=== PATIENT | female | born 1940 | race Caucasian/White ===

== ENCOUNTER 2016-10-19 11:03 | Emergency (ER) | payer OTHER, MEDICARE ==
[~2016-10-19] VITALS: Ht 162.6 cm; Wt 87.5 kg
[~2016-10-19 11:03] MED LIST: ASPI-391 PO; ATV/1 PO; CHOL100010 PO; COEN1CAP17 PO; CRG25 PO; DIPH1TAB87 PO; GABA800T PO; LPT40 PO; LSN40 PO; MAGN1CAP2 PO; METF-384 PO; METF1000 PO; NAPR1TAB9 PO; OMEGCAP2 PO; OMEP20TA14 PO; SALONPAS TOP; VALE250C2 PO
[2016-10-19 11:13] VITALS: TEMP 36.9; Ht 162.6 cm; Wt 87.5 kg
--- NOTE | 2016-10-19 12:04 | DIAGNOSTIC IMAGING REPORT ---
LEFT HAND 3 VIEWS HISTORY: Left hand pain. COMPARISON: None. FINDINGS: There is no fracture or dislocation. Mild soft tissue swelling at the fifth digit. 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 No radiopaque foreign bodies. IMPRESSION: No fractures. Electronically signed by: Ori Adhikari M.D. 10/19/2016 12:01 PM Dictated Date/Time: 10/19/2016 12:00 PM
--- NOTE | 2016-10-19 12:13 | EMERGENCY ROOM VISIT NOTE ---
ED Visit Note First contact with patient: 11:27 Fifth finger pain was fully evaluated by Dominic Mireles PA-C. Please see his note. I also independently evaluated the patient. X-rays reveal no fracture.
[2016-10-19 12:21] VITALS: BP 149/93; PULSE 81; O2SAT 95
--- NOTE | 2016-10-20 06:56 | EMERGENCY ROOM VISIT NOTE ---
ED Visit Note First contact with patient: 11:27 Chief Complaint: Left little finger pain. History of Present Illness: Ms. Vargas is a 75-year-old white female who ambulates into the ED accompanied by her complaining of left little finger pain at the DIP joint and distal phalanx. Patient reports yesterday she accidentally caught her finger in a door frame while closing a door. Since that time she reports she's been having a throbbing discomfort from the DIP joint extending distally through the distal phalanx of the left little finger. She also reports that she has noted that the finger has been turning black and blue. She rates her throbbing discomfort 2/10. The pain is nonradiating. The pain worsens with palpation in all movements of the DIP joint. She has not identified any alleviating factors related to the pain. She reports she has not taken any medications for pain prior to arrival at the hospital. Associated with her pain she reports there is a mild tingling sensation in the distal phalanxes. She denies any associated symptoms including other finger pain, previous significant injuries or surgeries. Review of Systems: As noted above in history of present illness. Past Medical History: Diabetes, hypertension, gastric reflux, status post hysterectomy and unspecified back surgery. Current Medications: Medications Dose Route/Sig Max Daily Dose Days Date Category Benadryl Allergy (Diphenhydramine Hcl) 25 Mg Tab 1 Tab PO QAM PRN 02/21/16 Reported Valerian (Valerian (Valeriana Officinali) 250 Mg Cap 2 Cap PO QAM 02/21/16 Reported Aleve (Naproxen) 220 Mg Tab 2 Tabs PO BID 02/21/16 Reported Ativan (Lorazepam) 1 Mg Tab 2 Tab PO QAM PRN 02/21/16 Reported Excedrin Extra Strength (Obglyiz-Xomlsktjsyvvh-Wjeeajmb) 1 Tab Tab 2 Tab PO BID PRN 02/21/16 Reported Vitamin D (Cholecalciferol) 1,000 Inter.unit Tab 1,000 Inter.unit PO QAM 02/21/16 Reported Neurontin (Gabapentin) 800 Mg Tab 800 Mg PO BID 02/21/16 Reported Lisinopril 40 Mg Tab 1 Tab PO QAM 02/21/16 Reported Co Q 10 (Coenzyme Q10 (Ubidecarenone)) 100 Mg Cap 1 Cap PO QAM 01/04/16 Reported Fish Oil ([place]-3 Fatty Acids) 1 Cap Cap 2,400 Mg PO QAM 10/15/13 Reported Glucophage (Metformin Hcl) 1,000 Mg Tab 500 Mg PO W/LUNCH 10/15/13 Reported Prilosec Otc (Omeprazole Magnesium) 20 Mg Tab 20 Mg PO QAM 10/15/13 Reported Carvedilol 25 Mg Tab 25 Mg PO BID 10/15/13 Reported Glucophage (Metformin Hcl) 1,000 Mg Tab 1,000 Mg PO BIDM 10/15/13 Reported Atorvastatin Calcium (Atorvastatin) 40 Mg Tab 1 Tab PO QAM 10/15/13 Reported Allergies to Medications: Oxycodone. Social History: Patient is currently retired; she lives with her and feels safe in her home environment; she denies tobacco and alcohol use. Physical Examination: Vital Signs: Date Time Temp Pulse Resp B/P Pulse Ox O2 Delivery O2 Flow Rate FiO2 10/19/16 12:21 81 149/93 95 10/19/16 11:13 36.9 56 20 126/64 96 Room Air GENERAL: 75-year-old female in mild distress due to pain, nontoxic-appearing, afebrile and hemodynamically stable. NEUROLOGICAL: Awake, alert and oriented to person, place and time. Answering questions appropriately and following commands. Good hand eye coordination. SKIN: Warm, dry and pink. Left Little Finger: Over the posterior aspect of the DIP joint of the finger there is a small superficial laceration measuring less than 1 cm. Throughout the distal phalanx there is a contusion on both the anterior and posterior aspect. LEFT HAND: No gross bony deformity. Soft tissue injuries as noted above under SKIN. Mild tenderness over the DIP joint and the distal phalanx without palpable bony deformity or crepitus. She had difficulty flexing and extending the DIP joint because of pain. Capillary refill was brisk. There is no subungual hematoma. She was able to distinguish light sensations throughout the distal phalanx. The rest of the finger was normal with no pain in the MCP or PIP joint. No other palpable tenderness throughout the hand. The rest of the hand was warm and pink and capillary refill is brisk. ED Course: Patient is assessed as noted above. Patient was offered pain medication and refused. Left hand x-rays: Were read by myself and the radiologist showing no acute fractures. Patient superficial laceration was cleansed with antibacterial soap and water and a bacitracin dressing was applied. Then the entire finger was placed in a metal splint. Patient's case was reviewed with Dr. Clay; he independently assessed the patient we agreed on diagnostic approach, treatment, disposition and plan. Patient were educated about tonight's findings and instructed on her treatment plan; they verbalizes understanding and agreement with the plan. Clinical Impression: Left Little finger contusion and superficial laceration. Disposition: Patient discharged home in stable condition accompanied by her ; prior to departure she was reassessed and subjectively reported that she was feeling worse and rated her discomfort 5/10. Plan: Wound care, signs of infection and comfort measures were discussed with the patient and her . Patient was encouraged to follow-up with her family physician for recheck in 4- 5 days. Patient was encouraged return the ED for any signs of infection, uncontrolled pain, finger numbness/weakness or any new/concerning symptoms.
[2017-04-15] MEDS ORDERED: [UNRECOGNIZED DRUG - CODE] PO (13:30)
== END 2016-10-19 12:22 | disposition home or self-care (01) ==
LOC: C.EDB 11:04 → C.EDD 12:22
DX: S60.00XA Contusion of unspecified finger without damage to nail, initial encounter (principal); S60.417A Abrasion of left little finger, initial encounter; W23.0XXA Caught, crushed, jammed, or pinched between moving objects, initial encounter; E11.9 Type 2 diabetes mellitus without complications; I10 Essential (primary) hypertension; K21.9 Gastro-esophageal reflux disease without esophagitis; Z79.899 Other long term (current) drug therapy

== ENCOUNTER 2017-04-09 17:44 | Emergency (ER) | payer OTHER, MEDICARE ==
[~2017-04-09 17:44] MED LIST changes: +DIPH1TAB PO; -DIPH1TAB87 PO; -MAGN1CAP2 PO; -SALONPAS TOP
[2017-04-09 17:50] VITALS: Ht 160 cm
--- NOTE | 2017-04-09 18:44 | EMERGENCY ROOM VISIT NOTE ---
History First contact with patient: 18:43 Chief Complaint: ABNORMAL LABS Stated Complaint: HIGH POTASSIUM- REFERRED History of Present Illness The patient is a 76 year old female with a history of HTN and DMI who presents to the Emergency Room after referral from from PCP for a potassium of 6.5. The patient states that she denies any chest pain, SOB, fever, abdominal pain. She has never had an elevated potassium in the past and has no history of any CKD. 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 She notes her sugar has been running in the mid 200s recently. Review of Systems A 10 point review of systems was completed and negative aside from above Past Medical/Surgical History Medical Problems: (1) Diabetes (2) GERD (gastroesophageal reflux disease) (3) Hypertension (4) Kidney stones Surgical Problems: (1) History of back surgery (2) Hx of colonoscopy with polypectomy Family History FHx: diabetes FHx: heart disease FHx: hypertension Social History Smoking Status: Never Smoker Alcohol Use: none Drug Use: none Marital Status: Housing Status: lives with family Occupation Status: retired Current/Historical Medications Scheduled Atorvastatin (Lipitor), 40 MG PO DAILY Carvedilol (Carvedilol), 25 MG PO BID Cholecalciferol (Vitamin D3), 1 TAB PO DAILY Coenzyme Q10 (Ubidecarenone) (Co Q 10), 1 CAP PO QAM Dicyclomine Hcl (Bentyl), 10 MG PO QID Gabapentin (Neurontin), 800 MG PO TID Lisinopril (Lisinopril), 1 TAB PO QAM Lorazepam (Ativan), 1 TAB PO TID Metformin Hcl (Glucophage), 1,000 MG PO BIDM Metformin Hcl (Glucophage), 500 MG PO W/LUNCH Naproxen (Aleve), 2 TABS PO BID [place]-3 Fatty Acids (Fish Oil), 2 CAP PO QAM Omeprazole Magnesium (Prilosec Otc), 20 MG PO QAM Valerian (Valeriana Officinali (Valerian), 2 CAP PO QAM Scheduled PRN Zeluncc-Atvlrithyaeqc-Cfoffify (Excedrin Extra Strength), 2 TAB PO BID PRN for Pain Diphenhydramine Hcl (Benadryl Allergy), 1 TAB PO QAM PRN for ALLERGIES Allergies oxycodone Physical Exam Vital Signs Date Time Temp Pulse Resp B/P (MAP) Pulse Ox O2 Delivery O2 Flow Rate FiO2 04/09/17 21:42 162/75 04/09/17 21:36 132/82 04/09/17 21:35 96 18 148/78 97 04/09/17 21:12 82 20 189/80 97 Room Air 04/09/17 17:50 36.9 82 20 158/80 94 Room Air Physical Exam General: ambulatory however requires assistance, not in acute distress Skin: no rashes noted, no suspicious lesions, no areas of inflammations/ lacerations/ erythema noted CVS: S1/ S2 noted, RRR, no rubs/ murmurs noted, no cyanosis RVS: Clear throughout bilaterally, not in acute respiratory distress, no wheezing/ rales/ crackles noted ENT: no erythema/ injection/ ulcerations noted in the pharynx, no lymphadenopathy, dentures noted Neck: e, inspection WNL, full ROM of neck ABD: BSx4, no pain/ tenderness on palpation, no organomegaly MSK: inspection of all limbs WNL, motor intact in all limbs, no swelling/ pain on palpation of joints NVS: PERRL, EOMI Lymph: No lymphadenopathy palpable Medical Decision & Procedures Laboratory Results 04/09/17 19:05 Red Blood Count 4.41, Mean Corpuscular Volume 86.6, Mean Corpuscular Hemoglobin 27.7, Mean Corpuscular Hemoglobin Concent 31.9, Mean Platelet Volume 10.2, Neutrophils (%) (Auto) 47.1, Lymphocytes (%) (Auto) 33.8, Monocytes (%) (Auto) 8.8, Eosinophils (%) (Auto) 9.5, Basophils (%) (Auto) 0.4, Neutrophils # (Auto) 3.58, Lymphocytes # (Auto) 2.57, Monocytes # (Auto) 0.67, Eosinophils # (Auto) 0.72, Basophils # (Auto) 0.03 04/09/17 19:05 Test 04/09/17 19:05 White Blood Count 7.60 K/uL (4.8-10.8) Red Blood Count 4.41 M/uL (4.2-5.4) Hemoglobin 12.2 g/dL (12.0-16.0) Hematocrit 38.2 % (37-47) Mean Corpuscular Volume 86.6 fL (80-100) Mean Corpuscular Hemoglobin 27.7 pg (25-34) Mean Corpuscular Hemoglobin Concent 31.9 g/dl (32-36) Platelet Count 224 K/uL (130-400) Mean Platelet Volume 10.2 fL (7.4-10.4) Neutrophils (%) (Auto) 47.1 % Lymphocytes (%) (Auto) 33.8 % Monocytes (%) (Auto) 8.8 % Eosinophils (%) (Auto) 9.5 % Basophils (%) (Auto) 0.4 % Neutrophils # (Auto) 3.58 K/uL (1.4-6.5) Lymphocytes # (Auto) 2.57 K/uL (1.2-3.4) Monocytes # (Auto) 0.67 K/uL (0.11-0.59) Eosinophils # (Auto) 0.72 K/uL (0-0.5) Basophils # (Auto) 0.03 K/uL (0-0.2) RDW Standard Deviation 48.0 fL (36.4-46.3) RDW Coefficient of Variation 15.2 % (11.5-14.5) Immature Granulocyte % (Auto) 0.4 % Immature Granulocyte # (Auto) 0.03 K/uL (0.00-0.02) Anion Gap 8.0 mmol/L (3-11) Estimated GFR () 81.1 Estimated GFR (Non- 70.0 BUN/Creatinine Ratio 24.7 (10-20) Calcium Level 9.4 mg/dl (8.5-10.1) Magnesium Level 1.6 mg/dl (1.8-2.4) Medications Administered Medications (Trade) Dose Ordered Sig/Jose Route Start Time Stop Time Status Last Admin Dose Admin Hydralazine HCl (HydrALAZINE INJ) 10 mg NOW ONCE IV. 04/09/17 21:15 04/09/17 21:16 DC 04/09/17 21:00 10 MG Hydralazine HCl (HydrALAZINE INJ) 10 mg NOW STAT IV. 04/09/17 21:19 04/09/17 21:20 DC 04/09/17 21:18 10 MG ECG Indication: other Rate (beats per minute): 77 Rhythm: normal sinus Findings: no acute ischemic change, no ectopy Change: apr 2016- compared to previous no PVC noted ED Course 1844: Patient assessed and evaluated by resident 1999: Discussed results with patient and agreeable to d/c 2029: Contacted by RN that systolic bp is > 200 prior to discharge; Hydralazine 10 mg IV ordered 2114: Improvement of systolic to 189, repeat hydralazine 10 mg IV x 1 2144: Reassessment of systolic bp is 162, discharged home as discussed previously with emphasis on bp check Medical Decision Differential diagnosis includes but is not limited to Hyperkalemia secondary to DKA, VALERIY, hemolysis of blood specimen. This is a 76 yo f that is here for evaluation for Hyperkalemia. The patient's blood was redrawn as results could have been hemolyze. It was reassuring as the EKG did not reveal any peaked T waves. The CBC did not reveal any anemia or leukocytosis. The BMP was also reassuring as there was no VALERIY noted and the patient's K was actually 4.9. No intervention needed at this time. We discussed discharge and patient was agreeable. She will be following up with PCP this week. Blood Pressure Screening Patient's blood pressure: Elevated blood pressure Blood pressure disposition: Referred to PCP Impression Primary Impression: Hyperkalemia Additional Impression: HTN (hypertension) Departure Information Referrals Omar Hoff M.D. (MEDICAL) (PCP) Patient Instructions [facility] Problem Qualifiers
--- NOTE | 2017-04-09 19:24 | EMERGENCY ROOM VISIT NOTE ---
ED Visit Note First contact with patient: 18:43 Resident Physician Supervision Note: I interviewed and examined the patient. Discussed with Dr. Weathers and agree with findings and plan as documented in the note. Documented By: Onesimo Chavez Problem List Medical Problems: (1) Diabetes Status: Chronic (2) GERD (gastroesophageal reflux disease) Status: Chronic (3) Hypertension Status: Chronic (4) Kidney stones Status: Chronic Surgical Problems: (1) History of back surgery Status: Resolved (2) Hx of colonoscopy with polypectomy Status: Resolved Current/Historical Medications Scheduled Atorvastatin (Atorvastatin Calcium), 1 TAB PO QAM Carvedilol (Carvedilol), 25 MG PO BID Cholecalciferol (Vitamin D), 1,000 INTER.UNIT PO QAM Coenzyme Q10 (Ubidecarenone) (Co Q 10), 1 CAP PO QAM Gabapentin (Neurontin), 800 MG PO BID Lisinopril (Lisinopril), 1 TAB PO QAM Metformin Hcl (Glucophage), 1,000 MG PO BIDM Metformin Hcl (Glucophage), 500 MG PO W/LUNCH Naproxen (Aleve), 2 TABS PO BID [place]-3 Fatty Acids (Fish Oil), 2,400 MG PO QAM Omeprazole Magnesium (Prilosec Otc), 20 MG PO QAM Valerian (Valeriana Officinali (Valerian), 2 CAP PO QAM Scheduled PRN Sfpkikh-Lxdxpqmamotdw-Yewbojyp (Excedrin Extra Strength), 2 TAB PO BID PRN for Pain Diphenhydramine Hcl (Benadryl Allergy), 1 TAB PO QAM PRN for ALLERGIES Lorazepam (Ativan), 2 TAB PO QAM PRN for NERVE PAIN Allergies Coded Allergies: Oxycodone (Unverified Allergy, Unknown, SEDATION, 10/19/16) Vital Signs Date Time Temp Pulse Resp B/P (MAP) Pulse Ox O2 Delivery O2 Flow Rate FiO2 04/09/17 17:50 36.9 82 20 158/80 94 Room Air Laboratory Results Test 04/09/17 19:05 Departure Information Referrals Omar Hoff M.D. (MEDICAL) (PCP) Patient Instructions [facility]
[2017-04-09] MEDS ORDERED: DICY10CA55 PO (19:47)
[2017-04-09] MEDS ORDERED: CHOL1000 PO (19:47)
[2017-04-09] MEDS ORDERED: ATOR-24 PO (19:47)
[2017-04-09 19:48] LABS: POTASSIUM 4.9 mmol/L (3.5-5.1); SODIUM 141 mmol/L (136-145)
[2017-04-09 19:50] LABS: MAGNESIUM 1.6 mg/dl (1.8-2.4)
[2017-04-09 19:51] LABS: BASO % 0.4 %; BASO ABS # 0.03 K/uL (0-0.2); BLOOD UREA NITROGEN 20 mg/dl (7-18); BUN/CREATININE RATIO 24.7 (10-20); CALCIUM 9.4 mg/dl (8.5-10.1); CARBON DIOXIDE 26 mmol/L (21-32); CHLORIDE 107 mmol/L (98-107); COMPLETE YES; CREATININE 0.82 mg/dl (0.60-1.20); EOS % 9.5 %; GLUCOSE 108 mg/dl (70-99); HEMATOCRIT 38.2 % (37-47); IG% 0.4 %; LYMPH % 33.8 %; LYMPH ABS # 2.57 K/uL (1.2-3.4); MEAN CELL VOLUME 86.6 fL (80-100); MEAN CORPUSCULAR HEMOGLOBIN 27.7 pg (25-34); MEAN CORPUSCULAR HGB CONC 31.9 g/dl (32-36); MEAN PLATELET VOLUME 10.2 fL (7.4-10.4); MONO % 8.8 %; NEUT % 47.1 %; PLATELET COUNT 224 K/uL (130-400); RED BLOOD COUNT 4.41 M/uL (4.2-5.4)
[2017-04-09] MEDS ORDERED: HydrALAZINE HCL 20 MG/ML VIAL IV. STA ×2 (20:31→21:19)
[2017-04-09] MEDS ORDERED: HydrALAZINE HCL 20 MG/ML VIAL IV. ONE (21:15)
[2017-04-09] MEDS ORDERED: ADVIN10/60 INH (22:00)
[2017-04-09 22:03] VITALS: BP 162/75; PULSE 96; TEMP 36.9; O2SAT 97
[2017-04-15] MEDS ORDERED: [UNRECOGNIZED DRUG - CODE] PO (13:30)
== END 2017-04-09 22:04 | disposition home or self-care (01) ==
LOC: C.EDB 17:46 → C.EDA 22:04
DX: E87.5 Hyperkalemia (principal); I10 Essential (primary) hypertension; E11.43 Type 2 diabetes mellitus with diabetic autonomic (poly)neuropathy; Z87.442 Personal history of urinary calculi; Z83.3 Family history of diabetes mellitus; Z82.49 Family history of ischemic heart disease and other diseases of the circulatory system; Z79.899 Other long term (current) drug therapy

== ENCOUNTER → 2017-05-21 | Day surgery (SDC) | payer OTHER, MEDICARE ==
[2017-04-15 13:26] VITALS: Ht 160 cm; Wt 90.0 kg
[~2017-05-21] VITALS: Ht 160 cm; Wt 90.0 kg
[~2017-05-21] MED LIST changes: +500ML BSS 0.3ML EPI 1:1000PF IRRIG ONE; +ACETAMINOPHEN 325 MG TAB PO PRN; +AMVISC PLUS 0.8ML SYRINGE INT OCU ONE; +ATOR-24 PO; +ATROPINE SULFATE 0.1 MG/ML 5ML SYR IV PRN; +BSS FLUSH ONE; +CHOL1000 PO; -CHOL100010 PO; +DICY10CA55 PO; -DIPH1TAB PO; +DIPH1TAB87 PO; +ENDOCOAT 0.85ML SYRINGE INT OCU ONE; +EpHEDrine SULFATE INJ 50 MG/ML AMP IV PRN; +EpINEphrine INJ 1MG/ML AMP 1 MG/ML AMP ONE; +LACTATED RINGER'S 1000ML 500 ML IV SCH; +LIDOCAINE 4% OP SOLN DROP CHARGE ONE; +LIDOCAINE 4% OP SOLN DROP CHARGE OPR SCH; +LIDOCAINE HCL 1% MPF 2 ML VIAL ONE; -LPT40 PO; +MIDAZOLAM HCL 1 MG/ML 2ML VIAL ONE; +MIX: 4ML BSS 1ML EPI 1:1000 PF TOP ONE; +MOXIFLOXACIN OPH SOLN PER DROP CHARGE ONE; +ONDANSETRON INJ 2 MG/ML 2 ML VIAL IV PRN; +POVIDONE-IODINE OP SOLN 30 ML BTL ONE; +PROPARACAINE 0.5% OP SOLN PER DROP CHARGE OPR SCH; +TOBRAMYCIN/DEXAMETHASONE OPH OINT PER APPLN CHARGE ONE; -VALE250C2 PO
--- NOTE | 2017-05-21 08:38 | History & Physical Bridge - SC ---
H&P Re-Evaluation Bridge Note: I have examined the patient, reviewed the History & Physical and in the interval since the performance of the History & Physical I have noted the following changes of clinical significance: No changes noted
[2017-05-21] MEDS: PHENYLEPHRINE HCL 2.5% OP SOLN PER DROP CHARGE OPR SCH ×3 (08:42→08:52)
[2017-05-21] MEDS: TROPICAMIDE 1% OP SOLN PER DROP CHARGE OPR SCH ×3 (08:43→08:53)
[2017-05-21] MEDS: CYCLOPENTOLATE HCL 1% OP SOLN PER DROP CHARGE OPR SCH ×3 (08:44→08:54)
[2017-05-21] MEDS: MOXIFLOXACIN OPH SOLN PER DROP CHARGE OPR SCH ×3 (08:45→08:55)
[2017-05-21 09:46] VITALS: TEMP 36.5
--- NOTE | 2017-05-21 09:48 | [facility] Post Operative Brief Note ---
Immediate Operative Summary Operative Date May 21, 2017. Pre-Operative Diagnosis Cataract Right Eye Post-Operative Diagnosis Same Procedure(s) Performed Right Cataract Phacoemulsification With Intraocular Lens Implant Surgeon Dr. Lane Manager Supply Surgeon(s) None Estimated Blood Loss 0 Findings right cataract Specimens None Complication(s) None Disposition
--- NOTE | 2017-05-21 09:49 | [facility] Operative Report ---
Operative Report Date of Service May 21, 2017. Operative Report DATE OF OPERATION: 05/21/17 PREOPERATIVE DIAGNOSIS: Senile nuclear cataract, right eye POSTOPERATIVE DIAGNOSIS: Senile nuclear cataract, right eye PROCEDURE PERFORMED: Phacoemulsification with intraocular lens implantation, right eye SURGEON: Dr. Dez Lane ANESTHESIA: Topical with 1% intracameral lidocaine and monitored anesthesia care COMPLICATIONS: None DESCRIPTION OF PROCEDURE: After positively identifying the patient both verbally and by wristband in the preoperative area, the right eye was marked as the operative eye. The patient was then brought back to the operating room by the anesthesia and nursing staff where they were given a drop of Lidocaine and betadine into the operative eye. They were then sterilely prepped and draped in the standard fashion typical for ophthalmic surgery. Steri-strips were placed along the upper eyelids to keep the lashes back, and a lid speculum was placed into the operative eye. At this point, a documented time out was performed with members of the ophthalmology, nursing, and anesthesia staffs all agreeing upon the correct patient, correct location for surgery, correct procedure, and correct type and power of intraocular lens to be implanted. The microscope was then swung into position. First, a paracentesis wound was made using a sideport blade. Then, in sequence, 1% preservative-free lidocaine followed by Endocoat viscoelastic was injected into the anterior chamber. Next , the main incision was made with a keratome blade in triplanar fashion. A sharp cystotome was introduced into the eye and used to create a tear in the anterior capsule, which was directed into a continuous curvilinear capsulorrhexis using Utrata forceps. Hydrodissection was then performed with BSS on a flat-tip cannula. Next, the phacoemulsification handpiece was introduced into the eye and used to remove the nucleus in a qzyozn-qox-lniwsmf fashion. This was done without complication and then the irrigation-aspiration handpiece was introduced into the eye and used to remove all remaining cortical and epinuclear material. Amvisc was then injected into the anterior chamber as well as into the capsular bag and using the lens injector system, an MX60 24.5 D lens, serial number [id number], and expiration date 10/2019 was injected into the capsular bag and rotated into the correct position. Next, the irrigation- aspiration handpiece was used to remove all remaining Amvisc. BSS was used to hydrate the main wound, and then BSS was injected into the paracentesis site to reach physiologic pressure and then the main wound was checked and found to be watertight. The patient was given drops of Vigamox and Tobradex ointment into the operative eye, and then the surrounding area was cleaned and dried. A clear plastic shield was placed over the eye and the patient was then sat up and taken from the operating room by the anesthesia staff having tolerated the procedure well and suffering no complications. DISPOSITION: The patient was returned to the recovery room in stable condition. I attest to the content of the Intraoperative Record and any orders documented therein. Any exceptions are noted below.
--- NOTE | 2017-05-21 09:50 | Discharge Instructions-SurgCtr ---
Discharge Instructions Date of Service May 21, 2017. Visit Reason for Visit: Cataract Right Eye Discharge Discharge Diagnosis / Problem: right cataract Discharge Goals Goal(s): Decrease discomfort, Improve function Activity Recommendations Activity Limitations: as noted below Anesthesia . Post Anesthesia Instructions: If you have had General Anesthesia or IV Sedation: * Do not drive today. * Resume driving when surgeon permits. * Do not make important decisions or sign legal documents today. * Call surgeon for: 1. Temperature elevations greater than 101 degrees F. 2. Uncontrollable pain. 3. Excessive bleeding. 4. Persistent nausea and vomiting. 5. Medication intolerance (nausea, vomiting or rash). * For nausea and vomiting use only clear liquids such as: tea, soda, bouillon until nausea subsides, then gradually increase diet as tolerated. * If you have any concerns or questions, call your surgeon's office. If physician is unavailable and it is an emergency, call 911 or go to the nearest emergency room. . Instructions / Follow-Up Instructions / Follow-Up ACTIVITY RECOMMENDATIONS: * Light activities. * You may walk outside, read, watch television. * You may notice redness on the white part of the eye and some blurry vision - this is normal. MEDICATIONS: Resume previous medications unless instructed otherwise by your surgeon. Start all eye drops at 12 pm today: * Eye drops (today): Prednisone - one drop in operative eye every 2 hours while awake Ofloxacin - one drop in operative eye every 2 hours while awake Ketorolac - one drop in operative eye 4 times daily SPECIAL CARE INSTRUCTIONS: * Tape plastic shield over eye to sleep at night. Call your doctor at with any concerns or problems. FOLLOW UP VISIT: Follow-up with Dr Lane at [facility] as scheduled. Diet Recommendations Home Diet: no limitations Procedures Procedures Performed: Right Cataract Phacoemulsification With Intraocular Lens Implant Pending Studies Studies pending at discharge: no Medical Emergencies . Who to Call and When: Medical Emergencies: If at any time you feel your situation is an emergency, please call 911 immediately. . Non-Emergent Contact Non-Emergency issues call your: Surgeon . . "Provider Documentation" section prepared by Dez Lane. .
--- NOTE | 2017-05-21 10:03 | Anesthesia Progress Nt - [facility] ---
Anesthesia Post Op Note Date & Time May 21, 2017 at 10:03 Vital Signs Pain Intensity: 0 Vital Signs Past 12 Hours Date Time Temp Pulse Resp B/P (MAP) Pulse Ox O2 Delivery O2 Flow Rate FiO2 05/21/17 09:46 36.5 73 14 130/73 (92) 99 Room Air 05/21/17 08:35 36.6 72 22 127/84 (98) 97 Room Air Notes Mental Status: alert / awake / arousable, participated in evaluation Pt Amnestic to Procedure: Yes Nausea / Vomiting: adequately controlled Pain: adequately controlled Airway Patency, RR, SpO2: stable & adequate BP & HR: stable & adequate Hydration State: stable & adequate Anesthetic Complications: no major complications apparent
[2017-05-21 10:12] VITALS: BP 147/82; PULSE 77; O2SAT 97
== END | disposition home or self-care (01) ==
LOC: X.SURG 08:16
PROVIDERS: ATTEND Ophthalmology
DX: E11.36 Type 2 diabetes mellitus with diabetic cataract (principal); H25.11 Age-related nuclear cataract, right eye; I10 Essential (primary) hypertension; F32.9 Major depressive disorder, single episode, unspecified; F41.9 Anxiety disorder, unspecified; Z88.5 Allergy status to narcotic agent; M19.90 Unspecified osteoarthritis, unspecified site; Z79.899 Other long term (current) drug therapy

== ENCOUNTER → 2017-06-04 | Day surgery (SDC) | payer OTHER, MEDICARE ==
[2017-05-27 14:08] VITALS: Ht 160 cm; Wt 90.0 kg
[~2017-06-04] VITALS: Ht 160 cm; Wt 90.0 kg
[~2017-06-04] MED LIST changes: -EpHEDrine SULFATE INJ 50 MG/ML AMP IV PRN; +LIDOCAINE 4% OP SOLN DROP CHARGE OPL SCH; -LIDOCAINE 4% OP SOLN DROP CHARGE OPR SCH; -ONDANSETRON INJ 2 MG/ML 2 ML VIAL IV PRN; +PROPARACAINE 0.5% OP SOLN PER DROP CHARGE OPL SCH; -PROPARACAINE 0.5% OP SOLN PER DROP CHARGE OPR SCH
[2017-06-04] MEDS: PHENYLEPHRINE HCL 2.5% OP SOLN PER DROP CHARGE OPL SCH ×3 (09:59→10:12)
[2017-06-04] MEDS: TROPICAMIDE 1% OP SOLN PER DROP CHARGE OPL SCH ×3 (10:00→10:14)
[2017-06-04] MEDS: CYCLOPENTOLATE HCL 1% OP SOLN PER DROP CHARGE OPL SCH ×3 (10:01→10:15)
[2017-06-04] MEDS: MOXIFLOXACIN OPH SOLN PER DROP CHARGE OPL SCH ×3 (10:03→10:16)
--- NOTE | 2017-06-04 10:57 | [facility] Post Operative Brief Note ---
Immediate Operative Summary Operative Date Jun 04, 2017. Pre-Operative Diagnosis Left eye cataract Post-Operative Diagnosis Same as preop Procedure(s) Performed Left Cataract Phacoemulsification with Intraocular Lens Implant Surgeon Dr. Lane Corporate Director Surgeon(s) None Estimated Blood Loss 0 mL Findings left cataract Specimens None Complication(s) None Disposition
--- NOTE | 2017-06-04 10:58 | [facility] Operative Report ---
Operative Report Date of Service Jun 04, 2017. Operative Report DATE OF OPERATION: 06/04/17 PREOPERATIVE DIAGNOSIS: Senile nuclear cataract, left eye POSTOPERATIVE DIAGNOSIS: Senile nuclear cataract, left eye PROCEDURE PERFORMED: Phacoemulsification with intraocular lens implantation, left eye SURGEON: Dr. Dez Lane ANESTHESIA: Topical with 1% intracameral lidocaine and monitored anesthesia care COMPLICATIONS: None DESCRIPTION OF PROCEDURE: After positively identifying the patient both verbally and by wristband in the preoperative area, the left eye was marked as the operative eye. The patient was then brought back to the operating room by the anesthesia and nursing staff where they were given a drop of Lidocaine and betadine into the operative eye. They were then sterilely prepped and draped in the standard fashion typical for ophthalmic surgery. Steri-strips were placed along the upper eyelids to keep the lashes back, and a lid speculum was placed into the operative eye. At this point, a documented time out was performed with members of the ophthalmology, nursing, and anesthesia staffs all agreeing upon the correct patient, correct location for surgery, correct procedure, and correct type and power of intraocular lens to be implanted. The microscope was then swung into position. First, a paracentesis wound was made using a sideport blade. Then, in sequence, 1% preservative-free lidocaine followed by Endocoat viscoelastic was injected into the anterior chamber. Next , the main incision was made with a keratome blade in triplanar fashion. A sharp cystotome was introduced into the eye and used to create a tear in the anterior capsule, which was directed into a continuous curvilinear capsulorrhexis using Utrata forceps. Hydrodissection was then performed with BSS on a flat-tip cannula. Next, the phacoemulsification handpiece was introduced into the eye and used to remove the nucleus in a [id number] fashion. This was done without complication and then the irrigation-aspiration handpiece was introduced into the eye and used to remove all remaining cortical and epinuclear material. Amvisc was then injected into the anterior chamber as well as into the capsular bag and using the lens injector system, an MX60 24.5 D lens, serial number [id number], and expiration date 10/2019 was injected into the capsular bag and rotated into the correct position. Next, the irrigation- aspiration handpiece was used to remove all remaining Amvisc. BSS was used to hydrate the main wound, and then BSS was injected into the paracentesis site to reach physiologic pressure and then the main wound was checked and found to be watertight. The patient was given drops of Vigamox and Tobradex ointment into the operative eye, and then the surrounding area was cleaned and dried. A clear plastic shield was placed over the eye and the patient was then sat up and taken from the operating room by the anesthesia staff having tolerated the procedure well and suffering no complications. DISPOSITION: The patient was returned to the recovery room in stable condition. I attest to the content of the Intraoperative Record and any orders documented therein. Any exceptions are noted below.
--- NOTE | 2017-06-04 10:59 | Discharge Instructions-SurgCtr ---
Discharge Instructions Date of Service Jun 04, 2017. Visit Reason for Visit: Left Cataract Discharge Discharge Diagnosis / Problem: left cataract Discharge Goals Goal(s): Decrease discomfort, Improve function Medications Stopped Medications Name(s): HELD METFORMIN FOR 48 HOURS Activity Recommendations Activity Limitations: as noted below Anesthesia . Post Anesthesia Instructions: If you have had General Anesthesia or IV Sedation: * Do not drive today. * Resume driving when surgeon permits. * Do not make important decisions or sign legal documents today. * Call surgeon for: 1. Temperature elevations greater than 101 degrees F. 2. Uncontrollable pain. 3. Excessive bleeding. 4. Persistent nausea and vomiting. 5. Medication intolerance (nausea, vomiting or rash). * For nausea and vomiting use only clear liquids such as: tea, soda, bouillon until nausea subsides, then gradually increase diet as tolerated. * If you have any concerns or questions, call your surgeon's office. If physician is unavailable and it is an emergency, call 911 or go to the nearest emergency room. . Instructions / Follow-Up Instructions / Follow-Up ACTIVITY RECOMMENDATIONS: * Light activities. * You may walk outside, read, watch television. * You may notice redness on the white part of the eye and some blurry vision - this is normal. MEDICATIONS: Resume previous medications unless instructed otherwise by your surgeon. Start all eye drops at 1 pm today: * Eye drops (today): Prednisone - one drop in operative eye every 2 hours while awake Ofloxacin - one drop in operative eye every 2 hours while awake Ketorolac - one drop in operative eye 4 times daily SPECIAL CARE INSTRUCTIONS: * Tape plastic shield over eye to sleep at night. Call your doctor at with any concerns or problems. FOLLOW UP VISIT: Follow-up with Dr Lane at [facility] as scheduled. Diet Recommendations Home Diet: no limitations Procedures Procedures Performed: Left Cataract Phacoemulsification with Intraocular Lens Implant Pending Studies Studies pending at discharge: no Medical Emergencies . Who to Call and When: Medical Emergencies: If at any time you feel your situation is an emergency, please call 911 immediately. . Non-Emergent Contact Non-Emergency issues call your: Surgeon . . "Provider Documentation" section prepared by Dez Lane. .
[2017-06-04 11:00] VITALS: TEMP 36.6
--- NOTE | 2017-06-04 11:29 | Anesthesia Progress Nt - [facility] ---
Anesthesia Post Op Note Date & Time Jun 04, 2017 at 11:29 Vital Signs Pain Intensity: 0 Vital Signs Past 12 Hours Date Time Temp Pulse Resp B/P (MAP) Pulse Ox O2 Delivery O2 Flow Rate FiO2 06/04/17 11:00 36.6 78 16 179/95 (123) 98 Room Air 06/04/17 09:28 36.8 77 18 174/94 (120) 95 Room Air Notes Mental Status: alert / awake / arousable, participated in evaluation Pt Amnestic to Procedure: Yes Nausea / Vomiting: adequately controlled Pain: adequately controlled Airway Patency, RR, SpO2: stable & adequate BP & HR: stable & adequate Hydration State: stable & adequate Anesthetic Complications: no major complications apparent
[2017-06-04 11:31] VITALS: BP 183/64; PULSE 71; O2SAT 99
== END | disposition home or self-care (01) ==
LOC: X.SURG 09:15
PROVIDERS: ATTEND Ophthalmology
DX: H25.12 Age-related nuclear cataract, left eye (principal); E11.36 Type 2 diabetes mellitus with diabetic cataract; I10 Essential (primary) hypertension; E78.00 Pure hypercholesterolemia, unspecified; E66.9 Obesity, unspecified; F41.9 Anxiety disorder, unspecified; Z88.5 Allergy status to narcotic agent; Z98.890 Other specified postprocedural states; Z98.41 Cataract extraction status, right eye

== ENCOUNTER 2019-05-12 16:51 | Inpatient (IN) ==
[2019-05-12] MEDS ORDERED: KETOROLAC TROMETHAMINE 15 MG/ML VIAL IV STA ×2 (17:09→18:48)
[2019-05-12] MEDS ORDERED: ONDANSETRON INJ 2 MG/ML 2 ML VIAL IV STA (17:09)
[2019-05-12] MEDS ORDERED: SODIUM CHLORIDE 0.9% 1000ML 1,000 ML IV ONE (17:09)
[2019-05-12 17:36] LABS: Basophils # (auto) 0.05 K/uL (0-0.2); Basophils % (auto) 0.5 %; Eosinophils # (auto) 1.05 K/uL (0-0.5); Eosinophils % (auto) 10.9 %; Hematocrit (blood only) 33.8 % (37-47); Hemoglobin 9.9 g/dL (12.0-16.0); Immature Granulocytes # (auto) 0.04 K/uL (0.00-0.02); Immature Granulocytes % (auto) 0.4 %; Lymphocytes # (auto) 2.71 K/uL (1.2-3.4); Lymphocytes % (auto) 28.1 %; Mean Corpuscular Hemoglobin 22.7 pg (25-34); Mean Corpuscular Hgb Conc 29.3 g/dL (32-36); Mean Corpuscular Volume 77.5 fL (80-100); Mean Platelet Volume 9.6 fL (7.4-10.4); Monocytes % (auto) 7.3 %; Neutrophils % (auto) 52.8 %; Platelet Count 244 K/uL (130-400); RDW Coefficient of Variation 17.4 % (11.5-14.5); RDW Standard Deviation 48.9 fL (36.4-46.3); Red Blood Count 4.36 M/uL (4.2-5.4); White Blood Count 9.65 K/uL (4.8-10.8)
[2019-05-12 17:53] LABS: Alanine Aminotransferase 26 U/L (12-78); Albumin Level 3.4 gm/dl (3.4-5.0); Aspartate Aminotransferase 24 U/L (15-37); Bilirubin Direct < 0.1 mg/dl (0-0.2); Blood Urea Nitrogen 21 mg/dl (7-18); Calcium 9.2 mg/dl (8.5-10.1); Carbon Dioxide 26 mmol/L (21-32); Chloride 111 mmol/L (98-107); Est GFR (African American) 51.5; Est GFR (Non-African American) 44.5; Glucose 131 mg/dl (70-99); Lipase 117 U/L (73-393); Sodium 141 mmol/L (136-145)
--- NOTE | 2019-05-12 17:53 | CT Scan Report ---
ABDOMEN AND PELVIS CT WITHOUT CONTRAST CT DOSE: 1476.83 mGycm HISTORY: Acute right lower quadrant and left flank pain llq l cva tenderness and rlq pain TECHNIQUE: Multiaxial CT images of the abdomen and pelvis were performed without contrast. A dose lo wering technique was utilized adhering to the principles of ALARA. COMPARISON STUDY: CT abdomen and pelvis 12/09/2018 FINDINGS: Bibasilar subpleural reticular opacities suggests fibrosis. There is a few subpleural nodular foci me asuring up to 4 mm within the left lung base which are likely benign. Subpleural cystic change with b ibasilar bronchial wall thickening. Calcified granuloma of the basal left lower lobe. There is no pne umatosis or pneumoperitoneum. Imaged inferior cardiac chambers are mildly enlarged with coronary jenifer rial calcifications. The gallbladder, unenhanced liver, spleen, and adrenal glands are unremarkable. Moderate generalized pancreatic atrophy. There are several nonobstructing bilateral renal calculi measuring up to approxim ately 4 mm. Moderate left-sided hydroureteronephrosis with perinephric and periureteral inflammatory stranding secondary to an obstructing 5 x 4 x 6 mm calculus of the distal left ureter approximately 4 cm proximal to the ureterovesicular junction. Multiple phleboliths of the pelvis. 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 Infrar enal abdominal aortic ectasia measures up to 2.9 cm. There is no adenopathy. There is no bowel obstruction or bowel wall thickening. Extensive colonic diverticulosis without acut e diverticulitis. Mild to moderate fecal retention. Appendix not visualized. Soft tissues are unremar kable. Degenerative changes of the spine, pelvis and hips. Mild stranding of the left inferior glutea l crease distribution. IMPRESSION: 1. Moderate left-sided hydroureteronephrosis secondary to an obstructing 5 x 4 x 6 mm calculus of the distal left ureter approximately 4 cm proximal to the ureterovesicular junction. 2. Nonobstructing bilateral nephrolithiasis. 3. No bowel obstruction or bowel wall thickening. 4. Colonic diverticulosis without acute diverticulitis. 5. Fibrosis of the lung bases. Electronically signed by: Juan Berg M.D. 05/12/2019 5:51 PM
[2019-05-12 17:56] LABS: Alkaline Phosphatase 75 U/L (45-117); Bilirubin,Total 0.2 mg/dl (0.2-1); Total Protein 6.9 gm/dl (6.4-8.2)
[2019-05-12] MEDS ORDERED: MoRPHine SULFATE 4 MG/ML 1 ML CARP\\VIAL IV STA (18:48)
[2019-05-12 19:02] LABS: Appearance Urine Cloudy (Clear); Bacteria Urine Automated 1+ (Negative); Bilirubin Urine Negative (Negative); Blood Urine 3+ (Negative); Color Urine Yellow; Epithelial Cell Urine Auto >30 /lpf (0-5); Glucose Urine UA Negative (Negative); Ketones Urine Trace (Negative); Leukocyte Esterase Urine Trace (Negative); Nitrite Urine Negative (Negative); Protein Urine 1+ (Negative); Specific Gravity Urine 1.033 (1.000-1.030); Urobilinogen Urine Negative (Negative)
[2019-05-12 19:22] LABS: RBC Urine Automated >30 /hpf (0-4)
--- NOTE | 2019-05-12 19:42 | History & Physical Report ---
Date of Service May 12, 2019 Assessment & Plan (1) Left ureteral calculus: (2) Hydronephrosis, left: Pt is 78 y/o F with PMH HTN, dyslipidemia, DM II, GERD, CKD III, diastolic dysfunction, LVH, h/o kidney stones presented with c/o LLQ pain today. C/O dysuria x 1 day. Denies fever/chills, N/V, hematuria In ER pt afebrile, P: 82, R: 20, BP: 198/83, 98% on RA. No leukocytosis, H/H: 9.9/33.8 (Hgb: 10 in 12/23), BUN: 21, Cr: 1.18 (baseline 0.9-1.0), GFR: 44.5. UA: possible infection CT Abd/Pelvis: Moderate left-sided hydroureteronephrosis secondary to an obstructing 5 x 4 x 6 mm calculus of the distal left ureter approximately 4 cm proximal to the ureterovesicular junction. Nonobstructing bilateral nephrolithiasis. No bowel obstruction or bowel wall thickening. Colonic diverticulosis without acute diverticulitis. Fibrosis of the lung bases. -In ER received 1L NSS bolus, Toradol total 30mg IV, Zofran, Morphine 4mg -Urine culture -Strain urine -Flomax HS -Rocephin -Morphine, hydrocodone prn pain -NPO midnight -Urology consult, Dr Bone recommends Plan on doing procedure tomorrow afternoon recommends clear fluids for breakfast tomorrow, then NPO. If pt would develop fever will need notified for urgent procedure -CBC, BMP in am (3) Hypertension: BP elevated in ER May be secondary to pain. Pt also needs PM dose BP meds -Continue carvedilol, lisinopril -Hydralazine prn SBP>160 (4) CKD (chronic kidney disease), stage III: Cr: 1.18. Baseline 0.9-1.0 -Monitor renal functions -Avoid nephrotoxic agents when possible (5) Diabetes: DM II A1c: 6.9 on 01/08/19 -Hold metformin -Novolog sliding scale per protocol (6) Dyslipidemia: -Continue statin (7) Diastolic dysfunction: 2015 echo with EF: 60%, grade 1 diastolic dysfunction, LVF -Monitor I&O's (8) GERD (gastroesophageal reflux disease): -Continue PPI DVT Prophylaxis -SCDs for now in case of procedure Full Code as per discussion with pt Follows with Dr House for routine care Pt was seen and care coordinated with Dr Kaufman. See addendum History of Present Illness Chief Complaint: LLQ abdominal pain Primary Care Provider: Case House MD Pt is 78 y/o F with PMH HTN, dyslipidemia, DM II, GERD, CKD III, diastolic dysfunction, LVH presented to ER with c/o LLQ pain today. Describes as sharp pain and rates 8/10 on pain scale. Denies nausea or vomiting. Reports dysuria x 1 day. Reports h/o kidney stones in past requiring surgical removal. Followed with Dr Bone in past. States 2 days ago had loose stools after drinking prune juice. No BM yesterday or today. Denies fever/chills, diaphoresis, hematuria, urinary frequency, urinary retention, AGUIAR, dizziness, syncope, vision changes, neck pain, CP, SOB, orthopnea, palpitations, cough, sore throat, choking, otalgia, rhinorrhea, paresthesias, weakness, extremity weakness, extremity edema, rashes. Allergies Allergy/AdvReac Type Severity Reaction Status Date / Time oxycodone Allergy Unknown SEDATION Unverified 05/12/19 18:40 Home Medications Home Medications Medication Instructions Recorded Confirmed Type carvedilol 25 mg PO BID #0 10/15/13 05/12/19 History metformin 1,000 mg PO QAM #0 10/15/13 05/12/19 History metformin 500 mg PO BID #0 10/15/13 05/12/19 History omega-3 fatty acids 2,000 mg PO DAILY #0 10/15/13 05/12/19 History omeprazole 20 mg PO BID #0 10/15/13 05/12/19 History coenzyme Q10 100 mg PO DAILY #0 01/04/16 05/12/19 History diphenhydramine HCl [Benadryl] 25 mg PO DAILY PRN #0 02/21/16 05/12/19 History gabapentin 800 mg PO TID #0 tab 02/21/16 05/12/19 History lisinopril 40 mg PO DAILY #0 02/21/16 05/12/19 History lorazepam 0.5 mg PO BID PRN #0 02/21/16 05/12/19 History atorvastatin 40 mg PO HS #0 04/09/17 05/12/19 History dicyclomine 10 mg PO QID PRN #0 04/09/17 05/12/19 History metronidazole [Metrogel] 1 applic TOPICAL BID PRN 12/09/18 05/12/19 History valerian root 100 mg PO DAILY 12/09/18 05/12/19 History cholecalciferol (vitamin D3) 50,000 unit PO MONTHLY 05/12/19 05/12/19 History magnesium chloride [Slow-Mag] 71.5 mg PO BID 05/12/19 05/12/19 History peg 400-propylene glycol [Systane 1 drp OPHTHALMIC (EYE) BID PRN 05/12/19 05/12/19 History Ultra] Past Med/Surg History Medical History Dyslipidemia (Chronic) CKD (chronic kidney disease), stage III (Chronic) Diastolic dysfunction (Chronic) Diabetes (Chronic) Hypertension (Chronic) Kidney stones (Chronic) GERD (gastroesophageal reflux disease) (Chronic) Hypomagnesemia (Chronic) Surgical History History of back surgery (Resolved) Hx of colonoscopy with polypectomy (Resolved) Family History Other Family history non-contributory Social History Preferred Language: Lithuanian marital status: Current Living Situation: Spouse current occupational status: retired Feels Safe at Home: Yes Smoking Status: Former smoker Hx Alcohol Use: No Hx Substance Use: No Review of Systems Review of Systems: All systems reviewed & are unremarkable except as noted in HPI & below Physical Exam Physical Exam: General: mild distress secondary to LLQ pain, obese Head: normocephalic, atraumatic Eyes: PERRL, EOM's intact, conjunctiva non-injected, anicteric ENT: normal inspection external ears, nose, mucous membranes moist Neck: supple, trachea midline Lungs: no respiratory distress, +rales bilateral bases CV: RRR, no murmur, no pretibial edema Abd: normal BS, soft, +tenderness to palpation LLQ, no rebound. No CVA tenderness to percussion at this time Ext: no cyanosis, no calf tenderness Neuro: A&O x 3, no focal deficits noted, normal affect Skin: warm, dry Results & Data Vital Signs (Past 12 Hours) Vital Signs Temp Pulse Pulse Resp BP BP Pulse Ox 05/12/19 19:29 85 18 195/98 H 96 05/12/19 18:50 88 24 197/126 H 95 05/12/19 16:54 36.5 C 82 20 198/83 H 98 Laboratory Results Short CBC 05/12/19 Range/Units 17:28 WBC 9.65 (4.8-10.8) K/uL Hgb 9.9 L (12.0-16.0) g/dL Hct 33.8 L (37-47) % Plt Count 244 (130-400) K/uL BMP 05/12/19 17:28 Sodium 141 Potassium 5.0 Chloride 111 H Carbon Dioxide 26 BUN 21 H Creatinine 1.18 Glucose 131 H Calcium 9.2 Liver Function 05/12/19 Range/Units 17:28 Total Bilirubin 0.2 (0.2-1) mg/dl Direct Bilirubin < 0.1 (0-0.2) mg/dl AST 24 (15-37) U/L ALT 26 (12-78) U/L Alkaline Phosphatase 75 (45-117) U/L Albumin 3.4 (3.4-5.0) gm/dl Urine 05/12/19 Range/Units 18:52 Urine Color Yellow Urine Appearance Cloudy A (Clear) Urine pH 5.0 (4.5-7.5) Ur Specific [place] 1.033 H (1.000-1.030) Urine Protein 1+ H (Negative) Urine Glucose (UA) Negative (Negative) Diagnostic Findings CT ABD/PELVIS: IMPRESSION: 1. Moderate left-sided hydroureteronephrosis secondary to an obstructing 5 x 4 x 6 mm calculus of the distal left ureter approximately 4 cm proximal to the ureterovesicular junction. 2. Nonobstructing bilateral nephrolithiasis. 3. No bowel obstruction or bowel wall thickening. 4. Colonic diverticulosis without acute diverticulitis. 5. Fibrosis of the lung bases. CXR: IMPRESSION: 1. Cardiomegaly with prominence of the pulmonary vasculature. Correlate clinically for evidence of mild congestive failure. 2. No airspace consolidation or large pleural effusion is identified. Code Status & VTE Plan VTE Prophylaxis Plan VTE Prophylaxis will be ordered: Yes Supervising Physician Co-Signing Physician Notes Attending Addendum: care coordinated with KAYLEE Owen please refer to her notes for full details, I agree with her notes patient seen and examined, records reviewed by myself as well on exam, patient seen resting in bed, just had IV morphine states pain is much better does report mild dysuria, no hematuria, no fever/chills denies chest pain, dyspnea no other symptoms VS noted and reviewed oriented x 3 , not in distress, speaks in sentences with no effort nor accessory muscle use normal rate, regular rhythm, no murmurs clear breath sounds bilaterally non distended, soft, nontender Mild CVA tenderness, left no bipedal edema, erythema, warmth no neuro deficits WBC 9.6 Hg 9[address] abdomen 1. Moderate left-sided hydroureteronephrosis secondary to an obstructing 5 x 4 x 6 mm calculus of the distal left ureter approximately 4 cm proximal to the ureterovesicular junction. 2. Nonobstructing bilateral nephrolithiasis. 3. No bowel obstruction or bowel wall thickening. 4. Colonic diverticulosis without acute diverticulitis. 5. Fibrosis of the lung bases. ASSESSMENT AND PLAN Left ureteral stone with hydroureteronephrosis PRN analgesics, gentle IV fluids in light of chronic diastolic CHF, tamsulosin Monitor renal function Discussed with Dr. Bone, recommended clear liquids for breakfast, after that n.p.o. except meds, for planned cystoscopy and stent placement around 4 PM She requests to be called if patient develops fever as patient will need to go to the OR urgently if patient is febrile Rule out UTI UA suggestive of possible UTI, patient also reports dysuria Follow-up urine cultures Cover with empiric ceftriaxone IV Hypertension Uncontrolled secondary to pain PRN hydralazine ordered Continue usual carvedilol and lisinopril other diagnoses and plan of care as per KAYLEE Owen notes Ash Kaufman MD
[2019-05-12 20:05] LABS: Partial Thromboplastin Ratio 0.8; Partial Thromboplastin Time 22.2 Seconds (21.0-31.0); Prothrombin Time 10.2 Seconds (9.0-12.0)
--- NOTE | 2019-05-12 20:16 | XRay Report ---
SINGLE VIEW CHEST CLINICAL HISTORY: Cough. Volume overload. FINDINGS: An AP, portable, upright chest radiograph is compared to study dated 04/26/2014. The examin ation is degraded by portable technique and patient rotation. The heart is enlarged noting atheroscle rotic calcification of the thoracic aorta. There is prominence of the pulmonary vasculature. Chronic interstitial changes are similar to previous. No airspace consolidation or large pleural effusion is identified. Scarring/atelectasis is noted at the lung bases. No pneumothorax is seen. The skeletal st ructures are osteopenic. The bony thorax is grossly intact. IMPRESSION: 1. Cardiomegaly with prominence of the pulmonary vasculature. Correlate clinically for evidence of mi ld congestive failure. 2. No airspace consolidation or large pleural effusion is identified. Electronically signed by: Jerry Heart M.D. 05/12/2019 8:14 PM
[2019-05-12] MEDS: CARVEDILOL 25 MG TAB PO SCH (20:48)
[2019-05-12 21:14] LABS: Appearance Urine Cloudy (Clear); Bacteria Urine Automated Negative (Negative); Bilirubin Urine Negative (Negative); Blood Urine 3+ (Negative); Color Urine Yellow; Epithelial Cell Urine Auto 0-5 /lpf (0-5); Glucose Urine UA Negative (Negative); Ketones Urine Trace (Negative); Leukocyte Esterase Urine Trace (Negative); Nitrite Urine Negative (Negative); Protein Urine 1+ (Negative); Specific Gravity Urine 1.033 (1.000-1.030); Urobilinogen Urine Negative (Negative)
[2019-05-12 21:38] LABS: RBC Urine Automated >30 /hpf (0-4)
[2019-05-12] MEDS ORDERED: ONDANSETRON INJ 2 MG/ML 2 ML VIAL IV PRN (22:05)
[2019-05-12] MEDS ORDERED: GLUCOSE 10 TABS/TUBE PO PRN (22:05)
[2019-05-12] MEDS ORDERED: GLUCAGON FOR INJ 1 MG VIAL SQ PRN (22:05)
[2019-05-12] MEDS ORDERED: MoRPHine SULFATE 2 MG/ML CARP IV PRN (22:05)
[2019-05-12] MEDS ORDERED: CARBOHYDRATES FOR HYPOGLYCEMIA PO PRN (22:05)
[2019-05-12] MEDS ORDERED: ARTIFICIAL TEARS OP PRN (22:05)
[2019-05-12] MEDS ORDERED: DEXTROSE 50% 50 ML SYRINGE IV PRN (22:05)
[2019-05-12] MEDS ORDERED: GLUCOSE 40% GEL 15 GM TUBE PO PRN (22:05)
[2019-05-12] MEDS ORDERED: POLYETHYLENE (MIRALAX) 17 GM PACK PO PRN (22:05)
[2019-05-12] MEDS ORDERED: HydrALAZINE HCL 20 MG/ML VIAL IV PRN (22:05)
[2019-05-12] MEDS: SODIUM CHLORIDE 0.9% 1000ML 1,000 ML IV SCH (22:27)
[2019-05-12] MEDS ORDERED: PATIENT'S HEIGHT AND/OR WEIGHT NEEDED SCH (22:30)
[2019-05-12] MEDS ORDERED: cefTRIAXone SODIUM 2,000 MG in DEXTROSE 5% 50 ML IV ONE (23:00)
[2019-05-12] MEDS: INSULIN ASPART 100 UNITS/ML 3 ML PEN SC SCH (23:12)
[2019-05-12] MEDS: MAGNESIUM CHLORIDE 64MG DELAYED REL TAB PO SCH (23:12)
[2019-05-12] MEDS: TAMSULOSIN HCL 0.4 MG CAP PO SCH (23:13)
[2019-05-12] MEDS: ATORVASTATIN 40 MG TAB PO SCH (23:13)
[2019-05-12] MEDS: GABAPENTIN 800 MG TAB PO SCH (23:13)
[2019-05-12] MEDS: PANTOprazole 40 MG TAB PO SCH (23:13)
--- NOTE | 2019-05-12 23:20 | Emergency Department Note ---
Entered by Lucia Magana acting as a scribe for History of Present Illness General Chief complaint: Flank Pain Stated complaint: LOWER LEFT ABD PAIN Time Seen by Provider: 05/12/19 17:00 History of Present Illness Provider complaint: left sided lower abdominal pain Onset (ago): hour(s) 1 Location: abdomen (lower) and left Radiation: non-radiation Severity: similar to prior episodes (of kidney stones and diverticulitis) Maximum Pain Intensity: 7 Associated symptoms: + denies other symptoms (dysuria) and + other (constipated); no nausea/vomiting The patient is a 78 year old female who presents to the ED with complaints of left sided lower abdominal pain that started 1 day ago. The patient states that she has had kidney stones and diverticulitis in the past and this feels similar to both. The patient describes the pain as non-radiating. The patent notes that she has been constipated. The patient denies vomiting and dysuria. Home Medications Home Medications Medication Instructions Recorded Confirmed Type carvedilol 25 mg PO BID #0 10/15/13 05/12/19 History metformin 1,000 mg PO QAM #0 10/15/13 05/12/19 History metformin 500 mg PO BID #0 10/15/13 05/12/19 History omega-3 fatty acids 2,000 mg PO DAILY #0 10/15/13 05/12/19 History omeprazole 20 mg PO BID #0 10/15/13 05/12/19 History coenzyme Q10 100 mg PO DAILY #0 01/04/16 05/12/19 History diphenhydramine HCl [Benadryl] 25 mg PO DAILY PRN #0 02/21/16 05/12/19 History gabapentin 800 mg PO TID #0 tab 02/21/16 05/12/19 History lisinopril 40 mg PO DAILY #0 02/21/16 05/12/19 History lorazepam 0.5 mg PO BID PRN #0 02/21/16 05/12/19 History atorvastatin 40 mg PO HS #0 04/09/17 05/12/19 History dicyclomine 10 mg PO QID PRN #0 04/09/17 05/12/19 History metronidazole [Metrogel] 1 applic TOPICAL BID PRN 12/09/18 05/12/19 History valerian root 100 mg PO DAILY 12/09/18 05/12/19 History cholecalciferol (vitamin D3) 50,000 unit PO MONTHLY 05/12/19 05/12/19 History magnesium chloride [Slow-Mag] 71.5 mg PO BID 05/12/19 05/12/19 History peg 400-propylene glycol [Systane 1 drp OPHTHALMIC (EYE) BID PRN 05/12/19 05/12/19 History Ultra] Allergies Allergy/AdvReac Type Severity Reaction Status Date / Time oxycodone Allergy Unknown SEDATION Unverified 05/12/19 18:40 Past Med/Surg History Medical History Dyslipidemia (Chronic) CKD (chronic kidney disease), stage III (Chronic) Diastolic dysfunction (Chronic) Diabetes (Chronic) Hypertension (Chronic) Kidney stones (Chronic) GERD (gastroesophageal reflux disease) (Chronic) Hypomagnesemia (Chronic) Diverticulitis Surgical History History of back surgery (Resolved) Hx of colonoscopy with polypectomy (Resolved) Family History Other Family history non-contributory Social History Preferred Language: French Communication Ability: Effective Screen Printing Paster Required: No Beliefs That Will Affect Care: None marital status: Current Living Situation: Spouse current occupational status: retired Other Information That Helps Us Care for You: No Feels Safe at Home: Yes Safety Concerns: Feels Safe At This Time Smoking Status: Former smoker Do You Dip or Chew Tobacco: No ; Smoking End Date: 2003 ; Hx Alcohol Use: No Hx Substance Use: No Review of Systems See HPI for pertinent positives & negatives. and A total of 10 systems reviewed and were otherwise negative Physical Exam Vital Signs Vital Signs - 24 hr 05/12/19 16:54 05/12/19 18:50 05/12/19 19:29 Temperature 36.5 C Temperature Source Oral Sepsis Recent Fever Within 48 Hours No Sepsis New/Unexplained Change in Mental Status No Sepsis Action Taken by Nursing No Action Required Pulse Rate 82 Pulse Rate [Finger] 88 85 Respiratory Rate 20 24 18 Respiratory Effort / Characteristics Non-Labored Spontaneous Respiratory Depth Normal Blood Pressure 198/83 H Blood Pressure [Right Arm] 197/126 H 195/98 H Blood Pressure Mean 121 Blood Pressure Mean [Right Arm] 149 130 Blood Pressure Position [Right Arm] Sitting Pulse Oximetry 98 95 96 Oxygen Delivery Method Room Air Room Air Room Air GENERAL: She is oriented to person, place, and time. She appears well-developed and well-nourished. She does not appear distressed. HENT: Exam performed. -Head: Normocephalic and atraumatic. -Right Ear: External ear normal. No mastoid tenderness. -Left Ear: External ear normal. No mastoid tenderness. -Mouth/Throat: The oropharynx is clear and moist. No trismus in the jaw. No dental abscesses or uvula swelling. No oropharyngeal exudate or tonsillar abscesses. EYES: Conjunctivae and EOM are normal. Pupils are equal, round, and reactive to light. Right eye exhibits no discharge. Left eye exhibits no discharge. No scleral icterus. NECK: Normal range of motion. Neck supple. No JVD present. No spinous process tenderness present. No carotid bruit present. No rigidity. No tracheal deviation and normal range of motion present. No Brudzinski's sign and no Kernig's sign noted. CV: Normal rate, regular rhythm, normal heart sounds and intact distal pulses. There is no peripheral edema. Palpable radial pulses bue. PULM/CHEST: Effort normal and breath sounds normal. No respiratory distress. No stridor. She has no wheezes. She has no rales. Chest Wall: She exhibits no tenderness. ABD: The abdomen is soft. There is pain to palpation of LLQ, RLQ and suprapubic region. Bowel sounds are normal. She has no distension. No mass is present. There is no rebound, no guarding, no Layne's sign and no tenderness at McBurney's point. Rovsig negative MUSC/SKEL: Normal range of motion. There is no peripheral edema, tenderness or deformity. LYMPH: No cervical adenopathy. NEURO: She is alert and oriented to person, place, and time. She has normal strength. No cranial nerve deficit or sensory deficit. Coordination and gait normal. GCS eye subscore is 4. GCS verbal subscore is 5. GCS motor subscore is 6 . cerbellar tests wnl. SKIN: Skin is warm and dry. She is not diaphoretic. PSYCH: She has a normal mood and affect. Her behavior is normal. Judgment and thought content normal. Course 1707: Past medical records reviewed. The patient was evaluated in room B04B. A complete history and physical exam was performed. 1847: Labs within normal limits, hemoglobin at baseline. Patient states that she is still unable to urinate. CT shows left-sided hydroureteronephrosis. 5 x 4 x 6 mm calculus at distal left ureter. Patient states that pain is not better and the pain is severe. I discussed the patient's case with Dr. Karen Yanez Hospitalist. He will evaluate the patient for further management. Consultations Consultation #1: I discussed the patient's case with Dr. Karen Aguirre. He will evaluate the patient for further management. Time: 18:48 Administered Medications Atorvastatin Calcium (Lipitor) 40 mg PO HS URI Stop: 06/11/19 22:04 Last Admin: 05/12/19 23:13 Dose: 40 mg Documented by: [id number] Carvedilol (Coreg) 25 mg PO BID URI Stop: 06/11/19 20:59 Last Admin: 05/12/19 20:48 Dose: 25 mg Documented by: [id number] Gabapentin (Neurontin) 800 mg PO TID URI Stop: 06/11/19 22:04 Last Admin: 05/12/19 23:13 Dose: 800 mg Documented by: [id number] Sodium Chloride (Nss 1000ml) 1,000 mls @ 80 mls/hr IV .[id number] URI Stop: 05/13/19 23:04 Last Admin: 05/12/19 22:27 Dose: 80 mls/hr Documented by: [id number] Ceftriaxone Sodium 2,000 mg/ (Dextrose) 70 mls @ 140 mls/hr IV 2300 ONE Stop: 05/12/19 23:29 Last Admin: 05/12/19 23:11 Dose: 140 mls/hr Documented by: [id number] Insulin Aspart (Novolog Flexpen) 0 units SC ACHS URI Stop: 06/11/19 22:29 Last Admin: 05/12/19 23:12 Dose: 1 units Documented by: [id number] Cosigned by: [id number] Magnesium Chloride (Slow-Mag) 64 mg PO BID URI Stop: 06/11/19 22:14 Last Admin: 05/12/19 23:12 Dose: 64 mg Documented by: [id number] Pantoprazole Sodium (Protonix) 40 mg PO BID URI Stop: 06/11/19 22:04 Last Admin: 05/12/19 23:13 Dose: 40 mg Documented by: [id number] Tamsulosin HCl (Flomax) 0.4 mg PO HS URI Stop: 05/16/19 21:01 Last Admin: 05/12/19 23:13 Dose: 0.4 mg Documented by: [id number] Discontinued Medications Sodium Chloride (Nss 1000ml) 1,000 mls @ 999 mls/hr IV .[id number] ONE Stop: 05/12/19 18:09 Last Infusion: 05/12/19 18:35 Dose: 0 mls/hr Documented by: [id number] Admin: 05/12/19 17:27 Dose: 999 mls/hr Documented by: [id number] Ketorolac Tromethamine (Toradol) 15 mg IV NOW STA Stop: 05/12/19 17:10 Last Admin: 05/12/19 17:27 Dose: 15 mg Documented by: [id number] Ketorolac Tromethamine (Toradol) 15 mg IV NOW STA Stop: 05/12/19 18:49 Last Admin: 05/12/19 19:00 Dose: 15 mg Documented by: [id number] Morphine Sulfate (Morphine Sulfate) 4 mg IV NOW STA Stop: 05/12/19 18:49 Last Admin: 05/12/19 19:00 Dose: 4 mg Documented by: [id number] Ondansetron HCl (Zofran) 4 mg IV NOW STA Stop: 05/12/19 17:10 Last Admin: 05/12/19 17:27 Dose: 4 mg Documented by: [id number] Medical Decision Making Medical Records Attestation: I reviewed the patient's medical records. Home Medications Current Medication List: was personally reviewed by me Laboratory Data Attestation: I reviewed the patient's lab results. Result diagrams: 05/12/19 17:28 05/12/19 17:28 Lab Results 05/12/19 05/12/19 05/12/19 Range/Units 17:28 17:28 17:28 WBC 9.65 (4.8-10.8) K/uL RBC 4.36 (4.2-5.4) M/uL Hgb 9.9 L (12.0-16.0) g/dL Hct 33.8 L (37-47) % MCV 77.5 L (80-100) fL MCH 22.7 L (25-34) pg MCHC 29.3 L (32-36) g/dL RDW Std Deviation 48.9 H (36.4-46.3) fL RDW Coeff of Pia 17.4 H (11.5-14.5) % Plt Count 244 (130-400) K/uL MPV 9.6 (7.4-10.4) fL Immature Gran % (Auto) 0.4 % Neut % (Auto) 52.8 % Lymph % (Auto) 28.1 % [place] % (Auto) 7.3 % Eos % (Auto) 10.9 % Baso % (Auto) 0.5 % Immature Gran # (Auto) 0.04 H (0.00-0.02) K/uL Neut # (Auto) 5.10 (1.4-6.5) K/uL Lymph # (Auto) 2.71 (1.2-3.4) K/uL [place] # (Auto) 0.70 H (0.11-0.59) K/uL Eos # (Auto) 1.05 H (0-0.5) K/uL Baso # (Auto) 0.05 (0-0.2) K/uL PT 10.2 (9.0-12.0) Seconds INR 1.0 (0.9-1.1) APTT 22.2 (21.0-31.0) Seconds PTT Ratio 0.8 Sodium 141 (136-145) mmol/L Potassium 5.0 (3.5-5.1) mmol/L Chloride 111 H (98-107) mmol/L Carbon Dioxide 26 (21-32) mmol/L Anion Gap 4.0 (3-11) BUN 21 H (7-18) mg/dl Creatinine 1.18 (0.6-1.2) mg/dl Est Cr Clr Drug Dosing Not Reportable Est GFR ( Amer) 51.5 Est GFR (Non-Af Amer) 44.5 BUN/Creatinine Ratio 18.0 (10-20) Glucose 131 H (70-99) mg/dl Calcium 9.2 (8.5-10.1) mg/dl Total Bilirubin 0.2 (0.2-1) mg/dl Direct Bilirubin < 0.1 (0-0.2) mg/dl AST 24 (15-37) U/L ALT 26 (12-78) U/L Alkaline Phosphatase 75 (45-117) U/L Total Protein 6.9 (6.4-8.2) gm/dl Albumin 3.4 (3.4-5.0) gm/dl Lipase 117 (73-393) U/L Urine Color Urine Appearance (Clear) Urine pH (4.5-7.5) Ur Specific [place] (1.000-1.030) Urine Protein (Negative) Urine Glucose (UA) (Negative) Urine Ketones (Negative) Urine Blood (Negative) Urine Nitrite (Negative) Urine Bilirubin (Negative) Urine Urobilinogen (Negative) Ur Leukocyte Esterase (Negative) Urine WBC (Auto) (0-5) /hpf Urine RBC (Auto) (0-4) /hpf U Hyaline Cast (Auto) (0-5) /lpf U Epithel Cells (Auto) (0-5) /lpf Urine Bacteria (Auto) (Negative) Urine Yeast 05/12/19 Range/Units 18:52 WBC (4.8-10.8) K/uL RBC (4.2-5.4) M/uL Hgb (12.0-16.0) g/dL Hct (37-47) % MCV (80-100) fL MCH (25-34) pg MCHC (32-36) g/dL RDW Std Deviation (36.4-46.3) fL RDW Coeff of Pia (11.5-14.5) % Plt Count (130-400) K/uL MPV (7.4-10.4) fL Immature Gran % (Auto) % Neut % (Auto) % Lymph % (Auto) % [place] % (Auto) % Eos % (Auto) % Baso % (Auto) % Immature Gran # (Auto) (0.00-0.02) K/uL Neut # (Auto) (1.4-6.5) K/uL Lymph # (Auto) (1.2-3.4) K/uL [place] # (Auto) (0.11-0.59) K/uL Eos # (Auto) (0-0.5) K/uL Baso # (Auto) (0-0.2) K/uL PT (9.0-12.0) Seconds INR (0.9-1.1) APTT (21.0-31.0) Seconds PTT Ratio Sodium (136-145) mmol/L Potassium (3.5-5.1) mmol/L Chloride (98-107) mmol/L Carbon Dioxide (21-32) mmol/L Anion Gap (3-11) BUN (7-18) mg/dl Creatinine (0.6-1.2) mg/dl Est Cr Clr Drug Dosing Est GFR ( Amer) Est GFR (Non-Af Amer) BUN/Creatinine Ratio (10-20) Glucose (70-99) mg/dl Calcium (8.5-10.1) mg/dl Total Bilirubin (0.2-1) mg/dl Direct Bilirubin (0-0.2) mg/dl AST (15-37) U/L ALT (12-78) U/L Alkaline Phosphatase (45-117) U/L Total Protein (6.4-8.2) gm/dl Albumin (3.4-5.0) gm/dl Lipase (73-393) U/L Urine Color Yellow Urine Appearance Cloudy A (Clear) Urine pH 5.0 (4.5-7.5) Ur Specific [place] 1.033 H (1.000-1.030) Urine Protein 1+ H (Negative) Urine Glucose (UA) Negative (Negative) Urine Ketones Trace H (Negative) Urine Blood 3+ H (Negative) Urine Nitrite Negative (Negative) Urine Bilirubin Negative (Negative) Urine Urobilinogen Negative (Negative) Ur Leukocyte Esterase Trace H (Negative) Urine WBC (Auto) 5-10 H (0-5) /hpf Urine RBC (Auto) >30 H (0-4) /hpf U Hyaline Cast (Auto) 1-5 (0-5) /lpf U Epithel Cells (Auto) >30 H (0-5) /lpf Urine Bacteria (Auto) 1+ H (Negative) Urine Yeast Not Reportable Imaging Data Radiologist's Impression: Radiology results as stated below per my review and the radiologist's interpretation: SINGLE VIEW CHEST CLINICAL HISTORY: Cough. Volume overload. FINDINGS: An AP, portable, upright chest radiograph is compared to study dated 04/26/2014. The examination is degraded by portable technique and patient rotation. The heart is enlarged noting atherosclerotic calcification of the thoracic aorta. There is prominence of the pulmonary vasculature. Chronic interstitial changes are similar to previous. No airspace consolidation or large pleural effusion is identified. Scarring/atelectasis is noted at the lung bases. No pneumothorax is seen. The skeletal structures are osteopenic. The bony thorax is grossly intact. IMPRESSION: 1. Cardiomegaly with prominence of the pulmonary vasculature. Correlate clinically for evidence of mild congestive failure. 2. No airspace consolidation or large pleural effusion is identified. Electronically signed by: Jerry Heart M.D. 05/12/2019 8:14 PM ABDOMEN AND PELVIS CT WITHOUT CONTRAST CT DOSE: 1476.83 mGycm HISTORY: Acute right lower quadrant and left flank pain llq l cva tenderness and rlq pain TECHNIQUE: Multiaxial CT images of the abdomen and pelvis were performed without contrast. A dose lowering technique was utilized adhering to the principles of ALARA. COMPARISON STUDY: CT abdomen and pelvis 12/09/2018 FINDINGS: Bibasilar subpleural reticular opacities suggests fibrosis. There is a few subpleural nodular foci measuring up to 4 mm within the left lung base which are likely benign. Subpleural cystic change with bibasilar bronchial wall thickening. Calcified granuloma of the basal left lower lobe. There is no pneumatosis or pneumoperitoneum. Imaged inferior cardiac chambers are mildly enlarged with coronary arterial calcifications. The gallbladder, unenhanced liver, spleen, and adrenal glands are unremarkable. Moderate generalized pancreatic atrophy. There are several nonobstructing bilateral renal calculi measuring up to approximately 4 mm. Moderate left-sided hydroureteronephrosis with perinephric and periureteral inflammatory stranding secondary to an obstructing 5 x 4 x 6 mm calculus of the distal left ureter approximately 4 cm proximal to the ureterovesicular junction. Multiple phleboliths of the pelvis. 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 Infrarenal abdominal aortic ectasia measures up to 2.9 cm. There is no adenopathy. There is no bowel obstruction or bowel wall thickening. Extensive colonic diverticulosis without acute diverticulitis. Mild to moderate fecal retention. Appendix not visualized. Soft tissues are unremarkable. Degenerative changes of the spine, pelvis and hips. Mild stranding of the left inferior gluteal crease distribution. IMPRESSION: 1. Moderate left-sided hydroureteronephrosis secondary to an obstructing 5 x 4 x 6 mm calculus of the distal left ureter approximately 4 cm proximal to the ureterovesicular junction. 2. Nonobstructing bilateral nephrolithiasis. 3. No bowel obstruction or bowel wall thickening. 4. Colonic diverticulosis without acute diverticulitis. 5. Fibrosis of the lung bases. Electronically signed by: Juan Berg M.D. 05/12/2019 5:51 PM Blood Pressure Blood Pressure Findings: Elevated blood pressure Blood Pressure Disposition: further management by hospitalist MDM Narrative Labs within normal limits, hemoglobin at baseline. Patient states that she is still unable to urinate. CT shows left-sided hydroureteronephrosis. 5 x 4 x 6 mm calculus at distal left ureter. Patient states that pain is not better and the pain is severe. I discussed the patient's case with Dr. Karen Yanez Hospitalist. He will evaluate the patient for further management. Impression & Plan Kidney stone, Hydroureteronephrosis Discharge Plan Visit Data *Final* Discharge Date/Time: 05/12/19 21:13 Chief Complaint: Flank Pain Stated Complaint: LOWER LEFT ABD PAIN ED Provider: Elliott Mays Discharge Problem: Kidney stone, Hydroureteronephrosis Patient Disposition: Admitted As Inpatient Discharge Instructions Interventions: ED Discharge Assessment Last Done: 05/12/19 21:13 The scribe's documentation has been prepared under my direction and personally reviewed by me in its entirety. I confirm that the note above accurately reflects all work, treatment, procedures, and medical decision making performed by me.
[2019-05-12] MEDS: ACETAMINOPHEN 325 MG TAB PO PRN (23:44)
[2019-05-13] MEDS: ACETAMINOPHEN 325 MG TAB PO PRN (06:13)
[2019-05-13 07:50] LABS: Hematocrit (blood only) 29.3 % (37-47); Hemoglobin 8.4 g/dL (12.0-16.0); Mean Corpuscular Hemoglobin 22.5 pg (25-34); Mean Corpuscular Hgb Conc 28.7 g/dL (32-36); Mean Corpuscular Volume 78.3 fL (80-100); Mean Platelet Volume 8.9 fL (7.4-10.4); Platelet Count 183 K/uL (130-400); RDW Coefficient of Variation 17.5 % (11.5-14.5); RDW Standard Deviation 50.2 fL (36.4-46.3); Red Blood Count 3.74 M/uL (4.2-5.4); White Blood Count 6.64 K/uL (4.8-10.8)
[2019-05-13 07:54] LABS: BUN Creatinine Ratio 14.1 (10-20); Calcium 8.3 mg/dl (8.5-10.1); Est GFR (African American) 39.8; Est GFR (Non-African American) 34.4; Magnesium 1.6 mg/dl (1.8-2.4); Potassium 4.8 mmol/L (3.5-5.1)
[2019-05-13] MEDS: INSULIN ASPART 100 UNITS/ML 3 ML PEN SC SCH ×4 (09:08→21:52)
[2019-05-13] MEDS: MAGNESIUM CHLORIDE 64MG DELAYED REL TAB PO SCH ×2 (09:10→20:00)
[2019-05-13] MEDS: PANTOprazole 40 MG TAB PO SCH ×2 (09:10→20:01)
[2019-05-13] MEDS: LISINOPRIL 40 MG TAB PO SCH (09:11)
[2019-05-13] MEDS: GABAPENTIN 800 MG TAB PO SCH ×3 (09:11→20:02)
[2019-05-13] MEDS: SODIUM CHLORIDE 0.9% 1000ML 1,000 ML IV SCH (09:13)
[2019-05-13] MEDS: CARVEDILOL 25 MG TAB PO SCH ×2 (09:30→20:02)
[2019-05-13] MEDS: HYDROCODONE/ACETAMOPHEN 5/325MG TAB PO PRN (09:35)
--- NOTE | 2019-05-13 13:52 | Hospitalist Progress Note ---
Date of Service May 13, 2019 Assessment & Plan (1) Left ureteral calculus: (2) Hydronephrosis, left: Pt is 78 y/o F with PMH HTN, dyslipidemia, DM II, GERD, CKD III, diastolic dysfunction, LVH, h/o kidney stones presented with c/o LLQ pain today. C/O dysuria x 1 day. Denies fever/chills, N/V, hematuria Noted to have obstructive stone in the left ureter with associated hydronephrosis on the left side In ER received 1L NSS bolus, Toradol total 30mg IV, Zofran, Morphine 4mg Has been on intravenous ceftriaxone for possible UTI Urine and blood culture have been sent Appreciate urology input and recommendation Urology consult, Dr Bone recommends Plan on doing procedure tomorrow aft christiano recommends clear fluids for breakfast tomorrow, then NPO. If pt would develop fever will need notified for urgent procedure CBC, BMP are improving (3) Hypertension: BP elevated in ER May be secondary to pain. Pt also needs PM dose BP meds -Continue carvedilol, lisinopril -Hydralazine prn SBP>160 -Blood pressure seems to be under control (4) CKD (chronic kidney disease), stage III: Cr: 1.18. Baseline 0.9-1.0 -Monitor renal functions -Avoid nephrotoxic agents when possible -Creatinine has been up at 1.46 -We will monitor PRP while in the hospital (5) Diabetes: DM II A1c: 6.9 on 01/08/19 -Hold metformin -Novolog sliding scale per protocol (6) Dyslipidemia: -Continue statin (7) Diastolic dysfunction: 2015 echo with EF: 60%, grade 1 diastolic dysfunction, LVF -Monitor I&O's (8) GERD (gastroesophageal reflux disease): -Continue PPI DVT Prophylaxis -SCDs for now in case of procedure Full Code as per discussion with pt Follows with Dr House for routine care Subjective 05/13 The patient was seen and examined in medical telemetry unit She is a 78-year-old obese female with hypertension, hyperlipidemia, diabetes type 2, CKD stage III and history of kidney stones presented with left lower quadrant pain with dysuria for 1 day She was noted to have moderate left-sided hydronephrosis secondary to obstructing 5 x 4 x 6 mm calculus at the distal left ureter approximately 4 cm proximal to the ureterovesical junction Still has some pain in the left flank and the pain goes down to the left groin Denies any fever and/or chills Review of Systems Review of Systems: All systems reviewed and are unremarkable except as noted below Constitutional: no fever and no chills Genitourinary: no dysuria and no hematuria Left flank pain that goes down to left groin Physical Exam Physical Exam: Lying in bed without any significant symptoms Constitutional: + ill appearing; no acute distress Eyes: PERRL, conjunctivae normal, anicteric sclerae ENMT: external ear and nose normal, oropharynx normal Neck: trachea midline, no thyromegaly Respiratory: normal respiratory effort, lungs clear to auscultation Cardiovascular: Rate/Rhythm: regular rate and regular rhythm Heart Sounds: no murmur Gastrointestinal (Abdomen): Inspection/Auscultation: abdomen normal to inspection and normal bowel sounds; abdomen not distended Percussion/Palpation: + abdomen tender (Left renal angle and left lower quadrant) Musculoskeletal: No acute arthritis in any joints Lymphatic: no cervical or axillary lymphadenopathy Results & Data Vital Signs (Past 12 Hours) Vital Signs Temp Pulse Pulse Resp BP Pulse Ox 05/13/19 11:32 36.8 C 76 18 113/70 95 05/13/19 10:15 66 05/13/19 07:00 36.5 C 72 18 136/68 93 05/13/19 03:45 36.4 C L 69 18 97/63 L 93 Laboratory Results Short CBC 05/12/19 05/13/19 Range/Units 17:28 06:53 WBC 9.65 6.64 (4.8-10.8) K/uL Hgb 9.9 L 8.4 L (12.0-16.0) g/dL Hct 33.8 L 29.3 L (37-47) % Plt Count 244 183 (130-400) K/uL BMP 05/12/19 05/13/19 17:28 06:53 Sodium 141 141 Potassium 5.0 4.8 Chloride 111 H 112 H Carbon Dioxide 26 26 BUN 21 H 21 H Creatinine 1.18 1.46 H Glucose 131 H 148 H Calcium 9.2 8.3 L Liver Function 05/12/19 Range/Units 17:28 Total Bilirubin 0.2 (0.2-1) mg/dl Direct Bilirubin < 0.1 (0-0.2) mg/dl AST 24 (15-37) U/L ALT 26 (12-78) U/L Alkaline Phosphatase 75 (45-117) U/L Albumin 3.4 (3.4-5.0) gm/dl Urine 05/12/19 05/12/19 Range/Units 18:52 21:03 Urine Color Yellow Yellow Urine Appearance Cloudy A Cloudy A (Clear) Urine pH 5.0 5.0 (4.5-7.5) Ur Specific [place] 1.033 H 1.033 H (1.000-1.030) Urine Protein 1+ H 1+ H (Negative) Urine Glucose (UA) Negative Negative (Negative) Diagnostic Findings CT ABD/PELVIS: IMPRESSION: 1. Moderate left-sided hydroureteronephrosis secondary to an obstructing 5 x 4 x 6 mm calculus of the distal left ureter approximately 4 cm proximal to the ureterovesicular junction. 2. Nonobstructing bilateral nephrolithiasis. 3. No bowel obstruction or bowel wall thickening. 4. Colonic diverticulosis without acute diverticulitis. 5. Fibrosis of the lung bases. Medications Administered Current Inpatient Medications Acetaminophen (Tylenol) 650 mg PO Q4H PRN PRN Reason: Pain or Fever Stop: 06/11/19 22:04 Last Admin: 05/13/19 06:13 Dose: 650 mg Documented by: Hydrocodone Bitart/Acetaminophen ([place] 5/325) 1 tab PO Q6H PRN PRN Reason: Moderate Pain Stop: 05/26/19 22:04 Last Admin: 05/13/19 09:35 Dose: 1 tab Documented by: Artificial Tears (Artificial Tears) 1 drops OP BID PRN PRN Reason: Dry Eye(S) Atorvastatin Calcium (Lipitor) 40 mg PO HS URI Stop: 06/11/19 22:04 Last Admin: 05/12/19 23:13 Dose: 40 mg Documented by: Carvedilol (Coreg) 25 mg PO BID URI Stop: 06/11/19 20:59 Last Admin: 05/13/19 09:30 Dose: 25 mg Documented by: Dextrose (Dextrose 50%) 25 - 50 ml IV UD PRN; Protocol PRN Reason: Hypoglycemia Protocol Stop: 06/11/19 22:04 Gabapentin (Neurontin) 800 mg PO TID URI Stop: 06/11/19 22:04 Last Admin: 05/13/19 13:19 Dose: 800 mg Documented by: Glucagon (Glucagen) 1 mg SQ UD PRN; Protocol PRN Reason: Hypoglycemia Protocol Stop: 06/11/19 22:04 Glucose (Dex4 Glucose) 4 - 8 tabs PO UD PRN; Protocol PRN Reason: Hypoglycemia Protocol Stop: 06/11/19 22:04 Glucose (Glucose 40%) 15 - 30 gm PO UD PRN; Protocol PRN Reason: Hypoglycemia Protocol Stop: 06/11/19 22:04 Hydralazine HCl (Hydralazine Hcl) 10 mg IV Q6H PRN PRN Reason: Hypertension Stop: 06/11/19 22:04 Ceftriaxone Sodium 2,000 mg/ (Dextrose) 70 mls @ 100 mls/hr IV Q24H URI; Protocol Stop: 05/22/19 19:59 Sodium Chloride (Nss 1000ml) 1,000 mls @ 80 mls/hr IV .[id number] [facility] Stop: 05/13/19 23:04 Last Admin: 05/13/19 09:13 Dose: 80 mls/hr Documented by: Insulin Aspart (Novolog Flexpen) 0 units SC ACHS URI Stop: 06/11/19 22:29 Last Admin: 05/13/19 12:26 Dose: 7 units Documented by: Lisinopril (Zestril) 40 mg PO DAILY [facility] Stop: 06/12/19 08:59 Last Admin: 05/13/19 09:11 Dose: 40 mg Documented by: Magnesium Chloride (Slow-Mag) 64 mg PO BID [facility] Stop: 06/11/19 22:14 Last Admin: 05/13/19 09:10 Dose: 64 mg Documented by: Miscellaneous (Carbohydrates For Hypoglycemia) 15 - 30 gm PO UD PRN PRN Reason: Hypoglycemia Protocol Stop: 06/11/19 22:04 Morphine Sulfate (Morphine Sulfate) 2 mg IV Q2H PRN PRN Reason: Severe Pain Stop: 05/26/19 22:04 Ondansetron HCl (Zofran) 4 mg IV Q6H PRN PRN Reason: Nausea Stop: 06/11/19 22:04 Pantoprazole Sodium (Protonix) 40 mg PO BID URI Stop: 06/11/19 22:04 Last Admin: 05/13/19 09:10 Dose: 40 mg Documented by: Polyethylene Glycol (Miralax Powder Packet) 17 gm PO DAILY PRN PRN Reason: Constipation Stop: 06/11/19 22:04 Tamsulosin HCl (Flomax) 0.4 mg PO HS URI Stop: 05/16/19 21:01 Last Admin: 05/12/19 23:13 Dose: 0.4 mg Documented by:
[2019-05-13] MEDS ORDERED: fentaNYL citrate 100 MCG/2 ML VIAL ONE (16:24)
[2019-05-13] MEDS ORDERED: IOTHALAMATE MEGLUMINE II 17.2% 250 ML VIAL ONE (16:26)
[2019-05-13] MEDS ORDERED: ONDANSETRON INJ 2 MG/ML 2 ML VIAL ONE (16:28)
[2019-05-13] MEDS ORDERED: LIDOCAINE HCL 2% 2 ML VIAL/AMP(20MG/ML) INFIL ONE (16:28)
[2019-05-13] MEDS ORDERED: PROPOFOL IV EMULSION 10 MG/ML 20 ML VIAL IV ONE (16:28)
--- NOTE | 2019-05-13 16:39 | Anesthesiology Consultation ---
Date of Service May 13, 2019 VALERIY HTN Obesity RA NIDDM Assessment & Plan (1) Encounter for pre-operative examination: Chart Review Chart Review: Acceptable Risk for Surgery and Patient NOT seen in Pre Admission Testing Consults Requested none ASA ASA3 Proposed Anesthesia Anesthesia Type: MAC Risk / Benefits Reviewed With: PT / POA / Parent / Guardian, Accepts Plan and Informed Consent Obtained History Surgery Operation Date: 05/13/19 11:35 Proposed Procedures p Cystoscopy Left Stent Insertion - Nery Bone MD Height/Weight Height: 5 ft 3 in Weight: 93.4 kg Allergies Allergy/AdvReac Type Severity Reaction Status Date / Time oxycodone Allergy Unknown SEDATION Unverified 05/12/19 18:40 Medications Home Medications Medication Instructions Recorded Confirmed Last Taken carvedilol 25 mg PO BID #0 10/15/13 05/12/19 05/12/19 metformin 1,000 mg PO QAM #0 10/15/13 05/12/19 05/12/19 metformin 500 mg PO BID #0 10/15/13 05/12/19 05/12/19 omega-3 fatty acids 2,000 mg PO DAILY #0 10/15/13 05/12/19 05/12/19 omeprazole 20 mg PO BID #0 10/15/13 05/12/19 05/12/19 coenzyme Q10 100 mg PO DAILY #0 01/04/16 05/12/19 05/12/19 diphenhydramine HCl [Benadryl] 25 mg PO DAILY PRN #0 02/21/16 05/12/19 05/12/19 gabapentin 800 mg PO TID #0 tab 02/21/16 05/12/19 05/12/19 lisinopril 40 mg PO DAILY #0 02/21/16 05/12/19 05/12/19 lorazepam 0.5 mg PO BID PRN #0 02/21/16 05/12/19 05/12/19 atorvastatin 40 mg PO HS #0 04/09/17 05/12/19 05/11/19 dicyclomine 10 mg PO QID PRN #0 04/09/17 05/12/19 Unknown metronidazole [Metrogel] 1 applic TOPICAL BID PRN 12/09/18 05/12/19 Unknown valerian root 100 mg PO DAILY 0605/12/19 05/12/19 cholecalciferol (vitamin D3) 50,000 unit PO MONTHLY 05/12/19 05/12/19 05/07/19 magnesium chloride [Slow-Mag] 71.5 mg PO BID 05/12/19 05/12/19 05/12/19 peg 400-propylene glycol [Systane 1 drp OPHTHALMIC (EYE) BID PRN 05/12/19 05/12/19 Unknown Ultra] Active Medications Generic Name Dose Route Start Last Admin Trade Name Freq PRN Reason Stop Dose Admin Acetaminophen 650 mg 05/12/19 22:05 05/13/19 06:13 Tylenol PO 06/11/19 22:04 650 mg Q4H PRN Administration Pain or Fever Hydrocodone Bitart/Acetaminophen 1 tab 05/12/19 22:05 05/13/19 09:35 [place] 5/325 PO 05/26/19 22:04 1 tab Q6H PRN Administration Moderate Pain Atorvastatin Calcium 40 mg 05/12/19 22:05 05/12/19 23:13 Lipitor PO 06/11/19 22:04 40 mg HS URI Administration Carvedilol 25 mg 05/12/19 21:00 05/13/19 09:30 Coreg PO 06/11/19 20:59 25 mg BID URI Administration Gabapentin 800 mg 05/12/19 22:05 05/13/19 13:19 Neurontin PO 06/11/19 22:04 800 mg TID URI Administration Sodium Chloride 1,000 mls @ 80 mls/hr 05/12/19 22:05 05/13/19 09:13 Nss 1000ml IV 05/13/19 23:04 80 mls/hr .[id number] URI Administration Insulin Aspart 0 units 05/12/19 22:30 05/13/19 12:26 Novolog Flexpen SC 06/11/19 22:29 7 units ACHS URI Administration Lisinopril 40 mg 05/13/19 09:00 05/13/19 09:11 Zestril PO 06/12/19 08:59 40 mg DAILY URI Administration Magnesium Chloride 64 mg 05/12/19 22:15 05/13/19 09:10 Slow-Mag PO 06/11/19 22:14 64 mg BID URI Administration Pantoprazole Sodium 40 mg 05/12/19 22:05 05/13/19 09:10 Protonix PO 06/11/19 22:04 40 mg BID URI Administration Tamsulosin HCl 0.4 mg 05/12/19 22:05 05/12/19 23:13 Flomax PO 05/16/19 21:01 0.4 mg HS URI Administration NPO Date Last Intake of Fluids: 05/13/19 Time Last Intake of Fluids: 11:00 Date Last Intake of Solids: 05/12/19 Time Last Intake of Solids: 12:00 Past Medical History Medical History Dyslipidemia (Chronic) CKD (chronic kidney disease), stage III (Chronic) Diastolic dysfunction (Chronic) Diabetes (Chronic) Hypertension (Chronic) Kidney stones (Chronic) GERD (gastroesophageal reflux disease) (Chronic) Hypomagnesemia (Chronic) Diverticulitis Exercise / Class Metabolic Activity III < 4 Walking/Shop/Light housework (walks with a walker) Past Family History Family History Other Family history non-contributory Past Surgical History Surgical History History of back surgery (Resolved) Hx of colonoscopy with polypectomy (Resolved) Past Anesthesia History No Hx of Anesthesia Complications and No Family Hx of Anesthesia Complications History of PONV No Hx of PONV and No Hx of Motion Sickness Social History Smoking Status: Former smoker Do You Dip or Chew Tobacco: No Smoking End Date: 2003 Hx Alcohol Use: No Hx Substance Use: No Physical Exam Vital Signs Last Vital Signs Temp 37.1 C 05/13/19 16:29 Pulse 97 H 05/13/19 16:29 Resp 20 05/13/19 16:29 BP 182/118 H 05/13/19 16:29 Pulse Ox 92 05/13/19 16:29 Constitutional + obese ENMT Mouth: + edentulous Thyromental Distance: > or= 3.5 Finger Breadths Mallampati Class: III Neck normal visual inspection Respiratory normal respiratory effort Auscultation: lungs clear to auscultation bilaterally Cardiovascular Rate/Rhythm: regular rate and regular rhythm Psychiatric Orientation: alert Testing Laboratory Results 05/13/19 06:53 05/13/19 06:53 PT 10.2 Seconds (9.0-12.0) 05/12/19 17: INR 1.0 (0.9-1.1) 05/12/19 17:28 APTT 22.2 Seconds (21.0-31.0) 05/12/19 17:28 Urine Color Yellow 05/12/19 21:03 Urine Appearance Cloudy (Clear) A 05/12/19 21:03 Urine pH 5.0 (4.5-7.5) 05/12/19 21:03 Ur Specific [place] 1.033 (1.000-1.030) H 05/12/19 21:03 Urine Protein 1+ (Negative) H 05/12/19 21:03 Urine Glucose (UA) Negative (Negative) 05/12/19 21:03 Urine Ketones Trace (Negative) H 05/12/19 21:03 Urine Nitrite Negative (Negative) 05/12/19 21:03 Ur Leukocyte Esterase Trace (Negative) H 05/12/19 21:03 Urine WBC (Auto) 1-5 /hpf (0-5) 05/12/19 21:03 Urine RBC (Auto) >30 /hpf (0-4) H 05/12/19 21:03 U Hyaline Cast (Auto) 1-5 /lpf (0-5) 05/12/19 21:03 U Epithel Cells (Auto) 0-5 /lpf (0-5) 05/12/19 21:03 Urine Bacteria (Auto) Negative (Negative) 05/12/19 21:03 05/12/19 21:03 Urine Culture - Preliminary Urine,Straight Cath No growth - Less than 1,000 colonies/mL, Final report to follow. 05/12/19 18:52 Urine Culture - Final Urine,Clean Catch More than three types of organisms present, all high counts mixed probable skin davis - No further identifications or sensitivities to follow. 05/13/19 05/13/19 11:45 07:36 POC Glucose 173 H 152 H Electrocardiogram Date: 05/12/19 Findings: + NSR @
[2019-05-13] MEDS ORDERED: fentaNYL citrate 100 MCG/2 ML VIAL IV PRN (16:43)
[2019-05-13] MEDS ORDERED: ePHEDrine sulfate 50 MG/ML AMP IV PRN (16:43)
[2019-05-13] MEDS ORDERED: ONDANSETRON INJ 2 MG/ML 2 ML VIAL IV PRN (16:43)
[2019-05-13] MEDS ORDERED: ATROPINE SULFATE 0.1 MG/ML 10ML SYR IV PRN (16:43)
--- NOTE | 2019-05-13 16:48 | Urology Consultation ---
Date of Consultation May 13, 2019 Assessment & Plan (1) Hydroureteronephrosis: left 5mm distal ureteral stone with hydro to OR for cysto left stent placement un verona iv sedation had ceftriaoxone in er last night 11pm I explained surgery and her signed consent at her request b/c she does not havee her glasses on Present on Admission?: Yes History of Present Illness Reason for Consultation: left distal ureteral stone Requesting Physician: Dr Ash Kaufman Attending Physician: Shayan Pinto MD History of Present Illness Patient presents with 5mm left distal ureteral stone. Ct martín for abd pain. Has hydro above a 5mm left distal rueteral stone. Has small and medium bilateral kidney stones. Lots of stranding suggest inflammation or infection. urine culture pending. Allergies Allergy/AdvReac Type Severity Reaction Status Date / Time oxycodone Allergy Unknown SEDATION Verified 05/13/19 16:45 Home Medications Home Medications Medication Instructions Recorded Confirmed Type carvedilol 25 mg PO BID #0 10/15/13 05/12/19 History metformin 1,000 mg PO QAM #0 10/15/13 05/12/19 History metformin 500 mg PO BID #0 10/15/13 05/12/19 History omega-3 fatty acids 2,000 mg PO DAILY #0 10/15/13 05/12/19 History omeprazole 20 mg PO BID #0 10/15/13 05/12/19 History coenzyme Q10 100 mg PO DAILY #0 01/04/16 05/12/19 History diphenhydramine HCl [Benadryl] 25 mg PO DAILY PRN #0 02/21/16 05/12/19 History gabapentin 800 mg PO TID #0 tab 02/21/16 05/12/19 History lisinopril 40 mg PO DAILY #0 02/21/16 05/12/19 History lorazepam 0.5 mg PO BID PRN #0 02/21/16 05/12/19 History atorvastatin 40 mg PO HS #0 04/09/17 05/12/19 History dicyclomine 10 mg PO QID PRN #0 04/09/17 05/12/19 History metronidazole [Metrogel] 1 applic TOPICAL BID PRN 12/09/18 05/12/19 History valerian root 100 mg PO DAILY 12/09/18 05/12/19 History cholecalciferol (vitamin D3) 50,000 unit PO MONTHLY 05/12/19 05/12/19 History magnesium chloride [Slow-Mag] 71.5 mg PO BID 05/12/19 05/12/19 History peg 400-propylene glycol [Systane 1 drp OPHTHALMIC (EYE) BID PRN 05/12/19 1112/23 History Ultra] Patient History Medical History Dyslipidemia (Chronic) CKD (chronic kidney disease), stage III (Chronic) Diastolic dysfunction (Chronic) Diabetes (Chronic) Hypertension (Chronic) Kidney stones (Chronic) GERD (gastroesophageal reflux disease) (Chronic) Hypomagnesemia (Chronic) Diverticulitis Surgical History History of back surgery (Resolved) Hx of colonoscopy with polypectomy (Resolved) Family History Other Family history non-contributory Social History Preferred Language: Nigerian Communication Ability: Effective Training Generalist Required: No Beliefs That Will Affect Care: None marital status: Current Living Situation: Spouse current occupational status: retired Other Information That Helps Us Care for You: No Feels Safe at Home: Yes Safety Concerns: Feels Safe At This Time Smoking Status: Former smoker Do You Dip or Chew Tobacco: No ; Smoking End Date: 2003 ; Hx Alcohol Use: No Hx Substance Use: No Review of Systems Review of Systems: PMH- obesity, . DM, HTN, hypothyroid, allergy - intolerance to oxycodone Soc- no tobacco, retired ROS- no chest pain + SOB with exertion. + weakness, + chills, + fatigue, no rash, no dysuria bowels are fine Physical Exam Constitutional: well developed, well nourished, + well hydrated, healthy appearing, comfortable and + overweight Respiratory: normal respiratory effort, lungs clear to auscultation Cardiovascular: RRR, no murmur, no edema Skin: no rashes, warm and dry Psychiatric: A+Ox3, euthymic affect Results & Data Vital Signs (Past 12 Hours) Vital Signs Temp Pulse Pulse Resp BP Pulse Ox 05/13/19 16:29 37.1 C 97 H 20 182/118 H 92 05/13/19 15:51 81 05/13/19 15:48 36.9 C 86 17 157/70 H 94 05/13/19 11:32 36.8 C 76 18 113/70 95 05/13/19 10:15 66 05/13/19 07:00 36.5 C 72 18 136/68 93
--- NOTE | 2019-05-13 17:17 | Operative Report ---
Post Operative Report Pre & Post Diagnosis Operation Date: 05/13/19 11:35 <No data on this case meets the specified criteria> left distal ureteral stone with hydroureteronephrosis and UTI I identified the patient and participated in the time-out.: Yes Procedure Cystoscopy left stent palcement Operation Date: 05/13/19 11:35 <No data on this case meets the specified criteria> Surgeon Nery Bone MD Lifeguard none Estimated Blood Loss 0 Findings Consistent with Post-Op Diagnosis clean bladder, moderate severe cystocele, very thick cloudy bloody urine draining once stent in Fluids 100 Specimens none Drains 6 fr 24 centimeter double J stent Anesthesia Type MAC Complications none Disposition Accompanied Patient To Recovery: Yes Disposition: Recovery Room Indications left 5mm distal ureteral stone with hydroureteronephrosis and uti Description of Procedure Patient was sedated and placed in lithotomy position. Her genitals were prepped and draped in sterile fashion. Time out held with team. I placed a 21 fr rigid cystoscope to bladder. The urethra is unremarkable. The UOs are slit shape and a bit lateral. She has a moderately severe cystocele. The bladder is clean with no inflammation. I placed a road runner wire up left ureter and placed a 24 centimeter 6 Fr double J stent easily. There is brisk cloudy bloody efflux under great pressure pouring out after stent placement. I left bladder empty and concluded case. She transferred to recovery under my escort, in stable condition. Plan: continue hospital stay to treat the UTI. plan stone removal surgery as outpatient in 1-2 weeks ASA 3 dirty case 1 seconds fluoro ceftriaxone antibiotic 11pm in Er last night I attest to the content of the Intraoperative Record and any orders documented therein. Any exceptions are noted below.
--- NOTE | 2019-05-13 17:20 | Fluoroscopy Report ---
INTRAOPERATIVE RADIOGRAPH CLINICAL HISTORY: Left ureteral stent placement. Fluoroscopy time: 1 second. FINDINGS: A single spot fluoroscopic view of the left upper quadrant is correlated with abdominal CT dated 05/12/2019. A catheter projects over the left renal pelvis. IMPRESSION: Intraoperative image from a left ureteral stent placement procedure as above. See operati ve report for detailed findings. Electronically signed by: Jerry Heart M.D. 05/13/2019 5:18 PM
--- NOTE | 2019-05-13 18:11 | Anesthesiology Progress Note ---
Date of Service May 13, 2019 Anesthesia Post Procedure Vital Signs Vital Signs: Temp Pulse Pulse Pulse Resp BP BP 05/13/19 17:35 36.9 C 92 H 18 05/13/19 17:25 91 H 18 05/13/19 17:15 36.7 C 91 H 20 05/13/19 16:29 37.1 C 97 H 20 182/118 H 05/13/19 15:51 81 05/13/19 15:48 36.9 C 86 17 157/70 H 05/13/19 11:32 36.8 C 76 18 113/70 05/13/19 10:15 66 05/13/19 07:00 36.5 C 72 18 136/68 05/13/19 03:45 36.4 C L 69 18 97/63 L 05/13/19 00:54 72 05/12/19 23:46 36.6 C 72 18 126/55 L 05/12/19 22:21 77 05/12/19 22:17 36.4 C L 80 18 163/70 H 05/12/19 21:13 81 18 162/81 H 05/12/19 20:46 81 18 05/12/19 20:15 36.5 C 85 18 05/12/19 19:29 85 18 05/12/19 18:50 88 24 BP Pulse Ox 05/13/19 17:35 125/76 98 05/13/19 17:25 151/87 H 98 05/13/19 17:15 162/70 H 99 05/13/19 16:29 92 05/13/19 15:51 05/13/19 15:48 94 05/13/19 11:32 95 05/13/19 10:15 05/13/19 07:00 93 05/13/19 03:45 93 05/13/19 00:54 05/12/19 23:46 96 05/12/19 22:21 05/12/19 22:17 94 05/12/19 21:13 96 05/12/19 20:46 202/171 H 92 05/12/19 20:15 195/98 H 96 05/12/19 19:29 195/98 H 96 05/12/19 18:50 197/126 H 95 Pain Intensity Abdomen: Pain Intensity: 4 Transfer of Care Handoff Completed per policy Notes Mental Status: alert / awake / arousable Patient Amnestic to Procedure: Yes Nausea / Vomiting: adequately controlled Pain: adequately controlled Airway Patency, RR, SpO2: stable & adequate BP & HR: stable & adequate Hydration State: stable & adequate Anesthetic Complications: no major complications apparent
[2019-05-13] MEDS: cefTRIAXone SODIUM 2,000 MG in DEXTROSE 5% 50 ML IV SCH (19:59)
[2019-05-13] MEDS: TAMSULOSIN HCL 0.4 MG CAP PO SCH (20:00)
[2019-05-13] MEDS: ATORVASTATIN 40 MG TAB PO SCH (20:01)
[2019-05-14] MEDS: ACETAMINOPHEN 325 MG TAB PO PRN ×2 (06:21→19:09)
[2019-05-14 07:08] LABS: Basophils # (auto) 0.01 K/uL (0-0.2); Basophils % (auto) 0.1 %; Eosinophils # (auto) 0.55 K/uL (0-0.5); Hematocrit (blood only) 29.9 % (37-47); Hemoglobin 8.6 g/dL (12.0-16.0); Immature Granulocytes # (auto) 0.01 K/uL (0.00-0.02); Immature Granulocytes % (auto) 0.1 %; Lymphocytes # (auto) 1.45 K/uL (1.2-3.4); Lymphocytes % (auto) 21.1 %; Mean Corpuscular Hemoglobin 22.6 pg (25-34); Mean Corpuscular Hgb Conc 28.8 g/dL (32-36); Mean Corpuscular Volume 78.7 fL (80-100); Mean Platelet Volume 9.3 fL (7.4-10.4); Monocytes # (auto) 0.72 K/uL (0.11-0.59); Monocytes % (auto) 10.5 %; Neutrophils # (auto) 4.14 K/uL (1.4-6.5); Neutrophils % (auto) 60.2 %; Platelet Count 185 K/uL (130-400); RDW Coefficient of Variation 17.7 % (11.5-14.5); RDW Standard Deviation 49.8 fL (36.4-46.3); White Blood Count 6.88 K/uL (4.8-10.8)
[2019-05-14 07:30] LABS: BUN Creatinine Ratio 11.4 (10-20); Calcium 9.1 mg/dl (8.5-10.1); Creatinine Clr Calc Pharmacy 42.3 ml/min; Est GFR (Non-African American) 43.1; Potassium 4.9 mmol/L (3.5-5.1)
[2019-05-14] MEDS: INSULIN ASPART 100 UNITS/ML 3 ML PEN SC SCH ×4 (08:32→20:43)
[2019-05-14] MEDS: LISINOPRIL 40 MG TAB PO SCH (08:33)
[2019-05-14] MEDS: PANTOprazole 40 MG TAB PO SCH ×2 (08:33→20:42)
[2019-05-14] MEDS: CARVEDILOL 25 MG TAB PO SCH ×2 (08:33→20:34)
[2019-05-14] MEDS: MAGNESIUM CHLORIDE 64MG DELAYED REL TAB PO SCH ×2 (08:33→20:52)
[2019-05-14] MEDS: GABAPENTIN 800 MG TAB PO SCH ×3 (08:33→20:35)
--- NOTE | 2019-05-14 12:20 | Hospitalist Progress Note ---
Date of Service May 14, 2019 Assessment & Plan (1) Left ureteral calculus: Status post cystoscopy with left pediatric stent placement on 05/13 Clinically much better as of today Likely discharge tomorrow (2) Hydronephrosis, left: Pt is 78 y/o F with PMH HTN, dyslipidemia, DM II, GERD, CKD III, diastolic dysfunction, LVH, h/o kidney stones presented with c/o LLQ pain today. C/O dysuria x 1 day. Denies fever/chills, N/V, hematuria Noted to have obstructive stone in the left ureter with associated hydronephrosis on the left side In ER received 1L NSS bolus, Toradol total 30mg IV, Zofran, Morphine 4mg Has been on intravenous ceftriaxone for possible UTI Urine and blood culture have been sent Appreciate urology input and recommendation Urology consult, Dr Bone recommends Plan on doing procedure tomorrow afternoon recommends clear fluids for breakfast tomorrow, then NPO. If pt would develop fever will need notified for urgent procedure CBC, BMP are improving Monitor PRP (3) Hypertension: BP elevated in ER May be secondary to pain. Pt also needs PM dose BP meds -Continue carvedilol, lisinopril -Hydralazine prn SBP>160 -Blood pressure seems to be under control (4) Acute kidney failure: Presented with left hydronephrosis with acute kidney failure Creatinine went up to 1.46 It has been improving (5) CKD (chronic kidney disease), stage III: Cr: 1.18. Baseline 0.9-1.0 -Monitor renal functions -Avoid nephrotoxic agents when possible -Creatinine has been up at 1.46 -We will monitor PRP while in the hospital (6) Diabetes: DM II A1c: 6.9 on 01/08/19 -Hold metformin -Novolog sliding scale per protocol (7) Dyslipidemia: -Continue statin (8) Diastolic dysfunction: 2016 echo with EF: 60%, grade 1 diastolic dysfunction, LVF -Monitor I&O's (9) GERD (gastroesophageal reflux disease): -Continue PPI DVT Prophylaxis -SCDs for now in case of procedure Full Code as per discussion with pt Follows with Dr House for routine care Subjective 05/13 The patient was seen and examined in medical telemetry unit She is a 78-year-old obese female with hypertension, hyperlipidemia, diabetes type 2, CKD stage III and history of kidney stones presented with left lower quadrant pain with dysuria for 1 day She was noted to have moderate left-sided hydronephrosis secondary to obstructing 5 x 4 x 6 mm calculus at the distal left ureter approximately 4 cm proximal to the ureterovesical junction Still has some pain in the left flank and the pain goes down to the left groin Denies any fever and/or chills 05/14 The patient was seen and examined in medical floor She is status post a cystoscopy with left pediatric stent placement on 05/13 Still has some abdominal discomfort Denies any other symptoms Review of Systems Review of Systems: All systems reviewed and are unremarkable except as noted below Genitourinary: Left flank pain that goes down to left groin Physical Exam Constitutional: + ill appearing; no acute distress Eyes: PERRL, conjunctivae normal, anicteric sclerae ENMT: external ear and nose normal, oropharynx normal Neck: trachea midline, no thyromegaly Respiratory: normal respiratory effort, lungs clear to auscultation Cardiovascular: Rate/Rhythm: regular rate and regular rhythm Heart Sounds: no murmur Gastrointestinal (Abdomen): Inspection/Auscultation: abdomen normal to inspection and normal bowel sounds; abdomen not distended Percussion/Palpation: + abdomen tender (Left renal angle and left lower quadrant) No renal angle tenderness Lymphatic: no cervical or axillary lymphadenopathy Results & Data Vital Signs (Past 12 Hours) Vital Signs Temp Pulse Pulse Pulse Resp BP Pulse Ox 05/14/19 11:47 36.8 C 82 20 140/65 91 05/14/19 09:00 83 05/14/19 07:15 36.8 C 76 18 143/80 H 91 05/14/19 03:07 37.0 C 89 20 151/76 H 92 Laboratory Results Short CBC 05/14/19 Range/Units 06:32 WBC 6.88 (4.8-10.8) K/uL Hgb 8.6 L (12.0-16.0) g/dL Hct 29.9 L (37-47) % Plt Count 185 (130-400) K/uL BMP 05/14/19 06:32 Sodium 140 Potassium 4.9 Chloride 111 H Carbon Dioxide 27 BUN 14 Creatinine 1.21 H Glucose 161 H Calcium 9.1 Medications Administered Current Inpatient Medications Acetaminophen (Tylenol) 650 mg PO Q4H PRN PRN Reason: Pain or Fever Stop: 06/11/19 22:04 Last Admin: 05/14/19 06:21 Dose: 650 mg Documented by: Hydrocodone Bitart/Acetaminophen ([place] 5/325) 1 tab PO Q6H PRN PRN Reason: Moderate Pain Stop: 05/26/19 22:04 Last Admin: 05/13/19 09:35 Dose: 1 tab Documented by: Artificial Tears (Artificial Tears) 1 drops OP BID PRN PRN Reason: Dry Eye(S) Atorvastatin Calcium (Lipitor) 40 mg PO HS URI Stop: 06/11/19 22:04 Last Admin: 05/13/19 20:01 Dose: 40 mg Documented by: Carvedilol (Coreg) 25 mg PO BID URI Stop: 06/11/19 20:59 Last Admin: 05/14/19 08:33 Dose: 25 mg Documented by: Dextrose (Dextrose 50%) 25 - 50 ml IV UD PRN; Protocol PRN Reason: Hypoglycemia Protocol Stop: 06/11/19 22:04 Gabapentin (Neurontin) 800 mg PO TID URI Stop: 06/11/19 22:04 Last Admin: 05/14/19 08:33 Dose: 800 mg Documented by: Glucagon (Glucagen) 1 mg SQ UD PRN; Protocol PRN Reason: Hypoglycemia Protocol Stop: 06/11/19 22:04 Glucose (Dex4 Glucose) 4 - 8 tabs PO UD PRN; Protocol PRN Reason: Hypoglycemia Protocol Stop: 06/11/19 22:04 Glucose (Glucose 40%) 15 - 30 gm PO UD PRN; Protocol PRN Reason: Hypoglycemia Protocol Stop: 06/11/19 22:04 Hydralazine HCl (Hydralazine Hcl) 10 mg IV Q6H PRN PRN Reason: Hypertension Stop: 06/11/19 22:04 Ceftriaxone Sodium 2,000 mg/ (Dextrose) 70 mls @ 100 mls/hr IV Q24H URI; Protocol Stop: 05/22/19 19:59 Last Infusion: 05/13/19 21:47 Dose: Infused Documented by: Insulin Aspart (Novolog Flexpen) 0 units SC ACHS URI Stop: 06/11/19 22:29 Last Admin: 05/14/19 08:32 Dose: 5 units Documented by: Lisinopril (Zestril) 40 mg PO DAILY URI Stop: 06/12/19 08:59 Last Admin: 05/14/19 08:33 Dose: 40 mg Documented by: Magnesium Chloride (Slow-Mag) 64 mg PO BID URI Stop: 06/11/19 22:14 Last Admin: 05/14/19 08:33 Dose: 64 mg Documented by: Miscellaneous (Carbohydrates For Hypoglycemia) 15 - 30 gm PO UD PRN PRN Reason: Hypoglycemia Protocol Stop: 06/11/19 22:04 Morphine Sulfate (Morphine Sulfate) 2 mg IV Q2H PRN PRN Reason: Severe Pain Stop: 05/26/19 22:04 Ondansetron HCl (Zofran) 4 mg IV Q6H PRN PRN Reason: Nausea Stop: 06/11/19 22:04 Pantoprazole Sodium (Protonix) 40 mg PO BID URI Stop: 06/11/19 22:04 Last Admin: 05/14/19 08:33 Dose: 40 mg Documented by: Polyethylene Glycol (Miralax Powder Packet) 17 gm PO DAILY PRN PRN Reason: Constipation Stop: 06/11/19 22:04 Tamsulosin HCl (Flomax) 0.4 mg PO HS [facility] Stop: 05/16/19 21:01 Last Admin: 05/13/19 20:00 Dose: 0.4 mg Documented by:
[2019-05-14] MEDS: cefTRIAXone SODIUM 2,000 MG in DEXTROSE 5% 50 ML IV SCH (20:28)
[2019-05-14] MEDS: ATORVASTATIN 40 MG TAB PO SCH (20:36)
[2019-05-14] MEDS: TAMSULOSIN HCL 0.4 MG CAP PO SCH (21:15)
[2019-05-14] MEDS: HYDROCODONE/ACETAMOPHEN 5/325MG TAB PO PRN (22:20)
[2019-05-15 07:18] VITALS: BP 165/83; TEMP 98.6; O2SAT 94
[2019-05-15] MEDS: CARVEDILOL 25 MG TAB PO SCH (08:21)
[2019-05-15] MEDS: LISINOPRIL 40 MG TAB PO SCH (08:21)
[2019-05-15] MEDS: GABAPENTIN 800 MG TAB PO SCH (08:21)
[2019-05-15] MEDS: PANTOprazole 40 MG TAB PO SCH (08:21)
[2019-05-15] MEDS: MAGNESIUM CHLORIDE 64MG DELAYED REL TAB PO SCH (08:22)
[2019-05-15] MEDS: INSULIN ASPART 100 UNITS/ML 3 ML PEN SC SCH (08:23)
[2019-05-15 09:03] LABS: BUN Creatinine Ratio 12.5 (10-20); Calcium 9.7 mg/dl (8.5-10.1); Creatinine Clr Calc Pharmacy 49.7 ml/min; Est GFR (African American) 60.7; Est GFR (Non-African American) 52.4; Potassium 4.7 mmol/L (3.5-5.1)
--- NOTE | 2019-05-15 10:25 | Hospitalist Progress Note ---
Date of Service May 15, 2019 Assessment & Plan (1) Left ureteral calculus: Status post cystoscopy with left Ureteric stent placement on 05/13 Clinically much better as of today Denies any symptoms whatsoever Will be discharged home this morning Will have outpatient appointment with urologist (2) Hydronephrosis, left: Pt is 78 y/o F with PMH HTN, dyslipidemia, DM II, GERD, CKD III, diastolic dysfunction, LVH, h/o kidney stones presented with c/o LLQ pain today. C/O dysuria x 1 day. Denies fever/chills, N/V, hematuria Noted to have obstructive stone in the left ureter with associated hydronephrosis on the left side In ER received 1L NSS bolus, Toradol total 30mg IV, Zofran, Morphine 4mg Has been on intravenous ceftriaxone for possible UTI Urine and blood culture have been sent Appreciate urology input and recommendation Urology consult-appreciate input and recommendation Kidney function has been normalized (3) Hypertension: BP elevated in ER May be secondary to pain. Pt also needs PM dose BP meds -Continue carvedilol, lisinopril -Hydralazine prn SBP>160 -Blood pressure seems to be under control (4) Acute kidney failure: Presented with left hydronephrosis with acute kidney failure Creatinine went up to 1.46 It has been improving-normalized (5) CKD (chronic kidney disease), stage III: Cr: 1.18. Baseline 0.9-1.0 -Monitor renal functions -Avoid nephrotoxic agents when possible -Creatinine has been up at 1.46 -We will monitor PRP while in the hospital (6) Diabetes: DM II A1c: 6.9 on 01/08/19 -Hold metformin -Novolog sliding scale per protocol (7) Dyslipidemia: -Continue statin (8) Diastolic dysfunction: 2016 echo with EF: 60%, grade 1 diastolic dysfunction, LVF -Monitor I&O's (9) GERD (gastroesophageal reflux disease): -Continue PPI DVT Prophylaxis -SCDs for now in case of procedure Full Code as per discussion with pt Follows with Dr House for routine care Subjective 05/13 The patient was seen and examined in medical telemetry unit She is a 78-year-old obese female with hypertension, hyperlipidemia, diabetes type 2, CKD stage III and history of kidney stones presented with left lower quadrant pain with dysuria for 1 day She was noted to have moderate left-sided hydronephrosis secondary to obstructing 5 x 4 x 6 mm calculus at the distal left ureter approximately 4 cm proximal to the ureterovesical junction Still has some pain in the left flank and the pain goes down to the left groin Denies any fever and/or chills 05/14 The patient was seen and examined in medical floor She is status post a cystoscopy with left pediatric stent placement on 05/13 Still has some abdominal discomfort Denies any other symptoms 05/15 The patient was seen and examined in the medical floor She has been feeling a lot better and denies any symptoms No abdominal pain and no flank pain No fever and/or chills Review of Systems Review of Systems: All systems reviewed and are unremarkable except as noted below Gastrointestinal: No more flank and/or renal angle pain or tenderness Physical Exam Constitutional: + ill appearing; no acute distress Eyes: PERRL, conjunctivae normal, anicteric sclerae ENMT: external ear and nose normal, oropharynx normal Neck: trachea midline, no thyromegaly Respiratory: normal respiratory effort, lungs clear to auscultation Cardiovascular: Rate/Rhythm: regular rate and regular rhythm Heart Sounds: no murmur Gastrointestinal (Abdomen): Inspection/Auscultation: abdomen normal to inspection and normal bowel sounds; abdomen not distended Percussion/Palpation: + abdomen tender (Left renal angle and left lower quadrant) Lymphatic: no cervical or axillary lymphadenopathy Results & Data Vital Signs (Past 12 Hours) Vital Signs Temp Pulse Pulse Resp BP BP Pulse Ox 05/15/19 09:20 81 05/15/19 07:18 37.0 C 83 20 165/83 H 94 05/15/19 05:14 124/62 05/15/19 05:01 36.8 C 92 H 20 175/70 H 92 05/14/19 23:12 166/79 H Laboratory Results BMP 05/15/19 08:19 Sodium 139 Potassium 4.7 Chloride 107 Carbon Dioxide 27 BUN 13 Creatinine 1.03 Glucose 150 H Calcium 9.7 Medications Administered Current Inpatient Medications Acetaminophen (Tylenol) 650 mg PO Q4H PRN PRN Reason: Pain or Fever Stop: 06/11/19 22:04 Last Admin: 05/14/19 19:09 Dose: 650 mg Documented by: Hydrocodone Bitart/Acetaminophen ([place] 5/325) 1 tab PO Q6H PRN PRN Reason: Moderate Pain Stop: 05/26/19 22:04 Last Admin: 05/14/19 22:20 Dose: 1 tab Documented by: Artificial Tears (Artificial Tears) 1 drops OP BID PRN PRN Reason: Dry Eye(S) Atorvastatin Calcium (Lipitor) 40 mg PO HS URI Stop: 06/11/19 22:04 Last Admin: 05/14/19 20:36 Dose: 40 mg Documented by: Carvedilol (Coreg) 25 mg PO BID URI Stop: 06/11/19 20:59 Last Admin: 05/15/19 08:21 Dose: 25 mg Documented by: Dextrose (Dextrose 50%) 25 - 50 ml IV UD PRN; Protocol PRN Reason: Hypoglycemia Protocol Stop: 06/11/19 22:04 Gabapentin (Neurontin) 800 mg PO TID URI Stop: 06/11/19 22:04 Last Admin: 05/15/19 08:21 Dose: 800 mg Documented by: Glucagon (Glucagen) 1 mg SQ UD PRN; Protocol PRN Reason: Hypoglycemia Protocol Stop: 06/11/19 22:04 Glucose (Dex4 Glucose) 4 - 8 tabs PO UD PRN; Protocol PRN Reason: Hypoglycemia Protocol Stop: 06/11/19 22:04 Glucose (Glucose 40%) 15 - 30 gm PO UD PRN; Protocol PRN Reason: Hypoglycemia Protocol Stop: 06/11/19 22:04 Hydralazine HCl (Hydralazine Hcl) 10 mg IV Q6H PRN PRN Reason: Hypertension Stop: 06/11/19 22:04 Ceftriaxone Sodium 2,000 mg/ (Dextrose) 70 mls @ 100 mls/hr IV Q24H URI; Protocol Stop: 05/22/19 19:59 Last Infusion: 05/14/19 21:59 Dose: Infused Documented by: Insulin Aspart (Novolog Flexpen) 0 units SC ACHS URI Stop: 06/11/19 22:29 Last Admin: 05/15/19 08:23 Dose: 5 units Documented by: Lisinopril (Zestril) 40 mg PO DAILY URI Stop: 06/12/19 08:59 Last Admin: 05/15/19 08:21 Dose: 40 mg Documented by: Magnesium Chloride (Slow-Mag) 64 mg PO BID URI Stop: 06/11/19 22:14 Last Admin: 05/15/19 08:22 Dose: 64 mg Documented by: Miscellaneous (Carbohydrates For Hypoglycemia) 15 - 30 gm PO UD PRN PRN Reason: Hypoglycemia Protocol Stop: 06/11/19 22:04 Morphine Sulfate (Morphine Sulfate) 2 mg IV Q2H PRN PRN Reason: Severe Pain Stop: 05/26/19 22:04 Ondansetron HCl (Zofran) 4 mg IV Q6H PRN PRN Reason: Nausea Stop: 06/11/19 22:04 Pantoprazole Sodium (Protonix) 40 mg PO BID [facility] Stop: 06/11/19 22:04 Last Admin: 05/15/19 08:21 Dose: 40 mg Documented by: Polyethylene Glycol (Miralax Powder Packet) 17 gm PO DAILY PRN PRN Reason: Constipation Stop: 06/11/19 22:04 Tamsulosin HCl (Flomax) 0.4 mg PO HS URI Stop: 05/16/19 21:01 Last Admin: 05/14/19 21:15 Dose: 0.4 mg Documented by:
[2019-05-15 10:51] VITALS: PULSE 115
--- NOTE | 2019-05-17 10:42 | Discharge Summary ---
Date of Service May 17, 2019 Admission HPI Per Admitting Provider Pt is 78 y/o F with PMH HTN, dyslipidemia, DM II, GERD, CKD III, diastolic dysfunction, LVH presented to ER with c/o LLQ pain today. Describes as sharp pain and rates 8/10 on pain scale. Denies nausea or vomiting. Reports dysuria x 1 day. Reports h/o kidney stones in past requiring surgical removal. Followed with Dr Bone in past. States 2 days ago had loose stools after drinking prune juice. No BM yesterday or today. Denies fever/chills, diaphoresis, hematuria, urinary frequency, urinary retention, AGUIAR, dizziness, syncope, vision changes, neck pain, CP, SOB, orthopnea, palpitations, cough, sore throat, choking, otalgia, rhinorrhea, paresthesias, weakness, extremity weakness, extremity edema, rashes. Admission Exam Per Admitting Provider Physical Exam: General: mild distress secondary to LLQ pain, obese Head: normocephalic, atraumatic Eyes: PERRL, EOM's intact, conjunctiva non-injected, anicteric ENT: normal inspection external ears, nose, mucous membranes moist Neck: supple, trachea midline Lungs: no respiratory distress, +rales bilateral bases CV: RRR, no murmur, no pretibial edema Abd: normal BS, soft, +tenderness to palpation LLQ, no rebound. No CVA tenderness to percussion at this time Ext: no cyanosis, no calf tenderness Neuro: A&O x 3, no focal deficits noted, normal affect Skin: warm, dry Principal Diagnosis Left ureteral stone status post cystoscopy with left ureteric stent placement, hypertension, VALERIY-resolved, type 2 diabetes Discharge Exam Constitutional + ill appearing; no acute distress Eyes PERRL, conjunctivae normal, anicteric sclerae ENMT external ear and nose normal, oropharynx normal Neck trachea midline, no thyromegaly Respiratory normal respiratory effort, lungs clear to auscultation Cardiovascular Rate/Rhythm: regular rate and regular rhythm Heart Sounds: no murmur Gastrointestinal (Abdomen) Inspection/Auscultation: abdomen normal to inspection and normal bowel sounds; abdomen not distended Percussion/Palpation: + abdomen tender (Left renal angle and left lower quadrant) Lymphatic no cervical or axillary lymphadenopathy Discharge Data Allergies Allergy/AdvReac Type Severity Reaction Status Date / Time oxycodone Allergy Unknown SEDATION Verified 05/13/19 16:45 Consultations 05/12/19 18:48 ED Decision to Admit Stat 05/12/19 22:05 Consult Case Management - Discharge Planning Routine Consult Urology Routine Procedures Performed Operation Date: 05/13/19 11:35 Actual Procedures p Cystoscopy Left UrteralStent Insertion(Left) - Nery Bone MD Ordered Studies 05/12/19 17:09 CT abd pelvis wo con Stat 05/13/19 16:00 FL retrograde includes kub Routine Hospital Course (1) Left ureteral calculus: Status post cystoscopy with left Ureteric stent placement on 05/13 Clinically much better as of today Denies any symptoms whatsoever Will be discharged home this morning Will have outpatient appointment with urologist (2) Hydronephrosis, left: Pt is 78 y/o F with PMH HTN, dyslipidemia, DM II, GERD, CKD III, diastolic dysfunction, LVH, h/o kidney stones presented with c/o LLQ pain today. C/O dysuria x 1 day. Denies fever/chills, N/V, hematuria Noted to have obstructive stone in the left ureter with associated hydronephrosis on the left side In ER received 1L NSS bolus, Toradol total 30mg IV, Zofran, Morphine 4mg Has been on intravenous ceftriaxone for possible UTI Urine and blood culture have been sent Appreciate urology input and recommendation Urology consult-appreciate input and recommendation Kidney function has been normalized (3) Hypertension: BP elevated in ER May be secondary to pain. Pt also needs PM dose BP meds -Continue carvedilol, lisinopril -Hydralazine prn SBP>160 -Blood pressure seems to be under control (4) Acute kidney failure: Presented with left hydronephrosis with acute kidney failure Creatinine went up to 1.46 It has been improving-normalized (5) CKD (chronic kidney disease), stage III: Cr: 1.18. Baseline 0.9-1.0 -Monitor renal functions -Avoid nephrotoxic agents when possible -Creatinine has been up at 1.46 -We will monitor PRP while in the hospital (6) Diabetes: DM II A1c: 6.9 on 01/08/19 -Hold metformin -Novolog sliding scale per protocol (7) Dyslipidemia: -Continue statin (8) Diastolic dysfunction: 2016 echo with EF: 60%, grade 1 diastolic dysfunction, LVF -Monitor I&O's (9) GERD (gastroesophageal reflux disease): -Continue PPI DVT Prophylaxis -SCDs for now in case of procedure Full Code as per discussion with pt Follows with Dr House for routine care Total Time Total Time Spent Total Time Spent (In Minutes): 35 minutes Total Time Includes: Examination of the Patient, Discharge Planning, Medication Reconciliation and Communication With Other Providers Discharge Plan Discharge Items Patient Disposition: Home - Self-Care Reason For Visit: L URETER CALCULUS, L HYDRONEPHROSIS Discharge Diagnosis: Left ureteral stone status post cystoscopy with left ureteric stent placement, hypertension, VALERIY-resolved, type 2 diabetes Condition on Discharge: Good Activity: Resume your previous activity Non-emergency contact: Primary Care Provider Call non-emergency contact if: you have any medication questions and your symptoms worsen Follow-up/Referrals: Case Huose MD [Primary Care Provider] - 05/19/19 1:25 pm (Dr. Bone office will call with an appointment within 7 to 10 days) Diet: Carb Consistent or DM2 Addtl Attending Provider Instructions: Take precautions to avoid fall Drink more fluid Pending Studies at Discharge: No Stand-Alone Forms: My X[employer], Smoking Cessation Medications and DC Order Prescriptions: New tamsulosin 0.4 mg Capsule 0.4 mg PO HS 30 Days Qty: 30 RF: 0 Continued carvedilol 25 mg Tablet 25 mg PO BID Qty: 0 RF: 0 metformin 1,000 mg Tablet 1,000 mg PO QAM Qty: 0 RF: 0 omega-3 fatty acids 1,000 mg Capsule 2,000 mg PO DAILY Qty: 0 RF: 0 metformin 1,000 mg Tablet 500 mg PO BID Qty: 0 RF: 0 omeprazole 20 mg Tablet,Delayed Release (Dr/Ec) 20 mg PO BID Qty: 0 RF: 0 coenzyme Q10 100 mg Capsule 100 mg PO DAILY Qty: 0 RF: 0 lorazepam 0.5 mg Tablet 0.5 mg PO BID PRN (Reason: Anxiety) Qty: 0 RF: 0 gabapentin 800 mg Tablet 800 mg PO TID Qty: 0 RF: 0 diphenhydramine HCl [Benadryl] 25 mg Capsule 25 mg PO DAILY PRN (Reason: Allergy Symptoms) Qty: 0 RF: 0 lisinopril 40 mg Tablet 40 mg PO DAILY Qty: 0 RF: 0 atorvastatin 40 mg Tablet 40 mg PO HS Qty: 0 RF: 0 dicyclomine 10 mg Capsule 10 mg PO QID PRN (Reason: Stomach Upset) Qty: 0 RF: 0 valerian root 100 mg Capsule 100 mg PO DAILY RF: 0 metronidazole [Metrogel] 1 % Gel 1 applic TOPICAL BID PRN (Reason: Rash) RF: 0 cholecalciferol (vitamin D3) 50,000 unit capsule 50,000 unit PO MONTHLY RF: 0 Systane Ultra 0.4-0.3 % Drops 1 drp OPHTHALMIC (EYE) BID PRN (Reason: Dry Eye(S)) RF: 0 Slow-Mag 71.5 mg Tablet,Delayed Release (Dr/Ec) 71.5 mg PO BID RF: 0 Discharge Orders: Discharge Order (Routine); Ordered 05/15/19 Ordered By: Shayan Gonsales/Other Patient Handouts: Hyperglycemia, Hypoglycemia, Diabetes Type 2 Coping Admission Data Admit Date/Time: 05/12/19 19:35 Attending Provider: Shayan Pinto Admit Provider: Ash Kaufman Primary Care Provider: Case House Other Providers: Ash Kaufman ; Nery Bone Other Interventions: Discharge Summary Assessment (RN) Last Done: 05/15/19 10:48 DC Date/Time DO NOT enter until pt leaves facility: 05/15/19 11:16
== END 2019-05-15 11:16 | disposition home or self-care (01) | DRG 660 ==
LOC: ED 16:51 → SUATTDRO 19:35 → 2N 19:35

== ENCOUNTER 2019-06-04 15:06 | Inpatient (IN) ==
[2019-06-04] MEDS ORDERED: SODIUM CHLORIDE 0.9% 1000ML 1,000 ML IV ONE ×2 (15:17→15:20)
--- NOTE | 2019-06-04 15:30 | XRay Report ---
SINGLE VIEW CHEST CLINICAL HISTORY: Sepsis. FINDINGS: An AP, portable, upright chest radiograph is compared to study dated 05/12/2019. The examina tion is degraded by portable technique and patient rotation. The heart is enlarged noting atheroscler otic calcification of the thoracic aorta. The pulmonary vasculature is noncongested. Atelectasis is n oted at the left lung base. No airspace consolidation or large pleural effusion is identified. No pne umothorax is seen. The skeletal structures are osteopenic. The bony thorax is grossly intact. IMPRESSION: Cardiomegaly with no acute cardiopulmonary abnormality. Electronically signed by: Jerry Heart M.D. 06/04/2019 3:29 PM
[2019-06-04 16:20] LABS: Base Excess VBG -7.3 mEq/L; pH VBG 7.33 (7.36-7.41)
[2019-06-04 16:29] LABS: Basophils # (auto) 0.01 K/uL (0-0.2); Basophils % (auto) 0.2 %; Eosinophils # (auto) 0.01 K/uL (0-0.5); Eosinophils % (auto) 0.2 %; Hematocrit (blood only) 31.2 % (37-47); Immature Granulocytes # (auto) 0.04 K/uL (0.00-0.02); Immature Granulocytes % (auto) 0.6 %; Lymphocytes # (auto) 0.82 K/uL (1.2-3.4); Lymphocytes % (auto) 13.3 %; Mean Corpuscular Hemoglobin 22.7 pg (25-34); Mean Corpuscular Hgb Conc 28.8 g/dL (32-36); Mean Corpuscular Volume 78.8 fL (80-100); Mean Platelet Volume 9.2 fL (7.4-10.4); Monocytes # (auto) 0.71 K/uL (0.11-0.59); Monocytes % (auto) 11.5 %; Neutrophils # (auto) 4.58 K/uL (1.4-6.5); Neutrophils % (auto) 74.2 %; Platelet Count 177 K/uL (130-400); RDW Coefficient of Variation 18.6 % (11.5-14.5); RDW Standard Deviation 53.5 fL (36.4-46.3); Red Blood Count 3.96 M/uL (4.2-5.4); White Blood Count 6.17 K/uL (4.8-10.8)
[2019-06-04 16:35] LABS: Appearance Urine Cloudy (Clear); Bacteria Urine Automated Negative (Negative); Bilirubin Urine Negative (Negative); Blood Urine 2+ (Negative); Color Urine Yellow; Epithelial Cell Urine Auto >30 /lpf (0-5); Glucose Urine UA Negative (Negative); Ketones Urine Trace (Negative); Leukocyte Esterase Urine 1+ (Negative); Nitrite Urine Negative (Negative); Protein Urine 3+ (Negative); RBC Urine Automated 0-4 /hpf (0-4); Specific Gravity Urine 1.016 (1.000-1.030); Urobilinogen Urine Negative (Negative); WBC Urine Automated >30 /hpf (0-5)
[2019-06-04 16:37] LABS: INR 1.1 (0.9-1.1); Partial Thromboplastin Time 25.8 Seconds (21.0-31.0); Prothrombin Time 11.2 Seconds (9.0-12.0)
[2019-06-04 16:45] LABS: Albumin Level 2.8 gm/dl (3.4-5.0); BUN Creatinine Ratio 10.2 (10-20); Calcium 8.8 mg/dl (8.5-10.1); Creatinine Clr Calc Pharmacy 29.7 ml/min; Est GFR (African American) 33.1; Est GFR (Non-African American) 28.6; Potassium 4.1 mmol/L (3.5-5.1)
[2019-06-04 16:48] LABS: Albumin Globulin Ratio 0.8 (0.9-2); Bilirubin,Total 0.5 mg/dl (0.2-1); Globulin 3.7 gm/dl (2.5-4.0); Total Protein 6.5 gm/dl (6.4-8.2)
--- NOTE | 2019-06-04 16:53 | CT Scan Report ---
CT head/brain wo con CLINICAL HISTORY: Acute change in mental status COMPARISON STUDY: May 15, 2017 TECHNIQUE: Axial CT of the brain is performed from the vertex to the skull base. IV contrast was not administered for this examination. A dose lowering technique was utilized adhering to the principles of ALARA. CT DOSE: FINDINGS: No intra or extra-axial mass lesions are visualized. There is no CT evidence of acute cortical infarc tion. There is no evidence of midline shift. There is no acute hemorrhage. No calvarial fractures ar e visualized. There are patchy white matter hypodensities likely on a small vessel basis. There is basal ganglia an d cerebellar calcification, similar to the preceding examination. There is no evidence of pathologic ventricular dilatation. There is no evidence of acute sinusitis IMPRESSION: No acute intracranial findings Electronically signed by: Babatunde Morin M.D. 06/04/2019 4:51 PM
--- NOTE | 2019-06-04 17:03 | CT Scan Report ---
CT SCAN OF THE ABDOMEN AND PELVIS WITHOUT CONTRAST CLINICAL HISTORY: Generalized abdominal pain COMPARISON STUDY: 05/12/2019 TECHNIQUE: CT scan of the abdomen and pelvis was performed from the lung bases to the proximal femurs . Images are reviewed in the axial, sagittal, and coronal planes. IV contrast was not administered fo r this examination. A dose lowering technique was utilized adhering to the principles of ALARA. CT DOSE: 2338.38 mGy.cm FINDINGS: Lower chest: There is basilar interstitial thickening and subpleural cystic change. There is a small hiatal hernia Liver: The unenhanced liver is normal in size, contour, and attenuation. There is no intrahepatic monie iary ductal dilatation. Gallbladder: Unremarkable. Spleen: Normal in size and attenuation. Pancreas: Unremarkable. Adrenal glands: Unremarkable. Kidneys: There are tiny nonobstructing right renal calculi, the largest of which measures 2.5 mm. The re are punctate left renal calculi. There is left-sided hydronephrosis and hydroureter. The previousl y identified distal left ureteral calculus is no longer visualized. There has been resolution of the previously identified left-sided perinephric stranding. Bowel: There are no transition zones to indicate bowel obstruction. There is extensive colonic divert iculosis. There are no acute peridiverticular inflammatory changes. There are no findings to indicate acute diverticulitis. Peritoneum: There is no intraperitoneal free air or abdominal ascites. Vasculature: There is mild aortic ectasia measuring up to 25 mm in diameter Adenopathy: None. Pelvic viscera: The uterus is surgically absent. There is an indwelling Hernandez catheter. Air within th e bladder is likely iatrogenic. Skeletal structures: No destructive osseous lesions are seen. IMPRESSION: 1. No evidence of bowel obstruction. No evidence of free air 2. Extensive pandiverticulosis. No evidence of acute diverticulitis 3. Bilateral nephrolithiasis 4. Mild left-sided hydronephrosis and left hydroureter with resolution of the previously identified p erinephric infiltration. The previously identified distal left ureteral calculus is no longer visuali zed. The left-sided hydronephrosis may represent a residua from prior obstruction, or could be second dean to ureteral edema status post instrumentation. Clinical follow-up will be necessary. Electronically signed by: Babatunde Morin M.D. 06/04/2019 5:01 PM
[2019-06-04] MEDS ORDERED: cefTRIAXone SODIUM 1,000 MG/50 ML BAG IV STA (17:05)
[2019-06-04] MEDS ORDERED: FLUCONAZOLE 50 MG TAB PO ONE (17:17)
--- NOTE | 2019-06-04 18:17 | Emergency Department Note ---
Entered by Denia Michaels acting as a scribe for Ajay Live DO History of Present Illness General Chief complaint: Illness Stated complaint: WEAKNESS Time Seen by Provider: 06/04/19 15:06 Source: patient, family () and EMS History of Present Illness Onset (ago): hour(s) (17) Location: head (general) Pain Consistency: + other (multiple episodes) Quality: + other (falls) Associated symptoms: + denies other symptoms (runny nose, abdominal pain, diarrhea, head injury) and + weakness; no chest pain, no cough, no nausea/vomiting and no shortness of breath The patient is a 78 year old female who presents to the Emergency Room with complaints of multiple episodes of falls with the first occurring 17 hours ago. EMS states the patient fell out of bed but did not want to come to the ER. EMS states the patient fell two times earlier today once out of a chair in the kitchen. The patient denies hitting her head. The patient reports increasing weakness over the last 3 days. She denies cough, runny nose, abdominal pain, chest pain, nausea, vomiting, diarrhea, and shortness of breath. The patient's reports the patient was admitted to the hospital 3 weeks ago for abdominal pain and kidney stones. He notes the patient's kidney stone was removed 8 days ago, and the patient has been taking antibiotics since. She reports a history of diabetes. Home Medications Home Medications Medication Instructions Recorded Confirmed Type carvedilol 25 mg PO BID #0 10/15/13 06/04/19 History metformin 1,000 mg PO BIDM #0 10/15/13 06/04/19 History metformin 500 mg PO QDL #0 10/15/13 06/04/19 History omega-3 fatty acids 2,000 mg PO DAILY #0 10/15/13 06/04/19 History omeprazole 20 mg PO QAM #0 10/15/13 06/04/19 History coenzyme Q10 100 mg PO DAILY #0 01/04/16 06/04/19 History diphenhydramine HCl [Benadryl] 25 mg PO DAILY PRN #0 02/21/16 06/04/19 History gabapentin 800 mg PO TID #0 tab 02/21/16 06/04/19 History lisinopril 40 mg PO QAM #0 02/21/16 06/04/19 History lorazepam 0.5 mg PO BID PRN #0 02/21/16 06/04/19 History atorvastatin 40 mg PO QAM #0 04/09/17 06/04/19 History dicyclomine 10 mg PO QID PRN #0 04/09/17 06/04/19 History metronidazole [Metrogel] 1 applic TOPICAL BID PRN 12/09/18 06/04/19 History valerian root 100 mg PO DAILY 12/09/18 06/04/19 History Slow-Mag 71.5 mg PO BIDM 05/12/19 06/04/19 History Systane Ultra 1 drp OPHTHALMIC (EYE) BID PRN 05/12/19 06/04/19 History cholecalciferol (vitamin D3) 50,000 unit PO MONTHLY 05/12/19 06/04/19 History tamsulosin 0.4 mg PO HS 30 Days #30 cap 05/15/19 06/04/19 Rx phenazopyridine [Pyridium] 200 mg PO Q8H PRN #9 tab 05/26/19 06/04/19 Rx Allergies Allergy/AdvReac Type Severity Reaction Status Date / Time oxycodone Allergy Intermediate SEDATED Verified 06/04/19 15:54 Past Med/Surg History Medical History Anxiety CKD (chronic kidney disease), stage III (Chronic) Diabetes mellitus, type 2 Dry eye syndrome Dyslipidemia (Chronic) GERD (gastroesophageal reflux disease) (Chronic) Hypertension (Chronic) Kidney stones (Chronic) Osteoarthritis Peripheral neuropathy Surgical History History of appendectomy History of carpal tunnel release left History of cataract surgery RT/LEFT History of discectomy LUMBAR (TOTAL 2 LUMBAR DISCECTOMY) History of hysterectomy History of tooth extraction Hx of colonoscopy with polypectomy (Resolved) Hx of eye surgery LASER PROCEDURE S/P cystoscopy with ureteral stent placement 05/13/19 MAC Family History Brother Family history of diabetes mellitus Social History Preferred Language: Slovenian Communication Ability: Effective Operations Trainer Required: No Beliefs That Will Affect Care: None marital status: Current Living Situation: Spouse current occupational status: retired Feels Safe at Home: Yes Smoking Status: Former smoker Tobacco Type: cigarettes ; Second Hand Exposure: Yes ( A CHILD) ; Hx Alcohol Use: No Hx Substance Use: No Review of Systems See HPI for pertinent positives & negatives. and A total of 10 systems reviewed and were otherwise negative Physical Exam Vital Signs Vital Signs - 24 hr 06/04/19 15:20 06/04/19 15:22 06/04/19 15:27 Temperature 36.4 C L Temperature Source Oral Pulse Rate 78 69 69 Pulse Rate [Finger] 78 Pulse Rate from SpO2 Sensor Respiratory Rate 23 17 19 Blood Pressure 86/26 L 102/31 L Blood Pressure [Right Arm] 86/26 L Blood Pressure Mean 46 57 Blood Pressure Mean [Right Arm] 46 Pulse Oximetry 98 Oxygen Delivery Method Room Air Room Air Room Air Sepsis Recent Fever Within 48 Hours No Sepsis New/Unexplained Change in Mental Status No Sepsis Action Taken by Nursing No Action Required 06/04/19 15:30 06/04/19 15:40 06/04/19 15:50 Temperature Temperature Source Pulse Rate 77 68 71 Pulse Rate [Finger] Pulse Rate from SpO2 Sensor Respiratory Rate 19 23 16 Blood Pressure Blood Pressure [Right Arm] Blood Pressure Mean Blood Pressure Mean [Right Arm] Pulse Oximetry Oxygen Delivery Method Room Air Room Air Room Air Sepsis Recent Fever Within 48 Hours Sepsis New/Unexplained Change in Mental Status Sepsis Action Taken by Nursing 06/04/19 16:00 06/04/19 16:01 06/04/19 16:10 Temperature Temperature Source Pulse Rate 64 65 70 Pulse Rate [Finger] Pulse Rate from SpO2 Sensor 71 Respiratory Rate 17 14 19 Blood Pressure 97/30 L Blood Pressure [Right Arm] Blood Pressure Mean 52 Blood Pressure Mean [Right Arm] Pulse Oximetry 96 Oxygen Delivery Method Room Air Room Air Room Air Sepsis Recent Fever Within 48 Hours Sepsis New/Unexplained Change in Mental Status Sepsis Action Taken by Nursing 06/04/19 16:15 06/04/19 16:20 06/04/19 16:30 Temperature 36.3 C L Temperature Source Rectal Pulse Rate 74 76 79 Pulse Rate [Finger] Pulse Rate from SpO2 Sensor 75 75 79 Respiratory Rate 16 17 15 Blood Pressure 101/56 L Blood Pressure [Right Arm] Blood Pressure Mean 82 Blood Pressure Mean [Right Arm] Pulse Oximetry 93 95 97 Oxygen Delivery Method Room Air Room Air Room Air Sepsis Recent Fever Within 48 Hours Sepsis New/Unexplained Change in Mental Status Sepsis Action Taken by Nursing 06/04/19 16:32 06/04/19 16:34 06/04/19 16:35 Temperature Temperature Source Pulse Rate 81 Pulse Rate [Finger] Pulse Rate from SpO2 Sensor 81 Respiratory Rate 31 H Blood Pressure 67/50 L 46/40 L 126/50 L Blood Pressure [Right Arm] Blood Pressure Mean 51 41 67 Blood Pressure Mean [Right Arm] Pulse Oximetry 97 Oxygen Delivery Method Room Air Room Air Room Air Sepsis Recent Fever Within 48 Hours Sepsis New/Unexplained Change in Mental Status Sepsis Action Taken by Nursing 06/04/19 17:45 06/04/19 17:59 Temperature Temperature Source Pulse Rate 70 Pulse Rate [Finger] 79 Pulse Rate from SpO2 Sensor 70 Respiratory Rate 16 24 Blood Pressure 130/57 L Blood Pressure [Right Arm] 130/57 L Blood Pressure Mean 81 Blood Pressure Mean [Right Arm] 81 Pulse Oximetry 92 91 Oxygen Delivery Method Room Air Room Air Sepsis Recent Fever Within 48 Hours Sepsis New/Unexplained Change in Mental Status Sepsis Action Taken by Nursing GENERAL: chronically-ill appearing, garbled speech, answers questions appropriately EYE EXAM: normal conjunctiva, PERRL and EOM's grossly intact OROPHARYNX: no exudate, no erythema, lips, buccal mucosa, and tongue normal and mucous membranes are dry NECK: supple, no nuchal rigidity, no adenopathy, non-tender LUNGS: Clear to auscultation. Normal chest wall mechanics HEART: no murmurs, S1 normal and S2 normal ABDOMEN: abdomen soft, non-tender, normo-active bowel sounds, no masses, no rebound or guarding. BACK: Back is symmetrical on inspection and there is no deformity, no midline tenderness, no CVA tenderness. SKIN: no rashes and no bruising UPPER EXTREMITIES: upper extremities are grossly normal. LOWER EXTREMITIES: No pitting edema. NEURO EXAM: Normal sensorium, cranial nerves II-XII intact, garbled speech, no weakness of arms, no weakness of legs. No drift. Finger to nose intact. Gross sensation intact. Course Course ED COURSE: Vital signs were reviewed and showed hypoxia. The patients medical record was reviewed The above diagnostic studies were performed and reviewed. ED treatments and interventions as stated above. 1507: The patient was evaluated in room B04B. A complete history and physical examination was performed. 1544: Upon reevaluation, the patient is resting.I discussed my findings with the patient and her and they understand and agree with the treatment plan. 1615: Upon reevaluation, the patient's pressure reymundo to 100. 1715: Based on the patients age, coexisting illnesses, exam and lab findings the decision to treat as an inpatient was made. I reviewed the patient's case with Daisy Ryan PA-C. Dr. Caden Yanez Hospitalist will evaluate the patient for further management. The patient remained stable while under my care. The patient will be evaluated for further management. Administered Medications Discontinued Medications Fluconazole (Diflucan) 150 mg PO NOW ONE Stop: 06/04/19 17:18 Last Admin: 06/04/19 17:57 Dose: 150 mg Documented by: [id number] Sodium Chloride (Nss 1000ml) 1,000 mls @ 999 mls/hr IV .Q1H1M ONE Stop: 06/04/19 16:17 Last Infusion: 06/04/19 16:43 Dose: 0 mls/hr Documented by: [id number] Admin: 06/04/19 15:25 Dose: 999 mls/hr Documented by: [id number] Sodium Chloride (Nss 1000ml) 1,000 mls @ 999 mls/hr IV .Q1H1M ONE Stop: 06/04/19 16:20 Last Infusion: 06/04/19 17:18 Dose: 0 mls/hr Documented by: [id number] Admin: 06/04/19 16:03 Dose: 999 mls/hr Documented by: [id number] Ceftriaxone Sodium (Rocephin) 1,000 mg in 50 mls @ 100 mls/hr IV NOW STA Stop: 06/04/19 17:34 Last Admin: 06/04/19 17:56 Dose: 100 mls/hr Documented by: [id number] Critical Care Time Critical Care Time: Yes Total Critical Care Time: 32 I have personally spent 32 minutes of critical care time in the direct management of this patient. This includes bedside care, interpretation of diagnostic studies, and testing, discussion with consultants, patient, and family members, and other required patient management activities. This 32 minutes is in excess of all separately billable procedures. Medical Decision Making Differential Diagnosis Differential diagnosis includes etiologies such as sepsis, UTI, pneumonia, meta bolic, electrolyte abnormalities, cardiac sources, intracerebral event, toxicologic, neurologic, as well as others were entertained. Medical Records Attestation: I reviewed the patient's medical records. Home Medications Current Medication List: was personally reviewed by me Laboratory Data Attestation: I reviewed the patient's lab results. Result diagrams: 06/04/19 16:08 06/04/19 16:08 Lab Results 06/04/19 06/04/19 06/04/19 Range/Units 16:08 16:08 16:08 WBC 6.17 (4.8-10.8) K/uL RBC 3.96 L (4.2-5.4) M/uL Hgb 9.0 L (12.0-16.0) g/dL Hct 31.2 L (37-47) % MCV 78.8 L (80-100) fL MCH 22.7 L (25-34) pg MCHC 28.8 L (32-36) g/dL RDW Std Deviation 53.5 H (36.4-46.3) fL RDW Coeff of Pia 18.6 H (11.5-14.5) % Plt Count 177 (130-400) K/uL MPV 9.2 (7.4-10.4) fL Immature Gran % (Auto) 0.6 % Neut % (Auto) 74.2 % Lymph % (Auto) 13.3 % [place]upe % (Auto) 11.5 % Eos % (Auto) 0.2 % Baso % (Auto) 0.2 % Immature Gran # (Auto) 0.04 H (0.00-0.02) K/uL Neut # (Auto) 4.58 (1.4-6.5) K/uL Lymph # (Auto) 0.82 L (1.2-3.4) K/uL [place] # (Auto) 0.71 H (0.11-0.59) K/uL Eos # (Auto) 0.01 (0-0.5) K/uL Baso # (Auto) 0.01 (0-0.2) K/uL PT 11.2 (9.0-12.0) Seconds INR 1.1 (0.9-1.1) APTT 25.8 (21.0-31.0) Seconds PTT Ratio 1.0 VBG pH 7.33 L (7.36-7.41) VBG pCO2 34 L (38-50) mmHg VBG pO2 79 mmHg VBG HCO3 18 mmol/L VBG O2 Saturation 94.0 % VBG Base Excess -7.3 mEq/L Barometric Pressure 736.4 mm/Hg Sodium (136-145) mmol/L Potassium (3.5-5.1) mmol/L Chloride (98-107) mmol/L Carbon Dioxide (21-32) mmol/L Anion Gap (3-11) BUN (7-18) mg/dl Creatinine (0.6-1.2) mg/dl Est Cr Clr Drug Dosing ml/min Est GFR ( Amer) Est GFR (Non-Af Amer) BUN/Creatinine Ratio (10-20) Glucose (70-99) mg/dl Lactate (0.4-2.0) mmol/L Calcium (8.5-10.1) mg/dl Total Bilirubin (0.2-1) mg/dl AST (15-37) U/L ALT (12-78) U/L Alkaline Phosphatase (45-117) U/L Total Protein (6.4-8.2) gm/dl Albumin (3.4-5.0) gm/dl Globulin (2.5-4.0) gm/dl Albumin/Globulin Ratio (0.9-2) Urine Color Urine Appearance (Clear) Urine pH (4.5-7.5) Ur Specific Bowie (1.000-1.030) Urine Protein (Negative) Urine Glucose (UA) (Negative) Urine Ketones (Negative) Urine Blood (Negative) Urine Nitrite (Negative) Urine Bilirubin (Negative) Urine Urobilinogen (Negative) Ur Leukocyte Esterase (Negative) Urine WBC (Auto) (0-5) /hpf Urine RBC (Auto) (0-4) /hpf U Hyaline Cast (Auto) (0-5) /lpf U Epithel Cells (Auto) (0-5) /lpf Urine Bacteria (Auto) (Negative) Ur Renal Epithelial Cell Granular Casts (0) /lpf Urine Yeast (None Prsent) 06/04/19 06/04/19 06/04/19 Range/Units 16:08 16:08 16:25 WBC (4.8-10.8) K/uL RBC (4.2-5.4) M/uL Hgb (12.0-16.0) g/dL Hct (37-47) % MCV (80-100) fL MCH (25-34) pg MCHC (32-36) g/dL RDW Std Deviation (36.4-46.3) fL RDW Coeff of Pia (11.5-14.5) % Plt Count (130-400) K/uL MPV (7.4-10.4) fL Immature Gran % (Auto) % Neut % (Auto) % Lymph % (Auto) % [place] % (Auto) % Eos % (Auto) % Baso % (Auto) % Immature Gran # (Auto) (0.00-0.02) K/uL Neut # (Auto) (1.4-6.5) K/uL Lymph # (Auto) (1.2-3.4) K/uL [place] # (Auto) (0.11-0.59) K/uL Eos # (Auto) (0-0.5) K/uL Baso # (Auto) (0-0.2) K/uL PT (9.0-12.0) Seconds INR (0.9-1.1) APTT (21.0-31.0) Seconds PTT Ratio VBG pH (7.36-7.41) VBG pCO2 (38-50) mmHg VBG pO2 mmHg VBG HCO3 mmol/L VBG O2 Saturation % VBG Base Excess mEq/L Barometric Pressure mm/Hg Sodium 138 (136-145) mmol/L Potassium 4.1 (3.5-5.1) mmol/L Chloride 109 H (98-107) mmol/L Carbon Dioxide 19 L (21-32) mmol/L Anion Gap 10.0 (3-11) BUN 17 (7-18) mg/dl Creatinine 1.70 H (0.6-1.2) mg/dl Est Cr Clr Drug Dosing 29.7 ml/min Est GFR ( Amer) 33.1 Est GFR (Non-Af Amer) 28.6 BUN/Creatinine Ratio 10.2 (10-20) Glucose 230 H (70-99) mg/dl Lactate 3.7 H* (0.4-2.0) mmol/L Calcium 8.8 (8.5-10.1) mg/dl Total Bilirubin 0.5 (0.2-1) mg/dl AST 33 (15-37) U/L ALT 15 (12-78) U/L Alkaline Phosphatase 56 (45-117) U/L Total Protein 6.5 (6.4-8.2) gm/dl Albumin 2.8 L (3.4-5.0) gm/dl Globulin 3.7 (2.5-4.0) gm/dl Albumin/Globulin Ratio 0.8 L (0.9-2) Urine Color Yellow Urine Appearance Cloudy A (Clear) Urine pH 5.0 (4.5-7.5) Ur Specific Bowie 1.016 (1.000-1.030) Urine Protein 3+ H (Negative) Urine Glucose (UA) Negative (Negative) Urine Ketones Trace H (Negative) Urine Blood 2+ H (Negative) Urine Nitrite Negative (Negative) Urine Bilirubin Negative (Negative) Urine Urobilinogen Negative (Negative) Ur Leukocyte Esterase 1+ H (Negative) Urine WBC (Auto) >30 H (0-5) /hpf Urine RBC (Auto) 0-4 (0-4) /hpf U Hyaline Cast (Auto) 1-5 (0-5) /lpf U Epithel Cells (Auto) >30 H (0-5) /lpf Urine Bacteria (Auto) Negative (Negative) Ur Renal Epithelial Cell Not Reportable Granular Casts 1-5 H (0) /lpf Urine Yeast Budding A (None Prsent) Imaging Data Radiologist's Impression: Radiology results as stated below per my review and the radiologist's interpretation: CT head/brain wo con CLINICAL HISTORY: Acute change in mental status COMPARISON STUDY: May 15, 2017 TECHNIQUE: Axial CT of the brain is performed from the vertex to the skull base. IV contrast was not administered for this examination. A dose lowering technique was utilized adhering to the principles of ALARA. CT DOSE: FINDINGS: No intra or extra-axial mass lesions are visualized. There is no CT evidence of acute cortical infarction. There is no evidence of midline shift. There is no acute hemorrhage. No calvarial fractures are visualized. There are patchy white matter hypodensities likely on a small vessel basis. There is basal ganglia and cerebellar calcification, similar to the preceding examination. There is no evidence of pathologic ventricular dilatation. There is no evidence of acute sinusitis IMPRESSION: No acute intracranial findings Electronically signed by: Babatunde Morin M.D. 06/04/2019 4:51 PM SINGLE VIEW CHEST CLINICAL HISTORY: Sepsis. FINDINGS: An AP, portable, upright chest radiograph is compared to study dated 05/12/2019. The examination is degraded by portable technique and patient rotation. The heart is enlarged noting atherosclerotic calcification of the thoracic aorta. The pulmonary vasculature is noncongested. Atelectasis is noted at the left lung base. No airspace consolidation or large pleural effusion is identified. No pneumothorax is seen. The skeletal structures are osteopenic. The bony thorax is grossly intact. IMPRESSION: Cardiomegaly with no acute cardiopulmonary abnormality. Electronically signed by: Jerry Heart M.D. 06/04/2019 3:[address] SCAN OF THE ABDOMEN AND PELVIS WITHOUT CONTRAST CLINICAL HISTORY: Generalized abdominal pain COMPARISON STUDY: 05/12/2019 TECHNIQUE: CT scan of the abdomen and pelvis was performed from the lung bases to the proximal femurs. Images are reviewed in the axial, sagittal, and coronal planes. IV contrast was not administered for this examination. A dose lowering technique was utilized adhering to the principles of ALARA. CT DOSE: 2338.38 mGy.cm FINDINGS: Lower chest: There is basilar interstitial thickening and subpleural cystic change. There is a small hiatal hernia Liver: The unenhanced liver is normal in size, contour, and attenuation. There is no intrahepatic biliary ductal dilatation. Gallbladder: Unremarkable. Spleen: Normal in size and attenuation. Pancreas: Unremarkable. Adrenal glands: Unremarkable. Kidneys: There are tiny nonobstructing right renal calculi, the largest of which measures 2.5 mm. There are punctate left renal calculi. There is left-sided hydronephrosis and hydroureter. The previously identified distal left ureteral calculus is no longer visualized. There has been resolution of the previously identified left-sided perinephric stranding. Bowel: There are no transition zones to indicate bowel obstruction. There is extensive colonic diverticulosis. There are no acute peridiverticular inflammatory changes. There are no findings to indicate acute diverticulitis. Peritoneum: There is no intraperitoneal free air or abdominal ascites. Vasculature: There is mild aortic ectasia measuring up to 25 mm in diameter Adenopathy: None. Pelvic viscera: The uterus is surgically absent. There is an indwelling Hernandez catheter. Air within the bladder is likely iatrogenic. Skeletal structures: No destructive osseous lesions are seen. IMPRESSION: 1. No evidence of bowel obstruction. No evidence of free air 2. Extensive pandiverticulosis. No evidence of acute diverticulitis 3. Bilateral nephrolithiasis 4. Mild left-sided hydronephrosis and left hydroureter with resolution of the previously identified perinephric infiltration. The previously identified distal left ureteral calculus is no longer visualized. The left-sided hydronephrosis may represent a residua from prior obstruction, or could be secondary to ureteral edema status post instrumentation. Clinical follow-up will be necessary. Electronically signed by: Babatunde Morin M.D. 06/04/2019 5:01 PM ECG Data Attestation: I personally reviewed and interpreted this ECG as follows: Indication: + weakness Rate (beats per minute): 73 Rhythm: + sinus rhythm ECG Rodeo: + Normal ECG ST segments: + T-wave inversions (High Lateral leads) ECG Findings: + Other (low voltage; normal QTC); no PVCs Blood Pressure Blood Pressure Findings: Low blood pressure Blood Pressure Disposition: further management by hospitalist LEXIE Aggarwal Patient is a 78-year-old female who presents the ER for recurrent falls and weakness. She is brought in by EMS. She is found to be hypotensive with systolic blood pressures in the 80s. Sepsis alert was called. IVs were established blood work was obtained. Upon review of her chart she was recently admitted and discharged within the past month and had stents placed with basket retrieval of a left ureteral stone. CBC shows no significant leukocytosis but chronic anemia 9. INR was unremarkable. VBG with a pH of 7.33 and a slightly low CO2 at 34. BMP with a slightly low CO2 at 19. Creatinine was elevated at 1.7. Lactate was elevated at 3.7. LFTs bilirubin was unremarkable. UA had epithelial cells, white cells and leukocytes. There was also yeast present. She still had some mild left-sided hydro. Patient was given IV antibiotics. Given IV fluids. Hernandez was placed. Patient was monitored closely. Updated at bedside. She was oriented to person place or time. No other complaints other than feeling very weak. Family was updated as well patient was discussed the hospitalist for admission. Impression & Plan Hypotension, Acidosis, lactic, Weakness, Hydronephrosis, Acute UTI (urinary tract infection) Discharge Plan Visit Data Chief Complaint: Illness Stated Complaint: WEAKNESS ED Provider: Ajay Live Discharge Problem: Hypotension, Acidosis, lactic, Weakness, Hydronephrosis, Acute UTI (urinary tract infection) Patient Disposition: Being Evaluated by Hospitalist Forms Stand Alone Forms: [facility] Prescriptions Prescriptions: No Action carvedilol 25 mg Tablet 25 mg PO BID Qty: 0 RF: 0 metformin 1,000 mg Tablet 1,000 mg PO BIDM Qty: 0 RF: 0 omega-3 fatty acids 1,000 mg Capsule 2,000 mg PO DAILY Qty: 0 RF: 0 metformin 1,000 mg Tablet 500 mg PO QDL Qty: 0 RF: 0 omeprazole 20 mg Tablet,Delayed Release (Dr/Ec) 20 mg PO QAM Qty: 0 RF: 0 coenzyme Q10 100 mg Capsule 100 mg PO DAILY Qty: 0 RF: 0 lorazepam 0.5 mg Tablet 0.5 mg PO BID PRN (Reason: Anxiety) Qty: 0 RF: 0 gabapentin 800 mg Tablet 800 mg PO TID Qty: 0 RF: 0 diphenhydramine HCl [Benadryl] 25 mg Capsule 25 mg PO DAILY PRN (Reason: Allergy Symptoms) Qty: 0 RF: 0 lisinopril 40 mg Tablet 40 mg PO QAM Qty: 0 RF: 0 atorvastatin 40 mg Tablet 40 mg PO QAM Qty: 0 RF: 0 dicyclomine 10 mg Capsule 10 mg PO QID PRN (Reason: Stomach Upset) Qty: 0 RF: 0 valerian root 100 mg Capsule 100 mg PO DAILY RF: 0 metronidazole [Metrogel] 1 % Gel 1 applic TOPICAL BID PRN (Reason: Rash) RF: 0 phenazopyridine [Pyridium] 200 mg tablet 200 mg PO Q8H PRN (Reason: pain) Qty: 9 RF: 0 cholecalciferol (vitamin D3) 50,000 unit capsule 50,000 unit PO MONTHLY RF: 0 Systane Ultra 0.4-0.3 % Drops 1 drp OPHTHALMIC (EYE) BID PRN (Reason: Dry Eye(S)) RF: 0 Slow-Mag 71.5 mg Tablet,Delayed Release (Dr/Ec) 71.5 mg PO BIDM RF: 0 tamsulosin 0.4 mg Capsule 0.4 mg PO HS 30 Days Qty: 30 RF: 0 Referrals Referrals: [facility] MD [Primary Care Provider] - Discharge Problem: Hypotension Qualifiers: Hypotension type: unspecified hypotension type Qualified Code(s): I95.9 - Hypotension, unspecified Hydronephrosis Qualifiers: Hydronephrosis type: unspecified Qualified Code(s): N13.30 - Unspecified hydronephrosis The scribe's documentation has been prepared under my direction and personally reviewed by me in its entirety. I confirm that the note above accurately reflects all work, treatment, procedures, and medical decision making performed by me.
--- NOTE | 2019-06-04 18:20 | History & Physical Report ---
Date of Service June 04, 2019 Assessment & Plan (1) Sepsis: Pt is 78 y/o F with PMH HTN, dyslipidemia, DM II, GERD, CKD III, diastolic dysfunction, LVH presented to ER with c/o weakness x 1 day.Recent cystoscopy and left ureteral stent 05/13/[address] Bone. On 05/26/2018 had cystoscopy, ureteroscopy, stent, basket retrieval ureteral stone. 05/26/2019 patient was given Keflex for 5-day course. Pt instructed self pull stent on 05/28/19 which reports did without difficulty In ER Rectal Temp: 36.3C, P: 78, R: 23, BP: 86/26, 98% on RA WBC: 6, H/H: 9/31, BUN: 17, Cr: 1.7, Lactate: 3.7, glucose: 230, UA:2+blood, 1+leuk esterase, >30 WBC, >30 epithelial, budding yeast. Urine in Hernandez bag cloudy CT HEAD: No acute intracranial findings CT ABD/PELVIS:1. No evidence of bowel obstruction. No evidence of free air. 2. Extensive pandiverticulosis. No evidence of acute diverticulitis. 3. Bilateral nephrolithiasis. 4. Mild left-sided hydronephrosis and left hydroureter with resolution of the previously identified perinephric infiltration. The previously identified distal left ureteral calculus is no longer visualized. The left-sided hydronephrosis may represent a residua from prior obstruction, or could be secondary to ureteral edema status post instrumentation. Clinical follow-up will be necessary. CXR: Cardiomegaly with no acute cardiopulmonary abnormality. Possible urine source -In ER pt given 2L NSS with improvement of BP to 130/57 -In ER pt given Rocephin, fluconazole -Blood cultures pending, Urine culture pending -Repeat lactate -IVF -Zosyn, Vancomycin -CBC, BMP in am -May consider urology consult -ID consult (2) Acute kidney injury superimposed on CKD: H/O CKD III. Baseline Cr ~0.9-1.0 Today BUN: 17, Cr: 1.7, GFR: 28 -IVF -Monitor renal functions -Hold lisinopril, metformin -Hold gabapentin for now, may consider resuming at renal dosing when appropriate -Avoid other nephrotoxic agents when possible -If no improvement consider nephrology consult (3) Weakness: Pt with increased weakness, lethargy over past 24 hours. Reported 3 falls over past 24 hours with no known injury Probable secondary to underlying infection -Consider PT/OT when appropriate (4) Hypertension: Presented hypotensive which responded to IVF -Hold lisinopril, carvedilol at this time (5) Diabetes mellitus, type II: A1c: 7.6 on 05/19/19 -Hold metformin -Novolog sliding scale per protocol -Monitor BSGs (6) Anemia: Chronic anemia. Baseline Hgb~ 9-10 Hgb: 9. No signs of bleeding -Monitor H&H (7) Diastolic dysfunction: 2015 echo with EF: 60%, grade 1 diastolic dysfunction, LVF At this time appears dehydrated -Monitor I&O's (8) GERD (gastroesophageal reflux disease): -Continue PPI (9) Dyslipidemia: -Hold statin for now DVT Prophylaxis -Heparin SQ Full Code as per discussion with pt's and recent discussion with pt on recent admission earlier this month Follows with Dr House for routine care Pt was seen and care coordinated with Dr Pinto. See addendum History of Present Illness Chief Complaint: Weakness Primary Care Provider: Case House MD Pt is 78 y/o F with PMH HTN, dyslipidemia, DM II, GERD, CKD III, diastolic dysfunction, LVH presented to ER with c/o weakness x 1 day. History obtained from patient's and chart review secondary to patient's lethargy and sleepiness. Patient with history cystoscopy and left ureteral stent 05/13/[address] Bone. On 05/26/2018 had cystoscopy, ureteroscopy, stent, basket retrieval ureteral stone. 05/26/2019 patient was given Keflex for 5-day course and Pyridium which patient's reports she finished. reports on 05/28/19 pt was instructed to self pull the stent and that she was able to do so without difficulty. Patient's reports that patient has had continued di scomfort to left lower quadrant however has not seemed to express that discomfort was increased. Patient's reports pt with increased weakness, lethargy and increased sleeping. Reports she had a fall in the bathroom yesterday, that he heard her fall and reports he immediately went into the bathroom and found her lying on floor and patient was awake. At that time patient denied any injury. He reports patient rolled out of bed last night and he was able to get to bedside quickly and patient had no LOC. Reports this morning patient slid out of chair and and he was able to assist her to ground. Patient normally uses walker to ambulate however has not been able to ambulate over the past day. Reports patient vomited once last night. States patient ate half honey bun this morning. Outpatient records reviewed showing on 05/31/2019 patient was given Z-Itz for sinusitis with symptoms of sinus pressure and cough. Patient's is unaware of any fevers, chills, rigors, diarrhea or hematuria or noted SOB. Allergies Allergy/AdvReac Type Severity Reaction Status Date / Time oxycodone Allergy Intermediate SEDATED Verified 06/04/19 15:54 Home Medications Home Medications Medication Instructions Recorded Confirmed Type carvedilol 25 mg PO BID #0 10/15/13 06/04/19 History metformin 1,000 mg PO BIDM #0 10/15/13 06/04/19 History metformin 500 mg PO QDL #0 10/15/13 06/04/19 History omega-3 fatty acids 2,000 mg PO DAILY #0 10/15/13 06/04/19 History omeprazole 20 mg PO QAM #0 10/15/13 06/04/19 History coenzyme Q10 100 mg PO DAILY #0 01/04/16 06/04/19 History diphenhydramine HCl [Benadryl] 25 mg PO DAILY PRN #0 02/21/16 06/04/19 History gabapentin 800 mg PO TID #0 tab 02/21/16 06/04/19 History lisinopril 40 mg PO QAM #0 02/21/16 06/04/19 History lorazepam 0.5 mg PO BID PRN #0 02/21/16 06/04/19 History atorvastatin 40 mg PO QAM #0 04/09/17 06/04/19 History dicyclomine 10 mg PO QID PRN #0 04/09/17 06/04/19 History metronidazole [Metrogel] 1 applic TOPICAL BID PRN 12/09/18 06/04/19 History valerian root 100 mg PO DAILY 12/09/18 06/04/19 History Slow-Mag 71.5 mg PO BIDM 05/12/19 06/04/19 History Systane Ultra 1 drp OPHTHALMIC (EYE) BID PRN 05/12/19 06/04/19 History cholecalciferol (vitamin D3) 50,000 unit PO MONTHLY 05/12/19 06/04/19 History tamsulosin 0.4 mg PO HS 30 Days #30 cap 05/15/19 06/04/19 Rx phenazopyridine [Pyridium] 200 mg PO Q8H PRN #9 tab 05/26/19 06/04/19 Rx Past Med/Surg History Medical History (Updated 06/04/19 @ 18:26 by Daisy Ryan PA-C) Anxiety CKD (chronic kidney disease), stage III (Chronic) Diabetes mellitus, type 2 Diabetes mellitus, type II Dry eye syndrome Dyslipidemia (Chronic) GERD (gastroesophageal reflux disease) (Chronic) Hypertension (Chronic) Kidney stones (Chronic) Osteoarthritis Peripheral neuropathy Surgical History History of appendectomy History of carpal tunnel release left History of cataract surgery RT/LEFT History of discectomy LUMBAR (TOTAL 2 LUMBAR DISCECTOMY) History of hysterectomy History of tooth extraction Hx of colonoscopy with polypectomy (Resolved) Hx of eye surgery LASER PROCEDURE S/P cystoscopy with ureteral stent placement 05/13/19 MAC Family History Brother Family history of diabetes mellitus Social History Preferred Language: Sinhala Communication Ability: Effective 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[employer] Developer Required: No Beliefs That Will Affect Care: None marital status: Current Living Situation: Spouse current occupational status: retired Feels Safe at Home: Yes Smoking Status: Former smoker Tobacco Type: cigarettes ; Second Hand Exposure: Yes ( A CHILD) ; Hx Alcohol Use: No Hx Substance Use: No Review of Systems Review of Systems: Unobtainable due to cognitive status Physical Exam Physical Exam: General: lethargic female, sleeping in no apparent distress, obese Head: normocephalic, atraumatic Eyes: PERRL, EOM's intact, conjunctiva non-injected, anicteric ENT: normal inspection external ears, nose, mucous membranes dry Neck: supple, trachea midline Lungs: no respiratory distress, lungs difficult to fully auscultate secondary to pts snoring and body habitus, however appear clear CV: RRR, no murmur, no pretibial edema Abd: normal BS, soft, +apparent tenderness to palpation LLQ, no rebound Ext: no cyanosis, no calf tenderness Neuro: Lethargic, sleeping, arouses to palpation of LLQ and reports discomfort then falls back asleep Skin: warm, dry Results & Data Vital Signs (Past 12 Hours) Vital Signs Temp Pulse Pulse Resp BP BP Pulse Ox 06/04/19 17:59 79 24 130/57 L 91 06/04/19 17:45 70 16 130/57 L 92 06/04/19 16:35 126/50 L 06/04/19 16:34 46/40 L 06/04/19 16:32 81 31 H 67/50 L 97 06/04/19 16:30 79 15 97 06/04/19 16:20 76 17 95 06/04/19 16:15 36.3 C L 74 16 101/56 L 93 06/04/19 16:10 70 19 96 06/04/19 16:01 65 14 97/30 L 06/04/19 16:00 64 17 06/04/19 15:50 71 16 06/04/19 15:40 68 23 06/04/19 15:30 77 19 06/04/19 15:27 69 19 06/04/19 15:22 69 17 102/31 L 06/04/19 15:20 36.4 C L 78 78 23 86/26 L 86/26 L 98 Laboratory Results Short CBC 06/04/19 Range/Units 16:08 WBC 6.17 (4.8-10.8) K/uL Hgb 9.0 L (12.0-16.0) g/dL Hct 31.2 L (37-47) % Plt Count 177 (130-400) K/uL BMP 06/04/19 16:08 Sodium 138 Potassium 4.1 Chloride 109 H Carbon Dioxide 19 L BUN 17 Creatinine 1.70 H Glucose 230 H Calcium 8.8 Liver Function 06/04/19 Range/Units 16:08 Total Bilirubin 0.5 (0.2-1) mg/dl AST 33 (15-37) U/L ALT 15 (12-78) U/L Alkaline Phosphatase 56 (45-117) U/L Albumin 2.8 L (3.4-5.0) gm/dl Urine 06/04/19 Range/Units 16:25 Urine Color Yellow Urine Appearance Cloudy A (Clear) Urine pH 5.0 (4.5-7.5) Ur Specific [place] 1.016 (1.000-1.030) Urine Protein 3+ H (Negative) Urine Glucose (UA) Negative (Negative) Diagnostic Findings CT HEAD: IMPRESSION: No acute intracranial findings CT ABD/PELVIS: IMPRESSION: 1. No evidence of bowel obstruction. No evidence of free air 2. Extensive pandiverticulosis. No evidence of acute diverticulitis 3. Bilateral nephrolithiasis 4. Mild left-sided hydronephrosis and left hydroureter with resolution of the previously identified perinephric infiltration. The previously identified distal left ureteral calculus is no longer visualized. The left-sided hydronephrosis may represent a residua from prior obstruction, or could be secondary to ureteral edema status post instrumentation. Clinical follow-up will be necessary. CXR: IMPRESSION: Cardiomegaly with no acute cardiopulmonary abnormality. Code Status & VTE Plan VTE Prophylaxis Plan VTE Prophylaxis will be ordered: Yes Supervising Physician Co-Signing Physician Notes Attending addendum: The patient was seen and examined in emergency room in presence of the and the daughter She is pleasantly confused and was brought in with extreme weakness and tiredness and recurrent falls Likely has complicated UTI On examination Very weak and lethargic and dry Hemodynamically stable Chest-clear to auscultate bilaterally Heart-S1-S2, regular Abdomen soft-. Minimally tender right renal angle. 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 Pleasantly confused. Very weak and lethargic Admission labs and imaging studies reviewed Likely has complicated UTI Agree with assessment and plan as outlined above by GVAIOTA Burton Dr
[2019-06-04 19:25] LABS: Influenza A virus by PCR Neg for Influ A (Neg); Influenza B virus by PCR Neg for Influ B (Neg)
[2019-06-04] MEDS ORDERED: GLUCOSE 40% GEL 15 GM TUBE PO PRN (19:38)
[2019-06-04] MEDS ORDERED: GLUCAGON FOR INJ 1 MG VIAL SQ PRN (19:38)
[2019-06-04] MEDS ORDERED: GLUCOSE 10 TABS/TUBE PO PRN (19:38)
[2019-06-04] MEDS ORDERED: CARBOHYDRATES FOR HYPOGLYCEMIA PO PRN (19:38)
[2019-06-04] MEDS ORDERED: DEXTROSE 50% 50 ML SYRINGE IV PRN (19:38)
[2019-06-04] MEDS ORDERED: DAPTOMYCIN CONSULT ACTIVE PRN (19:49)
[2019-06-04] MEDS ORDERED: PIPERACILL/TAZOBAC CONSULT ACTIVE PRN (19:49)
[2019-06-04] MEDS ORDERED: PIPERACILLIN/TAZOBACTAM 4.5 GM in DEXTROSE 5% 100 ML IV ONE (20:00)
[2019-06-04] MEDS: SODIUM CHLORIDE 0.9% 1000ML 1,000 ML IV SCH (20:04)
[2019-06-04] MEDS: DAPTOmycin 425 MG in SYRINGE 0 ML IV SCH (20:05)
[2019-06-04] MEDS: HEPARIN SOD 5,000 UNIT/0.5 ML VIAL SQ SCH (20:36)
[2019-06-04] MEDS: INSULIN ASPART 100 UNITS/ML 3 ML PEN SC SCH (20:37)
[2019-06-04] MEDS: TAMSULOSIN HCL 0.4 MG CAP PO SCH (21:17)
[2019-06-04] MEDS: guaiFENesin 600 MG TABCR PO SCH (21:32)
[2019-06-05] MEDS: PIPERACILLIN/TAZOBACTAM 4.5 GM in DEXTROSE 5% 100 ML IV SCH ×3 (01:48→18:18)
[2019-06-05] MEDS: SODIUM CHLORIDE 0.9% 1000ML 1,000 ML IV SCH ×2 (05:36→15:58)
[2019-06-05 06:54] LABS: Hematocrit (blood only) 29.3 % (37-47); Hemoglobin 8.6 g/dL (12.0-16.0); Mean Corpuscular Hemoglobin 23.1 pg (25-34); Mean Corpuscular Hgb Conc 29.4 g/dL (32-36); Mean Corpuscular Volume 78.6 fL (80-100); Mean Platelet Volume 9.1 fL (7.4-10.4); Platelet Count 169 K/uL (130-400); RDW Coefficient of Variation 18.8 % (11.5-14.5); RDW Standard Deviation 54.6 fL (36.4-46.3); Red Blood Count 3.73 M/uL (4.2-5.4); White Blood Count 6.48 K/uL (4.8-10.8)
[2019-06-05 07:29] LABS: BUN Creatinine Ratio 13.8 (10-20); Calcium 8.4 mg/dl (8.5-10.1); Creatinine Clr Calc Pharmacy 40.5 ml/min; Est GFR (African American) 48.1; Est GFR (Non-African American) 41.5; Magnesium 1.4 mg/dl (1.8-2.4); Potassium 4.1 mmol/L (3.5-5.1)
[2019-06-05] MEDS: guaiFENesin 600 MG TABCR PO SCH ×2 (08:58→20:45)
[2019-06-05] MEDS: INSULIN ASPART 100 UNITS/ML 3 ML PEN SC SCH ×4 (08:59→21:05)
[2019-06-05] MEDS: HEPARIN SOD 5,000 UNIT/0.5 ML VIAL SQ SCH ×2 (08:59→20:45)
[2019-06-05] MEDS: PANTOprazole 40 MG TAB PO SCH (08:59)
[2019-06-05] MEDS ORDERED: PHENAZOPYRIDINE HCL 200 MG TAB PO PRN (09:37)
[2019-06-05] MEDS: MAGNESIUM SULFATE / D5W 1 GM/100 ML BAG IV SCH ×2 (10:58→12:20)
[2019-06-05] MEDS: carvediloL 25 MG TAB PO SCH (12:21)
[2019-06-05] MEDS: ACETAMINOPHEN 325 MG TAB PO PRN (13:12)
--- NOTE | 2019-06-05 16:11 | Hospitalist Progress Note ---
Date of Service June 05, 2019 Assessment & Plan (1) Sepsis: Pt is 78 y/o F with PMH HTN, dyslipidemia, DM II, GERD, CKD III, diastolic dysfunction, LVH presented to ER with c/o weakness x 1 day.Recent cystoscopy and left ureteral stent 05/13/[address] Bone. On 05/26/2018 had cystoscopy, ureteroscopy, stent, basket retrieval ureteral stone. 05/26/2019 patient was given Keflex for 5-day course. Pt instructed self pull stent on 05/28/19 which reports did without difficulty CT HEAD: No acute intracranial findings CT ABD/PELVIS:1. No evidence of bowel obstruction. No evidence of free air. 2. Extensive pandiverticulosis. No evidence of acute diverticulitis. 3. Bilateral nephrolithiasis. 4. Mild left-sided hydronephrosis and left hydroureter with resolution of the previously identified perinephric infiltration. The previously identified distal left ureteral calculus is no longer visualized. The left-sided hydronephrosis may represent a residua from prior obstruction, or could be secondary to ureteral edema status post instrumentation. Clinical follow-up will be necessary. CXR: Cardiomegaly with no acute cardiopulmonary abnormality. Likely secondary to UTI Urine culture is not growing any organism likely due to receiving of antibiotic We will continue intravenous antibiotic for 3 days She is clinically a lot better and will get PT and OT evaluation (2) Acute kidney injury superimposed on CKD: H/O CKD III. Baseline Cr ~0.9-1.0 Today BUN: 17, Cr: 1.7, GFR: 28 -IVF -Monitor renal functions -Hold lisinopril, metformin -Hold gabapentin for now, may consider resuming at renal dosing when appropriate -Avoid other nephrotoxic agents when possible -If no improvement consider nephrology consult -Her creatinine is improved to 1.25 as of 06/05 (3) Weakness: Pt with increased weakness, lethargy over past 24 hours. Reported 3 falls over past 24 hours with no known injury Probable secondary to underlying infection -Consider PT/OT when appropriate (4) Hypertension: Presented hypotensive which responded to IVF -Hold lisinopril, carvedilol at this time -Carvedilol has been started and will start lisinopril from tomorrow if kidney function is much better (5) Diabetes mellitus, type II: A1c: 7.6 on 05/19/19 -Hold metformin -Novolog sliding scale per protocol -Monitor BSGs (6) Anemia: Chronic anemia. Baseline Hgb~ 9-10 Hgb: 9. No signs of bleeding -Monitor H&H (7) Diastolic dysfunction: 2016 echo with EF: 60%, grade 1 diastolic dysfunction, LVF At this time appears dehydrated -Monitor I&O's (8) GERD (gastroesophageal reflux disease): -Continue PPI (9) Dyslipidemia: -Hold statin for now DVT Prophylaxis -Heparin SQ Full Code as per discussion with pt's and recent discussion with pt on recent admission earlier this month Follows with Dr House for routine care Subjective 06/04 The patient was seen and examined in emergency room in presence of the and the daughter She is pleasantly confused and was brought in with extreme weakness and tiredness and recurrent falls Likely has complicated UTI 06/05 The patient was seen and examined in telemetry unit She is out of bed on a chair and has been feeling a lot better Her confusion is improved She denies any acute symptoms except weakness Review of Systems Review of Systems: All systems reviewed and are unremarkable except as noted below Physical Exam Physical Exam: Sitting on a chair without any distress Constitutional: well developed, well nourished, + ill appearing and + obese; no acute distress Eyes: PERRL, conjunctivae normal, anicteric sclerae ENMT: external ear and nose normal, oropharynx normal Neck: trachea midline, no thyromegaly Respiratory: normal respiratory effort; no respiratory distress Ausc ultation: lungs clear to auscultation bilaterally and + diminished lung sounds Cardiovascular: Rate/Rhythm: regular rate and regular rhythm Heart Sounds: no murmur Extremities: + edema (Trace bilaterally) Gastrointestinal (Abdomen): Inspection/Auscultation: abdomen normal to inspection and normal bowel sounds Percussion/Palpation: abdomen soft; abdomen nontender Musculoskeletal: No acute arthritis in any joints Lymphatic: no cervical or axillary lymphadenopathy Results & Data Vital Signs (Past 12 Hours) Vital Signs Temp Pulse Resp BP Pulse Ox 06/05/19 11:39 37.8 C H 89 18 142/73 H 97 06/05/19 07:19 36.8 C 89 16 139/75 94 Laboratory Results Short CBC 06/04/19 06/05/19 Range/Units 16:08 06:26 WBC 6.17 6.48 (4.8-10.8) K/uL Hgb 9.0 L 8.6 L (12.0-16.0) g/dL Hct 31.2 L 29.3 L (37-47) % Plt Count 177 169 (130-400) K/uL BMP 06/04/19 06/05/19 16:08 06:26 Sodium 138 139 Potassium 4.1 4.1 Chloride 109 H 110 H Carbon Dioxide 19 L 21 BUN 17 17 Creatinine 1.70 H 1.25 H D Glucose 230 H 125 H Calcium 8.8 8.4 L Liver Function 06/04/19 Range/Units 16:08 Total Bilirubin 0.5 (0.2-1) mg/dl AST 33 (15-37) U/L ALT 15 (12-78) U/L Alkaline Phosphatase 56 (45-117) U/L Albumin 2.8 L (3.4-5.0) gm/dl Urine 06/04/19 Range/Units 16:25 Urine Color Yellow Urine Appearance Cloudy A (Clear) Urine pH 5.0 (4.5-7.5) Ur Specific [place] 1.016 (1.000-1.030) Urine Protein 3+ H (Negative) Urine Glucose (UA) Negative (Negative) Medications Administered Current Inpatient Medications Acetaminophen (Tylenol) 650 mg PO Q4H PRN PRN Reason: Pain or Fever Stop: 07/04/19 19:37 Last Admin: 06/05/19 13:12 Dose: 650 mg Documented by: Atorvastatin Calcium (Lipitor) 40 mg PO QAM [facility] Stop: 07/06/19 08:59 Carvedilol (Coreg) 25 mg PO BID@0900,1200 [facility] Stop: 07/05/19 11:59 Last Admin: 06/05/19 12:21 Dose: 25 mg Documented by: Dextrose (Dextrose 50%) 25 - 50 ml IV UD PRN; Protocol PRN Reason: Hypoglycemia Protocol Stop: 07/04/19 19:37 Glucagon (Glucagen) 1 mg SQ UD PRN; Protocol PRN Reason: Hypoglycemia Protocol Stop: 07/04/19 19:37 Glucose (Dex4 Glucose) 4 - 8 tabs PO UD PRN; Protocol PRN Reason: Hypoglycemia Protocol Stop: 07/04/19 19:37 Glucose (Glucose 40%) 15 - 30 gm PO UD PRN; Protocol PRN Reason: Hypoglycemia Protocol Stop: 07/04/19 19:37 Guaifenesin (Mucinex) 600 mg PO Q12 [facility] Stop: 07/04/19 21:59 Last Admin: 06/05/19 08:58 Dose: 600 mg Documented by: Heparin Sodium (Porcine) (Heparin Sodium (Porcine)) 5,000 units SQ Q12 [facility] Stop: 07/04/19 20:59 Last Admin: 06/05/19 08:59 Dose: 5,000 units Documented by: Sodium Chloride (Nss 1000ml) 1,000 mls @ 50 mls/hr IV .Q20H [facility] Stop: 07/04/19 19:37 Last Admin: 06/05/19 15:58 Dose: 50 mls/hr Documented by: Daptomycin 425 mg/ Syringe 8.5 mls @ 4.25 mls/min IV Q24H [facility] Stop: 06/06/19 19:59 Last Admin: 06/04/19 20:05 Dose: 4.25 mls/min Documented by: Piperacillin Sod/Tazobactam (Sod 4.5 gm/ Dextrose) 120 mls @ 30 mls/hr IV Q8H [facility]; Protocol Stop: 06/07/19 01:59 Last Infusion: 06/05/19 13:26 Dose: Infused Documented by: Insulin Aspart (Novolog Flexpen) 0 units SC ACHS [facility] Stop: 07/04/19 20:59 Last Admin: 06/05/19 12:21 Dose: 9 units Documented by: Lisinopril (Zestril) 40 mg PO QAM [facility] Stop: 07/06/19 08:59 Miscellaneous (Order Awaiting Action) 1 ea N/A QS [facility] Stop: 07/05/19 00:00 Last Admin: 06/05/19 07:22 Dose: Not Given Documented by: Miscellaneous (Carbohydrates For Hypoglycemia) 15 - 30 gm PO UD PRN PRN Reason: Hypoglycemia Protocol Stop: 07/04/19 19:37 Miscellaneous (Order Awaiting Action) 1 ea N/A QS [facility] Stop: 07/05/19 15:59 Miscellaneous Information (Consult) 1 ea N/A UD PRN PRN Reason: Consult Stop: 07/04/19 19:48 Miscellaneous Information (Consult) 1 ea N/A UD PRN PRN Reason: Consult Stop: 07/04/19 19:48 Pantoprazole Sodium (Protonix) 40 mg PO QAM [facility] Stop: 07/05/19 08:59 Last Admin: 06/05/19 08:59 Dose: 40 mg Documented by: Phenazopyridine HCl (Pyridium) 200 mg PO Q8H PRN PRN Reason: pain Stop: 07/05/19 09:36 Tamsulosin HCl (Flomax) 0.4 mg PO HS URI Stop: 07/04/19 20:59 Last Admin: 06/04/19 21:17 Dose: Not Given Documented by:
[2019-06-05] MEDS: TAMSULOSIN HCL 0.4 MG CAP PO SCH (20:44)
[2019-06-05] MEDS: DAPTOmycin 425 MG in SYRINGE 0 ML IV SCH (20:57)
[2019-06-05] MEDS ORDERED: MoRPHine SULFATE 4 MG/ML 1 ML CARP\\VIAL IV STA (23:13)
[2019-06-05] MEDS: METOPROLOL TARTRATE 1 MG/ML VIAL IV PRN (23:26)
[2019-06-05] MEDS: GABAPENTIN 400 MG CAP PO SCH (23:37)
[2019-06-06] MEDS: Heparin IV Standard *NO* Bolus IV SCH ×2 (00:42→00:48)
[2019-06-06] MEDS: NITROGLYCERIN 2% OINTMENT 30GM TUBE EXT SCH ×5 (00:55→23:25)
[2019-06-06] MEDS: METOPROLOL TARTRATE 1 MG/ML VIAL IV PRN ×2 (00:56→23:31)
[2019-06-06] MEDS: HEPARIN SODIUM/DEXTROSE 25,000 UNITS/500 ML BAG IV SCH ×2 (01:12→20:46)
[2019-06-06 01:16] LABS: Partial Thromboplastin Ratio 1.1; Partial Thromboplastin Time 28.5 Seconds (21.0-31.0)
[2019-06-06] MEDS ORDERED: MoRPHine SULFATE 2 MG/ML CARP IV STA (01:39)
[2019-06-06] MEDS: PIPERACILLIN/TAZOBACTAM 4.5 GM in DEXTROSE 5% 100 ML IV SCH ×3 (01:50→17:28)
[2019-06-06 01:59] LABS: Basophils # (auto) 0.02 K/uL (0-0.2); Basophils % (auto) 0.4 %; Eosinophils # (auto) 0.15 K/uL (0-0.5); Eosinophils % (auto) 2.8 %; Hematocrit (blood only) 30.1 % (37-47); Immature Granulocytes # (auto) 0.02 K/uL (0.00-0.02); Immature Granulocytes % (auto) 0.4 %; Lymphocytes # (auto) 1.11 K/uL (1.2-3.4); Lymphocytes % (auto) 20.7 %; Mean Corpuscular Hemoglobin 23.2 pg (25-34); Mean Corpuscular Volume 77.6 fL (80-100); Mean Platelet Volume 9.7 fL (7.4-10.4); Monocytes # (auto) 0.78 K/uL (0.11-0.59); Monocytes % (auto) 14.6 %; Neutrophils # (auto) 3.27 K/uL (1.4-6.5); Neutrophils % (auto) 61.1 %; Platelet Count 187 K/uL (130-400); RDW Coefficient of Variation 18.7 % (11.5-14.5); RDW Standard Deviation 53.4 fL (36.4-46.3); Red Blood Count 3.88 M/uL (4.2-5.4); White Blood Count 5.35 K/uL (4.8-10.8)
[2019-06-06 02:00] LABS: Mean Corpuscular Hgb Conc 29.9 g/dL (32-36)
[2019-06-06 02:08] LABS: Albumin Level 2.7 gm/dl (3.4-5.0); BUN Creatinine Ratio 9.5 (10-20); Calcium 8.8 mg/dl (8.5-10.1); Creatinine Clr Calc Pharmacy 39.9 ml/min; Est GFR (African American) 47.1; Est GFR (Non-African American) 40.7
[2019-06-06 02:10] LABS: Albumin Globulin Ratio 0.7 (0.9-2); Bilirubin,Total 0.4 mg/dl (0.2-1); Globulin 4.1 gm/dl (2.5-4.0); Total Protein 6.8 gm/dl (6.4-8.2)
[2019-06-06 02:24] LABS: Magnesium 1.9 mg/dl (1.8-2.4)
[2019-06-06 05:34] LABS: Basophils # (auto) 0.02 K/uL (0-0.2); Basophils % (auto) 0.4 %; Eosinophils # (auto) 0.15 K/uL (0-0.5); Eosinophils % (auto) 2.9 %; Hematocrit (blood only) 27.7 % (37-47); Hemoglobin 8.3 g/dL (12.0-16.0); Immature Granulocytes # (auto) 0.01 K/uL (0.00-0.02); Immature Granulocytes % (auto) 0.2 %; Lymphocytes # (auto) 1.24 K/uL (1.2-3.4); Lymphocytes % (auto) 23.9 %; Mean Corpuscular Hemoglobin 23.1 pg (25-34); Mean Corpuscular Volume 76.9 fL (80-100); Mean Platelet Volume 9.2 fL (7.4-10.4); Monocytes % (auto) 13.5 %; Neutrophils # (auto) 3.06 K/uL (1.4-6.5); Neutrophils % (auto) 59.1 %; Platelet Count 154 K/uL (130-400); RDW Coefficient of Variation 18.5 % (11.5-14.5); RDW Standard Deviation 52.7 fL (36.4-46.3); White Blood Count 5.18 K/uL (4.8-10.8)
[2019-06-06 06:01] LABS: BUN Creatinine Ratio 10.2 (10-20); Calcium 8.4 mg/dl (8.5-10.1); Creatinine Clr Calc Pharmacy 49.2 ml/min; Est GFR (African American) 60.7; Est GFR (Non-African American) 52.4; Potassium 3.8 mmol/L (3.5-5.1)
[2019-06-06 06:12] LABS: Troponin I 0.809 ng/ml (0-0.045)
--- NOTE | 2019-06-06 06:24 | XRay Report ---
XR chest 1V portable CLINICAL HISTORY: sob COMPARISON STUDY: 06/04/2019 FINDINGS: The heart is enlarged. There is diffuse elevation of the interstitium[the findings are like ly secondary to mild pulmonary vascular congestion. There is no lobar consolidation. IMPRESSION: Cardiomegaly and radiographic evidence of mild congestive failure/fluid overload. No evid ence of lobar consolidation Electronically signed by: Babatunde Morin M.D. 06/06/2019 6:23 AM
[2019-06-06] MEDS ORDERED: FUROSEMIDE 40 MG in SYRINGE 0 ML IV ONE (08:15)
[2019-06-06 08:43] LABS: Partial Thromboplastin Ratio 2.2
[2019-06-06 08:49] LABS: Partial Thromboplastin Time 58.9 Seconds (21.0-31.0)
--- NOTE | 2019-06-06 08:53 | Hospitalist Progress Note ---
Date of Service June 05 2019 June 06, 2019 Subjective Complained of chest pain last night. Ekg no acute findings. Troponin elevated at 1. Tachycardic. Started on iv lopressor prn, nitro paste, iv heparin, repeat troponin, echo and cardio consult. Also received morphine which helped with improving the pain. Results & Data Vital Signs (Past 12 Hours) Vital Signs Temp Pulse Pulse Resp BP BP Pulse Ox 06/06/19 07:59 37.2 C 93 H 18 178/84 H 98 06/06/19 04:09 37.2 C 102 H 20 150/84 H 93 06/06/19 01:20 109 H 28 H 167/111 H 93 06/06/19 00:56 125 H 06/06/19 00:26 117 H 24 164/84 H 99 06/05/19 23:26 100 H 06/05/19 23:13 37.2 C 105 H 24 172/94 H 100
[2019-06-06] MEDS: guaiFENesin 600 MG TABCR PO SCH ×2 (08:59→20:47)
[2019-06-06] MEDS: ATORVASTATIN 40 MG TAB PO SCH (08:59)
[2019-06-06] MEDS: GABAPENTIN 400 MG CAP PO SCH ×2 (08:59→20:47)
[2019-06-06] MEDS: carvediloL 25 MG TAB PO SCH ×2 (08:59→13:40)
[2019-06-06] MEDS: lisinopriL 40 MG TAB PO SCH (08:59)
[2019-06-06] MEDS: HEPARIN SOD 5,000 UNIT/0.5 ML VIAL SQ SCH (09:00)
[2019-06-06] MEDS: INSULIN ASPART 100 UNITS/ML 3 ML PEN SC SCH ×4 (09:00→20:48)
[2019-06-06] MEDS: PANTOprazole 40 MG TAB PO SCH (09:00)
--- NOTE | 2019-06-06 10:00 | Infectious Disease Consult ---
Date of Consultation June 06, 2019 Assessment & Plan (1) Hydronephrosis: would complete course of zosyn, 3 days. dapto stopped. no evidence on new uti but with recent procedure would give short emperic course (2) Acute UTI (urinary tract infection): History of Present Illness Attending Physician: Shayan Pinto MD pt admitted with lethargy. she recently had oupt stent removal, placed on keflex x [address] on 06/04 showed hydronephrosis on left. urine and blood cultures negative, she remains on dapto and zosyn, tolerating well. wbc normal. UA negative for bacteria. Flu swab negative. on my exam she states she is feeling better. she denies f/c, no abd pain, no n/v/d. dey in place. Allergies Allergy/AdvReac Type Severity Reaction Status Date / Time oxycodone Allergy Intermediate SEDATED Verified 06/04/19 15:54 Home Medications Home Medications Medication Instructions Recorded Confirmed Type carvedilol 25 mg PO BID #0 10/15/13 06/04/19 History metformin 1,000 mg PO BIDM #0 10/15/13 06/04/19 History metformin 500 mg PO QDL #0 10/15/13 06/04/19 History omega-3 fatty acids 2,000 mg PO DAILY #0 10/15/13 06/04/19 History omeprazole 20 mg PO QAM #0 10/15/13 06/04/19 History coenzyme Q10 100 mg PO DAILY #0 01/04/16 06/04/19 History diphenhydramine HCl [Benadryl] 25 mg PO DAILY PRN #0 02/21/16 06/04/19 History gabapentin 800 mg PO TID #0 tab 02/21/16 06/04/19 History lisinopril 40 mg PO QAM #0 02/21/16 06/04/19 History lorazepam 0.5 mg PO BID PRN #0 02/21/16 06/04/19 History atorvastatin 40 mg PO QAM #0 04/09/17 06/04/19 History dicyclomine 10 mg PO QID PRN #0 04/09/17 06/04/19 History metronidazole [Metrogel] 1 applic TOPICAL BID PRN 12/09/18 06/04/19 History valerian root 100 mg PO DAILY 12/09/18 06/04/19 History Slow-Mag 71.5 mg PO BIDM 05/12/19 06/04/19 History Systane Ultra 1 drp OPHTHALMIC (EYE) BID PRN 05/12/19 06/04/19 History cholecalciferol (vitamin D3) 50,000 unit PO MONTHLY 05/12/19 06/04/19 History tamsulosin 0.4 mg PO HS 30 Days #30 cap 05/15/19 06/04/19 Rx phenazopyridine [Pyridium] 200 mg PO Q8H PRN #9 tab 05/26/19 06/04/19 Rx Patient History Medical History Anxiety CKD (chronic kidney disease), stage III (Chronic) Diabetes mellitus, type 2 Diabetes mellitus, type II Dry eye syndrome Dyslipidemia (Chronic) GERD (gastroesophageal reflux disease) (Chronic) Hypertension (Chronic) Kidney stones (Chronic) Osteoarthritis Peripheral neuropathy Surgical History History of appendectomy History of carpal tunnel release left History of cataract surgery RT/LEFT History of discectomy LUMBAR (TOTAL 2 LUMBAR DISCECTOMY) History of hysterectomy History of tooth extraction Hx of colonoscopy with polypectomy (Resolved) Hx of eye surgery LASER PROCEDURE S/P cystoscopy with ureteral stent placement 05/13/19 MAC Family History Brother Family history of diabetes mellitus Social History Preferred Language: Macedonian Communication Ability: Effective Baker Pie Required: No Beliefs That Will Affect Care: None marital status: Current Living Situation: Spouse current occupational status: retired Other Information That Helps Us Care for You: No Feels Safe at Home: Yes Safety Concerns: Feels Safe At This Time Smoking Status: Former smoker Tobacco Type: cigarettes ; Do You Dip or Chew Tobacco: No ; Second Hand Exposure: No ; Tobacco Cessation Education Requested by Patient: No Hx Alcohol Use: No Hx Substance Use: No Review of Systems Review of Systems: All systems reviewed & are unremarkable except as noted in HPI & below Physical Exam Constitutional: WD/WN, vitals as above Eyes: PERRL, conjunctivae normal, anicteric sclerae ENMT: external ear and nose normal, oropharynx normal Neck: normal visual inspection Respiratory: normal respiratory effort, lungs clear to auscultation Cardiovascular: RRR, no murmur, no edema Gastrointestinal (Abdomen): normal bowel sounds, soft, nontender, no hepatosplenomegaly Musculoskeletal: no cyanosis or clubbing, extremities motor strength 5/5 Skin: no rashes, warm and dry Psychiatric: A+Ox3, euthymic affect Results & Data Vital Signs (Past 12 Hours) Vital Signs Temp Pulse Pulse Resp BP BP Pulse Ox 06/06/19 07:59 37.2 C 93 H 18 178/84 H 98 06/06/19 04:09 37.2 C 102 H 20 150/84 H 93 06/06/19 01:20 109 H 28 H 167/111 H 93 06/06/19 00:56 125 H 06/06/19 00:26 117 H 24 164/84 H 99 06/05/19 23:26 100 H 06/05/19 23:13 37.2 C 105 H 24 172/94 H 100 Laboratory Results Microbiology 06/04/19 16:00 Blood Aerobic Blood Culture - Preliminary No growth in Aerobic bottle after 24 hours. 06/04/19 16:00 Blood Anaerobic Blood Culture - Final 06/04/19 16:08 Blood Aerobic Blood Culture - Preliminary No growth in Aerobic bottle after 24 hours. 06/04/19 16:08 Blood Anaerobic Blood Culture - Preliminary No growth in Anaerobic bottle after 24 hours. 06/04/19 16:25 Urine,Straight Cath Urine Culture - Preliminary No growth - Less than 1,000 colonies/mL, Final report to follow. PG Care Time/CCT Total # of Minutes Spent Total Time Spent with Patient: Total time spent is greater than 50% in coordination of care (as documented) at patient's floor/unit and/or counseling patient: (1) Hydronephrosis Hydronephrosis type: unspecified Qualified Code(s): N13.30 - Unspecified hydronephrosis
--- NOTE | 2019-06-06 11:03 | Cardiology Consultation ---
Date of Consultation June 06, 2019 Assessment & Plan (1) NSTEMI (non-ST elevated myocardial infarction): Patient initially presented with attention, but hypertension is now noted. As an outpatient she is on a significant medication regimen for hypertension including high-dose carvedilol 25 mg twice daily and lisinopril 40 mg daily. His medications are to be continued. Heparin infusion started last evening, but it does not appear that she received aspirin. We will start aspirin. Continue topical nitrates at present. She has had a significant amount of urine output since administration of 40 mg of IV furosemide this morning at 8: 15. Need to moderate her intake and output especially with the IV fluid to be administered with her IV Zosyn. Not certain of her primary cause of her confusion and somnolence is due to her infectious process with suspected UTI or the myocardial infarction. At present, we will continue supportive care, as there is no indication for emergent coronary angiography as there is no ST segment elevation, her blood pressure stable, and she is not having ongoing angina. It sounds as though she had angina last night at about 11 PM, but she does not recall this at present. Prior to home treatment with atorvastatin will be continued. (2) Acute UTI (urinary tract infection): Continue antibiotic therapy. Although hydronephrosis noted on CT findings, she does not appear to have any residual obstructive stone in that area. May need to have urology weigh in on the CT findings. (3) Anemia: The patient was noted to have a hemoglobin level of 11.3 on 07/28/2017 as an outpatient at the [facility] lab. Her hemoglobin was 10 on 12/09/2018 as part of her preoperative testing prior to cataract surgery. Hemoglobin of 8.4 noted earlier this month on 05/13/2019. In the patient's hemoglobin is 8.3 today, with MCV suggestive of microcytic anemia. She does have history of colonic diverticulosis, but no edward GI bleeding. We will obtain iron studies. History of Present Illness Attending Physician: Shayan Pinto MD History of Present Illness Thuy Vargas is a 78-year-old female seen in cardiology consultation per the request of Dr Segal for the evaluation of mild elevation in troponin with concern of possible non-ST segment elevation myocardial infarction. The patient's primary care provider is Dr. Case [facility] of [facility]. She does not follow with cardiology as an outpatient. Her past medical history is relevant for type 2 diabetes mellitus, hypertension, dyslipidemia, and stage III chronic kidney disease. She presented via the emergency room with complaints of generalized weakness and lethargy. She recently had a cystoscopy with left ureter stent on 05/13/2019. She also received treatment with azithromycin for a respiratory tract infection with symptoms of sinus pressure cough and congestion on 05/31/2019. Initial work-up suggested urinary tract infection with urinalysis revealing 2+ blood, WBCs. She was treated with antibiotic therapy and IV fluids. Overnight last night she came progressively uncomfortable, and as described by her nurse, she apparently described midline chest discomfort and shortness of breath. An EKG was therefore obtained revealing new mild anterolateral ST changes in the precordial leads, and a troponin was drawn at 2332 hrs. last night which was elevated at 1.08 NG per mL. Repeat troponin this morning 525 was 0.809 NG per mL. She also received treatment with metoprolol and nitroglycerin. She did receive significant IV fluids because her blood pressure had been low, and most recently, her blood pressure is increased to 178/84, and a dose of IV furosemide was just ministered per the request of the primary team suspicion of subsequent volume overload. Her most recent EKG performed at 6:54 AM revealed sinus rhythm at 98 bpm, with mild ST-T wave changes in the right precordial leads V2 to V5 as well as the high lateral leads I and aVL that of replaced her previous mild nonspecific T wave abnormality noted on previous baseline EKG tracings dating back to 2015 as well as December,. At the time of my assessment at the bedside, the patient is lethargic, she is unable to recall that she had chest pain, and she is acute complaint. She is afebrile. Allergies Allergy/AdvReac Type Severity Reaction Status Date / Time oxycodone Allergy Intermediate SEDATED Verified 06/04/19 15:54 Home Medications Home Medications Medication Instructions Recorded Confirmed Type carvedilol 25 mg PO BID #0 10/15/13 06/04/19 History metformin 1,000 mg PO BIDM #0 10/15/13 06/04/19 History metformin 500 mg PO QDL #0 10/15/13 06/04/19 History omega-3 fatty acids 2,000 mg PO DAILY #0 10/15/13 06/04/19 History omeprazole 20 mg PO QAM #0 10/15/13 06/04/19 History coenzyme Q10 100 mg PO DAILY #0 01/04/16 06/04/19 History diphenhydramine HCl [Benadryl] 25 mg PO DAILY PRN #0 02/21/16 06/04/19 History gabapentin 800 mg PO TID #0 tab 02/21/16 06/04/19 History lisinopril 40 mg PO QAM #0 02/21/16 06/04/19 History lorazepam 0.5 mg PO BID PRN #0 02/21/16 06/04/19 History atorvastatin 40 mg PO QAM #0 04/09/17 06/04/19 History dicyclomine 10 mg PO QID PRN #0 04/09/17 06/04/19 History metronidazole [Metrogel] 1 applic TOPICAL BID PRN 12/09/18 06/04/19 History valerian root 100 mg PO DAILY 12/09/18 06/04/19 History Slow-Mag 71.5 mg PO BIDM 05/12/19 06/04/19 History Systane Ultra 1 drp OPHTHALMIC (EYE) BID PRN 05/12/19 06/04/19 History cholecalciferol (vitamin D3) 50,000 unit PO MONTHLY 05/12/19 06/04/19 History tamsulosin 0.4 mg PO HS 30 Days #30 cap 05/15/19 06/04/19 Rx phenazopyridine [Pyridium] 200 mg PO Q8H PRN #9 tab 05/26/19 06/04/19 Rx Patient History Medical History Anxiety CKD (chronic kidney disease), stage III (Chronic) Diabetes mellitus, type 2 Diabetes mellitus, type II Dry eye syndrome Dyslipidemia (Chronic) GERD (gastroesophageal reflux disease) (Chronic) Hypertension (Chronic) Kidney stones (Chronic) Osteoarthritis Peripheral neuropathy Surgical History History of appendectomy History of carpal tunnel release left History of cataract surgery RT/LEFT History of discectomy LUMBAR (TOTAL 2 LUMBAR DISCECTOMY) History of hysterectomy History of tooth extraction Hx of colonoscopy with polypectomy (Resolved) Hx of eye surgery LASER PROCEDURE S/P cystoscopy with ureteral stent placement 05/13/19 MAC Family History Brother Family history of diabetes mellitus Social History Preferred Language: Occitan Communication Ability: Effective Credit Processor Required: No Beliefs That Will Affect Care: None marital status: Current Living Situation: Spouse current occupational status: retired Other Information That Helps Us Care for You: No Feels Safe at Home: Yes Safety Concerns: Feels Safe At This Time Smoking Status: Former smoker Tobacco Type: cigarettes ; Do You Dip or Chew Tobacco: No ; Second Hand Exposure: No ; Tobacco Cessation Education Requested by Patient: No Hx Alcohol Use: No Hx Substance Use: No Review of Systems Review of Systems: Unobtainable due to reduced consciousness Physical Exam Physical Exam: Temp Pulse Resp BP Pulse Ox 37.2 C 93 H 18 178/84 H 98 06/06/19 07:59 06/06/19 07:59 06/06/19 07:59 06/06/19 07:59 06/06/19 07:59 Constitutional: Obese, ill in appearance, without acute distress Respiratory: Bilateral rales at the bases, left worse than right Cardiovascular: RRR, no murmur, no edema Gastrointestinal (Abdomen): normal bowel sounds, soft, nontender, no hepatosplenomegaly Neurologic: PERRL, EOMI, accommodation nl, no face palsy, no dysarthria No focal deficit, definite lethargy and somnolence noted Results & Data Vital Signs (Past 12 Hours) Vital Signs Temp Pulse Pulse Resp BP BP Pulse Ox 06/06/19 07:59 37.2 C 93 H 18 178/84 H 98 06/06/19 04:09 37.2 C 102 H 20 150/84 H 93 06/06/19 01:20 109 H 28 H 167/111 H 93 06/06/19 00:56 125 H 06/06/19 00:26 117 H 24 164/84 H 99 06/05/19 23:26 100 H 06/05/19 23:13 37.2 C 105 H 24 172/94 H 100 Laboratory Results Cardiac Enzymes 06/05/19 06/05/19 06/06/19 Range/Units 23:31 23:32 05:25 AST 50 H (15-37) U/L Troponin I 1.080 H* 0.809 H* (0-0.045) ng/ml 06/06/19 Range/Units 05:25 AST (15-37) U/L Troponin I Cancelled (0-0.045) ng/ml Coagulation 06/06/19 06/06/19 Range/Units 00:48 07:54 APTT 28.5 58.9 H* (21.0-31.0) Seconds CBC 06/05/19 06/06/19 Range/Units 23:31 05:25 WBC 5.35 5.18 (4.8-10.8) K/uL RBC 3.88 L 3.60 L (4.2-5.4) M/uL Hgb 9.0 L 8.3 L (12.0-16.0) g/dL Hct 30.1 L 27.7 L (37-47) % Plt Count 187 154 (130-400) K/uL Neut # (Auto) 3.27 3.06 (1.4-6.5) K/uL Lymph # (Auto) 1.11 L 1.24 (1.2-3.4) K/uL [place] # (Auto) 0.78 H 0.70 H (0.11-0.59) K/uL Eos # (Auto) 0.15 0.15 (0-0.5) K/uL Baso # (Auto) 0.02 0.02 (0-0.2) K/uL Comprehensive Metabolic Panel 06/05/19 06/06/19 Range/Units 23:31 05:25 Sodium 140 138 (136-145) mmol/L Potassium 4.0 3.8 (3.5-5.1) mmol/L Chloride 109 H 109 H (98-107) mmol/L Carbon Dioxide 23 23 (21-32) mmol/L BUN 12 10 (7-18) mg/dl Creatinine 1.27 H 1.03 (0.6-1.2) mg/dl Glucose 176 H 182 H (70-99) mg/dl Calcium 8.8 8.4 L (8.5-10.1) mg/dl AST 50 H (15-37) U/L ALT 26 (12-78) U/L Alkaline Phosphatase 60 (45-117) U/L Total Protein 6.8 (6.4-8.2) gm/dl Albumin 2.7 L (3.4-5.0) gm/dl Intake and Output 06/05/19 06/06/19 06/06/19 22:59 06:59 14:59 Intake Total 732.000 / 2102.000 120 / 2102.000 192.8 / 192.8 Output Total 1050 / 2750 900 / 2750 Balance -318.000 / -648.000 -780 / -648.000 192.8 / 192.8 Intake: IV 510.000 / 1440.000 120 / 1440.000 192.8 / 192.8 HEPARIN SODIUM/DEXTROSE 25,000 192.8 / 192.8 units In 500 ml @ 1,200 UNITS/ HR 24 mls/hr IV .[id number] URI Rx #:[id number] Zosyn 4.5 gm In D5 100 ml @ 30 120 / 360 120 / 360 mls/hr IV Q8H URI Rx#:[id number] Nss 1000ML 1,000 ml @ 50 mls/hr 390.000 / 880.000 IV .Q20H URI Rx#:[id number] Oral 222 / 662 Output: Urine Amount (Catheter) 1050 / 2750 900 / 2750 Hernandez/Indwelling 1050 / 2750 900 / 2750 Other: Weight 91.2 kg Diagnostic Findings EKG tracings as outlined above Echocardiogram performed earlier today and reviewed independently reveals a subtle LAD wall motion abnormality with hypokinesis of the anteroseptal segments at the mid level. The LV apex is not well-visualized due to suboptimal images, poor acoustic windows, foreshortening of the LV apex. Summary of radiology report of noncontrast CT of the abdomen and pelvis: 1. No evidence of bowel obstruction. No evidence of free air 2. Extensive pandiverticulosis. No evidence of acute diverticulitis 3. Bilateral nephrolithiasis 4. Mild left-sided hydronephrosis and left hydroureter with resolution of the previously identified perinephric infiltration. The previously identified distal left ureteral calculus is no longer visualized. The left-sided hydronephrosis may represent a residua from prior obstruction, or could be secondary to ureteral edema status post instrumentation. Clinical follow-up will be necessary.
[2019-06-06] MEDS ORDERED: ASPIRIN 81 MG CHEW PO STA (11:06)
[2019-06-06 11:45] LABS: Reticulocyte % 1.1 % (0.5-2.0); Reticulocytes # 0.05 10^6/uL (0.02-0.10)
[2019-06-06 12:09] LABS: Ferritin 45.4 ng/ml (8-388)
--- NOTE | 2019-06-06 12:13 | Hospitalist Progress Note ---
Date of Service June 06, 2019 Assessment & Plan (1) NSTEMI (non-ST elevated myocardial infarction): Has had chest pain last night Noted to have pronounced ST-T changes 1 aVL and lateral leads Likely has NSTEMI with increasing troponin Has been on intravenous heparin and aspirin started this morning Await echo results Appreciate cardiology input and recommendation She seems to be free of pain this morning (2) Sepsis: Pt is 78 y/o F with PMH HTN, dyslipidemia, DM II, GERD, CKD III, diastolic dysfunction, LVH presented to ER with c/o weakness x 1 day.Recent cystoscopy and left ureteral stent 05/13/[address] Bone. On 05/26/2018 had cystoscopy, ureteroscopy, stent, basket retrieval ureteral stone. 05/26/2019 patient was given Keflex for 5-day course. Pt instructed self pull stent on 05/28/19 which reports did without difficulty CT HEAD: No acute intracranial findings CT ABD/PELVIS:1. No evidence of bowel obstruction. No evidence of free air. 2. Extensive pandiverticulosis. No evidence of acute diverticulitis. 3. Bilateral nephrolithiasis. 4. Mild left-sided hydronephrosis and left hydroureter with resolution of the previously identified perinephric infiltration. The previously identified distal left ureteral calculus is no longer visualized. The left-sided hydronephrosis may represent a residua from prior obstruction, or could be secondary to ureteral edema status post instrumentation. Clinical follow-up will be necessary. CXR: Cardiomegaly with no acute cardiopulmonary abnormality. Likely secondary to UTI Urine culture is not growing any organism likely due to receiving of antibiotic We will continue intravenous antibiotic for 3 days She is clinically a lot better and will get PT and OT evaluation Appreciate ID input and recommendation (3) Acute kidney injury superimposed on CKD: H/O CKD III. Baseline Cr ~0.9-1.0 Today BUN: 17, Cr: 1.7, GFR: 28 -IVF -Monitor renal functions -Hold lisinopril, metformin -Hold gabapentin for now, may consider resuming at renal dosing when appropriate -Avoid other nephrotoxic agents when possible -If no improvement consider nephrology consult -Her creatinine is improved to 1.25 as of 06/05 (4) Weakness: Pt with increased weakness, lethargy over past 24 hours. Reported 3 falls over past 24 hours with no known injury Probable secondary to underlying infection -Consider PT/OT when appropriate (5) Hypertension: Presented hypotensive which responded to IVF -Hold lisinopril, carvedilol at this time -Carvedilol has been started and will start lisinopril from tomorrow if kidney function is much better We will continue current dose of antihypertensives (6) Diabetes mellitus, type II: A1c: 7.6 on 05/19/19 -Hold metformin -Novolog sliding scale per protocol -Monitor BSGs (7) Anemia: Chronic anemia. Baseline Hgb~ 9-10 Hgb: 9. No signs of bleeding Hemoglobin is dropped to 8.3 as of 06/06 In part could be due to dilation We will check a stool for occult blood Iron studies (8) Diastolic dysfunction: 2015 echo with EF: 60%, grade 1 diastolic dysfunction, LVF At this time appears dehydrated Noted to have mild CHF on chest x-ray She received 1 dose of 40 mg Lasix intravenously and diuresed enough (9) GERD (gastroesophageal reflux disease): -Continue PPI (10) Dyslipidemia: -Hold statin for now DVT Prophylaxis -Heparin SQ Full Code as per discussion with pt's and recent discussion with pt on recent admission earlier this month Follows with Dr House for routine care Subjective 06/04 The patient was seen and examined in emergency room in presence of the and the daughter She is pleasantly confused and was brought in with extreme weakness and ti redness and recurrent falls Likely has complicated UTI 06/05 The patient was seen and examined in telemetry unit She is out of bed on a chair and has been feeling a lot better Her confusion is improved She denies any acute symptoms except weakness 06/06 Patient was seen and examined in telemetry unit She has had chest pain last night and noted to have EKG changes with increased troponin and was started on intravenous heparin She has been feeling a lot better today and her confusion is improved Noted to have mild CHF and chest x-ray Denies any chest pain and/or palpitation, no shortness of breath at rest, no abdominal pain, nausea no vomiting Review of Systems Review of Systems: All systems reviewed and are unremarkable except as noted below Neurologic: Generally weak and lethargic. Pleasantly confused but the confusion is overall improved Physical Exam Physical Exam: Lying in bed without any acute symptoms and looks very weak and lethargic Constitutional: well developed, well nourished, + ill appearing and + obese; no acute distress Eyes: PERRL, conjunctivae normal, anicteric sclerae ENMT: external ear and nose normal, oropharynx normal Neck: trachea midline, no thyromegaly Respiratory: normal respiratory effort; no respiratory distress Auscultation: + crackles (At the bases) Cardiovascular: Rate/Rhythm: regular rate and regular rhythm Heart Sounds: no murmur Extremities: + edema (Trace bilaterally) Gastrointestinal (Abdomen): Inspection/Auscultation: abdomen normal to inspection and normal bowel sounds Percussion/Palpation: abdomen soft; abdomen nontender Musculoskeletal: No acute arthritis in any of the joints Neurologic: moves all extremities; no focal motor deficits Remains very weak and lethargic Lymphatic: no cervical or axillary lymphadenopathy Results & Data Vital Signs (Past 12 Hours) Vital Signs Temp Pulse Pulse Resp BP BP Pulse Ox 06/06/19 11:35 36.8 C 86 18 101/54 L 100 06/06/19 07:59 37.2 C 93 H 18 178/84 H 98 06/06/19 04:09 37.2 C 102 H 20 150/84 H 93 06/06/19 01:20 109 H 28 H 167/111 H 93 06/06/19 00:56 125 H 06/06/19 00:26 117 H 24 164/84 H 99 Laboratory Results Short CBC 06/05/19 06/06/19 Range/Units 23:31 05:25 WBC 5.35 5.18 (4.8-10.8) K/uL Hgb 9.0 L 8.3 L (12.0-16.0) g/dL Hct 30.1 L 27.7 L (37-47) % Plt Count 187 154 (130-400) K/uL BMP 06/05/19 06/06/19 23:31 05:25 Sodium 140 138 Potassium 4.0 3.8 Chloride 109 H 109 H Carbon Dioxide 23 23 BUN 12 10 Creatinine 1.27 H 1.03 Glucose 176 H 182 H Calcium 8.8 8.4 L Cardiac Enzymes 06/05/19 06/06/19 06/06/19 Range/Units 23:32 05:25 05:25 Total Creatine Kinase 856 H (26-192) U/L Troponin I 1.080 H* 0.809 H* Cancelled (0-0.045) ng/ml Liver Function 06/05/19 Range/Units 23:31 Total Bilirubin 0.4 (0.2-1) mg/dl AST 50 H (15-37) U/L ALT 26 (12-78) U/L Alkaline Phosphatase 60 (45-117) U/L Albumin 2.7 L (3.4-5.0) gm/dl Medications Administered Current Inpatient Medications Acetaminophen (Tylenol) 650 mg PO Q4H PRN PRN Reason: Pain or Fever Stop: 07/04/19 19:37 Last Admin: 06/05/19 13:12 Dose: 650 mg Documented by: Aspirin (Ecotrin Ectab) 81 mg PO QAM [facility] Stop: 07/07/19 08:59 Atorvastatin Calcium (Lipitor) 40 mg PO QAM [facility] Stop: 07/06/19 08:59 Last Admin: 06/06/19 08:59 Dose: 40 mg Documented by: Carvedilol (Coreg) 25 mg PO BID@0900,1200 [facility] Stop: 07/05/19 11:59 Last Admin: 06/06/19 08:59 Dose: 25 mg Documented by: Dextrose (Dextrose 50%) 25 - 50 ml IV UD PRN; Protocol PRN Reason: Hypoglycemia Protocol Stop: 07/04/19 19:37 Gabapentin (Neurontin) 400 mg PO BID [facility] Stop: 07/05/19 23:14 Last Admin: 06/06/19 08:59 Dose: 400 mg Documented by: Glucagon (Glucagen) 1 mg SQ UD PRN; Protocol PRN Reason: Hypoglycemia Protocol Stop: 07/04/19 19:37 Glucose (Dex4 Glucose) 4 - 8 tabs PO UD PRN; Protocol PRN Reason: Hypoglycemia Protocol Stop: 07/04/19 19:37 Glucose (Glucose 40%) 15 - 30 gm PO UD PRN; Protocol PRN Reason: Hypoglycemia Protocol Stop: 07/04/19 19:37 Guaifenesin (Mucinex) 600 mg PO Q12 [facility] Stop: 07/04/19 21:59 Last Admin: 06/06/19 08:59 Dose: 600 mg Documented by: Heparin Sodium (Porcine) (Heparin Sodium (Porcine)) 5,000 units SQ Q12 [facility] Stop: 07/04/19 20:59 Last Admin: 06/06/19 09:00 Dose: Not Given Documented by: Sodium Chloride (Nss 1000ml) 1,000 mls @ 50 mls/hr IV .Q20H URI Stop: 07/04/19 19:37 Last Infusion: 06/05/19 18:18 Dose: 0 mls/hr Documented by: Piperacillin Sod/Tazobactam (Sod 4.5 gm/ Dextrose) 120 mls @ 30 mls/hr IV Q8H [facility]; Protocol Stop: 06/07/19 01:59 Last Admin: 06/06/19 10:40 Dose: 30 mls/hr Documented by: Heparin Sodium/Dextrose (Heparin Sodium/Dextrose) 25,000 units in 500 mls @ 24 mls/hr IV .[id number] [facility]; Protocol Stop: 07/06/19 00:29 Last Titration: 06/06/19 09:14 Dose: 1,200 units/hr, 24 mls/hr Documented by: Insulin Aspart (Novolog Flexpen) 0 units SC ACHS [facility] Stop: 07/04/19 20:59 Last Admin: 06/06/19 09:00 Dose: 2 units Documented by: Lisinopril (Zestril) 40 mg PO QAM [facility] Stop: 07/06/19 08:59 Last Admin: 06/06/19 08:59 Dose: 40 mg Documented by: Metoprolol Tartrate (Lopressor) 2.5 mg IV Q4 PRN PRN Reason: Hypertension Stop: 07/06/19 00:00 Last Admin: 06/06/19 00:56 Dose: 2.5 mg Documented by: Miscellaneous (Order Awaiting Action) 1 ea N/A QS [facility] Stop: 07/05/19 00:00 Last Admin: 06/06/19 07:35 Dose: Not Given Documented by: Miscellaneous (Carbohydrates For Hypoglycemia) 15 - 30 gm PO UD PRN PRN Reason: Hypoglycemia Protocol Stop: 07/04/19 19:37 Miscellaneous (Order Awaiting Action) 1 ea N/A QS [facility] Stop: 07/05/19 15:59 Last Admin: 06/06/19 07:35 Dose: Not Given Documented by: Miscellaneous Information (Consult) 1 ea N/A UD PRN PRN Reason: Consult Stop: 07/04/19 19:48 Nitroglycerin (Nitro-Bid 2%) 0.5 inch EXT Q6 [facility] Stop: 07/06/19 00:29 Last Admin: 06/06/19 06:03 Dose: 0.5 inch Documented by: Pantoprazole Sodium (Protonix) 40 mg PO QAM [facility] Stop: 07/05/19 08:59 Last Admin: 06/06/19 09:00 Dose: 40 mg Documented by: Phenazopyridine HCl (Pyridium) 200 mg PO Q8H PRN PRN Reason: pain Stop: 07/05/19 09:36 Tamsulosin HCl (Flomax) 0.4 mg PO HS URI Stop: 07/04/19 20:59 Last Admin: 06/05/19 20:44 Dose: Not Given Documented by:
--- NOTE | 2019-06-06 13:14 | Ultrasound Report ---
US venous doppler LE bilateral CLINICAL HISTORY: recent hospital stay,abnormal EKG,DVT LEG SWELLING COMPARISON STUDY: No previous studies for comparison. FINDINGS: Real-time and color flow Doppler imaging were performed. Flow was seen within the femoral, popliteal and calf veins with no intraluminal thrombus demonstrated. The saphenous vein is patent.. N ote is made of a right popliteal cyst, measuring 30 x 53 x 16 mm.. IMPRESSION: No evidence of lower extremity DVT. Electronically signed by: Babatunde oMrin M.D. 06/06/2019 1:13 PM
[2019-06-06] MEDS: SODIUM CHLORIDE 0.9% 1000ML 1,000 ML IV SCH (13:42)
[2019-06-06] MEDS ORDERED: POTASSIUM CHLORIDE 20 MEQ TABCR PO STA (14:02)
[2019-06-07] MEDS ORDERED: FUROSEMIDE 20 MG in SYRINGE 0 ML IV ONE (01:30)
[2019-06-07] MEDS: METOPROLOL TARTRATE 1 MG/ML VIAL IV PRN (02:25)
[2019-06-07] MEDS ORDERED: MoRPHine SULFATE 4 MG/ML 1 ML CARP\\VIAL IV STA (02:36)
[2019-06-07] MEDS ORDERED: MoRPHine SULFATE 4 MG/ML 1 ML CARP\\VIAL ONE (02:41)
[2019-06-07] MEDS ORDERED: LORazepam 0.5 MG TAB PO PRN (03:25)
[2019-06-07] MEDS ORDERED: GABAPENTIN 800 MG TAB PO STA (03:25)
[2019-06-07] MEDS ORDERED: LORazepam 0.5 MG TAB PO STA (03:25)
[2019-06-07 03:32] LABS: Basophils # (auto) 0.06 K/uL (0-0.2); Basophils % (auto) 0.8 %; Eosinophils # (auto) 0.16 K/uL (0-0.5); Eosinophils % (auto) 2.2 %; Hematocrit (blood only) 32.2 % (37-47); Hemoglobin 9.6 g/dL (12.0-16.0); Immature Granulocytes # (auto) 0.01 K/uL (0.00-0.02); Immature Granulocytes % (auto) 0.1 %; Lymphocytes # (auto) 1.45 K/uL (1.2-3.4); Lymphocytes % (auto) 19.5 %; Mean Corpuscular Hemoglobin 23.4 pg (25-34); Mean Corpuscular Hgb Conc 29.8 g/dL (32-36); Mean Corpuscular Volume 78.3 fL (80-100); Mean Platelet Volume 9.6 fL (7.4-10.4); Monocytes # (auto) 1.01 K/uL (0.11-0.59); Monocytes % (auto) 13.6 %; Neutrophils # (auto) 4.75 K/uL (1.4-6.5); Neutrophils % (auto) 63.8 %; Platelet Count 201 K/uL (130-400); RDW Coefficient of Variation 18.4 % (11.5-14.5); RDW Standard Deviation 53.2 fL (36.4-46.3); Red Blood Count 4.11 M/uL (4.2-5.4); White Blood Count 7.44 K/uL (4.8-10.8)
[2019-06-07 03:51] LABS: Albumin Level 2.7 gm/dl (3.4-5.0); BUN Creatinine Ratio 9.3 (10-20); Calcium 9.4 mg/dl (8.5-10.1); Est GFR (African American) 62.2; Est GFR (Non-African American) 53.7; Magnesium 1.5 mg/dl (1.8-2.4); Potassium 3.5 mmol/L (3.5-5.1)
[2019-06-07 04:08] LABS: Albumin Globulin Ratio 0.6 (0.9-2); Bilirubin,Total 0.5 mg/dl (0.2-1); Globulin 4.9 gm/dl (2.5-4.0); Total Protein 7.6 gm/dl (6.4-8.2); Troponin I 0.265 ng/ml (0-0.045)
[2019-06-07] MEDS ORDERED: POTASSIUM CHLORIDE 20 MEQ TABCR PO STA ×2 (04:13→09:10)
[2019-06-07] MEDS ORDERED: metroNIDAZOLE 0.75% TOPICAL GEL 45 GM TUBE TOP PRN (04:27)
[2019-06-07] MEDS ORDERED: ARTIFICIAL TEARS OP PRN (04:28)
[2019-06-07] MEDS: MAGNESIUM SULFATE / D5W 1 GM/100 ML BAG IV SCH ×2 (05:13→06:01)
[2019-06-07] MEDS: NITROGLYCERIN 2% OINTMENT 30GM TUBE EXT SCH (05:17)
[2019-06-07] MEDS: INSULIN ASPART 100 UNITS/ML 3 ML PEN SC SCH ×4 (08:29→20:18)
[2019-06-07] MEDS: GABAPENTIN 800 MG TAB PO SCH ×3 (08:30→20:16)
[2019-06-07] MEDS: PANTOprazole 40 MG TAB PO SCH (08:30)
[2019-06-07] MEDS: ATORVASTATIN 40 MG TAB PO SCH (08:30)
[2019-06-07] MEDS: guaiFENesin 600 MG TABCR PO SCH ×2 (08:31→20:16)
[2019-06-07] MEDS: ASPIRIN 81 MG ECTAB PO SCH (08:31)
[2019-06-07] MEDS: carvediloL 25 MG TAB PO SCH ×2 (08:31→20:17)
[2019-06-07] MEDS: lisinopriL 40 MG TAB PO SCH (08:32)
[2019-06-07] MEDS ORDERED: MAGNESIUM SULFATE / D5W 1 GM/100 ML BAG IV SCH (09:30)
[2019-06-07] MEDS ORDERED: carvediloL 12.5 MG TAB PO ONE (10:19)
--- NOTE | 2019-06-07 10:23 | Cardiology Progress Note ---
Date of Service June 07, 2019 Assessment & Plan (1) NSTEMI (non-ST elevated myocardial infarction): Patient presented with generalized lethargy. Her chief complaint on initial presentation in the emergency room was not chest discomfort or shortness of breath. Antibiotics were initiated due to concerns of sepsis from a UTI, as well as IV hydration. By 11 PM on hospital day 1 she developed chest discomfort and shortness of breath. EKG revealed new anterior, anterolateral ST changes, and her troponin became elevated to just over 1 ng/ml. She received diuretic therapy with 2.7 L of urine output on 06/06/2019, and 4.4 L of urine output thus far today. At this time, I think she had a non-ST segment elevation myocardial infarction based on her symptoms of chest discomfort, mild elevation troponin I, and new T wave churches in the LAD distribution on EKG as well as subtle LAD territory wall motion abnormality on echocardiogram with low normal LVEF. This of course occurred in the setting of presumed sepsis, and volume overload from aggressive hydration in the setting of sepsis. At present, I recommend continued medical management. Iron deficiency anemia is noted. Her hemoglobin is stable today, but her iron level was proven to be low on testing yesterday. She has a history of diverticulosis both clinically and on imaging, this may be the source of her slow chronic blood loss. At present, I favor ongoing medical management given her underlying anemia, and her suboptimal mental status. She is unable to provide history for me today. Her states that she is debilitated, he does all the cooking, and she does have short-term memory problems. If PCI is performed, she would be committed to dual antiplatelet therapy, and then I would be concerned that she could have worsening anemia from the bleeding complication. If she has ongoing symptoms, cardiac catheterization may become necessary, but at present, I plan to increase her carvedilol to 37.5 mg twice daily, discontinue with topical nitrates, and start her on Imdur. I anticipate a daily diuretic dose will be necessary for her diastolic dysfunction. i IV heparin for now. (2) Sepsis: Microbiology findings stable thus far.non-Vianca albicans yeast noted, for which topical therapy has been added. (3) Dyslipidemia: Continue atorvastatin (4) Iron deficiency anemia: Low-dose oral iron supplementation added today. Her volume status is stable tomorrow, may consider IV iron infusion. Subjective Chief complaint: Follow-up chest pain, shortness of breath Subjective: Patient seen and examined. Her and son are at the bedside. Apparently at 2 AM she had complained of intermittent chest discomfort, prompting a dose of morphine and furosemide. At present, she is able to tell me her 's name and that they have been for 53 years, but she is really not capable of providing any additional history. She is somewhat lethargic. Telemetry revealed stable sinus rhythm in the 70 to 80 bpm range. Review of Systems Review of Systems: All systems reviewed & are unremarkable except as noted in HPI & below Physical Exam Physical Exam: Temp Pulse Resp BP Pulse Ox 36.7 C 93 H 18 126/71 100 06/07/19 08:11 06/07/19 08:11 06/07/19 08:11 06/07/19 08:11 06/07/19 08:11 Constitutional: no acute distress Respiratory: normal respiratory effort, lungs clear to auscultation Cardiovascular: RRR, no murmur, no edema Gastrointestinal (Abdomen): normal bowel sounds, soft, nontender, no hepatosplenomegaly Skin: no rashes, warm and dry Neurologic: PERRL, EOMI, accommodation nl, no face palsy, no dysarthria Noted somnolence. Results & Data Vital Signs (Past 12 Hours) Vital Signs Temp Pulse Pulse Resp BP BP BP 06/07/19 08:11 36.7 C 93 H 18 126/71 06/07/19 04:02 99 H 160/92 H 06/07/19 02:48 100 H 06/07/19 02:47 18 167/87 H 06/07/19 02:25 108 H 179/108 H 06/07/19 01:10 06/07/19 01:01 117 H 26 H 191/92 H 06/06/19 23:31 99 H 06/06/19 22:29 37.2 C 93 H 20 179/83 H Pulse Ox 06/07/19 08:11 100 06/07/19 04:02 06/07/19 02:48 06/07/19 02:47 98 06/07/19 02:25 06/07/19 01:10 93 06/07/19 01:01 89 L 06/06/19 23:31 06/06/19 22:29 100 Diagnostic Findings EKG this morning 06/07/2019: Sinus rhythm with PACs, possible age-indeterminate anterior infarction, with T wave inversions that are more prominent compared to prior tracings. The T wave changes are more prominent than the tracing performed overnight last night at 2:12 AM.
[2019-06-07] MEDS: FERROUS SULFATE 325 MG TAB PO SCH (10:54)
[2019-06-07] MEDS: ISOSORBIDE MONO EXTENDED REL 30 MG TABCR PO SCH (10:54)
--- NOTE | 2019-06-07 15:03 | Hospitalist Progress Note ---
Date of Service June 07, 2019 Assessment & Plan (1) NSTEMI (non-ST elevated myocardial infarction): Has had chest pain last night Noted to have pronounced ST-T changes 1 aVL and lateral leads Likely has NSTEMI with increasing troponin Has been on intravenous heparin and aspirin started this morning Await echo results: Study was technically difficult, LV apex was not well visualized, small sized anteroseptal wall motion abnormality with hypokinesis of the segments, LV systolic function is normal, LVEF was 50 to 55% and there is mild mitral regurgitation Appreciate cardiology input and recommendation Has had chest pain last night 06/05 and again on 06/06 and the troponin went up a little bit Has been started with ISMO and other medications adjusted Has a high risk for any procedure like cardiac cath and also high risk of getting any medications like Plavix (2) Sepsis: Pt is 78 y/o F with PMH HTN, dyslipidemia, DM II, GERD, CKD III, diastolic dysfunction, LVH presented to ER with c/o weakness x 1 day.Recent cystoscopy and left ureteral stent 05/13/[address] Bone. On 05/26/2018 had cystoscopy, ureteroscopy, stent, basket retrieval ureteral stone. 05/26/2019 patient was given Keflex for 5-day course. Pt instructed self pull stent on 05/28/19 which reports did without difficulty CT HEAD: No acute intracranial findings CT ABD/PELVIS:1. No evidence of bowel obstruction. No evidence of free air. 2. Extensive pandiverticulosis. No evidence of acute diverticulitis. 3. Bilateral nephrolithiasis. 4. Mild left-sided hydronephrosis and left hydroureter with resolution of the previously identified perinephric infiltration. The previously identified distal left ureteral calculus is no longer visualized. The left-sided hydronephrosis may represent a residua from prior obstruction, or could be secondary to ureteral edema status post instrumentation. Clinical follow-up will be necessary. CXR: Cardiomegaly with no acute cardiopulmonary abnormality. Likely secondary to UTI Urine culture is not growing any organism likely due to receiving of antibiotic We will continue intravenous antibiotic for 3 days She is clinically a lot better and will get PT and OT evaluation Appreciate ID input and recommendation We will continue current antibiotic (3) Acute kidney injury superimposed on CKD: H/O CKD III. Baseline Cr ~0.9-1.0 Today BUN: 17, Cr: 1.7, GFR: 28 -IVF -Monitor renal functions -Hold lisinopril, metformin -Hold gabapentin for now, may consider resuming at renal dosing when appropriate -Avoid other nephrotoxic agents when possible -If no improvement consider nephrology consult -Her creatinine is improved to 1.25 as of 06/05 -Creatinine is normalized (4) Weakness: Pt with increased weakness, lethargy over past 24 hours. Reported 3 falls over past 24 hours with no known injury Probable secondary to underlying infection -Consider PT/OT when appropriate (5) Hypertension: Presented hypotensive which responded to IVF -Hold lisinopril, carvedilol at this time -Carvedilol has been started and will start lisinopril from tomorrow if kidney function is much better We will continue current dose of antihypertensives (6) Diabetes mellitus, type II: A1c: 7.6 on 05/19/19 -Hold metformin -Novolog sliding scale per protocol -Monitor BSGs (7) Anemia: Chronic anemia. Baseline Hgb~ 9-10 Hgb: 9. No signs of bleeding Hemoglobin is dropped to 8.3 as of 06/06 In part could be due to dilation We will check a stool for occult blood Iron studies-iron level has been low Started with oral iron supplement Hemoglobin is more than 9 as of 06/07 (8) Diastolic dysfunction: 2015 echo with EF: 60%, grade 1 diastolic dysfunction, LVF At this time appears dehydrated Noted to have mild CHF on chest x-ray She received 1 dose of 40 mg Lasix intravenously and diuresed enough -Received another dose of Lasix last night -Feeling better since this morning (9) GERD (gastroesophageal reflux disease): -Continue PPI (10) Dyslipidemia: -Hold statin for now DVT Prophylaxis -Heparin SQ Full Code as per discussion with pt's and recent discussion with pt on recent admission earlier this month Follows with Dr House for routine care Subjective 06/04 The patient was seen and examined in emergency room in presence of the and the daughter She is pleasantly confused and was brought in with extreme weakness and tiredness and recurrent falls Likely has complicated UTI 06/05 The patient was seen and examined in telemetry unit She is out of bed on a chair and has been feeling a lot better Her confusion is improved She denies any acute symptoms except weakness 06/06 Patient was seen and examined in telemetry unit She has had chest pain last night and noted to have EKG changes with increased troponin and was started on intravenous heparin She has been feeling a lot better today and her confusion is improved Noted to have mild CHF and chest x-ray Denies any chest pain and/or palpitation, no shortness of breath at rest, no abdominal pain, nausea no vomiting 06/07 The patient was seen and examined in presence of the She has had chest pain last night and received 1 dose of intravenous Lasix for shortness of breath She remains very weak and lethargic She goes back to sleep after the brief period of communication She is not in any acute distress and denies any chest pain and/or palpitation Review of Systems Review of Systems: All systems reviewed and are unremarkable except as noted below Neurologic: Generally weak and lethargic. Remains pleasantly confused and goes to sleep almost immediately after a brief period of communication with the provider or anybody else Physical Exam Physical Exam: Lying in bed very lethargic Constitutional: well developed, well nourished, + ill appearing and + obese; no acute distress Eyes: PERRL, conjunctivae normal, anicteric sclerae ENMT: external ear and nose normal, oropharynx normal Neck: trachea midline, no thyromegaly Respiratory: normal respiratory effort; no respiratory distress Auscultation: + crackles (At the bases) Cardiovascular: Rate/Rhythm: regular rate and regular rhythm Heart Sounds: no murmur Extremities: + edema (Trace bilaterally) Gastrointestinal (Abdomen): Inspection/Auscultation: abdomen normal to inspection and normal bowel sounds Percussion/Palpation: abdomen soft; abdomen nontender Neurologic: moves all extremities; no focal motor deficits Lymphatic: no cervical or axillary lymphadenopathy Results & Data Vital Signs (Past 12 Hours) Vital Signs Temp Pulse Pulse Resp BP Pulse Ox 06/07/19 11:25 36.9 C 76 18 118/75 99 06/07/19 08:11 36.7 C 93 H 18 126/71 100 06/07/19 08:00 95 H 06/07/19 04:02 99 H 160/92 H Laboratory Results Short CBC 06/07/19 Range/Units 03:05 WBC 7.44 (4.8-10.8) K/uL Hgb 9.6 L (12.0-16.0) g/dL Hct 32.2 L (37-47) % Plt Count 201 (130-400) K/uL BMP 06/07/19 03:05 Sodium 138 Potassium 3.5 Chloride 102 Carbon Dioxide 28 BUN 9 Creatinine 1.01 Glucose 200 H Calcium 9.4 Cardiac Enzymes 06/07/19 Range/Units 03:05 Troponin I 0.265 H* (0-0.045) ng/ml Liver Function 06/07/19 Range/Units 03:05 Total Bilirubin 0.5 (0.2-1) mg/dl AST 38 H (15-37) U/L ALT 29 (12-78) U/L Alkaline Phosphatase 69 (45-117) U/L Albumin 2.7 L (3.4-5.0) gm/dl Medications Administered Current Inpatient Medications Acetaminophen (Tylenol) 650 mg PO Q4H PRN PRN Reason: Pain or Fever Stop: 07/04/19 19:37 Last Admin: 06/05/19 13:12 Dose: 650 mg Documented by: Artificial Tears (Artificial Tears) 1 drops OP BID PRN PRN Reason: DRY EYES Stop: 07/07/19 04:27 Aspirin (Ecotrin Ectab) 81 mg PO QAM [facility] Stop: 07/07/19 08:59 Last Admin: 06/07/19 08:31 Dose: 81 mg Documented by: Atorvastatin Calcium (Lipitor) [facility] [place] Stop: 07/06/19 08:59 Last Admin: 06/07/19 08:30 Dose: 40 mg Documented by: Carvedilol (Coreg) 37.5 mg PO BID [facility] Stop: 07/07/19 20:59 Dextrose (Dextrose 50%) 25 - 50 ml IV UD PRN; Protocol PRN Reason: Hypoglycemia Protocol Stop: 07/04/19 19:37 Ferrous Sulfate (Feosol) 325 mg PO QAM [facility] Stop: 07/07/19 10:14 Last Admin: 06/07/19 10:54 Dose: 325 mg Documented by: Gabapentin (Neurontin) 800 mg PO TID [facility] Stop: 07/07/19 08:59 Last Admin: 06/07/19 13:38 Dose: 800 mg Documented by: Glucagon (Glucagen) 1 mg SQ UD PRN; Protocol PRN Reason: Hypoglycemia Protocol Stop: 07/04/19 19:37 Glucose (Dex4 Glucose) 4 - 8 tabs PO UD PRN; Protocol PRN Reason: Hypoglycemia Protocol Stop: 07/04/19 19:37 Glucose (Glucose 40%) 15 - 30 gm PO UD PRN; Protocol PRN Reason: Hypoglycemia Protocol Stop: 07/04/19 19:37 Guaifenesin (Mucinex) 600 mg PO Q12 [facility] Stop: 07/04/19 21:59 Last Admin: 06/07/19 08:31 Dose: 600 mg Documented by: Heparin Sodium/Dextrose (Heparin Sodium/Dextrose) 25,000 units in 500 mls @ 24 mls/hr IV .[id number] [facility]; Protocol Stop: 07/06/19 00:29 Last Titration: 06/07/19 07:15 Dose: 1,200 units/hr, 24 mls/hr Documented by: Insulin Aspart (Novolog Flexpen) 0 units SC ACHS [facility] Stop: 07/04/19 20:59 Last Admin: 06/07/19 12:33 Dose: 2 units Documented by: Isosorbide Mononitrate (Imdur Extended Rel) 30 mg PO [facility] Stop: 07/07/19 10:29 Last Admin: 06/07/19 10:54 Dose: 30 mg Documented by: Lisinopril (Zestril) 40 mg PO [facility] Stop: 07/06/19 08:59 Last Admin: 06/07/19 08:32 Dose: 40 mg Documented by: Lorazepam (Ativan) 0.5 mg PO BID PRN PRN Reason: Anxiety Stop: 07/07/19 03:24 Metoprolol Tartrate (Lopressor) 2.5 mg IV Q4 PRN PRN Reason: Hypertension Stop: 07/06/19 00:00 Last Admin: 06/07/19 02:25 Dose: 2.5 mg Documented by: Metronidazole (Metrogel) 1 appln TOP BID PRN PRN Reason: Rash Stop: 06/17/19 04:26 Miscellaneous (Carbohydrates For Hypoglycemia) 15 - 30 gm PO UD PRN PRN Reason: Hypoglycemia Protocol Stop: 07/04/19 19:37 Pantoprazole Sodium (Protonix) 40 [facility] [place] Stop: 07/05/19 08:59 Last Admin: 06/07/19 08:30 Dose: 40 mg Documented by: Phenazopyridine HCl (Pyridium) 200 mg PO Q8H PRN PRN Reason: pain Stop: 07/05/19 09:36
[2019-06-07] MEDS: HEPARIN SODIUM/DEXTROSE 25,000 UNITS/500 ML BAG IV SCH (17:31)
[2019-06-08 06:41] LABS: Partial Thromboplastin Ratio 1.9
[2019-06-08 06:43] LABS: Partial Thromboplastin Time 52.4 Seconds (21.0-31.0)
[2019-06-08] MEDS: INSULIN ASPART 100 UNITS/ML 3 ML PEN SC SCH ×4 (08:00→21:19)
[2019-06-08] MEDS: carvediloL 25 MG TAB PO SCH ×2 (08:01→21:10)
[2019-06-08] MEDS: guaiFENesin 600 MG TABCR PO SCH ×2 (08:01→21:10)
[2019-06-08] MEDS: GABAPENTIN 800 MG TAB PO SCH ×3 (08:01→21:10)
[2019-06-08] MEDS: ASPIRIN 81 MG ECTAB PO SCH (08:02)
[2019-06-08] MEDS: lisinopriL 40 MG TAB PO SCH (08:02)
[2019-06-08] MEDS: PANTOprazole 40 MG TAB PO SCH (08:02)
[2019-06-08] MEDS: ATORVASTATIN 40 MG TAB PO SCH (08:02)
[2019-06-08] MEDS: ISOSORBIDE MONO EXTENDED REL 30 MG TABCR PO SCH (08:02)
[2019-06-08] MEDS: FERROUS SULFATE 325 MG TAB PO SCH (08:02)
[2019-06-08 08:11] LABS: Albumin Level 2.3 gm/dl (3.4-5.0); BUN Creatinine Ratio 14.5 (10-20); Calcium 9.4 mg/dl (8.5-10.1); Creatinine Clr Calc Pharmacy 47.2 ml/min; Est GFR (African American) 58.7; Est GFR (Non-African American) 50.6; Potassium 3.9 mmol/L (3.5-5.1)
[2019-06-08 08:12] LABS: Hematocrit (blood only) 31.3 % (37-47); Hemoglobin 9.1 g/dL (12.0-16.0); Mean Corpuscular Hgb Conc 29.1 g/dL (32-36); Mean Corpuscular Volume 79.2 fL (80-100); Mean Platelet Volume 9.7 fL (7.4-10.4); Platelet Count 202 K/uL (130-400); RDW Coefficient of Variation 18.4 % (11.5-14.5); RDW Standard Deviation 53.9 fL (36.4-46.3); Red Blood Count 3.95 M/uL (4.2-5.4)
[2019-06-08 08:14] LABS: Albumin Globulin Ratio 0.5 (0.9-2); Bilirubin,Total 0.3 mg/dl (0.2-1); Globulin 4.6 gm/dl (2.5-4.0); Total Protein 6.9 gm/dl (6.4-8.2)
--- NOTE | 2019-06-08 13:41 | Cardiology Progress Note ---
Date of Service June 08, 2019 Assessment & Plan (1) NSTEMI (non-ST elevated myocardial infarction): Continue medication therapy, with aspirin, carvedilol 37.5 mg twice daily, isosorbide mononitrate 30 mg daily, lisinopril 40 mg daily, atorvastatin 40 mg daily. Discontinue unfractioned heparin infusion. Start subcutaneous Lovenox 30 mg daily for DVT prophylaxis tomorrow. Given her comorbidities of cognitive impairment, iron deficiency anemia, I recommend a trial of medical therapy for her presumed underlying coronary disease. (2) Diastolic dysfunction: Blood pressure and volume status much improved. (3) Iron deficiency anemia: Most recent hemoglobin stable. Continue oral iron replacement. Subjective CC: follow up chest pain, shortness of breath Subjective: Patient sitting in the bedside chair today. She is much more alert and conversant. She still does have some degree of cognitive impairment, and based on my discussion with her , she certainly does have some element of dementia. She apparently walked a little bit with therapy today and made it to the commode. No of recurrent angina or shortness of breath last night. Blood pressures which have been very high earlier this hospital stay have trended towards normalization. Review of Systems Review of Systems: All systems reviewed & are unremarkable except as noted in HPI & below Physical Exam Physical Exam: Temp Pulse Resp BP Pulse Ox 36.7 C 81 18 93/52 L 97 06/08/19 11:53 06/08/19 11:53 06/08/19 11:53 06/08/19 11:53 06/08/19 11:53 Constitutional: WD/WN, vitals as above Respiratory: normal respiratory effort, lungs clear to auscultation Cardiovascular: RRR, no murmur, no edema Gastrointestinal (Abdomen): normal bowel sounds, soft, nontender, no hepatosplenomegaly Neurologic: PERRL, EOMI, accommodation nl, no face palsy, no dysarthria Results & Data Vital Signs (Past 12 Hours) Vital Signs Temp Pulse Resp BP BP Pulse Ox Pulse Ox 06/08/19 11:53 36.7 C 81 18 93/52 L 97 06/08/19 11:25 99 06/08/19 07:42 36.9 C 79 18 142/78 H 100 06/08/19 04:05 36.5 C 88 19 119/65 99 Pulse Ox 06/08/19 11:53 06/08/19 11:25 95 06/08/19 07:42 06/08/19 04:05 Laboratory Results Cardiac Enzymes 06/08/19 Range/Units 06:06 AST 40 H (15-37) U/L Coagulation 06/08/19 Range/Units 06:06 APTT 52.4 H* (21.0-31.0) Seconds CBC 06/08/19 Range/Units 06:06 WBC 6.60 (4.8-10.8) K/uL RBC 3.95 L (4.2-5.4) M/uL Hgb 9.1 L (12.0-16.0) g/dL Hct 31.3 L (37-47) % Plt Count 202 (130-400) K/uL Comprehensive Metabolic Panel 06/08/19 Range/Units 06:06 Sodium 138 (136-145) mmol/L Potassium 3.9 (3.5-5.1) mmol/L Chloride 103 (98-107) mmol/L Carbon Dioxide 29 (21-32) mmol/L BUN 15 D (7-18) mg/dl Creatinine 1.06 (0.6-1.2) mg/dl Glucose 169 H (70-99) mg/dl Calcium 9.4 (8.5-10.1) mg/dl AST 40 H (15-37) U/L ALT 22 (12-78) U/L Alkaline Phosphatase 59 (45-117) U/L Total Protein 6.9 (6.4-8.2) gm/dl Albumin 2.3 L (3.4-5.0) gm/dl Intake and Output 06/07/19 06/08/19 06/08/19 22:59 06:59 14:59 Intake Total 478.0 / 1252.8 200 / 1252.8 Output Total 200 / 475 Balance 278.0 / 777.8 200 / 777.8 Intake: IV 278.0 / 452.8 HEPARIN SODIUM/DEXTROSE 25,000 278.0 / 352.8 units In 500 ml @ 1,200 UNITS/ HR 24 mls/hr IV .[id number] [facility] Rx #:[id number] Oral 200 / 800 200 / 800 Output: Urine Amount (Catheter) 200 / 475 Hernandez/Indwelling 200 / 475 Other: Weight 89.7 kg
--- NOTE | 2019-06-08 16:12 | Hospitalist Progress Note ---
Date of Service June 08, 2019 Assessment & Plan (1) NSTEMI (non-ST elevated myocardial infarction): Has had chest pain last night Noted to have pronounced ST-T changes 1 aVL and lateral leads Likely has NSTEMI with increasing troponin Has been on intravenous heparin and aspirin started this morning Await echo results: Study was technically difficult, LV apex was not well visualized, small sized anteroseptal wall motion abnormality with hypokinesis of the segments, LV systolic function is normal, LVEF was 50 to 55% and there is mild mitral regurgitation Appreciate cardiology input and recommendation No more chest pain as of last night Has a high risk for any procedure like cardiac cath and also high risk of getting any medications like Plavix Continue medication therapy, with aspirin, carvedilol 37.5 mg twice daily, isosorbide mononitrate 30 mg daily, lisinopril 40 mg daily, atorvastatin 40 mg daily. IV heparin has been discontinued Clinically much better today (2) Metabolic encephalopathy: Noted to have change in mental status while in the hospital Did not have any sepsis or other infection No significant other causes were found except gabapentin was on hold during admission due to extreme lethargy Clinically better now Her home medications have been restarted (3) Sepsis: Pt is 78 y/o F with PMH HTN, dyslipidemia, DM II, GERD, CKD III, diastolic dysfunction, LVH presented to ER with c/o weakness x 1 day.Recent cystoscopy and left ureteral stent 05/13/[address] Bone. On 05/26/2018 had cystoscopy, ureteroscopy, stent, basket retrieval ureteral stone. 05/26/2019 patient was given Keflex for 5-day course. Pt instructed self pull stent on 05/28/19 which reports did without difficulty CT HEAD: No acute intracranial findings CT ABD/PELVIS:1. No evidence of bowel obstruction. No evidence of free air. 2. Extensive pandiverticulosis. No evidence of acute diverticulitis. 3. Bilateral nephrolithiasis. 4. Mild left-sided hydronephrosis and left hydroureter with resolution of the previously identified perinephric infiltration. The previously identified distal left ureteral calculus is no longer visualized. The left-sided hydronephrosis may represent a residua from prior obstruction, or could be secondary to ureteral edema status post instrumentation. Clinical follow-up will be necessary. CXR: Cardiomegaly with no acute cardiopulmonary abnormality. Likely secondary to UTI Urine culture is not growing any organism likely due to receiving of antibiotic We will continue intravenous antibiotic for 3 days She is clinically a lot better and will get PT and OT evaluation Appreciate ID input and recommendation We will continue current antibiotic (4) Acute kidney injury superimposed on CKD: H/O CKD III. Baseline Cr ~0.9-1.0 Today BUN: 17, Cr: 1.7, GFR: 28 -IVF -Monitor renal functions -Hold lisinopril, metformin -Hold gabapentin for now, may consider resuming at renal dosing when appropriate -Avoid other nephrotoxic agents when possible -If no improvement consider nephrology consult -Her creatinine is improved to 1.25 as of 06/05 -Creatinine is normalized (5) Weakness: Pt with increased weakness, lethargy over past 24 hours. Reported 3 falls over past 24 hours with no known injury Probable secondary to underlying infection -Consider PT/OT when appropriate (6) Hypertension: Presented hypotensive which responded to IVF -Hold lisinopril, carvedilol at this time -Carvedilol has been started and will start lisinopril from tomorrow if kidney function is much better We will continue current dose of antihypertensives (7) Diabetes mellitus, type II: A1c: 7.6 on 05/19/19 -Hold metformin -Novolog sliding scale per protocol -Monitor BSGs (8) Anemia: Chronic anemia. Baseline Hgb~ 9-10 Hgb: 9. No signs of bleeding Hemoglobin is dropped to 8.3 as of 06/06 In part could be due to dilation We will check a stool for occult blood Iron studies-iron level has been low Started with oral iron supplement Hemoglobin is more than 9 as of 06/07 (9) Diastolic dysfunction: 2016 echo with EF: 60%, grade 1 diastolic dysfunction, LVF At this time appears dehydrated Noted to have mild CHF on chest x-ray She received 1 dose of 40 mg Lasix intravenously and diuresed enough -Received another dose of Lasix last night -Feeling better since this morning (10) GERD (gastroesophageal reflux disease): -Continue PPI (11) Dyslipidemia: -Hold statin for now DVT Prophylaxis -Heparin SQ Full Code as per discussion with pt's and recent discussion with pt on recent admission earlier this month Follows with Dr House for routine care Subjective 06/04 The patient was seen and examined in emergency room in presence of the and the daughter She is pleasantly confused and was brought in with extreme weakness and tiredness and recurrent falls Likely has complicated UTI 06/05 The patient was seen and examined in telemetry unit She is out of bed on a chair and has been feeling a lot better Her confusion is improved She denies any acute symptoms except weakness 06/06 Patient was seen and examined in telemetry unit She has had chest pain last night and noted to have EKG changes with increased troponin and was started on intravenous heparin She has been feeling a lot better today and her confusion is improved Noted to have mild CHF and chest x-ray Denies any chest pain and/or palpitation, no shortness of breath at rest, no abdominal pain, nausea no vomiting 06/07 The patient was seen and examined in presence of the She has had chest pain last night and received 1 dose of intravenous Lasix for shortness of breath She remains very weak and lethargic She goes back to sleep after the brief period of communication She is not in any acute distress and denies any chest pain and/or palpitation 06/10 The patient was seen and examined in telemetry unit She has been much better today Mentally almost clear Generalized weakness but denies any other symptoms Review of Systems Review of Systems: All systems reviewed and are unremarkable except as noted below Neurologic: Generally weak and lethargic. Remains pleasantly confused and goes to sleep almost immediately after a brief period of communication with the provider or anybody else Physical Exam Physical Exam: Lying in the bed without any acute symptoms Constitutional: well developed, well nourished, + ill appearing and + obese; no acute distress Eyes: PERRL, conjunctivae normal, anicteric sclerae ENMT: external ear and nose normal, oropharynx normal Neck: trachea midline, no thyromegaly Respiratory: normal respiratory effort; no respiratory distress Auscultation: + crackles (At the bases) Cardiovascular: Rate/Rhythm: regular rate and regular rhythm Heart Sounds: no murmur Extremities: + edema (Trace bilaterally) Gastrointestinal (Abdomen): Inspection/Auscultation: abdomen normal to insp ection and normal bowel sounds Percussion/Palpation: abdomen soft; abdomen nontender Musculoskeletal: No acute arthritis in any joints Neurologic: moves all extremities; no focal motor deficits Alert, awake. Pleasantly confused-confusion is much improved compared with yesterday 06/07 Lymphatic: no cervical or axillary lymphadenopathy Results & Data Vital Signs (Past 12 Hours) Vital Signs Temp Pulse Resp BP BP Pulse Ox Pulse Ox 06/08/19 15:28 36.4 C L 83 19 109/67 97 06/08/19 11:53 36.7 C 81 18 93/52 L 97 06/08/19 11:25 99 06/08/19 07:42 36.9 C 79 18 142/78 H 100 Pulse Ox 06/08/19 15:28 06/08/19 11:53 06/08/19 11:25 95 06/08/19 07:42
[2019-06-08] MEDS: ACETAMINOPHEN 325 MG TAB PO PRN (17:24)
[2019-06-09] MEDS: ACETAMINOPHEN 325 MG TAB PO PRN ×2 (04:59→17:29)
[2019-06-09] MEDS: ATORVASTATIN 40 MG TAB PO SCH (08:24)
[2019-06-09] MEDS: guaiFENesin 600 MG TABCR PO SCH ×2 (08:24→22:12)
[2019-06-09] MEDS: lisinopriL 40 MG TAB PO SCH (08:24)
[2019-06-09] MEDS: ASPIRIN 81 MG ECTAB PO SCH (08:24)
[2019-06-09] MEDS: carvediloL 25 MG TAB PO SCH ×2 (08:24→22:12)
[2019-06-09] MEDS: GABAPENTIN 800 MG TAB PO SCH ×3 (08:24→22:12)
[2019-06-09] MEDS: FERROUS SULFATE 325 MG TAB PO SCH (08:24)
[2019-06-09] MEDS: PANTOprazole 40 MG TAB PO SCH (08:24)
[2019-06-09] MEDS: ISOSORBIDE MONO EXTENDED REL 30 MG TABCR PO SCH (08:25)
[2019-06-09] MEDS: ENOXAPARIN INJ 30 MG/0.3 ML SYR SQ SCH (08:25)
[2019-06-09] MEDS: INSULIN ASPART 100 UNITS/ML 3 ML PEN SC SCH ×4 (08:36→22:12)
--- NOTE | 2019-06-09 10:48 | Cardiology Progress Note ---
Date of Service June 09, 2019 Assessment & Plan (1) NSTEMI (non-ST elevated myocardial infarction): Present the patient has recurrent angina and more prominent EKG changes. She been placed back into bed and her blood pressure has improved with the most recent systolic reading in the range of 139 mmHg. She is more lethargic than when she was yesterday. I have requested stat blood work including a CBC, CMP, and troponin level. I called and discussed her change in condition with her , Juan Jose, I recommended that he comes to the hospital since possible because they believe the patient would benefit from invasive coronary angiography given her waxing and waning anginal symptoms since 06/04. Unfractioned heparin had been discontinued yesterday. Her mental status was quite good yesterday with noted baseline cognitive impairment related to mild dementia. At this time, it appea rs that her lethargy is associated with worsening angina. I discussed her case with Dr Vo, and will plan on cardiac catheterization this am. Subjective Chief complaint: Chest pain, hypertension Subjective: Patient assessed per the request of her nurse. This morning her blood pressure was elevated at 193/93 she received her morning medications. Then she was sitting in the bedside chair and felt poorly. She became lethargic, and her repeat blood pressure included a blood pressure in the 70 mmHg range. She was moved back into bed and she described chest pressure. An EKG revealed diffuse T wave inversions especially in the precordial leads that are more prominent than that performed 2 days ago. Review of Systems Review of Systems: Unobtainable due to reduced consciousness Physical Exam Physical Exam: Temp Pulse Resp BP Pulse Ox 36.6 C 90 18 193/93 H 94 06/09/19 07:50 06/09/19 07:50 06/09/19 07:50 06/09/19 07:50 06/09/19 07:50 Constitutional: + ill appearing Respiratory: normal respiratory effort, lungs clear to auscultation Cardiovascular: RRR, no murmur, no edema Gastrointestinal (Abdomen): normal bowel sounds, soft, nontender, no hepatosplenomegaly Neurologic: PERRL, EOMI, accommodation nl, no face palsy, no dysarthria Lethargic, without focal mental status changes Results & Data Vital Signs (Past 12 Hours) Vital Signs Temp Pulse Resp BP Pulse Ox 06/09/19 07:50 36.6 C 90 18 193/93 H 94 06/09/19 04:17 159/78 H 06/09/19 03:41 36.8 C 98 H 20 170/83 H 95 06/08/19 23:59 36.7 C 85 19 142/74 H 94
[2019-06-09] MEDS ORDERED: NiCARDipine HCL INJ 2.5 MG/ML 10 ML AMP ONE (10:51)
[2019-06-09] MEDS ORDERED: HEPARIN (PORCINE) 1000 UNIT/ML 10 ML (CATH LAB USE ONLY) ONE (10:51)
[2019-06-09] MEDS ORDERED: fentaNYL citrate 100 MCG/2 ML VIAL ONE (10:52)
[2019-06-09] MEDS ORDERED: NITROGLYCERIN/D5W 100MCG/ML 20ML SYR ONE (10:52)
[2019-06-09] MEDS ORDERED: MIDAZOLAM HCL 1 MG/ML 2ML VIAL ONE (10:52)
[2019-06-09 11:09] LABS: Basophils # (auto) 0.04 K/uL (0-0.2); Basophils % (auto) 0.6 %; Eosinophils # (auto) 0.17 K/uL (0-0.5); Eosinophils % (auto) 2.8 %; Immature Granulocytes # (auto) 0.05 K/uL (0.00-0.02); Immature Granulocytes % (auto) 0.8 %; Lymphocytes # (auto) 1.47 K/uL (1.2-3.4); Lymphocytes % (auto) 23.9 %; Mean Corpuscular Volume 79.1 fL (80-100); Mean Platelet Volume 9.3 fL (7.4-10.4); Monocytes # (auto) 0.87 K/uL (0.11-0.59); Monocytes % (auto) 14.1 %; Neutrophils # (auto) 3.56 K/uL (1.4-6.5); Neutrophils % (auto) 57.8 %; Platelet Count 202 K/uL (130-400); RDW Coefficient of Variation 18.2 % (11.5-14.5); RDW Standard Deviation 52.8 fL (36.4-46.3); Red Blood Count 3.92 M/uL (4.2-5.4); White Blood Count 6.16 K/uL (4.8-10.8)
--- NOTE | 2019-06-09 12:06 | Pre Anesthesia Assessment ---
Date of Service June 09, 2019 Pre Sedation Assessment Vital Signs Temp Pulse Resp BP BP Pulse Ox 06/09/19 07:50 97.9 F 90 18 193/93 H 94 06/09/19 04:17 159/78 H 06/09/19 03:41 98.2 F 98 H 20 170/83 H 95 06/08/19 23:59 98.1 F 85 19 142/74 H 94 06/08/19 19:57 97.7 F 81 20 147/82 H 97 06/08/19 15:28 97.5 F L 83 19 109/67 97 Cardiovascular RRR, no murmur, no edema Respiratory normal respiratory effort, lungs clear to auscultation Pre-Sedation Airway Assessment Smoking Status: Former smoker Hx Sleep Apnea: No Hx Difficult Intubation: No Short, Thick Neck: No Thyromental Distance: > or= 3.5 Finger Breadths Oral Cavity: + WNL Mallampati Class: III ASA: ASA3 NPO Status Date of Last Intake of Fluids: 06/08/19 Time of Last Intake of Fluids: 23:00 Date of Last Intake of Solid Food: 06/08/19 Time of Last Intake of Solid Foods: 23:00 Procedure Planning Contraindications for Sedation: none Current Medications Reviewed: Yes Notes The planned sedation has been discussed with the patient. Informed Consent was obtained. I have identified the patient, determined the appropriateness of sedation and have assessed the patient immediately prior to the procedure. All medicine(s) and interventions are by my order.
--- NOTE | 2019-06-09 12:08 | Post Anesthesia Assessment ---
Date of Service June 09, 2019 Post Sedation Assessment Vital Signs Temp Pulse Resp BP BP Pulse Ox 06/09/19 07:50 97.9 F 90 18 193/93 H 94 06/09/19 04:17 159/78 H 06/09/19 03:41 98.2 F 98 H 20 170/83 H 95 06/08/19 23:59 98.1 F 85 19 142/74 H 94 06/08/19 19:57 97.7 F 81 20 147/82 H 97 06/08/19 15:28 97.5 F L 83 19 109/67 97 Recovery Score Activity: Moves 4 extremities Respiration: Deep Breath/Cough Circulation: +/-20% PreAnes Value Consciousness: Fully Awake Oxygen Saturation: O2 needed for >90% Discharge Sedation Level of Care: Fast Track Phase II Post Sedation Plan On clinical assessment, the patient appears to have tolerated the sedation without complications. Patient is recovering as anticipated. Patient will continue to be monitored by nursing and may be discharged when sedation discharge criteria are met per below protocol. Upon Completions of procedure up to 15 minutes continue every 5 minute vital signs and the P.A.R. score; then discharge to a Phase I or Fast Track to Phase II per the following guidelines: * Discharge Patient to appropriate Phase II area if PAR is 8 or greater or return to pre- procedure baseline. The post - procedure orders will be as directed. * If PAR score is less than 8 or not return to pre-procedure baseline then patient will follow Phase I monitoring till PAR is reached for Phase II. The Phase I may be done in procedure room or may call to secure a Phase I area. * If naloxone or flumazenil are used for reversal, hold in Phase I for continued monitoring from when last reversal dose was given for a minimum of 60 minutes or longer pending the nurse and/or physician discretion of patient condition before discharge to Phase II. Please call the Sedation Physician to re-evaluate and complete post-note for discharge to Phase II area. Do NOT discharge from procedure sedation or Phase 1 until post- sedation evaluation note is complete by procedure /sedation MD Sedation Discharge Instructions to be given to the patient at discharge to home.
--- NOTE | 2019-06-09 12:14 | Cardiac Catheterization ---
[facility] Data: Policy Value Calculator Cardiac Status Clinical evaluation leading to the procedure CAD Presenation: Non STEMI Anginal Classification: CCS IV Heart Failure: No Cardiogenic Shock within 24 Hours: No Cardiac Arrest within 24 Hours: No Imaging Studies Past 6 Months: Yes Stress Studies Past 6 Months: No Diagnostic Physicians Name: Palomo Vo MD Status: Elective Closure Device Percutaneous Entry Location: Radial Closure Device: Radial Band Recommendations: Medical Therapy and/or Counseling Intraprocedure Events Significant Disection: No Perforation: No Cardiac Cath Procedure Full Procedure Date June 09, 2019 Pre-Procedure Diagnosis Pre-Procedure Diagnosis: Non STEMI AUC Score AUC Score: 7 Post-Procedure Diagnosis Post-Procedure Diagnosis: Normal Coronary Arteries and Elevated Intracardiac Pressures Procedure(s) Performed Procedure(s) Performed: Coronary Angiography and Left Heart Cath Auto Technician Palomo Vo MD Rehabilitation Case Coordinator(s) paulino Estimated Blood Loss Estimated Blood Loss: 5 Medication(s) Medication(s): Fentanyl, Heparin, Lidocaine 1%, Nicardipine, Nitroglycerin and Versed Summary of Findings Indication: Suspected ACS Access: 6 Fr slender right radial Catheters: [place] Findings: LM -Short, large caliber, no significant disease LAD -large caliber vessel, proximal luminal irregularities, wraps around apex. Gives off small diagonals without significant disease Circumflex -large caliber vessel, angiographically normal RCA -moderate caliber, dominant, angiographically normal LVEDP -20 Arterial Closure: TR band Summary: 1. Essentially normal coronary arteries 2. Elevated intracardiac filling pressure Recommendations: Continued ASCVD risk factor modification per Dr. Paige Hemodynamics Rest Ao:: 120/56/90 Final Ao: 149/61/91 LV: 145/20 Recommendations Recommendations: Medical Therapy and/or Counseling Specimens Specimens: None Radiation Exposure (mGy) 811 Contrast (mls) 40 Fluids (cc crystalloids) Fluids (cc crystalloids): 33 Drains Drains: None Anesthesia Moderate Procedural Complication(s) None Disposition PCU I attest to the content of the Intraoperative Record and any orders documented therein. Any exceptions are noted below. [facility] Card Cath Procedure Codes Cardiac Catheterization Procedure 1: Cardiovascular Cath Procedures: 13287 Coronaries and LHC (+/-LV) Moderate Sedation Procedure 1: Sedation/Anesthesia: 91470 Mod Sedation by the same physician;Init15 Min Child Age 5 & Up PG Care Time/CCT Total # of Minutes Spent Total Time Spent with Patient: Total time spent is greater than 50% in coordination of care (as documented) at patient's floor/unit and/or counseling patient:
[2019-06-09] MEDS ORDERED: SODIUM CHLORIDE 0.9% 1000ML 1,000 ML IV SCH (12:15)
--- NOTE | 2019-06-09 13:28 | Communication Note ---
Date of Service: June 09, 2019 Pt reassessed post cath. Mental status stable. Normal cath. Will DC IV fluids givne pt being prone to diastolic HF. Cancel troponin levels. Check CBC, CMP in am 12/5.
--- NOTE | 2019-06-09 21:15 | Hospitalist Progress Note ---
Date of Service June 09, 2019 Assessment & Plan (1) NSTEMI (non-ST elevated myocardial infarction): Hx of chest pain Noted to have pronounced ST-T changes 1 aVL and lateral leads NSTEMI with increasing troponin Has been on intravenous heparin and aspirin Echo results: Study was technically difficult, LV apex was not well visualized, small sized anteroseptal wall motion abnormality with hypokinesis of the segments, LV systolic function is normal, LVEF was 50 to 55% and there is mild m itral regurgitation Appreciate cardiology input and recommendation Continue medication therapy, with aspirin, carvedilol 37.5 mg twice daily, isosorbide mononitrate 30 mg daily, lisinopril 40 mg daily, atorvastatin 40 mg daily. IV heparin has been discontinued, lovenox started Patient was hypertensive (SBP 190s) this morning (06/09), then received her cardiac medications and became profoundly hypotensive. She also complained about some left sided chest pain earlier. EKG showed T wave inversions in precordial leads, more prominent than previous EKG 2 days ago. Evaluated by cardiology, underwent cardiac cath (06/09), results, essentially normal cardiac arteries. Coreg decreased to 25mg twice daily We will continue to closely monitor (2) Metabolic encephalopathy: Noted to have change in mental status while in the hospital Did not have any sepsis or other infection No significant other causes were found except gabapentin was on hold during admi ssion due to extreme lethargy Clinically better now Her home medications have been restarted (3) Sepsis: Pt is 78 y/o F with PMH HTN, dyslipidemia, DM II, GERD, CKD III, diastolic dysfunction, LVH presented to ER with c/o weakness x 1 day.Recent cystoscopy and left ureteral stent 05/13/[address] Bone. On 05/26/2018 had cystoscopy, ureteroscopy, stent, basket retrieval ureteral stone. 05/26/2019 patient was given Keflex for 5-day course. Pt instructed self pull stent on 05/28/19 which reports did without difficulty CT HEAD: No acute intracranial findings CT ABD/PELVIS:1. No evidence of bowel obstruction. No evidence of free air. 2. Extensive pandiverticulosis. No evidence of acute diverticulitis. 3. Bilateral nephrolithiasis. 4. Mild left-sided hydronephrosis and left hydroureter with resolution of the previously identified perinephric infiltration. The previously identified distal left ureteral calculus is no longer visualized. The left-sided hydronephrosis may represent a residua from prior obstruction, or could be secondary to ureteral edema status post instrumentation. Clinical follow-up will be necessary. CXR: Cardiomegaly with no acute cardiopulmonary abnormality. Likely secondary to UTI Urine culture is not growing any organism likely due to receiving of antibiotic Finished intravenous antibiotic (zosyn) for 3 days, per ID recommendation (4) Acute kidney injury superimposed on CKD: H/O CKD III. Baseline Cr ~0.9-1.0 Cr 1.06 on 06/08 (1.03 on 06/06), normalized -IVF -Monitor renal functions -Hold lisinopril, metformin -Hold gabapentin for now, may consider resuming at renal dosing when appropriate -Avoid other nephrotoxic agents when possible -If no improvement consider nephrology consult -Creatinine is normalized, will cont. to monitor (5) Weakness: Pt with increased weakness, lethargy over past 24 hours. Reported 3 falls over past 24 hours with no known injury Probable secondary to underlying infection -Consider PT/OT when appropriate (6) Hypertension: Presented hypotensive which responded to IVF -Carvedilol has been started (managed by cardiology) -Lisinopril was restarted on June 06, will decrease the dose to half, 20 mg for tomorrow, if creatinine still normal (pt underwent cardiac cath today 06/09) we will give the full dose of 40 mg We will continue current dose of antihypertensives (7) Diabetes mellitus, type II: A1c: 7.6 on 05/19/19 -Hold metformin -Novolog sliding scale per protocol -Monitor BSGs (8) Anemia: Chronic anemia. Baseline Hgb~ 9-10 Hgb: 9. No signs of bleeding Hemoglobin is dropped to 8.3 as of 06/06 In part could be due to dilation We will check a stool for occult blood Iron studies-iron level has been low Started with oral iron supplement Hemoglobin is more than 9 as of 06/07 (9) Diastolic dysfunction: 2016 echo with EF: 60%, grade 1 diastolic dysfunction, LVF On admission appeared dehydrated Noted to have mild CHF on chest x-ray She received 1 dose of 40 mg Lasix intravenously and diuresed enough -then received another dose of Lasix (10) GERD (gastroesophageal reflux disease): -Continue PPI (11) Dyslipidemia: -Hold statin for now DVT Prophylaxis -Heparin SQ Full Code as per discussion with pt's and recent discussion with pt on recent admission earlier this month Follows with Dr House for routine care Subjective Patient examined at the bedside, this morning, after being called by patient's nurse that patient became hypotensive, after receiving her heart medications. Her systolic blood pressure was initially about 190 this morning, then she received her cardiac medications and became profoundly hypotensive, with systolic blood pressure in the 70s. Patient is now laying flat, with her legs elevated, alert and oriented x3, denies any chest pain however per nurse, she previously complained of pain at her left breast area. Currently she also denies any shortness of breath, nausea, vomiting, headache, dizziness. She says that she is only uncomfortable due to the position in the bed. Patient does appear pale. 500cc bolus of NS ordered Her Coreg was recently increased, history of NSTEMI, managed medically. EKG obtained this morning, showing some T wave inversions in precordial leads. Patient then evaluated by cardiology, and underwent cardiac cath. Summary: 1. Essentially normal coronary arteries 2. Elevated intracardiac filling pressure Review of Systems Review of Systems: All systems reviewed & are unremarkable except as noted in HPI & below Constitutional: no fever and no chills Respiratory: no cough, no dyspnea and no pain on inspiration Cardiovascular: + chest pain (on and off (L-sided)); no dyspnea at rest, no dyspnea on exertion, no palpitations and no edema Gastrointestinal: no abdominal pain, no nausea and no vomiting Physical Exam Physical Exam: Physical Exam: Lying in the bed, legs elevated d/t hypotension, alert and oriented Constitutional: well developed, well nourished, + ill / pale appearing Eyes: PERRL, EOMI, normal, anicteric sclerae ENMT: external ear and nose normal, oropharynx normal Neck: supple Respiratory: normal respiratory effort; no respiratory distress Auscu ltation: clear to auscult., no wheezes Cardiovascular: Rate/Rhythm: regular rate and regular rhythm Heart Sounds: no murmur Extremities: + edema (Trace bilaterally) Gastrointestinal (Abdomen): Inspection/Auscultation: abdomen normal to inspection and normal bowel sounds Percussion/Palpation: abdomen soft; abdomen nontender Musculoskeletal: No acute arthritis in any joints Neurologic: moves all extremities; no focal motor deficits, Alert and oriented, answers questions appropriately Lymphatic: no cervical or axillary lymphadenopathy Results & Data Vital Signs (Past 12 Hours) Vital Signs Temp Pulse Pulse Resp BP Pulse Ox 06/09/19 19:13 36.7 C 75 16 131/66 98 06/09/19 17:48 84 06/09/19 16:48 65 06/09/19 15:48 89 20 157/68 H 98 06/09/19 15:41 36.9 C 76 20 124/68 96 06/09/19 14:48 36.8 C 75 20 127/64 98 06/09/19 13:48 36.8 C 86 20 129/75 98 06/09/19 13:18 36.8 C 68 18 127/69 98 06/09/19 12:48 36.5 C 68 68 20 137/68 98 06/09/19 12:33 36.5 C 65 65 20 137/64 97 06/09/19 12:15 82 20 131/68 93 06/09/19 12:10 82 20 143/72 H 94 06/09/19 12:05 82 20 138/65 94 06/09/19 12:00 82 20 140/68 94 Laboratory Results 06/09/19 06/09/19 06/09/19 Range/Units 20:23 16:08 11:00 WBC (4.8-10.8) K/uL RBC (4.2-5.4) M/uL Hgb (12.0-16.0) g/dL Hct (37-47) % MCV (80-100) fL MCH (25-34) pg MCHC (32-36) g/dL RDW Std Deviation (36.4-46.3) fL RDW Coeff of Pia (11.5-14.5) % Plt Count (130-400) K/uL MPV (7.4-10.4) fL Immature Gran % (Auto) % Neut % (Auto) % Lymph % (Auto) % [place] % (Auto) % Eos % (Auto) % Baso % (Auto) % Immature Gran # (Auto) (0.00-0.02) K/uL Neut # (Auto) (1.4-6.5) K/uL Lymph # (Auto) (1.2-3.4) K/uL [place] # (Auto) (0.11-0.59) K/uL Eos # (Auto) (0-0.5) K/uL Baso # (Auto) (0-0.2) K/uL POC Glucose 252 H 226 H (70-99) Troponin I 0.035 (0-0.045) ng/ml 06/09/19 06/09/19 06/09/19 Range/Units 11:00 09:49 08:31 WBC 6.16 (4.8-10.8) K/uL RBC 3.92 L (4.2-5.4) M/uL Hgb 9.0 L (12.0-16.0) g/dL Hct 31.0 L (37-47) % MCV 79.1 L (80-100) fL MCH 23.0 L (25-34) pg MCHC 29.0 L (32-36) g/dL RDW Std Deviation 52.8 H (36.4-46.3) fL RDW Coeff of Pia 18.2 H (11.5-14.5) % Plt Count 202 (130-400) K/uL MPV 9.3 (7.4-10.4) fL Immature Gran % (Auto) 0.8 % Neut % (Auto) 57.8 % Lymph % (Auto) 23.9 % [place] % (Auto) 14.1 % Eos % (Auto) 2.8 % Baso % (Auto) 0.6 % Immature Gran # (Auto) 0.05 H (0.00-0.02) K/uL Neut # (Auto) 3.56 (1.4-6.5) K/uL Lymph # (Auto) 1.47 (1.2-3.4) K/uL [place] # (Auto) 0.87 H (0.11-0.59) K/uL Eos # (Auto) 0.17 (0-0.5) K/uL Baso # (Auto) 0.04 (0-0.2) K/uL POC Glucose 273 H 283 H (70-99) Troponin I (0-0.045) ng/ml 06/08/19 Range/Units 21:17 WBC (4.8-10.8) K/uL RBC (4.2-5.4) M/uL Hgb (12.0-16.0) g/dL Hct (37-47) % MCV (80-100) fL MCH (25-34) pg MCHC (32-36) g/dL RDW Std Deviation (36.4-46.3) fL RDW Coeff of Pia (11.5-14.5) % Plt Count (130-400) K/uL MPV (7.4-10.4) fL Immature Gran % (Auto) % Neut % (Auto) % Lymph % (Auto) % [place] % (Auto) % Eos % (Auto) % Baso % (Auto) % Immature Gran # (Auto) (0.00-0.02) K/uL Neut # (Auto) (1.4-6.5) K/uL Lymph # (Auto) (1.2-3.4) K/uL [place] # (Auto) (0.11-0.59) K/uL Eos # (Auto) (0-0.5) K/uL Baso # (Auto) (0-0.2) K/uL POC Glucose 169 H (70-99) Troponin I (0-0.045) ng/ml Medications Administered Current Inpatient Medications Acetaminophen (Tylenol) 650 mg PO Q4H PRN PRN Reason: Pain or Fever Stop: 07/04/19 19:37 Last Admin: 06/09/19 17:29 Dose: 650 mg Documented by: Artificial Tears (Artificial Tears) 1 drops OP BID PRN PRN Reason: DRY EYES Stop: 07/07/19 04:27 Aspirin ([facility]ab) [facility] [place]: 07/07/19 08:59 Last Admin: 06/09/19 08:24 Dose: 81 mg Documented by: Atorvastatin Calcium (Lipitor) 40 mg PO QAM [facility] Stop: 07/06/19 08:59 Last Admin: 06/09/19 08:24 Dose: 40 mg Documented by: Carvedilol (Coreg) 25 mg PO BID [facility] Stop: 07/09/19 20:59 Dextrose (Dextrose 50%) 25 - 50 ml IV UD PRN; Protocol PRN Reason: Hypoglycemia Protocol Stop: 07/04/19 19:37 Enoxaparin Sodium (Lovenox) [facility] Stop: 07/09/19 08:59 Last Admin: 06/09/19 08:25 Dose: 30 mg Documented by: Ferrous Sulfate (Feosol) 325 mg PO QAM [facility] Stop: 07/07/19 10:14 Last Admin: 06/09/19 08:24 Dose: 325 mg Documented by: Gabapentin (Neurontin) 800 mg PO TID [facility] Stop: 07/07/19 08:59 Last Admin: 06/09/19 13:56 Dose: 800 mg Documented by: Glucagon (Glucagen) 1 mg SQ UD PRN; Protocol PRN Reason: Hypoglycemia Protocol Stop: 07/04/19 19:37 Glucose (Dex4 Glucose) 4 - 8 tabs PO UD PRN; Protocol PRN Reason: Hypoglycemia Protocol Stop: 07/04/19 19:37 Glucose (Glucose 40%) 15 - 30 gm PO UD PRN; Protocol PRN Reason: Hypoglycemia Protocol Stop: 07/04/19 19:37 Guaifenesin (Mucinex) 600 mg PO Q12 [facility] Stop: 07/04/19 21:59 Last Admin: 06/09/19 08:24 Dose: 600 mg Documented by: Insulin Aspart (Novolog Flexpen) 0 units SC [facility] Stop: 07/04/19 20:59 Last Admin: 06/09/19 17:16 Dose: 6 units Documented by: Isosorbide Mononitrate (Imdur Extended Rel) 30 mg PO [facility] Stop: 07/07/19 10:29 Last Admin: 06/09/19 08:25 Dose: 30 mg Documented by: Lisinopril (Zestril) 40 mg PO [facility] Stop: 07/06/19 08:59 Last Admin: 06/09/19 08:24 Dose: 40 mg Documented by: Lorazepam (Ativan) 0.5 mg PO BID PRN PRN Reason: Anxiety Stop: 07/07/19 03:24 Metoprolol Tartrate (Lopressor) 2.5 mg IV Q4 PRN PRN Reason: Hypertension Stop: 07/06/19 00:00 Last Admin: 06/07/19 02:25 Dose: 2.5 mg Documented by: Metronidazole (Metrogel) 1 appln TOP BID PRN PRN Reason: Rash Stop: 06/17/19 04:26 Miscellaneous (Carbohydrates For Hypoglycemia) 15 - 30 gm PO UD PRN PRN Reason: Hypoglycemia Protocol Stop: 07/04/19 19:37 Pantoprazole Sodium (Protonix) 40 mg PO QAM [facility] Stop: 07/05/19 08:59 Last Admin: 06/09/19 08:24 Dose: 40 mg Documented by: Phenazopyridine HCl (Pyridium) 200 mg PO Q8H PRN PRN Reason: pain Stop: 07/05/19 09:36
[2019-06-10 05:53] LABS: Basophils # (auto) 0.03 K/uL (0-0.2); Basophils % (auto) 0.4 %; Eosinophils # (auto) 0.25 K/uL (0-0.5); Eosinophils % (auto) 3.7 %; Hematocrit (blood only) 31.7 % (37-47); Hemoglobin 9.3 g/dL (12.0-16.0); Immature Granulocytes # (auto) 0.07 K/uL (0.00-0.02); Lymphocytes # (auto) 1.64 K/uL (1.2-3.4); Lymphocytes % (auto) 24.1 %; Mean Corpuscular Hemoglobin 23.4 pg (25-34); Mean Corpuscular Hgb Conc 29.3 g/dL (32-36); Mean Corpuscular Volume 79.6 fL (80-100); Mean Platelet Volume 9.1 fL (7.4-10.4); Monocytes # (auto) 0.73 K/uL (0.11-0.59); Monocytes % (auto) 10.7 %; Neutrophils # (auto) 4.09 K/uL (1.4-6.5); Neutrophils % (auto) 60.1 %; Platelet Count 227 K/uL (130-400); RDW Coefficient of Variation 18.1 % (11.5-14.5); RDW Standard Deviation 53.3 fL (36.4-46.3); Red Blood Count 3.98 M/uL (4.2-5.4); White Blood Count 6.81 K/uL (4.8-10.8)
[2019-06-10 06:31] LABS: Albumin Level 2.3 gm/dl (3.4-5.0); BUN Creatinine Ratio 16.7 (10-20); Calcium 9.7 mg/dl (8.5-10.1); Creatinine Clr Calc Pharmacy 49.7 ml/min; Est GFR (African American) 62.9; Est GFR (Non-African American) 54.3
[2019-06-10 06:33] LABS: Albumin Globulin Ratio 0.5 (0.9-2); Bilirubin,Total 0.3 mg/dl (0.2-1); Globulin 5.1 gm/dl (2.5-4.0); Total Protein 7.4 gm/dl (6.4-8.2)
[2019-06-10] MEDS: ISOSORBIDE MONO EXTENDED REL 30 MG TABCR PO SCH (08:20)
[2019-06-10] MEDS: PANTOprazole 40 MG TAB PO SCH (08:20)
[2019-06-10] MEDS: guaiFENesin 600 MG TABCR PO SCH ×2 (08:20→21:19)
[2019-06-10] MEDS: ATORVASTATIN 40 MG TAB PO SCH (08:21)
[2019-06-10] MEDS: FERROUS SULFATE 325 MG TAB PO SCH (08:21)
[2019-06-10] MEDS: ENOXAPARIN INJ 30 MG/0.3 ML SYR SQ SCH (08:21)
[2019-06-10] MEDS: ASPIRIN 81 MG ECTAB PO SCH (08:21)
[2019-06-10] MEDS: GABAPENTIN 800 MG TAB PO SCH ×3 (08:21→21:19)
[2019-06-10] MEDS: INSULIN ASPART 100 UNITS/ML 3 ML PEN SC SCH ×4 (08:21→21:13)
[2019-06-10] MEDS: carvediloL 25 MG TAB PO SCH ×2 (08:21→21:19)
[2019-06-10] MEDS ORDERED: lisinopriL 20 MG TAB PO SCH (09:00)
--- NOTE | 2019-06-10 09:10 | Cardiology Progress Note ---
Date of Service June 10, 2019 Assessment & Plan (1) NSTEMI (non-ST elevated myocardial infarction): Likely due to volume overload, no coronary culprit. Given clinical diastolic dysfunction , need to be caution with fluid administration. Euvolemic at present. (2) Hypertension: BP improved.Coreg dose of 37.5 mg BID was reduced back to her [employer] dose of 25 mg BID, BP OK so far without significant highs or lows overnight. (3) Iron deficiency anemia: Continue oral iron, Hgb stable. (4) Dysarthria: Continue ASA. MRI of brain today for stroke work up. Given waxing and waning mental status and dysarthria, these symptoms were present prior to cardiac cath. DVT prophylaxis: SQ lovenox. Subjective CC: follow up chest pain, shortness of breath,dysarthria Subjective: Pt denies chest pain. SR in the 70-80 bpm range noted on telemetry. Hgb and renal function stable. Awake and alert. Positive dysarthria. Review of Systems Review of Systems: All systems reviewed & are unremarkable except as noted in HPI & below Cardiovascular: no dyspnea, no palpitations, no syncope and no edema Neurologic: + abnormal speech (dysarthria) and + confusion; no paralysis, no numbness and no paresthesia Physical Exam Physical Exam: Temp Pulse Resp BP Pulse Ox 37.2 C 87 16 156/88 H 95 06/10/19 07:30 06/10/19 07:30 06/10/19 07:30 06/10/19 07:30 06/10/19 07:30 Constitutional: WD/WN, vitals as above Respiratory: normal respiratory effort, lungs clear to auscultation Cardiovascular: RRR, no murmur, no edema Gastrointestinal (Abdomen): normal bowel sounds, soft, nontender, no hepatosplenomegaly Neurologic: +dysarthria, mentation improved Results & Data Vital Signs (Past 12 Hours) Vital Signs Temp Pulse Pulse Resp BP Pulse Ox 06/10/19 07:30 37.2 C 87 16 156/88 H 95 06/10/19 04:05 37.0 C 83 20 157/82 H 97 06/09/19 23:53 36.9 C 79 20 124/75 96 06/09/19 22:00 99 H 178/84 H
[2019-06-10] MEDS ORDERED: GADOBUTROL 65ML VIAL IV PRN (13:24)
--- NOTE | 2019-06-10 13:34 | Magnetic Resonance Report ---
MR brain wo/w con CLINICAL HISTORY: transient change in mental status, exclude stroke COMPARISON STUDY: No previous studies for comparison. TECHNIQUE: Utilizing a 1.5 Ame magnet and dedicated coil, multiplanar, multiecho imaging of the br ain was performed pre and postcontrast administration. IV administration of 8 mL of Gadavist contras t was uneventful. FINDINGS: Diffusion images show no evidence for an acute ischemic event. Postcontrast images show no abnormal postcontrast enhancement. Multiple foci of increased signal are identified in the periventricular and deep white matter regions . This is most consistent with a component of chronic small vessel change. Findings of mild cerebral atrophy. IMPRESSION: 1. No acute process. 2. No evidence for an acute ischemic insult. 3. Moderate atrophy, chronic small vessel change of aging, and mild compensatory ventricular prominen ce. The above report was generated using voice recognition software. It may contain grammatical, syntax or spelling errors. Electronically signed by: Rolando Brothers M.D. 06/10/2019 1:32 PM
--- NOTE | 2019-06-10 21:45 | Hospitalist Progress Note ---
Date of Service June 10, 2019 Assessment & Plan (1) NSTEMI (non-ST elevated myocardial infarction): Hx of chest pain Noted to have pronounced ST-T changes 1 aVL and lateral leads NSTEMI with increasing troponin Has been on intravenous heparin and aspirin Echo results: Study was technically difficult, LV apex was not well visualized, small sized anteroseptal wall motion abnormality with hypokinesis of the segments, LV systolic function is normal, LVEF was 50 to 55% and there is mild m itral regurgitation Appreciate cardiology input and recommendation IV heparin has been discontinued, lovenox started Patient was hypertensive (SBP 190s) (12 AM), then received her cardiac medications and became profoundly hypotensive. She also complained about some left sided chest pain earlier. EKG showed T wave inversions in precordial leads, more prominent than previous EKG 2 days ago. Evaluated by cardiology, underwent cardiac cath (06/09), results, essentially normal cardiac arteries. Continue medication therapy, with aspirin, carvedilol 25 mg twice daily, isosorbide mononitrate 30 mg daily, lisinopril 40 mg daily, atorvastatin 40 mg daily. (Coreg decreased to 25mg twice daily) We will continue to closely monitor (2) Metabolic encephalopathy: Noted to have change in mental status while in the hospital Did not have any sepsis or other infection No significant other causes were found except gabapentin was on hold during admission due to extreme lethargy Clinically better now Her home medications have been restarted (3) Sepsis: Pt is 78 y/o F with PMH HTN, dyslipidemia, DM II, GERD, CKD III, diastolic dysfunction, LVH presented to ER with c/o weakness x 1 day.Recent cystoscopy and left ureteral stent 05/13/[address] Bone. On 05/26/2018 had cystoscopy, ureteroscopy, stent, basket retrieval ureteral stone. 05/26/2019 patient was given Keflex for 5-day course. Pt instructed self pull stent on 05/28/19 which reports did without difficulty CT HEAD: No acute intracranial findings CT ABD/PELVIS:1. No evidence of bowel obstruction. No evidence of free air. 2. Extensive pandiverticulosis. No evidence of acute diverticulitis. 3. Bilateral nephrolithiasis. 4. Mild left-sided hydronephrosis and left hydroureter with resolution of the previously identified perinephric infiltration. The previously identified distal left ureteral calculus is no longer visualized. The left-sided hydronephrosis may represent a residua from prior obstruction, or could be secondary to ureteral edema status post instrumentation. Clinical follow-up will be necessary. CXR: Cardiomegaly with no acute cardiopulmonary abnormality. Likely secondary to UTI Urine culture is not growing any organism likely due to receiving of antibiotic Finished intravenous antibiotic (zosyn) for 3 days, per ID recommendation (4) Acute kidney injury superimposed on CKD: H/O CKD III. Baseline Cr ~0.9-1.0 Cr 1.06 on 06/08 (1.03 on 06/06), normalized - received IVF on admission -Monitor renal functions - lisinopril re-started - gabapentin re-started - Hold metformin -Avoid other nephrotoxic agents when possible -Creatinine is normalized, will cont. to monitor (5) Weakness: Pt with increased weakness, lethargy over past 24 hours. Reported 3 falls over 24 hours with no known injury (prior to admission) Probable secondary to underlying infection -Consider PT/OT when appropriate - MRI brain obtained today (06/10) -no acute ischemia (6) Hypertension: Presented hypotensive which responded to IVF -Carvedilol has been started (managed by cardiology) -Lisinopril was restarted on June 06, decreased the dose to half, 20 mg for today as creatinine still normal (pt underwent cardiac cath today 06/09) will resume full dose of 40 mg (7) Diabetes mellitus, type II: A1c: 7.6 on 05/19/19 -Hold metformin -Novolog sliding scale per protocol -Monitor BSGs (8) Anemia: Chronic anemia. Baseline Hgb~ 9-10 Hgb: 9. No signs of bleeding Hemoglobin is dropped to 8.3 as of 06/06 In part could be due to dilation We will check a stool for occult blood Iron studies-iron level has been low Started with oral iron supplement Hemoglobin is more than 9 as of 06/07 (9) Diastolic dysfunction: 2016 echo with EF: 60%, grade 1 diastolic dysfunction, LVF On admission appeared dehydrated Noted to have mild CHF on chest x-ray She received 1 dose of 40 mg Lasix intravenously and diuresed enough -then received another dose of Lasix (10) GERD (gastroesophageal reflux disease): -Continue PPI (11) Dyslipidemia: -Hold statin for now DVT Prophylaxis -Heparin SQ Full Code as per discussion with pt's and recent discussion with pt on recent admission earlier this month Follows with Dr House for routine care Subjective Patient is sitting in the chair, comfortable, in no acute distress. Answers all the questions appropriately and correctly, however her speech is a bit slow. Her is present also at the bedside. Says patient has been using a walker for ambulation, and does not get around very much, usually sits at home and ambulates only to bathroom. However he says that sometimes she is able to walk with him in a store with a walker and that is without much difficulty. At this moment he feels as she is at her baseline mentally, however more weak. Patient says she feels very weak and could not walk much now. She otherwise denies any fevers, chills, chest pain, shortness of breath, abd ominal pain, nausea or vomiting. She has good appetite. Review of Systems Review of Systems: All systems reviewed & are unremarkable except as noted in HPI & below Constitutional: + weakness; no fever and no chills Respiratory: no cough, no dyspnea and no pain on inspiration Cardiovascular: no chest pain, no palpitations and no edema Gastrointestinal: no abdominal pain, no nausea and no vomiting Physical Exam Physical Exam: Physical Exam: Elderly female sitting up in the chair, comfortable in no acute distress, alert and oriented Constitutional: well developed, well nourished, + ill / pale appearing Eyes: PERRL, EOMI, normal, anicteric sclerae ENMT: external ear and nose normal, oropharynx normal Neck: supple, no JVD Respiratory: normal respiratory effort; no respiratory distress Auscultation: clear to auscult., no wheezes Cardiovascular: Rate/Rhythm: regular rate and regular rhythm Heart Sounds: no murmur Extremities: + edema (Trace bilaterally) Gastrointestinal (Abdomen): Inspection/Auscultation: abdomen normal to inspection and normal bowel sounds Percussion/Palpation: abdomen soft; abdomen nontender Musculoskeletal: No acute arthritis in any joints Neurologic: moves all extremities; no focal motor deficits, Alert and oriented, answers questions appropriately, speech is slow Lymphatic: no cervical or axillary lymphadenopathy Results & Data Vital Signs (Past 12 Hours) Vital Signs Temp Pulse Resp BP BP Pulse Ox 06/10/19 20:02 36.9 C 80 20 147/82 H 94 06/10/19 15:59 37.7 C H 85 18 148/78 H 96 06/10/19 12:24 36.8 C 76 16 115/73 94 06/10/19 11:32 91 Laboratory Results 06/10/19 06/10/19 06/10/19 Range/Units 20:36 16:56 11:18 WBC (4.8-10.8) K/uL RBC (4.2-5.4) M/uL Hgb (12.0-16.0) g/dL Hct (37-47) % MCV (80-100) fL MCH (25-34) pg MCHC (32-36) g/dL RDW Std Deviation (36.4-46.3) fL RDW Coeff of Pia (11.5-14.5) % Plt Count (130-400) K/uL MPV (7.4-10.4) fL Immature Gran % (Auto) % Neut % (Auto) % Lymph % (Auto) % [place] % (Auto) % Eos % (Auto) % Baso % (Auto) % Immature Gran # (Auto) (0.00-0.02) K/uL Neut # (Auto) (1.4-6.5) K/uL Lymph # (Auto) (1.2-3.4) K/uL [place] # (Auto) (0.11-0.59) K/uL Eos # (Auto) (0-0.5) K/uL Baso # (Auto) (0-0.2) K/uL Sodium (136-145) mmol/L Potassium (3.5-5.1) mmol/L Chloride (98-107) mmol/L Carbon Dioxide (21-32) mmol/L Anion Gap (3-11) BUN (7-18) mg/dl Creatinine (0.6-1.2) mg/dl Est Cr Clr Drug Dosing ml/min Est GFR ( Amer) Est GFR (Non-Af Amer) BUN/Creatinine Ratio (10-20) Glucose (70-99) mg/dl POC Glucose 158 H 180 H 213 H (70-99) Calcium (8.5-10.1) mg/dl Total Bilirubin (0.2-1) mg/dl AST (15-37) U/L ALT (12-78) U/L Alkaline Phosphatase (45-117) U/L Total Protein (6.4-8.2) gm/dl Albumin (3.4-5.0) gm/dl Globulin (2.5-4.0) gm/dl Albumin/Globulin Ratio (0.9-2) 06/10/19 06/10/19 06/10/19 Range/Units 07:34 05:40 05:40 WBC 6.81 (4.8-10.8) K/uL RBC 3.98 L (4.2-5.4) M/uL Hgb 9.3 L (12.0-16.0) g/dL Hct 31.7 L (37-47) % MCV 79.6 L (80-100) fL MCH 23.4 L (25-34) pg MCHC 29.3 L (32-36) g/dL RDW Std Deviation 53.3 H (36.4-46.3) fL RDW Coeff of Pia 18.1 H (11.5-14.5) % Plt Count 227 (130-400) K/uL MPV 9.1 (7.4-10.4) fL Immature Gran % (Auto) 1.0 % Neut % (Auto) 60.1 % Lymph % (Auto) 24.1 % [place] % (Auto) 10.7 % Eos % (Auto) 3.7 % Baso % (Auto) 0.4 % Immature Gran # (Auto) 0.07 H (0.00-0.02) K/uL Neut # (Auto) 4.09 (1.4-6.5) K/uL Lymph # (Auto) 1.64 (1.2-3.4) K/uL [place] # (Auto) 0.73 H (0.11-0.59) K/uL Eos # (Auto) 0.25 (0-0.5) K/uL Baso # (Auto) 0.03 (0-0.2) K/uL Sodium 140 (136-145) mmol/L Potassium 4.0 (3.5-5.1) mmol/L Chloride 106 (98-107) mmol/L Carbon Dioxide 28 (21-32) mmol/L Anion Gap 6.0 (3-11) BUN 17 (7-18) mg/dl Creatinine 1.00 (0.6-1.2) mg/dl Est Cr Clr Drug Dosing 49.7 ml/min Est GFR ( Amer) 62.9 Est GFR (Non-Af Amer) 54.3 BUN/Creatinine Ratio 16.7 (10-20) Glucose 179 H (70-99) mg/dl POC Glucose 190 H (70-99) Calcium 9.7 (8.5-10.1) mg/dl Total Bilirubin 0.3 (0.2-1) mg/dl AST 16 (15-37) U/L ALT 16 (12-78) U/L Alkaline Phosphatase 63 (45-117) U/L Total Protein 7.4 (6.4-8.2) gm/dl Albumin 2.3 L (3.4-5.0) gm/dl Globulin 5.1 H (2.5-4.0) gm/dl Albumin/Globulin Ratio 0.5 L (0.9-2) Medications Administered Current Inpatient Medications Acetaminophen (Tylenol) 650 mg PO Q4H PRN PRN Reason: Pain or Fever Stop: 07/04/19 19:37 Last Admin: 06/09/19 17:29 Dose: 650 mg Documented by: Artificial Tears (Artificial Tears) 1 drops OP BID PRN PRN Reason: DRY EYES Stop: 07/07/19 04:27 Aspirin (Ecotrin Ectab) 81 mg PO [facility] Stop: 07/07/19 08:59 Last Admin: 06/10/19 08:21 Dose: 81 mg Documented by: Atorvastatin Calcium (Lipitor) 40 mg PO [facility] Stop: 07/06/19 08:59 Last Admin: 06/10/19 08:21 Dose: 40 mg Documented by: Carvedilol (Coreg) 25 mg PO BID [facility] Stop: 07/09/19 20:59 Last Admin: 06/10/19 21:19 Dose: 25 mg Documented by: Dextrose (Dextrose 50%) 25 - 50 ml IV UD PRN; Protocol PRN Reason: Hypoglycemia Protocol Stop: 07/04/19 19:37 Enoxaparin Sodium (Lovenox) 30 mg SQ [facility] Stop: 07/09/19 08:59 Last Admin: 06/10/19 08:21 Dose: 30 mg Documented by: Ferrous Sulf[facility] ([facility]ol) [facility] Stop: 07/07/19 10:14 Last Admin: 06/10/19 08:21 Dose: 325 mg Documented by: Gabapentin (Neurontin) 800 mg PO TID [facility] Stop: 07/07/19 08:59 Last Admin: 06/10/19 21:19 Dose: 800 mg Documented by: Gadobutrol (Gadavist 65ml) 8 ml IV ONCE PRN PRN Reason: Interaction Checking Stop: 06/14/19 13:23 Last Admin: 06/10/19 13:27 Dose: 8 ml Documented by: Glucagon (Glucagen) 1 mg SQ UD PRN; Protocol PRN Reason: Hypoglycemia Protocol Stop: 07/04/19 19:37 Glucose (Dex4 Glucose) 4 - 8 tabs PO UD PRN; Protocol PRN Reason: Hypoglycemia Protocol Stop: 07/04/19 19:37 Glucose (Glucose 40%) 15 - 30 gm PO UD PRN; Protocol PRN Reason: Hypoglycemia Protocol Stop: 07/04/19 19:37 Guaifenesin (Mucinex) 600 mg PO Q12 [facility] Stop: 07/04/19 21:59 Last Admin: 06/10/19 21:19 Dose: 600 mg Documented by: Insulin Aspart (Novolog Flexpen) 0 units SC [facility] Stop: 07/04/19 20:59 Last Admin: 06/10/19 21:13 Dose: Not Given Documented by: Isosorbide Mononitrate (Imdur Extended Rel) 30 mg PO [facility] Stop: 07/07/19 10:29 Last Admin: 06/10/19 08:20 Dose: 30 mg Documented by: Lisinopril (Zestril) 20 mg PO [facility] Stop: 07/10/19 08:59 Last Admin: 06/10/19 08:22 Dose: 20 mg Documented by: Lorazepam (Ativan) 0.5 mg PO BID PRN PRN Reason: Anxiety Stop: 07/07/19 03:24 Metoprolol Tartrate (Lopressor) 2.5 mg IV Q4 PRN PRN Reason: Hypertension Stop: 07/06/19 00:00 Last Admin: 06/07/19 02:25 Dose: 2.5 mg Documented by: Metronidazole (Metrogel) 1 appln TOP BID PRN PRN Reason: Rash Stop: 06/17/19 04:26 Miscellaneous (Carbohydrates For Hypoglycemia) 15 - 30 gm PO UD PRN PRN Reason: Hypoglycemia Protocol Stop: 07/04/19 19:37 Pantoprazole Sodium (Protonix) [facility] Stop: 07/05/19 08:59 Last Admin: 06/10/19 08:20 Dose: 40 mg Documented by: Phenazopyridine HCl (Pyridium) 200 mg PO Q8H PRN PRN Reason: pain Stop: 07/05/19 09:36
[2019-06-11] MEDS: ACETAMINOPHEN 325 MG TAB PO PRN ×2 (02:30→14:47)
[2019-06-11] MEDS: METOPROLOL TARTRATE 1 MG/ML VIAL IV PRN (02:31)
[2019-06-11] MEDS: carvediloL 25 MG TAB PO SCH ×2 (05:31→20:10)
[2019-06-11 06:29] LABS: BUN Creatinine Ratio 18.3 (10-20); Calcium 9.8 mg/dl (8.5-10.1); Creatinine Clr Calc Pharmacy 50.1 ml/min; Est GFR (African American) 63.7; Magnesium 1.8 mg/dl (1.8-2.4)
[2019-06-11] MEDS: INSULIN ASPART 100 UNITS/ML 3 ML PEN SC SCH ×4 (08:11→20:11)
[2019-06-11] MEDS: ATORVASTATIN 40 MG TAB PO SCH (08:12)
[2019-06-11] MEDS: guaiFENesin 600 MG TABCR PO SCH ×2 (08:12→20:10)
[2019-06-11] MEDS: GABAPENTIN 800 MG TAB PO SCH ×3 (08:12→20:10)
[2019-06-11] MEDS: PANTOprazole 40 MG TAB PO SCH (08:12)
[2019-06-11] MEDS: lisinopriL 40 MG TAB PO SCH (08:12)
[2019-06-11] MEDS: ENOXAPARIN INJ 30 MG/0.3 ML SYR SQ SCH (08:13)
[2019-06-11] MEDS: ASPIRIN 81 MG ECTAB PO SCH (08:13)
[2019-06-11] MEDS: FERROUS SULFATE 325 MG TAB PO SCH (08:13)
[2019-06-11] MEDS: ISOSORBIDE MONO EXTENDED REL 30 MG TABCR PO SCH (08:14)
--- NOTE | 2019-06-11 14:47 | Hospitalist Progress Note ---
Date of Service June 11, 2019 Assessment & Plan (1) NSTEMI (non-ST elevated myocardial infarction): Hx of chest pain Noted to have pronounced ST-T changes 1 aVL and lateral leads NSTEMI with increasing troponin Has been on intravenous heparin and aspirin Echo results: Study was technically difficult, LV apex was not well visualized, small sized anteroseptal wall motion abnormality with hypokinesis of the segments, LV systolic function is normal, LVEF was 50 to 55% and there is mild m itral regurgitation Appreciate cardiology input and recommendation IV heparin has been discontinued, lovenox started Patient was hypertensive (SBP 190s) (06/09 AM), then received her cardiac medications and became profoundly hypotensive. She also complained about some left sided chest pain earlier. EKG showed T wave inversions in precordial leads, more prominent than previous EKG 2 days ago. Evaluated by cardiology, underwent cardiac cath (06/09), results, essentially normal cardiac arteries. Continue medication therapy, with aspirin, carvedilol 25 mg twice daily, isosorbide mononitrate 30 mg daily, lisinopril 40 mg daily, atorvastatin 40 mg daily. (Coreg decreased to 25mg twice daily) If she develops headaches, can stop isosorbide mononitrate We will continue to closely monitor (2) Metabolic encephalopathy: Noted to have change in mental status while in the hospital No clear causes were found, probably underlying infx MRI brain (06/10) negative for acute ischemia Clinically much better now Her home medications have been restarted (3) Sepsis: Pt is 78 y/o F with PMH HTN, dyslipidemia, DM II, GERD, CKD III, diastolic dysfunction, LVH presented to ER with c/o weakness x 1 day.Recent cystoscopy and left ureteral stent 05/13/[address] Bone. On 05/26/2018 had cystoscopy, ureteroscopy, stent, basket retrieval ureteral stone. 05/26/2019 patient was given Keflex for 5-day course. Pt instructed self pull stent on 05/28/19 which reports did without difficulty CT HEAD: No acute intracranial findings CT ABD/PELVIS:1. No evidence of bowel obstruction. No evidence of free air. 2. Extensive pandiverticulosis. No evidence of acute diverticulitis. 3. Bilateral nephrolithiasis. 4. Mild left-sided hydronephrosis and left hydroureter with resolution of the previously identified perinephric infiltration. The previously identified distal left ureteral calculus is no longer visualized. The left-sided hydronephrosis may represent a residua from prior obstruction, or could be secondary to ureteral edema status post instrumentation. Clinical follow-up will be necessary. CXR: Cardiomegaly with no acute cardiopulmonary abnormality. Likely secondary to UTI Urine culture is not growing any organism likely due to receiving of antibiotic Finished intravenous antibiotic (zosyn) for 3 days, per ID recommendation (4) Acute kidney injury superimposed on CKD: H/O CKD III. Baseline Cr ~0.9-1.0 Cr 1.06 on 06/08 (1.03 on 06/06), normalized - received IVF on admission -Monitor renal functions - lisinopril re-started - gabapentin re-started - Hold metformin, can re-start on discharge -Avoid other nephrotoxic agents when possible -Creatinine is normalized, will cont. to monitor (5) Weakness: Pt with increased weakness, lethargy over past 24 hours. Reported 3 falls over 24 hours with no known injury (prior to admission) Probable secondary to underlying infection -Consider PT/OT when appropriate - MRI brain obtained (06/10) -no acute ischemia (6) Hypertension: Presented hypotensive which responded to IVF -Carvedilol has been started (managed by cardiology) -Lisinopril also restarted (7) Diabetes mellitus, type II: A1c: 7.6 on 05/19/19 -Hold metformin -Novolog sliding scale per protocol -Monitor BSGs (8) Anemia: Chronic anemia. Baseline Hgb~ 9-10 Hgb: 9.3 on 06/10 No signs of bleeding Iron studies-iron level has been low Started with oral iron supplement (9) Diastolic dysfunction: 2016 echo with EF: 60%, grade 1 diastolic dysfunction, LVF On admission appeared dehydrated Noted to have mild CHF on chest x-ray She received 1 dose of 40 mg Lasix intravenously and diuresed enough -then again received another dose of Lasix - weight stable (10) GERD (gastroesophageal reflux disease): -Continue PPI (11) Dyslipidemia: -can re-start statin DVT Prophylaxis -Heparin SQ Full Code as per discussion with pt's and recent discussion with pt on recent admission earlier this month Follows with Dr House for routine care Subjective Pt is sitting up in the chair, watching TV, comfortable, in no acute distress. She denies any fever, chills, chest pain, shortness of breath, abd. pain, nausea, vomiting. Says her appetite is very good. Review of Systems Review of Systems: All systems reviewed & are unremarkable except as noted in HPI & below Constitutional: + weakness; no fever, no chills and no fatigue Respiratory: no cough, no dyspnea and no pain on inspiration Cardiovascular: no chest pain, no dyspnea on exertion and no palpitations Gastrointestinal: no abdominal pain, no nausea and no vomiting Physical Exam Physical Exam: Physical Exam: Elderly female sitting up in the chair, comfortable in no acute distress, alert and oriented, on room air Constitutional: well developed, well nourished, + ill / pale appearing Eyes: PERRL, EOMI, normal, anicteric sclerae ENMT: external ear and nose normal, oropharynx normal Neck: supple, no JVD Respiratory: normal respiratory effort; no respiratory distress Auscultation: mostly clear to auscult., no wheezes, mild rhonchi Cardiovascular: Rate/Rhythm: regular rate and regular rhythm Heart Sounds: no murmur Extremities: + edema (Trace bilaterally) Gastrointestinal (Abdomen): Inspection/Auscultation: abdomen normal to inspection and normal bowel sounds Percussion/Palpation: abdomen soft; abdomen nontender Musculoskeletal: No acute arthritis in any joints Neurologic: moves all extremities; no focal motor deficits, Alert and oriented, answers questions appropriately, speech is slow Lymphatic: no cervical or axillary lymphadenopathy Results & Data Vital Signs (Past 12 Hours) Vital Signs Temp Pulse Pulse Pulse Resp BP BP 06/11/19 13:36 113/66 06/11/19 11:51 36.8 C 80 18 95/58 L 06/11/19 10:10 73 06/11/19 07:03 36.6 C 76 19 178/80 H 06/11/19 04:33 36.7 C 81 20 184/85 H 06/11/19 03:15 84 168/77 H Pulse Ox 06/11/19 13:36 06/11/19 11:51 97 06/11/19 10:10 06/11/19 07:03 93 06/11/19 04:33 95 06/11/19 03:15 Laboratory Results 06/11/19 06/11/19 06/11/19 Range/Units 11:31 07:17 05:30 Sodium 138 (136-145) mmol/L Potassium 4.0 (3.5-5.1) mmol/L Chloride 105 (98-107) mmol/L Carbon Dioxide 28 (21-32) mmol/L Anion Gap 5.0 (3-11) BUN 18 (7-18) mg/dl Creatinine 0.99 (0.6-1.2) mg/dl Est Cr Clr Drug Dosing 50.1 ml/min Est GFR ( Amer) 63.7 Est GFR (Non-Af Amer) 55.0 BUN/Creatinine Ratio 18.3 (10-20) Glucose 183 H (70-99) mg/dl POC Glucose 220 H 203 H (70-99) Calcium 9.8 (8.5-10.1) mg/dl Magnesium 1.8 (1.8-2.4) mg/dl 06/10/19 06/10/19 Range/Units 20:36 16:56 Sodium (136-145) mmol/L Potassium (3.5-5.1) mmol/L Chloride (98-107) mmol/L Carbon Dioxide (21-32) mmol/L Anion Gap (3-11) BUN (7-18) mg/dl Creatinine (0.6-1.2) mg/dl Est Cr Clr Drug Dosing ml/min Est GFR ( Amer) Est GFR (Non-Af Amer) BUN/Creatinine Ratio (10-20) Glucose (70-99) mg/dl POC Glucose 158 H 180 H (70-99) Calcium (8.5-10.1) mg/dl Magnesium (1.8-2.4) mg/dl Medications Administered Current Inpatient Medications Acetaminophen (Tylenol) 650 mg PO Q4H PRN PRN Reason: Pain or Fever Stop: 07/04/19 19:37 Last Admin: 06/11/19 02:30 Dose: 650 mg Documented by: Artificial Tears (Artificial Tears) 1 drops OP BID PRN PRN Reason: DRY EYES Stop: 07/07/19 04:27 Aspirin (Ecotrin Ectab) 81 mg PO [facility] Stop: 07/07/19 08:59 Last Admin: 06/11/19 08:13 Dose: 81 mg Documented by: Atorvastatin Calcium (Lipitor) 40 mg PO [facility] Stop: 07/06/19 08:59 Last Admin: 06/11/19 08:12 Dose: 40 mg Documented by: Carvedilol (Coreg) 25 mg PO BID [facility] Stop: 07/11/19 05:14 Last Admin: 06/11/19 05:31 Dose: 25 mg Documented by: Dextrose (Dextrose 50%) 25 - 50 ml IV UD PRN; Protocol PRN Reason: Hypoglycemia Protocol Stop: 07/04/19 19:37 Enoxaparin Sodium (Lovenox) 30 mg SQ QAM [facility] Stop: 07/09/19 08:59 Last Admin: 06/11/19 08:13 Dose: 30 mg Documented by: Ferrous Sulfate (Feosol) 325 mg PO QAM [facility] Stop: 07/07/19 10:14 Last Admin: 06/11/19 08:13 Dose: 325 mg Documented by: Gabapentin (Neurontin) 800 mg PO TID [facility] Stop: 07/07/19 08:59 Last Admin: 06/11/19 14:45 Dose: 800 mg Documented by: Gadobutrol (Gadavist 65ml) 8 ml IV ONCE PRN PRN Reason: Interaction Checking Stop: 06/14/19 13:23 Last Admin: 06/10/19 13:27 Dose: 8 ml Documented by: Glucagon (Glucagen) 1 mg SQ UD PRN; Protocol PRN Reason: Hypoglycemia Protocol Stop: 07/04/19 19:37 Glucose (Dex4 Glucose) 4 - 8 tabs PO UD PRN; Protocol PRN Reason: Hypoglycemia Protocol Stop: 07/04/19 19:37 Glucose (Glucose 40%) 15 - 30 gm PO UD PRN; Protocol PRN Reason: Hypoglycemia Protocol Stop: 07/04/19 19:37 Guaifenesin (Mucinex) 600 mg PO Q12 [facility] Stop: 07/04/19 21:59 Last Admin: 06/11/19 08:12 Dose: 600 mg Documented by: Insulin Aspart (Novolog Flexpen) 0 units SC [facility] Stop: 07/04/19 20:59 Last Admin: 06/11/19 12:12 Dose: 3 units Documented by: Isosorbide Mononitrate (Imdur Extended Rel) [facility] [place]: 07/07/19 10:29 Last Admin: 06/11/19 08:14 Dose: 30 mg Documented by: Lisinopril (Zestril) [facility] Stop: 07/11/19 08:59 Last Admin: 06/11/19 08:12 Dose: 40 mg Documented by: Lorazepam (Ativan) 0.5 mg PO BID PRN PRN Reason: Anxiety Stop: 07/07/19 03:24 Metoprolol Tartrate (Lopressor) 2.5 mg IV Q4 PRN PRN Reason: Hypertension Stop: 07/06/19 00:00 Last Admin: 06/11/19 02:31 Dose: 2.5 mg Documented by: Metronidazole (Metrogel) 1 appln TOP BID PRN PRN Reason: Rash Stop: 06/17/19 04:26 Miscellaneous (Carbohydrates For Hypoglycemia) 15 - 30 gm PO UD PRN PRN Reason: Hypoglycemia Protocol Stop: 07/04/19 19:37 Pantoprazole Sodium (Protonix) 40 mg PO [facility] Stop: 07/05/19 08:59 Last Admin: 06/11/19 08:12 Dose: 40 mg Documented by: Phenazopyridine HCl (Pyridium) 200 mg PO Q8H PRN PRN Reason: pain Stop: 07/05/19 09:36
--- NOTE | 2019-06-11 20:35 | Cardiology Progress Note ---
Date of Service June 11, 2019 Assessment & Plan (1) NSTEMI (non-ST elevated myocardial infarction): (2) Iron deficiency anemia: Cardiology was initially consulted due to volume overload and intermittent chest discomfort. I think the volume overload was due to hydration received in the setting of suspected urinary tract infection with underlying hypertension and diastolic dysfunction. Her troponin peaked at just over 1 ng/ml. Due to recurrent chest discomfort, and EKG abnormalities including T wave inversions in the precordial leads she ultimately underwent cardiac catheterization findings of widely patent large coronary arteries. Due to issues with her waxing and waning mental status as well as observation dysarthria she underwent an MRI with no acute intracranial pathology. Over the last few days despite my contact with her , I have had difficulty trying to discern how much of her mental status issues are due to dementia versus delirium. At this point, I do think she seems to have a significant amount of underlying dementia. Recommend continue treatment with aspirin for suspected underlying cerebrovascular disease. Continue Lovenox subcutaneously for DVT prophylaxis, and iron supplementation. Blood pressure is trended toward improvement on carvedilol lisinopril isosorbide mononitrate. If she complains of future headache, could probably discontinue the isosorbide mononitrate given findings of widely patent coronary arteries. Subjective Patient sitting in bedside chair, somewhat difficult to arouse. No complaints. Physical Exam Physical Exam: Temp Pulse Resp BP Pulse Ox 36.7 C 74 18 147/77 H 97 06/11/19 20:01 06/11/19 20:01 06/11/19 20:01 06/11/19 20:01 06/11/19 20:01 Constitutional: + obese Respiratory: normal respiratory effort, lungs clear to auscultation Cardiovascular: RRR, no murmur, no edema Gastrointestinal (Abdomen): normal bowel sounds, soft, nontender, no hepatosplenomegaly Neurologic: Follows commands, cognitive impairment noted Results & Data Vital Signs (Past 12 Hours) Vital Signs Temp Pulse Pulse Resp BP Pulse Ox 06/11/19 20:01 36.7 C 74 18 147/77 H 97 06/11/19 16:47 72 06/11/19 15:07 36.7 C 81 18 119/57 L 97 06/11/19 13:36 113/66 06/11/19 11:51 36.8 C 80 18 95/58 L 97 06/11/19 10:10 73
[2019-06-12] MEDS: ACETAMINOPHEN 325 MG TAB PO PRN (03:00)
[2019-06-12] MEDS: ASPIRIN 81 MG ECTAB PO SCH (07:39)
[2019-06-12] MEDS: FERROUS SULFATE 325 MG TAB PO SCH (07:40)
[2019-06-12] MEDS: GABAPENTIN 800 MG TAB PO SCH (07:40)
[2019-06-12] MEDS: carvediloL 25 MG TAB PO SCH (07:40)
[2019-06-12] MEDS: ISOSORBIDE MONO EXTENDED REL 30 MG TABCR PO SCH (07:40)
[2019-06-12] MEDS: lisinopriL 40 MG TAB PO SCH (07:40)
[2019-06-12] MEDS: ENOXAPARIN INJ 30 MG/0.3 ML SYR SQ SCH (07:41)
[2019-06-12] MEDS: PANTOprazole 40 MG TAB PO SCH (07:41)
[2019-06-12] MEDS: guaiFENesin 600 MG TABCR PO SCH (07:41)
[2019-06-12] MEDS: ATORVASTATIN 40 MG TAB PO SCH (07:41)
[2019-06-12] MEDS: INSULIN ASPART 100 UNITS/ML 3 ML PEN SC SCH ×2 (08:13→12:38)
--- NOTE | 2019-06-12 12:07 | Discharge Summary ---
Date of Service June 12, 2019 Admission HPI Per Admitting Provider Pt is 78 y/o F with PMH HTN, dyslipidemia, DM II, GERD, CKD III, diastolic dysfunction, LVH presented to ER with c/o weakness x 1 day. History obtained from patient's and chart review secondary to patient's lethargy and sleepiness. Patient with history cystoscopy and left ureteral stent 05/13/[address] Bone. On 05/26/2018 had cystoscopy, ureteroscopy, stent, basket retrieval ureteral stone. 05/26/2019 patient was given Keflex for 5-day course and Pyridium which patient's reports she finished. reports on 05/28/19 pt was instructed to self pull the stent and that she was able to do so without difficulty. Patient's reports that patient has had continued discomfort to left lower quadrant however has not seemed to express that discomfort was increased. Patient's reports pt with increased weakness, lethargy and increased sleeping. Reports she had a fall in the bathroom yesterday, that he heard her fall and reports he immediately went into the bathroom and found her lying on floor and patient was awake. At that time patient denied any injury. He reports patient rolled out of bed last night and he was able to get to bedside quickly and patient had no LOC. Reports this morning patient slid out of chair and and he was able to assist her to ground. Patient normally uses walker to ambulate however has not been able to ambulate over the past day. Reports patient vomited once last night. States patient ate half honey bun this morning. Outpatient records reviewed showing on 05/31/2019 patient was given Z-Itz for sinusitis with symptoms of sinus pressure and cough. Patient's is unaware of any fevers, chills, rigors, diarrhea or hematuria or noted SOB. Admission Exam Per Admitting Provider General: lethargic female, sleeping in no apparent distress, obese Head: normocephalic, atraumatic Eyes: PERRL, EOM's intact, conjunctiva non-injected, anicteric ENT: normal inspection external ears, nose, mucous membranes dry Neck: supple, trachea midline Lungs: no respiratory distress, lungs difficult to fully auscultate secondary to pts snoring and body habitus, however appear clear CV: RRR, no murmur, no pretibial edema Abd: normal BS, soft, +apparent tenderness to palpation LLQ, no rebound Ext: no cyanosis, no calf tenderness Neuro: Lethargic, sleeping, arouses to palpation of LLQ and reports discomfort then falls back asleep Skin: warm, dry Principal Diagnosis Metabolic encephalopathy, Weakness/ambulatory dysfunction, NSTEMI, Iron deficiency anemia, Hypertension Discharge Exam Physical Exam: Elderly female sitting up in the bed, comfortable in no acute di stress, alert and oriented, on room air Constitutional: well developed, well nourished, + ill / pale appearing Eyes: PERRL, EOMI, normal, anicteric sclerae ENMT: external ear and nose normal, oropharynx normal Neck: supple, no JVD Respiratory: normal respiratory effort; no respiratory distress Auscultation: mostly clear to auscult., no wheezes, crackles or rhonchi Cardiovascular: Rate/Rhythm: regular rate and regular rhythm Heart Sounds: no murmur Extremities: + edema (Trace bilaterally) Gastrointestinal (Abdomen): Inspection/Auscultation: abdomen normal to inspection and normal bowel sounds Percussion/Palpation: abdomen soft; abdomen nontender Musculoskeletal: No acute arthritis in any joints Neurologic: moves all extremities; no focal motor deficits, Alert and dwayne ented, answers questions appropriately, speech is slow Lymphatic: no cervical or axillary lymphadenopathy Discharge Data Allergies Allergy/AdvReac Type Severity Reaction Status Date / Time oxycodone Allergy Intermediate SEDATED Verified 06/04/19 15:54 Consultations 06/04/19 17:17 ED Decision to Admit Stat 06/04/19 19:38 Consult Case Management - Discharge Planning Routine Consult Infectious Diseases Routine 06/06/19 08:00 Consult Cardiology Routine Procedures Performed Operation Date: 06/09/19 11:00 Actual Procedures p Cath, Left with Cors and Vent - Umesh Vo MD s Cineradiography w/Routine Exam - Umesh Vo MD Ordered Studies 06/04/19 15:17 CT head/brain wo con Stat FINDINGS: No intra or extra-axial mass lesions are visualized. There is no CT evidence of acute cortical infarction. There is no evidence of midline shift. There is no ac [place] hemorrhage. No calvarial fractures are visualized. There are patchy white matter hypodensities likely on a small vessel basis. There is basal ganglia and cerebellar calcification, similar to the preceding examination. There is no evidence of pathologic ventricular dilatation. There is no evidence of acute sinusitis IMPRESSION: No acute intracranial findings 06/04/19 15:47 CT abd pelvis wo con Stat IMPRESSION: 1. No evidence of bowel obstruction. No evidence of free air 2. Extensive pandiverticulosis. No evidence of acute diverticulitis 3. Bilateral nephrolithiasis 4. Mild left-sided hydronephrosis and left hydroureter with resolution of the previously identified perinephric infiltration. The previously identified distal left ureteral calculus is no longer visualized. The left-sided hydronephrosis may represent a residua from prior obstruction, or could be secondary to ureteral edema status post instrumentation. Clinical follow-up will be necessary. XR Chest (06/04/2019) IMPRESSION: Cardiomegaly with no acute cardiopulmonary abnormality. XR chest 1V portable CLINICAL HISTORY: sob COMPARISON STUDY: 06/04/2019 FINDINGS: The heart is enlarged. There is diffuse elevation of the interstitium[the findings are likely secondary to mild pulmonary vascular congestion. There is no lobar consolidation. IMPRESSION: Cardiomegaly and radiographic evidence of mild congestive failure/fluid overload. No evidence of lobar consolidation 06/06/19 10:02 US venous doppler LE BI Urgent IMPRESSION: No evidence of lower extremity DVT. 06/09/19 10:49 CL Cath Imgs for PACS use only Routine 06/10/19 09:09 MR brain wo/w con Urgent FINDINGS: Diffusion images show no evidence for an acute ischemic event. Postcontrast images show no abnormal postcontrast enhancement. Multiple foci of increased signal are identified in the periventricular and deep white matter regions. This is most consistent with a component of chronic small vessel change. Findings of mild cerebral atrophy. IMPRESSION: 1. No acute process. 2. No evidence for an acute ischemic insult. 3. Moderate atrophy, chronic small vessel change of aging, and mild compensatory ventricular prominence. Hospital Course (1) NSTEMI (non-ST elevated myocardial infarction): Hx of chest pain Noted to have pronounced ST-T changes 1 aVL and lateral leads NSTEMI with increasing troponin Has been on intravenous heparin and aspirin Echo results: Study was technically difficult, LV apex was not well visualized, small sized anteroseptal wall motion abnormality with hypokinesis of the segments, LV systolic function is normal, LVEF was 50 to 55% and there is mild mitral regurgitation Appreciate cardiology input and recommendation IV heparin has been discontinued, lovenox started Patient was hypertensive (SBP 190s) (12 AM), then received her cardiac medications and became profoundly hypotensive. She also complained about some left sided chest pain earlier. EKG showed T wave inversions in precordial leads, more prominent than previous EKG 2 days ago. Evaluated by cardiology, underwent cardiac cath (06/09), results, essentially normal cardiac arteries. Continue medication therapy, with aspirin, carvedilol 25 mg twice daily, isosorbide mononitrate 30 mg daily, lisinopril 40 mg daily, atorvastatin 40 mg daily. (Coreg decreased to 25mg twice daily) If she develops headaches, can stop isosorbide mononitrate We will continue to closely monitor (2) Metabolic encephalopathy: Noted to have change in mental status while in the hospital No clear causes were found, probably underlying infx MRI brain (06/10) negative for acute ischemia Clinically much better now Her home medications have been restarted (3) Sepsis: Pt is 78 y/o F with PMH HTN, dyslipidemia, DM II, GERD, CKD III, diastolic dysfunction, LVH presented to ER with c/o weakness x 1 day.Recent cystoscopy and left ureteral stent 05/13/[address] Bone. On 05/26/2018 had cystoscopy, ureteroscopy, stent, basket retrieval ureteral stone. 05/26/2019 patient was given Keflex for 5-day course. Pt instructed self pull stent on 05/28/19 which reports did without difficulty CT HEAD: No acute intracranial findings CT ABD/PELVIS:1. No evidence of bowel obstruction. No evidence of free air. 2. Extensive pandiverticulosis. No evidence of acute diverticulitis. 3. Bilateral nephrolithiasis. 4. Mild left-sided hydronephrosis and left hydroureter with resolution of the previously identified perinephric infiltration. The previously identified distal left ureteral calculus is no longer visualized. The left- sided hydronephrosis may represent a residua from prior obstruction, or could be secondary to ureteral edema status post instrumentation. Clinical follow-up will be necessary. CXR: Cardiomegaly with no acute cardiopulmonary abnormality. Likely secondary to UTI Urine culture is not growing any organism likely due to receiving of antibiotic Finished intravenous antibiotic (zosyn) for 3 days, per ID recommendation (4) Acute kidney injury superimposed on CKD: H/O CKD III. Baseline Cr ~0.9-1.0 Cr 1.06 on 06/08 (1.03 on 06/06), normalized - received IVF on admission -Monitor renal functions - lisinopril re-started - gabapentin re-started - Hold metformin, can re-start on discharge -Avoid other nephrotoxic agents when possible -Creatinine is normalized, will cont. to monitor (5) Weakness: Pt with increased weakness, lethargy over past 24 hours. Reported 3 falls over 24 hours with no known injury (prior to admission) Probable secondary to underlying infection -Consider PT/OT when appropriate - MRI brain obtained (06/10) -no acute ischemia (6) Hypertension: Presented hypotensive which responded to IVF -Carvedilol has been started (managed by cardiology) -Lisinopril also restarted (7) Diabetes mellitus, type II: A1c: 7.6 on 05/19/19 -Hold metformin -Novolog sliding scale per protocol -Monitor BSGs (8) Anemia: Chronic anemia. Baseline Hgb~ 9-10 Hgb: 9.3 on 06/10 No signs of bleeding Iron studies-iron level has been low Started with oral iron supplement (9) Diastolic dysfunction: 2016 echo with EF: 60%, grade 1 diastolic dysfunction, LVF On admission appeared dehydrated Noted to have mild CHF on chest x-ray She received 1 dose of 40 mg Lasix intravenously and diuresed enough -then again received another dose of Lasix - weight stable, clear to auscultation, no fluid overload (10) GERD (gastroesophageal reflux disease): -Continue PPI (11) Dyslipidemia: -can re-start statin DVT Prophylaxis -Heparin SQ Full Code as per discussion with pt's and recent discussion with pt on recent admission earlier this month Follows with Dr House for routine care Total Time Total Time Spent Total Time Spent (In Minutes): 40 Total Time Includes: Examination of the Patient, Discharge Planning, Medication Reconciliation and Communication With Other Providers Discharge Plan Discharge Items Patient Disposition: Transfer Inpatient Rehab Fac Reason For Visit: SEPSIS Discharge Diagnosis: Metabolic encephalopathy, Weakness/ambulatory dysfunction, NSTEMI, Iron deficiency anemia, Hypertension Activity: As commented below Activity Comment: as tolerated/ per physical therapist Non-emergency contact: Primary Care Provider Call non-emergency contact if: you have any medication questions and your symptoms worsen Follow-up/Referrals: Case House MD [Primary Care Provider] - Diet: Carb Consistent or DM2 and Heart Healthy Addtl Attending Provider Instructions: Take aspirin and isosorbide mononitrate daily for your heart, in addition to Coreg and lisinopril. Take iron supplement for your anemia. Pending Studies at Discharge: No Stand-Alone Forms: My [facility] Skilled Items Patient informed of condition?: Yes DNR: No Discharge Level of Care: Acute rehab Communicable Disease: No Discharge Prognosis: Stable Lines: None Urinary Catheter: No Medications and DC Order Prescriptions: New ferrous sulfate 325 mg (65 mg iron) Tablet,Delayed Release (Dr/Ec) 325 mg PO QAM 30 Days Qty: 30 RF: 0 isosorbide mononitrate 30 mg Tablet Extended Release 24 Hr 30 mg PO QAM 30 Days Qty: 30 RF: 0 aspirin [Ecotrin Low Strength] 81 mg Tablet,Delayed Release (Dr/Ec) 81 mg PO QAM 30 Days Qty: 30 RF: 0 guaifenesin [Mucinex] 600 mg Tablet Extended Release 12hr 600 mg PO Q12 10 Days Qty: 20 RF: 0 acetaminophen [Mapap (acetaminophen)] 325 mg Tablet 650 mg PO Q4H PRN (Reason: pain) 10 Days Qty: 20 RF: 0 Continued carvedilol 25 mg Tablet 25 mg PO BID Qty: 0 RF: 0 metformin 1,000 mg Tablet 1,000 mg PO BIDM Qty: 0 RF: 0 omega-3 fatty acids 1,000 mg Capsule 2,000 mg PO DAILY Qty: 0 RF: 0 metformin 1,000 mg Tablet 500 mg PO QDL Qty: 0 RF: 0 omeprazole 20 mg Tablet,Delayed Release (Dr/Ec) 20 mg PO QAM Qty: 0 RF: 0 coenzyme Q10 100 mg Capsule 100 mg PO DAILY Qty: 0 RF: 0 lorazepam 0.5 mg Tablet 0.5 mg PO BID PRN (Reason: Anxiety) Qty: 0 RF: 0 gabapentin 800 mg Tablet 800 mg PO TID Qty: 0 RF: 0 diphenhydramine HCl [Benadryl] 25 mg Capsule 25 mg PO DAILY PRN (Reason: Allergy Symptoms) Qty: 0 RF: 0 lisinopril 40 mg Tablet 40 mg PO QAM Qty: 0 RF: 0 atorvastatin 40 mg Tablet 40 mg PO QAM Qty: 0 RF: 0 dicyclomine 10 mg Capsule 10 mg PO QID PRN (Reason: Stomach Upset) Qty: 0 RF: 0 valerian root 100 mg Capsule 100 mg PO DAILY RF: 0 metronidazole [Metrogel] 1 % Gel 1 applic TOPICAL BID PRN (Reason: Rash) RF: 0 phenazopyridine [Pyridium] 200 mg tablet 200 mg PO Q8H PRN (Reason: pain) Qty: 9 RF: 0 cholecalciferol (vitamin D3) 50,000 unit capsule 50,000 unit PO MONTHLY RF: 0 Systane Ultra 0.4-0.3 % Drops 1 drp OPHTHALMIC (EYE) BID PRN (Reason: Dry Eye(S)) RF: 0 Slow-Mag 71.5 mg Tablet,Delayed Release (Dr/Ec) 71.5 mg PO BIDM RF: 0 tamsulosin 0.4 mg Capsule 0.4 mg PO HS 30 Days Qty: 30 RF: 0 Discharge Orders: Discharge Order (Routine); Ordered 06/12/19 Ordered By: Mono Locke Admission Data Admit Date/Time: 06/04/19 18:09 Attending Provider: Mono Locke Admit Provider: Shayan Pinto Primary Care Provider: Case House Other Providers: Herbert Negrete ; Nery Purvis ; Gelacio Paige ; [facility] ; Shayan Pinto Other Interventions: Discharge Summary Assessment (RN) Last Done: 06/12/19 11:19
== END 2019-06-12 13:30 | DRG 871 ==
LOC: ED 15:06 → 2S 18:09 → SUATTDRO 18:09 → 2S 19:15

== ENCOUNTER 2020-09-21 11:45 | Observation (INO) ==
[2020-09-21] MEDS ORDERED: SODIUM CHLORIDE 0.9% 500 ML IV ONE (12:25)
[2020-09-21 13:05] LABS: Hematocrit (blood only) 27.3 % (37-47); Hemoglobin 7.8 g/dL (12.0-16.0); Mean Corpuscular Hemoglobin 19.9 pg (25-34); Mean Corpuscular Hgb Conc 28.6 g/dL (32-36); Mean Corpuscular Volume 69.8 fL (80-100); Mean Platelet Volume 9.7 fL (7.4-10.4); Platelet Count 230 K/uL (130-400); RDW Coefficient of Variation 19.8 % (11.5-14.5); RDW Standard Deviation 50.3 fL (36.4-46.3); Red Blood Count 3.91 M/uL (4.2-5.4); White Blood Count 7.53 K/uL (4.8-10.8)
--- NOTE | 2020-09-21 13:08 | XRay Report ---
XR chest 1V portable HISTORY: Atypical Chest Pain COMPARISON: Chest 05/09/2020. FINDINGS: Rotated study. No pneumothorax. No pleural effusions. The cardiac silhouette remains enlarg ed. There are low lung volumes. No focal lung consolidations to suggest pneumonia. No evidence for pu lmonary edema. Right tracheal deviation remains unchanged. This favors a left-sided thyroid goiter gi dafne the long-term stability. IMPRESSION: No significant change compared to the prior study. No acute process. Stable cardiomegaly. ACT 112: Negative or not required by law. Electronically signed by: Ori Adhikari M.D. 09/21/2020 1:07 PM
[2020-09-21 13:20] LABS: Basophils # (auto) 0.03 K/uL (0-0.2); Basophils % (auto) 0.4 %; Eosinophils # (auto) 0.53 K/uL (0-0.5); Hypochromasia Present; Immature Granulocytes # (auto) 0.02 K/uL (0.00-0.02); Immature Granulocytes % (auto) 0.3 %; Lymphocytes # (auto) 1.62 K/uL (1.2-3.4); Lymphocytes % (auto) 21.5 %; Microcytosis Present; Monocytes # (auto) 0.59 K/uL (0.11-0.59); Monocytes % (auto) 7.8 %; Neutrophils # (auto) 4.74 K/uL (1.4-6.5); Ovalocytes 1+
[2020-09-21 13:24] LABS: Alanine Aminotransferase 22 U/L (12-78); Albumin Level 3.2 gm/dl (3.4-5.0); Aspartate Aminotransferase 16 U/L (15-37); BUN Creatinine Ratio 18.9 (10-20); Bilirubin Direct < 0.1 mg/dl (0-0.2); Blood Urea Nitrogen 25 mg/dl (7-18); Calcium 8.9 mg/dl (8.5-10.1); Carbon Dioxide 25 mmol/L (21-32); Chloride 113 mmol/L (98-107); Creatinine Clr Calc Pharmacy 37.5 ml/min; Est GFR (African American) 43.9; Est GFR (Non-African American) 37.9; Glucose 145 mg/dl (70-99); Lipase 135 U/L (73-393); Magnesium 1.6 mg/dl (1.8-2.4); Potassium 5.1 mmol/L (3.5-5.1); Sodium 143 mmol/L (136-145)
[2020-09-21 13:32] LABS: Albumin Globulin Ratio 0.8 (0.9-2); Alkaline Phosphatase 65 U/L (45-117); Bilirubin,Total 0.4 mg/dl (0.2-1); Creatine Kinase 126 U/L (26-192); Globulin 3.8 gm/dl (2.5-4.0); Phosphorus 4.3 mg/dl (2.5-4.9); Troponin I < 0.015 ng/ml (0-0.045)
--- NOTE | 2020-09-21 13:36 | Emergency Department Note ---
Impression & Plan Hypomagnesemia, CKD (chronic kidney disease), stage III, Iron deficiency anemia ED Provider Note NAME: SHIRLEY TREVIZO AGE: 79 SEX: F ARRIVES VIA: Walk-In INFORMANT: Patient, ED PROVIDER(S): Monico Clodu MD CHIEF COMPLAINT: weakness PLAN: Disposition: Admit MEDICAL DECISION MAKING: The patient is a pleasant 79-year-old woman with a past medical history of CKD, diastolic dysfunction, GERD, type 2 diabetes, CAD department accompanied by her with ongoing and worsening generalized weakness where it has reached a point where she is unable to walk and has evolved over the past 4-5 days. She denies any recent fevers, chills, cough, congestion, GI or symptoms, she denies bloody or black stools. Normally walks with a walker but is unable to do this. She had a minor fall approximately 5 days ago but did not hit her head. They report she had a similar episode in 2019 where she had to go to rehab. On arrival the patient is fatigued appearing in no acute distress, afebrile stable vital signs. She appears clinically dry. She exhibits generalized weakness in all extremities without any focal deficits. Her reflexes are within normal limits. There is no clonus. EKG without overt acute ischemia. CXR negative for acute cardiopulmonary process. WBC and platelets within normal limits. H/H 7.8/27.3 without recent values for comparison but had a hemoglobin of 9 in May 2020. Chemistry without metabolic acidosis. Creatinine 1.3, similar to prior range of values. Magnesium 1.6 with repletion provided. LFTs unremarkable. Troponin negative/undetectable. TSH within normal limits. UA without convincing evidence of infection. COVID-19 RNA, JEFFREY was negative. CT of the head and CT of the head and neck performed and were negative for ICH, ischemia or severe narrowing or occlusion of large vessels. I did review the patient's results with her and her at the bedside. She still did not report any symptoms of GI bleeding or significant bleeding otherwise. A rectal exam was performed and showed brown stool that was Hemoccult negative. Given patient's weakness which has progressed affecting her ability to ambulate she did agree to admission. Symptoms possibly related to a nemia of unclear etiology. Iron studies were ordered and are pending. Case was discussed with Renata Lake, with Dr. [facility] hospitalist who will evaluate the patient for admission. Triage Nursing notes reviewed and agree them. Additional history obtained from [facility] records Prior medical records reviewed Vital Signs: reviewed and remarkable for no significant abnormalities Differential diagnosis: Infection, dehydration, metabolic abnormality, hypo/hyperglycemia, electrolyte disturbance, anemia, hypoxia, cardiac sources, intracerebral event, toxicologic, neurologic, as well as other pathologies. ER treatment provided: See below. Diagnostics interpreted by me: ECG: Normal sinus rhythm, 79 bpm, no ectopy, no overt ST elevation or depression, QTC 444, QRS 80. Cardiac Monitoring: An order for continuous cardiac monitoring was placed and demonstrated normal sinus rhythm, 79 bpm, no ectopy. Laboratory studies: See below Imaging studies: XR chest 1V portable HISTORY: Atypical Chest Pain COMPARISON: Chest 05/09/2020. FINDINGS: Rotated study. No pneumothorax. No pleural effusions. The cardiac silhouette remains enlarged. There are low lung volumes. No focal lung consolidations to suggest pneumonia. No evidence for pulmonary edema. Right tracheal deviation remains unchanged. This favors a left-sided thyroid goiter given the long-term stability. IMPRESSION: No significant change compared to the prior study. No acute process. Stable cardiomegaly. ACT 112: Negative or not required by law. -- CT head/brain wo con CLINICAL HISTORY: weakness COMPARISON STUDY: Noncontrast head CT dated 05/09/2020 TECHNIQUE: Axial CT of the brain is performed from the vertex to the skull base. IV contrast was not administered for this examination. A dose lowering technique was utilized adhering to the principles of ALARA. CT DOSE: FINDINGS: No intra or extra-axial mass lesions are visualized. There is no CT evidence of acute cortical infarction. There is no evidence of midline shift. There is no acute hemorrhage. No calvarial fractures are visualized. There are patchy white matter hypodensities likely on a small vessel basis. There are bilateral cerebellar basal ganglia calcifications. There is no evidence of pathologic ventricular dilatation. There is no evidence of acute sinusitis IMPRESSION: No acute intracranial findings ACT 112: Negative or not required by law. -- CT ANGIOGRAM OF THE BRAIN; CT ANGIOGRAM OF THE NECK CLINICAL HISTORY: Generalized weakness. Leg pain. COMPARISON STUDY: Unenhanced CT of the brain performed concurrently on 09/21/2020. TECHNIQUE: Following the IV administration of 120 of Optiray 320, CT angiogram of the head and neck was performed from the aortic arch to the vertex. Images are reviewed in the axial, sagittal, and coronal planes. 3-D MIPS images are created and assessed. IV contrast was administered without complication. All measurements were calculated based on NASCET criteria. A dose lowering technique was utilized adhering to the principles of ALARA. CT DOSE: 1091.35 mGy.cm FINDINGS: Brain parenchyma: There is age-related involutional change noting moderate subcortical and periventricular microangiopathic disease. There is no hemorrhage, mass effect, or evidence of acute territorial ischemia by CT criteria. There is no evidence of enhancing mass lesion on the angiogram phase images. The ventricles, sulci, and cisterns are normal in configuration. Mineralization is noted in the basal ganglia and cerebellum. Aldrich-white matter differentiation is preserved. No extra-axial fluid collection is seen. Thoracic aorta: There is atherosclerotic calcification of the thoracic aorta. Visualized portions of the thoracic aorta are normal in caliber. The aortic arch demonstrates standard 3-vessel anatomy. Right carotid arterial system: The right common carotid artery is widely patent, as are the right internal and external carotid arteries. Calcified plaque is noted in the carotid bulb. Left carotid arterial system: The left common carotid artery is widely patent, as are the left internal and external carotid arteries. Calcified plaque is noted in the carotid bulb. Vertebral arteries: The vertebral arteries are widely patent bilaterally noting left-sided dominance. Subclavian arteries: Widely patent bilaterally. Intracranial vasculature: There is atherosclerotic calcification of the cavernous carotid and vertebral arteries The internal carotid arteries are patent at the skull base, as are the anterior and middle cerebral arteries bilaterally. The vertebrobasilar system and posterior cerebral arteries are widely patent. The left vertebral artery is dominant. There is no aneurysm, high-grade stenosis, or focal vessel cut off seen throughout the intracranial circulation. Jugular veins: Patent bilaterally. Dural sinuses: Patent. Lung apices: Emphysematous change is noted at the apices. Upper lobe lung parenchyma is otherwise clear as imaged. Soft tissues: The visualized pharyngeal soft tissues are normal in appearance noting angiographic phase technique. The oropharyngeal airway appears widely patent. The thyroid gland is markedly enlarged and heterogeneous consistent with a multinodular goiter. This extends into the superior mediastinum and causes rightward deviation of the trachea. The salivary glands are normal in abdelrahman earance. No cervical lymphadenopathy is seen. Skeletal structures: The skeletal structures are osteopenic. The calvarium appears intact. The cervical spine is maintained noting advanced multilevel sp ondylosis. No lytic or blastic lesion is seen. Orbits: The bony orbits are intact. Orbital contents are normal as visualized noting bilateral ocular lens implants. Sinuses and mastoids: The paranasal sinuses are clear. The mastoid air cells are well pneumatized. IMPRESSION: 1. There is no evidence of hemorrhage, mass effect, or acute territorial ischemia noting angiographic phase technique. 2. Unremarkable CT angiogram of the neck. 3. Unremarkable CT angiogram of the brain. 4. Multinodular goiter. ACT 112: Negative or not required by law. Electronically signed by: Jerry Heart M.D. 09/21/2020 3:03 PM Consultation(s): Case was discussed with Renata Lake PAC, with Dr. Juan Luis Yanez hospitalist who will evaluate the patient for admission. HPI: The patient is a pleasant 79-year-old woman with a past medical history of CKD, diastolic dysfunction, GERD, type 2 diabetes, CAD department accompanied by her with ongoing and worsening generalized weakness where it has reached a point where she is unable to walk and has evolved over the past 4-5 days. She denies any recent fevers, chills, cough, congestion, GI or symptoms, she denies bloody or black stools. Normally walks with a walker but is unable to do this. She had a minor fall approximately 5 days ago but did not hit her head. They report she had a similar episode in 2019 where she had to go to rehab. ROS: See above HPI for pertinent positives & negatives. A total of 10 systems reviewed and were otherwise negative. PAST MEDICAL HISTORY:See Below PAST SURGICAL HISTORY:See Below FAMILY HISTORY:See Below SOCIAL HISTORY:See Below HOME MEDICATIONS:See Below ALLERGIES:See Below VITALS:See Below PHYSICAL EXAMINATION: GENERAL: Awake, alert, fatigued-appearing, in no distress HENT: Normocephalic, atraumatic. Oropharynx with dry mucous membranes and otherwise unremarkable. EYES: Normal conjunctiva. Sclera non-icteric. NECK: Supple. No nuchal rigidity. FROM. No JVD. RESPIRATORY: Clear to auscultation. CARDIAC: Regular rate, normal rhythm. Extremities warm and well perfused. Pulses equal. ABDOMEN: Soft, non-distended. No tenderness to palpation. No rebound or guarding. No masses. RECTAL: Brown stool Hemoccult negative. MUSCULOSKELETAL: Chest examination reveals no tenderness. The back is s ymmetrical on inspection without obvious abnormality. There is no CVA tenderness to palpation. No joint edema. LOWER EXTREMITIES: Calves are equal size bilaterally and non-tender. No edema. No discoloration. NEURO: No focal sensory or motor deficits noted. Chronic dysarthria. 4/5 strength and SILT x 4 extremities. DTRs wnl. No clonus. SKIN: No rash or jaundice noted. Monico Cloud MD Past Med/Surg History Medical History Anxiety CKD (chronic kidney disease), stage III Diabetes mellitus, type II Dry eye syndrome Dyslipidemia GERD (gastroesophageal reflux disease) Hypertension Kidney stones Osteoarthritis Peripheral neuropathy Surgical History History of appendectomy History of carpal tunnel release left History of cataract surgery RT/LEFT History of discectomy LUMBAR (TOTAL 2 LUMBAR DISCECTOMY) History of hysterectomy History of tooth extraction Hx of colonoscopy with polypectomy Hx of eye surgery LASER PROCEDURE S/P cystoscopy with ureteral stent placement 05/13/19 MAC Family History Brother Family history of diabetes mellitus Other Cancer Heart disease Kidney disease Social History Smoking Status: Former smoker Tobacco Type: Cigarettes Smoking End Date: 1987; Second Hand Exposure: No; Hx Alcohol Use: No Hx Substance Use: No Preferred Language: Persian Communication Ability: Effective Lead Maintenance Technician Required: No Beliefs That Will Affect Care: None marital status: Current Living Situation: Spouse current occupational status: retired Feels Safe at Home: Yes Assistive Devices: Denture - Upper, Denture - Lower and Walker Allergies Allergies Allergy/AdvReac Type Severity Reaction Status Date / Time oxycodone Allergy Intermediate Sedation Verified 09/21/20 17:29 Home Meds Home Medications Medication Instructions Recorded Confirmed carvedilol 25 mg PO BID #0 10/15/13 09/21/20 metformin 1,000 mg PO DAILY@0900 #0 10/15/13 09/21/20 metformin 500 mg PO BID #0 10/15/13 09/21/20 omega-3 fatty acids 2,000 mg PO DAILY #0 10/15/13 09/21/20 omeprazole 20 mg PO QAM #0 10/15/13 09/21/20 coenzyme Q10 100 mg PO DAILY #0 01/04/16 09/21/20 lorazepam 0.5 mg PO TID PRN #0 02/21/16 09/21/20 atorvastatin 40 mg PO QAM #0 04/09/17 09/21/20 dicyclomine 10 mg PO QID PRN #0 04/09/17 09/21/20 metronidazole [Metrogel] 1 applic TOPICAL BID PRN 12/09/18 09/21/20 valerian root 100 mg PO DAILY 12/09/18 09/21/20 Slow-Mag 250 mg PO DAILY 05/12/19 09/21/20 Systane Ultra 1 drp OPHTHALMIC (EYE) BID PRN 05/12/19 09/21/20 cholecalciferol (vitamin D3) 50,000 unit PO MONTHLY 05/12/19 09/21/20 camphor-methyl salicyl-menthol 1 patch TOPICAL DAILY 09/21/20 09/21/20 [Salonpas] furosemide 20 mg PO DAILY 09/21/20 09/21/20 lisinopril 20 mg PO DAILY 09/21/20 09/21/20 pregabalin 150 mg PO BID 09/21/20 09/21/20 vitamin B complex 1 tab PO DAILY 09/21/20 09/21/20 Previous Rx's Medication Instructions Recorded nystatin 1 applic TOPICAL BID #15 g 05/09/20 Results & Data (ED) Vital Signs Vital Signs - 24 hr 09/21/20 11:49 09/21/20 13:06 09/21/20 13:57 Temperature 36.9 C Temperature Source Temporal Artery Scan Pulse Rate 83 Pulse Rate [Left Apical] 85 80 Pulse Rate from SpO2 Sensor Pulse Rhythm [Left Apical] Regular Regular Pulse Strength [Left Apical] Normal Normal Respiratory Rate 20 19 20 Respiratory Effort / Characteristics Non-Labored Spontaneous Non-Labored Spontaneous Respiratory Depth Normal Normal Respiratory Pattern Regular Regular Blood Pressure 100/49 L Blood Pressure [Left Arm] 142/73 H 159/58 H Blood Pressure Mean 66 Blood Pressure Mean [Left Arm] 96 91 Blood Pressure Position [Left Arm] Lying Lying Pulse Oximetry 94 94 93 Oxygen Delivery Method Room Air Room Air Room Air Sepsis Recent Fever Within 48 Hours No Sepsis New/Unexplained Change in Mental Status No Sepsis Action Taken by Nursing No Action Required 09/21/20 17:02 09/21/20 17:03 09/21/20 17:30 Temperature Temperature Source Pulse Rate 82 79 79 Pulse Rate [Left Apical] Pulse Rate from SpO2 Sensor 79 79 Pulse Rhythm [Left Apical] Pulse Strength [Left Apical] Respiratory Rate 29 H 20 19 Respiratory Effort / Characteristics Respiratory Depth Respiratory Pattern Blood Pressure 174/77 H Blood Pressure [Left Arm] Blood Pressure Mean 109 Blood Pressure Mean [Left Arm] Blood Pressure Position [Left Arm] Pulse Oximetry 88 L 90 Oxygen Delivery Method Sepsis Recent Fever Within 48 Hours Sepsis New/Unexplained Change in Mental Status Sepsis Action Taken by Nursing 09/21/20 17:31 09/21/20 18:00 09/21/20 18:30 Temperature Temperature Source Pulse Rate 80 82 79 Pulse Rate [Left Apical] Pulse Rate from SpO2 Sensor 81 82 Pulse Rhythm [Left Apical] Pulse Strength [Left Apical] Respiratory Rate 22 19 20 Respiratory Effort / Characteristics Respiratory Depth Respiratory Pattern Blood Pressure 179/76 H 187/77 H Blood Pressure [Left Arm] Blood Pressure Mean 110 113 Blood Pressure Mean [Left Arm] Blood Pressure Position [Left Arm] Pulse Oximetry 92 90 Oxygen Delivery Method Sepsis Recent Fever Within 48 Hours Sepsis New/Unexplained Change in Mental Status Sepsis Action Taken by Nursing 09/21/20 18:31 09/21/20 19:00 09/21/20 19:30 Temperature Temperature Source Pulse Rate 85 78 79 Pulse Rate [Left Apical] Pulse Rate from SpO2 Sensor 85 74 Pulse Rhythm [Left Apical] Pulse Strength [Left Apical] Respiratory Rate 25 H 20 21 Respiratory Effort / Characteristics Respiratory Depth Respiratory Pattern Blood Pressure 166/111 H 185/71 H Blood Pressure [Left Arm] Blood Pressure Mean 129 109 Blood Pressure Mean [Left Arm] Blood Pressure Position [Left Arm] Pulse Oximetry 94 90 Oxygen Delivery Method Sepsis Recent Fever Within 48 Hours Sepsis New/Unexplained Change in Mental Status Sepsis Action Taken by Nursing 09/21/20 19:31 Temperature Temperature Source Pulse Rate 77 Pulse Rate [Left Apical] Pulse Rate from SpO2 Sensor 76 Pulse Rhythm [Left Apical] Pulse Strength [Left Apical] Respiratory Rate 16 Respiratory Effort / Characteristics Respiratory Depth Respiratory Pattern Blood Pressure 171/91 H Blood Pressure [Left Arm] Blood Pressure Mean 117 Blood Pressure Mean [Left Arm] Blood Pressure Position [Left Arm] Pulse Oximetry 92 Oxygen Delivery Method Sepsis Recent Fever Within 48 Hours Sepsis New/Unexplained Change in Mental Status Sepsis Action Taken by Nursing Laboratory Data Attestation: I reviewed the patient's lab results. Result diagrams: 09/21/20 12:33 09/21/20 12:33 Lab Results 09/21/20 09/21/20 09/21/20 Range/Units 12:33 12:33 12:33 WBC 7.53 (4.8-10.8) K/uL RBC 3.91 L (4.2-5.4) M/uL Hgb 7.8 L (12.0-16.0) g/dL Hct 27.3 L (37-47) % MCV 69.8 L (80-100) fL MCH 19.9 L (25-34) pg MCHC 28.6 L (32-36) g/dL RDW Std Deviation 50.3 H (36.4-46.3) fL RDW Coeff of Pia 19.8 H (11.5-14.5) % Plt Count 230 (130-400) K/uL MPV 9.7 (7.4-10.4) fL Immature Gran % (Auto) 0.3 % Neut % (Auto) 63.0 % Lymph % (Auto) 21.5 % [place] % (Auto) 7.8 % Eos % (Auto) 7.0 % Baso % (Auto) 0.4 % Reticulocyte % (Auto) (0.5-2.0) % Neut # (Auto) 4.74 (1.4-6.5) K/uL Lymph # (Auto) 1.62 (1.2-3.4) K/uL [place] # (Auto) 0.59 (0.11-0.59) K/uL Eos # (Auto) 0.53 H (0-0.5) K/uL Baso # (Auto) 0.03 (0-0.2) K/uL Reticulocyte # (0.02-0.10) 10^6/uL Immature Gran # (Auto) 0.02 (0.00-0.02) K/uL Hypochromasia Present Microcytosis Present Ovalocytes 1+ Sodium 143 (136-145) mmol/L Potassium 5.1 (3.5-5.1) mmol/L Chloride 113 H (98-107) mmol/L Carbon Dioxide 25 (21-32) mmol/L Anion Gap 5.0 (3-11) BUN 25 H (7-18) mg/dl Creatinine 1.34 H (0.6-1.2) mg/dl Est Cr Clr Drug Dosing 37.5 ml/min Est GFR ( Amer) 43.9 Est GFR (Non-Af Amer) 37.9 BUN/Creatinine Ratio 18.9 (10-20) Glucose 145 H (70-99) mg/dl Calcium 8.9 (8.5-10.1) mg/dl Phosphorus 4.3 (2.5-4.9) mg/dl Magnesium 1.6 L (1.8-2.4) mg/dl Iron 21 L (35-150) mcg/dl TIBC 395 (250-450) mcg/dl Transferrin 310 (200-360) mg/dl Ferritin 4.2 L (8-388) ng/ml Total Bilirubin 0.4 (0.2-1) mg/dl Direct Bilirubin < 0.1 (0-0.2) mg/dl AST 16 (15-37) U/L ALT 22 (12-78) U/L Alkaline Phosphatase 65 (45-117) U/L Total Creatine Kinase 126 (26-192) U/L Troponin I < 0.015 (0-0.045) ng/ml Total Protein 7.0 (6.4-8.2) gm/dl Albumin 3.2 L (3.4-5.0) gm/dl Globulin 3.8 (2.5-4.0) gm/dl Albumin/Globulin Ratio 0.8 L (0.9-2) Lipase 135 (73-393) U/L TSH 0.520 (0.300-4.500) uIu/ml Urine Color Urine Appearance (Clear) Urine pH (4.5-7.5) Ur Specific [place] (1.000-1.030) Urine Protein (Negative) Urine Glucose (UA) (Negative) Urine Ketones (Negative) Urine Blood (Negative) Urine Nitrite (Negative) Urine Bilirubin (Negative) Urine Urobilinogen (Negative) Ur Leukocyte Esterase (Negative) Urine WBC (Auto) (0-5) /hpf Urine RBC (Auto) (0-4) /hpf U Hyaline Cast (Auto) (0-5) /lpf U Epithel Cells (Auto) (0-5) /lpf Urine Bacteria (Auto) (Negative) COVID-19 Eval Order SARS-CoV-2, RNA, NAAT (NEGATIVE) Blood Type Antibody Screen 09/21/20 09/21/20 09/21/20 Range/Units 12:33 13:39 14:28 WBC (4.8-10.8) K/uL RBC (4.2-5.4) M/uL Hgb (12.0-16.0) g/dL Hct (37-47) % MCV (80-100) fL MCH (25-34) pg MCHC (32-36) g/dL RDW Std Deviation (36.4-46.3) fL RDW Coeff of Pia (11.5-14.5) % Plt Count (130-400) K/uL MPV (7.4-10.4) fL Immature Gran % (Auto) % Neut % (Auto) % Lymph % (Auto) % [place] % (Auto) % Eos % (Auto) % Baso % (Auto) % Reticulocyte % (Auto) 1.6 (0.5-2.0) % Neut # (Auto) (1.4-6.5) K/uL Lymph # (Auto) (1.2-3.4) K/uL [place] # (Auto) (0.11-0.59) K/uL Eos # (Auto) (0-0.5) K/uL Baso # (Auto) (0-0.2) K/uL Reticulocyte # 0.06 (0.02-0.10) 10^6/uL Immature Gran # (Auto) (0.00-0.02) K/uL Hypochromasia Microcytosis Ovalocytes Sodium (136-145) mmol/L Potassium (3.5-5.1) mmol/L Chloride (98-107) mmol/L Carbon Dioxide (21-32) mmol/L Anion Gap (3-11) BUN (7-18) mg/dl Creatinine (0.6-1.2) mg/dl Est Cr Clr Drug Dosing ml/min Est GFR ( Amer) Est GFR (Non-Af Amer) BUN/Creatinine Ratio (10-20) Glucose (70-99) mg/dl Calcium (8.5-10.1) mg/dl Phosphorus (2.5-4.9) mg/dl Magnesium (1.8-2.4) mg/dl Iron (35-150) mcg/dl TIBC (250-450) mcg/dl Transferrin (200-360) mg/dl Ferritin (8-388) ng/ml Total Bilirubin (0.2-1) mg/dl Direct Bilirubin (0-0.2) mg/dl AST (15-37) U/L ALT (12-78) U/L Alkaline Phosphatase (45-117) U/L Total Creatine Kinase (26-192) U/L Troponin I (0-0.045) ng/ml Total Protein (6.4-8.2) gm/dl Albumin (3.4-5.0) gm/dl Globulin (2.5-4.0) gm/dl Albumin/Globulin Ratio (0.9-2) Lipase (73-393) U/L TSH (0.300-4.500) uIu/ml Urine Color Dark Yellow Urine Appearance Clear (Clear) Urine pH 5.0 (4.5-7.5) Ur Specific [place] 1.015 (1.000-1.030) Urine Protein Negative (Negative) Urine Glucose (UA) Negative (Negative) Urine Ketones Negative (Negative) Urine Blood Negative (Negative) Urine Nitrite Negative (Negative) Urine Bilirubin Negative (Negative) Urine Urobilinogen Negative (Negative) Ur Leukocyte Esterase Trace H (Negative) Urine WBC (Auto) 1-5 (0-5) /hpf Urine RBC (Auto) 0-4 (0-4) /hpf U Hyaline Cast (Auto) 5-10 H (0-5) /lpf U Epithel Cells (Auto) >30 H (0-5) /lpf Urine Bacteria (Auto) Negative (Negative) COVID-19 Eval Order Cov[facility]19 [facility] [place] [facility] SARS-CoV-2, RNA, NAAT (NEGATIVE) Blood Type Antibody Screen 09/21/20 09/21/20 Range/Units 14:28 16:25 WBC (4.8-10.8) K/uL RBC (4.2-5.4) M/uL Hgb (12.0-16.0) g/dL Hct (37-47) % MCV (80-100) fL MCH (25-34) pg MCHC (32-36) g/dL RDW Std Deviation (36.4-46.3) fL RDW Coeff of Pia (11.5-14.5) % Plt Count (130-400) K/uL MPV (7.4-10.4) fL Immature Gran % (Auto) % Neut % (Auto) % Lymph % (Auto) % [place] % (Auto) % Eos % (Auto) % Baso % (Auto) % Reticulocyte % (Auto) (0.5-2.0) % Neut # (Auto) (1.4-6.5) K/uL Lymph # (Auto) (1.2-3.4) K/uL [place] # (Auto) (0.11-0.59) K/uL Eos # (Auto) (0-0.5) K/uL Baso # (Auto) (0-0.2) K/uL Reticulocyte # (0.02-0.10) 10^6/uL Immature Gran # (Auto) (0.00-0.02) K/uL Hypochromasia Microcytosis Ovalocytes Sodium (136-145) mmol/L Potassium (3.5-5.1) mmol/L Chloride (98-107) mmol/L Carbon Dioxide (21-32) mmol/L Anion Gap (3-11) BUN (7-18) mg/dl Creatinine (0.6-1.2) mg/dl Est Cr Clr Drug Dosing ml/min Est GFR ( Amer) Est GFR (Non-Af Amer) BUN/Creatinine Ratio (10-20) Glucose (70-99) mg/dl Calcium (8.5-10.1) mg/dl Phosphorus (2.5-4.9) mg/dl Magnesium (1.8-2.4) mg/dl Iron (35-150) mcg/dl TIBC (250-450) mcg/dl Transferrin (200-360) mg/dl Ferritin (8-388) ng/ml Total Bilirubin (0.2-1) mg/dl Direct Bilirubin (0-0.2) mg/dl AST (15-37) U/L ALT (12-78) U/L Alkaline Phosphatase (45-117) U/L Total Creatine Kinase (26-192) U/L Troponin I (0-0.045) ng/ml Total Protein (6.4-8.2) gm/dl Albumin (3.4-5.0) gm/dl Globulin (2.5-4.0) gm/dl Albumin/Globulin Ratio (0.9-2) Lipase (73-393) U/L TSH (0.300-4.500) uIu/ml Urine Color Urine Appearance (Clear) Urine pH (4.5-7.5) Ur Specific [place] (1.000-1.030) Urine Protein (Negative) Urine Glucose (UA) (Negative) Urine Ketones (Negative) Urine Blood (Negative) Urine Nitrite (Negative) Urine Bilirubin (Negative) Urine Urobilinogen (Negative) Ur Leukocyte Esterase (Negative) Urine WBC (Auto) (0-5) /hpf Urine RBC (Auto) (0-4) /hpf U Hyaline Cast (Auto) (0-5) /lpf U Epithel Cells (Auto) (0-5) /lpf Urine Bacteria (Auto) (Negative) COVID-19 Eval Order SARS-CoV-2, RNA, NAAT NEGATIVE (NEGATIVE) Blood Type O Positive Antibody Screen NEGATIVE Administered Medications Discontinued Medications Sodium Chloride (Nss) 500 mls @ 999 mls/hr IV .Q31M ONE Stop: 09/21/20 12:55 Last Infusion: 09/21/20 13:56 Dose: 0 mls/hr Documented by: [id number] Admin: 09/21/20 13:09 Dose: 999 mls/hr Documented by: [id number] Magnesium Sulfate/Dextrose (Magnesium Sulfate / D5w) 1 gm in 100 mls @ 100 mls/hr IV Q1H URI Stop: 09/21/20 16:25 Last Infusion: 09/21/20 17:01 Dose: 0 mls/hr Documented by: [id number] Admin: 09/21/20 16:01 Dose: 100 mls/hr Documented by: [id number] Infusion: 09/21/20 15:54 Dose: 100 mls/hr Documented by: [id number] Admin: 09/21/20 14:54 Dose: 100 mls/hr Documented by: [id number] Ioversol (Optiray 320 125ml) 120 ml IV ONCE ONE Stop: 09/21/20 14:35 Last Admin: 09/21/20 14:35 Dose: 120 ml Documented by: [id number] Discharge Plan Visit Data Chief Complaint: Leg Weakness, Bilateral Stated Complaint: BILATERAL LEG PAIN,NEUROPATHY ED Provider: Monico Cloud Discharge Problem: Hypomagnesemia, CKD (chronic kidney disease), stage III, Iron deficiency anemia Discharge Instructions Interventions: ED Discharge Assessment Last Done: 09/21/20 20:04
[2020-09-21 13:52] LABS: Appearance Urine Clear (Clear); Bacteria Urine Automated Negative (Negative); Bilirubin Urine Negative (Negative); Blood Urine Negative (Negative); Color Urine Dark Yellow; Epithelial Cell Urine Auto >30 /lpf (0-5); Glucose Urine UA Negative (Negative); Ketones Urine Negative (Negative); Leukocyte Esterase Urine Trace (Negative); Nitrite Urine Negative (Negative); Protein Urine Negative (Negative); RBC Urine Automated 0-4 /hpf (0-4); Specific Gravity Urine 1.015 (1.000-1.030); Urobilinogen Urine Negative (Negative)
[2020-09-21] MEDS ORDERED: OPTIRAY 320 125ml IV ONE (14:34)
--- NOTE | 2020-09-21 14:52 | CT Scan Report ---
CT head/brain wo con CLINICAL HISTORY: weakness COMPARISON STUDY: Noncontrast head CT dated 05/09/2020 TECHNIQUE: Axial CT of the brain is performed from the vertex to the skull base. IV contrast was not administered for this examination. A dose lowering technique was utilized adhering to the principles of ALARA. CT DOSE: FINDINGS: No intra or extra-axial mass lesions are visualized. There is no CT evidence of acute cortical infarc tion. There is no evidence of midline shift. There is no acute hemorrhage. No calvarial fractures ar e visualized. There are patchy white matter hypodensities likely on a small vessel basis. There are bilateral cereb ellar basal ganglia calcifications. There is no evidence of pathologic ventricular dilatation. There is no evidence of acute sinusitis IMPRESSION: No acute intracranial findings ACT 112: Negative or not required by law. Electronically signed by: Babatunde Morin M.D. 09/21/2020 2:51 PM
[2020-09-21] MEDS: MAGNESIUM SULFATE / D5W 1 GM/100 ML BAG IV SCH ×2 (14:54→16:01)
--- NOTE | 2020-09-21 15:05 | CT Scan Report ---
CT ANGIOGRAM OF THE BRAIN; CT ANGIOGRAM OF THE NECK CLINICAL HISTORY: Generalized weakness. Leg pain. COMPARISON STUDY: Unenhanced CT of the brain performed concurrently on 09/21/2020. TECHNIQUE: Following the IV administration of 120 of Optiray 320, CT angiogram of the head and neck w as performed from the aortic arch to the vertex. Images are reviewed in the axial, sagittal, and tatiana nal planes. 3-D MIPS images are created and assessed. IV contrast was administered without complicati on. All measurements were calculated based on NASCET criteria. A dose lowering technique was utilize d adhering to the principles of ALARA. CT DOSE: 1091.35 mGy.cm FINDINGS: Brain parenchyma: There is age-related involutional change noting moderate subcortical and periventri cular microangiopathic disease. There is no hemorrhage, mass effect, or evidence of acute territorial ischemia by CT criteria. There is no evidence of enhancing mass lesion on the angiogram phase images . The ventricles, sulci, and cisterns are normal in configuration. Mineralization is noted in the bas al ganglia and cerebellum. Aldrich-white matter differentiation is preserved. No extra-axial fluid colle ction is seen. Thoracic aorta: There is atherosclerotic calcification of the thoracic aorta. Visualized portions of the thoracic aorta are normal in caliber. The aortic arch demonstrates standard 3-vessel anatomy. Right carotid arterial system: The right common carotid artery is widely patent, as are the right int ernal and external carotid arteries. Calcified plaque is noted in the carotid bulb. Left carotid arterial system: The left common carotid artery is widely patent, as are the left marketing summer intern al and external carotid arteries. Calcified plaque is noted in the carotid bulb. Vertebral arteries: The vertebral arteries are widely patent bilaterally noting left-sided dominance. Subclavian arteries: Widely patent bilaterally. Intracranial vasculature: There is atherosclerotic calcification of the cavernous carotid and vertebr al arteries The internal carotid arteries are patent at the skull base, as are the anterior and middl e cerebral arteries bilaterally. The vertebrobasilar system and posterior cerebral arteries are widel y patent. The left vertebral artery is dominant. There is no aneurysm, high-grade stenosis, or focal vessel cut off seen throughout the intracranial circulation. Jugular veins: Patent bilaterally. Dural sinuses: Patent. Lung apices: Emphysematous change is noted at the apices. Upper lobe lung parenchyma is otherwise snow ar as imaged. Soft tissues: The visualized pharyngeal soft tissues are normal in appearance noting angiographic pha se technique. The oropharyngeal airway appears widely patent. The thyroid gland is markedly enlarged and heterogeneous consistent with a multinodular goiter. This extends into the superior mediastinum a nd causes rightward deviation of the trachea. The salivary glands are normal in appearance. No cervic al lymphadenopathy is seen. Skeletal structures: The skeletal structures are osteopenic. The calvarium appears intact. The cervic al spine is maintained noting advanced multilevel spondylosis. No lytic or blastic lesion is seen. Orbits: The bony orbits are intact. Orbital contents are normal as visualized noting bilateral ocular lens implants. Sinuses and mastoids: The paranasal sinuses are clear. The mastoid air cells are well pneumatized. IMPRESSION: 1. There is no evidence of hemorrhage, mass effect, or acute territorial ischemia noting angiographic phase technique. 2. Unremarkable CT angiogram of the neck. 3. Unremarkable CT angiogram of the brain. 4. Multinodular goiter. ACT 112: Negative or not required by law. Electronically signed by: Jerry Heart M.D. 09/21/2020 3:03 PM
[2020-09-21 16:33] LABS: Reticulocyte % 1.6 % (0.5-2.0); Reticulocytes # 0.06 10^6/uL (0.02-0.10)
[2020-09-21 16:44] LABS: Ferritin 4.2 ng/ml (8-388)
--- NOTE | 2020-09-21 16:48 | History & Physical Report ---
Date of Service September 21, 2020 Assessment & Plan (1) Generalized weakness: This is a 79yo F with a PMH of DM II, HTN, DLD, chronic diastolic heart failure, CKD III, dementia and other medical problems listed below who presents with weakness and recent fall earlier this week. Likely multifactorial in setting of downtrending anemia, hypomagnesemia, chronic back pain, diabetic neuropathy of feet Also likely a component of deconditioning Remote history of back surgeries -CT lumbar spine to better visualize No focal neurological deficits on exam. CT head, CTA head/neck without any acute abnormalities Fall precautions PT/OT evaluation Discharge planning (2) Anemia: Hemoglobin of 7.8 (most recent hemoglobin on record was 9 in 05/26). Microcytic with MCV 69.8 Iron studies show low serum iron and ferritin, normal TIBC and transferrin No overt GI bleeding Last colonoscopy on record from 2008, presence of 1 polyp and diverticulosis Monitor CBC, type & screen ordered in ED Starting ferrous sulfate 325mg BID (3) Acute kidney injury superimposed on CKD: Cr mildly increased at 1.3 (baseline ~1) in setting of poor PO intake Given 500 NSS in ED. Will hold off on additional fluids for now Hold lisinopril and Lasix (4) Hypomagnesemia: Replacing. Repeat mag on AM labs (5) Diabetes mellitus, type II: Repeat a1c in AM. Hold home agents. SSI while in-patient. BSG AC HS (6) CAD (coronary artery disease): History of NSTEMI in 2019. No chest pain. Continue statin , beta frederick Clarify whether or not patient taking aspirin (7) Dyslipidemia: Continue statin (8) Diastolic dysfunction: Appears slightly dry clinically. Given fluid resuscitation and will hold lasix in setting of VALERIY Reassess volume status in AM (9) Hypertension: Continue carvedilol. Holding lisinopril in setting of VALERIY Optimize pain control with lidocaine patch, Tylenol DVT Ppx: SCDs for now in setting of anemia Code status: FULL PCP: Lacy Dispo: Observation med/surg. Discharge planning ordered. Patient seen in collaboration with Dr. Mcknight. Please see addendum. History of Present Illness Chief Complaint: fall, weakness Primary Care Provider: [facility] MD This is a 79yo F with a PMH of DM II, HTN, DLD, chronic diastolic heart failure, CKD III, dementia and other medical problems listed below who presents with weakness and recent fall earlier this week. Endorses progressive generalized weakness over the past few months. Has had a few wells, most recently last Friday at home by steps going up to house. Has been having ambulatory dysfunction with rollator/walker due to weakness and pain in legs. Difficult for elderly at home to manage. History of spinal surgeries in 80s with intermittent discomfort in back, no radicular component. Has diabetic neuropathy of feet. Denies fever, chills, headache, lightheadedness, headache, chest pain, SOB, nausea, vomiting, abdominal pain, dysuria, hematuria or diarrhea. History of chronic constipation but controlled with prune juice. Allergies Allergy/AdvReac Type Severity Reaction Status Date / Time oxycodone Allergy Intermediate Sedation Verified 09/21/20 17:29 Home Medications Medication Instructions Recorded Confirmed Type carvedilol 25 mg PO BID #0 10/15/13 09/21/20 History metformin 1,000 mg PO DAILY@0900 #0 10/15/13 09/21/20 History metformin 500 mg PO BID #0 10/15/13 09/21/20 History omega-3 fatty acids 2,000 mg PO DAILY #0 10/15/13 09/21/20 History omeprazole 20 mg PO QAM #0 10/15/13 09/21/20 History coenzyme Q10 100 mg PO DAILY #0 01/04/16 09/21/20 History lorazepam 0.5 mg PO TID PRN #0 02/21/16 09/21/20 History atorvastatin 40 mg PO QAM #0 04/09/17 09/21/20 History dicyclomine 10 mg PO QID PRN #0 04/09/17 09/21/20 History metronidazole [Metrogel] 1 applic TOPICAL BID PRN 12/09/18 09/21/20 History valerian root 100 mg PO DAILY 12/09/18 09/21/20 History Slow-Mag 250 mg PO DAILY 05/12/19 09/21/20 History Systane Ultra 1 drp OPHTHALMIC (EYE) BID PRN 05/12/19 09/21/20 History cholecalciferol (vitamin D3) 50,000 unit PO MONTHLY 05/12/19 09/21/20 History nystatin 1 applic TOPICAL BID #15 g 05/09/20 09/21/20 Rx camphor-methyl salicyl-menthol 1 patch TOPICAL DAILY 09/21/20 09/21/20 History [Salonpas] furosemide 20 mg PO DAILY 09/21/20 09/21/20 History lisinopril 20 mg PO DAILY 09/21/20 09/21/20 History pregabalin 150 mg PO BID 09/21/20 09/21/20 History vitamin B complex 1 tab PO DAILY 09/21/20 09/21/20 History Past Med/Surg History Medical History Anxiety CKD (chronic kidney disease), stage III Diabetes mellitus, type II Dry eye syndrome Dyslipidemia GERD (gastroesophageal reflux disease) Hypertension Kidney stones Osteoarthritis Peripheral neuropathy Surgical History History of appendectomy History of carpal tunnel release left History of cataract surgery RT/LEFT History of discectomy LUMBAR (TOTAL 2 LUMBAR DISCECTOMY) History of hysterectomy History of tooth extraction Hx of colonoscopy with polypectomy Hx of eye surgery LASER PROCEDURE S/P cystoscopy with ureteral stent placement 05/13/19 [facility] Family History Brother Family history of diabetes mellitus Other Cancer Heart disease Kidney disease Social History Smoking Status: Former smoker Tobacco Type: Cigarettes Smoking End Date: 1987; Second Hand Exposure: No; Hx Alcohol Use: No Hx Substance Use: No Preferred Language: Georgian Communication Ability: Effective 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 Physical Exam Physical Exam: Please see Dr. Mcknight's addendum for physical exam details. Results & Data Results & Data ([facility] [place]) Vital Signs (Past 12 Hours) Vital Signs Temp Pulse Pulse Resp BP BP Pulse Ox 09/21/20 13:57 80 20 159/58 H 93 09/21/20 13:06 85 19 142/73 H 94 09/21/20 11:49 36.9 C 83 20 100/49 L 94 Laboratory Results Short CBC 09/21/20 09/21/20 Range/Units 12:33 12:33 WBC 7.53 (4.8-10.8) K/uL Hgb 7.8 L (12.0-16.0) g/dL Hct 27.3 L (37-47) % Plt Count 230 (130-400) K/uL Creatinine 1.34 H (0.6-1.2) mg/dl BMP 09/21/20 12:33 Sodium 143 Potassium 5.1 Chloride 113 H Carbon Dioxide 25 BUN 25 H Creatinine 1.34 H Glucose 145 H Calcium 8.9 Cardiac Enzymes 09/21/20 Range/Units 12:33 Total Creatine Kinase 126 (26-192) U/L Troponin I < 0.015 (0-0.045) ng/ml Liver Function 09/21/20 Range/Units 12:33 Total Bilirubin 0.4 (0.2-1) mg/dl Direct Bilirubin < 0.1 (0-0.2) mg/dl AST 16 (15-37) U/L ALT 22 (12-78) U/L Alkaline Phosphatase 65 (45-117) U/L Albumin 3.2 L (3.4-5.0) gm/dl Urine 09/21/20 Range/Units 13:39 Urine Color Dark Yellow Urine Appearance Clear (Clear) Urine pH 5.0 (4.5-7.5) Ur Specific [place] 1.015 (1.000-1.030) Urine Protein Negative (Negative) Urine Glucose (UA) Negative (Negative) Diagnostic Findings Head CT: IMPRESSION: No acute intracranial findings CTA head/neck: IMPRESSION: 1. There is no evidence of hemorrhage, mass effect, or acute territorial ischemia noting angiographic phase technique. 2. Unremarkable CT angiogram of the neck. 3. Unremarkable CT angiogram of the brain. 4. Multinodular goiter. CXR: IMPRESSION: No significant change compared to the prior study. No acute process. Stable cardiomegaly. Supervising Physician Co-Signing Physician Notes Date of Service: September 21, 2020 79-year-old woman with history of DM type II, hypertension, degenerative joint disease, chronic diastolic heart failure, CKD 3, dementia who presents to the ER for worsening generalized weakness over the past few weeks to months. History and physical exam performed by me History obtained from patient and who was at bedside as detailed by Berna Charles PA-C History significant for worsening weakness, recurrent falls at home, neuropathy [numbness and tingling in both feet] and chronic back pain, remote history of back surgeries Physical exam notable for elderly woman, obese, in no obvious distress, no pedal edema, no point tenderness over palpation of the back Labs were notable for hemoglobin of 7.8 [baseline of 9], magnesium of 1.6 -Generalized weakness -Recurrent falls -Microcytic anemia -Hypomagnesemia Generalized weakness may be related to deconditioning, degenerative joint di sease, peripheral neuropathy, acute on chronic anemia EKG is normal sinus rhythm We will follow-up anemia work-up Replete magnesium and monitor Creatinine is 1.33 mildly increased from baseline of about [address] [facility] records [May 2020]. VALERIY Gets 500 cc of normal saline in ER. Hold off further IV fluids. Suspend home Lasix and lisinopril for now Monitor renal function in a.m. No signs or symptoms suggestive of infectious process Fall precautions. PT/OT evaluation. Patient and open to rehab if needed Other plans as detailed by Berna Charles PA-C
--- NOTE | 2020-09-21 17:26 | Communication Note ---
Date of Service: September 21, 2020 79-year-old woman with history of DM type II, hypertension, degenerative joint disease, chronic diastolic heart failure, CKD 3, dementia who presents to the ER for worsening generalized weakness over the past few weeks to months. History and physical exam performed by me History obtained from patient and who was at bedside as detailed by Berna Charles PA-C History significant for worsening weakness, recurrent falls at home, neuropathy [numbness and tingling in both feet] and chronic back pain, remote history of back surgeries Physical exam notable for elderly woman, obese, in no obvious distress, no pedal edema, no point tenderness over palpation of the back Labs were notable for hemoglobin of 7.8 [baseline of 9], magnesium of 1.6 -Generalized weakness -Recurrent falls -Microcytic anemia -Hypomagnesemia Generalized weakness may be related to deconditioning, degenerative joint disease, peripheral neuropathy, acute on chronic anemia EKG is normal sinus rhythm We will follow-up anemia work-up Replete magnesium and monitor Creatinine is 1.33 mildly increased from baseline of about 1 from [facility] records [May 2020]. VALERIY Gets 500 cc of normal saline in ER. Hold off further IV fluids. Suspend home Lasix and lisinopril for now Monitor renal function in a.m. No signs or symptoms suggestive of infectious process Fall precautions. PT/OT evaluation. Patient and open to rehab if needed Other plans as detailed by Berna Charles PA-C
[2020-09-21] MEDS ORDERED: DEXTROSE 50% 50 ML SYRINGE IV PRN (20:42)
[2020-09-21] MEDS ORDERED: GLUCOSE 40% GEL 15 GM TUBE PO PRN (20:42)
[2020-09-21] MEDS ORDERED: LORazepam 0.5 MG TAB PO PRN (20:42)
[2020-09-21] MEDS ORDERED: CARBOHYDRATES FOR HYPOGLYCEMIA PO PRN (20:42)
[2020-09-21] MEDS ORDERED: ACETAMINOPHEN 325 MG TAB PO PRN (20:42)
[2020-09-21] MEDS ORDERED: ONDANSETRON INJ 2 MG/ML 2 ML VIAL IV PRN (20:42)
[2020-09-21] MEDS ORDERED: POLYETHYLENE (MIRALAX) 17 GM PACK PO PRN (20:42)
[2020-09-21] MEDS ORDERED: GLUCOSE 10 TABS/TUBE PO PRN (20:42)
[2020-09-21] MEDS ORDERED: GLUCAGON FOR INJ 1 MG VIAL SQ PRN (20:42)
[2020-09-21] MEDS ORDERED: DICYCLOMINE HCL 10 MG CAP PO PRN (20:42)
[2020-09-21] MEDS ORDERED: POLYETHYLENE (MIRALAX) 17 GM PACK PO ONE (21:00)
[2020-09-21] MEDS ORDERED: ARTIFICIAL TEARS OP PRN (21:03)
[2020-09-21] MEDS: LIDOCAINE 5% 1 PATCH TD SCH (21:05)
[2020-09-21] MEDS: NYSTATIN OINT 15 GM TUBE EXT SCH (21:21)
[2020-09-21] MEDS: PREGABALIN 150 MG CAP PO SCH (21:23)
[2020-09-21] MEDS: INSULIN ASPART 100 UNITS/ML 3 ML PEN SC SCH (21:25)
[2020-09-22 06:10] LABS: Hematocrit (blood only) 28.4 % (37-47); Hemoglobin 7.9 g/dL (12.0-16.0); Mean Corpuscular Hemoglobin 19.4 pg (25-34); Mean Corpuscular Hgb Conc 27.8 g/dL (32-36); Mean Corpuscular Volume 69.8 fL (80-100); Mean Platelet Volume 9.8 fL (7.4-10.4); Platelet Count 226 K/uL (130-400); RDW Coefficient of Variation 19.5 % (11.5-14.5); RDW Standard Deviation 49.6 fL (36.4-46.3); Red Blood Count 4.07 M/uL (4.2-5.4); White Blood Count 5.72 K/uL (4.8-10.8)
[2020-09-22 06:51] LABS: BUN Creatinine Ratio 17.6 (10-20); Calcium 8.5 mg/dl (8.5-10.1); Creatinine Clr Calc Pharmacy 55.8 ml/min; Est GFR (Non-African American) 61.2; Magnesium 1.9 mg/dl (1.8-2.4); Potassium 4.4 mmol/L (3.5-5.1)
--- NOTE | 2020-09-22 07:51 | CT Scan Report ---
CT OF THE LUMBAR SPINE CLINICAL HISTORY: Back pain. Ambulatory dysfunction. COMPARISON STUDY: Lumbar spine radiographs May 15, 2017. CT of the abdomen and pelvis May. TECHNIQUE: Helical axial images of the lumbar spine were obtained. Sagittal and coronal reconstruct ions were viewed. Automated exposure control was utilized for the study. A dose lowering technique was utilized adhering to the principles of ALARA. FINDINGS: For purposes of numbering on this exam, the L5-S1 disc space is assigned to axial image 289 of 358. No acute lumbar spine fracture is noted. There is no suspicious osseous lesion. There is mar ked disc space narrowing with osteophytosis and vacuum disc phenomenon at L2-L3. There is also modera te to severe disc space narrowing at L4-L5 and L5-S1. Facet joints are intact. There is moderate mult ilevel facet arthrosis. The central canal and neural foramen are suboptimally assessed by CT. There i s suspected moderate central canal stenosis at L2-L3. Incidental note is made of contrast within the collecting systems and ureters from recent contrast-enhanced CT. There is mild aneurysmal dilatation of the abdominal aorta, measuring approximately 3.1 cm. IMPRESSION: 1. No acute lumbar spine fracture or subluxation. 2. Moderate multilevel degenerative disc disease and facet arthrosis within the lumbar spine, most pr onounced at L2-L3, as described above. Suboptimal evaluation of the central canal neural foramen give n CT technique. ACT 112: Negative or not required by law. Electronically signed by: Luis Alberto Blankenship M.D. 09/22/2020 7:50 AM
[2020-09-22 08:40] LABS: Estimated Average Glucose 166 mg/dl; Hemoglobin A1C 7.4 % (4.5-5.6)
[2020-09-22] MEDS: LIDOCAINE 5% 1 PATCH TD SCH (09:00)
[2020-09-22] MEDS: ATORVASTATIN 40 MG TAB PO SCH (09:01)
[2020-09-22] MEDS: VITAMIN B COMPLEX TAB PO SCH (09:01)
[2020-09-22] MEDS: MAGNESIUM CHLORIDE 64MG DELAYED REL TAB PO SCH (09:01)
[2020-09-22] MEDS: carvediloL 25 MG TAB PO SCH ×2 (09:02→12:36)
[2020-09-22] MEDS: PANTOprazole 40 MG TAB PO SCH (09:02)
[2020-09-22] MEDS: FERROUS SULFATE 325 MG TAB PO SCH ×2 (09:02→17:31)
[2020-09-22] MEDS: INSULIN ASPART 100 UNITS/ML 3 ML PEN SC SCH ×4 (09:04→21:48)
[2020-09-22] MEDS: PREGABALIN 150 MG CAP PO SCH ×2 (09:06→21:13)
[2020-09-22] MEDS: NYSTATIN OINT 15 GM TUBE EXT SCH ×3 (09:07→21:15)
--- NOTE | 2020-09-22 09:48 | Hospitalist Progress Note ---
Date of Service September 22, 2020 Assessment & Plan (1) Generalized weakness: 79yo F with a PMH of DM II, HTN, DLD, chronic diastolic heart failure, CKD III, dementia and other medical problems listed below who presents with weakness and recent fall earlier this week. Likely multifactorial in setting of downtrending microcytic anemia, hypomagnesemia, chronic back pain, diabetic neuropathy of feet Also likely a component of deconditioning Reports some fall at home in the past few weeks Remote history of back surgeries CT head, CTA head/neck without any acute abnormalities CT lumbar did not show any acute fracture or subluxation showed moderate multilevel degenerative disc disease Fall precautions PT/OT evaluation (2) Anemia: On admission, hemoglobin of 7.8 (most recent hemoglobin on record was 9 in 05/26). Microcytic with MCV 69.8 Iron studies show low serum iron (21) and ferritin (4.2) , normal TIBC (395) and transferrin (310) No overt GI bleeding Last colonoscopy on record from 2008, presence of 1 polyp and diverticulosis Started on ferrous sulfate 325mg BID (3) Acute kidney injury superimposed on CKD: Cr mildly increased at 1.3 (baseline ~1) in setting of poor PO intake Given 500 NSS in ED. VALERIY resolved. Creatinine is 0.9 today (4) Hypomagnesemia: Repleted Magnesium is 1.9 today (5) Diabetes mellitus, type II: A1c 7.4. Hold home agents. SSI while in-patient. BSG AC HS (6) CAD (coronary artery disease): History of NSTEMI in 2019. No chest pain. Continue statin, beta frederick Reported to RN she takes ASA at home (7) Dyslipidemia: Continue statin (8) Diastolic dysfunction: Euvolemic Will hold lasix for today and plan to resume tomorrow (9) Hypertension: Controlled Continue carvedilol. Continue holding lisinopril for now Optimize pain control with lidocaine patch, Tylenol DVT Ppx: Lovenox sq Code status: FULL Admission and Anticipated Discharge Date Admission Date: September 21, 2020 Subjective Patient seen and examined. She reports generalized weakness Reports headache this morning Also reports chronic back pain Denies chest pain, cough, shortness of breath, dyspnea Denies any leg swelling Denies nausea, vomiting, abdominal pain, diarrhea or constipation Denies dysuria, frequency, urgency Physical Exam Constitutional: + well hydrated and + obese; no acute distress Eyes: PERRL, conjunctivae normal, anicteric sclerae ENMT: external ear and nose normal, oropharynx normal Respiratory: normal respiratory effort, lungs clear to auscultation Cardiovascular: Rate/Rhythm: regular rate and regular rhythm Heart Sounds: normal S1 and normal S2 Gastrointestinal (Abdomen): normal bowel sounds, soft, nontender, no hepatosplenomegaly Musculoskeletal: No pedal edema Neurologic: PERRL, EOMI, accommodation nl, no face palsy, no dysarthria Psychiatric: A+Ox3, euthymic affect Results & Data Results & Data ([facility]) Vital Signs (Past 12 Hours) Vital Signs Temp Pulse Resp BP Pulse Ox 09/22/20 07:41 36.9 C 80 18 152/93 H 92 Laboratory Results Laboratory Results - last 24 hr 09/21/20 09/21/20 09/21/20 12:33 12:33 14:28 WBC RBC Hgb Hct MCV MCH MCHC RDW Std Deviation RDW Coeff of Pia Plt Count MPV Reticulocyte % (Auto) 1.6 Reticulocyte # 0.06 Sodium Potassium Chloride Carbon Dioxide Anion Gap BUN Creatinine Est Cr Clr Drug Dosing Est GFR ( Amer) Est GFR (Non-Af Amer) BUN/Creatinine Ratio Glucose POC Glucose Estimat Average Glucose Hemoglobin A1c Calcium Magnesium Iron 21 L TIBC 395 Transferrin 310 Ferritin 4.2 L COVID-19 Eval [facility] SARS-CoV-2, RNA, NAAT Blood Type Antibody Screen 09/21/20 09/21/20 09/21/20 14:28 16:25 20:37 WBC RBC Hgb Hct MCV MCH MCHC RDW Std Deviation RDW Coeff of Pia Plt Count MPV Reticulocyte % (Auto) Reticulocyte # Sodium Potassium Chloride Carbon Dioxide Anion Gap BUN Creatinine Est Cr Clr Drug Dosing Est GFR ( Amer) Est GFR (Non-Af Amer) BUN/Creatinine Ratio Glucose POC Glucose 188 H Estimat Average Glucose Hemoglobin A1c Calcium Magnesium Iron TIBC Transferrin Ferritin COVID-19 Eval Order SARS-CoV-2, RNA, NAAT NEGATIVE Blood Type O Positive Antibody Screen NEGATIVE 09/22/20 09/22/20 09/22/20 05:28 05:28 05:28 WBC 5.72 RBC 4.07 L Hgb 7.9 L Hct 28.4 L MCV 69.8 L MCH 19.4 L MCHC 27.8 L RDW Std Deviation 49.6 H RDW Coeff of Pia 19.5 H Plt Count 226 MPV 9.8 Reticulocyte % (Auto) Reticulocyte # Sodium 140 Potassium 4.4 Chloride 111 H Carbon Dioxide 23 Anion Gap 6.0 BUN 16 Creatinine 0.90 D Est Cr Clr Drug Dosing 55.8 Est GFR ( Amer) 71.0 Est GFR (Non-Af Amer) 61.2 BUN/Creatinine Ratio 17.6 Glucose 131 H POC Glucose Estimat Average Glucose 166 Hemoglobin A1c 7.4 H Calcium 8.5 Magnesium 1.9 Iron TIBC Transferrin Ferritin COVID-19 Eval Order SARS-CoV-2, RNA, NAAT Blood Type Antibody Screen 09/22/20 09/22/20 08:14 12:11 WBC RBC Hgb Hct MCV MCH MCHC RDW Std Deviation RDW Coeff of Pia Plt Count MPV Reticulocyte % (Auto) Reticulocyte # Sodium Potassium Chloride Carbon Dioxide Anion Gap BUN Creatinine Est Cr Clr Drug Dosing Est GFR ( Amer) Est GFR (Non-Af Amer) BUN/Creatinine Ratio Glucose POC Glucose 151 H 159 H Estimat Average Glucose Hemoglobin A1c Calcium Magnesium Iron TIBC Transferrin Ferritin COVID-19 Eval Order SARS-CoV-2, RNA, NAAT Blood Type Antibody Screen
--- NOTE | 2020-09-22 23:35 | Electrocardiogram Report ---
Test Reason : Blood Pressure : / mmHG Vent. Rate : 079 BPM Atrial Rate : 079 BPM P-R Int : 154 ms QRS Dur : 080 ms QT Int : 388 ms P-R-T Axes : 046 -29 064 degrees QTc Int : 444 ms Normal sinus rhythm Normal ECG When compared with ECG of 09-MAY-2020 16:26, No significant change was found Confirmed by Krzysztof Overton ([id number]) on 09/22/2020 11:35:15 PM Referred By: REFERRED SELF Confirmed By:Krzysztof Overton
[2020-09-23] MEDS ORDERED: ASPIRIN 325 MG ECTAB PO SCH (09:00)
[2020-09-23] MEDS ORDERED: ENOXAPARIN INJ 40 MG/0.4 ML SYR SQ SCH (09:00)
[2020-09-23] MEDS: LIDOCAINE 5% 1 PATCH TD SCH (09:21)
[2020-09-23] MEDS: VITAMIN B COMPLEX TAB PO SCH (09:21)
[2020-09-23] MEDS: ATORVASTATIN 40 MG TAB PO SCH (09:21)
[2020-09-23] MEDS: NYSTATIN OINT 15 GM TUBE EXT SCH ×2 (09:21→10:41)
[2020-09-23] MEDS: FERROUS SULFATE 325 MG TAB PO SCH (09:22)
[2020-09-23] MEDS: carvediloL 25 MG TAB PO SCH (09:22)
[2020-09-23] MEDS: MAGNESIUM CHLORIDE 64MG DELAYED REL TAB PO SCH (09:22)
[2020-09-23] MEDS: INSULIN ASPART 100 UNITS/ML 3 ML PEN SC SCH (09:22)
[2020-09-23] MEDS: PANTOprazole 40 MG TAB PO SCH (09:22)
[2020-09-23] MEDS: PREGABALIN 150 MG CAP PO SCH (09:38)
[2020-09-23 09:48] LABS: Hematocrit (blood only) 31.5 % (37-47); Hemoglobin 8.7 g/dL (12.0-16.0); Mean Corpuscular Hemoglobin 19.3 pg (25-34); Mean Corpuscular Hgb Conc 27.6 g/dL (32-36); Mean Corpuscular Volume 69.8 fL (80-100); Platelet Count 185 K/uL (130-400); RDW Coefficient of Variation 19.7 % (11.5-14.5); RDW Standard Deviation 49.3 fL (36.4-46.3); Red Blood Count 4.51 M/uL (4.2-5.4); White Blood Count 5.85 K/uL (4.8-10.8)
[2020-09-23 10:14] LABS: BUN Creatinine Ratio 11.7 (10-20); Calcium 9.3 mg/dl (8.5-10.1); Creatinine Clr Calc Pharmacy 59.1 ml/min; Est GFR (African American) 76.1; Est GFR (Non-African American) 65.6; Potassium 4.7 mmol/L (3.5-5.1)
[2020-09-23] MEDS ORDERED: lisinopril 20 MG TAB PO STA (10:18)
[2020-09-23] MEDS ORDERED: FUROSEMIDE 20 MG TAB PO STA (10:19)
--- NOTE | 2020-09-23 11:18 | Discharge Summary ---
Date of Service September 23, 2020 Admission HPI Per Admitting Provider This is a 79yo F with a PMH of DM II, HTN, DLD, chronic diastolic heart failure, CKD III, dementia and other medical problems listed below who presents with weakness and recent fall earlier this week. Endorses progressive generalized weakness over the past few months. Has had a few wells, most recently last Friday at home by steps going up to house. Has been having ambulatory dysfunction with rollator/walker due to weakness and pain in legs. Difficult for elderly at home to manage. History of spinal surgeries in 80s with intermittent discomfort in back, no radicular component. Has diabetic neuropathy of feet. Denies fever, chills, headache, lightheadedness, headache, chest pain, SOB, nausea, vomiting, abdominal pain, dysuria, hematuria or diarrhea. History of chronic constipation but controlled with prune juice. Admission Exam Per Admitting Provider General: Obese woman in no obvious distress Eyes: PERRL, conjunctivae normal ENMT: External ear and nose normal, oropharynx normal Respiratory: Normal respiratory effort, no respiratory distress, lungs clear to auscultation, no crackles and no wheezes Cardiovascular: Pulse RRR, S1 S2, no pedal edema Gastrointestinal (Abdomen): Abdomen is not distended, soft, non-tender to palpation, no guarding, no palpable hepatosplenomegaly, normal bowel sounds Musculoskeletal: No point tenderness on the back, no pedal edema Neurologic: Alert and oriented x 3, No focal weakness, sensation grossly intact, no focal deficits Psychiatric: Alert and oriented x 3, euthymic affect Principal Diagnosis Generalized weakness Microcytic anemia due to iron deficiency VALERIY on CKD3 Discharge Exam Constitutional + well hydrated and + obese; no acute distress Eyes PERRL, conjunctivae normal, anicteric sclerae ENMT external ear and nose normal, oropharynx normal Respiratory normal respiratory effort, lungs clear to auscultation Cardiovascular Rate/Rhythm: regular rate and regular rhythm Heart Sounds: normal S1 and normal S2 Gastrointestinal (Abdomen) normal bowel sounds, soft, nontender, no hepatosplenomegaly Musculoskeletal no cyanosis or clubbing, extremities motor strength 5/5 Neurologic PERRL, EOMI, accommodation nl, no face palsy, no dysarthria Psychiatric A+Ox3, euthymic affect Discharge Data Allergies Allergy/AdvReac Type Severity Reaction Status Date / Time oxycodone Allergy Intermediate Sedation Verified 09/21/20 17:29 Consultations 09/21/20 16:08 ED Decision to Admit Stat Ordered Studies 09/21/20 12:25 CT angio head w con Stat CT angio neck with con Stat Brain parenchyma: There is age-related involutional change noting moderate subcortical and periventricular microangiopathic disease. There is no hemorrhage, mass effect, or evidence of acute territorial ischemia by CT criteria. There is no evidence of enhancing mass lesion on the angiogram phase images. The ventricles, sulci, and cisterns are normal in configuration. Mineralization is noted in the basal ganglia and cerebellum. Aldrich-white matter differentiation is preserved. No extra-axial fluid collection is seen. Thoracic aorta: There is atherosclerotic calcification of the thoracic aorta. Visualized portions of the thoracic aorta are normal in caliber. The aortic arch demonstrates standard 3-vessel anatomy. Right carotid arterial system: The right common carotid artery is widely patent, as are the right internal and external carotid arteries. Calcified plaque is noted in the carotid bulb. Left carotid arterial system: The left common carotid artery is widely patent, as are the left internal and external carotid arteries. Calcified plaque is noted in the carotid bulb. Vertebral arteries: The vertebral arteries are widely patent bilaterally noting left-sided dominance. Subclavian arteries: Widely patent bilaterally. Intracranial vasculature: There is atherosclerotic calcification of the cavernous carotid and vertebral arteries The internal carotid arteries are patent at the skull base, as are the anterior and middle cerebral arteries bilaterally. The vertebrobasilar system and posterior cerebral arteries are widely patent. The left vertebral artery is dominant. There is no aneurysm, high-grade stenosis, or focal vessel cut off seen throughout the intracranial circulation. Jugular veins: Patent bilaterally. Dural sinuses: Patent. Lung apices: Emphysematous change is noted at the apices. Upper lobe lung parenchyma is otherwise clear as imaged. Soft tissues: The visualized pharyngeal soft tissues are normal in appearance noting angiographic phase technique. The oropharyngeal airway appears widely patent. The thyroid gland is markedly enlarged and heterogeneous consistent with a multinodular goiter. This extends into the superior mediastinum and causes rightward deviation of the trachea. The salivary glands are normal in appearance. No cervical lymphadenopathy is seen. Skeletal structures: The skeletal structures are osteopenic. The calvarium appears intact. The cervical spine is maintained noting advanced multilevel spondylosis. No lytic or blastic lesion is seen. Orbits: The bony orbits are intact. Orbital contents are normal as visualized noting bilateral ocular lens implants. Sinuses and mastoids: The paranasal sinuses are clear. The mastoid air cells are well pneumatized. IMPRESSION: 1. There is no evidence of hemorrhage, mass effect, or acute territorial ischemia noting angiographic phase technique. 2. Unremarkable CT angiogram of the neck. 3. Unremarkable CT angiogram of the brain. 4. Multinodular goiter. CT head/brain wo con Stat No intra or extra-axial mass lesions are visualized. There is no CT evidence of acute cortical infarction. There is no evidence of midline shift. There is no acute hemorrhage. No calvarial fractures are visualized. There are patchy white matter hypodensities likely on a small vessel basis. There are bilateral cerebellar basal ganglia calcifications. There is no evidence of pathologic ventricular dilatation. There is no evidence of acute sinusitis IMPRESSION: No acute intracranial findings 09/21/20 20:42 CT lumbar spine wo con Routine For purposes of numbering on this exam, the L5-S1 disc space is assigned to axial image 289 of [id number]. No acute lumbar spine fracture is noted. There is no suspicious osseous lesion. There is marked disc space narrowing with osteophytosis and vacuum disc phenomenon at L2-L3. There is also moderate to severe disc space narrowing at L4-L5 and L5-S1. Facet joints are intact. There is moderate multilevel facet arthrosis. The central canal and neural foramen are suboptimally assessed by CT. There is suspected moderate central canal stenosis at L2-L3. Incidental note is made of contrast within the collecting systems and ureters from recent contrast-enhanced CT. There is mild aneurysmal dilatation of the abdominal aorta, measuring approximately 3.1 cm. IMPRESSION: 1. No acute lumbar spine fracture or subluxation. 2. Moderate multilevel degenerative disc disease and facet arthrosis within the lumbar spine, most pronounced at L2-L3, as described above. Suboptimal evaluation of the central canal neural foramen given CT technique. Hospital Course (1) Generalized weakness: 79yo F with a PMH of DM II, HTN, DLD, chronic diastolic heart failure, CKD III, dementia and other medical problems listed below who presents with weakness and recent fall earlier this week. Likely multifactorial in setting of downtrending microcytic anemia, hypomagnesemia, chronic back pain, diabetic neuropathy of feet Also likely a component of deconditioning Reports some fall at home in the past few weeks Remote history of back surgeries CT head, CTA head/neck without any acute abnormalities CT lumbar did not show any acute fracture or subluxation showed moderate multilevel degenerative disc disease Patient was evaluated by PT/OT and discharged to [facility] for rehab (2) Anemia: On admission, hemoglobin of 7.8 (most recent hemoglobin on record was 9 in 05/26). Microcytic with MCV 69.8 Iron studies show low serum iron (21) and ferritin (4.2) , normal TIBC (395) and transferrin (310) No overt GI bleeding Last colonoscopy on record from 2008, presence of 1 polyp and diverticulosis Started on ferrous sulfate 325mg BID PCP to follow up patient's anemia and manage appropriately. Hb today is 8.7 (3) Acute kidney injury superimposed on CKD: Cr mildly increased at 1.3 (baseline ~1) in setting of poor PO intake Given 500 NSS in ED. VALERIY resolved. Creatinine is 0.85 today Home lasix and lisinopril were briefly held but resumed today (4) Hypomagnesemia: Mag was 1.6 on admission Was repleted (5) Diabetes mellitus, type II: A1c 7.4. Continue home diabetic regimen (6) CAD (coronary artery disease): History of NSTEMI in 2019. No chest pain. Continue statin, beta frederick Reported she takes ASA 325mg daily at home (7) Dyslipidemia: Continue statin (8) Diastolic dysfunction: Euvolemic (9) Hypertension: Controlled Continue carvedilol and lisinopril Total Time Total Time Spent Total Time Spent (In Minutes): 45 Total Time Includes: Examination of the Patient, Discharge Planning and M edication Reconciliation Discharge Plan Discharge Items Patient Disposition: Transfer Inpatient Rehab Fac Reason For Visit: GENERALIZED WEAKNESS, HYPOMAGNESEMIA, VALERIY ON CKD Discharge Diagnosis: Generalized weakness Falls at home Microcytic anemia due to iron deficiency VALERIY on CKD3 Hypomagnesemia Activity: As commented below Activity Comment: Per Physical therapist recommendations Non-emergency contact: Primary Care Provider Call non-emergency contact if: you have any medication questions and your symptoms worsen Follow-up/Referrals: [facility] MD [Primary Care Provider] - Diet: Carb Consistent or DM2 and Heart Healthy Addtl Attending Provider Instructions: Mrs Vargas. You came to the hospital complaining of increasing weakness and some falls at home in the past couple of weeks. You were evaluated and found to have anemia (low blood levels) due to low iron levels. You were started on iron pills. Your lisinopril and lasix were temporarily suspended while you were in the hospital due to mild kidney injury but has been resumed. You were evaluated by physical therapy and discharged to rehab facility. Continue to take your home medications including your aspirin which you reported you take at home. Please follow up with your Primary Doctor who will continue to manage your chronic medical problems, monitor your blood levels and determine if you need further evaluation. It was a pleasure taking care of you. Pending Studies at Discharge: No Stand-Alone Forms: My [facility] Skilled Items Patient informed of condition?: Yes DNR: No Discharge Level of Care: Acute rehab Communicable Disease: No Discharge Prognosis: Stable Lines: None Urinary Catheter: No Medications and DC Order Prescriptions: New ferrous sulfate 325 mg (65 mg iron) Tablet,Delayed Release (Dr/Ec) 325 mg PO BIDM Qty: 60 RF: 0 acetaminophen 325 mg Tablet 650 mg PO Q4H PRN (Reason: pain) Qty: 30 RF: 0 polyethylene glycol 3350 [Miralax] 17 gram Powder In Packet 17 g PO DAILY PRN (Reason: constipation) Qty: 30 RF: 0 aspirin [Ecotrin] 325 mg Tablet,Delayed Release (Dr/Ec) 325 mg PO QAM Qty: 30 RF: 0 Continued carvedilol 25 mg Tablet 25 mg PO BID Qty: 0 RF: 0 metformin 1,000 mg Tablet 1,000 mg PO DAILY@0900 Qty: 0 RF: 0 omega-3 fatty acids 1,000 mg Capsule 2,000 mg PO DAILY Qty: 0 RF: 0 metformin 1,000 mg Tablet 500 mg PO BID Qty: 0 RF: 0 omeprazole 20 mg Tablet,Delayed Release (Dr/Ec) 20 mg PO QAM Qty: 0 RF: 0 coenzyme Q10 100 mg Capsule 100 mg PO DAILY Qty: 0 RF: 0 lorazepam 0.5 mg Tablet 0.5 mg PO TID PRN (Reason: Anxiety) Qty: 0 RF: 0 atorvastatin 40 mg Tablet 40 mg PO QAM Qty: 0 RF: 0 dicyclomine 10 mg Capsule 10 mg PO QID PRN (Reason: Stomach Upset) Qty: 0 RF: 0 valerian root 100 mg Capsule 100 mg PO DAILY RF: 0 cholecalciferol (vitamin D3) 50,000 unit capsule 50,000 unit PO MONTHLY RF: 0 Systane Ultra 0.4-0.3 % Drops 1 drp OPHTHALMIC (EYE) BID PRN (Reason: Dry Eye(S)) RF: 0 Slow-Mag 71.5 mg Tablet,Delayed Release (Dr/Ec) 250 mg PO DAILY RF: 0 nystatin 100,000 unit/gram ointment 1 applic topical BID Qty: 15 RF: 0 lisinopril 20 mg tablet 20 mg PO DAILY RF: 0 vitamin B complex Tablet 1 tab PO DAILY RF: 0 furosemide 20 mg tablet 20 mg PO DAILY RF: 0 pregabalin 150 mg capsule 150 mg PO BID RF: 0 Salonpas 3.1-10-6 % Adhesive Patch,Medicated 1 patch TOPICAL DAILY RF: 0 Discontinued metronidazole [Metrogel] 1 % Gel 1 applic TOPICAL BID PRN (Reason: Rash) RF: 0 Discharge Orders: Discharge Order (Routine); Ordered 09/23/20 Ordered By: Cece Gonsales/Other Patient Handouts: Managing Type 2 Diabetes, Managing Diabetes: The A1C Test Admission Data Admit Date/Time: 09/21/20 18:06 Attending Provider: Cece Mcknight I. Admit Provider: Cece Mcknight I. Primary Care Provider: [facility] Other Providers: Cece Mcknight I. ; [facility] Other Interventions: Discharge Summary Assessment (RN) Last Done: 09/23/20 11:35
[2020-09-24] MEDS ORDERED: lisinopril 20 MG TAB PO SCH (09:00)
[2020-09-24] MEDS ORDERED: FUROSEMIDE 20 MG TAB PO SCH (09:00)
== END 2020-09-23 12:57 ==
LOC: 3W 11:45 → ED 11:45 → 3W 20:04

== ENCOUNTER 2020-10-10 00:56 | Inpatient (IN) ==
--- NOTE | 2020-10-10 01:27 | Emergency Department Note ---
History of Present Illness General Chief complaint: Abnormal Labs/Diagnostic Testing Stated complaint: POTASSIUM VERY HIGH,KIDNEYS NOT FUNCTIONING RIGHT Time Seen by Provider: 10/10/20 01:08 Source: patient Mode of arrival: ambulatory Limitations: no limitations History of Present Illness Provider complaint: Abnormal outpatient labs This is a 79-year-old female presents emergency room with her after receiving a phone call that she had abnormal outpatient labs drawn earlier today. Patient denies any new or evolving symptoms. Patient had recently been in the emergency department for a fall and went to [facility]. states she was discharged home last Friday. Has been states she did have some diarrhea while she was at [facility] however this had since resolved. Patient denies any weakness, dizziness, chest pain, shortness of breath, leg swelling, or change in urinary habits. did state that he has noticed she is not urinating as often. She states she feels she is eating and drinking normally at this point. They deny any other recent medication changes. Pt seen during a time of high acuity and national emergency pandemic while wearing PPE. Home Medications Medication Instructions Recorded Confirmed Type metformin 1,000 mg PO QDB #0 10/15/13 10/10/20 History metformin 500 mg PO BID #0 10/15/13 10/10/20 History omega-3 fatty acids 2,000 mg PO QAM #0 10/15/13 10/10/20 History omeprazole 20 mg PO QAM #0 10/15/13 10/10/20 History coenzyme Q10 100 mg PO DAILY #0 01/04/16 10/10/20 History atorvastatin 40 mg PO QAM #0 04/09/17 10/10/20 History dicyclomine 10 mg PO QID PRN #0 04/09/17 10/10/20 History Systane Ultra 1 drp OPHTHALMIC (EYE) BID PRN 05/12/19 10/10/20 History cholecalciferol (vitamin D3) 50,000 unit PO MONTHLY 05/12/19 10/10/20 History pregabalin 150 mg PO AMHS 09/21/20 10/10/20 History vitamin B complex 1 tab PO DAILY 09/21/20 10/10/20 History acetaminophen 650 mg PO Q4H PRN #30 tab 09/23/20 10/10/20 Rx aspirin [Ecotrin] 325 mg PO QAM #30 tab 09/23/20 10/10/20 Rx ferrous sulfate 325 mg PO BIDM #60 tab 09/23/20 10/10/20 Rx carvedilol 12.5 mg PO BID 10/10/20 10/10/20 History magnesium chloride 128 mg PO QAM 10/10/20 10/10/20 History nystatin 1 applic TOPICAL AMHS 10/10/20 10/10/20 History Allergies Allergy/AdvReac Type Severity Reaction Status Date / Time oxycodone AdvReac Intermediate OVER Verified 10/10/20 03:00 SEDATED Past Med/Surg History Medical History Anxiety CKD (chronic kidney disease), stage III Diabetes mellitus, type II Dry eye syndrome Dyslipidemia GERD (gastroesophageal reflux disease) Hypertension Kidney stones Osteoarthritis Peripheral neuropathy Surgical History History of appendectomy History of carpal tunnel release left History of cataract surgery RT/LEFT History of discectomy LUMBAR (TOTAL 2 LUMBAR DISCECTOMY) History of hysterectomy History of tooth extraction Hx of colonoscopy with polypectomy Hx of eye surgery LASER PROCEDURE S/P cystoscopy with ureteral stent placement 05/13/19 MAC Family History Brother Family history of diabetes mellitus Other Cancer Heart disease Kidney disease Social History Smoking Status: Former smoker Tobacco Type: Cigarettes Second Hand Exposure: No; Do You Dip or Chew Tobacco: No; Tobacco Cessation Education Requested by Patient: No Hx Alcohol Use: No Hx Substance Use: No Preferred Language: Emirati Communication Ability: Effective 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 and A total of 10 systems reviewed and were otherwise negative Physical Exam Vital Signs Vital Signs - 24 hr 10/10/20 01:04 10/10/20 01:15 10/10/20 01:19 Temperature 36.5 C Temperature Source Temporal Artery Scan Pulse Rate 93 H 97 H 95 H Pulse Rate [Bilateral Radial] 97 H Pulse Rate from SpO2 Sensor 97 H 99 H Pulse Rhythm [Bilateral Radial] Regular Pulse Strength [Bilateral Radial] Respiratory Rate 18 20 17 Respiratory Effort / Characteristics Non-Labored Respiratory Depth Normal Normal Respiratory Pattern Regular Blood Pressure 123/70 142/82 H Blood Pressure [Right Arm] 142/82 H Blood Pressure Mean 87 102 Blood Pressure Mean [Right Arm] 102 Blood Pressure Position [Right Arm] Lying Pulse Oximetry 97 95 93 Oxygen Delivery Method Room Air Room Air Sepsis Recent Fever Within 48 Hours No Sepsis New/Unexplained Change in Mental Status N/A Sepsis Action Taken by Nursing No Action Required 10/10/20 01:20 10/10/20 01:30 10/10/20 01:40 Temperature Temperature Source Pulse Rate 95 H 93 H 94 H Pulse Rate [Bilateral Radial] Pulse Rate from SpO2 Sensor 96 H 93 H 94 H Pulse Rhythm [Bilateral Radial] Pulse Strength [Bilateral Radial] Respiratory Rate 20 19 18 Respiratory Effort / Characteristics Respiratory Depth Respiratory Pattern Blood Pressure Blood Pressure [Right Arm] Blood Pressure Mean Blood Pressure Mean [Right Arm] Blood Pressure Position [Right Arm] Pulse Oximetry 95 95 94 Oxygen Delivery Method Sepsis Recent Fever Within 48 Hours Sepsis New/Unexplained Change in Mental Status Sepsis Action Taken by Nursing 10/10/20 01:50 10/10/20 02:00 10/10/20 02:10 Temperature Temperature Source Pulse Rate 99 H 91 H 91 H Pulse Rate [Bilateral Radial] Pulse Rate from SpO2 Sensor 93 H 90 88 Pulse Rhythm [Bilateral Radial] Pulse Strength [Bilateral Radial] Respiratory Rate 13 14 15 Respiratory Effort / Characteristics Respiratory Depth Respiratory Pattern Blood Pressure Blood Pressure [Right Arm] Blood Pressure Mean Blood Pressure Mean [Right Arm] Blood Pressure Position [Right Arm] Pulse Oximetry 95 95 96 Oxygen Delivery Method Sepsis Recent Fever Within 48 Hours Sepsis New/Unexplained Change in Mental Status Sepsis Action Taken by Nursing 10/10/20 02:20 10/10/20 02:30 10/10/20 02:40 Temperature Temperature Source Pulse Rate 90 90 93 H Pulse Rate [Bilateral Radial] Pulse Rate from SpO2 Sensor 91 H 90 95 H Pulse Rhythm [Bilateral Radial] Pulse Strength [Bilateral Radial] Respiratory Rate 17 15 21 Respiratory Effort / Characteristics Respiratory Depth Respiratory Pattern Blood Pressure Blood Pressure [Right Arm] Blood Pressure Mean Blood Pressure Mean [Right Arm] Blood Pressure Position [Right Arm] Pulse Oximetry 94 95 94 Oxygen Delivery Method Sepsis Recent Fever Within 48 Hours Sepsis New/Unexplained Change in Mental Status Sepsis Action Taken by Nursing 10/10/20 02:50 10/10/20 03:00 10/10/20 03:10 Temperature Temperature Source Pulse Rate 91 H 98 H 100 H Pulse Rate [Bilateral Radial] Pulse Rate from SpO2 Sensor 96 H 98 H 100 H Pulse Rhythm [Bilateral Radial] Pulse Strength [Bilateral Radial] Respiratory Rate 17 19 27 H Respiratory Effort / Characteristics Respiratory Depth Respiratory Pattern Blood Pressure Blood Pressure [Right Arm] Blood Pressure Mean Blood Pressure Mean [Right Arm] Blood Pressure Position [Right Arm] Pulse Oximetry 89 L 89 L 94 Oxygen Delivery Method Sepsis Recent Fever Within 48 Hours Sepsis New/Unexplained Change in Mental Status Sepsis Action Taken by Nursing 10/10/20 03:19 10/10/20 03:20 10/10/20 03:30 Temperature Temperature Source Pulse Rate 95 H 99 H Pulse Rate [Bilateral Radial] 94 H Pulse Rate from SpO2 Sensor 96 H 98 H Pulse Rhythm [Bilateral Radial] Pulse Strength [Bilateral Radial] Respiratory Rate 20 18 22 Respiratory Effort / Characteristics Non-Labored Spontaneous Respiratory Depth Respiratory Pattern Blood Pressure Blood Pressure [Right Arm] Blood Pressure Mean Blood Pressure Mean [Right Arm] Blood Pressure Position [Right Arm] Pulse Oximetry 93 97 87 L Oxygen Delivery Method Room Air Sepsis Recent Fever Within 48 Hours Sepsis New/Unexplained Change in Mental Status Sepsis Action Taken by Nursing 10/10/20 03:40 10/10/20 03:50 10/10/20 04:00 Temperature Temperature Source Pulse Rate 111 H 106 H 110 H Pulse Rate [Bilateral Radial] Pulse Rate from SpO2 Sensor 113 H 106 H 111 H Pulse Rhythm [Bilateral Radial] Pulse Strength [Bilateral Radial] Respiratory Rate 19 29 H 20 Respiratory Effort / Characteristics Respiratory Depth Respiratory Pattern Blood Pressure Blood Pressure [Right Arm] Blood Pressure Mean Blood Pressure Mean [Right Arm] Blood Pressure Position [Right Arm] Pulse Oximetry 96 94 94 Oxygen Delivery Method Sepsis Recent Fever Within 48 Hours Sepsis New/Unexplained Change in Mental Status Sepsis Action Taken by Nursing 10/10/20 04:10 10/10/20 04:13 10/10/20 04:16 Temperature Temperature Source Pulse Rate 116 H 113 H Pulse Rate [Bilateral Radial] 112 H Pulse Rate from SpO2 Sensor 117 H 113 H Pulse Rhythm [Bilateral Radial] Regular Pulse Strength [Bilateral Radial] Normal Respiratory Rate 20 17 18 Respiratory Effort / Characteristics Non-Labored Respiratory Depth Normal Respiratory Pattern Regular Blood Pressure 151/82 H Blood Pressure [Right Arm] 151/82 H Blood Pressure Mean 105 Blood Pressure Mean [Right Arm] 105 Blood Pressure Position [Right Arm] Pulse Oximetry 98 98 98 Oxygen Delivery Method Room Air Sepsis Recent Fever Within 48 Hours Sepsis New/Unexplained Change in Mental Status Sepsis Action Taken by Nursing 10/10/20 04:20 10/10/20 04:30 10/10/20 04:40 Temperature Temperature Source Pulse Rate 112 H 113 H 113 H Pulse Rate [Bilateral Radial] Pulse Rate from SpO2 Sensor 112 H 114 H 117 H Pulse Rhythm [Bilateral Radial] Pulse Strength [Bilateral Radial] Respiratory Rate 14 17 18 Respiratory Effort / Characteristics Respiratory Depth Respiratory Pattern Blood Pressure Blood Pressure [Right Arm] Blood Pressure Mean Blood Pressure Mean [Right Arm] Blood Pressure Position [Right Arm] Pulse Oximetry 99 99 97 Oxygen Delivery Method Sepsis Recent Fever Within 48 Hours Sepsis New/Unexplained Change in Mental Status Sepsis Action Taken by Nursing 10/10/20 04:50 10/10/20 05:00 10/10/20 05:10 Temperature Temperature Source Pulse Rate 115 H 116 H 116 H Pulse Rate [Bilateral Radial] Pulse Rate from SpO2 Sensor 116 H Pulse Rhythm [Bilateral Radial] Pulse Strength [Bilateral Radial] Respiratory Rate 17 18 21 Respiratory Effort / Characteristics Respiratory Depth Respiratory Pattern Blood Pressure Blood Pressure [Right Arm] Blood Pressure Mean Blood Pressure Mean [Right Arm] Blood Pressure Position [Right Arm] Pulse Oximetry 97 Oxygen Delivery Method Sepsis Recent Fever Within 48 Hours Sepsis New/Unexplained Change in Mental Status Sepsis Action Taken by Nursing 10/10/20 05:20 10/10/20 05:30 10/10/20 05:40 Temperature Temperature Source Pulse Rate 115 H 112 H 108 H Pulse Rate [Bilateral Radial] Pulse Rate from SpO2 Sensor Pulse Rhythm [Bilateral Radial] Pulse Strength [Bilateral Radial] Respiratory Rate 18 15 16 Respiratory Effort / Characteristics Respiratory Depth Respiratory Pattern Blood Pressure Blood Pressure [Right Arm] Blood Pressure Mean Blood Pressure Mean [Right Arm] Blood Pressure Position [Right Arm] Pulse Oximetry Oxygen Delivery Method Sepsis Recent Fever Within 48 Hours Sepsis New/Unexplained Change in Mental Status Sepsis Action Taken by Nursing 10/10/20 05:50 10/10/20 06:13 Temperature Temperature Source Pulse Rate 110 H Pulse Rate [Bilateral Radial] 112 H Pulse Rate from SpO2 Sensor Pulse Rhythm [Bilateral Radial] Regular Pulse Strength [Bilateral Radial] Normal Respiratory Rate 21 22 Respiratory Effort / Characteristics Non-Labored Respiratory Depth Normal Respiratory Pattern Regular Blood Pressure Blood Pressure [Right Arm] 143/98 H Blood Pressure Mean Blood Pressure Mean [Right Arm] 113 Blood Pressure Position [Right Arm] Sitting Pulse Oximetry 94 Oxygen Delivery Method Room Air Sepsis Recent Fever Within 48 Hours Sepsis New/Unexplained Change in Mental Status Sepsis Action Taken by Nursing GENERAL: alert, well appearing, well nourished, no distress, non-toxic, obese EYE EXAM: normal conjunctiva, PERRL and EOM's grossly intact OROPHARYNX: no exudate, no erythema, lips, buccal mucosa, and tongue normal and mucous membranes are dry NECK: supple, no nuchal rigidity, no adenopathy, non-tender LUNGS: Clear to auscultation. Normal chest wall mechanics, no w/r/r HEART: no murmurs, S1 normal and S2 normal, no ectopy or dysrhythmia noted on telemetry ABDOMEN: abdomen soft, non-tender, normo-active bowel sounds, no masses, no re bound or guarding. BACK: Back is symmetrical on inspection and there is no deformity, no midline te nderness, no CVA tenderness. SKIN: no rashes and no bruising UPPER EXTREMITIES: upper extremities are grossly normal. FROM, nml pulses b/l. LOWER EXTREMITIES: No pitting edema. FROM, nml pulses b/l. NEURO EXAM: Normal sensorium, cranial nerves II-XII grossly intact, normal speech, no gross weakness of arms, no gross weakness of legs. Gross sensation intact. Course Course 0242: Patient and at bedside updated on results. Patient continues to deny any symptoms other than being tired. 0602: VS stable. 0629: Discussed with Dr. Segal. Administered Medications Aspirin (Aspirin 325 Mg Ectab) 325 mg PO [facility] Stop: 11/09/20 09:25 Last Admin: 10/10/20 10:45 Dose: 325 mg Documented by: [id number] Atorvastatin Calcium (Atorvastatin 40 Mg Tab) [facility] Stop: 11/09/20 09:25 Last Admin: 10/10/20 10:45 Dose: 40 mg Documented by: [id number] Carvedilol (Carvedilol 12.5 Mg Tab) 12.5 mg PO BID [facility] Stop: 11/09/20 09:25 Last Admin: 10/10/20 21:13 Dose: 12.5 mg Documented by: [id number] Admin: 10/10/20 10:44 Dose: 12.5 mg Documented by: [id number] Ferrous Sulfate (Ferrous Sulfate 325 Mg Tab) 325 mg PO BIDM [facility] Stop: 11/09/20 09:25 Last Admin: 10/10/20 17:01 Dose: 325 mg Documented by: [id number] Admin: 10/10/20 10:45 Dose: 325 mg Documented by: [id number] Heparin Sodium (Porcine) (Heparin Sod 5,000 Unit/0.5 Ml Vial) 7,500 units SQ Q8 [facility] Stop: 11/09/20 13:59 Last Admin: 10/11/20 06:23 Dose: 7,500 units Documented by: [id number] Admin: 10/10/20 21:16 Dose: 7,500 units Documented by: [id number] Admin: 10/10/20 13:21 Dose: 7,500 units Documented by: [id number] Insulin Aspart (Insulin Aspart 100 Units/Ml 3 Ml Pen) 0 units SC ACHS [facility] Stop: 11/09/20 09:25 Last Admin: 10/10/20 21:16 Dose: Not Given Documented by: [id number] Cosigned by: [id number] Admin: 10/10/20 17:01 Dose: 5 units Documented by: [id number] Cosigned by: [id number] Admin: 10/10/20 13:18 Dose: 1 units Documented by: [id number] Cosigned by: [id number] Admin: 10/10/20 11:17 Dose: Not Given Documented by: [id number] Cosigned by: [id number] Miscellaneous ([Systane Ultra ~ Order Awaiting Action) 1 ea N/A QS [facility] Stop: 11/09/20 15:59 Last Admin: 10/10/20 23:18 Dose: 1 ea Documented by: [id number] Admin: 10/10/20 18:21 Dose: 1 ea Documented by: [id number] Nystatin (Nystatin Powder 15gm Btl) 1 appln EXT BID [facility] Stop: 11/09/20 20:59 Last Admin: 10/10/20 21:14 Dose: 1 appln Documented by: [id number] Pregabalin (Pregabalin 150 Mg Cap) 150 mg PO BID [facility] Stop: 11/09/20 09:25 Last Admin: 10/10/20 21:15 Dose: 150 mg Documented by: [id number] Admin: 10/10/20 11:17 Dose: 150 mg Documented by: [id number] Discontinued Medications Albuterol (Albuterol 0.5% Neb Soln 2.5 Mg/0.5 Ml Vial) 2.5 mg NEB NOW STA Stop: 10/10/20 02:43 Last Admin: 10/10/20 03:19 Dose: 2.5 mg Documented by: [id number] Dextrose (Dextrose 50% 50 Ml Syringe) 50 ml IV NOW ONE Stop: 10/10/20 02:43 Last Admin: 10/10/20 03:29 Dose: 50 ml Documented by: [id number] Dextrose (Dextrose 50% 50 Ml Syringe) 50 ml IV NOW STA Stop: 10/10/20 07:14 Last Admin: 10/10/20 07:29 Dose: 50 ml Documented by: [id number] Furosemide (Furosemide 40 Mg/4 Ml Vial) 40 mg IV NOW STA Stop: 10/10/20 02:43 Last Admin: 10/10/20 03:57 Dose: 40 mg Documented by: [id number] Lactated Ringer's (Lr) 1,000 mls @ 125 mls/hr IV .Q8H URI Stop: 11/09/20 01:29 Last Infusion: 10/10/20 09:36 Dose: 0 mls/hr Documented by: [id number] Admin: 10/10/20 01:47 Dose: 125 mls/hr Documented by: [id number] Calcium Chloride 1,000 mg/ (Sodium Chloride) 60 mls @ 240 mls/hr IV NOW STA Stop: 10/10/20 02:56 Last Infusion: 10/10/20 09:36 Dose: 0 mls/hr Documented by: [id number] Admin: 10/10/20 03:17 Dose: 240 mls/hr Documented by: [id number] Magnesium Sulfate/Dextrose (Magnesium Sulfate / D5w) 1 gm in 100 mls @ 100 mls/hr IV NOW STA Stop: 10/10/20 04:57 Last Infusion: 10/10/20 09:37 Dose: 0 mls/hr Documented by: [id number] Admin: 10/10/20 05:27 Dose: 100 mls/hr Documented by: [id number] Dextrose/Sodium Chloride (D5w And 1/2nss) 1,000 mls @ 125 mls/hr IV .Q8H URI Stop: 10/11/20 04:03 Last Infusion: 10/11/20 00:42 Dose: 0 mls/hr Documented by: [id number] Admin: 10/10/20 15:37 Dose: 125 mls/hr Documented by: [id number] Infusion: 10/10/20 15:37 Dose: 125 mls/hr Documented by: [id number] Admin: 10/10/20 10:44 Dose: 125 mls/hr Documented by: [id number] Sodium Chloride (1/2 Nss) 1,000 mls @ 125 mls/hr IV .Q8H URI Stop: 11/09/20 09:25 Last Infusion: 10/10/20 18:22 Dose: 0 mls/hr Documented by: [id number] Admin: 10/10/20 18:22 Dose: 125 mls/hr Documented by: [id number] Insulin Human Regular (Novolin-R Insulin Per Unit Charge) 10 units IV NOW STA Stop: 10/10/20 02:43 Last Admin: 10/10/20 03:30 Dose: 10 units Documented by: [id number] Cosigned by: [id number] Insulin Human Regular (Novolin-R Insulin Per Unit Charge) 10 units IV NOW STA Stop: 10/10/20 07:14 Last Admin: 10/10/20 07:29 Dose: 10 units Documented by: [id number] Cosigned by: [id number] Sodium Bicarbonate (Sodium Bicarb 8.4% Inj 50 Meq/50 Ml Syr) 50 meq IV NOW STA Stop: 10/10/20 02:43 Last Admin: 10/10/20 03:29 Dose: 50 meq Documented by: [id number] Sodium Polystyrene Sulfonate (Sodium Polystyrene Sulfonate 15g/60ml Susp) 15 gm PO NOW STA Stop: 10/10/20 03:26 Last Admin: 10/10/20 03:57 Dose: 15 gm Documented by: [id number] Sodium Polystyrene Sulfonate (Sodium Polystyrene Sulfonate 15g/60ml Susp) 45 gm PO NOW STA Stop: 10/10/20 07:14 Last Admin: 10/10/20 07:38 Dose: 45 gm Documented by: [id number] Critical Care Time Critical Care Time: Yes Total Critical Care Time: 52 Critical care of 52 min performed to assess and manage high likelihood of life- threatening hyperkalemia, involving labs and imaging performed with assessment to evaluate hyperkalemia and acute kidney injury diagnosis with frequent reassessment. This time includes bedside time, treatment discussions with patient/family/consultants, documentation time and excludes procedure time. Medical Decision Making Differential Diagnosis Differential Diagnosis includes but is not limited to dehydration, stroke, anemia, hypoglycemia, hyponatremia, hypernatremia, urinary tract infection, pneumonia, bronchitis, sepsis, gastroenteritis, additional abdominal pathology, metabolic abnormalities and infections. Medical Records Attestation: I reviewed the patient's medical records. Home Medications Current Medication List: was personally reviewed by me Laboratory Data Attestation: I reviewed the patient's lab results. Result diagrams: 10/11/20 04:29 10/11/20 04:29 Lab Results 10/10/20 10/10/20 10/10/20 Range/Units 01:33 01:33 03:13 WBC 7.09 (4.8-10.8) K/uL RBC 4.33 (4.2-5.4) M/uL Hgb 9.6 L (12.0-16.0) g/dL Hct 32.6 L (37-47) % MCV 75.3 L (80-100) fL MCH 22.2 L (25-34) pg MCHC 29.4 L (32-36) g/dL RDW Std Deviation 76.1 H (36.4-46.3) fL RDW Coeff of Pia 28.0 H (11.5-14.5) % Plt Count 192 (130-400) K/uL Immature Gran % (Auto) 0.3 % Neut % (Auto) 62.9 % Lymph % (Auto) 22.1 % Beauregard % (Auto) 9.0 % Eos % (Auto) 5.4 % Baso % (Auto) 0.3 % Neut # (Auto) 4.46 (1.4-6.5) K/uL Lymph # (Auto) 1.57 (1.2-3.4) K/uL Bea[place]gard # (Auto) 0.64 H (0.11-0.59) K/uL Eos # (Auto) 0.38 (0-0.5) K/uL Baso # (Auto) 0.02 (0-0.2) K/uL Immature Gran # (Auto) 0.02 (0.00-0.02) K/uL Anisocytosis Present Ovalocytes 1+ Sodium 148 H (136-145) mmol/L Potassium 7.0 H* (3.5-5.1) mmol/L Chloride 124 H (98-107) mmol/L Carbon Dioxide 21 (21-32) mmol/L Anion Gap 3.0 (3-11) BUN 66 H (7-18) mg/dl Creatinine 1.98 H (0.6-1.2) mg/dl Est Cr Clr Drug Dosing 25.2 ml/min Est GFR ( Amer) 27.4 Est GFR (Non-Af Amer) 23.6 BUN/Creatinine Ratio 33.5 H (10-20) Glucose 141 H (70-99) mg/dl Calcium 9.2 (8.5-10.1) mg/dl Phosphorus 3.4 (2.5-4.9) mg/dl Magnesium 1.6 L (1.8-2.4) mg/dl Total Bilirubin 0.2 (0.2-1) mg/dl AST 13 L (15-37) U/L ALT 28 (12-78) U/L Alkaline Phosphatase 88 (45-117) U/L Total Protein 8.1 (6.4-8.2) gm/dl Albumin 3.4 (3.4-5.0) gm/dl Globulin 4.7 H (2.5-4.0) gm/dl Albumin/Globulin Ratio 0.7 L (0.9-2) Urine Color Yellow Urine Appearance Clear (Clear) Urine pH 5.0 (4.5-7.5) Ur Specific Elton 1.018 (1.000-1.030) Urine Protein Trace H (Negative) Urine Glucose (UA) Negative (Negative) Urine Ketones Negative (Negative) Urine Blood Negative (Negative) Urine Nitrite Negative (Negative) Urine Bilirubin Negative (Negative) Urine Urobilinogen Negative (Negative) Ur Leukocyte Esterase Trace H (Negative) Urine WBC (Auto) 1-5 (0-5) /hpf Urine RBC (Auto) 0-4 (0-4) /hpf U Hyaline Cast (Auto) 5-10 H (0-5) /lpf U Epithel Cells (Auto) >30 H (0-5) /lpf Urine Bacteria (Auto) Negative (Negative) COVID-19 Eval Order SARS-CoV-2 (PCR) (Negative) Influenza Type A (PCR) (Neg) Influenza Type B (PCR) (Neg) RSV (RT-PCR) (Neg) 10/10/20 10/10/20 10/10/20 Range/Units 04:29 04:29 05:24 WBC (4.8-10.8) K/uL RBC (4.2-5.4) M/uL Hgb (12.0-16.0) g/dL Hct (37-47) % MCV (80-100) fL MCH (25-34) pg MCHC (32-36) g/dL RDW Std Deviation (36.4-46.3) fL RDW Coeff of Pia (11.5-14.5) % Plt Count (130-400) K/uL Immature Gran % (Auto) % Neut % (Auto) % Lymph % (Auto) % Bea[place]gard % (Auto) % Eos % (Auto) % Baso % (Auto) % Neut # (Auto) (1.4-6.5) K/uL Lymph # (Auto) (1.2-3.4) K/uL [place] # (Auto) (0.11-0.59) K/uL Eos # (Auto) (0-0.5) K/uL Baso # (Auto) (0-0.2) K/uL Immature Gran # (Auto) (0.00-0.02) K/uL Anisocytosis Ovalocytes Sodium 150 H (136-145) mmol/L Potassium 6.0 H (3.5-5.1) mmol/L Chloride 123 H (98-107) mmol/L Carbon Dioxide 25 (21-32) mmol/L Anion Gap 2.0 L (3-11) BUN 59 H (7-18) mg/dl Creatinine 1.65 H D (0.6-1.2) mg/dl Est Cr Clr Drug Dosing 30.3 ml/min Est GFR ( Amer) 34.1 Est GFR (Non-Af Amer) 29.4 BUN/Creatinine Ratio 36.0 H (10-20) Glucose 105 H (70-99) mg/dl Calcium 10.7 H D (8.5-10.1) mg/dl Phosphorus (2.5-4.9) mg/dl Magnesium (1.8-2.4) mg/dl Total Bilirubin (0.2-1) mg/dl AST (15-37) U/L ALT (12-78) U/L Alkaline Phosphatase (45-117) U/L Total Protein (6.4-8.2) gm/dl Albumin (3.4-5.0) gm/dl Globulin (2.5-4.0) gm/dl Albumin/Globulin Ratio (0.9-2) Urine Color Urine Appearance (Clear) Urine pH (4.5-7.5) Ur Specific Elton (1.000-1.030) Urine Protein (Negative) Urine Glucose (UA) (Negative) Urine Ketones (Negative) Urine Blood (Negative) Urine Nitrite (Negative) Urine Bilirubin (Negative) Urine Urobilinogen (Negative) Ur Leukocyte Esterase (Negative) Urine WBC (Auto) (0-5) /hpf Urine RBC (Auto) (0-4) /hpf U Hyaline Cast (Auto) (0-5) /lpf U Epithel Cells (Auto) (0-5) /lpf Urine Bacteria (Auto) (Negative) COVID-19 Eval Order CovFluRsv at [facility] SARS-CoV-2 (PCR) NEGATIVE (Negative) Influenza Type A (PCR) Negative (Neg) Influenza Type B (PCR) Negative (Neg) RSV (RT-PCR) Negative (Neg) ECG Data Attestation: I personally reviewed and interpreted this ECG as follows: Indication: + other (electrolyte abnormality) Rate (beats per minute): 93 Rhythm: + normal sinus ECG Intervals/blocks: + Normal QRS and + Normal QT ECG [place]: + Normal ECG ST segments: + Normal ST segments MDM Narrative This is a 79-year-old female who presents after being contacted by her family doctor's office due to abnormal outpatient labs. Patient denied complaints. L abs have been ordered by PCP. She denies any recent change in medications. Patient does admit to some diarrhea recently and did appear clinically dehydrated. Patient started on gentle IV fluid rehydration and labs resent. Patient's potassium and creatinine were elevated however improved compared to the outpatient labs. Patient given medications to treat her hyperkalemia including calcium, bicarb, Lasix, insulin/dextrose, albuterol, and Kayexalate. Repeat labs after 4 hours were markedly improved. Patient's EKG did not show any abnormalities and patient continued to be well-appearing throughout. I did not feel patient required emergent dialysis in light of this. Patient has not previously seen nephrology for any prior reason. There is mention in the EMR of prior chronic kidney disease, although her creatinine has never been this high. At this time I suspect dehydration or medication related. Case discussed with hospitalist for additional evaluation and monitoring as well as continued treatment. I do not suspect other occult toxidrome or infectious etiology. Patient's magnesium was repleted also. Anemia appears chronic but stable. An order was placed for continuous cardiac monitoring. The monitor shows a rate of _88__ with _normal sinus_ rhythm. Impression & Plan Acute kidney injury superimposed on CKD, Hypomagnesemia, Acute hyperkalemia, Dehydration Discharge Plan Visit Data Chief Complaint: Abnormal Labs/Diagnostic Testing Stated Complaint: POTASSIUM VERY HIGH,KIDNEYS NOT FUNCTIONING RIGHT ED Provider: Yvette Ceballos Discharge Problem: Acute kidney injury superimposed on CKD, Hypomagnesemia, Acute hyperkalemia, Dehydration Patient Disposition: Admitted As Inpatient Discharge Instructions Interventions: ED Discharge Assessment Last Done: 10/10/20 08:26
[2020-10-10] MEDS ORDERED: LACTATED RINGER'S 1,000 ML IV SCH (01:30)
[2020-10-10 01:46] LABS: Basophils # (auto) 0.02 K/uL (0-0.2); Basophils % (auto) 0.3 %; Eosinophils # (auto) 0.38 K/uL (0-0.5); Eosinophils % (auto) 5.4 %; Hematocrit (blood only) 32.6 % (37-47); Hemoglobin 9.6 g/dL (12.0-16.0); Immature Granulocytes # (auto) 0.02 K/uL (0.00-0.02); Immature Granulocytes % (auto) 0.3 %; Lymphocytes # (auto) 1.57 K/uL (1.2-3.4); Lymphocytes % (auto) 22.1 %; Mean Corpuscular Hemoglobin 22.2 pg (25-34); Mean Corpuscular Hgb Conc 29.4 g/dL (32-36); Mean Corpuscular Volume 75.3 fL (80-100); Monocytes # (auto) 0.64 K/uL (0.11-0.59); Neutrophils # (auto) 4.46 K/uL (1.4-6.5); Neutrophils % (auto) 62.9 %; Platelet Count 192 K/uL (130-400); RDW Standard Deviation 76.1 fL (36.4-46.3); Red Blood Count 4.33 M/uL (4.2-5.4); White Blood Count 7.09 K/uL (4.8-10.8)
[2020-10-10 02:03] LABS: Anisocytosis Present; Ovalocytes 1+
[2020-10-10 02:38] LABS: Albumin Globulin Ratio 0.7 (0.9-2); Albumin Level 3.4 gm/dl (3.4-5.0); BUN Creatinine Ratio 33.5 (10-20); Bilirubin,Total 0.2 mg/dl (0.2-1); Calcium 9.2 mg/dl (8.5-10.1); Creatinine Clr Calc Pharmacy 25.2 ml/min; Est GFR (African American) 27.4; Est GFR (Non-African American) 23.6; Globulin 4.7 gm/dl (2.5-4.0); Magnesium 1.6 mg/dl (1.8-2.4); Phosphorus 3.4 mg/dl (2.5-4.9); Total Protein 8.1 gm/dl (6.4-8.2)
[2020-10-10] MEDS ORDERED: NovoLIN-R INSULIN PER UNIT CHARGE IV STA ×2 (02:42→07:13)
[2020-10-10] MEDS ORDERED: FUROSEMIDE 40 MG/4 ML VIAL IV STA (02:42)
[2020-10-10] MEDS ORDERED: SODIUM BICARB 8.4% INJ 50 MEQ/50 ML SYR IV STA (02:42)
[2020-10-10] MEDS ORDERED: DEXTROSE 50% 50 ML SYRINGE IV ONE (02:42)
[2020-10-10] MEDS ORDERED: ALBUTEROL 0.5% NEB SOLN 2.5 MG/0.5 ML VIAL NEB STA (02:42)
[2020-10-10] MEDS ORDERED: CALCIUM CHLORIDE 10% 1,000 MG in SODIUM CHLORIDE 0.9% 50 ML IV STA (02:42)
[2020-10-10] MEDS ORDERED: SODIUM POLYSTYRENE SULFONATE 15G/60ML SUSP PO STA ×2 (03:25→07:13)
[2020-10-10 03:50] LABS: Appearance Urine Clear (Clear); Bacteria Urine Automated Negative (Negative); Bilirubin Urine Negative (Negative); Blood Urine Negative (Negative); Color Urine Yellow; Epithelial Cell Urine Auto >30 /lpf (0-5); Glucose Urine UA Negative (Negative); Ketones Urine Negative (Negative); Leukocyte Esterase Urine Trace (Negative); Nitrite Urine Negative (Negative); Protein Urine Trace (Negative); RBC Urine Automated 0-4 /hpf (0-4); Specific Gravity Urine 1.018 (1.000-1.030); Urobilinogen Urine Negative (Negative)
[2020-10-10] MEDS ORDERED: MAGNESIUM SULFATE / D5W 1 GM/100 ML BAG IV STA (03:58)
[2020-10-10 05:38] LABS: Influenza A virus by PCR Negative (Neg); Influenza B virus by PCR Negative (Neg); RSV by PCR Negative (Neg); SARS CoV2 RNA(COVID-19) InHosp NEGATIVE (Negative)
[2020-10-10 06:01] LABS: Calcium 10.7 mg/dl (8.5-10.1); Creatinine Clr Calc Pharmacy 30.3 ml/min; Est GFR (African American) 34.1; Est GFR (Non-African American) 29.4
[2020-10-10] MEDS ORDERED: DEXTROSE 50% 50 ML SYRINGE IV STA (07:13)
[2020-10-10] MEDS ORDERED: NITROGLYCERIN SL 0.4 MG/TAB TAB SL PRN (09:26)
[2020-10-10] MEDS ORDERED: ACETAMINOPHEN 325 MG TAB PO PRN (09:26)
[2020-10-10] MEDS ORDERED: SODIUM CHLORIDE 0.45 % 1,000 ML IV SCH (09:26)
[2020-10-10] MEDS ORDERED: DICYCLOMINE HCL 10 MG CAP PO PRN (09:26)
[2020-10-10] MEDS ORDERED: GLUCOSE 40% GEL 15 GM TUBE PO PRN (09:45)
[2020-10-10] MEDS ORDERED: DEXTROSE 50% 50 ML SYRINGE IV PRN (09:45)
[2020-10-10] MEDS ORDERED: GLUCAGON FOR INJ 1 MG VIAL IM PRN (09:45)
[2020-10-10] MEDS ORDERED: CARBOHYDRATES FOR HYPOGLYCEMIA PO PRN (09:45)
[2020-10-10] MEDS ORDERED: GLUCOSE 10 TABS/TUBE PO PRN (09:45)
[2020-10-10 10:07] LABS: BUN Creatinine Ratio 32.5 (10-20); Calcium 10.2 mg/dl (8.5-10.1); Creatinine Clr Calc Pharmacy 28.3 ml/min; Est GFR (African American) 32.4; Potassium 5.3 mmol/L (3.5-5.1)
[2020-10-10] MEDS: D5W AND 1/2NSS 1,000 ML IV SCH ×2 (10:44→15:37)
[2020-10-10] MEDS: carvediloL 12.5 MG TAB PO SCH ×2 (10:44→21:13)
[2020-10-10] MEDS: ASPIRIN 325 MG ECTAB PO SCH (10:45)
[2020-10-10] MEDS: FERROUS SULFATE 325 MG TAB PO SCH ×2 (10:45→17:01)
[2020-10-10] MEDS: ATORVASTATIN 40 MG TAB PO SCH (10:45)
[2020-10-10] MEDS: INSULIN ASPART 100 UNITS/ML 3 ML PEN SC SCH ×4 (11:17→21:16)
[2020-10-10] MEDS: PREGABALIN 150 MG CAP PO SCH ×2 (11:17→21:15)
--- NOTE | 2020-10-10 11:21 | History and Physical Report ---
DATE OF ADMISSION: 10/10/2020 CHIEF COMPLAINT: Abnormal labs. HISTORY OF PRESENT ILLNESS: A 79-year-old female with past medical history significant for type 2 diabetes, hypertension, DLD, CAD chronic diastolic heart failure, chronic kidney disease stage III, dementia, left ventricular hypertrophy, history of HI, vitamin D deficiency, history of rectocele, GERD, history of nephrolithiasis, osteoarthritis involving multiple joints, anxiety state, lives with her who is brought in because of abnormal labs. The patient was recently in the hospital and was discharged on 09/23/2020 to [facility]. At that time, she was worked up for stroke with a CTA of the head and neck, which was without any acute findings and CT lumbar spine did not show any acute fracture, it showed moderate multilevel degenerative disc disease. She was falling at home at that time and also found to have anemia, hemoglobin 7.8, iron deficiency. She was started on ferrous sulfate and to follow outpatient for workup. At the time of discharge, hemoglobin was 8.7 and she also had VALERIY, creatinine increased to 1.3, improved with fluids at that time. Lasix and lisinopril were held, but resumed at discharge to [facility].But it seems at discharge from [facility], the Lasix and lisinopril were stopped, and she has outpatient laboratories, which showed potassium of 7.3 and creatinine in 2s, so she was advised to come to the hospital. Here initially labs showed potassium of 7, creatinine of 1.9 and sodium of 148. ER treated her with insulin, dextrose, Kayexalate, Lasix, nebs and sodium bicarbonate. Repeat labs showed potassium of 6 and sodium of 150 and creatinine of 1.6, and we were called for admission. The patient is somewhat slow to answer. in the room helped with most of the history. As per , the patient drinks only 1-2 bottles of the rupal flavor Zero comes in bottles from [employer] because she does not like to drink water and she does not like to drink bottled water. Appetite is okay. After discharge from the [facility], she had diarrhea on Friday for 1 day for 3 times. No abdominal pain, no nausea, no vomiting, no chest pain, no shortness of breath. No cough, no headache, no blurred vision. Hard of hearing. No runny nose, no sore throat. Currently resting comfortably and hemodynamically stable. ALLERGIES: OXYCODONE. PAST MEDICAL HISTORY: As mentioned above. PAST SURGICAL HISTORY: Colonoscopy, cystourethroscopy with lithotripsy, hysterectomy, lumbar hemilaminectomy, appendectomy, sinus surgery. MEDICATIONS: The patient currently on Tylenol 650 mg p.o. q.4 hours p.r.n., aspirin 325 mg p.o. a.m., atorvastatin 40 mg p.o. a.m., Coreg 12.5 mg p.o. b.i.d., vitamin D 5000 units p.o. monthly, Coenzyme Q10 100 mg p.o. daily, dicyclomine 10 mg p.o. q.i.d. p.r.n., ferrous sulfate 325 mg p.o. b.i.d., magnesium chloride 128 mg p.o. a.m., metformin 1000 mg p.o. daily with breakfast and 500 mg p.o. b.i.d., nystatin topical a.m. and at bedtime, omega fatty acid 2 grams p.o. daily, omeprazole 20 mg p.o. q.a.m., pregabalin 150 mg p.o. a.m. and at bedtime, Systane Ultra 1 drop ophthalmic in the eye b.i.d. p.r.n., vitamin B complex 1 tablet p.o. daily. FAMILY HISTORY: Significant for father had skin cancer, heart attack. Mother had renal failure -- on dialysis, hypertension. Sister has skin cancer. Paternal cousin has breast cancer. Brother has diabetes. SOCIAL HISTORY: , quit smoking in 1980s, smoked 1 pack a day for 22 years. No alcohol use, no drug use. REVIEW OF SYMPTOMS: As per HPI. Rest of review of systems negative. PHYSICAL EXAMINATION: GENERAL: The patient is of moderate build, not in acute distress. VITAL SIGNS: Temperature 36.5, pulse 109, respiratory rate 16, blood pressure 141/105, oxygen 95% on room air. HEENT: Pupils equal, round, and reactive to light. Oral mucosa dry. NECK: No neck masses. No JVD seen. CARDIOVASCULAR: S1, S2 heard, regular rate and rhythm, no murmur, no gallop. RESPIRATORY: Normal AP diameter. No accessory muscle use. No wheezing, no crackles. ABDOMEN: Soft, bowel sounds present, nontender. No distention. CENTRAL NERVOUS SYSTEM: Cranial nerves II-XII grossly intact, nonfocal. EXTREMITIES: No edema, no erythema. LABORATORY DATA: WBC 7.09, hemoglobin 9.6, hematocrit 32.6, platelets 292. Sodium 150, potassium 6 currently, chloride 123, BUN 59, creatinine 1.6, serum glucose 105, calcium 10.7, phosphorus 3.4, magnesium 1.6, total bilirubin 0.2, AST 13, ALT 28, alkaline phosphatase 88. Urinalysis negative. SARS-CoV-2 PCR negative. Influenza A and B PCR negative, RSV PCR negative. EKG: Normal sinus rhythm, rate of 93, no significant change was found. ASSESSMENT AND PLAN: This is a 79-year-old female who presents with hyperkalemia, acute kidney injury and hypernatremia. 1. Hyperkalemia: The patient was supposed to be on lisinopril and Lasix before, but it seemed to be stopped when she got discharged from the [facility]. Does not drink water, drinks flavored water called Zero with rupal flavor. Does not know whether it has potassium or not. We will place her on low-potassium diet. Received insulin, dextrose, Lasix, nebulizers, Kayexalate and sodium bicarbonate in the Emergency Room. We will give another dose of insulin, dextrose and Kayexalate. Check BMP q.4 hours. Consult nephrology. Monitor in the tele floor. 2. Acute kidney injury: Baseline creatinine around 1, presented with creatinine of 1.9, currently creatinine 1.65. Getting fluids. Avoid nephrotoxic agents. Hold metformin. We will follow the laboratories as above. Nephrology is consulted. 3. Hypernatremia, sodium of 150: The patient is placed on half normal saline at 125 mL per hour. Follow BMP q.4 hours. 4.Electrolyte abnormalities Hypercalcemia, calcium of 10.7: Possibly from dehydration. Magnesium 1.6, replaced in the Emergency Room. We will follow the repeat laboratories. 5. History of diabetes: Hold metformin, placed on insulin sliding scale and follow the blood sugars. 6. Hypertension: Currently on Coreg. We will monitor the blood pressure. 7. Ambulatory dysfunction: She was recently in rehabilitation. Physical therapy and occupational therapy when stable. 8. Anemia: On last admission found to have iron-deficiency anemia. Hemoglobin is 9.6 today. On iron supplements. Needs to follow up with primary care physician for anemia workup. 9. History of coronary artery disease, history of non-ST elevated myocardial infarction in 2009: On statin, beta frederick, and aspirin. 10. Hyperlipidemia: On statin. 11. History of diastolic dysfunction: Getting fluids. Monitor for volume overload. Currently not on any Lasix. 12. Deep venous thrombosis prophylaxis: Heparin subcutaneously. DISPOSITION: Closely monitor in the tele floor. Level 1 full code if chance of recovery. PT and OT prior to discharge. Social service to help with discharge planning. JOSUÉD
--- NOTE | 2020-10-10 13:11 | Consultation Report ---
DATE OF CONSULTATION: 10/10/2020 NEPHROLOGY CONSULTATION NOTE REASON FOR CONSULT: Acute renal failure with hyperkalemia. HISTORY OF PRESENT ILLNESS: The patient is a 79-year-old female with significant comorbid disease who was brought to the hospital last night because of abnormal labs showing renal failure with hyperkalemia. The patient was recently in the hospital and was discharged on 09/23/2020 to [facility]. That admission was for possible stroke. She had outpatient labs done, which showed a potassium of 7.3 and a creatinine of 2s, after which she was advised to come to the hospital. Laboratory done in the Emergency Department showed initial potassium of 7, creatinine of 1.9 and a sodium of 148. In the Emergency Department, she was treated with insulin, dextrose, Kayexalate, Lasix, nebulizer and sodium bicarbonate. Since then, she has had 2 more potassium checks and the last one shows a potassium of 5.3. The patient is unable to give me any meaningful answer to the question. She does appear to be dehydrated. She is not eating or drinking anything while in the hospital as of now. She used to be on Lasix and lisinopril, but it appears both of the medications were stopped at the time of discharge from the rehab hospital. The patient is currently getting D5 half normal saline at 125 mL per hour. She is incontinent, so we do not know how much she is urinating, but as per the nurse, she is making urine. Vital signs otherwise appear stable. No EKG changes at this time. REVIEW OF SYSTEMS: Unable to obtain secondary to patient's confusion. PAST MEDICAL AND SURGICAL HISTORY: Includes type 2 diabetes, hypertension, chronic diastolic heart failure, chronic kidney disease stage III, worsening dementia, left ventricular hypertrophy, coronary artery disease with history of ME, history of rectocele, GERD, history of kidney stones including cystourethroscopy with lithotripsy, hysterectomy, lumbar hemilaminectomy, appendicectomy. MEDICATIONS: Prior to hospitalization were reviewed and it does not appear she was taking lisinopril or any potassium supplement or Lasix. FAMILY HISTORY: Significant for dialysis in mother. Brother has diabetes. SOCIAL HISTORY: . Quit smoking in 1980s, smoked about 1 pack a day for 22 years. No alcohol, no drugs. ALLERGIES: None. REVIEW OF SYSTEMS: As per HPI. Unable to obtain detailed review of systems secondary to confusion. PHYSICAL EXAMINATION: GENERAL: Elderly white female who is not in any overt respiratory distress; however, she is quite confused and unable to give me any history. VITAL SIGNS: Blood pressure is 103/59, pulse rate 113, respiratory rate 23, temperature 37.2 degrees Celsius, 94% on room air. HEENT: Mucous membrane is dry. NECK: Supple. No jugular venous distention. CHEST: Bilaterally decreased breath sounds, but barely any inspiratory effort. CARDIOVASCULAR: S1 and S2 tachycardic, soft systolic murmur heard. ABDOMEN: Soft, nontender. EXTREMITIES: Show no edema. NEUROLOGIC: Confused, but moving all 4 extremities. Speaking on her own, not following command. LABORATORY TESTS: Creatinine at the time of discharge on 09/23 was 0.85, on admission was 1.98, this morning is 1.72. Potassium has come down from 7 to 5.3. Sodium is 148, chloride is 121, calcium is 10.2. ASSESSMENT AND PLAN: A 79-year-old female admitted with abnormal laboratories showing acute renal failure and hyperkalemia. Acute renal failure: This is prerenal. It does not appear patient was eating and drinking enough and got severely dehydrated causing hypernatremia, acute renal failure and hyperkalemia. There is a fairly strong possibility that patient may have been taking potassium supplement, lisinopril and Lasix as there have been multiple changes in the recent weeks. In any case, for the time being, we just need to hydrate her. Continue D5 water with half normal saline at 125 mL per hour. This would bring down the sodium gradually as well as potassium. Hyperkalemia has already resolved and is down to 5.3. Luckily, she did not have any EKG changes even when her potassium was 7.3. No further workup is needed for acute renal failure, hyperkalemia, or hypernatremia. At this point, we can do laboratories twice daily, so we need a panel sometime in the evening. If the serum sodium is still very high, consider changing the fluid to plain D5 water at 125 mL per hour.
[2020-10-10] MEDS: HEPARIN SOD 5,000 UNIT/0.5 ML VIAL SQ SCH ×2 (13:21→21:16)
[2020-10-10 13:32] LABS: Calcium 9.5 mg/dl (8.5-10.1); Creatinine Clr Calc Pharmacy 31.8 ml/min; Est GFR (African American) 37.4; Est GFR (Non-African American) 32.2; Potassium 5.1 mmol/L (3.5-5.1)
--- NOTE | 2020-10-10 14:15 | Electrocardiogram Report ---
Test Reason : Blood Pressure : / mmHG Vent. Rate : 093 BPM Atrial Rate : 093 BPM P-R Int : 146 ms QRS Dur : 082 ms QT Int : 318 ms P-R-T Axes : 058 -22 043 degrees QTc Int : 395 ms Normal sinus rhythm Anterior infarct , age undetermined Abnormal ECG When compared with ECG of 21-SEP-2020 12:54, No significant change was found Confirmed by David Rocha ([id number]) on 10/10/2020 2:15:10 PM Referred By: REFERRED SELF Confirmed By:David Rocha
--- NOTE | 2020-10-10 15:01 | Communication Note ---
Date of Service: October 10, 2020 The patient was seen and examined in ICU. She has a significant past medical history as mentioned in the H&P including type 2 diabetes, hypertension, degene rative disease, DLD,chronic diastolic heart failure, chronic kidney disease stage III, dementia,history of SC, vitamin D deficiency, GERD, history of nephrolithiasis,anxiety state and was brought in because of abnormal labs with potassium of more than 7, hypernatremia and VALERIY. 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 Pleasantly confused Her admission labs and EKG reviewed Potassium and creatinine have been improving Discussed with the airbrush painter Her electrolytes and kidney function will be monitored She will be followed up by Dr. Hernadez from tomorrow Dr Ihsan Pinto
[2020-10-10 18:58] LABS: BUN Creatinine Ratio 30.6 (10-20); Calcium 8.8 mg/dl (8.5-10.1); Creatinine Clr Calc Pharmacy 32.2 ml/min; Est GFR (Non-African American) 32.8
[2020-10-10] MEDS: NYSTATIN POWDER 15GM BTL EXT SCH (21:14)
[2020-10-11] MEDS ORDERED: NOREPINEPHRINE/D5W 8 MG/508 ML IV ONE (01:28)
[2020-10-11 05:12] LABS: Hematocrit (blood only) 29.7 % (37-47); Hemoglobin 8.5 g/dL (12.0-16.0); Mean Corpuscular Hemoglobin 21.4 pg (25-34); Mean Corpuscular Hgb Conc 28.6 g/dL (32-36); Mean Corpuscular Volume 74.8 fL (80-100); Platelet Count 152 K/uL (130-400); RDW Standard Deviation 74.7 fL (36.4-46.3); Red Blood Count 3.97 M/uL (4.2-5.4); White Blood Count 5.96 K/uL (4.8-10.8)
[2020-10-11 05:27] LABS: BUN Creatinine Ratio 29.3 (10-20); Calcium 8.6 mg/dl (8.5-10.1); Est GFR (African American) 47.7; Est GFR (Non-African American) 41.2; Magnesium 1.4 mg/dl (1.8-2.4); Potassium 4.3 mmol/L (3.5-5.1)
[2020-10-11 05:33] LABS: Anisocytosis Present; Basophils # (auto) 0.02 K/uL (0-0.2); Basophils % (auto) 0.3 %; Eosinophils # (auto) 0.31 K/uL (0-0.5); Eosinophils % (auto) 5.2 %; Immature Granulocytes # (auto) 0.01 K/uL (0.00-0.02); Immature Granulocytes % (auto) 0.2 %; Lymphocytes # (auto) 1.24 K/uL (1.2-3.4); Lymphocytes % (auto) 20.8 %; Monocytes # (auto) 0.54 K/uL (0.11-0.59); Monocytes % (auto) 9.1 %; Neutrophils # (auto) 3.84 K/uL (1.4-6.5); Neutrophils % (auto) 64.4 %; Ovalocytes 1+
[2020-10-11 06:06] LABS: Estimated Average Glucose 146 mg/dl; Hemoglobin A1C 6.7 % (4.5-5.6)
[2020-10-11] MEDS: HEPARIN SOD 5,000 UNIT/0.5 ML VIAL SQ SCH ×3 (06:23→20:37)
--- NOTE | 2020-10-11 08:02 | XRay Report ---
XR chest 1V portable CLINICAL HISTORY: CHF COMPARISON STUDY: 09/21/2020 FINDINGS: The heart is mildly enlarged. There is no overt failure. There is no lobar consolidation. T here are no significant pleural effusions. Increased left basilar markings are likely atelectatic alt eric an infectious/inflammatory process could appear similar. There is tracheal deviation to the rig ht, secondary to the patient's known left lobe thyroid mass/goiter IMPRESSION: 1. Mildly increased left basilar markings statistically atelectatic 2. Tracheal deviation to the right consistent with the patient's known left lobe thyroid mass/goiter 3. No evidence of failure ACT 112: Negative or not required by law. Electronically signed by: Babatunde Morin M.D. 10/11/2020 8:01 AM
[2020-10-11] MEDS ORDERED: MAGNESIUM SULFATE / D5W 1 GM/100 ML BAG IV ONE (08:10)
[2020-10-11] MEDS: PREGABALIN 150 MG CAP PO SCH ×2 (09:09→20:37)
[2020-10-11] MEDS: INSULIN ASPART 100 UNITS/ML 3 ML PEN SC SCH ×4 (09:25→20:35)
[2020-10-11] MEDS: ATORVASTATIN 40 MG TAB PO SCH (09:28)
[2020-10-11] MEDS: FERROUS SULFATE 325 MG TAB PO SCH ×2 (09:28→17:57)
[2020-10-11] MEDS: carvediloL 12.5 MG TAB PO SCH ×2 (09:28→20:37)
[2020-10-11] MEDS: PANTOprazole 40 MG TAB PO SCH (09:28)
[2020-10-11] MEDS: MAGNESIUM CHLORIDE 64MG DELAYED REL TAB PO SCH (09:29)
[2020-10-11] MEDS: ASPIRIN 325 MG ECTAB PO SCH (09:29)
[2020-10-11] MEDS: VITAMIN B COMPLEX TAB PO SCH (09:29)
[2020-10-11] MEDS: NYSTATIN POWDER 15GM BTL EXT SCH ×2 (09:32→20:37)
[2020-10-11] MEDS ORDERED: DEXTROSE 5% 1,000 ML IV ONE (10:32)
--- NOTE | 2020-10-11 11:13 | Nephrology Progress Note ---
Date of Service October 11, 2020 Assessment & Plan Admission and Anticipated Discharge Date Admission Date: October 10, 2020 Subjective subjective---- she seems much more interactive today. starting to eat a little bit but not much. PHYSICAL EXAMINATION: GENERAL: Elderly white female who is not in any overt respiratory distress; however, she is quite confused and unable to give me any history. HEENT: Mucous membrane is dry. NECK: Supple. No jugular venous distention. CHEST: Bilaterally decreased breath sounds, but barely any inspiratory effort. CARDIOVASCULAR: S1 and S2 tachycardic, soft systolic murmur heard. ABDOMEN: Soft, nontender. EXTREMITIES: Show no edema. NEUROLOGIC: Confused, but moving all 4 extremities. Speaking on her own, not following command. LABORATORY TESTS: sodium is still slightly high but creatinine trending down ASSESSMENT AND PLAN: A 79-year-old female admitted with abnormal laboratories showing acute renal failure and hyperkalemia. Acute renal failure: severe prerenal type causing both hyperkalemia and hypernatremia hyperkalemia hypernatremia overall all the labs getting better. Sodium is still high reflection of inadequate fluid intake. given this I will give 1000 mL of D5 water today. continue daily labs at this point Results & Data ([facility]) Vital Signs (Past 12 Hours) Vital Signs Temp Pulse Pulse Resp BP BP Pulse Ox 10/11/20 07:40 36.6 C 99 H 19 103/61 95 10/11/20 03:46 37.0 C 84 15 106/74 96 10/10/20 23:47 84 10/10/20 23:19 37.1 C 90 19 102/59 L 90
--- NOTE | 2020-10-11 14:49 | Hospitalist Progress Note ---
Date of Service October 11, 2020 Assessment & Plan (1) Acute hyperkalemia: Patient is a 79 yr female who presents with hyperkalemia, acute kidney injury and hypernatremia. Hyperkalemia Hypernatremia Acute Kidney Injury Dehydration Possible Metabolic Encephalopathy secondary to above Secondary to to decreased oral fluid intake Received Insulin, dextrose, lasix, Nebs, Kayexalate Cr:1.98>1.7>1.5>1.2 Sodium:148>147 Potassium:7.0>6.0>5.1>4.3 Avoid nephrotoxic agents as able Continue IV fluids as per nephrology Appreciate nephrology input Potassium levels normalized Mental status at baseline Monitor renal function, electrolytes Hypercalcemia: Calcium:10.7>8.6 Improved with IV fluids Monitor Hypomagnesemia Replete electrolytes as needed DM II HbA1C:6.7 Hold p.o. meds Continue insulin therapy Monitor BGs Hypertension Continue carvedilol Monitor Ambulatory dysfunction PT/OT Iron deficiency anemia Continue iron supplements Monitor CAD Continue aspirin, carvedilol, statin Hyperlipidemia On statin H/O Diastolic dysfunction Monitor for volume status DVT Px: Heparin SQ Admission and Anticipated Discharge Date Admission Date: October 10, 2020 Subjective Patient is seen and examined at bedside States feeling well today Offers no complaints Denies chest pain, shortness of breath, dizziness, nausea, abdominal pain Renal function improving Sodium levels elevated at 147. Review of Systems Review of Systems: All systems reviewed & are unremarkable except as noted in HPI & below Physical Exam Physical Exam: Physical Exam: Vitals signs as noted above General Appearance:Moderately built and nourished, no apparent distress Head: normocephalic, Atraumatic Eyes: normal inspection, EOMI Neck: supple, Trachea midline Respiratory/Chest: Normal breath sounds, minimal basal crackles, No accessory muscle use Cardiovascular: S1, S2, No murmur Abdomen/GI:Soft, Non tender, Bowel sounds present Extremities/Musculoskelatal:normal inspection, no edema Neurologic/Psych:AAO, grossly no focal neurological deficits Skin: normal color, warm Results & Data Results & Data ([facility]) Vital Signs (Past 12 Hours) Vital Signs Temp Pulse Pulse Resp BP Pulse Ox 10/11/20 11:45 36.8 C 74 19 101/69 95 10/11/20 08:00 94 H 10/11/20 07:40 36.6 C 99 H 19 103/61 95 10/11/20 03:46 37.0 C 84 15 106/74 96 Laboratory Results Short CBC 10/11/20 Range/Units 04:29 WBC 5.96 (4.8-10.8) K/uL Hgb 8.5 L (12.0-16.0) g/dL Hct 29.7 L (37-47) % Plt Count 152 (130-400) K/uL BMP 10/10/20 10/11/20 18:12 04:29 Sodium 145 147 H Potassium 4.0 D 4.3 Chloride 118 H 118 H Carbon Dioxide 23 25 BUN 46 H 37 H Creatinine 1.51 H 1.25 H Glucose 194 H 169 H Calcium 8.8 8.6
[2020-10-12] MEDS: HEPARIN SOD 5,000 UNIT/0.5 ML VIAL SQ SCH (05:12)
[2020-10-12 09:09] LABS: Hematocrit (blood only) 28.3 % (37-47); Hemoglobin 8.3 g/dL (12.0-16.0)
[2020-10-12 09:15] LABS: BUN Creatinine Ratio 19.4 (10-20); Calcium 8.9 mg/dl (8.5-10.1); Creatinine Clr Calc Pharmacy 44.7 ml/min; Est GFR (African American) 56.3; Est GFR (Non-African American) 48.6; Magnesium 1.7 mg/dl (1.8-2.4); Potassium 3.9 mmol/L (3.5-5.1)
[2020-10-12] MEDS: carvediloL 12.5 MG TAB PO SCH (10:18)
[2020-10-12] MEDS: FERROUS SULFATE 325 MG TAB PO SCH (10:18)
[2020-10-12] MEDS: MAGNESIUM CHLORIDE 64MG DELAYED REL TAB PO SCH (10:19)
[2020-10-12] MEDS: VITAMIN B COMPLEX TAB PO SCH (10:19)
[2020-10-12] MEDS: ASPIRIN 325 MG ECTAB PO SCH (10:19)
[2020-10-12] MEDS: ATORVASTATIN 40 MG TAB PO SCH (10:20)
[2020-10-12] MEDS: PANTOprazole 40 MG TAB PO SCH (10:20)
[2020-10-12] MEDS: NYSTATIN POWDER 15GM BTL EXT SCH (10:20)
[2020-10-12] MEDS: INSULIN ASPART 100 UNITS/ML 3 ML PEN SC SCH ×2 (10:22→13:05)
[2020-10-12] MEDS: PREGABALIN 150 MG CAP PO SCH (10:29)
--- NOTE | 2020-10-12 12:13 | Hospitalist Progress Note ---
Date of Service October 12, 2020 Assessment & Plan (1) Acute hyperkalemia: Patient is a 79 yr female who presents with hyperkalemia, acute kidney injury and hypernatremia. Hyperkalemia Hypernatremia Acute Kidney Injury Dehydration Possible Metabolic Encephalopathy secondary to above Secondary to to decreased oral fluid intake Received Insulin, dextrose, lasix, Nebs, Kayexalate Cr:1.98>1.7>1.5>1.2>1.09 Sodium:148>147>142 Potassium:7.0>6.0>5.1>4.3>3.9 Avoid nephrotoxic agents as able Received IV fluids Appreciate nephrology input Mental status at baseline Monitor renal function, electrolytes Resolved Hypercalcemia: Calcium:10.7>8.6 Improved with IV fluids Monitor Hypomagnesemia Replete electrolytes as needed DM II HbA1C:6.7 Hold p.o. meds Continue insulin therapy Monitor BGs Hypertension Continue carvedilol Monitor Ambulatory dysfunction PT/OT Iron deficiency anemia Continue iron supplements Monitor CAD Continue aspirin, carvedilol, statin Hyperlipidemia On statin H/O Diastolic dysfunction Monitor for volume status DVT Px: Heparin SQ Admission and Anticipated Discharge Date Admission Date: October 10, 2020 Subjective Patient is seen and examined at bedside Doing you well today No complaints Denies chest pain, shortness of breath, dizziness, nausea, abdominal pain Review of Systems Review of Systems: All systems reviewed & are unremarkable except as noted in HPI & below Physical Exam Physical Exam: Physical Exam: Vitals signs as noted above General Appearance:Moderately built and nourished, no apparent distress Head: normocephalic, Atraumatic Eyes: normal inspection, EOMI Neck: supple, Trachea midline Respiratory/Chest: Normal breath sounds, minimal basal crackles, No accessory muscle use Cardiovascular: S1, S2, No murmur Abdomen/GI:Soft, Non tender, Bowel sounds present Extremities/Musculoskelatal:normal inspection, no edema Neurologic/Psych:AAO, grossly no focal neurological deficits Skin: normal color, warm Results & Data Results & Data ([facility]) Vital Signs (Past 12 Hours) Vital Signs Temp Pulse Resp BP Pulse Ox 10/12/20 07:11 36.7 C 88 16 117/72 95 Laboratory Results Short CBC 10/12/20 Range/Units 08:16 Hgb 8.3 L (12.0-16.0) g/dL Hct 28.3 L (37-47) % BMP 10/12/20 08:16 Sodium 142 Potassium 3.9 Chloride 112 H Carbon Dioxide 25 BUN 21 H Creatinine 1.09 Glucose 162 H Calcium 8.9
--- NOTE | 2020-10-12 12:24 | Discharge Summary ---
Date of Service October 12, 2020 Admission HPI Per Admitting Provider CHIEF COMPLAINT: Abnormal labs. HISTORY OF PRESENT ILLNESS: A 79-year-old female with past medical history significant for type 2 diabetes, hypertension, DLD, CAD chronic diastolic heart failure, chronic kidney disease stage III, dementia, left ventricular hypertrophy, history of [place], vitamin D deficiency, history of rectocele, GERD, history of nephrolithiasis, osteoarthritis involving multiple joints, anxiety state, lives with her who is brought in because of abnormal labs. The patient was recently in the hospital and was discharged on 09/23/2020 to [facility]. At that time, she was worked up for stroke with a CTA of the head and neck, which was without any acute findings and CT lumbar spine did not show any acute fracture, it showed moderate multilevel degenerative disc disease. She was falling at home at that time and also found to have anemia, hemoglobin 7.8, iron deficiency. She was started on ferrous sulfate and to follow outpatient for workup. At the time of discharge, hemoglobin was 8.7 and she also had VALERIY, creatinine increased to 1.3, improved with fluids at that time. Lasix and lisinopril were held, but resumed at discharge to [facility].But it seems at discharge from [facility], the Lasix and lisinopril were stopped, and she has outpatient laboratories, which showed potassium of 7.3 and creatinine in 2s, so she was advised to come to the hospital. Here initially labs showed potassium of 7, creatinine of 1.9 and sodium of 148. ER treated her with insulin, dextrose, Kayexalate, Lasix, nebs and sodium bicarbonate. Repeat labs showed potassium of 6 and sodium of 150 and creatinine of 1.6, and we were called for admission. The patient is somewhat slow to answer. in the room helped with most of the history. As per , the patient drinks only 1-2 bottles of the rupal flavor Zero comes in bottles from [employer] because she does not like to drink water and she does not like to drink bottled water. Appetite is okay. After discharge from the [facility], she had diarrhea on Friday for 1 day for 3 times. No abdominal pain, no nausea, no vomiting, no chest pain, no shortness of breath. No cough, no headache, no blurred vision. Hard of hearing. No runny nose, no sore throat. Currently resting comfortably and hemodynamically stable. Admission Exam Per Admitting Provider PHYSICAL EXAMINATION: GENERAL: The patient is of moderate build, not in acute distress. VITAL SIGNS: Temperature 36.5, pulse 109, respiratory rate 16, blood pressure 141/105, oxygen 95% on room air. HEENT: Pupils equal, round, and reactive to light. Oral mucosa dry. NECK: No neck masses. No JVD seen. CARDIOVASCULAR: S1, S2 heard, regular rate and rhythm, no murmur, no gallop. RESPIRATORY: Normal AP diameter. No accessory muscle use. No wheezing, no crackles. ABDOMEN: Soft, bowel sounds present, nontender. No distention. CENTRAL NERVOUS SYSTEM: Cranial nerves II-XII grossly intact, nonfocal. EXTREMITIES: No edema, no erythema. Principal Diagnosis Hyperkalemia Hypernatremia Acute Kidney Injury Hypercalcemia Discharge Data Allergies Allergy/AdvReac Type Severity Reaction Status Date / Time oxycodone AdvReac Intermediate OVER Verified 10/10/20 03:00 SEDATED Consultations 10/10/20 06:28 ED Decision to Admit Stat 10/10/20 09:26 Consult Nephrology Routine Procedures Performed cxr: 1. Mildly increased left basilar markings statistically atelectatic 2. Tracheal deviation to the right consistent with the patient's known left lobe thyroid mass/goiter 3. No evidence of failure Hospital Course (1) Acute hyperkalemia: Patient is a 79 yr female who presents with hyperkalemia, acute kidney injury and hypernatremia. Hyperkalemia Hypernatremia Acute Kidney Injury Dehydration Possible Metabolic Encephalopathy secondary to above Secondary to to decreased oral fluid intake Received Insulin, dextrose, lasix, Nebs, Kayexalate Cr:1.98>1.7>1.5>1.2>1.09 Sodium:148>147>142 Potassium:7.0>6.0>5.1>4.3>3.9 Avoid nephrotoxic agents as able Received IV fluids Appreciate nephrology input Mental status at baseline Monitor renal function, electrolytes Resolved Hypercalcemia: Calcium:10.7>8.6 Improved with IV fluids Monitor Hypomagnesemia Replete electrolytes as needed DM II HbA1C:6.7 Hold p.o. meds Continue insulin therapy Monitor BGs Hypertension Continue carvedilol Monitor Ambulatory dysfunction PT/OT Iron deficiency anemia Continue iron supplements Monitor CAD Continue aspirin, carvedilol, statin Hyperlipidemia On statin H/O Diastolic dysfunction Monitor for volume status DVT Px: Heparin SQ Total Time Total Time Spent Total Time Spent (In Minutes): 39 MINUTES Discharge Plan Discharge Items Patient Disposition: Home - Home Health Services Reason For Visit: ABNORMAL LABS Discharge Diagnosis: Hyperkalemia Hypernatremia Acute Kidney Injury Hypercalcemia Activity: Per Instructions section Exercise/Sports: Gradually increase as tolerated Non-emergency contact: Primary Care Provider Call non-emergency contact if: you have any medication questions, your symptoms worsen, your pain is concerning for you and you have a fever Follow-up/Referrals: Case House MD [Primary Care Provider] - (Date & Time 10/18/2020 11:20 AM Provider Case House MD [facility] ) Diet: Carb Consistent or DM2 and Heart Healthy Addtl Attending Provider Instructions: Follow-up with your primary care physician Dr. House on 10/18/2020 11:20 AM as scheduled Discussed with the physician regarding possible need for adjustment of Metformin as advised. Seek immediate medical attention if your symptoms reoccur or worsen Pending Studies at Discharge: No Stand-Alone Forms: [employer], Opioid Pain Management, Work/School Release (Inpt), Smoking Cessation Medications and DC Order Prescriptions: Continued metformin 1,000 mg Tablet 1,000 mg PO QDB Qty: 0 RF: 0 omega-3 fatty acids 1,000 mg Capsule 2,000 mg PO QAM Qty: 0 RF: 0 metformin 1,000 mg Tablet 500 mg PO BID Qty: 0 RF: 0 omeprazole 20 mg Tablet,Delayed Release (Dr/Ec) 20 mg PO QAM Qty: 0 RF: 0 coenzyme Q10 100 mg Capsule 100 mg PO DAILY Qty: 0 RF: 0 atorvastatin 40 mg Tablet 40 mg PO QAM Qty: 0 RF: 0 dicyclomine 10 mg Capsule 10 mg PO QID PRN (Reason: Stomach Upset) Qty: 0 RF: 0 cholecalciferol (vitamin D3) 50,000 unit capsule 50,000 unit PO MONTHLY RF: 0 Systane Ultra 0.4-0.3 % Drops 1 drp OPHTHALMIC (EYE) BID PRN (Reason: Dry Eye(S)) RF: 0 carvedilol 12.5 mg tablet 12.5 mg PO BID RF: 0 nystatin 100,000 unit/gram Powder 1 applic TOPICAL AMHS RF: 0 magnesium chloride 64 mg magnesium Tablet 128 mg PO QAM RF: 0 vitamin B complex Tablet 1 tab PO DAILY RF: 0 pregabalin 150 mg capsule 150 mg PO AMHS RF: 0 ferrous sulfate 325 mg (65 mg iron) Tablet,Delayed Release (Dr/Ec) 325 mg PO BIDM Qty: 60 RF: 0 acetaminophen 325 mg Tablet 650 mg PO Q4H PRN (Reason: pain) Qty: 30 RF: 0 aspirin [Ecotrin] 325 mg Tablet,Delayed Release (Dr/Ec) 325 mg PO QAM Qty: 30 RF: 0 Discharge Orders: Discharge Order (Routine); Ordered 10/12/20 Ordered By: Segundo Gonsales/Other Patient Handouts: Managing Type 2 Diabetes, Managing Diabetes: The A1C Test Admission Data Admit Date/Time: 10/10/20 07:12 Attending Provider: Segundo Hernadez Admit Provider: Almas Segal Primary Care Provider: Case House Other Providers: [facility] ; Almas Segal ; Magali Dominguez Other Interventions: Discharge Summary Assessment (RN) Last Done: 10/12/20 13:36
[2020-11-04] MEDS ORDERED: ERGOCALCIFEROL 50,000 UNITS 1250 MCG CAP PO SCH (07:00)
== END 2020-10-12 14:42 | disposition home health service (06) | DRG 682 ==
LOC: ED 00:56 → 1E 07:12 → SUATTDRO 07:12 → 1E 08:26 → 3W 10-11 14:28

== ENCOUNTER 2021-03-01 19:45 | Inpatient (IN) ==
--- NOTE | 2021-03-01 20:14 | Emergency Department Note ---
History of Present Illness General Chief complaint: Fall Stated complaint: Falls Time Seen by Provider: 03/01/21 19:59 Source: patient and family Mode of arrival: EMS History of Present Illness Provider complaint: Frequent falls Onset (ago): day(s) Location: lower extremity, left and right Pain Consistency: + intermittent Quality: + other (Unsure how she falls) Relieved By: + none Associated symptoms: + weakness (Generalized); no chest pain, no cough, no fever/chills, no headaches, no nausea/vomiting or no shortness of breath This is a 80-year-old female brought in by ambulance for frequent falls at home. The patient and her are providing history. He states that the patient has fallen 3 times over the past 4 days. The patient last fell today while going to the bathroom. He states that she normally uses a walker in the wheelchair. She was using her walker to go the bathroom and he went to get her wheelchair when he came back and she was on the ground. She thinks that her left leg gave out because she has pain in the left ankle. She states that the left ankle has been bothering her for over a week. She saw Dr. Mcneil for this about a week ago and he stated that it was bruised and she did not need an x- ray. She fell out of bed 3 days ago and then 4 days ago fell while going to the bathroom. She is not sure why she fell each time. She states that her legs give out. She denies having other symptoms prior to falling including lightheadedness or chest pain or shortness of breath or palpitations. Her states that she did not injure herself during the falls although he admits that he did not witness them all. She does not believe she hit her head today but does not know she hit her head on other occasions. She denies any head or neck pain. She denies any hip or back pain. She denies any abdominal pain, vomiting, diarrhea, black or bloody stools or urinary symptoms. She has had no fever or cough or cold symptoms. She has been vaccinated for COVID-19. Home Medications Medication Instructions Recorded Confirmed Type metformin 1,000 mg tablet 500 mg PO TIDM #0 10/15/13 03/01/21 History omega-3 fatty acids 1,000 mg 2,000 mg PO QAM #0 10/15/13 03/01/21 History capsule omeprazole 20 mg tablet,delayed 20 mg PO QAM #0 10/15/13 03/01/21 History release coenzyme Q10 100 mg capsule 100 mg PO QAM #0 01/04/16 03/01/21 History atorvastatin 40 mg tablet 40 mg PO QAM #0 04/09/17 03/01/21 History dicyclomine 10 mg capsule 10 mg PO TIDM #0 04/09/17 03/01/21 History cholecalciferol (vitamin D3) 1,250 50,000 unit PO MONTHLY 05/12/19 03/01/21 History mcg (50,000 unit) capsule peg 400-propylene glycol 0.4 %-0.3 1 drp OPHTHALMIC (EYE) QID PRN 05/12/19 03/01/21 History % eye drops (Systane Ultra) pregabalin 150 mg capsule 150 mg PO AMHS 09/21/20 03/01/21 History vitamin B complex 1 tab PO DAILY 09/21/20 03/01/21 History acetaminophen 325 mg tablet 650 mg PO Q4H PRN #30 tab 09/23/20 03/01/21 Rx aspirin 325 mg tablet,delayed 325 mg PO QAM #30 tab 09/23/20 03/01/21 Rx release (Ecotrin) carvedilol 12.5 mg tablet 6.25 mg PO BID 10/10/20 03/01/21 History magnesium chloride 128 mg PO QAM 10/10/20 03/01/21 History nystatin 100,000 unit/gram topical 1 applic TOPICAL QID PRN 10/10/20 03/01/21 History powder ferrous sulfate 325 mg (65 mg 325 mg PO DAILY 03/01/21 03/01/21 History iron) tablet,delayed release furosemide 20 mg tablet 20 mg PO QAM 03/01/21 03/01/21 History glipizide 5 mg tablet, extended 5 mg PO QAM 03/01/21 03/01/21 History release 24 hr lisinopril 20 mg tablet 20 mg PO DAILY 03/01/21 03/01/21 History lorazepam 0.5 mg tablet 0.5 mg PO BID 03/01/21 03/01/21 History Allergies Allergy/AdvReac Type Severity Reaction Status Date / Time oxycodone AdvReac Intermediate OVER Verified 03/01/21 20:32 SEDATED Past Med/Surg History Medical History Anxiety CKD (chronic kidney disease), stage III Diabetes mellitus, type II Dry eye syndrome Dyslipidemia GERD (gastroesophageal reflux disease) Hypertension Kidney stones Osteoarthritis Peripheral neuropathy Surgical History History of appendectomy History of carpal tunnel release left History of cataract surgery RT/LEFT History of discectomy LUMBAR (TOTAL 2 LUMBAR DISCECTOMY) History of hysterectomy History of tooth extraction Hx of colonoscopy with polypectomy Hx of eye surgery LASER PROCEDURE S/P cystoscopy with ureteral stent placement 05/13/19 MAC Family History Brother Family history of diabetes mellitus Other Cancer Heart disease Kidney disease Social History Smoking Status: Never smoker Tobacco Type: Cigarettes Second Hand Exposure: No; Hx Alcohol Use: No Hx Substance Use: No Preferred Language: Icelandic Communication Ability: Effective Special Library 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 and A total of 10 systems reviewed and were otherwise negative Physical Exam Vital Signs Vital Signs - 24 hr 03/01/21 20:15 03/01/21 22:10 03/02/21 00:19 Temperature 37.0 C Temperature Source Oral Pulse Rate 88 Pulse Rate [Apical] 88 84 93 H Pulse Rhythm [Apical] Regular Pulse Strength [Apical] Normal Respiratory Rate 20 20 18 Respiratory Effort / Characteristics Spontaneous Respiratory Depth Normal Blood Pressure 142/54 H Blood Pressure [Left Arm] 140/53 L 161/82 H 132/114 H Blood Pressure Mean 83 Blood Pressure Mean [Left Arm] 82 108 120 Blood Pressure Position Sitting Blood Pressure Position [Left Arm] Lying Pulse Oximetry 90 99 91 Oxygen Delivery Method Room Air Room Air Room Air Sepsis Recent Fever Within 48 Hours No Sepsis New/Unexplained Change in Mental Status N/A Sepsis Action Taken by Nursing No Action Required Constitutional: Vital signs reviewed. Eyes: Pupils are equal round reactive to light. Conjunctiva are noninjected. ENT: Pharynx is clear without erythema or exudate. Mucous membranes are moist. Neck supple without meningeal signs. Respiratory: Clear to auscultation bilaterally. Breath sounds are equal bilaterally. Cardiovascular: Regular rate and rhythm. No rubs or gallops. GI: Soft, nondistended and nontender. Bowel sounds are present. Musculoskeletal: No peripheral edema. No tenderness to the hips or knees. She does have tenderness to the lateral malleolus of the left ankle without erythema or increased warmth. Normal distal pulse. Integumentary: No cyanosis. or jaundice. Neurologic: The patient is awake and alert. Cranial nerves II-XII are intact but very hard of hearing. Motor is 5 out of 5 in the upper extremities and 4-5 in the lower extremities bilaterally. Sensation is intact to light touch all extremities. Normal speech. No pronator drift. Psychiatric: Normal affect. Not anxious appearing. Course Administered Medications Discontinued Medications Carvedilol (Carvedilol 6.25 Mg Tab) 6.25 mg PO NOW STA Stop: 03/01/21 22:27 Last Admin: 03/01/21 23:20 Dose: 6.25 mg Documented by: [id number] Albumin Human (Albumin 25%) 12.5 gm in 50 mls @ 50 mls/hr IV Q1H URI Stop: 03/02/21 00:29 Last Admin: 03/02/21 00:51 Dose: 50 mls/hr Documented by: [id number] Infusion: 03/02/21 00:51 Dose: 50 mls/hr Documented by: [id number] Admin: 03/02/21 00:17 Dose: 50 mls/hr Documented by: [id number] Insulin Glargine (Insulin Glargine Solostar 100 Units/Ml 3 Ml Pen) 5 units SC NOW STA Stop: 03/02/21 00:14 Last Admin: 03/02/21 00:52 Dose: 5 units Documented by: [id number] Cosigned by: [id number] Medical Decision Making Differential Diagnosis Ankle sprain, ankle fracture, hypoglycemia, metabolic derangement, electrolyte abnormality, VALERIY, cardiac, infection Medical Records Attestation: I reviewed the patient's medical records. I did perform a limited focused review of portions of the patient's old chart on the electronic medical record. The patient was admitted in October of this year for hyperkalemia and other electrolyte abnormalities. Home Medications Current Medication List: was personally reviewed by me Laboratory Data Attestation: I reviewed the patient's lab results. Result diagrams: 03/01/21 20:52 03/01/21 20:52 Lab Results 03/01/21 03/01/21 03/01/21 Range/Units 20:31 20:31 20:52 WBC 8.00 (4.8-10.8) K/uL RBC 4.08 L (4.2-5.4) M/uL Hgb 11.4 L (12.0-16.0) g/dL Hct 36.6 L (37-47) % MCV 89.7 (80-100) fL MCH 27.9 (25-34) pg MCHC 31.1 L (32-36) g/dL RDW Std Deviation 55.8 H (36.4-46.3) fL RDW Coeff of Pia 17.1 H (11.5-14.5) % Plt Count 155 (130-400) K/uL MPV 10.5 H (7.4-10.4) fL Immature Gran % (Auto) 0.9 % Neut % (Auto) 62.6 % Lymph % (Auto) 23.8 % [place] % (Auto) 10.4 % Eos % (Auto) 1.9 % Baso % (Auto) 0.4 % Neut # (Auto) 5.02 (1.4-6.5) K/uL Lymph # (Auto) 1.90 (1.2-3.4) K/uL [place] # (Auto) 0.83 H (0.11-0.59) K/uL Eos # (Auto) 0.15 (0-0.5) K/uL Baso # (Auto) 0.03 (0-0.2) K/uL Immature Gran # (Auto) 0.07 H (0.00-0.02) K/uL Sodium (136-145) mmol/L Potassium (3.5-5.1) mmol/L Chloride (98-107) mmol/L Carbon Dioxide (21-32) mmol/L Anion Gap (3-11) BUN (7-18) mg/dl Creatinine (0.6-1.2) mg/dl Est Cr Clr Drug Dosing ml/min Est GFR ( Amer) ml/min Est GFR (Non-Af Amer) ml/min BUN/Creatinine Ratio (10-20) Glucose (70-99) mg/dl POC Glucose (70-99) mg/dl Calcium (8.5-10.1) mg/dl Magnesium (1.8-2.4) mg/dl Total Bilirubin (0.2-1) mg/dl AST (15-37) U/L ALT (12-78) U/L Alkaline Phosphatase (45-117) U/L Total Creatine Kinase (26-192) U/L Troponin I (0-0.045) ng/ml Total Protein (6.4-8.2) gm/dl Albumin (3.4-5.0) gm/dl Globulin (2.5-4.0) gm/dl Albumin/Globulin Ratio (0.9-2) TSH (0.300-4.500) uIu/ml Urine Color Urine Appearance (Clear) Urine pH (4.5-7.5) Ur Specific [place] (1.000-1.030) Urine Protein (Negative) Urine Glucose (UA) (Negative) Urine Ketones (Negative) Urine Blood (Negative) Urine Nitrite (Negative) Urine Bilirubin (Negative) Urine Urobilinogen (Negative) Ur Leukocyte Esterase (Negative) COVID-19 Eval Order Covid19 at [facility] SARS-CoV-2 (PCR) NEGATIVE (Negative) 03/01/21 03/02/21 03/02/21 Range/Units 20:52 00:41 00:50 WBC (4.8-10.8) K/uL RBC (4.2-5.4) M/uL Hgb (12.0-16.0) g/dL Hct (37-47) % MCV (80-100) fL MCH (25-34) pg MCHC (32-36) g/dL RDW Std Deviation (36.4-46.3) fL RDW Coeff of Pia (11.5-14.5) % Plt Count (130-400) K/uL MPV (7.4-10.4) fL Immature Gran % (Auto) % Neut % (Auto) % Lymph % (Auto) % [place] % (Auto) % Eos % (Auto) % Baso % (Auto) % Neut # (Auto) (1.4-6.5) K/uL Lymph # (Auto) (1.2-3.4) K/uL [place] # (Auto) (0.11-0.59) K/uL Eos # (Auto) (0-0.5) K/uL Baso # (Auto) (0-0.2) K/uL Immature Gran # (Auto) (0.00-0.02) K/uL Sodium 140 (136-145) mmol/L Potassium 4.9 (3.5-5.1) mmol/L Chloride 110 H (98-107) mmol/L Carbon Dioxide 23 (21-32) mmol/L Anion Gap 6.0 (3-11) BUN 35 H (7-18) mg/dl Creatinine 2.43 H (0.6-1.2) mg/dl Est Cr Clr Drug Dosing 20.4 ml/min Est GFR ( Amer) 21.2 ml/min Est GFR (Non-Af Amer) 18.3 ml/min BUN/Creatinine Ratio 14.3 (10-20) Glucose 179 H (70-99) mg/dl POC Glucose 170 H (70-99) mg/dl Calcium 9.0 (8.5-10.1) mg/dl Magnesium 1.9 (1.8-2.4) mg/dl Total Bilirubin 0.4 (0.2-1) mg/dl AST 19 (15-37) U/L ALT 27 (12-78) U/L Alkaline Phosphatase 74 (45-117) U/L Total Creatine Kinase 299 H (26-192) U/L Troponin I < 0.015 (0-0.045) ng/ml Total Protein 7.6 (6.4-8.2) gm/dl Albumin 2.8 L (3.4-5.0) gm/dl Globulin 4.8 H (2.5-4.0) gm/dl Albumin/Globulin Ratio 0.6 L (0.9-2) TSH 0.421 (0.300-4.500) uIu/ml Urine Color Yellow Urine Appearance Cloudy A (Clear) Urine pH 5.0 (4.5-7.5) Ur Specific [place] 1.016 (1.000-1.030) Urine Protein 2+ H (Negative) Urine Glucose (UA) Negative (Negative) Urine Ketones Trace H (Negative) Urine Blood 1+ H (Negative) Urine Nitrite Negative (Negative) Urine Bilirubin Negative (Negative) Urine Urobilinogen Negative (Negative) Ur Leukocyte Esterase 1+ H (Negative) COVID-19 Eval Order SARS-CoV-2 (PCR) (Negative) Imaging Data Radiologist's Impression: Ankle X-Ray 03/01/21 20:08 LEFT ANKLE 3 VIEWS CLINICAL HISTORY: Left ankle injury. FINDINGS: 3 views of the left ankle are obtained. No prior studies are available for comparison at the time of dictation. The skeletal structures are osteopenic. There is a minimally displaced spiral fracture of the distal fibula. Overlying soft tissue edema is noted. No additional fracture is identified. The ankle mortise is maintained. There are dorsal and plantar calcaneal enthesophytes. A joint effusion is noted. IMPRESSION: Minimally displaced spiral fracture of the distal fibula. Electronically signed by: Jerry Heart M.D. 03/01/2021 8:30 PM Chest X-Ray 03/01/21 20:08 SINGLE VIEW CHEST CLINICAL HISTORY: Generalized weakness. FINDINGS: 2 AP, portable, upright chest radiographs are compared to study dated 10/11/2020. The examination is degraded by portable technique and patient rotation. Rightward deviation of the trachea is unchanged and related to a thyroid goiter. The heart is enlarged noting atherosclerotic calcification of th e thoracic aorta. There is pulmonary vascular congestion. Atelectasis is noted at the lung bases. No large pleural effusion or pneumothorax is seen. The skeletal structures are osteopenic. The bony thorax is grossly intact. IMPRESSION: Cardiomegaly with evidence of congestive failure. ACT 112: Negative or not required by law. Electronically signed by: Jerry Heart M.D. 03/01/2021 8:31 PM [facility] Patient: SHIRLEY TREVIZO (Female) : 42 Status: ER Date: 03/01/21 21:19 Room #: History: dizzy Slices: 58 Priors: Tech: Lawrence Ling @ [phone] Exams: CT HEAD Contrast: Accession Numbers: [id number] Referring Physician: RYAN YUAN Preliminary Findings Only See Final Report For Complete Findings CT HEAD: No intracranial hemorrhage, mass-effect or midline shift. There is no abnormal extra axial fluid collection. No evidence of acute infarct. Mild periventricular white matter hypodensities are most consistent with chronic microangiopathy. There are dystrophic calcifications of the bilateral cerebellum. The visualized paranasal sinuses and mastoid air cells are clear. No fracture. Radiologist: Kathrine Mills MD Study ready at 21:22 and initial results transmitted at 21:57 ECG Data Attestation: I personally reviewed and interpreted this ECG as follows: Indication: + weakness Rate (beats per minute): 93 Rhythm: + normal sinus ECG Findings: + Q waves and + Other (Low voltage QRS); no PVCs Head Trauma GCS Score: 15 MDM Narrative I did evaluate the patient as noted above. The patient is presenting with several falls this week. She is not sure how she fell but does state that she has been having pain in her left ankle for about a week. She saw her doctor for this but he did not feel she needed an x-ray. She does complain of continued pa in to that left ankle. She is not sure if she hit her head earlier this week but states she did not hit her head today. IV access was established. I did place an order for continuous cardiac monitoring. The monitor showed normal sinus rhythm at a rate of 90 bpm. I did order and personally review the patient's 12-lead EKG as described above. She has no acute ischemic changes. I did order and personally reviewed the images of the patient's chest x-ray and left ankle x-rays as described above. She has cardiomegaly with some congestive changes on chest x-ray. Her ankle x-ray demonstrates a fracture of the distal fibula. She was placed in a walking boot. I did order a urine analysis. She does not have a UTI. I did order and review the patient's blood work as noted in the electronic medical record. Her white count is 8. Hemoglobin is 11.4. Platelet count is within normal limits. Electrolytes are unremarkable other than a chloride of 110. Her creatinine is elevated 2.43 which is above her baseline. BUN is 35. Glucose is elevated at 179. Troponin is negative. I did order a CT of the head. I did review the images myself as well as the radiology report as described above. There is no evidence of acute intracranial abnormality. I did discuss the test results with the patient and her . She states she has been eating and drinking. I did not give her IV fluids here as she has a history of CHF and has congestive changes on x-ray. I did recommend hospitalization for further care and evaluation. I did discuss case with the hospitalist and intern product marketing manager. Impression & Plan Acute kidney injury superimposed on chronic kidney disease, Anemia, Falls frequently, Fracture of distal end of fibula Discharge Plan Visit Data Chief Complaint: Fall Stated Complaint: Falls ED Provider: Ryan Yuan Discharge Problem: Acute kidney injury superimposed on chronic kidney disease, Anemia, Falls frequently, Fracture of distal end of fibula Patient Disposition: Being Evaluated by Hospitalist Forms Stand Alone Forms: My [facility] Prescriptions Prescriptions: No Action omega-3 fatty acids 1,000 mg Capsule 2,000 mg PO QAM Qty: 0 RF: 0 metformin 1,000 mg Tablet 500 mg PO TIDM Qty: 0 RF: 0 omeprazole 20 mg Tablet,Delayed Release (Dr/Ec) 20 mg PO QAM Qty: 0 RF: 0 coenzyme Q10 100 mg Capsule 100 mg PO QAM Qty: 0 RF: 0 atorvastatin 40 mg Tablet 40 mg PO QAM Qty: 0 RF: 0 dicyclomine 10 mg Capsule 10 mg PO TIDM Qty: 0 RF: 0 cholecalciferol (vitamin D3) 50,000 unit capsule 50,000 unit PO MONTHLY RF: 0 Systane Ultra 0.4-0.3 % Drops 1 drp OPHTHALMIC (EYE) QID PRN (Reason: Dry Eye(S)) RF: 0 carvedilol 12.5 mg tablet 6.25 mg PO BID RF: 0 nystatin 100,000 unit/gram Powder 1 applic TOPICAL QID PRN (Reason: skin rash) RF: 0 magnesium chloride 64 mg magnesium Tablet 128 mg PO QAM RF: 0 vitamin B complex Tablet 1 tab PO DAILY RF: 0 pregabalin 150 mg capsule 150 mg PO AMHS RF: 0 acetaminophen 325 mg Tablet 650 mg PO Q4H PRN (Reason: pain) Qty: 30 RF: 0 aspirin [Ecotrin] 325 mg Tablet,Delayed Release (Dr/Ec) 325 mg PO QAM Qty: 30 RF: 0 lorazepam 0.5 mg tablet 0.5 mg PO BID RF: 0 glipizide 5 mg tablet extended release 24hr 5 mg PO QAM RF: 0 furosemide 20 mg tablet 20 mg PO QAM RF: 0 lisinopril 20 mg tablet 20 mg PO DAILY RF: 0 ferrous sulfate 325 mg (65 mg iron) tablet,delayed release (DR/EC) 325 mg PO DAILY RF: 0 Referrals Referrals: [facility] MD [Primary Care Provider] -
--- NOTE | 2021-03-01 20:31 | XRay Report ---
LEFT ANKLE 3 VIEWS CLINICAL HISTORY: Left ankle injury. FINDINGS: 3 views of the left ankle are obtained. No prior studies are available for comparison at th e time of dictation. The skeletal structures are osteopenic. There is a minimally displaced spiral fr acture of the distal fibula. Overlying soft tissue edema is noted. No additional fracture is identifi ed. The ankle mortise is maintained. There are dorsal and plantar calcaneal enthesophytes. A joint ef fusion is noted. IMPRESSION: Minimally displaced spiral fracture of the distal fibula. Electronically signed by: Jerry Heart M.D. 03/01/2021 8:30 PM
--- NOTE | 2021-03-01 20:32 | XRay Report ---
SINGLE VIEW CHEST CLINICAL HISTORY: Generalized weakness. FINDINGS: 2 AP, portable, upright chest radiographs are compared to study dated 10/11/2020. The examina tion is degraded by portable technique and patient rotation. Rightward deviation of the trachea is un changed and related to a thyroid goiter. The heart is enlarged noting atherosclerotic calcification o f the thoracic aorta. There is pulmonary vascular congestion. Atelectasis is noted at the lung bases. No large pleural effusion or pneumothorax is seen. The skeletal structures are osteopenic. The bony thorax is grossly intact. IMPRESSION: Cardiomegaly with evidence of congestive failure. ACT 112: Negative or not required by law. Electronically signed by: Jerry Heart M.D. 03/01/2021 8:31 PM
[2021-03-01 21:14] LABS: Basophils # (auto) 0.03 K/uL (0-0.2); Basophils % (auto) 0.4 %; Eosinophils # (auto) 0.15 K/uL (0-0.5); Eosinophils % (auto) 1.9 %; Hematocrit (blood only) 36.6 % (37-47); Hemoglobin 11.4 g/dL (12.0-16.0); Immature Granulocytes # (auto) 0.07 K/uL (0.00-0.02); Immature Granulocytes % (auto) 0.9 %; Lymphocytes % (auto) 23.8 %; Mean Corpuscular Hemoglobin 27.9 pg (25-34); Mean Corpuscular Hgb Conc 31.1 g/dL (32-36); Mean Corpuscular Volume 89.7 fL (80-100); Mean Platelet Volume 10.5 fL (7.4-10.4); Monocytes # (auto) 0.83 K/uL (0.11-0.59); Monocytes % (auto) 10.4 %; Neutrophils # (auto) 5.02 K/uL (1.4-6.5); Neutrophils % (auto) 62.6 %; Platelet Count 155 K/uL (130-400); RDW Coefficient of Variation 17.1 % (11.5-14.5); RDW Standard Deviation 55.8 fL (36.4-46.3); Red Blood Count 4.08 M/uL (4.2-5.4)
[2021-03-01 21:23] LABS: Albumin Level 2.8 gm/dl (3.4-5.0); Aspartate Aminotransferase 19 U/L (15-37); BUN Creatinine Ratio 14.3 (10-20); Blood Urea Nitrogen 35 mg/dl (7-18); Carbon Dioxide 23 mmol/L (21-32); Chloride 110 mmol/L (98-107); Creatinine Clr Calc Pharmacy 20.4 ml/min; Est GFR (African American) 21.2 ml/min; Est GFR (Non-African American) 18.3 ml/min; Glucose 179 mg/dl (70-99); Magnesium 1.9 mg/dl (1.8-2.4); Potassium 4.9 mmol/L (3.5-5.1); Sodium 140 mmol/L (136-145)
[2021-03-01 21:34] LABS: Alanine Aminotransferase 27 U/L (12-78); Albumin Globulin Ratio 0.6 (0.9-2); Alkaline Phosphatase 74 U/L (45-117); Bilirubin,Total 0.4 mg/dl (0.2-1); Globulin 4.8 gm/dl (2.5-4.0); Thyroid Stimulating Hormone 0.421 uIu/ml (0.300-4.500); Total Protein 7.6 gm/dl (6.4-8.2); Troponin I < 0.015 ng/ml (0-0.045)
[2021-03-01] MEDS ORDERED: carvediloL 6.25 MG TAB PO STA (22:26)
[2021-03-01 22:45] LABS: Creatine Kinase 299 U/L (26-192)
[2021-03-01] MEDS: ALBUMIN 25% 12.5 GM/50 ML VIAL IV SCH (23:20)
--- NOTE | 2021-03-02 00:03 | History & Physical Report ---
Date of Service March 02, 2021 Assessment & Plan (1) Acute kidney injury superimposed on chronic kidney disease: Plan: Recurrent issue Patient presenting with congestion on x-ray but denies shortness of breath/fluid retention symptoms. chronic diastolic heart failure (EF 50 to 55%, TTE 2018), equivocal volume status given kidney dysfunction and pulmonary congestion hypertension, elevated secondary discomfort history CVA DM2 on oral medications, suboptimal control as of recent hemoglobin A1c of 8.07 January 2011 chronic anemia, hemoglobin at baseline Asymptomatic pyuria, no sepsis for now Traumatic left fibula fracture secondary to recurrent falls/ambulatory dysfunction Splint applied at the ER anxiety disorder/dementia as per records, at baseline as per past tobacco abuse Medical telemetry given elevated BP Monitor creatinine response to IVF (albumin preferred over crystalloid given pulmonary congestion on CXR) Renal ultrasound if without improvement in kidney function Appropriate to hold home VEE inhibitor, home diuretic until creatinine back to baseline Nephrology consult Re: ARF on CKD Facilitate home Coreg, may need dose titration Basal insulin, ISS BG goal 1 10-1 40, carb count coverage Follow urine CS, hold off on antibiotics for now Orthopedics consult Re: Left tibia fracture (UOC as per patient's 's request.) PT OT eval DVT prophylaxis. Heparin subcu Full code as per , Mr Chance Vargas. He requests updates from providers through [phone]. Text document was generated using [employer] voice recognition software. It may contain grammatical or spelling errors. Kindly contact undersigned for clarification of any documentation item in question. History of Present Illness Chief Complaint: Frequent falls, left leg pain Primary Care Provider: [facility] MD History obtained from patient, family, and records. Patient is a fair historian. Medical history significant for chronic diastolic heart failure (EF 50 to 55%, TTE 2019), hypertension, hyperlipidemia, history CVA, DM2 on oral medications, CRI (baseline creatinine 1.3 ), chronic anemia (baseline hemoglobin 11), anxiety disorder, dementia as per records, past tobacco abuse. Last confinement October 2020 for hyperkalemia and prerenal acute renal failure (creatinine 1.98). Renal function improved with conservative management. 4 days ago, patient falling a lot at home. Losing balance and legs giving out. No headache, no chest pain, no S OB, no syncope. Fair appetite as per . Denies fluid retention/flank pain/abdominal pain. Denies inordinate intake of NSAIDs. Patient brought by to the ER. 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, lives with Allergies Allergy/AdvReac Type Severity Reaction Status Date / Time oxycodone AdvReac Intermediate OVER Verified 03/01/21 20:32 SEDATED Home Medications Medication Instructions Recorded Confirmed Type metformin 1,000 mg tablet 500 mg PO TIDM #0 10/15/13 03/01/21 History omega-3 fatty acids 1,000 mg 2,000 mg PO QAM #0 10/15/13 03/01/21 History capsule omeprazole 20 mg tablet,delayed 20 mg PO QAM #0 10/15/13 03/01/21 History release coenzyme Q10 100 mg capsule 100 mg PO QAM #0 01/04/16 03/01/21 History atorvastatin 40 mg tablet 40 mg PO QAM #0 04/09/17 03/01/21 History dicyclomine 10 mg capsule 10 mg PO TIDM #0 04/09/17 03/01/21 History cholecalciferol (vitamin D3) 1,250 50,000 unit PO MONTHLY 05/12/19 03/01/21 History mcg (50,000 unit) capsule peg 400-propylene glycol 0.4 %-0.3 1 drp OPHTHALMIC (EYE) QID PRN 05/12/19 03/01/21 History % eye drops (Systane Ultra) pregabalin 150 mg capsule 150 mg PO AMHS 09/21/20 03/01/21 History vitamin B complex 1 tab PO DAILY 09/21/20 03/01/21 History acetaminophen 325 mg tablet 650 mg PO Q4H PRN #30 tab 09/23/20 03/01/21 Rx aspirin 325 mg tablet,delayed 325 mg PO QAM #30 tab 09/23/20 03/01/21 Rx release (Ecotrin) carvedilol 12.5 mg tablet 6.25 mg PO BID 10/10/20 03/01/21 History magnesium chloride 128 mg PO QAM 10/10/20 03/01/21 History nystatin 100,000 unit/gram topical 1 applic TOPICAL QID PRN 10/10/20 03/01/21 History powder ferrous sulfate 325 mg (65 mg 325 mg PO DAILY 03/01/21 03/01/21 History iron) tablet,delayed release furosemide 20 mg tablet 20 mg PO QAM 03/01/21 03/01/21 History glipizide 5 mg tablet, extended 5 mg PO QAM 03/01/21 03/01/21 History release 24 hr lisinopril 20 mg tablet 20 mg PO DAILY 03/01/21 03/01/21 History lorazepam 0.5 mg tablet 0.5 mg PO BID 03/01/21 03/01/21 History Past Med/Surg History Medical History Anxiety CKD (chronic kidney disease), stage III Diabetes mellitus, type II Dry eye syndrome Dyslipidemia GERD (gastroesophageal reflux disease) Hypertension Kidney stones Osteoarthritis Peripheral neuropathy Surgical History History of appendectomy History of carpal tunnel release left History of cataract surgery RT/LEFT History of discectomy LUMBAR (TOTAL 2 LUMBAR DISCECTOMY) History of hysterectomy History of tooth extraction Hx of colonoscopy with polypectomy Hx of eye surgery LASER PROCEDURE S/P cystoscopy with ureteral stent placement 05/13/19 MAC Family History Brother Family history of diabetes mellitus Other Cancer Heart disease Kidney disease Social History Smoking Status: Former smoker Tobacco Type: Cigarettes Second Hand Exposure: No; Hx Alcohol Use: No Hx Substance Use: No Preferred Language: Slovenian Nutrition Teacher Required: No Beliefs That Will Affect Care: None marital status: Current Living Situation: Spouse current occupational status: retired Feels Safe at Home: Yes Assistive Devices: Denture - Upper, Denture - Lower and Walker Review of Systems Review of Systems: As per HPI, all 10 systems reviewed, all other ROS negative Physical Exam Physical Exam: GENERAL: Comfortable, slightly hard of hearing, obese, no respiratory distress SKIN: Pallor,, warm HEENT: Pale palpebral conjunctivae, no ptosis, dry buccal mucosa NECK : Supple, short neck, no tenderness CHEST : CTA, no tenderness HEART : RRR, no obvious murmurs ABDOMEN: Marked abdominal distention, nontender EXTREMITIES : Minimal LE swelling, LLE tenderness, no other conspicuous deformities noted NEUROLOGIC : Coherent, slightly hard of hearing, mild dysarthria, no facial asymmetry, gait and stance not assessed Results & Data Results & Data ([facility]) Vital Signs (Past 12 Hours) Vital Signs Temp Pulse Pulse Resp BP BP Pulse Ox 03/01/21 22:10 84 20 161/82 H 99 03/01/21 20:15 37.0 C 88 88 20 142/54 H 140/53 L 90 Laboratory Results Laboratory Results WBC 8.00 K/uL (4.8-10.8) 03/01/21 20:52 RBC 4.08 M/uL (4.2-5.4) L 03/01/21 20:52 Hgb 11.4 g/dL (12.0-16.0) L 03/01/21 20:52 Hct 36.6 % (37-47) L 03/01/21 20:52 MCV 89.7 fL (80-100) 03/01/21 20:52 MCH 27.9 pg (25-34) 03/01/21 20:52 MCHC 31.1 g/dL (32-36) L 03/01/21 20:52 RDW Std Deviation 55.8 fL (36.4-46.3) H 03/01/21 20:52 RDW Coeff of Pia 17.1 % (11.5-14.5) H 03/01/21 20:52 Plt Count 155 K/uL (130-400) 03/01/21 20:52 MPV 10.5 fL (7.4-10.4) H 03/01/21 20:52 Immature Gran % (Auto) 0.9 % 03/01/21 20:52 Neut % (Auto) 62.6 % 03/01/21 20:52 Lymph % (Auto) 23.8 % 03/01/21 20:52 [place] % (Auto) 10.4 % 03/01/21 20:52 Eos % (Auto) 1.9 % 03/01/21 20:52 Baso % (Auto) 0.4 % 03/01/21 20:52 Neut # (Auto) 5.02 K/uL (1.4-6.5) 03/01/21 20:52 Lymph # (Auto) 1.90 K/uL (1.2-3.4) 03/01/21 20:52 [place] # (Auto) 0.83 K/uL (0.11-0.59) H 03/01/21 20:52 Eos # (Auto) 0.15 K/uL (0-0.5) 03/01/21 20:52 Baso # (Auto) 0.03 K/uL (0-0.2) 03/01/21 20:52 Immature Gran # (Auto) 0.07 K/uL (0.00-0.02) H 03/01/21 20:52 Sodium 140 mmol/L (136-145) 03/01/21 20:52 Potassium 4.9 mmol/L (3.5-5.1) 03/01/21 20:52 Chloride 110 mmol/L (98-107) H 03/01/21 20:52 Carbon Dioxide 23 mmol/L (21-32) 03/01/21 20:52 Anion Gap 6.0 (3-11) 03/01/21 20:52 BUN 35 mg/dl (7-18) H 03/01/21 20:52 Creatinine 2.43 mg/dl (0.6-1.2) H 03/01/21 20:52 Est Cr Clr Drug Dosing 20.4 ml/min 03/01/21 20:52 Est GFR ( Amer) 21.2 ml/min 03/01/21 20:52 Est GFR (Non-Af Amer) 18.3 ml/min 03/01/21 20:52 BUN/Creatinine Ratio 14.3 (10-20) 03/01/21 20:52 Glucose 179 mg/dl (70-99) H 03/01/21 20:52 Calcium 9.0 mg/dl (8.5-10.1) 03/01/21 20:52 Magnesium 1.9 mg/dl (1.8-2.4) 03/01/21 20:52 Total Bilirubin 0.4 mg/dl (0.2-1) 03/01/21 20:52 AST 19 U/L (15-37) 03/01/21 20:52 ALT 27 U/L (12-78) 03/01/21 20:52 Alkaline Phosphatase 74 U/L (45-117) 03/01/21 20:52 Total Creatine Kinase 299 U/L (26-192) H 03/01/21 20:52 Troponin I < 0.015 ng/ml (0-0.045) 03/01/21 20:52 Total Protein 7.6 gm/dl (6.4-8.2) 03/01/21 20:52 Albumin 2.8 gm/dl (3.4-5.0) L 03/01/21 20:52 Globulin 4.8 gm/dl (2.5-4.0) H 03/01/21 20:52 Albumin/Globulin Ratio 0.6 (0.9-2) L 03/01/21 20:52 TSH 0.421 uIu/ml (0.300-4.500) 03/01/21 20:52 COVID-19 Eval Order Covid19 at [facility] 03/01/21 20:31 SARS-CoV-2 (PCR) NEGATIVE (Negative) 03/01/21 20:31 Impressions Ankle X-Ray 03/01/21 20:08 LEFT ANKLE 3 VIEWS CLINICAL HISTORY: Left ankle injury. FINDINGS: 3 views of the left ankle are obtained. No prior studies are available for comparison at the time of dictation. The skeletal structures are osteopenic. There is a minimally displaced spiral fracture of the distal fibula. Overlying soft tissue edema is noted. No additional fracture is identified. The ankle mortise is maintained. There are dorsal and plantar calcaneal enthesophytes. A joint effusion is noted. IMPRESSION: Minimally displaced spiral fracture of the distal fibula. Electronically signed by: Jerry Heart M.D. 03/01/2021 8:30 PM Chest X-Ray 03/01/21 20:08 SINGLE VIEW CHEST CLINICAL HISTORY: Generalized weakness. FINDINGS: 2 AP, portable, upright chest radiographs are compared to study dated 10/11/2020. The examination is degraded by portable technique and patient rotation. Rightward deviation of the trachea is unchanged and related to a thyroid goiter. The heart is enlarged noting atherosclerotic calcification of the thoracic aorta. There is pulmonary vascular congestion. Atelectasis is noted at the lung bases. No large pleural effusion or pneumothorax is seen. The skeletal structures are osteopenic. The bony thorax is grossly intact. IMPRESSION: Cardiomegaly with evidence of congestive failure. ACT 112: Negative or not required by law. Electronically signed by: Jerry Heart M.D. 03/01/2021 8:[address] head initial read: No intracranial hemorrhage, mass-effect or midline shift. Chronic microangiopathy. Dystrophic calcifications bilateral cerebellum. EKG as per my interpretation: Rate 95, NSR, LAD, LAFB, no ischemia
[2021-03-02] MEDS ORDERED: INSULIN GLARGINE SOLOSTAR 100 UNITS/ML 3 ML PEN SC STA (00:13)
[2021-03-02] MEDS: ALBUMIN 25% 12.5 GM/50 ML VIAL IV SCH ×4 (00:17→12:46)
[2021-03-02 00:57] LABS: Appearance Urine Cloudy (Clear); Bilirubin Urine Negative (Negative); Blood Urine 1+ (Negative); Color Urine Yellow; Epithelial Cell Urine Auto >30 /lpf (0-5); Glucose Urine UA Negative (Negative); Ketones Urine Trace (Negative); Leukocyte Esterase Urine 1+ (Negative); Nitrite Urine Negative (Negative); Protein Urine 2+ (Negative); Specific Gravity Urine 1.016 (1.000-1.030); Urobilinogen Urine Negative (Negative); WBC Urine Automated >30 /hpf (0-5)
[2021-03-02 01:13] LABS: Granular Casts Urine 20-30 /lpf (0)
[2021-03-02 01:14] LABS: Bacteria Urine Automated 2+ (Negative)
[2021-03-02 01:16] LABS: Calcium Oxalate Crystals Urine Present (None Prsent)
[2021-03-02] MEDS ORDERED: METOPROLOL TARTRATE 1 MG/ML VIAL IV STA ×2 (02:26→08:39)
[2021-03-02] MEDS ORDERED: LORazepam 0.5 MG TAB PO PRN (03:19)
[2021-03-02] MEDS ORDERED: GLUCOSE 10 TABS/TUBE PO PRN (03:19)
[2021-03-02] MEDS ORDERED: DEXTROSE 50% 50 ML SYRINGE IV PRN (03:19)
[2021-03-02] MEDS ORDERED: PROMETHAZINE HCL 12.5 MG in SODIUM CHLORIDE 0.9% 50 ML IV PRN (03:19)
[2021-03-02] MEDS ORDERED: GLUCAGON FOR INJ 1 MG VIAL SQ PRN (03:19)
[2021-03-02] MEDS ORDERED: GLUCOSE 40% GEL 15 GM TUBE PO PRN (03:19)
[2021-03-02] MEDS ORDERED: CARBOHYDRATES FOR HYPOGLYCEMIA PO PRN (03:19)
[2021-03-02] MEDS: INSULIN ASPART 100 UNITS/ML 3 ML PEN SC SCH ×5 (03:52→21:18)
[2021-03-02] MEDS ORDERED: ARTIFICIAL TEARS OP PRN (04:13)
[2021-03-02 04:44] LABS: Basophils # (auto) 0.02 K/uL (0-0.2); Basophils % (auto) 0.3 %; Eosinophils # (auto) 0.25 K/uL (0-0.5); Eosinophils % (auto) 3.2 %; Hematocrit (blood only) 35.4 % (37-47); Immature Granulocytes # (auto) 0.07 K/uL (0.00-0.02); Immature Granulocytes % (auto) 0.9 %; Lymphocytes # (auto) 1.64 K/uL (1.2-3.4); Lymphocytes % (auto) 20.8 %; Mean Corpuscular Hgb Conc 31.1 g/dL (32-36); Mean Corpuscular Volume 90.1 fL (80-100); Mean Platelet Volume 10.4 fL (7.4-10.4); Monocytes # (auto) 0.79 K/uL (0.11-0.59); Neutrophils # (auto) 5.11 K/uL (1.4-6.5); Neutrophils % (auto) 64.8 %; Platelet Count 160 K/uL (130-400); RDW Coefficient of Variation 16.6 % (11.5-14.5); RDW Standard Deviation 54.8 fL (36.4-46.3); Red Blood Count 3.93 M/uL (4.2-5.4); White Blood Count 7.88 K/uL (4.8-10.8)
[2021-03-02 05:09] LABS: BUN Creatinine Ratio 18.4 (10-20); Calcium 9.2 mg/dl (8.5-10.1); Creatinine Clr Calc Pharmacy 27.4 ml/min; Est GFR (African American) 30.3 ml/min; Est GFR (Non-African American) 26.1 ml/min; Potassium 4.7 mmol/L (3.5-5.1)
[2021-03-02] MEDS: carvediloL 6.25 MG TAB PO SCH ×2 (05:37→21:16)
[2021-03-02] MEDS: HEPARIN SOD 5,000 UNIT/0.5 ML VIAL SQ SCH ×3 (05:37→21:16)
--- NOTE | 2021-03-02 06:51 | CT Scan Report ---
CT head/brain wo con CLINICAL HISTORY: 80 years-old Female with fall eval for bleed. Acute head injury status post fall TECHNIQUE: Multiple axial CT images of the head were obtained without contrast. A dose lowering tech nique was utilized adhering to the principles of ALARA. CT DOSE: 537.48 mGy.cm COMPARISON: 09/21/2020 FINDINGS: No acute intracranial hemorrhage, midline shift, intracranial mass, hydrocephalus, territorial ischem ia or abnormal extra-axial collection. Calcifications of the basal ganglia and dentate nuclei of the cerebellar hemispheres redemonstrated. Age-related involutional changes. White matter hypodensities s uggestive of chronic microvascular ischemic disease. The calvarium is intact. Prior bilateral lens repair. The paranasal sinuses, mastoid air cells, and m iddle ear cavities are clear. IMPRESSION: No acute intracranial abnormality. ACT 112: Negative or not required by law. The above report was generated using voice recognition software. It may contain grammatical, syntax o r spelling errors. Electronically signed by: Gabe Berg M.D. 03/02/2021 6:50 AM
[2021-03-02] MEDS: VITAMIN B COMPLEX TAB PO SCH (08:31)
[2021-03-02] MEDS: PANTOprazole 40 MG TAB PO SCH (08:31)
[2021-03-02] MEDS: FERROUS SULFATE 325 MG TAB PO SCH (08:31)
[2021-03-02] MEDS: PREGABALIN 75 MG CAP PO SCH ×2 (08:31→21:15)
[2021-03-02] MEDS: ASPIRIN 325 MG ECTAB PO SCH (08:31)
[2021-03-02] MEDS ORDERED: LABETALOL HCL IV 5 MG/ML 20ML IV ONE (08:41)
[2021-03-02] MEDS: traMADol HCL 50 MG TABLET PO PRN ×3 (08:46→21:15)
[2021-03-02] MEDS ORDERED: carvediloL 6.25 MG TAB PO SCH (09:00)
--- NOTE | 2021-03-02 13:24 | Consultation Report ---
NEPHROLOGY CONSULTATION DATE OF CONSULTATION: 03/02/2021 REASON FOR CONSULT: Acute renal failure on background CKD III with congestive heart failure. HISTORY OF PRESENT ILLNESS: The patient is a 80-year-old female who presented to the hospital yester day because of multiple symptoms. The patient is a very poor historian and history was constructed b asically from the medical record available. She was having some shortness of breath as well as havin g some weakness and fall at home. She was found to have acute renal failure with a creatinine of 2.4 3 compared to her baseline, which is usually in the low 1s. Chest x-ray showed congestive heart fail ure and her blood pressure is somewhat high. She received IV albumin, but has not received any Lasix yet. Urine test is suggestive of UTI and/or ATN and she also has yeast in the urine. She does have a Hernandez catheter at this time and she is making urine. So far today, she has made 225 mL of urine. I cannot obtain any history from the patient. PAST MEDICAL AND SURGICAL HISTORY: Includes chronic diastolic heart failure, ejection fraction 50%-5 5%, hypertension, hyperlipidemia, history of CVA, type 2 diabetes, on oral medication, chronic kidney disease, baseline creatinine in the low 1s, chronic anemia, anxiety disorder, some underlying kam ia, history of hyperkalemia and hypernatremia with acute renal failure in 10/2020, cystoscopy, ureter oscopy, lithotripsy, back surgery, appendicectomy, hysterectomy, sinus surgery. FAMILY HISTORY: Negative for renal disease or dialysis. PERSONAL AND SOCIAL HISTORY: Past tobacco use, no alcohol use. She lives with her in her [facility]. ALLERGIES: OXYCODONE. MEDICATIONS: Home medication list was reviewed in detail and she does take metformin, lisinopril 20 daily and furosemide 20 daily as well as her other medication list, which was reviewed in [facility]. REVIEW OF SYSTEMS: I could not obtain any history from the patient as she did not focus on the exam at all. She was actually sleeping with her have finished lunch tray. PHYSICAL EXAMINATION: GENERAL: Elderly white female who appears to be confused and very somnolent. VITAL SIGNS: Blood pressure 169/84, pulse rate 92, temperature 36.8, 92% on room air. HEENT: Mucous membrane is moist. NECK: Supple. Cannot assess JVD secondary to short, obese neck. CHEST: Bilateral decreased breath sound, but the quality of the exam was very limited secondary to n o inspiratory effort from the patient. CARDIOVASCULAR: S1 and S2 regular. ABDOMEN: Soft, nontender, obese. EXTREMITIES: Show trace edema. LABORATORY TEST: Shows baseline creatinine in the low 1s. On admission, she had a creatinine of 2.4 3. This morning it is down to 1.81. Sodium 142, potassium 4.7, BUN 33. Creatine kinase 270. Hemogl obin 11.0, WBC count 7000, platelet count 160. Urine sediment is very active with trace ketones, 1+ blood, 2+ protein, lots of WBCs, RBCs hyaline casts and granular casts as well as budding yeast in th e urine. Chest x-ray shows congestive heart failure with cardiomegaly. ASSESSMENT AND PLAN: A 80-year-old female admitted with weakness and fall and was found to have acut e renal failure on background chronic kidney disease III with possible worsening of congestive heart failure. Acute renal failure: Looking at the urine sediment, it is quite possible that she has acute tubular necrosis nonoliguric type at this time. However, that could be a reflection of urinary tract infecti on also, but she is definitely not volume depleted and if anything, she needs some IV Lasix for some diuresis. Her albumin is not really very low to need albumin infusion and I will stop the albumin, a nd we will write for Lasix 40 mg IV twice daily. She has a history of renal failure with hypernatrem ia back in 10/2020, so we do have to be cautious with the use of IV Lasix. I do not believe she will need IV Lasix for many days. Continue blood work once daily. Also, hold metformin and lisinopril f or the time being, but we should be able to restart this medication once renal function is improved a nd stabilized. She has a Hernandez catheter, and I will continue that for at least a couple of days. No further workup is needed for etiology of the acute renal failure. Also, consider treating yeast inf ection of the urine. Job ID: [id number]
[2021-03-02] MEDS: FUROSEMIDE 40 MG in SYRINGE 0 ML IV SCH ×2 (13:50→19:04)
--- NOTE | 2021-03-02 17:49 | Hospitalist Progress Note ---
Date of Service March 02, 2021 Assessment & Plan (1) Falls frequently: (2) Ambulatory dysfunction: Plan: Present on admission for recurrent episode of falls Left ankle xray showed minimally displaced spiral fracture of the distal fibula. CT head showed no acute intracranial abnormality Continue pain control Ortho consulted-pending Continue PT/OT eval Fall precaution Will need placement to rehab (3) Acute kidney injury superimposed on chronic kidney disease: Plan: Creatinine on admission 2.4, creatinine improved to 1.8 today Nephrology on board Albumin was discontinued Continue to hold lisinopril and Metformin Started on Lasix 40 mg IV twice daily as per nephrology Continue monitor BMP closely Diabetes Most recent hemoglobin A1c 6.7 on 10/25 Continue Lantus and NovoLog sliding scale Continue to hold Metformin Continue monitor blood sugar Chronic diastolic heart failure Lasix 40 mg IV twice daily started by nephrology Continue monitor I&O's Monitor BMP while on IV Lasix Left ankle fracture Left ankle xray showed minimally displaced spiral fracture of the distal fibula. Orthopedic on board Continue splint that was applied in the ER DVT prophylaxis. Heparin subcu Full code a Mr Chance Vargas, He requests updates from providers through [id number]. Admission and Anticipated Discharge Date Admission Date: March 02, 2021 Subjective Patient was seen and examined for follow-up of left ankle pain Lying in bed with no distress Patient said she only had pain in the left ankle if she walks or move her left foot Denies any chest pain, palpitation, dizziness, shortness of breath. Physical Exam Physical Exam: General- No acute distress Head- atraumatic Eyes- PERRL, EOMI, ENT- oropharynx clear Neck- supple, no JVD Lungs- clear to auscultation Heart- regular rhythm; no murmur Abdomen- normal bowel sounds, soft, nontender Extremities- no calf tenderness, left ankle tenderness Neuro- alert, oriented x 3; PERRL, EOMI; no facial palsy; no dysarthria Skin- warm & dry Results & Data Results & Data ([facility]) Vital Signs (Past 12 Hours) Vital Signs Temp Pulse Pulse Resp BP Pulse Ox 03/02/21 16:12 36.9 C 91 H 18 150/74 H 92 03/02/21 15:00 92 H 03/02/21 11:35 36.8 C 92 H 22 169/84 H 92 03/02/21 09:12 90 175/80 H 03/02/21 07:51 37.0 C 100 H 20 160/90 H 91 03/02/21 07:00 110 H
[2021-03-02] MEDS: INSULIN GLARGINE SOLOSTAR 100 UNITS/ML 3 ML PEN SC SCH (21:19)
[2021-03-02] MEDS ORDERED: cloNIDine HCL 0.1 MG TAB PO PRN (22:45)
[2021-03-03] MEDS: HYDROmorphone INJ 0.5 MG/0.5 ML SYR IV PRN ×2 (02:59→19:39)
[2021-03-03] MEDS: HEPARIN SOD 5,000 UNIT/0.5 ML VIAL SQ SCH ×3 (05:45→21:30)
--- NOTE | 2021-03-03 07:10 | Electrocardiogram Report ---
Test Reason : Blood Pressure : / mmHG Vent. Rate : 093 BPM Atrial Rate : 093 BPM P-R Int : 152 ms QRS Dur : 074 ms QT Int : 334 ms P-R-T Axes : 080 -15 039 degrees QTc Int : 415 ms Poor data quality, interpretation may be adversely affected Normal sinus rhythm Low voltage QRS Inferior infarct , age undetermined Cannot rule out Anterior infarct (cited on or before 10-OCT-2020) Abnormal ECG When compared with ECG of 10-OCT-2020 01:44, No significant change was found Confirmed by David Rocha ([id number]) on 03/03/2021 7:09:51 AM Referred By: REFERRED SELF Confirmed By:David Rocha
[2021-03-03 07:55] LABS: Hematocrit (blood only) 38.2 % (37-47); Hemoglobin 12.3 g/dL (12.0-16.0); Mean Corpuscular Hgb Conc 32.2 g/dL (32-36); Mean Corpuscular Volume 86.8 fL (80-100); Mean Platelet Volume 10.1 fL (7.4-10.4); Platelet Count 195 K/uL (130-400); RDW Coefficient of Variation 16.2 % (11.5-14.5); RDW Standard Deviation 51.8 fL (36.4-46.3); White Blood Count 8.48 K/uL (4.8-10.8)
[2021-03-03 08:11] LABS: BUN Creatinine Ratio 23.2 (10-20); Calcium 10.5 mg/dl (8.5-10.1); Creatinine Clr Calc Pharmacy 35.4 ml/min; Est GFR (African American) 42.8 ml/min; Est GFR (Non-African American) 36.9 ml/min; Potassium 4.5 mmol/L (3.5-5.1)
[2021-03-03] MEDS: INSULIN ASPART 100 UNITS/ML 3 ML PEN SC SCH ×4 (08:40→21:30)
[2021-03-03] MEDS: ASPIRIN 325 MG ECTAB PO SCH (08:42)
[2021-03-03] MEDS: carvediloL 6.25 MG TAB PO SCH ×2 (08:42→19:40)
[2021-03-03] MEDS: VITAMIN B COMPLEX TAB PO SCH (08:42)
[2021-03-03] MEDS: PANTOprazole 40 MG TAB PO SCH (08:42)
[2021-03-03] MEDS: FERROUS SULFATE 325 MG TAB PO SCH (08:43)
[2021-03-03] MEDS: FUROSEMIDE 40 MG in SYRINGE 0 ML IV SCH ×2 (08:43→17:28)
[2021-03-03] MEDS: PREGABALIN 75 MG CAP PO SCH ×2 (09:09→21:30)
[2021-03-03] MEDS: traMADol HCL 50 MG TABLET PO PRN ×2 (09:10→17:42)
--- NOTE | 2021-03-03 10:43 | Nephrology Progress Note ---
Date of Service March 03, 2021 Assessment & Plan (1) Acute kidney injury superimposed on chronic kidney disease: Plan: Patient with acute kidney injury on CKD. Baseline creatinine around 1.2. Creatinine of 1.8 yesterday but downtrending to 1.4 today. Electrolytes are stable. No indication for dialysis. -Continue to monitor renal function with daily BMP -Monitor input output -Avoid nephrotoxins (2) Diastolic dysfunction: Plan: Continue Lasix and monitor input output and daily standing weight if able Admission and Anticipated Discharge Date Admission Date: March 02, 2021 Subjective Seen in follow-up for VALERIY on CKD. She feels better today. No shortness of breath. Legs are not swollen but painful. No vomiting or diarrhea. She is making urine and creatinine downtrending Review of Systems Review of Systems: All other systems were reviewed and negative except as not ed in HPI Physical Exam Physical Exam: General exam: Appears comfortable, no acute distress HEENT: Pupils are equal and reactive to light Neck: No JVD, neck is supple trachea is midline Respiratory system: Clear breath sounds bilaterally. Gastrointestinal: Abdomen is soft, non distended, non tender, bowel sounds are present CVS: Regular rate and rhythm. No murmurs, rubs or gallops Musculoskeletal: No joint or muscle tenderness Extremities: Non tender, no edema, peripheral pulses are present Neuro: Oriented, no tremors, no focal neurological deficits Skin: No rashes Results & Data ([facility]) Vital Signs (Past 12 Hours) Vital Signs Temp Pulse Pulse Pulse Resp BP Pulse Ox 03/03/21 07:42 36.7 C 99 H 20 169/98 H 90 03/03/21 07:22 98 H 03/03/21 03:32 101 H 131/83 03/03/21 02:44 36.9 C 106 H 20 168/103 H 93 Laboratory Results 03/03/21 07:21 03/03/21 07:21 WBC 8.48 RBC 4.40 MCV 86.8 MCH 28.0 MCHC 32.2 RDW Std Deviation 51.8 H RDW Coeff of Pia 16.2 H Plt Count 195 MPV 10.1
--- NOTE | 2021-03-03 15:18 | Consultation Report ---
DATE OF SERVICE: 03/03/2021. HISTORY OF PRESENT ILLNESS: This is a 80-year-old female who sustained multiple falls, admitted to t he hospitalist service. She had radiographs then demonstrated she had sustained a left fibula fractu re and orthopedics was consulted. The patient is a poor historian and all the records were retrieved from the chart. PAST MEDICAL HISTORY: Extensive, specifically anxiety, CKD stage III, diabetes mellitus type 2, dry eye syndrome, dyslipidemia, GERD, hypertension, kidney stones, osteoarthritis, peripheral neuropathy and Alzheimer's dementia. PAST SURGICAL HISTORY: Appendectomy, carpal tunnel release, left cataract surgery, bilateral diskect damián, hysterectomy, tooth extraction, colonoscopy with polypectomy, eye surgery and cystoscopy with ur eteral stent placement. ALLERGIES: OXYCODONE WITH OVER SEDATION. MEDICATIONS: Please see the extensive list of the medical record. SOCIAL HISTORY: She is a former cigarette smoker. Does not smoke now. Denies alcohol or drug use. She is and lives with her spouse. She is retired. PHYSICAL EXAMINATION: A focused exam of the left lower extremity demonstrates a walking boot, which is noted to be too short, it is short boot. Boot was removed. Skin is noted to be intact; however, a thin multiple varicosities, tenderness to palpation with local edema over the lateral malleolus. D iscomfort with active and passive range of motion of left ankle due to pain and guarding related to t he fracture. She has dorsalis pedis and posterior tibial pulses, which are palpable with cap refill, which is approximately 3 seconds. Radiographs demonstrate a minimally displaced spiral fracture of the lateral malleolus. Ankle mortis e appears to be intact with some mild to moderate osteoarthritic changes. IMPRESSION: 1. Left lateral malleolus minimally displaced fracture. 2. Osteopenia. 3. Status post fall. RECOMMENDATION: Change the low boot to a high boot for appropriate stabilization, recommend nonoperat federico treatment. Minimize weightbearing to the left lower extremity. Follow up with Dr. Langford in [facility] in approximately 2 weeks for reassessment and repeat radiographs. Thank you for the opportunity to consult in the care of this patient. Job ID: [id number]
--- NOTE | 2021-03-03 19:21 | Hospitalist Progress Note ---
Date of Service March 03, 2021 Assessment & Plan (1) Falls frequently: (2) Ambulatory dysfunction: Plan: Left ankle fracture Present on admission for recurrent episode of falls Left ankle xray showed minimally displaced spiral fracture of the distal fibula. CT head showed no acute intracranial abnormality Continue pain control Ortho on board recommended conservative management, no surgical intervention Will change the low boot to a high boot for appropriate stabilization as per ortho Minimize weightbearing to the left lower extremity. Continue PT/OT eval Fall precaution Follow up with Dr. Langford [facility] in approximately 2 weeks for reassessment and repeat radiographs. Will need placement to rehab (3) Acute kidney injury superimposed on chronic kidney disease: Plan: Creatinine on admission 2.4, creatinine improved to 1.8 -->1.4 today Nephrology on board Albumin was discontinued Continue to hold lisinopril and Metformin Continue Lasix 40 mg IV twice daily as per nephrology Continue monitor BMP closely Diabetes Most recent hemoglobin A1c 6.7 on 10/25 Continue Lantus and NovoLog sliding scale Continue to hold Metformin Continue monitor blood sugar Chronic diastolic heart failure Lasix 40 mg IV twice daily started by nephrology Continue monitor I&O's Monitor BMP while on IV Lasix DVT prophylaxis. Heparin subcu Full code a Mr Chance Vargas, He requests updates from providers through [phone]. Admission and Anticipated Discharge Date Admission Date: March 02, 2021 Subjective Patient was seen and examined for follow-up of left ankle pain Lying in bed with no acute distress Denies any chest pain, palpitation, dizziness, shortness of breath. Physical Exam Physical Exam: General- No acute distress Head- atraumatic Eyes- PERRL, EOMI, ENT- oropharynx clear Neck- supple, no JVD Lungs- clear to auscultation Heart- regular rhythm; no murmur Abdomen- normal bowel sounds, soft, nontender Extremities- no calf tenderness, left ankle tenderness Neuro- alert, oriented x 3; PERRL, EOMI; no facial palsy; no dysarthria Skin- warm & dry Results & Data Results & Data ([facility]) Vital Signs (Past 12 Hours) Vital Signs Temp Pulse Pulse Resp BP Pulse Ox 03/03/21 16:00 102 H 03/03/21 15:03 36.6 C 105 H 20 121/75 94 03/03/21 11:31 36.7 C 102 H 20 134/83 91 03/03/21 07:42 36.7 C 99 H 20 169/98 H 90 03/03/21 07:22 98 H
[2021-03-03] MEDS: INSULIN GLARGINE SOLOSTAR 100 UNITS/ML 3 ML PEN SC SCH (21:30)
[2021-03-04] MEDS: HEPARIN SOD 5,000 UNIT/0.5 ML VIAL SQ SCH ×3 (06:06→21:11)
[2021-03-04] MEDS ORDERED: NITROGLYCERIN SL 0.4 MG/TAB TAB SL STA (06:12)
[2021-03-04 07:49] LABS: Partial Thromboplastin Ratio 0.9; Partial Thromboplastin Time 24.8 Seconds (21.0-31.0)
[2021-03-04 07:50] LABS: Basophils # (auto) 0.04 K/uL (0-0.2); Basophils % (auto) 0.5 %; Eosinophils # (auto) 0.11 K/uL (0-0.5); Eosinophils % (auto) 1.2 %; Hematocrit (blood only) 39.2 % (37-47); Hemoglobin 12.7 g/dL (12.0-16.0); Immature Granulocytes # (auto) 0.14 K/uL (0.00-0.02); Immature Granulocytes % (auto) 1.6 %; Lymphocytes # (auto) 1.59 K/uL (1.2-3.4); Lymphocytes % (auto) 17.9 %; Mean Corpuscular Hemoglobin 28.2 pg (25-34); Mean Corpuscular Hgb Conc 32.4 g/dL (32-36); Mean Corpuscular Volume 87.1 fL (80-100); Mean Platelet Volume 10.4 fL (7.4-10.4); Monocytes # (auto) 0.96 K/uL (0.11-0.59); Monocytes % (auto) 10.8 %; Neutrophils # (auto) 6.02 K/uL (1.4-6.5); Nucleated RBC # (auto) 0.02 K/uL (0-0); Nucleated RBC % (auto) 0.2 %; Platelet Count 222 K/uL (130-400); RDW Coefficient of Variation 16.3 % (11.5-14.5); RDW Standard Deviation 52.2 fL (36.4-46.3); White Blood Count 8.86 K/uL (4.8-10.8)
[2021-03-04] MEDS: ASPIRIN 325 MG ECTAB PO SCH (08:08)
[2021-03-04] MEDS: FUROSEMIDE 40 MG in SYRINGE 0 ML IV SCH ×2 (08:08→16:51)
[2021-03-04] MEDS: carvediloL 6.25 MG TAB PO SCH ×2 (08:08→21:10)
[2021-03-04] MEDS: VITAMIN B COMPLEX TAB PO SCH (08:08)
[2021-03-04] MEDS: PANTOprazole 40 MG TAB PO SCH (08:09)
[2021-03-04] MEDS: FERROUS SULFATE 325 MG TAB PO SCH (08:09)
[2021-03-04] MEDS: PREGABALIN 75 MG CAP PO SCH ×2 (08:12→21:11)
[2021-03-04] MEDS: INSULIN ASPART 100 UNITS/ML 3 ML PEN SC SCH ×4 (08:12→21:14)
[2021-03-04] MEDS: traMADol HCL 50 MG TABLET PO PRN ×2 (08:12→21:09)
[2021-03-04 08:14] LABS: BUN Creatinine Ratio 29.9 (10-20); Blood Urea Nitrogen 43 mg/dl (7-18); Calcium 10.6 mg/dl (8.5-10.1); Carbon Dioxide 24 mmol/L (21-32); Chloride 103 mmol/L (98-107); Creatinine Clr Calc Pharmacy 33.3 ml/min; Est GFR (African American) 39.6 ml/min; Est GFR (Non-African American) 34.2 ml/min; Glucose 262 mg/dl (70-99); Magnesium 1.5 mg/dl (1.8-2.4); Potassium 4.4 mmol/L (3.5-5.1); Sodium 137 mmol/L (136-145)
[2021-03-04 08:18] LABS: Troponin I < 0.015 ng/ml (0-0.045)
--- NOTE | 2021-03-04 10:46 | Nephrology Progress Note ---
Date of Service March 04, 2021 Assessment & Plan (1) Acute kidney injury superimposed on chronic kidney disease: Plan: Patient with acute kidney injury on CKD. Baseline creatinine around 1.2. Creatinine stable at 1.4 today. Electrolytes are stable. No indication for dialysis. -Continue to monitor renal function with daily BMP -Monitor input output -Avoid nephrotoxins (2) Diastolic dysfunction: Plan: Continue Lasix and monitor input output and daily standing weight if able Admission and Anticipated Discharge Date Admission Date: March 02, 2021 Subjective Seen in follow-up for VALERIY. She feels fine denies any shortness of breath or leg swelling. She complains of pain in the left foot. She is wearing a boot. Review of Systems Review of Systems: All other systems were reviewed and negative except as noted in HPI Physical Exam Physical Exam: General exam: Appears comfortable, no acute distress HEENT: Pupils are equal and reactive to light Neck: No JVD, neck is supple trachea is midline Respiratory system: Clear breath sounds bilaterally. Gastrointestinal: Abdomen is soft, non distended, non tender, bowel sounds are present CVS: Regular rate and rhythm. No murmurs, rubs or gallops Musculoskeletal: No joint or muscle tenderness Extremities: Non tender, no edema, peripheral pulses are present Neuro: Oriented, no tremors, no focal neurological deficits Skin: No rashes Results & Data ([facility]) Vital Signs (Past 12 Hours) Vital Signs Temp Pulse Resp BP Pulse Ox 03/04/21 07:30 36.7 C 100 H 22 152/84 H 92 03/04/21 06:09 36.6 C 96 H 20 157/80 H 95 03/04/21 02:40 36.8 C 97 H 20 165/80 H 89 L
[2021-03-04] MEDS: MAGNESIUM SULFATE / D5W 1 GM/100 ML BAG IV SCH ×2 (11:20→13:25)
--- NOTE | 2021-03-04 15:15 | Hospitalist Progress Note ---
Date of Service March 04, 2021 Assessment & Plan (1) Falls frequently: (2) Ambulatory dysfunction: Plan: Left ankle fracture Present on admission for recurrent episode of falls Left ankle xray showed minimally displaced spiral fracture of the distal fibula. CT head showed no acute intracranial abnormality Continue pain control Ortho on board recommended conservative management, no surgical intervention Low boot changed to a high boot for appropriate stabilization as per ortho Minimize weightbearing to the left lower extremity. Continue PT/OT eval Fall precaution Follow up with Dr. Langford in [facility] in approximately 2 weeks for reassessment and repeat radiographs. Will need placement to rehab (3) Acute kidney injury superimposed on chronic kidney disease: Plan: Creatinine on admission 2.4, creatinine improved to 1.8 -->1.4 Creatinine worsening to 2.3 Nephrology on board Albumin was discontinued Continue to hold lisinopril and Metformin Lasix 40 hold today Continue monitor BMP closely Diabetes Most recent hemoglobin A1c 6.7 on 10/25 Continue Lantus and NovoLog sliding scale Continue to hold Metformin Continue monitor blood sugar Chronic diastolic heart failure Volume overload We will hold Lasix due to elevated creatinine Continue monitor I&O's Monitor BMP while on IV Lasix We will get an routine echo DVT prophylaxis. Heparin subcu Full code a Mr Chance Vargas, He requests updates from providers through [id number]. Admission and Anticipated Discharge Date Admission Date: March 02, 2021 Subjective Patient was seen and examined for follow-up of left ankle pain Lying in bed with no acute distress Patient said she is not having any pain on the left ankle while laying down Denies any chest pain, palpitation, dizziness, shortness of breath. Physical Exam Physical Exam: General- No acute distress Head- atraumatic Eyes- PERRL, EOMI, ENT- oropharynx clear Neck- supple, no JVD Lungs- clear to auscultation Heart- regular rhythm; no murmur Abdomen- normal bowel sounds, soft, nontender Extremities- no calf tenderness, left ankle tenderness Neuro- alert, oriented x 3; PERRL, EOMI; no facial palsy; no dysarthria Skin- warm & dry Results & Data Results & Data ([facility]) Vital Signs (Past 12 Hours) Vital Signs Temp Pulse Resp BP Pulse Ox 03/04/21 11:07 36.5 C 94 H 20 100/65 90 03/04/21 07:30 36.7 C 100 H 22 152/84 H 92 03/04/21 06:09 36.6 C 96 H 20 157/80 H 95
[2021-03-04] MEDS: INSULIN GLARGINE SOLOSTAR 100 UNITS/ML 3 ML PEN SC SCH (21:14)
[2021-03-05] MEDS: HYDROmorphone INJ 0.5 MG/0.5 ML SYR IV PRN (04:49)
--- NOTE | 2021-03-05 06:09 | Electrocardiogram Report ---
Test Reason : Blood Pressure : / mmHG Vent. Rate : 095 BPM Atrial Rate : 095 BPM P-R Int : 142 ms QRS Dur : 078 ms QT Int : 352 ms P-R-T Axes : 060 -08 052 degrees QTc Int : 442 ms Normal sinus rhythm Normal ECG When compared with ECG of 01-MAR-2021 20:37, Criteria for Inferior infarct are no longer Present Confirmed by Krzysztof Overton ([id number]) on 03/05/2021 6:08:54 AM Referred By: REFERRED SELF Confirmed By:Krzysztof Overton
[2021-03-05] MEDS: HEPARIN SOD 5,000 UNIT/0.5 ML VIAL SQ SCH ×3 (06:26→21:23)
[2021-03-05] MEDS: ASPIRIN 325 MG ECTAB PO SCH (08:33)
[2021-03-05] MEDS: FUROSEMIDE 40 MG in SYRINGE 0 ML IV SCH (08:34)
[2021-03-05] MEDS: carvediloL 6.25 MG TAB PO SCH ×2 (08:34→21:48)
[2021-03-05] MEDS: VITAMIN B COMPLEX TAB PO SCH (08:34)
[2021-03-05] MEDS: FERROUS SULFATE 325 MG TAB PO SCH (08:34)
[2021-03-05] MEDS: PANTOprazole 40 MG TAB PO SCH (08:34)
[2021-03-05] MEDS: PREGABALIN 75 MG CAP PO SCH ×2 (08:36→21:48)
[2021-03-05 08:50] LABS: BUN Creatinine Ratio 28.1 (10-20); Calcium 10.4 mg/dl (8.5-10.1); Creatinine Clr Calc Pharmacy 21.3 ml/min; Est GFR (African American) 22.9 ml/min; Est GFR (Non-African American) 19.8 ml/min; Magnesium 2.4 mg/dl (1.8-2.4); Potassium 4.3 mmol/L (3.5-5.1)
[2021-03-05] MEDS: INSULIN ASPART 100 UNITS/ML 3 ML PEN SC SCH ×4 (08:53→21:18)
--- NOTE | 2021-03-05 09:51 | Nephrology Progress Note ---
Date of Service March 05, 2021 Assessment & Plan (1) Acute kidney injury superimposed on chronic kidney disease: Plan: Patient admitted 03/01 with acute kidney injury on CKD3a: ATN and volume overload. Baseline creatinine around 1, but very labile in 2020, w/ most of October in VALERIY including admission here for same. Also admitted briefly September 2020 for falls, weakness, VALERIY: this is her 3rd admission in less than 6 mos w/ VALERIY and second w/ falls. Presented 03/01 w/ creat 2.4; down trended to mid ones on IV lasix, then rise abuptly 03/05 to 2.3. chemistries ok. Electrolytes are stable. No indication for dialysis. She was on 150 mg lyrica bid prior to admi ssion stable dose as well as 20 mg daily lasix and 20 mg lisinopril; she has ASA 325 mg q6h prn listed on her outpt meds along w/ note from 2013 stating that 81 mg daily asa was recommended and higher dose is pt preference. 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 >>>her last TTE was 2018 (per IP and OP records) > consider recheck -hold lasix -monitor input output and daily standing weight if able Admission and Anticipated Discharge Date Admission Date: March 02, 2021 Subjective creat worsened from mid ones to 2.3 overnight. had am lasix today; now held. pt has particular complaints. denies sob; challenge to chewing and ate perhaps half her meals Review of Systems Review of Systems: Other (limited by cognitive status; as per subjective) Physical Exam Constitutional: well developed and well nourished Eyes: EOM intact bilaterally ENMT: Ears: no external ear abnormality Nose: no external nose abnormality Mouth: + dry oral mucous membranes Neck: no nuchal rigidity Respiratory: normal respiratory effort Auscultation: + diminished lung sounds Cardiovascular: Rate/Rhythm: regular rate and regular rhythm Gastrointestinal (Abdomen): Inspection/Auscultation: normal bowel sounds Percussion/Palpation: abdomen soft; abdomen nontender Musculoskeletal: Extremities: + abnormal strength (generalized weakness) L ankle in boot Skin: no rashes, warm and dry Neurologic: soto, fluent speech, no tremor Genitourinary: dey w/ ample urine Results & Data ([facility]) Vital Signs (Past 12 Hours) Vital Signs Temp Pulse Pulse Resp BP Pulse Ox 03/05/21 08:00 85 03/05/21 07:54 36.3 C L 91 H 20 120/76 95 03/05/21 04:00 36.6 C 88 20 113/68 92 03/05/21 00:10 98 H 03/04/21 23:00 37 C 102 H 18 109/70 91 Laboratory Results 03/04/21 06:51 03/05/21 07:47
[2021-03-05] MEDS ORDERED: SODIUM CHLORIDE 0.9% 1000ML 250 ML IV ONE (10:20)
[2021-03-05] MEDS ORDERED: PHARMACY GLYCEMIC MGMT CONSULT PRN (11:27)
[2021-03-05] MEDS ORDERED: INSULIN GLARGINE SOLOSTAR 100 UNITS/ML 3 ML PEN SC ONE (12:30)
--- NOTE | 2021-03-05 13:30 | Pharmacy Report ---
Pharmacy Glycemic Short Note 2 - Date of Service March 05, 2021 - Glycemic Short BSG Results (Last 24 hours): 03/04/21 03/04/21 03/04/21 16:47 20:03 20:48 Glucose POC Glucose 193 H 318 H* 278 H 03/05/21 03/05/21 03/05/21 07:40 07:47 11:30 Glucose 248 H POC Glucose 265 H 280 H OUTPATIENT ANTIDIABETIC REGIMEN: * glipizide 5 mg daily * metformin 500 mg TIDM ASSESSMENT: * Ms Vargas is a 80 y/o F with a PMH of T2DM on 2 oral medications who presents with falls and an ankle fracture. * Patient's BSGs have been elevated. Also has VALERIY now. * Pharmacy consulted prior to lunch BSG. BSGs yesterday were [phone] mg/dL. Patient received 29 units of insulin yesterday (5 units of basal and 24 units of bolus). * Due to VALERIY, will be more aggressive with Novolog. Start with Lantus 20 units with scale this evening. maximum dose will be full weight-based stress of 2. * For Novolog, tighten to weight-based stress of 3. PLAN FOR INPATIENT GLYCEMIC CONTROL: * Hold outpatient oral diabetes medications * Basal insulin * Lantus 20 units SQ x 1 then 0-10 units tonight (see EMR) * Bolus insulin * NovoLog per scale ACHS or Q6hrs while NPO * Goal Range: Low 110 mg/dL - High 140 mg/dL * Correction Factor: 20 mg/dL/unit * Nutritional / Prandial insulin per carb ratio of 1 unit per 7 grams CHO consumed PLAN FOR DISCHARGE: * TBD
[2021-03-05] MEDS ORDERED: SALINE NASAL 225 SPRAYS, GENTAMICIN SULFATE 60 MG, BARCODE IDENTIFIER 0 EA PRN (15:29)
[2021-03-05] MEDS ORDERED: SODIUM CHLORIDE 0.65% NA SOLN 45 ML (OCEAN) PRN (16:21)
[2021-03-05] MEDS ORDERED: INSULIN GLARGINE SOLOSTAR 100 UNITS/ML 3 ML PEN SC SCH (21:00)
--- NOTE | 2021-03-05 22:46 | Hospitalist Progress Note ---
Date of Service March 05, 2021 Assessment & Plan (1) Falls frequently: (2) Ambulatory dysfunction: Plan: Left ankle fracture Present on admission for recurrent episode of falls Left ankle xray showed minimally displaced spiral fracture of the distal fibula. CT head showed no acute intracranial abnormality Continue pain control Ortho on board recommended conservative management, no surgical intervention Low boot changed to a high boot for appropriate stabilization as per ortho Minimize weightbearing to the left lower extremity. Continue PT/OT eval Fall precaution Follow up with Dr. Langford in [facility] in approximately 2 weeks for reassessment and repeat radiographs. Will need placement to rehab (3) Acute kidney injury superimposed on chronic kidney disease: Plan: Creatinine on admission 2.4, creatinine improved to 1.8 -->1.4 Creatinine worsening to 2.3 Nephrology on board Albumin was discontinued Continue to hold lisinopril and Metformin Will hold lasix due to elevated creatinine Continue monitor BMP closely Diabetes Most recent hemoglobin A1c 6.7 on 10/25 Continue Lantus and NovoLog sliding scale Continue to hold Metformin Continue monitor blood sugar Chronic diastolic heart failure Volume overload We will hold Lasix due to elevated creatinine Continue monitor I&O's Monitor BMP while on IV Lasix We will get an routine echo DVT prophylaxis. Heparin subcu Full code a Mr Chance Vargas, He requests updates from providers through [id number]. Admission and Anticipated Discharge Date Admission Date: March 02, 2021 Subjective Patient was seen and examined for follow-up of left ankle pain Lying in bed with no acute distress Patient said she is not having any pain on the left ankle while laying down Denies any chest pain, palpitation, dizziness, shortness of breath. Physical Exam Physical Exam: General- No acute distress Head- atraumatic Eyes- PERRL, EOMI, ENT- oropharynx clear Neck- supple, no JVD Lungs- clear to auscultation Heart- regular rhythm; no murmur Abdomen- normal bowel sounds, soft, nontender Extremities- no calf tenderness, left ankle tenderness Neuro- alert, oriented x 3; PERRL, EOMI; no facial palsy; no dysarthria Skin- warm & dry Results & Data Results & Data ([facility]) Vital Signs (Past 12 Hours) Vital Signs Temp Pulse Pulse Pulse Resp BP BP 03/05/21 21:24 97 H 128/76 03/05/21 19:50 36.8 C 99 H 18 131/68 03/05/21 15:34 36.5 C 63 16 110/72 03/05/21 14:56 89 03/05/21 11:36 36.6 C 93 H 20 98/64 L Pulse Ox 03/05/21 21:24 03/05/21 19:50 92 03/05/21 15:34 92 03/05/21 14:56 03/05/21 11:36 95
[2021-03-06] MEDS: HEPARIN SOD 5,000 UNIT/0.5 ML VIAL SQ SCH ×3 (05:40→23:01)
[2021-03-06] MEDS ORDERED: INSULIN GLARGINE SOLOSTAR 100 UNITS/ML 3 ML PEN SC ONE (08:30)
[2021-03-06] MEDS: carvediloL 6.25 MG TAB PO SCH ×2 (09:02→20:21)
[2021-03-06] MEDS: INSULIN ASPART 100 UNITS/ML 3 ML PEN SC SCH ×4 (09:03→20:23)
[2021-03-06 09:58] LABS: BUN Creatinine Ratio 32.1 (10-20); Creatinine Clr Calc Pharmacy 22.5 ml/min; Est GFR (African American) 24.2 ml/min; Est GFR (Non-African American) 20.9 ml/min; Potassium 4.6 mmol/L (3.5-5.1)
[2021-03-06] MEDS: VITAMIN B COMPLEX TAB PO SCH (10:02)
[2021-03-06] MEDS: FERROUS SULFATE 325 MG TAB PO SCH (10:02)
[2021-03-06] MEDS: PANTOprazole 40 MG TAB PO SCH (10:02)
[2021-03-06] MEDS: ASPIRIN 81 MG ECTAB PO SCH (10:02)
[2021-03-06] MEDS: PREGABALIN 75 MG CAP PO SCH ×2 (10:05→20:21)
[2021-03-06 10:18] LABS: Beta-Hydroxybutyrate 1.82 mg/dl (0.2-2.81)
--- NOTE | 2021-03-06 12:25 | Pharmacy Report ---
Pharmacy Glycemic Short Note 2 - Date of Service March 06, 2021 - Glycemic Short BSG Results (Last 24 hours): 03/05/21 03/05/21 03/06/21 16:40 20:20 07:48 Glucose POC Glucose 144 H 153 H 232 H 03/06/21 03/06/21 09:13 11:32 Glucose 369 H* POC Glucose 229 H OUTPATIENT ANTIDIABETIC REGIMEN: * glipizide 5 mg daily * metformin 500 mg TIDM ASSESSMENT: 03/06 * AM fasting BSG still significantly elevated despite significant increase in basal yesterday. Will increase from 25 units (yesterday) up to 40 units total today * Lunch BSG also elevated, but post-prandial BSG's yesterday in range on current regimen - will hold off adjusting Novolog for now * Unsure if possibly po intake is occuring prior to obtaining BSG's? Will order overnight check to correct hyperglycemia and also determine better trend in BSG's 03/05 * Ms Vargas is a 80 y/o F with a PMH of T2DM on 2 oral medications who presents with falls and an ankle fracture. * Patient's BSGs have been elevated. Also has VALERIY now. * Pharmacy consulted prior to lunch BSG. BSGs yesterday were [phone] mg/dL. Patient received 29 units of insulin yesterday (5 units of basal and 24 units of bolus). * Due to VALERIY, will be more aggressive with Novolog. Start with Lantus 20 units with scale this evening. maximum dose will be full weight-based stress of 2. * For Novolog, tighten to weight-based stress of 3. PLAN FOR INPATIENT GLYCEMIC CONTROL: * Hold outpatient oral diabetes medications * Basal insulin * Lantus 30 units SQ x 1 then 0-10 units tonight (see EMR) * Bolus insulin * NovoLog per scale ACHS or Q6hrs while NPO * Goal Range: Low 110 mg/dL - High 140 mg/dL * Correction Factor: 20 mg/dL/unit * Nutritional / Prandial insulin per carb ratio of 1 unit per 7 grams CHO consumed PLAN FOR DISCHARGE: * TBD
--- NOTE | 2021-03-06 15:51 | Nephrology Progress Note ---
Date of Service March 06, 2021 Assessment & Plan (1) Acute kidney injury superimposed on chronic kidney disease: Plan: Patient admitted 03/01 with acute kidney injury on CKD3a: ATN and volume overload. Baseline creatinine around 1, but very labile in 2020, w/ most of October in VAL[facility] including admission here for same. Also admitted briefly September 2020 for falls, weakness, VALERIY: this current admission is her 3rd admission in less than 6 mos w/ VALERIY and second w/ falls. Presented 03/01 w/ creat 2.4; down trended to mid ones on IV lasix, then rise abuptly 03/05 to 2.3. chemistries ok. Electrolytes are stable. No indication for dialysis. She was on 150 mg lyrica bid prior to admission stable dose as well as 20 mg daily lasix and 20 mg lisinopril; she has ASA 325 mg q6h prn listed on her outpt meds along w/ note from 2013 stating that 81 mg daily asa was recommended and higher dose is pt preference. 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 >>>her last TTE was 2018 (per IP and OP records) > recheck done today w/o change to function -as above lasix -monitor input output and daily standing weight if able Admission and Anticipated Discharge Date Admission Date: March 02, 2021 Subjective seen on rounds this am at 1030; no c/o today. denies sob, cough, orthopnea. denies uncontrolled pain Review of Systems Review of Systems: All systems reviewed & are unremarkable except as noted in Subjective and Other (ROS limited by cognitive status) Physical Exam Constitutional: well developed and well nourished Eyes: EOM intact bilaterally ENMT: Ears: no external ear abnormality Nose: no external nose abnormality Mouth: + dry oral mucous membranes Neck: no nuchal rigidity Respiratory: normal respiratory effort Auscultation: + diminished lung sounds and + crackles (bibasilar) Cardiovascular: Rate/Rhythm: regular rate and regular rhythm Gastrointestinal (Abdomen): Inspection/Auscultation: normal bowel sounds Percussion/Palpation: abdomen soft; abdomen nontender Musculoskeletal: Extremities: + abnormal strength (generalized weakness) Ankle: + deformity (L ankle in brace) Skin: no rashes, warm and dry Genitourinary: dey w/ scant dark urine Results & Data ([facility]) Vital Signs (Past 12 Hours) Vital Signs Temp Pulse Resp BP BP Pulse Ox 03/06/21 15:21 36.9 C 86 16 138/78 95 03/06/21 11:20 37.1 C 88 16 105/61 95 03/06/21 07:54 36.6 C 83 16 108/65 92 03/06/21 03:58 36.7 C 94 H 18 131/76 95 Laboratory Results 03/04/21 06:51 03/06/21 09:13
[2021-03-06] MEDS: FUROSEMIDE 10 MG in SYRINGE 0 ML IV SCH ×2 (17:58→23:01)
[2021-03-06] MEDS: traMADol HCL 50 MG TABLET PO PRN (20:21)
[2021-03-06] MEDS ORDERED: INSULIN GLARGINE SOLOSTAR 100 UNITS/ML 3 ML PEN SC SCH (21:00)
--- NOTE | 2021-03-06 23:54 | Hospitalist Progress Note ---
Date of Service March 06, 2021 Assessment & Plan (1) Falls frequently: (2) Ambulatory dysfunction: Plan: Left ankle fracture Present on admission for recurrent episode of falls Left ankle xray showed minimally displaced spiral fracture of the distal fibula. CT head showed no acute intracranial abnormality Continue pain control Ortho on board recommended conservative management, no surgical intervention Low boot changed to a high boot for appropriate stabilization as per ortho Minimize weightbearing to the left lower extremity. Due to high risk of fall and decline in renal function, Lyrica was decreased to 75 mg twice daily and change benzo to as needed Continue PT/OT eval Fall precaution Follow up with Dr. Langford [facility] in approximately 2 weeks for reassessment and repeat radiographs. Will need placement to rehab (3) Acute kidney injury superimposed on chronic kidney disease: Plan: Creatinine on admission 2.4, creatinine improved to 1.8 -->1.4 Creatinine 2.1 today Nephrology on board Albumin was discontinued Continue to hold lisinopril and Metformin Continue to hold lasix due to elevated creatinine Continue monitor BMP closely Diabetes Most recent hemoglobin A1c 6.7 on 10/25 We will check hemoglobin A1c Continue Lantus and NovoLog sliding scale Continue to hold Metformin Continue monitor blood sugar Acute on Chronic diastolic heart failure Volume overload Continue to hold Lasix due to elevated creatinine Continue monitor I&O's Nephrology on board for diuretic management Monitor BMP while on IV Lasix Echo showed mild concentric left ventricular hypertrophy. Ejection fraction 50 to 55% DVT prophylaxis. On Heparin subcu Full code Mr Chance Vargas, He requests updates from providers through [phone]. Admission and Anticipated Discharge Date Admission Date: March 02, 2021 Subjective Patient was seen and examined for follow-up of left ankle pain Lying in bed with no acute distress Patient said that she feels fine Denies any chest pain, palpitation, dizziness, shortness of breath. Physical Exam Physical Exam: General- No acute distress Head- atraumatic Eyes- PERRL, EOMI, ENT- oropharynx clear Neck- supple, no JVD Lungs- clear to auscultation Heart- regular rhythm; no murmur Abdomen- normal bowel sounds, soft, nontender Extremities- no calf tenderness, left ankle tenderness Neuro- alert, oriented x 3; PERRL, EOMI; no facial palsy; no dysarthria Skin- warm & dry Results & Data Results & Data ([facility]) Vital Signs (Past 12 Hours) Vital Signs Temp Pulse Pulse Resp BP Pulse Ox 03/06/21 23:00 36.5 C 87 20 129/75 94 03/06/21 22:20 91 H 03/06/21 20:00 36.5 C 91 H 20 133/80 96 03/06/21 16:00 87 03/06/21 15:21 36.9 C 86 16 138/78 95
[2021-03-07] MEDS ORDERED: INSULIN ASPART 100 UNITS/ML 3 ML PEN SC ONE (02:00)
[2021-03-07] MEDS: HEPARIN SOD 5,000 UNIT/0.5 ML VIAL SQ SCH ×3 (05:48→21:33)
[2021-03-07 07:46] LABS: Estimated Average Glucose 203 mg/dl; Hemoglobin A1C 8.7 % (4.5-5.6)
[2021-03-07 07:51] LABS: BUN Creatinine Ratio 36.4 (10-20); Calcium 10.7 mg/dl (8.5-10.1); Creatinine Clr Calc Pharmacy 27.1 ml/min; Est GFR (African American) 30.3 ml/min; Est GFR (Non-African American) 26.1 ml/min; Potassium 4.6 mmol/L (3.5-5.1)
[2021-03-07] MEDS: FERROUS SULFATE 325 MG TAB PO SCH (08:49)
[2021-03-07] MEDS: ASPIRIN 81 MG ECTAB PO SCH (08:49)
[2021-03-07] MEDS: FUROSEMIDE 10 MG in SYRINGE 0 ML IV SCH ×3 (08:49→21:34)
[2021-03-07] MEDS: PANTOprazole 40 MG TAB PO SCH (08:49)
[2021-03-07] MEDS: carvediloL 6.25 MG TAB PO SCH ×2 (08:49→21:34)
[2021-03-07] MEDS: VITAMIN B COMPLEX TAB PO SCH (08:49)
[2021-03-07] MEDS: INSULIN GLARGINE SOLOSTAR 100 UNITS/ML 3 ML PEN SC SCH (08:50)
[2021-03-07] MEDS: INSULIN ASPART 100 UNITS/ML 3 ML PEN SC SCH ×4 (08:50→21:34)
[2021-03-07] MEDS: PREGABALIN 50 MG CAP PO SCH ×2 (08:57→21:34)
--- NOTE | 2021-03-07 11:12 | Pharmacy Report ---
Pharmacy Glycemic Short Note 2 - Date of Service March 07, 2021 - Glycemic Short BSG Results (Last 24 hours): 03/06/21 03/06/21 03/06/21 11:32 16:48 20:15 Glucose POC Glucose 229 H 190 H 190 H 03/07/21 03/07/21 07:03 07:26 Glucose 189 H POC Glucose 188 H OUTPATIENT ANTIDIABETIC REGIMEN: * glipizide 5 mg daily * metformin 500 mg TIDM ASSESSMENT: 03/07: * Pt has received 60 units of insulin over the past 24hrs * 40 units of basal with Lantus * 20 units of bolus with NovoLog * BSGs 188-232 mg/dl * Fasting blood sugar 188mg/dl, increase basal and move all to AM dosing * Tighten CR for better postprandial coverage 03/06 * AM fasting BSG still significantly elevated despite significant increase in basal yesterday. Will increase from 25 units (yesterday) up to 40 units total today * Lunch BSG also elevated, but post-prandial BSG's yesterday in range on current regimen - will hold off adjusting Novolog for now * Unsure if possibly po intake is occuring prior to obtaining BSG's? Will order overnight check to correct hyperglycemia and also determine better trend in BSG's 03/05 * Ms Vargas is a 80 y/o F with a PMH of T2DM on 2 oral medications who presents with falls and an ankle fracture. * Patient's BSGs have been elevated. Also has VALERIY now. * Pharmacy consulted prior to lunch BSG. BSGs yesterday were [phone] mg/dL. Patient received 29 units of insulin yesterday (5 units of basal and 24 units of bolus). * Due to VALERIY, will be more aggressive with Novolog. Start with Lantus 20 units with scale this evening. maximum dose will be full weight-based stress of 2. * For Novolog, tighten to weight-based stress of 3. PLAN FOR INPATIENT GLYCEMIC CONTROL: * Hold outpatient oral diabetes medications * Basal insulin - INCREASE * Lantus 50 units SQ daily * Bolus insulin * NovoLog per scale ACHS or Q6hrs while NPO * Goal Range: Low 110 mg/dL - High 140 mg/dL * Correction Factor: 20 mg/dL/unit * TIGHTEN: Nutritional / Prandial insulin per carb ratio of 1 unit per 6 grams CHO consumed PLAN FOR DISCHARGE: * A1c 8.7%, metformin and glipizide alone are not effective for patient * If patient willing to use insulin as outpatient, recommend discontinuing glipizide and beginning basal insulin once daily as patient requiring at least 60 units of insulin/day as inpatient * Support Patient Self-Management oHealthy Lifestyle (diet, exercise, and smoking cessation) oDisease self-management (SMBG) oPrevention of complications (BP, Lipid goals, Immunizations) oConsider outpatient Diabetes Self-Management Education & Support
--- NOTE | 2021-03-07 11:59 | Hospitalist Progress Note ---
Date of Service March 07, 2021 Assessment & Plan (1) Falls frequently: (2) Ambulatory dysfunction: Plan: Left ankle fracture Present on admission for recurrent episode of falls Left ankle xray showed minimally displaced spiral fracture of the distal fibula. CT head showed no acute intracranial abnormality Pain is controlled Ortho recommended conservative management, no surgical intervention Low boot changed to a high boot for appropriate stabilization as per ortho Minimize weightbearing to the left lower extremity. Due to high risk of fall and decline in renal function, Lyrica was decreased further to 50 mg twice daily. Benzo was changed to as needed Continue PT/OT eval Fall precaution Follow up with Dr. Langford [facility] in approximately 2 weeks for reassessment and repeat radiographs. (3) Acute kidney injury superimposed on chronic kidney disease: Plan: Creatinine on admission 2.4, creatinine improved to 1.8 -->1.4 Creatinine 1.81 today Albumin was discontinued Continue to hold lisinopril and Metformin Discussed with nephrology today Continue Lasix IV 10 mg 3 times daily Continue monitor BMP closely Diabetes Most recent hemoglobin A1c 6.7 on 10/25 A1c is 8.7. Provided diabetic education Continue Lantus and NovoLog sliding scale Continue to hold Metformin Continue monitor blood sugar Acute on Chronic diastolic heart failure Continue iv lasix Continue monitor I&O's Nephrology on board for diuretic management Echo showed mild concentric left ventricular hypertrophy. Ejection fraction 50 to 55% DVT prophylaxis. On Heparin subcu Full code Mr Chance Vargas, He requests updates from providers through [id number]. Admission and Anticipated Discharge Date Admission Date: March 02, 2021 Subjective 80-year-old woman with history of chronic diastolic heart failure, hypertension, CVA, DM type II, CKD, chronic anemia, dementia, anxiety who presented after a fall and found to have a left fibular fracture. Patient seen and examined this morning. Patient denies any new complaints. Reports pain is controlled with fracture site. . Review of Systems Review of Systems: Other review of systems negative except as detailed in subjective above Physical Exam Constitutional: + well hydrated and + obese; no acute distress Eyes: PERRL, conjunctivae normal, anicteric sclerae ENMT: external ear and nose normal, oropharynx normal Respiratory: normal respiratory effort, lungs clear to auscultation Cardiovascular: Rate/Rhythm: regular rate and regular rhythm S1 S2 Gastrointestinal (Abdomen): normal bowel sounds, soft, nontender, no hepatosplenomegaly Musculoskeletal: Left leg in boot. Neurologic: PERRL, EOMI, accommodation nl, no face palsy, no dysarthria Psychiatric: Orientation: alert, oriented to person and oriented to place; + not oriented to time Genitourinary: Hernandez in situ Results & Data Results & Data ([facility]) Vital Signs (Past 12 Hours) Vital Signs Temp Pulse Pulse Resp BP BP Pulse Ox 03/07/21 11:30 36.8 C 91 H 16 100/54 L 95 03/07/21 07:47 36.3 C L 82 20 134/63 93 03/07/21 07:41 77 03/07/21 03:00 36.4 C L 58 L 20 106/59 L 91 Laboratory Results Abnormal lab results 03/06/21 03/06/21 03/07/21 Range/Units 16:48 20:15 07:03 BUN 66 H (7-18) mg/dl Creatinine 1.81 H D (0.6-1.2) mg/dl BUN/Creatinine Ratio 36.4 H (10-20) Glucose 189 H (70-99) mg/dl POC Glucose 190 H 190 H (70-99) mg/dl Hemoglobin A1c (4.5-5.6) % Calcium 10.7 H (8.5-10.1) mg/dl 03/07/21 03/07/21 03/07/21 Range/Units 07:03 07:26 11:46 BUN (7-18) mg/dl Creatinine (0.6-1.2) mg/dl BUN/Creatinine Ratio (10-20) Glucose (70-99) mg/dl POC Glucose 188 H 181 H (70-99) mg/dl Hemoglobin A1c 8.7 H (4.5-5.6) % Calcium (8.5-10.1) mg/dl
--- NOTE | 2021-03-07 18:25 | Nephrology Progress Note ---
Date of Service March 07, 2021 Assessment & Plan (1) Acute kidney injury superimposed on chronic kidney disease: Plan: Patient admitted 03/01 with acute kidney injury on CKD3a: ATN and volume overload. Baseline creatinine around 1, but very labile in 2020, w/ most of October in VALERIY including admission here for same. Also admitted briefly September 2020 for falls, weakness, VALERIY: this current admission is her 3rd admission in less than 6 mos w/ VALERIY and second w/ falls. Presented 03/01 w/ creat 2.4; down trended to mid ones on IV lasix, then rise abuptly 03/05 to 2.3. chemistries ok. Electrolytes are stable. No indication for dialysis. She was on 150 mg lyri ca bid prior to admission stable dose as well as 20 mg daily lasix and 20 mg lisinopril; she has ASA 325 mg q6h prn listed on her outpt meds along w/ note from 2013 stating that 81 mg daily asa was recommended and higher dose is pt preference. 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 >>>her last TTE was 2018 (per IP and OP records) > recheck done 03/06 w/o change to function -as above lasix >CXR ordered for am -monitor input output and daily standing weight if able Admission and Anticipated Discharge Date Admission Date: March 02, 2021 Subjective seen on rounds this am; no c/o including no sob, no uncontrolled pain Review of Systems Review of Systems: All systems reviewed & are unremarkable except as noted in Subjective Physical Exam Constitutional: well developed and well nourished Eyes: EOM intact bilaterally ENMT: Ears: no external ear abnormality Nose: no external nose abnormality Mouth: + dry oral mucous membranes Neck: no nuchal rigidity Respiratory: normal respiratory effort Auscultation: + diminished lung sounds and + crackles (bibasilar) Cardiovascular: Rate/Rhythm: regular rate and regular rhythm Gastrointestinal (Abdomen): Inspection/Auscultation: normal bowel sounds Percussion/Palpation: abdomen soft; abdomen nontender Musculoskeletal: Extremities: + abnormal strength (generalized weakness) Ankle: + deformity (L ankle in brace) Skin: no rashes, warm and dry Genitourinary: dey present w/ ample urine Results & Data ([facility]) Vital Signs (Past 12 Hours) Vital Signs Temp Pulse Pulse Resp BP Pulse Ox 03/07/21 16:20 36.6 C 83 16 118/71 97 03/07/21 15:09 83 03/07/21 15:00 83 03/07/21 11:30 36.8 C 91 H 16 100/54 L 95 03/07/21 07:47 36.3 C L 82 20 134/63 93 03/07/21 07:41 77 Laboratory Results 03/04/21 06:51 03/07/21 07:03
[2021-03-08] MEDS: traMADol HCL 50 MG TABLET PO PRN (05:41)
[2021-03-08] MEDS: HEPARIN SOD 5,000 UNIT/0.5 ML VIAL SQ SCH ×3 (05:42→21:08)
[2021-03-08 07:22] LABS: BUN Creatinine Ratio 36.9 (10-20); Calcium 10.7 mg/dl (8.5-10.1); Creatinine Clr Calc Pharmacy 28.8 ml/min; Est GFR (African American) 32.9 ml/min; Est GFR (Non-African American) 28.4 ml/min; Potassium 4.6 mmol/L (3.5-5.1)
[2021-03-08] MEDS: carvediloL 6.25 MG TAB PO SCH ×2 (07:55→21:07)
[2021-03-08] MEDS: PANTOprazole 40 MG TAB PO SCH (07:56)
[2021-03-08] MEDS: FERROUS SULFATE 325 MG TAB PO SCH (07:56)
[2021-03-08] MEDS: FUROSEMIDE 10 MG in SYRINGE 0 ML IV SCH (07:56)
[2021-03-08] MEDS: ASPIRIN 81 MG ECTAB PO SCH (07:56)
[2021-03-08] MEDS: VITAMIN B COMPLEX TAB PO SCH (07:56)
[2021-03-08] MEDS: PREGABALIN 50 MG CAP PO SCH ×2 (08:01→21:07)
--- NOTE | 2021-03-08 08:03 | XRay Report ---
XR chest 1V portable HISTORY: Shortness of breath. check heart failure status COMPARISON: Chest 03/01/2021. FINDINGS: The heart remains mildly enlarged. No pneumothorax. No pleural effusions. The pulmonary jeyson ma has almost completely resolved. No new focal lung consolidations to suggest pneumonia. Right trach eal deviation, unchanged. IMPRESSION: Cardiomegaly with near complete resolution of the pulmonary edema. ACT 112: Negative or not required by law. Electronically signed by: Ori Adhikari M.D. 03/08/2021 8:02 AM
[2021-03-08] MEDS: INSULIN GLARGINE SOLOSTAR 100 UNITS/ML 3 ML PEN SC SCH (08:37)
[2021-03-08] MEDS: INSULIN ASPART 100 UNITS/ML 3 ML PEN SC SCH ×4 (08:38→21:08)
--- NOTE | 2021-03-08 11:05 | Hospitalist Progress Note ---
Date of Service March 08, 2021 Assessment & Plan (1) Falls frequently: (2) Ambulatory dysfunction: Plan: Left ankle fracture Present on admission for recurrent episode of falls Left ankle xray showed minimally displaced spiral fracture of the distal fibula. CT head showed no acute intracranial abnormality Pain is controlled Ortho recommended conservative management, no surgical intervention Low boot changed to a high boot for appropriate stabilization as per ortho Minimize weightbearing to the left lower extremity. Due to high risk of fall and decline in renal function, Lyrica was decreased further to 50 mg twice daily. Benzo was changed to as needed. We will plan to decrease Lyrica further to 50 mg daily in a week. Continue PT/OT eval Fall precaution Follow up with Dr. Langford [facility] in approximately 2 weeks for reassessment and repeat radiographs. (3) Acute kidney injury superimposed on chronic kidney disease: Plan: Creatinine on admission 2.4, creatinine improved to 1.8 -->1.4 Creatinine 1.69 today Continue to hold lisinopril and Metformin Currently on Lasix IV 10 mg 3 times daily Continue monitor BMP closely Discussed with semiconductor engineer this morning. Change IV Lasix to p.o. Lasix 40 mg daily. Check labs in the morning. Plan to discharge tomorrow on increased dose of 40 mg of Lasix from home dose of 20 mg. Will continue to hold lisinopril on discharge until follow-up outpatient Diabetes Most recent hemoglobin A1c 6.7 on 10/25 A1c is 8.7. Provided diabetic education Continue Lantus and NovoLog sliding scale Continue to hold Metformin Continue monitor blood sugar Acute on Chronic diastolic heart failure Currently on iv lasix. Change to p.o. Lasix Continue monitor I&O's Nephrology on board for diuretic management Echo showed mild concentric left ventricular hypertrophy. Ejection fraction 50 to 55% DVT prophylaxis. On Heparin subcu Full code Mr Chance Vargas, He requests updates from providers through [id number]. Admission and Anticipated Discharge Date Admission Date: March 02, 2021 Subjective 80-year-old woman with history of chronic diastolic heart failure, hypertension, CVA, DM type II, CKD, chronic anemia, dementia, anxiety who presented after a fall and found to have a left fibular fracture. Patient seen and examined this morning. Patient denies any new complaints. Denies pain Review of Systems Review of Systems: Other review of systems negative except as detailed in subjective above Physical Exam Constitutional: + well hydrated and + obese; no acute distress Eyes: PERRL, conjunctivae normal, anicteric sclerae ENMT: external ear and nose normal, oropharynx normal Respiratory: normal respiratory effort, lungs clear to auscultation Cardiovascular: Rate/Rhythm: regular rate and regular rhythm S1 S2 Gastrointestinal (Abdomen): normal bowel sounds, soft, nontender, no hepatosplenomegaly Musculoskeletal: Left leg in boot Neurologic: PERRL, EOMI, accommodation nl, no face palsy, no dysarthria Psychiatric: Orientation: alert, oriented to person and oriented to place; + not oriented to time Results & Data Results & Data ([facility]) Vital Signs (Past 12 Hours) Vital Signs Temp Pulse Pulse Resp BP Pulse Ox 03/08/21 08:00 36.3 C L 82 18 146/90 H 95 03/08/21 03:00 36.5 C 85 20 137/78 96 03/07/21 23:52 89 Laboratory Results Abnormal lab results 03/07/21 03/07/21 03/07/21 Range/Units 11:46 16:35 20:09 BUN (7-18) mg/dl Creatinine (0.6-1.2) mg/dl BUN/Creatinine Ratio (10-20) Glucose (70-99) mg/dl POC Glucose 181 H 120 H 178 H (70-99) mg/dl Calcium (8.5-10.1) mg/dl 03/08/21 03/08/21 Range/Units 06:26 07:51 BUN 62 H (7-18) mg/dl Creatinine 1.69 H (0.6-1.2) mg/dl BUN/Creatinine Ratio 36.9 H (10-20) Glucose 199 H (70-99) mg/dl POC Glucose 198 H (70-99) mg/dl Calcium 10.7 H (8.5-10.1) mg/dl
[2021-03-08] MEDS ORDERED: FUROSEMIDE 40 MG TAB PO ONE (12:00)
--- NOTE | 2021-03-08 17:58 | Nephrology Progress Note ---
Date of Service March 08, 2021 Assessment & Plan (1) Acute kidney injury superimposed on chronic kidney disease: Plan: Patient admitted 03/01 with acute kidney injury on CKD3a: ATN and volume overload. Baseline creatinine around 1, but very labile in 2020, w/ most of October in VALERIY including admission here for same. Also admitted briefly September 2020 for falls, weakness, VALERIY: this current admission is her 3rd admission in less than 6 mos w/ VALERIY and second w/ falls. Presented 03/01 w/ creat 2.4; down trended to mid ones on IV lasix, then rise abuptly 03/05 to 2.3. chemistries ok. Electrolytes are stable. No indication for dialysis. She was on 150 mg lyri ca bid prior to admission stable dose as well as 20 mg daily lasix and 20 mg lisinopril; she has ASA 325 mg q6h prn listed on her outpt meds along w/ note from 2013 stating that 81 mg daily asa was recommended and higher dose is pt preference. 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 >>>her last TTE was 2018 (per IP and OP records) > recheck done 03/06 w/o change to function -as above lasix >CXR ordered for am today is clear/improved -monitor input output and daily standing weight if able Admission and Anticipated Discharge Date Admission Date: March 02, 2021 Subjective seen on rounds this afternoon > no sob, no musculoskeletal or nerve pain. dey out adn trying to void Review of Systems Review of Systems: All systems reviewed & are unremarkable except as noted in Subjective Physical Exam Constitutional: well developed and well nourished Eyes: EOM intact bilaterally ENMT: Ears: no external ear abnormality Nose: no external nose abnormality Mouth: + dry oral mucous membranes Neck: no nuchal rigidity Respiratory: normal respiratory effort Auscultation: + diminished lung sounds Cardiovascular: Rate/Rhythm: regular rate and regular rhythm Gastrointestinal (Abdomen): Inspection/Auscultation: normal bowel sounds Percussion/Palpation: abdomen soft; abdomen nontender Musculoskeletal: Extremities: + abnormal strength (generalized weakness) Ankle: + deformity (L ankle in brace) Skin: no rashes, warm and dry Results & Data ([facility]) Vital Signs (Past 12 Hours) Vital Signs Temp Pulse Resp BP BP Pulse Ox 03/08/21 15:15 36.8 C 88 18 150/96 H 95 03/08/21 11:54 36.3 C L 78 115/67 95 03/08/21 08:00 36.3 C L 82 18 146/90 H 95 Laboratory Results 03/04/21 06:51 03/08/21 06:26
[2021-03-09] MEDS: HEPARIN SOD 5,000 UNIT/0.5 ML VIAL SQ SCH ×2 (05:52→13:32)
[2021-03-09] MEDS: traMADol HCL 50 MG TABLET PO PRN (05:52)
[2021-03-09 08:23] LABS: BUN Creatinine Ratio 36.8 (10-20); Est GFR (African American) 32.2 ml/min; Est GFR (Non-African American) 27.8 ml/min; Potassium 4.8 mmol/L (3.5-5.1)
--- NOTE | 2021-03-09 08:41 | Pharmacy Report ---
Pharmacy Glycemic Short Note 2 - Date of Service March 09, 2021 - Glycemic Short BSG Results (Last 24 hours): 03/08/21 03/08/21 03/08/21 11:58 16:50 20:34 Glucose POC Glucose 140 H 118 H 203 H 03/09/21 03/09/21 07:19 07:56 Glucose 180 H POC Glucose 181 H OUTPATIENT ANTIDIABETIC REGIMEN: * glipizide 5 mg daily * metformin 500 mg TIDM ASSESSMENT: 03/09: * Pt has received 85 units of insulin over the past 24hrs * 50 units of basal with Lantus * 35 units of bolus with NovoLog * BSGs 118-203 mg/dl * Fasting blood sugar 181mg/dl this AM and 199mg/dl last AM, basal increased on 03/07, increase basal again * Tighten CF/CR for better postprandial/ correctional coverage 03/07: * Pt has received 60 units of insulin over the past 24hrs * 40 units of basal with Lantus * 20 units of bolus with NovoLog * BSGs 188-232 mg/dl * Fasting blood sugar 188mg/dl, increase basal and move all to AM dosing * Tighten CR for better postprandial coverage 03/06 * AM fasting BSG still significantly elevated despite significant increase in basal yesterday. Will increase from 25 units (yesterday) up to 40 units total today * Lunch BSG also elevated, but post-prandial BSG's yesterday in range on current regimen - will hold off adjusting Novolog for now * Unsure if possibly po intake is occuring prior to obtaining BSG's? Will order overnight check to correct hyperglycemia and also determine better trend in BSG's 03/05 * Ms Vargas is a 80 y/o F with a PMH of T2DM on 2 oral medications who presents with falls and an ankle fracture. * Patient's BSGs have been elevated. Also has VAELRIY now. * Pharmacy consulted prior to lunch BSG. BSGs yesterday were [phone] mg/dL. Patient received 29 units of insulin yesterday (5 units of basal and 24 units of bolus). * Due to VALERIY, will be more aggressive with Novolog. Start with Lantus 20 units with scale this evening. maximum dose will be full weight-based stress of 2. * For Novolog, tighten to weight-based stress of 3. PLAN FOR INPATIENT GLYCEMIC CONTROL: * Hold outpatient oral diabetes medications * Basal insulin - INCREASE * Lantus 60 units SQ daily * Bolus insulin * NovoLog per scale ACHS or Q6hrs while NPO * Goal Range: Low 110 mg/dL - High 140 mg/dL * TIGHTEN: Correction Factor: 12 mg/dL/unit * TIGHTEN: Nutritional / Prandial insulin per carb ratio of 1 unit per 4 grams CHO consumed PLAN FOR DISCHARGE: * A1c 8.7%, metformin and glipizide alone are not effective for patient * If patient willing to use insulin as outpatient, recommend discontinuing glipizide and beginning basal insulin once daily as patient requiring at least 60 units of insulin/day as inpatient * Support Patient Self-Management oHealthy Lifestyle (diet, exercise, and smoking cessation) oDisease self-management (SMBG) oPrevention of complications (BP, Lipid goals, Immunizations) oConsider outpatient Diabetes Self-Management Education & Support
[2021-03-09] MEDS ORDERED: INSULIN GLARGINE SOLOSTAR 100 UNITS/ML 3 ML PEN SC SCH (09:00)
[2021-03-09] MEDS ORDERED: FUROSEMIDE 40 MG TAB PO SCH (09:00)
[2021-03-09] MEDS: INSULIN ASPART 100 UNITS/ML 3 ML PEN SC SCH ×2 (09:20→13:26)
[2021-03-09] MEDS: ASPIRIN 81 MG ECTAB PO SCH (09:56)
[2021-03-09] MEDS: carvediloL 6.25 MG TAB PO SCH (09:57)
[2021-03-09] MEDS: FERROUS SULFATE 325 MG TAB PO SCH (09:58)
[2021-03-09] MEDS: PANTOprazole 40 MG TAB PO SCH (10:00)
[2021-03-09] MEDS: PREGABALIN 50 MG CAP PO SCH (10:00)
[2021-03-09] MEDS: VITAMIN B COMPLEX TAB PO SCH (10:01)
--- NOTE | 2021-03-09 10:07 | Nephrology Progress Note ---
Date of Service March 09, 2021 Assessment & Plan (1) Acute kidney injury superimposed on chronic kidney disease: Plan: Patient admitted 03/01 with acute kidney injury on CKD3a: ATN and volume overload. Baseline creatinine around 1, but very labile in 2020, w/ most of October in VALERIY including admission here for same. Also admitted briefly September 2020 for falls, weakness, VALERIY: this current admission is her 3rd admission in less than 6 mos w/ VALERIY and second w/ falls. Presented 03/01 w/ creat 2.4; down trended to mid ones on IV lasix, then rise abuptly 03/05 to 2.3. chemistries ok. Electrolytes are stable. No indication for dialysis. She was on 150 mg lyri ca bid prior to admission stable dose as well as 20 mg daily lasix and 20 mg lisinopril; she has ASA 325 mg q6h prn listed on her outpt meds along w/ note from 2013 stating that 81 mg daily asa was recommended and higher dose is pt preference. WILL SIGN OFF; Nephrology DISCHARGE recommendations -d/c on lasix 40 mg daily -look to resume ACEI after rehab discharge if appropriate -as above consider gradual down titration of lyrica -recommend at rehab at least weekly monitoring of renal function -no more than 81 mg daily ASA -needs CKD clinic follow up in [facility] or [place] if no availability in [facility] in 2-3 wks Care coordinated w/ Dr Mcknight (2) Diastolic dysfunction: Plan: saw [facility] cardiology 2019 and for PRN f/u. >>>her last TTE was 2018 (per IP and OP records) > recheck done 03/06 w/o change to function -as above lasix >CXR ordered for am today is clear/improved -monitor input output and daily standing weight if able Admission and Anticipated Discharge Date Admission Date: March 02, 2021 Subjective dey removed and now "voiding natural" w/o concerns. no sob, no cough. Review of Systems Review of Systems: All systems reviewed & are unremarkable except as noted in Subjective Physical Exam Constitutional: well developed and well nourished Eyes: EOM intact bilaterally ENMT: Ears: no external ear abnormality Nose: no external nose abnormality Mouth: + dry oral mucous membranes Neck: no nuchal rigidity Respiratory: normal respiratory effort Auscultation: + diminished lung sounds Cardiovascular: Rate/Rhythm: regular rate and regular rhythm Gastrointestinal (Abdomen): Inspection/Auscultation: normal bowel sounds Percussion/Palpation: abdomen soft; abdomen nontender Musculoskeletal: Extremities: + abnormal strength (generalized weakness) Ankle: + deformity (L ankle in brace) Skin: no rashes, warm and dry Neurologic: soto, fluent speech Psychiatric: some psychomotor slowing/slower processing cognitively but mostly appropriate Results & Data ([facility]) Vital Signs (Past 12 Hours) Vital Signs Temp Pulse Pulse Pulse Resp BP BP 03/09/21 09:30 36.5 C 83 18 110/50 L 03/09/21 07:40 36.6 C 80 18 138/71 03/09/21 04:00 36.5 C 82 18 128/83 03/08/21 23:00 36.4 C L 82 18 119/84 03/08/21 22:20 80 Pulse Ox 03/09/21 09:30 95 03/09/21 07:40 95 03/09/21 04:00 96 03/08/21 23:00 95 03/08/21 22:20 Laboratory Results 03/04/21 06:51 03/09/21 07:19
--- NOTE | 2021-03-09 10:49 | Discharge Summary ---
Date of Service March 09, 2021 Admission HPI Per Admitting Provider History obtained from patient, family, and records. Patient is a fair historian. Medical history significant for chronic diastolic heart failure (EF 50 to 55%, TTE 2018), hypertension, hyperlipidemia, history CVA, DM2 on oral medications, CRI (baseline creatinine 1.3 ), chronic anemia (baseline hemoglobin 11), anxiety disorder, dementia as per records, past tobacco abuse. Last confinement October 2020 for hyperkalemia and prerenal acute renal failure (creatinine 1.98). Renal function improved with conservative management. 4 days ago, patient falling a lot at home. Losing balance and legs giving out. No headache, no chest pain, no S OB, no syncope. Fair appetite as per . Denies fluid retention/flank pain/abdominal pain. Denies inordinate intake of NSAIDs. Patient brought by to the ER. 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, lives with Admission Exam Per Admitting Provider GENERAL: Comfortable, slightly hard of hearing, obese, no respiratory distress SKIN: Pallor,, warm HEENT: Pale palpebral conjunctivae, no ptosis, dry buccal mucosa NECK : Supple, short neck, no tenderness CHEST : CTA, no tenderness HEART : RRR, no obvious murmurs ABDOMEN: Marked abdominal distention, nontender EXTREMITIES : Minimal LE swelling, LLE tenderness, no other conspicuous deformities noted NEUROLOGIC : Coherent, slightly hard of hearing, mild dysarthria, no facial asymmetry, gait and stance not assessed Principal Diagnosis Fall Ambulatory dysfunction Left fibular fracture Acute on chronic kidney disease Acute on chronic diastolic heart failure Discharge Exam Constitutional + well hydrated and + obese; no acute distress Eyes PERRL, conjunctivae normal, anicteric sclerae ENMT external ear and nose normal, oropharynx normal Respiratory normal respiratory effort, lungs clear to auscultation Cardiovascular Rate/Rhythm: regular rate and regular rhythm S1 S2 Gastrointestinal (Abdomen) normal bowel sounds, soft, nontender, no hepatosplenomegaly Musculoskeletal Left leg in boot Neurologic PERRL, EOMI, accommodation nl, no face palsy, no dysarthria Psychiatric Orientation: alert, oriented to person and oriented to place; + not oriented to time Discharge Data Allergies Allergy/AdvReac Type Severity Reaction Status Date / Time oxycodone AdvReac Intermediate OVER Verified 03/01/21 20:32 SEDATED Consultations 03/01/21 22:19 ED Decision to Admit Stat 03/02/21 00:13 Consult Nephrology Routine Consult Orthopedic Surgery Routine Ordered Studies 03/01/21 20:08 CT head/brain wo con Stat No acute intracranial hemorrhage, midline shift, intracranial mass, hyd rocephalus, territorial ischemia or abnormal extra-axial collection. Calcifications of the basal ganglia and dentate nuclei of the cerebellar hemispheres redemonstrated. Age-related involutional changes. White matter hypodensities suggestive of chronic microvascular ischemic disease. The calvarium is intact. Prior bilateral lens repair. The paranasal sinuses, mastoid air cells, and middle ear cavities are clear. IMPRESSION: No acute intracranial abnormality. Hospital Course (1) Falls frequently: (2) Ambulatory dysfunction: Left ankle fracture Present on admission for recurrent episode of falls Left ankle xray showed minimally displaced spiral fracture of the distal fibula. CT head showed no acute intracranial abnormality Pain is controlled Ortho recommended conservative management, no surgical intervention Low boot changed to a high boot for appropriate stabilization as per ortho Minimize weightbearing to the left lower extremity. Due to high risk of fall and decline in renal function, Lyrica was decreased to 50 mg twice daily. Recommend to decrease Lyrica further to 50 mg daily in a week. Per MAR, patient did not require her home ativan during her 7 day stay. Hence ativan was discontinued as this may be contributing to her falls Fall precaution Follow up with Dr. Langford in Orthopedic Clinic in approximately 2 weeks for reassessment and repeat radiographs. (3) Acute kidney injury superimposed on chronic kidney disease: Creatinine on admission 2.4 Creatinine 1.72 today Was comanaged with the clammer Needed IV lasix for Heart failure management Changes were to some medication due to renal function Lisinopril was discontinued until follow up with Nephrology Glipizide was discontinued Lyrica was reduced as mentioned above Metformin reduced to 500mg bidm Lasix was increased to 40mg daily Patient needs follow up with Nephrology Diabetes Most recent hemoglobin A1c 6.7 on 10/25 A1c is 8.7. Provided diabetic education Metformin changed as above Glipizide discontinued for now as above Acute on Chronic diastolic heart failure Echo showed mild concentric left ventricular hypertrophy. Ejection fraction 50 to 55% Was managed with iv lasix while inpatient Changed to po lasix at increased dose of 40mg daily on discharge I called and updated him on the plans Patient discharged to [facility] for rehab Total Time Total Time Spent Total Time Spent (In Minutes): 55 Total Time Includes: Examination of the Patient, Discharge Planning, Medication Reconciliation, Communication With Other Providers and Other Discharge Plan Discharge Items Patient Disposition: Transfer Inpatient Rehab Fac Reason For Visit: Fall Discharge Diagnosis: Fall Ambulatory dysfunction Left fibular fracture Acute on chronic kidney disease Acute on chronic diastolic heart failure Activity: As commented below Activity Comment: Per physical therapist instructions Weightbearing Comment: High boot for stabilization. Minimize left leg weight bearing Non-emergency contact: Primary Care Provider, Surgeon and Hand Cultivator Call non-emergency contact if: you have any medication questions and your symptoms worsen Follow-up/Referrals: Otoniel Langford DO [Surgeon] - (Call for follow up) [facility] MD [Primary Care Provider] - Catrachita Brewer MD [Physician] - (Date & Time 03/26/2021 3:20 PM Provider Catrachita Brewer MD Department Nephrology 2nd Floor, [place] ) Diet: Heart Healthy Addtl Attending Provider Instructions: Mrs Vargas. You were brought to the hospital after a fall. You were evaluated and found to have left leg fracture. You were also managed for other above listed diagnoses. You were evaluated by Orthopedic surgeon who recommend nonoperative management with weight bearing instructions as above. Please ensure follow up with Dr Langford in Orthopedic clinic in 2 weeks for reassessment. Some medication adjustments were made. -Your lisinopril was stopped for now until follow up with Hand Cultivator (Kidney Doctor) -Your Aspirin dose was reduced to 81mg daily -Your lyrica was reduced to 50mg twice daily. It is very important that this is not increased. Consider reducing further to 50mg once daily in a week. -Your furosemide was increased to 40mg daily -Your ativan was discontinued as you have not required it for the past week since you have been in the hospital. This along with other medications are likely contributing to your recurrent falls. Advise to stay off ativan or benzodiazepines as much as possible. -Please use tylenol as needed for pain and only use tramadol for moderate or severe pain not controlled by tylenol -Your glipizide was discontinued for now. Metformin changed to twice daily dosing due to kidney function Please ensure follow up with your Primary Doctor and Hand Cultivator. It was a pleasure taking care of you. Pending Studies at Discharge: No Stand-Alone Forms: [facility] Skilled Items Patient informed of condition?: Yes DNR: No Discharge Level of Care: Acute rehab Communicable Disease: No Discharge Prognosis: Stable Lines: None Urinary Catheter: No Medications and DC Order Prescriptions: New aspirin 81 mg Tablet,Delayed Release (Dr/Ec) 81 mg PO QAM Qty: 30 RF: 0 pregabalin [Lyrica] 50 mg Capsule 50 mg PO AMHS Qty: 30 RF: 0 furosemide 40 mg Tablet 40 mg PO QAM Qty: 30 RF: 0 tramadol 50 mg tablet 50 mg PO Q8H PRN (Reason: pain) Qty: 20 RF: 0 Continued omega-3 fatty acids 1,000 mg Capsule 2,000 mg PO QAM Qty: 0 RF: 0 omeprazole 20 mg Tablet,Delayed Release (Dr/Ec) 20 mg PO QAM Qty: 0 RF: 0 coenzyme Q10 100 mg Capsule 100 mg PO QAM Qty: 0 RF: 0 atorvastatin 40 mg Tablet 40 mg PO QAM Qty: 0 RF: 0 dicyclomine 10 mg Capsule 10 mg PO TIDM Qty: 0 RF: 0 cholecalciferol (vitamin D3) 50,000 unit capsule 50,000 unit PO MONTHLY RF: 0 Systane Ultra 0.4-0.3 % Drops 1 drp OPHTHALMIC (EYE) QID PRN (Reason: Dry Eye(S)) RF: 0 carvedilol 12.5 mg tablet 6.25 mg PO BID RF: 0 nystatin 100,000 unit/gram Powder 1 applic TOPICAL QID PRN (Reason: skin rash) RF: 0 magnesium chloride 64 mg magnesium Tablet 128 mg PO QAM RF: 0 vitamin B complex Tablet 1 tab PO DAILY RF: 0 acetaminophen 325 mg Tablet 650 mg PO Q4H PRN (Reason: pain) Qty: 30 RF: 0 ferrous sulfate 325 mg (65 mg iron) tablet,delayed release (DR/EC) 325 mg PO DAILY RF: 0 Changed metformin 1,000 mg Tablet 500 mg PO BIDM Qty: 0 RF: 0 Discontinued pregabalin 150 mg capsule 150 mg PO AMHS RF: 0 aspirin [Ecotrin] 325 mg Tablet,Delayed Release (Dr/Ec) 325 mg PO QAM Qty: 30 RF: 0 lorazepam 0.5 mg tablet 0.5 mg PO BID RF: 0 glipizide 5 mg tablet extended release 24hr 5 mg PO QAM RF: 0 furosemide 20 mg tablet 20 mg PO QAM RF: 0 lisinopril 20 mg tablet 20 mg PO DAILY RF: 0 Discharge Orders: Discharge Order (Routine); Ordered 03/09/21 Ordered By: Cece Gonsales/Other Patient Handouts: A1C, Managing Type 2 Diabetes, Special Foot [facility] for Diabetes Admission Data Admit Date/Time: 03/02/21 00:06 Attending Provider: Cece Mcknight I. Admit Provider: German Elena Primary Care Provider: [facility] Other Providers: German Elena ; Magali Dominguez ; Jaime Temple ; Kaitlin Mata ; Renate Guillen Japheth E. ; Maria E Keller ; Otoniel Langford ; [facility] ; [facility] ; Molly Keller Other Interventions: Discharge Summary Assessment (RN) Last Done: 03/09/21 11:05
== END 2021-03-09 14:26 | DRG 682 ==
LOC: ED 19:45 → 2W 03-02 00:06 → SUATTDRO 03-02 00:06 → 2W 03-02 02:49
DX: N17.9 Acute kidney failure, unspecified; S82.832A Other fracture of upper and lower end of left fibula, initial encounter for closed fracture; Z88.5 Allergy status to narcotic agent; Z79.82 Long term (current) use of aspirin; Z79.84 Long term (current) use of oral hypoglycemic drugs; I13.0 Hypertensive heart and chronic kidney disease with heart failure and stage 1 through stage 4 chronic kidney disease, or unspecified chronic kidney disease; I50.33 Acute on chronic diastolic (congestive) heart failure; E78.5 Hyperlipidemia, unspecified; N18.31 Chronic kidney disease, stage 3a; Z87.891 Personal history of nicotine dependence; Z79.899 Other long term (current) drug therapy; E11.22 Type 2 diabetes mellitus with diabetic chronic kidney disease; Z86.73 Personal history of transient ischemic attack (TIA), and cerebral infarction without residual deficits; R26.9 Unspecified abnormalities of gait and mobility; W19.XXXA Unspecified fall, initial encounter; R29.6 Repeated falls; E11.42 Type 2 diabetes mellitus with diabetic polyneuropathy

== ENCOUNTER 2021-05-24 14:27 | Observation (INO) ==
[2021-05-24] MEDS ORDERED: SODIUM CHLORIDE 0.9% 1000ML 1,000 ML IV SCH (15:00)
[2021-05-24 15:46] LABS: Basophils # (auto) 0.01 K/uL (0-0.2); Basophils % (auto) 0.2 %; Eosinophils # (auto) 0.12 K/uL (0-0.5); Eosinophils % (auto) 2.3 %; Hematocrit (blood only) 41.5 % (37-47); Hemoglobin 12.8 g/dL (12.0-16.0); Immature Granulocytes # (auto) 0.04 K/uL (0.00-0.02); Immature Granulocytes % (auto) 0.8 %; Lymphocytes # (auto) 0.77 K/uL (1.2-3.4); Lymphocytes % (auto) 14.5 %; Mean Corpuscular Hemoglobin 29.1 pg (25-34); Mean Corpuscular Hgb Conc 30.8 g/dL (32-36); Mean Corpuscular Volume 94.3 fL (80-100); Mean Platelet Volume 10.3 fL (7.4-10.4); Monocytes # (auto) 0.52 K/uL (0.11-0.59); Monocytes % (auto) 9.8 %; Neutrophils # (auto) 3.85 K/uL (1.4-6.5); Neutrophils % (auto) 72.4 %; Platelet Count 156 K/uL (130-400); RDW Coefficient of Variation 15.7 % (11.5-14.5); RDW Standard Deviation 54.6 fL (36.4-46.3); White Blood Count 5.31 K/uL (4.8-10.8)
[2021-05-24 16:03] LABS: Alanine Aminotransferase 32 U/L (12-78); Albumin Level 3.5 gm/dl (3.4-5.0); Aspartate Aminotransferase 21 U/L (15-37); Blood Urea Nitrogen 16 mg/dl (7-18); Carbon Dioxide 29 mmol/L (21-32); Chloride 103 mmol/L (98-107); Creatinine Clr Calc Pharmacy 38.9 ml/min; Est GFR (African American) 47.4 ml/min; Est GFR (Non-African American) 40.9 ml/min; Glucose 158 mg/dl (70-99); Sodium 140 mmol/L (136-145)
[2021-05-24 16:07] LABS: Albumin Globulin Ratio 0.7 (0.9-2); Alkaline Phosphatase 77 U/L (45-117); Bilirubin,Total 0.5 mg/dl (0.2-1); Globulin 4.8 gm/dl (2.5-4.0); Total Protein 8.3 gm/dl (6.4-8.2); Troponin I < 0.015 ng/ml (0-0.045)
--- NOTE | 2021-05-24 16:32 | XRay Report ---
XR chest 1V portable CLINICAL HISTORY: Weak, dizzy TECHNIQUE: Single frontal radiograph of the chest was obtained. Comparison: Comparison is made to chest one view 03/08/2021 FINDINGS: No lines and tubes are seen. Calcified aortic knob is seen. The lungs are clear. No evidence of pleur al effusion or pneumothorax. IMPRESSION: No acute chest disease. ACT 112: Negative or not required by law. Electronically signed by: Mati Daniel M.D. 05/24/2021 4:30 PM
[2021-05-24 16:58] LABS: Appearance Urine Cloudy (Clear); Bacteria Urine Automated Negative (Negative); Bilirubin Urine Negative (Negative); Blood Urine Trace (Negative); Color Urine Yellow; Epithelial Cell Urine Auto >30 /lpf (0-5); Glucose Urine UA Negative (Negative); Ketones Urine Negative (Negative); Leukocyte Esterase Urine Trace (Negative); Nitrite Urine Negative (Negative); Protein Urine Trace (Negative); RBC Urine Automated 0-4 /hpf (0-4); Specific Gravity Urine 1.013 (1.000-1.030); Urobilinogen Urine Negative (Negative); pH Urine 5.5 (4.5-7.5)
--- NOTE | 2021-05-24 17:02 | CT Scan Report ---
CT SCAN OF THE BRAIN WITHOUT IV CONTRAST CLINICAL HISTORY: Dizziness. Fall. COMPARISON STUDY: CT of the brain dated 03/01/2021. TECHNIQUE: Unenhanced axial CT scan of the brain is performed from the vertex to the skull base. A do se lowering technique was utilized adhering to the principles of ALARA. FINDINGS: Brain parenchyma: There are age-related involutional changes noting mild to moderate subcortical and periventricular microangiopathic change. There is no hemorrhage, mass effect, or evidence of acute t erritorial ischemia by CT criteria. Aldrich-white matter differentiation is preserved. No extra-axial fl uid collection is seen. Mineralization is noted in the basal ganglia and the cerebellum. Ventricles, sulci, cisterns: Prominent secondary to involutional change. Intracranial vasculature: There is atherosclerotic calcification of the cavernous carotid and vertebr al arteries. Calvarium: The skeletal structures are osteopenic. No depressed calvarial fracture is identified. Sinuses and mastoids: The visualized paranasal sinuses are clear. The mastoid air cells are well pneu matized. Orbits: The bony orbits are grossly intact. There are bilateral ocular lens implants. IMPRESSION: There is no hemorrhage, mass effect, or evidence of acute territorial ischemia by CT lit valdez. ACT 112: Negative or not required by law. Electronically signed by: Jerry Heart M.D. 05/24/2021 5:01 PM
--- NOTE | 2021-05-24 17:06 | CT Scan Report ---
CT SCAN OF THE CERVICAL SPINE CLINICAL HISTORY: Fall. COMPARISON STUDY: CT of the neck dated 04/07/2021. TECHNIQUE: CT scan of the cervical spine is performed from the skull base to the upper thoracic spine . Images are reviewed in the axial, sagittal, and coronal planes. IV contrast was not administered fo r this examination. A dose lowering technique was utilized adhering to the principles of ALARA. CT DOSE: 1069.41 mGy.cm FINDINGS: Skeletal structures: The skeletal structures are osteopenic. There is no evidence of fracture or subl uxation involving the cervical spine. Vertebral body height and alignment are maintained. There is st raightening of the cervical lordosis. Anterior osteophytes are seen throughout. The odontoid process and lateral masses are intact. The atlantoaxial articulation is preserved noting productive degenerat federico change. The spinous processes appear intact. There is moderate moderate to advanced cervical spon dylosis. Uncovertebral and facet arthropathy contribute to neural foraminal narrowing at several leve ls. Intervertebral discs: Moderate disc space narrowing is seen at all cervical levels. Central canal: Posterior disc osteophyte complexes are seen at all levels between C3-C4 and C6-C7. Th is likely contributes to multilevel acquired compromise of the central canal. Soft tissues: The prevertebral and paraspinous soft tissues are within normal limits. Thyroid goiter is unchanged from prior studies. This causes rightward deviation of the trachea. There is atheroscler otic calcification of the carotid bulbs. Calvarium: The visualized calvarium at the skull base appears intact. Brain parenchyma: Partially visualized brain parenchyma at the skull base is within normal limits. Sinuses and mastoids: The visualized paranasal sinuses are clear. The mastoid air cells are well pneu matized. Lung apices: Clear as visualized. IMPRESSION: 1. There is no evidence of fracture or subluxation involving the cervical spine. 2. Osteopenia and spondylotic change as above. ACT 112: Negative or not required by law. Electronically signed by: Jerry Heart M.D. 05/24/2021 5:05 PM
--- NOTE | 2021-05-24 17:39 | Emergency Department Note ---
Impression & Plan Hypertension, Falls frequently, Ambulatory dysfunction ED Provider Note CHIEF COMPLAINT: Generalized weakness, fall, unable to get up HISTORY OF PRESENT ILLNESS: This 80-year-old female patient presents to the emergency department presents to the emergency department with complaints of a fall today. Patient's states he had great difficulty getting her to the toilet, and then she was unable to get up. He went to call 911 however the patient fell off of the toilet and those few minutes. He was unable to get her up off of the floor and EMS was required. Patient denies any significant injuries after the fall. Patient was discharged from [facility] 2 days ago and was showing great improvement upon return home. She did receive her Covid booster yesterday and states she has taken a significant turn for the worse over the last 24 hours. She has not had a fever, chest pain or shortness of breath. The patient has had no vomiting or diarrhea. Has been states she murphy s had a good appetite. She does periodically get this diffuse muscular weakness and states her speech is slurred when this occurs. reiterates that she has chronic dizziness. REVIEW OF SYSTEMS: A review of systems was performed with positives and pertinent negatives listed in the history of present illness. 10 systems were reviewed and are otherwise negative. ALLERGIES: see below MEDICATIONS: see below PMH: see below SOCIAL HISTORY: see below DDx: Infection, dehydration, metabolic abnormality, hypo/hyperglycemia, electrolyte disturbance, anemia, hypoxia, cardiac sources, intracerebral event, toxicologic, neurologic, as well as other pathologies. PHYSICAL EXAM: Vital signs reviewed. General: Chronically ill appearing 80 yo female, in no significant distress. HEENT: No scleral icterus, PERRLA, neck supple. Mild contusion above the left eye. Near constant ? nystagmus. Cardiovascular: Regular rate and rhythm, no extra sounds. Pulmonary: Clear to auscultation bilaterally, normal work of breathing. Abdomen: Soft, nontender, nondistended, positive bowel sounds. Musculoskeletal: Atraumatic, no peripheral edema. Nontender to palpation over the cervical, thoracic spine. Neurologic: Patient awake alert and oriented x 3, slight dysarthria, Skin: Warm, dry, no rash EMERGENCY DEPARTMENT COURSE/MDM: This patient was evaluated and appeared to be in no significant distress. The patient is diffusely weak. CT imaging of the head and cervical spine was performed and is negative for acute traumatic finding. Laboratory work is fairly reassuring, UA is negative. Covid swab is pending at this time. An ambulatory trial was performed by nursing staff and the patient was on able to ambulate despite a walker and nursing assist. The etiology of the patient's diffuse weakness is unclear at this time. Has been in this that she had her is this morning. I suspect this is potentially polypharmacy on top of her recent Covid vaccination. Case management is currently speaking with [facility] to help arrange inpatient rehabilitation services. Patient will require a stay at our facility as they are unable to take the patient back this evening, but may be able to take her tomorrow. Patient and are aware of the plan and agreed. MONITORING: An order for cardiac monitoring was placed and the patient is noted to be in a sinus tachycardia at 101 beats per minute. RADIOLOGY: See below EKG: Normal sinus rhythm at 100 bpm. No PVC, no PAC. Diffuse T wave abnormality, particularly in the anterior lateral leads. QTC is 446. Normal axis. DISPOSITION: Admission Past Med/Surg History Medical History Anxiety CAD (coronary artery disease) CKD (chronic kidney disease), stage III Dementia Diabetes mellitus, type II Diastolic dysfunction Dry eye syndrome Dyslipidemia GERD (gastroesophageal reflux disease) History of ND (myocardial infarction) Hypertension Kidney stones LVH (left ventricular hypertrophy) Osteoarthritis Peripheral neuropathy Surgical History History of appendectomy History of carpal tunnel release left History of cataract surgery RT/LEFT History of discectomy LUMBAR (TOTAL 2 LUMBAR DISCECTOMY) History of hysterectomy History of tooth extraction Hx of colonoscopy with polypectomy Hx of eye surgery LASER PROCEDURE S/P cystoscopy with ureteral stent placement 05/13/19 MAC Family History Brother Family history of diabetes mellitus Other Cancer Heart disease Kidney disease Social History Smoking Status: Unknown if ever smoked Tobacco Type: Cigarettes Second Hand Exposure: No; Hx Alcohol Use: No Hx Substance Use: No Preferred Language: Beninese Communication Ability: Impaired Tax Representative Required: No Beliefs That Will Affect Care: None marital status: Current Living Situation: Spouse current occupational status: retired Feels Safe at Home: Yes Assistive Devices: Walker Allergies Allergies Allergy/AdvReac Type Severity Reaction Status Date / Time oxycodone AdvReac Intermediate OVER Verified 05/24/21 17:06 SEDATED Home Meds Home Medications Medication Instructions Recorded Confirmed omega-3 fatty acids 1,000 mg 2,000 mg PO QAM #0 10/15/13 05/24/21 capsule omeprazole 20 mg tablet,delayed 20 mg PO QAM #0 10/15/13 05/24/21 release coenzyme Q10 100 mg capsule 100 mg PO QAM #0 01/04/16 05/24/21 atorvastatin 40 mg tablet 40 mg PO HS #0 04/09/17 05/24/21 dicyclomine 10 mg capsule 10 mg PO TIDM #0 04/09/17 05/24/21 peg 400-propylene glycol 0.4 %-0.3 1 drp OPHTHALMIC (EYE) QID PRN 05/12/19 05/24/21 % eye drops (Systane Ultra) vitamin B complex 1 tab PO DAILY 09/21/20 05/24/21 carvedilol 12.5 mg tablet 6.25 mg PO BID 10/10/20 05/24/21 magnesium chloride 128 mg PO QAM 10/10/20 05/24/21 nystatin 100,000 unit/gram topical 1 applic TOPICAL QID PRN 10/10/20 05/24/21 powder ferrous sulfate 325 mg (65 mg 650 mg PO DAILY 03/01/21 05/24/21 iron) tablet,delayed release aspirin 325 mg tablet 650 mg PO BID PRN 05/24/21 05/24/21 camphor-methyl salicylate-menthol 1 patch TOPICAL DAILY PRN 05/24/21 05/24/21 topical patch cyanocobalamin (vitamin B-12) 500 mcg PO DAILY 05/24/21 05/24/21 1,000 mcg tablet (Vitamin B-12) docusate sodium 100 mg capsule 100 mg PO BID PRN 05/24/21 05/24/21 furosemide 40 mg tablet 20 mg PO QAM 05/24/21 05/24/21 lorazepam 0.5 mg tablet 0.5 mg PO TID PRN 05/24/21 05/24/21 metformin 750 mg tablet,extended 750 mg PO BID 05/24/21 05/24/21 release 24 hr pregabalin 150 mg capsule 150 mg PO BID 05/24/21 05/24/21 repaglinide 0.5 mg tablet 0.5 mg PO TIDM 05/24/21 05/24/21 valerian root 100 mg capsule 100 mg PO DAILY PRN 05/24/21 05/24/21 Results & Data (ED) Vital Signs Vital Signs - 24 hr 05/24/21 14:40 05/24/21 14:43 05/24/21 15:08 Temperature 37.5 C 37.5 C Temperature Source Oral Oral Pulse Rate 101 H 99 H Pulse Rate [Apical] 101 H Pulse Rhythm Regular Regular Pulse Rhythm [Apical] Regular Pulse Strength Normal Pulse Strength [Apical] Normal Respiratory Rate 20 20 20 Respiratory Effort / Characteristics Non-Labored Spontaneous Non-Labored Spontaneous Respiratory Depth Normal Normal Respiratory Pattern Regular Blood Pressure 172/77 H Blood Pressure [Left Arm] 172/77 H Blood Pressure Mean 108 Blood Pressure Mean [Left Arm] 108 Blood Pressure Position Semi-fowlers Blood Pressure Position [Left Arm] Semi-fowlers Pulse Oximetry 92 92 92 Oxygen Delivery Method Room Air Room Air Room Air Sepsis Recent Fever Within 48 Hours No Sepsis New/Unexplained Change in Mental Status No Sepsis Action Taken by Nursing No Action Required Home Medications Current Medication List: was personally reviewed by me Laboratory Data Attestation: I reviewed the patient's lab results. Result diagrams: 05/25/21 07:48 05/25/21 07:48 Lab Results 05/24/21 05/24/21 05/24/21 Range/Units 15:11 15:25 15:25 WBC 5.31 (4.8-10.8) K/uL RBC 4.40 (4.2-5.4) M/uL Hgb 12.8 (12.0-16.0) g/dL Hct 41.5 (37-47) % MCV 94.3 (80-100) fL MCH 29.1 (25-34) pg MCHC 30.8 L (32-36) g/dL RDW Std Deviation 54.6 H (36.4-46.3) fL RDW Coeff of Pia 15.7 H (11.5-14.5) % Plt Count 156 (130-400) K/uL MPV 10.3 (7.4-10.4) fL Immature Gran % (Auto) 0.8 % Neut % (Auto) 72.4 % Lymph % (Auto) 14.5 % [place] % (Auto) 9.8 % Eos % (Auto) 2.3 % Baso % (Auto) 0.2 % Neut # (Auto) 3.85 (1.4-6.5) K/uL Lymph # (Auto) 0.77 L (1.2-3.4) K/uL [place] # (Auto) 0.52 (0.11-0.59) K/uL Eos # (Auto) 0.12 (0-0.5) K/uL Baso # (Auto) 0.01 (0-0.2) K/uL Immature Gran # (Auto) 0.04 H (0.00-0.02) K/uL Sodium 140 (136-145) mmol/L Potassium 4.0 (3.5-5.1) mmol/L Chloride 103 (98-107) mmol/L Carbon Dioxide 29 (21-32) mmol/L Anion Gap 8.0 (3-11) BUN 16 (7-18) mg/dl Creatinine 1.25 H (0.6-1.2) mg/dl Est Cr Clr Drug Dosing 38.9 ml/min Est GFR ( Amer) 47.4 ml/min Est GFR (Non-Af Amer) 40.9 ml/min BUN/Creatinine Ratio 13.0 (10-20) Glucose 158 H (70-99) mg/dl POC Glucose 212 H (70-99) mg/dl Calcium 10.0 (8.5-10.1) mg/dl Total Bilirubin 0.5 (0.2-1) mg/dl AST 21 (15-37) U/L ALT 32 (12-78) U/L Alkaline Phosphatase 77 (45-117) U/L Troponin I < 0.015 (0-0.045) ng/ml Total Protein 8.3 H (6.4-8.2) gm/dl Albumin 3.5 (3.4-5.0) gm/dl Globulin 4.8 H (2.5-4.0) gm/dl Albumin/Globulin Ratio 0.7 L (0.9-2) Urine Color Urine Appearance (Clear) Urine pH (4.5-7.5) Ur Specific [place] (1.000-1.030) Urine Protein (Negative) Urine Glucose (UA) (Negative) Urine Ketones (Negative) Urine Blood (Negative) Urine Nitrite (Negative) Urine Bilirubin (Negative) Urine Urobilinogen (Negative) Ur Leukocyte Esterase (Negative) Urine WBC (Auto) (0-5) /hpf Urine RBC (Auto) (0-4) /hpf U Hyaline Cast (Auto) (0-5) /lpf U Epithel Cells (Auto) (0-5) /lpf Urine Bacteria (Auto) (Negative) Urine Yeast SARS-CoV-2 (PCR) (Negative) SARS-CoV-2, RNA, NAAT 05/24/21 05/24/21 05/24/21 Range/Units 16:42 17:44 17:44 WBC (4.8-10.8) K/uL RBC (4.2-5.4) M/uL Hgb (12.0-16.0) g/dL Hct (37-47) % MCV (80-100) fL MCH (25-34) pg MCHC (32-36) g/dL RDW Std Deviation (36.4-46.3) fL RDW Coeff of Pia (11.5-14.5) % Plt Count (130-400) K/uL MPV (7.4-10.4) fL Immature Gran % (Auto) % Neut % (Auto) % Lymph % (Auto) % [place] % (Auto) % Eos % (Auto) % Baso % (Auto) % Neut # (Auto) (1.4-6.5) K/uL Lymph # (Auto) (1.2-3.4) K/uL [place] # (Auto) (0.11-0.59) K/uL Eos # (Auto) (0-0.5) K/uL Baso # (Auto) (0-0.2) K/uL Immature Gran # (Auto) (0.00-0.02) K/uL Sodium (136-145) mmol/L Potassium (3.5-5.1) mmol/L Chloride (98-107) mmol/L Carbon Dioxide (21-32) mmol/L Anion Gap (3-11) BUN (7-18) mg/dl Creatinine (0.6-1.2) mg/dl Est Cr Clr Drug Dosing ml/min Est GFR ( Amer) ml/min Est GFR (Non-Af Amer) ml/min BUN/Creatinine Ratio (10-20) Glucose (70-99) mg/dl POC Glucose (70-99) mg/dl Calcium (8.5-10.1) mg/dl Total Bilirubin (0.2-1) mg/dl AST (15-37) U/L ALT (12-78) U/L Alkaline Phosphatase (45-117) U/L Troponin I (0-0.045) ng/ml Total Protein (6.4-8.2) gm/dl Albumin (3.4-5.0) gm/dl Globulin (2.5-4.0) gm/dl Albumin/Globulin Ratio (0.9-2) Urine Color Yellow Urine Appearance Cloudy A (Clear) Urine pH 5.5 (4.5-7.5) Ur Specific [place] 1.013 (1.000-1.030) Urine Protein Trace H (Negative) Urine Glucose (UA) Negative (Negative) Urine Ketones Negative (Negative) Urine Blood Trace H (Negative) Urine Nitrite Negative (Negative) Urine Bilirubin Negative (Negative) Urine Urobilinogen Negative (Negative) Ur Leukocyte Esterase Trace H (Negative) Urine WBC (Auto) 5-10 H (0-5) /hpf Urine RBC (Auto) 0-4 (0-4) /hpf U Hyaline Cast (Auto) 1-5 (0-5) /lpf U Epithel Cells (Auto) >30 H (0-5) /lpf Urine Bacteria (Auto) Negative (Negative) Urine Yeast Not Reportable SARS-CoV-2 (PCR) NEGATIVE (Negative) SARS-CoV-2, RNA, NAAT Cancelled Administered Medications Discontinued Medications Amlodipine Besylate (Amlodipine Besylate 5 Mg Tab) 5 mg PO NOW ONE Stop: 05/24/21 19:10 Last Admin: 05/24/21 20:10 Dose: 5 mg Documented by: [id number] Atorvastatin Calcium (Atorvastatin 40 Mg Tab) 40 mg PO HS URI Stop: 06/23/21 21:59 Last Admin: 05/24/21 23:09 Dose: 40 mg Documented by: [id number] Carvedilol (Carvedilol 3.125 Mg Tab) 6.25 mg PO NOW ONE Stop: 05/24/21 18:15 Last Admin: 05/24/21 20:09 Dose: 6.25 mg Documented by: [id number] Carvedilol (Carvedilol 6.25 Mg Tab) 6.25 mg PO BID URI Stop: 06/23/21 21:59 Last Admin: 05/25/21 07:45 Dose: 6.25 mg Documented by: [id number] Admin: 05/24/21 23:08 Dose: 6.25 mg Documented by: [id number] Dicyclomine HCl (Dicyclomine Hcl 10 Mg Cap) 10 mg PO TIDM URI Stop: 06/24/21 07:59 Last Admin: 05/25/21 12:37 Dose: 10 mg Documented by: [id number] Admin: 05/25/21 07:46 Dose: 10 mg Documented by: [id number] Ferrous Sulfate (Ferrous Sulfate 325 Mg Tab) 650 mg PO DAILY URI Stop: 06/24/21 08:59 Last Admin: 05/25/21 07:46 Dose: 650 mg Documented by: [id number] Furosemide (Furosemide 20 Mg Tab) 20 mg PO QAM URI Stop: 06/24/21 08:59 Last Admin: 05/25/21 07:45 Dose: 20 mg Documented by: [id number] Heparin Sodium (Porcine) (Heparin Sod 5,000 Unit/0.5 Ml Vial) 5,000 units SQ Q8 URI Stop: 06/23/21 21:59 Last Admin: 05/25/21 14:09 Dose: 5,000 units Documented by: [id number] Admin: 05/25/21 06:06 Dose: 5,000 units Documented by: [id number] Admin: 05/24/21 23:10 Dose: 5,000 units Documented by: [id number] Sodium Chloride (Nss 1000ml) 1,000 mls @ 125 mls/hr IV .Q8H URI Stop: 06/23/21 14:59 Last Infusion: 05/24/21 22:40 Dose: 0 mls/hr Documented by: [id number] Admin: 05/24/21 15:32 Dose: 125 mls/hr Documented by: [id number] Insulin Aspart (Insulin Aspart 100 Units/Ml 3 Ml Pen) 0 units SC ACHS URI Stop: 06/23/21 21:17 Last Admin: 05/25/21 12:37 Dose: 5 units Documented by: [id number] Cosigned by: [id number] Admin: 05/25/21 09:00 Dose: 2 units Documented by: [id number] Cosigned by: [id number] Admin: 05/24/21 23:02 Dose: 1 units Documented by: [id number] Cosigned by: [id number] Magnesium Chloride (Magnesium Chloride 64mg Delayed Rel Tab) 128 mg PO QAM URI Stop: 06/24/21 08:59 Last Admin: 05/25/21 07:46 Dose: 128 mg Documented by: [id number] Pantoprazole Sodium (Pantoprazole 40 Mg Tab) 40 mg PO QAM URI Stop: 06/24/21 08:59 Last Admin: 05/25/21 10:42 Dose: 40 mg Documented by: [id number] Pregabalin (Pregabalin 150 Mg Cap) 150 mg PO BID URI Stop: 06/23/21 21:59 Last Admin: 05/25/21 10:43 Dose: 150 mg Documented by: [id number] Admin: 05/24/21 23:10 Dose: 150 mg Documented by: [id number] Vitamin B Complex (Vitamin B Complex Tab) 1 tab PO DAILY URI Stop: 06/24/21 08:59 Last Admin: 05/25/21 07:46 Dose: 1 tab Documented by: [id number] Imaging Data Radiologist's Impression: Chest X-Ray 05/24/21 14:47 XR chest 1V portable CLINICAL HISTORY: Weak, dizzy TECHNIQUE: Single frontal radiograph of the chest was obtained. Comparison: Comparison is made to chest one view 03/08/2021 FINDINGS: No lines and tubes are seen. Calcified aortic knob is seen. The lungs are clear. No evidence of pleural effusion or pneumothorax. IMPRESSION: No acute chest disease. ACT 112: Negative or not required by law. Electronically signed by: Mati Daniel M.D. 05/24/2021 4:[address] 05/24/21 16:09 CT SCAN OF THE CERVICAL SPINE CLINICAL HISTORY: Fall. COMPARISON STUDY: CT of the neck dated 04/07/2021. TECHNIQUE: CT scan of the cervical spine is performed from the skull base to the upper thoracic spine. Images are reviewed in the axial, sagittal, and coronal planes. IV contrast was not administered for this examination. A dose lowering technique was utilized adhering to the principles of ALARA. CT DOSE: 1069.41 mGy.cm FINDINGS: Skeletal structures: The skeletal structures are osteopenic. There is no eviden ce of fracture or subluxation involving the cervical spine. Vertebral body height and alignment are maintained. There is straightening of the cervical lordosis. Anterior osteophytes are seen throughout. The odontoid process and lateral masses are intact. The atlantoaxial articulation is preserved noting productive degenerative change. The spinous processes appear intact. There is moderate moderate to advanced cervical spondylosis. Uncovertebral and facet arthropathy contribute to neural foraminal narrowing at several levels. Intervertebral discs: Moderate disc space narrowing is seen at all cervical levels. Central canal: Posterior disc osteophyte complexes are seen at all levels between C3-C4 and C6-C7. This likely contributes to multilevel acquired compromise of the central canal. Soft tissues: The prevertebral and paraspinous soft tissues are within normal limits. Thyroid goiter is unchanged from prior studies. This causes rightward deviation of the trachea. There is atherosclerotic calcification of the carotid bulbs. Calvarium: The visualized calvarium at the skull base appears intact. Brain parenchyma: Partially visualized brain parenchyma at the skull base is within normal limits. Sinuses and mastoids: The visualized paranasal sinuses are clear. The mastoid air cells are well pneumatized. Lung apices: Clear as visualized. IMPRESSION: 1. There is no evidence of fracture or subluxation involving the cervical spine. 2. Osteopenia and spondylotic change as above. ACT 112: Negative or not required by law. Electronically signed by: Jerry Heart M.D. 05/24/2021 5:[address] 05/24/21 16:09 CT SCAN OF THE BRAIN WITHOUT IV CONTRAST CLINICAL HISTORY: Dizziness. Fall. COMPARISON STUDY: CT of the brain dated 03/01/2021. TECHNIQUE: Unenhanced axial CT scan of the brain is performed from the vertex to the skull base. A dose lowering technique was utilized adhering to the principles of ALARA. FINDINGS: Brain parenchyma: There are age-related involutional changes noting mild to moderate subcortical and periventricular microangiopathic change. There is no hemorrhage, mass effect, or evidence of acute territorial ischemia by CT criteria. [place]-white matter differentiation is preserved. No extra-axial fluid collection is seen. Mineralization is noted in the basal ganglia and the cerebellum. Ventricles, sulci, cisterns: Prominent secondary to involutional change. Intracranial vasculature: There is atherosclerotic calcification of the ca vernous carotid and vertebral arteries. Calvarium: The skeletal structures are osteopenic. No depressed calvarial fracture is identified. Sinuses and mastoids: The visualized paranasal sinuses are clear. The mastoid air cells are well pneumatized. Orbits: The bony orbits are grossly intact. There are bilateral ocular lens implants. IMPRESSION: There is no hemorrhage, mass effect, or evidence of acute territorial ischemia by CT criteria. ACT 112: Negative or not required by law. Electronically signed by: Jerry Heart M.D. 05/24/2021 5:01 PM Blood Pressure Blood Pressure Findings: Elevated blood pressure Blood Pressure Disposition: further management by hospitalist Discharge Plan Visit Data Chief Complaint: Fall Stated Complaint: FALL ED Provider: Nelli Eastman Discharge Problem: Hypertension, Falls frequently, Ambulatory dysfunction Patient Disposition: Transfer Inpatient Rehab Fac Discharge Instructions Interventions: ED Discharge Assessment Last Done: 05/24/21 21:22 Discharge Problem: Hypertension Qualifiers: Hypertension type: primary hypertension Qualified Code(s): I10 - Essential (primary) hypertension
[2021-05-24] MEDS ORDERED: carvediloL 3.125 MG TAB PO ONE (18:14)
--- NOTE | 2021-05-24 18:45 | History & Physical Report ---
Date of Service May 24, 2021 Assessment & Plan (1) Ambulatory dysfunction: (2) CAD (coronary artery disease): (3) Generalized weakness: (4) Iron deficiency anemia: (5) Diabetes mellitus, type II: (6) Dyslipidemia: (7) CKD (chronic kidney disease), stage III: (8) Diastolic dysfunction: (9) Hypertension: (10) GERD (gastroesophageal reflux disease): Plan: Pt with progressive weakness over the past couple of days and now with fall at home. Pt's brought her to the ED because he cannot handle her at home in her current condition - willing to consider returning to acute rehab. Noted to have marked BP elevation in the ED even though reports no missed doses of medication. - Admit to med/surg tele while attempt to get BP under better control - Continue home meds, amlodipine 5 mg x 1 in the ED - Add prn Labetalol for SBP >180, DBP >100 - Diabetic diet, accuchecks, sliding scale insulin, hold oral diabetic meds while admitted - PT/OT consults - Labs in AM - Fall precautions - Repeat troponin this evening, repeat EKG in AM - Continue other home meds as appropriate Pt seen and evaluated with Dr. Hernadez. Plan of care discussed and as outlined above. DVT Prophylaxis: Heparin sub Q Code Status: full code Tommie Garibay PA-C History of Present Illness Chief Complaint: Weakness, fall Primary Care Provider: [facility] MD This is a 80 y/o female with a PMH of HTN, dyslipidemia, DM II, GERD, CKD III, diastolic dysfunction, LVH, recent left fibular fracture, peripheral neuropathy, recent thrombosis of left EJ, thyroid nodule, prior MS, dementia, and anxiety who presents to the ED after a fall at home today. She was admitted to this facility 03/01-03/09/21 with fall, left fibular fracture, acute on chronic diastolic HF, and VALERIY on CKD. She was sent to [facility] for rehab at discharged and was there until 04/21. Since discharge from [facility] on 04/21, she has had home health services including PT, OT, nurse, aid and outpatient patient case manager through PCP. On Friday, she was discharged from home PT. On Friday (2 days ago), she had the COVID booster. Yesterday, she didn't seem as strong as she had been but was still able to move around. Today, she was weaker and required significant assistance to get off the commode. The second time she used the bathroom, her was unable to get her off the commode so he went to call 911. While he stepped away, she slid off onto the floor. Didn't hit head, no LOC. She notes chronic dizziness - not worse than usual. No acute visual changes. Recent ankle fracture that is being managed conservatively. Denies at present any pain, SOB, N/V/D, abdominal pain. Has intermittent issues with constipation - unsure if related to iron supplement that she takes. May have 2- 3 small volume hard stools in a day. Using prune juice and prn stool softener. Had all of her morning meds today. Allergies Allergy/AdvReac Type Severity Reaction Status Date / Time oxycodone AdvReac Intermediate OVER Verified 05/24/21 17:06 SEDATED Home Medications Medication Instructions Recorded Confirmed Type omega-3 fatty acids 1,000 mg 2,000 mg PO QAM #0 10/15/13 05/24/21 History capsule omeprazole 20 mg tablet,delayed 20 mg PO QAM #0 10/15/13 05/24/21 History release coenzyme Q10 100 mg capsule 100 mg PO QAM #0 01/04/16 05/24/21 History atorvastatin 40 mg tablet 40 mg PO HS #0 04/09/17 05/24/21 History dicyclomine 10 mg capsule 10 mg PO TIDM #0 04/09/17 05/24/21 History peg 400-propylene glycol 0.4 %-0.3 1 drp OPHTHALMIC (EYE) QID PRN 05/12/19 05/24/21 History % eye drops (Systane Ultra) vitamin B complex 1 tab PO DAILY 09/21/20 05/24/21 History carvedilol 12.5 mg tablet 6.25 mg PO BID 10/10/20 05/24/21 History magnesium chloride 128 mg PO QAM 10/10/20 05/24/21 History nystatin 100,000 unit/gram topical 1 applic TOPICAL QID PRN 10/10/20 05/24/21 History powder ferrous sulfate 325 mg (65 mg 650 mg PO DAILY 03/01/21 05/24/21 History iron) tablet,delayed release aspirin 325 mg tablet 650 mg PO BID PRN 05/24/21 05/24/21 History camphor-methyl salicylate-menthol 1 patch TOPICAL DAILY PRN 05/24/21 05/24/21 History topical patch cyanocobalamin (vitamin B-12) 500 mcg PO DAILY 05/24/21 05/24/21 History 1,000 mcg tablet (Vitamin B-12) docusate sodium 100 mg capsule 100 mg PO BID PRN 05/24/21 05/24/21 History furosemide 40 mg tablet 20 mg PO QAM 05/24/21 05/24/21 History lorazepam 0.5 mg tablet 0.5 mg PO TID PRN 05/24/21 05/24/21 History metformin 750 mg tablet,extended 750 mg PO BID 05/24/21 05/24/21 History release 24 hr pregabalin 150 mg capsule 150 mg PO BID 05/24/21 05/24/21 History repaglinide 0.5 mg tablet 0.5 mg PO TIDM 05/24/21 05/24/21 History valerian root 100 mg capsule 100 mg PO DAILY PRN 05/24/21 05/24/21 History Past Med/Surg History Medical History Anxiety CAD (coronary artery disease) CKD (chronic kidney disease), stage III Dementia Diabetes mellitus, type II Diastolic dysfunction Dry eye syndrome Dyslipidemia GERD (gastroesophageal reflux disease) History of MS (myocardial infarction) Hypertension Kidney stones LVH (left ventricular hypertrophy) Osteoarthritis Peripheral neuropathy Surgical History History of appendectomy History of carpal tunnel release left History of cataract surgery RT/LEFT History of discectomy LUMBAR (TOTAL 2 LUMBAR DISCECTOMY) History of hysterectomy History of tooth extraction Hx of colonoscopy with polypectomy Hx of eye surgery LASER PROCEDURE S/P cystoscopy with ureteral stent placement 05/13/19 MAC Family History Brother Family history of diabetes mellitus Other Cancer Heart disease Kidney disease Social History (Updated 05/24/21 @ 20:07 by Patsy Garibay PA-C) Smoking Status: Former smoker Tobacco Type: Cigarettes Second Hand Exposure: No; Hx Alcohol Use: No Hx Substance Use: No Preferred Language: Tristanian Communication Ability: Effective 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 Beliefs That Will Affect Care: None marital status: Current Living Situation: Spouse current occupational status: retired Feels Safe at Home: Yes Assistive Devices: Denture - Upper, Denture - Lower, Walker and Wheelchair Assistive Devices Comment: more recently using wheelchair due to left fibular fx Review of Systems Review of Systems: All systems reviewed & are unremarkable except as noted in HPI & below Constitutional: + fatigue and + weakness; no fever and no chills Eyes: no diplopia and no worsening vision Ear, Nose, Mouth, Throat: no nasal congestion and no sore throat Respiratory: no cough, no dyspnea and no wheezing Cardiovascular: + lightheadedness (chronic); no chest pain, no palpitations and no syncope Gastrointestinal: + constipation; no abdominal pain, no nausea, no vomiting and no diarrhea/loose stools Genitourinary: no dysuria and no urinary frequency Musculoskeletal: + muscle weakness Integumentary: no rash and no yellowing of the skin Neurologic: no seizure-like activity and no headache(s) Physical Exam Constitutional: + obese; no acute distress Eyes: + anicteric sclerae and EOM intact bilaterally; no scleral abnormality and no nystagmus Neck: trachea midline Respiratory: no respiratory distress and does not use accessory muscles Auscultation: + crackles (bibasilar); no rhonchi and no wheezes Cardiovascular: Rate/Rhythm: regular rhythm and + tachycardic Heart Sounds: no murmur Vessels: radial pulses present Extremities: + edema (trace LE) Gastrointestinal (Abdomen): Inspection/Auscultation: normal bowel sounds Percussion/Palpation: abdomen soft; abdomen nontender Musculoskeletal: Head/Neck/Chest: normocephalic, head atraumatic and neck sup ple Skin: no jaundice Neurologic: moves all extremities; no focal motor deficits Results & Data Results & Data ([facility]) Vital Signs (Past 12 Hours) Vital Signs Temp Pulse Pulse Resp BP BP Pulse Ox 05/24/21 17:58 107 H 20 154/118 H 96 05/24/21 15:08 99 H 20 92 05/24/21 14:43 37.5 C 101 H 20 172/77 H 92 05/24/21 14:40 37.5 C 101 H 20 172/77 H 92 Laboratory Results Laboratory Results - last 24 hr 05/24/21 05/24/21 05/24/21 15:11 15:25 15:25 WBC 5.31 RBC 4.40 Hgb 12.8 Hct 41.5 MCV 94.3 MCH 29.1 MCHC 30.8 L RDW Std Deviation 54.6 H RDW Coeff of Pia 15.7 H Plt Count 156 MPV 10.3 Immature Gran % (Auto) 0.8 Neut % (Auto) 72.4 Lymph % (Auto) 14.5 [place] % (Auto) 9.8 Eos % (Auto) 2.3 Baso % (Auto) 0.2 Neut # (Auto) 3.85 Lymph # (Auto) 0.77 L [place] # (Auto) 0.52 Eos # (Auto) 0.12 Baso # (Auto) 0.01 Immature Gran # (Auto) 0.04 H Sodium 140 Potassium 4.0 Chloride 103 Carbon Dioxide 29 Anion Gap 8.0 BUN 16 Creatinine 1.25 H Est Cr Clr Drug Dosing 38.9 Est GFR ( Amer) 47.4 Est GFR (Non-Af Amer) 40.9 BUN/Creatinine Ratio 13.0 Glucose 158 H POC Glucose 212 H Calcium 10.0 Total Bilirubin 0.5 AST 21 ALT 32 Alkaline Phosphatase 77 Troponin I < 0.015 Total Protein 8.3 H Albumin 3.5 Globulin 4.8 H Albumin/Globulin Ratio 0.7 L Urine Color Urine Appearance Urine pH Ur Specific [place] Urine Protein Urine Glucose (UA) Urine Ketones Urine Blood Urine Nitrite Urine Bilirubin Urine Urobilinogen Ur Leukocyte Esterase Urine WBC (Auto) Urine RBC (Auto) U Hyaline Cast (Auto) U Epithel Cells (Auto) Urine Bacteria (Auto) Urine Yeast SARS-CoV-2, RNA, NAAT 05/24/21 05/24/21 16:42 17:44 WBC RBC Hgb Hct MCV MCH MCHC RDW Std Deviation RDW Coeff of Pia Plt Count MPV Immature Gran % (Auto) Neut % (Auto) Lymph % (Auto) [place] % (Auto) Eos % (Auto) Baso % (Auto) Neut # (Auto) Lymph # (Auto) [place] # (Auto) Eos # (Auto) Baso # (Auto) Immature Gran # (Auto) Sodium Potassium Chloride Carbon Dioxide Anion Gap BUN Creatinine Est Cr Clr Drug Dosing Est GFR ( Amer) Est GFR (Non-Af Amer) BUN/Creatinine Ratio Glucose POC Glucose Calcium Total Bilirubin AST ALT Alkaline Phosphatase Troponin I Total Protein Albumin Globulin Albumin/Globulin Ratio Urine Color Yellow Urine Appearance Cloudy A Urine pH 5.5 Ur Specific [place] 1.013 Urine Protein Trace H Urine Glucose (UA) Negative Urine Ketones Negative Urine Blood Trace H Urine Nitrite Negative Urine Bilirubin Negative Urine Urobilinogen Negative Ur Leukocyte Esterase Trace H Urine WBC (Auto) 5-10 H Urine RBC (Auto) 0-4 U Hyaline Cast (Auto) 1-5 U Epithel Cells (Auto) >30 H Urine Bacteria (Auto) Negative Urine Yeast Not Reportable SARS-CoV-2, RNA, NAAT Pending Medications Administered Sodium Chloride (Nss 1000ml) 1,000 mls @ 125 mls/hr IV .Q8H URI Stop: 06/23/21 14:59 Last Admin: 05/24/21 15:32 Dose: 125 mls/hr Documented by: [id number] Supervising Physician Co-Signing Physician Notes Patient is a 80-year-old female with history of hypertension, CKD stage III, diastolic heart failure and other medical problems presents for evaluation after having sustained a fall at home today resulting in ambulatory dysfunction. Patient's family states that patient had a Covid booster shot 2 days ago and had significant weakness since then. She was found to have hypertensive urgency while in ED, patient's family states that it is common for her in the past as well. Please review HPI for complete details of presentation. Physical Exam: Vitals signs as noted above General Appearance:Morbidly obese, No distress Head: normocephalic, Atraumatic Eyes: normal inspection, EOMI Neck: supple, Trachea midline Respiratory/Chest: Normal breath sounds, basal crackles, No accessory muscle use Cardiovascular: S1, S2, No murmur, tachycardia Abdomen/GI:Soft, Non tender, Bowel sounds present Extremities/Musculoskeletal:normal inspection, trace pedal edema, left ankle in brace Neurologic/Psych:AAOX3, grossly no focal neurological deficits Skin: normal color, warm Mechanical fall Generalized weakness No ambulatory dysfunction Hypertensive urgency Abnormal EKG Agree with fall precautions, PT OT Agree with labetalol as needed Resume home medications for blood pressure management Will adjust medications for hypertension as needed Follow-up MRI brain Repeat EKG in the morning and trend cardiac enzymes Patient denies any chest pain I personally reviewed the record. Patient is interviewed and examined at bedside. Patient's care is coordinated with Patsy Garibay PA-C. Please refer to the documentation above for details of patient's presentation and for discussion of other issues. (1) Hypertension Hypertension type: primary hypertension Qualified Code(s): I10 - Essential (primary) hypertension
[2021-05-24] MEDS ORDERED: amLODIPine BESYLATE 5 MG TAB PO ONE (19:09)
[2021-05-24] MEDS ORDERED: LABETALOL HCL IV 5 MG/ML 20ML IV PRN (19:56)
[2021-05-24] MEDS ORDERED: DEXTROSE 50% 50 ML SYRINGE IV PRN (21:18)
[2021-05-24] MEDS ORDERED: LORazepam 0.5 MG TAB PO PRN (21:18)
[2021-05-24] MEDS ORDERED: GLUCOSE 40% GEL 15 GM TUBE PO PRN (21:18)
[2021-05-24] MEDS ORDERED: GLUCAGON FOR INJ 1 MG VIAL SQ PRN (21:18)
[2021-05-24] MEDS ORDERED: ACETAMINOPHEN 325 MG TAB PO PRN (21:18)
[2021-05-24] MEDS ORDERED: CARBOHYDRATES FOR HYPOGLYCEMIA PO PRN (21:18)
[2021-05-24] MEDS ORDERED: NYSTATIN POWDER 15GM BTL EXT PRN (21:18)
[2021-05-24] MEDS ORDERED: GLUCOSE 10 TABS/TUBE PO PRN (21:18)
[2021-05-24] MEDS ORDERED: DOCUSATE SODIUM 100 MG CAP PO PRN (21:18)
--- NOTE | 2021-05-24 21:35 | Magnetic Resonance Report ---
MRI OF THE BRAIN WITHOUT IV CONTRAST CLINICAL HISTORY: Generalized weakness. COMPARISON STUDY: CT of the brain dated 05/24/2021. TECHNIQUE: MRI of the brain was performed utilizing various T1 and T2-weighted sequences in the axial , sagittal, and coronal planes. IV contrast was not administered for this examination. The examinatio n is modestly degraded by motion artifact. FINDINGS: Brain parenchyma: There is age-related involutional change noting moderate subcortical and periventri cular microangiopathic disease. There is no hemorrhage or mass effect. There is no restricted diffusi on to suggest acute ischemia. Aldrich-white matter differentiation is preserved. No extra-axial fluid co llection is seen. The cerebellar tonsils are normal in configuration. Mineralization is noted in the basal ganglia and the cerebellar hemispheres. Ventricles, sulci, and cisterns: Prominent secondary to involutional change. Pituitary and sella: Partially empty sella is incidentally noted. Intracranial vasculature: Normal flow voids are maintained at the skull base. Orbits: The bony orbits are grossly intact. Orbital contents are normal in appearance noting bilatera l ocular lens implants. Sinuses and mastoids: Clear. Calvarium: Unremarkable. Cervical cord: Partially visualized cervical spinal cord is normal in morphology and signal intensity . IMPRESSION: No acute intracranial abnormality. ACT 112: Negative or not required by law. Electronically signed by: Jerry Heart M.D. 05/24/2021 9:33 PM
[2021-05-24] MEDS ORDERED: ARTIFICIAL TEARS OP PRN (21:46)
[2021-05-24] MEDS ORDERED: ATORVASTATIN 40 MG TAB PO SCH (22:00)
[2021-05-24] MEDS: INSULIN ASPART 100 UNITS/ML 3 ML PEN SC SCH (23:02)
[2021-05-24] MEDS: carvediloL 6.25 MG TAB PO SCH (23:08)
[2021-05-24] MEDS: HEPARIN SOD 5,000 UNIT/0.5 ML VIAL SQ SCH (23:10)
[2021-05-24] MEDS: PREGABALIN 150 MG CAP PO SCH (23:10)
[2021-05-25] MEDS: HEPARIN SOD 5,000 UNIT/0.5 ML VIAL SQ SCH ×2 (06:06→14:09)
[2021-05-25] MEDS: carvediloL 6.25 MG TAB PO SCH (07:45)
[2021-05-25] MEDS: DICYCLOMINE HCL 10 MG CAP PO SCH ×2 (07:46→12:37)
[2021-05-25 08:04] LABS: Basophils # (auto) 0.02 K/uL (0-0.2); Basophils % (auto) 0.5 %; Eosinophils # (auto) 0.27 K/uL (0-0.5); Eosinophils % (auto) 6.4 %; Hematocrit (blood only) 35.6 % (37-47); Immature Granulocytes # (auto) 0.03 K/uL (0.00-0.02); Immature Granulocytes % (auto) 0.7 %; Lymphocytes # (auto) 0.77 K/uL (1.2-3.4); Lymphocytes % (auto) 18.1 %; Mean Corpuscular Hemoglobin 28.8 pg (25-34); Mean Corpuscular Hgb Conc 30.9 g/dL (32-36); Mean Corpuscular Volume 93.2 fL (80-100); Mean Platelet Volume 9.8 fL (7.4-10.4); Monocytes # (auto) 0.43 K/uL (0.11-0.59); Monocytes % (auto) 10.1 %; Neutrophils # (auto) 2.73 K/uL (1.4-6.5); Neutrophils % (auto) 64.2 %; Platelet Count 132 K/uL (130-400); RDW Coefficient of Variation 15.7 % (11.5-14.5); RDW Standard Deviation 53.5 fL (36.4-46.3); Red Blood Count 3.82 M/uL (4.2-5.4); White Blood Count 4.25 K/uL (4.8-10.8)
[2021-05-25 08:30] LABS: BUN Creatinine Ratio 16.4 (10-20); Calcium 8.9 mg/dl (8.5-10.1); Creatinine Clr Calc Pharmacy 54.6 ml/min; Est GFR (African American) 71.4 ml/min; Est GFR (Non-African American) 61.6 ml/min; Potassium 3.8 mmol/L (3.5-5.1)
[2021-05-25 08:38] LABS: Estimated Average Glucose 154 mg/dl
[2021-05-25] MEDS ORDERED: FERROUS SULFATE 325 MG TAB PO SCH (09:00)
[2021-05-25] MEDS: INSULIN ASPART 100 UNITS/ML 3 ML PEN SC SCH ×2 (09:00→12:37)
[2021-05-25] MEDS ORDERED: FUROSEMIDE 20 MG TAB PO SCH (09:00)
[2021-05-25] MEDS ORDERED: PANTOprazole 40 MG TAB PO SCH (09:00)
[2021-05-25] MEDS ORDERED: MAGNESIUM CHLORIDE 64MG DELAYED REL TAB PO SCH (09:00)
[2021-05-25] MEDS ORDERED: VITAMIN B COMPLEX TAB PO SCH (09:00)
[2021-05-25] MEDS: PREGABALIN 150 MG CAP PO SCH (10:43)
--- NOTE | 2021-05-25 13:39 | Hospitalist Progress Note ---
Date of Service May 25, 2021 Assessment & Plan (1) Ambulatory dysfunction: (2) CAD (coronary artery disease): (3) Generalized weakness: (4) Iron deficiency anemia: (5) Diabetes mellitus, type II: (6) Dyslipidemia: (7) CKD (chronic kidney disease), stage III: (8) Diastolic dysfunction: (9) Hypertension: (10) GERD (gastroesophageal reflux disease): Plan: Patient presents with progressive weakness over the past couple of days and now with fall at home. Pt's brought her to the ED because he cannot handle her at home in her current condition - willing to consider returning to acute rehab. Mechanical fall Generalized weakness No ambulatory dysfunction Hypertensive urgency DM II MRI brain, CT head, CT neck showed no acute findings. Chest x-ray showed no acute process Patient accepted to rehab facility for ambulatory dysfunction Blood pressure improved with resuming home medications Diabetic diet, accuchecks, sliding scale insulin, hold oral diabetic meds while admitted PT/OT Fall precautions DVT Px Heparin SQ Code Status: full code Admission and Anticipated Discharge Date Admission Date: May 24, 2021 Subjective Patient is seen and examined at bedside States having generalized weakness Denies any chest pain, shortness of breath, dizziness, nausea, abdominal pain Plan to be discharged to rehab facility today Review of Systems Review of Systems: All systems reviewed & are unremarkable except as noted in Subjective Physical Exam Physical Exam: Physical Exam: Vitals signs as noted above General Appearance:Morbidly obese, No distress Head: normocephalic, Atraumatic Eyes: normal inspection, EOMI Neck: supple, Trachea midline Respiratory/Chest: Normal breath sounds, basal crackles, No accessory muscle use Cardiovascular: S1, S2, No murmur, tachycardia Abdomen/GI:Soft, Non tender, Bowel sounds present Extremities/Musculoskeletal:normal inspection, trace pedal edema, left ankle in brace Neurologic/Psych:AAOX3, grossly no focal neurological deficits Skin: normal color, warm Results & Data Results & Data ([facility]) Vital Signs (Past 12 Hours) Vital Signs Pulse Resp BP BP Pulse Ox 05/25/21 07:41 88 18 128/81 97 05/25/21 05:19 87 20 131/70 97 Laboratory Results Short CBC 05/25/21 Range/Units 07:48 WBC 4.25 L (4.8-10.8) K/uL Hgb 11.0 L (12.0-16.0) g/dL Hct 35.6 L (37-47) % Plt Count 132 (130-400) K/uL BMP 05/25/21 07:48 Sodium 138 Potassium 3.8 Chloride 104 Carbon Dioxide 26 BUN 15 Creatinine 0.89 D Glucose 157 H Calcium 8.9 Cardiac Enzymes 05/24/21 Range/Units 21:30 Troponin I < 0.015 (0-0.045) ng/ml (1) Hypertension Hypertension type: primary hypertension Qualified Code(s): I10 - Essential (primary) hypertension
--- NOTE | 2021-05-25 17:28 | Discharge Summary ---
Date of Service May 25, 2021 Admission HPI Per Admitting Provider This is a 80 y/o female with a PMH of HTN, dyslipidemia, DM II, GERD, CKD III, diastolic dysfunction, LVH, recent left fibular fracture, peripheral neuropathy, recent thrombosis of left EJ, thyroid nodule, prior DC, dementia, and anxiety who presents to the ED after a fall at home today. She was admitted to this facility 03/01-03/09/21 with fall, left fibular fracture, acute on chronic diastolic HF, and VALERIY on CKD. She was sent to [facility] for rehab at discharged and was there until 04/21. Since discharge from [facility] on 04/21, she has had home health services including PT, OT, nurse, aid and outpatient case monitor through PCP. On Friday, she was discharged from home PT. On Friday (2 days ago), she had the COVID booster. Yesterday, she didn't seem as strong as she had been but was still able to move around. Today, she was weaker and required significant assistance to get off the commode. The second time she used the bathroom, her was unable to get her off the commode so he went to call 911. While he stepped away, she slid off onto the floor. Didn't hit head, no LOC. She notes chronic dizziness - not worse than usual. No acute visual changes. Recent ankle fracture that is being managed conservatively. Denies at present any pain, SOB, N/V/D, abdominal pain. Has intermittent issues with constipation - unsure if related to iron supplement that she takes. May have 2- 3 small volume hard stools in a day. Using prune juice and prn stool softener. Had all of her morning meds today. Admission Exam Per Admitting Provider Physical Exam Constitutional: + obese; no acute distress Eyes: + anicteric sclerae and EOM intact bilat erally; no scleral abnormality and no nystagmus Neck: trachea midline Respiratory: no respiratory distress and does not use accessory muscles Auscultation: + crackles (bibasilar); no rhonchi and no wheezes Cardiovascular: Rate/Rhythm: regular rhythm and + tachycardic Heart Sounds: no murmur Vessels: radial pulses present Extremities: + edema (trace LE) Gastrointestinal (Abdomen): Inspection/Auscultation: normal bowel sounds Percussion/Palpation: abdomen soft; abdomen nontender Musculoskeletal: Head/Neck/Chest: normocephalic, head atraumatic and neck supple Skin: no jaundice Neurologic: moves all extremities; no focal motor deficits Principal Diagnosis Mechanical fall Generalized weakness Ambulatory dysfunction Hypertensive urgency--Resolved Discharge Data Allergies Allergy/AdvReac Type Severity Reaction Status Date / Time oxycodone AdvReac Intermediate OVER Verified 05/24/21 17:06 SEDATED Consultations 05/24/21 18:14 ED Decision to Admit Stat Ordered Studies 05/24/21 16:09 CT cervical spine wo con Stat CT head/brain wo con Stat 05/24/21 19:45 MR brain wo con Routine Hospital Course (1) Ambulatory dysfunction: (2) CAD (coronary artery disease): (3) Generalized weakness: (4) Iron deficiency anemia: (5) Diabetes mellitus, type II: (6) Dyslipidemia: (7) CKD (chronic kidney disease), stage III: (8) Diastolic dysfunction: (9) Hypertension: (10) GERD (gastroesophageal reflux disease): Patient presents with progressive weakness over the past couple of days and now with fall at home. Pt's brought her to the ED because he cannot handle her at home in her current condition - willing to consider returning to acute rehab. Mechanical fall Generalized weakness No ambulatory dysfunction Hypertensive urgency DM II MRI brain, CT head, CT neck showed no acute findings. Chest x-ray showed no acute process Patient accepted to rehab facility for ambulatory dysfunction Blood pressure improved with resuming home medications Diabetic diet, accuchecks, sliding scale insulin, hold oral diabetic meds while admitted PT/OT Fall precautions DVT Px Heparin SQ Code Status: full code Total Time Total Time Spent Total Time Spent (In Minutes): 44 minutes Discharge Plan Discharge Items Patient Disposition: Transfer Inpatient Rehab Fac Reason For Visit: FALL, WEAKNESS Discharge Diagnosis: Mechanical fall Generalized weakness Ambulatory dysfunction Hypertensive urgency--Resolved Activity: Per Instructions section Exercise/Sports: Gradually increase as tolerated Non-emergency contact: Primary Care Provider and Call Center Coordinator Call non-emergency contact if: you have any medication questions, your symptoms worsen, your pain is concerning for you and you have a fever Follow-up/Referrals: [facility] MD [Primary Care Provider] - Diet: Carb Consistent or DM2 and Heart Healthy Addtl Attending Provider Instructions: Follow-up with your primary care physician in 1 week upon discharge from rehab facility Seek immediate medical attention if your symptoms reoccur or worsen Please take all medications as instructed on discharge list below. Please call if you have any questions or problems. You can reach a [facility] hospitalist on duty at [facility] 24 hours a day by calling [phone] Pending Studies at Discharge: No Stand-Alone Forms: [facility] Skilled Items Patient informed of condition?: Yes DNR: No Discharge Level of Care: Acute rehab Communicable Disease: No Discharge Prognosis: Stable Lines: None Urinary Catheter: No Medications and DC Order Prescriptions: Continued omega-3 fatty acids 1,000 mg Capsule 2,000 mg PO QAM Qty: 0 RF: 0 omeprazole 20 mg Tablet,Delayed Release (Dr/Ec) 20 mg PO QAM Qty: 0 RF: 0 coenzyme Q10 100 mg Capsule 100 mg PO QAM Qty: 0 RF: 0 atorvastatin 40 mg Tablet 40 mg PO HS Qty: 0 RF: 0 dicyclomine 10 mg Capsule 10 mg PO TIDM Qty: 0 RF: 0 Systane Ultra 0.4-0.3 % Drops 1 drp OPHTHALMIC (EYE) QID PRN (Reason: Dry Eye(S)) RF: 0 carvedilol 12.5 mg tablet 6.25 mg PO BID RF: 0 nystatin 100,000 unit/gram Powder 1 applic TOPICAL QID PRN (Reason: skin rash) RF: 0 magnesium chloride 64 mg magnesium Tablet 128 mg PO QAM RF: 0 aspirin 325 mg Tablet 650 mg PO BID PRN (Reason: Pain) RF: 0 cyanocobalamin (vitamin B-12) [Vitamin B-12] 1,000 mcg Tablet 500 mcg PO DAILY RF: 0 lorazepam 0.5 mg tablet 0.5 mg PO TID PRN (Reason: Anxiety) RF: 0 pregabalin 150 mg capsule 150 mg PO BID RF: 0 repaglinide 0.5 mg tablet 0.5 mg PO TIDM RF: 0 valerian root 100 mg Capsule 100 mg PO DAILY PRN (Reason: Insomnia) RF: 0 docusate sodium 100 mg Capsule 100 mg PO BID PRN (Reason: Constipation) RF: 0 camphor-methyl salicyl-menthol Adhesive Patch,Medicated 1 patch TOPICAL DAILY PRN (Reason: Pain) RF: 0 metformin 750 mg tablet extended release 24 hr 750 mg PO BID RF: 0 furosemide 40 mg tablet 20 mg PO QAM RF: 0 vitamin B complex Tablet 1 tab PO DAILY RF: 0 ferrous sulfate 325 mg (65 mg iron) tablet,delayed release (DR/EC) 650 mg PO DAILY RF: 0 Discharge Orders: Discharge Order (Routine); Ordered 05/25/21 Ordered By: Segundo Gonsales/Other Patient Handouts: A1C, Managing Type 2 Diabetes Admission Data Admit Date/Time: 05/24/21 19:06 Attending Provider: Segundo Hernadez Admit Provider: Segundo Hernadez Primary Care Provider: [facility] Other Providers: [facility] ; Segundo Hernadez
--- NOTE | 2021-05-25 18:17 | Electrocardiogram Report ---
Test Reason : Blood Pressure : / mmHG Vent. Rate : 100 BPM Atrial Rate : 100 BPM P-R Int : 168 ms QRS Dur : 078 ms QT Int : 346 ms P-R-T Axes : 058 -23 130 degrees QTc Int : 446 ms Normal sinus rhythm T wave abnormality, consider lateral ischemia Abnormal ECG When compared with ECG of 04-MAR-2021 06:22, T wave inversion now evident in Lateral leads Confirmed by Renzo Davis ([id number]) on 05/25/2021 6:17:33 PM Referred By: REFERRED SELF Confirmed By:Renzo Davis
--- NOTE | 2021-05-25 18:33 | Electrocardiogram Report ---
Test Reason : Blood Pressure : / mmHG Vent. Rate : 082 BPM Atrial Rate : 082 BPM P-R Int : 154 ms QRS Dur : 072 ms QT Int : 428 ms P-R-T Axes : 052 -22 179 degrees QTc Int : 500 ms Normal sinus rhythm Low voltage QRS Prolonged QT Abnormal ECG When compared with ECG of 24-MAY-2021 15:06, Inverted T waves have replaced nonspecific T wave abnormality in Anterior leads QT has lengthened Confirmed by Renzo Davis ([id number]) on 05/25/2021 6:32:56 PM Referred By: REFERRED SELF Confirmed By:Renzo Davis
== END 2021-05-25 15:39 ==
LOC: ED 14:27 → EDINP 14:27

== ENCOUNTER 2021-06-09 15:15 | Inpatient (IN) ==
--- NOTE | 2021-06-09 15:30 | CT Scan Report ---
HEAD CT NONCONTRAST CT DOSE: 767.83 mGy.cm HISTORY: Stroke Like Symptoms TECHNIQUE: Multiaxial CT images of the head were performed without the use of intravenous contrast. A utomated exposure control was utilized for this study. A dose lowering technique was utilized adheri ng to the principles of ALARA. Comparison: Head CT 05/24/2021. Findings: The paranasal sinuses and mastoid air cells are clear. The calvarium and skull base are int act. There is no mass, hematoma, midline shift, acute infarct. White matter hypodensity is nonspecifi c but suggestive of microvascular ischemic change. The ventricles and sulci demonstrate mild age-rela corrine involutional changes. Basal ganglia and cerebellar calcifications are again noted. There is a pun ctate hypodensity within the right cerebellar hemisphere which is new from the prior study but favors an old lacunar infarct. This is best seen on image 10. Impression: 1. No acute infarct or intracranial hemorrhage. 2. No change in the mild atrophy and microvascular ischemic changes. 3. There is a punctate hypodensity within the right cerebellar hemisphere. This is technically age in determinate but favors an old lacunar infarct. ACT 112: Negative or not required by law. Electronically signed by: Ori Adhikari M.D. 06/09/2021 3:28 PM
--- NOTE | 2021-06-09 15:50 | Emergency Department Note ---
Impression & Plan Weakness, Non-ST elevation RI (NSTEMI), 2019 novel coronavirus-infected pneumonia (NCIP), Hypoxia ED Provider Note Provider: Prasda Lyles MD DATE OF SERVICE: 06/09/2021 CHIEF COMPLAINT: Weakness, fatigue, speech changes HISTORY OF PRESENT ILLNESS: Patient is a 80-year-old female with a past medical history of CAD, diabetes, CKD, and hypertension presenting here via ambulance today with reports of over the past 2 to 3 days she has been coming increasingly weak for today has been quite fatigued and has been a bit drowsy. Also reports her speech is a little bit slurred since she woke early this morning before 930am. No trauma or falls reported. Patient was in the hospital several weeks ago when she had similar symptoms after seeing Tiffanie han. Improved and went to rehab and has been home since before . Again the states over the past several days she seemed a bit more fatigued and has had a bit of a cough. also had a bit of a cough. Patient evidently had a little bit of discomfort in her abdomen last night improved with Pepto-Bismol and no return reported. Patient again denies any pain at this time. EMS called prior to arrival and had some concerns for possible right facial droop and some slurred speech but the patient is outside the timeframe for any TPA given last known well of several days by their report. Did not make her stroke alert as such but patient was taken immediately to CT. REVIEW OF SYSTEMS: A total of 10 review of systems was obtained and negative except as stated above in the HPI. PAST MEDICAL HISTORY: As noted above MEDICATIONS: Reviewed home medication list SOCIAL HISTORY: Lives at home with PHYSICAL EXAM: GENERAL: alert on stretcher. Fatigued in appearance. Head: normocephalic and atraumatic EYES: No injection, discharge or icterus. PERRL NECK: Trachea midline. Supple. ENT: Mucous membranes pink and moist. LUNGS: Airway patent. No retractions. Breath sounds clear with good air entry bilaterally. HEART: Regular rate and rhythm. No chest wall tenderness ABDOMEN: Soft and non-tender, without guarding or rebound. SKIN: Acyanotic, warm, dry, without rashes EXTREMITIES: Without swelling, tenderness or deformity NEUROLOGICAL: No focal deficits moving all extremities. No aphasia. No facial droop or slurred speech. Normal strength and tone in the extremities. Sensation to gross touch normal. Ambulatory. EK bpm normal sinus rhythm without PVC or PAC. Some slight baseline a rtifact. QTC 427. Some lateral T wave changes similar in comparison to previous May 25 of this year. No acute ST segment elevation noted. CONTINUOUS CARDIAC MONITORING: was ordered and showed a heart rate of 90sbpm in normal sinus rhythm Patient's laboratory studies and imaging reviewed. Differential includes Infection, dehydration, metabolic abnormality, hypo/hyperglycemia, electrolyte disturbance, anemia, hypoxia, cardiac sources, intracerebral event, toxicologic, neurologic, as well as other pathologies. IMPRESSION/MEDICAL DECISION MAKING: Reviewed medical record and recent admission. provides significant history at bedside. Patient is not the best recent story in. CT of the head immediately performed without evidence of acute intracranial bleed per radiology No significant focal deficits lower suspicion for large vessel occlusion and given the timeframe and her comorbidities do not believe she would be an interventional candidate even if one was present. Basic labs, Covid test, chest x-ray, and infectious work-up with lactate and cultures were sent. Benign abdomen on exam. Chest x-ray question some pulmonary vascular congestion and a right basilar opacity could be atelectasis versus pneumonia. No significant leukocytosis and stable mild anemia. No significant sodium, calcium, or renal derangement noted today. Procalcitonin 0.22, not severely elevated. Troponin is elevated today which is new. EKG with some lateral T wave changes but no acute STEMI and the patient is without acute chest pain at this time. Patient is on aspirin & given additional here today. Patient is Covid positive likely explaining symptoms. Patient does desaturate on room air to 80s now on 4L with improvement. Will cover with doxycycline at this time for any atypical bacterial component and given dexamethasone with hypoxic Covid. updated at bedside and discussed he is likely also positive and if he has significant issues he should be medically evaluated. Discussed need for hospitalization and hospitalist contacted. DIAGNOSIS: Weakness, NSTEMI, COVID-19 pneumonia, hypoxia DISPOSITION: Hospitalist will evaluate Critical Care I have personally spent 44 minutes of critical care time in the direct management of this patient. This includes bedside care, interpretation of diagnostic studies, and testing, discussion with consultants, patient, and family members, and other required patient management activities. These 44 minutes is in excess of all separately billable procedures. Past Med/Surg History Medical History Anxiety CAD (coronary artery disease) CKD (chronic kidney disease), stage III Dementia Diabetes mellitus, type II Diastolic dysfunction Dry eye syndrome Dyslipidemia GERD (gastroesophageal reflux disease) History of RI (myocardial infarction) Hypertension Kidney stones LVH (left ventricular hypertrophy) Osteoarthritis Peripheral neuropathy Surgical History History of appendectomy History of carpal tunnel release left History of cataract surgery RT/LEFT History of discectomy LUMBAR (TOTAL 2 LUMBAR DISCECTOMY) History of hysterectomy History of tooth extraction Hx of colonoscopy with polypectomy Hx of eye surgery LASER PROCEDURE S/P cystoscopy with ureteral stent placement 05/13/19 [facility] Family History Brother Family history of diabetes mellitus Other Cancer Heart disease Kidney disease Social History Smoking Status: Never smoker Tobacco Type: Cigarettes Second Hand Exposure: No; Hx Alcohol Use: No Hx Substance Use: No Preferred Language: Divehi Communication Ability: Impaired 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: No Beliefs That Will Affect Care: None marital status: Current Living Situation: Spouse current occupational status: retired Feels Safe at Home: Yes Assistive Devices: Walker Allergies Allergies Allergy/AdvReac Type Severity Reaction Status Date / Time oxycodone AdvReac Intermediate OVER Verified 06/09/21 15:46 SEDATED Home Meds Home Medications Medication Instructions Recorded Confirmed omega-3 fatty acids 1,000 mg 2,000 mg PO QAM #0 10/15/13 06/09/21 capsule omeprazole 20 mg tablet,delayed 20 mg PO QAM #0 10/15/13 06/09/21 release coenzyme Q10 100 mg capsule 100 mg PO QAM #0 01/04/16 06/09/21 atorvastatin 40 mg tablet 40 mg PO HS #0 04/09/17 06/09/21 dicyclomine 10 mg capsule 10 mg PO QID #0 04/09/17 06/09/21 peg 400-propylene glycol 0.4 %-0.3 1 drp OPHTHALMIC (EYE) QID PRN 05/12/19 06/09/21 % eye drops (Systane Ultra) vitamin B complex 1 tab PO DAILY 09/21/20 06/09/21 carvedilol 12.5 mg tablet 6.25 mg PO BID 10/10/20 06/09/21 magnesium chloride 128 mg PO QAM 10/10/20 06/09/21 nystatin 100,000 unit/gram topical 1 applic TOPICAL QID PRN 10/10/20 06/09/21 powder ferrous sulfate 325 mg (65 mg 650 mg PO DAILY 03/01/21 06/09/21 iron) tablet,delayed release aspirin 325 mg tablet 650 mg PO BID PRN 05/24/21 06/09/21 camphor-methyl salicylate-menthol 1 patch TOPICAL DAILY PRN 05/24/21 06/09/21 topical patch cyanocobalamin (vitamin B-12) 500 mcg PO DAILY 05/24/21 06/09/21 1,000 mcg tablet (Vitamin B-12) docusate sodium 100 mg capsule 100 mg PO BID PRN 05/24/21 06/09/21 lorazepam 0.5 mg tablet 0.5 mg PO TID PRN 05/24/21 06/09/21 metformin 750 mg tablet,extended 750 mg PO BID 05/24/21 06/09/21 release 24 hr pregabalin 150 mg capsule 150 mg PO BID 05/24/21 06/09/21 repaglinide 0.5 mg tablet 0.5 mg PO TIDM 05/24/21 06/09/21 valerian root 100 mg capsule 100 mg PO DAILY PRN 05/24/21 06/09/21 furosemide 20 mg tablet 20 mg PO DAILY 06/09/21 06/09/21 Results & Data (ED) Vital Signs Vital Signs - 24 hr 06/09/21 15:30 06/09/21 15:52 06/09/21 17:07 Temperature 37.6 C H Temperature Source Oral Pulse Rate 94 H Pulse Rate [Left Finger] 95 H Pulse Rhythm Regular Pulse Rhythm [Left Finger] Regular Pulse Strength Normal Pulse Strength [Left Finger] Normal Respiratory Rate 24 25 H Respiratory Effort / Characteristics Labored Short of Breath Labored Respiratory Depth Normal Normal Respiratory Pattern Regular Regular Blood Pressure 157/76 H Blood Pressure [Left Arm] 121/73 Blood Pressure Mean 103 Blood Pressure Mean [Left Arm] 89 Blood Pressure Position Sitting Blood Pressure Position [Left Arm] Sitting Pulse Oximetry 83 L 96 97 Oxygen Delivery Method Room Air Nasal Cannula Nasal Cannula Oxygen Flow Rate 4 4 Sepsis Recent Fever Within 48 Hours Yes Sepsis New/Unexplained Change in Mental Status No Sepsis Action Taken by Nursing No Action Required Laboratory Data Result diagrams: 06/09/21 15:40 06/09/21 16:49 Lab Results 06/09/21 06/09/21 06/09/21 Range/Units 15:40 15:40 15:40 WBC 9.18 (4.8-10.8) K/uL RBC 3.75 L (4.2-5.4) M/uL Hgb 10.9 L (12.0-16.0) g/dL Hct 35.3 L (37-47) % MCV 94.1 (80-100) fL MCH 29.1 (25-34) pg MCHC 30.9 L (32-36) g/dL RDW Std Deviation 52.7 H (36.4-46.3) fL RDW Coeff of Pia 15.3 H (11.5-14.5) % Plt Count 227 (130-400) K/uL MPV 10.5 H (7.4-10.4) fL Immature Gran % (Auto) 0.7 % Neut % (Auto) 72.7 % Lymph % (Auto) 15.8 % Boundary % (Auto) 10.2 % Eos % (Auto) 0.4 % Baso % (Auto) 0.2 % Neut # (Auto) 6.67 H (1.4-6.5) K/uL Lymph # (Auto) 1.45 (1.2-3.4) K/uL Boundary # (Auto) 0.94 H (0.11-0.59) K/uL Eos # (Auto) 0.04 (0-0.5) K/uL Baso # (Auto) 0.02 (0-0.2) K/uL Immature Gran # (Auto) 0.06 H (0.00-0.02) K/uL PT 10.1 (9.0-12.0) Seconds INR 1.0 (0.9-1.1) APTT 25.1 (21.0-31.0) Seconds PTT Ratio 1.0 D-Dimer (0-500) ug/L FEU Sodium 139 (136-145) mmol/L Potassium (3.5-5.1) mmol/L Chloride 107 (98-107) mmol/L Carbon Dioxide 25 (21-32) mmol/L Anion Gap 7.0 (3-11) BUN 22 H (7-18) mg/dl Creatinine 1.19 (0.6-1.2) mg/dl Est Cr Clr Drug Dosing 42.8 ml/min Est GFR ( Amer) 50.3 ml/min Est GFR (Non-Af Amer) 43.4 ml/min BUN/Creatinine Ratio 18.5 (10-20) Glucose 184 H (70-99) mg/dl Lactate (0.4-2.0) mmol/L Calcium 9.8 (8.5-10.1) mg/dl Magnesium (1.8-2.4) mg/dl Total Bilirubin 0.4 (0.2-1) mg/dl AST (15-37) U/L ALT 31 (12-78) Alkaline Phosphatase 86 (45-117) U/L Troponin I 0.112 H* (0-0.045) ng/ml Total Protein 8.0 (6.4-8.2) gm/dl Albumin 2.4 L (3.4-5.0) gm/dl Globulin 5.6 H (2.5-4.0) gm/dl Albumin/Globulin Ratio 0.4 L (0.9-2) Procalcitonin (0-0.5) ng/ml SARS-CoV-2 (PCR) (Negative) Influenza Type A (PCR) (Neg) Influenza Type B (PCR) (Neg) RSV (RT-PCR) (Neg) 06/09/21 06/09/21 06/09/21 Range/Units 15:40 15:40 15:40 WBC (4.8-10.8) K/uL RBC (4.2-5.4) M/uL Hgb (12.0-16.0) g/dL Hct (37-47) % MCV (80-100) fL MCH (25-34) pg MCHC (32-36) g/dL RDW Std Deviation (36.4-46.3) fL RDW Coeff of Pia (11.5-14.5) % Plt Count (130-400) K/uL MPV (7.4-10.4) fL Immature Gran % (Auto) % Neut % (Auto) % Lymph % (Auto) % Boundary % (Auto) % Eos % (Auto) % Baso % (Auto) % Neut # (Auto) (1.4-6.5) K/uL Lymph # (Auto) (1.2-3.4) K/uL Boundary # (Auto) (0.11-0.59) K/uL Eos # (Auto) (0-0.5) K/uL Baso # (Auto) (0-0.2) K/uL Immature Gran # (Auto) (0.00-0.02) K/uL PT (9.0-12.0) Seconds INR (0.9-1.1) APTT (21.0-31.0) Seconds PTT Ratio D-Dimer 2810 H* (0-500) ug/L FEU Sodium (136-145) mmol/L Potassium (3.5-5.1) mmol/L Chloride (98-107) mmol/L Carbon Dioxide (21-32) mmol/L Anion Gap (3-11) BUN (7-18) mg/dl Creatinine (0.6-1.2) mg/dl Est Cr Clr Drug Dosing ml/min Est GFR ( Amer) ml/min Est GFR (Non-Af Amer) ml/min BUN/Creatinine Ratio (10-20) Glucose (70-99) mg/dl Lactate 1.4 (0.4-2.0) mmol/L Calcium (8.5-10.1) mg/dl Magnesium (1.8-2.4) mg/dl Total Bilirubin (0.2-1) mg/dl AST (15-37) U/L ALT (12-78) Alkaline Phosphatase (45-117) U/L Troponin I (0-0.045) ng/ml Total Protein (6.4-8.2) gm/dl Albumin (3.4-5.0) gm/dl Globulin (2.5-4.0) gm/dl Albumin/Globulin Ratio (0.9-2) Procalcitonin 0.22 (0-0.5) ng/ml SARS-CoV-2 (PCR) (Negative) Influenza Type A (PCR) (Neg) Influenza Type B (PCR) (Neg) RSV (RT-PCR) (Neg) 06/09/21 06/09/21 Range/Units 15:47 16:49 WBC (4.8-10.8) K/uL RBC (4.2-5.4) M/uL Hgb (12.0-16.0) g/dL Hct (37-47) % MCV (80-100) fL MCH (25-34) pg MCHC (32-36) g/dL RDW Std Deviation (36.4-46.3) fL RDW Coeff of Pia (11.5-14.5) % Plt Count (130-400) K/uL MPV (7.4-10.4) fL Immature Gran % (Auto) % Neut % (Auto) % Lymph % (Auto) % Boundary % (Auto) % Eos % (Auto) % Baso % (Auto) % Neut # (Auto) (1.4-6.5) K/uL Lymph # (Auto) (1.2-3.4) K/uL Boundary # (Auto) (0.11-0.59) K/uL Eos # (Auto) (0-0.5) K/uL Baso # (Auto) (0-0.2) K/uL Immature Gran # (Auto) (0.00-0.02) K/uL PT (9.0-12.0) Seconds INR (0.9-1.1) APTT (21.0-31.0) Seconds PTT Ratio D-Dimer (0-500) ug/L FEU Sodium (136-145) mmol/L Potassium 4.4 (3.5-5.1) mmol/L Chloride (98-107) mmol/L Carbon Dioxide (21-32) mmol/L Anion Gap (3-11) BUN (7-18) mg/dl Creatinine (0.6-1.2) mg/dl Est Cr Clr Drug Dosing ml/min Est GFR ( Amer) ml/min Est GFR (Non-Af Amer) ml/min BUN/Creatinine Ratio (10-20) Glucose (70-99) mg/dl Lactate (0.4-2.0) mmol/L Calcium (8.5-10.1) mg/dl Magnesium 1.9 (1.8-2.4) mg/dl Total Bilirubin (0.2-1) mg/dl AST 18 (15-37) U/L ALT (12-78) Alkaline Phosphatase (45-117) U/L Troponin I (0-0.045) ng/ml Total Protein (6.4-8.2) gm/dl Albumin (3.4-5.0) gm/dl Globulin (2.5-4.0) gm/dl Albumin/Globulin Ratio (0.9-2) Procalcitonin (0-0.5) ng/ml SARS-CoV-2 (PCR) POSITIVE A* (Negative) Influenza Type A (PCR) Negative (Neg) Influenza Type B (PCR) Negative (Neg) RSV (RT-PCR) Negative (Neg) Administered Medications Discontinued Medications Aspirin (Aspirin Chew 324 Mg) 324 mg PO NOW STA Stop: 06/09/21 16:53 Last Admin: 06/09/21 17:02 Dose: 324 mg Documented by: [id number] Dexamethasone Sodium Phosphate (DexamethasonePf 10 Mg/Ml Vial) 6 mg IV NOW ONE Stop: 06/09/21 16:53 Last Admin: 06/09/21 17:02 Dose: 6 mg Documented by: [id number] Doxycycline Hyclate (Doxycycline Hyclate 100 Mg Cap) 100 mg PO NOW STA Stop: 06/09/21 16:53 Last Admin: 06/09/21 17:02 Dose: 100 mg Documented by: [id number] Imaging Data Radiologist's Impression: Head CT 06/09/21 15:[address] DOSE: 767.83 mGy.cm HISTORY: Stroke Like Symptoms TECHNIQUE: Multiaxial CT images of the head were performed without the use of intravenous contrast. Automated exposure control was utilized for this study. A dose lowering technique was utilized adhering to the principles of ALARA. Comparison: Head CT 05/24/2021. Findings: The paranasal sinuses and mastoid air cells are clear. The calvarium and skull base are intact. There is no mass, hematoma, midline shift, acute infarct. White matter hypodensity is nonspecific but suggestive of microvascular ischemic change. The ventricles and sulci demonstrate mild age-related involutional changes. Basal ganglia and cerebellar calcifications are again noted. There is a punctate hypodensity within the right cerebellar hemisphere which is new from the prior study but favors an old lacunar infarct. This is best seen on image 10. Impression: 1. No acute infarct or intracranial hemorrhage. 2. No change in the mild atrophy and microvascular ischemic changes. 3. There is a punctate hypodensity within the right cerebellar hemisphere. This is technically age indeterminate but favors an old lacunar infarct. ACT 112: Negative or not required by law. Electronically signed by: Ori Adhikari M.D. 06/09/2021 3:28 PM Chest X-Ray 06/09/21 15:26 XR chest 1V portable CLINICAL HISTORY: weakness COMPARISON STUDY: Chest radiograph May 24, 2021. FINDINGS: Cardiomegaly is unchanged. Rightward deviation of the trachea is unchanged and likely due to a thyroid goiter as shown on cervical spine CT of May 24, 2021. There is no pneumothorax or pleural effusion. There is mild right basilar opacity. Mild interstitial thickening is present. IMPRESSION: 1. Mild right basilar opacity which could reflect atelectasis or an infectious process. Radiographic follow up is recommended. 2. Cardiomegaly. Pulmonary vascular congestion without overt pulmonary edema. ACT 112: Negative or not required by law. Electronically signed by: Luis Alberto Blankenship M.D. 06/09/2021 4:21 PM Discharge Plan Visit Data Chief Complaint: Stroke/CVA Symptoms ED Provider: Prasad Lyles Discharge Problem: Weakness, Non-ST elevation RI (NSTEMI), 2019 novel coronavirus-infected pneumonia (NCIP), Hypoxia Patient Disposition: Being Evaluated by Hospitalist Forms Stand Alone Forms: My [facility] Prescriptions Prescriptions: No Action omega-3 fatty acids 1,000 mg Capsule 2,000 mg PO QAM Qty: 0 RF: 0 omeprazole 20 mg Tablet,Delayed Release (Dr/Ec) 20 mg PO QAM Qty: 0 RF: 0 coenzyme Q10 100 mg Capsule 100 mg PO QAM Qty: 0 RF: 0 atorvastatin 40 mg Tablet 40 mg PO HS Qty: 0 RF: 0 dicyclomine 10 mg Capsule 10 mg PO QID Qty: 0 RF: 0 Systane Ultra 0.4-0.3 % Drops 1 drp OPHTHALMIC (EYE) QID PRN (Reason: Dry Eye(S)) RF: 0 carvedilol 12.5 mg tablet 6.25 mg PO BID RF: 0 nystatin 100,000 unit/gram Powder 1 applic TOPICAL QID PRN (Reason: skin rash) RF: 0 magnesium chloride 64 mg magnesium Tablet 128 mg PO QAM RF: 0 aspirin 325 mg Tablet 650 mg PO BID PRN (Reason: Pain) RF: 0 cyanocobalamin (vitamin B-12) [Vitamin B-12] 1,000 mcg Tablet 500 mcg PO DAILY RF: 0 lorazepam 0.5 mg tablet 0.5 mg PO TID PRN (Reason: Anxiety) RF: 0 pregabalin 150 mg capsule 150 mg PO BID RF: 0 repaglinide 0.5 mg tablet 0.5 mg PO TIDM RF: 0 valerian root 100 mg Capsule 100 mg PO DAILY PRN (Reason: Insomnia) RF: 0 docusate sodium 100 mg Capsule 100 mg PO BID PRN (Reason: Constipation) RF: 0 camphor-methyl salicyl-menthol Adhesive Patch,Medicated 1 patch TOPICAL DAILY PRN (Reason: Pain) RF: 0 metformin 750 mg tablet extended release 24 hr 750 mg PO BID RF: 0 vitamin B complex Tablet 1 tab PO DAILY RF: 0 ferrous sulfate 325 mg (65 mg iron) tablet,delayed release (DR/EC) 650 mg PO DAILY RF: 0 furosemide 20 mg tablet 20 mg PO DAILY RF: 0 Referrals Referrals: [facility] MD [Primary Care Provider] -
[2021-06-09 15:53] LABS: Basophils # (auto) 0.02 K/uL (0-0.2); Basophils % (auto) 0.2 %; Eosinophils # (auto) 0.04 K/uL (0-0.5); Eosinophils % (auto) 0.4 %; Hematocrit (blood only) 35.3 % (37-47); Hemoglobin 10.9 g/dL (12.0-16.0); Immature Granulocytes # (auto) 0.06 K/uL (0.00-0.02); Immature Granulocytes % (auto) 0.7 %; Lymphocytes # (auto) 1.45 K/uL (1.2-3.4); Lymphocytes % (auto) 15.8 %; Mean Corpuscular Hemoglobin 29.1 pg (25-34); Mean Corpuscular Hgb Conc 30.9 g/dL (32-36); Mean Corpuscular Volume 94.1 fL (80-100); Mean Platelet Volume 10.5 fL (7.4-10.4); Monocytes # (auto) 0.94 K/uL (0.11-0.59); Monocytes % (auto) 10.2 %; Neutrophils # (auto) 6.67 K/uL (1.4-6.5); Neutrophils % (auto) 72.7 %; Platelet Count 227 K/uL (130-400); RDW Coefficient of Variation 15.3 % (11.5-14.5); RDW Standard Deviation 52.7 fL (36.4-46.3); Red Blood Count 3.75 M/uL (4.2-5.4); White Blood Count 9.18 K/uL (4.8-10.8)
[2021-06-09 16:03] LABS: Partial Thromboplastin Time 25.1 Seconds (21.0-31.0); Prothrombin Time 10.1 Seconds (9.0-12.0)
--- NOTE | 2021-06-09 16:22 | XRay Report ---
XR chest 1V portable CLINICAL HISTORY: weakness COMPARISON STUDY: Chest radiograph May 24, 2021. FINDINGS: Cardiomegaly is unchanged. Rightward deviation of the trachea is unchanged and likely due t o a thyroid goiter as shown on cervical spine CT of May 24, 2021. There is no pneumothorax or pl eural effusion. There is mild right basilar opacity. Mild interstitial thickening is present. IMPRESSION: 1. Mild right basilar opacity which could reflect atelectasis or an infectious process. Radiographic follow up is recommended. 2. Cardiomegaly. Pulmonary vascular congestion without overt pulmonary edema. ACT 112: Negative or not required by law. Electronically signed by: Luis Alberto Blankenship M.D. 06/09/2021 4:21 PM
[2021-06-09 16:35] LABS: Influenza A virus by PCR Negative (Neg); Influenza B virus by PCR Negative (Neg); RSV by PCR Negative (Neg)
[2021-06-09 16:36] LABS: Albumin Globulin Ratio 0.4 (0.9-2); Albumin Level 2.4 gm/dl (3.4-5.0); BUN Creatinine Ratio 18.5 (10-20); Bilirubin,Total 0.4 mg/dl (0.2-1); Calcium 9.8 mg/dl (8.5-10.1); Creatinine Clr Calc Pharmacy 42.8 ml/min; Est GFR (African American) 50.3 ml/min; Est GFR (Non-African American) 43.4 ml/min; Globulin 5.6 gm/dl (2.5-4.0); Troponin I 0.112 ng/ml (0-0.045)
[2021-06-09] MEDS ORDERED: dexAMETHasone**PF** 10 MG/ML VIAL IV ONE (16:52)
[2021-06-09] MEDS ORDERED: ASPIRIN CHEW 324 MG PO STA (16:52)
[2021-06-09] MEDS ORDERED: DOXYCYCLINE HYCLATE 100 MG CAP PO STA (16:52)
[2021-06-09 17:13] LABS: Potassium 4.4 mmol/L (3.5-5.1)
[2021-06-09 17:18] LABS: Magnesium 1.9 mg/dl (1.8-2.4)
[2021-06-09 18:00] LABS: D Dimer 2810 ug/L FEU (0-500)
--- NOTE | 2021-06-09 18:08 | History & Physical Report ---
Date of Service June 09, 2021 Assessment & Plan (1) Weakness: (2) Non-ST elevation CO (NSTEMI): (3) 2019 novel coronavirus-infected pneumonia (NCIP): (4) Hypoxia: (5) Diabetes mellitus, type II: (6) CAD (coronary artery disease): (7) Dementia: Plan: This is a 80 y/o female with a PMH of HTN, dyslipidemia, DM II, diabetic polyneuropathy, GERD, CKD III, CAD, diastolic dysfunction, LVH, recent left fibular fracture, peripheral neuropathy, recent thrombosis of left EJ, CKD 3, thyroid nodule, dementia, and anxiety who presents to the EDsecondary to weakness, fatigue and slurred speech x2 to 3 days. Weakness COVID-19 pneumonia Hypoxia Admit to telemetry Continue supplemental oxygen IV dexamethasone 6 mg daily Remdesivir per protocol Pulmonary toilet with nebs, incentive spirometer, flutter valve Encourage position change in self proning Elevated d-dimer likely in setting of covid given hypoxia, and recent immobility obtain CTA chest hx of CAD NSTEMI Elevated troponin Patient denies chest pain, EKG unchanged Cycle troponin, likely in setting of acute illness T2DM Last A1c 7.0 on 05/25/2021 Lantus/NovoLog per protocol Hold home medications Consult glycemic pharmacy in setting of dexamethasone use Dementia mood stable reports when pt ill she is slow to respond and can have slurred speech, this is not new CT head negative will not pursue acute cva workup as no neuro focal deficit DVT ppx: SQ Lovenox BID Dispo: tele PCP:Lacy FULL CODE Pt was seen and examined in collaboration with Dr. Mcknight, please see addendum The chart was completed utilizing [employer] Speech voice recognition software. Grammatical errors, random word insertions, pronoun errors, and incomplete s entences are an occasional consequence of this system due to software limitations, ambient noise, and hardware issues. Any formal questions or concerns about the content, text, or information contained within the body of this dictation should be directly addressed to the provider for clarification.. History of Present Illness Chief Complaint: Weakness, fatigue, slurred speech x 2-3 days. Primary Care Provider: [facility] MD This is a 80 y/o female with a PMH of HTN, dyslipidemia, DM II, diabetic polyneuropathy, GERD, CKD III, CAD, diastolic dysfunction, LVH, recent left fibular fracture, peripheral neuropathy, recent thrombosis of left EJ, CKD 3, thyroid nodule, dementia, and anxiety who presents to the EDsecondary to weakness, fatigue and slurred speech x2 to 3 days. Of significance patient recently hospitalized 05/24-05/25 secondary to ambulatory dysfunction and falls at home. brought patient to ED at that time due to unable to take care of her. She underwent MRI brain, CT head and neck which showed no acute findings. She was seen and evaluated by PT and transferred to acute rehab. She presents today via ambulance with reports of becoming increasingly weak over the past few days, fatigue and drowsy. At approximately 9:30 AM after she awoke she reported speech being a little slurred. No recent falls. She is vaccinated for Covid and received her booster 2 weeks ago. Also reported is a new cough. Known sick contacts with who also has similar symptoms. Did well at rehab and was discharged to home the day before [facility]. She did gather at [facility] with 7 family members. Gets around with wheelchair and occasionally with walker. Over past few days she had cough, weak and she is requiring a lot more support than when d/c from rehab. Today she is more drowsy. notes when she gets sick her speech gets sluggish. History provided mostly by . Denies f/c/s, chest pain, sob at rest, n/v/d, change in bowel or bladder habits. ROS slightly unreliable given cognition. Overall diet has been poor over last few days. In ED patient was hypoxic at 83% requiring 4 L of oxygen. Chest x-ray concerning for pneumonia. Lab work notable for H&H 10.9 and 35, dimer 2,810, bun 22, cr 1.19, glucose 184, LA 1.4, trop 0.112, procal 0.22, sars cov2 +. She received IV dexamethasone oral doxycycline and full dose ASA. Allergies Allergy/AdvReac Type Severity Reaction Status Date / Time oxycodone AdvReac Intermediate OVER Verified 06/09/21 15:46 SEDATED Home Medications Medication Instructions Recorded Confirmed Type omega-3 fatty acids 1,000 mg 2,000 mg PO QAM #0 10/15/13 06/09/21 History capsule omeprazole 20 mg tablet,delayed 20 mg PO QAM #0 10/15/13 06/09/21 History release coenzyme Q10 100 mg capsule 100 mg PO QAM #0 01/04/16 06/09/21 History atorvastatin 40 mg tablet 40 mg PO HS #0 04/09/17 06/09/21 History dicyclomine 10 mg capsule 10 mg PO QID #0 04/09/17 06/09/21 History peg 400-propylene glycol 0.4 %-0.3 1 drp OPHTHALMIC (EYE) QID PRN 05/12/19 06/09/21 History % eye drops (Systane Ultra) vitamin B complex 1 tab PO DAILY 09/21/20 06/09/21 History carvedilol 12.5 mg tablet 6.25 mg PO BID 10/10/20 06/09/21 History magnesium chloride 128 mg PO QAM 10/10/20 06/09/21 History nystatin 100,000 unit/gram topical 1 applic TOPICAL QID PRN 10/10/20 06/09/21 History powder ferrous sulfate 325 mg (65 mg 650 mg PO DAILY 03/01/21 06/09/21 History iron) tablet,delayed release aspirin 325 mg tablet 650 mg PO BID PRN 05/24/21 06/09/21 History camphor-methyl salicylate-menthol 1 patch TOPICAL DAILY PRN 05/24/21 06/09/21 History topical patch cyanocobalamin (vitamin B-12) 500 mcg PO DAILY 05/24/21 06/09/21 History 1,000 mcg tablet (Vitamin B-12) docusate sodium 100 mg capsule 100 mg PO BID PRN 05/24/21 06/09/21 History lorazepam 0.5 mg tablet 0.5 mg PO TID PRN 05/24/21 06/09/21 History metformin 750 mg tablet,extended 750 mg PO BID 05/24/21 06/09/21 History release 24 hr pregabalin 150 mg capsule 150 mg PO BID 05/24/21 06/09/21 History repaglinide 0.5 mg tablet 0.5 mg PO TIDM 05/24/21 06/09/21 History valerian root 100 mg capsule 100 mg PO DAILY PRN 05/24/21 06/09/21 History furosemide 20 mg tablet 20 mg PO DAILY 06/09/21 06/09/21 History Past Med/Surg History Medical History Anxiety CAD (coronary artery disease) CKD (chronic kidney disease), stage III Dementia Diabetes mellitus, type II Diastolic dysfunction Dry eye syndrome Dyslipidemia GERD (gastroesophageal reflux disease) History of CO (myocardial infarction) Hypertension Kidney stones LVH (left ventricular hypertrophy) Osteoarthritis Peripheral neuropathy Surgical History History of appendectomy History of carpal tunnel release left History of cataract surgery RT/LEFT History of discectomy LUMBAR (TOTAL 2 LUMBAR DISCECTOMY) History of hysterectomy History of tooth extraction Hx of colonoscopy with polypectomy Hx of eye surgery LASER PROCEDURE S/P cystoscopy with ureteral stent placement 05/13/19 MAC Family History Brother Family history of diabetes mellitus Other Cancer Heart disease Kidney disease Social History Smoking Status: Never smoker Tobacco Type: Cigarettes Second Hand Exposure: No; Hx Alcohol Use: No Hx Substance Use: No Preferred Language: Urdu Communication Ability: Impaired 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 Beliefs That Will Affect Care: None marital status: Current Living Situation: Spouse current occupational status: retired Feels Safe at Home: Yes Assistive Devices: Walker Review of Systems Review of Systems: All systems reviewed & are unremarkable except as noted in HPI & below Physical Exam Physical Exam: Constitutional: WD/WN, vitals as above, NAD, sitting up in bed, drowsy, speaking slowly, appears weak, ill appearing, alert and oriented x 1 Head: Normocephalic, Atraumatic Eyes: PERRL, conjunctivae normal, anicteric sclerae ENMT: external ear and nose normal, oropharynx normal Neck: trachea midline, no thyromegaly normal visual inspection Respiratory: on 4L of oxygen, normal respiratory effort, lungs clear to auscultation, decreased breath sounds, no wheeze, rales, rhonchi. Normal insp/exp effort, no accessory muscle use Cardiovascular: RRR, no murmur, no edema Vessels: no JVD or carotid bruit Chest: normal inspection of chest Abdomen: normal bowel sounds, soft, nontender, no hepatosplenomegaly Musculoskeletal: no cyanosis or clubbing, AROM x4 , Ankle brace on Left Skin: no rashes, warm and dry normal turgor Neurologic: PERRL, EOMI, accommodation nl, no face palsy, no dysarthria CN's II-XI intact bilaterally and moves all extremities Psychiatric: A+Ox1, euthymic affect Lymphatic: no cervical or axillary lymphadenopathy : deferred Results & Data Results & Data ([place]) Vital Signs (Past 12 Hours) Vital Signs Temp Pulse Pulse Resp BP BP Pulse Ox 06/09/21 17:07 95 H 25 H 121/73 97 06/09/21 15:52 96 06/09/21 15:30 37.6 C H 94 H 24 157/76 H 83 L Diagnostic Findings Head CT 06/09/21 15:[address] DOSE: 767.83 mGy.cm HISTORY: Stroke Like Symptoms TECHNIQUE: Multiaxial CT images of the head were performed without the use of intravenous contrast. Automated exposure control was utilized for this study. A dose lowering technique was utilized adhering to the principles of ALARA. Comparison: Head CT 05/24/2021. Findings: The paranasal sinuses and mastoid air cells are clear. The calvarium and skull base are intact. There is no mass, hematoma, midline shift, acute infarct. White matter hypodensity is nonspecific but suggestive of microvascular ischemic change. The ventricles and sulci demonstrate mild age-related involutional changes. Basal ganglia and cerebellar calcifications are again noted. There is a punctate hypodensity within the right cerebellar hemisphere which is new from the prior study but favors an old lacunar infarct. This is best seen on image 10. Impression: 1. No acute infarct or intracranial hemorrhage. 2. No change in the mild atrophy and microvascular ischemic changes. 3. There is a punctate hypodensity within the right cerebellar hemisphere. This is technically age indeterminate but favors an old lacunar infarct. ACT 112: Negative or not required by law. Electronically signed by: Ori Adhikari M.D. 06/09/2021 3:28 PM Chest X-Ray 06/09/21 15:26 XR chest 1V portable CLINICAL HISTORY: weakness COMPARISON STUDY: Chest radiograph May 24, 2021. FINDINGS: Cardiomegaly is unchanged. Rightward deviation of the trachea is unchanged and likely due to a thyroid goiter as shown on cervical spine CT of May 24, 2021. There is no pneumothorax or pleural effusion. There is mild right basilar opacity. Mild interstitial thickening is present. IMPRESSION: 1. Mild right basilar opacity which could reflect atelectasis or an infectious process. Radiographic follow up is recommended. 2. Cardiomegaly. Pulmonary vascular congestion without overt pulmonary edema. ACT 112: Negative or not required by law. Electronically signed by: Luis Alberto Blankenship M.D. 06/09/2021 4:21 PM Medications Administered Medication List Discontinued Medications Aspirin (Aspirin Chew 324 Mg) 324 mg PO NOW STA Stop: 06/09/21 16:53 Last Admin: 06/09/21 17:02 Dose: 324 mg Documented by: [id number] Dexamethasone Sodium Phosphate (DexamethasonePf 10 Mg/Ml Vial) 6 mg IV NOW ONE Stop: 06/09/21 16:53 Last Admin: 06/09/21 17:02 Dose: 6 mg Documented by: [id number] Doxycycline Hyclate (Doxycycline Hyclate 100 Mg Cap) 100 mg PO NOW STA Stop: 06/09/21 16:53 Last Admin: 06/09/21 17:02 Dose: 100 mg Documented by: [id number] ECG Rate (beats per minute): 96 Rhythm: normal sinus Additional Comments: lateral t wave changes similar in comparison to previous ecg 05/25. No acute st changes noted. COVID-19 Results Results COVID-19 Adm Lab Results: RBC 3.75 M/uL (4.2-5.4) L 06/09/21 WBC 9.18 K/uL (4.8-10.8) 06/09/21 Hgb 10.9 g/dL (12.0-16.0) L 06/09/21 Hct 35.3 % (37-47) L 06/09/21 Plt Count 227 K/uL (130-400) 06/09/21 Neutrophils (%) (Auto) 72.7 % 06/09/21 Lymphocytes (%) (Auto) 15.8 % 06/09/21 Monocytes # (Auto) 0.94 K/uL (0.11-0.59) H 06/09/21 Eosinophils # (Auto) 0.04 K/uL (0-0.5) 06/09/21 Immature Granulocyte % (Auto) 0.7 % 06/09/21 Neutrophils # (Auto) 6.67 K/uL (1.4-6.5) H 06/09/21 Lymphocytes # (Auto) 1.45 K/uL (1.2-3.4) 06/09/21 Monocytes # (Auto) 0.94 K/uL (0.11-0.59) H 06/09/21 Eosinophils # (Auto) 0.04 K/uL (0-0.5) 06/09/21 Basophils # (Auto) 0.02 K/uL (0-0.2) 06/09/21 Immature Granulocyte # (Auto) 0.06 K/uL (0.00-0.02) H 06/09/21 Na 139 mmol/L (136-145) 06/09/21 K 4.4 mmol/L (3.5-5.1) 06/09/21 Cl 107 mmol/L (98-107) 06/09/21 CO2 25 mmol/L (21-32) 06/09/21 Anion Gap 7.0 (3-11) 06/09/21 BUN 22 mg/dl (7-18) H 06/09/21 Creatinine 1.19 mg/dl (0.6-1.2) 06/09/21 BUN/Creatinine Ratio 18.5 (10-20) 06/09/21 Glucose Level 184 mg/dl (70-99) H 06/09/21 Ca 9.8 mg/dl (8.5-10.1) 06/09/21 Total Bilirubin 0.4 mg/dl (0.2-1) 06/09/21 AST/SGOT 18 U/L (15-37) 06/09/21 ALT/SGPT 31 (12-78) 06/09/21 Alkaline Phosphatase 86 U/L (45-117) 06/09/21 Total Protein 8.0 gm/dl (6.4-8.2) 06/09/21 Albumin 2.4 gm/dl (3.4-5.0) L 06/09/21 Globulin 5.6 gm/dl (2.5-4.0) H 06/09/21 Albumin/Globulin Ratio 0.4 (0.9-2) L 06/09/21 Troponin I 0.112 ng/ml (0-0.045) H* 06/09/21 Procalcitonin 0.22 ng/ml (0-0.5) 06/09/21 D-Dimer 2810 ug/L FEU (0-500) H* 06/09/21 PTT 25.1 Seconds (21.0-31.0) 06/09/21 INR 1.0 (0.9-1.1) 06/09/21 COVID-19 PCR POSITIVE (Negative) A* 06/09/21 Influenza Virus Type A (PCR) Negative (Neg) 06/09/21 Influenza Virus Type B (PCR) Negative (Neg) 06/09/21 Chest X-Ray 06/09/21 Code Status & VTE Plan Code Status FULL CODE VTE Prophylaxis Plan VTE Prophylaxis will be ordered: Yes Supervising Physician Co-Signing Physician Notes History and physical exam performed by me. History notable for 80-year-old woman with history of hypertension, diabetes, CKD 3, CAD and other medical problems as detailed above who presented with increasing weakness and cough over the past week. History obtained from who was at bedside. He reported that patient speech usually gets small slaughtered whenever she is very weak and sick. Physical exam notable for ill looking elderly woman in no obvious distress, on 4 L/min nasal oxygen, coughing, decreased breath sounds, left ankle in splint, alert and oriented to person and place only (knows she is in the hospital but not the name), was drowsy but arousable. Labs notable for hemoglobin of 10.9, D-dimer of 2810, troponin of 0.112, positive Covid test. Chest x-ray showed mild right basilar opacity CT head did not show any acute abnormality Acute hypoxic respiratory failure due to COVID-19 pneumonia Elevated troponins Continue oxygen supplementation Discussed treatment options with patient and was at bedside. Dexamethasone and remdesivir Monitor LFTs and renal functions per protocol Get CT PE Lovenox subcu for DVT prophylaxis Agree with other plans as detailed by Ramona Rojas PA-C
[2021-06-09] MEDS ORDERED: REMDESIVIR 200 MG in SODIUM CHLORIDE 0.9% 210 ML IV STA (18:36)
[2021-06-09] MEDS ORDERED: OPTIRAY 320 125ml IV ONE (19:43)
--- NOTE | 2021-06-09 19:56 | CT Scan Report ---
CT ANGIOGRAPHY OF THE CHEST, PULMONARY EMBOLUS PROTOCOL CLINICAL HISTORY: Atypical chest pain. Shortness of breath. COMPARISON STUDY: Chest radiograph May 24, 2021 and June 09, 2021. TECHNIQUE: Following IV administration of 120 mL of Optiray, helical axial images of the chest were o btained utilizing the pulmonary embolus protocol. Maximal intensity projections and sagittal and cor onal reformats were viewed on an independent 3D workstation. IV contrast was administered without co mplication. Automated exposure control was utilized for the study. A dose lowering technique was ut ilized adhering to the principles of ALARA. CT DOSE: 464.83 mGycm FINDINGS: No central or lobar pulmonary emboli are identified. Segmental and subsegmental pulmonary arteries are suboptimally assessed due to significant respiratory motion artifact. There is no thorac ic aortic dissection. Moderate cardiomegaly and coronary artery calcification are noted. There is no pericardial effusion. No enlarged axillary, mediastinal or hilar lymph nodes are present. Note is mad e of mild secretions within the airways. No pneumothorax is noted. There is a trace left pleural effu walter. The lungs are suboptimally assessed due to respiratory motion. There is basilar and peripheral predominant subpleural cystic change/honeycombing. This suggests interstitial lung disease. Moderate left lower lobe and mild right lower lobe consolidation is present. No acute fracture or suspicious l esion is identified within visualized portions of the bony thorax. Visualized portions of the upper a bdomen are unremarkable. IMPRESSION: 1. No pulmonary emboli identified although segmental and subsegmental pulmonary arteries suboptimally assessed due to significant respiratory motion artifact. 2. Bilateral lobe airspace opacities, greater on the left. The findings favor pneumonia or aspiration pneumonitis. Atelectasis could appear similar. Follow-up chest CT in 3 months to ensure resolution i s recommended. 3. Basilar and peripheral predominant subpleural cystic change/honeycombing which suggests interstiti al lung disease. 4. Moderate cardiomegaly and coronary artery calcification. ACT 112: Negative or not required by law. Electronically signed by: Luis Alberto Blankenship M.D. 06/09/2021 7:54 PM
[2021-06-09] MEDS ORDERED: GLUCAGON FOR INJ 1 MG VIAL SQ PRN (22:06)
[2021-06-09] MEDS ORDERED: ALUMINUM/MAGNESIUM SUSP 30 ML UDC PO PRN (22:06)
[2021-06-09] MEDS ORDERED: CARBOHYDRATES FOR HYPOGLYCEMIA PO PRN (22:06)
[2021-06-09] MEDS ORDERED: MAGNESIUM HYDROXIDE SUSP 30 ML UDC PO PRN (22:06)
[2021-06-09] MEDS ORDERED: PHARMACY GLYCEMIC MGMT CONSULT PRN (22:06)
[2021-06-09] MEDS ORDERED: ONDANSETRON INJ 2 MG/ML 2 ML VIAL IV PRN (22:06)
[2021-06-09] MEDS ORDERED: POLYETHYLENE (MIRALAX) 17 GM PACK PO PRN (22:06)
[2021-06-09] MEDS ORDERED: GLUCOSE 40% GEL 15 GM TUBE PO PRN (22:06)
[2021-06-09] MEDS ORDERED: GLUCOSE 10 TABS/TUBE PO PRN (22:06)
[2021-06-09] MEDS ORDERED: DOCUSATE SODIUM 100 MG CAP PO PRN (22:06)
[2021-06-09] MEDS ORDERED: DEXTROSE 50% 50 ML SYRINGE IV PRN (22:06)
[2021-06-09] MEDS ORDERED: LORazepam 0.5 MG TAB PO PRN (22:06)
[2021-06-09] MEDS ORDERED: ARTIFICIAL TEARS OP PRN (22:20)
[2021-06-09] MEDS ORDERED: LANTUS PER UNIT CHARGE SQ ONE (22:45)
[2021-06-09] MEDS ORDERED: INSULIN ASPART 100 UNITS/ML 3 ML PEN SC SCH (23:00)
--- NOTE | 2021-06-09 23:05 | Pharmacy Report ---
Pharmacy Glycemic Short Note 2 - Date of Service June 09, 2021 - Glycemic Short BSG Results (Last 24 hours): 06/09/21 15:40 Glucose 184 H OUTPATIENT ANTIDIABETIC REGIMEN: * Metformin 750 mg PO BID * Repaglinide 0.5 mg PO TID * HbA1c: 7% (05/25/21) ASSESSMENT: * MARIBEL is a 80 year old female admitted on 06/09/21 with COVID-19 pneumonia * Well controlled type 2 DM as an outpatient with oral medications only * BSG of 184 mg/dL on admission * Ordered dexamethasone 6 mg IV daily, will order 0.2 unit/kg Lantus tonight since ~6 hours since dexamethasone * Tentatively plan for ~0.3 unit/kg NPH with AM dexamethasone PLAN FOR INPATIENT GLYCEMIC CONTROL: * Hold outpatient oral diabetes medications * Basal insulin * Lantus 20 units SC x 1 tonight * NPH 25 units (~0.3 unit/kg) SC daily with IV dexamethasone * Bolus insulin * NovoLog per scale ACHS or Q6hrs while NPO * Goal Range: Low 110 mg/dL - High 140 mg/dL * Correction Factor: 20 mg/dL/unit * Nutritional / Prandial insulin per carb ratio of 1 unit per 6 grams CHO consumed PLAN FOR DISCHARGE: * HbA1c of 7% is at goal for patient, continue outpatient regimen at discharge provided there are no contraindications
[2021-06-09] MEDS: SODIUM CHLORIDE 0.9% 10ML FLUSH IV SCH (23:28)
[2021-06-09] MEDS: ATORVASTATIN 40 MG TAB PO SCH (23:56)
[2021-06-09] MEDS: PREGABALIN 150 MG CAP PO SCH (23:56)
[2021-06-09] MEDS: carvediloL 6.25 MG TAB PO SCH (23:56)
[2021-06-09] MEDS: DICYCLOMINE HCL 10 MG CAP PO SCH (23:56)
[2021-06-10] MEDS ORDERED: INSULIN ASPART 100 UNITS/ML 3 ML PEN SC SCH ×2 (02:00→06:00)
[2021-06-10] MEDS ORDERED: MICONAZOLE NITRATE POWDER 43 GM EXT PRN (02:23)
[2021-06-10] MEDS: INSULIN ASPART 100 UNITS/ML 3 ML PEN SC SCH ×5 (05:56→21:57)
[2021-06-10] MEDS ORDERED: NON-FORMULARY MEDICATION (Coenzyme Q10 100 mg Capsule) PO SCH (09:00)
[2021-06-10] MEDS ORDERED: INSULIN HUMAN NPH SC SCH (09:00)
[2021-06-10] MEDS: dexAMETHasone 6 MG in SYRINGE 0 ML IV SCH (09:50)
[2021-06-10 11:28] LABS: Basophils # (auto) 0.04 K/uL (0-0.2); Basophils % (auto) 0.7 %; Hematocrit (blood only) 35.7 % (37-47); Hemoglobin 10.6 g/dL (12.0-16.0); Immature Granulocytes # (auto) 0.26 K/uL (0.00-0.02); Immature Granulocytes % (auto) 4.3 %; Lymphocytes # (auto) 1.12 K/uL (1.2-3.4); Lymphocytes % (auto) 18.4 %; Mean Corpuscular Hemoglobin 28.1 pg (25-34); Mean Corpuscular Hgb Conc 29.7 g/dL (32-36); Mean Corpuscular Volume 94.7 fL (80-100); Mean Platelet Volume 10.7 fL (7.4-10.4); Monocytes % (auto) 11.5 %; Neutrophils # (auto) 3.98 K/uL (1.4-6.5); Neutrophils % (auto) 65.1 %; Platelet Count 235 K/uL (130-400); RDW Coefficient of Variation 15.3 % (11.5-14.5); RDW Standard Deviation 53.2 fL (36.4-46.3); Red Blood Count 3.77 M/uL (4.2-5.4)
[2021-06-10] MEDS: FERROUS SULFATE 325 MG TAB PO SCH (11:45)
[2021-06-10] MEDS: OMEGA-3 (PURIFIED FISH OIL) 1 GM CAP PO SCH (11:45)
[2021-06-10] MEDS: carvediloL 6.25 MG TAB PO SCH ×2 (11:45→20:14)
[2021-06-10] MEDS: CYANOCOBALAMIN 500 MCG TABLET (VITAMIN B-12) PO SCH (11:45)
[2021-06-10] MEDS: DICYCLOMINE HCL 10 MG CAP PO SCH ×4 (11:45→20:14)
[2021-06-10] MEDS: PANTOprazole 40 MG TAB PO SCH (11:46)
[2021-06-10] MEDS: MAGNESIUM CHLORIDE 64MG DELAYED REL TAB PO SCH (11:46)
[2021-06-10] MEDS: VITAMIN B COMPLEX TAB PO SCH (11:46)
[2021-06-10] MEDS: PREGABALIN 150 MG CAP PO SCH ×2 (11:48→20:14)
[2021-06-10 11:54] LABS: Albumin Level 2.3 gm/dl (3.4-5.0); BUN Creatinine Ratio 27.5 (10-20); Calcium 10.1 mg/dl (8.5-10.1); Creatinine Clr Calc Pharmacy 48.7 ml/min; Est GFR (African American) 63.6 ml/min; Est GFR (Non-African American) 54.9 ml/min; Potassium 4.5 mmol/L (3.5-5.1)
[2021-06-10 11:56] LABS: Albumin Globulin Ratio 0.4 (0.9-2); Bilirubin,Total 0.3 mg/dl (0.2-1); Globulin 5.7 gm/dl (2.5-4.0)
[2021-06-10] MEDS ORDERED: Nursing to Pharmacy Communication SCH (12:30)
--- NOTE | 2021-06-10 12:57 | Electrocardiogram Report ---
Test Reason : Blood Pressure : / mmHG Vent. Rate : 096 BPM Atrial Rate : 096 BPM P-R Int : 180 ms QRS Dur : 076 ms QT Int : 338 ms P-R-T Axes : 041 -27 123 degrees QTc Int : 427 ms Normal sinus rhythm Low voltage QRS Abnormal ECG When compared with ECG of 25-MAY-2021 11:04, Nonspecific T wave abnormality, improved in Inferior leads QT has shortened Confirmed by Ted Davidson ([id number]) on 06/10/2021 12:56:32 PM Referred By: REFERRED SELF Confirmed By:Ted Davidson
[2021-06-10] MEDS: ACETAMINOPHEN 325 MG TAB PO PRN ×2 (14:04→20:13)
--- NOTE | 2021-06-10 15:21 | Hospitalist Progress Note ---
Date of Service June 10, 2021 Assessment & Plan (1) Weakness: (2) Non-ST elevation SC (NSTEMI): (3) 2019 novel coronavirus-infected pneumonia (NCIP): (4) Hypoxia: (5) Diabetes mellitus, type II: (6) CAD (coronary artery disease): (7) Dementia: Plan: Patient is a 80 yr female with H/O HTN, dyslipidemia, DM II, diabetic polyneuropathy, GERD, CKD III, CAD, diastolic dysfunction, LVH, recent left fibular fracture, peripheral neuropathy, recent thrombosis of left EJ, CKD 3, thyroid nodule, dementia, and anxiety who presents to the EDsecondary to weakness, fatigue and slurred speech x2 to 3 days. COVID-19 pneumonia Hypoxia --CTA:No pulmonary emboli identified although segmental and subsegmental pulmonary arteries suboptimally assessed due to significant respiratory motion artifact. Bilateral lobe airspace opacities, greater on the left. The findings favor pneumonia or aspiration pneumonitis. Atelectasis could appear similar. Follow-up chest CT in 3 months to ensure resolution is recommended. Basilar and peripheral predominant subpleural cystic change/honeycombing which suggests interstitial lung disease. Moderate cardiomegaly and coronary artery calcification. Continue dexamethasone, Remdesivir Day#2 Pulmonary toilet Encourage to prone Lasix PRN Currently on 1 L supplemental oxygen Elevated d-dimer Troponin elevation likely secondary to COVID Troponin trended down CTA showed no PE CAD Patient denies chest pain troponin trended own Continue home meds DM II Last A1c 7.0 on 05/25/2021 Lantus/NovoLog per protocol Hold home medications Consult glycemic pharmacy in setting of dexamethasone use Dementia mood stable Patient is usually slow to respond and can have slurred speech in setting of acute infection as per family Speech at baseline today DVT px: SQ Lovenox Code Status FULL CODE Admission and Anticipated Discharge Date Admission Date: June 09, 2021 Subjective Patient is seen and examined at bedside States having mild headache Also reports cough with minimal expectoration Denies any chest pain, shortness of breath, dizziness, nausea Currently on 1 L supplemental oxygen Review of Systems Review of Systems: All systems reviewed & are unremarkable except as noted in Subjective Physical Exam Physical Exam: Physical Exam: Vitals signs as noted above General Appearance:Morbidly obese, No distress Head: normocephalic, Atraumatic Eyes: normal inspection, EOMI Neck: supple, Trachea midline Respiratory/Chest: Decreased breath sounds, CTA Cardiovascular: S1, S2, No murmur, tachycardia Abdomen/GI:Soft, Non tender, Bowel sounds present Extremities/Musculoskeletal:normal inspection, trace pedal edema, left ankle in brace Neurologic/Psych:AAO, grossly no focal neurological deficits Skin: normal color, warm Results & Data Results & Data ([facility]) Vital Signs (Past 12 Hours) Vital Signs Temp Pulse Pulse Resp BP Pulse Ox 06/10/21 11:33 36.4 C L 92 H 20 143/83 H 96 06/10/21 07:35 36.5 C 98 H 20 130/81 90 06/10/21 07:28 66 Laboratory Results Short CBC 06/09/21 06/10/21 Range/Units 15:40 10:36 WBC 9.18 6.10 (4.8-10.8) K/uL Hgb 10.9 L 10.6 L (12.0-16.0) g/dL Hct 35.3 L 35.7 L (37-47) % Plt Count 227 235 (130-400) K/uL BMP 06/09/21 06/09/21 06/10/21 15:40 16:49 10:36 Sodium 139 141 Potassium 4.4 4.5 Chloride 107 107 Carbon Dioxide 25 28 BUN 22 H 27 H Creatinine 1.19 0.98 Glucose 184 H 126 H Calcium 9.8 10.1 Cardiac Enzymes 06/09/21 06/09/21 06/10/21 Range/Units 15:40 20:53 03:40 Troponin I 0.112 H* 0.054 H* 0.029 (0-0.045) ng/ml Liver Function 06/09/21 06/09/21 06/10/21 Range/Units 15:40 16:49 10:36 Total Bilirubin 0.4 0.3 (0.2-1) mg/dl AST 18 13 L (15-37) U/L ALT 31 28 (12-78) Alkaline Phosphatase 86 82 (45-117) U/L Albumin 2.4 L 2.3 L (3.4-5.0) gm/dl
[2021-06-10] MEDS: ZOLPIDEM TARTRATE 5 MG TAB PO PRN (20:13)
[2021-06-10] MEDS: SODIUM CHLORIDE 0.9% 10ML FLUSH IV SCH (20:13)
[2021-06-10] MEDS: REMDESIVIR 100 MG in SODIUM CHLORIDE 0.9% 230 ML IV SCH (20:13)
[2021-06-10] MEDS: ATORVASTATIN 40 MG TAB PO SCH (20:14)
[2021-06-10] MEDS ORDERED: INSULIN GLARGINE SOLOSTAR 100 UNITS/ML 3 ML PEN SC SCH ×2 (21:00→21:15)
[2021-06-11 07:25] LABS: BUN Creatinine Ratio 31.1 (10-20); C Reactive Protein 11.2 mg/dl (0-0.29); Calcium 10.3 mg/dl (8.5-10.1); Creatinine Clr Calc Pharmacy 49.5 ml/min; Est GFR (African American) 64.4 ml/min; Est GFR (Non-African American) 55.5 ml/min; Potassium 4.3 mmol/L (3.5-5.1)
[2021-06-11] MEDS ORDERED: INSULIN HUMAN NPH SC SCH (09:00)
[2021-06-11] MEDS: INSULIN ASPART 100 UNITS/ML 3 ML PEN SC SCH ×4 (09:34→21:07)
[2021-06-11] MEDS: carvediloL 6.25 MG TAB PO SCH ×2 (09:38→21:06)
[2021-06-11] MEDS: dexAMETHasone 6 MG in SYRINGE 0 ML IV SCH (09:39)
[2021-06-11] MEDS: DICYCLOMINE HCL 10 MG CAP PO SCH ×4 (09:39→21:05)
[2021-06-11] MEDS: CYANOCOBALAMIN 500 MCG TABLET (VITAMIN B-12) PO SCH (09:39)
[2021-06-11] MEDS: PANTOprazole 40 MG TAB PO SCH (09:39)
[2021-06-11] MEDS: MAGNESIUM CHLORIDE 64MG DELAYED REL TAB PO SCH (09:39)
[2021-06-11] MEDS: FERROUS SULFATE 325 MG TAB PO SCH (09:39)
[2021-06-11] MEDS: ENOXAPARIN INJ 40 MG/0.4 ML SYR SQ SCH (09:39)
[2021-06-11] MEDS: VITAMIN B COMPLEX TAB PO SCH (09:39)
[2021-06-11] MEDS: OMEGA-3 (PURIFIED FISH OIL) 1 GM CAP PO SCH (09:39)
[2021-06-11] MEDS: PREGABALIN 150 MG CAP PO SCH ×2 (10:11→21:12)
--- NOTE | 2021-06-11 12:22 | Pharmacy Report ---
Pharmacy Glycemic Short Note 2 - Date of Service June 11, 2021 - Glycemic Short BSG Results (Last 24 hours): 06/10/21 06/10/21 06/11/21 16:17 20:05 06:14 Glucose 115 H POC Glucose 196 H 200 H 06/11/21 06/11/21 07:54 11:44 Glucose POC Glucose 108 H 119 H OUTPATIENT ANTIDIABETIC REGIMEN: * Metformin 750 mg PO BID * Repaglinide 0.5 mg PO TID * HbA1c = 7% (05/25/21) ASSESSMENT: 06/11: * Thuy received a total of 74 units of insulin yesterday (30 units Lantus + 25 units NPH + 19 units bolus) * BSGs were uncontrolled: [phone] mg/dL * Fasting BSG was 108 mg/dL this AM - below goal * Given sharp decline in fasting BSGs, will decrease Lantus this evening * BSGs increasing throughout the day, likely due to steroids * NPH increased today with dexamethasone * Tightened carb ratio slightly 06/09: * PH is a 80 year old female admitted on 06/09/21 with COVID-19 pneumonia * Well controlled type 2 DM as an outpatient with oral medications only * BSG of 184 mg/dL on admission * Ordered dexamethasone 6 mg IV daily, will order 0.2 unit/kg Lantus tonight since ~6 hours since dexamethasone * Tentatively plan for ~0.3 unit/kg NPH with AM dexamethasone PLAN FOR INPATIENT GLYCEMIC CONTROL: * Hold outpatient oral diabetes medications * Basal insulin - decreased Lantus, increased NPH * Lantus 25 units SC HS * NPH 35 units (~0.4 unit/kg) SC daily with IV dexamethasone * Bolus insulin - tightened carb ratio * NovoLog per scale ACHS or Q6hrs while NPO * Goal Range: Low 110 mg/dL - High 140 mg/dL * Correction Factor: 20 mg/dL/unit * Nutritional / Prandial insulin per carb ratio of 1 unit per 5 grams CHO consumed PLAN FOR DISCHARGE: * HbA1c of 7% is at goal for patient, continue outpatient regimen at discharge provided there are no contraindications
[2021-06-11 18:17] LABS: SARS CoV2 RNA(COVID-19) InHosp POSITIVE (Negative)
--- NOTE | 2021-06-11 19:23 | Hospitalist Progress Note ---
Date of Service June 11, 2021 Assessment & Plan (1) Weakness: (2) Non-ST elevation [place] (NSTEMI): (3) 2019 novel coronavirus-infected pneumonia (NCIP): (4) Hypoxia: (5) Diabetes mellitus, type II: (6) CAD (coronary artery disease): (7) Dementia: Plan: Patient is a 80 yr female with H/O HTN, dyslipidemia, DM II, diabetic polyneuropathy, GERD, CKD III, CAD, diastolic dysfunction, LVH, recent left fibular fracture, peripheral neuropathy, recent thrombosis of left EJ, CKD 3, thyroid nodule, dementia, and anxiety who presents to the EDsecondary to weakness, fatigue and slurred speech x2 to 3 days. COVID-19 pneumonia Hypoxia --CTA:No pulmonary emboli identified although segmental and subsegmental pulmonary arteries suboptimally assessed due to significant respiratory motion artifact. Bilateral lobe airspace opacities, greater on the left. The findings favor pneumonia or aspiration pneumonitis. Atelectasis could appear similar. Follow-up chest CT in 3 months to ensure resolution is recommended. Basilar and peripheral predominant subpleural cystic change/honeycombing which suggests interstitial lung disease. Moderate cardiomegaly and coronary artery calcification. Continue dexamethasone, Remdesivir Day#3 Pulmonary toilet Encourage to prone Lasix PRN Currently on 1 L supplemental oxygen Wean off of supplemental oxygen as able May need 2 step prior to discharge Elevated d-dimer Troponin elevation likely secondary to COVID Troponin trended down CTA showed no PE CAD Patient denies chest pain troponin trended own Continue home meds DM II Last A1c 7.0 on 05/25/2021 Lantus/NovoLog per protocol Hold home medications Consult glycemic pharmacy in setting of dexamethasone use Dementia mood stable Patient is usually slow to respond and can have slurred speech in setting of acute infection as per family Speech at baseline today DVT px: SQ Lovenox Code Status FULL CODE Admission and Anticipated Discharge Date Admission Date: June 09, 2021 Subjective Patient is seen and examined at bedside States having rhinitis Also reports cough with expectoration Otherwise no new complaints Saturating well on 1 L supplemental oxygen during my encounter Denies any chest pain, shortness of breath, dizziness, nausea Review of Systems Review of Systems: All systems reviewed & are unremarkable except as noted in Subjective Physical Exam Physical Exam: Physical Exam: Vitals signs as noted above General Appearance:Morbidly obese, No distress Head: normocephalic, Atraumatic Eyes: normal inspection, EOMI Neck: supple, Trachea midline Respiratory/Chest: Decreased breath sounds, basal crackles Cardiovascular: S1, S2, No murmur, tachycardia Abdomen/GI:Soft, Non tender, Bowel sounds present Extremities/Musculoskeletal:normal inspection, trace pedal edema, left ankle in brace Neurologic/Psych:AAO, grossly no focal neurological deficits Skin: normal color, warm Results & Data Results & Data ([facility]) Vital Signs (Past 12 Hours) Vital Signs Temp Pulse Pulse Resp BP Pulse Ox 06/11/21 18:20 95 06/11/21 17:22 36.6 C 86 18 164/74 H 96 06/11/21 16:00 85 06/11/21 11:30 36.8 C 80 18 112/69 95 06/11/21 08:00 70 06/11/21 07:40 36.5 C 87 20 129/73 98 Laboratory Results [facility] 06/11/21 06:14 Sodium 143 Potassium 4.3 Chloride 110 H Carbon Dioxide 30 BUN 30 H Creatinine 0.97 Glucose 115 H Calcium 10.3 H Liver Function 06/11/21 Range/Units 06:14 AST 11 L (15-37) U/L ALT 21 (12-78)
[2021-06-11] MEDS ORDERED: INSULIN GLARGINE SOLOSTAR 100 UNITS/ML 3 ML PEN SC SCH (21:00)
[2021-06-11] MEDS: REMDESIVIR 100 MG in SODIUM CHLORIDE 0.9% 230 ML IV SCH (21:05)
[2021-06-11] MEDS: ATORVASTATIN 40 MG TAB PO SCH (21:05)
[2021-06-11] MEDS: ACETAMINOPHEN 325 MG TAB PO PRN (21:12)
[2021-06-11] MEDS: SODIUM CHLORIDE 0.9% 10ML FLUSH IV SCH (22:51)
[2021-06-12] MEDS: ACETAMINOPHEN 325 MG TAB PO PRN ×3 (03:41→20:22)
[2021-06-12] MEDS: carvediloL 6.25 MG TAB PO SCH ×2 (03:42→20:22)
[2021-06-12 06:14] LABS: Hematocrit (blood only) 36.5 % (37-47); Hemoglobin 11.4 g/dL (12.0-16.0); Mean Corpuscular Hemoglobin 28.9 pg (25-34); Mean Corpuscular Hgb Conc 31.2 g/dL (32-36); Mean Corpuscular Volume 92.4 fL (80-100); Mean Platelet Volume 10.4 fL (7.4-10.4); Platelet Count 238 K/uL (130-400); RDW Coefficient of Variation 15.2 % (11.5-14.5); RDW Standard Deviation 51.6 fL (36.4-46.3); Red Blood Count 3.95 M/uL (4.2-5.4); White Blood Count 8.44 K/uL (4.8-10.8)
[2021-06-12 07:00] LABS: BUN Creatinine Ratio 32.5 (10-20); Calcium 10.4 mg/dl (8.5-10.1); Creatinine Clr Calc Pharmacy 51.7 ml/min; Est GFR (African American) 67.7 ml/min; Est GFR (Non-African American) 58.5 ml/min
[2021-06-12] MEDS ORDERED: amLODIPine BESYLATE 5 MG TAB PO ONE (07:45)
[2021-06-12] MEDS: DICYCLOMINE HCL 10 MG CAP PO SCH ×4 (08:28→20:23)
[2021-06-12] MEDS: FERROUS SULFATE 325 MG TAB PO SCH (08:29)
[2021-06-12] MEDS: CYANOCOBALAMIN 500 MCG TABLET (VITAMIN B-12) PO SCH (08:29)
[2021-06-12] MEDS: PANTOprazole 40 MG TAB PO SCH (08:29)
[2021-06-12] MEDS: dexAMETHasone 6 MG in SYRINGE 0 ML IV SCH (08:30)
[2021-06-12] MEDS: ENOXAPARIN INJ 40 MG/0.4 ML SYR SQ SCH (08:30)
[2021-06-12] MEDS: OMEGA-3 (PURIFIED FISH OIL) 1 GM CAP PO SCH (08:30)
[2021-06-12] MEDS: INSULIN HUMAN NPH SC SCH (08:31)
[2021-06-12] MEDS: INSULIN ASPART 100 UNITS/ML 3 ML PEN SC SCH ×4 (08:33→20:24)
[2021-06-12] MEDS: PREGABALIN 150 MG CAP PO SCH ×2 (08:43→20:28)
[2021-06-12] MEDS: VITAMIN B COMPLEX TAB PO SCH (10:53)
[2021-06-12] MEDS: MAGNESIUM CHLORIDE 64MG DELAYED REL TAB PO SCH (10:53)
[2021-06-12] MEDS ORDERED: FUROSEMIDE INJ 20 MG/2 ML VIAL IV ONE (15:53)
--- NOTE | 2021-06-12 18:06 | Hospitalist Progress Note ---
Date of Service June 12, 2021 Assessment & Plan (1) Weakness: (2) Non-ST elevation [place] (NSTEMI): (3) 2019 novel coronavirus-infected pneumonia (NCIP): (4) Hypoxia: (5) Diabetes mellitus, type II: (6) CAD (coronary artery disease): (7) Dementia: Plan: Patient is a 80 yr female with H/O HTN, dyslipidemia, DM II, diabetic polyneuropathy, GERD, CKD III, CAD, diastolic dysfunction, LVH, recent left fibular fracture, peripheral neuropathy, recent thrombosis of left EJ, CKD 3, thyroid nodule, dementia, and anxiety who presents to the EDsecondary to weakness, fatigue and slurred speech x2 to 3 days. COVID-19 pneumonia Hypoxia --CTA:No pulmonary emboli identified although segmental and subsegmental pulmonary arteries suboptimally assessed due to significant respiratory motion artifact. Bilateral lobe airspace opacities, greater on the left. The findings favor pneumonia or aspiration pneumonitis. Atelectasis could appear similar. Follow-up chest CT in 3 months to ensure resolution is recommended. Basilar and peripheral predominant subpleural cystic change/honeycombing which suggests interstitial lung disease. Moderate cardiomegaly and coronary artery calcification. Continue dexamethasone, Remdesivir Day#4 Pulmonary toilet Encourage to prone Lasix PRN Saturating well on room air Plan to discharge to rehab facility likely tomorrow if arranged Elevated d-dimer Troponin elevation likely secondary to COVID Troponin trended down CTA showed no PE CAD Patient denies chest pain troponin trended own Continue home meds DM II Last A1c 7.0 on 05/25/2021 Lantus/NovoLog per protocol Hold home medications Consult glycemic pharmacy in setting of dexamethasone use Dementia mood stable Patient is usually slow to respond and can have slurred speech in setting of acute infection as per family Speech at baseline DVT px: SQ Lovenox Code Status FULL CODE Admission and Anticipated Discharge Date Admission Date: June 09, 2021 Subjective Patient is seen and examined at bedside Sitting in chair comfortably during my encounter Denies any dyspnea Minimal cough Saturating low 90s on room air Waiting for rehab placement Denies any chest pain, shortness of breath, dizziness, nausea Review of Systems Review of Systems: All systems reviewed & are unremarkable except as noted in Subjective Physical Exam Physical Exam: Physical Exam: Vitals signs as noted above General Appearance:Morbidly obese, No distress Head: normocephalic, Atraumatic Eyes: normal inspection, EOMI Neck: supple, Trachea midline Respiratory/Chest: Decreased breath sounds, basal crackles Cardiovascular: S1, S2, No murmur, tachycardia Abdomen/GI:Soft, Non tender, Bowel sounds present Extremities/Musculoskeletal:normal inspection, trace pedal edema, left ankle in brace Neurologic/Psych:AAO, grossly no focal neurological deficits Skin: normal color, warm Results & Data Results & Data ([facility]) Vital Signs (Past 12 Hours) Vital Signs Temp Pulse Pulse Resp BP BP Pulse Ox 06/12/21 15:30 86 06/12/21 15:20 36.5 C 85 22 145/79 H 93 06/12/21 11:54 36.7 C 83 20 136/77 94 06/12/21 10:51 86 146/91 H 06/12/21 07:58 36.5 C 79 20 175/97 H 93 06/12/21 07:26 82 Laboratory Results Short CBC 06/12/21 Range/Units 06:00 WBC 8.44 (4.8-10.8) K/uL Hgb 11.4 L (12.0-16.0) g/dL Hct 36.5 L (37-47) % Plt Count 238 (130-400) K/uL BMP 06/12/21 06:00 Sodium 138 Potassium 4.0 Chloride 107 Carbon Dioxide 27 BUN 30 H Creatinine 0.93 Glucose 103 H Calcium 10.4 H Liver Function 06/12/21 Range/Units 06:00 AST 16 (15-37) U/L ALT 23 (12-78)
[2021-06-12] MEDS: REMDESIVIR 100 MG in SODIUM CHLORIDE 0.9% 230 ML IV SCH (20:17)
[2021-06-12] MEDS: ATORVASTATIN 40 MG TAB PO SCH (20:23)
[2021-06-12] MEDS: INSULIN GLARGINE SOLOSTAR 100 UNITS/ML 3 ML PEN SC SCH (20:24)
[2021-06-12] MEDS: SODIUM CHLORIDE 0.9% 10ML FLUSH IV SCH (21:56)
[2021-06-13 06:57] LABS: Hematocrit (blood only) 38.7 % (37-47); Hemoglobin 12.2 g/dL (12.0-16.0); Mean Corpuscular Hgb Conc 31.5 g/dL (32-36); Mean Corpuscular Volume 92.1 fL (80-100); Mean Platelet Volume 9.9 fL (7.4-10.4); Platelet Count 247 K/uL (130-400); RDW Coefficient of Variation 15.3 % (11.5-14.5); RDW Standard Deviation 51.4 fL (36.4-46.3)
[2021-06-13] MEDS: VITAMIN B COMPLEX TAB PO SCH (07:36)
[2021-06-13] MEDS: dexAMETHasone 6 MG in SYRINGE 0 ML IV SCH (07:36)
[2021-06-13] MEDS: ACETAMINOPHEN 325 MG TAB PO PRN (07:36)
[2021-06-13] MEDS: CYANOCOBALAMIN 500 MCG TABLET (VITAMIN B-12) PO SCH (07:37)
[2021-06-13] MEDS: PANTOprazole 40 MG TAB PO SCH (07:37)
[2021-06-13] MEDS: MAGNESIUM CHLORIDE 64MG DELAYED REL TAB PO SCH (07:37)
[2021-06-13] MEDS: amLODIPine BESYLATE 5 MG TAB PO SCH (07:37)
[2021-06-13] MEDS: FERROUS SULFATE 325 MG TAB PO SCH (07:37)
[2021-06-13] MEDS: DICYCLOMINE HCL 10 MG CAP PO SCH ×4 (07:37→21:07)
[2021-06-13 07:38] LABS: BUN Creatinine Ratio 28.2 (10-20); Calcium 10.3 mg/dl (8.5-10.1); Creatinine Clr Calc Pharmacy 54.2 ml/min; Est GFR (African American) 71.4 ml/min; Est GFR (Non-African American) 61.6 ml/min; Magnesium 1.8 mg/dl (1.8-2.4); Phosphorus 3.3 mg/dl (2.5-4.9); Potassium 3.9 mmol/L (3.5-5.1)
[2021-06-13] MEDS: OMEGA-3 (PURIFIED FISH OIL) 1 GM CAP PO SCH (07:38)
[2021-06-13] MEDS: carvediloL 6.25 MG TAB PO SCH ×2 (07:38→21:06)
[2021-06-13] MEDS: ENOXAPARIN INJ 40 MG/0.4 ML SYR SQ SCH (07:38)
[2021-06-13] MEDS: INSULIN HUMAN NPH SC SCH (07:39)
[2021-06-13] MEDS: PREGABALIN 150 MG CAP PO SCH ×2 (07:41→21:05)
--- NOTE | 2021-06-13 08:15 | Hospitalist Progress Note ---
Date of Service June 13, 2021 Assessment & Plan (1) Weakness: (2) Non-ST elevation [place] (NSTEMI): (3) 2019 novel coronavirus-infected pneumonia (NCIP): (4) Hypoxia: (5) Diabetes mellitus, type II: (6) CAD (coronary artery disease): (7) Dementia: Plan: 80 yo f F w/ HTN, dyslipidemia, DM II, diabetic polyneuropathy, GERD, CKD III, CAD, diastolic dysfunction, LVH, recent left fibular fracture, peripheral neuropathy, recent thrombosis of left EJ, CKD 3, thyroid nodule, dementia, and anxiety who presentssecondary to weakness, fatigue and slurred speech x2 to 3 days. COVID-19 pneumonia Hypoxia --CTA:No pulmonary emboli identified although segmental and subsegmental pulmonary arteries suboptimally assessed due to significant respiratory motion artifact. Bilateral lobe airspace opacities, greater on the left. The findings favor pneumonia or aspiration pneumonitis. Atelectasis could appear similar. Follow-up chest CT in 3 months to ensure resolution is recommended. Basilar and peripheral predominant subpleural cystic change/honeycombing which suggests interstitial lung disease. Moderate cardiomegaly and coronary artery calcification. Continue dexamethasone, Remdesivir finished Day#5 on 06/13 Pulmonary toilet Encourage to prone Lasix PRN Saturating well on room air Plan to discharge to rehab facility likely tomorrow if arranged Elevated d-dimer Troponin elevation likely secondary to COVID Troponin trended down CTA showed no PE CAD Patient denies chest pain troponin trended own Continue home meds DM II Last A1c 7.0 on 05/25/2021 Lantus/NovoLog per protocol Hold home medications Consult glycemic pharmacy in setting of dexamethasone use Dementia mood stable Patient is usually slow to respond and can have slurred speech in setting of acute infection as per family Speech at baseline DVT px: SQ Lovenox Code Status : FULL CODE Admission and Anticipated Discharge Date Admission Date: June 09, 2021 Subjective Patient is seen in follow up of covid 19 pna Patient is currently laying in bed, in no acute distress, on room air She appears comfortable, denies any complaints Denies any dyspnea Denies any chest pain, shortness of breath, dizziness, nausea Waiting for rehab placement Review of Systems Review of Systems: All systems reviewed & are unremarkable except as noted in Subjective Physical Exam Physical Exam: General Appearance: obese F, No distress Head: normocephalic, Atraumatic Eyes: normal inspection, EOMI Neck: supple Respiratory/Chest: Decreased breath sounds, + mild rhonchi Cardiovascular: S1, S2, No murmur, tachycardia Abdomen/GI:Soft, Non tender, Bowel sounds present Extremities/Musculoskeletal:normal inspection, trace pedal edema, left ankle in brace Neurologic/Psych:AAO, speech fluent, no facial symmetry, moves extremities Skin: normal color, warm Results & Data Results & Data ([facility]) Vital Signs (Past 12 Hours) Vital Signs Temp Pulse Pulse Resp BP Pulse Ox 06/13/21 04:09 36.4 C L 79 18 178/81 H 95 06/13/21 00:16 69 06/12/21 22:59 36.9 C 71 18 119/69 95 Laboratory Results 06/13/21 06/13/21 06/13/21 Range/Units 08:00 06:32 06:32 WBC 9.80 (4.8-10.8) K/uL RBC 4.20 (4.2-5.4) M/uL Hgb 12.2 (12.0-16.0) g/dL Hct 38.7 (37-47) % MCV 92.1 (80-100) fL MCH 29.0 (25-34) pg MCHC 31.5 L (32-36) g/dL RDW Std Deviation 51.4 H (36.4-46.3) fL RDW Coeff of Pia 15.3 H (11.5-14.5) % Plt Count 247 (130-400) K/uL MPV 9.9 (7.4-10.4) fL Sodium 138 (136-145) mmol/L Potassium 3.9 (3.5-5.1) mmol/L Chloride 106 (98-107) mmol/L Carbon Dioxide 29 (21-32) mmol/L Anion Gap 3.0 (3-11) BUN 25 H (7-18) mg/dl Creatinine 0.89 (0.6-1.2) mg/dl Est Cr Clr Drug Dosing 54.2 ml/min Est GFR ( Amer) 71.4 ml/min Est GFR (Non-Af Amer) 61.6 ml/min BUN/Creatinine Ratio 28.2 H (10-20) Glucose 126 H (70-99) mg/dl POC Glucose 154 H (70-99) mg/dl Calcium 10.3 H (8.5-10.1) mg/dl Phosphorus 3.3 (2.5-4.9) mg/dl Magnesium 1.8 (1.8-2.4) mg/dl AST 18 (15-37) U/L ALT 26 (12-78) 06/12/21 06/12/21 06/12/21 Range/Units 20:08 16:36 11:49 WBC (4.8-10.8) K/uL RBC (4.2-5.4) M/uL Hgb (12.0-16.0) g/dL Hct (37-47) % MCV (80-100) fL MCH (25-34) pg MCHC (32-36) g/dL RDW Std Deviation (36.4-46.3) fL RDW Coeff of Pia (11.5-14.5) % Plt Count (130-400) K/uL MPV (7.4-10.4) fL Sodium (136-145) mmol/L Potassium (3.5-5.1) mmol/L Chloride (98-107) mmol/L Carbon Dioxide (21-32) mmol/L Anion Gap (3-11) BUN (7-18) mg/dl Creatinine (0.6-1.2) mg/dl Est Cr Clr Drug Dosing ml/min Est GFR ( Amer) ml/min Est GFR (Non-Af Amer) ml/min BUN/Creatinine Ratio (10-20) Glucose (70-99) mg/dl POC Glucose 202 H 115 H 181 H (70-99) mg/dl Calcium (8.5-10.1) mg/dl Phosphorus (2.5-4.9) mg/dl Magnesium (1.8-2.4) mg/dl AST (15-37) U/L ALT (12-78) Medications Administered Current Inpatient Medications Acetaminophen (Acetaminophen 325 Mg Tab) 650 mg PO Q4H PRN PRN Reason: Pain or Fever Stop: 07/09/21 22:05 Last Admin: 06/12/21 20:22 Dose: 650 mg Documented by: Al Hydrox/Mg Hydrox/Simethicone (Aluminum/Magnesium Susp 30 Ml Udc) 15 ml PO Q4H PRN PRN Reason: Dyspepsia Stop: 07/09/21 22:05 Amlodipine Besylate (Amlodipine Besylate 5 Mg Tab) 5 mg PO QAM [facility] Stop: 07/13/21 08:59 Artificial Tears (Artificial Tears) 1 drops OP QID PRN PRN Reason: Dry Eye(S) Stop: 07/09/21 22:19 Atorvastatin Calcium (Atorvastatin 40 Mg Tab) 40 mg PO HS [facility] Stop: 07/09/21 22:59 Last Admin: 06/12/21 20:23 Dose: 40 mg Documented by: Carvedilol (Carvedilol 6.25 Mg Tab) 6.25 mg PO BID [facility] Stop: 07/12/21 03:39 Last Admin: 06/12/21 20:22 Dose: 6.25 mg Documented by: Cyanocobalamin (Cyanocobalamin 500 Mcg Tablet (Vitamin B-12)) 500 mcg PO DAILY [facility] Stop: 07/10/21 08:59 Last Admin: 06/12/21 08:29 Dose: 500 mcg Documented by: Dextrose (Dextrose 50% 50 Ml Syringe) 25 - 50 ml IV UD PRN; Protocol PRN Reason: Hypoglycemia Protocol Stop: 07/09/21 22:05 Dicyclomine HCl (Dicyclomine Hcl 10 Mg Cap) 10 mg PO QID [facility] Stop: 07/09/21 22:59 Last Admin: 06/12/21 20:23 Dose: 10 mg Documented by: Docusate Sodium (Docusate Sodium 100 Mg Cap) 100 mg PO BID PRN PRN Reason: Constipation Stop: 07/09/21 22:05 Enoxaparin Sodium (Enoxaparin Inj 40 Mg/0.4 Ml Syr) 40 mg SQ QAM [facility] Stop: 07/11/21 08:59 Last Admin: 06/12/21 08:30 Dose: 40 mg Documented by: Ferrous Sulfate (Ferrous Sulfate 325 Mg Tab) 650 mg PO DAILY [facility] Stop: 07/10/21 08:59 Last Admin: 06/12/21 08:29 Dose: 650 mg Documented by: Fish Oil ([place]-3 (Purified Fish Oil) 1 Gm Cap) 2 gm PO QAM [facility] Stop: 07/10/21 08:59 Last Admin: 06/12/21 08:30 Dose: 2 gm Documented by: Glucagon (Glucagon For Inj 1 Mg Vial) 1 mg SQ UD PRN; Protocol PRN Reason: Hypoglycemia Protocol Stop: 07/09/21 22:05 Glucose (Glucose 10 Tabs/Tube) 4 - 8 tabs PO UD PRN; Protocol PRN Reason: Hypoglycemia Protocol Stop: 07/09/21 22:05 Glucose (Glucose 40% Gel 15 Gm Tube) 15 - 30 gm PO UD PRN; Protocol PRN Reason: Hypoglycemia Protocol Stop: 07/09/21 22:05 Remdesivir 100 mg/ Sodium (Chloride) 250 mls @ 250 mls/hr IV Q24H [facility]; Protocol Stop: 06/13/21 20:59 Last Infusion: 06/12/21 21:56 Dose: Infused Documented by: Dexamethasone 6 mg/ Syringe 1.5 mls @ 1 mls/min IV DAILY [facility] Stop: 06/20/21 08:59 Last Admin: 06/12/21 08:30 Dose: 1 mls/min Documented by: Insulin Aspart (Insulin Aspart 100 Units/Ml 3 Ml Pen) 0 units SC ACHS [facility]; Protocol Stop: 07/10/21 12:29 Last Admin: 06/12/21 20:24 Dose: 4 units Documented by: Insulin Glargine (Insulin Glargine Solostar 100 Units/Ml 3 Ml Pen) 20 units SC HS [facility]; Protocol Stop: 07/10/21 21:14 Last Admin: 06/12/21 20:24 Dose: 20 units Documented by: Insulin Human NPH (Insulin Human Nph) 40 units SC DAILY [facility]; Protocol Stop: 07/11/21 08:59 Last Admin: 06/12/21 08:31 Dose: 40 units Documented by: Lorazepam (Lorazepam 0.5 Mg Tab) 0.5 mg PO TID PRN PRN Reason: Anxiety Stop: 07/09/21 22:05 Magnesium Chloride (Magnesium Chloride 64mg Delayed Rel Tab) 128 mg PO QAM [facility] Stop: 07/10/21 08:59 Last Admin: 06/12/21 10:53 Dose: 128 mg Documented by: Magnesium Hydroxide (Magnesium Hydroxide Susp 30 Ml Udc) 30 ml PO Q12H PRN PRN Reason: Constipation Stop: 07/09/21 22:05 Miconazole Nitrate (Miconazole Nitrate Powder 43 Gm) 1 appln EXT PRN PRN PRN Reason: Affected Skin Folds Stop: 07/10/21 02:22 Last Admin: 06/10/21 05:56 Dose: 1 appln Documented by: Miscellaneous (Carbohydrates For Hypoglycemia ) 15 - 30 gm PO UD PRN PRN Reason: Hypoglycemia Protocol Stop: 07/09/21 22:05 Miscellaneous Information (Pharmacy Glycemic Mgmt Consult) 1 ea N/A UD PRN; Protocol PRN Reason: Consult Stop: 07/09/21 22:05 Ondansetron HCl (Ondansetron Inj 2 Mg/Ml 2 Ml Vial) 4 mg IV Q6H PRN PRN Reason: Nausea Stop: 07/09/21 22:05 Pantoprazole Sodium (Pantoprazole 40 Mg Tab) 40 mg PO QAM [facility]; Protocol Stop: 07/10/21 08:59 Last Admin: 06/12/21 08:29 Dose: 40 mg Documented by: Polyethylene Glycol (Polyethylene (Miralax) 17 Gm Pack) 17 gm PO DAILY PRN PRN Reason: Constipation Stop: 07/09/21 22:05 Pregabalin (Pregabalin 150 Mg Cap) 150 mg PO BID [facility] Stop: 07/09/21 22:59 Last Admin: 06/12/21 20:28 Dose: 150 mg Documented by: Sodium Chloride (Sodium Chloride 0.9% 10ml Flush) 30 ml IV DAILY@2100 [facility] Stop: 06/13/21 21:01 Last Admin: 06/12/21 21:56 Dose: 30 ml Documented by: Vitamin B Complex (Vitamin B Complex Tab) 1 tab PO DAILY [facility] Stop: 07/10/21 08:59 Last Admin: 06/12/21 10:53 Dose: 1 tab Documented by: Zolpidem Tartrate (Zolpidem Tartrate 5 Mg Tab) 5 mg PO HS PRN PRN Reason: Sleep Stop: 07/09/21 22:05 Last Admin: 06/10/21 20:13 Dose: 5 mg Documented by:
[2021-06-13] MEDS: INSULIN ASPART 100 UNITS/ML 3 ML PEN SC SCH ×4 (08:46→21:07)
--- NOTE | 2021-06-13 12:44 | Pharmacy Report ---
Pharmacy Glycemic Short Note 2 - Date of Service June 13, 2021 - Glycemic Short BSG Results (Last 24 hours): 06/12/21 06/12/21 06/13/21 16:36 20:08 06:32 Glucose 126 H POC Glucose 115 H 202 H 06/13/21 06/13/21 08:00 11:42 Glucose POC Glucose 154 H 154 H OUTPATIENT ANTIDIABETIC REGIMEN: * Metformin 750 mg PO BID * Repaglinide 0.5 mg PO TID * HbA1c = 7% (05/25/21) ASSESSMENT: 06/13: * Patient received a total of 75 units of insulin yesterday (20 units Lantus + 40 units NPH + 15 units Novolog) * BSGs were acceptable: [phone] mg/dL * Fasting BSg was slightly elevated at 154 mg/dL this AM * No changes in insulin regimen today * Continues on IV dexamethasone and Remdesivir for COVID-19 06/11: * Thuy received a total of 74 units of insulin yesterday (30 units Lantus + 25 units NPH + 19 units bolus) * BSGs were uncontrolled: [phone] mg/dL * Fasting BSG was 108 mg/dL this AM - below goal * Given sharp decline in fasting BSGs, will decrease Lantus this evening * BSGs increasing throughout the day, likely due to steroids * NPH increased today with dexamethasone * Tightened carb ratio slightly PLAN FOR INPATIENT GLYCEMIC CONTROL: * Hold outpatient oral diabetes medications * Basal insulin * Lantus 20 units SC HS * NPH 40 units (0.45 unit/kg) SC daily with IV dexamethasone * Bolus insulin * NovoLog per scale ACHS or Q6hrs while NPO * Goal Range: Low 110 mg/dL - High 140 mg/dL * Correction Factor: 20 mg/dL/unit * Nutritional / Prandial insulin per carb ratio of 1 unit per 5 grams CHO consumed PLAN FOR DISCHARGE: * HbA1c of 7% is at goal for patient, continue outpatient regimen at discharge provided there are no contraindications.
[2021-06-13] MEDS: REMDESIVIR 100 MG in SODIUM CHLORIDE 0.9% 230 ML IV SCH (19:44)
[2021-06-13] MEDS: ATORVASTATIN 40 MG TAB PO SCH (21:06)
[2021-06-13] MEDS: ZOLPIDEM TARTRATE 5 MG TAB PO PRN (21:06)
[2021-06-13] MEDS: SODIUM CHLORIDE 0.9% 10ML FLUSH IV SCH (21:06)
[2021-06-13] MEDS: INSULIN GLARGINE SOLOSTAR 100 UNITS/ML 3 ML PEN SC SCH (21:08)
[2021-06-14 07:01] LABS: Creatinine Clr Calc Pharmacy 48.6 ml/min; Est GFR (African American) 62.8 ml/min; Est GFR (Non-African American) 54.2 ml/min
--- NOTE | 2021-06-14 07:26 | Hospitalist Progress Note ---
Date of Service June 14, 2021 Assessment & Plan (1) Weakness: (2) Non-ST elevation MT (NSTEMI): (3) 2019 novel coronavirus-infected pneumonia (NCIP): (4) Hypoxia: (5) Diabetes mellitus, type II: (6) CAD (coronary artery disease): (7) Dementia: Plan: 80 yo f F w/ HTN, dyslipidemia, DM II, diabetic polyneuropathy, GERD, CKD III, CAD, diastolic dysfunction, LVH, recent left fibular fracture, peripheral neuropathy, recent thrombosis of left EJ, CKD 3, thyroid nodule, dementia, and anxiety who presentssecondary to weakness, fatigue and slurred speech x2 to 3 days. COVID-19 pneumonia Hypoxia --CTA:No pulmonary emboli identified although segmental and subsegmental pulmonary arteries suboptimally assessed due to significant respiratory motion artifact. Bilateral lobe airspace opacities, greater on the left. The findings favor pneumonia or aspiration pneumonitis. Atelectasis could appear similar. Follow-up chest CT in 3 months to ensure resolution is recommended. Basilar and peripheral predominant subpleural cystic change/honeycombing which suggests interstitial lung disease. Moderate cardiomegaly and coronary artery calcification. Continue dexamethasone, Remdesivir finished Day#5 on 06/13 Pulmonary toilet Encourage to prone Lasix PRN Saturating well on room air Covid 19 test negative on 06/14 Plan to discharge to rehab facility on Friday Elevated d-dimer Troponin elevation likely secondary to COVID Troponin trended down CTA showed no PE CAD Patient denies chest pain troponin trended own Continue home meds DM II Last A1c 7.0 on 05/25/2021 Lantus/NovoLog per protocol Hold home medications Consult glycemic pharmacy in setting of dexamethasone use Dementia mood stable Patient is usually slow to respond and can have slurred speech in setting of acute infection as per family Speech at baseline DVT px: SQ Lovenox Code Status : FULL CODE Admission and Anticipated Discharge Date Admission Date: June 09, 2021 Subjective Patient is seen in follow up of covid 19 pna Patient is currently laying in bed, in no acute distress, on room air She appears comfortable, denies any complaints Denies any dyspnea Denies any chest pain, shortness of breath, dizziness, nausea Waiting for rehab placement Covid 19 test negative today (06/14), plan to DC to [facility] on Friday Review of Systems Review of Systems: All systems reviewed & are unremarkable except as noted in Subjective Physical Exam Physical Exam: General Appearance: obese F, No distress Head: normocephalic, Atraumatic Eyes: normal inspection, EOMI Neck: supple Respiratory/Chest: Decreased breath sounds, + mild rhonchi Cardiovascular: S1, S2, No murmur, tachycardia Abdomen/GI:Soft, Non tender, Bowel sounds present Extremities/Musculoskeletal:normal inspection, trace pedal edema, left ankle in brace Neurologic/Psych:AAO, speech fluent, no facial symmetry, moves extremities Skin: normal color, warm Results & Data Results & Data ([facility]) Vital Signs (Past 12 Hours) Vital Signs Temp Pulse Pulse Resp BP Pulse Ox 06/14/21 04:22 36.6 C 81 18 154/69 H 94 06/13/21 23:33 83 06/13/21 23:19 36.7 C 84 18 115/67 94 06/13/21 19:56 36.9 C 93 H 18 145/77 H 94 Laboratory Results 06/14/21 06/13/21 06/13/21 Range/Units 06:01 20:18 16:38 Sodium (136-145) mmol/L Potassium (3.5-5.1) mmol/L Chloride (98-107) mmol/L Carbon Dioxide (21-32) mmol/L Anion Gap (3-11) BUN (7-18) mg/dl Creatinine 0.99 (0.6-1.2) mg/dl Est Cr Clr Drug Dosing 48.6 ml/min Est GFR ( Amer) 62.8 ml/min Est GFR (Non-Af Amer) 54.2 ml/min BUN/Creatinine Ratio (10-20) Glucose (70-99) mg/dl POC Glucose 201 H 160 H (70-99) mg/dl Calcium (8.5-10.1) mg/dl Phosphorus (2.5-4.9) mg/dl Magnesium (1.8-2.4) mg/dl AST 18 (15-37) U/L ALT 26 (12-78) 06/13/21 06/13/21 06/13/21 Range/Units 11:42 08:00 06:32 Sodium 138 (136-145) mmol/L Potassium 3.9 (3.5-5.1) mmol/L Chloride 106 (98-107) mmol/L Carbon Dioxide 29 (21-32) mmol/L Anion Gap 3.0 (3-11) BUN 25 H (7-18) mg/dl Creatinine 0.89 (0.6-1.2) mg/dl Est Cr Clr Drug Dosing 54.2 ml/min Est GFR ( Amer) 71.4 ml/min Est GFR (Non-Af Amer) 61.6 ml/min BUN/Creatinine Ratio 28.2 H (10-20) Glucose 126 H (70-99) mg/dl POC Glucose 154 H 154 H (70-99) mg/dl Calcium 10.3 H (8.5-10.1) mg/dl Phosphorus 3.3 (2.5-4.9) mg/dl Magnesium 1.8 (1.8-2.4) mg/dl AST 18 (15-37) U/L ALT 26 (12-78) Medications Administered Current Inpatient Medications Acetaminophen (Acetaminophen 325 Mg Tab) 650 mg PO Q4H PRN PRN Reason: Pain or Fever Stop: 07/09/21 22:05 Last Admin: 06/13/21 07:36 Dose: 650 mg Documented by: Al Hydrox/Mg Hydrox/Simethicone (Aluminum/Magnesium Susp 30 Ml Udc) 15 ml PO Q4H PRN PRN Reason: Dyspepsia Stop: 07/09/21 22:05 Amlodipine Besylate (Amlodipine Besylate 5 Mg Tab) 5 mg PO QAM [facility] Stop: 07/13/21 08:59 Last Admin: 06/13/21 07:37 Dose: 5 mg Documented by: Artificial Tears (Artificial Tears) 1 drops OP QID PRN PRN Reason: Dry Eye(S) Stop: 07/09/21 22:19 Atorvastatin Calcium (Atorvastatin 40 Mg Tab) 40 mg PO HS [facility] Stop: 07/09/21 22:59 Last Admin: 06/13/21 21:06 Dose: 40 mg Documented by: Carvedilol (Carvedilol 6.25 Mg Tab) 6.25 mg PO BID [facility] Stop: 07/12/21 03:39 Last Admin: 06/13/21 21:06 Dose: 6.25 mg Documented by: Cyanocobalamin (Cyanocobalamin 500 Mcg Tablet (Vitamin B-12)) 500 mcg PO DAILY [facility] Stop: 07/10/21 08:59 Last Admin: 06/13/21 07:37 Dose: 500 mcg Documented by: Dextrose (Dextrose 50% 50 Ml Syringe) 25 - 50 ml IV UD PRN; Protocol PRN Reason: Hypoglycemia Protocol Stop: 07/09/21 22:05 Dicyclomine HCl (Dicyclomine Hcl 10 Mg Cap) 10 mg PO QID [facility] Stop: 07/09/21 22:59 Last Admin: 06/13/21 21:07 Dose: 10 mg Documented by: Docusate Sodium (Docusate Sodium 100 Mg Cap) 100 mg PO BID PRN PRN Reason: Constipation Stop: 07/09/21 22:05 Enoxaparin Sodium (Enoxaparin Inj 40 Mg/0.4 Ml Syr) 40 mg SQ QAM [facility] Stop: 07/11/21 08:59 Last Admin: 06/13/21 07:38 Dose: 40 mg Documented by: Ferrous Sulfate (Ferrous Sulfate 325 Mg Tab) 650 mg PO DAILY [facility] Stop: 07/10/21 08:59 Last Admin: 06/13/21 07:37 Dose: 650 mg Documented by: Fish Oil ([place]-3 (Purified Fish Oil) 1 Gm Cap) 2 gm PO QAM [facility] Stop: 07/10/21 08:59 Last Admin: 06/13/21 07:38 Dose: 2 gm Documented by: Glucagon (Glucagon For Inj 1 Mg Vial) 1 mg SQ UD PRN; Protocol PRN Reason: Hypoglycemia Protocol Stop: 07/09/21 22:05 Glucose (Glucose 10 Tabs/Tube) 4 - 8 tabs PO UD PRN; Protocol PRN Reason: Hypoglycemia Protocol Stop: 07/09/21 22:05 Glucose (Glucose 40% Gel 15 Gm Tube) 15 - 30 gm PO UD PRN; Protocol PRN Reason: Hypoglycemia Protocol Stop: 07/09/21 22:05 Dexamethasone 6 mg/ Syringe 1.5 mls @ 1 mls/min IV DAILY [facility] Stop: 06/20/21 08:59 Last Admin: 06/13/21 07:36 Dose: 1 mls/min Documented by: Insulin Aspart (Insulin Aspart 100 Units/Ml 3 Ml Pen) 0 units SC ACHS [facility]; Protocol Stop: 07/10/21 12:29 Last Admin: 06/13/21 21:07 Dose: 4 units Documented by: Insulin Glargine (Insulin Glargine Solostar 100 Units/Ml 3 Ml Pen) 20 units SC HS [facility]; Protocol Stop: 07/10/21 21:14 Last Admin: 06/13/21 21:08 Dose: 20 units Documented by: Insulin Human NPH (Insulin Human Nph) 40 units SC DAILY [facility]; Protocol Stop: 07/11/21 08:59 Last Admin: 06/13/21 07:39 Dose: 40 units Documented by: Lorazepam (Lorazepam 0.5 Mg Tab) 0.5 mg PO TID PRN PRN Reason: Anxiety Stop: 07/09/21 22:05 Magnesium Chloride (Magnesium Chloride 64mg Delayed Rel Tab) 128 mg PO QAM [facility] Stop: 07/10/21 08:59 Last Admin: 06/13/21 07:37 Dose: 128 mg Documented by: Magnesium Hydroxide (Magnesium Hydroxide Susp 30 Ml Udc) 30 ml PO Q12H PRN PRN Reason: Constipation Stop: 07/09/21 22:05 Miconazole Nitrate (Miconazole Nitrate Powder 43 Gm) 1 appln EXT PRN PRN PRN Reason: Affected Skin Folds Stop: 07/10/21 02:22 Last Admin: 06/10/21 05:56 Dose: 1 appln Documented by: Miscellaneous (Carbohydrates For Hypoglycemia ) 15 - 30 gm PO UD PRN PRN Reason: Hypoglycemia Protocol Stop: 07/09/21 22:05 Miscellaneous Information (Pharmacy Glycemic Mgmt Consult) 1 ea N/A UD PRN; Protocol PRN Reason: Consult Stop: 07/09/21 22:05 Ondansetron HCl (Ondansetron Inj 2 Mg/Ml 2 Ml Vial) 4 mg IV Q6H PRN PRN Reason: Nausea Stop: 07/09/21 22:05 Pantoprazole Sodium (Pantoprazole 40 Mg Tab) 40 mg PO QAM [facility]; Protocol Stop: 07/10/21 08:59 Last Admin: 06/13/21 07:37 Dose: 40 mg Documented by: Polyethylene Glycol (Polyethylene (Miralax) 17 Gm Pack) 17 gm PO DAILY PRN PRN Reason: Constipation Stop: 07/09/21 22:05 Pregabalin (Pregabalin 150 Mg Cap) 150 mg PO BID [facility] Stop: 07/09/21 22:59 Last Admin: 06/13/21 21:05 Dose: 150 mg Documented by: Vitamin B Complex (Vitamin B Complex Tab) 1 tab PO DAILY [facility] Stop: 07/10/21 08:59 Last Admin: 06/13/21 07:36 Dose: 1 tab Documented by: Zolpidem Tartrate (Zolpidem Tartrate 5 Mg Tab) 5 mg PO HS PRN PRN Reason: Sleep Stop: 07/09/21 22:05 Last Admin: 06/13/21 21:06 Dose: 5 mg Documented by:
[2021-06-14] MEDS: dexAMETHasone 6 MG in SYRINGE 0 ML IV SCH (08:36)
[2021-06-14] MEDS: VITAMIN B COMPLEX TAB PO SCH (08:37)
[2021-06-14] MEDS: CYANOCOBALAMIN 500 MCG TABLET (VITAMIN B-12) PO SCH (08:37)
[2021-06-14] MEDS: carvediloL 6.25 MG TAB PO SCH ×2 (08:37→19:56)
[2021-06-14] MEDS: amLODIPine BESYLATE 5 MG TAB PO SCH (08:37)
[2021-06-14] MEDS: DICYCLOMINE HCL 10 MG CAP PO SCH ×4 (08:37→19:56)
[2021-06-14] MEDS: PANTOprazole 40 MG TAB PO SCH (08:37)
[2021-06-14] MEDS: ENOXAPARIN INJ 40 MG/0.4 ML SYR SQ SCH (08:38)
[2021-06-14] MEDS: OMEGA-3 (PURIFIED FISH OIL) 1 GM CAP PO SCH (08:38)
[2021-06-14] MEDS: FERROUS SULFATE 325 MG TAB PO SCH (08:38)
[2021-06-14] MEDS: MAGNESIUM CHLORIDE 64MG DELAYED REL TAB PO SCH (08:38)
[2021-06-14] MEDS: INSULIN HUMAN NPH SC SCH (08:39)
[2021-06-14] MEDS: INSULIN ASPART 100 UNITS/ML 3 ML PEN SC SCH ×4 (08:40→21:47)
[2021-06-14] MEDS: PREGABALIN 150 MG CAP PO SCH ×2 (08:43→19:56)
[2021-06-14] MEDS: ATORVASTATIN 40 MG TAB PO SCH (19:56)
[2021-06-14] MEDS: INSULIN GLARGINE SOLOSTAR 100 UNITS/ML 3 ML PEN SC SCH (21:46)
[2021-06-14] MEDS: ACETAMINOPHEN 325 MG TAB PO PRN (22:50)
[2021-06-15] MEDS: amLODIPine BESYLATE 5 MG TAB PO SCH (07:38)
[2021-06-15] MEDS: carvediloL 6.25 MG TAB PO SCH ×2 (07:38→20:32)
[2021-06-15] MEDS: VITAMIN B COMPLEX TAB PO SCH (07:38)
[2021-06-15] MEDS: MAGNESIUM CHLORIDE 64MG DELAYED REL TAB PO SCH (07:39)
[2021-06-15] MEDS: FERROUS SULFATE 325 MG TAB PO SCH (07:39)
[2021-06-15] MEDS: OMEGA-3 (PURIFIED FISH OIL) 1 GM CAP PO SCH (07:39)
[2021-06-15] MEDS: PANTOprazole 40 MG TAB PO SCH (07:39)
[2021-06-15] MEDS: ENOXAPARIN INJ 40 MG/0.4 ML SYR SQ SCH (07:40)
[2021-06-15] MEDS: CYANOCOBALAMIN 500 MCG TABLET (VITAMIN B-12) PO SCH (07:40)
[2021-06-15] MEDS: DICYCLOMINE HCL 10 MG CAP PO SCH ×4 (07:40→20:32)
[2021-06-15] MEDS: ACETAMINOPHEN 325 MG TAB PO PRN (07:40)
[2021-06-15] MEDS: dexAMETHasone 6 MG in SYRINGE 0 ML IV SCH (07:40)
[2021-06-15 08:09] LABS: BUN Creatinine Ratio 35.8 (10-20); Calcium 10.4 mg/dl (8.5-10.1); Creatinine Clr Calc Pharmacy 52.6 ml/min; Est GFR (African American) 69.5 ml/min; Potassium 4.5 mmol/L (3.5-5.1)
[2021-06-15] MEDS: INSULIN ASPART 100 UNITS/ML 3 ML PEN SC SCH ×4 (09:12→20:53)
[2021-06-15] MEDS: INSULIN HUMAN NPH SC SCH (09:13)
[2021-06-15] MEDS: PREGABALIN 150 MG CAP PO SCH ×2 (09:15→20:31)
--- NOTE | 2021-06-15 12:28 | Pharmacy Report ---
Pharmacy Glycemic Short Note 2 - Date of Service June 15, 2021 - Glycemic Short BSG Results (Last 24 hours): 06/14/21 06/14/21 06/15/21 16:49 20:20 06:36 Glucose 97 POC Glucose 173 H 128 H 06/15/21 06/15/21 07:43 11:39 Glucose POC Glucose 107 H 296 H OUTPATIENT ANTIDIABETIC REGIMEN: * Metformin 750 mg PO BID * Repaglinide 0.5 mg PO TID * HbA1c = 7% (05/25/21) ASSESSMENT: 06/15: * Patient required 98 units of insulin yesterday, of which 40 units were NPH, 20 units Lantus at HS * Fasting BSG 97 mg/dL - plan to scale back to 15 units of Lantus at HS time * BSGs yesterday trending down quickly throughout the day, will continue NPH 40 units for now 06/13: * Patient received a total of 75 units of insulin yesterday (20 units Lantus + 40 units NPH + 15 units Novolog) * BSGs were acceptable: [phone] mg/dL * Fasting BSg was slightly elevated at 154 mg/dL this AM * No changes in insulin regimen today * Continues on IV dexamethasone and Remdesivir for COVID-19 06/11: * Thuy received a total of 74 units of insulin yesterday (30 units Lantus + 25 units NPH + 19 units bolus) * BSGs were uncontrolled: 373-165-222-200 mg/dL * Fasting BSG was 108 mg/dL this AM - below goal * Given sharp decline in fasting BSGs, will decrease Lantus this evening * BSGs increasing throughout the day, likely due to steroids * NPH increased today with dexamethasone * Tightened carb ratio slightly PLAN FOR INPATIENT GLYCEMIC CONTROL: * Hold outpatient oral diabetes medications * Basal insulin * Lantus 15 units HS * NPH 40 units (0.45 unit/kg) SC daily with IV dexamethasone * Bolus insulin * NovoLog per scale ACHS or Q6hrs while NPO * Goal Range: Low 110 mg/dL - High 140 mg/dL * Correction Factor: 20 mg/dL/unit * Nutritional / Prandial insulin per carb ratio of 1 unit per 5 grams CHO consumed PLAN FOR DISCHARGE: * HbA1c of 7% is at goal for patient, continue outpatient regimen at discharge provided there are no contraindications.
[2021-06-15] MEDS: ATORVASTATIN 40 MG TAB PO SCH (20:32)
[2021-06-15] MEDS: INSULIN GLARGINE SOLOSTAR 100 UNITS/ML 3 ML PEN SC SCH (20:56)
[2021-06-16] MEDS: ACETAMINOPHEN 325 MG TAB PO PRN (06:49)
--- NOTE | 2021-06-16 07:05 | Hospitalist Progress Note ---
Date of Service June 15, 2021 Assessment & Plan (1) Weakness: (2) Non-ST elevation AL (NSTEMI): (3) 2019 novel coronavirus-infected pneumonia (NCIP): (4) Hypoxia: (5) Diabetes mellitus, type II: (6) CAD (coronary artery disease): (7) Dementia: Plan: 80 yo f F w/ HTN, dyslipidemia, DM II, diabetic polyneuropathy, GERD, CKD III, CAD, diastolic dysfunction, LVH, recent left fibular fracture, peripheral neuropathy, recent thrombosis of left EJ, CKD 3, thyroid nodule, dementia, and anxiety who presentssecondary to weakness, fatigue and slurred speech x2 to 3 days. COVID-19 pneumonia Hypoxia --CTA:No pulmonary emboli identified although segmental and subsegmental pulmonary arteries suboptimally assessed due to significant respiratory motion artifact. Bilateral lobe airspace opacities, greater on the left. The findings favor pneumonia or aspiration pneumonitis. Atelectasis could appear similar. Follow-up chest CT in 3 months to ensure resolution is recommended. Basilar and peripheral predominant subpleural cystic change/honeycombing which suggests interstitial lung disease. Moderate cardiomegaly and coronary artery calcification. Continue dexamethasone, Remdesivir finished Day#5 on 06/13 Pulmonary toilet Encourage to prone Lasix PRN Saturating well on room air Covid 19 test negative on 06/14 Plan to discharge to rehab facility on Friday Elevated d-dimer Troponin elevation likely secondary to COVID Troponin trended down CTA showed no PE CAD Patient denies chest pain troponin trended own Continue home meds DM II Last A1c 7.0 on 05/25/2021 Lantus/NovoLog per protocol Hold home medications Consult glycemic pharmacy in setting of dexamethasone use Dementia mood stable Patient is usually slow to respond and can have slurred speech in setting of acute infection as per family Speech at baseline DVT px: SQ Lovenox Code Status : FULL CODE Admission and Anticipated Discharge Date Admission Date: June 09, 2021 Subjective Patient is seen in follow up of covid 19 pna Patient is currently sitting up in chair, in no acute distress, on room air She appears comfortable, denies any complaints Denies any dyspnea Denies any chest pain, shortness of breath, dizziness, nausea Waiting for rehab placement Covid 19 test negative (06/14), plan to DC to [facility] on [facility] requires repeat covid test on Friday Review of Systems Review of Systems: All systems reviewed & are unremarkable except as noted in Subjective Physical Exam Physical Exam: General Appearance: obese F, No distress Head: normocephalic, Atraumatic Eyes: normal inspection, EOMI Neck: supple Respiratory/Chest: Decreased breath sounds, + mild rhonchi Cardiovascular: S1, S2, No murmur, tachycardia Abdomen/GI:Soft, Non tender, Bowel sounds present Extremities/Musculoskeletal:normal inspection, trace pedal edema, left ankle in brace Neurologic/Psych:AAO, speech fluent, no facial symmetry, moves extremities Skin: normal color, warm Results & Data Results & Data ([facility]) Vital Signs (Past 12 Hours) Vital Signs Temp Pulse Pulse Resp BP Pulse Ox 06/15/21 22:00 36.4 C L 66 20 111/62 92 Medications Administered Current Inpatient Medications Acetaminophen (Acetaminophen 325 Mg Tab) 650 mg PO Q4H PRN PRN Reason: Pain or Fever Stop: 07/09/21 22:05 Last Admin: 06/16/21 06:49 Dose: 650 mg Documented by: Al Hydrox/Mg Hydrox/Simethicone (Aluminum/Magnesium Susp 30 Ml Udc) 15 ml PO Q4H PRN PRN Reason: Dyspepsia Stop: 07/09/21 22:05 Amlodipine Besylate (Amlodipine Besylate 5 Mg Tab) 5 mg PO QAM [facility] Stop: 07/13/21 08:59 Last Admin: 06/15/21 07:38 Dose: 5 mg Documented by: Artificial Tears (Artificial Tears) 1 drops OP QID PRN PRN Reason: Dry Eye(S) Stop: 07/09/21 22:19 Atorvastatin Calcium (Atorvastatin 40 Mg Tab) 40 mg PO HS [facility] Stop: 07/09/21 22:59 Last Admin: 06/15/21 20:32 Dose: 40 mg Documented by: Carvedilol (Carvedilol 6.25 Mg Tab) 6.25 mg PO BID [facility] Stop: 07/12/21 03:39 Last Admin: 06/15/21 20:32 Dose: 6.25 mg Documented by: Cyanocobalamin (Cyanocobalamin 500 Mcg Tablet (Vitamin B-12)) 500 mcg PO DAILY [facility] Stop: 07/10/21 08:59 Last Admin: 06/15/21 07:40 Dose: 500 mcg Documented by: Dextrose (Dextrose 50% 50 Ml Syringe) 25 - 50 ml IV UD PRN; Protocol PRN Reason: Hypoglycemia Protocol Stop: 07/09/21 22:05 Dicyclomine HCl (Dicyclomine Hcl 10 Mg Cap) 10 mg PO QID [facility] Stop: 07/09/21 22:59 Last Admin: 06/15/21 20:32 Dose: 10 mg Documented by: Docusate Sodium (Docusate Sodium 100 Mg Cap) 100 mg PO BID PRN PRN Reason: Constipation Stop: 07/09/21 22:05 Enoxaparin Sodium (Enoxaparin Inj 40 Mg/0.4 Ml Syr) 40 mg SQ QAM [facility] Stop: 07/11/21 08:59 Last Admin: 06/15/21 07:40 Dose: 40 mg Documented by: Ferrous Sulfate (Ferrous Sulfate 325 Mg Tab) 650 mg PO DAILY [facility] Stop: 07/10/21 08:59 Last Admin: 06/15/21 07:39 Dose: 650 mg Documented by: Fish Oil ([place]-3 (Purified Fish Oil) 1 Gm Cap) 2 gm PO QAM [facility] Stop: 07/10/21 08:59 Last Admin: 06/15/21 07:39 Dose: 2 gm Documented by: Glucagon (Glucagon For Inj 1 Mg Vial) 1 mg SQ UD PRN; Protocol PRN Reason: Hypoglycemia Protocol Stop: 07/09/21 22:05 Glucose (Glucose 10 Tabs/Tube) 4 - 8 tabs PO UD PRN; Protocol PRN Reason: Hypoglycemia Protocol Stop: 07/09/21 22:05 Glucose (Glucose 40% Gel 15 Gm Tube) 15 - 30 gm PO UD PRN; Protocol PRN Reason: Hypoglycemia Protocol Stop: 07/09/21 22:05 Dexamethasone 6 mg/ Syringe 1.5 mls @ 1 mls/min IV DAILY [facility] Stop: 06/20/21 08:59 Last Admin: 06/15/21 07:40 Dose: 1 mls/min Documented by: Insulin Aspart (Insulin Aspart 100 Units/Ml 3 Ml Pen) 0 units SC [facility]; Protocol Stop: 07/10/21 12:29 Last Admin: 06/15/21 20:53 Dose: Not Given Documented by: Insulin Glargine (Insulin Glargine Solostar 100 Units/Ml 3 Ml Pen) 15 units SC HS [facility]; Protocol Stop: 07/15/21 20:59 Last Admin: 06/15/21 20:56 Dose: 15 units Documented by: Insulin Human NPH (Insulin Human Nph) 40 units SC DAILY [facility]; Protocol Stop: 07/11/21 08:59 Last Admin: 06/15/21 09:13 Dose: 40 units Documented by: Lorazepam (Lorazepam 0.5 Mg Tab) 0.5 mg PO TID PRN PRN Reason: Anxiety Stop: 07/09/21 22:05 Magnesium Chloride (Magnesium Chloride 64mg Delayed Rel Tab) 128 mg PO QAM [facility] Stop: 07/10/21 08:59 Last Admin: 06/15/21 07:39 Dose: 128 mg Documented by: Magnesium Hydroxide (Magnesium Hydroxide Susp 30 Ml Udc) 30 ml PO Q12H PRN PRN Reason: Constipation Stop: 07/09/21 22:05 Miconazole Nitrate (Miconazole Nitrate Powder 43 Gm) 1 appln EXT PRN PRN PRN Reason: Affected Skin Folds Stop: 07/10/21 02:22 Last Admin: 06/10/21 05:56 Dose: 1 appln Documented by: Miscellaneous (Carbohydrates For Hypoglycemia ) 15 - 30 gm PO UD PRN PRN Reason: Hypoglycemia Protocol Stop: 07/09/21 22:05 Miscellaneous Information (Pharmacy Glycemic Mgmt Consult) 1 ea N/A UD PRN; Protocol PRN Reason: Consult Stop: 07/09/21 22:05 Ondansetron HCl (Ondansetron Inj 2 Mg/Ml 2 Ml Vial) 4 mg IV Q6H PRN PRN Reason: Nausea Stop: 07/09/21 22:05 Pantoprazole Sodium (Pantoprazole 40 Mg Tab) 40 mg PO QAM [facility]; Protocol Stop: 07/10/21 08:59 Last Admin: 06/15/21 07:39 Dose: 40 mg Documented by: Polyethylene Glycol (Polyethylene (Miralax) 17 Gm Pack) 17 gm PO DAILY PRN PRN Reason: Constipation Stop: 07/09/21 22:05 Pregabalin (Pregabalin 150 Mg Cap) 150 mg PO BID [facility] Stop: 07/09/21 22:59 Last Admin: 06/15/21 20:31 Dose: 150 mg Documented by: Vitamin B Complex (Vitamin B Complex Tab) 1 tab PO DAILY [facility] Stop: 07/10/21 08:59 Last Admin: 06/15/21 07:38 Dose: 1 tab Documented by: Zolpidem Tartrate (Zolpidem Tartrate 5 Mg Tab) 5 mg PO HS PRN PRN Reason: Sleep Stop: 07/09/21 22:05 Last Admin: 06/13/21 21:06 Dose: 5 mg Documented by:
[2021-06-16 07:30] LABS: BUN Creatinine Ratio 33.7 (10-20); Calcium 10.6 mg/dl (8.5-10.1); Creatinine Clr Calc Pharmacy 46.9 ml/min; Est GFR (African American) 60.6 ml/min; Est GFR (Non-African American) 52.3 ml/min; Potassium 4.4 mmol/L (3.5-5.1)
[2021-06-16] MEDS: ENOXAPARIN INJ 40 MG/0.4 ML SYR SQ SCH (08:04)
[2021-06-16] MEDS: dexAMETHasone 6 MG in SYRINGE 0 ML IV SCH (08:04)
[2021-06-16] MEDS: PANTOprazole 40 MG TAB PO SCH (08:05)
[2021-06-16] MEDS: VITAMIN B COMPLEX TAB PO SCH (08:05)
[2021-06-16] MEDS: CYANOCOBALAMIN 500 MCG TABLET (VITAMIN B-12) PO SCH (08:05)
[2021-06-16] MEDS: MAGNESIUM CHLORIDE 64MG DELAYED REL TAB PO SCH (08:05)
[2021-06-16] MEDS: FERROUS SULFATE 325 MG TAB PO SCH (08:05)
[2021-06-16] MEDS: amLODIPine BESYLATE 5 MG TAB PO SCH (08:05)
[2021-06-16] MEDS: OMEGA-3 (PURIFIED FISH OIL) 1 GM CAP PO SCH (08:06)
[2021-06-16] MEDS: carvediloL 6.25 MG TAB PO SCH ×2 (08:06→20:33)
[2021-06-16] MEDS: DICYCLOMINE HCL 10 MG CAP PO SCH ×4 (08:06→20:33)
[2021-06-16] MEDS: INSULIN HUMAN NPH SC SCH (08:07)
[2021-06-16] MEDS: INSULIN ASPART 100 UNITS/ML 3 ML PEN SC SCH (08:08)
[2021-06-16] MEDS: PREGABALIN 150 MG CAP PO SCH ×2 (08:14→20:32)
[2021-06-16] MEDS: INSULIN ASPART PER UNIT SC SCH ×3 (12:15→20:37)
--- NOTE | 2021-06-16 13:44 | Hospitalist Progress Note ---
Date of Service June 16, 2021 Assessment & Plan (1) Weakness: (2) Non-ST elevation IN (NSTEMI): (3) 2019 novel coronavirus-infected pneumonia (NCIP): (4) Hypoxia: (5) Diabetes mellitus, type II: (6) CAD (coronary artery disease): (7) Dementia: Plan: 80 yo f F w/ HTN, dyslipidemia, DM II, diabetic polyneuropathy, GERD, CKD III, CAD, diastolic dysfunction, LVH, recent left fibular fracture, peripheral neuropathy, recent thrombosis of left EJ, CKD 3, thyroid nodule, dementia, and anxiety who presentssecondary to weakness, fatigue and slurred speech x2 to 3 days. COVID-19 pneumonia Hypoxia --CTA:No pulmonary emboli identified although segmental and subsegmental pulmonary arteries suboptimally assessed due to significant respiratory motion artifact. Bilateral lobe airspace opacities, greater on the left. The findings favor pneumonia or aspiration pneumonitis. Atelectasis could appear similar. Follow-up chest CT in 3 months to ensure resolution is recommended. Basilar and peripheral predominant subpleural cystic change/honeycombing which suggests interstitial lung disease. Moderate cardiomegaly and coronary artery calcification. Continue dexamethasone, Remdesivir finished Day#5 on 06/13 Pulmonary toilet Encourage to prone Lasix PRN Saturating well on room air Covid 19 test negative on 06/14 and on 06/16 Plan to discharge to rehab facility on Friday if bed available Elevated d-dimer Troponin elevation likely secondary to COVID Troponin trended down CTA showed no PE CAD Patient denies chest pain troponin trended own Continue home meds DM II Last A1c 7.0 on 05/25/2021 Lantus/NovoLog per protocol Hold home medications Consult glycemic pharmacy in setting of dexamethasone use Dementia mood stable DVT px: SQ Lovenox Code Status : FULL CODE Admission and Anticipated Discharge Date Admission Date: June 09, 2021 Subjective Patient is seen in follow up of covid 19 pna Patient is currently laying in bed, in no acute distress, on room air She appears comfortable, denies any complaints Denies any dyspnea Denies any chest pain, shortness of breath, dizziness, nausea Waiting for rehab placement Covid 19 test negative (06/14), and on 06/16- plan to DC to [facility] on Friday if bed available Review of Systems Review of Systems: All systems reviewed & are unremarkable except as noted in Subjective Physical Exam Physical Exam: General Appearance: obese F, No distress Head: normocephalic, Atraumatic Eyes: normal inspection, EOMI Neck: supple Respiratory/Chest: Decreased breath sounds, + mild rhonchi Cardiovascular: S1, S2, No murmur, tachycardia Abdomen/GI:Soft, Non tender, Bowel sounds present Extremities/Musculoskeletal:normal inspection, trace pedal edema, left ankle in brace Neurologic/Psych:AAO, speech fluent, no facial symmetry, moves extremities Skin: normal color, warm Results & Data Results & Data ([facility]) Vital Signs (Past 12 Hours) Vital Signs Temp Pulse Pulse Resp BP Pulse Ox 06/16/21 11:28 36.7 C 76 16 115/71 92 06/16/21 08:12 36.6 C 72 20 161/73 H 95 06/16/21 08:00 71 06/16/21 05:28 63 06/16/21 04:00 36.9 C 75 20 147/83 H 93 Laboratory Results 06/16/21 06/16/21 06/16/21 Range/Units 11:33 07:41 06:09 Sodium 138 (136-145) mmol/L Potassium 4.4 (3.5-5.1) mmol/L Chloride 104 (98-107) mmol/L Carbon Dioxide 30 (21-32) mmol/L Anion Gap 4.0 (3-11) BUN 34 H (7-18) mg/dl Creatinine 1.02 (0.6-1.2) mg/dl Est Cr Clr Drug Dosing 46.9 ml/min Est GFR ( Amer) 60.6 ml/min Est GFR (Non-Af Amer) 52.3 ml/min BUN/Creatinine Ratio 33.7 H (10-20) Glucose 93 (70-99) mg/dl POC Glucose 194 H 122 H (70-99) mg/dl Calcium 10.6 H (8.5-10.1) mg/dl 06/15/21 06/15/21 Range/Units 20:45 16:29 Sodium (136-145) mmol/L Potassium (3.5-5.1) mmol/L Chloride (98-107) mmol/L Carbon Dioxide (21-32) mmol/L Anion Gap (3-11) BUN (7-18) mg/dl Creatinine (0.6-1.2) mg/dl Est Cr Clr Drug Dosing ml/min Est GFR ( Amer) ml/min Est GFR (Non-Af Amer) ml/min BUN/Creatinine Ratio (10-20) Glucose (70-99) mg/dl POC Glucose 111 H 250 H (70-99) mg/dl Calcium (8.5-10.1) mg/dl Medications Administered Current Inpatient Medications Acetaminophen (Acetaminophen 325 Mg Tab) 650 mg PO Q4H PRN PRN Reason: Pain or Fever Stop: 07/09/21 22:05 Last Admin: 06/16/21 06:49 Dose: 650 mg Documented by: Al Hydrox/Mg Hydrox/Simethicone (Aluminum/Magnesium Susp 30 Ml Udc) 15 ml PO Q4H PRN PRN Reason: Dyspepsia Stop: 07/09/21 22:05 Amlodipine Besylate (Amlodipine Besylate 5 Mg Tab) 5 mg PO QAM [facility] Stop: 07/13/21 08:59 Last Admin: 06/16/21 08:05 Dose: 5 mg Documented by: Artificial Tears (Artificial Tears) 1 drops OP QID PRN PRN Reason: Dry Eye(S) Stop: 07/09/21 22:19 Atorvastatin Calcium (Atorvastatin 40 Mg Tab) 40 mg PO HS [facility] Stop: 07/09/21 22:59 Last Admin: 06/15/21 20:32 Dose: 40 mg Documented by: Carvedilol (Carvedilol 6.25 Mg Tab) 6.25 mg PO BID [facility] Stop: 07/12/21 03:39 Last Admin: 06/16/21 08:06 Dose: 6.25 mg Documented by: Cyanocobalamin (Cyanocobalamin 500 Mcg Tablet (Vitamin B-12)) 500 mcg PO DAILY [facility] Stop: 07/10/21 08:59 Last Admin: 06/16/21 08:05 Dose: 500 mcg Documented by: Dextrose (Dextrose 50% 50 Ml Syringe) 25 - 50 ml IV UD PRN; Protocol PRN Reason: Hypoglycemia Protocol Stop: 07/09/21 22:05 Dicyclomine HCl (Dicyclomine Hcl 10 Mg Cap) 10 mg PO QID [facility] Stop: 07/09/21 22:59 Last Admin: 06/16/21 12:08 Dose: 10 mg Documented by: Docusate Sodium (Docusate Sodium 100 Mg Cap) 100 mg PO BID PRN PRN Reason: Constipation Stop: 07/09/21 22:05 Enoxaparin Sodium (Enoxaparin Inj 40 Mg/0.4 Ml Syr) 40 mg SQ QAM [facility] Stop: 07/11/21 08:59 Last Admin: 06/16/21 08:04 Dose: 40 mg Documented by: Ferrous Sulfate (Ferrous Sulfate 325 Mg Tab) 650 mg PO DAILY [facility] Stop: 07/10/21 08:59 Last Admin: 06/16/21 08:05 Dose: 650 mg Documented by: Fish Oil ([place]-3 (Purified Fish Oil) 1 Gm Cap) 2 gm PO QAM [facility] Stop: 07/10/21 08:59 Last Admin: 06/16/21 08:06 Dose: 2 gm Documented by: Glucagon (Glucagon For Inj 1 Mg Vial) 1 mg SQ UD PRN; Protocol PRN Reason: Hypoglycemia Protocol Stop: 07/09/21 22:05 Glucose (Glucose 10 Tabs/Tube) 4 - 8 tabs PO UD PRN; Protocol PRN Reason: Hypoglycemia Protocol Stop: 07/09/21 22:05 Glucose (Glucose 40% Gel 15 Gm Tube) 15 - 30 gm PO UD PRN; Protocol PRN Reason: Hypoglycemia Protocol Stop: 07/09/21 22:05 Dexamethasone 6 mg/ Syringe 1.5 mls @ 1 mls/min IV DAILY [facility] Stop: 06/20/21 08:59 Last Admin: 06/16/21 08:04 Dose: 1 mls/min Documented by: Insulin Aspart (Insulin Aspart Per Unit) 0 units SC [facility]; Protocol Stop: 07/16/21 11:29 Last Admin: 06/16/21 12:15 Dose: 16 units Documented by: Insulin Glargine (Insulin Glargine Solostar 100 Units/Ml 3 Ml Pen) 15 units SC [facility]; Protocol Stop: 07/15/21 20:59 Last Admin: 06/15/21 20:56 Dose: 15 units Documented by: Insulin Human NPH (Insulin Human Nph) 40 units SC DAILY [facility]; Protocol Stop: 07/11/21 08:59 Last Admin: 06/16/21 08:07 Dose: 40 units Documented by: Lorazepam (Lorazepam 0.5 Mg Tab) 0.5 mg PO TID PRN PRN Reason: Anxiety Stop: 07/09/21 22:05 Magnesium Chloride (Magnesium Chloride 64mg Delayed Rel Tab) 128 mg PO QAM [facility] Stop: 07/10/21 08:59 Last Admin: 06/16/21 08:05 Dose: 128 mg Documented by: Magnesium Hydroxide (Magnesium Hydroxide Susp 30 Ml Udc) 30 ml PO Q12H PRN PRN Reason: Constipation Stop: 07/09/21 22:05 Miconazole Nitrate (Miconazole Nitrate Powder 43 Gm) 1 appln EXT PRN PRN PRN Reason: Affected Skin Folds Stop: 07/10/21 02:22 Last Admin: 06/10/21 05:56 Dose: 1 appln Documented by: Miscellaneous (Carbohydrates For Hypoglycemia ) 15 - 30 gm PO UD PRN PRN Reason: Hypoglycemia Protocol Stop: 07/09/21 22:05 Miscellaneous Information (Pharmacy Glycemic Mgmt Consult) 1 ea N/A UD PRN; Protocol PRN Reason: Consult Stop: 07/09/21 22:05 Ondansetron HCl (Ondansetron Inj 2 Mg/Ml 2 Ml Vial) 4 mg IV Q6H PRN PRN Reason: Nausea Stop: 07/09/21 22:05 Pantoprazole Sodium (Pantoprazole 40 Mg Tab) 40 mg PO QAM [facility]; Protocol Stop: 07/10/21 08:59 Last Admin: 06/16/21 08:05 Dose: 40 mg Documented by: Polyethylene Glycol (Polyethylene (Miralax) 17 Gm Pack) 17 gm PO DAILY PRN PRN Reason: Constipation Stop: 07/09/21 22:05 Pregabalin (Pregabalin 150 Mg Cap) 150 mg PO BID [facility] Stop: 07/09/21 22:59 Last Admin: 06/16/21 08:14 Dose: 150 mg Documented by: Vitamin B Complex (Vitamin B Complex Tab) 1 tab PO DAILY [facility] Stop: 07/10/21 08:59 Last Admin: 06/16/21 08:05 Dose: 1 tab Documented by: Zolpidem Tartrate (Zolpidem Tartrate 5 Mg Tab) 5 mg PO HS PRN PRN Reason: Sleep Stop: 07/09/21 22:05 Last Admin: 06/13/21 21:06 Dose: 5 mg Documented by:
[2021-06-16] MEDS: ATORVASTATIN 40 MG TAB PO SCH (20:33)
[2021-06-16] MEDS: INSULIN GLARGINE SOLOSTAR 100 UNITS/ML 3 ML PEN SC SCH (20:33)
[2021-06-16] MEDS: INSULIN ASPART 100 UNITS/ML VIAL SC SCH (21:05)
--- NOTE | 2021-06-17 07:04 | Hospitalist Progress Note ---
Date of Service June 17, 2021 Assessment & Plan (1) Weakness: (2) Non-ST elevation DE (NSTEMI): (3) 2019 novel coronavirus-infected pneumonia (NCIP): (4) Hypoxia: (5) Diabetes mellitus, type II: (6) CAD (coronary artery disease): (7) Dementia: Plan: 80 yo f F w/ HTN, dyslipidemia, DM II, diabetic polyneuropathy, GERD, CKD III, CAD, diastolic dysfunction, LVH, recent left fibular fracture, peripheral neuropathy, recent thrombosis of left EJ, CKD 3, thyroid nodule, dementia, and anxiety who presentssecondary to weakness, fatigue and slurred speech x2 to 3 days. COVID-19 pneumonia Hypoxia --CTA:No pulmonary emboli identified although segmental and subsegmental pulmonary arteries suboptimally assessed due to significant respiratory motion artifact. Bilateral lobe airspace opacities, greater on the left. The findings favor pneumonia or aspiration pneumonitis. Atelectasis could appear similar. Follow-up chest CT in 3 months to ensure resolution is recommended. Basilar and peripheral predominant subpleural cystic change/honeycombing which suggests interstitial lung disease. Moderate cardiomegaly and coronary artery calcification. Continue dexamethasone, Remdesivir finished Day#5 on 06/13 Pulmonary toilet Encourage to prone Lasix PRN Saturating well on room air Covid 19 test negative on 06/14 and on 06/16 Plan to discharge to rehab facility 06/17 -patient developed R -sided chest pain, and coughed up green sputum Currently without any pain, will obtain chest x-ray procalcitonin, CBC Continues to breathe without difficulty, she is on room air, 97% Elevated d-dimer Troponin elevation likely secondary to COVID Troponin trended down CTA showed no PE CAD Patient denies chest pain troponin trended own Continue home meds DM II Last A1c 7.0 on 05/25/2021 Lantus/NovoLog per protocol Hold home medications Consult glycemic pharmacy in setting of dexamethasone use Dementia mood stable DVT px: SQ Lovenox Code Status : FULL CODE Admission and Anticipated Discharge Date Admission Date: June 09, 2021 Subjective Patient is seen in follow up of covid 19 pna Patient is currently sitting up in chair, in no acute distress, on room air She appears comfortable, denies any complaints Denies any dyspnea Denies any chest pain, shortness of breath, dizziness, nausea Covid 19 test negative (06/14), and on 06/16- plan to DC to [facility] Per nursing staff, patient had some right-sided chest pain today and coughed up green sputum (per RN for the first time) On my interview patient says the pain is completely gone and she feels well, and she is inquiring about discharge Denies any fevers or chills Review of Systems Review of Systems: All systems reviewed & are unremarkable except as noted in Subjective Physical Exam Physical Exam: General Appearance: obese F, No distress Head: normocephalic, Atraumatic Eyes: normal inspection, EOMI Neck: supple Respiratory/Chest: Decreased breath sounds, + mild rhonchi, no wheezing Cardiovascular: S1, S2, No murmur, tachycardia Abdomen/GI:Soft, Non tender, Bowel sounds present Extremities/Musculoskeletal:normal inspection, trace pedal edema, left ankle in brace Neurologic/Psych:AAO, speech fluent, no facial symmetry, moves extremities Skin: normal color, warm Results & Data Results & Data ([facility]) Vital Signs (Past 12 Hours) Vital Signs Temp Pulse Pulse Resp BP BP Pulse Ox 06/17/21 03:00 36.8 C 78 20 119/68 91 06/17/21 02:26 67 06/16/21 23:00 36.8 C 75 20 115/68 93 06/16/21 19:27 36.8 C 90 20 145/77 H 92 Laboratory Results 06/17/21 06/17/21 06/17/21 Range/Units 11:41 10:00 10:00 WBC (4.8-10.8) K/uL RBC (4.2-5.4) M/uL Hgb (12.0-16.0) g/dL Hct (37-47) % MCV (80-100) fL MCH (25-34) pg MCHC (32-36) g/dL RDW Std Deviation (36.4-46.3) fL RDW Coeff of Pia (11.5-14.5) % Plt Count (130-400) K/uL MPV (7.4-10.4) fL Sodium 138 (136-145) mmol/L Potassium 4.5 (3.5-5.1) mmol/L Chloride 104 (98-107) mmol/L Carbon Dioxide 29 (21-32) mmol/L Anion Gap 6.0 (3-11) BUN 37 H (7-18) mg/dl Creatinine 1.14 (0.6-1.2) mg/dl Est Cr Clr Drug Dosing 41.9 ml/min Est GFR ( Amer) 53.0 ml/min Est GFR (Non-Af Amer) 45.7 ml/min BUN/Creatinine Ratio 32.6 H (10-20) Glucose 276 H (70-99) mg/dl POC Glucose 184 H (70-99) mg/dl Calcium 10.2 H (8.5-10.1) mg/dl Procalcitonin < 0.05 (0-0.5) ng/ml SARS-CoV-2, RNA, NAAT (NEGATIVE) 06/17/21 06/17/21 06/16/21 Range/Units 10:00 07:43 20:27 WBC 13.01 H (4.8-10.8) K/uL RBC 4.19 L (4.2-5.4) M/uL Hgb 12.0 (12.0-16.0) g/dL Hct 38.8 (37-47) % MCV 92.6 (80-100) fL MCH 28.6 (25-34) pg MCHC 30.9 L (32-36) g/dL RDW Std Deviation 52.1 H (36.4-46.3) fL RDW Coeff of Pia 15.7 H (11.5-14.5) % Plt Count 252 (130-400) K/uL MPV 10.4 (7.4-10.4) fL Sodium (136-145) mmol/L Potassium (3.5-5.1) mmol/L Chloride (98-107) mmol/L Carbon Dioxide (21-32) mmol/L Anion Gap (3-11) BUN (7-18) mg/dl Creatinine (0.6-1.2) mg/dl Est Cr Clr Drug Dosing ml/min Est GFR ( Amer) ml/min Est GFR (Non-Af Amer) ml/min BUN/Creatinine Ratio (10-20) Glucose (70-99) mg/dl POC Glucose 118 H 115 H (70-99) mg/dl Calcium (8.5-10.1) mg/dl Procalcitonin (0-0.5) ng/ml SARS-CoV-2, RNA, NAAT (NEGATIVE) 06/16/21 06/16/21 Range/Units 16:44 14:13 WBC (4.8-10.8) K/uL RBC (4.2-5.4) M/uL Hgb (12.0-16.0) g/dL Hct (37-47) % MCV (80-100) fL MCH (25-34) pg MCHC (32-36) g/dL RDW Std Deviation (36.4-46.3) fL RDW Coeff of Pia (11.5-14.5) % Plt Count (130-400) K/uL MPV (7.4-10.4) fL Sodium (136-145) mmol/L Potassium (3.5-5.1) mmol/L Chloride (98-107) mmol/L Carbon Dioxide (21-32) mmol/L Anion Gap (3-11) BUN (7-18) mg/dl Creatinine (0.6-1.2) mg/dl Est Cr Clr Drug Dosing ml/min Est GFR ( Amer) ml/min Est GFR (Non-Af Amer) ml/min BUN/Creatinine Ratio (10-20) Glucose (70-99) mg/dl POC Glucose 171 H (70-99) mg/dl Calcium (8.5-10.1) mg/dl Procalcitonin (0-0.5) ng/ml SARS-CoV-2, RNA, NAAT NEGATIVE (NEGATIVE) Medications Administered Current Inpatient Medications Acetaminophen (Acetaminophen 325 Mg Tab) 650 mg PO Q4H PRN PRN Reason: Pain or Fever Stop: 07/09/21 22:05 Last Admin: 06/17/21 09:34 Dose: 650 mg Documented by: Al Hydrox/Mg Hydrox/Simethicone (Aluminum/Magnesium Susp 30 Ml Udc) 15 ml PO Q4H PRN PRN Reason: Dyspepsia Stop: 07/09/21 22:05 Amlodipine Besylate (Amlodipine Besylate 5 Mg Tab) 5 mg PO QAM [facility] Stop: 07/13/21 08:59 Last Admin: 06/17/21 08:18 Dose: 5 mg Documented by: Amoxicillin/Clavulanate Potassium (Amoxicillin/Clavulanate 875 Mg Tab) 1 tab PO BIDM [facility] Stop: 06/24/21 16:59 Artificial Tears (Artificial Tears) 1 drops OP QID PRN PRN Reason: Dry Eye(S) Stop: 07/09/21 22:19 Atorvastatin Calcium (Atorvastatin 40 Mg Tab) 40 mg PO HS [facility] Stop: 07/09/21 22:59 Last Admin: 06/16/21 20:33 Dose: 40 mg Documented by: Carvedilol (Carvedilol 6.25 Mg Tab) 6.25 mg PO BID [facility] Stop: 07/12/21 03:39 Last Admin: 06/17/21 08:18 Dose: 6.25 mg Documented by: Cyanocobalamin (Cyanocobalamin 500 Mcg Tablet (Vitamin B-12)) 500 mcg PO DAILY [facility] Stop: 07/10/21 08:59 Last Admin: 06/17/21 08:16 Dose: 500 mcg Documented by: Dextrose (Dextrose 50% 50 Ml Syringe) 25 - 50 ml IV UD PRN; Protocol PRN Reason: Hypoglycemia Protocol Stop: 07/09/21 22:05 Dicyclomine HCl (Dicyclomine Hcl 10 Mg Cap) 10 mg PO QID [facility] Stop: 07/09/21 22:59 Last Admin: 06/17/21 12:18 Dose: 10 mg Documented by: Docusate Sodium (Docusate Sodium 100 Mg Cap) 100 mg PO BID PRN PRN Reason: Constipation Stop: 07/09/21 22:05 Last Admin: 06/17/21 08:15 Dose: 100 mg Documented by: Enoxaparin Sodium (Enoxaparin Inj 40 Mg/0.4 Ml Syr) 40 mg SQ QAM [facility] Stop: 07/11/21 08:59 Last Admin: 06/17/21 08:18 Dose: 40 mg Documented by: Ferrous Sulfate (Ferrous Sulfate 325 Mg Tab) 650 mg PO DAILY [facility] Stop: 07/10/21 08:59 Last Admin: 06/17/21 08:18 Dose: 650 mg Documented by: Fish Oil ([place]-3 (Purified Fish Oil) 1 Gm Cap) 2 gm PO QAM [facility] Stop: 07/10/21 08:59 Last Admin: 06/17/21 08:16 Dose: 2 gm Documented by: Glucagon (Glucagon For Inj 1 Mg Vial) 1 mg SQ UD PRN; Protocol PRN Reason: Hypoglycemia Protocol Stop: 07/09/21 22:05 Glucose (Glucose 10 Tabs/Tube) 4 - 8 tabs PO UD PRN; Protocol PRN Reason: Hypoglycemia Protocol Stop: 07/09/21 22:05 Glucose (Glucose 40% Gel 15 Gm Tube) 15 - 30 gm PO UD PRN; Protocol PRN Reason: Hypoglycemia Protocol Stop: 07/09/21 22:05 Guaifenesin (Guaifenesin 600 Mg Tabcr) 600 mg PO Q12 [facility] Stop: 07/17/21 11:59 Last Admin: 06/17/21 12:18 Dose: 600 mg Documented by: Dexamethasone 6 mg/ Syringe 1.5 mls @ 1 mls/min IV DAILY [facility] Stop: 06/20/21 08:59 Last Admin: 06/17/21 08:16 Dose: 1 mls/min Documented by: Insulin Aspart (Insulin Aspart 100 Units/Ml Vial) 0 units SC ACHS [facility]; Protocol Stop: 07/16/21 20:59 Last Admin: 06/17/21 12:21 Dose: 12 units Documented by: Insulin Glargine (Insulin Glargine Solostar 100 Units/Ml 3 Ml Pen) 15 units SC HS [facility]; Protocol Stop: 07/15/21 20:59 Last Admin: 06/16/21 20:33 Dose: 15 units Documented by: Insulin Human NPH (Insulin Human Nph) 40 units SC DAILY [facility]; Protocol Stop: 07/11/21 08:59 Last Admin: 06/17/21 08:14 Dose: 40 units Documented by: Lactobacillus Acidoph/Casei/Rhamnos (Advanced Probiotic 1250 Mg Capsule) 2 cap PO DAILY [facility] Stop: 07/17/21 11:14 Last Admin: 06/17/21 11:44 Dose: 2 cap Documented by: Lorazepam (Lorazepam 0.5 Mg Tab) 0.5 mg PO TID PRN PRN Reason: Anxiety Stop: 07/09/21 22:05 Magnesium Chloride (Magnesium Chloride 64mg Delayed Rel Tab) 128 mg PO QAM [facility] Stop: 07/10/21 08:59 Last Admin: 06/17/21 08:16 Dose: 128 mg Documented by: Magnesium Hydroxide (Magnesium Hydroxide Susp 30 Ml Udc) 30 ml PO Q12H PRN PRN Reason: Constipation Stop: 07/09/21 22:05 Miconazole Nitrate (Miconazole Nitrate Powder 43 Gm) 1 appln EXT PRN PRN PRN Reason: Affected Skin Folds Stop: 07/10/21 02:22 Last Admin: 06/10/21 05:56 Dose: 1 appln Documented by: Miscellaneous (Carbohydrates For Hypoglycemia ) 15 - 30 gm PO UD PRN PRN Reason: Hypoglycemia Protocol Stop: 07/09/21 22:05 Miscellaneous Information (Pharmacy Glycemic Mgmt Consult) 1 ea N/A UD PRN; Protocol PRN Reason: Consult Stop: 07/09/21 22:05 Ondansetron HCl (Ondansetron Inj 2 Mg/Ml 2 Ml Vial) 4 mg IV Q6H PRN PRN Reason: Nausea Stop: 07/09/21 22:05 Pantoprazole Sodium (Pantoprazole 40 Mg Tab) [facility] Protocol Stop: 07/10/21 08:59 Last Admin: 06/17/21 08:17 Dose: 40 mg Documented by: Polyethylene Glycol (Polyethylene (Miralax) 17 Gm Pack) 17 gm PO DAILY PRN PRN Reason: Constipation Stop: 07/09/21 22:05 Pregabalin (Pregabalin 150 Mg Cap) 150 mg PO BID [facility] Stop: 07/09/21 22:59 Last Admin: 06/17/21 08:15 Dose: 150 mg Documented by: Vitamin B Complex (Vitamin B Complex Tab) 1 tab PO DAILY [facility] Stop: 07/10/21 08:59 Last Admin: 06/17/21 08:18 Dose: 1 tab Documented by: Zolpidem Tartrate (Zolpidem Tartrate 5 Mg Tab) 5 mg PO HS PRN PRN Reason: Sleep Stop: 07/09/21 22:05 Last Admin: 06/13/21 21:06 Dose: 5 mg Documented by:
[2021-06-17] MEDS: INSULIN ASPART 100 UNITS/ML VIAL SC SCH ×4 (08:12→21:04)
[2021-06-17] MEDS: INSULIN HUMAN NPH SC SCH (08:14)
[2021-06-17] MEDS: PREGABALIN 150 MG CAP PO SCH ×2 (08:15→20:08)
[2021-06-17] MEDS: OMEGA-3 (PURIFIED FISH OIL) 1 GM CAP PO SCH (08:16)
[2021-06-17] MEDS: dexAMETHasone 6 MG in SYRINGE 0 ML IV SCH (08:16)
[2021-06-17] MEDS: CYANOCOBALAMIN 500 MCG TABLET (VITAMIN B-12) PO SCH (08:16)
[2021-06-17] MEDS: MAGNESIUM CHLORIDE 64MG DELAYED REL TAB PO SCH (08:16)
[2021-06-17] MEDS: PANTOprazole 40 MG TAB PO SCH (08:17)
[2021-06-17] MEDS: VITAMIN B COMPLEX TAB PO SCH (08:18)
[2021-06-17] MEDS: FERROUS SULFATE 325 MG TAB PO SCH (08:18)
[2021-06-17] MEDS: ENOXAPARIN INJ 40 MG/0.4 ML SYR SQ SCH (08:18)
[2021-06-17] MEDS: carvediloL 6.25 MG TAB PO SCH ×2 (08:18→20:04)
[2021-06-17] MEDS: DICYCLOMINE HCL 10 MG CAP PO SCH ×4 (08:18→20:04)
[2021-06-17] MEDS: amLODIPine BESYLATE 5 MG TAB PO SCH (08:18)
[2021-06-17] MEDS: ACETAMINOPHEN 325 MG TAB PO PRN (09:34)
[2021-06-17 10:15] LABS: Hematocrit (blood only) 38.8 % (37-47); Mean Corpuscular Hemoglobin 28.6 pg (25-34); Mean Corpuscular Hgb Conc 30.9 g/dL (32-36); Mean Corpuscular Volume 92.6 fL (80-100); Mean Platelet Volume 10.4 fL (7.4-10.4); Platelet Count 252 K/uL (130-400); RDW Coefficient of Variation 15.7 % (11.5-14.5); RDW Standard Deviation 52.1 fL (36.4-46.3); Red Blood Count 4.19 M/uL (4.2-5.4); White Blood Count 13.01 K/uL (4.8-10.8)
[2021-06-17 10:32] LABS: BUN Creatinine Ratio 32.6 (10-20); Calcium 10.2 mg/dl (8.5-10.1); Creatinine Clr Calc Pharmacy 41.9 ml/min; Est GFR (Non-African American) 45.7 ml/min; Potassium 4.5 mmol/L (3.5-5.1)
--- NOTE | 2021-06-17 10:35 | XRay Report ---
XR chest 1V portable CLINICAL HISTORY: Dyspnea TECHNIQUE: Single frontal radiograph of the chest was obtained. Comparison: Comparison is made to chest one view 06/19/2021 and CTA chest 06/19/2021 FINDINGS: No lines and tubes are seen. Cardiomegaly is noted. Lungs are underinflated. There are faint bilatera l lower lung predominant airspace opacities. No evidence of pleural effusion or pneumothorax. IMPRESSION: Faint lower lung predominant airspace opacities which may represent atelectasis, pneumonia, and/or as piration. ACT 112: Negative or not required by law. Electronically signed by: Mati Daniel M.D. 06/17/2021 10:34 AM
--- NOTE | 2021-06-17 10:53 | Pharmacy Report ---
Pharmacy Glycemic Short Note 2 - Date of Service June 17, 2021 - Glycemic Short BSG Results (Last 24 hours): 06/16/21 06/16/21 06/16/21 11:33 16:44 20:27 Glucose POC Glucose 194 H 171 H 115 H 06/17/21 06/17/21 07:43 10:00 Glucose 276 H POC Glucose 118 H OUTPATIENT ANTIDIABETIC REGIMEN: * Metformin 750 mg PO BID * Repaglinide 0.5 mg PO TID * HbA1c = 7% (05/25/21) ASSESSMENT: 06/17: * Thuy received a total of 103 units of insulin yesterday (40 units NPH + 15 units Lantus + 48 units Novolog) * BSGs were acceptable: [id number] mg/dL * Fasting BSG well controlled at 118 mg/dL this AM * No changes to insulin regimen required at this time * Continues on Dexamethasone 6 mg IV daily 06/15: * Patient required 98 units of insulin yesterday, of which 40 units were NPH, 20 units Lantus at HS * Fasting BSG 97 mg/dL - plan to scale back to 15 units of Lantus at HS time * BSGs yesterday trending down quickly throughout the day, will continue NPH 40 units for now PLAN FOR INPATIENT GLYCEMIC CONTROL: * Hold outpatient oral diabetes medications * Basal insulin * Lantus 15 units HS * NPH 40 units (0.45 unit/kg) SC daily with IV dexamethasone * Bolus insulin * NovoLog per scale ACHS or Q6hrs while NPO * Goal Range: Low 110 mg/dL - High 140 mg/dL * Correction Factor: 20 mg/dL/unit * Nutritional / Prandial insulin per carb ratio of 1 unit per 5 grams CHO consumed PLAN FOR DISCHARGE: * HbA1c of 7% is at goal for patient, continue outpatient regimen at discharge provided there are no contraindications.
[2021-06-17] MEDS: ADVANCED PROBIOTIC 1250 MG CAPSULE PO SCH (11:44)
[2021-06-17] MEDS: guaiFENesin 600 MG TABCR PO SCH ×2 (12:18→20:06)
[2021-06-17] MEDS: AMOXICILLIN/CLAVULANATE 875 MG TAB PO SCH (17:33)
[2021-06-17] MEDS: ATORVASTATIN 40 MG TAB PO SCH (20:05)
[2021-06-17] MEDS: INSULIN GLARGINE SOLOSTAR 100 UNITS/ML 3 ML PEN SC SCH (21:06)
[2021-06-18 06:39] LABS: Hematocrit (blood only) 39.6 % (37-47); Hemoglobin 12.4 g/dL (12.0-16.0); Mean Corpuscular Hgb Conc 31.3 g/dL (32-36); Mean Corpuscular Volume 92.7 fL (80-100); Mean Platelet Volume 10.9 fL (7.4-10.4); Platelet Count 240 K/uL (130-400); RDW Coefficient of Variation 15.9 % (11.5-14.5); RDW Standard Deviation 52.5 fL (36.4-46.3); Red Blood Count 4.27 M/uL (4.2-5.4); White Blood Count 11.68 K/uL (4.8-10.8)
[2021-06-18 07:08] LABS: Magnesium 2.2 mg/dl (1.8-2.4)
[2021-06-18 07:10] LABS: BUN Creatinine Ratio 34.3 (10-20); Calcium 10.7 mg/dl (8.5-10.1); Est GFR (African American) 62.1 ml/min; Est GFR (Non-African American) 53.5 ml/min; Potassium 4.6 mmol/L (3.5-5.1)
[2021-06-18 07:11] LABS: Phosphorus 4.2 mg/dl (2.5-4.9)
[2021-06-18] MEDS: AMOXICILLIN/CLAVULANATE 875 MG TAB PO SCH (07:55)
[2021-06-18] MEDS: dexAMETHasone 6 MG in SYRINGE 0 ML IV SCH (08:38)
[2021-06-18] MEDS: ENOXAPARIN INJ 40 MG/0.4 ML SYR SQ SCH (08:39)
[2021-06-18] MEDS: carvediloL 6.25 MG TAB PO SCH (08:40)
[2021-06-18] MEDS: FERROUS SULFATE 325 MG TAB PO SCH (08:40)
[2021-06-18] MEDS: CYANOCOBALAMIN 500 MCG TABLET (VITAMIN B-12) PO SCH (08:41)
[2021-06-18] MEDS: amLODIPine BESYLATE 5 MG TAB PO SCH (08:41)
[2021-06-18] MEDS: ADVANCED PROBIOTIC 1250 MG CAPSULE PO SCH (08:42)
[2021-06-18] MEDS: OMEGA-3 (PURIFIED FISH OIL) 1 GM CAP PO SCH (08:42)
[2021-06-18] MEDS: MAGNESIUM CHLORIDE 64MG DELAYED REL TAB PO SCH (08:43)
[2021-06-18] MEDS: VITAMIN B COMPLEX TAB PO SCH (08:43)
[2021-06-18] MEDS: PANTOprazole 40 MG TAB PO SCH (08:43)
[2021-06-18] MEDS: DICYCLOMINE HCL 10 MG CAP PO SCH ×2 (08:44→13:45)
[2021-06-18] MEDS: INSULIN HUMAN NPH SC SCH (08:49)
[2021-06-18] MEDS: INSULIN ASPART 100 UNITS/ML VIAL SC SCH ×2 (08:51→12:00)
[2021-06-18] MEDS: PREGABALIN 150 MG CAP PO SCH (09:06)
--- NOTE | 2021-06-18 09:25 | Hospitalist Progress Note ---
Date of Service June 18, 2021 Assessment & Plan (1) Weakness: (2) Non-ST elevation [place] (NSTEMI): (3) 2019 novel coronavirus-infected pneumonia (NCIP): (4) Hypoxia: (5) Diabetes mellitus, type II: (6) CAD (coronary artery disease): (7) Dementia: Plan: 80 yo f F w/ HTN, dyslipidemia, DM II, diabetic polyneuropathy, GERD, CKD III, CAD, diastolic dysfunction, LVH, recent left fibular fracture, peripheral neuropathy, recent thrombosis of left EJ, CKD 3, thyroid nodule, dementia, and anxiety who presentssecondary to weakness, fatigue and slurred speech x2 to 3 days. COVID-19 pneumonia Hypoxia --CTA:No pulmonary emboli identified although segmental and subsegmental pulmonary arteries suboptimally assessed due to significant respiratory motion artifact. Bilateral lobe airspace opacities, greater on the left. The findings favor pneumonia or aspiration pneumonitis. Atelectasis could appear similar. Follow-up chest CT in 3 months to ensure resolution is recommended. Basilar and peripheral predominant subpleural cystic change/honeycombing which suggests interstitial lung disease. Moderate cardiomegaly and coronary artery calcification. Continue dexamethasone, Remdesivir finished Day#5 on 06/13 Pulmonary toilet Encourage to prone Lasix PRN Saturating well on room air Covid 19 test negative on 06/14 and on 06/16 Plan to discharge to rehab facility 06/17 -patient developed R -sided chest pain, and coughed up green sputum Currently without any pain, will obtain chest x-ray procalcitonin, CBC Continues to breathe without difficulty, she is on room air, 97% CXR - Faint lower lung predominant airspace opacities which may represent atelectasis, pneumonia, and/or aspiration. procalcitonin - negative 06/18 -cannot obtain sputum culture, patient was not having productive cough today Continues to be on room air, comfortable Started empiric antibiotic yesterday, will continue for now, flutter valve, guaifenesin cont. to monitor Will need follow up CT chest in 3 months as above Elevated d-dimer Troponin elevation likely secondary to COVID Troponin trended down CTA showed no PE CAD Patient denies chest pain troponin trended own Continue home meds DM II Last A1c 7.0 on 05/25/2021 Lantus/NovoLog per protocol Hold home medications Consult glycemic pharmacy in setting of dexamethasone use Dementia mood stable, pt is very pleasant and cooperative DVT px: SQ Lovenox Code Status : FULL CODE Admission and Anticipated Discharge Date Admission Date: June 09, 2021 Subjective Patient is seen in follow up of covid 19 pna Patient is currently sitting up in chair, in no acute distress, on room air She is pleasant, comfortable, denies any complaints Denies any dyspnea Denies any fevers or chills, chest pain, shortness of breath, dizziness, nausea Covid 19 test negative (06/14), and on 06/16- plan to DC to [facility] Review of Systems Review of Systems: All systems reviewed & are unremarkable except as noted in Subjective Physical Exam Physical Exam: General Appearance: obese F, No distress Head: normocephalic, Atraumatic Eyes: normal inspection, EOMI Neck: supple Respiratory/Chest: Decreased breath sounds, + mild rhonchi, no wheezing Cardiovascular: S1, S2, No murmur, tachycardia Abdomen/GI:Soft, Non tender, Bowel sounds present Extremities/Musculoskeletal:normal inspection, trace pedal edema, left ankle in brace Neurologic/Psych:AAO, speech fluent, no facial symmetry, moves extremities Skin: normal color, warm Results & Data Results & Data ([facility]) Vital Signs (Past 12 Hours) Vital Signs Temp Pulse Pulse Resp BP Pulse Ox 06/18/21 06:36 36.5 C 65 20 129/84 98 06/18/21 05:30 65 06/18/21 04:00 36.5 C 82 18 140/74 95 06/17/21 23:23 36.8 C 66 18 134/72 95 Laboratory Results 06/18/21 06/18/21 06/18/21 Range/Units 07:26 06:03 06:03 WBC 11.68 H (4.8-10.8) K/uL RBC 4.27 (4.2-5.4) M/uL Hgb 12.4 (12.0-16.0) g/dL Hct 39.6 (37-47) % MCV 92.7 (80-100) fL MCH 29.0 (25-34) pg MCHC 31.3 L (32-36) g/dL RDW Std Deviation 52.5 H (36.4-46.3) fL RDW Coeff of Pia 15.9 H (11.5-14.5) % Plt Count 240 (130-400) K/uL MPV 10.9 H (7.4-10.4) fL Sodium 139 (136-145) mmol/L Potassium 4.6 (3.5-5.1) mmol/L Chloride 105 (98-107) mmol/L Carbon Dioxide 29 (21-32) mmol/L Anion Gap 5.0 (3-11) BUN 34 H (7-18) mg/dl Creatinine 1.00 (0.6-1.2) mg/dl Est Cr Clr Drug Dosing 48.0 ml/min Est GFR ( Amer) 62.1 ml/min Est GFR (Non-Af Amer) 53.5 ml/min BUN/Creatinine Ratio 34.3 H (10-20) Glucose 115 H (70-99) mg/dl POC Glucose 110 H (70-99) mg/dl Calcium 10.7 H (8.5-10.1) mg/dl Phosphorus 4.2 (2.5-4.9) mg/dl Magnesium 2.2 (1.8-2.4) mg/dl Procalcitonin (0-0.5) ng/ml 06/17/21 06/17/21 06/17/21 Range/Units 20:52 16:40 11:41 WBC (4.8-10.8) K/uL RBC (4.2-5.4) M/uL Hgb (12.0-16.0) g/dL Hct (37-47) % MCV (80-100) fL MCH (25-34) pg MCHC (32-36) g/dL RDW Std Deviation (36.4-46.3) fL RDW Coeff of Pia (11.5-14.5) % Plt Count (130-400) K/uL MPV (7.4-10.4) fL Sodium (136-145) mmol/L Potassium (3.5-5.1) mmol/L Chloride (98-107) mmol/L Carbon Dioxide (21-32) mmol/L Anion Gap (3-11) BUN (7-18) mg/dl Creatinine (0.6-1.2) mg/dl Est Cr Clr Drug Dosing ml/min Est GFR ( Amer) ml/min Est GFR (Non-Af Amer) ml/min BUN/Creatinine Ratio (10-20) Glucose (70-99) mg/dl POC Glucose 188 H 113 H 184 H (70-99) mg/dl Calcium (8.5-10.1) mg/dl Phosphorus (2.5-4.9) mg/dl Magnesium (1.8-2.4) mg/dl Procalcitonin (0-0.5) ng/ml 06/17/21 06/17/21 06/17/21 Range/Units 10:00 10:00 10:00 WBC 13.01 H (4.8-10.8) K/uL RBC 4.19 L (4.2-5.4) M/uL Hgb 12.0 (12.0-16.0) g/dL Hct 38.8 (37-47) % MCV 92.6 (80-100) fL MCH 28.6 (25-34) pg MCHC 30.9 L (32-36) g/dL RDW Std Deviation 52.1 H (36.4-46.3) fL RDW Coeff of Pia 15.7 H (11.5-14.5) % Plt Count 252 (130-400) K/uL MPV 10.4 (7.4-10.4) fL Sodium 138 (136-145) mmol/L Potassium 4.5 (3.5-5.1) mmol/L Chloride 104 (98-107) mmol/L Carbon Dioxide 29 (21-32) mmol/L Anion Gap 6.0 (3-11) BUN 37 H (7-18) mg/dl Creatinine 1.14 (0.6-1.2) mg/dl Est Cr Clr Drug Dosing 41.9 ml/min Est GFR ( Amer) 53.0 ml/min Est GFR (Non-Af Amer) 45.7 ml/min BUN/Creatinine Ratio 32.6 H (10-20) Glucose 276 H (70-99) mg/dl POC Glucose (70-99) mg/dl Calcium 10.2 H (8.5-10.1) mg/dl Phosphorus (2.5-4.9) mg/dl Magnesium (1.8-2.4) mg/dl Procalcitonin < 0.05 (0-0.5) ng/ml Medications Administered Current Inpatient Medications Acetaminophen (Acetaminophen 325 Mg Tab) 650 mg PO Q4H PRN PRN Reason: Pain or Fever Stop: 07/09/21 22:05 Last Admin: 06/17/21 09:34 Dose: 650 mg Documented by: Al Hydrox/Mg Hydrox/Simethicone (Aluminum/Magnesium Susp 30 Ml Udc) 15 ml PO Q4H PRN PRN Reason: Dyspepsia Stop: 07/09/21 22:05 Amlodipine Besylate (Amlodipine Besylate 5 Mg Tab) 5 mg PO QAM [facility] Stop: 07/13/21 08:59 Last Admin: 06/18/21 08:41 Dose: 5 mg Documented by: Amoxicillin/Clavulanate Potassium (Amoxicillin/Clavulanate 875 Mg Tab) 1 tab PO BIDM [facility] Stop: 06/24/21 16:59 Last Admin: 06/18/21 07:55 Dose: 1 tab Documented by: Artificial Tears (Artificial Tears) 1 drops OP QID PRN PRN Reason: Dry Eye(S) Stop: 07/09/21 22:19 Atorvastatin Calcium (Atorvastatin 40 Mg Tab) 40 mg PO HS [facility] Stop: 07/09/21 22:59 Last Admin: 06/17/21 20:05 Dose: 40 mg Documented by: Carvedilol (Carvedilol 6.25 Mg Tab) 6.25 mg PO BID [facility] Stop: 07/12/21 03:39 Last Admin: 06/18/21 08:40 Dose: 6.25 mg Documented by: Cyanocobalamin (Cyanocobalamin 500 Mcg Tablet (Vitamin B-12)) 500 mcg PO DAILY [facility] Stop: 07/10/21 08:59 Last Admin: 06/18/21 08:41 Dose: 500 mcg Documented by: Dextrose (Dextrose 50% 50 Ml Syringe) 25 - 50 ml IV UD PRN; Protocol PRN Reason: Hypoglycemia Protocol Stop: 07/09/21 22:05 Dicyclomine HCl (Dicyclomine Hcl 10 Mg Cap) 10 mg PO QID [facility] Stop: 07/09/21 22:59 Last Admin: 06/18/21 08:44 Dose: 10 mg Documented by: Docusate Sodium (Docusate Sodium 100 Mg Cap) 100 mg PO BID PRN PRN Reason: Constipation Stop: 07/09/21 22:05 Last Admin: 06/17/21 08:15 Dose: 100 mg Documented by: Enoxaparin Sodium (Enoxaparin Inj 40 Mg/0.4 Ml Syr) 40 mg SQ QAM [facility] Stop: 07/11/21 08:59 Last Admin: 06/18/21 08:39 Dose: 40 mg Documented by: Ferrous Sulfate (Ferrous Sulfate 325 Mg Tab) 650 mg PO DAILY [facility] Stop: 07/10/21 08:59 Last Admin: 06/18/21 08:40 Dose: 650 mg Documented by: Fish Oil ([place]-3 (Purified Fish Oil) 1 Gm Cap) 2 gm PO QAM [facility] Stop: 07/10/21 08:59 Last Admin: 06/18/21 08:42 Dose: 2 gm Documented by: Glucagon (Glucagon For Inj 1 Mg Vial) 1 mg SQ UD PRN; Protocol PRN Reason: Hypoglycemia Protocol Stop: 07/09/21 22:05 Glucose (Glucose 10 Tabs/Tube) 4 - 8 tabs PO UD PRN; Protocol PRN Reason: Hypoglycemia Protocol Stop: 07/09/21 22:05 Glucose (Glucose 40% Gel 15 Gm Tube) 15 - 30 gm PO UD PRN; Protocol PRN Reason: Hypoglycemia Protocol Stop: 07/09/21 22:05 Guaifenesin (Guaifenesin 600 Mg Tabcr) 600 mg PO Q12 [facility] Stop: 07/17/21 11:59 Last Admin: 06/17/21 20:06 Dose: 600 mg Documented by: Dexamethasone 6 mg/ Syringe 1.5 mls @ 1 mls/min IV DAILY [facility] Stop: 06/20/21 08:59 Last Admin: 06/18/21 08:38 Dose: 1 mls/min Documented by: Insulin Aspart (Insulin Aspart 100 Units/Ml Vial) 0 units SC ACHS [facility]; Protocol Stop: 07/16/21 20:59 Last Admin: 06/18/21 08:51 Dose: 15 units Documented by: Insulin Glargine (Insulin Glargine Solostar 100 Units/Ml 3 Ml Pen) 15 units SC HS [facility]; Protocol Stop: 07/15/21 20:59 Last Admin: 06/17/21 21:06 Dose: 15 units Documented by: Insulin Human NPH (Insulin Human Nph) 40 units SC DAILY [facility]; Protocol Stop: 07/11/21 08:59 Last Admin: 06/18/21 08:49 Dose: 40 units Documented by: Lactobacillus Acidoph/Casei/Rhamnos (Advanced Probiotic 1250 Mg Capsule) 2 cap PO DAILY [facility] Stop: 07/17/21 11:14 Last Admin: 06/18/21 08:42 Dose: 2 cap Documented by: Lorazepam (Lorazepam 0.5 Mg Tab) 0.5 mg PO TID PRN PRN Reason: Anxiety Stop: 07/09/21 22:05 Magnesium Chloride (Magnesium Chloride 64mg Delayed Rel Tab) 128 mg PO QAM [facility] Stop: 07/10/21 08:59 Last Admin: 06/18/21 08:43 Dose: 128 mg Documented by: Magnesium Hydroxide (Magnesium Hydroxide Susp 30 Ml Udc) 30 ml PO Q12H PRN PRN Reason: Constipation Stop: 07/09/21 22:05 Miconazole Nitrate (Miconazole Nitrate Powder 43 Gm) 1 appln EXT PRN PRN PRN Reason: Affected Skin Folds Stop: 07/10/21 02:22 Last Admin: 06/10/21 05:56 Dose: 1 appln Documented by: Miscellaneous (Carbohydrates For Hypoglycemia ) 15 - 30 gm PO UD PRN PRN Reason: Hypoglycemia Protocol Stop: 07/09/21 22:05 Miscellaneous Information (Pharmacy Glycemic Mgmt Consult) 1 ea N/A UD PRN; Protocol PRN Reason: Consult Stop: 07/09/21 22:05 Ondansetron HCl (Ondansetron Inj 2 Mg/Ml 2 Ml Vial) 4 mg IV Q6H PRN PRN Reason: Nausea Stop: 07/09/21 22:05 Pantoprazole Sodium (Pantoprazole 40 Mg Tab) 40 mg PO QAM [facility]; Protocol Stop: 07/10/21 08:59 Last Admin: 06/18/21 08:43 Dose: 40 mg Documented by: Polyethylene Glycol (Polyethylene (Miralax) 17 Gm Pack) 17 gm PO DAILY PRN PRN Reason: Constipation Stop: 07/09/21 22:05 Pregabalin (Pregabalin 150 Mg Cap) 150 mg PO BID [facility] Stop: 07/09/21 22:59 Last Admin: 06/18/21 09:06 Dose: 150 mg Documented by: Vitamin B Complex (Vitamin B Complex Tab) 1 tab PO DAILY [facility] Stop: 07/10/21 08:59 Last Admin: 06/18/21 08:43 Dose: 1 tab Documented by: Zolpidem Tartrate (Zolpidem Tartrate 5 Mg Tab) 5 mg PO HS PRN PRN Reason: Sleep Stop: 07/09/21 22:05 Last Admin: 06/13/21 21:06 Dose: 5 mg Documented by:
[2021-06-18] MEDS: guaiFENesin 600 MG TABCR PO SCH (10:13)
--- NOTE | 2021-06-18 13:11 | Discharge Summary ---
Date of Service June 18, 2021 Admission HPI Per Admitting Provider This is a 80 y/o female with a PMH of HTN, dyslipidemia, DM II, diabetic polyneuropathy, GERD, CKD III, CAD, diastolic dysfunction, LVH, recent left fibular fracture, peripheral neuropathy, recent thrombosis of left EJ, CKD 3, thyroid nodule, dementia, and anxiety who presents to the EDsecondary to weakness, fatigue and slurred speech x2 to 3 days. Of significance patient recently hospitalized 05/24-05/25 secondary to ambulatory dysfunction and falls at home. brought patient to ED at that time due to unable to take care of her. She underwent MRI brain, CT head and neck which showed no acute findin gs. She was seen and evaluated by PT and transferred to acute rehab. She presents today via ambulance with reports of becoming increasingly weak over the past few days, fatigue and drowsy. At approximately 9:30 AM after she awoke she reported speech being a little slurred. No recent falls. She is vaccinated for Covid and received her booster 2 weeks ago. Also reported is a new cough. Known sick contacts with who also has similar symptoms. Did well at rehab and was discharged to home the day before [facility]. She did gather at [facility] with [facility] family members. Gets around with wheelchair and occasionally with walker. Over past few days she had cough, weak and she is requiring a lot more support than when d/c from rehab. Today she is more drowsy. notes when she gets sick her speech gets sluggish. History provided mostly by . Denies f/c/s, chest pain, sob at rest, n/v/d, change in bowel or bladder habits. ROS slightly unreliable given cognition. Overall diet has been poor over last few days. In ED patient was hypoxic at 83% requiring 4 L of oxygen. Chest x-ray concerning for pneumonia. Lab work notable for H&H 10.9 and 35, dimer 2,810, bun 22, cr 1.19, glucose 184, LA 1.4, trop 0.112, procal 0.22, sars cov2 +. She received IV dexamethasone oral doxycycline and full dose ASA. Admission Exam Per Admitting Provider Constitutional: WD/WN, vitals as above, NAD, sitting up in bed, drowsy, speaking slowly, appears weak, ill appearing, alert and oriented x 1 Head: Normocephalic, Atraumatic Eyes: PERRL, conjunctivae normal, anicteric sclerae ENMT: external ear and nose normal, oropharynx normal Neck: trachea midline, no thyromegaly normal visual inspection Respiratory: on 4L of oxygen, normal respiratory effort, lungs clear to auscultation, decreased breath sounds, no wheeze, rales, rhonchi. Normal insp/exp effort, no accessory muscle use Cardiovascular: RRR, no murmur, no edema Vessels: no JVD or carotid bruit Chest: normal inspection of chest Abdomen: normal bowel sounds, soft, nontender, no hepatosplenomegaly Musculoskeletal: no cyanosis or clubbing, AROM x4 , Ankle brace on Left Skin: no rashes, warm and dry normal turgor Neurologic: PERRL, EOMI, accommodation nl, no face palsy, no dysarthria CN's II-XI intact bilaterally and moves all extremities Psychiatric: A+Ox1, euthymic affect Lymphatic: no cervical or axillary lymphadenopathy : deferred Principal Diagnosis COVID-19 pneumonia Hypoxia Elevated troponin Diabetes mellitus type 2 CAD Dementia Discharge Exam General Appearance: obese F, No distress Head: normocephalic, Atraumatic Eyes: normal inspection, EOMI Neck: supple Respiratory/Chest: Decreased breath sounds, + mild rhonchi, no wheezing Cardiovascular: S1, S2, No murmur, tachycardia Abdomen/GI:Soft, Non tender, Bowel sounds present Extremities/Musculoskeletal:normal inspection, trace pedal edema, left ankle in brace Neurologic/Psych:AAO, speech fluent, no facial symmetry, moves extremities Skin: normal color, warm Discharge Data Allergies Allergy/AdvReac Type Severity Reaction Status Date / Time oxycodone AdvReac Intermediate OVER Verified 06/09/21 15:46 SEDATED Consultations 06/09/21 17:26 ED Decision to Admit Stat Ordered Studies 06/09/21 15:08 CT head/brain wo con Stat Impression: 1. No acute infarct or intracranial hemorrhage. 2. No change in the mild atrophy and microvascular ischemic changes. 3. There is a punctate hypodensity within the right cerebellar hemisphere. This is technically age indeterminate but favors an old lacunar infarct. 06/09/21 18:06 CT angio chest PE protocol Stat IMPRESSION: 1. No pulmonary emboli identified although segmental and subsegmental pulmonary arteries suboptimally assessed due to significant respiratory motion artifact. 2. Bilateral lobe airspace opacities, greater on the left. The findings favor pneumonia or aspiration pneumonitis. Atelectasis could appear similar. Follow-up chest CT in 3 months to ensure resolution is recommended. 3. Basilar and peripheral predominant subpleural cystic change/honeycombing which suggests interstitial lung disease. 4. Moderate cardiomegaly and coronary artery calcification. Hospital Course (1) Weakness: (2) Non-ST elevation [place] (NSTEMI): (3) 2019 novel coronavirus-infected pneumonia (NCIP): (4) Hypoxia: (5) Diabetes mellitus, type II: (6) CAD (coronary artery disease): (7) Dementia: 80 yo f F w/ HTN, dyslipidemia, DM II, diabetic polyneuropathy, GERD, CKD III, CAD, diastolic dysfunction, LVH, recent left fibular fracture, peripheral neuropathy, recent thrombosis of left EJ, CKD 3, thyroid nodule, dementia, and anxiety who presentssecondary to weakness, fatigue and slurred speech x2 to 3 days. COVID-19 pneumonia Hypoxia --CTA:No pulmonary emboli identified although segmental and subsegmental pulmonary arteries suboptimally assessed due to significant respiratory motion artifact. Bilateral lobe airspace opacities, greater on the left. The findings favor pneumonia or aspiration pneumonitis. Atelectasis could appear similar. Follow-up chest CT in 3 months to ensure resolution is recommended. Basilar and peripheral predominant subpleural cystic change/honeycombing which suggests interstitial lung disease. Moderate cardiomegaly and coronary artery calcification. Continue dexamethasone, Remdesivir finished Day#5 on 06/13 Pulmonary toilet Encourage to prone Lasix PRN Saturating well on room air Covid 19 test negative on 06/14 and on 06/16 Plan to discharge to rehab facility 06/17 -patient developed R -sided chest pain, and coughed up green sputum Currently without any pain, will obtain chest x-ray procalcitonin, CBC Continues to breathe without difficulty, she is on room air, 97% CXR - Faint lower lung predominant airspace opacities which may represent atelectasis, pneumonia, and/or aspiration. procalcitonin - negative 06/18 -cannot obtain sputum culture, patient was not having productive cough today Continues to be on room air, comfortable Started empiric antibiotic yesterday, will continue for now, flutter valve, guaifenesin cont. to monitor Will need follow up CT chest in 3 months as above Elevated d-dimer Troponin elevation likely secondary to COVID Troponin trended down CTA showed no PE CAD Patient denies chest pain troponin trended own Continue home meds DM II Last A1c 7.0 on 05/25/2021 Lantus/NovoLog per protocol Hold home medications Consult glycemic pharmacy in setting of dexamethasone use Dementia mood stable, pt is very pleasant and cooperative Total Time Total Time Spent Total Time Spent (In Minutes): 40 Discharge Plan Discharge Items Patient Disposition: Transfer Inpatient Rehab Fac Reason For Visit: COVID PNA, ELEVATED TROP Discharge Diagnosis: COVID-19 pneumonia Hypoxia Elevated troponin Diabetes mellitus type 2 CAD Dementia Activity: Per Instructions section Non-emergency contact: Primary Care Provider Call non-emergency contact if: you have any medication questions and your symptoms worsen Follow-up/Referrals: [facility] MD [Primary Care Provider] - Diet: Carb Consistent or DM2 Diet Texture: Easy to Chew Addtl Attending Provider Instructions: Follow-up with primary care physician within 1 week. You were started on a medication, amlodipine to control blood pressure. Monitor your blood pressure and have your primary care doctor adjust medication as needed. You developed cough yesterday and you were started on an empiric antibiotic, Augmentin. Take it for next 6 days, with guaifenesin. Also use your flutter valve for next week. You will need to have a follow-up image of your chest/lungs done, your primary care physician will order the test. Pending Studies at Discharge: No Stand-Alone Forms: [facility] Skilled Items Patient informed of condition?: Yes DNR: No Discharge Level of Care: Acute rehab Communicable Disease: No Discharge Prognosis: Stable Lines: None Urinary Catheter: No Medications and DC Order Prescriptions: New amoxicillin-pot clavulanate [Augmentin] 875-125 mg Tablet 1 tab PO BIDM 6 Days Qty: 12 RF: 0 Advanced Probiotic 625 mg (10 billion cell) Capsule 2 cap PO DAILY 5 Days Qty: 10 RF: 0 guaifenesin [Mucinex] 600 mg Tablet Extended Release 12hr 600 mg PO Q12 5 Days Qty: 10 RF: 0 amlodipine [Norvasc] 5 mg Tablet 2.5 mg PO QAM 14 Days Qty: 7 RF: 0 Continued omega-3 fatty acids 1,000 mg Capsule 2,000 mg PO QAM Qty: 0 RF: 0 omeprazole 20 mg Tablet,Delayed Release (Dr/Ec) 20 mg PO QAM Qty: 0 RF: 0 coenzyme Q10 100 mg Capsule 100 mg PO QAM Qty: 0 RF: 0 atorvastatin 40 mg Tablet 40 mg PO HS Qty: 0 RF: 0 dicyclomine 10 mg Capsule 10 mg PO QID Qty: 0 RF: 0 Systane Ultra 0.4-0.3 % Drops 1 drp OPHTHALMIC (EYE) QID PRN (Reason: Dry Eye(S)) RF: 0 carvedilol 12.5 mg tablet 6.25 mg PO BID RF: 0 nystatin 100,000 unit/gram Powder 1 applic TOPICAL QID PRN (Reason: skin rash) RF: 0 magnesium chloride 64 mg magnesium Tablet 128 mg PO QAM RF: 0 aspirin 325 mg Tablet 650 mg PO BID PRN (Reason: Pain) RF: 0 cyanocobalamin (vitamin B-12) [Vitamin B-12] 1,000 mcg Tablet 500 mcg PO DAILY RF: 0 lorazepam 0.5 mg tablet 0.5 mg PO TID PRN (Reason: Anxiety) RF: 0 pregabalin 150 mg capsule 150 mg PO BID RF: 0 repaglinide 0.5 mg tablet 0.5 mg PO TIDM RF: 0 valerian root 100 mg Capsule 100 mg PO DAILY PRN (Reason: Insomnia) RF: 0 docusate sodium 100 mg Capsule 100 mg PO BID PRN (Reason: Constipation) RF: 0 camphor-methyl salicyl-menthol Adhesive Patch,Medicated 1 patch TOPICAL DAILY PRN (Reason: Pain) RF: 0 metformin 750 mg tablet extended release 24 hr 750 mg PO BID RF: 0 vitamin B complex Tablet 1 tab PO DAILY RF: 0 ferrous sulfate 325 mg (65 mg iron) tablet,delayed release (DR/EC) 650 mg PO DAILY RF: 0 furosemide 20 mg tablet 20 mg PO DAILY RF: 0 Discharge Orders: Discharge Order (Routine); Ordered 06/18/21 Ordered By: Mono Locke Admission Data Admit Date/Time: 06/09/21 17:50 Attending Provider: Mono Locke Admit Provider: Ezekwem,Zhao I. Primary Care Provider: [facility] Other Providers: Cece Mcknight I. ; [facility] ; Segundo Hernadez
--- NOTE | 2021-06-29 15:21 | Coding Query ---
To promote full compliance with coding requirements relating to patient care, provider participation is requested in all cases of cor[facility] uncertainty. Please assist us with the question(s) below: Coding Question(s): The diagnosis below was documented in the H&P, then subsequently fell off all further documentation. Please indicate if it is still a possible diagnosis or ruled out. Physician's Response(s): ACUTE HYPOXIC RESPIRATORY FAILURE (regarding the acute respiratory failure documented only on H&P) ( x ) Diagnosed and POA ( ) Diagnosed and not POA ( ) Ruled out ( ) Other (please specify) MTDD
--- NOTE | 2021-06-29 15:24 | Coding Query ---
CODING QUERY To promote full compliance with coding requirements relating to patient care, provider participation is requested in all cases of sales engagement executive uncertainty. Please assist us with the question(s) below: Coding Question(s): There is documentation of a history of [place] and there is documentation of elevation of troponin on this record and there is documentation of NSTEMI and it is not clear if there was possible acute NSTEMI on this admission. Please specify below, in your clinical opinion. ( ) Possible Acute NSTEMI on this admission ( ) Elevated Troponin with a History of [place] ( x) Other: Please Specify____elevated troponin secondary to covid, demand ischemia, not NSTEMI Physician's Response(s): Thank you Candice Ryan Principal Diagnosis: "that condition established after study, to be chiefly responsible for occasioning the admission of the patient to the hospital for care." Co-Existing Principal Diagnosis: "when two or more diagnoses equally meet the criteria for principal diagnosis as determined by the circumstances of admission, diagnostic work up, and/or therapy provided, and the Alphabetic Index, Tabular List, or another coding guideline does not provide sequencing direction, any one of the diagnoses may be sequenced first." "When the physician has documented what appears to be a current diagnosis in the body of the record, but has not included the diagnosis in the final diagnostic statement, the physician should be asked whether the diagnosis should be added." (Source [facility]oding [facility] 2 QTR90. p3-4) [id number]
== END 2021-06-18 16:38 | DRG 177 ==
LOC: ED 15:15 → EDINP 17:50 → SUATTDRO 17:50 → 2W 21:54

== ENCOUNTER 2021-09-24 06:16 | Inpatient (IN) ==
[2021-09-24] MEDS ORDERED: SODIUM CHLORIDE 0.9% 1000ML 1,000 ML IV ONE (06:40)
[2021-09-24] MEDS ORDERED: PIPERACILL/TAZOBAC CONSULT ACTIVE PRN ×2 (06:42→13:19)
[2021-09-24] MEDS ORDERED: PIPERACILLIN/TAZOBACTAM 4.5 GM/120 ML BAG IV ONE (06:42)
--- NOTE | 2021-09-24 06:45 | Emergency Department Note ---
Impression & Plan Fall, Abscess, Cellulitis, Anemia ED Provider Note NAME: SHIRLEY TREVIZO AGE: 80 SEX: F : 1940 ARRIVES VIA: Ambulance INFORMANT: Patient ED PROVIDER(S): Ajay Live DO CHIEF COMPLAINT: fall right groin pain HPI: Patient is a 80-year-old female who presents to the ER following mechanical fall off the toilet. She notes her helped her get onto the toilet. She was gradually sliding off and fell onto her bottom. She did not hit her head or neck. She is complaining of right groin pain which she believes started at the end of last week. She denies any headache or change in vision. She did not pass out. She did not hit her head. No chest pain or shortness of breath. No extremity pain with the exception of that right groin which has been draining. Denies any urinary symptoms. No other exacerbating or remitting factors. Pain i s sharp and stabbing in a 10 at 10 when she touches it in her right groin. ROS: See above HPI for pertinent positives & negatives. A total of 10 systems reviewed and were otherwise negative. PAST MEDICAL HISTORY:See Below PAST SURGICAL HISTORY:See Below FAMILY HISTORY:See Below SOCIAL HISTORY:See Below HOME MEDICATIONS:See Below ALLERGIES:See Below VITALS:See Below PHYSICAL EXAMINATION: GENERAL: alert, well appearing, well nourished, no distress, non-toxic HEAD: normal cephalic, atraumatic EYE EXAM: normal conjunctiva, PERRL and EOM's grossly intact OROPHARYNX: no exudate, no erythema, lips, buccal mucosa, and tongue normal and mucous membranes are moist NECK: supple, no nuchal rigidity, no adenopathy, non-tender CHEST: stable to compression anteriorly and posteriorly LUNGS: clear to auscultation. Normal chest wall mechanics HEART: no murmurs, S1 normal and S2 normal ABDOMEN: abdomen soft, non-tender, normo-active bowel sounds, no masses, no rebound or guarding. PELVIS: stable to compression anteriorly and posteriorly BACK: Back is symmetrical on inspection and there is no deformity, no midline tenderness, no CVA tenderness. UPPER EXTREMITIES: full active and passive range of motion of all joints without tenderness to palpation LOWER EXTREMITIES: full active and passive range of motion of all joints without tenderness to palpation. Groin with large area of induration within the inguinal canal and a draining abscess draining green/coagulated blood. NEURO EXAM: Normal sensorium, cranial nerves II-XII grossly intact, normal speech, no gross weakness of arms, no gross weakness of legs. GCS: 15. MEDICAL DECISION MAKING: Patient is a 80-year-old female who presents ER for above-stated complaint. IV was established blood was obtained. Labs show no significant leukocytosis. Mild anemia at 11.6. INR was unremarkable. BMP with mild hyponatremia 134. Lactate was normal at 1.8. LFTs bilirubin were unremarkable. Troponin was tactile but not positive at 0.03. UA was clean. Covid negative. CT abdomen pelvis shows cellulitis along the right groin. She is clear draining abscess well on the right leg. She is given vancomycin and Zosyn. She was updated bedside. Discussed with the as well. When she fell she did not hit her head or neck. She was discussed with the hospitalist for further evaluation Triage Nursing notes reviewed. Limited review of prior medical records performed Vital Signs: reviewed and remarkable for tachy hypoxic Differential diagnosis: Sepsis, UTI, pneumonia, metabolic, electrolyte abnormalities, cardiac sources, intracerebral event, toxicologic, neurologic, as well as other pathologies. ER treatment provided: See below Diagnostics interpreted by me: Cardiac Monitoring: An order was placed for continuous cardiac monitoring. The monitor shows a rate of 82 with sinus rhythm. Laboratory studies: As stated above and show below. Imaging studies: CT abdomen pelvis as described above Consultation(s): Hospitalist for further evaluation Ramona from the [facility] service Procedures: none Critical Care: None Past Med/Surg History Medical History Anxiety CAD (coronary artery disease) CKD (chronic kidney disease), stage III Dementia Diabetes mellitus, type II Diastolic dysfunction Dry eye syndrome Dyslipidemia GERD (gastroesophageal reflux disease) History of VA (myocardial infarction) Hypertension Kidney stones LVH (left ventricular hypertrophy) Osteoarthritis Peripheral neuropathy Surgical History History of appendectomy History of carpal tunnel release left History of cataract surgery RT/LEFT History of discectomy LUMBAR (TOTAL 2 LUMBAR DISCECTOMY) History of hysterectomy History of tooth extraction Hx of colonoscopy with polypectomy Hx of eye surgery LASER PROCEDURE S/P cystoscopy with ureteral stent placement 05/13/19 [facility] Family History Brother Family history of diabetes mellitus Other Cancer Heart disease Kidney disease Social History Smoking Status: Never smoker Tobacco Type: Cigarettes Second Hand Exposure: No; Hx Alcohol Use: No (Unknown) Hx Substance Use: No (Unknown) Preferred Language: Slovak Communication Ability: Effective Drum Attendant Required: No Beliefs That Will Affect Care: None marital status: Current Living Situation: Spouse current occupational status: retired Feels Safe at Home: Yes Assistive Devices: Walker Allergies Allergies Allergy/AdvReac Type Severity Reaction Status Date / Time oxycodone AdvReac Intermediate OVER Verified 09/24/21 08:13 SEDATED Home Meds Home Medications Medication Instructions Recorded Confirmed omega-3 fatty acids 1,000 mg 2,000 mg PO QAM #0 10/15/13 09/24/21 capsule omeprazole 20 mg tablet,delayed 20 mg PO QAM #0 10/15/13 09/24/21 release coenzyme Q10 100 mg capsule 100 mg PO QAM #0 01/04/16 09/24/21 atorvastatin 40 mg tablet 40 mg PO HS #0 04/09/17 09/24/21 dicyclomine 10 mg capsule 10 mg PO TID #0 04/09/17 09/24/21 peg 400-propylene glycol 0.4 %-0.3 1 drp OPHTHALMIC (EYE) QID PRN 05/12/19 09/24/21 % eye drops (Systane Ultra) vitamin B complex 1 tab PO QAM 09/21/20 09/24/21 nystatin 100,000 unit/gram topical 1 applic TOPICAL QID PRN 10/10/20 09/24/21 powder cyanocobalamin (vitamin B-12) 500 mcg PO QAM 05/24/21 09/24/21 1,000 mcg tablet (Vitamin B-12) lorazepam 0.5 mg tablet 0.5 mg PO TID PRN 05/24/21 09/24/21 metformin 750 mg tablet,extended 750 mg PO BIDM 11/18/21 03/21/22 release 24 hr pregabalin 150 mg capsule 150 mg PO BID 05/24/21 09/24/21 repaglinide 0.5 mg tablet 0.5 mg PO TIDM 05/24/21 09/24/21 valerian root 100 mg capsule 100 mg PO QAM 05/24/21 09/24/21 wongryx-lrvmzmrhjhvhp-iyocwhjw 250 2 tab PO Q6H PRN 09/24/21 09/24/21 mg-250 mg-65 mg tablet (Excedrin Extra Strength) hydrochlorothiazide 25 mg tablet 25 mg PO QAM 09/24/21 09/24/21 magnesium 250 mg tablet 250 mg PO QAM 09/24/21 09/24/21 sennosides 25 mg tablet (Ex-Lax 25 mg PO DAILY PRN 09/24/21 09/24/21 Maximum Strength) sulfamethoxazole 800 1 tab PO BIDM 09/24/21 09/24/21 mg-trimethoprim 160 mg tablet tramadol 50 mg tablet 50 mg PO Q6H PRN 09/24/21 09/24/21 Results & Data (ED) Vital Signs Vital Signs - 24 hr 09/24/21 06:38 09/24/21 06:46 09/24/21 06:47 Temperature 37.5 C Temperature Source Oral Pulse Rate 128 H 122 H Pulse Rate [Finger] 122 H Pulse Rhythm [Finger] Pulse Strength [Finger] Respiratory Rate 22 22 22 Respiratory Effort / Characteristics Non-Labored Spontaneous Non-Labored Spontaneous Respiratory Depth Normal Normal Respiratory Pattern Blood Pressure 143/77 H Blood Pressure [Right Arm] 143/77 H Blood Pressure Mean 99 Blood Pressure Mean [Right Arm] 99 Blood Pressure Position Lying Blood Pressure Position [Right Arm] Lying Pulse Oximetry 91 91 91 Oxygen Delivery Method Room Air Room Air Room Air Oxygen Flow Rate Sepsis Recent Fever Within 48 Hours No Sepsis New/Unexplained Change in Mental Status No Sepsis Action Taken by Nursing Physician Notified Oxygen Flow Rate - Titration Pulse Oximetry Post Tiitration 09/24/21 07:40 09/24/21 08:55 09/24/21 09:03 Temperature Temperature Source Pulse Rate Pulse Rate [Finger] 97 H 94 H Pulse Rhythm [Finger] Regular Regular Pulse Strength [Finger] Normal Normal Respiratory Rate 22 20 Respiratory Effort / Characteristics Non-Labored Spontaneous Non-Labored Spontaneous Respiratory Depth Normal Normal Respiratory Pattern Regular Regular Blood Pressure Blood Pressure [Right Arm] 124/63 120/84 Blood Pressure Mean Blood Pressure Mean [Right Arm] 83 96 Blood Pressure Position Blood Pressure Position [Right Arm] Lying Sitting Pulse Oximetry 99 89 L 97 Oxygen Delivery Method Nasal Cannula Room Air Nasal Cannula Nasal Cannula Oxygen Flow Rate 2 0 2 Sepsis Recent Fever Within 48 Hours Sepsis New/Unexplained Change in Mental Status Sepsis Action Taken by Nursing Oxygen Flow Rate - Titration 2 Pulse Oximetry Post Tiitration 98 09/24/21 10:25 09/24/21 12:00 Temperature Temperature Source Pulse Rate Pulse Rate [Finger] 88 85 Pulse Rhythm [Finger] Regular Pulse Strength [Finger] Normal Respiratory Rate 20 18 Respiratory Effort / Characteristics Non-Labored Spontaneous Respiratory Depth Normal Respiratory Pattern Regular Blood Pressure Blood Pressure [Right Arm] 107/73 123/64 Blood Pressure Mean Blood Pressure Mean [Right Arm] 84 83 Blood Pressure Position Blood Pressure Position [Right Arm] Sitting Pulse Oximetry 92 97 Oxygen Delivery Method Room Air Nasal Cannula Oxygen Flow Rate 2 Sepsis Recent Fever Within 48 Hours Sepsis New/Unexplained Change in Mental Status Sepsis Action Taken by Nursing Oxygen Flow Rate - Titration Pulse Oximetry Post Tiitration Laboratory Data Result diagrams: 09/24/21 06:33 09/24/21 06:33 Lab Results 09/24/21 09/24/21 09/24/21 Range/Units 06:33 06:33 06:33 WBC 10.64 (4.8-10.8) K/uL RBC 4.15 L (4.2-5.4) M/uL Hgb 11.6 L (12.0-16.0) g/dL Hct 36.8 L (37-47) % MCV 88.7 (80-100) fL MCH 28.0 (25-34) pg MCHC 31.5 L (32-36) g/dL RDW Std Deviation 53.6 H (36.4-46.3) fL RDW Coeff of Pia 16.3 H (11.5-14.5) % Plt Count 197 (130-400) K/uL MPV 10.3 (7.4-10.4) fL Immature Gran % (Auto) 0.3 % Neut % (Auto) 79.3 % Lymph % (Auto) 10.3 % Kern % (Auto) 8.7 % Eos % (Auto) 1.2 % Baso % (Auto) 0.2 % Neut # (Auto) 8.43 H (1.4-6.5) K/uL Lymph # (Auto) 1.10 L (1.2-3.4) K/uL Kern # (Auto) 0.93 H (0.11-0.59) K/uL Eos # (Auto) 0.13 (0-0.5) K/uL Baso # (Auto) 0.02 (0-0.2) K/uL Immature Gran # (Auto) 0.03 H (0.00-0.02) K/uL PT 10.9 (9.0-12.0) Seconds INR 1.0 (0.9-1.1) APTT 26.8 (21.0-31.0) Seconds PTT Ratio 1.0 Sodium 134 L (136-145) mmol/L Potassium 4.0 (3.5-5.1) mmol/L Chloride 98 (98-107) mmol/L Carbon Dioxide 27 (21-32) mmol/L Anion Gap 9 (3-11) BUN 22 (6-23) mg/dl Creatinine 1.34 H (0.6-1.2) mg/dl Est Cr Clr Drug Dosing 36.2 ml/min Est GFR ( Amer) 43.6 ml/min Est GFR (Non-Af Amer) 37.6 ml/min BUN/Creatinine Ratio 16.4 (10-20) Glucose 278 H (70-99(Fasting)) mg/dl Lactate (0.4-2.0) mmol/L Calcium 9.8 (8.5-10.1) mg/dl Magnesium 1.4 L (1.7-2.4) mg/dl Total Bilirubin 0.6 (0.2-1.0) mg/dl AST 15 (13-39) U/L ALT 19 (7-52) U/L Alkaline Phosphatase 70 (34-104) U/L Troponin I 0.03 (0-0.04) ng/ml Total Protein 7.3 (6.0-8.3) gm/dl Albumin 3.8 (3.4-5.0) gm/dl Globulin 3.5 (2.5-4.0) gm/dl Albumin/Globulin Ratio 1.1 (0.9-2) Procalcitonin (0-0.5) ng/ml Urine Color Urine Appearance (Clear) Urine pH (4.5-7.5) Ur Specific [employer] (1.000-1.030) Urine Protein (Negative) Urine Glucose (UA) (Negative) Urine Ketones (Negative) Urine Blood (Negative) Urine Nitrite (Negative) Urine Bilirubin (Negative) Urine Urobilinogen (Negative) Ur Leukocyte Esterase (Negative) Urine WBC (Auto) (0-5) /hpf Urine RBC (Auto) (0-4) /hpf U Hyaline Cast (Auto) (0-5) /lpf U Epithel Cells (Auto) (0-5) /lpf Urine Bacteria (Auto) (Negative) SARS-CoV-2, RNA, NAAT (NEGATIVE) 09/24/21 09/24/21 09/24/21 Range/Units 06:33 06:33 06:49 WBC (4.8-10.8) K/uL RBC (4.2-5.4) M/uL Hgb (12.0-16.0) g/dL Hct (37-47) % MCV (80-100) fL MCH (25-34) pg MCHC (32-36) g/dL RDW Std Deviation (36.4-46.3) fL RDW Coeff of Pia (11.5-14.5) % Plt Count (130-400) K/uL MPV (7.4-10.4) fL Immature Gran % (Auto) % Neut % (Auto) % Lymph % (Auto) % Kern % (Auto) % Eos % (Auto) % Baso % (Auto) % Neut # (Auto) (1.4-6.5) K/uL Lymph # (Auto) (1.2-3.4) K/uL Kern # (Auto) (0.11-0.59) K/uL Eos # (Auto) (0-0.5) K/uL Baso # (Auto) (0-0.2) K/uL Immature Gran # (Auto) (0.00-0.02) K/uL PT (9.0-12.0) Seconds INR (0.9-1.1) APTT (21.0-31.0) Seconds PTT Ratio Sodium (136-145) mmol/L Potassium (3.5-5.1) mmol/L Chloride (98-107) mmol/L Carbon Dioxide (21-32) mmol/L Anion Gap (3-11) BUN (6-23) mg/dl Creatinine (0.6-1.2) mg/dl Est Cr Clr Drug Dosing ml/min Est GFR ( Amer) ml/min Est GFR (Non-Af Amer) ml/min BUN/Creatinine Ratio (10-20) Glucose (70-99(Fasting)) mg/dl Lactate 1.8 (0.4-2.0) mmol/L Calcium (8.5-10.1) mg/dl Magnesium (1.7-2.4) mg/dl Total Bilirubin (0.2-1.0) mg/dl AST (13-39) U/L ALT (7-52) U/L Alkaline Phosphatase (34-104) U/L Troponin I (0-0.04) ng/ml Total Protein (6.0-8.3) gm/dl Albumin (3.4-5.0) gm/dl Globulin (2.5-4.0) gm/dl Albumin/Globulin Ratio (0.9-2) Procalcitonin 0.16 (0-0.5) ng/ml Urine Color Urine Appearance (Clear) Urine pH (4.5-7.5) Ur Specific [employer] (1.000-1.030) Urine Protein (Negative) Urine Glucose (UA) (Negative) Urine Ketones (Negative) Urine Blood (Negative) Urine Nitrite (Negative) Urine Bilirubin (Negative) Urine Urobilinogen (Negative) Ur Leukocyte Esterase (Negative) Urine WBC (Auto) (0-5) /hpf Urine RBC (Auto) (0-4) /hpf U Hyaline Cast (Auto) (0-5) /lpf U Epithel Cells (Auto) (0-5) /lpf Urine Bacteria (Auto) (Negative) SARS-CoV-2, RNA, NAAT NEGATIVE (NEGATIVE) 09/24/21 Range/Units 07:16 WBC (4.8-10.8) K/uL RBC (4.2-5.4) M/uL Hgb (12.0-16.0) g/dL Hct (37-47) % MCV (80-100) fL MCH (25-34) pg MCHC (32-36) g/dL RDW Std Deviation (36.4-46.3) fL RDW Coeff of Pia (11.5-14.5) % Plt Count (130-400) K/uL MPV (7.4-10.4) fL Immature Gran % (Auto) % Neut % (Auto) % Lymph % (Auto) % Kern % (Auto) % Eos % (Auto) % Baso % (Auto) % Neut # (Auto) (1.4-6.5) K/uL Lymph # (Auto) (1.2-3.4) K/uL Kern # (Auto) (0.11-0.59) K/uL Eos # (Auto) (0-0.5) K/uL Baso # (Auto) (0-0.2) K/uL Immature Gran # (Auto) (0.00-0.02) K/uL PT (9.0-12.0) Seconds INR (0.9-1.1) APTT (21.0-31.0) Seconds PTT Ratio Sodium (136-145) mmol/L Potassium (3.5-5.1) mmol/L Chloride (98-107) mmol/L Carbon Dioxide (21-32) mmol/L Anion Gap (3-11) BUN (6-23) mg/dl Creatinine (0.6-1.2) mg/dl Est Cr Clr Drug Dosing ml/min Est GFR ( Amer) ml/min Est GFR (Non-Af Amer) ml/min BUN/Creatinine Ratio (10-20) Glucose (70-99(Fasting)) mg/dl Lactate (0.4-2.0) mmol/L Calcium (8.5-10.1) mg/dl Magnesium (1.7-2.4) mg/dl Total Bilirubin (0.2-1.0) mg/dl AST (13-39) U/L ALT (7-52) U/L Alkaline Phosphatase (34-104) U/L Troponin I (0-0.04) ng/ml Total Protein (6.0-8.3) gm/dl Albumin (3.4-5.0) gm/dl Globulin (2.5-4.0) gm/dl Albumin/Globulin Ratio (0.9-2) Procalcitonin (0-0.5) ng/ml Urine Color Yellow Urine Appearance Clear (Clear) Urine pH 5.5 (4.5-7.5) Ur Specific [employer] 1.022 (1.000-1.030) Urine Protein 1+ H (Negative) Urine Glucose (UA) 2+ H (Negative) Urine Ketones Negative (Negative) Urine Blood Trace H (Negative) Urine Nitrite Negative (Negative) Urine Bilirubin Negative (Negative) Urine Urobilinogen Negative (Negative) Ur Leukocyte Esterase Negative (Negative) Urine WBC (Auto) 1-5 (0-5) /hpf Urine RBC (Auto) 5-10 H (0-4) /hpf U Hyaline Cast (Auto) 1-5 (0-5) /lpf U Epithel Cells (Auto) >30 H (0-5) /lpf Urine Bacteria (Auto) Negative (Negative) SARS-CoV-2, RNA, NAAT (NEGATIVE) Administered Medications Discontinued Medications Sodium Chloride (Nss 1000ml) 1,000 mls @ 999 mls/hr IV .Q1H1M ONE Stop: 09/24/21 07:40 Last Infusion: 09/24/21 07:52 Dose: 0 mls/hr Documented by: [id number] Admin: 09/24/21 06:52 Dose: 999 mls/hr Documented by: [id number] Piperacillin Sod/Tazobactam Sod (Zosyn) 4.5 gm in 120 mls @ 240 mls/hr IV NOW ONE Stop: 09/24/21 07:11 Last Infusion: 09/24/21 08:10 Dose: 0 mls/hr Documented by: [id number] Admin: 09/24/21 07:30 Dose: 240 mls/hr Documented by: [id number] Vancomycin HCl 1,750 mg/ (Sodium Chloride) 535 mls @ 200 mls/hr IV NOW ONE Stop: 09/24/21 11:55 Last Admin: 09/24/21 09:51 Dose: 200 mls/hr Documented by: [id number] Ioversol (Optiray 320 100ml) 95 ml IV ONCE ONE Stop: 09/24/21 08:35 Last Admin: 09/24/21 08:35 Dose: 95 ml Documented by: [id number] Magnesium Sulfate/Dextrose (Magnesium Sulfate 1gm / D5w Bag) Confirm Administered Dose 2 gm IV .STK-MED ONE Stop: 09/24/21 09:38 Last Admin: 09/24/21 09:52 Dose: 2 gm Documented by: [id number] Imaging Data Radiologist's Impression: Abdomen/Pelvis CT 09/24/21 06:40 CT abd pelvis IV con only CLINICAL HISTORY:. Right groin swelling. please get right groin/inguinal canal large absces COMPARISON STUDY: 05/09/2020 CT DOSE: 1209.54 mGy.cm TECHNIQUE: Standard CT of the Abdomen and Pelvis was performed with IV contrast. A dose lowering technique was utilized adhering to the principles of ALARA. Contrast Volume: Optiray 320, 95 ml. The patient did not receive oral contrast. FINDINGS: Lung base: Minimal atelectasis versus scarring is seen at the lung bases posteriorly. There is an essentially stable left lower lobe pulmonary nodule. Abdominal cavity: There is no evidence for abdominal mass, adenopathy or ascites. Liver: There is homogeneous attenuation of the liver parenchyma. There is no evidence for enhancing mass lesion. There is again evidence for hepatomegaly. Spleen: There is homogeneous attenuation of the splenic parenchyma. There is no enhancing mass lesion. Pancreas: There is homogeneous attenuation of the pancreatic parenchyma. There is no evidence for mass lesion or peripancreatic fluid collection. Gall Bladder: The gallbladder is well distended with no evidence for intraluminal calculi, wall thickening or pericholecystic edema. Adrenal glands: The adrenal glands are normal in size and attenuation. There is no evidence for enhancing mass lesion. Kidneys: There is homogeneous attenuation of the renal parenchyma bilaterally. There is no evidence for renal calculus or hydronephrosis. There is no evidence for enhancing mass. 1 cm left renal cyst is present. Bowel: There is a small hiatal hernia. The bowel loops are normally placed within the abdomen and pelvis without evidence for dilatation or obstruction. There is no evidence for mass lesion. There is extensive diverticulosis without evidence for diverticulitis. There are no inflammatory changes present. There is no evidence for free air. The appendix is absent. Bladder: Hernandez catheter is present within the bladder. : There is no evidence for pelvic mass or adenopathy. There is no evidence for pelvic ascites. The patient is status post hysterectomy. Vasculature: There is no evidence for aneurysmal dilatation of the abdominal aorta. Extensive atherosclerotic calcification is present. Osseous structures: There is no acute osseous pathology. Degenerative changes are seen within the spine. Soft tissues of the groin: There is asymmetric subcutaneous edematous changes present involving the right groin when compared to the left. However, no focal fluid collection or enhancing abscess is seen. The findings are most characteristic of cellulitis. Skin thickening is also present. IMPRESSION: 1. No acute intra-abdominal or pelvic abnormality. 2. Cellulitis involving the right groin with no evidence for focal enhancing fluid collection or definite abscess. 3. Extensive diverticulosis without evidence for diverticulitis. 4. Additional nonacute findings are delineated above. ACT 112: Negative or not required by law. Electronically signed by: Alejandro Rainey M.D. 09/24/2021 9:11 AM Chest X-Ray 09/24/21 06:40 XR chest 1V portable CLINICAL HISTORY: SEPSIS. COMPARISON STUDY: 06/17/2021 TECHNIQUE: 1 view of the chest FINDINGS: Single frontal view of the chest demonstrates the cardiomediastinal silhouette to be within normal limits. There is a decreased inspiratory effort with elevation of the hemidiaphragms, right greater than left and crowding of the bronchovascular markings at the lung bases and centrally. The lungs are clear of alveolar opacities. There is no evidence for pleural effusion. There is no evidence for vascular congestion. There is no acute osseous pathology. IMPRESSION: 1. . There is a decreased inspiratory effort with otherwise no acute chest disease. ACT 112: Negative or not required by law. Electronically signed by: Alejandro Rainey M.D. 09/24/2021 7:23 AM Discharge Plan Visit Data Chief Complaint: Fall Stated Complaint: FALL/WEAKNESS ED Provider: Ajay Live Discharge Problem: Fall, Abscess, Cellulitis, Anemia Discharge Instructions Interventions: ED Discharge Assessment Last Done: 09/24/21 12:27 Forms Stand Alone Forms: [facility], [facility] Prescriptions Prescriptions: No Action omega-3 fatty acids 1,000 mg Capsule 2,000 mg PO QAM Qty: 0 RF: 0 omeprazole 20 mg Tablet,Delayed Release (Dr/Ec) 20 mg PO QAM Qty: 0 RF: 0 coenzyme Q10 100 mg Capsule 100 mg PO QAM Qty: 0 RF: 0 atorvastatin 40 mg Tablet 40 mg PO HS Qty: 0 RF: 0 dicyclomine 10 mg Capsule 10 mg PO TID Qty: 0 RF: 0 Systane Ultra 0.4-0.3 % Drops 1 drp OPHTHALMIC (EYE) QID PRN (Reason: Dry Eye(S)) RF: 0 nystatin 100,000 unit/gram Powder 1 applic TOPICAL QID PRN (Reason: skin rash) RF: 0 cyanocobalamin (vitamin B-12) [Vitamin B-12] 1,000 mcg Tablet 500 mcg PO QAM RF: 0 lorazepam 0.5 mg tablet 0.5 mg PO TID PRN (Reason: Anxiety) RF: 0 pregabalin 150 mg capsule 150 mg PO BID RF: 0 repaglinide 0.5 mg tablet 0.5 mg PO TIDM RF: 0 valerian root 100 mg Capsule 100 mg PO QAM RF: 0 metformin 750 mg tablet extended release 24 hr 750 mg PO BIDM RF: 0 sulfamethoxazole-trimethoprim 800-160 mg tablet 1 tab PO BIDM RF: 0 tramadol 50 mg tablet 50 mg PO Q6H PRN (Reason: Pain) RF: 0 magnesium 250 mg Tablet 250 mg PO QAM RF: 0 hydrochlorothiazide 25 mg tablet 25 mg PO QAM RF: 0 Ex-Lax Maximum Strength 25 mg Tablet 25 mg PO DAILY PRN (Reason: Constipation) RF: 0 Excedrin Extra Strength 250-250-65 mg Tablet 2 tab PO Q6H PRN (Reason: Pain) RF: 0 vitamin B complex Tablet 1 tab PO QAM RF: 0 Referrals Referrals: [facility] MD [Primary Care Provider] - Discharge Problem: Fall Qualifiers: Encounter type: initial encounter Qualified Code(s): W19.XXXA - Unspecified fall, initial encounter Cellulitis Qualifiers: Site of cellulitis: unspecified site Qualified Code(s): L03.90 - Cellulitis, unspecified Anemia Qualifiers: Anemia type: unspecified type Qualified Code(s): D64.9 - Anemia, unspecified
[2021-09-24 06:51] LABS: Basophils # (auto) 0.02 K/uL (0-0.2); Basophils % (auto) 0.2 %; Eosinophils # (auto) 0.13 K/uL (0-0.5); Eosinophils % (auto) 1.2 %; Hematocrit (blood only) 36.8 % (37-47); Hemoglobin 11.6 g/dL (12.0-16.0); Immature Granulocytes # (auto) 0.03 K/uL (0.00-0.02); Immature Granulocytes % (auto) 0.3 %; Lymphocytes % (auto) 10.3 %; Mean Corpuscular Hgb Conc 31.5 g/dL (32-36); Mean Corpuscular Volume 88.7 fL (80-100); Mean Platelet Volume 10.3 fL (7.4-10.4); Monocytes # (auto) 0.93 K/uL (0.11-0.59); Monocytes % (auto) 8.7 %; Neutrophils # (auto) 8.43 K/uL (1.4-6.5); Neutrophils % (auto) 79.3 %; Platelet Count 197 K/uL (130-400); RDW Coefficient of Variation 16.3 % (11.5-14.5); RDW Standard Deviation 53.6 fL (36.4-46.3); Red Blood Count 4.15 M/uL (4.2-5.4); White Blood Count 10.64 K/uL (4.8-10.8)
[2021-09-24 07:10] LABS: Partial Thromboplastin Time 26.8 Seconds (21.0-31.0); Prothrombin Time 10.9 Seconds (9.0-12.0)
[2021-09-24 07:11] LABS: Albumin Globulin Ratio 1.1 (0.9-2); Albumin Level 3.8 gm/dl (3.4-5.0); BUN Creatinine Ratio 16.4 (10-20); Bilirubin,Total 0.6 mg/dl (0.2-1.0); Calcium 9.8 mg/dl (8.5-10.1); Creatinine Clr Calc Pharmacy 36.2 ml/min; Est GFR (African American) 43.6 ml/min; Est GFR (Non-African American) 37.6 ml/min; Globulin 3.5 gm/dl (2.5-4.0); Magnesium 1.4 mg/dl (1.7-2.4); Total Protein 7.3 gm/dl (6.0-8.3)
[2021-09-24 07:14] LABS: Troponin I 0.03 ng/ml (0-0.04)
--- NOTE | 2021-09-24 07:24 | XRay Report ---
XR chest 1V portable CLINICAL HISTORY: SEPSIS. COMPARISON STUDY: 06/17/2021 TECHNIQUE: 1 view of the chest FINDINGS: Single frontal view of the chest demonstrates the cardiomediastinal silhouette to be within normal li mits. There is a decreased inspiratory effort with elevation of the hemidiaphragms, right greater trevor n left and crowding of the bronchovascular markings at the lung bases and centrally. The lungs are cl ear of alveolar opacities. There is no evidence for pleural effusion. There is no evidence for vascul ar congestion. There is no acute osseous pathology. IMPRESSION: 1. . There is a decreased inspiratory effort with otherwise no acute chest disease. ACT 112: Negative or not required by law. Electronically signed by: Alejandro Rainey M.D. 09/24/2021 7:23 AM
[2021-09-24 07:41] LABS: Appearance Urine Clear (Clear); Bacteria Urine Automated Negative (Negative); Bilirubin Urine Negative (Negative); Blood Urine Trace (Negative); Color Urine Yellow; Epithelial Cell Urine Auto >30 /lpf (0-5); Glucose Urine UA 2+ (Negative); Ketones Urine Negative (Negative); Leukocyte Esterase Urine Negative (Negative); Nitrite Urine Negative (Negative); Protein Urine 1+ (Negative); Specific Gravity Urine 1.022 (1.000-1.030); Urobilinogen Urine Negative (Negative); pH Urine 5.5 (4.5-7.5)
[2021-09-24] MEDS ORDERED: OPTIRAY 320 100ml IV ONE (08:34)
--- NOTE | 2021-09-24 08:51 | Electrocardiogram Report ---
Test Reason : Blood Pressure : / mmHG Vent. Rate : 101 BPM Atrial Rate : 101 BPM P-R Int : 146 ms QRS Dur : 076 ms QT Int : 344 ms P-R-T Axes : 066 -13 071 degrees QTc Int : 446 ms Sinus tachycardia Low voltage QRS Nonspecific T wave abnormality Abnormal ECG When compared with ECG of 09-JUN-2021 15:30, T wave inversion no longer evident in Anterolateral leads Confirmed by Palomo Partida ([id number] on 09/24/2021 8:50:49 AM Referred By: REFERRED SELF Confirmed By:Raul Partida
--- NOTE | 2021-09-24 09:13 | CT Scan Report ---
CT abd pelvis IV con only CLINICAL HISTORY:. Right groin swelling. please get right groin/inguinal canal large absces COMPARISON STUDY: 05/09/2020 CT DOSE: 1209.54 mGy.cm TECHNIQUE: Standard CT of the Abdomen and Pelvis was performed with IV contrast. A dose lowering laurie hnique was utilized adhering to the principles of ALARA. Contrast Volume: Optiray 320, 95 ml. The patient did not receive oral contrast. FINDINGS: Lung base: Minimal atelectasis versus scarring is seen at the lung bases posteriorly. There is an ess entially stable left lower lobe pulmonary nodule. Abdominal cavity: There is no evidence for abdominal mass, adenopathy or ascites. Liver: There is homogeneous attenuation of the liver parenchyma. There is no evidence for enhancing m ass lesion. There is again evidence for hepatomegaly. Spleen: There is homogeneous attenuation of the splenic parenchyma. There is no enhancing mass lesion . Pancreas: There is homogeneous attenuation of the pancreatic parenchyma. There is no evidence for mas s lesion or peripancreatic fluid collection. Gall Bladder: The gallbladder is well distended with no evidence for intraluminal calculi, wall thick ening or pericholecystic edema. Adrenal glands: The adrenal glands are normal in size and attenuation. There is no evidence for enhan cing mass lesion. Kidneys: There is homogeneous attenuation of the renal parenchyma bilaterally. There is no evidence f or renal calculus or hydronephrosis. There is no evidence for enhancing mass. 1 cm left renal cyst is present. Bowel: There is a small hiatal hernia. The bowel loops are normally placed within the abdomen and pel vis without evidence for dilatation or obstruction. There is no evidence for mass lesion. There is ex tensive diverticulosis without evidence for diverticulitis. There are no inflammatory changes present . There is no evidence for free air. The appendix is absent. Bladder: Hernandez catheter is present within the bladder. : There is no evidence for pelvic mass or adenopathy. There is no evidence for pelvic ascites. The patient is status post hysterectomy. Vasculature: There is no evidence for aneurysmal dilatation of the abdominal aorta. Extensive atheros clerotic calcification is present. Osseous structures: There is no acute osseous pathology. Degenerative changes are seen within the spi ne. Soft tissues of the groin: There is asymmetric subcutaneous edematous changes present involving the r ight groin when compared to the left. However, no focal fluid collection or enhancing abscess is seen . The findings are most characteristic of cellulitis. Skin thickening is also present. IMPRESSION: 1. No acute intra-abdominal or pelvic abnormality. 2. Cellulitis involving the right groin with no evidence for focal enhancing fluid collection or defi nite abscess. 3. Extensive diverticulosis without evidence for diverticulitis. 4. Additional nonacute findings are delineated above. ACT 112: Negative or not required by law. Electronically signed by: Alejandro Rainey M.D. 09/24/2021 9:11 AM
[2021-09-24] MEDS ORDERED: VANCOMYCIN HCL 1,750 MG in SODIUM CHLORIDE 0.9% 500 ML IV ONE (09:15)
[2021-09-24] MEDS ORDERED: VANCOMYCIN CONSULT ACTIVE PRN ×2 (09:15→13:19)
[2021-09-24] MEDS ORDERED: MAGNESIUM SULFATE / D5W 1 GM/100 ML BAG IV SCH (09:34)
[2021-09-24] MEDS ORDERED: MAGNESIUM SULFATE 1GM / D5W BAG IV ONE (09:37)
--- NOTE | 2021-09-24 10:34 | History & Physical Report ---
Date of Service September 24, 2021 Assessment & Plan (1) Cellulitis of right groin: (2) Abscess of right genital labia: (3) Weakness: (4) Hypoxia: (5) Hypomagnesemia: (6) CKD (chronic kidney disease), stage III: (7) Diabetes mellitus, type II: Plan: This is a 80-year-old elderly female who has significant past medical history of T2DM, CAD, chronic HFpEF, HTN, HLD, CKD stage III, history of thrombosis of left jugular vein, dementia, GERD who presents to ED secondary to right groin abscess x3 days. Cellulitis of right groin Abscess of right genital labia Admit to med telemetry Not meet criteria for SIRS/sepsis, procalcitonin mildly elevated 0.16 Continue IV vancomycin and Zosyn Superficial wound culture, blood cultures ordered and obtained Wound care consult placed Consult general surgery to determine if I&D warranted Warm compresses to area 4 times daily Hernandez catheter placed in ED Consider ID consult Weakness Patient will need PT/OT when more medically stable Secondary to underlying infection Hypoxia Chest x-ray negative, lungs clear Possibly secondary to positioning and poor inspiratory effort Encourage incentive spirometry, supplemental oxygen as needed Not wear oxygen at home Hypomagnesemia Replete with 1 g mag sulfate x2 Repeat magnesium at 1500 CKD stage III Mild hyponatremia -acute Baseline creatinine 1.1-1.4 Gotten 1.3 today, avoid nephrotoxic agent Sodium 134, likely due to poor intake Gentle IV fluid x1 L Follow BMP T2DM Last A1c 05/27 7.0 Hold metformin, Prandin Lantus/NovoLog per protocol A1c in a.m. CAD Chronic HFrEF HTN, HLD Daily weights Continue statin Dementia Alert and oriented x3 at baseline Monitor for signs of delirium DVT prophylaxis: Heparin Dispo: Med telemetry, likely able to transition to medical if remained stable for the next 24 hours PCP: Lacy Full code Patient was seen and examined in collaboration with, Dr. Pederson, please see addendum The chart was completed utilizing [employer] Speech voice recognition software. Grammatical errors, random word insertions, pronoun errors, and incomplete sentences are an occasional consequence of this system due to software limitations, ambient noise, and hardware issues. Any formal questions or concerns about the content, text, or information contained within the body of this dictation should be directly addressed to the provider for clarification. History of Present Illness Chief Complaint: Right groin abscess x3 days. Primary Care Provider: Case House MD This is a 80-year-old elderly female who has significant past medical history of T2DM, CAD, chronic HFpEF, HTN, HLD, CKD stage III, history of thrombosis of left jugular vein, dementia, GERD who presents to ED secondary to right groin abscess x3 days. is at bedside. Patient developed painful right groin abscess that started approximately 3 days ago. She was seen by [facility] on Friday. Abscess was actively draining, patient received IM Rocephin in clinic and was prescribed Bactrim DS. She completed 3 doses thus far. In clinic she did have fever. states this morning he walked her into the bathroom and sat her on the toilet. After getting her on the toilet she slid off onto the ground. She did not pass out and there was no known injury. feels that she is much weaker and having difficulty walking and therefore brought to ED. He states when he got her off the floor there was a significant amount of drainage from groin on floor. Currently she denies fever or sweats but complains of chills. Denies lightheadedness, dizziness, chest pain, shortness of breath, cough, nausea, vomiting, abdominal pain, dysuria, increased urgency or frequency with urination, melena or hematochezia. Her last bowel movement was 1 day ago. In ED patient remained hemodynamically stable. She did desaturate to 8889% was placed on 2 L of oxygen. Her vital signs were otherwise stable. Lab work revealed WBC 10.64, H&H 11.6 and 36.8, platelet 197, sodium 134, creatinine 1.34, glucose 278, mag 1.4, procalcitonin 0.16. Her urinalysis was negative for infection. Chest x-ray was negative for acute disease.CT abdomen pelvis concerning for cellulitis involving the right groin. She was started on IV vancomycin and Zosyn received 1 L of IV fluid in ED. Allergies Allergy/AdvReac Type Severity Reaction Status Date / Time oxycodone AdvReac Intermediate OVER Verified 09/24/21 08:13 SEDATED Home Medications Medication Instructions Recorded Confirmed Type omega-3 fatty acids 1,000 mg 2,000 mg PO QAM #0 10/15/13 09/24/21 History capsule omeprazole 20 mg tablet,delayed 20 mg PO QAM #0 10/15/13 09/24/21 History release coenzyme Q10 100 mg capsule 100 mg PO QAM #0 01/04/16 09/24/21 History atorvastatin 40 mg tablet 40 mg PO HS #0 04/09/17 09/24/21 History dicyclomine 10 mg capsule 10 mg PO TID #0 04/09/17 09/24/21 History peg 400-propylene glycol 0.4 %-0.3 1 drp OPHTHALMIC (EYE) QID PRN 05/12/19 09/24/21 History % eye drops (Systane Ultra) vitamin B complex 1 tab PO QAM 09/21/20 09/24/21 History nystatin 100,000 unit/gram topical 1 applic TOPICAL QID PRN 10/10/20 09/24/21 Hi story powder cyanocobalamin (vitamin B-12) 500 mcg PO QAM 05/24/21 09/24/21 History 1,000 mcg tablet (Vitamin B-12) lorazepam 0.5 mg tablet 0.5 mg PO TID PRN 05/24/21 09/24/21 History metformin 750 mg tablet,extended 750 mg PO BIDM 05/24/21 09/24/21 History release 24 hr pregabalin 150 mg capsule 150 mg PO BID 05/24/21 09/24/21 History repaglinide 0.5 mg tablet 0.5 mg PO TIDM 05/24/21 09/24/21 History valerian root 100 mg capsule 100 mg PO QAM 05/24/21 09/24/21 History fximhfp-yjrqeaizdipxv-dgkjtjjg 250 2 tab PO Q6H PRN 09/24/21 09/24/21 History mg-250 mg-65 mg tablet (Excedrin Extra Strength) hydrochlorothiazide 25 mg tablet 25 mg PO QAM 09/24/21 09/24/21 History magnesium 250 mg tablet 250 mg PO QAM 09/24/21 09/24/21 History sennosides 25 mg tablet (Ex-Lax 25 mg PO DAILY PRN 09/24/21 09/24/21 History Maximum Strength) sulfamethoxazole 800 1 tab PO BIDM 09/24/21 09/24/21 History mg-trimethoprim 160 mg tablet tramadol 50 mg tablet 50 mg PO Q6H PRN 09/24/21 09/24/21 History Past Med/Surg History Medical History Anxiety CAD (coronary artery disease) CKD (chronic kidney disease), stage III Dementia Diabetes mellitus, type II Diastolic dysfunction Dry eye syndrome Dyslipidemia GERD (gastroesophageal reflux disease) History of CA (myocardial infarction) Hypertension Kidney stones LVH (left ventricular hypertrophy) Osteoarthritis Peripheral neuropathy Surgical History History of appendectomy History of carpal tunnel release left History of cataract surgery RT/LEFT History of discectomy LUMBAR (TOTAL 2 LUMBAR DISCECTOMY) History of hysterectomy History of tooth extraction Hx of colonoscopy with polypectomy Hx of eye surgery LASER PROCEDURE S/P cystoscopy with ureteral stent placement 05/13/19 MAC Family History Brother Family history of diabetes mellitus Other Cancer Heart disease Kidney disease Social History Smoking Status: Never smoker Tobacco Type: Cigarettes Second Hand Exposure: No; Hx Alcohol Use: No Hx Substance Use: No Preferred Language: Setswana Communication Ability: Effective Ui Designer Required: No Beliefs That Will Affect Care: None marital status: Current Living Situation: Spouse current occupational status: retired Other Information That Helps Us Care for You: No Feels Safe at Home: Yes Safety Concerns: Feels Safe At This Time Assistive Devices: Denture - Upper, Denture - Lower and Walker Review of Systems Review of Systems: All systems reviewed & are unremarkable except as noted in HPI & below Physical Exam Physical Exam: Constitutional: WD/WN, elderly, female, vitals as above, NAD, sitting up in bed, pleasant, conversing easily Head: Normocephalic, Atraumatic Eyes: PERRL, conjunctivae normal, anicteric sclerae ENMT: external ear and nose normal, oropharynx normal, dry membranes Neck: trachea midline, no thyromegaly normal visual inspection Respiratory: normal respiratory effort, lungs clear to auscultation, no wheeze, rales, rhonchi. On O2 via NC 2 L, normal insp/exp effort, no accessory muscle use Cardiovascular: RRR, no murmur, no edema Vessels: no JVD or carotid bruit Chest: normal inspection of chest Abdomen: normal bowel sounds, soft, nontender, no hepatosplenomegaly Musculoskeletal: no cyanosis or clubbing, extremities motor strength 5/5 Skin: no rashes, warm and dry normal turgor Neurologic: PERRL, EOMI, accommodation nl, no face palsy, no dysarthria CN's II-XI intact bilaterally and moves all extremities Psychiatric: A+Ox3, euthymic affect Lymphatic: no cervical or axillary lymphadenopathy : Only catheter draining clear yellow urine, right inguinal/labial pustule noted with surrounding brown and purulent drainage, firm, tender to touch, surrounding inguinal erythema Results & Data Results & Data ([facility]) Vital Signs (Past 12 Hours) Vital Signs Temp Pulse Pulse Resp BP BP Pulse Ox 09/24/21 10:25 88 20 107/73 92 09/24/21 09:03 94 H 20 120/84 97 09/24/21 08:55 89 L 09/24/21 07:40 97 H 22 124/63 99 09/24/21 06:47 122 H 22 143/77 H 91 09/24/21 06:46 122 H 22 91 09/24/21 06:38 37.5 C 128 H 22 143/77 H 91 Diagnostic Findings Abdomen/Pelvis CT 09/24/21 06:40 CT abd pelvis IV con only CLINICAL HISTORY:. Right groin swelling. please get right groin/inguinal canal large absces COMPARISON STUDY: 05/09/2020 CT DOSE: 1209.54 mGy.cm TECHNIQUE: Standard CT of the Abdomen and Pelvis was performed with IV contrast. A dose lowering technique was utilized adhering to the principles of ALARA. Contrast Volume: Optiray 320, 95 ml. The patient did not receive oral contrast. FINDINGS: Lung base: Minimal atelectasis versus scarring is seen at the lung bases posteriorly. There is an essentially stable left lower lobe pulmonary nodule. Abdominal cavity: There is no evidence for abdominal mass, adenopathy or ascites. Liver: There is homogeneous attenuation of the liver parenchyma. There is no evidence for enhancing mass lesion. There is again evidence for hepatomegaly. Spleen: There is homogeneous attenuation of the splenic parenchyma. There is no enhancing mass lesion. Pancreas: There is homogeneous attenuation of the pancreatic parenchyma. There is no evidence for mass lesion or peripancreatic fluid collection. Gall Bladder: The gallbladder is well distended with no evidence for intraluminal calculi, wall thickening or pericholecystic edema. Adrenal glands: The adrenal glands are normal in size and attenuation. There is no evidence for enhancing mass lesion. Kidneys: There is homogeneous attenuation of the renal parenchyma bilaterally. There is no evidence for renal calculus or hydronephrosis. There is no evidence for enhancing mass. 1 cm left renal cyst is present. Bowel: There is a small hiatal hernia. The bowel loops are normally placed within the abdomen and pelvis without evidence for dilatation or obstruction. There is no evidence for mass lesion. There is extensive diverticulosis without evidence for diverticulitis. There are no inflammatory changes present. There is no evidence for free air. The appendix is absent. Bladder: Hernandez catheter is present within the bladder. : There is no evidence for pelvic mass or adenopathy. There is no evidence for pelvic ascites. The patient is status post hysterectomy. Vasculature: There is no evidence for aneurysmal dilatation of the abdominal aor ta. Extensive atherosclerotic calcification is present. Osseous structures: There is no acute osseous pathology. Degenerative changes are seen within the spine. Soft tissues of the groin: There is asymmetric subcutaneous edematous changes present involving the right groin when compared to the left. However, no focal fluid collection or enhancing abscess is seen. The findings are most character istic of cellulitis. Skin thickening is also present. IMPRESSION: 1. No acute intra-abdominal or pelvic abnormality. 2. Cellulitis involving the right groin with no evidence for focal enhancing flu id collection or definite abscess. 3. Extensive diverticulosis without evidence for diverticulitis. 4. Additional nonacute findings are delineated above. ACT 112: Negative or not required by law. Electronically signed by: Alejandro Rainey M.D. 09/24/2021 9:11 AM Chest X-Ray 09/24/21 06:40 XR chest 1V portable CLINICAL HISTORY: SEPSIS. COMPARISON STUDY: 06/17/2021 TECHNIQUE: 1 view of the chest FINDINGS: Single frontal view of the chest demonstrates the cardiomediastinal silhouette to be within normal limits. There is a decreased inspiratory effort with elevation of the hemidiaphragms, right greater than left and crowding of the bronchovascular markings at the lung bases and centrally. The lungs are clear of alveolar opacities. There is no evidence for pleural effusion. There is no evidence for vascular congestion. There is no acute osseous pathology. IMPRESSION: 1. . There is a decreased inspiratory effort with otherwise no acute chest disease. ACT 112: Negative or not required by law. Electronically signed by: Alejandro Rainey M.D. 09/24/2021 7:23 AM Medications Administered Medication List Vancomycin HCl 1,750 mg/ (Sodium Chloride) 535 mls @ 200 mls/hr IV NOW ONE Stop: 09/24/21 11:55 Last Admin: 09/24/21 09:51 Dose: 200 mls/hr Documented by: [id number] Discontinued Medications Sodium Chloride (Nss 1000ml) 1,000 mls @ 999 mls/hr IV .Q1H1M ONE Stop: 09/24/21 07:40 Last Infusion: 09/24/21 07:52 Dose: 0 mls/hr Documented by: [id number] Admin: 09/24/21 06:52 Dose: 999 mls/hr Documented by: [id number] Piperacillin Sod/Tazobactam Sod (Zosyn) 4.5 gm in 120 mls @ 240 mls/hr IV NOW ONE Stop: 09/24/21 07:11 Last Infusion: 09/24/21 08:10 Dose: 0 mls/hr Documented by: [id number] Admin: 09/24/21 07:30 Dose: 240 mls/hr Documented by: [id number] Ioversol (Optiray 320 100ml) 95 ml IV ONCE ONE Stop: 09/24/21 08:35 Last Admin: 09/24/21 08:35 Dose: 95 ml Documented by: [id number] Magnesium Sulfate/Dextrose (Magnesium Sulfate 1gm / D5w Bag) Confirm Administered Dose 2 gm IV .STK-MED ONE Stop: 09/24/21 09:38 Last Admin: 09/24/21 09:52 Dose: 2 gm Documented by: [id number] ECG Rate (beats per minute): 101 Rhythm: sinus tachycardia COVID-19 Results Results COVID-19 Adm Lab Results: RBC 4.15 M/uL (4.2-5.4) L 09/24/21 WBC 10.64 K/uL (4.8-10.8) 09/24/21 Hgb 11.6 g/dL (12.0-16.0) L 09/24/21 Hct 36.8 % (37-47) L 09/24/21 Plt Count 197 K/uL (130-400) 09/24/21 Neutrophils (%) (Auto) 79.3 % 09/24/21 Lymphocytes (%) (Auto) 10.3 % 09/24/21 Monocytes # (Auto) 0.93 K/uL (0.11-0.59) H 09/24/21 Eosinophils # (Auto) 0.13 K/uL (0-0.5) 09/24/21 Immature Granulocyte % (Auto) 0.3 % 09/24/21 Neutrophils # (Auto) 8.43 K/uL (1.4-6.5) H 09/24/21 Lymphocytes # (Auto) 1.10 K/uL (1.2-3.4) L 09/24/21 Monocytes # (Auto) 0.93 K/uL (0.11-0.59) H 09/24/21 Eosinophils # (Auto) 0.13 K/uL (0-0.5) 09/24/21 Basophils # (Auto) 0.02 K/uL (0-0.2) 09/24/21 Immature Granulocyte # (Auto) 0.03 K/uL (0.00-0.02) H 09/24/21 Na 134 mmol/L (136-145) L 09/24/21 K 4.0 mmol/L (3.5-5.1) 09/24/21 Cl 98 mmol/L (98-107) 09/24/21 CO2 27 mmol/L (21-32) 09/24/21 Anion Gap 9 (3-11) 09/24/21 BUN 22 mg/dl (6-23) 09/24/21 Creatinine 1.34 mg/dl (0.6-1.2) H 09/24/21 BUN/Creatinine Ratio 16.4 (10-20) 09/24/21 Glucose Level 278 mg/dl (70-99(Fasting)) H 09/24/21 Ca 9.8 mg/dl (8.5-10.1) 09/24/21 Total Bilirubin 0.6 mg/dl (0.2-1.0) 09/24/21 AST/SGOT 15 U/L (13-39) 09/24/21 ALT/SGPT 19 U/L (7-52) 09/24/21 Alkaline Phosphatase 70 U/L (34-104) 09/24/21 Total Protein 7.3 gm/dl (6.0-8.3) 09/24/21 Albumin 3.8 gm/dl (3.4-5.0) 09/24/21 Globulin 3.5 gm/dl (2.5-4.0) 09/24/21 Albumin/Globulin Ratio 1.1 (0.9-2) 09/24/21 Troponin I 0.03 ng/ml (0-0.04) 09/24/21 Procalcitonin 0.16 ng/ml (0-0.5) 09/24/21 PTT 26.8 Seconds (21.0-31.0) 09/24/21 INR 1.0 (0.9-1.1) 09/24/21 SARS-CoV-2, RNA, NAAT NEGATIVE (NEGATIVE) 09/24/21 Chest X-Ray 09/24/21 Code Status & VTE Plan Code Status FULL CODE DISCUSSED WITH PT AND AT BEDSIDE VTE Prophylaxis Plan VTE Prophylaxis will be ordered: Yes Supervising Physician Co-Signing Physician Notes I have seen and examined the patient at bedside. I have reviewed the chart. Reviewed vitals, labs, CT and surgery note. Agree with documentation by Ramona MEEK as noted above. In summary, this is a 80 year old female who presented to the ED with right groin abscess for 3 days and was seen at [facility] on Friday. She had received 1 dose of im ceftriaxone and on bactrim since then. Today, while in the bathroom she slid off on the ground, was much weaker and hence brought to the ED. Hemodynamically stable. No fever, CT with no abscess. AAO, pain controlled, heart sounds normal, chest clear, right groin cellulitis noted. Seen by surgery. Continue empiric antibiotics pending culture results. Rest per [facility] note. Updated at bedside.
--- NOTE | 2021-09-24 13:04 | Surgery Consultation ---
Date of Consultation September 24, 2021 Assessment & Plan (1) Cellulitis: pt is a 80 year-old female who presents to Er with right groin infection, IMP: right groin infection, cellulitis, normal WBC, Plan, I agree with hospitalist admit pt to hospital IV fluid, iv antibiotic, repeat labs in morning, will F/U, History of Present Illness Reason for Consultation: right groin cellulitis History of Present Illness History of Present Illness Chief Complaint: Right groin abscess x3 days. Primary Care Provider: [facility] MD This is a 80-year-old elderly female who has significant past medical history of T2DM, CAD, chronic HFpEF, HTN, HLD, CKD stage III, history of thrombosis of left jugular vein, dementia, GERD who presents to ED secondary to right groin abscess x3 days. is at bedside. Patient developed painful right groin abscess that started approximately 3 days ago. She was seen by [facility] clinic on Friday. Abscess was actively draining, patient received IM Rocephin in clinic and was prescribed Bactrim DS. She completed 3 doses thus far. In clinic she did have fever. states this morning he walked her into the bathroom and sat her on the toilet. After getting her on the toilet she slid off onto the ground. She did not pass out and there was no known injury. feels that she is much weaker and having difficulty walking and therefore brought to ED. He states when he got her off the floor there was a significant amount of drainage from groin on floor. Currently she denies fever or sweats but complains of chills. Denies lightheadedness, dizziness, chest pain, shortness of breath, cough, nausea, vomiting, abdominal pain, dysuria, increased urgency or frequency with urination, melena or hematochezia. Her last bowel movement was 1 day ago. In ED patient remained hemodynamically stable. She did desaturate to 8889% was placed on 2 L of oxygen. Her vital signs were otherwise stable. Lab work revealed WBC 10.64, H&H 11.6 and 36.8, platelet 197, sodium 134, creatinine 1.34, glucose 278, mag 1.4, procalcitonin 0.16. Her urinalysis was negative for infection. Chest x-ray was negative for acute disease.CT abdomen pelvis concerning for cellulitis involving the right groin. She was started on IV vancomycin and Zosyn received 1 L of IV fluid in ED. I ( Joe Lucas MD ) got a call for consult right groin cellulitis, I reviewed pt's H/P, labs and CT scan with pt, Allergies Allergy/AdvReac Type Severity Reaction Status Date / Time oxycodone AdvReac Intermediate OVER Verified 09/24/21 08:13 SEDATED Home Medications Medication Instructions Recorded Confirmed Type omega-3 fatty acids 1,000 mg 2,000 mg PO QAM #0 10/15/13 09/24/21 Hi story capsule omeprazole 20 mg tablet,delayed 20 mg PO QAM #0 10/15/13 09/24/21 History release coenzyme Q10 100 mg capsule 100 mg PO QAM #0 01/04/16 09/24/21 His tory atorvastatin 40 mg tablet 40 mg PO HS #0 04/09/17 09/24/21 Histo ry dicyclomine 10 mg capsule 10 mg PO TID #0 04/09/17 09/24/21 Histo ry peg 400-propylene glycol 0.4 %-0.3 1 drp OPHTHALMIC (EYE) QID PRN 05/12/19 09/24/21 History % eye drops (Systane Ultra) vitamin B complex 1 tab PO QAM 09/21/20 09/24/21 History nystatin 100,000 unit/gram topical 1 applic TOPICAL QID PRN 10/10/20 09/24/21 History powder cyanocobalamin (vitamin B-12) 500 mcg PO QAM 05/24/21 09/24/21 H istory 1,000 mcg tablet (Vitamin B-12) lorazepam 0.5 mg tablet 0.5 mg PO TID PRN 05/24/21 09/24/21 History metformin 750 mg tablet,extended 750 mg PO BIDM 05/24/21 2 History release 24 hr pregabalin 150 mg capsule 150 mg PO BID 05/24/21 09/24/21 Histo ry repaglinide 0.5 mg tablet 0.5 mg PO TIDM 05/24/21 09/24/21 Histo ry valerian root 100 mg capsule 100 mg PO QAM 05/24/21 09/24/21 Hi story mqlokvl-psfvowdsahpkh-hsfglixt 250 2 tab PO Q6H PRN 09/24/2109/24 History mg-250 mg-65 mg tablet (Excedrin Extra Strength) hydrochlorothiazide 25 mg tablet 25 mg PO QAM 09/24/21 2 History magnesium 250 mg tablet 250 mg PO QAM 09/24/21 09/24/21 History sennosides 25 mg tablet (Ex-Lax 25 mg PO DAILY PRN 09/24/21 09/24/21 History Maximum Strength) B sulfamethoxazole 800 1 tab PO BIDM 09/24/21 09/24/21 History mg-trimethoprim 160 mg tablet tramadol 50 mg tablet 50 mg PO Q6H PRN 09/24/21 09/24/21 History Past Med/Surg History Medical History Anxiety CAD (coronary artery disease) CKD (chronic kidney disease), stage III Dementia Diabetes mellitus, type II Diastolic dysfunction Dry eye syndrome Dyslipidemia GERD (gastroesophageal reflux disease) History of WA (myocardial infarction) Hypertension Kidney stones LVH (left ventricular hypertrophy) Osteoarthritis Peripheral neuropathy Surgical History History of appendectomy History of carpal tunnel release leftHistory of cataract surgery RT/LEFTHistory of discectomy LUMBAR (TOTAL 2 LUMBAR DISCECTOMY)History of hysterectomy History of tooth extraction Hx of colonoscopy with polypectomy Hx of eye surgery LASER PROCEDURES/P cystoscopy with ureteral stent placement 05/13/19 MAC Family History Brother Family history of diabetes mellitusOther Cancer Heart disease Kidney disease Social History Smoking Status: Never smoker Tobacco Type: Cigarettes Second Hand Exposure: No; Hx Alcohol Use: No (Unknown) Hx Substance Use: No (Unknown) Preferred Language: Cypriot Communication Ability: Effective Vegetable I Farmworker Required: No Beliefs That Will Affect Care: None marital status: Current Living Situation: Spouse current occupational status: retired Feels Safe at Home: Yes Assistive Devices: Walker Review of Systems Review of Systems: All systems reviewed & are unremarkable except as noted in HPI & below Allergies Allergy/AdvReac Type Severity Reaction Status Date / Time oxycodone AdvReac Intermediate OVER Verified 09/24/21 08:13 SEDATED Home Medications Medication Instructions Recorded Confirmed Type omega-3 fatty acids 1,000 mg 2,000 mg PO QAM #0 10/15/13 09/24/21 History capsule omeprazole 20 mg tablet,delayed 20 mg PO QAM #0 10/15/13 09/24/21 History release coenzyme Q10 100 mg capsule 100 mg PO QAM #0 01/04/16 09/24/21 History atorvastatin 40 mg tablet 40 mg PO HS #0 04/09/17 09/24/21 History dicyclomine 10 mg capsule 10 mg PO TID #0 04/09/17 09/24/21 History peg 400-propylene glycol 0.4 %-0.3 1 drp OPHTHALMIC (EYE) QID PRN 05/12/19 09/24/21 History % eye drops (Systane Ultra) vitamin B complex 1 tab PO QAM 09/21/20 09/24/21 History nystatin 100,000 unit/gram topical 1 applic TOPICAL QID PRN 10/10/20 09/24/21 History powder cyanocobalamin (vitamin B-12) 500 mcg PO QAM 05/24/21 09/24/21 History 1,000 mcg tablet (Vitamin B-12) lorazepam 0.5 mg tablet 0.5 mg PO TID PRN 05/24/21 09/24/21 History metformin 750 mg tablet,extended 750 mg PO BIDM 05/24/21 09/24/21 History release 24 hr pregabalin 150 mg capsule 150 mg PO BID 05/24/21 09/24/21 History repaglinide 0.5 mg tablet 0.5 mg PO TIDM 05/24/21 09/24/21 History valerian root 100 mg capsule 100 mg PO QAM 05/24/21 09/24/21 History wxehvba-ovxnkjouvuggc-okzitisp 250 2 tab PO Q6H PRN 09/24/21 09/24/21 History mg-250 mg-65 mg tablet (Excedrin Extra Strength) hydrochlorothiazide 25 mg tablet 25 mg PO QAM 09/24/21 09/24/21 History magnesium 250 mg tablet 250 mg PO QAM 09/24/21 09/24/21 History sennosides 25 mg tablet (Ex-Lax 25 mg PO DAILY PRN 09/24/21 09/24/21 History Maximum Strength) sulfamethoxazole 800 1 tab PO BIDM 09/24/21 09/24/21 History mg-trimethoprim 160 mg tablet tramadol 50 mg tablet 50 mg PO Q6H PRN 09/24/21 09/24/21 History Patient History Medical History Anxiety CAD (coronary artery disease) CKD (chronic kidney disease), stage III Dementia Diabetes mellitus, type II Diastolic dysfunction Dry eye syndrome Dyslipidemia GERD (gastroesophageal reflux disease) History of WA (myocardial infarction) Hypertension Kidney stones LVH (left ventricular hypertrophy) Osteoarthritis Peripheral neuropathy Surgical History History of appendectomy History of carpal tunnel release left History of cataract surgery RT/LEFT History of discectomy LUMBAR (TOTAL 2 LUMBAR DISCECTOMY) History of hysterectomy History of tooth extraction Hx of colonoscopy with polypectomy Hx of eye surgery LASER PROCEDURE S/P cystoscopy with ureteral stent placement 05/13/19 MAC Family History Brother Family history of diabetes mellitus Other Cancer Heart disease Kidney disease Social History Smoking Status: Never smoker Tobacco Type: Cigarettes Second Hand Exposure: No; Hx Alcohol Use: No (Unknown) Hx Substance Use: No (Unknown) Preferred Language: Cypriot Communication Ability: Effective Vegetable I Farmworker Required: No Beliefs That Will Affect Care: None marital status: Current Living Situation: Spouse current occupational status: retired Feels Safe at Home: Yes Assistive Devices: Walker Physical Exam Constitutional: WD/WN, vitals as above Eyes: PERRL, conjunctivae normal, anicteric sclerae Neck: trachea midline, no thyromegaly Respiratory: normal respiratory effort, lungs clear to auscultation Cardiovascular: RRR, no murmur, no edema Gastrointestinal (Abdomen): normal bowel sounds, soft, nontender, no hepatosplenomegaly some redness and drainage at right groin area, no significant large palpable abscess mass at right groin area, Neurologic: patellar DTR's 2+ bilat, sensation intact Psychiatric: A+Ox3, euthymic affect Results & Data ([facility]) Vital Signs (Past 12 Hours) Vital Signs Temp Pulse Pulse Resp BP BP Pulse Ox 09/24/21 12:00 85 18 123/64 97 09/24/21 10:25 88 20 107/73 92 09/24/21 09:03 94 H 20 120/84 97 09/24/21 08:55 89 L 09/24/21 07:40 97 H 22 124/63 99 09/24/21 06:47 122 H 22 143/77 H 91 09/24/21 06:46 122 H 22 91 09/24/21 06:38 37.5 C 128 H 22 143/77 H 91 Laboratory Results Abnormal lab results 09/24/21 09/24/21 09/24/21 Range/Units 06:33 06:33 07:16 RBC 4.15 L (4.2-5.4) M/uL Hgb 11.6 L (12.0-16.0) g/dL Hct 36.8 L (37-47) % MCHC 31.5 L (32-36) g/dL RDW Std Deviation 53.6 H (36.4-46.3) fL RDW Coeff of Pia 16.3 H (11.5-14.5) % Neut # (Auto) 8.43 H (1.4-6.5) K/uL Lymph # (Auto) 1.10 L (1.2-3.4) K/uL [place] # (Auto) 0.93 H (0.11-0.59) K/uL Immature Gran # (Auto) 0.03 H (0.00-0.02) K/uL Sodium 134 L (136-145) mmol/L Creatinine 1.34 H (0.6-1.2) mg/dl Glucose 278 H (70-99(Fasting)) mg/dl Magnesium 1.4 L (1.7-2.4) mg/dl Urine Protein 1+ H (Negative) Urine Glucose (UA) 2+ H (Negative) Urine Blood Trace H (Negative) Urine RBC (Auto) 5-10 H (0-4) /hpf U Epithel Cells (Auto) >30 H (0-5) /lpf Diagnostic Findings CT abd pelvis IV con only CLINICAL HISTORY:. Right groin swelling. please get right groin/inguinal canal large absces COMPARISON STUDY: 05/09/2020 CT DOSE: 1209.54 mGy.cm TECHNIQUE: Standard CT of the Abdomen and Pelvis was performed with IV contrast. A dose lowering technique was utilized adhering to the principles of ALARA. Contrast Volume: Optiray 320, 95 ml. The patient did not receive oral contrast. FINDINGS: Lung base: Minimal atelectasis versus scarring is seen at the lung bases posteriorly. There is an essentially stable left lower lobe pulmonary nodule. Abdominal cavity: There is no evidence for abdominal mass, adenopathy or ascites. Liver: There is homogeneous attenuation of the liver parenchyma. There is no evidence for enhancing mass lesion. There is again evidence for hepatomegaly. Spleen: There is homogeneous attenuation of the splenic parenchyma. There is no enhancing mass lesion. Pancreas: There is homogeneous attenuation of the pancreatic parenchyma. There is no evidence for mass lesion or peripancreatic fluid collection. Gall Bladder: The gallbladder is well distended with no evidence for intraluminal calculi, wall thickening or pericholecystic edema. Adrenal glands: The adrenal glands are normal in size and attenuation. There is no evidence for enhancing mass lesion. Kidneys: There is homogeneous attenuation of the renal parenchyma bilaterally. There is no evidence for renal calculus or hydronephrosis. There is no evidence for enhancing mass. 1 cm left renal cyst is present. Bowel: There is a small hiatal hernia. The bowel loops are normally placed within the abdomen and pelvis without evidence for dilatation or obstruction. There is no evidence for mass lesion. There is extensive diverticulosis without evidence for diverticulitis. There are no inflammatory changes present. There is no evidence for free air. The appendix is absent. Bladder: Hernandez catheter is present within the bladder. : There is no evidence for pelvic mass or adenopathy. There is no evidence for pelvic ascites. The patient is status post hysterectomy. Vasculature: There is no evidence for aneurysmal dilatation of the abdominal aorta. Extensive atherosclerotic calcification is present. Osseous structures: There is no acute osseous pathology. Degenerative changes are seen within the spine. Soft tissues of the groin: There is asymmetric subcutaneous edematous changes present involving the right groin when compared to the left. However, no focal fluid collection or enhancing abscess is seen. The findings are most characteristic of cellulitis. Skin thickening is also present. IMPRESSION: 1. No acute intra-abdominal or pelvic abnormality. 2. Cellulitis involving the right groin with no evidence for focal enhancing fluid collection or definite abscess. 3. Extensive diverticulosis without evidence for diverticulitis. 4. Additional nonacute findings are delineated above. (1) Cellulitis Site of cellulitis: unspecified site Qualified Code(s): L03.90 - Cellulitis, unspecified
[2021-09-24] MEDS ORDERED: CARBOHYDRATES FOR HYPOGLYCEMIA PO PRN (13:19)
[2021-09-24] MEDS ORDERED: SODIUM CHLORIDE 0.9% 1000ML 1,000 ML IV SCH (13:19)
[2021-09-24] MEDS ORDERED: GLUCAGON FOR INJ 1 MG VIAL SQ PRN (13:19)
[2021-09-24] MEDS ORDERED: GLUCOSE 10 TABS/TUBE PO PRN (13:19)
[2021-09-24] MEDS ORDERED: DEXTROSE 50% 50 ML SYRINGE IV PRN (13:19)
[2021-09-24] MEDS ORDERED: ALUMINUM/MAGNESIUM SUSP 30 ML UDC PO PRN (13:19)
[2021-09-24] MEDS ORDERED: MAGNESIUM HYDROXIDE SUSP 30 ML UDC PO PRN (13:19)
[2021-09-24] MEDS ORDERED: GLUCOSE 40% GEL 15 GM TUBE PO PRN (13:19)
[2021-09-24] MEDS: INSULIN ASPART PER UNIT SC SCH ×3 (13:49→20:50)
[2021-09-24] MEDS ORDERED: ARTIFICIAL TEARS OP PRN (13:52)
--- NOTE | 2021-09-24 14:30 | Pharmacy Report ---
Pharmacy Vanc AUC Short Note - Date of Service September 24, 2021 - Assessment & Plan Assessment 80 year old F admitted with R groin infection/cellulitis. Was seen at [facility] over the weekend, given IM rocephin and started on bactrim. Started on vancomycin and zosyn. Cultures pending. Plan Vancomycin * AUC/JACQUELINE is the preferred PK/PD target for vancomycin * AUC guided dosing is effective and associated with decreased risk of nephrotoxicity compared to traditional trough targets * Patient received loading dose of vancomycin 1750 mg x 1 (~20 mg/kg), will start vancomycin 1250 mg iv q 24 hrs * This dosing is estimated to produce at trough of ~18 and target AUC/JACQUELINE of 400-600 mg/L.hr and may be associated with a 15 % risk of nephrotoxicity * Will plan to order level in next 24-48 hrs if continued Zosyn * 4.5 gm iv q 8 hrs - appropriate for CrCl >20 ml/min Pharmacy will continue to follow and will adjust dose/frequency as necessary. Thank you.
[2021-09-24] MEDS: DICYCLOMINE HCL 10 MG CAP PO SCH ×2 (14:52→20:51)
[2021-09-24] MEDS: HEPARIN SOD 5,000 UNIT/0.5 ML VIAL SQ SCH ×2 (14:52→20:53)
[2021-09-24] MEDS: PIPERACILLIN/TAZOBACTAM 4.5 GM in DEXTROSE 5% 100 ML IV SCH ×2 (15:31→23:10)
[2021-09-24] MEDS: PREGABALIN 150 MG CAP PO SCH (20:50)
[2021-09-24] MEDS: LORazepam 0.5 MG TAB PO PRN (20:50)
[2021-09-24] MEDS: ATORVASTATIN 40 MG TAB PO SCH (20:51)
[2021-09-24] MEDS: ACETAMINOPHEN 325 MG TAB PO PRN (20:51)
[2021-09-24] MEDS: SENNA 8.6 MG TAB PO SCH (20:52)
[2021-09-24] MEDS: INSULIN GLARGINE SOLOSTAR 100 UNITS/ML 3 ML PEN SC SCH (20:52)
[2021-09-25] MEDS: VANCOMYCIN HCL 1,250 MG in SODIUM CHLORIDE 0.9% 250 ML IV SCH (03:00)
[2021-09-25] MEDS: HEPARIN SOD 5,000 UNIT/0.5 ML VIAL SQ SCH ×3 (06:20→22:14)
[2021-09-25] MEDS: PIPERACILLIN/TAZOBACTAM 4.5 GM in DEXTROSE 5% 100 ML IV SCH ×3 (06:20→22:14)
[2021-09-25 06:38] LABS: Basophils # (auto) 0.03 K/uL (0-0.2); Basophils % (auto) 0.4 %; Eosinophils # (auto) 0.55 K/uL (0-0.5); Eosinophils % (auto) 7.7 %; Hematocrit (blood only) 35.4 % (37-47); Hemoglobin 10.9 g/dL (12.0-16.0); Immature Granulocytes # (auto) 0.04 K/uL (0.00-0.02); Immature Granulocytes % (auto) 0.6 %; Lymphocytes # (auto) 1.19 K/uL (1.2-3.4); Lymphocytes % (auto) 16.6 %; Mean Corpuscular Hemoglobin 27.3 pg (25-34); Mean Corpuscular Hgb Conc 30.8 g/dL (32-36); Mean Corpuscular Volume 88.7 fL (80-100); Mean Platelet Volume 10.2 fL (7.4-10.4); Monocytes # (auto) 0.69 K/uL (0.11-0.59); Monocytes % (auto) 9.6 %; Neutrophils # (auto) 4.66 K/uL (1.4-6.5); Neutrophils % (auto) 65.1 %; Platelet Count 190 K/uL (130-400); RDW Coefficient of Variation 16.2 % (11.5-14.5); RDW Standard Deviation 53.1 fL (36.4-46.3); Red Blood Count 3.99 M/uL (4.2-5.4); White Blood Count 7.16 K/uL (4.8-10.8)
[2021-09-25 07:07] LABS: Albumin Level 3.3 gm/dl (3.4-5.0); BUN Creatinine Ratio 14.7 (10-20); Bilirubin,Total 0.6 mg/dl (0.2-1.0); Calcium 9.3 mg/dl (8.5-10.1); Creatinine Clr Calc Pharmacy 47.4 ml/min; Est GFR (African American) 60.6 ml/min; Est GFR (Non-African American) 52.3 ml/min; Globulin 3.3 gm/dl (2.5-4.0); Magnesium 1.8 mg/dl (1.7-2.4); Total Protein 6.6 gm/dl (6.0-8.3)
[2021-09-25 07:55] LABS: Estimated Average Glucose 177 mg/dl; Hemoglobin A1C 7.8 % (4.5-5.6)
[2021-09-25] MEDS: PANTOprazole 40 MG TAB PO SCH (08:11)
[2021-09-25] MEDS: CYANOCOBALAMIN (B-12) 500 MCG TABLET PO SCH (08:11)
[2021-09-25] MEDS: VITAMIN B COMPLEX TAB PO SCH (08:11)
[2021-09-25] MEDS: OMEGA-3 (PURIFIED FISH OIL) 1 GM CAP PO SCH (08:12)
[2021-09-25] MEDS: DICYCLOMINE HCL 10 MG CAP PO SCH ×3 (08:12→20:23)
[2021-09-25] MEDS: PREGABALIN 150 MG CAP PO SCH ×2 (08:14→20:24)
[2021-09-25] MEDS: POLYETHYLENE (MIRALAX) 17 GM PACK PO PRN (08:15)
[2021-09-25] MEDS: INSULIN ASPART PER UNIT SC SCH ×4 (08:55→20:23)
[2021-09-25] MEDS: INSULIN GLARGINE SOLOSTAR 100 UNITS/ML 3 ML PEN SC SCH ×2 (08:56→20:23)
[2021-09-25] MEDS ORDERED: NON-FORMULARY MEDICATION (Coenzyme Q10 100 mg Capsule) PO SCH (09:00)
--- NOTE | 2021-09-25 10:57 | Surgery Progress Note ---
Date of Service September 25, 2021 Assessment & Plan (1) Cellulitis: Plan: Right groin/labial cellulitis with abscess - more purulent drainage today - spreading cellulitis across mons pubis - afebrile, no leukocytosis Plan: Given purulent drainage needs incision and drainage Will schedule for OR tomorrow NPO after midnight continue IV antibiotics Dr. Lucas has seen and examined pt, agrees with above. Admission and Anticipated Discharge Date Admission Date: September 24, 2021 Subjective feeling better today pain in the groin area only when touched tolerating diet no n/v no fevers Physical Exam Constitutional: WD/WN, vitals as above no acute distress and not ill appearing Respiratory: normal respiratory effort; no respiratory distress and no labored breathing Gastrointestinal (Abdomen): Right labia and mons pubis area with induration, fluctuance. There is open wound of the right labia with purulent drainage. Tender to palpation. Skin: no rashes, warm and dry Psychiatric: Orientation: alert and oriented x 3 Results & Data ([facility]) Vital Signs (Past 12 Hours) Vital Signs Temp Pulse Pulse Resp BP Pulse Ox 09/25/21 07:35 108 H 09/25/21 06:59 36.7 C 103 H 20 148/83 H 90 09/25/21 04:04 91 H 09/25/21 03:01 37.0 C 92 H 18 124/77 95 09/24/21 23:20 36.8 C 99 H 18 137/69 93 Laboratory Results 09/25/21 09/25/21 09/25/21 Range/Units 07:22 06:19 06:19 WBC (4.8-10.8) K/uL RBC (4.2-5.4) M/uL Hgb (12.0-16.0) g/dL Hct (37-47) % MCV (80-100) fL MCH (25-34) pg MCHC (32-36) g/dL RDW Std Deviation (36.4-46.3) fL RDW Coeff of Pia (11.5-14.5) % Plt Count (130-400) K/uL MPV (7.4-10.4) fL Immature Gran % (Auto) % Neut % (Auto) % Lymph % (Auto) % [place] % (Auto) % Eos % (Auto) % Baso % (Auto) % Neut # (Auto) (1.4-6.5) K/uL Lymph # (Auto) (1.2-3.4) K/uL [place] # (Auto) (0.11-0.59) K/uL Eos # (Auto) (0-0.5) K/uL Baso # (Auto) (0-0.2) K/uL Immature Gran # (Auto) (0.00-0.02) K/uL Sodium 136 (136-145) mmol/L Potassium 4.0 (3.5-5.1) mmol/L Chloride 104 (98-107) mmol/L Carbon Dioxide 25 (21-32) mmol/L Anion Gap 7 (3-11) BUN 15 (6-23) mg/dl Creatinine 1.02 D (0.6-1.2) mg/dl Est Cr Clr Drug Dosing 47.4 ml/min Est GFR ( Amer) 60.6 ml/min Est GFR (Non-Af Amer) 52.3 ml/min BUN/Creatinine Ratio 14.7 (10-20) Glucose 201 H (70-99(Fasting)) mg/dl POC Glucose 241 H (70-99) mg/dl Estimat Average Glucose 177 mg/dl Hemoglobin A1c 7.8 H (4.5-5.6) % Calcium 9.3 (8.5-10.1) mg/dl Magnesium 1.8 (1.7-2.4) mg/dl Total Bilirubin 0.6 (0.2-1.0) mg/dl AST 19 (13-39) U/L ALT 19 (7-52) U/L Alkaline Phosphatase 55 (34-104) U/L Total Protein 6.6 (6.0-8.3) gm/dl Albumin 3.3 L (3.4-5.0) gm/dl Globulin 3.3 (2.5-4.0) gm/dl Albumin/Globulin Ratio 1.0 (0.9-2) 09/25/21 09/24/21 09/24/21 Range/Units 06:19 19:56 16:23 WBC 7.16 (4.8-10.8) K/uL RBC 3.99 L (4.2-5.4) M/uL Hgb 10.9 L (12.0-16.0) g/dL Hct 35.4 L (37-47) % MCV 88.7 (80-100) fL MCH 27.3 (25-34) pg MCHC 30.8 L (32-36) g/dL RDW Std Deviation 53.1 H (36.4-46.3) fL RDW Coeff of Pia 16.2 H (11.5-14.5) % Plt Count 190 (130-400) K/uL MPV 10.2 (7.4-10.4) fL Immature Gran % (Auto) 0.6 % Neut % (Auto) 65.1 % Lymph % (Auto) 16.6 % [place] % (Auto) 9.6 % Eos % (Auto) 7.7 % Baso % (Auto) 0.4 % Neut # (Auto) 4.66 (1.4-6.5) K/uL Lymph # (Auto) 1.19 L (1.2-3.4) K/uL [place] # (Auto) 0.69 H (0.11-0.59) K/uL Eos # (Auto) 0.55 H (0-0.5) K/uL Baso # (Auto) 0.03 (0-0.2) K/uL Immature Gran # (Auto) 0.04 H (0.00-0.02) K/uL Sodium (136-145) mmol/L Potassium (3.5-5.1) mmol/L Chloride (98-107) mmol/L Carbon Dioxide (21-32) mmol/L Anion Gap (3-11) BUN (6-23) mg/dl Creatinine (0.6-1.2) mg/dl Est Cr Clr Drug Dosing ml/min Est GFR ( Amer) ml/min Est GFR (Non-Af Amer) ml/min BUN/Creatinine Ratio (10-20) Glucose (70-99(Fasting)) mg/dl POC Glucose 182 H 219 H (70-99) mg/dl Estimat Average Glucose mg/dl Hemoglobin A1c (4.5-5.6) % Calcium (8.5-10.1) mg/dl Magnesium (1.7-2.4) mg/dl Total Bilirubin (0.2-1.0) mg/dl AST (13-39) U/L ALT (7-52) U/L Alkaline Phosphatase (34-104) U/L Total Protein (6.0-8.3) gm/dl Albumin (3.4-5.0) gm/dl Globulin (2.5-4.0) gm/dl Albumin/Globulin Ratio (0.9-2) 09/24/21 09/24/21 Range/Units 14:32 13:10 WBC (4.8-10.8) K/uL RBC (4.2-5.4) M/uL Hgb (12.0-16.0) g/dL Hct (37-47) % MCV (80-100) fL MCH (25-34) pg MCHC (32-36) g/dL RDW Std Deviation (36.4-46.3) fL RDW Coeff of Pia (11.5-14.5) % Plt Count (130-400) K/uL MPV (7.4-10.4) fL Immature Gran % (Auto) % Neut % (Auto) % Lymph % (Auto) % [place] % (Auto) % Eos % (Auto) % Baso % (Auto) % Neut # (Auto) (1.4-6.5) K/uL Lymph # (Auto) (1.2-3.4) K/uL [place] # (Auto) (0.11-0.59) K/uL Eos # (Auto) (0-0.5) K/uL Baso # (Auto) (0-0.2) K/uL Immature Gran # (Auto) (0.00-0.02) K/uL Sodium (136-145) mmol/L Potassium (3.5-5.1) mmol/L Chloride (98-107) mmol/L Carbon Dioxide (21-32) mmol/L Anion Gap (3-11) BUN (6-23) mg/dl Creatinine (0.6-1.2) mg/dl Est Cr Clr Drug Dosing ml/min Est GFR ( Amer) ml/min Est GFR (Non-Af Amer) ml/min BUN/Creatinine Ratio (10-20) Glucose (70-99(Fasting)) mg/dl POC Glucose 254 H (70-99) mg/dl Estimat Average Glucose mg/dl Hemoglobin A1c (4.5-5.6) % Calcium (8.5-10.1) mg/dl Magnesium 2.1 (1.7-2.4) mg/dl Total Bilirubin (0.2-1.0) mg/dl AST (13-39) U/L ALT (7-52) U/L Alkaline Phosphatase (34-104) U/L Total Protein (6.0-8.3) gm/dl Albumin (3.4-5.0) gm/dl Globulin (2.5-4.0) gm/dl Albumin/Globulin Ratio (0.9-2) Microbiology 09/24/21 07:26 Aerobic Blood Culture - Preliminary Blood No growth in Aerobic bottle after 24 hours. Anaerobic Blood Culture - Preliminary No growth in Anaerobic bottle after 24 hours. 09/24/21 10:20 Gram Stain - Final Leg,Right Wound Culture - Preliminary Pin-point growth present, reincubating. 09/24/21 06:33 Aerobic Blood Culture - Preliminary Blood No growth in Aerobic bottle after 24 hours. Anaerobic Blood Culture - Preliminary No growth in Anaerobic bottle after 24 hours. (1) Cellulitis Site of cellulitis: unspecified site Qualified Code(s): L03.90 - Cellulitis, unspecified
[2021-09-25] MEDS: ACETAMINOPHEN 325 MG TAB PO PRN ×2 (12:32→19:09)
--- NOTE | 2021-09-25 16:54 | Anesthesiology Consultation ---
Date of Service September 25, 2021 Assessment & Plan (1) Encounter for pre-operative examination: Chart Review Chart Review: Acceptable Risk for Surgery and Patient NOT seen in Pre Admission Testing Consults Requested none History Surgery Operation Date: 09/26/21 10:50 Proposed Procedures p Right Groin Abscess Incision and Drainage - Joe Lucas MD Height/Weight Height: 5 ft 3 in Weight: 89.1 kg Allergies Allergy/AdvReac Type Severity Reaction Status Date / Time oxycodone AdvReac Intermediate OVER Verified 09/24/21 08:13 SEDATED Medications Home Medications Medication Instructions Recorded Confirmed Last Taken omega-3 fatty acids 1,000 mg 2,000 mg PO QAM #0 10/15/13 09/24/21 09/23/21 capsule omeprazole 20 mg tablet,delayed 20 mg PO QAM #0 10/15/13 09/24/21 09/23/21 release coenzyme Q10 100 mg capsule 100 mg PO QAM #0 01/04/16 09/24/21 09/23/21 atorvastatin 40 mg tablet 40 mg PO HS #0 04/09/17 09/24/21 09/23/21 dicyclomine 10 mg capsule 10 mg PO TID #0 04/09/17 09/24/21 09/23/21 peg 400-propylene glycol 0.4 %-0.3 1 drp OPHTHALMIC (EYE) QID PRN 05/12/19 09/24/21 09/22/21 % eye drops (Systane Ultra) vitamin B complex 1 tab PO QAM 09/21/20 09/24/21 09/23/21 nystatin 100,000 unit/gram topical 1 applic TOPICAL QID PRN 10/10/20 09/24/21 09/21/21 powder cyanocobalamin (vitamin B-12) 500 mcg PO QAM 05/24/21 09/24/21 09/23/21 1,000 mcg tablet (Vitamin B-12) lorazepam 0.5 mg tablet 0.5 mg PO TID PRN 05/24/21 09/24/21 09/23/21 12:00 metformin 750 mg tablet,extended 750 mg PO BIDM 05/24/21 09/24/21 09/23/21 release 24 hr pregabalin 150 mg capsule 150 mg PO BID 05/24/21 09/24/21 09/23/21 repaglinide 0.5 mg tablet 0.5 mg PO TIDM 05/24/21 09/24/21 09/23/21 valerian root 100 mg capsule 100 mg PO QAM 05/24/21 09/24/21 09/23/21 tafizhu-bntjrqjylrzlk-ifcinwdd 250 2 tab PO Q6H PRN 09/24/21 09/24/21 09/23/21 mg-250 mg-65 mg tablet (Excedrin Extra Strength) hydrochlorothiazide 25 mg tablet 25 mg PO QAM 09/24/21 09/24/21 09/23/21 magnesium 250 mg tablet 250 mg PO QAM 09/24/21 09/24/21 09/23/21 sennosides 25 mg tablet (Ex-Lax 25 mg PO DAILY PRN 09/24/21 09/24/21 09/23/21 Maximum Strength) sulfamethoxazole 800 1 tab PO BIDM 09/24/21 09/24/21 09/23/21 mg-trimethoprim 160 mg tablet tramadol 50 mg tablet 50 mg PO Q6H PRN 09/24/21 09/24/21 09/23/21 08:00 Active Medications Generic Name Dose Route Start Last Admin Trade Name Freq PRN Reason Stop Dose Admin Acetaminophen 650 mg 09/24/21 13:19 09/25/21 12:32 Acetaminophen 325 Mg Tab PO 10/24/21 13:18 650 mg Q4H PRN Administration Pain or Fever Atorvastatin Calcium 40 mg 09/24/21 21:00 09/24/21 20:51 Atorvastatin 40 Mg Tab PO 10/24/21 20:59 40 mg HS URI Administration Cyanocobalamin 500 mcg 09/25/21 09:00 09/25/21 08:11 Cyanocobalamin (B-12) 500 Mcg Tablet PO 10/25/21 08:59 500 mcg QAM URI Administration Dicyclomine HCl 10 mg 09/24/21 14:00 09/25/21 14:01 Dicyclomine Hcl 10 Mg Cap PO 10/24/21 13:59 10 mg TID URI Administration Fish Oil 2 gm 09/25/21 09:00 09/25/21 08:12 [place]-3 (Purified Fish Oil) 1 Gm Cap PO 10/25/21 08:59 2 gm QAM URI Administration Heparin Sodium (Porcine) 5,000 units 09/24/21 14:00 09/25/21 14:01 Heparin Sod 5,000 Unit/0.5 Ml Vial SQ 10/24/21 13:59 5,000 units Q8 URI Administration Piperacillin Sod/Tazobactam 120 mls @ 30 mls/hr 09/24/21 15:00 09/25/21 14:54 Sod 4.5 gm/ Dextrose IV 10/01/21 14:59 30 mls/hr Q8H URI Administration Protocol Vancomycin HCl 1,250 mg/ 275 mls @ 200 mls/hr 09/25/21 04:00 09/25/21 04:37 Sodium Chloride IV 10/02/21 03:59 Infused Q24H URI Infusion Insulin Aspart 0 units 09/24/21 13:19 09/25/21 12:30 Insulin Aspart Per Unit SC 10/24/21 13:18 10 units ACHS URI Administration Insulin Glargine 0 units 09/24/21 21:00 09/25/21 08:56 Insulin Glargine Solostar 100 Units/Ml 3 Ml Pen SC 10/24/21 20:59 12 units BID URI Administration Protocol Lorazepam 0.5 mg 09/24/21 13:19 09/24/21 20:50 Lorazepam 0.5 Mg Tab PO 10/24/21 13:18 0.5 mg TID PRN Administration Anxiety Pantoprazole Sodium 40 mg 09/25/21 09:00 09/25/21 08:11 Pantoprazole 40 Mg Tab PO 10/25/21 08:59 40 mg QAM URI Administration Polyethylene Glycol 17 gm 09/24/21 13:19 09/25/21 08:15 Polyethylene (Miralax) 17 Gm Pack PO 10/24/21 13:18 17 gm DAILY PRN Administration Constipation Pregabalin 150 mg 09/24/21 21:00 09/25/21 08:14 Pregabalin 150 Mg Cap PO 10/24/21 20:59 150 mg BID URI Administration Sennosides 8.6 mg 09/24/21 21:00 09/24/21 20:52 Senna 8.6 Mg Tab PO 10/24/21 20:59 8.6 mg HS URI Administration Vitamin B Complex 1 tab 09/25/21 09:00 09/25/21 08:11 Vitamin B Complex Tab PO 10/25/21 08:59 1 tab QAM URI Administration Past Medical History Medical History Anxiety CAD (coronary artery disease) CKD (chronic kidney disease), stage III Dementia Diabetes mellitus, type II Diastolic dysfunction Dry eye syndrome Dyslipidemia GERD (gastroesophageal reflux disease) History of ME (myocardial infarction) Hypertension Kidney stones LVH (left ventricular hypertrophy) Osteoarthritis Peripheral neuropathy Past Family History Family History Brother Family history of diabetes mellitus Other Cancer Heart disease Kidney disease Past Surgical History Surgical History History of appendectomy History of carpal tunnel release left History of cataract surgery RT/LEFT History of discectomy LUMBAR (TOTAL 2 LUMBAR DISCECTOMY) History of hysterectomy History of tooth extraction Hx of colonoscopy with polypectomy Hx of eye surgery LASER PROCEDURE S/P cystoscopy with ureteral stent placement 05/13/19 MAC Social History Smoking Status: Never smoker tobacco type: cigarettes Hx Alcohol Use: No Hx Substance Use: No substance use type: does not use Physical Exam Vital Signs Last Vital Signs Temp 36.4 C L 09/25/21 15:09 Pulse 94 H 09/25/21 15:09 Resp 20 09/25/21 15:09 BP 139/75 09/25/21 15:09 Pulse Ox 96 09/25/21 15:09 Testing Laboratory Results 09/25/21 06:19 09/25/21 06:19 PT 10.9 Seconds (9.0-12.0) 09/24/21 06:33 INR 1.0 (0.9-1.1) 09/24/21 06:33 APTT 26.8 Seconds (21.0-31.0) 09/24/21 06:33 Hemoglobin A1c 7.8 % (4.5-5.6) H 09/25/21 06:19 Urine Color Yellow 09/24/21 07:16 Urine Appearance Clear (Clear) 09/24/21 07:16 Urine pH 5.5 (4.5-7.5) 09/24/21 07:16 Ur Specific [place] 1.022 (1.000-1.030) 09/24/21 07:16 Urine Protein 1+ (Negative) H 09/24/21 07:16 Urine Glucose (UA) 2+ (Negative) H 09/24/21 07:16 Urine Ketones Negative (Negative) 09/24/21 07:16 Urine Nitrite Negative (Negative) 09/24/21 07:16 Ur Leukocyte Esterase Negative (Negative) 09/24/21 07:16 Urine WBC (Auto) 1-5 /hpf (0-5) 09/24/21 07:16 Urine RBC (Auto) 5-10 /hpf (0-4) H 09/24/21 07:16 U Hyaline Cast (Auto) 1-5 /lpf (0-5) 09/24/21 07:16 U Epithel Cells (Auto) >30 /lpf (0-5) H 09/24/21 07:16 Urine Bacteria (Auto) Negative (Negative) 09/24/21 07:16 09/24/21 07:26 Aerobic Blood Culture - Preliminary Blood No growth in Aerobic bottle after 24 hours. Anaerobic Blood Culture - Preliminary No growth in Anaerobic bottle after 24 hours. 09/24/21 10:20 Gram Stain - Final Leg,Right Wound Culture - Preliminary Pin-point growth present, reincubating. 09/24/21 06:33 Aerobic Blood Culture - Preliminary Blood No growth in Aerobic bottle after 24 hours. Anaerobic Blood Culture - Preliminary No growth in Anaerobic bottle after 24 hours. 09/25/21 09/25/21 09/25/21 16:39 11:39 07:22 POC Glucose 119 H 275 H 241 H Electrocardiogram Date: 09/24/21 DICTATED BY:Palomo Partida MD Test Reason : Blood Pressure : / mmHG Vent. Rate : 101 BPM Atrial Rate : 101 BPM P-R Int : 146 ms QRS Dur : 076 ms QT Int : 344 ms P-R-T Axes : 066 -13 071 degrees QTc Int : 446 ms Sinus tachycardia Low voltage QRS Nonspecific T wave abnormality Abnormal ECG When compared with ECG of 09-JUN-2021 15:30, T wave inversion no longer evident in Anterolateral leads Confirmed by Palomo Partida ([id number]) on 09/24/2021 8:50:49 AM Chest X-Ray Date: 09/24/21 XR chest 1V portable CLINICAL HISTORY: SEPSIS. COMPARISON STUDY: 06/17/2021 TECHNIQUE: 1 view of the chest FINDINGS: Single frontal view of the chest demonstrates the cardiomediastinal silhouette to be within normal limits. There is a decreased inspiratory effort with elevation of the hemidiaphragms, right greater than left and crowding of the bronchovascular markings at the lung bases and centrally. The lungs are clear of alveolar opacities. There is no evidence for pleural effusion. There is no evidence for vascular congestion. There is no acute osseous pathology. IMPRESSION: 1. . There is a decreased inspiratory effort with otherwise no acute chest disease. Echocardiogram Date: 03/06/21 Technically limited study, compared to prior study no change. EF 50-55%. Mild LVH. No valvular disease.
--- NOTE | 2021-09-25 17:17 | Hospitalist Progress Note ---
Date of Service September 25, 2021 Assessment & Plan (1) Cellulitis of right groin: (2) Abscess of right genital labia: (3) Weakness: (4) Hypoxia: (5) Hypomagnesemia: (6) CKD (chronic kidney disease), stage III: (7) Diabetes mellitus, type II: Plan: This is a 80-year-old elderly female who has significant past medical history of T2DM, CAD, chronic HFpEF, HTN, HLD, CKD stage III, history of thrombosis of left jugular vein, dementia, GERD who presents to ED secondary to right groin abscess x3 days. Right groin/labial cellulitis with abscess - seen by surgery. Plan for OR tomorrow for I&D given increasing purulent drainage; to send OR clx results; NPO after midnight - Continue empiric IV antibiotics pending clx results - ID evaluation pending Weakness- PT/OT eval when stable Hypoxia- resolved, now on room air, continue incentive spirometere Hypomagnesemia- resolved with repletion CKD stage IIIa- Cr stable at baseline Mild hyponatremia -resolved T2DM- A1c 7.8. Hold metformin, Prandin. Lantus/NovoLog per protocol CAD Chronic HFrEF HTN, HLD Daily weights Continue statin Dementia Alert and oriented x3 at baseline Monitor for signs of delirium DVT prophylaxis: sc Heparin Dispo: OR tomorrow for I&D, continue iv ABx pending clx results Admission and Anticipated Discharge Date Admission Date: September 24, 2021 Subjective No new issues. Feels okay. Pain is controlled. Denies any fever, chills, shortness of breath, nausea, vomiting. States she is going to OR tomorrow for drainage, at bedside. Physical Exam Physical Exam: General: Sitting comfortably in bed, not in distress, on room air HEENT: EOMI, MIKE, MMM Chest: Clear breath sounds bilaterally, no wheezes or crackles CVS: Regular rate and rhythm, normal heart sounds, no murmur Abdomen: Soft, non tender, not distended, normal bowel sounds Neuro: Awake, alert, oriented, conversing well, non focal Extremities: No cyanosis, clubbing or edema Genitourinary: Right labia and mons pubis area with induration and fluctuance with open wound and purulent drainage. Results & Data Results & Data ([facility]) Vital Signs (Past 12 Hours) Vital Signs Temp Pulse Pulse Resp BP Pulse Ox 09/25/21 15:09 36.4 C L 94 H 20 139/75 96 09/25/21 15:00 100 H 09/25/21 11:55 36.7 C 103 H 20 138/81 97 09/25/21 07:35 108 H 09/25/21 06:59 36.7 C 103 H 20 148/83 H 90
[2021-09-25] MEDS: ATORVASTATIN 40 MG TAB PO SCH (20:23)
[2021-09-25] MEDS: SENNA 8.6 MG TAB PO SCH (20:24)
[2021-09-25] MEDS: LORazepam 0.5 MG TAB PO PRN (22:14)
[2021-09-25] MEDS: traMADol HCL 50 MG TABLET PO PRN (22:14)
[2021-09-26] MEDS: VANCOMYCIN HCL 1,250 MG in SODIUM CHLORIDE 0.9% 250 ML IV SCH (04:20)
[2021-09-26] MEDS: HEPARIN SOD 5,000 UNIT/0.5 ML VIAL SQ SCH ×3 (06:20→21:05)
[2021-09-26] MEDS: PIPERACILLIN/TAZOBACTAM 4.5 GM in DEXTROSE 5% 100 ML IV SCH ×3 (06:21→22:29)
[2021-09-26] MEDS: INSULIN ASPART PER UNIT SC SCH ×4 (06:21→20:28)
[2021-09-26 07:37] LABS: Creatinine Clr Calc Pharmacy 51.1 ml/min; Est GFR (African American) 66.9 ml/min; Est GFR (Non-African American) 57.7 ml/min
[2021-09-26] MEDS: VITAMIN B COMPLEX TAB PO SCH (07:52)
[2021-09-26] MEDS: CYANOCOBALAMIN (B-12) 500 MCG TABLET PO SCH (07:52)
[2021-09-26] MEDS: PANTOprazole 40 MG TAB PO SCH (07:52)
[2021-09-26] MEDS: OMEGA-3 (PURIFIED FISH OIL) 1 GM CAP PO SCH (07:52)
[2021-09-26] MEDS: DICYCLOMINE HCL 10 MG CAP PO SCH ×3 (07:53→20:55)
[2021-09-26] MEDS: PREGABALIN 150 MG CAP PO SCH ×2 (08:00→21:05)
[2021-09-26] MEDS: INSULIN GLARGINE SOLOSTAR 100 UNITS/ML 3 ML PEN SC SCH ×2 (09:04→20:55)
--- NOTE | 2021-09-26 11:18 | Hospitalist Progress Note ---
Date of Service September 26, 2021 Assessment & Plan (1) Cellulitis of right groin: (2) Abscess of right genital labia: (3) Weakness: (4) Hypoxia: (5) Hypomagnesemia: (6) CKD (chronic kidney disease), stage III: (7) Diabetes mellitus, type II: Plan: This is a 80-year-old elderly female who has significant past medical history of T2DM, CAD, chronic HFpEF, HTN, HLD, CKD stage III, history of thrombosis of left jugular vein, dementia, GERD who presents to ED secondary to right groin abscess x3 days. Right groin/labial cellulitis with abscess CT abd/pelvis showed asymmetric subcutaneous edematous changes present involving the right groin when compared to the left. Surgery on board Plan for OR today for I&D given increasing purulent drainage Continue empiric IV antibiotics with Vanco and Zosyn pending clx results Might consider ID evaluation depending cx Keep NPO for now for the procedure Weakness- PT/OT eval when stable Hypoxia- resolved, now on room air, continue incentive spirometere Hypomagnesemia- resolved with repletion CKD stage IIIa- Cr stable at baseline Mild hyponatremia -resolved T2DM- A1c 7.8. Hold metformin, Prandin. Lantus/NovoLog per protocol CAD Chronic HFrEF HTN, HLD Daily weights Continue statin Dementia Alert and oriented x3 at baseline Monitor for signs of delirium DVT prophylaxis: sc Heparin, will hold it for now Dispo: Continue monitor closely Admission and Anticipated Discharge Date Admission Date: September 24, 2021 Subjective Patient was seen and examined for follow-up of right groin abscess Lying in bed with no acute distress with at bedside Patient said that she is not having any pain Denies any chest pain, palpitation, dizziness, shortness of breath. Review of Systems Review of Systems: All systems reviewed & are unremarkable except as noted in Subjective Physical Exam Physical Exam: General: Lying comfortably in bed, not in distress, on room air HEENT: EOMI, MIKE, MMM Chest: Clear breath sounds bilaterally, no wheezes or crackles CVS: Regular rate and rhythm, normal heart sounds Abdomen: Soft, non tender, not distended, normal bowel sounds Neuro: Awake, alert, oriented, conversing well, non focal Extremities: No cyanosis, clubbing or edema Genitourinary: Right labia and mons pubis area with induration and fluctuance with open wound and purulent drainage. Results & Data Results & Data ([facility]) Vital Signs (Past 12 Hours) Vital Signs Temp Pulse Pulse Resp BP Pulse Ox 09/26/21 07:42 92 H 09/26/21 06:59 36.6 C 98 H 18 135/70 96 09/26/21 04:05 36.4 C L 98 H 18 151/96 H 93 09/25/21 23:34 106 H 09/25/21 23:25 36.8 C 104 H 18 166/83 H 96
[2021-09-26] MEDS ORDERED: LIDOCAINE 2% 20 MG/ML 5 ML SYR IV ONE (14:48)
[2021-09-26] MEDS ORDERED: PROPOFOL IV EMULSION 10 MG/ML 20 ML VIAL IV ONE ×3 (14:48→14:49)
[2021-09-26] MEDS ORDERED: ONDANSETRON INJ 2 MG/ML 2 ML VIAL ONE (14:48)
[2021-09-26] MEDS ORDERED: ceFAZolin 2000MG 2,000 MG/15 ML SYR IV ONE (14:57)
--- NOTE | 2021-09-26 14:57 | History & Physical Bridge Note ---
Date of Service September 26, 2021 History & Physical Bridge Note I have examined the patient, reviewed the History & Physical and in the interval since the performance of the History & Physical I have noted the following changes of clinical significance: no changes noted Supervising Physician Co-Signing Physician Notes I have seen and examined the patient at bedside. I have reviewed the chart. Reviewed vitals, labs, CT and surgery note. Agree with documentation by Ramona MEEK as noted above. In summary, this is a 80 year old female who presented to the ED with right groin abscess for 3 days and was seen at [facility] on Friday. She had received 1 dose of im ceftriaxone and on bactrim since then. Today, while in the bathroom she slid off on the ground, was much weaker and hence brought to the ED. Hemodynamically stable. No fever, CT with no abscess. AAO, pain controlled, heart sounds normal, chest clear, right groin cellulitis noted. Seen by surgery. Continue empiric antibiotics pending culture results. Rest per [facility] note. Updated at bedside.
[2021-09-26] MEDS ORDERED: LIDOCAINE 1% LOCAL 20 ML VIAL ONE (15:07)
[2021-09-26] MEDS ORDERED: BUPIVACAINE 0.5 % 5 MG/1 ML MPF 30ML VIAL ONE (15:07)
[2021-09-26] MEDS ORDERED: PHENYLEPHRINE 100MCG/ML 5ML SYR IV PRN (15:13)
[2021-09-26] MEDS ORDERED: LABETALOL HCL IV 5 MG/ML 20ML IV PRN (15:13)
[2021-09-26] MEDS ORDERED: fentaNYL citrate 100 MCG/2 ML VIAL IV PRN (15:13)
[2021-09-26] MEDS ORDERED: ePHEDrine sulfate 50 MG/ML AMP IV PRN (15:13)
[2021-09-26] MEDS ORDERED: ONDANSETRON INJ 2 MG/ML 2 ML VIAL IV PRN (15:13)
[2021-09-26] MEDS ORDERED: ATROPINE SULFATE 0.1 MG/ML 10ML SYR IV PRN (15:13)
[2021-09-26] MEDS ORDERED: BACITRACIN OINT 15 GM TUBE ONE (15:38)
[2021-09-26] MEDS ORDERED: METOPROLOL TARTRATE 1 MG/ML VIAL IV STA (16:27)
[2021-09-26] MEDS ORDERED: METOPROLOL TARTRATE 1 MG/ML VIAL IV ONE (16:28)
--- NOTE | 2021-09-26 16:28 | Anesthesiology Progress Note ---
Date of Service September 26, 2021 Anesthesia Post Procedure Vital Signs Vital Signs: Temp Pulse Pulse Pulse Resp BP Pulse Ox 09/26/21 16:20 96 H 20 160/82 H 93 09/26/21 16:10 99 H 18 161/99 H 94 09/26/21 16:00 97 H 18 155/87 H 100 09/26/21 15:50 36.2 C L 100 H 20 156/83 H 99 09/26/21 13:56 37.1 C 102 H 20 193/119 H 95 09/26/21 11:23 36.9 C 108 H 18 157/81 H 93 09/26/21 07:42 92 H 09/26/21 06:59 36.6 C 98 H 18 135/70 96 09/26/21 04:05 36.4 C L 98 H 18 151/96 H 93 09/25/21 23:34 106 H 09/25/21 23:25 36.8 C 104 H 18 166/83 H 96 09/25/21 19:40 36.5 C 110 H 18 147/77 H 97 Pain Intensity Head: Pain Intensity: 3 Transfer of Care Handoff Completed per policy Notes Mental Status: alert / awake / arousable Patient Amnestic to Procedure: Yes Nausea / Vomiting: adequately controlled Pain: adequately controlled Airway Patency, RR, SpO2: stable & adequate BP & HR: stable & adequate Hydration State: stable & adequate Anesthetic Complications: no major complications apparent and Pt Satisfied with anesthetic care
[2021-09-26] MEDS ORDERED: NYSTATIN POWDER 15GM BTL PRN (16:52)
[2021-09-26] MEDS ORDERED: NON-FORMULARY MEDICATION (Metformin 750 mg tablet extended release 24 hr) PO SCH (17:00)
[2021-09-26] MEDS ORDERED: REPAGLINIDE 1 MG TAB PO SCH (17:00)
[2021-09-26] MEDS ORDERED: SULFAMETHOXAZOLE/TRIMETHOPRIM DS 800/160MG TAB PO SCH (17:00)
[2021-09-26] MEDS: ONDANSETRON INJ 2 MG/ML 2 ML VIAL IV PRN (20:04)
[2021-09-26] MEDS: traMADol HCL 50 MG TABLET PO PRN (20:54)
[2021-09-26] MEDS: SENNA 8.6 MG TAB PO SCH (20:55)
[2021-09-26] MEDS: ATORVASTATIN 40 MG TAB PO SCH (20:55)
[2021-09-27] MEDS: ACETAMINOPHEN 325 MG TAB PO PRN ×2 (01:15→21:03)
--- NOTE | 2021-09-27 02:11 | Operative Report (OR) ---
DATE OF PROCEDURE: 09/26/2021. PREOPERATIVE DIAGNOSIS: Right groin abscess. POSTOPERATIVE DIAGNOSIS: Right groin abscess. OPERATION: Incision and drainage of right groin abscess. SURGEON: Joe Lucas MD ANESTHESIA: Conscious sedation plus local. ESTIMATED BLOOD LOSS: About 5 mL. FINDINGS: Right groin abscess. COMPLICATIONS: None. INDICATIONS FOR THE PROCEDURE: This is a 80-year-old female who was admitted to the hospital for rig ht groin abscess and I recommended to do the incision and drainage of right groin abscess. I did tan k to the patient about the benefits, risks, alternate procedures. I indicated the risks may include, but not limited to, such as bleeding, infection, may need more procedure, sepsis, injury to other or kevin, myocardial infarction, DVT, stroke, even , and the patient understands and she signed info rmed consent and I answered all questions. DETAILS OF PROCEDURE: After we identified the patient and verified the procedure, we brought in the patient to the OR, put the patient in the supine position on the OR table. The patient received SCDs on bilateral legs to prevent DVT. Also, the patient received 2 grams of Ancef IV for prophylactic a ntibiotic. The patient received conscious sedation by the anesthesiology. The right groin area was prepped and draped in routine sterile fashion. After timeout, I injected the local anesthesia by usi ng 1% lidocaine mixed with 0.5% Marcaine around the abscess area. Then, we made about a 2 cm incisio n and there was pus that came out, we did send a wound culture. Once we cleared all the pus, we pack ed the wound and localized the abscess, possible connect to the pelvic area, but we could not reach h igher, too high in the pelvic area. At this moment, hemostasis was obtained. Then, we used a half-i nch Kerlix to pack the wound and no active bleeding. Then we put the dressing on. The patient kanika ated the procedure well. All the instrument, needle and sponge counts were correct x2 at the end of the case. The patient was transferred to Recovery Room in stable condition. After the procedure, I did talk to the patient and patient's family member about the OR finding and the procedure we did, th ey understand. Job ID: [id number]
[2021-09-27] MEDS ORDERED: VANCOMYCIN TROUGH ONE (03:30)
[2021-09-27] MEDS: VANCOMYCIN HCL 1,250 MG in SODIUM CHLORIDE 0.9% 250 ML IV SCH (03:35)
[2021-09-27 03:45] LABS: Hematocrit (blood only) 36.2 % (37-47); Hemoglobin 11.4 g/dL (12.0-16.0); Mean Corpuscular Hemoglobin 27.9 pg (25-34); Mean Corpuscular Hgb Conc 31.5 g/dL (32-36); Mean Corpuscular Volume 88.5 fL (80-100); Platelet Count 227 K/uL (130-400); RDW Standard Deviation 51.8 fL (36.4-46.3); Red Blood Count 4.09 M/uL (4.2-5.4); White Blood Count 6.73 K/uL (4.8-10.8)
[2021-09-27 04:05] LABS: BUN Creatinine Ratio 15.6 (10-20); Est GFR (African American) 65.2 ml/min; Est GFR (Non-African American) 56.2 ml/min; Potassium 4.6 mmol/L (3.5-5.1)
[2021-09-27] MEDS: PIPERACILLIN/TAZOBACTAM 4.5 GM in DEXTROSE 5% 100 ML IV SCH ×3 (06:15→22:42)
[2021-09-27] MEDS: POLYETHYLENE (MIRALAX) 17 GM PACK PO PRN (08:10)
[2021-09-27] MEDS: DICYCLOMINE HCL 10 MG CAP PO SCH ×3 (08:11→21:05)
[2021-09-27] MEDS: PREGABALIN 150 MG CAP PO SCH ×2 (08:11→21:13)
[2021-09-27] MEDS: hydroCHLOROthiazide 25 MG TAB PO SCH (08:12)
[2021-09-27] MEDS: CYANOCOBALAMIN (B-12) 500 MCG TABLET PO SCH (08:12)
[2021-09-27] MEDS: PANTOprazole 40 MG TAB PO SCH (08:12)
[2021-09-27] MEDS: VITAMIN B COMPLEX TAB PO SCH (08:12)
[2021-09-27] MEDS: OMEGA-3 (PURIFIED FISH OIL) 1 GM CAP PO SCH (08:12)
[2021-09-27] MEDS: MAGNESIUM OXIDE 400 MG TAB PO SCH (08:13)
[2021-09-27] MEDS: INSULIN GLARGINE SOLOSTAR 100 UNITS/ML 3 ML PEN SC SCH ×2 (08:45→21:06)
[2021-09-27] MEDS: INSULIN ASPART PER UNIT SC SCH ×4 (08:48→21:13)
[2021-09-27] MEDS: ONDANSETRON INJ 2 MG/ML 2 ML VIAL IV PRN (08:48)
--- NOTE | 2021-09-27 08:51 | Pharmacy Report ---
Pharmacy [facility] Short Note - Date of Service September 27, 2021 - Assessment & Plan Assessment 80 year old F receiving IV vancomycin for treatment of right groin infection/cellulitis with abscess. Pertinent microbiologic data includes: Blood cultures and wound cultures show no growth to date. Day # 4 of antimicrobial therapy. Plan Vancomycin * Trough on 09/27 resulted to 11.3 mg/L, which results to AUC/JACQUELINE of ~ 431 mg/L.hr * Continue dose of 1250 mg IV every 24 hours * Next trough would be obtained prior to the 4th dose at steady state or sooner if the renal function status changes * Trough level is ordered for Zosyn * continue current zosyn regimen of 4.5g IV q8h (for CrCl > 20 mL/min and BMI >/= 35) due to indication of right groin cellulitis with abscess Pharmacy will continue to follow and will adjust dose/frequency as necessary. Thank you.
[2021-09-27] MEDS ORDERED: VALERIAN ROOT 100 MG PO SCH (09:00)
--- NOTE | 2021-09-27 12:51 | Surgery Progress Note ---
Date of Service September 27, 2021 Assessment & Plan (1) Cellulitis: Plan: POD # 1 s/p I&D of Right groin/labial abscess - afebrile, leukocytosis resolved - wound culture with no bacteria but initial culture showed gram + cocci - blood cultures NTD Plan: Wound care nurse consulted for further wound care management Kerlix packing placed into wound Continue IV abx and transition to oral abx continue medical management our services signing off, please call with questions/concerns Dr. Lucas has seen and examined pt, agrees with above. Admission and Anticipated Discharge Date Admission Date: September 24, 2021 Subjective patient sleeping upon entering room states pain is better today, not having any pain right now Physical Exam Constitutional: well developed and + obese; no acute distress and not ill appearing Respiratory: normal respiratory effort; no respiratory distress and no labored breathing Gastrointestinal (Abdomen): Right labial/groin area with clean and dry dressing intact. Surrounding erythema has improved. Edema is still present of the mons pubis area Tender to palpation Skin: no rashes, warm and dry Results & Data ([facility]) Vital Signs (Past 12 Hours) Vital Signs Temp Pulse Pulse Resp BP Pulse Ox 09/27/21 10:38 36.4 C L 92 H 20 126/78 94 09/27/21 07:49 81 09/27/21 07:04 36.6 C 87 20 176/94 H 91 09/27/21 03:07 36.4 C L 92 H 16 136/72 93 Laboratory Results 09/27/21 09/27/21 09/27/21 Range/Units 11:29 07:34 03:23 WBC 6.73 (4.8-10.8) K/uL RBC 4.09 L (4.2-5.4) M/uL Hgb 11.4 L (12.0-16.0) g/dL Hct 36.2 L (37-47) % MCV 88.5 (80-100) fL MCH 27.9 (25-34) pg MCHC 31.5 L (32-36) g/dL RDW Std Deviation 51.8 H (36.4-46.3) fL RDW Coeff of Pia 16.0 H (11.5-14.5) % Plt Count 227 (130-400) K/uL MPV 10.0 (7.4-10.4) fL Sodium (136-145) mmol/L Potassium (3.5-5.1) mmol/L Chloride (98-107) mmol/L Carbon Dioxide (21-32) mmol/L Anion Gap (3-11) BUN (6-23) mg/dl Creatinine (0.6-1.2) mg/dl Est Cr Clr Drug Dosing ml/min Est GFR ( Amer) ml/min Est GFR (Non-Af Amer) ml/min BUN/Creatinine Ratio (10-20) Glucose (70-99(Fasting)) mg/dl POC Glucose 205 H 149 H (70-99) mg/dl Calcium (8.5-10.1) mg/dl Vancomycin Trough (10-20) mcg/ml 09/27/21 09/27/21 09/26/21 Range/Units 03:23 03:23 20:08 WBC (4.8-10.8) K/uL RBC (4.2-5.4) M/uL Hgb (12.0-16.0) g/dL Hct (37-47) % MCV (80-100) fL MCH (25-34) pg MCHC (32-36) g/dL RDW Std Deviation (36.4-46.3) fL RDW Coeff of Pia (11.5-14.5) % Plt Count (130-400) K/uL MPV (7.4-10.4) fL Sodium 136 (136-145) mmol/L Potassium 4.6 (3.5-5.1) mmol/L Chloride 102 (98-107) mmol/L Carbon Dioxide 28 (21-32) mmol/L Anion Gap 6 (3-11) BUN 15 (6-23) mg/dl Creatinine 0.96 (0.6-1.2) mg/dl Est Cr Clr Drug Dosing 50.0 ml/min Est GFR ( Amer) 65.2 ml/min Est GFR (Non-Af Amer) 56.2 ml/min BUN/Creatinine Ratio 15.6 (10-20) Glucose 170 H (70-99(Fasting)) mg/dl POC Glucose 152 H (70-99) mg/dl Calcium 10.0 (8.5-10.1) mg/dl Vancomycin Trough 11.3 (10-20) mcg/ml 09/26/21 09/26/21 09/26/21 Range/Units 17:02 16:11 15:10 WBC (4.8-10.8) K/uL RBC (4.2-5.4) M/uL Hgb (12.0-16.0) g/dL Hct (37-47) % MCV (80-100) fL MCH (25-34) pg MCHC (32-36) g/dL RDW Std Deviation (36.4-46.3) fL RDW Coeff of Pia (11.5-14.5) % Plt Count (130-400) K/uL MPV (7.4-10.4) fL Sodium (136-145) mmol/L Potassium (3.5-5.1) mmol/L Chloride (98-107) mmol/L Carbon Dioxide (21-32) mmol/L Anion Gap (3-11) BUN (6-23) mg/dl Creatinine (0.6-1.2) mg/dl Est Cr Clr Drug Dosing ml/min Est GFR ( Amer) ml/min Est GFR (Non-Af Amer) ml/min BUN/Creatinine Ratio (10-20) Glucose (70-99(Fasting)) mg/dl POC Glucose 140 H 142 H 129 H (70-99) mg/dl Calcium (8.5-10.1) mg/dl Vancomycin Trough (10-20) mcg/ml Microbiology 09/26/21 15:37 Gram Stain - Final Groin 09/24/21 07:26 Aerobic Blood Culture - Preliminary Blood No growth in Aerobic bottle after 48 hours. Anaerobic Blood Culture - Preliminary No growth in Anaerobic bottle after 48 hours. (1) Cellulitis Site of cellulitis: unspecified site Qualified Code(s): L03.90 - Cellulitis, unspecified
[2021-09-27] MEDS ORDERED: XOPENEX/ATROVENT 1.25mg/0.5MG NEB COMBO NEB PRN (20:56)
[2021-09-27] MEDS ORDERED: LEVALBUTEROL 1.25MG/0.5ML NEB INH PRN (21:00)
[2021-09-27] MEDS: traMADol HCL 50 MG TABLET PO PRN (21:02)
[2021-09-27] MEDS: ATORVASTATIN 40 MG TAB PO SCH (21:05)
[2021-09-27] MEDS: SENNA 8.6 MG TAB PO SCH (21:05)
[2021-09-27] MEDS ORDERED: IPRATROPIUM BROMIDE NEB SOLN 0.02% 2.5 ML VIAL INH PRN (23:00)
--- NOTE | 2021-09-27 23:42 | Hospitalist Progress Note ---
Date of Service September 27, 2021 Assessment & Plan (1) Cellulitis of right groin: (2) Abscess of right genital labia: (3) Weakness: (4) Hypoxia: (5) Hypomagnesemia: (6) CKD (chronic kidney disease), stage III: (7) Diabetes mellitus, type II: Plan: This is a 80-year-old elderly female who has significant past medical history of T2DM, CAD, chronic HFpEF, HTN, HLD, CKD stage III, history of thrombosis of left jugular vein, dementia, GERD who presents to ED secondary to right groin abscess x3 days. Right groin/labial cellulitis with abscess CT abd/pelvis showed asymmetric subcutaneous edematous changes present involving the right groin when compared to the left. Surgery on board Day# 1 s/p I&D of Right groin/labial abscess Wound care nurse consulted for further wound care management Currently on empiric IV antibiotics with Vanco and Zosyn pending clx results Wound cx and blood cx no growth Might consider ID evaluation about abx regimen on discharge since cx no growth continue daily wound care Weakness- PT/OT eval when stable Hypoxia- resolved, now on room air, continue incentive spirometere Hypomagnesemia- resolved with repletion CKD stage IIIa- Cr stable at baseline Mild hyponatremia -resolved T2DM- A1c 7.8. Hold metformin, Prandin. Lantus/NovoLog per protocol CAD Chronic HFrEF HTN, HLD Daily weights Continue statin Dementia Alert and oriented x3 at baseline Monitor for signs of delirium DVT prophylaxis: sc Heparin, will hold it for now Dispo: Continue monitor closely Admission and Anticipated Discharge Date Admission Date: September 24, 2021 Subjective Patient was seen and examined for postop follow-up Lying in bed with no acute distress Patient states she is having tenderness in the right groin area around the incision site Denies any chest pain, palpitation, dizziness, shortness of breath. Review of Systems Review of Systems: All systems reviewed & are unremarkable except as noted in Subjective Physical Exam Physical Exam: General: Lying comfortably in bed, not in distress, on room air HEENT: EOMI, MIKE, MMM Chest: Clear breath sounds bilaterally, no wheezes or crackles CVS: Regular rate and rhythm, normal heart sounds Abdomen: Soft, non tender, not distended, normal bowel sounds Neuro: Awake, alert, oriented, conversing well, non focal Extremities: No cyanosis, clubbing or edema Genitourinary: Right labial/groin area with clean and dry dressing intact. Results & Data Results & Data ([facility]) Vital Signs (Past 12 Hours) Vital Signs Temp Pulse Pulse Resp BP Pulse Ox 09/27/21 23:15 37.1 C 102 H 18 138/66 92 09/27/21 22:07 102 H 18 93 09/27/21 19:03 36.7 C 101 H 18 130/70 94 09/27/21 15:24 36.7 C 92 H 20 126/80 96 09/27/21 15:20 89
[2021-09-28 01:55] LABS: Basophils # (auto) 0.03 K/uL (0-0.2); Basophils % (auto) 0.4 %; Eosinophils # (auto) 0.35 K/uL (0-0.5); Eosinophils % (auto) 4.7 %; Hematocrit (blood only) 37.1 % (37-47); Hemoglobin 11.6 g/dL (12.0-16.0); Immature Granulocytes # (auto) 0.06 K/uL (0.00-0.02); Immature Granulocytes % (auto) 0.8 %; Lymphocytes # (auto) 1.68 K/uL (1.2-3.4); Lymphocytes % (auto) 22.3 %; Mean Corpuscular Hemoglobin 27.6 pg (25-34); Mean Corpuscular Hgb Conc 31.3 g/dL (32-36); Mean Corpuscular Volume 88.3 fL (80-100); Mean Platelet Volume 9.7 fL (7.4-10.4); Monocytes # (auto) 0.94 K/uL (0.11-0.59); Monocytes % (auto) 12.5 %; Neutrophils # (auto) 4.46 K/uL (1.4-6.5); Neutrophils % (auto) 59.3 %; Platelet Count 209 K/uL (130-400); RDW Coefficient of Variation 16.2 % (11.5-14.5); RDW Standard Deviation 51.8 fL (36.4-46.3); White Blood Count 7.52 K/uL (4.8-10.8)
[2021-09-28 02:09] LABS: Partial Thromboplastin Time 27.4 Seconds (21.0-31.0)
[2021-09-28 02:17] LABS: Alanine Aminotransferase 28 U/L (7-52); Albumin Level 3.5 gm/dl (3.4-5.0); Alkaline Phosphatase 65 U/L (34-104); Anion Gap 9 (3-11); Aspartate Aminotransferase 27 U/L (13-39); BUN Creatinine Ratio 13.9 (10-20); Bilirubin,Total 0.4 mg/dl (0.2-1.0); Blood Urea Nitrogen 16 mg/dl (6-23); Carbon Dioxide 29 mmol/L (21-32); Chloride 98 mmol/L (98-107); Creatinine Clr Calc Pharmacy 41.7 ml/min; Est GFR (African American) 52.4 ml/min; Est GFR (Non-African American) 45.2 ml/min; Globulin 3.6 gm/dl (2.5-4.0); Glucose 171 mg/dl (70-99(Fasting)); Magnesium 1.8 mg/dl (1.7-2.4); Potassium 4.4 mmol/L (3.5-5.1); Sodium 136 mmol/L (136-145); Total Protein 7.1 gm/dl (6.0-8.3)
[2021-09-28 02:18] LABS: Troponin I < 0.03 ng/ml (0-0.04)
[2021-09-28] MEDS ORDERED: NITROGLYCERIN SL 0.4 MG/TAB TAB SL STA (02:26)
--- NOTE | 2021-09-28 03:07 | Communication Note ---
Date of Service: September 28, 2021 Made aware by RN of left-sided chest pain with some improvement after nitroglycerin administration EKG as per my interpretation Rate 105, sinus tachycardia, LAD, LAFB, inferior infarct, T wave flattening in limb leads, PVCs Troponin less than 0.03 AP Chest pain History CAD as per records Recheck troponin at 5 AM Will relay to AM provider.
[2021-09-28] MEDS: ACETAMINOPHEN 325 MG TAB PO PRN (03:25)
[2021-09-28] MEDS: traMADol HCL 50 MG TABLET PO PRN (03:25)
[2021-09-28] MEDS: VANCOMYCIN HCL 1,250 MG in SODIUM CHLORIDE 0.9% 250 ML IV SCH (04:25)
[2021-09-28] MEDS ORDERED: MAGNESIUM SULFATE / D5W 1 GM/100 ML BAG IV ONE (04:30)
[2021-09-28] MEDS: LORazepam 0.5 MG TAB PO PRN (05:54)
--- NOTE | 2021-09-28 07:23 | XRay Report ---
XR chest 1V portable CLINICAL HISTORY: Shortness of breath. COMPARISON STUDY: Chest CT June 09, 2021. Chest radiograph September 24, 2021. FINDINGS: No pneumothorax or pleural effusion is noted. Blunting of the left costophrenic angle is ch ronic. Cardiomegaly is unchanged. Subtle interstitial thickening is chronic. No consolidation is iden tified. Appearance of the chest is unchanged. Rightward deviation of the trachea due to a left lobe t hyroid goiter is unchanged. IMPRESSION: No acute cardiopulmonary findings. No change in appearance of the chest. ACT 112: Negative or not required by law. Electronically signed by: Luis Alberto Blankenship M.D. 09/28/2021 7:21 AM
[2021-09-28] MEDS: DICYCLOMINE HCL 10 MG CAP PO SCH ×3 (08:10→21:20)
[2021-09-28] MEDS: hydroCHLOROthiazide 25 MG TAB PO SCH (08:10)
[2021-09-28] MEDS: OMEGA-3 (PURIFIED FISH OIL) 1 GM CAP PO SCH (08:10)
[2021-09-28] MEDS: CYANOCOBALAMIN (B-12) 500 MCG TABLET PO SCH (08:11)
[2021-09-28] MEDS: VITAMIN B COMPLEX TAB PO SCH (08:11)
[2021-09-28] MEDS: PANTOprazole 40 MG TAB PO SCH (08:11)
[2021-09-28] MEDS: MAGNESIUM OXIDE 400 MG TAB PO SCH (08:11)
[2021-09-28] MEDS: PREGABALIN 150 MG CAP PO SCH ×2 (08:15→21:26)
[2021-09-28] MEDS: PIPERACILLIN/TAZOBACTAM 4.5 GM in DEXTROSE 5% 100 ML IV SCH ×2 (08:15→15:35)
[2021-09-28] MEDS: INSULIN GLARGINE SOLOSTAR 100 UNITS/ML 3 ML PEN SC SCH ×2 (08:17→21:27)
[2021-09-28] MEDS: INSULIN ASPART PER UNIT SC SCH ×4 (08:23→21:26)
--- NOTE | 2021-09-28 13:33 | Electrocardiogram Report ---
Test Reason : Blood Pressure : / mmHG Vent. Rate : 101 BPM Atrial Rate : 101 BPM P-R Int : 154 ms QRS Dur : 070 ms QT Int : 314 ms P-R-T Axes : 073 -29 135 degrees QTc Int : 407 ms Possible ectopic atrial rhythm with occasional Premature ventricular complexes Nonspecific ST abnormality Abnormal ECG When compared with ECG of 24-SEP-2021 07:34, Premature ventricular complexes are now Present Nonspecific T wave abnormality now evident in Inferior leads Confirmed by Palomo Partida ([id number]) on 09/28/2021 1:32:48 PM Referred By: REFERRED SELF Confirmed By:Raul Patrida
--- NOTE | 2021-09-28 17:07 | Hospitalist Progress Note ---
Date of Service September 28, 2021 Assessment & Plan (1) Cellulitis of right groin: (2) Abscess of right genital labia: (3) Weakness: (4) Hypoxia: (5) Hypomagnesemia: (6) CKD (chronic kidney disease), stage III: (7) Diabetes mellitus, type II: Plan: This is a 80-year-old elderly female who has significant past medical history of T2DM, CAD, chronic HFpEF, HTN, HLD, CKD stage III, history of thrombosis of left jugular vein, dementia, GERD who presents to ED secondary to right groin abscess x3 days. Right groin/labial cellulitis with abscess CT abd/pelvis showed asymmetric subcutaneous edematous changes present involving the right groin when compared to the left. Surgery on board Day# 1 s/p I&D of Right groin/labial abscess Wound care nurse consulted for further wound care management Currently on empiric IV antibiotics with Vanco and Zosyn pending clx results Wound cx and blood cx no growth ID on board recommended to d/c IV zosyn and add IV cefepime and PO flagyl. Continue IV vanco Plan to discharge on PO Doxycycline and Augmentin continue daily wound care Continue wound care daily will need to follow up with wound care clinic Weakness PT/OT jyotial Not interested to go to rehab said that he is able to provide care for her Fall precaution Hypoxia- resolved, now on room air, continue incentive spirometry Hypomagnesemia- resolved with repletion CKD stage IIIa- Cr stable at baseline Mild hyponatremia -resolved T2DM- A1c 7.8. Hold metformin, Prandin. Lantus/NovoLog per protocol CAD Chronic HFrEF HTN, HLD Daily weights Continue statin Dementia Alert and oriented x3 at baseline Monitor for signs of delirium DVT prophylaxis: sc Heparin on hold due to recent procedure Dispo: Will discharge home tomorrow Admission and Anticipated Discharge Date Admission Date: September 24, 2021 Subjective Patient was seen and examined for postop follow-up Lying in bed with no acute distress Denies any chest pain, palpitation, dizziness, shortness of breath. Review of Systems Review of Systems: All systems reviewed & are unremarkable except as noted in Subjective Physical Exam Physical Exam: General: Lying comfortably in bed, not in distress, on room air HEENT: EOMI, MIKE, MMM Chest: Clear breath sounds bilaterally, no wheezes or crackles CVS: Regular rate and rhythm, normal heart sounds Abdomen: Soft, non tender, not distended, normal bowel sounds Neuro: Awake, alert, oriented, conversing well, non focal Extremities: No cyanosis, clubbing or edema Genitourinary: Right labial/groin area with clean and dry dressing intact. Results & Data Results & Data ([facility]) Vital Signs (Past 12 Hours) Vital Signs Temp Pulse Pulse Pulse Resp BP BP 09/28/21 16:26 101 H 09/28/21 15:42 09/28/21 15:18 36.3 C L 97 H 18 119/73 09/28/21 11:22 36.6 C 79 16 121/74 09/28/21 07:46 36.6 C 82 16 149/72 H 09/28/21 07:31 86 Pulse Ox 09/28/21 16:26 09/28/21 15:42 91 09/28/21 15:18 91 09/28/21 11:22 95 09/28/21 07:46 98 09/28/21 07:31
[2021-09-28] MEDS: metroNIDAZOLE 500 MG TAB PO SCH (17:14)
[2021-09-28] MEDS: CEFEPIME 2,000 MG in SYRINGE 0 ML IV SCH (17:14)
[2021-09-28] MEDS: ATORVASTATIN 40 MG TAB PO SCH (21:20)
[2021-09-28] MEDS: SENNA 8.6 MG TAB PO SCH (21:20)
[2021-09-29] MEDS: traMADol HCL 50 MG TABLET PO PRN (00:49)
[2021-09-29] MEDS: LORazepam 0.5 MG TAB PO PRN (00:50)
[2021-09-29] MEDS: metroNIDAZOLE 500 MG TAB PO SCH ×3 (00:50→14:48)
[2021-09-29] MEDS: ACETAMINOPHEN 325 MG TAB PO PRN (00:50)
[2021-09-29] MEDS: CEFEPIME 2,000 MG in SYRINGE 0 ML IV SCH (04:53)
[2021-09-29] MEDS: VANCOMYCIN HCL 1,250 MG in SODIUM CHLORIDE 0.9% 250 ML IV SCH (04:53)
[2021-09-29] MEDS: DICYCLOMINE HCL 10 MG CAP PO SCH ×2 (07:58→14:47)
[2021-09-29] MEDS: VITAMIN B COMPLEX TAB PO SCH (07:58)
[2021-09-29] MEDS: MAGNESIUM OXIDE 400 MG TAB PO SCH (07:59)
[2021-09-29] MEDS: OMEGA-3 (PURIFIED FISH OIL) 1 GM CAP PO SCH (07:59)
[2021-09-29] MEDS: hydroCHLOROthiazide 25 MG TAB PO SCH (07:59)
[2021-09-29] MEDS: PANTOprazole 40 MG TAB PO SCH (07:59)
[2021-09-29] MEDS: CYANOCOBALAMIN (B-12) 500 MCG TABLET PO SCH (07:59)
[2021-09-29] MEDS: INSULIN GLARGINE SOLOSTAR 100 UNITS/ML 3 ML PEN SC SCH (08:01)
[2021-09-29] MEDS: INSULIN ASPART PER UNIT SC SCH ×2 (08:02→12:27)
[2021-09-29] MEDS: PREGABALIN 150 MG CAP PO SCH (08:10)
[2021-09-29 08:39] LABS: Est GFR (African American) 65.2 ml/min; Est GFR (Non-African American) 56.2 ml/min
[2021-09-29] MEDS ORDERED: AMOXICILLIN/CLAVULANATE 875 MG TAB PO SCH (16:30)
[2021-09-29] MEDS ORDERED: DOXYCYCLINE HYCLATE 100 MG CAP PO SCH (16:30)
--- NOTE | 2021-09-29 16:36 | Discharge Summary ---
Date of Service September 29, 2021 Admission HPI Per Admitting Provider This is a 80-year-old elderly female who has significant past medical history of T2DM, CAD, chronic HFpEF, HTN, HLD, CKD stage III, history of thrombosis of left jugular vein, dementia, GERD who presents to ED secondary to right groin abscess x3 days. is at bedside. Patient developed painful right groin abscess that started approximately 3 days ago. She was seen by [facility] clinic on Friday. Abscess was actively draining, patient received IM Rocephin in clinic and was prescribed Bactrim DS. She completed 3 doses thus far. In clinic she did have fever. states this morning he walked her into the bathroom and sat her on the toilet. After getting her on the toilet she slid off onto the ground. She did not pass out and there was no known injury. feels that she is much weaker and having difficulty walking and therefore brought to ED. He states when he got her off the floor there was a significant amount of drainage from groin on floor. Currently she denies fever or sweats but complains of chills. Denies lightheadedness, dizziness, chest pain, shortness of breath, cough, nausea, vomiting, abdominal pain, dysuria, increased urgency or frequency with urination, melena or hematochezia. Her last bowel movement was 1 day ago. In ED patient remained hemodynamically stable. She did desaturate to 8889% was placed on 2 L of oxygen. Her vital signs were otherwise stable. Lab work revealed WBC 10.64, H&H 11.6 and 36.8, platelet 197, sodium 134, creatinine 1.34, glucose 278, mag 1.4, procalcitonin 0.16. Her urinalysis was negative for infection. Chest x-ray was negative for acute disease.CT abdomen pelvis concerning for cellulitis involving the right groin. She was started on IV vancomycin and Zosyn received 1 L of IV fluid in ED. Admission Exam Per Admitting Provider Constitutional: WD/WN, elderly, female, vitals as above, NAD, sitting up in bed, pleasant, conversing easily Head: Normocephalic, Atraumatic Eyes: PERRL, conjunctivae normal, anicteric sclerae ENMT: external ear and nose normal, oropharynx normal, dry membranes Neck: trachea midline, no thyromegaly normal visual inspection Respiratory: normal respiratory effort, lungs clear to auscultation, no wheeze, rales, rhonchi. On O2 via NC 2 L, normal insp/exp effort, no accessory muscle use Cardiovascular: RRR, no murmur, no edema Vessels: no JVD or carotid bruit Chest: normal inspection of chest Abdomen: normal bowel sounds, soft, nontender, no hepatosplenomegaly Musculoskeletal: no cyanosis or clubbing, extremities motor strength 5/5 Skin: no rashes, warm and dry normal turgor Neurologic: PERRL, EOMI, accommodation nl, no face palsy, no dysarthria CN's II-XI intact bilaterally and moves all extremities Psychiatric: A+Ox3, euthymic affect Lymphatic: no cervical or axillary lymphadenopathy : Only catheter draining clear yellow urine, right inguinal/labial pustule noted with surrounding brown and purulent drainage, firm, tender to touch, surrounding inguinal erythema Principal Diagnosis (1) Cellulitis of right groin: (2) Abscess of right genital labia: (3) Weakness: (4) Hypoxia: (5) Hypomagnesemia: (6) CKD (chronic kidney disease), stage III: (7) Diabetes mellitus, type II: Discharge Exam General: Lying comfortably in bed, not in distress, on room air HEENT: EOMI, MIKE, MMM Chest: Clear breath sounds bilaterally, no wheezes or crackles CVS: Regular rate and rhythm, normal heart sounds Abdomen: Soft, non tender, not distended, normal bowel sounds Neuro: Awake, alert, oriented, conversing well, non focal Extremities: No cyanosis, clubbing or edema Genitourinary: Right labial/groin area with clean and dry dressing intact. Discharge Data Allergies Allergy/AdvReac Type Severity Reaction Status Date / Time oxycodone AdvReac Intermediate OVER Verified 09/24/21 08:13 SEDATED Consultations 09/24/21 09:24 ED Decision to Admit Stat 09/24/21 10:28 Consult General Surgery Routine 09/27/21 23:59 Consult Infectious Diseases Routine Procedures Performed Operation Date: 09/26/21 10:50 Actual Procedures p Right Groin Abscess Incision and Drainage(Right) - Joe Lucas MD Ordered Studies 09/24/21 06:40 CT abd pelvis IV con only Stat XR chest 1V portable CLINICAL HISTORY: Shortness of breath. COMPARISON STUDY: Chest CT June 09, 2021. Chest radiograph September 24, 2021. FINDINGS: No pneumothorax or pleural effusion is noted. Blunting of the left costophrenic angle is chronic. Cardiomegaly is unchanged. Subtle interstitial thickening is chronic. No consolidation is identified. Appearance of the chest is unchanged. Rightward deviation of the trachea due to a left lobe thyroid goiter is unchanged. IMPRESSION: No acute cardiopulmonary findings. No change in appearance of the chest. ACT 112: Negative or not required by law. Electronically signed by: Luis Alberto Blankenship M.D. 09/28/2021 7:21 AM Dictated:09/28/21719 Transcribed: 09/28/21719 XR chest 1V portable CLINICAL HISTORY: SEPSIS. COMPARISON STUDY: 06/17/2021 TECHNIQUE: 1 view of the chest FINDINGS: Single frontal view of the chest demonstrates the cardiomediastinal silhouette to be within normal limits. There is a decreased inspiratory effort with elevation of the hemidiaphragms, right greater than left and crowding of the bronchovascular markings at the lung bases and centrally. The lungs are clear of alveolar opacities. There is no evidence for pleural effusion. There is no evidence for vascular congestion. There is no acute osseous pathology. IMPRESSION: 1. . There is a decreased inspiratory effort with otherwise no acute chest disease. ACT 112: Negative or not required by law. Electronically signed by: Alejandro Rainey M.D. 09/24/2021 7:23 AM Dictated:09/24/21721 Transcribed: 09/24/21721 CT abd pelvis IV con only CLINICAL HISTORY:. Right groin swelling. please get right groin/inguinal canal large absces COMPARISON STUDY: 05/09/2020 CT DOSE: 1209.54 mGy.cm TECHNIQUE: Standard CT of the Abdomen and Pelvis was performed with IV contrast. A dose lowering technique was utilized adhering to the principles of ALARA. Contrast Volume: Optiray 320, 95 ml. The patient did not receive oral contrast. FINDINGS: Lung base: Minimal atelectasis versus scarring is seen at the lung bases posteriorly. There is an essentially stable left lower lobe pulmonary nodule. Abdominal cavity: There is no evidence for abdominal mass, adenopathy or ascites. Liver: There is homogeneous attenuation of the liver parenchyma. There is no evidence for enhancing mass lesion. There is again evidence for hepatomegaly. Spleen: There is homogeneous attenuation of the splenic parenchyma. There is no enhancing mass lesion. Pancreas: There is homogeneous attenuation of the pancreatic parenchyma. There is no evidence for mass lesion or peripancreatic fluid collection. Gall Bladder: The gallbladder is well distended with no evidence for intraluminal calculi, wall thickening or pericholecystic edema. Adrenal glands: The adrenal glands are normal in size and attenuation. There is no evidence for enhancing mass lesion. Kidneys: There is homogeneous attenuation of the renal parenchyma bilaterally. There is no evidence for renal calculus or hydronephrosis. There is no evidence for enhancing mass. 1 cm left renal cyst is present. Bowel: There is a small hiatal hernia. The bowel loops are normally placed within the abdomen and pelvis without evidence for dilatation or obstruction. There is no evidence for mass lesion. There is extensive diverticulosis without evidence for diverticulitis. There are no inflammatory changes present. There is no evidence for free air. The appendix is absent. Bladder: Hernandez catheter is present within the bladder. : There is no evidence for pelvic mass or adenopathy. There is no evidence for pelvic ascites. The patient is status post hysterectomy. Vasculature: There is no evidence for aneurysmal dilatation of the abdominal aorta. Extensive atherosclerotic calcification is present. Osseous structures: There is no acute osseous pathology. Degenerative changes are seen within the spine. Soft tissues of the groin: There is asymmetric subcutaneous edematous changes present involving the right groin when compared to the left. However, no focal fluid collection or enhancing abscess is seen. The findings are most characteristic of cellulitis. Skin thickening is also present. IMPRESSION: 1. No acute intra-abdominal or pelvic abnormality. 2. Cellulitis involving the right groin with no evidence for focal enhancing fluid collection or definite abscess. 3. Extensive diverticulosis without evidence for diverticulitis. 4. Additional nonacute findings are delineated above. ACT 112: Negative or not required by law. Electronically signed by: Alejandro Rainey M.D. 09/24/2021 9:11 AM Dictated:09/24/21858 Transcribed: 09/24/21858 Hospital Course (1) Cellulitis of right groin: (2) Abscess of right genital labia: (3) Weakness: (4) Hypoxia: (5) Hypomagnesemia: (6) CKD (chronic kidney disease), stage III: (7) Diabetes mellitus, type II: This is a 80-year-old elderly female who has significant past medical history of T2DM, CAD, chronic HFpEF, HTN, HLD, CKD stage III, history of thrombosis of left jugular vein, dementia, GERD who presents to ED secondary to right groin abscess x3 days. Right groin/labial cellulitis with abscess CT abd/pelvis showed asymmetric subcutaneous edematous changes present involving the right groin when compared to the left. Surgery on board Day# 1 s/p I&D of Right groin/labial abscess Wound care nurse consulted for further wound care management Currently on empiric IV antibiotics with Vanco and Zosyn pending clx results Wound cx and blood cx no growth ID on board recommended to d/c IV zosyn and add IV cefepime and PO flagyl. Continue IV vanco Plan to discharge on PO Doxycycline and Augmentin continue daily wound care Continue wound care daily will need to follow up with wound care clinic Weakness PT/OT keri Not interested to go to rehab said that he is able to provide care for her Fall precaution Hypoxia- resolved, now on room air, continue incentive spirometry Hypomagnesemia- resolved with repletion CKD stage IIIa- Cr stable at baseline Mild hyponatremia -resolved T2DM- A1c 7.8. Hold metformin, Prandin. Lantus/NovoLog per protocol CAD Chronic HFrEF HTN, HLD Daily weights Continue statin Dementia Alert and oriented x3 at baseline Monitor for signs of delirium DVT prophylaxis: sc Heparin on hold due to recent procedure Dispo: Will discharge home tomorrow Total Time Total Time Spent Total Time Spent (In Minutes): 35 minutes Discharge Plan Discharge Items Patient Disposition: Home - Home Health Services Reason For Visit: R GROIN CELLULITIS Discharge Diagnosis: (1) Cellulitis of right groin: (2) Abscess of right genital labia: (3) Weakness: (4) Hypoxia: (5) Hypomagnesemia: (6) CKD (chronic kidney disease), stage III: (7) Diabetes mellitus, type II: Activity: Resume your previous activity Non-emergency contact: Primary Care Provider Call non-emergency contact if: you have any medication questions and your symptoms worsen Follow-up/Referrals: Case House MD [Primary Care Provider] - Diet: Carb Consistent or DM2 Addtl Attending Provider Instructions: Follow up with your primary care provider Dr. House within 1 week [facility] Continue physical and occupational therapy Follow up with wound care clinic Continue daily wound care Complete the course of the antibiotic Fall precaution Pending Studies at Discharge: No Stand-Alone Forms: My [facility] [employer], Smoking Cessation Medications and DC Order Prescriptions: New amoxicillin-pot clavulanate 875-125 mg tablet 1 tab PO BID 8 Days Qty: 16 RF: 0 doxycycline hyclate 100 mg tablet 100 mg PO BID 8 Days Qty: 16 RF: 0 Continued omega-3 fatty acids 1,000 mg Capsule 2,000 mg PO QAM Qty: 0 RF: 0 omeprazole 20 mg Tablet,Delayed Release (Dr/Ec) 20 mg PO QAM Qty: 0 RF: 0 coenzyme Q10 100 mg Capsule 100 mg PO QAM Qty: 0 RF: 0 atorvastatin 40 mg Tablet 40 mg PO HS Qty: 0 RF: 0 dicyclomine 10 mg Capsule 10 mg PO TID Qty: 0 RF: 0 Systane Ultra 0.4-0.3 % Drops 1 drp OPHTHALMIC (EYE) QID PRN (Reason: Dry Eye(S)) RF: 0 nystatin 100,000 unit/gram Powder 1 applic TOPICAL QID PRN (Reason: skin rash) RF: 0 cyanocobalamin (vitamin B-12) [Vitamin B-12] 1,000 mcg Tablet 500 mcg PO QAM RF: 0 lorazepam 0.5 mg tablet 0.5 mg PO TID PRN (Reason: Anxiety) RF: 0 pregabalin 150 mg capsule 150 mg PO BID RF: 0 repaglinide 0.5 mg tablet 0.5 mg PO TIDM RF: 0 valerian root 100 mg Capsule 100 mg PO QAM RF: 0 metformin 750 mg tablet extended release 24 hr 750 mg PO BIDM RF: 0 tramadol 50 mg tablet 50 mg PO Q6H PRN (Reason: Pain) RF: 0 magnesium 250 mg Tablet 250 mg PO QAM RF: 0 hydrochlorothiazide 25 mg tablet 25 mg PO QAM RF: 0 Ex-Lax Maximum Strength 25 mg Tablet 25 mg PO DAILY PRN (Reason: Constipation) RF: 0 Excedrin Extra Strength 250-250-65 mg Tablet 2 tab PO Q6H PRN (Reason: Pain) RF: 0 vitamin B complex Tablet 1 tab PO QAM RF: 0 Discontinued sulfamethoxazole-trimethoprim 800-160 mg tablet 1 tab PO BIDM RF: 0 Discharge Orders: Discharge Order (Routine); Ordered 09/29/21 Ordered By: Molly Gonsales/Other Patient Handouts: Managing Type 2 Diabetes, Special Foot [facility] for Diabetes Admission Data Admit Date/Time: 09/24/21 09:31 Attending Provider: Molly Keller Admit Provider: Willam Pederson Primary Care Provider: Case House Other Providers: Willam Pederson ; Joe Lucas ; Alex Hugo ; Jonathon Ha ; Hilton Charles I. ; David Steele II ; Tere Matias ; Rolando Liang ; Tee Guerra ; [facility] Other Interventions: Discharge Summary Assessment (RN) Last Done: 09/29/21 16:43
[2021-09-30] MEDS ORDERED: VANCOMYCIN TROUGH ONE (03:30)
== END 2021-09-29 18:26 | disposition home health service (06) | DRG 746 ==
LOC: ED 06:16 → SUATTDRO 09:31 → 2N 09:31

== ENCOUNTER 2022-06-05 19:02 | Inpatient (IN) ==
[2022-06-05] MEDS ORDERED: SODIUM CHLORIDE 0.9% 1000ML 1,000 ML IV ONE ×2 (19:27→20:57)
[2022-06-05] MEDS ORDERED: CEFEPIME 2,000 MG/20 ML VIAL IV STA (19:27)
--- NOTE | 2022-06-05 19:33 | Emergency Department Note ---
Impression & Plan Respiratory failure, Sepsis ED Provider Note NAME: SHIRLEY TREVIZO AGE: 81 SEX: F : 1940 ARRIVES VIA: Ambulance INFORMANT: Patient ED PROVIDER(S): Ajay Live DO CHIEF COMPLAINT: weak HPI: Patient is an 81-year-old female with a past medical history of NSTEMI, LVH, CAD, NSTEMI, GERD who presents to the ER for weakness. She got her COVID- vaccine yesterday. She was found to be febrile, weak and tachycardic. She denies any headache or change in vision. No chest pain or shortness of breath. No nausea, vomiting, or diarrhea. No dysuria, urgency, or frequency. No other exacerbating or remitting factors. She admits to a cough that is been getting worse over the past 2 weeks. ROS: See above HPI for pertinent positives & negatives. A total of 10 systems reviewed and were otherwise negative. PAST MEDICAL HISTORY:See Below PAST SURGICAL HISTORY:See Below FAMILY HISTORY:See Below SOCIAL HISTORY:See Below HOME MEDICATIONS:See Below ALLERGIES:See Below VITALS:See Below PHYSICAL EXAMINATION: GENERAL: Sitting up in bed, alert, ill-appearing, mild distress, on nasal cannula EYE EXAM: normal conjunctiva. OROPHARYNX:mucous membranes are dry LUNGS: Clear to auscultation. Normal chest wall mechanics HEART: Tachycardic, S1 normal and S2 normal ABDOMEN: abdomen soft, non-tender, normo-active bowel sounds, no masses, no rebound or guarding. BACK: Back is symmetrical on inspection and there is no deformity, no midline tenderness, no CVA tenderness. SKIN: no rashes and no bruising UPPER EXTREMITIES: upper extremities are grossly normal. LOWER EXTREMITIES: No pitting edema. NEURO EXAM: Normal sensorium, cranial nerves II-XII grossly intact, normal speech, no gross weakness of arms, no gross weakness of legs. MEDICAL DECISION MAKING: Patient is a 81-year-old female who presents ER for the boasting complaint. IV was established blood work was obtained. Labs show no significant leukocytosis or anemia. INR unremarkable. BMP along with LFTs bilirubin was unremarkable. Pro-Shaji slightly up at 0.68. TSH and troponin were negative. UA with white cells. Negative for leuks. Patient was covered with broad-spectrum antibiotics. RSV influenza and COVID were negative. Chest x-ray with questionable infiltrate. Patient was given IV fluids. She was updated bedside. Admitted to the hospitalist Dr. Tejeda for further evaluation. Remained stable on 2 L nasal cannula. Triage Nursing notes reviewed. Limited review of prior medical records performed Vital Signs: reviewed and remarkable for hypoxic, tachycardic and febrile Differential diagnosis: Differential diagnosis includes etiologies such as sepsis, UTI, pneumonia, metabolic, electrolyte abnormalities, cardiac sources, intracerebral event, toxicologic, neurological, as well as others were entertained. ER treatment provided: See below Diagnostics interpreted by me: ECG: Sinus tachycardia rate of 129 Left axis No PVCs QTC 421 Cardiac Monitoring: An order was placed for continuous cardiac monitoring. The monitor shows a rate of 122 with sinus rhythm. Laboratory studies: As stated above and show below. Imaging studies: Portable AP upright 1 view chest as described above Consultation(s): Discussed with Dr. Isaiah Tejeda for further evaluation Procedures: none Critical Care: I have personally spent 40 minutes of critical care time in the direct management of this patient. This includes bedside care, interpretation of diagnostic studies, and testing, discussion with consultants, patient, and family members, and other required patient management activities. This 40 minutes is in excess of all separately billable procedures. Past Med/Surg History Medical History Anxiety CAD (coronary artery disease) CKD (chronic kidney disease), stage III Dementia Diabetes mellitus, type II Diastolic dysfunction Dry eye syndrome Dyslipidemia GERD (gastroesophageal reflux disease) History of [place] (myocardial infarction) Hypertension Kidney stones LVH (left ventricular hypertrophy) Obesity Osteoarthritis Peripheral neuropathy Surgical History History of appendectomy History of carpal tunnel release left History of cataract surgery RT/LEFT History of discectomy LUMBAR (TOTAL 2 LUMBAR DISCECTOMY) History of hysterectomy History of tooth extraction Hx of colonoscopy with polypectomy Hx of eye surgery LASER PROCEDURE S/P cystoscopy with ureteral stent placement 05/13/19 MAC Family History Brother Family history of diabetes mellitus Other Cancer Heart disease Kidney disease Social History Smoking Status: Former smoker Tobacco Type: Cigarettes Second Hand Exposure: No; Hx Alcohol Use: No Hx Substance Use: No Preferred Language: Swedish Communication Ability: Effective Visual Impairment: No Limitations Hearing Ability: Normal Lead Recreation Assistant Required: No Beliefs That Will Affect Care: Sabianist Sabianist Beliefs: Temple marital status: Current Living Situation: Spouse current occupational status: retired Feels Safe at Home: Yes caffeine: Yes during the past year weight has: remained stable Physical Activity Frequency: Does not Exercise Seatbelt Use: always Do you think of yourself as: straight/heterosexual Gender Identity: Female Assistive Devices: Cane, Walker and Wheelchair Allergies Allergies Allergy/AdvReac Type Severity Reaction Status Date / Time COVID-19 vacc, bv (Orig, AdvReac Intermediate Verified 06/05/22 23:32 Omicron BA.4/5) (Pfizer) [From Pfizer COVID Bival(12y up)()] oxycodone AdvReac Intermediate OVER Verified 11/05/21 14:00 SEDATED Home Meds Home Medications Medication Instructions Recorded Confirmed omega-3 fatty acids 1,000 mg 2,000 mg PO QAM ##0 10/15/13 06/05/22 capsule omeprazole 20 mg tablet,delayed 20 mg PO QAM ##0 10/15/13 06/05/22 release coenzyme Q10 100 mg capsule 100 mg PO QAM ##0 01/04/16 06/05/22 atorvastatin 40 mg tablet 40 mg PO HS ##0 04/09/17 06/05/22 dicyclomine 10 mg capsule 10 mg PO QID PRN Abdominal Pain ##0 04/09/17 06/05/22 peg 400-propylene glycol 0.4 %-0.3 1 drp ophthalmic (eye) QID PRN Dry 05/12/19 06/05/22 % eye drops (Systane Ultra) Eye(S) vitamin B complex 1 tab PO QAM 09/21/20 06/05/22 lorazepam 0.5 mg tablet 0.5 mg PO TID PRN Anxiety 05/24/21 06/05/22 metformin 750 mg tablet,extended 750 mg PO BIDM 05/24/21 06/05/22 release 24 hr pregabalin 150 mg capsule 150 mg PO TID 05/24/21 06/05/22 repaglinide 0.5 mg tablet 0.5 mg PO TIDM 05/24/21 06/05/22 valerian root 100 mg capsule 100 mg PO QAM 05/24/21 06/05/22 aqjaecr-bgcwewfatnufe-tfcbihhz 250 2 tab PO Q6H PRN Pain 09/24/21 06/05/22 mg-250 mg-65 mg tablet (Excedrin Extra Strength) hydrochlorothiazide 25 mg tablet 25 mg PO QAM 09/24/21 06/05/22 magnesium 250 mg tablet 250 mg PO QAM 09/24/21 06/05/22 aspirin 325 mg tablet 325 mg PO DAILY 06/05/22 06/05/22 cyanocobalamin (vitamin B-12) 500 500 mcg PO BID 06/05/22 06/05/22 mcg tablet (Vitamin B-12) dulaglutide 1.5 mg/0.5 mL 1.5 mg subcut WK 06/05/22 06/05/22 subcutaneous pen injector (Trulicity) empagliflozin 10 mg tablet 10 mg PO DAILY 06/05/22 06/05/22 (Jardiance) Results & Data (ED) Vital Signs Vital Signs - 24 hr 06/05/22 19:26 06/05/22 19:27 06/05/22 19:39 Temperature 38.6 C H Temperature Source Oral Pulse Rate 130 H 128 H Pulse Rate from SpO2 Sensor Pulse Rhythm Regular Regular Pulse Strength Normal Respiratory Rate 20 20 Respiratory Effort / Characteristics Non-Labored Spontaneous Respiratory Depth Normal Respiratory Pattern Regular Blood Pressure 152/93 H Blood Pressure Mean 112 Blood Pressure Position Semi-fowlers Pulse Oximetry 91 91 91 Oxygen Delivery Method Room Air Room Air Room Air Oxygen Flow Rate 0 Sepsis Recent Fever Within 48 Hours Yes Sepsis New/Unexplained Change in Mental Status No Sepsis Action Taken by Nursing Physician Notified 06/05/22 19:30 06/05/22 19:31 06/05/22 19:40 Temperature Temperature Source Pulse Rate 129 H 128 H Pulse Rate from SpO2 Sensor 130 H 128 H Pulse Rhythm Pulse Strength Respiratory Rate 29 H 16 Respiratory Effort / Characteristics Respiratory Depth Respiratory Pattern Blood Pressure 152/93 H Blood Pressure Mean 112 Blood Pressure Position Pulse Oximetry 92 90 Oxygen Delivery Method Oxygen Flow Rate Sepsis Recent Fever Within 48 Hours Sepsis New/Unexplained Change in Mental Status Sepsis Action Taken by Nursing 06/05/22 19:50 06/05/22 20:00 06/05/22 20:10 Temperature Temperature Source Pulse Rate 128 H 131 H 129 H Pulse Rate from SpO2 Sensor 129 H 131 H 129 H Pulse Rhythm Pulse Strength Respiratory Rate 30 H 28 H 29 H Respiratory Effort / Characteristics Respiratory Depth Respiratory Pattern Blood Pressure Blood Pressure Mean Blood Pressure Position Pulse Oximetry 90 90 91 Oxygen Delivery Method Oxygen Flow Rate Sepsis Recent Fever Within 48 Hours Sepsis New/Unexplained Change in Mental Status Sepsis Action Taken by Nursing 06/05/22 20:20 06/05/22 20:30 06/05/22 21:01 Temperature Temperature Source Pulse Rate 130 H 129 H 130 H Pulse Rate from SpO2 Sensor 130 H 129 H 130 H Pulse Rhythm Pulse Strength Respiratory Rate 28 H 15 18 Respiratory Effort / Characteristics Respiratory Depth Respiratory Pattern Blood Pressure 132/81 Blood Pressure Mean 98 Blood Pressure Position Pulse Oximetry 91 88 L 98 Oxygen Delivery Method Nasal Cannula Oxygen Flow Rate 2 Sepsis Recent Fever Within 48 Hours Sepsis New/Unexplained Change in Mental Status Sepsis Action Taken by Nursing 06/05/22 21:45 Temperature Temperature Source Pulse Rate 122 H Pulse Rate from SpO2 Sensor 122 H Pulse Rhythm Pulse Strength Respiratory Rate 23 Respiratory Effort / Characteristics Respiratory Depth Respiratory Pattern Blood Pressure 116/79 Blood Pressure Mean 91 Blood Pressure Position Pulse Oximetry 97 Oxygen Delivery Method Nasal Cannula Oxygen Flow Rate 2 Sepsis Recent Fever Within 48 Hours Sepsis New/Unexplained Change in Mental Status Sepsis Action Taken by Nursing Laboratory Data Result diagrams: 06/05/22 20:03 06/05/22 20:03 Lab Results 06/05/22 06/05/22 06/05/22 Range/Units 20:03 20:03 20:03 WBC 5.24 (4.8-10.8) K/ul RBC 5.01 (3.93-5.22) M/uL Hgb 13.1 (12.0-16.0) g/dl Hct 42.4 (34.1-44.9) % MCV 84.6 (80.0-100.0) fL MCH 26.1 (25.0-34.0) pg MCHC 30.9 L (32.0-36.0) g/dL RDW Std Deviation 51.4 H (36.4-46.3) fL RDW Coeff of Pia 16.8 H (11.5-14.5) % Plt Count 169 (130-400) K/uL MPV 10.7 (9.4-12.3) fL Immature Gran % (Auto) 0.4 % Neut % (Auto) 77.1 % Lymph % (Auto) 13.7 % Keith % (Auto) 7.8 % Eos % (Auto) 0.4 % Baso % (Auto) 0.6 % Neut # (Auto) 4.04 (1.4-6.5) K/uL Lymph # (Auto) 0.72 L (1.2-3.4) K/uL Keith # (Auto) 0.41 (0.24-0.82) K/uL Eos # (Auto) 0.02 (0-0.50) K/uL Baso # (Auto) 0.03 (0-0.2) K/uL Immature Gran # (Auto) 0.02 (0.00-0.02) K/uL PT (9.0-12.0) Seconds INR (0.9-1.1) ABG pH (7.35-7.45) ABG pCO2 (35-46) mmHg ABG pO2 (80-95) mmHg ABG HCO3 (19-24) mmol/L ABG O2 Saturation (90-95) % ABG Base Excess (-9-1.8) mEq/L Talon Test (Pos) Oxygen Given Sodium 138 (136-145) mmol/L Potassium 4.2 (3.5-5.1) mmol/L Chloride 99 (98-107) mmol/L Carbon Dioxide 29 (21-32) mmol/L Anion Gap 10 (3-11) BUN 21 (6-23) mg/dl Creatinine 1.15 (0.6-1.2) mg/dl Est Cr Clr Drug Dosing 43.7 ml/min Est GFR ( Amer) 52.0 ml/min Est GFR (Non-Af Amer) 44.9 ml/min BUN/Creatinine Ratio 18.3 (10-20) Glucose 160 H (70-99(Fasting)) mg/dl Lactate 2.4 H* (0.4-2.0) mmol/L Calcium 10.2 H (8.5-10.1) mg/dl Magnesium 1.8 (1.7-2.4) mg/dl Total Bilirubin 0.7 (0.2-1.0) mg/dl Direct Bilirubin 0.2 (0-0.2) mg/dl AST 52 H (13-39) U/L ALT 42 (7-52) U/L Alkaline Phosphatase 76 (34-104) U/L Troponin I High Sens 14.0 (0-14) pg/ml Total Protein 8.2 (6.0-8.3) gm/dl Albumin 4.4 (3.4-5.0) gm/dl Lipase (11-82) U/L Procalcitonin (0-0.5) ng/ml TSH (0.300-4.500) uIu/ml Free T4 (0.61-1.60) ng/dl Urine Color Urine Appearance (Clear) Urine pH (4.5-7.5) Ur Specific Mulberry (1.000-1.030) Urine Protein (Negative) Urine Glucose (UA) (Negative) Urine Ketones (Negative) Urine Blood (Negative) Urine Nitrite (Negative) Urine Bilirubin (Negative) Urine Urobilinogen (Negative) Ur Leukocyte Esterase (Negative) Urine WBC (Auto) (0-5) /hpf Urine RBC (Auto) (0-4) /hpf U Hyaline Cast (Auto) (0-5) /lpf U Epithel Cells (Auto) (0-5) /lpf Urine Bacteria (Auto) (Negative) Urine Yeast (None Prsent) SARS-CoV-2 (PCR) (Negative) Influenza Type A (PCR) (Neg) Influenza Type B (PCR) (Neg) RSV (RT-PCR) (Neg) 06/05/22 06/05/22 06/05/22 Range/Units 20:03 20:03 20:03 WBC (4.8-10.8) K/ul RBC (3.93-5.22) M/uL Hgb (12.0-16.0) g/dl Hct (34.1-44.9) % MCV (80.0-100.0) fL MCH (25.0-34.0) pg MCHC (32.0-36.0) g/dL RDW Std Deviation (36.4-46.3) fL RDW Coeff of Pia (11.5-14.5) % Plt Count (130-400) K/uL MPV (9.4-12.3) fL Immature Gran % (Auto) % Neut % (Auto) % Lymph % (Auto) % Keith % (Auto) % Eos % (Auto) % Baso % (Auto) % Neut # (Auto) (1.4-6.5) K/uL Lymph # (Auto) (1.2-3.4) K/uL Keith # (Auto) (0.24-0.82) K/uL Eos # (Auto) (0-0.50) K/uL Baso # (Auto) (0-0.2) K/uL Immature Gran # (Auto) (0.00-0.02) K/uL PT 11.0 (9.0-12.0) Seconds INR 1.0 (0.9-1.1) ABG pH (7.35-7.45) ABG pCO2 (35-46) mmHg ABG pO2 (80-95) mmHg ABG HCO3 (19-24) mmol/L ABG O2 Saturation (90-95) % ABG Base Excess (-9-1.8) mEq/L Talon Test (Pos) Oxygen Given Sodium (136-145) mmol/L Potassium (3.5-5.1) mmol/L Chloride (98-107) mmol/L Carbon Dioxide (21-32) mmol/L Anion Gap (3-11) BUN (6-23) mg/dl Creatinine (0.6-1.2) mg/dl Est Cr Clr Drug Dosing ml/min Est GFR ( Amer) ml/min Est GFR (Non-Af Amer) ml/min BUN/Creatinine Ratio (10-20) Glucose (70-99(Fasting)) mg/dl Lactate (0.4-2.0) mmol/L Calcium (8.5-10.1) mg/dl Magnesium (1.7-2.4) mg/dl Total Bilirubin (0.2-1.0) mg/dl Direct Bilirubin (0-0.2) mg/dl AST (13-39) U/L ALT (7-52) U/L Alkaline Phosphatase (34-104) U/L Troponin I High Sens (0-14) pg/ml Total Protein (6.0-8.3) gm/dl Albumin (3.4-5.0) gm/dl Lipase (11-82) U/L Procalcitonin 0.68 H (0-0.5) ng/ml TSH 0.197 L (0.300-4.500) uIu/ml Free T4 1.17 (0.61-1.60) ng/dl Urine Color Urine Appearance (Clear) Urine pH (4.5-7.5) Ur Specific Mulberry (1.000-1.030) Urine Protein (Negative) Urine Glucose (UA) (Negative) Urine Ketones (Negative) Urine Blood (Negative) Urine Nitrite (Negative) Urine Bilirubin (Negative) Urine Urobilinogen (Negative) Ur Leukocyte Esterase (Negative) Urine WBC (Auto) (0-5) /hpf Urine RBC (Auto) (0-4) /hpf U Hyaline Cast (Auto) (0-5) /lpf U Epithel Cells (Auto) (0-5) /lpf Urine Bacteria (Auto) (Negative) Urine Yeast (None Prsent) SARS-CoV-2 (PCR) (Negative) Influenza Type A (PCR) (Neg) Influenza Type B (PCR) (Neg) RSV (RT-PCR) (Neg) 06/05/22 06/05/22 06/05/22 Range/Units 21:00 22:00 22:25 WBC (4.8-10.8) K/ul RBC (3.93-5.22) M/uL Hgb (12.0-16.0) g/dl Hct (34.1-44.9) % MCV (80.0-100.0) fL MCH (25.0-34.0) pg MCHC (32.0-36.0) g/dL RDW Std Deviation (36.4-46.3) fL RDW Coeff of Pia (11.5-14.5) % Plt Count (130-400) K/uL MPV (9.4-12.3) fL Immature Gran % (Auto) % Neut % (Auto) % Lymph % (Auto) % Keith % (Auto) % Eos % (Auto) % Baso % (Auto) % Neut # (Auto) (1.4-6.5) K/uL Lymph # (Auto) (1.2-3.4) K/uL Keith # (Auto) (0.24-0.82) K/uL Eos # (Auto) (0-0.50) K/uL Baso # (Auto) (0-0.2) K/uL Immature Gran # (Auto) (0.00-0.02) K/uL PT (9.0-12.0) Seconds INR (0.9-1.1) ABG pH 7.47 H (7.35-7.45) ABG pCO2 41 (35-46) mmHg ABG pO2 153 H (80-95) mmHg ABG HCO3 30 H (19-24) mmol/L ABG O2 Saturation > 100.0 H (90-95) % ABG Base Excess 5.6 H (-9-1.8) mEq/L Talon Test Pos (Pos) Oxygen Given 2 Sodium (136-145) mmol/L Potassium (3.5-5.1) mmol/L Chloride (98-107) mmol/L Carbon Dioxide (21-32) mmol/L Anion Gap (3-11) BUN (6-23) mg/dl Creatinine (0.6-1.2) mg/dl Est Cr Clr Drug Dosing ml/min Est GFR ( Amer) ml/min Est GFR (Non-Af Amer) ml/min BUN/Creatinine Ratio (10-20) Glucose (70-99(Fasting)) mg/dl Lactate (0.4-2.0) mmol/L Calcium (8.5-10.1) mg/dl Magnesium (1.7-2.4) mg/dl Total Bilirubin (0.2-1.0) mg/dl Direct Bilirubin (0-0.2) mg/dl AST (13-39) U/L ALT (7-52) U/L Alkaline Phosphatase (34-104) U/L Troponin I High Sens (0-14) pg/ml Total Protein (6.0-8.3) gm/dl Albumin (3.4-5.0) gm/dl Lipase (11-82) U/L Procalcitonin (0-0.5) ng/ml TSH (0.300-4.500) uIu/ml Free T4 (0.61-1.60) ng/dl Urine Color Yellow Urine Appearance Clear (Clear) Urine pH 6.5 (4.5-7.5) Ur Specific Mulberry 1.027 (1.000-1.030) Urine Protein 1+ H (Negative) Urine Glucose (UA) 3+ H (Negative) Urine Ketones Trace H (Negative) Urine Blood Negative (Negative) Urine Nitrite Negative (Negative) Urine Bilirubin Negative (Negative) Urine Urobilinogen Negative (Negative) Ur Leukocyte Esterase Negative (Negative) Urine WBC (Auto) 10-30 H (0-5) /hpf Urine RBC (Auto) 0-4 (0-4) /hpf U Hyaline Cast (Auto) 0 (0-5) /lpf U Epithel Cells (Auto) 0-5 (0-5) /lpf Urine Bacteria (Auto) Negative (Negative) Urine Yeast Budding A (None Prsent) SARS-CoV-2 (PCR) NEGATIVE (Negative) Influenza Type A (PCR) Negative (Neg) Influenza Type B (PCR) Negative (Neg) RSV (RT-PCR) Negative (Neg) 06/05/22 06/05/22 Range/Units 22:25 22:53 WBC (4.8-10.8) K/ul RBC (3.93-5.22) M/uL Hgb (12.0-16.0) g/dl Hct (34.1-44.9) % MCV (80.0-100.0) fL MCH (25.0-34.0) pg MCHC (32.0-36.0) g/dL RDW Std Deviation (36.4-46.3) fL RDW Coeff of Pia (11.5-14.5) % Plt Count (130-400) K/uL MPV (9.4-12.3) fL Immature Gran % (Auto) % Neut % (Auto) % Lymph % (Auto) % Keith % (Auto) % Eos % (Auto) % Baso % (Auto) % Neut # (Auto) (1.4-6.5) K/uL Lymph # (Auto) (1.2-3.4) K/uL Keith # (Auto) (0.24-0.82) K/uL Eos # (Auto) (0-0.50) K/uL Baso # (Auto) (0-0.2) K/uL Immature Gran # (Auto) (0.00-0.02) K/uL PT (9.0-12.0) Seconds INR (0.9-1.1) ABG pH (7.35-7.45) ABG pCO2 (35-46) mmHg ABG pO2 (80-95) mmHg ABG HCO3 (19-24) mmol/L ABG O2 Saturation (90-95) % ABG Base Excess (-9-1.8) mEq/L Talon Test (Pos) Oxygen Given Sodium (136-145) mmol/L Potassium (3.5-5.1) mmol/L Chloride (98-107) mmol/L Carbon Dioxide (21-32) mmol/L Anion Gap (3-11) BUN (6-23) mg/dl Creatinine (0.6-1.2) mg/dl Est Cr Clr Drug Dosing ml/min Est GFR ( Amer) ml/min Est GFR (Non-Af Amer) ml/min BUN/Creatinine Ratio (10-20) Glucose (70-99(Fasting)) mg/dl Lactate 0.8 (0.4-2.0) mmol/L Calcium (8.5-10.1) mg/dl Magnesium (1.7-2.4) mg/dl Total Bilirubin (0.2-1.0) mg/dl Direct Bilirubin (0-0.2) mg/dl AST (13-39) U/L ALT (7-52) U/L Alkaline Phosphatase (34-104) U/L Troponin I High Sens (0-14) pg/ml Total Protein (6.0-8.3) gm/dl Albumin (3.4-5.0) gm/dl Lipase 17 (11-82) U/L Procalcitonin (0-0.5) ng/ml TSH (0.300-4.500) uIu/ml Free T4 (0.61-1.60) ng/dl Urine Color Urine Appearance (Clear) Urine pH (4.5-7.5) Ur Specific Mulberry (1.000-1.030) Urine Protein (Negative) Urine Glucose (UA) (Negative) Urine Ketones (Negative) Urine Blood (Negative) Urine Nitrite (Negative) Urine Bilirubin (Negative) Urine Urobilinogen (Negative) Ur Leukocyte Esterase (Negative) Urine WBC (Auto) (0-5) /hpf Urine RBC (Auto) (0-4) /hpf U Hyaline Cast (Auto) (0-5) /lpf U Epithel Cells (Auto) (0-5) /lpf Urine Bacteria (Auto) (Negative) Urine Yeast (None Prsent) SARS-CoV-2 (PCR) (Negative) Influenza Type A (PCR) (Neg) Influenza Type B (PCR) (Neg) RSV (RT-PCR) (Neg) Administered Medications Discontinued Medications Acetaminophen (Acetaminophen 325 Mg Tab) 650 mg PO NOW STA Stop: 06/05/22 20:44 Last Admin: 06/05/22 21:55 Dose: Not Given Documented By: DHARMESH Sodium Chloride (Nss 1000ml) 1,000 mls @ 999 mls/hr IV .Q1H1M ONE Stop: 06/05/22 20:27 Last Infusion: 06/05/22 21:56 Dose: 0 mls/hr Documented By: Admin: 06/05/22 20:20 Dose: 999 mls/hr Documented By: [id number] Cefepime HCl (Maxipime) 2,000 mg in 20 mls @ 5 mls/min IV NOW STA; Protocol Stop: 06/05/22 19:30 Last Admin: 06/05/22 20:21 Dose: 5 mls/min Documented By: [id number] Sodium Chloride (Nss 1000ml) 1,000 mls @ 999 mls/hr IV .Q1H1M ONE Stop: 06/05/22 21:57 Last Admin: 06/05/22 21:51 Dose: 999 mls/hr Documented By: DHARMESH Doxycycline Hyclate 100 mg/ (Dextrose) 110 mls @ 50 mls/hr IV NOW STA Stop: 06/05/22 23:25 Last Admin: 06/05/22 21:54 Dose: 50 mls/hr Documented By: DHARMESH Magnesium Sulfate/Dextrose (Magnesium Sulfate / D5w) 1 gm in 100 mls @ 50 mls/hr IV ONE ONE Stop: 06/05/22 23:14 Last Infusion: 06/05/22 23:52 Dose: 0 mls/hr Documented By: Admin: 06/05/22 21:52 Dose: 50 mls/hr Documented By: DHARMESH Methylprednisolone 20 mg/ (Syringe) 0.32 mls @ 1.5 mls/min IV NOW STA Stop: 06/05/22 22:52 Last Admin: 06/05/22 23:55 Dose: Not Given Documented By: NABIL Ioversol (Optiray 350 100ml) 84 ml IV ONCE ONE Stop: 06/05/22 23:17 Last Admin: 06/05/22 23:16 Dose: 84 ml Documented By: BOBBY Imaging Data Radiologist's Impression: Chest X-Ray 06/05/22 19:28 XR chest 1V portable HISTORY: 81 years-old Female Sepsis acute sepsis COMPARISON: 09/28/2019 chest radiograph, CTA chest 06/09/2021 TECHNIQUE: Semierect AP view of the chest FINDINGS: Cardiac silhouette is enlarged. Atherosclerosis of the aorta. Rightward deviation of the trachea is again noted secondary to thyroid goiter. No pneumothorax, pleural effusion, or overt pulmonary edema. Mild right hemid iaphragmatic elevation. Mild retrocardiac left basilar densities. Bones appear grossly intact. IMPRESSION: 1. Cardiomegaly without overt pulmonary edema. 2. Retrocardiac left basilar opacities favors atelectasis. ACT 112: Negative or not required by law. The above report was generated using voice recognition software. It may contain grammatical, syntax or spelling errors. Electronically signed by: Gabe Berg M.D. 06/05/2022 8:19 PM Discharge Plan Visit Data Chief Complaint: Weakness ED Provider: Ajay Live Discharge Problem: Respiratory failure, Sepsis Forms Stand Alone Forms: My [facility] [employer] Prescriptions Prescriptions: No Action omega-3 fatty acids 1,000 mg Capsule 2,000 mg PO QAM Qty: 0 omeprazole 20 mg Tablet,Delayed Release (Dr/Ec) 20 mg PO QAM Qty: 0 coenzyme Q10 100 mg Capsule 100 mg PO QAM Qty: 0 atorvastatin 40 mg Tablet 40 mg PO HS Qty: 0 dicyclomine 10 mg Capsule 10 mg PO QID PRN (Reason: Abdominal Pain) Qty: 0 Systane Ultra 0.4-0.3 % Drops 1 drp OPHTHALMIC (EYE) QID PRN (Reason: Dry Eye(S)) lorazepam 0.5 mg tablet 0.5 mg PO TID PRN (Reason: Anxiety) pregabalin 150 mg capsule 150 mg PO TID repaglinide 0.5 mg tablet 0.5 mg PO TIDM Rx Instructions: Take before meals valerian root 100 mg Capsule 100 mg PO QAM metformin 750 mg tablet extended release 24 hr 750 mg PO BIDM magnesium 250 mg Tablet 250 mg PO QAM hydrochlorothiazide 25 mg tablet 25 mg PO QAM Excedrin Extra Strength 250-250-65 mg Tablet 2 tab PO Q6H PRN (Reason: Pain) Jardiance 10 mg tablet 10 mg PO DAILY Trulicity 1.5 mg/0.5 mL pen injector 1.5 mg SUBCUT WK aspirin 325 mg Tablet 325 mg PO DAILY cyanocobalamin (vitamin B-12) [Vitamin B-12] 500 mcg Tablet 500 mcg PO BID vitamin B complex Tablet 1 tab PO QAM Referrals Referrals: [facility] MD [Primary Care Provider] -
--- NOTE | 2022-06-05 20:20 | XRay Report ---
XR chest 1V portable HISTORY: 81 years-old Female Sepsis acute sepsis COMPARISON: 09/28/2019 chest radiograph, CTA chest 06/09/2021 TECHNIQUE: Semierect AP view of the chest FINDINGS: Cardiac silhouette is enlarged. Atherosclerosis of the aorta. Rightward deviation of the trachea is a gain noted secondary to thyroid goiter. No pneumothorax, pleural effusion, or overt pulmonary edema. Mild right hemidiaphragmatic elevation. Mild retrocardiac left basilar densities. Bones appear grossl y intact. IMPRESSION: 1. Cardiomegaly without overt pulmonary edema. 2. Retrocardiac left basilar opacities favors atelectasis. ACT 112: Negative or not required by law. The above report was generated using voice recognition software. It may contain grammatical, syntax o r spelling errors. Electronically signed by: Gabe Berg M.D. 06/05/2022 8:19 PM
[2022-06-05 20:21] LABS: Basophils # (auto) 0.03 K/uL (0-0.2); Basophils % (auto) 0.6 %; Eosinophils # (auto) 0.02 K/uL (0-0.50); Eosinophils % (auto) 0.4 %; Hematocrit (blood only) 42.4 % (34.1-44.9); Hemoglobin 13.1 g/dl (12.0-16.0); Immature Granulocytes # (auto) 0.02 K/uL (0.00-0.02); Immature Granulocytes % (auto) 0.4 %; Lymphocytes # (auto) 0.72 K/uL (1.2-3.4); Lymphocytes % (auto) 13.7 %; Mean Corpuscular Hemoglobin 26.1 pg (25.0-34.0); Mean Corpuscular Hgb Conc 30.9 g/dL (32.0-36.0); Mean Corpuscular Volume 84.6 fL (80.0-100.0); Mean Platelet Volume 10.7 fL (9.4-12.3); Monocytes # (auto) 0.41 K/uL (0.24-0.82); Monocytes % (auto) 7.8 %; Neutrophils # (auto) 4.04 K/uL (1.4-6.5); Neutrophils % (auto) 77.1 %; Platelet Count 169 K/uL (130-400); RDW Coefficient of Variation 16.8 % (11.5-14.5); RDW Standard Deviation 51.4 fL (36.4-46.3); Red Blood Count 5.01 M/uL (3.93-5.22); White Blood Count 5.24 K/ul (4.8-10.8)
[2022-06-05 20:41] LABS: Albumin Level 4.4 gm/dl (3.4-5.0); BUN Creatinine Ratio 18.3 (10-20); Bilirubin Direct 0.2 mg/dl (0-0.2); Bilirubin,Total 0.7 mg/dl (0.2-1.0); Calcium 10.2 mg/dl (8.5-10.1); Creatinine Clr Calc Pharmacy 43.7 ml/min; Est GFR (Non-African American) 44.9 ml/min; Magnesium 1.8 mg/dl (1.7-2.4); Potassium 4.2 mmol/L (3.5-5.1); Total Protein 8.2 gm/dl (6.0-8.3)
[2022-06-05] MEDS ORDERED: ACETAMINOPHEN 325 MG TAB PO STA (20:43)
[2022-06-05] MEDS ORDERED: DOXYCYCLINE HYCLATE 100 MG in DEXTROSE 5% 100 ML IV STA (21:14)
[2022-06-05] MEDS ORDERED: MAGNESIUM SULFATE / D5W 1 GM/100 ML BAG IV ONE (21:15)
[2022-06-05] MEDS ORDERED: LACTATED RINGER'S 1,000 ML IV ONE (21:30)
[2022-06-05 21:39] LABS: Appearance Urine Clear (Clear); Bacteria Urine Automated Negative (Negative); Bilirubin Urine Negative (Negative); Blood Urine Negative (Negative); Cast Urine Automated 0 /lpf (0-5); Color Urine Yellow; Epithelial Cell Urine Auto 0-5 /lpf (0-5); Glucose Urine UA 3+ (Negative); Ketones Urine Trace (Negative); Leukocyte Esterase Urine Negative (Negative); Nitrite Urine Negative (Negative); Protein Urine 1+ (Negative); RBC Urine Automated 0-4 /hpf (0-4); Specific Gravity Urine 1.027 (1.000-1.030); Urobilinogen Urine Negative (Negative); pH Urine 6.5 (4.5-7.5)
[2022-06-05 22:25] LABS: Thyroid Stimulating Hormone 0.197 uIu/ml (0.300-4.500)
[2022-06-05 22:33] LABS: Base Excess ABG 5.6 mEq/L (-9-1.8); HCO3 ABG 30 mmol/L (19-24); Oxygen Saturation ABG > 100.0 % (90-95); PCO2 ABG 41 mmHg (35-46); PO2 ABG 153 mmHg (80-95); pH ABG 7.47 (7.35-7.45)
[2022-06-05 22:38] LABS: Allen Test Pos (Pos)
[2022-06-05] MEDS ORDERED: methylPREDNISolone 20 MG in SYRINGE 0 ML IV STA (22:51)
--- NOTE | 2022-06-05 22:54 | History & Physical Report ---
Date of Service June 05, 2022 Assessment & Plan (1) Sepsis: Plan: Severe sepsis SIRS plus hypoxemic respiratory failure secondary to complicated bronchitis/possible atypical pneumonia Recent COVID-19 vaccination chronic diastolic heart failure, patient on the dry side. hypertension, elevated secondary discomfort history CVA DM2 on oral medications, well-controlled as of recent hemoglobin A1c of 7.1 last September 2021 CRI, creatinine better than baseline anxiety disorder/dementia as per records, at baseline as per past tobacco abuse Medical telemetry CS, Doxycycline IVF Supplemental O2 Solu-Medrol 1 dose now given hypoxemia Nebs RTC Basal bolus insulin, ISS BG goal 1 10-1 40, carb count coverage DVT prophylaxis. Lovenox subcu Full code as per , Mr Chance Vargas. He requests updates from providers through [id number]. Total critical care time was 40 minutes. Text document was generated using [employer] voice recognition software. It may contain grammatical or spelling errors. Kindly contact undersigned for clarification of any documentation item in question. History of Present Illness Chief Complaint: Fever, weak Primary Care Provider: [facility] MD History obtained from patient, family, and records. Patient is a fair historian. Medical history significant for chronic diastolic heart failure (EF 50 to 55%, TTE 2020), hypertension, hyperlipidemia, history CVA, DM2 on oral medications, CRI (baseline creatinine 1.3 ), anxiety disorder, dementia as per records, past tobacco abuse. Last confinement 2021 for right groin cellulitis/abscess status post drainage. Patient received COVID-19 vaccination yesterday outpatient. This morning, patient noted to be febrile, weak by . Junky cough symptoms without chest pain or shortness of breath. Denies aspiration. Patient with achy lower abdominal pain complaints without diarrhea/constipation. Patient always gets sick after COVID vaccination as per . Patient brought to the ER for evaluation. Cefepime administered for sepsis. O2 sats noted to be 80s on air at 1 point during ER stay. 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, lives with Allergies Allergy/AdvReac Type Severity Reaction Status Date / Time COVID-19 vacc, bv (Orig, AdvReac Intermediate Verified 06/05/22 23:32 Omicron BA.4/5) (Pfizer) [From Pfizer COVID Bival(12y up)(PF)] oxycodone AdvReac Intermediate OVER Verified 11/05/21 14:00 SEDATED Home Medications Medication Instructions Recorded Confirmed Type omega-3 fatty acids 1,000 mg 2,000 mg PO QAM ##0 10/15/13 06/05/22 History capsule omeprazole 20 mg tablet,delayed 20 mg PO QAM ##0 10/15/13 06/05/22 History release coenzyme Q10 100 mg capsule 100 mg PO QAM ##0 01/04/16 06/05/22 History atorvastatin 40 mg tablet 40 mg PO HS ##0 04/09/17 06/05/22 History dicyclomine 10 mg capsule 10 mg PO QID PRN Abdominal Pain ##0 04/09/17 06/05/22 History peg 400-propylene glycol 0.4 %-0.3 1 drp ophthalmic (eye) QID PRN Dry 05/12/19 06/05/22 History % eye drops (Systane Ultra) Eye(S) vitamin B complex 1 tab PO QAM 09/21/20 06/05/22 History lorazepam 0.5 mg tablet 0.5 mg PO TID PRN Anxiety 05/24/21 06/05/22 History metformin 750 mg tablet,extended 750 mg PO BIDM 05/24/21 06/05/22 History release 24 hr pregabalin 150 mg capsule 150 mg PO TID 05/24/21 06/05/22 History repaglinide 0.5 mg tablet 0.5 mg PO TIDM 05/24/21 06/05/22 History valerian root 100 mg capsule 100 mg PO QAM 05/24/21 06/05/22 History ckaumub-ctfusmibtaunp-ckhuvgvi 250 2 tab PO Q6H PRN Pain 09/24/21 06/05/22 History mg-250 mg-65 mg tablet (Excedrin Extra Strength) hydrochlorothiazide 25 mg tablet 25 mg PO QAM 09/24/21 06/05/22 History magnesium 250 mg tablet 250 mg PO QAM 09/24/21 06/05/22 History aspirin 325 mg tablet 325 mg PO DAILY 06/05/22 06/05/22 History cyanocobalamin (vitamin B-12) 500 500 mcg PO BID 06/05/22 06/05/22 History mcg tablet (Vitamin B-12) dulaglutide 1.5 mg/0.5 mL 1.5 mg subcut WK 06/05/22 06/05/22 History subcutaneous pen injector (Trulicity) empagliflozin 10 mg tablet 10 mg PO DAILY 06/05/22 06/05/22 History (Jardiance) Past Med/Surg History Medical History Anxiety CAD (coronary artery disease) CKD (chronic kidney disease), stage III Dementia Diabetes mellitus, type II Diastolic dysfunction Dry eye syndrome Dyslipidemia GERD (gastroesophageal reflux disease) History of OH (myocardial infarction) Hypertension Kidney stones LVH (left ventricular hypertrophy) Obesity Osteoarthritis Peripheral neuropathy Surgical History History of appendectomy History of carpal tunnel release left History of cataract surgery RT/LEFT History of discectomy LUMBAR (TOTAL 2 LUMBAR DISCECTOMY) History of hysterectomy History of tooth extraction Hx of colonoscopy with polypectomy Hx of eye surgery LASER PROCEDURE S/P cystoscopy with ureteral stent placement 05/13/19 MAC Family History Brother Family history of diabetes mellitus Other Cancer Heart disease Kidney disease Social History Smoking Status: Never smoker Tobacco Type: Cigarettes Second Hand Exposure: No; Hx Alcohol Use: No Hx Substance Use: No Preferred Language: Japanese Communication Ability: Effective Visual Impairment: No Limitations Hearing Ability: Normal Physician Assistant Surgery Required: No Beliefs That Will Affect Care: None marital status: Current Living Situation: Spouse current occupational status: retired Feels Safe at Home: Yes Safety Concerns: Feels Safe At This Time caffeine: Yes during the past year weight has: remained stable Physical Activity Frequency: Does not Exercise Seatbelt Use: always Do you think of yourself as: straight/heterosexual Gender Identity: Female Assistive Devices: Walker Review of Systems Review of Systems: As per HPI, all other systems reviewed and negative Physical Exam Physical Exam: GENERAL: uncomfortable, slightly hard of hearing, obese, minimal respiratory distress SKIN: Normal color, warm HEENT: [place] palpebral conjunctivae, no ptosis, dry buccal mucosa, nasal cannula in place NECK : Supple, short neck, no tenderness CHEST : Decreased breath sounds, occasional expiratory wheezes, no tenderness HEART : Tachycardic, no obvious murmurs ABDOMEN: Marked abdominal distention, nontender EXTREMITIES : Minimal LE swelling, no tenderness, no other conspicuous deformities noted NEUROLOGIC : Coherent, slightly hard of hearing, no facial asymmetry, gait and stance not assessed Results & Data Results & Data ([facility]) Vital Signs (Past 12 Hours) Vital Signs Temp Pulse Resp BP Pulse Ox O2 Del Method O2 Flow Rate 06/05/22 21:45 122 H 23 116/79 97 Nasal Cannula 2 06/05/22 21:01 130 H 18 132/81 98 Nasal Cannula 2 06/05/22 20:30 129 H 15 88 L 06/05/22 20:20 130 H 28 H 91 06/05/22 20:10 129 H 29 H 91 06/05/22 20:00 131 H 28 H 90 06/05/22 19:50 128 H 30 H 90 06/05/22 19:40 128 H 16 90 06/05/22 19:31 129 H 29 H 92 06/05/22 19:30 152/93 H 06/05/22 19:39 128 H 20 91 Room Air 06/05/22 19:27 38.6 C H 130 H 20 152/93 H 91 Room Air 06/05/22 19:26 91 Room Air 0 Laboratory Results Laboratory Results WBC 5.24 K/ul (4.8-10.8) 06/05/22 20:03 RBC 5.01 M/uL (3.93-5.22) 06/05/22 20:03 Hgb 13.1 g/dl (12.0-16.0) 06/05/22 20:03 Hct 42.4 % (34.1-44.9) 06/05/22 20:03 MCV 84.6 fL (80.0-100.0) 06/05/22 20:03 MCH 26.1 pg (25.0-34.0) 06/05/22 20:03 MCHC 30.9 g/dL (32.0-36.0) L 06/05/22 20:03 RDW Std Deviation 51.4 fL (36.4-46.3) H 06/05/22 20: RDW Coeff of Pia 16.8 % (11.5-14.5) H 06/05/22 20:03 Plt Count 169 K/uL (130-400) 06/05/22 20: MPV 10.7 fL (9.4-12.3) 06/05/22 20:03 Immature Gran % (Auto) 0.4 % 06/05/22 20:03 Neut % (Auto) 77.1 % 06/05/22 20:03 Lymph % (Auto) 13.7 % 06/05/22 20:03 Warren % (Auto) 7.8 % 06/05/22 20: Eos % (Auto) 0.4 % 06/05/22 20:03 Baso % (Auto) 0.6 % 06/05/22 20: Neut # (Auto) 4.04 K/uL (1.4-6.5) 06/05/22 20:03 Lymph # (Auto) 0.72 K/uL (1.2-3.4) L 06/05/22 20:03 Warren # (Auto) 0.41 K/uL (0.24-0.82) 06/05/22 20:03 Eos # (Auto) 0.02 K/uL (0-0.50) 06/05/22 20:03 Baso # (Auto) 0.03 K/uL (0-0.2) 06/05/22 20: Immature Gran # (Auto) 0.02 K/uL (0.00-0.02) 06/05/22 20:03 PT 11.0 Seconds (9.0-12.0) 06/05/22 20: INR 1.0 (0.9-1.1) 06/05/22 20:03 ABG pH 7.47 (7.35-7.45) H 06/05/22 22:25 ABG pCO2 41 mmHg (35-46) 06/05/22 22:25 ABG pO2 153 mmHg (80-95) H 06/05/22 22:25 ABG HCO3 30 mmol/L (19-24) H 06/05/22 22:25 ABG O2 Saturation > 100.0 % (90-95) H 06/05/22 22:25 ABG Base Excess 5.6 mEq/L (-9-1.8) H 06/05/22 22:25 Talon Test Pos (Pos) 06/05/22 22:25 Oxygen Given 2 06/05/22 22:25 Sodium 138 mmol/L (136-145) 06/05/22 20:03 Potassium 4.2 mmol/L (3.5-5.1) 06/05/22 20:03 Chloride 99 mmol/L (98-107) 06/05/22 20:03 Carbon Dioxide 29 mmol/L (21-32) 06/05/22 20:03 Anion Gap 10 (3-11) 06/05/22 20:03 BUN 21 mg/dl (6-23) 06/05/22 20:03 Creatinine 1.15 mg/dl (0.6-1.2) 06/05/22 20:03 Est Cr Clr Drug Dosing 43.7 ml/min 06/05/22 20:03 Est GFR ( Amer) 52.0 ml/min 06/05/22 20:03 Est GFR (Non-Af Amer) 44.9 ml/min 06/05/22 20:03 BUN/Creatinine Ratio 18.3 (10-20) 06/05/22 20:03 Glucose 160 mg/dl (70-99(Fasting)) H 06/05/22 20:03 Lactate 0.8 mmol/L (0.4-2.0) 06/05/22 22:25 Calcium 10.2 mg/dl (8.5-10.1) H 06/05/22 20:03 Magnesium 1.8 mg/dl (1.7-2.4) 06/05/22 20:03 Total Bilirubin 0.7 mg/dl (0.2-1.0) 06/05/22 20:03 Direct Bilirubin 0.2 mg/dl (0-0.2) 06/05/22 20:03 AST 52 U/L (13-39) H 06/05/22 20:03 ALT 42 U/L (7-52) 06/05/22 20:03 Alkaline Phosphatase 76 U/L (34-104) 06/05/22 20:03 Troponin I High Sens 14.0 pg/ml (0-14) 06/05/22 20:03 Total Protein 8.2 gm/dl (6.0-8.3) 06/05/22 20:03 Albumin 4.4 gm/dl (3.4-5.0) 06/05/22 20:03 Procalcitonin 0.68 ng/ml (0-0.5) H 06/05/22 20:03 TSH 0.197 uIu/ml (0.300-4.500) L 06/05/22 20:03 Urine Color Yellow 06/05/22 21:00 Urine Appearance Clear (Clear) 06/05/22 21:00 Urine pH 6.5 (4.5-7.5) 06/05/22 21:00 Ur Specific [place] 1.027 (1.000-1.030) 06/05/22 21:00 Urine Protein 1+ (Negative) H 06/05/22 21:00 Urine Glucose (UA) 3+ (Negative) H 06/05/22 21:00 Urine Ketones Trace (Negative) H 06/05/22 21:00 Urine Blood Negative (Negative) 06/05/22 21:00 Urine Nitrite Negative (Negative) 06/05/22 21:00 Urine Bilirubin Negative (Negative) 06/05/22 21:00 Urine Urobilinogen Negative (Negative) 06/05/22 21:00 Ur Leukocyte Esterase Negative (Negative) 06/05/22 21:00 Urine WBC (Auto) 10-30 /hpf (0-5) H 06/05/22 21:00 Urine RBC (Auto) 0-4 /hpf (0-4) 06/05/22 21:00 U Hyaline Cast (Auto) 0 /lpf (0-5) 06/05/22 21:00 U Epithel Cells (Auto) 0-5 /lpf (0-5) 06/05/22 21:00 Urine Bacteria (Auto) Negative (Negative) 06/05/22 21:00 Urine Yeast Budding (None Prsent) A 06/05/22 21:00 Impressions Chest X-Ray 06/05/22 19:28 XR chest 1V portable HISTORY: 81 years-old Female Sepsis acute sepsis COMPARISON: 09/28/2019 chest radiograph, CTA chest 06/09/2021 TECHNIQUE: Semierect AP view of the chest FINDINGS: Cardiac silhouette is enlarged. Atherosclerosis of the aorta. Rightward deviation of the trachea is again noted secondary to thyroid goiter. No pneumothorax, pleural effusion, or overt pulmonary edema. Mild right hemidiaphragmatic elevation. Mild retrocardiac left basilar densities. Bones appear grossly intact. IMPRESSION: 1. Cardiomegaly without overt pulmonary edema. 2. Retrocardiac left basilar opacities favors atelectasis. ACT 112: Negative or not required by law. The above report was generated using voice recognition software. It may contain grammatical, syntax or spelling errors. Electronically signed by: Gabe Berg M.D. 06/05/2022 8:[address] abdomen pelvis initial read: Fattyinfiltration of the liver. The remaining solid organs are within normal limits. Diverticulosis. No bowel obstruction. No acute fracture. EKG as per my interpretation :Rate 130, sinus tachycardia, LAD, LAFB, T wave abnormality septal leads
[2022-06-05 22:58] LABS: T4 Free Thyroxine 1.17 ng/dl (0.61-1.60)
[2022-06-05 23:01] LABS: Influenza A virus by PCR Negative (Neg); Influenza B virus by PCR Negative (Neg); RSV by PCR Negative (Neg); SARS CoV2 RNA(COVID-19) Ceph NEGATIVE (Negative)
[2022-06-05] MEDS ORDERED: OPTIRAY 350 100ml IV ONE (23:16)
[2022-06-06] MEDS ORDERED: GLUCOSE 10 TAB/TUBE PO PRN (00:28)
[2022-06-06] MEDS ORDERED: CARBOHYDRATES FOR HYPOGLYCEMIA PO PRN (00:28)
[2022-06-06] MEDS ORDERED: PROMETHAZINE HCL 12.5 MG in SODIUM CHLORIDE 0.9% 50 ML IV PRN (00:28)
[2022-06-06] MEDS ORDERED: GLUCOSE 40% GEL 15 GM TUBE PO PRN (00:28)
[2022-06-06] MEDS ORDERED: GLUCAGON FOR INJ 1 MG VIAL SQ PRN (00:28)
[2022-06-06] MEDS ORDERED: DEXTROSE 50% 50 ML SYRINGE IV PRN (00:28)
[2022-06-06] MEDS ORDERED: ARTIFICIAL TEARS OP PRN (01:17)
[2022-06-06] MEDS: INSULIN ASPART PER UNIT SC SCH ×5 (01:50→20:33)
[2022-06-06] MEDS: LANTUS PER UNIT CHARGE SQ SCH ×2 (01:51→20:33)
[2022-06-06 05:03] LABS: Basophils # (auto) 0.02 K/uL (0-0.2); Basophils % (auto) 0.5 %; Eosinophils # (auto) 0.13 K/uL (0-0.50); Eosinophils % (auto) 3.1 %; Hematocrit (blood only) 36.2 % (34.1-44.9); Hemoglobin 11.2 g/dl (12.0-16.0); Immature Granulocytes # (auto) 0.02 K/uL (0.00-0.02); Immature Granulocytes % (auto) 0.5 %; Lymphocytes % (auto) 14.4 %; Mean Corpuscular Hemoglobin 26.3 pg (25.0-34.0); Mean Corpuscular Hgb Conc 30.9 g/dL (32.0-36.0); Mean Platelet Volume 10.3 fL (9.4-12.3); Monocytes # (auto) 0.55 K/uL (0.24-0.82); Monocytes % (auto) 13.2 %; Neutrophils # (auto) 2.85 K/uL (1.4-6.5); Neutrophils % (auto) 68.3 %; Platelet Count 137 K/uL (130-400); RDW Coefficient of Variation 16.8 % (11.5-14.5); RDW Standard Deviation 51.5 fL (36.4-46.3); Red Blood Count 4.26 M/uL (3.93-5.22); White Blood Count 4.17 K/ul (4.8-10.8)
[2022-06-06] MEDS: ACETAMINOPHEN 325 MG TAB PO PRN (05:28)
[2022-06-06] MEDS ORDERED: XOPENEX/ATROVENT 1.25mg/0.5MG NEB COMBO NEB STA (05:31)
[2022-06-06] MEDS ORDERED: IPRATROPIUM BROMIDE NEB SOLN 0.02% 2.5 ML VIAL INH STA (05:43)
[2022-06-06] MEDS ORDERED: LEVALBUTEROL 1.25MG/0.5ML NEB INH STA (05:43)
[2022-06-06 05:46] LABS: BUN Creatinine Ratio 17.6 (10-20); Calcium 9.1 mg/dl (8.5-10.1); Creatinine Clr Calc Pharmacy 49.3 ml/min; Est GFR (African American) 60.2 ml/min; Est GFR (Non-African American) 51.9 ml/min
[2022-06-06] MEDS ORDERED: methylPREDNISolone 20 MG in SYRINGE 0 ML IV STA (05:48)
--- NOTE | 2022-06-06 07:54 | CT Scan Report ---
ABDOMEN AND PELVIS CT WITH IV CONTRAST CT DOSE: 1034.40 mGy.cm HISTORY: Generalized abdominal pain. TECHNIQUE: Multiaxial CT images of the abdomen and pelvis were performed following the use of intrave nous contrast. A dose lowering technique was utilized adhering to the principles of ALARA. COMPARISON STUDY: Abdomen and pelvis CT 09/24/2021. FINDINGS: There is an old mild to moderate superior endplate compression deformity at L1. Mild depend ent changes and mild interstitial thickening at the lung bases. No pneumoperitoneum. No pneumatosis. Hepatic steatosis. The gallbladder, spleen, adrenal glands, and pancreas are unremarkable. There are few punctate bilateral renal calculi. A few small subcentimeter hypodense renal lesions remain stable . These are technically too small to characterize but favor cysts. No ureteral stones. No hydronephro sis. The main portal vein is patent. No retroperitoneal lymphadenopathy. The abdominal aorta measures up to 3 cm in diameter at the level of the renal arteries. This remains unchanged. There is a left c ircumaortic renal vein. The bladder is decompressed by a Hernandez catheter. Extensive colonic diverticul osis. There is minimal pericolonic fat stranding at the distal descending colon best seen on image 29 3. This could represent an early acute diverticulitis or epiploic appendagitis. No evidence for bowel obstruction. IMPRESSION: 1. Minimal pericolonic fat stranding at the distal descending colon. This could represent an early ac thai diverticulitis or epiploic appendagitis. 2. Bilateral nephrolithiasis. No ureteral stones. No hydronephrosis. 3. Additional findings as described above. Therefore. This report was called/faxed to the emergency d epartment following dictation. ACT 112: Negative or not required by law. Electronically signed by: Ori Adhikari M.D. 06/06/2022 7:52 AM
[2022-06-06] MEDS ORDERED: PIPERACILLIN/TAZOBACTAM 3.375 GM in DEXTROSE 5% 100 ML IV ONE (08:45)
[2022-06-06] MEDS: DOXYCYCLINE HYCLATE 100 MG CAP PO SCH ×2 (09:13→21:00)
[2022-06-06] MEDS: PANTOprazole 40 MG TAB PO SCH (09:13)
[2022-06-06] MEDS: ASPIRIN 325 MG ECTAB PO SCH (09:14)
[2022-06-06] MEDS: CYANOCOBALAMIN (B-12) 500 MCG TABLET PO SCH ×2 (09:14→21:00)
[2022-06-06] MEDS: ENOXAPARIN INJ 40 MG/0.4 ML SYR SQ SCH (09:15)
[2022-06-06] MEDS: VITAMIN B COMPLEX TAB PO SCH (11:02)
[2022-06-06] MEDS: PREGABALIN 150 MG CAP PO SCH ×3 (11:02→20:33)
--- NOTE | 2022-06-06 14:48 | Hospitalist Progress Note ---
Date of Service June 06, 2022 Assessment & Plan (1) Sepsis: Plan: Severe sepsis SIRS plus hypoxemic respiratory failure Possible Sources: Complicated bronchitis/possible atypical pneumonia; Acute diverticulitis Recent COVID-19 vaccination --CXR:Cardiomegaly without overt pulmonary edema. Retrocardiac left basilar opacities favors atelectasis. --CT ABD:Minimal pericolonic fat stranding at the distal descending colon. This could represent an early acute diverticulitis or epiploic appendagitis. Bilateral nephrolithiasis. No ureteral stones. No hydronephrosis. --Procalcitonin: 0.68 --Lactate: 2.4>>0.8 --Blood Cultures:pending --Received IV fluids -- Empirically started on Zosyn, doxycycline General surgery consulted Advance diet as tolerated Chronic diastolic heart failure Hypoxia Atelectasis Resume home diuretics as able Monitor volume status Continue supplemental oxygen as needed Incentive Spirometry Hypertension Likely situational BP better Monitor H/O CVA Continue aspirin, Lipitor DM II Last HBA1C: 7.8 Hold home regimen Continue Insulin while hospitalized Monitor BGs CKD III Cr at baseline Monitor renal function Anxiety disorder Dementia as per records Past tobacco abuse GERD Continue home meds Minimize Ativan PRN as able DVT Px: Lovenox SQ Code Status Full code Disposition PT/OT prior to discharge Admission and Anticipated Discharge Date Admission Date: June 05, 2022 Subjective Patient is seen and examined at bedside Poor historian States having intermittent left lower quadrant abdominal discomfort Denies any chest pain, dyspnea, cough, dizziness, nausea Saturating well on 2 L supplemental oxygen Review of Systems Review of Systems: All systems reviewed & are unremarkable except as noted in Subjective Physical Exam Physical Exam: Physical Exam: Vitals signs as noted above General Appearance:Obese, no apparent distress Head: normocephalic, Atraumatic Eyes: normal inspection, EOMI Neck: supple, Trachea midline Respiratory/Chest: Decreased breath sounds, basal crackles, No accessory muscle use Cardiovascular: S1, S2, No murmur Abdomen/GI:Soft, Non tender, Bowel sounds present Extremities/Musculoskeletal:normal inspection, 1+ Pedal edema Neurologic/Psych:AAOX2, grossly no focal neurological deficits, mild hearing impairment Skin: normal color, warm Results & Data Results & Data ([facility] [place]) Vital Signs (Past 12 Hours) Vital Signs Pulse Pulse Resp BP BP Pulse Ox O2 Del Method 06/06/22 13:00 78 17 96 06/06/22 13:00 126/79 06/06/22 12:00 88 22 06/06/22 11:00 79 19 97 06/06/22 11:00 129/65 06/06/22 10:00 82 19 97 06/06/22 10:00 130/90 06/06/22 09:00 80 17 98 06/06/22 09:00 154/84 H 06/06/22 08:00 89 20 90 06/06/22 08:00 146/79 H 06/06/22 07:00 96 H 19 91 06/06/22 07:00 155/76 H 06/06/22 06:00 94 H 20 99 06/06/22 06:00 148/71 H 06/06/22 05:00 104 H 16 98 06/06/22 05:00 154/112 H 06/06/22 04:00 104 H 21 97 06/06/22 04:00 155/75 H 06/06/22 11:34 86 19 129/65 94 Nasal Cannula 06/06/22 05:54 96 H 19 98 Nasal Cannula 06/06/22 03:00 113 H 23 149/89 H 96 Nasal Cannula O2 Flow Rate 06/06/22 13:00 06/06/22 13:00 06/06/22 12:00 06/06/22 11:00 06/06/22 11:00 06/06/22 10:00 06/06/22 10:00 06/06/22 09:00 06/06/22 09:00 06/06/22 08:00 06/06/22 08:00 06/06/22 07:00 06/06/22 07:00 06/06/22 06:00 06/06/22 06:00 06/06/22 05:00 06/06/22 05:00 06/06/22 04:00 06/06/22 04:00 06/06/22 11:34 2 06/06/22 05:54 3 06/06/22 03:00 3 Laboratory Results Short CBC 06/05/22 06/06/22 Range/Units 20:03 04:39 WBC 5.24 4.17 L (4.8-10.8) K/ul Hgb 13.1 11.2 L (12.0-16.0) g/dl Hct 42.4 36.2 (34.1-44.9) % Plt Count 169 137 (130-400) K/uL BMP 06/05/22 06/06/22 20:03 04:39 Sodium 138 137 Potassium 4.2 4.0 Chloride 99 102 Carbon Dioxide 29 25 BUN 21 18 Creatinine 1.15 1.02 Glucose 160 H 158 H Calcium 10.2 H 9.1 Liver Function 06/05/22 Range/Units 20:03 Total Bilirubin 0.7 (0.2-1.0) mg/dl Direct Bilirubin 0.2 (0-0.2) mg/dl AST 52 H (13-39) U/L ALT 42 (7-52) U/L Alkaline Phosphatase 76 (34-104) U/L Albumin 4.4 (3.4-5.0) gm/dl Urine 06/05/22 Range/Units 21:00 Urine Color Yellow Urine Appearance Clear (Clear) Urine pH 6.5 (4.5-7.5) Ur Specific [place] 1.027 (1.000-1.030) Urine Protein 1+ H (Negative) Urine Glucose (UA) 3+ H (Negative)
[2022-06-06] MEDS ORDERED: LORazepam 0.5 MG TAB PO PRN (15:06)
--- NOTE | 2022-06-06 15:57 | Surgery Consultation ---
Date of Consultation June 06, 2022 Assessment & Plan (1) Epiploic appendagitis: Uncertain if this is a mild diverticulitis versus appendagitis. She is already on Zosyn for possible pneumonia. She is on clear liquid diet and can advance as tolerated. No further surgical follow-up should be necessary. Supervising Physician Co-Signing Physician Notes I personally saw and evaluated the patient with Danny Anders PA-C and agree w ith the assessment and plan. 81-year-old female with mild acute diverticulitis versus epiploic appendagitis CT images and results personally viewed by me, there is little to no inflammation of the colon on CT She has mild abdominal pain and has been tolerating a diet No plans for any surgical intervention She is stable for discharge from a surgical standpoint, will sign off at this time please call with any questions or concerns History of Present Illness Attending Physician: Segundo Hernadez MD History of Present Illness 81-year-old female presented to the emergency department with fever and weakness 1 day after COVID vaccination. She was admitted overnight for complicated bronchitis or atypical pneumonia. She is also been having intermittent left lower quadrant pain. She was started on Cipro and Flagyl and had a CT scan at [facility] 2 to 3 weeks ago. The antibiotics were stopped after 3-4 days when there did not appear to be diverticulitis. She does not have any abdominal pain today she did have some discomfort yesterday. No change in bowel habits. She had colonoscopy in the past. Allergies Allergy/AdvReac Type Severity Reaction Status Date / Time COVID-19 vacc, bv (Orig, AdvReac Intermediate Verified 06/05/22 23:32 Omicron BA.4/5) (Pfizer) [From Pfizer COVID Bival(12y up)()] oxycodone AdvReac Intermediate OVER Verified 11/05/21 14:00 SEDATED Home Medications Medication Instructions Recorded Confirmed Type omega-3 fatty acids 1,000 mg 2,000 mg PO QAM ##0 10/15/13 06/05/22 History capsule omeprazole 20 mg tablet,delayed 20 mg PO QAM ##0 10/15/13 06/05/22 History release coenzyme Q10 100 mg capsule 100 mg PO QAM ##0 01/04/16 06/05/22 History atorvastatin 40 mg tablet 40 mg PO HS ##0 04/09/17 06/05/22 History dicyclomine 10 mg capsule 10 mg PO QID PRN Abdominal Pain ##0 04/09/17 06/05/22 History peg 400-propylene glycol 0.4 %-0.3 1 drp ophthalmic (eye) QID PRN Dry 05/12/19 06/05/22 History % eye drops (Systane Ultra) Eye(S) vitamin B complex 1 tab PO QAM 09/21/20 06/05/22 History lorazepam 0.5 mg tablet 0.5 mg PO TID PRN Anxiety 05/24/21 06/05/22 History metformin 750 mg tablet,extended 750 mg PO BIDM 05/24/21 06/05/22 History release 24 hr pregabalin 150 mg capsule 150 mg PO TID 05/24/21 06/05/22 History repaglinide 0.5 mg tablet 0.5 mg PO TIDM 05/24/21 06/05/22 History valerian root 100 mg capsule 100 mg PO QAM 05/24/21 06/05/22 History sczzyvy-pcbzcgdsulepf-kynoeoxj 250 2 tab PO Q6H PRN Pain 09/24/21 06/05/22 H istory mg-250 mg-65 mg tablet (Excedrin Extra Strength) hydrochlorothiazide 25 mg tablet 25 mg PO QAM 09/24/21 06/05/22 History magnesium 250 mg tablet 250 mg PO QAM 09/24/21 06/05/22 History aspirin 325 mg tablet 325 mg PO DAILY 06/05/22 06/05/22 History cyanocobalamin (vitamin B-12) 500 500 mcg PO BID 06/05/22 06/05/22 History mcg tablet (Vitamin B-12) dulaglutide 1.5 mg/0.5 mL 1.5 mg subcut WK 06/05/22 06/05/22 History subcutaneous pen injector (Trulicity) empagliflozin 10 mg tablet 10 mg PO DAILY 06/05/22 06/05/22 History (Jardiance) Patient History Medical History Anxiety CAD (coronary artery disease) CKD (chronic kidney disease), stage III Dementia Diabetes mellitus, type II Diastolic dysfunction Dry eye syndrome Dyslipidemia GERD (gastroesophageal reflux disease) History of NV (myocardial infarction) Hypertension Kidney stones LVH (left ventricular hypertrophy) Obesity Osteoarthritis Peripheral neuropathy Surgical History History of appendectomy History of carpal tunnel release left History of cataract surgery RT/LEFT History of discectomy LUMBAR (TOTAL 2 LUMBAR DISCECTOMY) History of hysterectomy History of tooth extraction Hx of colonoscopy with polypectomy Hx of eye surgery LASER PROCEDURE S/P cystoscopy with ureteral stent placement 05/13/19 MAC Family History Brother Family history of diabetes mellitus Other Cancer Heart disease Kidney disease Social History Smoking Status: Never smoker Tobacco Type: Cigarettes Second Hand Exposure: No; Hx Alcohol Use: No Hx Substance Use: No Preferred Language: Uzbek Communication Ability: Effective Visual Impairment: No Limitations Hearing Ability: Normal 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 Required: No Beliefs That Will Affect Care: None marital status: Current Living Situation: Spouse current occupational status: retired Feels Safe at Home: Yes Safety Concerns: Feels Safe At This Time caffeine: Yes during the past year weight has: remained stable Physical Activity Frequency: Does not Exercise Seatbelt Use: always Do you think of yourself as: straight/heterosexual Gender Identity: Female Assistive Devices: Walker Review of Systems Constitutional: + fever and + weakness; no chills Gastrointestinal: + abdominal pain; no bloating, no nausea, no vomiting, no constipation, no diarrhea/loose stools and no blood in stools Physical Exam Constitutional: WD/WN, vitals as above Respiratory: normal respiratory effort Cardiovascular: RRR, no murmur, no edema Gastrointestinal (Abdomen): Inspection/Auscultation: abdomen not distended Percussion/Palpation: abdomen soft; abdomen nontender and no guarding Skin: no rashes, warm and dry Results & Data ([facility]) Vital Signs (Past 12 Hours) Vital Signs Pulse Pulse Resp BP BP Pulse Ox O2 Del Method 06/06/22 13:00 78 17 96 06/06/22 13:00 126/79 06/06/22 12:00 88 22 06/06/22 11:00 79 19 97 06/06/22 11:00 129/65 12/01/22 10:00 82 19 97 06/06/22 10:00 130/90 06/06/22 09:00 80 17 98 06/06/22 09:00 154/84 H 06/06/22 08:00 89 20 90 06/06/22 08:00 146/79 H 06/06/22 07:00 96 H 19 91 06/06/22 07:00 155/76 H 06/06/22 06:00 94 H 20 99 06/06/22 06:00 148/71 H 06/06/22 05:00 104 H 16 98 06/06/22 05:00 154/112 H 06/06/22 04:00 104 H 21 97 06/06/22 04:00 155/75 H 06/06/22 11:34 86 19 129/65 94 Nasal Cannula 06/06/22 05:54 96 H 19 98 Nasal Cannula O2 Flow Rate 06/06/22 13:00 06/06/22 13:00 06/06/22 12:00 06/06/22 11:00 06/06/22 11:00 06/06/22 10:00 06/06/22 10:00 06/06/22 09:00 06/06/22 09:00 06/06/22 08:00 06/06/22 08:00 06/06/22 07:00 06/06/22 07:00 06/06/22 06:00 06/06/22 06:00 06/06/22 05:00 06/06/22 05:00 06/06/22 04:00 06/06/22 04:00 06/06/22 11:34 2 06/06/22 05:54 3 PG Care Time/CCT Total # of Minutes Spent Total Time Spent with Patient: Total time spent is greater than 50% in coordination of care (as documented) at patient's floor/unit and/or counseling patient: Coding Level of Care Code 26208 Initial Inpt Care Lvl 1 Diagnoses Epiploic appendagitis K63.89
[2022-06-06] MEDS: PIPERACILLIN/TAZOBACTAM 3.375 GM in DEXTROSE 5% 100 ML IV SCH ×2 (16:03→21:00)
--- NOTE | 2022-06-06 19:06 | Electrocardiogram Report ---
Test Reason : Blood Pressure : / mmHG Vent. Rate : 129 BPM Atrial Rate : 129 BPM P-R Int : 202 ms QRS Dur : 080 ms QT Int : 288 ms P-R-T Axes : 006 -41 057 degrees QTc Int : 421 ms Sinus tachycardia Left axis deviation Poor R wave progression, consider anterior NV vs. lead placement vs. LVH Abnormal ECG When compared with ECG of 28-SEP-2021 00:56, Criteria for Inferior infarct are no longer Present Nonspecific T wave abnormality no longer evident in Inferior leads T wave inversion no longer evident in Anterior leads Confirmed by Palomo Partida ([id number] on 06/06/2022 7:05:45 PM Referred By: REFERRED SELF Confirmed By:Raul Partida
[2022-06-06] MEDS: ATORVASTATIN 40 MG TAB PO SCH (21:00)
[2022-06-07] MEDS: INSULIN ASPART PER UNIT SC SCH ×6 (00:42→21:49)
[2022-06-07] MEDS: PIPERACILLIN/TAZOBACTAM 3.375 GM in DEXTROSE 5% 100 ML IV SCH ×3 (05:50→23:13)
[2022-06-07 06:20] LABS: Hematocrit (blood only) 34.8 % (34.1-44.9); Hemoglobin 10.9 g/dl (12.0-16.0); Mean Corpuscular Hemoglobin 26.5 pg (25.0-34.0); Mean Corpuscular Hgb Conc 31.3 g/dL (32.0-36.0); Mean Corpuscular Volume 84.5 fL (80.0-100.0); Mean Platelet Volume 10.1 fL (9.4-12.3); Platelet Count 138 K/uL (130-400); RDW Coefficient of Variation 16.1 % (11.5-14.5); RDW Standard Deviation 49.3 fL (36.4-46.3); Red Blood Count 4.12 M/uL (3.93-5.22); White Blood Count 5.68 K/ul (4.8-10.8)
[2022-06-07 06:41] LABS: BUN Creatinine Ratio 21.2 (10-20); Calcium 9.5 mg/dl (8.5-10.1); Creatinine Clr Calc Pharmacy 50.8 ml/min; Est GFR (African American) 62.4 ml/min; Est GFR (Non-African American) 53.8 ml/min; Magnesium 1.9 mg/dl (1.7-2.4); Potassium 3.6 mmol/L (3.5-5.1)
[2022-06-07] MEDS: PREGABALIN 150 MG CAP PO SCH ×3 (09:51→21:50)
[2022-06-07] MEDS: ACETAMINOPHEN 325 MG TAB PO PRN ×2 (09:51→17:43)
[2022-06-07] MEDS: ASPIRIN 325 MG ECTAB PO SCH (09:52)
[2022-06-07] MEDS: DOXYCYCLINE HYCLATE 100 MG CAP PO SCH ×2 (09:52→21:50)
[2022-06-07] MEDS: PANTOprazole 40 MG TAB PO SCH (09:52)
[2022-06-07] MEDS: VITAMIN B COMPLEX TAB PO SCH (09:52)
[2022-06-07] MEDS: CYANOCOBALAMIN (B-12) 500 MCG TABLET PO SCH ×2 (09:52→21:51)
[2022-06-07] MEDS: ENOXAPARIN INJ 40 MG/0.4 ML SYR SQ SCH (09:53)
[2022-06-07] MEDS: FAMOTIDINE 10 MG TABLET PO SCH ×2 (12:44→21:50)
--- NOTE | 2022-06-07 17:47 | Hospitalist Progress Note ---
Date of Service June 07, 2022 Assessment & Plan (1) Sepsis: Plan: Severe sepsis SIRS plus hypoxemic respiratory failure Possible Sources: Complicated bronchitis/possible atypical pneumonia; Acute diverticulitis Recent COVID-19 vaccination --CXR:Cardiomegaly without overt pulmonary edema. Retrocardiac left basilar opacities favors atelectasis. --CT ABD:Minimal pericolonic fat stranding at the distal descending colon. This could represent an early acute diverticulitis or epiploic appendagitis. Bilateral nephrolithiasis. No ureteral stones. No hydronephrosis. --Procalcitonin: 0.68 --Lactate: 2.4>>0.8 --Blood Cultures: No growth to date --Received IV fluids -- Continue Zosyn, doxycycline Appreciate surgery input Tolerating diet Chronic diastolic heart failure Hypoxia Atelectasis Resume home diuretics as able Monitor volume status Continue supplemental oxygen as needed Incentive Spirometry Wean off of supplemental oxygen as able Hypertension Likely situational Monitor H/O CVA Continue aspirin, Lipitor DM II Last HBA1C: 7.8 Hold home regimen Continue Insulin while hospitalized Monitor BGs CKD III Cr at baseline Monitor renal function Anxiety disorder Dementia as per records Past tobacco abuse GERD Continue home meds Minimize Ativan PRN as able DVT Px: Lovenox SQ Code Status Full code Disposition PT/OT prior to discharge Admission and Anticipated Discharge Date Admission Date: June 05, 2022 Subjective Patient is seen and examined at bedside Poor historian States having heartburn-like symptoms Sitting in chair comfortably Denies any abdominal pain today Also denies any chest pain, dyspnea, cough, dizziness, nausea Saturating well on 2 L supplemental oxygen Review of Systems Review of Systems: All systems reviewed & are unremarkable except as noted in Subjective Physical Exam Physical Exam: Physical Exam: Vitals signs as noted above General Appearance:Obese, no apparent distress Head: normocephalic, Atraumatic Eyes: normal inspection, EOMI Neck: supple, Trachea midline Respiratory/Chest: Decreased breath sounds, basal crackles, No accessory muscle use Cardiovascular: S1, S2, No murmur Abdomen/GI:Soft, Non tender, Bowel sounds present Extremities/Musculoskeletal:normal inspection, 1+ Pedal edema Neurologic/Psych:AAOX2, grossly no focal neurological deficits, mild hearing impairment Skin: normal color, warm Results & Data Results & Data ([facility]) Vital Signs (Past 12 Hours) Vital Signs Temp Pulse Pulse Resp BP Pulse Ox O2 Del Method 06/07/22 08:00 72 06/07/22 08:00 Oxymask 06/07/22 12:05 36.4 C L 76 20 169/91 H 99 Nasal Cannula 06/07/22 07:54 36.5 C 79 20 118/74 97 Nasal Cannula O2 Flow Rate 06/07/22 08:00 06/07/22 08:00 2 06/07/22 12:05 06/07/22 07:54 2 Laboratory Results Short CBC 06/07/22 Range/Units 05:50 WBC 5.68 (4.8-10.8) K/ul Hgb 10.9 L (12.0-16.0) g/dl Hct 34.8 (34.1-44.9) % Plt Count 138 (130-400) K/uL BMP 06/07/22 05:50 Sodium 137 Potassium 3.6 Chloride 101 Carbon Dioxide 30 BUN 21 Creatinine 0.99 Glucose 105 H Calcium 9.5
[2022-06-07] MEDS: LANTUS PER UNIT CHARGE SQ SCH (21:49)
[2022-06-07] MEDS: ATORVASTATIN 40 MG TAB PO SCH (21:51)
[2022-06-08] MEDS ORDERED: POLYETHYLENE (MIRALAX) 17 GM PACK PO PRN (04:18)
[2022-06-08] MEDS ORDERED: POLYETHYLENE (MIRALAX) 17 GM PACK PO STA (04:18)
[2022-06-08] MEDS ORDERED: DOCUSATE SODIUM/SENNA 50/8.6MG TAB PO STA (04:28)
[2022-06-08] MEDS: PIPERACILLIN/TAZOBACTAM 3.375 GM in DEXTROSE 5% 100 ML IV SCH ×3 (06:35→21:37)
[2022-06-08 07:02] LABS: Hematocrit (blood only) 36.8 % (34.1-44.9); Hemoglobin 11.5 g/dl (12.0-16.0); Mean Corpuscular Hemoglobin 26.3 pg (25.0-34.0); Mean Corpuscular Hgb Conc 31.3 g/dL (32.0-36.0); Mean Corpuscular Volume 84.2 fL (80.0-100.0); Mean Platelet Volume 10.3 fL (9.4-12.3); Platelet Count 141 K/uL (130-400); RDW Standard Deviation 49.4 fL (36.4-46.3); Red Blood Count 4.37 M/uL (3.93-5.22); White Blood Count 5.08 K/ul (4.8-10.8)
[2022-06-08 07:41] LABS: BUN Creatinine Ratio 26.5 (10-20); Calcium 9.9 mg/dl (8.5-10.1); Creatinine Clr Calc Pharmacy 49.8 ml/min; Est GFR (African American) 60.2 ml/min; Est GFR (Non-African American) 51.9 ml/min; Potassium 3.9 mmol/L (3.5-5.1)
[2022-06-08] MEDS: ENOXAPARIN INJ 40 MG/0.4 ML SYR SQ SCH (08:38)
[2022-06-08] MEDS: DOXYCYCLINE HYCLATE 100 MG CAP PO SCH ×2 (08:38→21:35)
[2022-06-08] MEDS: CYANOCOBALAMIN (B-12) 500 MCG TABLET PO SCH ×2 (08:38→21:35)
[2022-06-08] MEDS: ASPIRIN 325 MG ECTAB PO SCH (08:39)
[2022-06-08] MEDS: VITAMIN B COMPLEX TAB PO SCH (08:39)
[2022-06-08] MEDS: FAMOTIDINE 10 MG TABLET PO SCH ×2 (08:39→21:35)
[2022-06-08] MEDS: PANTOprazole 40 MG TAB PO SCH (08:39)
[2022-06-08] MEDS: INSULIN ASPART PER UNIT SC SCH ×4 (08:44→21:36)
[2022-06-08] MEDS: PREGABALIN 150 MG CAP PO SCH ×3 (08:44→21:36)
[2022-06-08] MEDS ORDERED: DOCUSATE SODIUM/SENNA 50/8.6MG TAB PO SCH (09:00)
--- NOTE | 2022-06-08 16:26 | Hospitalist Progress Note ---
Date of Service June 08, 2022 Assessment & Plan (1) Sepsis: Plan: Severe sepsis SIRS plus hypoxemic respiratory failure Possible Sources: Complicated bronchitis/possible atypical pneumonia; Acute diverticulitis Recent COVID-19 vaccination --CXR:Cardiomegaly without overt pulmonary edema. Retrocardiac left basilar opacities favors atelectasis. --CT ABD:Minimal pericolonic fat stranding at the distal descending colon. This could represent an early acute diverticulitis or epiploic appendagitis. Bilateral nephrolithiasis. No ureteral stones. No hydronephrosis. --Procalcitonin: 0.68 --Lactate: 2.4>>0.8 --Blood Cultures: No growth to date --Received IV fluids -- Continue Zosyn, doxycycline Appreciate surgery input Tolerating diet Clinically improving Chronic diastolic heart failure Hypoxia Atelectasis Monitor volume status Incentive Spirometry Weaned off of supplemental oxygen Resume home diuretics tomorrow Hypertension BP slightly elevated Monitor H/O CVA Continue aspirin, Lipitor DM II Last HBA1C: 7.8 Hold home regimen Continue Insulin while hospitalized Monitor BGs CKD III Cr at baseline Monitor renal function Anxiety disorder Dementia as per records Past tobacco abuse GERD Continue home meds Minimize Ativan PRN as able DVT Px: Lovenox SQ Code Status Full code Disposition PT/OT: May need Rehab Admission and Anticipated Discharge Date Admission Date: June 05, 2022 Subjective Patient is seen and examined at bedside Poor historian States feeling tired today Heartburn resolved Denies any chest pain, dyspnea, dizziness, nausea, abdominal pain Saturating well on room air Review of Systems Review of Systems: All systems reviewed & are unremarkable except as noted in Subjective Physical Exam Physical Exam: Physical Exam: Vitals signs as noted above General Appearance:Obese, no apparent distress Head: normocephalic, Atraumatic Eyes: normal inspection, EOMI Neck: supple, Trachea midline Respiratory/Chest: Decreased breath sounds, basal crackles, No accessory muscle use Cardiovascular: S1, S2, No murmur Abdomen/GI:Soft, Non tender, Bowel sounds present Extremities/Musculoskeletal:normal inspection, 1+ Pedal edema Neurologic/Psych:AAOX2, grossly no focal neurological deficits, mild hearing impairment Skin: normal color, warm Results & Data Results & Data ([facility]) Vital Signs (Past 12 Hours) Vital Signs Temp Pulse Pulse Resp BP BP Pulse Ox 06/08/22 15:58 36.6 C 99 H 20 141/78 H 98 06/08/22 12:45 36.6 C 93 H 19 143/74 H 95 06/08/22 08:09 36.9 C 99 H 20 145/89 H 96 06/08/22 07:30 104 H O2 Del Method 06/08/22 15:58 Room Air 06/08/22 12:45 Room Air 06/08/22 08:09 Room Air 06/08/22 07:30 Laboratory Results Short CBC 06/08/22 Range/Units 06:37 WBC 5.08 (4.8-10.8) K/ul Hgb 11.5 L (12.0-16.0) g/dl Hct 36.8 (34.1-44.9) % Plt Count 141 (130-400) K/uL BMP 06/08/22 06:37 Sodium 137 Potassium 3.9 Chloride 101 Carbon Dioxide 28 BUN 27 H Creatinine 1.02 Glucose 117 H Calcium 9.9
[2022-06-08] MEDS: ATORVASTATIN 40 MG TAB PO SCH (21:35)
[2022-06-08] MEDS: LANTUS PER UNIT CHARGE SQ SCH (21:36)
[2022-06-09] MEDS: PIPERACILLIN/TAZOBACTAM 3.375 GM in DEXTROSE 5% 100 ML IV SCH ×3 (05:17→22:56)
[2022-06-09 06:53] LABS: Est GFR (African American) 60.9 ml/min; Est GFR (Non-African American) 52.5 ml/min
[2022-06-09] MEDS: ENOXAPARIN INJ 40 MG/0.4 ML SYR SQ SCH (08:33)
[2022-06-09] MEDS: CYANOCOBALAMIN (B-12) 500 MCG TABLET PO SCH ×2 (08:34→19:59)
[2022-06-09] MEDS: DOXYCYCLINE HYCLATE 100 MG CAP PO SCH ×2 (08:34→19:58)
[2022-06-09] MEDS: FAMOTIDINE 10 MG TABLET PO SCH ×2 (08:34→19:59)
[2022-06-09] MEDS: ASPIRIN 325 MG ECTAB PO SCH (08:35)
[2022-06-09] MEDS: PANTOprazole 40 MG TAB PO SCH (08:35)
[2022-06-09] MEDS: VITAMIN B COMPLEX TAB PO SCH (08:35)
[2022-06-09] MEDS: hydroCHLOROthiazide 25 MG TAB PO SCH (08:35)
[2022-06-09] MEDS: DOCUSATE SODIUM/SENNA 50/8.6MG TAB PO SCH (08:36)
[2022-06-09] MEDS: PREGABALIN 150 MG CAP PO SCH ×3 (08:37→19:58)
[2022-06-09] MEDS: INSULIN ASPART PER UNIT SC SCH ×4 (08:42→22:55)
--- NOTE | 2022-06-09 14:07 | Hospitalist Progress Note ---
Date of Service June 09, 2022 Assessment & Plan (1) Sepsis: Plan: Severe sepsis SIRS plus hypoxemic respiratory failure Possible Sources: Complicated bronchitis/possible atypical pneumonia; Acute diverticulitis Recent COVID-19 vaccination --CXR:Cardiomegaly without overt pulmonary edema. Retrocardiac left basilar opacities favors atelectasis. --CT ABD:Minimal pericolonic fat stranding at the distal descending colon. This could represent an early acute diverticulitis or epiploic appendagitis. Bilateral nephrolithiasis. No ureteral stones. No hydronephrosis. --Procalcitonin: 0.68 --Lactate: 2.4>>0.8 --Blood Cultures: No growth to date --Received IV fluids -- Continue Zosyn, doxycycline Appreciate surgery input Tolerating diet Continue current management Chronic diastolic heart failure Hypoxia Atelectasis Monitor volume status Incentive Spirometry Weaned off of supplemental oxygen Resume home diuretic Hypertension Stable Monitor H/O CVA Continue aspirin, Lipitor DM II Last HBA1C: 7.8 Hold home regimen Continue Insulin while hospitalized Monitor BGs CKD III Cr at baseline Monitor renal function Anxiety disorder Dementia as per records Past tobacco abuse GERD Continue home meds Minimize Ativan PRN as able DVT Px: Lovenox SQ Code Status Full code Disposition PT/OT: May need Rehab Admission and Anticipated Discharge Date Admission Date: June 05, 2022 Subjective Patient is seen and examined at bedside Offers no complaints Denies any chest pain, dyspnea, dizziness, nausea, abdominal pain Eager to get discharged Review of Systems Review of Systems: All systems reviewed & are unremarkable except as noted in Subjective Physical Exam Physical Exam: Physical Exam: Vitals signs as noted above General Appearance:Obese, no apparent distress Head: normocephalic, Atraumatic Eyes: normal inspection, EOMI Neck: supple, Trachea midline Respiratory/Chest: Decreased breath sounds, basal crackles, No accessory muscle use Cardiovascular: S1, S2, No murmur Abdomen/GI:Soft, Non tender, Bowel sounds present Extremities/Musculoskeletal:normal inspection, 1+ Pedal edema Neurologic/Psych:AAOX2, grossly no focal neurological deficits, mild hearing impairment Skin: normal color, warm Results & Data Results & Data ([facility]) Vital Signs (Past 12 Hours) Vital Signs Temp Pulse Pulse Resp BP Pulse Ox O2 Del Method 06/09/22 11:00 36.6 C 99 H 20 116/68 98 Room Air 06/09/22 09:01 Room Air 06/09/22 07:30 36.4 C L 92 H 20 133/80 96 Room Air 06/09/22 07:22 95 H 06/09/22 03:00 36.3 C L 94 H 20 131/77 94 Room Air Laboratory Results [facility] 06/09/22 05:36 Creatinine 1.01
[2022-06-09] MEDS: ATORVASTATIN 40 MG TAB PO SCH (19:58)
[2022-06-09] MEDS: LANTUS PER UNIT CHARGE SQ SCH (22:54)
[2022-06-10] MEDS: ACETAMINOPHEN 325 MG TAB PO PRN ×2 (03:36→08:44)
[2022-06-10] MEDS: PIPERACILLIN/TAZOBACTAM 3.375 GM in DEXTROSE 5% 100 ML IV SCH (06:07)
[2022-06-10 06:35] LABS: Hematocrit (blood only) 35.8 % (34.1-44.9); Hemoglobin 11.4 g/dl (12.0-16.0); Mean Corpuscular Hemoglobin 26.4 pg (25.0-34.0); Mean Corpuscular Hgb Conc 31.8 g/dL (32.0-36.0); Mean Corpuscular Volume 82.9 fL (80.0-100.0); Mean Platelet Volume 10.9 fL (9.4-12.3); Platelet Count 168 K/uL (130-400); RDW Coefficient of Variation 16.2 % (11.5-14.5); Red Blood Count 4.32 M/uL (3.93-5.22); White Blood Count 6.16 K/ul (4.8-10.8)
[2022-06-10 07:09] LABS: BUN Creatinine Ratio 29.7 (10-20); Calcium 9.8 mg/dl (8.5-10.1); Creatinine Clr Calc Pharmacy 46.8 ml/min; Est GFR (African American) 60.9 ml/min; Est GFR (Non-African American) 52.5 ml/min; Potassium 3.6 mmol/L (3.5-5.1)
[2022-06-10] MEDS: INSULIN ASPART PER UNIT SC SCH ×2 (08:40→12:45)
[2022-06-10] MEDS: FAMOTIDINE 10 MG TABLET PO SCH (08:41)
[2022-06-10] MEDS: PREGABALIN 150 MG CAP PO SCH (08:41)
[2022-06-10] MEDS: CYANOCOBALAMIN (B-12) 500 MCG TABLET PO SCH (08:41)
[2022-06-10] MEDS: PANTOprazole 40 MG TAB PO SCH (08:41)
[2022-06-10] MEDS: DOXYCYCLINE HYCLATE 100 MG CAP PO SCH (08:41)
[2022-06-10] MEDS: DOCUSATE SODIUM/SENNA 50/8.6MG TAB PO SCH (08:42)
[2022-06-10] MEDS: hydroCHLOROthiazide 25 MG TAB PO SCH (08:42)
[2022-06-10] MEDS: ASPIRIN 325 MG ECTAB PO SCH (08:42)
[2022-06-10] MEDS: VITAMIN B COMPLEX TAB PO SCH (08:42)
[2022-06-10] MEDS: ENOXAPARIN INJ 40 MG/0.4 ML SYR SQ SCH (08:43)
--- NOTE | 2022-06-10 12:34 | Hospitalist Progress Note ---
Date of Service June 10, 2022 Assessment & Plan (1) Sepsis: Plan: Severe sepsis SIRS plus hypoxemic respiratory failure Possible Sources: Complicated bronchitis/possible atypical pneumonia; Acute diverticulitis Recent COVID-19 vaccination --CXR:Cardiomegaly without overt pulmonary edema. Retrocardiac left basilar opacities favors atelectasis. --CT ABD:Minimal pericolonic fat stranding at the distal descending colon. This could represent an early acute diverticulitis or epiploic appendagitis. Bilateral nephrolithiasis. No ureteral stones. No hydronephrosis. --Procalcitonin: 0.68 --Lactate: 2.4>>0.8 --Blood Cultures: No growth to date --Received IV fluids -- Continue Zosyn, doxycycline Appreciate surgery input Tolerating diet Transition to p.o. antibiotics to complete the course Plan to discharge to rehab facility today Chronic diastolic heart failure Hypoxia Atelectasis Monitor volume status Incentive Spirometry Weaned off of supplemental oxygen Resume home diuretic Hypertension Stable Monitor H/O CVA Continue aspirin, Lipitor DM II Last HBA1C: 7.8 Hold home regimen Continue Insulin while hospitalized Monitor BGs CKD III Cr at baseline Monitor renal function Anxiety disorder Dementia as per records Past tobacco abuse GERD Continue home meds Minimize Ativan PRN as able DVT Px: Lovenox SQ Code Status Full code Disposition Rehab Admission and Anticipated Discharge Date Admission Date: June 05, 2022 Subjective Patient is seen and examined at bedside Doing well today No new complaints Denies any chest pain, dyspnea, dizziness, nausea, abdominal pain Plan to discharge to Rehab facility today Review of Systems Review of Systems: All systems reviewed & are unremarkable except as noted in Subjective Physical Exam Physical Exam: Physical Exam: Vitals signs as noted above General Appearance:Obese, no apparent distress Head: normocephalic, Atraumatic Eyes: normal inspection, EOMI Neck: supple, Trachea midline Respiratory/Chest: Decreased breath sounds, CTA, No accessory muscle use Cardiovascular: S1, S2, No murmur Abdomen/GI:Soft, Non tender, Bowel sounds present Extremities/Musculoskeletal:normal inspection, 1+ Pedal edema Neurologic/Psych:AAOX2, grossly no focal neurological deficits, mild hearing impairment Skin: normal color, warm Results & Data Results & Data ([facility]) Vital Signs (Past 12 Hours) Vital Signs Temp Pulse Pulse Pulse Resp BP BP 06/10/22 11:48 36.5 C 76 85 20 121/77 119/72 06/10/22 10:03 06/10/22 07:33 36.5 C 85 20 121/77 06/10/22 07:21 81 06/10/22 02:38 36.3 C L 95 H 18 121/72 Pulse Ox O2 Del Method 06/10/22 11:48 96 06/10/22 10:03 Room Air 06/10/22 07:33 96 Room Air 06/10/22 07:21 06/10/22 02:38 95 Room Air Laboratory Results Short CBC 06/10/22 Range/Units 06:11 WBC 6.16 (4.8-10.8) K/ul Hgb 11.4 L (12.0-16.0) g/dl Hct 35.8 (34.1-44.9) % Plt Count 168 (130-400) K/uL BMP 06/10/22 06:11 Sodium 136 Potassium 3.6 Chloride 100 Carbon Dioxide 31 BUN 30 H Creatinine 1.01 Glucose 157 H Calcium 9.8
--- NOTE | 2022-06-10 12:46 | Discharge Summary ---
Date of Service June 10, 2022 Admission HPI Per Admitting Provider History obtained from patient, family, and records. Patient is a fair historian. Medical history significant for chronic diastolic heart failure (EF 50 to 55%, TTE 2020), hypertension, hyperlipidemia, history CVA, DM2 on oral medications, CRI (baseline creatinine 1.3 ), anxiety disorder, dementia as per records, past tobacco abuse. Last confinement 2021 for right groin cellulitis/abscess status post drainage. Patient received COVID-19 vaccination yesterday outpatient. This morning, patient noted to be febrile, weak by . Junky cough symptoms without chest pain or shortness of breath. Denies aspiration. Patient with achy lower abdominal pain complaints without diarrhea/constipation. Patient always gets sick after COVID vaccination as per . Patient brought to the ER for evaluation. Cefepime administered for sepsis. O2 sats noted to be 80s on air at 1 point during ER stay. 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, lives with Admission Exam Per Admitting Provider Physical Exam Physical Exam: GENERAL: uncomfortable, slightly hard of hearing, obese, minimal respiratory distress SKIN: Normal color, warm HEENT: [place] palpebral conjunctivae, no ptosis, dry buccal mucosa, nasal cannula in place NECK : Supple, short neck, no tenderness CHEST : Decreased breath sounds, occasional expiratory wheezes, no tenderness HEART : Tachycardic, no obvious murmurs ABDOMEN: Marked abdominal distention, nontender EXTREMITIES : Minimal LE swelling, no tenderness, no other conspicuous deformities noted NEUROLOGIC : Coherent, slightly hard of hearing, no facial asymmetry, gait and stance not assessed Principal Diagnosis Severe sepsis Complicated bronchitis/possible atypical pneumonia Acute diverticulitis Hypoxia--Resolved Chronic diastolic CHF Discharge Data Allergies Allergy/AdvReac Type Severity Reaction Status Date / Time COVID-19 vacc, bv (Orig, AdvReac Intermediate Verified 06/05/22 23:32 Omicron BA.4/5) (Pfizer) [From Pfizer COVID Bival(12y up)(PF)] oxycodone AdvReac Intermediate OVER Verified 11/05/21 14:00 SEDATED Consultations 06/05/22 20:43 ED Decision to Admit Stat 06/06/22 08:10 Consult General Surgery Routine Procedures Performed Laboratory Results WBC 6.16 K/ul (4.8-10.8) 06/10/22 06:11 RBC 4.32 M/uL (3.93-5.22) 06/10/22 06:11 Hgb 11.4 g/dl (12.0-16.0) L 06/10/22 06:11 Hct 35.8 % (34.1-44.9) 06/10/22 06:11 MCV 82.9 fL (80.0-100.0) 06/10/22 06:11 MCH 26.4 pg (25.0-34.0) 06/10/22 06:11 MCHC 31.8 g/dL (32.0-36.0) L 06/10/22 06:11 RDW Std Deviation 49.0 fL (36.4-46.3) H 06/10/22 06:11 RDW Coeff of Pia 16.2 % (11.5-14.5) H 06/10/22 06:11 Plt Count 168 K/uL (130-400) 06/10/22 06:11 MPV 10.9 fL (9.4-12.3) 06/10/22 06:11 Immature Gran % (Auto) 0.5 % 06/06/22 04:39 Neut % (Auto) 68.3 % 06/06/22 04:39 Lymph % (Auto) 14.4 % 06/06/22 04:39 [place] % (Auto) 13.2 % 06/06/22 04:39 Eos % (Auto) 3.1 % 06/06/22 04:39 Baso % (Auto) 0.5 % 06/06/22 04:39 Neut # (Auto) 2.85 K/uL (1.4-6.5) 06/06/22 04:39 Lymph # (Auto) 0.60 K/uL (1.2-3.4) L 06/06/22 04:39 [place] # (Auto) 0.55 K/uL (0.24-0.82) 06/06/22 04:39 Eos # (Auto) 0.13 K/uL (0-0.50) 06/06/22 04:39 Baso # (Auto) 0.02 K/uL (0-0.2) 06/06/22 04:39 Immature Gran # (Auto) 0.02 K/uL (0.00-0.02) 06/06/22 04:39 PT 11.0 Seconds (9.0-12.0) 06/05/22 20:03 INR 1.0 (0.9-1.1) 06/05/22 20:03 ABG pH 7.47 (7.35-7.45) H 06/05/22 22:25 ABG pCO2 41 mmHg (35-46) 06/05/22 22:25 ABG pO2 153 mmHg (80-95) H 06/05/22 22:25 ABG HCO3 30 mmol/L (19-24) H 06/05/22 22:25 ABG O2 Saturation > 100.0 % (90-95) H 06/05/22 22:25 ABG Base Excess 5.6 mEq/L (-9-1.8) H 06/05/22 22:25 Talon Test Pos (Pos) 06/05/22 22:25 Oxygen Given 2 06/05/22 22:25 Sodium 136 mmol/L (136-145) 06/10/22 06:11 Potassium 3.6 mmol/L (3.5-5.1) 06/10/22 06:11 Chloride 100 mmol/L (98-107) 06/10/22 06:11 Carbon Dioxide 31 mmol/L (21-32) 06/10/22 06:11 Anion Gap 5 (3-11) 06/10/22 06:11 BUN 30 mg/dl (6-23) H 06/10/22 06:11 Creatinine 1.01 mg/dl (0.6-1.2) 06/10/22 06:11 Est Cr Clr Drug Dosing 46.8 ml/min 06/10/22 06:11 Est GFR ( Amer) 60.9 ml/min 06/10/22 06:11 Est GFR (Non-Af Amer) 52.5 ml/min 06/10/22 06:11 BUN/Creatinine Ratio 29.7 (10-20) H 06/10/22 06:11 Glucose 157 mg/dl (70-99(Fasting)) H 06/10/22 06:11 POC Glucose 126 mg/dl (70-99) H 06/10/22 11:28 Lactate 0.8 mmol/L (0.4-2.0) 06/05/22 22:25 Calcium 9.8 mg/dl (8.5-10.1) 06/10/22 06:11 Magnesium 1.9 mg/dl (1.7-2.4) 06/07/22 05:50 Total Bilirubin 0.7 mg/dl (0.2-1.0) 06/05/22 20:03 Direct Bilirubin 0.2 mg/dl (0-0.2) 06/05/22 20:03 AST 52 U/L (13-39) H 06/05/22 20:03 ALT 42 U/L (7-52) 06/05/22 20:03 Alkaline Phosphatase 76 U/L (34-104) 06/05/22 20:03 Troponin I High Sens 14.0 pg/ml (0-14) 06/05/22 20:03 Total Protein 8.2 gm/dl (6.0-8.3) 06/05/22 20:03 Albumin 4.4 gm/dl (3.4-5.0) 06/05/22 20:03 Lipase 17 U/L (11-82) 06/05/22 22:53 Procalcitonin 0.68 ng/ml (0-0.5) H 06/05/22 20:03 TSH 0.197 uIu/ml (0.300-4.500) L 06/05/22 20:03 Free T4 1.17 ng/dl (0.61-1.60) 06/05/22 20:03 Urine Color Yellow 06/05/22 21:00 Urine Appearance Clear (Clear) 06/05/22 21:00 Urine pH 6.5 (4.5-7.5) 06/05/22 21:00 Ur Specific [place] 1.027 (1.000-1.030) 06/05/22 21:00 Urine Protein 1+ (Negative) H 06/05/22 21:00 Urine Glucose (UA) 3+ (Negative) H 06/05/22 21:00 Urine Ketones Trace (Negative) H 06/05/22 21:00 Urine Blood Negative (Negative) 06/05/22 21:00 Urine Nitrite Negative (Negative) 06/05/22 21:00 Urine Bilirubin Negative (Negative) 06/05/22 21:00 Urine Urobilinogen Negative (Negative) 06/05/22 21:00 Ur Leukocyte Esterase Negative (Negative) 06/05/22 21:00 Urine WBC (Auto) 10-30 /hpf (0-5) H 06/05/22 21:00 Urine RBC (Auto) 0-4 /hpf (0-4) 06/05/22 21:00 U Hyaline Cast (Auto) 0 /lpf (0-5) 06/05/22 21:00 U Epithel Cells (Auto) 0-5 /lpf (0-5) 06/05/22 21:00 Urine Bacteria (Auto) Negative (Negative) 06/05/22 21:00 Urine Yeast Budding (None Prsent) A 06/05/22 21:00 SARS-CoV-2 (PCR) NEGATIVE (Negative) 06/05/22 22:00 Influenza Type A (PCR) Negative (Neg) 06/05/22 22:00 Influenza Type B (PCR) Negative (Neg) 06/05/22 22:00 RSV (RT-PCR) Negative (Neg) 06/05/22 22:00 Impressions Chest X-Ray 06/05/22 19:28 XR chest 1V portable HISTORY: 81 years-old Female Sepsis acute sepsis COMPARISON: 09/28/2019 chest radiograph, CTA chest 06/09/2021 TECHNIQUE: Semierect AP view of the chest FINDINGS: Cardiac silhouette is enlarged. Atherosclerosis of the aorta. Rightward deviation of the trachea is again noted secondary to thyroid goiter. No pneumothorax, pleural effusion, or overt pulmonary edema. Mild right hemidiaphragmatic elevation. Mild retrocardiac left basilar densities. Bones appear grossly intact. IMPRESSION: 1. Cardiomegaly without overt pulmonary edema. 2. Retrocardiac left basilar opacities favors atelectasis. ACT 112: Negative or not required by law. The above report was generated using voice recognition software. It may contain grammatical, syntax or spelling errors. Electronically signed by: Gabe Berg M.D. 06/05/2022 8:19 PM Abdomen/Pelvis CT 06/05/22 22:[address] WITH IV CONTRAST CT DOSE: 1034.40 mGy.cm HISTORY: Generalized abdominal pain. TECHNIQUE: Multiaxial CT images of the abdomen and pelvis were performed following the use of intravenous contrast. A dose lowering technique was utilized adhering to the principles of ALARA. COMPARISON STUDY: Abdomen and pelvis CT 09/24/2021. FINDINGS: There is an old mild to moderate superior endplate compression deformity at L1. Mild dependent changes and mild interstitial thickening at the lung bases. No pneumoperitoneum. No pneumatosis. Hepatic steatosis. The gallbladder, spleen, adrenal glands, and pancreas are unremarkable. There are few punctate bilateral renal calculi. A few small subcentimeter hypodense renal lesions remain stable. These are technically too small to characterize but favor cysts. No ureteral stones. No hydronephrosis. The main portal vein is patent. No retroperitoneal lymphadenopathy. The abdominal aorta measures up to 3 cm in diameter at the level of the renal arteries. This remains unchanged. There is a left circumaortic renal vein. The bladder is decompressed by a Hernandez catheter. Extensive colonic diverticulosis. There is minimal pericolonic fat stranding at the distal descending colon best seen on image 293. This could represent an early acute diverticulitis or epiploic appendagitis. No evidence for bowel obstruction. IMPRESSION: 1. Minimal pericolonic fat stranding at the distal descending colon. This could represent an early acute diverticulitis or epiploic appendagitis. 2. Bilateral nephrolithiasis. No ureteral stones. No hydronephrosis. 3. Additional findings as described above. Therefore. This report was called/faxed to the emergency department following dictation. ACT 112: Negative or not required by law. Electronically signed by: Ori Adhikari M.D. 06/06/2022 7:52 AM Ordered Studies 06/05/22 22:53 CT Abd and Pelvis [CT abd pelvis IV con only] Stat Hospital Course (1) Sepsis: Severe sepsis SIRS plus hypoxemic respiratory failure Possible Sources: Complicated bronchitis/possible atypical pneumonia; Acute diverticulitis Recent COVID-19 vaccination --CXR:Cardiomegaly without overt pulmonary edema. Retrocardiac left basilar opacities favors atelectasis. --CT ABD:Minimal pericolonic fat stranding at the distal descending colon. This could represent an early acute diverticulitis or epiploic appendagitis. Bilateral nephrolithiasis. No ureteral stones. No hydronephrosis. --Procalcitonin: 0.68 --Lactate: 2.4>>0.8 --Blood Cultures: No growth to date --Received IV fluids -- Continue Zosyn, doxycycline Appreciate surgery input Tolerating diet Transition to p.o. antibiotics to complete the course Plan to discharge to rehab facility today Chronic diastolic heart failure Hypoxia Atelectasis Monitor volume status Incentive Spirometry Weaned off of supplemental oxygen Resume home diuretic Hypertension Stable Monitor H/O CVA Continue aspirin, Lipitor DM II Last HBA1C: 7.8 Hold home regimen Continue Insulin while hospitalized Monitor BGs CKD III Cr at baseline Monitor renal function Anxiety disorder Dementia as per records Past tobacco abuse GERD Continue home meds Minimize Ativan PRN as able DVT Px: Lovenox SQ Code Status Full code Disposition Rehab Total Time Total Time Spent Total Time Spent (In Minutes): 53 minutes Discharge Plan Discharge Items Patient Disposition: Transfer Inpatient Rehab Fac Reason For Visit: SEPSIS Discharge Diagnosis: Severe sepsis Complicated bronchitis/possible atypical pneumonia Acute diverticulitis Hypoxia--Resolved Chronic diastolic CHF Activity: Per Instructions section Exercise/Sports: Gradually increase as tolerated Non-emergency contact: Primary Care Provider Call non-emergency contact if: you have any medication questions, your symptoms worsen, your pain is concerning for you and you have a fever Follow-up/Referrals: [facility] MD [Primary Care Provider] - Diet: Carb Consistent or DM2 and Heart Healthy Addtl Attending Provider Instructions: Follow-up with your primary care physician in 1 week upon di scharge from rehab facility Follow-up with your surgeon as needed --- Complete antibiotic course Augmentin(6 more days), doxycycline (3 more days) for pneumonia, diverticulitis as prescribed Seek immediate medical attention if your symptoms reoccur or worsen Please take all medications as instructed on discharge list below. Please call if you have any questions or problems. You can reach a [facility] hospitalist on duty at [facility] 24 hours a day by calling [phone] Pending Studies at Discharge: Yes (Blood Cultures ) Stand-Alone Forms: My [facility] Skilled Items Patient informed of condition?: Yes DNR: No Discharge Level of Care: Acute rehab Communicable Disease: No Discharge Prognosis: Stable Lines: None Urinary Catheter: No Medications and DC Order Prescriptions: New doxycycline hyclate 100 mg Capsule 100 mg PO BID Qty: 6 0RF famotidine [Acid Surface Boss (famotidine)] 10 mg Tablet 10 mg PO BID Qty: 30 0RF amoxicillin-pot clavulanate 875-125 mg tablet 1 tab PO BID Qty: 12 0RF Continued omega-3 fatty acids 1,000 mg Capsule 2,000 mg PO QAM Qty: 0 omeprazole 20 mg Tablet,Delayed Release (Dr/Ec) 20 mg PO QAM Qty: 0 coenzyme Q10 100 mg Capsule 100 mg PO QAM Qty: 0 atorvastatin 40 mg Tablet 40 mg PO HS Qty: 0 dicyclomine 10 mg Capsule 10 mg PO QID PRN (Reason: Abdominal Pain) Qty: 0 Systane Ultra 0.4-0.3 % Drops 1 drp OPHTHALMIC (EYE) QID PRN (Reason: Dry Eye(S)) lorazepam 0.5 mg tablet 0.5 mg PO TID PRN (Reason: Anxiety) pregabalin 150 mg capsule 150 mg PO TID repaglinide 0.5 mg tablet 0.5 mg PO TIDM Rx Instructions: Take before meals valerian root 100 mg Capsule 100 mg PO QAM metformin 750 mg tablet extended release 24 hr 750 mg PO BIDM magnesium 250 mg Tablet 250 mg PO QAM hydrochlorothiazide 25 mg tablet 25 mg PO QAM Excedrin Extra Strength 250-250-65 mg Tablet 2 tab PO Q6H PRN (Reason: Pain) Jardiance 10 mg tablet 10 mg PO DAILY Trulicity 1.5 mg/0.5 mL pen injector 1.5 mg SUBCUT WK aspirin 325 mg Tablet 325 mg PO DAILY cyanocobalamin (vitamin B-12) [Vitamin B-12] 500 mcg Tablet 500 mcg PO BID vitamin B complex Tablet 1 tab PO QAM Discharge Orders: Discharge Order (Routine); Ordered 06/10/22 Ordered By: Segundo Hernadez Admission Data Admit Date/Time: 06/05/22 22:57 Attending Provider: Segundo Hernadez Admit Provider: German Elena Primary Care Provider: [facility] Other Providers: German Elena ; Juan Mario ; Rolando Saeed,Sabrina B. ; Sophia Mcleod ; Lacho Matos ; Dexter Galicia ; Trisha Hernandez ; Mamta Valenzuela ; Tee Gottlieb Jr ; Joe Lucas ; Vinod Dudley ; Alicia Bolivar ; [facility]
== END 2022-06-10 13:34 | DRG 871 ==
LOC: ED 19:02 → EDINP 22:57 → 2N 06-06 19:58

== ENCOUNTER 2024-08-31 10:57 | Observation (INO) ==
[2024-08-31 12:19] LABS: Basophils # (auto) 0.03 K/uL (0.00-0.20); Basophils % (auto) 0.4 %; Eosinophils # (auto) 0.47 K/uL (0.00-0.50); Eosinophils % (auto) 6.2 %; Hematocrit (blood only) 32.8 % (37.0-47.0); Hemoglobin 9.7 g/dl (12.0-16.0); Immature Granulocytes # (auto) 0.03 K/uL (0.01-0.20); Immature Granulocytes % (auto) 0.4 %; Lymphocytes # (auto) 1.64 K/uL (1.20-3.40); Lymphocytes % (auto) 21.8 %; Mean Corpuscular Hemoglobin 22.7 pg (25.0-34.0); Mean Corpuscular Hgb Conc 29.6 g/dL (32.0-36.0); Mean Corpuscular Volume 76.8 fL (80.0-100.0); Mean Platelet Volume 10.7 fL (9.4-12.4); Monocytes # (auto) 0.79 K/uL (0.11-0.59); Monocytes % (auto) 10.5 %; Neutrophils # (auto) 4.57 K/uL (1.40-6.50); Neutrophils % (auto) 60.7 %; Platelet Count 188 K/uL (130-400); RDW Coefficient of Variation 20.1 % (11.5-14.5); Red Blood Count 4.27 M/uL (4.20-5.40); White Blood Count 7.53 K/ul (4.8-10.8)
[2024-08-31 12:35] LABS: Alanine Aminotransferase 17 U/L (7-52); Albumin Globulin Ratio 1.3 (0.9-2); Albumin Level 3.9 gm/dl (3.4-5.0); Alkaline Phosphatase 70 U/L (34-104); Anion Gap 5 (3-11); Aspartate Aminotransferase 24 U/L (13-39); BUN Creatinine Ratio 16.8 (10-20); Bilirubin,Total 0.4 mg/dl (0.2-1.0); Blood Urea Nitrogen 19 mg/dl (6-23); Calcium 9.6 mg/dl (8.6-10.3); Carbon Dioxide 33 mmol/L (21-32); Chloride 100 mmol/L (98-107); Globulin 2.9 gm/dl (2.5-4.0); Glucose 114 mg/dl (70-99(Fasting)); Sodium 138 mmol/L (136-145); Total Protein 6.8 gm/dl (6.0-8.3)
--- NOTE | 2024-08-31 12:35 | XRay Report ---
XR chest 1V not portable CLINICAL HISTORY: Chest pain, nonspecific COMPARISON STUDY: 06/05/2022 FINDINGS: There is stable cardiomegaly without pulmonary vascular congestion. No effusion, consolidat ion, or pneumothorax. IMPRESSION: No acute findings. ACT 112: Negative or not required by law. Electronically signed by: Lawrence Robbins M.D. 08/31/2024 12:34 PM
[2024-08-31 12:45] LABS: Partial Thromboplastin Time 26 Seconds (21-31); Prothrombin Time 10.6 Seconds (9.0-12.0)
[2024-08-31 13:07] LABS: Adenovirus PCR Not Detected (NotDetected); Bordetella parapertussis PCR Not Detected (NotDetected); Bordetella pertussis PCR Not Detected (NotDetected); Chlamydia pneumoniae PCR Not Detected (NotDetected); Coronavirus 229E PCR Not Detected (NotDetected); Coronavirus CoV-2 (COVID19)PCR Not Detected (NotDetected); Coronavirus HKU1 PCR Not Detected (NotDetected); Coronavirus NL63 PCR Not Detected (NotDetected); Coronavirus OC43PCR Not Detected (NotDetected); Human Metapneumovirus PCR Not Detected (NotDetected); Influenza A PCR Not Detected (NotDetected); Influenza B PCR Not Detected (NotDetected); Mycoplasma pneumoniae PCR Not Detected (NotDetected); Parainfluenza Virus 1 PCR Not Detected (NotDetected); Parainfluenza Virus 2 PCR Not Detected (NotDetected); Parainfluenza Virus 3 PCR Not Detected (NotDetected); Parainfluenza Virus 4 PCR Not Detected (NotDetected); Respiratory Syncytial VirusPCR Not Detected (NotDetected); Rhinovirus/Enterovirus PCR Not Detected (NotDetected)
[2024-08-31 13:19] LABS: Anisocytosis Present; Microcytosis Present; Ovalocytes 1+; Polychromasia 1+
--- NOTE | 2024-08-31 13:58 | Emergency Department Note ---
Impression & Plan Gross hematuria, Urinary tract infection, Symptomatic anemia ED Provider Note CHIEF COMPLAINT: Hematuria HISTORY OF PRESENTING ILLNESS: The patient is a pleasant 83-year-old female who arrives to the emergency department for evaluation of blood in urine since Friday. She states the blood let up approximately Friday, then returned and is significantly worsened. She reports she has been urinating clots of blood at this time. She denies dysuria, or fevers. She reports low abdominal pain. She reports no nausea or vomiting. She reports she has been taking [id number] Excedrin migraine 2 tablets up to 4 times daily. She denies use of other anticoagulants. She reports upon arrival, they placed her on oxygen in triage for a low O2 sat. She reports she does not wear oxygen at baseline. She reports she is slightly short of breath. She denies cough, or chest pain. REVIEW OF SYSTEMS: See HPI for pertinent positives and pertinent negatives. ALLERGIES: COVID vaccination MEDICATIONS: See below PAST MEDICAL HISTORY: See below PHYSICAL EXAM: VITALS: Vitals are noted on the nurse's note and reviewed by myself. Vital signs stable. GENERAL: 83-year-old female, in no acute distress, nondiaphoretic, well- developed well-nourished. SKIN: The skin was without rashes, erythema, edema, or bruising. HEAD: Normocephalic atraumatic. EYES: Pupils equal round and reactive to light and accommodation. Conjunctivae without injection, sclerae without icterus. Extraocular movements intact. NECK: Supple without nuchal rigidity. No lymphadenopathy. No JVD. HEART: Regular rate and rhythm without murmurs gallops or rubs. LUNGS: Coarse lung sounds bilateral lower lobes. ABDOMEN: Positive bowel sounds x 4. Soft, TTP diffuse lower abdomen, no rebound tenderness or guarding. MUSCULOSKELETAL: No muscle atrophy, erythema, or edema noted. Strength 5/5 throughout. NEURO: Patient was alert and oriented to person place and time. No focal neurological deficits. DIFFERENTIAL DIAGNOSIS: UTI, pyelonephritis, nephrolithiasis, coagulopathy, rhabdomyolysis, hemolysis, drug-induced, infection, pneumonia, CHF exacerbation, acute on chronic kidney failure, respiratory failure, sepsis, as well as other pathologies. ED COURSE AND MEDICAL DECISION MAKING: HISTORY FROM INDEPENDENT HISTORIAN: Secondary historian at bedside, spouse. MEDICATIONS GIVEN: 2 g IV Rocephin. MONITOR: Continuous table maker: Order was placed for continuous table maker. Patient was placed on the table maker and continuous pulse ox. Patient was noted to be in normal sinus rhythm at an initial rate of 81 bpm per my interpretation. EKG: EKG was interpreted by myself as normal sinus rhythm with sinus arrhythmia, rate of 73 bpm, with no ST elevation, depression, or ectopy. Previous for comparison from May 2022 shows decreased ventricular rate. INTERPRETATION OF LABS: I interpreted the labs with full lab results as below in the lab section of this note. Pertinent lab results discussed in the MDM section below. INTERPRETATION OF IMAGING: Imaging studies were interpreted by myself and read by radiology as per the imaging section of this note. ESCALATION OF CARE CONSIDERED: Admission considered due to patient's history of sepsis, respiratory failure, as well as CKD. MDM SUMMARY: The patient is a pleasant, 83-year-old female who arrives to the emergency department for evaluation of the above-stated complaint. Patient arrived during a time of high acuity and high-volume. Initial workup was performed in triage including a saline lock, CBC, CMP, troponin, PT/INR/PTT, urinalysis, chest x-ray, upper respiratory BioFire panel, and EKG. CBC shows hemoglobin 9.7, which is decreased from previous visit of 06/10/2022 from 11.4. Hematocrit 32.8. CMP shows elevated carbon dioxide 33, with no other acute findings. Troponin 11.0. PT/INR/PTT within normal limits. Urinalysis 2+ blood, 1+ bilirubin, 2+ leukocyte esterase, greater than 50 WBCs, 6-10 epithelial cells, no bacteria, no nitrites. Upper respiratory BioFire panel negative. Chest x-ray per my interpretation shows cardiomegaly, with no other acute findings. EKG per my interpretation shows normal sinus rhythm with sinus arrhythmia at a rate of 73 bpm, with no ST elevation, depression, or ectopy. Previous for comparison from May 2022 shows decreased ventricular rate. Upon evaluation of the patient, it was noted that she was taking excessive amounts of Excedrin Migraine. Acetaminophen, and salicylate level were obtained which resulted at <3. BNP was also obtained due to patient's bilateral lower lobe coarse lung sounds. BNP resulted at 78. CT imaging of the abdomen and pelvis with IV contrast was obtained which per my interpretation shows nonobstructing bilateral nephrolithiasis, no ureteral calculi or hydronephrosis. Colonic diverticulosis without acute diverticulitis. 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 Due to the patient's complaint of chronic headache, CT imaging of the head was obtained which per my interpretation shows no acute intracranial abnormality. Due to the patient requiring oxygen, as well as the drop in hemoglobin, the patient is considered symptomatic anemia. [facility] and workup. Dr[facility] under his care. Please refer to his documentation for further patient evaluation. DIAGNOSIS: Hematuria, symptomatic anemia The patient's case was discussed with Dr. Turner, who agreed with my evaluation and treatment plan. The chart was completed utilizing [employer] Speech voice recognition software. Grammatical errors, random word insertions, pronoun errors, and incomplete sentences are an occasional consequence of this system due to software limitations, ambient noise, and hardware issues. Any formal questions or concerns about the content, text, or information contained within the body of this dictation should be directly addressed to the provider for clarification. Past Med/Surg History Problem List (Updated 08/31/24 @ 23:42 by CAROLYN Rodriguez) Symptomatic anemia (Acute) Urinary tract infection (Acute) Acute hypoxic respiratory failure Gross hematuria (Acute) LVH (left ventricular hypertrophy) CAD (coronary artery disease) (Chronic) Diastolic dysfunction (Chronic) Dementia Ambulatory dysfunction (Acute) Iron deficiency anemia (Acute) Diabetes mellitus, type II (Chronic) Dyslipidemia (Chronic) CKD (chronic kidney disease), stage III (Chronic) Hypertension (Chronic) GERD (gastroesophageal reflux disease) (Chronic) Medical History Non-ST elevation IL (NSTEMI) Fracture of distal end of fibula Kidney stones History of IL (myocardial infarction) Osteoarthritis Dry eye syndrome Anxiety Peripheral neuropathy Surgical History Hx of colonoscopy with polypectomy History of hysterectomy History of carpal tunnel release left History of discectomy LUMBAR (TOTAL 2 LUMBAR DISCECTOMY) History of appendectomy History of tooth extraction Hx of eye surgery LASER PROCEDURE History of cataract surgery RT/LEFT S/P cystoscopy with ureteral stent placement 05/13/19 [facility] Family History Brother Family history of diabetes mellitus Other Cancer Heart disease Kidney disease Social History Smoking Status: Former smoker Tobacco Type: Cigarettes Second Hand Exposure: No; Do You Dip or Chew Tobacco: No; Hx Alcohol Use: No Hx Substance Use: No Preferred Language: Brazilian Communication Ability: Effective Visual Impairment: No Limitations Hearing Ability: Normal Program Engineer Required: No Beliefs That Will Affect Care: None marital status: Current Living Situation: Spouse current occupational status: retired Other Information That Helps Us Care for You: No Feels Safe at Home: Yes Safety Concerns: Feels Safe At This Time Diet: diabetic caffeine: Yes during the past year weight has: remained stable Physical Activity Frequency: Does not Exercise Seatbelt Use: always Do you think of yourself as: straight/heterosexual Gender Identity: Female Assistive Devices: Cane, Walker and Wheelchair Allergies Allergies Allergy/AdvReac Type Severity Reaction Status Date / Time COVID-19 vacc, bv (Orig, AdvReac Intermediate Verified 06/05/22 23:32 Omicron BA.4/5) (Pfizer) [From Pfizer COVID Bival(12y up)(PF)] oxycodone AdvReac Intermediate OVER Verified 11/05/21 14:00 SEDATED Home Meds Home Medications Medication Instructions Recorded Confirmed omega-3 fatty acids 1,000 mg 2,000 mg PO QAM ##0 10/15/13 08/31/24 capsule omeprazole 20 mg tablet,delayed 20 mg PO QAM ##0 10/15/13 08/31/24 release coenzyme Q10 100 mg capsule 100 mg PO QAM ##0 01/04/16 08/31/24 atorvastatin 40 mg tablet 40 mg PO HS ##0 04/09/17 08/31/24 dicyclomine 10 mg capsule 10 mg PO TID Abdominal Pain ##0 04/09/17 08/31/24 peg 400-propylene glycol 0.4 %-0.3 1 drp ophthalmic (eye) QID PRN Dry 05/12/19 08/31/24 % eye drops (Systane Ultra) Eye(S) vitamin B complex 1 tab PO QAM 09/21/20 08/31/24 lorazepam 0.5 mg tablet 0.5 mg PO BID Anxiety 05/24/21 08/31/24 metformin 750 mg tablet,extended 750 mg PO BIDM 05/24/21 08/31/24 release 24 hr pregabalin 150 mg capsule 150 mg PO TID 05/24/21 08/31/24 siyslcq-zblnbulysgfkn-htckveql 250 2 tab PO Q6H PRN Pain 09/24/21 08/31/24 mg-250 mg-65 mg tablet (Excedrin Extra Strength) hydrochlorothiazide 25 mg tablet 25 mg PO QAM 09/24/21 08/31/24 magnesium 250 mg tablet 250 mg PO QAM 09/24/21 08/31/24 cyanocobalamin (vitamin B-12) 500 500 mcg PO BID 06/05/22 08/31/24 mcg tablet (Vitamin B-12) empagliflozin 10 mg tablet 10 mg PO QAM 06/05/22 08/31/24 (Jardiance) famotidine 10 mg tablet (Acid 10 mg PO QAM 08/31/24 08/31/24 Pigment Furnace Tender (famotidine)) insulin glargine 100 unit/mL (3 36 unit subcut QAM 08/31/24 08/31/24 mL) subcutaneous pen (Lantus Solostar U-100 Insulin) semaglutide 2 mg/dose (8 mg/3 mL) 2 mg subcut WK 08/31/24 08/31/24 subcutaneous pen injector (Ozempic) valerian root 450 mg capsule 450 mg PO DAILY 08/31/24 08/31/24 Results & Data (ED) Vital Signs Vital Signs - 24 hr 08/31/24 11:08 08/31/24 15:25 08/31/24 15:25 Temperature 36.2 C L Temperature Source Temporal Artery Scan Pulse Rate 81 Pulse Rate [Apical] 93 H Pulse Rate from SpO2 Sensor Pulse Rhythm Regular Pulse Strength Normal Respiratory Rate 18 24 Respiratory Effort / Characteristics Non-Labored Spontaneous Respiratory Depth Normal Blood Pressure 144/66 H Blood Pressure [Right Arm] 188/77 H Blood Pressure Mean 92 Blood Pressure Mean [Right Arm] 114 Blood Pressure Position Sitting Pulse Oximetry 88 L 98 95 Oxygen Delivery Method Room Air Nasal Cannula Nasal Cannula Oxygen Flow Rate 2 2 Sepsis Recent Fever Within 48 Hours No Sepsis New/Unexplained Change in Mental Status N/A Sepsis Action Taken by Nursing No Action Required 08/31/24 15:25 08/31/24 15:32 08/31/24 15:33 Temperature Temperature Source Pulse Rate 72 73 Pulse Rate [Apical] Pulse Rate from SpO2 Sensor 72 Pulse Rhythm Pulse Strength Respiratory Rate 16 Respiratory Effort / Characteristics Respiratory Depth Blood Pressure Blood Pressure [Right Arm] Blood Pressure Mean Blood Pressure Mean [Right Arm] Blood Pressure Position Pulse Oximetry 95 100 Oxygen Delivery Method Nasal Cannula Oxygen Flow Rate 2 Sepsis Recent Fever Within 48 Hours Sepsis New/Unexplained Change in Mental Status Sepsis Action Taken by Nursing 08/31/24 16:15 08/31/24 16:45 08/31/24 17:00 Temperature Temperature Source Pulse Rate 70 73 73 Pulse Rate [Apical] Pulse Rate from SpO2 Sensor 70 74 72 Pulse Rhythm Pulse Strength Respiratory Rate 15 13 21 Respiratory Effort / Characteristics Respiratory Depth Blood Pressure Blood Pressure [Right Arm] Blood Pressure Mean Blood Pressure Mean [Right Arm] Blood Pressure Position Pulse Oximetry 99 100 98 Oxygen Delivery Method Oxygen Flow Rate Sepsis Recent Fever Within 48 Hours Sepsis New/Unexplained Change in Mental Status Sepsis Action Taken by Nursing 08/31/24 17:15 08/31/24 17:27 08/31/24 17:42 Temperature Temperature Source Pulse Rate 71 77 Pulse Rate [Apical] Pulse Rate from SpO2 Sensor 72 78 Pulse Rhythm Pulse Strength Respiratory Rate 17 19 Respiratory Effort / Characteristics Respiratory Depth Blood Pressure 148/89 H Blood Pressure [Right Arm] Blood Pressure Mean 105 Blood Pressure Mean [Right Arm] Blood Pressure Position Pulse Oximetry 98 97 Oxygen Delivery Method Oxygen Flow Rate Sepsis Recent Fever Within 48 Hours Sepsis New/Unexplained Change in Mental Status Sepsis Action Taken by Nursing Laboratory Data 08/31/24 11:59 08/31/24 11:59 Lab Results 08/31/24 08/31/24 08/31/24 Range/Units 11:59 12:01 15:30 WBC 7.53 (4.8-10.8) K/ul RBC 4.27 (4.20-5.40) M/uL Hgb 9.7 L (12.0-16.0) g/dl Hct 32.8 L (37.0-47.0) % MCV 76.8 L (80.0-100.0) fL MCH 22.7 L (25.0-34.0) pg MCHC 29.6 L (32.0-36.0) g/dL RDW Std Deviation 56.0 H (36.4-46.3) fL RDW Coeff of Pia 20.1 H (11.5-14.5) % Plt Count 188 (130-400) K/uL MPV 10.7 (9.4-12.4) fL Immature Gran % (Auto) 0.4 % Neut % (Auto) 60.7 % Lymph % (Auto) 21.8 % Young % (Auto) 10.5 % Eos % (Auto) 6.2 % Baso % (Auto) 0.4 % Neut # (Auto) 4.57 (1.40-6.50) K/uL Lymph # (Auto) 1.64 (1.20-3.40) K/uL Young # (Auto) 0.79 H (0.11-0.59) K/uL Eos # (Auto) 0.47 (0.00-0.50) K/uL Baso # (Auto) 0.03 (0.00-0.20) K/uL Immature Gran # (Auto) 0.03 (0.01-0.20) K/uL Polychromasia 1+ Anisocytosis Present Microcytosis Present Ovalocytes 1+ PT 10.6 (9.0-12.0) Seconds INR 1.0 (0.9-1.1) APTT 26 (21-31) Seconds PTT Ratio 1.0 Sodium 138 (136-145) mmol/L Potassium 4.0 (3.5-5.1) mmol/L Chloride 100 (98-107) mmol/L Carbon Dioxide 33 H (21-32) mmol/L Anion Gap 5 (3-11) BUN 19 (6-23) mg/dl Creatinine 1.13 (0.6-1.2) mg/dl Est Cr Clr Drug Dosing Not Reportable eGFR 48.57 BUN/Creatinine Ratio 16.8 (10-20) Glucose 114 H (70-99(Fasting)) mg/dl Calcium 9.6 (8.6-10.3) mg/dl Total Bilirubin 0.4 (0.2-1.0) mg/dl AST 24 (13-39) U/L ALT 17 (7-52) U/L Alkaline Phosphatase 70 (34-104) U/L Troponin I High Sens 11.0 (0-14) pg/ml B-Natriuretic Peptide 78 (0-100) pg/ml Total Protein 6.8 (6.0-8.3) gm/dl Albumin 3.9 (3.4-5.0) gm/dl Globulin 2.9 (2.5-4.0) gm/dl Albumin/Globulin Ratio 1.3 (0.9-2) Salicylates < 3.0 L (3.0-30) mg/dl Acetaminophen < 3 L (10-30) ug/ml Adenovirus (PCR) Not Detected (NotDetected) B. pertussis DNA (PCR) Not Detected (NotDetected) B.parapertussis DNA PCR Not Detected (NotDetected) C. pneumoniae DNA (PCR) Not Detected (NotDetected) Coronavirus OC43 (PCR) Not Detected (NotDetected) Coronavirus HKU1 (PCR) Not Detected (NotDetected) Coronavirus 229E (PCR) Not Detected (NotDetected) SARS-CoV-2 (PCR) Not Detected (NotDetected) Coronavirus NL63 (PCR) Not Detected (NotDetected) Human Metapneumovir PCR Not Detected (NotDetected) Influenza Type A (PCR) Not Detected (NotDetected) Influenza Type B (PCR) Not Detected (NotDetected) M. pneumoniae (PCR) Not Detected (NotDetected) Parainfluenza 1 (PCR) Not Detected (NotDetected) Parainfluenza 2 (PCR) Not Detected (NotDetected) Parainfluenza 3 (PCR) Not Detected (NotDetected) Parainfluenza 4 (PCR) Not Detected (NotDetected) RSV (PCR) Not Detected (NotDetected) Entero/Rhino (PCR) Not Detected (NotDetected) Administered Medications Atorvastatin Calcium (Atorvastatin 40 Mg Tab) 40 mg PO HS URI Stop: 09/30/24 20:59 Last Admin: 08/31/24 22:17 Dose: 40 mg Documented By: CEF Cyanocobalamin (Cyanocobalamin (B-12) 500 Mcg Tablet) 500 mcg PO BID URI Stop: 09/30/24 20:59 Last Admin: 08/31/24 22:17 Dose: 500 mcg Documented By: DWAYNE Dicyclomine HCl (Dicyclomine Hcl 10 Mg Cap) 10 mg PO TID [facility] Stop: 09/30/24 20:59 Last Admin: 08/31/24 22:17 Dose: 10 mg Documented By: DWAYNE Insulin Aspart (Insulin Aspart Per Unit Charge) 0 units SC ACHS [facility] Stop: 09/30/24 20:59 Last Admin: 08/31/24 22:33 Dose: Not Given Documented By: DWAYNE Co-signed By: JASON Pregabalin (Pregabalin 150 Mg Cap) 150 mg PO TID [facility] Stop: 09/30/24 20:59 Last Admin: 08/31/24 22:16 Dose: 150 mg Documented By: CEF Discontinued Medications Ceftriaxone Sodium (Rocephin) 2,000 mg in 50 mls @ 100 mls/hr IV NOW STA Stop: 08/31/24 16:09 Last Infusion: 08/31/24 16:27 Dose: Infused Documented By: Admin: 08/31/24 15:49 Dose: 100 mls/hr Documented By: CEF Ioversol (Optiray 320 100ml) 94 ml IV ONCE ONE Stop: 08/31/24 14:28 Last Admin: 08/31/24 14:27 Dose: 94 ml Documented By: CLAUDIA Ioversol (Optiray 320 125ml) 118 ml IV ONCE ONE Stop: 08/31/24 19:13 Last Admin: 08/31/24 19:13 Dose: 118 ml Documented By: RUTH Imaging Data Radiologist's Impression: Chest X-Ray 08/31/24 11:13 XR chest 1V not portable CLINICAL HISTORY: Chest pain, nonspecific COMPARISON STUDY: 06/05/2022 FINDINGS: There is stable cardiomegaly without pulmonary vascular congestion. No effusion, consolidation, or pneumothorax. IMPRESSION: No acute findings. ACT 112: Negative or not required by law. Electronically signed by: Lawrence Robbins M.D. 08/31/2024 12:34 PM Abdomen/Pelvis CT 08/31/24 14:[address] WITH IV CONTRAST HISTORY: Acute generalized abdominal pain abdominal pain TECHNIQUE: Multiaxial CT images of the abdomen and pelvis were performed following the IV administration of 94 cc of Optiray, A dose lowering technique was utilized adhering to the principles of ALARA. COMPARISON STUDY: 06/05/2022 FINDINGS: Cardiomegaly with extensive coronary artery calcifications. No pneumatosis or pneumoperitoneum. The spleen measures 14 cm in length. There are a few punctate pancreatic calcifications are otherwise unremarkable appearance of the pancreas. Unremarkable liver, gallbladder and adrenal glands. There is patency of the hepatic and portal veins. Cortical thinning of the kidneys without hydronephrosis. 3 mm nonobstructing calculus in the interpolar left kidney. Small cyst of the superior pole left kidney. There are a few nonobstructing calculi right kidney measuring up to 3-4 mm. No hydronephrosis. Decompressed urinary bladder. Hysterectomy. Atherosclerosis of the abdominal aorta with fusiform infrarenal dilation measuring 3.0 x 2.7 cm. No lymphadenopathy. Small hiatal hernia. There is no bowel obstruction or bowel wall thickening. Extensive colonic diverticulosis without acute diverticulitis. No ascites or mesenteric inflammation. Appendix not seen. Unremarkable soft tissues. Mild L1 compression deformity, likely chronic. IMPRESSION: 1. Nonobstructing bilateral nephrolithiasis. No ureteral calculi or hydronephrosis. 2. Colonic diverticulosis without acute diverticulitis. 3. 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 4. Small hiatal hernia. ACT 112: Negative or not required by law. The above report was generated using voice recognition software. It may contain grammatical, syntax or spelling errors. Electronically signed by: Gabe Berg M.D. 08/31/2024 2:[address] 08/31/24 14:23 CT head/brain wo con CLINICAL HISTORY: 83 years-old Female with headache. Acute headache TECHNIQUE: Multiple axial CT images of the head were obtained without contrast. A dose lowering technique was utilized adhering to the principles of ALARA. CT DOSE: 2155.48 mGy.cm COMPARISON: 06/09/2021 FINDINGS: No acute intracranial hemorrhage, midline shift, intracranial mass, hydrocephalus, territorial ischemia or abnormal extra-axial collection. Involutional changes with chronic microvascular ischemic disease. Chronic calcifications of the lentiform and dentate nuclei. Chronic right cerebellar infarct. The calvarium is intact. The paranasal sinuses, mastoid air cells, and middle ear cavities are clear. IMPRESSION: No acute intracranial abnormality. ACT 112: Negative or not required by law. The above report was generated using voice recognition software. It may contain grammatical, syntax or spelling errors. Electronically signed by: Gabe Berg M.D. 08/31/2024 2:43 PM Discharge Plan Visit Data Chief Complaint: Hematuria Stated Complaint: HEMATURIA, ABD PAIN ED Provider: Ted Turner ED Midlevel Provider: Marie Garcia Discharge Problem: Gross hematuria, Urinary tract infection, Symptomatic anemia Patient Disposition: Admitted As Inpatient Discharge Instructions Interventions: ED Discharge Assessment Last Done: 08/31/24 20:31
[2024-08-31 14:02] LABS: Appearance Urine Clear (Clear); Bacteria Urine Automated None Seen (None Seen); Bilirubin Urine 1+ (Negative); Blood Urine 2+ (Negative); Cast Urine Automated 0-2 /lpf (0-2); Color Urine Dark Yellow; Glucose Urine UA 3+ (Negative); Ketones Urine Trace (Negative); Leukocyte Esterase Urine 2+ (Negative); Nitrite Urine Negative (Negative); Protein Urine Trace (Negative); RBC Urine Automated >20 /hpf (0-2); Specific Gravity Urine 1.027 (1.000-1.030); Urobilinogen Urine Negative (Negative); WBC Urine Automated >50 /hpf (0-5)
[2024-08-31] MEDS: OPTIRAY 320 100ml IV ONE (14:27)
--- NOTE | 2024-08-31 14:44 | CT Scan Report ---
CT head/brain wo con CLINICAL HISTORY: 83 years-old Female with headache. Acute headache TECHNIQUE: Multiple axial CT images of the head were obtained without contrast. A dose lowering tech nique was utilized adhering to the principles of ALARA. CT DOSE: 2155.48 mGy.cm COMPARISON: 06/09/2021 FINDINGS: No acute intracranial hemorrhage, midline shift, intracranial mass, hydrocephalus, territorial ischem ia or abnormal extra-axial collection. Involutional changes with chronic microvascular ischemic disea se. Chronic calcifications of the lentiform and dentate nuclei. Chronic right cerebellar infarct. The calvarium is intact. The paranasal sinuses, mastoid air cells, and middle ear cavities are clear . IMPRESSION: No acute intracranial abnormality. ACT 112: Negative or not required by law. The above report was generated using voice recognition software. It may contain grammatical, syntax o r spelling errors. Electronically signed by: Gabe Berg M.D. 08/31/2024 2:43 PM
--- NOTE | 2024-08-31 14:58 | CT Scan Report ---
ABDOMEN AND PELVIS CT WITH IV CONTRAST HISTORY: Acute generalized abdominal pain abdominal pain TECHNIQUE: Multiaxial CT images of the abdomen and pelvis were performed following the IV administrat ion of 94 cc of Optiray, A dose lowering technique was utilized adhering to the principles of ALARA. COMPARISON STUDY: 06/05/2022 FINDINGS: Cardiomegaly with extensive coronary artery calcifications. No pneumatosis or pneumoperiton eum. The spleen measures 14 cm in length. There are a few punctate pancreatic calcifications are othe rwise unremarkable appearance of the pancreas. Unremarkable liver, gallbladder and adrenal glands. Th ere is patency of the hepatic and portal veins. Cortical thinning of the kidneys without hydronephrosis. 3 mm nonobstructing calculus in the interpol ar left kidney. Small cyst of the superior pole left kidney. There are a few nonobstructing calculi r ight kidney measuring up to 3-4 mm. No hydronephrosis. Decompressed urinary bladder. Hysterectomy. Atherosclerosis of the abdominal aorta with fusiform infrarenal dilation measuring 3.0 x 2.7 cm. No l ymphadenopathy. Small hiatal hernia. There is no bowel obstruction or bowel wall thickening. Extensiv e colonic diverticulosis without acute diverticulitis. No ascites or mesenteric inflammation. Appendi x not seen. Unremarkable soft tissues. Mild L1 compression deformity, likely chronic. IMPRESSION: 1. Nonobstructing bilateral nephrolithiasis. No ureteral calculi or hydronephrosis. 2. Colonic diverticulosis without acute diverticulitis. 3. 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 4. Small hiatal hernia. ACT 112: Negative or not required by law. The above report was generated using voice recognition software. It may contain grammatical, syntax o r spelling errors. Electronically signed by: Gabe Berg M.D. 08/31/2024 2:57 PM
--- NOTE | 2024-08-31 15:32 | Emergency Department Note ---
ED Visit Note I was consulted by the Advanced Practice Provider, CAROLYN Villasenor.. I personally made/approved the management plan and take responsibility for the patient management. I performed a substantive portion of the visit. This includes the aspects of: -History/Physical/Personally seeing the patient -MDM .
[2024-08-31] MEDS: cefTRIAXone SODIUM 2,000 MG/50 ML BAG IV STA (15:49)
[2024-08-31 16:14] LABS: Acetaminophen < 3 ug/ml (10-30); Salicylate < 3.0 mg/dl (3.0-30)
--- NOTE | 2024-08-31 16:18 | Electrocardiogram Report ---
Test Reason : Blood Pressure : */* mmHG Vent. Rate : 73 BPM Atrial Rate : 73 BPM P-R Int : 176 ms QRS Dur : 78 ms QT Int : 396 ms P-R-T Axes : 60 -37 44 degrees QTcB Int : 436 ms Normal sinus rhythm with sinus arrhythmia Left axis deviation Low voltage QRS Cannot rule out Anterior infarct (cited on or before 05-Jun-2022) Abnormal ECG When compared with ECG of 05-Jun-2022 19:14, Vent. rate has decreased by 56 bpm Confirmed by Ted Davidson ([id number]) on 08/31/2024 4:18:06 PM Referred By: Confirmed By: Ted Davidson
--- NOTE | 2024-08-31 16:46 | History & Physical Report ---
<Statement entered by Nikhil Liang, DO - 08/31/24 19:12> I have seen and examined the patient and have discussed the case with the advance practice provider. I have reviewed the advanced practitioner's documentation, and I agree with, and take responsibility for that plan of care. Patient seen and evaluated in the ED. at bedside. Patient reports she was passing clots. She also states there was some blood on a feminine pad that she wears in her underwear. However, she could not be sure that it was definitely from her urine. She states that it was like she was menstruating. Patient is status post hysterectomy. Patient reports that she has not had any recent intercourse. No trauma to the perineal area. Three-way Hernandez catheter inserted, clear yellow urine was returned with no evidence of blood. With urine findings as above, performed external vaginal exam and rectal exam in the presence of bedside nurse. Patient had a small excoriation on the left external labia. A very small eschar. Did not look like it had been bleeding recently. Rectal exam brown mucousy stool in vault that tested Hemoccult negative. Some external hemorrhoids but no evidence of bleeding or thrombosis. When questioned about the small area of excoriation on the vagina. stated that the patient had reported a "pimple" down there last week I did put some ointment on. It did not seem as though it was related to the bleeding she saw the last couple days. Patient presents to the ED with reports of passing blood clots and her urine. Urine is clear, external vaginal exam shows no evidence of bleeding, rectal exam no evidence of bleeding. Patient status post hysterectomy. At this point we will maintain Hernandez and continue to monitor for any additional bleeding if no bleeding source is identified, it is potential that this area of excoriation was what had been bleeding. I spent a total of 29 minutes coordinating, documenting, and providing care for this patient excluding time spent by another provider/QHP. Date of Service August 31, 2024 Assessment & Plan (1) Gross hematuria: (2) Acute hypoxic respiratory failure: (3) Diabetes mellitus, type II: (4) CKD (chronic kidney disease), stage III: (5) Dyslipidemia: (6) Hypertension: (7) GERD (gastroesophageal reflux disease): Plan This is an 83 y/o female with DM2, hx NSTEMI, chronic HFpEF, HTN, hyperlipidemia, CKD3, prior left jugular vein thrombosis, dementia, GERD, and other history as outlined below who presents to the ED today with gross hematuria. In the ED, she was found to be hypoxic with sats 86-88% on room air, improved on 2L. Does not require O2 at baseline. Of note, she has been taking large amounts of aspirin over the last several days (preceding onset of hematuria) for a AGUIAR. #Acute hypoxic respiratory failure - unclear etiology at present. No recent illness, no fever, no leukocytosis. BNP normal, no increased pedal edema. - Admit to med telemetry - CTA chest to r/o PE - Update ECHO - Continue supplemetal O2 - wean as tolerated #Hematuria - unclear etiology, may be related to large quantities of aspirin, CT abd/pel with nonobstructing stones - Three-way ureteral catheter - Consult urology - Repeat CBC in the AM - unclear what pt's baseline H&H is (last done in [facility] in 2022, hgb 11) - Continue empiric ceftriaxone for now pending urine culture #Insulin-requiring DM2 with neuropathy - last A1c on 07/08/24 was 7.3 - Continue basal insulin with sliding scale - Diabetic diet - BSG ACHS - Continue pregabalin' #Hypertension - BP on my evaluation in the ED was 148/89 - Continue home medications #Dyslipidemia - Chronic, stable - continue statin #CKD3 - creatinine appears to be around baseline of 1 - Trend BMP #GERD - Chronic, stable - continue PPI Pt seen and reviewed with collaborating physician, Dr. Liang. Plan of care discussed and as outlined above. Code status: full code DVT prophylaxis: TEDS for now pending CTA chest due to gross hematuria updated at the bedside - all questions answered Eventual PT/OT evaluations once more medically stable Tommie Garibay PA-C History of Present Illness Chief Complaint: Hematuria Primary Care Provider: [facility] MD This is an 83 y/o female with DM2, hx NSTEMI, chronic HFpEF, HTN, hyperlipidemia, CKD3, prior left jugular vein thrombosis, dementia, GERD, and other history as outlined below who presents to the ED today with gross hematuria. Pt's at the bedside assists with the history. Pt reports starting with gross hematuria four days ago, associated incontinence. Yesterday, it seems to stop for several hours but then recurrent again by evening and this morning so came to the ED for evaluation. She has associated intermittent LLQ pain, denies flank pain. Notes nausea but no vomiting. Last BM was four days ago - bowels tend towards constipation. No blood. Appetite has been good. She has seen [facility] (Dr. Bone) previously for nephrolithiasis. In 2019, underwent cystoscopy with lithotripsy and stent placement due to left ureteral stone. History of intermittent gross hematuria and several kidney stones in the past. She has had a headache the last several days so she has been taking Excedrin 2 tabs every four hours over the last few days. Denies NSAIDs. She denies recent illness, cough, head congestion, chest pain, palpitations, or shortness of breath at rest. She does get winded with activity but notes limited activity as she uses a wheelchair due to balance issues. Her outpatient Epic records including prior urology and cardiology notes were reviewed to augment the history. Cardiac cath 2018 - essentially normal coronary arteries, elevated intracardiac filling pressure ECHO 03/06/21 - technically limited study; EF 50-55%; mild concentric LVH Allergies Allergy/AdvReac Type Severity Reaction Status Date / Time COVID-19 vacc, bv (Orig, AdvReac Intermediate Verified 06/05/22 23:32 Omicron BA.4/5) (Pfizer) [From Pfizer COVID Bival(12y up)()] oxycodone AdvReac Intermediate OVER Verified 11/05/21 14:00 SEDATED Home Medications Medication Instructions Recorded Confirmed Type omega-3 fatty acids 1,000 mg 2,000 mg PO QAM ##0 10/15/13 08/31/24 History capsule omeprazole 20 mg tablet,delayed 20 mg PO QAM ##0 10/15/13 08/31/24 History release coenzyme Q10 100 mg capsule 100 mg PO QAM ##0 01/04/16 08/31/24 History atorvastatin 40 mg tablet 40 mg PO HS ##0 04/09/17 08/31/24 History dicyclomine 10 mg capsule 10 mg PO TID Abdominal Pain ##0 04/09/17 08/31/24 History peg 400-propylene glycol 0.4 %-0.3 1 drp ophthalmic (eye) QID PRN Dry 05/12/19 08/31/24 History % eye drops (Systane Ultra) Eye(S) vitamin B complex 1 tab PO QAM 09/21/20 08/31/24 History lorazepam 0.5 mg tablet 0.5 mg PO BID Anxiety 05/24/21 08/31/24 History metformin 750 mg tablet,extended 750 mg PO BIDM 05/24/21 08/31/24 History release 24 hr pregabalin 150 mg capsule 150 mg PO TID 05/24/21 08/31/24 History knpcjnp-cutdqrlokbfai-xewrxfdl 250 2 tab PO Q6H PRN Pain 09/24/21 08/31/24 History mg-250 mg-65 mg tablet (Excedrin Extra Strength) hydrochlorothiazide 25 mg tablet 25 mg PO QAM 09/24/21 08/31/24 History magnesium 250 mg tablet 250 mg PO QAM 09/24/21 08/31/24 History cyanocobalamin (vitamin B-12) 500 500 mcg PO BID 06/05/22 08/31/24 History mcg tablet (Vitamin B-12) empagliflozin 10 mg tablet 10 mg PO QAM 06/05/22 08/31/24 History (Jardiance) famotidine 10 mg tablet (Acid 10 mg PO QAM 08/31/24 08/31/24 History Edging Catcher (famotidine)) insulin glargine 100 unit/mL (3 36 unit subcut QAM 08/31/24 08/31/24 History mL) subcutaneous pen (Lantus Solostar U-100 Insulin) semaglutide 2 mg/dose (8 mg/3 mL) 2 mg subcut WK 08/31/24 08/31/24 History subcutaneous pen injector (Ozempic) valerian root 450 mg capsule 450 mg PO DAILY 08/31/24 08/31/24 History Past Med/Surg History Problem List (Updated 08/31/24 @ 18:30 by Patsy Garibay PA-C) Acute hypoxic respiratory failure Gross hematuria LVH (left ventricular hypertrophy) CAD (coronary artery disease) (Chronic) Diastolic dysfunction (Chronic) Dementia Ambulatory dysfunction (Acute) Iron deficiency anemia (Acute) Diabetes mellitus, type II (Chronic) Dyslipidemia (Chronic) CKD (chronic kidney disease), stage III (Chronic) Hypertension (Chronic) GERD (gastroesophageal reflux disease) (Chronic) Medical History Non-ST elevation [place] (NSTEMI) Fracture of distal end of fibula Kidney stones History of [place] (myocardial infarction) Osteoarthritis Dry eye syndrome Anxiety Peripheral neuropathy Surgical History Hx of colonoscopy with polypectomy History of hysterectomy History of carpal tunnel release left History of discectomy LUMBAR (TOTAL 2 LUMBAR DISCECTOMY) History of appendectomy History of tooth extraction Hx of eye surgery LASER PROCEDURE History of cataract surgery RT/LEFT S/P cystoscopy with ureteral stent placement 05/13/19 [facility] Family History Brother Family history of diabetes mellitus Other Cancer Heart disease Kidney disease Social History Smoking Status: Former smoker Tobacco Type: Cigarettes Second Hand Exposure: No; Do You Dip or Chew Tobacco: No; Hx Alcohol Use: No Hx Substance Use: No Preferred Language: Maori Communication Ability: Effective Visual Impairment: No Limitations Hearing Ability: Normal Reinforced Concrete Inspector Required: No Beliefs That Will Affect Care: None marital status: Current Living Situation: Spouse current occupational status: retired Feels Safe at Home: Yes Diet: diabetic caffeine: Yes during the past year weight has: remained stable Physical Activity Frequency: Does not Exercise Seatbelt Use: always Do you think of yourself as: straight/heterosexual Gender Identity: Female Assistive Devices: Walker Review of Systems Review of Systems: All systems reviewed & are unremarkable except as noted in Subjective Physical Exam Physical Exam: General: awake, alert, NAD HEENT: no scleral icterus, moist oral mucosa Neck: supple, trachea midline Heart: RRR Lungs: scattered crackles but no wheezes Abdomen: soft, minimal LLQ tenderness, +BS Extremities: trace pedal edema Skin: warm, dry, no jaundice Neurologic: Ox3, moving all extremities, no focal deficits or dysarthria Results & Data Results & Data Vital Signs (Past 12 Hours) Vital Signs Temp Pulse Pulse Resp BP BP Pulse Ox 08/31/24 15:32 72 08/31/24 15:25 95 08/31/24 15:25 95 08/31/24 15:25 93 H 24 188/77 H 98 08/31/24 11:08 36.2 C L 81 18 144/66 H 88 L O2 Del Method O2 Flow Rate 08/31/24 15:32 08/31/24 15:25 Nasal Cannula 2 08/31/24 15:25 Nasal Cannula 2 08/31/24 15:25 Nasal Cannula 2 08/31/24 11:08 Room Air Laboratory Results Lab Results 08/31/24 08/31/24 08/31/24 Range/Units 11:59 12:01 15:30 WBC 7.53 (4.8-10.8) K/ul RBC 4.27 (4.20-5.40) M/uL Hgb 9.7 L (12.0-16.0) g/dl Hct 32.8 L (37.0-47.0) % MCV 76.8 L (80.0-100.0) fL MCH 22.7 L (25.0-34.0) pg MCHC 29.6 L (32.0-36.0) g/dL RDW Std Deviation 56.0 H (36.4-46.3) fL RDW Coeff of Pia 20.1 H (11.5-14.5) % Plt Count 188 (130-400) K/uL MPV 10.7 (9.4-12.4) fL Immature Gran % (Auto) 0.4 % Neut % (Auto) 60.7 % Lymph % (Auto) 21.8 % Crisp % (Auto) 10.5 % Eos % (Auto) 6.2 % Baso % (Auto) 0.4 % Neut # (Auto) 4.57 (1.40-6.50) K/uL Lymph # (Auto) 1.64 (1.20-3.40) K/uL Crisp # (Auto) 0.79 H (0.11-0.59) K/uL Eos # (Auto) 0.47 (0.00-0.50) K/uL Baso # (Auto) 0.03 (0.00-0.20) K/uL Immature Gran # (Auto) 0.03 (0.01-0.20) K/uL Polychromasia 1+ Anisocytosis Present Microcytosis Present Ovalocytes 1+ PT 10.6 (9.0-12.0) Seconds INR 1.0 (0.9-1.1) APTT 26 (21-31) Seconds PTT Ratio 1.0 Sodium 138 (136-145) mmol/L Potassium 4.0 (3.5-5.1) mmol/L Chloride 100 (98-107) mmol/L Carbon Dioxide 33 H (21-32) mmol/L Anion Gap 5 (3-11) BUN 19 (6-23) mg/dl Creatinine 1.13 (0.6-1.2) mg/dl Est Cr Clr Drug Dosing Not Reportable eGFR 48.57 BUN/Creatinine Ratio 16.8 (10-20) Glucose 114 H (70-99(Fasting)) mg/dl Calcium 9.6 (8.6-10.3) mg/dl Total Bilirubin 0.4 (0.2-1.0) mg/dl AST 24 (13-39) U/L ALT 17 (7-52) U/L Alkaline Phosphatase 70 (34-104) U/L Troponin I High Sens 11.0 (0-14) pg/ml B-Natriuretic Peptide 78 (0-100) pg/ml Total Protein 6.8 (6.0-8.3) gm/dl Albumin 3.9 (3.4-5.0) gm/dl Globulin 2.9 (2.5-4.0) gm/dl Albumin/Globulin Ratio 1.3 (0.9-2) Urine Color Urine Appearance (Clear) Urine pH (4.5-7.5) Ur Specific [place] (1.000-1.030) Urine Protein (Negative) Urine Glucose (UA) (Negative) Urine Ketones (Negative) Urine Blood (Negative) Urine Nitrite (Negative) Urine Bilirubin (Negative) Urine Urobilinogen (Negative) Ur Leukocyte Esterase (Negative) Urine WBC (Auto) (0-5) /hpf Urine RBC (Auto) (0-2) /hpf U Hyaline Cast (Auto) (0-2) /lpf U Epithel Cells (Auto) (0-2) /hpf Urine Bacteria (Auto) (None Seen) Urine Yeast (None Prsent) Salicylates < 3.0 L (3.0-30) mg/dl Acetaminophen < 3 L (10-30) ug/ml Adenovirus (PCR) Not Detected (NotDetected) B. pertussis DNA (PCR) Not Detected (NotDetected) B.parapertussis DNA PCR Not Detected (NotDetected) C. pneumoniae DNA (PCR) Not Detected (NotDetected) Coronavirus OC43 (PCR) Not Detected (NotDetected) Coronavirus HKU1 (PCR) Not Detected (NotDetected) Coronavirus 229E (PCR) Not Detected (NotDetected) SARS-CoV-2 (PCR) Not Detected (NotDetected) Coronavirus NL63 (PCR) Not Detected (NotDetected) Human Metapneumovir PCR Not Detected (NotDetected) Influenza Type A (PCR) Not Detected (NotDetected) Influenza Type B (PCR) Not Detected (NotDetected) M. pneumoniae (PCR) Not Detected (NotDetected) Parainfluenza 1 (PCR) Not Detected (NotDetected) Parainfluenza 2 (PCR) Not Detected (NotDetected) Parainfluenza 3 (PCR) Not Detected (NotDetected) Parainfluenza 4 (PCR) Not Detected (NotDetected) RSV (PCR) Not Detected (NotDetected) Entero/Rhino (PCR) Not Detected (NotDetected) 08/31/24 Range/Units Unknown WBC (4.8-10.8) K/ul RBC (4.20-5.40) M/uL Hgb (12.0-16.0) g/dl Hct (37.0-47.0) % MCV (80.0-100.0) fL MCH (25.0-34.0) pg MCHC (32.0-36.0) g/dL RDW Std Deviation (36.4-46.3) fL RDW Coeff of Pia (11.5-14.5) % Plt Count (130-400) K/uL MPV (9.4-12.4) fL Immature Gran % (Auto) % Neut % (Auto) % Lymph % (Auto) % Crisp % (Auto) % Eos % (Auto) % Baso % (Auto) % Neut # (Auto) (1.40-6.50) K/uL Lymph # (Auto) (1.20-3.40) K/uL Crisp # (Auto) (0.11-0.59) K/uL Eos # (Auto) (0.00-0.50) K/uL Baso # (Auto) (0.00-0.20) K/uL Immature Gran # (Auto) (0.01-0.20) K/uL Polychromasia Anisocytosis Microcytosis Ovalocytes PT (9.0-12.0) Seconds INR (0.9-1.1) APTT (21-31) Seconds PTT Ratio Sodium (136-145) mmol/L Potassium (3.5-5.1) mmol/L Chloride (98-107) mmol/L Carbon Dioxide (21-32) mmol/L Anion Gap (3-11) BUN (6-23) mg/dl Creatinine (0.6-1.2) mg/dl Est Cr Clr Drug Dosing eGFR BUN/Creatinine Ratio (10-20) Glucose (70-99(Fasting)) mg/dl Calcium (8.6-10.3) mg/dl Total Bilirubin (0.2-1.0) mg/dl AST (13-39) U/L ALT (7-52) U/L Alkaline Phosphatase (34-104) U/L Troponin I High Sens (0-14) pg/ml B-Natriuretic Peptide (0-100) pg/ml Total Protein (6.0-8.3) gm/dl Albumin (3.4-5.0) gm/dl Globulin (2.5-4.0) gm/dl Albumin/Globulin Ratio (0.9-2) Urine Color Dark Yellow Urine Appearance Clear (Clear) Urine pH 5.0 (4.5-7.5) Ur Specific [place] 1.027 (1.000-1.030) Urine Protein Trace H (Negative) Urine Glucose (UA) 3+ H (Negative) Urine Ketones Trace H (Negative) Urine Blood 2+ H (Negative) Urine Nitrite Negative (Negative) Urine Bilirubin 1+ H (Negative) Urine Urobilinogen Negative (Negative) Ur Leukocyte Esterase 2+ H (Negative) Urine WBC (Auto) >50 H (0-5) /hpf Urine RBC (Auto) >20 H (0-2) /hpf U Hyaline Cast (Auto) 0-2 (0-2) /lpf U Epithel Cells (Auto) 6-10 H (0-2) /hpf Urine Bacteria (Auto) None Seen (None Seen) Urine Yeast Present A (None Prsent) Salicylates (3.0-30) mg/dl Acetaminophen (10-30) ug/ml Adenovirus (PCR) (NotDetected) B. pertussis DNA (PCR) (NotDetected) B.parapertussis DNA PCR (NotDetected) C. pneumoniae DNA (PCR) (NotDetected) Coronavirus OC43 (PCR) (NotDetected) Coronavirus HKU1 (PCR) (NotDetected) Coronavirus 229E (PCR) (NotDetected) SARS-CoV-2 (PCR) (NotDetected) Coronavirus NL63 (PCR) (NotDetected) Human Metapneumovir PCR (NotDetected) Influenza Type A (PCR) (NotDetected) Influenza Type B (PCR) (NotDetected) M. pneumoniae (PCR) (NotDetected) Parainfluenza 1 (PCR) (NotDetected) Parainfluenza 2 (PCR) (NotDetected) Parainfluenza 3 (PCR) (NotDetected) Parainfluenza 4 (PCR) (NotDetected) RSV (PCR) (NotDetected) Entero/Rhino (PCR) (NotDetected) Diagnostic Findings Chest X-Ray 08/31/24 11:13 XR chest 1V not portable CLINICAL HISTORY: Chest pain, nonspecific COMPARISON STUDY: 06/05/2022 FINDINGS: There is stable cardiomegaly without pulmonary vascular congestion. No effusion, consolidation, or pneumothorax. IMPRESSION: No acute findings. ACT 112: Negative or not required by law. Electronically signed by: Lawrence Robbins M.D. 08/31/2024 12:34 PM Abdomen/Pelvis CT 08/31/24 14:[address] WITH IV CONTRAST HISTORY: Acute generalized abdominal pain abdominal pain TECHNIQUE: Multiaxial CT images of the abdomen and pelvis were performed following the IV administration of 94 cc of Optiray, A dose lowering technique was utilized adhering to the principles of ALARA. COMPARISON STUDY: 06/05/2022 FINDINGS: Cardiomegaly with extensive coronary artery calcifications. No pneumatosis or pneumoperitoneum. The spleen measures 14 cm in length. There are a few punctate pancreatic calcifications are otherwise unremarkable appearance of the pancreas. Unremarkable liver, gallbladder and adrenal glands. There is patency of the hepatic and portal veins. Cortical thinning of the kidneys without hydronephrosis. 3 mm nonobstructing calculus in the interpolar left kidney. Small cyst of the superior pole left kidney. There are a few nonobstructing calculi right kidney measuring up to 3-4 mm. No hydronephrosis. Decompressed urinary bladder. Hysterectomy. Atherosclerosis of the abdominal aorta with fusiform infrarenal dilation measuring 3.0 x 2.7 cm. No lymphadenopathy. Small hiatal hernia. There is no bowel obstruction or bowel wall thickening. Extensive colonic diverticulosis without acute diverticulitis. No ascites or mesenteric inflammation. Appendix not seen. Unremarkable soft tissues. Mild L1 compression deformity, likely chronic. IMPRESSION: 1. Nonobstructing bilateral nephrolithiasis. No ureteral calculi or hydronephrosis. 2. Colonic diverticulosis without acute diverticulitis. 3. 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 4. Small hiatal hernia. ACT 112: Negative or not required by law. The above report was generated using voice recognition software. It may contain grammatical, syntax or spelling errors. Electronically signed by: Gabe Berg M.D. 08/31/2024 2:[address] 08/31/24 14:23 CT head/brain wo con CLINICAL HISTORY: 83 years-old Female with headache. Acute headache TECHNIQUE: Multiple axial CT images of the head were obtained without contrast. A dose lowering technique was utilized adhering to the principles of ALARA. CT DOSE: 2155.48 mGy.cm COMPARISON: 06/09/2021 FINDINGS: No acute intracranial hemorrhage, midline shift, intracranial mass, h ydrocephalus, territorial ischemia or abnormal extra-axial collection. Involutional changes with chronic microvascular ischemic disease. Chronic calcifications of the lentiform and dentate nuclei. Chronic right cerebellar infarct. The calvarium is intact. The paranasal sinuses, mastoid air cells, and middle ear cavities are clear. IMPRESSION: No acute intracranial abnormality. ACT 112: Negative or not required by law. The above report was generated using voice recognition software. It may contain grammatical, syntax or spelling errors. Electronically signed by: Gabe Berg M.D. 08/31/2024 2:43 PM Medications Administered Discontinued Medications Ceftriaxone Sodium (Rocephin) 2,000 mg in 50 mls @ 100 mls/hr IV NOW STA Stop: 08/31/24 16:09 Last Infusion: 08/31/24 16:27 Dose: Infused Documented By: Admin: 08/31/24 15:49 Dose: 100 mls/hr Documented By: CEF Ioversol (Optiray 320 100ml) 94 ml IV ONCE ONE Stop: 08/31/24 14:28 Last Admin: 08/31/24 14:27 Dose: 94 ml Documented By: CLAUDIA (3) Diabetes mellitus, type II Diabetes mellitus complication detail: with unspecified neuropathy Diabetes mellitus complication status: with neurologic complications Diabetes mellitus long term care pharmacist insulin use: with long term care pharmacist use Qualified Code(s): E11.40 - Type 2 diabetes mellitus with diabetic neuropathy, unspecified; 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
[2024-08-31] MEDS ORDERED: DEXTROSE 50% 50 ML SYRINGE IV PRN (17:43)
[2024-08-31] MEDS ORDERED: CARBOHYDRATES FOR HYPOGLYCEMIA PO PRN (17:43)
[2024-08-31] MEDS ORDERED: GLUCOSE 40% GEL 15 GM TUBE PO PRN (17:43)
[2024-08-31] MEDS ORDERED: GLUCOSE 10 TAB/TUBE PO PRN (17:43)
[2024-08-31] MEDS ORDERED: GLUCAGON FOR INJ 1 MG VIAL SQ PRN (17:43)
--- OUTSIDE RECORDS SUMMARY | 2024-08-31 18:19 | External Medical Summary | Summary of Care ---
Author Name Unknown Organization [facility] Address [address] [place] [address] Phone [phone] Care Team Providers Care Support Associate Name Role Phone Case House MD Primary Care Provider [phone] Encounter Details Date Type Department Care Team (Late st Contact Info) Description 07/29/2024 Population Health External Data Unspecified Department Allergies Active Allergy Reactions Criticality Noted Date Comments Ciprofloxacin 05/27/2022 tendonitis Oxycodone Other (Please comment) 01/29/2016 Mental problems, confusion Other reaction(s): SEDATION Tramadol 10/28/2023 Difficult to arouse after taking medication documented as of this encounter (statuses as of 07/29/2024) Medications COENZYME Q-10 100 MG PO CAPS 1 CAPSULE DAILY 3 Active RELION ULTIMA GLUCOSE SYSTEM W/DEVICE KIT Use as directed to monitor blood sugar Active Valerian Root 100 MG CAPS Take 1 Tab by mouth once. 1 Cap 0 6 Active Vitamin B-12 500 MCG Oral Tablet (vitamin B-12) Take 1 Tablet by mouth in the morning and 1 Tablet at noon and 1 Tablet before bedtime. Active Vitamin B Complex Oral Tablet 1 tab, Tab, Oral, Daily, 30 tab, 0 Refill(s) 1 Active Fish Oil 1000 MG Oral Capsule Take 1 Capsule by mouth in the morning. Active Magnesium 250 MG Oral Tablet Take 1 Tablet by mouth in the morning. Active Excedrin Extra Strength 250-250-65 MG Oral Tablet (Aspirin-Acetamin ophen-Caffeine) Take 1 Tablet by mouth every 6 hours as needed. Active FreeStyle Zabrina 2 Sensor Use as directed. Freestyle Zabrina 2 supplied by [employer] Active Lidocaine 4 % External Patch (Aspercreme) Place 1 Patch over 12 hours topically on the skin daily. 30 Patch 11 3 Active Triamcinolone Acetonide 0.1 % External Cream (Aristocort) Apply topically to affected area 2 times a day. To affected area. 80 g 5 3 Active Additional Information Patient not taking.Reported on 07/08/2024 BD Pen Needle Kaci 2nd Gen 32G X 4 MM (Insulin Pen Needle)Indication s:Type 2 diabetes mellitus with hemoglobin A1c goal of less than 8.0% (HCC) Use to inject insulin once daily. 100 Each 3 3 Active DuoDERM CGF Dressing External Apply 1 Each topically to affected area in the morning. 20 Each 3 4 Active Additional Information Patient not taking.Reported on 07/08/2024 metFORMIN HCl ER 750 MG Oral Tablet Extended Release 24 Hour (Glucophage XR)Indications:Ty pe 2 diabetes mellitus with stage 3a chronic kidney disease, without long-term current use of insulin (HCC) TAKE 1 TABLET BY MOUTH IN THE MORNING AND 1 TAB AT BEDTIME 180 Tablet 3 4 Active Omeprazole 20 MG Oral Capsule Delayed Release (PriLOSEC)Indicat ions:Gastroesopha geal reflux disease without esophagitis TAKE 1 CAPSULE BY MOUTH BEFORE BREAKFAST 90 Capsule 3 4 Active Shingrix 50 MCG/0.5ML Intramuscular Suspension Reconstituted (Zoster Vac Recomb Adjuvanted)Indica tions:Type 2 diabetes mellitus with hemoglobin A1c goal of less than 8.0% (HCC),Need for vaccination for zoster Inject 0.5 mL into a large muscle now and repeat dose in 60 to 180 days 1 Each 1 4 Active Additional Information Patient not taking.Reported on 07/08/2024 Ozempic (2 MG/DOSE) 8 MG/3ML Subcutaneous Solution Pen-injector (Semaglutide (2 MG/DOSE))Indicati ons:Type 2 diabetes mellitus with hemoglobin A1c goal of less than 8.0% (HCC) Inject 2 mg once weekly- this replaces trulicity 9 mL 4 4 Active Nystatin 509747 UNIT/GM External Powder (Nystop) Apply topically to affected area daily. Apply to groin area as needed. 15 g 5 4 Active Jardiance 10 MG Oral Tablet (Empagliflozin) TAKE 1 TABLET BY MOUTH ONCE DAILY IN THE MORNING 90 Tablet 1 4 Active Atorvastatin Calcium 40 MG Oral Tablet (Lipitor)Indicati ons:Dyslipidemia, goal LDL below 100 TAKE 1 TABLET BY MOUTH ONCE DAILY AT BEDTIME 90 Tablet 1 4 Active Dicyclomine HCl 10 MG Oral Capsule (Bentyl)Indicatio ns:Diverticulosis of large intestine without hemorrhage TAKE 1 CAPSULE BY MOUTH 4 TIMES DAILY NEEDED FOR ABDOMINAL PAIN 120 Capsule 5 4 Active Insulin Glargine Solostar 100 UNIT/ML Subcutaneous Solution Pen-injector (Lantus SoloStar)Indicati ons:Type 2 diabetes mellitus with hemoglobin A1c goal of less than 8.0% ([facility]) Inject 36 Units under the skin at bedtime. Formulary change- replacing Semglee Do not start before July 07, 2024. 45 mL 4 5 Active predniSONE 10 MG Oral Tablet (Deltasone)Indica tions:Right foot pain Take 5 tabs for 2 days, 4 tabs for 2 days, 3 tabs for 2 days, 2 tabs for 2 days 1 tab for 2 days 30 Tablet 5 Active hydroCHLOROthiazi de 25 MG Oral Tablet (Hydrodiuril) Take 1 tablet by mouth once daily 30 Tablet 5 5 Active Pregabalin 150 MG Oral Capsule (Lyrica) TAKE 1 CAPSULE BY MOUTH THREE TIMES DAILY 90 Capsule 5 Active LORazepam 0.5 MG Oral Tablet (Ativan)Indicatio ns:Anxiety state TAKE 1 TABLET BY MOUTH THREE TIMES DAILY NEEDED FOR ANXIETY 90 Tablet 5 Active documented as of this encounter (statuses as of 07/29/2024) Active Problems Problem Noted Date Diagnosed Date Abdominal aortic aneurysm (AAA) without rupture 11/18/2022 Controlled substance agreement signed 11/07/2021 Hypertensive kidney disease with stage 3b chronic kidney disease 06/18/2021 Overview: Per CKD protocol Type 2 diabetes mellitus wit h stage 3b chronic kidney disease 06/18/2021 Overview: Per CKD protocol Thrombosis of left jugular vein 04/12/2021 Chronic diastolic heart failure 12/13/2020 Gastroesophageal reflux disease without esophagi tis 07/12/2019 Old AL (myocardial infarction) 07/12/2019 Type 2 diabetes mellitus with polyneuropathy 08/2018 Prolapse of vaginal vault after hysterectomy Rectocele 03/20/2018 Nephrolithiasis 05/23/2017 Primary osteoarthritis involving multiple joints 09/26/2016 HTN, goal below 150/90 11/23/2015 LVH (left ventricular hypertrophy) 10/05/2015 Diastolic dysfunction 10/05/2015 Anxiety state 08/02/2014 Vitamin D deficiency 09/30/2011 Rosacea 09/28/2007 Type 2 diabetes mellitus wit h hemoglobin A1c goal of less than 8.0% Overview (11/02/2015): ICD-10 update of inactive term Dyslipidemia, goal LDL below 70 documented as of this encounter (statuses as of 07/29/2024) Resolved Problems Problem Noted Date Diagnosed Date Resolved Date Type 2 diabetes mellitus wit h stage 3b chronic kidney disease, without long-term current use of insulin 08/08/2023 08/21/2023 Stage 3a chronic kidney disease 10/07/2022 10/17/2022 Aneurysm of aorta 06/14/2022 11/18/2022 Overview (06/14/2022): 3.1 cm AAA noted on CT abd/pel 05/23/22 Type 2 diabetes mellitus wit h stage 3a chronic kidney disease, without long-term current use of insulin 12/31/2021 01/17/2022 Chronic kidney disease, stage 3b 06/18/2021 03/18/2023 Overview: Per CKD protocol Type 2 diabetes mellitus wit h stage 3a chronic kidney disease 11/14/2020 06/21/2021 Overview: Per CKD protocol Chronic kidney disease, stage 3a 11/14/2020 06/21/2021 Overview: Per CKD protocol Hypertensive kidney disease with stage 3a chronic kidney disease 05/15/2020 06/21/2021 Overview: Per CKD protocol Type 2 diabetes mellitus with polyneuropathy 0 10/07/2022 Dementia without behavioral disturbance 07/12/2019 11/18/2022 Diabetes mellitus with stage 3 chronic kidney disease 12/14/2018 11/16/2020 Overview: Per CKD protocol Hypertensive kidney disease with chronic kidney disease stage III 10/06/2018 05/18/2020 Overview: Per CKD protocol Advanced directives, counseling/discussion 08/21/2018 01/08/2019 Overview (01/16/2016): Do you have an Advance Directive for Health Care? no Kidney disease, chronic, sta ge III (GFR 30-59 ml/min) 08/17/2018 10/14/2018 Overview: Per CKD protocol #1 Constipation 03/31/2017 09/30/2017 Dysuria 12/18/2016 03/31/2017 Urinary frequency 12/18/2016 03/31/2017 Open wound of finger of left hand 10/23/2016 03/31/2017 Obesity, Class I, BMI 30.0-3 4.9 (see actual BMI) 09/26/2016 03/31/2017 Overview (09/26/2016): bmi= 33.13 09/26/16 Diverticulitis of colon 01/29/201609/05 Lower GI bleed 01/29/2016 09/26/2016 Abnormal electrocardiogram 09/27/2015 0 12/04/2017 Obesity, Class II, BMI 35-39 .9, isolated (see actual BMI) 03/28/2015 11/18/2022 Overview (03/28/2015): bmi= 36.27 03/28/15 Need for pneumococcal vaccination 03/28/2015 09/26/2016 HTN, goal below 140/90 10/05/201411/22 Viral stomatitis 08/02/2014 09/26/2016 Burning tongue syndrome 08/02/201409/05 Shortness of breath 05/12/2014 09/27/19 17 Elevated blood pressure, situational 05/12/2014 09/13/2014 Diarrhea 05/12/2014 09/26/2016 Severe obesity with body mas s index (BMI) of 35.0 to 39.9 with serious comorbidity 04/13/2014 Overview (04/22/2018): bmi= 36.76 04/13/14 ICD-10 update of inactive diagnosis Urine malodor 04/13/2014 09/26/2016 Intertrigo 10/18/2013 03/31/2017 Severe obesity with body mas s index (BMI) of 35.0 to 39.9 with serious comorbidity 09/06/2013 Overview (04/22/2018): bmi= 36.48 09/06/13 ICD-10 update of inactive diagnosis HTN, goal below 140/80 09/06/201310/05 Menopause 04/16/2013 12/04/2017 Obesity, Class I, BMI 30.0-3 4.9 (see actual BMI) 11/02/2012 09/26/2016 Overview (11/02/2012): bmi= 34.07 11/02/12 Sleep disturbance 11/02/2012 09/26/2016 Foot pain 11/02/2012 09/26/2016 Obesity, Class I, BMI 30.0-3 4.9 (see actual BMI) 04/02/2012 09/26/2016 Overview (04/02/2012): BMI= 33.81 04/02/12 Need for shingles vaccine 04/02/2012 Cerebral atherosclerosis 04/02/201212/2019 Other screening mammogram 04/02/2012 HTN, goal below 140/80 02/24/201209/06 Overview: Per HTN Protocol #27. Obesity, Class I, BMI 30.0-3 4.9 (see actual BMI) 09/30/2011 09/26/2016 Overview (09/30/2011): bmi= 34.84 09/30/11 DM type 2 causing neurological disease 09/30/2011 11/02/2012 Generalized osteoarthritis 09/30/2011 0 09/26/2016 Routine medical exam 09/30/2011 017 Sore nose 07/15/2011 09/26/2016 Neuropathic pain syndrome (non-herpetic) 07/15/2011 09/26/2016 DM type 2 causing neurologic al disease, not at goal 04/01/2011 09/30/2011 OBESITY, BMI= 34.42 02/18/11 02/18/2011 09/26/2016 Pain in joint involving lower leg 02/04/2011 09/26/2016 Sprain of medial collateral ligament of knee 1 04/13/2014 Vertigo 11/15/2010 04/13/2014 Orthostatic hypotension 11/15/201002/2014 Type 2 diabetes mellitus wit h hemoglobin A1c goal of less than 7.0% 11/15/2010 09/30/2011 Overview (10/31/2015): ICD-10 update of inactive term Vitamin D deficiency 02/14/2010 012 Diabetic polyneuropathy 02/14/201009/05 Overview (09/22/2015): ICD-10 update of inactive term OBESITY, BMI 30-34 (SEE ACTUAL BMI) 09/28/2009 09/26/2016 Overview (09/28/2009): Per Obesity Taxonomy Overweight (BMI 25.0-29.9) 09/26/2009 1 Dyslipidemia, goal LDL below 100 06/20/2009 09/30/2011 Overview (06/20/2009): Per Lipid Taxonomy. HTN, goal below 130/80 05/24/200902/26 Headache 05/08/2009 04/13/2014 Overview (09/27/2015): ICD-10 update of inactive term DM type 2, not at goal 02/20/200904/01 HYPERGLYCEMIA 02/15/2009 03/29/2009 Abnormal results of liver function studies 11/24/2008 04/13/2014 Cerebrovascular disease, art eriosclerotic, post-stroke 10/18/2008 04/02/2012 Overview (10/20/2008): Modified per CVA protocol #8 Routine medical exam 07/26/2008 014 Special screening for malign ant neoplasms, colon 07/26/2008 11/17/2008 Overview (11/17/2008): Resolved per Screening Diagnosis Protocol #6 Other chronic allergic conjunctivitis 01/19/2008 04/13/2014 Other atopic dermatitis 01/19/200809/05 Overview (04/29/2017): ICD-10 update of inactive term Seborrheic dermatitis 09/28/20072016 Overview (04/07/2017): ICD-10 update of inactive term Adjustment disorder with depressed mood 07/30/2007 09/30/2011 Malaise and fatigue 07/30/2007 04/13/20 14 Cerebrovascular event, ill-d efined, within last 8 weeks 07/30/2007 10/20/2008 Overview (10/20/2008): Modified per CVA protocol #8 Diverticulosis of colon 02/2014 Internal hemorrhoids 014 Benign neoplasm of colon 02/2014 HTN, goal below 140/90 09/26 Esophageal reflux 04/13/2014 Diverticulosis of colon 11/2008 Overview (08/11/2008): Resolved per Duplicate Protocol #2. Dyslipidemia, goal to be determined 06/20/2009 Overview (06/20/2009): Per Lipid Taxonomy. Allergic rhinitis 04/13/2014 Aortic aneurysm 11/24/2008 Generalized osteoarthritis 0 09/30/2011 Overview (07/30/2007): krystyna back-- uses chiropracter Calculus of ureter 4 Postmenopausal atrophic vaginitis 04/13/2014 Obesity, BMI not known 09/28 Overview (09/28/2009): Per Obesity Taxonomy Type 1 diabetes mellitus wit h hemoglobin A1c goal of 7.0%-8.0% 04/16/2013 Overview (11/07/2015): ICD-10 update of inactive term documented as of this encounter (statuses as of 07/29/2024) Immunizations Name Administration Dates Next Due COVID-19 mRNA, LNP-s, No Pre serve, 2-Dose Series (Tank Top TV) 10/17/2020,09/19/2020 Covid-19, Mrna, Lnp-s, Pf, B ivalent, 30 Mcg, IM, 12 yrs and above (Pfizer) 06/04/2022 Pneumococcal Conjugate Vacc, 13 Valent (Prevnar) 03/28/2015 Pneumococcal Polysaccharide PPV23 (Pneumovax) 07/30/2007 RSV Vac., Bivalent, Perfusio n F, Pf,0.5 Ml (Abrysvo) 10/15/2023 Seasonal Influenza Vac., MDV , IM, 0.5 mL (Fluzone) 04/13/2014,04/16/2013,04/01/2011,04/03,03/29/2009,07/26/2008,07/30/2007 Seasonal Influenza, High Dos e, Trivalent, PF, IM (Fluzone HD) 04/02/2024 Seasonal Influenza, PF, 6 M & above, IM , (FluLaval or Fluzone) 03/30/2020,03/17/2019,04/08/2018,03/31 Seasonal Influenza, Quadriva lent Hd (Fluzone Hd) 03/18/2023,04/19/2022,04/03/2021 Seasonal Influenza, Quadriva lent, No Preserve, IM 03/29/2016,05/12/2015 TD, Preservative Free 03/15/2008 TDAP (age 10 and older)(Boostrix) 03/25/2023 Zoster Vaccine Recombinant (Shingrix) 12/20/2023 ,10/15/2023 documented as of this encounter Social History Tobacco Use Types Packs/Day Years Used Date Smoking Tobacco: Former Cigarettes 1 22 0 07/07/1965 - 07/07/1987 Passive Smoke Exposure: Past Smokeless Tobacco: Never Alcohol Use Standard Drinks/Week Comments No 0 (1 standard drink = 0.6 oz pur e alcohol) PHQ-2 Answer Date Recorded PHQ Adult Total Score 0 04/25/2022 Hunger Vital Sign Answer Date Recorded Within the past 12 months, y ou worried that your food would run out before you got the money to buy more. Never true 11/19/19 Within the past 12 months, t he food you bought just didn't last and you didn't have money to get more. Never true 11/18/2022 Comments No Sex and Gender Information Value Date Recorded Sex Assigned at Female 02/26/2019 9:45 AM EDT Legal Sex Female 6:10 AM EST Gender Identity Female 02/26/2019 9:45 AM EDT Sexual Orientation Not on file documented as of this encounter Plan of Treatment Upcoming Encounters Date Type Department Care Team ([facility] st Contact Info) Description 09/09/2024 1:20 PM EST Office Visit Dermatology [facility] [address] [place] [address] Ran Millan PA-C [address] [place] [address] 09/30/2024 1:00 PM EDT Office Visit Pharmacy, [facility] [address] [phone] [facility] [address] [place] [phone] 10/12/2024 1:40 PM EDT Office Visit Podiatry [facility] [address] [place] [phone] Danielle Burns DPM [address] [place] [phone] 11/25/2024 2:20 PM EDT Office Visit [facility], [place] [address] [place] [phone] Case House MD [address] [phone] Scheduled Procedures Name Priority Associated Diagnoses Date/Ti me INJECTION SPINE LUMBAR OR SACRAL Lumbar radiculopathy Health Maintenance Due Date Last Done Comments Adult Wellness Visit 02/27/2020 02/26/2019 Depression Screening 04/25/2023 04/25/2022, 09/30/2017, 09/13/2014 (Discussed) CKD PHOS USE SMARTSET 01527 11/19/202311/04, 03/13/2021, 01/30/2021, Additional history exists Diabetic Eye Exam 01/10/2024 01/09/2023, , 12/31/2019, Additional history exists COVID-19 Vaccine ( season) 2024 06/04/2022, 10/17/2020, 09/19/2020 CKD HGB USE SMARTSET 70877 04/25/202404/25, 06/18/2022, 06/11/2022, Additional history exists Diabetic Foot Exam 08/08/2024 08/08/2023, 1 07/16/2019, 04/08/2018, Additional history exists Albumin/Creatinine Ratio 09/04/20242 024, 08/12/2022, 04/25/2022, Additional history exists GFR 01/05/2025 07/08/2024, 05/07, 09/05/2023, Additional history exists HbA1c 01/05/2025 07/08/2024, 05/07, 09/05/2023, Additional history exists Mammogram 05/19/2025 05/19/2024, 03/07, 08/24/2021, Additional history exists B-12 05/25/2025 05/25/2024, 02/12/2022, 01/30/2021, Additional history exists DXA Scan 07/23/2025 07/23/2022, 07/07, 03/17/2019, Additional history exists DTap/Tdap Vaccines (2 - Td or Tdap) 03/25/2033 03/25/2023, 03/15/2008 Pneumococcal Vaccine: 50+ Years Completed 03/28/2015, 07/30/2007 Zoster Vaccines Completed 12/20/2023, 10/15/2023 Influenza Vaccine (FLU shot) Completed , 03/18/2023, 04/19/2022, Additional history exists HPV (Gardasil) Vaccine Aged Out No lo nger eligible based on patient's age to complete this topic Hepatitis B Vaccine Aged Out No longe r eligible based on patient's age to complete this topic MENINGOCOCCAL (MENACTRA/MENVEO) Aged Out No longer eligible based on patient's age to complete this topic documented as of this encounter Medical Devices Not on filedocumented as of this encounter Advance Directives * Full Code (Latest Code Status on File) Date Activated Date Inactivated Comments 08/15/2017 6:54 AM 08/15/2017 2:42 PM This order ref lects the patients wishes and were consensually agreed upon. * Full Code Date Activated Date Inactivated Comments 08/01/2017 8:46 AM 08/01/2017 5:37 PM This order r eflects the patients wishes and were consensually agreed upon. Care Teams Support Associate Relationship Specialty Start Date End Date Case House MD [address] [place] [id number] PCP - General Family Medicine 07/08/24 documented as of this encounter
--- OUTSIDE RECORDS SUMMARY | 2024-08-31 18:19 | External Medical Summary | Summary of Care ---
Author Name Unknown Organization [facility] Address [address] [place] [address] Phone [phone] Care Team Providers Care Inspector [employer] Name Role Phone Lloyd Villa MD Primary Care Provider [phone]- [phone] Reason for Visit * Reason Comments eRx-Medication Refill Encounter Details Date Type Department Care Team (Late st Contact Info) Description 08/16/2024 Refill [facility] [address] [facility] [place] [address] Lloyd Villa MD [address] [place] [address] Allergies Active Allergy Reactions Criticality Noted Date Comments Ciprofloxacin 05/27/2022 tendonitis Oxycodone Other (Please comment) 01/29/2016 Mental problems, confusion Other reaction(s): SEDATION Tramadol 10/28/2023 Difficult to arouse after taking medication documented as of this encounter (statuses as of 08/18/2024) Medications COENZYME Q-10 100 MG PO CAPS 1 CAPSULE DAILY 10/13/19 13 Active RELION ULTIMA GLUCOSE SYSTEM W/DEVICE KIT Use as directed to monitor blood sugar Active Valerian Root 100 MG CAPS Take 1 Tab by mouth once. 1 Cap 0 09/27/19 16 Active Vitamin B-12 500 MCG Oral Tablet (vitamin B-12) Take 1 Tablet by mouth in the morning and 1 Tablet at noon and 1 Tablet before bedtime. Active Vitamin B Complex Oral Tablet 1 tab, Tab, Oral, Daily, 30 tab, 0 Refill(s) 03/09/20 21 Active Fish Oil 1000 MG Oral Capsule Take 1 Capsule by mouth in the morning. Active Magnesium 250 MG Oral Tablet Take 1 Tablet by mouth in the morning. Active Excedrin Extra Strength 250-250-65 MG Oral Tablet (Aspirin-Acetami nophen-Caffeine) Take 1 Tablet by mouth every 6 hours as needed. Active FreeStyle Zabrina 2 Sensor Use as directed. Freestyle Zabrina 2 supplied by [employer] Active Lidocaine 4 % External Patch (Aspercreme) Place 1 Patch over 12 hours topically on the skin daily. 30 Patch 11 04/22/20 23 Active Triamcinolone Acetonide 0.1 % External Cream (Aristocort) Apply topically to affected area 2 times a day. To affected area. 80 g 5 04/24/20 23 Active Additional Information Patient not taking.Reported on 07/08/2024 BD Pen Needle Kaci 2nd Gen 32G X 4 MM (Insulin Pen Needle)Indicatio ns:Type 2 diabetes mellitus with hemoglobin A1c goal of less than 8.0% (HCC) Use to inject insulin once daily. 100 Each 3 06/26/20 23 Active DuoDERM CGF Dressing External Apply 1 Each topically to affected area in the morning. 20 Each 3 08/08/19 24 Active Additional Information Patient not taking.Reported on 07/08/2024 metFORMIN HCl ER 750 MG Oral Tablet Extended Release 24 Hour (Glucophage XR)Indications:T ype 2 diabetes mellitus with stage 3a chronic kidney disease, without long-term current use of insulin (HCC) TAKE 1 TABLET BY MOUTH IN THE MORNING AND 1 TAB AT BEDTIME 180 Tablet 3 09/16/19 24 Active Omeprazole 20 MG Oral Capsule Delayed Release (PriLOSEC)Indica tions:Gastroesop hageal reflux disease without esophagitis TAKE 1 CAPSULE BY MOUTH BEFORE BREAKFAST 90 Capsule 3 09/26/19 24 Active Shingrix 50 MCG/0.5ML Intramuscular Suspension Reconstituted (Zoster Vac Recomb Adjuvanted)Indic ations:Type 2 diabetes mellitus with hemoglobin A1c goal of less than 8.0% (HCC),Need for vaccination for zoster Inject 0.5 mL into a large muscle now and repeat dose in 60 to 180 days 1 Each 09/26/19 24 Active Additional Information Patient not taking.Reported on 07/08/2024 Ozempic (2 MG/DOSE) 8 MG/3ML Subcutaneous Solution Pen-injector (Semaglutide (2 MG/DOSE))Indicat ions:Type 2 diabetes mellitus with hemoglobin A1c goal of less than 8.0% (HCC) Inject 2 mg once weekly- this replaces trulicity 9 mL 4 12/30/19 24 Active Nystatin 976656 UNIT/GM External Powder (Nystop) Apply topically to affected area daily. Apply to groin area as needed. 15 g 5 04/02/20 24 Active Jardiance 10 MG Oral Tablet (Empagliflozin) TAKE 1 TABLET BY MOUTH ONCE DAILY IN THE MORNING 90 Tablet 1 04/26/20 24 Active Atorvastatin Calcium 40 MG Oral Tablet (Lipitor)Indicat ions:Dyslipidemi a, goal LDL below 100 TAKE 1 TABLET BY MOUTH ONCE DAILY AT BEDTIME 90 Tablet 1 04/26/20 24 Active Dicyclomine HCl 10 MG Oral Capsule (Bentyl)Indicati ons:Diverticulos is of large intestine without hemorrhage TAKE 1 CAPSULE BY MOUTH 4 TIMES DAILY NEEDED FOR ABDOMINAL PAIN 120 Capsule 5 05/11/20 24 Active Insulin Glargine Solostar 100 UNIT/ML Subcutaneous Solution Pen-injector (Lantus SoloStar)Indicat ions:Type 2 diabetes mellitus with hemoglobin A1c goal of less than 8.0% (HCC) Inject 36 Units under the skin at bedtime. Formulary change- replacing Semglee Do not start before July 07, 2024. 45 mL 4 07/07/19 25 Active predniSONE 10 MG Oral Tablet (Deltasone)Indic ations:Right foot pain Take 5 tabs for 2 days, 4 tabs for 2 days, 3 tabs for 2 days, 2 tabs for 2 days 1 tab for 2 days 30 Tablet 07/08/19 25 Active hydroCHLOROthiaz river 25 MG Oral Tablet (Hydrodiuril) Take 1 tablet by mouth once daily 30 Tablet 5 07/19/19 25 Active LORazepam 0.5 MG Oral Tablet (Ativan)Indicati ons:Anxiety state TAKE 1 TABLET BY MOUTH THREE TIMES DAILY NEEDED FOR ANXIETY 90 Tablet 07/26/19 25 Active Pregabalin 150 MG Oral Capsule (Lyrica) TAKE 1 CAPSULE BY MOUTH THREE TIMES DAILY 90 Capsule 08/17/19 25 Active Pregabalin 150 MG Oral Capsule (Lyrica) TAKE 1 CAPSULE BY MOUTH THREE TIMES DAILY 90 Capsule 07/20/19 25 2024 Discontinued documented as of this encounter (statuses as of 08/18/2024) Active Problems Problem Noted Date Diagnosed Date [...] reflux disease without esophagi tis 07/12/2019 Old [place] (myocardial infarction) 07/12/2019 Type 2 diabetes mellitus [...] as of this encounter (statuses as of 08/18/2024) Resolved Problems Problem Noted Date Diagnosed Date [...] (09/26/2016): bmi= 33.13 09/26/16 Diverticulitis of colon 01/29/2016 0309/2016 Lower GI bleed 01/29/2016 09/26/2016 Abnormal electrocardiogram [...] 1 04/13/2014 Vertigo 11/15/2010 04/13/2014 Orthostatic hypotension 11/15/2010 1002/2014 Type 2 diabetes mellitus wit h hemoglobin [...] as of this encounter (statuses as of 08/18/2024) Immunizations Name Administration Dates Next Due COVID-19 mRNA, LNP-s, No Pre serve, 2-Dose Series ([employer]) 10/17/2020,09/19/2020 Covid-19, Mrna, Lnp-s, Pf, B ivalent, [...] money to buy more. Never true 11/19/19 23 Within the past 12 months, t he [...] on file documented as of this encounter Miscellaneous Notes * Telephone Encounter - Lloyd Villa MD - 08/17/2024 7:41 PM ESTSigned Prescriptions: Disp Refills Pregabalin 150 MG Oral Capsule (Lyrica) 90 Cap*0 Sig: TAKE 1 CAPSULE BY MOUTH THREE TIMES DAILYAuthorizing Provider: LLOYD VILLA * Telephone Encounter - Indira Hu [facility] - 08/17/2024 10:43 AM EST Pending Prescriptions: Disp Refills Pregabalin 150 MG Oral Capsule 90 Cap*0 Sig: TAKE 1 CAPSULE BY MOUTH THREE TIMES DAILY * Telephone Encounter - Indira Hu [facility] - 08/17/2024 10:41 AM EST I have reviewed the patients controlled substance dispensing history in the Prescription Drug Monitoring Program in compliance with the [facility] regulations before prescribing a controlled substance. PDMP checked on 08/17/2024. Pending Prescriptions: Disp Refills Pregabalin 150 MG Oral Capsule (Lyrica) [*90 Cap*0 Sig: TAKE 1 CAPSULE BY MOUTH THREE TIMES DAILY Last Visit: Visit date not found (in office), Visit date not found (telemedicine) Next Visit: 11/25/2024 Date medication was last filled: 07/22/24 Date medication is due for refill: 08/20/24 Pharmacy: [facility] [id number] [facility] Is this request for a controlled substance? Yes and Urine Drug Screen Not completed Toxicology results: No results found. However, due to the size of the patient record, not all encounters were searched.Please check Results Review for a complete set of results. Please approve if appropriate. Thank You Indira Hu, PharmD Clinical Pharmacist [facility] ([facility]) [phone] / [phone] 08/17/2024, 10:42 AM documented in this encounter Plan of Treatment Upcoming Encounters Date Type Department Care Team (Latest Contact Info) Description 09/09/2024 1:20 PM EST Office Visit [address] [place] [phone] Ran Millan PA-C [address] [place] [address] 09/30/2024 1:00 PM EDT Office Visit Pharmacy, [facility]enna [facility] [address] [facility] [address] [place] [phone] [address] [place] [address] 10/12/2024 1:40 PM EDT Office Visit Podiatry [facility] [address] [place] [phone] Danielle Burns DPM [address] [place] [address] 10/13/2024 10:23 AM EDT Hospital Encounter [facility], Operating Room [facility] [address] [place] [phone] Phi Beckwith, DO [address] [place] [address] 10/13/2024 10:23 AM EDT - 10/13/2024 10:42 AM EDT Surgery OR [facility], Operating Room [facility] [address] [place] [phone] Phi Beckwith, DO [address] [place] [phone] INJECTION SPINE LUMBAR OR SACRAL 11/25/2024 2:20 PM EDT Office Visit Family [facility] [place] [address] [place] [phone] Lloyd Villa MD [address] [place] [address] Scheduled Procedures Name Priority Associated Diagnoses Date/Ti me INJECTION SPINE LUMBAR OR SACRAL Lumbar radiculopathy 10/13/2024 10:23 AM EDT Health Maintenance Due Date Last Done Comments Adult Wellness Visit 02/27/2020 02/26/2019 Depression Screening 04/25/2023 04/25/2022, 09/30/2017, 09/13/2014 (Discussed) CKD PHOS USE SMARTSET 06323 11/19/202311/04, 03/13/2021, 01/30/2021, Additional history exists Diabetic Eye Exam 01/10/2024 01/09/2023, , 12/31/2019, Additional history exists COVID-19 Vaccine ( season) 2024 06/04/2022, 10/17/2020, 09/19/2020 CKD HGB USE SMARTSET 15368 04/25/202404/25, 06/18/2022, 06/11/2022, Additional history exists Diabetic Foot Exam 08/08/2024 08/08/2023, 1 07/16/2019, 04/08/2018, Additional history exists Albumin/Creatinine Ratio 09/04/202409/04/2 024, 08/12/2022, 04/25/2022, Additional history exists GFR 01/05/2025 07/08/2024, 05/07, 09/05/2023, Additional history exists HbA1c 01/05/2025 07/08/2024, 05/07, 09/05/2023, Additional history exists Mammogram 05/19/2025 05/19/2024, 03/07, 08/24/2021, Additional history exists B-12 05/25/2025 05/25/2024, 12/2022, 01/30/2021, Additional history exists DXA Scan 07/23/2025 [...] and were consensually agreed upon. Care Teams Inspector [employer] Relationship Specialty Start Date End Date Lloyd Villa MD [address] [address] PCP - General Family Medicine 07/08/24 documented as of this encounter
--- OUTSIDE RECORDS SUMMARY | 2024-08-31 18:20 | External Medical Summary | Summary of Care ---
Author Name Unknown Organization [facility] Address [address] [address] Phone [phone] Care Team Providers Care Civil Engineering Professor Name Role Phone Case House MD Primary Care Provider +1- [phone] Reason for Visit * Reason Onset Date Comments Test Results 07/10/2024 Encounter Details Date Type Department Care Team ([facility] Contact Info) Description 07/10/2024 Telephone Family [address] [phone] Kevon Boo PA-C [address] [place] [phone] Test Results Allergies Active Allergy Reactions Criticality Noted Date Comments Ciprofloxacin 05/27/2022 tendonitis Oxycodone Other (Please comment) 01/29/2016 Mental problems, confusion Other reaction(s): SEDATION Tramadol 10/28/2023 Difficult to arouse after taking medication documented as of this encounter (statuses as of 07/13/2024) Medications COENZYME Q-10 100 MG PO CAPS [...] as directed. Freestyle Zabrina 2 supplied by [employer] Active Lidocaine 4 % External Patch (Aspercreme) [...] Additional Information Patient not taking.Reported on 07/08/2024 hydroCHLOROthiazi de 25 MG Oral Tablet (Hydrodiuril) Take 1 tablet by mouth once daily 30 Tablet 5 4 Active Ozempic (2 MG/DOSE) 8 MG/3ML Subcutaneous Solution Pen-injector (Semaglutide (2 MG/DOSE))Indicati ons:Type 2 diabetes mellitus with hemoglobin A1c goal of less than 8.0% (HCC) Inject 2 mg once weekly- this replaces trulicity 9 mL 4 4 Active Nystatin 406013 UNIT/GM External Powder (Nystop) Apply topically to [...] ABDOMINAL PAIN 120 Capsule 5 4 Active LORazepam 0.5 MG Oral Tablet (Ativan)Indicatio ns:Anxiety state TAKE 1 TABLET BY MOUTH THREE TIMES DAILY NEEDED FOR ANXIETY 90 Tablet 4 Active Pregabalin 150 MG Oral Capsule (Lyrica) TAKE 1 CAPSULE BY MOUTH THREE TIMES DAILY 90 Capsule 4 Active Insulin Glargine Solostar 100 UNIT/ML [...] 1 tab for 2 days 30 Tablet 01/02/202 5 Active documented as of this encounter (statuses as of 07/13/2024) Active Problems Problem Noted Date Diagnosed Date [...] reflux disease without esophagi tis 07/12/[address] (myocardial infarction) 07/12/2019 Type 2 diabetes mellitus [...] as of this encounter (statuses as of 07/13/2024) Resolved Problems Problem Noted Date Diagnosed Date [...] as of this encounter (statuses as of 07/13/2024) Immunizations Name Administration Dates Next Due COVID-19 mRNA, LNP-s, No Pre serve, 2-Dose Series ([employer] 10/17/2020,09/19/2020 Covid-19, Mrna, Lnp-s, Pf, B ivalent, [...] encounter Miscellaneous Notes * Telephone Encounter - Charlene Adan LPN - 07/13/2024 10:56 AM EST Spoke with pt and gave message below. Pt verbalized understanding and had no further questions or concerns at this time. Pt has appt with podiatry today. * Telephone Encounter - Kevon Boo PA-C - 07/10/2024 2:14 PM EST Please notify patient that results of labs and foot xrays support diagnosis of gout, as clinically suspected. Xrays also show diffuse arthritis of the foot. Complete prednisone as prescribed. Follow up with Podiatry for routine foot care. Follow up with PCP office for persistent/recurrent symptoms.Limit dietary triggers for gout. Results for orders placed or performed in visit on 07/08/24 URIC ACID Result Value Ref Range Uric Acid 6.7 (H) 2.4 - 5.7 mg/dL XR FOOT 3 OR MORE VIEWS Narrative: EXAM XR FOOT 3 OR MORE VIEWS-07/08/2024 12:48 pm HISTORY Right foot pain, greatest at 1st MTP TECHNIQUE Three views of right foot COMPARISON 04/04/2014 FINDINGS Multifocal moderate DIP/PIP osteoarthritis. At least mild 1st MTP arthrosis. Bulky spurring at the medial aspect of the 1st IP joint. At least moderate midfoot arthrosis. Mild to moderate Achilles insertional enthesopathy. Small plantar calcaneal heel spur. Impression: IMPRESSION Bulky spurring at the hallux IP joint medially. Mild 1st MTP arthrosis. Moderate midfoot and scattered IP arthrosis. Plantar and retrocalcaneal spurring. documented in this encounter Plan of Treatment Upcoming Encounters Date Type Department Care Team (Late st Contact Info) Description 07/13/2024 1:40 PM EST Office Visit Podiatry [facility] [address] [facility] [place] [address] Danielle Burns DPM [address] [facility] [place] [address] 09/09/2024 1:20 PM EST Office Visit Dermatology [facility] [address] [place] [phone] Ran Millan PA-C [address] [place] [address] 09/30/2024 1:00 PM EDT Office Visit Pharmacy, [facility] Bond [address] [facility] [place] [phone] Glenna [facility] [address] [place], [place] [address] [address] 11/25/2024 2:20 PM EDT Office Visit [facility] [address] [phone] Case House MD [address] [place] [address] Health Maintenance Due Date Last Done Comments Adult Wellness Visit 02/27/2020 02/26/2019 Depression Screening 04/25/2023 04/25/2022, 09/30/2017, 09/13/2014 (Discussed) CKD PHOS USE SMARTSET 13611 11/19/202311/04, 03/13/2021, 01/30/2021, Additional history exists Diabetic Eye Exam 01/10/2024 01/09/2023, , 12/31/2019, Additional history exists COVID-19 Vaccine ( season) 2024 06/04/2022, 10/17/2020, 09/19/2020 CKD HGB USE SMARTSET 63256 04/25/202404/25, 06/18/2022, 06/11/2022, Additional history exists Diabetic [...] and were consensually agreed upon. Care Teams Civil Engineering Professor Relationship Specialty Start Date End Date Case House MD [address] [address] PCP - General Family Medicine 07/08/24 documented as of this encounter
--- OUTSIDE RECORDS SUMMARY | 2024-08-31 18:20 | External Medical Summary | Summary of Care ---
Author Name Unknown Organization [facility] Address [address] [address] Phone [phone] Care Team Providers Care Inside Sales Advisor Name Role Phone Case House MD Primary Care Provider +1- [phone] Reason for Referral * Precert (Within 10 days (routine)) - Authorized Specialty Diagnoses / Procedures Referred By Contac t Referred To Contact Pain Medicine Diagnoses Lumbar radicular pain History of lumbar laminectomy Procedures INJECT DX/THER SUBSTANCE INTERLAMINAR LUMBAR/SACRAL W IMAGE GUIDE Phi Beckwith DO [address] [place] [address] Phone: tel: fax: Referral ID Status Reason Start Date Expiration Date V isits Requested Visits Authorized [id number] Authorized 07/29/[id number] Reason for Visit * Reason Onset Date Comments Appointment 07/16/2024 Encounter Details Date Type Department Care Team (Late st Contact Info) Description 07/16/2024 Telephone [facility], [facility] [address] [place] [address] Phi Beckwith DO [address] [place] [phone] Appointment Allergies Active Allergy Reactions Criticality Noted Date Comments Ciprofloxacin 05/27/2022 tendonitis Oxycodone Other (Please comment) 01/29/2016 Mental problems, confusion Other reaction(s): SEDATION Tramadol 10/28/2023 Difficult to arouse after taking medication documented as of this encounter (statuses as of 07/22/2024) Medications COENZYME Q-10 100 MG PO CAPS [...] as directed. Freestyle Zabrina 2 supplied by [employer] Active Lidocaine 4 % External Patch (Aspercreme) [...] hemoglobin A1c goal of less than 8.0% ([facility]) Use to inject insulin once daily. 100 [...] trulicity 9 mL 4 4 Active Nystatin 179292 UNIT/GM External Powder (Nystop) Apply topically to [...] NEEDED FOR ANXIETY 90 Tablet 4 Active Insulin Glargine Solostar 100 UNIT/ML Subcutaneous Solution Pen-injector (Lantus SoloStar)Indicati ons:Type 2 diabetes mellitus with hemoglobin A1c goal of less than 8.0% ([facility]) Inject 36 Units under the skin at bedtime. Formulary change- replacing Semglee Do not start before July 07, 2024. 45 mL 4 5 Active predniSONE 10 MG Oral Tablet (Deltasone)Indica tions:Right foot pain Take 5 tabs for 2 days, 4 tabs for 2 days, 3 tabs for 2 days, 2 tabs for 2 days 1 tab for 2 days 30 Tablet 5 Active documented as of this encounter (statuses as of 07/22/2024) Active Problems Problem Noted Date Diagnosed Date [...] reflux disease without esophagi tis 07/12/2019 Old [place] (myocardial infarction) 07/12/2019 Type 2 diabetes mellitus [...] as of this encounter (statuses as of 07/22/2024) Resolved Problems Problem Noted Date Diagnosed Date [...] 04/13/2014 Vertigo 11/15/2010 04/13/2014 Orthostatic hypotension 11/15/2010 100 02/2014 Type 2 diabetes mellitus wit h hemoglobin [...] as of this encounter (statuses as of 07/22/2024) Immunizations Name Administration Dates Next Due COVID-19 mRNA, LNP-s, No Pre serve, 2-Dose Series ([employer]) 10/17/2020,09/19/2020 Covid-19, Mrna, Lnp-s, Pf, B ivalent, [...] encounter Miscellaneous Notes * Telephone Encounter - Phi Beckwith DO - 07/22/2024 11:55 AM EST I personally reviewed the record when ordering the repeat caudal JASE procedure. Hgb A1C was checked and appropriate. Hemoglobin AIC Results: Lab Results Component Value Date/Time HEMOGLOBIN A1C - [facility] 7.3 (H) 07/08/2024 12:48 PM HEMOGLOBIN A1C - [facility] 7.4 (H) 05/25/2024 12:15 PM HEMOGLOBIN A1C - [facility] 7.3 (H) 09/05/2023 10:00 AM HEMOGLOBIN A1C - [facility] 7.1 (H) 03/30/2020 01:28 PM HEMOGLOBIN A1C - [facility] 7.2 (H) 07/12/2019 11:38 AM HEMOGLOBIN A1C - [facility] 7.6 (H) 05/19/2019 02:22 PM There is not an allergy to dye, steroids or local anesthetics. The patient is is on anticoagulant or antiplatelet medications. Please provide the patient with written pre-procedural instructions: No NSAIDs x 3 days. No supplements x 3 days, includes fish oil in particular. 7 day hold for over the counter aspirin. This includes the patient's excedrin. Phi Beckwith DO [facility], [address] [place] [address] * Telephone Encounter - Marya Reyna OSA - 07/16/2024 10:09 AM EST Patient's spouse called with patient present to inquire about scheduling next procedure Patient can be reached at home number on file to further assist Thank you documented in this encounter Plan of Treatment Upcoming Encounters Date Type Department Care Team ([facility] st Contact Info) Description 09/09/2024 1:20 PM EST Office [address]at[address] [phone] aRn Millan PA-C [address] [place], [place] [address] [address] 09/30/2024 1:00 PM EDT Office [facility] [place] [phone] [address] [place] [address] 10/12/2024 1:40 PM EDT Office Visit Podiatry [facility] [address] [place] [phone] Danielle Burns, DPIhsan [address] [place] [address] 11/25/2024 2:20 PM EDT [facility] [place] [phone] Case House MD [address] [facility] [place] [address] Scheduled Orders Name Type Priority Associated Diagnoses Orde r Schedule INJECT DX/THER SUBSTANCE INTERLAMINAR LUMBAR/SACRAL W IMAGE GUIDE Procedures Routine Lumbar radicular pain History of lumbar laminectomy Expected: 07/29/2024, Expires: 10/20/2024 Scheduled Procedures Name Priority Associated Diagnoses Date/Ti me INJECTION SPINE LUMBAR OR SACRAL Lumbar radiculopathy Health Maintenance Due Date Last Done Comments Adult Wellness Visit 02/27/2020 02/26/2019 Depression Screening 04/25/2023 04/25/2022, 09/30/2017, 09/13/2014 (Discussed) CKD PHOS USE SMARTSET 68970 11/19/202311/04, 03/13/2021, 01/30/2021, Additional history exists Diabetic Eye Exam 01/10/2024 01/09/2023, , 12/31/2019, Additional history exists COVID-19 Vaccine ( season) 2024 06/04/2022, 10/17/2020, 09/19/2020 CKD HGB USE SMARTSET 36002 04/25/202404/25, 06/18/2022, 06/11/2022, Additional history exists Diabetic Foot Exam 08/08/2024 08/08/2023, 1 07/16/2019, 04/08/2018, Additional history exists Albumin/Creatinine Ratio 09/04/2024 024, 08/12/2022, 04/25/2022, Additional history exists GFR 01/05/2025 07/08/2024, 05/07, 09/05/2023, Additional history exists HbA1c 01/05/2025 07/08/2024, 05/07, 09/05/2023, Additional history exists Mammogram 05/19/2025 05/19/2024, 03/07, 08/24/2021, Additional history exists B-12 05/25/2025 05/25/2024, 02/0 12/2022, 01/30/2021, Additional history exists DXA Scan [...] Not on filedocumented as of this encounter Visit Diagnoses Diagnosis History of lumbar laminectomy- Primary Lumbar radicular pain Thoracic or lumbosacral neuritis or radiculitis, unspecified documented in this encounter Advance Directives * Full Code (Latest Code Status on File) Date Activated Date Inactivated Comments 08/15/2017 6:54 AM 08/15/2017 2:42 PM This order ref lects the patients wishes and were consensually agreed upon. * Full Code Date Activated Date Inactivated Comments 08/01/2017 8:46 AM 08/01/2017 5:37 PM This order r eflects the patients wishes and were consensually agreed upon. Care Teams Inside Sales Advisor Relationship Specialty Start Date End Date Case House MD [address] [place] [address] PCP - General Family Medicine 07/08/24 documented as of this encounter
--- OUTSIDE RECORDS SUMMARY | 2024-08-31 18:20 | External Medical Summary | Summary of Care ---
Author Name Unknown Organization [facility] Address [address] [address] Phone [phone] Care Team Providers Care Various Exceptionalities Teacher Name Role Phone Lloyd Villa MD Primary Care Provider +1- [phone] Reason for Visit * Reason Comments eRx-Medication Refill Encounter Details Date Type Department Care Team (Late st Contact Info) Description 07/26/2024 Refill [facility] [address] [facility] [place] [phone] Lloyd Villa MD 226 [place] [address] Anxiety state Allergies Active Allergy Reactions Criticality Noted Date Comments Ciprofloxacin 05/27/2022 tendonitis Oxycodone Other (Please comment) 01/29/2016 Mental problems, confusion Other reaction(s): SEDATION Tramadol 10/28/2023 Difficult to arouse after taking medication documented as of this encounter (statuses as of 07/26/2024) Medications COENZYME Q-10 100 MG PO CAPS [...] as directed. Freestyle Zabrina 2 supplied by [employer] Active Lidocaine 4 % External Patch (Aspercreme) [...] 60 to 180 days 1 Each 1 09/26/19 24 Active Additional Information Patient not taking.Reported on 07/08/2024 Ozempic (2 MG/DOSE) 8 MG/3ML Subcutaneous Solution Pen-injector (Semaglutide (2 MG/DOSE))Indicat ions:Type 2 diabetes mellitus with hemoglobin A1c goal of less than 8.0% (HCC) Inject 2 mg once weekly- this replaces trulicity 9 mL 4 12/30/19 24 Active Nystatin 338112 UNIT/GM External Powder (Nystop) Apply topically to [...] daily 30 Tablet 5 07/19/19 25 Active Pregabalin 150 MG Oral Capsule (Lyrica) TAKE 1 CAPSULE BY MOUTH THREE TIMES DAILY 90 Capsule 07/20/19 25 Active LORazepam 0.5 MG Oral Tablet (Ativan)Indicati ons:Anxiety state TAKE 1 TABLET BY MOUTH THREE TIMES DAILY NEEDED FOR ANXIETY 90 Tablet 07/26/19 25 Active LORazepam 0.5 MG Oral Tablet (Ativan)Indicati ons:Anxiety state TAKE 1 TABLET BY MOUTH THREE TIMES DAILY NEEDED FOR ANXIETY 90 Tablet 06/15/20 24 2024 Discontinued documented as of this encounter (statuses as of 07/26/2024) Active Problems Problem Noted Date Diagnosed Date [...] reflux disease without esophagi tis 07/12/2019 Old [place] (myocardial infarction) 07/12/2019 Type 2 diabetes mellitus [...] as of this encounter (statuses as of 07/26/2024) Resolved Problems Problem Noted Date Diagnosed Date [...] as of this encounter (statuses as of 07/26/2024) Immunizations Name Administration Dates Next Due COVID-19 mRNA, LNP-s, No Pre serve, 2-Dose Series (Huan Xiong) 10/17/2020,09/19/2020 Covid-19, Mrna, Lnp-s, Pf, B ivalent, [...] Telephone Encounter - Lloyd Villa MD - 07/26/2024 2:32 PM ESTSigned Prescriptions: Disp Refills LORazepam 0.5 MG Oral Tablet (Ativan) 90 Tab*0 Sig: TAKE 1 TABLET BY MOUTH THREE TIMES DAILY NEEDED FOR ANXIETYAuthorizing Provider: LLOYD VILLA * Telephone Encounter - Indira Hu [facility] - 07/26/2024 1:55 PM EST Pending Prescriptions: Disp Refills LORazepam 0.5 MG Oral Tablet 90 Tab*0 Sig: TAKE 1 TABLET BY MOUTH THREE TIMES DAILY NEEDED FOR ANXIETY * Telephone Encounter - Indira Hu [facility] - 07/26/2024 1:54 PM EST I have reviewed the patients controlled substance dispensing history in the Prescription Drug Monitoring Program in compliance with the [facility] regulations before prescribing a controlled substance. PDMP checked on 07/26/2024. Pending Prescriptions: Disp Refills LORazepam 0.5 MG Oral Tablet (Ativan) [Ph*90 Tab*0 Sig: TAKE 1 TABLET BY MOUTH THREE TIMES DAILY NEEDED FOR ANXIETY Last Visit: Visit date not found (in office), Visit date not found (telemedicine) Next Visit: 11/25/2024 Date medication was last filled: 06/15/24 Date medication is due for refill: 07/14/24 [facility] [address] [address] [address] Is this request for a controlled substance? Yes and Urine Drug Screen Not completed Toxicology results: No results found. However, due to the size of the patient record, not all encounters were searched.Please check Results Review for a complete set of results. Please approve if appropriate. Thank You Indira Hu, PharmD Clinical Pharmacist [facility]acy Services ([facility]PS) [phone] / [phone] 07/26/2024, 1:55 PM documented in this encounter Plan of Treatment Upcoming Encounters Date Type Department Care Team (Marco A Contact Info) Description 09/09/2024 1:20 PM EST Office Visit Dermatology [facility] [address] [place] [phone] Ran [facility] [address] 09/30/2024 1:00 PM EDT Office Visit Pharmacy, Glenna Crisostomo [address] [phone] Gl[facility] [address] [facility] [place] [address] 10/12/2024 1:40 PM EDT Office Visit Podiatry [facility] [address] [place] [phone] Danielle Burns DPM [address] [place] [address] 11/25/2024 2:20 PM EDT Office Visit Family Practice, Glenna Mckeon [address] [phone] Lloyd Villa MD 226 [facility] [address] [address] Scheduled Procedures Name Priority Associated Diagnoses Date/Ti me INJECTION SPINE LUMBAR OR SACRAL Lumbar radiculopathy Health Maintenance Due Date Last Done Comments Adult Wellness Visit 02/27/2020 02/26/2019 Depression Screening 04/25/2023 04/25/2022, 09/30/2017, 09/13/2014 (Discussed) CKD PHOS USE SMARTSET 79703 11/19/202311/04, 03/13/2021, 01/30/2021, Additional history exists Diabetic Eye Exam 01/10/2024 01/09/2023, , 12/31/2019, Additional history exists COVID-19 Vaccine ( season) 2024 06/04/2022, 10/17/2020, 09/19/2020 CKD HGB USE SMARTSET 51078 04/25/202404/25, 06/18/2022, 06/11/2022, Additional history exists Diabetic [...] as of this encounter Visit Diagnoses Diagnosis Anxiety state Anxiety state, unspecified documented in this encounter Advance Directives [...] and were consensually agreed upon. Care Teams Various Exceptionalities Teacher Relationship Specialty Start Date End Date Lloyd Villa MD [address] [address] PCP - General Family Medicine 07/08/24 documented as of this encounter
--- OUTSIDE RECORDS SUMMARY | 2024-08-31 18:20 | External Medical Summary | Summary of Care ---
Author Name Unknown Organization [facility] Address [address] [address] Phone [phone] Care Team Providers Care Abrasive Water Jet Cutter Operator Name Role Phone Case House MD Primary Care Provider +1- [phone] Reason for Visit * Reason Onset Date Comments Order Request 07/14/2024 Compression sock s Encounter Details Date Type Department Care Team (Late st Contact Info) Description 07/14/2024 Telephone [facility] [address] [facility] [place] [phone] Case House MD 226 [place] [address] Order Request (Compression socks) Allergies Active Allergy Reactions Criticality Noted Date Comments Ciprofloxacin 05/27/2022 tendonitis Oxycodone Other (Please comment) 01/29/2016 Mental problems, confusion Other reaction(s): SEDATION Tramadol 10/28/2023 Difficult to arouse after taking medication documented as of this encounter (statuses as of 07/16/2024) Medications COENZYME Q-10 100 MG PO CAPS 1 CAPSULE DAILY 3 Active RELION ULTIMA GLUCOSE SYSTEM W/DEVICE KIT Use as directed to monitor blood sugar Active Valerian Root 100 MG CAPS Take 1 Tab by mouth once. 1 Cap 0 03/23/201 6 Active Vitamin B-12 500 MCG Oral [...] as directed. Freestyle Zabrina 2 supplied by [employer] Active Lidocaine 4 % External Patch (Aspercreme) [...] trulicity 9 mL 4 4 Active Nystatin 942371 UNIT/GM External Powder (Nystop) Apply topically to [...] as of this encounter (statuses as of 07/16/2024) Active Problems Problem Noted Date Diagnosed Date [...] reflux disease without esophagi tis 07/12/2019 Old [place] (myocardial infarction) 07/12/2019 Type 2 diabetes mellitus [...] as of this encounter (statuses as of 07/16/2024) Resolved Problems Problem Noted Date Diagnosed Date [...] bmi= 33.13 09/26/16 Diverticulitis of colon 01/29/2016 03/2 09/2016 Lower GI bleed 01/29/2016 09/26/2016 Abnormal electrocardiogram [...] as of this encounter (statuses as of 07/16/2024) Immunizations Name Administration Dates Next Due COVID-19 mRNA, LNP-s, No Pre serve, 2-Dose Series (Pfizer) 10/17/2020,09/19/2020 Covid-19, Mrna, Lnp-s, Pf, B ivalent, [...] encounter Miscellaneous Notes * Telephone Encounter - Candice Ford LPN - 07/16/2024 1:45 PM EST Faxed to Adrien * Telephone Encounter - Case House MD - 07/14/2024 4:20 PM EST DME signed - can fax to Jorge'yudi * Telephone Encounter - Amina Fisher OSA - 07/14/2024 9:12 AM EST An order was requested for this patient. Name of Requesting Provider: Dr. House Order Requested: compression socks Diagnosis/Reason for Request: neuropathy If order request is for Mammogram: Is the patient having any breast symptoms? N/A Is there a chance of ? N/A Has the patient had any breast problems in the past? No What location AND department does the patient wish to have their order completed at? [facility] Fax Number, if applicable: unavailable If the caller is not a current patient, please advise the patient to call their current PCP to havethe order's prior to being seen in our office. The patient was informed that our providers would not order anything (medication, labs, etc.) prior to being seen. documented in this encounter Plan of Treatment Upcoming Encounters Date Type Department Care Team ([facility] Contact Info) Description 09/09/2024 1:20 PM EST Office Visit Dermatology [address] [phone] Ran Millan PA-C [address] [place] [address] 09/30/2024 1:00 PM EDT Office Visit Pharmacy, [facility] [phone] Glenna [facility] [address] [place] [address] 10/12/2024 1:40 PM EDT Office Visit Podiatry [facility] [address] [place] [phone] Danielle Burns DPM [address] [place] [address] 11/25/2024 2:20 PM EDT [facility] [address] [facility] [place] [phone] Case House MD [address] [phone] Health Maintenance Due Date Last Done Comments Adult Wellness Visit 02/27/2020 02/26/2019 Depression Screening 04/25/2023 04/25/2022, 09/30/2017, 09/13/2014 (Discussed) CKD PHOS USE SMARTSET 71599 11/19/202311/04, 03/13/2021, 01/30/2021, Additional history exists Diabetic Eye Exam 01/10/2024 01/09/2023, , 12/31/2019, Additional history exists COVID-19 Vaccine ( season) 2024 06/04/2022, 10/17/2020, 09/19/2020 CKD HGB USE SMARTSET 31487 04/25/202404/25, 06/18/2022, 06/11/2022, Additional history exists Diabetic [...] as of this encounter Visit Diagnoses Diagnosis Chronic diastolic heart failure (HCC)- Primary Chronic diastolic heart failure Peripheral polyneuropathy Unspecified hereditary and idiopathic peripheral neuropathy Edema, unspecified type documented in this encounter Advance Directives * [...] and were consensually agreed upon. Care Teams Abrasive Water Jet Cutter Operator Relationship Specialty Start Date End Date Case House MD [address] [phone] PCP - General Family Medicine 07/08/24 documented as of this encounter
--- OUTSIDE RECORDS SUMMARY | 2024-08-31 18:20 | External Medical Summary | Summary of Care ---
Author Name Unknown Organization [facility] Address [address] [address] Phone [phone] Care Team Providers Care Mathematics Academic Chair Name Role Phone Case House MD Primary Care Provider +1- [phone] Reason for Visit * Reason Comments eRx-Medication Refill Encounter Details Date Type Department Care Team (Late st Contact Info) Description 07/19/2024 Refill [facility] [address] [facility] [place] [address] Francisco Temple MD [address] [facility] [place] [address] Allergies Active Allergy Reactions Criticality Noted Date Comments Ciprofloxacin 05/27/2022 tendonitis Oxycodone Other (Please comment) 01/29/2016 Mental problems, confusion Other reaction(s): SEDATION Tramadol 10/28/2023 Difficult to arouse after taking medication documented as of this encounter (statuses as of 07/19/2024) Medications COENZYME Q-10 100 MG PO CAPS 1 CAPSULE DAILY 10/13/19 13 Active AnagoON ULTIMA GLUCOSE SYSTEM W/DEVICE KIT Use as [...] as directed. Freestyle Zabrina 2 supplied by [employer] Active Lidocaine 4 % External Patch (Aspercreme) [...] 9 mL 4 12/30/19 24 Active Nystatin 437615 UNIT/GM External Powder (Nystop) Apply topically to [...] PAIN 120 Capsule 5 05/11/20 24 Active LORazepam 0.5 MG Oral Tablet (Ativan)Indicati ons:Anxiety state TAKE 1 TABLET BY MOUTH THREE TIMES DAILY NEEDED FOR ANXIETY 90 Tablet 06/15/20 24 Active Pregabalin 150 MG Oral Capsule (Lyrica) TAKE 1 CAPSULE BY MOUTH THREE TIMES DAILY 90 Capsule 06/22/20 24 Active Insulin Glargine Solostar 100 UNIT/ML [...] daily 30 Tablet 5 07/19/19 25 Active hydroCHLOROthiaz river 25 MG Oral Tablet (Hydrodiuril) Take 1 tablet by mouth once daily 30 Tablet 5 12/15/19 24 2024 Discontinued documented as of this encounter (statuses as of 07/19/2024) Active Problems Problem Noted Date Diagnosed Date [...] reflux disease without esophagi tis 07/12/2019 Old [place] (myocardial infarction) 07/12/2019 Type 2 diabetes mellitus [...] as of this encounter (statuses as of 07/19/2024) Resolved Problems Problem Noted Date Diagnosed Date [...] as of this encounter (statuses as of 07/19/2024) Immunizations Name Administration Dates Next Due COVID-19 [...] lent Hd (Fluzone Hd) 03/18/2023,04/19/2022,04/03/2021 Seasonal Influenza, Quadr[place] north, No Preserve, IM 03/29/2016,05/12/2015 TD, Preservative Free [...] encounter Miscellaneous Notes * Telephone Encounter - Francisco Temple MD - 07/19/2024 4:15 PM ESTSigned Prescriptions: Disp Refills hydroCHLOROthiazide 25 MG Oral Tablet (Hyd*30 Tab*5 Sig: Take 1 tablet by mouth once daily Authorizing Provider: FRANCISCO TEMPLE * Telephone Encounter - Ludivina Romero LPN - 07/19/2024 11:33 AM ESTPending Prescriptions: Disp Refills hydroCHLOROthiazide 25 MG Oral Tablet (Hyd*30 Tab*5 Sig: Take 1 tablet by mouth once daily * Telephone Encounter - Ludivina Romero LPN - 07/19/2024 11:28 AM EST Rx pended Message sent to provider for approval Last OV 11/07/22 Next OV as needed documented in this encounter Plan of Treatment Upcoming Encounters Date Type Department Care Team ([facility] Contact Info) Description 09/09/2024 1:20 PM EST Office Visit Dermatology [address] [phone] Ran Millan PA-C [address] [place] [address] 09/30/2024 1:00 PM EDT Office Visit Pharmacy, [address] [phone] [address] 10/12/2024 1:40 PM EDT Office Visit Podiatry [facility] [address] [place] [phone] Danielle Burns DPM [address] [place] [address] 11/25/2024 2:20 PM EDT Office Visit Family Practice, [place] Ronda Mckeon [address] [phone] Case House MD [address] [address] Health Maintenance Due Date Last Done Comments Adult Wellness Visit 02/27/2020 02/26/2019 Depression Screening 04/25/2023 04/25/2022, 09/30/2017, 09/13/2014 (Discussed) CKD PHOS USE SMARTSET 62039 11/19/202311/04, 03/13/2021, 01/30/2021, Additional history exists Diabetic Eye Exam 01/10/2024 01/09/2023, , 12/31/2019, Additional history exists COVID-19 Vaccine ( season) 2024 06/04/2022, 10/17/2020, 09/19/2020 CKD HGB USE SMARTSET 73238 04/25/202404/25, 06/18/2022, 06/11/2022, Additional history exists Diabetic Foot Exam 08/08/2024 08/08/2023, 1 07/16/2019, 04/08/2018, Additional history exists Albumin/Creatinine Ratio 09/04/202409/04/2 024, 08/12/2022, 04/25/2022, Additional history exists GFR 01/05/2025 07/08/2024, 05/07, 09/05/2023, Additional history exists HbA1c 01/05/2025 07/08/2024, 05/07, 09/05/2023, Additional history exists Mammogram 05/19/2025 05/19/2024, 03/07, 08/24/2021, Additional history exists B-12 05/25/2025 05/25/2024, 0212/2022, 01/30/2021, Additional history exists DXA Scan 07/23/2025 [...] and were consensually agreed upon. Care Teams Mathematics Academic Chair Relationship Specialty Start Date End Date Caes House MD [address] [address] PCP - General Family Medicine 07/08/24 documented as of this encounter
--- OUTSIDE RECORDS SUMMARY | 2024-08-31 18:20 | External Medical Summary | Summary of Care ---
Author Name Unknown Organization [facility] Address [address] [address] Phone [phone] Care Team Providers Care Armor Reconnaissance Vehicle Crewman Name Role Phone Lloyd Villa MD Primary Care Provider +1- [phone] Reason for Visit * Reason Comments eRx-Medication Refill Encounter Details Date Type Department Care Team (Late st Contact Info) Description 07/19/2024 Refill [facility] [address] [facility] [place] [address] Lloyd Villa MD [address] [place] [address] Allergies Active Allergy Reactions Criticality Noted Date Comments Ciprofloxacin 05/27/2022 tendonitis Oxycodone Other (Please comment) 01/29/2016 Mental problems, confusion Other reaction(s): SEDATION Tramadol 10/28/2023 Difficult to arouse after taking medication documented as of this encounter (statuses as of 07/20/2024) Medications COENZYME Q-10 100 MG PO CAPS [...] as directed. Freestyle Zabrina 2 supplied by [employer] Active Lidocaine 4 % External Patch (Aspercreme) [...] 9 mL 4 12/30/19 24 Active Nystatin 245599 UNIT/GM External Powder (Nystop) Apply topically to [...] FOR ANXIETY 90 Tablet 06/15/20 24 Active Insulin Glargine Solostar 100 UNIT/ML [...] TIMES DAILY 90 Capsule 07/20/19 25 Active Pregabalin 150 MG Oral Capsule (Lyrica) TAKE 1 CAPSULE BY MOUTH THREE TIMES DAILY 90 Capsule 06/22/20 24 2024 Discontinued documented as of this encounter (statuses as of 07/20/2024) Active Problems Problem Noted Date Diagnosed Date [...] reflux disease without esophagi tis 07/12/2019 Old [place] (myocardial infarction) 07/12/2019 Type 2 diabetes mellitus [...] as of this encounter (statuses as of 07/20/2024) Resolved Problems Problem Noted Date Diagnosed Date [...] as of this encounter (statuses as of 07/20/2024) Immunizations Name Administration Dates Next Due COVID-19 mRNA, LNP-s, No Pre serve, 2-Dose Series ([employer]) 10/17/2020,09/19/2020 Covid-19, Mrna, Lnp-s, Pf, B ivalent, [...] Telephone Encounter - Lloyd Villa MD - 07/20/2024 7:45 AM ESTSigned Prescriptions: Disp Refills Pregabalin 150 MG Oral Capsule (Lyrica) 90 Cap*0 Sig: TAKE 1 CAPSULE BY MOUTH THREE TIMES DAILYAuthorizing Provider: LLOYD VILLA * Telephone Encounter - Maggie Ross [facility] - 07/20/2024 7:23 AM ESTPending Prescriptions: Disp Refills Pregabalin 150 MG Oral Capsule 90 Cap*0 Sig: TAKE 1 CAPSULE BY MOUTH THREE TIMES DAILY * Telephone Encounter - Maggie Ross [facility] - 07/20/2024 7:23 AM EST I have reviewed the patients controlled substance dispensing history in the Prescription Drug Monitoring Program in compliance with the [facility] regulations before prescribing a controlled substance. PDMP checked on 07/20/2024. Pending Prescriptions: Disp Refills Pregabalin 150 MG Oral Capsule (Lyrica) [*90 Cap*0 Sig: TAKE 1 CAPSULE BY MOUTH THREE TIMES DAILY Last Visit: Visit date not found (in office), Visit date not found (telemedicine) Next Visit: 11/25/2024 Date medication was last filled: 06/23/24 Date medication is due for refill: 07/22/24 Pharmacy: [facility] [address] [address] [address] Is this request for a controlled substance? Yes and Urine Drug Screen Not completed Toxicology results: No results found. However, due to the size of the patient record, not all encounters were searched.Please check Results Review for a complete set of results. Please approve if appropriate. Thanks, Maggie Ross Clinical Pharmacist Centralized Clinical Pharmacy Services ([facility]PS) [phone] 07/20/2024, 7:23 AM documented in this encounter Plan of Treatment Upcoming Encounters Date Type Department Care Team ([facility] Contact Info) Description 09/09/2024 1:20 PM EST Office Visit [address] [phone] Ran Millan PA-C [address] [place] [address] 09/30/2024 1:00 PM EDT Office Visit Pharmacy, [facility] [place] [address] [phone] Glenna [facility] [address] [place] [address] 10/12/2024 1:40 PM EDT Office Visit Podiatry [facility] [address] [place] [phone] Danielle Burns DPM [address] [place] [address] 11/25/2024 2:20 PM EDT [facility] [place] [facility] [address] [facility] [place] [phone] Lloyd Villa MD 226 [facility] [place] [address] Health Maintenance Due Date Last Done Comments Adult Wellness Visit 02/27/2020 02/26/2019 Depression Screening 04/25/2023 04/25/2022, 09/30/2017, 09/13/2014 (Discussed) CKD PHOS USE SMARTSET 59320 11/19/202311/04, 03/13/2021, 01/30/2021, Additional history exists Diabetic Eye Exam 01/10/2024 01/09/2023, , 12/31/2019, Additional history exists COVID-19 Vaccine ( season) 2024 06/04/2022, 10/17/2020, 09/19/2020 CKD HGB USE SMARTSET 33223 04/25/202404/25, 06/18/2022, 06/11/2022, Additional history exists Diabetic [...] and were consensually agreed upon. Care Teams Armor Reconnaissance Vehicle Crewman Relationship Specialty Start Date End Date Lloyd Villa MD [address] [address] PCP - General Family Medicine 07/08/24 documented as of this encounter
--- OUTSIDE RECORDS SUMMARY | 2024-08-31 18:20 | External Medical Summary | Summary of Care ---
Author Name Unknown Organization [facility] Address [address] [place] [address] Phone [phone] Care Team Providers Care Radiocommunications Technician Name Role Phone Case House MD Primary Care Provider [phone]- [phone] Reason for Visit * Reason Onset Date Comments Medication Question 07/27/2024 Encounter Details Date Type Department Care Team (Late st Contact Info) Description 07/27/2024 Telephone Centralized Clinical Pharmacy Services, Leslie Reyes [address] [place] [address] [place] [address] [facility] [address] [place] [address] [phone] Medication Question Allergies Active Allergy Reactions Criticality Noted Date Comments Ciprofloxacin 05/27/2022 tendonitis Oxycodone Other (Please comment) 01/29/2016 Mental problems, confusion Other reaction(s): SEDATION Tramadol 10/28/2023 Difficult to arouse after taking medication documented as of this encounter (statuses as of 07/27/2024) Medications COENZYME Q-10 100 MG PO CAPS [...] as directed. Freestyle Zabrina 2 supplied by [email or web address] Active Lidocaine 4 % External Patch (Aspercreme) [...] trulicity 9 mL 4 4 Active Nystatin 913529 UNIT/GM External Powder (Nystop) Apply topically to [...] TIMES DAILY NEEDED FOR ANXIETY 90 Tablet 01/20/202 5 Active documented as of this encounter (statuses as of 07/27/2024) Active Problems Problem Noted Date Diagnosed Date [...] reflux disease without esophagi tis 07/12/2019 [place] (myocardial infarction) 07/12/2019 Type 2 diabetes mellitus [...] as of this encounter (statuses as of 07/27/2024) Resolved Problems Problem Noted Date Diagnosed Date [...] as of this encounter (statuses as of 07/27/2024) Immunizations Name Administration Dates Next Due COVID-19 mRNA, LNP-s, No Pre serve, 2-Dose Series ([employer]) 10/17/2020,09/19/2020 Covid-19, Mrna, Lnp-s, Pf, B ivalent, [...] encounter Miscellaneous Notes * Telephone Encounter - Rimma Pelaez RPh - 07/27/2024 3:48 PM EST Patient Phone Numbers Returned call and spoke to Chance. Confirmed with him that patient should have PACENET. He is planning to contact pharmacy to ensure prescription is being run through this. Agreeable to return call to clinic if this is not the case. Rimma Pelaez RPh, PharmD Clinical Pharmacist - Cab Driver [facility] 07/27/2024, 3:49 PM [phone] * Telephone Encounter - Scarlett Vazquez CPhT - 07/27/2024 12:25 PM EST Caller's name: Chance Preferred call back number(OFFICE NUMBER FOR ): [phone] Reason for call: Medication question: Pts spouse is asking if there is something cheaper the pt cantake due to the high cost of the Ozempic. Please return his call. Thank you, Scarlett Vazquez Head Inspector And Center Marker Centralized Clinical Pharmacy Services 07/27/2024,12:25 PM documented in this encounter Plan of Treatment Upcoming Encounters Date Type Department Care Team ([facility] st Contact Info) Description 09/09/2024 1:20 PM EST Office Visit Dermatology [address] [phone] Ran Millan PA-C [address] [place] [address] 09/30/2024 1:00 PM EDT Office Visit Pharmacy, Glenna Crisostomo [facility] [place] [phone] [facility] [address] [place], [place] [address] [address] 10/12/2024 1:40 PM EDT Office Visit Podiatry [facility] [address] [place] [phone] Danielle Burns DPM [address] [place] [address] 11/25/2024 2:20 PM EDT Office Visit Family Practice, Glenna Mckeon [address] [phone] Case House MD [address] [facility] [place] [address] Scheduled Procedures Name Priority Associated Diagnoses Date/Ti me INJECTION SPINE LUMBAR OR SACRAL Lumbar radiculopathy Health Maintenance Due Date Last Done Comments Adult Wellness Visit 02/27/2020 02/26/2019 Depression Screening 04/25/2023 04/25/2022, 09/30/2017, 09/13/2014 (Discussed) CKD PHOS USE SMARTSET 20959 11/19/202311/04, 03/13/2021, 01/30/2021, Additional history exists Diabetic Eye Exam 01/10/2024 01/09/2023, , 12/31/2019, Additional history exists COVID-19 Vaccine ( season) 2024 06/04/2022, 10/17/2020, 09/19/2020 CKD HGB USE SMARTSET 55707 04/25/202404/25, 06/18/2022, 06/11/2022, Additional history exists Diabetic [...] and were consensually agreed upon. Care Teams Radiocommunications Technician Relationship Specialty Start Date End Date Case House MD [address] [address] PCP - General Family Medicine 07/08/24 documented as of this encounter
--- OUTSIDE RECORDS SUMMARY | 2024-08-31 18:20 | External Medical Summary | Summary of Care ---
Author Name Unknown Organization [facility] Address [address] [address] Phone [phone] Care Team Providers Care Door Framer Name Role Phone Case House MD Primary Care Provider [phone]- [phone] Reason for Visit * Reason Comments Diabetic Foot Care Encounter Details Date Type Department Care Team (Late st Contact Info) Description 07/13/2024 1:40 PM EST Office Visit Podiatry [facility] [address] [place] [address] Danielle Burns DPM [address] [place] [address] Onychomycosis*; Pain in toe of right foot; Ingrowing nail, right great toe; Type 2 diabetes mellitus with stage 3a chronic kidney disease, without long-term current use of insulin ([facility]); Type 2 diabetes mellitus with hemoglobin A1c goal of less than 8.0% ([facility]) [E11.9] Allergies Active Allergy Reactions Criticality Noted Date [...] as directed. Freestyle Zabrina 2 supplied by [employer] Active Lidocaine 4 % External Patch (Aspercreme) [...] hemoglobin A1c goal of less than 8.0% ([facility]) Use to inject insulin once daily. 100 [...] disease, without long-term current use of insulin ([facility]) TAKE 1 TABLET BY MOUTH IN THE [...] trulicity 9 mL 4 4 Active Nystatin 796713 UNIT/GM External Powder (Nystop) Apply topically to [...] reflux disease without esophagi tis 07/12/2019 [place] (myocardial infarction) 07/12/2019 Type 2 diabetes mellitus [...] mRNA, LNP-s, No Pre serve, 2-Dose Series ([employer]) 10/17/2020,09/19/2020 Covid-19, Mrna, Lnp-s, Pf, B ivalent, 30 Mcg, IM, 12 yrs and above ([employer]x) 06/04/2022 Pneumococcal Conjugate Vacc, 13 Valent (Prevnar) [...] on file documented as of this encounter Progress Notes * Danielle Burns, PARMJIT - 07/13/2024 1:40 PM EST Podiatry Established Patient Note [facility] Name: Thuy Vargas : 1940 Date: 07/13/2024 CHIEF COMPLAINT: Diabetic Nail Care HISTORY OF PRESENT ILLNESS: This patient is a 83 year old female who presents today for diabetic nail care. Pt presents today with her . She denies any pain to her feet. She states she has great feeling in her feet. She denies any other complaints at todays visit. She denies any recent changes in her medical history. Last Primary Care Visit: 05/16/2022 with Levon Nuno DO - [facility] Past Medical History: Diagnosis Date Allergic rhinitis 02/18/05 3 cm Benign neoplasm of colon Benign neoplasm of colon 09/12 5 years Calculus of ureter Cerebrovascular event, ill-defined, within last 8 weeks 02/24/03 left occipital lacunar infarction Diastolic dysfunction 10/05/15 Diverticulosis of colon Diverticulosis of colon 09/12 DM type 2, goal A1C below 8.0 Dyslipidemia, goal LDL below 70 Esophageal reflux Generalized osteoarthritis krystyna back-- uses chiropracter HTN, goal below 140/80 Internal hemorrhoids Lumbosacral spondylosis l4-l5/l5-s1 Lung nodule LVH (left ventricular hypertrophy) 10/05/15 Obesity, BMI not known Postmenopausal atrophic vaginitis Rectocele 03/20/2018 Past Surgical History: Procedure Laterality Date COLONOSCOPY W/ LESION REMOVAL, SNARE 10/04/2008 repeat in 5 years COLONOSCOPY, DIAGNOSTIC (RECTUM) 02/27/2016 diverticulosis/[facility] COLONOSCOPY, REMOVE LESION 04/27/07 x2, needs repeat in 2 years CYSTO/URETERO W/LITHOTRIPSY Left 08/15/2017 CYSTOURETHROSCOPY URETEROSCOPY WITH LITHOTRIPSY AND STENT INSERTION performed by Nery Bone MD at OR [facility] CYSTO/URETERO W/LITHOTRIPSY Left 08/01/2017 CYSTOURETHROSCOPY URETEROSCOPY WITH LITHOTRIPSY AND STENT INSERTION performed by Nery Bone MD at OR [facility] CYSTOSCOPY/URETERAL CATHETER Bilateral 08/15/2017 CYSTOURETHROSCOPY WITH URETERAL CATHETER performed by Nery Bone MD at OR [facility] CYSTOSCOPY/URETERAL CATHETER Bilateral 08/01/2017 CYSTOURETHROSCOPY WITH URETERAL CATHETER performed by Nery Bone MD at OR [facility] INJECT DX/THER SUBSTANCE INTERLAMINAR LUMBAR/SACRAL W IMAGE GUIDE 11/20/2020 INJECTION SPINE LUMBAR OR SACRAL performed by Jerel Melissa DO at OR [facility] INJECT DX/THER SUBSTANCE INTERLAMINAR LUMBAR/SACRAL W IMAGE GUIDE 09/22/2023 INJECTION SPINE LUMBAR OR SACRAL performed by Phi Beckwith DO at OR [facility] INJECT DX/THER SUBSTANCE INTERLAMINAR LUMBAR/SACRAL W IMAGE GUIDE 02/16/2024 INJECTION SPINE LUMBAR OR SACRAL performed by Phi Beckwith DO at OR [facility] INJECT DX/THER SUBSTANCE INTERLAMINAR LUMBAR/SACRAL W IMAGE GUIDE 03/19/2024 INJECTION SPINE LUMBAR OR SACRAL performed by Phi Beckwith DO at OR [facility] LAP;W/HYSTERECTOMY about 1992 Hysterectomy Complete- bleeding problems LUMBAR HEMILAMINECTOMY , x 2, in [place] REMOVAL OF APPENDIX age 18 Appendectomy SINUS SURGERY PROCEDURE NEC ? 1989 [place] Family History Problem Relation Name Age of Onset Heart attack Father 56 Fatal Skin cancer Father Hypertension Mother Renal Hx Mother ESRD, on HD; age 89 Stroke Sister Ngozi 56 Breast Cancer Cousin (Paternal) Diabetes Brother Santino Renal Hx Sister Zeenat Kidney stones Skin cancer Sister Zeenat Heart attack Sister Janel Heart disease Sister Janel Stent No Known Problems Brother Dominic Breast Cancer Daughter Mental Disorder No significant family history Social History Socioeconomic History Marital status: Spouse name: Not on file Number of children: Not on file Years of education: Not on file Highest education level: Not on file Occupational History Not on file Social Needs Financial resource strain: Not on file Food insecurity: Worry: Not on file Inability: Not on file Transportation needs: Medical: Not on file Non-medical: Not on file Tobacco Use Smoking status: Former Smoker Packs/day: 1.00 Years: 22.00 Pack years: 22.00 Types: Cigarettes Last attempt to quit: 07/07/1987 Years since quittin.8 Smokeless tobacco: Never Used Tobacco comment: began at age 19; no passive smoke Substance and Sexual Activity Alcohol use: No Drug use: No Comment: 1 cup decaf per day Sexual activity: Never Lifestyle Physical activity: Days per week: Not on file Minutes per session: Not on file Stress: Not on file Relationships Social connections: Talks on phone: Not on file Gets together: Not on file Attends church service: Not on file Active member of club or organization: Not on file Attends meetings of clubs or organizations: Not on file Relationship status: Not on file Intimate partner violence: Fear of current or ex partner: Not on file Emotionally abused: Not on file Physically abused: Not on file Forced sexual activity: Not on file Other Topics Concern Not on file Social History Narrative [employer] INFORMATION ENVIRONMENTAL HISTORY: Type of Home: [place] Type of Heating System: Electric Air Conditioning: Yes Patient's bedroom and Dining room Basement: Unfinished, Dampness, Dehumidifier and No evidence mold, mildew Home have cockroaches: No Irritants in the home: Scented air fresheners Patient's bedroom location: Floor: first Type of joyce: Carpeting Beds: Number: 1 Type of beds: Mattress Pillows: Number: 3 Type of pillows: Foam Bedroom contains: Minimal items Pets: none Lives on a farm: No Housewife. 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 1 Cap 0 Vitamin B-12 500 MCG Oral Tablet (vitamin B-12) Take 1 Tablet by mouth in the morning and 1 Tablet at noon and 1 Tablet before bedtime. Vitamin B Complex Oral Tablet 1 tab, Tab, Oral, Daily, 30 tab, 0 Refill(s) Fish Oil 1000 MG Oral Capsule Take 1 Capsule by mouth in the morning. Magnesium 250 MG Oral Tablet Take 1 Tablet by mouth in the morning. Excedrin Extra Strength 250-250-65 MG Oral Tablet (Fymvpbs-Uuccmoinxmiwz-Yhwisdkm) Take 1 Tablet bymouth every 6 hours as needed. FreeStyle Zabrina 2 Sensor Use as directed. Freestyle Zabrina 2 supplied by [employer] 5-2.5-18.5 LF-MCG/0.5 Suspension Prefilled Syringe (Feznhuu-Owpxha-Mhdyo Pertussis) administer 0.5 ml intramuscularly as directed (Patient not taking: Reported on 07/08/2024) 0.5 mL 0 Lidocaine 4 % External Patch (Aspercreme) Place 1 Patch over 12 hours topically on the skin daily. 30 Patch 11 Triamcinolone Acetonide 0.1 % External Cream (Aristocort) Apply topically to affected area 2 times a day. To affected area. (Patient not taking: Reported on 07/08/2024) 80 g 5 BD Pen Needle Kaci 2nd Gen 32G X 4 MM (Insulin Pen Needle) Use to inject insulin once daily. 100 Each 3 DuoDERM CGF Dressing External Apply 1 Each topically to affected area in the morning. (Patient not taking: Reported on 07/08/2024) 20 Each 3 metFORMIN HCl ER 750 MG Oral Tablet Extended Release 24 Hour (Glucophage XR) TAKE 1 TABLET BY MOUTHIN THE MORNING AND 1 TAB AT BEDTIME 180 Tablet 3 Omeprazole 20 MG Oral Capsule Delayed Release (PriLOSEC) TAKE 1 CAPSULE BY MOUTH BEFORE BREAKFAST 90 Capsule 3 Shingrix 50 MCG/0.5ML Intramuscular Suspension Reconstituted (Zoster Vac Recomb Adjuvanted) Inject 0.5 mL into a large muscle now and repeat dose in 60 to 180 days (Patient not taking: Reported on 07/08/2024) 1 Each 1 hydroCHLOROthiazide 25 MG Oral Tablet (Hydrodiuril) Take 1 tablet by mouth once daily 30 Tablet 5 Ozempic (2 MG/DOSE) 8 MG/3ML Subcutaneous Solution Pen-injector (Semaglutide (2 MG/DOSE)) Inject 2 mg once weekly- this replaces trulicity 9 mL 4 Nystatin 833612 UNIT/GM External Powder (Nystop) Apply topically to affected area daily. Apply to groin area as needed. 15 g 5 Jardiance 10 MG Oral Tablet (Empagliflozin) TAKE 1 TABLET BY MOUTH ONCE DAILY IN THE MORNING 90 Tablet 1 Atorvastatin Calcium 40 MG Oral Tablet (Lipitor) TAKE 1 TABLET BY MOUTH ONCE DAILY AT BEDTIME 90 Tablet 1 Dicyclomine HCl 10 MG Oral Capsule (Bentyl) TAKE 1 CAPSULE BY MOUTH 4 TIMES DAILY NEEDED FOR ABDOMINAL PAIN 120 Capsule 5 LORazepam 0.5 MG Oral Tablet (Ativan) TAKE 1 TABLET BY MOUTH THREE TIMES DAILY NEEDED FOR ANXIETY 90 Tablet 0 Pregabalin 150 MG Oral Capsule (Lyrica) TAKE 1 CAPSULE BY MOUTH THREE TIMES DAILY 90 Capsule 0 Insulin Glargine Solostar 100 UNIT/ML Subcutaneous Solution Pen-injector (Lantus SoloStar) Inject 36 Units under the skin at bedtime. Formulary change- replacing Semglee Do not start before July 07, 2024. 45 mL 4 predniSONE 10 MG Oral Tablet (Deltasone) Take 5 tabs for 2 days, 4 tabs for 2 days, 3 tabs for 2 days, 2 tabs for 2 days 1 tab for 2 days 30 Tablet 0 No current facility-administered medications for this visit. ALLERGIES: Review of patient's allergies indicates: Allergen Reactions Ciprofloxacin tendonitis Oxycodone Other (Please comment) Mental problems, confusion Other reaction(s): SEDATION Tramadol Difficult to arouse after taking medication REVIEW OF SYSTEMS: CONSTITUTIONAL: No change in weight, No weakness, No fatigue and No fevers, sweats, or chills EYE: No recent significant change in vision and No eye pain, redness, discharge EARS: No ear pain and No recent change in hearing NOSE: No history of frequent colds or sinusitis and No nasal stuffiness PULMONARY: No cough, sputum, or hemoptysis and No recent change in breathing CARDIOVASCULAR: No chest pain, No shortness of breath, No palpitations and No syncope EXTREMITIES: No pain, redness or swelling on the joints SKIN/INTEGUMENTARY: No edema, No rash and No itching NEUROLOGIC: Normal balance, No headaches, No seizures and No weakness PSYCHIATRIC: No depression, No anxiety and No psychosis FOCUSED PODIATRIC EXAM: Vitals: There were no vitals filed for this visit. General: Patient is awake alert oriented to person place time. No apparent distress. Vascular: DP/PT pulses palpable, monie. CFT < 3 sec 1-5, monie. No edema noted, monie.. Temperature gradient is normal warm to cold, monie. Varicosities noted. Neurologic: Protective sensation intact to light touch, monie. Sensation to sharp/dull is intact, monie. There is no babinski response elicited, monie. Ankle clonus is absent, monie. Spontaneous movements noted. Dermatological: Skin is atrophic in appearance with no open lesions or interdigital macerations, monie. Nails 1-5, monie are elongated and thickened with slight discoloration to the hallux nails. Pedal hair is absent, monie. Musculoskeletal: POP noted to the nails, monie. No pain with active or passive ROM of the digits or ankle joint, monie. Muscle strength is 5/5 for all muscle groups of the lower extremity, monie. DIAGNOSTIC STUDIES: None Class Findings for Routine Foot Care Class A Findings: None Class B Findings: Advanced trophic changes (at least three of the following): hair growth (decreaseor absence), nail changes (thickening) and skin texture (thin, shiny) Class C Findings: Paresthesia (abnormal spontaneous sensations in feet) and Burning Modifier: Q9 - 1 Class B Finding and 2 Class C Findings ASSESSMENT: 1. DM2 2. Onychomycosis 3. Pain in toes, monie 4. Ingrowing nail, lateral border, left great toe PLAN: - Discussed with pt the importance of maintaining a controlled blood sugar and checking her feet daily - Nails 1-5, monie were trimmed with nail nipper - Continue wearing good, supportive shoes. - Pt to RTC in 3 months for further care. Instructed pt to call sooner with any problems or questions. Danielle Burns DPM documented in this encounter Nursing Notes * Jackie Peralta LPN - 07/13/2024 1:33 PM EST Pt presents with her for routine diabetic foot care, states has pain in R great toe, due togout. Just given prednisone from Kevon Desir PA-C today. BSG was 130 - something today. documented in this encounter Plan of Treatment Upcoming Encounters Date Type Department Care Team (Late st Contact Info) Description 09/09/2024 1:20 PM EST Office Visit Dermatology [address] [phone] Ran Millan PA-C [address] [place] [address] 09/30/2024 1:00 PM EDT Office Visit Pharmacy, [address] [facility] [place] [phone] [address] [address] [place] [address] 10/12/2024 1:40 PM EDT Office Visit Podiatry [facility] [address] [place] [phone] Danielle Burns DPM [address] [place] [address] 11/25/2024 2:20 PM EDT Office Visit Family [facility], Glenna Mckeon [address] [phone] Case House MD [address] [place] [address] Health Maintenance Due Date Last Done Comments Adult Wellness Visit 02/27/2020 02/26/2019 Depression Screening 04/25/2023 04/25/2022, 09/30/2017, 09/13/2014 (Discussed) CKD PHOS USE SMARTSET 51830 11/19/202311/04, 03/13/2021, 01/30/2021, Additional history exists Diabetic Eye Exam 01/10/2024 01/09/2023, , 12/31/2019, Additional history exists COVID-19 Vaccine ( season) 2024 06/04/2022, 10/17/2020, 09/19/2020 CKD HGB USE SMARTSET 84244 04/25/202404/25, 06/18/2022, 06/11/2022, Additional history exists Diabetic [...] as of this encounter Visit Diagnoses Diagnosis Onychomycosis- Primary Dermatophytosis of nail Pain in toe of right foot Pain in limb Ingrowing nail, right great toe Ingrowing nail Type 2 diabetes mellitus with stage 3a chronic kidney disease, without long-term current use of insulin ([facility]) Type 2 diabetes mellitus with hemoglobin A1c goal of less than 8.0% ([facility]) [E11.9] documented in this encounter Advance Directives * [...] and were consensually agreed upon. Care Teams Door Framer Relationship Specialty Start Date End Date Case House MD [address] [address] PCP - General Family Medicine 07/08/24 documented as of this encounter
--- OUTSIDE RECORDS SUMMARY | 2024-08-31 18:21 | External Medical Summary | Summary of Care ---
Author Name Unknown Organization [facility] Address [address] [address] Phone [phone] Care Team Providers Care Cardiopulmonary Technician Name Role Phone Lloyd Villa MD Primary Care Provider [phone]- [phone] Reason for Visit * Reason Comments eRx-Medication Refill Encounter Details Date Type Department Care Team (Late st Contact Info) Description 06/21/[address] [address] Lloyd Villa MD [address] [place] [address] Allergies Active Allergy Reactions Criticality Noted Date Comments Ciprofloxacin 05/27/2022 tendonitis Oxycodone Other (Please comment) 01/29/2016 Mental problems, confusion Other reaction(s): SEDATION Tramadol 10/28/2023 Difficult to arouse after taking medication documented as of this encounter (statuses as of 06/22/2024) Medications COENZYME Q-10 100 MG PO CAPS [...] Oral, Daily, 30 tab, 0 Refill(s) 03/09/20 Active Fish Oil 1000 MG Oral Capsule Take 1 Capsule by mouth in the morning. Active Magnesium 250 MG Oral Tablet Take 1 Tablet by mouth in the morning. Active Excedrin Extra Strength 250-250-65 MG Oral Tablet (Aspirin-Acetami nophen-Caffeine) Take 1 Tablet by mouth every 6 hours as needed. Active FreeStyle Zabrina 2 Sensor Use as directed. Freestyle Zabrina 2 supplied by [employer] Active Lidocaine 4 % External Patch (Aspercreme) Place 1 Patch over 12 hours topically on the skin daily. 30 Patch 11 04/22/20 Active Triamcinolone Acetonide 0.1 % External Cream (Aristocort) Apply topically to affected area 2 times a day. To affected area. 80 g 5 04/24/20 23 Active Additional Information Patient not taking.Reported on 05/25/2024 BD Pen Needle Kaci 2nd Gen 32G [...] Active Additional Information Patient not taking.Reported on 05/25/2024 metFORMIN HCl ER 750 MG Oral Tablet [...] 60 to 180 days 1 Each 1 03/22/20 24 Active Additional Information Patient not taking.Reported on 05/25/2024 hydroCHLOROthiaz river 25 MG Oral Tablet (Hydrodiuril) Take 1 tablet by mouth once daily 30 Tablet 5 12/15/19 24 Active Ozempic (2 MG/DOSE) 8 MG/3ML Subcutaneous Solution Pen-injector (Semaglutide (2 MG/DOSE))Indicat ions:Type 2 diabetes mellitus with hemoglobin A1c goal of less than 8.0% (HCC) Inject 2 mg once weekly- this replaces trulicity 9 mL 4 12/30/19 24 Active Nystatin 896231 UNIT/GM External Powder (Nystop) Apply topically to affected area daily. Apply to groin area as needed. 15 g 5 04/02/20 24 Active Insulin Glargine-yfgn 100 UNIT/ML Subcutaneous Solution Pen-injector (Semglee (yfgn))Indicatio ns:Type 2 diabetes mellitus with hemoglobin A1c goal of less than 8.0% (HCC) Inject 36 units under the skin once daily 45 mL 3 04/13/20 24 Active Jardiance 10 MG Oral Tablet [...] TIMES DAILY 90 Capsule 06/22/20 24 Active Pregabalin 150 MG Oral Capsule (Lyrica) TAKE 1 CAPSULE BY MOUTH THREE TIMES DAILY 90 Capsule 1 04/20/20 24 2023 Discontinued documented as of this encounter (statuses as of 06/22/2024) Active Problems Problem Noted Date Diagnosed Date [...] reflux disease without esophagi tis 07/12/2019 [place] (myocardial infarction) 07/12/2019 Type 2 diabetes mellitus [...] as of this encounter (statuses as of 06/22/2024) Resolved Problems Problem Noted Date Diagnosed Date [...] as of this encounter (statuses as of 06/22/2024) Immunizations Name Administration Dates Next Due COVID-19 mRNA, LNP-s, No Pre serve, 2-Dose Series ([employer]) 10/17/2020,09/19/2020 Covid-19, Mrna, Lnp-s, Pf, B ivalent, 30 Mcg, IM, 12 yrs and above ([employer]) 06/04/2022 Pneumococcal Conjugate Vacc, 13 Valent (Prevnar) [...] Telephone Encounter - Lloyd Villa MD - 06/22/2024 5:21 PM ESTSigned Prescriptions: Disp Refills Pregabalin 150 MG Oral Capsule (Lyrica) 90 Cap*0 Sig: TAKE 1 CAPSULE BY MOUTH THREE TIMES DAILYAuthorizing Provider: LLOYD VILLA * Telephone Encounter - Marie Foster [facility] - 06/22/2024 10:55 AM EST Pending Prescriptions: Disp Refills Pregabalin 150 MG Oral Capsule 90 Cap*0 Sig: TAKE 1 CAPSULE BY MOUTH THREE TIMES DAILY * Telephone Encounter - Marie Foster [facility] - 06/22/2024 10:46 AM EST I have reviewed the patients controlled substance dispensing history in the Prescription Drug Monitoring Program in compliance with the [facility] regulations before prescribing a controlled substance. PDMP checked on 06/22/2024. Pending Prescriptions: Disp Refills Pregabalin 150 MG Oral Capsule (Lyrica) [*90 Cap*0 Sig: TAKE 1 CAPSULE BY MOUTH THREE TIMES DAILY Last Visit: 05/25/2024 (in office), Visit date not found (telemedicine) Next Visit: Visit date not found Date medication was last filled: 05/20/24 Date medication is due for refill: 06/18/24 Pharmacy: [facility] [address] [address] [address] Is this request for a controlled substance? Yes and Urine Drug Screen Not completed Toxicology results: No results found. However, due to the size of the patient record, not all encounters were searched.Please check Results Review for a complete set of results. Please approve if appropriate. Thank you, Marie Foster, PharmD Clinical Pharmacist Centralized Clinical Pharmacy Services (CCPS) 06/22/24 10:46 AM [phone] documented in this encounter Plan of Treatment Upcoming Encounters Date Type Department Care Team ([facility] st Contact Info) Description 07/13/2024 1:40 PM EST Office Visit Podiatry [facility] [address] [address] Danielle Burns DPM [address] [address] 09/09/2024 1:20 PM EST Office Visit Dermatology [facility] [address] [place] [phone] Ran Millan PA-C [address] [place] [address] 09/30/2024 1:00 PM EDT Office Visit Pharmacy[address] [facility] [address] [phone] [facility] [address] [place] [address] [place] [address] 11/25/2024 2:20 PM EDT [facility] [address] [facility] [place] [phone] Lloyd Villa MD [address] [place] [address] Health Maintenance Due Date Last Done Comments Adult Wellness Visit 02/27/2020 02/26/2019 Depression Screening 04/25/2023 04/25/2022, 09/30/2017, 09/13/2014 (Discussed) CKD PHOS USE SMARTSET 67764 11/19/202311/04, 03/13/2021, 01/30/2021, Additional history exists Diabetic Eye Exam 01/10/2024 01/09/2023, , 12/31/2019, Additional history exists COVID-19 Vaccine ( season) 2024 06/04/2022, 10/17/2020, 09/19/2020 CKD HGB USE SMARTSET 32654 04/25/202404/25, 06/18/2022, 06/11/2022, Additional history exists Diabetic Foot Exam 08/08/2024 08/08/2023, 1 07/16/2019, 04/08/2018, Additional history exists Albumin/Creatinine Ratio 09/04/202409/04/2 024, 08/12/2022, 04/25/2022, Additional history exists GFR 11/22/2024 05/25/2024, 03/0 07/2023, 04/25/2023, Additional history exists HbA1c 11/22/2024 05/25/2024, 03/0 07/2023, 04/25/2023, Additional history exists Mammogram 05/19/2025 05/19/2024, 03/07, 08/24/2021, Additional history exists B-12 05/25/2025 05/25/2024, 02/0 12/2022, 01/30/2021, Additional history exists DXA Scan 07/23/2025 07/23/2022, 07/07, 03/17/2019, Additional history exists DTap/Tdap Vaccines (2 - Td or Tdap) 03/25/2033 03/25/2023, 03/15/2008 Pneumococcal Vaccine: 65+ Years Completed 03/28/2015, 07/30/2007 Zoster Vaccines Completed [...] and were consensually agreed upon. Care Teams Cardiopulmonary Technician Relationship Specialty Start Date End Date Llyod Villa MD [address] [place] [address] PCP - General Family Medicine 03/22/21 documented as of this encounter
--- OUTSIDE RECORDS SUMMARY | 2024-08-31 18:21 | External Medical Summary ---
Author Name Unknown Address Unknown Organization K01:[facility] - [address] [id number] Laboratory Report Ordering Provider Test Date Status NANCI FOSTER 07/08/2024 12:48:37 Final Observation Date Value Abnormality Reference (Units ) Status Uric Acid 07/08/2024 12:48:37 6.7 Above high normal 2. 4-5.7 (mg/dL) Final Performing Location [facility] - [address] [id number]
--- OUTSIDE RECORDS SUMMARY | 2024-08-31 18:21 | External Medical Summary | Summary of Care ---
Author Name Unknown Organization [facility] Address [address] [address] Phone [phone] Care Team Providers Care Instrument Repair Supervisor Name Role Phone Case House MD Primary Care Provider [phone]- [phone] Reason for Visit * Reason Comments Acute Pt is present today for big toe on right foot. Pt states it hurts very badly. states he looked at this morning and he thinks it is an ingrown toe nail. Pt states it its swelled. Pt states this has been going on for a couple days. Pt declines any injury. Encounter Details Date Type Department Care Team (Latest Contact Info) Description 07/08/2024 12:00 PM EST Office Visit [address] [address] Kevon Boo PA-Khai [address] [place] [id number] Right foot pain*; Type 2 diabetes mellitus with polyneuropathy (HCC) Allergies Active Allergy Reactions Criticality Noted Date Comments Ciprofloxacin 05/27/2022 tendonitis Oxycodone Other (Please comment) 01/29/2016 Mental problems, confusion Other reaction(s): SEDATION Tramadol 10/28/2023 Difficult to arouse after taking medication documented as of this encounter (statuses as of 07/08/2024) Medications COENZYME Q-10 100 MG PO CAPS [...] as directed. Freestyle Zabrina 2 supplied by [employer] Active Lidocaine 4 % External Patch (Aspercreme) [...] hemoglobin A1c goal of less than 8.0% ([facility]) Use to inject insulin once daily. 100 [...] disease, without long-term current use of insulin ([facility]) TAKE 1 TABLET BY MOUTH IN THE [...] trulicity 9 mL 4 4 Active Nystatin 888293 UNIT/GM External Powder (Nystop) Apply topically to [...] as of this encounter (statuses as of 07/08/2024) Active Problems Problem Noted Date Diagnosed Date [...] as of this encounter (statuses as of 07/08/2024) Resolved Problems Problem Noted Date Diagnosed Date [...] #8 Diverticulosis of colon 02/2014 Internal hemorrhoids 10/08/2 014 Benign neoplasm of colon 02/2014 HTN, [...] as of this encounter (statuses as of 07/08/2024) Immunizations Name Administration Dates Next Due COVID-19 mRNA, LNP-s, No Pre serve, 2-Dose Series ([employer]) 10/17/2020,09/19/2020 Covid-19, Mrna, Lnp-s, Pf, B ivalent, 30 Mcg, IM, 12 yrs and above ([employer]) 06/04/2022 Pneumococcal Conjugate Vacc, 13 Valent (Prevnar) [...] on file documented as of this encounter Last Filed Vital Signs Vital Sign Reading Time Taken Comments Blood Pressure 118/60 07/08/2024 12:03 PM EST Pulse 97 07/08/2024 12:03 PM EST Temperature 36 C (96.8 F) 07/08/2024 12:03 PM EST Respiratory Rate 16 07/08/2024 12:03 PM EST Oxygen Saturation 92% 07/08/2024 12:03 PM EST Inhaled Oxygen Concentration - - Weight 82.3 kg (181 lb 6.4 oz) 07/08/2024 12:03 PM EST Height - - Body Mass Index 32.13 05/25/2024 12:41 PM EST documented in this encounter Progress Notes * Kevon Boo PA-C - 07/08/2024 12:08 PM EST Images from the original note were not included. History of Present Illness Thuy Vargas is a 83 year old female that presents for Acute (Pt is present today for big toeon right foot. Pt states it hurts very badly. states he looked at this morning and he thinks it is an ingrown toe nail. Pt states it its swelled. Pt states this has been going on for a coupledays. Pt declines any injury. ) Pain, swelling, redness base of right great toe x few days, getting worse. No reported injury. Diabetic, +neuropathy. Follows with Podiatry for routine nail care. wonders if ingrown nail issue. No PMH gout, but +fhx gout in son. Ate ham and green beans for [place], admits doesn't typically eat meat. No other joint complaints. Physical Exam Vitals: 07/08/24 1203 Temp: 96.8 F (36 C) Pulse: 97 Resp: 16 SpO2: 92% BP: 118/60 Physical Exam Vitals and nursing note reviewed. Constitutional: General: She is not in acute distress. Comments: In wheelchair Musculoskeletal: Comments: Right foot with mild erythema, warmth, tenderness localized to base of great toe. Skin intact. ?ingrowing medial nail edge of great toe, but no tenderness at this site; nor any erythema or drainage. Neurological: Mental Status: She is alert and oriented to person, place, and time. Assessment and Plan Right foot pain (Primary). Appearance consistent with gout, but no reported PMH of this. - XR FOOT 3 OR MORE VIEWS - URIC ACID; Future; Expected date: 07/08/2024 - predniSONE 10 MG Oral Tablet (Deltasone); Take 5 tabs for 2 days, 4 tabs for 2 days, 3 tabs for 2days, 2 tabs for 2 days 1 tab for 2 days. Take with food, as directed. Avoid NSAIDs (ibuprofen, Motrin, Advil, naproxen, Aleve, etc.) while taking prednisone. You may take Tylenol (generic: acetaminophen) per package instructions if needed. The most common side effects of prednisone include heartburn/stomach upset, irritability/difficulty sleeping, temporary elevations of blood sugar. Type 2 diabetes mellitus with polyneuropathy (HCC) Wrap-Up Follow Up: Return if symptoms worsen or fail to improve, for Xray today, Labs Today. | For: Xray today, Labs Today Time: I spent a total of 20-29 minutes (exact time 20 mins) on the date of service in preparation, delivery, and documentation of the care provided to Thuy Vargas excluding any time spent in the performance of separately billed services. documented in this encounter Nursing Notes * Megan Layne CCMA - 07/08/2024 12:06 PM EST The patient has been properly identified by confirmation of name and date of . Chief Complaint Patient presents with Acute Pt is present today for big toe on right foot. Pt states it hurts very badly. states he looked at this morning and he thinks it is an ingrown toe nail. Pt states it its swelled. Pt states this has been going on for a couple days. Pt declines any injury. documented in this encounter Plan of Treatment Upcoming Encounters Date Type Department Care Team (Late st Contact Info) Description 07/13/2024 1:40 PM EST Office [facility] [address] [facility] [address] [address] Danielle Burns DPM [address] [place] [address] 09/09/2024 1:20 PM EST Office Visit Dermatology [facility] [address] [place] [phone] Ran Millan PA-C [address] [place] [address] 09/30/2024 1:00 PM EDT Office Visit Pharmacy, [place] [facility] [address] [place] [phone] Gl[facility] [address] [facility] [address] [address] 11/25/2024 2:20 PM EDT Office Visit Family Practice, [facility] [address] [address] [place] [phone] Case House MD [address] [place] [address] Pending Results Name Type Priority Associated Diagnoses Date /Time XR FOOT 3 OR MORE VIEWS Medical Imaging Routine Right foot pain 07/08/2024 12:48 PM EST URIC ACID Lab Routine Right foot pain 07/08/2024 12:48 PM EST Scheduled Orders Name Type Priority Associated Diagnoses Orde r Schedule URIC ACID Lab Routine Right foot pain Expected: 07/08/2024 (Approximate), Expires: 07/08/2025 Health Maintenance Due Date Last Done Comments Adult Wellness Visit 02/27/2020 02/26/2019 Depression Screening 04/25/2023 04/25/2022, 09/30/2017, 09/13/2014 (Discussed) CKD PHOS USE SMARTSET 46172 11/19/202311/04, 03/13/2021, 01/30/2021, Additional history exists Diabetic Eye Exam 01/10/2024 01/09/2023, , 12/31/2019, Additional history exists COVID-19 Vaccine ( season) 2024 06/04/2022, 10/17/2020, 09/19/2020 CKD HGB USE SMARTSET 14080 04/25/202404/25, 06/18/2022, 06/11/2022, Additional history exists Diabetic [...] as of this encounter Visit Diagnoses Diagnosis Right foot pain- Primary Pain in limb Type 2 diabetes mellitus with polyneuropathy (HCC) Type II or unspecified type diabetes mellitus with neurological manifestations, not stated as uncontrolled documented in this encounter Advance Directives * [...] and were consensually agreed upon. Care Teams Instrument Repair Supervisor Relationship Specialty Start Date End Date Case House MD [address] [address] PCP - General Family Medicine 07/08/24 documented as of this encounter"
--- OUTSIDE RECORDS SUMMARY | 2024-08-31 18:21 | External Medical Summary | Summary of Care ---
Author Name Unknown Organization [facility] Address [address] [address] Phone [phone] Care Team Providers Care It Business Analyst Name Role Phone Lloyd Villa MD Primary Care Provider +1- [phone] Reason for Visit * Reason Comments eRx-Medication Refill Encounter Details Date Type Department Care Team (Late st Contact Info) Description 06/14/[address] [address] Lloyd Villa MD [address] [place] [address] Anxiety state Allergies Active Allergy Reactions Criticality Noted Date Comments Ciprofloxacin 05/27/2022 tendonitis Oxycodone Other (Please comment) 01/29/2016 Mental problems, confusion Other reaction(s): SEDATION Tramadol 10/28/2023 Difficult to arouse after taking medication documented as of this encounter (statuses as of 06/15/2024) Medications COENZYME Q-10 100 MG PO CAPS [...] as directed. Freestyle Zabrina 2 supplied by [employer] Active Lidocaine 4 % External Patch (Aspercreme) [...] 9 mL 4 12/30/19 24 Active Nystatin 752227 UNIT/GM External Powder (Nystop) Apply topically to affected area daily. Apply to groin area as needed. 15 g 5 04/02/20 24 Active Insulin Glargine-yfgn 100 UNIT/ML Subcutaneous Solution Pen-injector (Semglee (yfgn))Indicatio ns:Type 2 diabetes mellitus with hemoglobin A1c goal of less than 8.0% (HCC) Inject 36 units under the skin once daily 45 mL 3 04/13/20 24 Active Pregabalin 150 MG Oral Capsule (Lyrica) TAKE 1 CAPSULE BY MOUTH THREE TIMES DAILY 90 Capsule 1 04/20/20 24 Active Jardiance 10 MG Oral Tablet [...] FOR ANXIETY 90 Tablet 06/15/20 24 Active LORazepam 0.5 MG Oral Tablet (Ativan)Indicati ons:Anxiety state TAKE 1 TABLET BY MOUTH THREE TIMES DAILY NEEDED FOR ANXIETY 90 Tablet 05/04/20 24 2023 Discontinued documented as of this encounter (statuses as of 06/15/2024) Active Problems Problem Noted Date Diagnosed Date [...] as of this encounter (statuses as of 06/15/2024) Resolved Problems Problem Noted Date Diagnosed Date [...] 04/13/2014 Vertigo 11/15/2010 04/13/2014 Orthostatic hypotension 11/15/2010 10/0 02/2014 Type 2 diabetes mellitus wit h [...] as of this encounter (statuses as of 06/15/2024) Immunizations Name Administration Dates Next Due COVID-19 mRNA, LNP-s, No Pre serve, 2-Dose Series ([employer]) 10/17/2020,09/19/2020 Covid-19, Mrna, Lnp-s, Pf, B ivalent, [...] Telephone Encounter - Lloyd Villa MD - 06/15/2024 4:25 PM ESTSigned Prescriptions: Disp Refills LORazepam 0.5 MG Oral Tablet (Ativan) 90 Tab*0 Sig: TAKE 1 TABLET BY MOUTH THREE TIMES DAILY NEEDED FOR ANXIETYAuthorizing Provider: LLOYD VILLA * Telephone Encounter - Jackie Guerra [facility] - 06/15/2024 4:17 PM ESTPending Prescriptions: Disp Refills LORazepam 0.5 MG Oral Tablet 90 Tab*0 Sig: TAKE 1 TABLET BY MOUTH THREE TIMES DAILY NEEDED FOR ANXIETY * Telephone Encounter - Jackie Guerra RPh - 06/15/2024 4:16 PM EST I have reviewed the patients controlled substance dispensing history in the Prescription Drug Monitoring Program in compliance with the [facility] regulations before prescribing a controlled substance. PDMP checked on 06/15/2024. Pending Prescriptions: Disp Refills LORazepam 0.5 MG Oral Tablet (Ativan) [Ph*90 Tab*0 Sig: TAKE 1 TABLET BY MOUTH THREE TIMES DAILY NEEDED FOR ANXIETY Last Visit: 05/25/2024 (in office), Visit date not found (telemedicine) Next Visit: Visit date not found Date medication was last filled: 05/04 Date medication is due for refill: 06/02 [facility] [address] [address] [address] Is this request for a controlled substance? Yes and Urine Drug Screen Not completed Toxicology results: No results found. However, due to the size of the patient record, not all encounters were searched.Please check Results Review for a complete set of results. Please approve if appropriate. Thank you, Jackie Guerra, PharmD Clinical Pharmacist Centralized Clinical Pharmacy Services (CCPS) [phone] 06/15/2024, 4:17 PM documented in this encounter Plan of Treatment Upcoming Encounters Date Type Department Care Team (Late st Contact Info) Description 07/13/2024 1:40 PM EST Office Visit Podiatry [facility] [address] [address] Danielle Burns DPM [address] [address] 09/09/2024 1:20 PM EST Office Visit Dermatology [facility] [address] [place] [address] Ran Millan PA-C [address] [place] [address] 09/30/2024 1:00 PM EDT Office Visit Pharmacy, [place] [address] [place] [phone] [facility] [address] [place] [address] 11/25/2024 2:20 PM EDT Office Visit Family Practice, [address] [place] [address] Lloyd Villa MD [address] [place] [address] Health Maintenance Due Date Last Done Comments Adult Wellness Visit 02/27/2020 02/26/2019 Depression Screening 04/25/2023 04/25/2022, 09/30/2017, 09/13/2014 (Discussed) CKD PHOS USE SMARTSET 87968 11/19/202311/04, 03/13/2021, 01/30/2021, Additional history exists Diabetic Eye Exam 01/10/2024 01/09/2023, , 12/31/2019, Additional history exists COVID-19 Vaccine ( season) 2024 06/04/2022, 10/17/2020, 09/19/2020 CKD HGB USE SMARTSET 05455 04/25/202404/25, 06/18/2022, 06/11/2022, Additional history exists Diabetic [...] and were consensually agreed upon. Care Teams It Business Analyst Relationship Specialty Start Date End Date Lloyd Villa MD [address] [facility] [address] [place] [address] PCP - General Family Medicine 03/22/21 documented as of this encounter
--- OUTSIDE RECORDS SUMMARY | 2024-08-31 18:21 | External Medical Summary | Summary of Care ---
Author Name Unknown Organization [facility] Address [address] [place] [address] Phone [phone] Care Team Providers Care Geophysical E Logger Name Role Phone Case House MD Primary Care Provider +1- [phone] Reason for Visit * Reason Onset Date Comments Medication Question 07/05/2024 Encounter Details Date Type Department Care Team (Late st Contact Info) Description 07/05/2024 Telephone Centralized Clinical Pharmacy Services, Leslie Reyes [address] [place] [address] [place] [address] [facility] [address] [place], [place] [id number] Medication Question Allergies Active Allergy Reactions Criticality Noted Date Comments Ciprofloxacin 05/27/2022 tendonitis Oxycodone Other (Please comment) 01/29/2016 Mental problems, confusion Other reaction(s): SEDATION Tramadol 10/28/2023 Difficult to arouse after taking medication documented as of this encounter (statuses as of 07/05/2024) Medications COENZYME Q-10 100 MG PO CAPS [...] as directed. Freestyle Zabrina 2 supplied by [employer] Active Lidocaine 4 % External Patch (Aspercreme) [...] 9 mL 4 12/30/19 24 Active Nystatin 217351 UNIT/GM External Powder (Nystop) Apply topically to [...] 2024. 45 mL 4 07/07/19 25 Active Insulin Glargine-yfgn 100 UNIT/ML Subcutaneous Solution Pen-injector (Semglee (yfgn))Indicatio ns:Type 2 diabetes mellitus with hemoglobin A1c goal of less than 8.0% (HCC) Inject 36 units under the skin once daily 45 mL 3 04/13/20 24 2023 Discontinued documented as of this encounter (statuses as of 07/05/2024) Active Problems Problem Noted Date Diagnosed Date [...] reflux disease without esophagi tis 07/12/2019 Old [place] (myocardial infarction) 07/12/2019 Type 2 diabetes mellitus [...] as of this encounter (statuses as of 07/05/2024) Resolved Problems Problem Noted Date Diagnosed Date [...] as of this encounter (statuses as of 07/05/2024) Immunizations Name Administration Dates Next Due COVID-19 mRNA, LNP-s, No Pre serve, 2-Dose Series ([employer]) 10/17/2020,09/19/2020 Covid-19, Mrna, Lnp-s, Pf, B ivalent, [...] encounter Miscellaneous Notes * Telephone Encounter - Barbie Torrez RPh - 07/05/2024 12:03 PM EST Spoke to Chance. They did not get a letter about semaglutide (Ozempic) He got a letter about semglee no longer being covered. Insurance will cover: Toujeo Solostar U 300 Toujeo Max U 300 Lantus U100 solostar pen Sent in for Lantus 36 units daily. Barbie Torrez, PharmD, BCACP Clinical Pharmacist Medication Therapy Disease Management 07/05/2024, 12:07 PM * Telephone Encounter - Scarlett Vazquez CPhT - 07/05/2024 11:31 AM EST Caller's name: Chance Preferred call back number(OFFICE NUMBER FOR ): [phone] Reason for call: Pts calling about [employer] not covering the Semaglutide. He would like a return call from the [facility] to discuss. Thank you, Scarlett Vazquez Precision Agriculture Specialist Centralized Clinical Pharmacy Services 07/05/2024,11:31 AM documented in this encounter Plan of Treatment Upcoming Encounters Date Type Department Care Team (Late st Contact Info) Description 07/13/2024 1:40 PM EST Office Visit Podiatry [facility] [address] [facility] [place] [address] Danielle Burns DPM 132 [facility] [place] [address] 09/09/2024 1:20 PM EST Office Visit Dermatology [facility] [address] [place] [phone] Ran Millan PA-C [address] [place] [address] 09/30/2024 1:00 PM EDT Office Visit Pharmacy, Glenna Bond [address] [facility] [place] [phone] Glenna [facility] [address] [place], [place] [address] [address] 11/25/2024 2:20 PM EDT Office Visit Family Practice, Glenna Mckeon [address] [facility] [place] [phone] Case House MD [address] [facility] [place] [address] Health Maintenance Due Date Last Done Comments Adult Wellness Visit 02/27/2020 02/26/2019 Depression Screening 04/25/2023 04/25/2022, 09/30/2017, 09/13/2014 (Discussed) CKD PHOS USE SMARTSET 40466 11/19/202311/04, 03/13/2021, 01/30/2021, Additional history exists Diabetic Eye Exam 01/10/2024 01/09/2023, , 12/31/2019, Additional history exists COVID-19 Vaccine ( season) 2024 06/04/2022, 10/17/2020, 09/19/2020 CKD HGB USE SMARTSET 59681 04/25/202404/25, 06/18/2022, 06/11/2022, Additional history exists Diabetic [...] as of this encounter Visit Diagnoses Diagnosis Type 2 diabetes mellitus with hemoglobin A1c goal of less than 8.0% ([facility])- Primary documented in this encounter Advance Directives * [...] and were consensually agreed upon. Care Teams Geophysical E Logger Relationship Specialty Start Date End Date Case House MD PCP - General Family Medicine 03/22/21 documented as of this encounter
--- OUTSIDE RECORDS SUMMARY | 2024-08-31 18:21 | External Medical Summary ---
Author Name Unknown Address Unknown Organization K01:[facility] [place] [address] [facility] [address] [place] [id number] Laboratory Report Ordering Provider Test Date Status JEFFERSON DESAIJEFERSON 07/08/2024 12:48:37 Final Observation Date Value Abnormality Reference (Units ) Status BUN 07/08/2024 12:48:37 18 6-20 (mg/dL) Final Creatinine 07/08/2024 12:48:37 1.0 0.5-1.0 (mg/dL) Final Glomerular filtration rate/1.73 sq M.predicted [Volume Rate/Area] in Serum, Plasma or Blood by Creatinine-based formula (CKD-EPI) 07/08/2024 12:48:37 56 Below low normal >=60 (mL/min) Final eGFR is calculated based on the CKD-EPI 2020 equation. Sodium 07/08/2024 12:48:37 140 135-146 (m mol/L) Final Potassium 07/08/2024 12:48:37 4.4 3.5-5.1 (m mol/L) Final Cl 07/08/2024 12:48:37 100 98-107 (mm ol/L) Final CO2 07/08/2024 12:48:37 24 22-32 (mmo l/L) Final Anion gap 07/08/2024 12:48:37 16 Above high normal 7- 15 (mmol/L) Final Glucose 07/08/2024 12:48:37 182 Above high normal 70 -120 (mg/dL) Final Calcium 07/08/2024 12:48:37 9.9 8.4-10.2 ( mg/dL) Final Performing Location [facility] [address] [place] [address]
--- OUTSIDE RECORDS SUMMARY | 2024-08-31 18:21 | External Medical Summary | Summary of Care ---
Author Name Unknown Organization [facility] Address [address] [facility] [place] [address] Phone [phone] Care Team Providers Care Project Manager Name Role Phone Case House MD Primary Care Provider +1- [phone] Reason for Visit * Reason Comments Follow Up 6 month follow up. P t experiencing tingling in both feet and swelling in L ankle for a while. Reports no injury or pain. Encounter Details Date Type Department Care Team (Late st Contact Info) Description 05/25/2024 1:20 PM EST Office Visit [address] [address] Case House MD [address] [place] [address] Type 2 diabetes mellitus with polyneuropathy (HCC)*; Dyslipidemia, goal LDL below 70; HTN, goal below 150/90; Primary osteoarthritis involving multiple joints; Anxiety state Allergies Active Allergy Reactions Criticality Noted Date Comments Ciprofloxacin 05/27/2022 tendonitis Oxycodone Other (Please comment) 01/29/2016 Mental problems, confusion Other reaction(s): SEDATION Tramadol 10/28/2023 Difficult to arouse after taking medication documented as of this encounter (statuses as of 06/13/2024) Medications COENZYME Q-10 100 MG PO CAPS [...] as directed. Freestyle Zabrina 2 supplied by [employer] Active Lidocaine 4 % External Patch (Aspercreme) [...] hemoglobin A1c goal of less than 8.0% ([facility]) Use to inject insulin once [...] disease, without long-term current use of insulin ([facility]) TAKE 1 TABLET BY MOUTH IN THE [...] Additional Information Patient not taking.Reported on 05/25/2024 hydroCHLOROthiazi de 25 MG Oral Tablet (Hydrodiuril) Take 1 tablet by mouth once daily 30 Tablet 5 4 Active Ozempic (2 MG/DOSE) 8 MG/3ML Subcutaneous Solution Pen-injector (Semaglutide (2 MG/DOSE))Indicati ons:Type 2 diabetes mellitus with hemoglobin A1c goal of less than 8.0% (HCC) Inject 2 mg once weekly- this replaces trulicity 9 mL 4 4 Active Nystatin 146602 UNIT/GM External Powder (Nystop) Apply topically to affected area daily. Apply to groin area as needed. 15 g 5 4 Active Insulin Glargine-yfgn 100 UNIT/ML Subcutaneous Solution Pen-injector (Semglee (yfgn))Indication s:Type 2 diabetes mellitus with hemoglobin A1c goal of less than 8.0% (HCC) Inject 36 units under the skin once daily 45 mL 3 4 Active Pregabalin 150 MG Oral Capsule (Lyrica) TAKE 1 CAPSULE BY MOUTH THREE TIMES DAILY 90 Capsule 1 4 Active Jardiance 10 MG Oral Tablet (Empagliflozin) TAKE 1 TABLET BY MOUTH ONCE DAILY IN THE MORNING 90 Tablet 1 4 Active Atorvastatin Calcium 40 MG Oral Tablet (Lipitor)Indicati ons:Dyslipidemia, goal LDL below 100 TAKE 1 TABLET BY MOUTH ONCE DAILY AT BEDTIME 90 Tablet 1 4 Active LORazepam 0.5 MG Oral Tablet (Ativan)Indicatio ns:Anxiety state TAKE 1 TABLET BY MOUTH THREE TIMES DAILY NEEDED FOR ANXIETY 90 Tablet 4 Active Dicyclomine HCl 10 MG Oral Capsule (Bentyl)Indicatio ns:Diverticulosis of large intestine without hemorrhage TAKE 1 CAPSULE BY MOUTH 4 TIMES DAILY NEEDED FOR ABDOMINAL PAIN 120 Capsule 5 4 Active documented as of this encounter (statuses as of 06/13/2024) Active Problems Problem Noted Date Diagnosed Date [...] reflux disease without esophagi tis 07/12/2019 Old [place] (myocardial infarction) 07/12/2019 Type 2 diabetes mellitus [...] as of this encounter (statuses as of 06/13/2024) Resolved Problems Problem Noted Date Diagnosed Date [...] as of this encounter (statuses as of 06/13/2024) Immunizations Name Administration Dates Next Due COVID-19 mRNA, LNP-s, No Pre serve, 2-Dose Series ([employer]) 10/17/2020,09/19/2020 Covid-19, Mrna, Lnp-s, Pf, B ivalent, [...] Sign Reading Time Taken Comments Blood Pressure 136/56 05/25/2024 12:41 PM EST Pulse 100 05/25/2024 12:41 PM EST Temperature 36.2 C (97.2 F) 05/25/2024 12:[address] Respiratory Rate 16 05/25/2024 12:41 PM EST Oxygen Saturation 92% 05/25/2024 12:41 PM EST Inhaled Oxygen Concentration - - Weight 87.5 kg (193 lb) 05/25/2024 12:41 PM EST Height 160 cm (5' 3") 05/25/2024 12:41 PM EST Body Mass Index 34.19 05/25/2024 12:41 PM EST documented in this encounter Progress Notes * Case House MD - 05/25/2024 1:23 PM EST Subjective: Thuy Vargas is a 83 year old female here today for Chief Complaint Patient presents with Follow Up 6 month follow up. Pt experiencing tingling in both feet and swelling in L ankle for a while. Reports no injury or pain. Here for routine follow up. Due for labs and will have drawn today. No injury - but increased swelling of left ankle and tingling in both feet. Has known diabetic neuropathy. Denies chest pain, shortness of breath, cough, nausea, vomiting, abd pain, dysuria, urinary frequency, nocturia, fever, melena, hematochezia. Past Medical History: Diagnosis Date Allergic rhinitis [...] in 5 years COLONOSCOPY, DIAGNOSTIC (RECTUM) 02/27/2016 diverticulosis/[facility] COLONOSCOPY, REMOVE LESION 04/27/07 x2, needs repeat in 2 years CYSTO/URETERO W/LITHOTRIPSY Left 08/15/2017 CYSTOURETHROSCOPY URETEROSCOPY WITH LITHOTRIPSY AND STENT INSERTION performed by Nery Bone MD at OR [facility] CYSTO/URETERO W/LITHOTRIPSY Left 08/01/2017 CYSTOURETHROSCOPY URETEROSCOPY WITH LITHOTRIPSY AND STENT INSERTION performed by Nery Bone MD at OR [facility] CYSTOSCOPY/URETERAL CATHETER Bilateral 08/15/2017 CYSTOURETHROSCOPY WITH URETERAL CATHETER performed by Nery Bone MD at OR [facility] CYSTOSCOPY/URETERAL CATHETER Bilateral 08/01/2017 CYSTOURETHROSCOPY WITH URETERAL CATHETER performed by Nery Bone MD at OR [facility] INJECT DX/THER SUBSTANCE INTERLAMINAR LUMBAR/SACRAL W IMAGE GUIDE 11/20/2020 INJECTION SPINE LUMBAR OR SACRAL performed by Jerel Shay Cousins, DO at OR [facility] INJECT DX/THER SUBSTANCE [...] problems LUMBAR HEMILAMINECTOMY , x 2, in [place] REMOVAL OF APPENDIX age 18 Appendectomy SINUS SURGERY PROCEDURE NEC ? 1989 [place] Review of patient's allergies indicates: Allergen Reactions Ciprofloxacin tendonitis Oxycodone Other (Please comment) Mental problems, confusion Other reaction(s): SEDATION Tramadol Difficult to arouse after taking medication Current Outpatient Medications Medication Sig Dispense Refill COENZYME Q-10 100 MG PO CAPS 1 CAPSULE DAILY Valerian Root 100 MG CAPS Take 1 [...] Excedrin Extra Strength 250-250-65 MG Oral Tablet (Jtqvxbv-Inbobwdilyxma-Gmqslhdd) Take 1 Tablet bymouth every 6 hours as needed. FreeStyle Zabrina 2 Sensor Use as directed. Freestyle Zabrina 2 supplied by [employer] Lidocaine 4 % External Patch (Aspercreme) Place 1 Patch over 12 hours topically on the skin daily. 30 Patch 11 BD Pen Needle Kaci 2nd Gen 32G X 4 MM (Insulin Pen Needle) Use to inject insulin once daily. 100 Each 3 metFORMIN HCl ER 750 MG Oral Tablet Extended Release 24 Hour (Glucophage XR) TAKE 1 TABLET BY MOUTHIN THE MORNING AND 1 TAB AT BEDTIME 180 Tablet 3 Omeprazole 20 MG Oral Capsule Delayed Release ([employer]) TAKE 1 CAPSULE BY MOUTH BEFORE BREAKFAST 90 Capsule 3 hydroCHLOROthiazide 25 MG Oral Tablet (Hydrodiuril) Take 1 tablet by mouth once daily 30 Tablet 5 Ozempic (2 MG/DOSE) 8 MG/3ML Subcutaneous Solution Pen-injector (Semaglutide (2 MG/DOSE)) Inject 2 mg once weekly- this replaces trulicity 9 mL 4 Nystatin 077533 UNIT/GM External Powder (Nystop) Apply topically to affected area daily. Apply to groin area as needed. 15 g 5 Insulin Glargine-yfgn 100 UNIT/ML Subcutaneous Solution Pen-injector (Semglee (yfgn)) Inject 36 units under the skin once daily 45 mL 3 Pregabalin 150 MG Oral Capsule (Lyrica) TAKE 1 CAPSULE BY MOUTH THREE TIMES DAILY 90 Capsule 1 Jardiance 10 MG Oral Tablet (Empagliflozin) TAKE 1 TABLET BY MOUTH ONCE DAILY IN THE MORNING 90 Tablet 1 Atorvastatin Calcium 40 MG Oral Tablet (Lipitor) TAKE 1 TABLET BY MOUTH ONCE DAILY AT BEDTIME 90 Tablet 1 LORazepam 0.5 MG Oral Tablet (Ativan) TAKE 1 TABLET BY MOUTH THREE TIMES DAILY NEEDED FOR ANXIETY 90 Tablet 0 Dicyclomine HCl 10 MG Oral Capsule (Bentyl) TAKE 1 CAPSULE BY MOUTH 4 TIMES DAILY NEEDED FOR ABDOMINAL PAIN 120 Capsule 5 [employer] GLUCOSE SYSTEM W/DEVICE KIT Use as directed to monitor blood sugar (Patient not taking: Reported on 05/25/2024) Boostrix 5-2.5-18.5 LF-MCG/0.5 Suspension Prefilled Syringe (Gijanis-Wvlsft-Nynxl Pertussis) administer 0.5 ml intramuscularly as directed (Patient not taking: Reported on 05/25/2024) 0.5 mL 0 Triamcinolone Acetonide 0.1 % External Cream (Aristocort) Apply topically to affected area 2 times a day. To affected area. (Patient not taking: Reported on 05/25/2024) 80 g 5 DuoDERM CGF Dressing External Apply 1 Each topically to affected area in the morning. (Patient not taking: Reported on 05/25/2024) 20 Each 3 Shingrix 50 MCG/0.5ML Intramuscular Suspension Reconstituted (Zoster Vac Recomb Adjuvanted) Inject 0.5 mL into a large muscle now and repeat dose in 60 to 180 days (Patient not taking: Reported on 05/25/2024) 1 Each 1 No current facility-administered medications for this visit. Objective: BP 136/56 | Pulse 100 | Temp 97.2 F (36.2 C) (Tympanic) | Resp 16 | Ht 5' 3" (1.6 m)| Wt 193 lb (87.5 kg) | SpO2 92% | BMI 34.19 kg/m | BSA 1.97 m GEN: NAD HEENT: Benign NECK: Supple with no LAD, TM, JVD CHEST: CTA B CV: RRR ABD: Soft, NT/ND, No HSM, NABS EXT: No c,c,e Assessment and Plan: Type 2 diabetes mellitus with polyneuropathy (HCC) (Primary) - HEMOGLOBIN A1C; Future; Expected date: 06/13/2024 - BASIC METABOLIC PANEL; Future; Expected date: 06/13/2024 - ALBUMIN / CREATININE RATIO, URINE; Future; Expected date: 06/13/2024 -continue same meds, update labs today. Dyslipidemia, goal LDL below 70 -atorvastatin HTN, goal below 150/90 -hctz Primary osteoarthritis involving multiple joints -stable. Anxiety state -continue same meds Follow Up: Return in about 6 months (around 11/22/2024) for recheck. | For: recheck 30 min with pt and chart review Case House MD documented in this encounter Nursing Notes * Nery Burns MED ASSIST - 05/25/2024 12:49 PM EST The patient has been properly identified by confirmation of name and date of . Chief Complaint Patient presents with Follow Up 6 month follow up. Pt experiencing tingling in both feet and swelling in L ankle for a while. Reports no injury or pain. documented in this encounter Plan of Treatment Upcoming Encounters Date Type Department Care Team (Late st Contact Info) Description 07/13/2024 1:40 PM EST Office [facility] [place] [address] Danielle Burns DPM [address] [place] [address] 09/09/2024 1:20 PM EST Office Visit Dermatology [facility] [address] [place] [phone] Ran Millan PA-C [address] [place] [address] 09/30/2024 1:00 PM EDT Office Visit Pharmacy, Sharon [address] [phone] Glenna [facility] [address] [place], [place] [address] [address] 11/25/2024 2:20 PM EDT Office Visit Family Practice, [address] [phone] Case House MD [address] [place] [address] Scheduled Orders Name Type Priority Associated Diagnoses Orde r Schedule HEMOGLOBIN A1C Lab Routine Type 2 diabetes mellitus with polyneuropathy (HCC) Expected: 06/13/2024 (Approximate), Expires: 06/13/2025 BASIC METABOLIC PANEL Lab Routine Type 2 diabetes mellitus with polyneuropathy (HCC) Expected: 06/13/2024 (Approximate), Expires: 06/13/2025 ALBUMIN / CREATININE RATIO, URINE Lab Routine Type 2 diabetes mellitus with polyneuropathy (HCC) Expected: 06/13/2024 (Approximate), Expires: 06/13/2025 Health Maintenance Due Date Last Done Comments Adult Wellness Visit 02/27/2020 02/26/2019 Depression Screening 04/25/2023 04/25/2022, 09/30/2017, 09/13/2014 (Discussed) CKD PHOS USE SMARTSET 91634 11/19/202311/04, 03/13/2021, 01/30/2021, Additional history exists Diabetic Eye Exam 01/10/2024 01/09/2023, , 12/31/2019, Additional history exists COVID-19 Vaccine ( season) 2024 06/04/2022, 10/17/2020, 09/19/2020 CKD HGB USE SMARTSET 12824 04/25/202404/25, 06/18/2022, 06/11/2022, Additional history exists Diabetic [...] Diagnoses Diagnosis Type 2 diabetes mellitus with polyneuropathy (HCC)- Primary Type II or unspecified type diabetes mellitus with neurological manifestations, not stated as uncontrolled Dyslipidemia, goal LDL below 70 Other and unspecified hyperlipidemia HTN, goal below 150/90 Primary osteoarthritis involving multiple joints Anxiety state Anxiety state, unspecified documented in [...] and were consensually agreed upon. Care Teams Project Manager Relationship Specialty Start Date End Date Case House MD [address] [place] [address] PCP - General Family Medicine 03/22/21 documented as of this encounter
--- OUTSIDE RECORDS SUMMARY | 2024-08-31 18:21 | External Medical Summary | Summary of Care ---
Author Name Unknown Organization [facility] Address [address] [facility] [place] [address] Phone [phone] Care Team Providers Care Supervisor Ore Dressing Name Role Phone Case House MD Primary Care Provider +1- [phone] Reason for Visit * Reason Comments Outpatient Testing Encounter Details Date Type Department Care Team (Late st Contact Info) Description 07/08/2024 12:30 PM [facility] [phone] [address] Right foot pain; Type 2 diabetes mellitus with polyneuropathy (HCC) [...] as directed. Freestyle Zabrina 2 supplied by [email or web address] Active Lidocaine 4 % External Patch (Aspercreme) [...] trulicity 9 mL 4 4 Active Nystatin 209401 UNIT/GM External Powder (Nystop) Apply topically to [...] reflux disease without esophagi tis 07/12/2019 Old [place] (myocardial infarction) 07/12/2019 Type 2 diabetes mellitus [...] mRNA, LNP-s, No Pre serve, 2-Dose Series ([email or web address]) 10/17/2020,09/19/2020 Covid-19, Mrna, Lnp-s, Pf, B ivalent, [...] 07/13/2024 1:40 PM EST Office Visit Podiatry [facility] [address] [facility] [place] [address] Danielle Burns DPM [address] [place] [address] 09/09/2024 1:20 PM EST Office [facility] [address] [place] [phone] Ran Millan PA-C [address] [place] [address] 09/30/2024 1:00 PM EDT Office Visit Pharmacy, Glenna [facility] [address] [place] [phone] Glenna [facility] [address] [facility] [place] [address] 11/25/2024 2:20 PM EDT Office Visit Family Practice, Glenna Begumryan Mckeon [address] [place] [phone] Case House MD [address] [place] [address] Pending Results Name Type Priority Associated Diagnoses Date /Time URIC ACID Lab Routine Right foot pain 07/08/2024 12:48 PM EST HEMOGLOBIN A1C Lab Routine Type 2 diabetes mellitus with polyneuropathy (HCC) 07/08/2024 12:48 PM EST BASIC METABOLIC PANEL Lab Routine Type 2 diabetes mellitus with polyneuropathy (HCC) 07/08/2024 12:48 PM EST Health Maintenance Due Date Last Done Comments Adult Wellness Visit 02/27/2020 02/26/2019 Depression Screening 04/25/2023 04/25/2022, 09/30/2017, 09/13/2014 (Discussed) CKD PHOS USE SMARTSET 89601 11/19/202311/04, 03/13/2021, 01/30/2021, Additional history exists Diabetic Eye Exam 01/10/2024 01/09/2023, , 12/31/2019, Additional history exists COVID-19 Vaccine ( season) 2024 06/04/2022, 10/17/2020, 09/19/2020 CKD HGB USE SMARTSET 25767 04/25/202404/25, 06/18/2022, 06/11/2022, Additional history exists Diabetic [...] this encounter Visit Diagnoses Diagnosis Right foot pain Pain in limb Type 2 diabetes mellitus [...] and were consensually agreed upon. Care Teams Supervisor Ore Dressing Relationship Specialty Start Date End Date Case House MD [address] [place] [address] PCP - General Family Medicine 07/08/24 documented as of this encounter
--- OUTSIDE RECORDS SUMMARY | 2024-08-31 18:21 | External Medical Summary ---
Author Name Unknown Address Unknown Organization K01:[facility] [place] [facility] [address] [facility] [address] Laboratory Report Ordering Provider Test Date Status ALLEN DESAI 07/08/2024 12:48:37 Final Observation Date Value Abnormality Reference (Units ) Status HbA1C 07/08/2024 12:48:37 7.3 Above high normal 4. 0-5.6 (%) Final The use of HbA1c to monitor glycemic status is based on normal hemoglobin and HbA composition. This test should not be used in patients with abnormal hemoglobin that affects the half life of the red blood cell or the in vivo glycation rates. Glucose, estimated average 07/08/2024 12:48:37 163 Above high normal <126 (mg/dL) Tj chi Performing Location [facility] - [address] [facility] [place] [facility] [address]
--- OUTSIDE RECORDS SUMMARY | 2024-08-31 18:21 | External Medical Summary | Summary of Care ---
Author Name Unknown Organization [facility] Address [address] , [place] Care Team Providers Care Ceiling Insulation Blower Name Role Phone Case House MD Primary Care Provider [phone]- [phone] Reason for Visit * Reason Onset Date Comments Advice 07/05/2024 Encounter Details Date Type Department Care Team (Late st Contact Info) Description 07/05/2024 Telephone Pharmacy, [facility] [address] [facility] [place] [address] [facility] [address] [facility] [place] [id number] Advice Allergies Active Allergy Reactions Criticality Noted Date [...] as directed. Freestyle Zabrina 2 supplied by [employer] Active Lidocaine 4 % External Patch (Aspercreme) [...] trulicity 9 mL 4 4 Active Nystatin 603293 UNIT/GM External Powder (Nystop) Apply topically to affected area daily. Apply to groin area as needed. 15 g 5 4 Active Insulin Glargine-yfgn 100 UNIT/ML Subcutaneous Solution Pen-injector (Semglee (yfgn))Indication s:Type 2 diabetes mellitus with hemoglobin A1c goal of less than 8.0% (HCC) Inject 36 units under the skin once daily 45 mL 3 4 Active Jardiance 10 MG Oral Tablet [...] THREE TIMES DAILY 90 Capsule 4 Active documented as of this encounter [...] mRNA, LNP-s, No Pre serve, 2-Dose Series ([place]) 10/17/2020,09/19/2020 Covid-19, Mrna, Lnp-s, Pf, B ivalent, [...] Encounter - Barbie Torrez RPh - 07/05/2024 11:17 AM EST Patient Phone Numbers Returned call to Chance. LMOM requesting Chance provide which insulin the insurance will cover. Once I know that, I can send a script to the pharmacy. Barbie Torrez, PharmD, BCACP Clinical Pharmacist Medication Therapy Disease Management 07/05/2024, 11:19 AM * Telephone Encounter - Maribel Garcia CPhT - 07/05/2024 8:51 AM EST Caller's name: Chance Preferred call back number(OFFICE NUMBER FOR ): [phone] Reason for call: requesting a call from Barbie stating patient's insurance will no longer cover the Semglee in 2024. Maribel Garcia CPhT, [place] Oil Tester II [facility] (formerly [facility]) [address] [facility] [phone] [place] [address] ext [phone] documented in this encounter Plan of Treatment Upcoming Encounters Date Type Department Care Team (Late st Contact Info) Description 07/13/2024 1:40 PM EST Office Visit Podiatry [facility] [address] [place] [address] Danielle Burns DPM [address] [place] [address] 09/09/2024 1:20 PM EST Office Visit Dermatology [facility] [address] [place] [phone] Ran Millan PA-C [address] [place] [address] 09/30/2024 1:00 PM EDT Office Visit Pharmacy, [facility] [address] [facility] [place] [phone] [facility] [address] [place] [address] [place] [address] 11/25/2024 2:20 PM EDT Office Visit [facility] Practice, [place] [facility] [address] [facility] [place] [phone] Case House MD [address] [facility] [place] [address] Health Maintenance Due Date Last Done Comments Adult Wellness Visit 02/27/2020 02/26/2019 Depression Screening 04/25/2023 04/25/2022, 09/30/2017, 09/13/2014 (Discussed) CKD PHOS USE SMARTSET 00796 11/19/202311/04, 03/13/2021, 01/30/2021, Additional history exists Diabetic Eye Exam 01/10/2024 01/09/2023, , 12/31/2019, Additional history exists COVID-19 Vaccine ( season) 2024 06/04/2022, 10/17/2020, 09/19/2020 CKD HGB USE SMARTSET 35071 04/25/202404/25, 06/18/2022, 06/11/2022, Additional history exists Diabetic [...] and were consensually agreed upon. Care Teams Ceiling Insulation Blower Relationship Specialty Start Date End Date Case House MD PCP - General Family Medicine 03/22/21 documented as of this encounter
--- OUTSIDE RECORDS SUMMARY | 2024-08-31 18:22 | External Medical Summary | Summary of Care ---
Author Name Unknown Organization [facility] Address [address] [place] [address] Phone [phone] Care Team Providers Care Software Sales Manager Name Role Phone Case House MD Primary Care Provider [phone]- [phone] Reason for Visit * Reason Onset Date Comments [facility] 05/31/2024 Encounter Details Date Type Department Care Team (Late st Contact Info) Description 05/31/2024 Telephone [facility] [address], [place] [id number] Program, Stair [address] [place] [address] [facility] Allergies Active Allergy Reactions Criticality Noted Date Comments Ciprofloxacin 05/27/2022 tendonitis Oxycodone Other (Please comment) 01/29/2016 Mental problems, confusion Other reaction(s): SEDATION Tramadol 10/28/2023 Difficult to arouse after taking medication documented as of this encounter (statuses as of 05/31/2024) Medications COENZYME Q-10 100 MG PO CAPS 1 CAPSULE DAILY 3 Active SonicPollenON U4EAA GLUCOSE SYSTEM W/DEVICE KIT Use as directed [...] as directed. Freestyle Zabrina 2 supplied by [employer] Active Lidocaine 4 % External Patch (Aspercreme) [...] trulicity 9 mL 4 4 Active Nystatin 604372 UNIT/GM External Powder (Nystop) Apply topically to [...] as of this encounter (statuses as of 05/31/2024) Active Problems Problem Noted Date Diagnosed Date [...] reflux disease without esophagi tis 07/12/2019 Old DC (myocardial infarction) 07/12/2019 Type 2 diabetes mellitus [...] as of this encounter (statuses as of 05/31/2024) Resolved Problems Problem Noted Date Diagnosed Date [...] as of this encounter (statuses as of 05/31/2024) Immunizations Name Administration Dates Next Due COVID-19 [...] encounter Miscellaneous Notes * Telephone Encounter - Chad Guzman CRNP - 05/31/2024 11:14 AM EST I reviewed 05/23/22 CT. Please repeat duplex in 1 year. CAROLYN Zuniga 05/31/2024 11:14 AM * Telephone Encounter - Catie Beyer LPN - 05/31/2024 11:11 AM EST AAA - Clarification Please clarify AAA reading in the report below and respond back. Should patient keep 2 year care plan? [facility] AORTIC DUPLEX EVAL-COMPLETE 05/31/2024 Narrative VASCULAR LAB RESULTS DATE OF EXAM: 05/31/24 PRESENTING CONDITIONS: AAA Immediately before proceeding with the vascular lab procedure reported below, the identity of the patient, the correct exam and the correct procedural site were verified. Aldrich scale, color flow and spectral doppler were performed for this examination. PHYSICIAN REPORT: Abdominal Aorta Duplex Examination. Spectral Doppler demonstrates evidence of normal waveforms of the abdominal aorta. Peak systolic velocity measurements of the aorta are 58.1 centimeters per second. The maximum diameter of the proximal abdominal aorta measures 1.9 centimeters by 1.9 centimeters. The maximum diameter of the mid abdominal aorta measures 1.9 centimeters by 1.9 centimeters. The maximum diameter of the distal abdominal aorta was not visualized. The maximum diameter of the proximal right common iliac artery was not visualized. The maximum diameter of the proximal left common iliac artery was not visualized. Impression : Limited exam due to overlying bowel gas. If clinically indicated, alternative imaging is suggested to further evaluate the abdominal aorta. There is no evidence of an abdominal aortic aneurysm within the visualized portion of the vessel. documented in this encounter Plan of Treatment Upcoming Encounters Date Type Department Care Team ([facility] st Contact Info) Description 07/13/2024 1:40 PM EST Office Visit Podiatry [facility] [address] [place] [address] Danielle Burns DPM [address] [facility] [place] [address] 09/09/2024 1:20 PM EST Office Visit Dermatology [facility] [address] [place] [phone] Ran Millan PA-C [address] [place] [address] 09/30/2024 1:00 PM EDT Office Visit Pharmacy, [facility] [address] [facility] [place] [phone] [facility] [address] [place], [place] [address] [address] 11/25/2024 2:20 PM EDT Office Visit Family Practice, [facility] [address] [place] [phone] Case House MD [address] [facility] [place] [address] Health Maintenance Due Date Last Done Comments Adult Wellness Visit 02/27/2020 02/26/2019 Depression Screening 04/25/2023 04/25/2022, 09/30/2017, 09/13/2014 (Discussed) CKD PHOS USE SMARTSET 91555 11/19/202311/04, 03/13/2021, 01/30/2021, Additional history exists COVID-19 Vaccine ( season) 2024 06/04/2022, 10/17/2020, 09/19/2020 CKD HGB USE SMARTSET 87947 04/25/202404/25, 06/18/2022, 06/11/2022, Additional history exists Diabetic Eye Exam 06/01/2024 01/09/2023, , 12/31/2019, Additional history exists Postponed from 01/10/2024 (Unavailable) Diabetic Foot Exam 08/08/2024 08/08/2023, 1 07/16/2019, [...] 12/20/2023, 10/15/2023 Influenza Vaccine (FLU shot) Completed 04/02/2024, 03/18/2023, 04/19/2022, Additional history exists HPV (Gardasil) [...] and were consensually agreed upon. Care Teams Software Sales Manager Relationship Specialty Start Date End Date Case House MD [address] [facility] [place] [address] PCP - General Family Medicine 03/22/21 documented as of this encounter
--- OUTSIDE RECORDS SUMMARY | 2024-08-31 18:22 | External Medical Summary | Summary of Care ---
Author Name Unknown Organization [facility] Address [address] [address] Phone [phone] Care Team Providers Care Animal Laboratory Helper Name Role Phone Lloyd Villa MD Primary Care Provider [phone]- [phone] Reason for Visit * Reason Comments eRx-Medication Refill Encounter Details Date Type Department Care Team (Late st Contact Info) Description 05/03/2024 Refill [facility] [address] [place] [address] Lloyd Villa MD [address] [place] [address] Anxiety state Allergies Active Allergy Reactions Criticality Noted Date Comments Ciprofloxacin 05/27/2022 tendonitis Oxycodone Other (Please comment) 01/29/2016 Mental problems, confusion Other reaction(s): SEDATION Tramadol 10/28/2023 Difficult to arouse after taking medication documented as of this encounter (statuses as of 05/04/2024) Medications Medication Sig Dispensed Refills Start Date End Date Status COENZYME Q-10 100 MG PO CAPS 1 CAPSULE DAILY 10/12/2012 Active RELION ULTIMA GLUCOSE SYSTEM W/DEVICE KIT Use as directed to monitor blood sugar Active Valerian Root 100 MG CAPS Take 1 Tab by mouth once. 1 Cap 0 09/27/2015 Active Vitamin B-12 500 MCG Oral Tablet (vitamin B-12) Take 1 Tablet by mouth in the morning and 1 Tablet at noon and 1 Tablet before bedtime. Active Vitamin B Complex Oral Tablet 1 tab, Tab, Oral, Daily, 30 tab, 0 Refill(s) 03/09/2021 Active Fish Oil 1000 MG Oral Capsule Take 1 Capsule by mouth in the morning. Active Magnesium 250 MG Oral Tablet Take 1 Tablet by mouth in the morning. Active Excedrin Extra Strength 250-250-65 MG Oral Tablet (Aspirin-Acetamino phen-Caffeine) Take 1 Tablet by mouth every 6 hours as needed. Active FreeStyle Zabrina 2 Sensor Use as directed. Freestyle Zabrina 2 supplied by [employer] Active Lidocaine 4 % External Patch (Aspercreme) Place 1 Patch over 12 hours topically on the skin daily. 30 Patch 11 04/22/2023 Active Triamcinolone Acetonide 0.1 % External Cream (Aristocort) Apply topically to affected area 2 times a day. To affected area. 80 g 5 04/24/2023 Active BD Pen Needle Kaci 2nd Gen 32G X 4 MM (Insulin Pen Needle)Indications :Type 2 diabetes mellitus with hemoglobin A1c goal of less than 8.0% (HCC) Use to inject insulin once daily. 100 Each 3 06/26/2023 Active DuoDERM CGF Dressing External Apply 1 Each topically to affected area in the morning. 20 Each 3 08/08/2023 Active Dicyclomine HCl 10 MG Oral Capsule (Bentyl)Indication s:Diverticulosis of large intestine without hemorrhage TAKE 1 CAPSULE BY MOUTH 4 TIMES DAILY NEEDED FOR ABDOMINAL PAIN 120 Capsule 5 09/09/2023 Active metFORMIN HCl ER 750 MG Oral Tablet Extended Release 24 Hour (Glucophage XR)Indications:Typ e 2 diabetes mellitus with stage 3a chronic kidney disease, without long-term current use of insulin (HCC) TAKE 1 TABLET BY MOUTH IN THE MORNING AND 1 TAB AT BEDTIME 180 Tablet 3 09/16/2023 Active Omeprazole 20 MG Oral Capsule Delayed Release (PriLOSEC)Indicati ons:Gastroesophage al reflux disease without esophagitis TAKE 1 CAPSULE BY MOUTH BEFORE BREAKFAST 90 Capsule 3 09/26/2023 Active Shingrix 50 MCG/0.5ML Intramuscular Suspension Reconstituted (Zoster Vac Recomb Adjuvanted)Indicat ions:Type 2 diabetes mellitus with hemoglobin A1c goal of less than 8.0% (HCC),Need for vaccination for zoster Inject 0.5 mL into a large muscle now and repeat dose in 60 to 180 days 1 Each 1 09/26/2023 Active hydroCHLOROthiazid e 25 MG Oral Tablet (Hydrodiuril) Take 1 tablet by mouth once daily 30 Tablet 5 12/15/2023 Active Ozempic (2 MG/DOSE) 8 MG/3ML Subcutaneous Solution Pen-injector (Semaglutide (2 MG/DOSE))Indicatio ns:Type 2 diabetes mellitus with hemoglobin A1c goal of less than 8.0% (HCC) Inject 2 mg once weekly- this replaces trulicity 9 mL 4 12/30/2023 Active Nystatin 522669 UNIT/GM External Powder (Nystop) Apply topically to affected area daily. Apply to groin area as needed. 15 g 5 04/02/2024 Active Insulin Glargine-yfgn 100 UNIT/ML Subcutaneous Solution Pen-injector (Semglee (yfgn))Indications :Type 2 diabetes mellitus with hemoglobin A1c goal of less than 8.0% (HCC) Inject 36 units under the skin once daily 45 mL 3 04/13/2024 Active Pregabalin 150 MG Oral Capsule (Lyrica) TAKE 1 CAPSULE BY MOUTH THREE TIMES DAILY 90 Capsule 1 04/20/2024 Active Jardiance 10 MG Oral Tablet (Empagliflozin) TAKE 1 TABLET BY MOUTH ONCE DAILY IN THE MORNING 90 Tablet 1 04/26/2024 Active Atorvastatin Calcium 40 MG Oral Tablet (Lipitor)Indicatio ns:Dyslipidemia, goal LDL below 100 TAKE 1 TABLET BY MOUTH ONCE DAILY AT BEDTIME 90 Tablet 1 04/26/2024 Active LORazepam 0.5 MG Oral Tablet (Ativan)Indication s:Anxiety state TAKE 1 TABLET BY MOUTH THREE TIMES DAILY NEEDED FOR ANXIETY 90 Tablet 05/04/2024 Active LORazepam 0.5 MG Oral Tablet (Ativan)Indication s:Anxiety state TAKE 1 TABLET BY MOUTH THREE TIMES DAILY NEEDED FOR ANXIETY 90 Tablet 03/10/2024 05/04/20 24 Discontinued documented as of this encounter (statuses as of 05/04/2024) Active Problems Problem Noted Date Diagnosed Date [...] reflux disease without esophagi tis 07/12/2019 Old CO (myocardial infarction) 07/12/2019 Type 2 diabetes mellitus with polyneuropathy 08/2018 Prolapse of vaginal vault after hysterectomy Rectocele 03/20/2018 Nephrolithiasis 05/23/2017 Primary osteoarthritis involving multiple joints 09/26/2016 HTN, goal below 150/90 11/23/2015 LVH (left ventricular hypertrophy) 10/05/2015 Diastolic dysfunction 10/05/2015 Anxiety state 08/02/2014 Vitamin D deficiency 09/30/2011 Rosacea 09/28/2007 Type 2 diabetes mellitus wit h hemoglobin A1c goal of less than 8.0% Overview: ICD-10 update of inactive term Dyslipidemia, goal LDL below 70 documented as of this encounter (statuses as of 05/04/2024) Resolved Problems Problem Noted Date Diagnosed Date Resolved Date Type 2 diabetes mellitus wit h stage 3b chronic kidney disease, without long-term current use of insulin 08/08/2023 08/21/2023 Stage 3a chronic kidney disease 10/07/2022 10/17/2022 Aneurysm of aorta 06/14/2022 11/18/2022 Overview: 3.1 cm AAA noted on CT abd/pel [...] CKD protocol Advanced directives, counseling/discussion 08/21/2018 01/08/2019 Overview: Do you have an Advance Directive for Health Care? no Kidney disease, chronic, sta ge III (GFR 30-59 ml/min) 08/17/2018 10/14/2018 Overview: Per CKD protocol #1 Constipation 03/31/2017 09/30/2017 Dysuria 12/18/2016 03/31/2017 Urinary frequency 12/18/2016 03/31/2017 Open wound of finger of left hand 10/23/2016 03/31/2017 Obesity, Class I, BMI 30.0-3 4.9 (see actual BMI) 09/26/2016 03/31/2017 Overview: bmi= 33.13 09/26/16 Diverticulitis of colon 01/29/201609/05 Lower GI bleed 01/29/2016 09/26/2016 Abnormal electrocardiogram 09/27/2015 0 12/04/2017 Obesity, Class II, BMI 35-39 .9, isolated (see actual BMI) 03/28/2015 11/18/2022 Overview: bmi= 36.27 03/28/15 Need for pneumococcal vaccination 03/28/2015 09/26/2016 HTN, goal below 140/90 10/05/201411/22 Viral stomatitis 08/02/2014 09/26/2016 Burning tongue syndrome 08/02/201409/05 Shortness of breath 05/12/2014 09/27/19 17 Elevated blood pressure, situational 05/12/2014 09/13/2014 Diarrhea 05/12/2014 09/26/2016 Severe obesity with body mas s index (BMI) of 35.0 to 39.9 with serious comorbidity 04/13/2014 Overview: bmi= 36.76 04/13/14 ICD-10 update of inactive diagnosis Urine malodor 04/13/2014 09/26/2016 Intertrigo 10/18/2013 03/31/2017 Severe obesity with body mas s index (BMI) of 35.0 to 39.9 with serious comorbidity 09/06/2013 Overview: bmi= 36.48 09/06/13 ICD-10 update of inactive diagnosis HTN, goal below 140/80 09/06/201310/05 Menopause 04/16/2013 12/04/2017 Obesity, Class I, BMI 30.0-3 4.9 (see actual BMI) 11/02/2012 09/26/2016 Overview: bmi= 34.07 11/02/12 Sleep disturbance 11/02/2012 09/26/2016 Foot pain 11/02/2012 09/26/2016 Obesity, Class I, BMI 30.0-3 4.9 (see actual BMI) 04/02/2012 09/26/2016 Overview: BMI= 33.81 04/02/12 Need for shingles vaccine 04/02/2012 Cerebral atherosclerosis 04/02/201212/2019 Other screening mammogram 04/02/2012 HTN, goal below 140/80 02/24/201209/06 Overview: Per HTN Protocol #27. Obesity, Class I, BMI 30.0-3 4.9 (see actual BMI) 09/30/2011 09/26/2016 Overview: bmi= 34.84 09/30/11 DM type 2 causing [...] goal of less than 7.0% 11/15/2010 09/30/2011 Overview: ICD-10 update of inactive term Vitamin D deficiency 02/14/2010 012 Diabetic polyneuropathy 02/14/201009/05 Overview: ICD-10 update of inactive term OBESITY, BMI 30-34 (SEE ACTUAL BMI) 09/28/2009 09/26/2016 Overview: Per Obesity Taxonomy Overweight (BMI 25.0-29.9) 09/26/2009 1 Dyslipidemia, goal LDL below 100 06/20/2009 09/30/2011 Overview: Per Lipid Taxonomy. HTN, goal below 130/80 05/24/200902/26 Headache 05/08/2009 04/13/2014 Overview: ICD-10 update of inactive term DM type 2, not at goal 02/20/200904/01 HYPERGLYCEMIA 02/15/2009 03/29/2009 Abnormal results of liver function studies 11/24/2008 04/13/2014 Cerebrovascular disease, art eriosclerotic, post-stroke 10/18/2008 04/02/2012 Overview: Modified per CVA protocol #8 Routine medical exam 07/26/2008 014 Special screening for malign ant neoplasms, colon 07/26/2008 11/17/2008 Overview: Resolved per Screening Diagnosis Protocol #6 Other chronic allergic conjunctivitis 01/19/2008 04/13/2014 Other atopic dermatitis 01/19/200809/05 Overview: ICD-10 update of inactive term Seborrheic dermatitis 09/28/20072016 Overview: ICD-10 update of inactive term Adjustment disorder with depressed mood 07/30/2007 09/30/2011 Malaise and fatigue 07/30/2007 04/13/20 14 Cerebrovascular event, ill-d efined, within last 8 weeks 07/30/2007 10/20/2008 Overview: Modified per CVA protocol #8 Diverticulosis of colon 02/2014 Internal hemorrhoids 014 Benign neoplasm of colon 02/2014 HTN, goal below 140/90 09/26 Esophageal reflux 04/13/2014 Diverticulosis of colon 11/2008 Overview: Resolved per Duplicate Protocol #2. Dyslipidemia, goal to be determined 06/20/2009 Overview: Per Lipid Taxonomy. Allergic rhinitis 04/13/2014 Aortic aneurysm 11/24/2008 Generalized osteoarthritis 0 09/30/2011 Overview: krystyna back-- uses chiropracter Calculus of ureter 4 Postmenopausal atrophic vaginitis 04/13/2014 Obesity, BMI not known 09/28 Overview: Per Obesity Taxonomy Type 1 diabetes mellitus wit h hemoglobin A1c goal of 7.0%-8.0% 04/16/2013 Overview: ICD-10 update of inactive term documented as of this encounter (statuses as of 05/04/2024) Immunizations Name Administration Dates Next Due COVID-19 mRNA, LNP-s, No Pre serve, 2-Dose Series ([employer]) 10/17/2020,09/19/2020 Covid-19, Mrna, Lnp-s, Pf, B ivalent, [...] money to get more. Never true 11/18/2022 Utilities Answer Date Recorded Do you have trouble paying y our heating, water, or electric bill? (Adult - for ages 18 years and over) Not on file 12/23/2023 Is your family able to pay t he heat, water, or electric bill? (Household - for ages 0-17 years) Not on file 12/23/2023 Does your family have access to good internet? (Household - for ages 0-17 years) Not on file 12/23/2023 Social Connections Answer Date Recorded How often do you feel lonely or isolated from those around you? (Adult - for ages 18 years and over) Not on file 12/23/2023 Sex and Gender Information Value Date Recorded Sex Assigned at Female 02/26/2019 9:45 AM EDT Gender Identity Female 02/26/2019 9:45 AM EDT Sexual Orientation Not on file Job Start Date Occupation Industry Not on file Not on file Not on file documented as of this encounter Miscellaneous Notes * Telephone Encounter - Lloyd Villa MD - 05/04/2024 5:02 PM EDTSigned Prescriptions: Disp Refills LORazepam 0.5 MG Oral Tablet (Ativan) 90 Tab*0 Sig: TAKE 1 TABLET BY MOUTH THREE TIMES DAILY NEEDED FOR ANXIETYAuthorizing Provider: LLOYD VILLA * Telephone Encounter - Shay Palmer RP - 05/04/2024 3:53 PM EDTPending Prescriptions: Disp Refills LORazepam 0.5 MG Oral Tablet 90 Tab*0 Sig: TAKE 1 TABLET BY MOUTH THREE TIMES DAILY NEEDED FOR ANXIETY * Telephone Encounter - Shay Palmer [facility] - 05/04/2024 3:52 PM EDT I have reviewed the patients controlled substance dispensing history in the Prescription Drug Monitoring Program in compliance with the [facility] regulations before prescribing a controlled substance. PDMP checked on 05/04/2024. Pending Prescriptions: Disp Refills LORazepam 0.5 MG Oral Tablet 90 Tab*0 Sig: TAKE 1 TABLET BY MOUTH THREE TIMES DAILY NEEDED FOR ANXIETY Last Visit: 10/28/2023 (in office), Visit date not found (telemedicine) Next Visit: 05/25/2024 Date medication was last filled: 03-11-24 Date medication is due for refill: 04-09-24 Pharmacy: [facility] [address] [address] [address] Is this request for a controlled substance? and Urine Drug Screen Not completed Toxicology results: No results found. However, due to the size of the patient record, not all encounters were searched.Please check Results Review for a complete set of results. Please approve if appropriate. Muriel Day.Ph. Clinical Pharmacist [facility] [address] [place] [address], [address] [place] [address]: [phone] 05/04/2024,3:52 PM documented in this encounter Plan of Treatment Upcoming Encounters Date Type Department Care Team (Late st Contact Info) Description 05/25/2024 1:20 PM EST Office Visit [facility] [address] [place] [address] Lloyd Villa MD [address] [facility] [place] [address] 05/31/2024 9:30 AM EST Imaging Vascular Lab, [facility] 2nd Floor, [address] [place] [address] 07/13/2024 1:40 PM EST Office Visit Podiatry [facility] [address] [address] Danielle Burns, PARMJIT [address] [address] 09/09/2024 1:20 PM EST Office Visit Dermatology [facility] [address] [place] [phone] Ran Millan PA-C [address] [place] [address] 09/30/2024 1:00 PM EDT Office Visit Pharmacy, [place] [address] [place] [address] [place], [facility] [address] [place] [address] Health Maintenance Due Date Last Done Comments Adult Wellness Visit 02/27/2020 02/26/2019 Depression Screening 04/25/2023 04/25/2022, 09/30/2017, 09/13/2014 (Discussed) B-12 08/12/2023 08/12/2022, 01/05, 08/11/2018, Additional history exists CKD PHOS USE SMARTSET 52319 11/19/202311/04, 03/13/2021, 01/30/2021, Additional history exists Diabetic Eye Exam 01/10/2024 01/09/2023, , 12/31/2019, Additional history exists COVID-19 Vaccine ( season) 2024 06/04/2022, 10/17/2020, 09/19/2020 GFR 03/07/2024 09/05/2023, 04/07, 11/18/2022, Additional history exists HbA1c 03/07/2024 09/05/2023, 04/07, 11/18/2022, Additional history exists Mammogram 03/25/2024 03/25/2023, 08/07, 08/24/2021, Additional history exists CKD HGB USE SMARTSET 74936 04/25/202404/25, 06/18/2022, 06/11/2022, Additional history exists Diabetic Foot Exam 08/08/2024 08/08/2023, 1 07/16/2019, 04/08/2018, Additional history exists Albumin/Creatinine Ratio 09/04/2024 024, 08/12/2022, 04/25/2022, Additional history exists DXA Scan 07/23/2025 07/23/2022, [...] and were consensually agreed upon. Care Teams Animal Laboratory Helper Relationship Specialty Start Date End Date Lloyd Villa MD [address], [place] [phone] PCP - General Family Medicine 03/22/21 documented as of this encounter
--- OUTSIDE RECORDS SUMMARY | 2024-08-31 18:22 | External Medical Summary ---
Author Name Unknown Address Unknown Organization [id number]:[place] [facility] [place] [address] [place] [address] Laboratory Report Ordering Provider Test Date Status ALLEN DESAI 05/25/2024 12:15:44 Final Observation Date Value Abnormality Reference (Units ) Status ALT (Alanine aminotransferase) 05/25/2024 12:15:44 32 10-35 (U/L) Final Performing Location [facility] - [address] [place] [address]
--- OUTSIDE RECORDS SUMMARY | 2024-08-31 18:22 | External Medical Summary | Summary of Care ---
Author Name Unknown Organization [facility] Address [address] [place] [address] Phone [phone] Care Team Providers Care Engineering Manager Name Role Phone Case House MD Primary Care Provider [phone]- [phone] Reason for Visit * Reason Onset Date Comments STAIR AAA 05/31/2024 Encounter Details Date Type Department Care Team (Late st Contact Info) Description 05/31/2024 Telephone ST[facility]IR [facility] [address] [place], [place] [id number] Program, Stair [address] [place] [address] STAIR [facility] Allergies Active Allergy Reactions Criticality Noted Date Comments Ciprofloxacin 05/27/2022 tendonitis Oxycodone Other (Please comment) 01/29/2016 Mental problems, confusion Other reaction(s): SEDATION Tramadol 10/28/2023 Difficult to arouse after taking medication documented as of this encounter (statuses as of 05/31/2024) Medications COENZYME Q-10 100 MG PO CAPS 1 CAPSULE DAILY 3 Active DriverSideON Callio TechnologiesA GLUCOSE SYSTEM W/DEVICE KIT Use as directed [...] as directed. Freestyle Zabrina 2 supplied by [employer] Active Lidocaine 4 % External Patch (Aspercreme) [...] trulicity 9 mL 4 4 Active Nystatin 765553 UNIT/GM External Powder (Nystop) Apply topically to [...] reflux disease without esophagi tis 07/12/2019 Old PR (myocardial infarction) 07/12/2019 Type 2 diabetes mellitus [...] encounter Miscellaneous Notes * Telephone Encounter - Catie Beyer LPN - 05/31/2024 11:34 AM EST AAA - Clinical Summary Name: Thuy Vargas Age: [age] year old AAA Review: Follow-up Follow-up Encounter Provider: N/A Patient Identified by: NLP Report Imaging Interpretation: Duplex Type of Result: AAA 3.0 to 3.9 cm AAA Care Plan Imaging Recommendation: Aortic Duplex - details below Details: in 1 year AAA Care Plan Visit Recommendation: No Visit needed Details: None Next steps: Notify patient. Time spent: 20 minutes AAA - Communication to Patient Patient contacted, recommendations reviewed, patient agrees, follow-up letter sent. PCP FYI Spoke to , made aware of 1 year recommendation. Catie Beyer LPN Coordinator STAIR (System to Track Abnormalities of Importance Reliably) [facility] AORTIC DUPLEX EVAL-COMPLETE 05/31/2024 Narrative VASCULAR LAB [...] within the visualized portion of the vessel. * Telephone Encounter - Chad Guzman CRNP - 05/31/2024 11:14 AM EST I reviewed 05/23/22 CT. Please repeat duplex in 1 year. CAROLYN Zuniga 05/31/2024 11:14 AM * Telephone Encounter - Catie Beyer LPN - 05/31/2024 11:11 AM EST AAA - Clarification Please clarify AAA reading in the report below and respond back. Should patient keep 2 year care plan? VASC AORTIC DUPLEX EVAL-COMPLETE 05/31/2024 Narrative VASCULAR LAB [...] 1:40 PM EST Office Visit Podiatry [facility] [address] [place] [address] Danielle Burns DPM [address] [facility] [place] [address] 09/09/2024 1:20 PM EST Office Visit Dermatology [facility] [address] [place] [address] Ran Millan PA-C [address] [place] [address] 09/30/2024 1:00 PM EDT Office Visit Pharmacy, [facility] [place] [phone] [facility] [address] [place], [place] [address] [address] 11/25/2024 2:20 PM EDT Office Visit Family Practice, [facility] [address] [phone] Case House MD [address] [place] [address] Health Maintenance Due Date Last Done Comments Adult Wellness Visit 02/27/2020 02/26/2019 Depression Screening 04/25/2023 04/25/2022, 09/30/2017, 09/13/2014 (Discussed) CKD PHOS USE SMARTSET 07711 11/19/202311/04, 03/13/2021, 01/30/2021, Additional history exists COVID-19 Vaccine ( season) 2024 06/04/2022, 10/17/2020, 09/19/2020 CKD HGB USE SMARTSET 14591 04/25/202404/25, 06/18/2022, 06/11/2022, Additional history exists Diabetic [...] and were consensually agreed upon. Care Teams Engineering Manager Relationship Specialty Start Date End Date Case House MD [address] [place] [facility] [place] [address] PCP - General Family Medicine 03/22/21 documented as of this encounter
--- OUTSIDE RECORDS SUMMARY | 2024-08-31 18:22 | External Medical Summary ---
Author Name Unknown Address Unknown Organization K01:[facility] [place] [address] [place] [address] Laboratory Report Ordering Provider Test Date Status ALLEN DESAI 05/25/2024 12:15:44 Final Observation Date Value Abnormality Reference (Units ) Status LDL, (direct) 05/25/2024 12:15:44 58 <=129 (mg/dL) Final LDL Cholesterol Reference Ra nges (mg/dL):
<70 Target level for high risk ASCVD patient
<100 Optimal for general population
100-129 Near optimal for general population
130-159 Borderline high
160-189 High
>=190 Very high Performing Location [facility] - [address] [place] [address]
--- OUTSIDE RECORDS SUMMARY | 2024-08-31 18:22 | External Medical Summary ---
Author Name Unknown Address Unknown Organization K01:[facility]ORY [facility] [place] [address] [facility] [address] Laboratory Report Ordering Provider Test Date Status ALLEN DESAI 05/25/2024 12:15:44 Final Observation Date Value Abnormality Reference (Units ) Status Triglyceride 05/25/2024 12:15:44 186 Above high normal <=174 (mg/dL) Final Triglyceride Reference Range s (mg/dL):
<150 Acceptable
150-174 Borderline high
175-499 High
>=500 Very high Cholesterol 05/25/2024 12:15:44 128 <200 (mg /dL) Final Total Cholesterol Reference Ranges (mg/dL):
<200 Desirable
200-239 Borderline high
>=240 High HDL 05/25/2024 12:15:44 37 Below low normal >49 (mg/dL) Final HDL Cholesterol Reference Ra nges (mg/dL):
>=60 High (Desirable)
<50 Low (Undesirable) For Females
<40 Low (Undesirable) For Males NON-HDL CHOLESTEROL 05/25/2024 12:15:44 91 <=159 (mg/dL) Final Non-HDL Cholesterol Referenc e Range (mg/dL):
<100 Target level for high risk ASCVD patient
<130 Optimal for general population
130-159 Near optimal for general population
160-189 Borderline High
190-219 High
>=220 Very High Performing Location LAB[facility]ATORY [facility] [place] - [address] [place] [address]
--- OUTSIDE RECORDS SUMMARY | 2024-08-31 18:22 | External Medical Summary | Summary of Care ---
Author Name Unknown Organization [facility] Address [address] [address] Phone [phone] Care Team Providers Care Prop And Effects Designer Name Role Phone Lloyd Villa MD Primary Care Provider +1- [phone] Reason for Visit * Reason Comments eRx-Medication Refill Encounter Details Date Type Department Care Team (Late st Contact Info) Description 04/24/2024 Refill [facility] [address] [place] [address] Lloyd Villa MD [address] [place] [address] Dyslipidemia, goal LDL below 100 Allergies Active Allergy Reactions Criticality Noted Date Comments Ciprofloxacin 05/27/2022 tendonitis Oxycodone Other (Please comment) 01/29/2016 Mental problems, confusion Other reaction(s): SEDATION Tramadol 10/28/2023 Difficult to arouse after taking medication documented as of this encounter (statuses as of 04/26/2024) Medications Medication Sig Dispensed Refills Start Date [...] as directed. Freestyle Zabrina 2 supplied by [employer] Active Lidocaine 4 % External Patch (Aspercreme) [...] hemoglobin A1c goal of less than 8.0% ([facility]) Use to inject insulin once daily. 100 [...] replaces trulicity 9 mL 4 12/30/2023 Active LORazepam 0.5 MG Oral Tablet (Ativan)Indication s:Anxiety state TAKE 1 TABLET BY MOUTH THREE TIMES DAILY NEEDED FOR ANXIETY 90 Tablet 03/10/2024 Active Nystatin 522354 UNIT/GM External Powder (Nystop) Apply topically to [...] AT BEDTIME 90 Tablet 1 04/26/2024 Active Jardiance 10 MG Oral Tablet (Empagliflozin) TAKE 1 TABLET BY MOUTH ONCE DAILY IN THE MORNING 90 Tablet 1 10/28/2023 04/26/20 24 Discontinued Atorvastatin Calcium 40 MG Oral Tablet (Lipitor)Indicatio ns:Dyslipidemia, goal LDL below 100 TAKE 1 TABLET BY MOUTH ONCE DAILY AT BEDTIME 90 Tablet 1 10/28/2023 04/26/20 24 Discontinued documented as of this encounter (statuses as of 04/26/2024) Active Problems Problem Noted Date Diagnosed Date [...] reflux disease without esophagi tis 07/12/2019 Old [place] (myocardial infarction) 07/12/2019 Type 2 diabetes mellitus [...] as of this encounter (statuses as of 04/26/2024) Resolved Problems Problem Noted Date Diagnosed Date [...] as of this encounter (statuses as of 04/26/2024) Immunizations Name Administration Dates Next Due COVID-19 mRNA, LNP-s, No Pre serve, 2-Dose Series ([employer]) 10/17/2020,09/19/2020 Covid-19, Mrna, Lnp-s, Pf, B ivalent, [...] encounter Miscellaneous Notes * Telephone Encounter - Sugey Mccoy RPh - 04/26/2024 11:31 AM EDTSigned Prescriptions: Disp Refills Jardiance 10 MG Oral Tablet (Empagliflozin)90 Tab*1 Sig: TAKE 1 TABLET BY MOUTH ONCE DAILY IN THE MORNINGAuthorizing Provider: LLOYD VILLA User: SUGEY MCCOY Atorvastatin Calcium 40 MG Oral Tablet (Li*90 Tab*1 Sig: TAKE 1 TABLET BY MOUTH ONCE DAILYAT BEDTIMEAuthorizing Provider: LLOYD VILLA User: SUGEY MCCOY documented in this encounter Plan of Treatment Upcoming Encounters Date Type Department Care Team (Late st Contact Info) Description 05/25/2024 1:20 PM EST Office Visit [address] [address] Lloyd Villa MD [address] [place] [address] 05/31/2024 9:30 AM EST Imaging Vascular Lab, [facility] 2nd [facility] [place] [address] [facility] [place] [address] 07/13/2024 1:40 PM EST Office Visit Podiatry [facility] [address] [facility] [place] [address] Danielle Burns, [facility] 132 [facility] [place] [address] 09/09/2024 1:20 PM EST Office Visit Dermatology [facility] [address] [place] [phone] Ran Millan PA-C [address] [place] [address] 09/30/2024 1:00 PM EDT Office Visit Pharmacy, [place] [address] [place] [facility] [place] [address] [place] [facility] [address] [place] [facility] [place] [address] Health Maintenance Due Date Last Done Comments Adult Wellness Visit 02/27/2020 02/26/2019 Depression Screening 04/25/2023 04/25/2022, 09/30/2017, 09/13/2014 (Discussed) B-12 08/12/2023 08/12/2022, 01/05, 08/11/2018, Additional history exists CKD PHOS USE SMARTSET 78184 11/19/202311/04, 03/13/2021, 01/30/2021, Additional history exists Diabetic Eye Exam 01/10/2024 01/09/2023, , 12/31/2019, Additional history exists COVID-19 Vaccine ( season) 2024 06/04/2022, 10/17/2020, 09/19/2020 GFR 03/07/2024 09/05/2023, 04/07, 11/18/2022, Additional history exists HbA1c 03/07/2024 09/05/2023, 04/07, 11/18/2022, Additional history exists Mammogram 03/25/2024 03/25/2023, 08/07, 08/24/2021, Additional history exists CKD HGB USE SMARTSET 12740 04/25/202404/25, 06/18/2022, 06/11/2022, Additional history exists Diabetic [...] as of this encounter Visit Diagnoses Diagnosis Dyslipidemia, goal LDL below 100 Other and unspecified hyperlipidemia documented in this encounter Advance Directives * [...] and were consensually agreed upon. Care Teams Prop And Effects Designer Relationship Specialty Start Date End Date Lloyd Villa MD [address] [place] [address] PCP - General Family Medicine 03/22/21 documented as of this encounter
--- OUTSIDE RECORDS SUMMARY | 2024-08-31 18:22 | External Medical Summary ---
Author Name Unknown Address Unknown Organization K01:[place] [place] [facility] [address] [facility] [address] [place] [address] Laboratory Report Ordering Provider Test Date Status JANIA YOUNG 05/25/2024 12:15:44 Final Observation Date Value Abnormality Reference (Units ) Status BUN 05/25/2024 12:15:44 22 Above high normal 6-20 (mg/dL) Final Creatinine 05/25/2024 12:15:44 1.1 Above high normal 0.5-1.0 (mg/dL) Final Glomerular filtration rate/1.73 sq M.predicted [Volume Rate/Area] in Serum, Plasma or Blood by Creatinine-based formula (CKD-EPI) 05/25/2024 12:15:44 51 Below low normal >=60 (mL/min) Final eGFR is calculated based on the CKD-EPI 2020 equation. Sodium 05/25/2024 12:15:44 144 135-146 (m mol/L) Final Potassium 05/25/2024 12:15:44 4.7 3.5-5.1 (m mol/L) Final Cl 05/25/2024 12:15:44 103 98-107 (mm ol/L) Final CO2 05/25/2024 12:15:44 30 22-32 (mmo l/L) Final Anion gap 05/25/2024 12:15:44 11 7-15 (mmol /L) Final Glucose 05/25/2024 12:15:44 167 Above high normal 70 -120 (mg/dL) Final Calcium 05/25/2024 12:15:44 9.5 8.4-10.2 ( mg/dL) Final Performing Location [facility]ORY [facility] [place] [address] [place] [address]
--- OUTSIDE RECORDS SUMMARY | 2024-08-31 18:22 | External Medical Summary | Summary of Care ---
Author Name Unknown Organization [facility] Address [address] [place] [address] Phone [phone] Care Team Providers Care Watcher Lookout Tower Name Role Phone Case House MD Primary Care Provider [phone]- [phone] Reason for Visit * Reason Onset Date Comments [facility] 05/31/2024 Encounter Details Date Type Department Care Team (Late st Contact Info) Description 05/31/2024 Telephone [facility] [address] [place], [place] [id number] Program, [place] [address] [place] [address] [facility] Allergies Active Allergy Reactions Criticality Noted Date Comments Ciprofloxacin 05/27/2022 tendonitis Oxycodone Other (Please comment) 01/29/2016 Mental problems, confusion Other reaction(s): SEDATION Tramadol 10/28/2023 Difficult to arouse after taking medication documented as of this encounter (statuses as of 05/31/2024) Medications COENZYME Q-10 100 MG PO CAPS 1 CAPSULE DAILY 3 Active [employer] GLUCOSE SYSTEM W/DEVICE KIT Use as directed [...] as directed. Freestyle Zabrina 2 supplied by [email or web address] Active Lidocaine 4 % External Patch (Aspercreme) [...] trulicity 9 mL 4 4 Active Nystatin 846374 UNIT/GM External Powder (Nystop) Apply topically to [...] (System to Track Abnormalities of Importance Reliably) [facility] AORTIC DUPLEX EVAL-COMPLETE 05/31/2024 Narrative VASCULAR [...] 07/13/2024 1:40 PM EST Office Visit Podiatry [facility] [address] [place] [address] Danielle Burns DPM 132 [facility] [place] [address] 09/09/2024 1:20 PM EST Office Visit Dermatology [facility] [address] [place] [address] Ran Millan PA-C [address] [place] [address] 09/30/2024 1:00 PM EDT Office Visit Pharmacy, [facility] [address] [phone] [facility] [address] [place], [place] [address] [address] 11/25/2024 2:20 PM EDT Office Visit Family Practice, [facility] [address] [phone] Case House MD [address] [place] [address] Health Maintenance Due Date Last Done Comments Adult Wellness Visit 02/27/2020 02/26/2019 Depression Screening 04/25/2023 04/25/2022, 09/30/2017, 09/13/2014 (Discussed) CKD PHOS USE SMARTSET 72112 11/19/202311/04, 03/13/2021, 01/30/2021, Additional history exists COVID-19 Vaccine ( season) 2024 06/04/2022, 10/17/2020, 09/19/2020 CKD HGB USE SMARTSET 28045 04/25/202404/25, 06/18/2022, 06/11/2022, Additional history exists Diabetic [...] and were consensually agreed upon. Care Teams Watcher Lookout Tower Relationship Specialty Start Date End Date Case House MD [address] [place] [facility] [place] [address] PCP - General Family Medicine 03/22/21 documented as of this encounter
--- OUTSIDE RECORDS SUMMARY | 2024-08-31 18:22 | External Medical Summary | Summary of Care ---
Author Name Unknown Organization [facility] Address [address] [address] Phone [phone] Care Team Providers Care Cv Rn Name Role Phone Lloyd Villa MD Primary Care Provider +1- [phone] Reason for Visit * Reason Comments eRx-Medication Refill Encounter Details Date Type Department Care Team (Late st Contact Info) Description 05/10/2024 Refill [facility] [address] [place] [address] Lloyd Villa MD [address] [place] [address] Diverticulosis of large intestine without hemorrhage Allergies Active Allergy Reactions Criticality Noted Date Comments Ciprofloxacin 05/27/2022 tendonitis Oxycodone Other (Please comment) 01/29/2016 Mental problems, confusion Other reaction(s): SEDATION Tramadol 10/28/2023 Difficult to arouse after taking medication documented as of this encounter (statuses as of 05/11/2024) Medications Medication Sig Dispensed Refills Start Date [...] as directed. Freestyle Zabrina 2 supplied by [employer] Active Lidocaine 4 % External Patch (Aspercreme) [...] the morning. 20 Each 3 08/08/2023 Active metFORMIN HCl ER 750 MG Oral [...] trulicity 9 mL 4 12/30/2023 Active Nystatin 735114 UNIT/GM External Powder (Nystop) Apply topically to [...] NEEDED FOR ANXIETY 90 Tablet 05/04/2024 Active Dicyclomine HCl 10 MG Oral Capsule (Bentyl)Indication s:Diverticulosis of large intestine without hemorrhage TAKE 1 CAPSULE BY MOUTH 4 TIMES DAILY NEEDED FOR ABDOMINAL PAIN 120 Capsule 5 05/11/2024 Active Dicyclomine HCl 10 MG Oral Capsule (Bentyl)Indication s:Diverticulosis of large intestine without hemorrhage TAKE 1 CAPSULE BY MOUTH 4 TIMES DAILY NEEDED FOR ABDOMINAL PAIN 120 Capsule 5 09/09/2023 05/11/20 24 Discontinued documented as of this encounter (statuses as of 05/11/2024) Active Problems Problem Noted Date Diagnosed Date [...] as of this encounter (statuses as of 05/11/2024) Resolved Problems Problem Noted Date Diagnosed Date [...] as of this encounter (statuses as of 05/11/2024) Immunizations Name Administration Dates Next Due COVID-19 mRNA, LNP-s, No Pre serve, 2-Dose Series ([employer]) 10/17/2020,09/19/2020 Covid-19, Mrna, Lnp-s, Pf, B ivalent, [...] Telephone Encounter - Lloyd Villa MD - 05/11/2024 7:52 AM ESTSigned Prescriptions: Disp Refills Dicyclomine HCl 10 MG Oral Capsule (Bentyl)120 Ca*5 Sig: TAKE 1 CAPSULE BY MOUTH 4 TIMES DAILY NEEDED FOR ABDOMINAL PAINAuthorizing Provider: LLOYD VILLA- * Telephone Encounter - Candice Ford LPN - 05/11/2024 7:34 AM ESTPending Prescriptions: Disp Refills Dicyclomine HCl 10 MG Oral Capsule 120 Ca*0 Sig: TAKE 1 CAPSULE BY MOUTH 4 TIMES DAILY NEEDED FOR ABDOMINAL PAIN * Telephone Encounter - Sarah Monica - 05/10/2024 1:23 PM ESTPending Prescriptions: Disp Refills Dicyclomine HCl 10 MG Oral Capsule 120 Ca*0 Sig: TAKE 1 CAPSULEBY MOUTH 4 TIMES DAILY NEEDED FOR ABDOMINAL PAIN documented in this encounter Plan of Treatment Upcoming Encounters Date Type Department Care Team (Late st Contact Info) Description 05/25/2024 1:20 PM EST Office Visit Family [address] [address] Lloyd Villa MD [address] [place] [address] 05/31/2024 9:30 AM EST Imaging Vascular Lab, [address] [facility] [place] [address] 07/13/2024 1:40 PM EST Office Visit Podiatry [facility] [address] [place] [address] Danielle Burns, [place] 132 [place] [address] 09/09/2024 1:20 PM EST Office Visit Dermatology [facility] [address] [place] [phone] Ran Millan PA-C [address] [place] [address] 09/30/2024 1:00 PM EDT Office Visit Pharmacy, [address] [place] [address] [place], [facility] [address] [address] Health Maintenance Due Date Last Done Comments Adult Wellness Visit 02/27/2020 02/26/2019 Depression Screening 04/25/2023 04/25/2022, 09/30/2017, 09/13/2014 (Discussed) B-12 08/12/2023 08/12/2022, 01/05, 08/11/2018, Additional history exists CKD PHOS USE SMARTSET 02976 11/19/202311/04, 03/13/2021, 01/30/2021, Additional history exists Diabetic Eye Exam 01/10/2024 01/09/2023, , 12/31/2019, Additional history exists COVID-19 Vaccine ( season) 2024 06/04/2022, 10/17/2020, 09/19/2020 GFR 03/07/2024 09/05/2023, 04/07, 11/18/2022, Additional history exists HbA1c 03/07/2024 09/05/2023, 04/07, 11/18/2022, Additional history exists Mammogram 03/25/2024 03/25/2023, 08/07, 08/24/2021, Additional history exists CKD HGB USE SMARTSET 58255 04/25/202404/25, 06/18/2022, 06/11/2022, Additional history exists Diabetic [...] as of this encounter Visit Diagnoses Diagnosis Diverticulosis of large intestine without hemorrhage documented in this encounter Advance Directives * [...] and were consensually agreed upon. Care Teams Cv Rn Relationship Specialty Start Date End Date Lloyd Villa MD [address] [place] [address] PCP - General Family Medicine 03/22/21 documented as of this encounter
--- OUTSIDE RECORDS SUMMARY | 2024-08-31 18:22 | External Medical Summary | Summary of Care ---
Author Name Unknown Organization [facility] Address [address] [address] Phone [phone] Care Team Providers Care Nnp Name Role Phone Case House MD Primary Care Provider +1- [phone] Reason for Visit * Reason Comments Outpatient Testing Encounter Details Date Type Department Care Team (Late st Contact Info) Description 05/25/2024 12:10 PM EST Laboratory Laboratory, [place] [address] [place] [address] [facility] [address] [place] [address] Type 2 diabetes mellitus with hemoglobin A1c goal of less than 8.0% ([facility]); Encounter for long-term (current) use of medications; Dyslipidemia, goal LDL below 70; Type 2 diabetes mellitus with polyneuropathy (HCC); HTN, goal below 150/90 Allergies Active Allergy Reactions Criticality Noted Date Comments Ciprofloxacin 05/27/2022 tendonitis Oxycodone Other (Please comment) 01/29/2016 Mental problems, confusion Other reaction(s): SEDATION Tramadol 10/28/2023 Difficult to arouse after taking medication documented as of this encounter (statuses as of 05/25/2024) Medications COENZYME Q-10 100 MG PO CAPS [...] as directed. Freestyle Zabrina 2 supplied by [employer] Active Lidocaine 4 % External Patch (Aspercreme) Place 1 Patch over 12 hours topically on the skin daily. 30 Patch 11 3 Active Triamcinolone Acetonide 0.1 % External Cream (Aristocort) Apply topically to affected area 2 times a day. To affected area. 80 g 5 3 Active BD Pen Needle Kaci 2nd Gen 32G X 4 MM (Insulin Pen Needle)Indications :Type 2 diabetes mellitus with hemoglobin A1c goal of less than 8.0% (HCC) Use to inject insulin once daily. 100 Each 3 3 Active DuoDERM CGF Dressing External Apply 1 Each topically to affected area in the morning. 20 Each 3 4 Active metFORMIN HCl ER 750 MG Oral [...] 180 days 1 Each 1 4 Active hydroCHLOROthiazid e 25 MG Oral Tablet (Hydrodiuril) Take 1 tablet by mouth once daily 30 Tablet 5 4 Active Ozempic (2 MG/DOSE) 8 MG/3ML Subcutaneous Solution Pen-injector (Semaglutide (2 MG/DOSE))Indicatio ns:Type 2 diabetes mellitus with hemoglobin A1c goal of less than 8.0% ([facility]) Inject 2 mg once weekly- this replaces trulicity 9 mL 4 4 Active Nystatin 273953 UNIT/GM External Powder (Nystop) Apply topically to affected area daily. Apply to groin area as needed. 15 g 5 4 Active Insulin Glargine-yfgn 100 UNIT/ML Subcutaneous Solution Pen-injector (Semglee (yfgn))Indications :Type 2 diabetes mellitus with hemoglobin A1c goal of less than 8.0% ([facility]) Inject 36 units under the skin once [...] 4 Active LORazepam 0.5 MG Oral Tablet (Ativan)Indication s:Anxiety state TAKE 1 TABLET BY MOUTH THREE TIMES DAILY NEEDED FOR ANXIETY 90 Tablet 4 Active Dicyclomine HCl 10 MG Oral Capsule (Bentyl)Indication s:Diverticulosis of large intestine without hemorrhage TAKE 1 CAPSULE BY MOUTH 4 TIMES DAILY NEEDED FOR ABDOMINAL PAIN 120 Capsule 5 4 Active documented as of this encounter (statuses as of 05/25/2024) Active Problems Problem Noted Date Diagnosed Date [...] as of this encounter (statuses as of 05/25/2024) Resolved Problems Problem Noted Date Diagnosed Date [...] as of this encounter (statuses as of 05/25/2024) Immunizations Name Administration Dates Next Due COVID-19 mRNA, LNP-s, No Pre serve, 2-Dose Series ([employer]) 10/17/2020,09/19/2020 Covid-19, Mrna, Lnp-s, Pf, B ivalent, [...] Description 05/25/2024 1:20 PM EST Office Visit [facility] [address] [place] [address] Case House MD [address] [place] [address] Arrived 05/31/2024 9:30 AM EST Imaging Vascular Lab, [facility] 2nd [facility] 132 [facility] [place] [address] 07/13/2024 1:40 PM EST Office Visit Podiatry [facility] [address] [place] [address] Danielle Burns DPM [address] [place] [address] 09/09/2024 1:20 PM EST Office Visit Dermatology [address] [phone] Ran Millan PA-C [address] [place] [address] 09/30/2024 1:00 PM EDT Office Visit Pharmacy, [place] [address] [place] [address] [place] [facility] [address] [place] [address] Pending Results Name Type Priority Associated Diagnoses Date /Time BASIC METABOLIC PANEL Lab Routine Type 2 diabetes mellitus with hemoglobin A1c goal of less than 8.0% ([facility]) 05/25/2024 12:15 PM EST HEMOGLOBIN A1C Lab Routine Type 2 diabetes mellitus with hemoglobin A1c goal of less than 8.0% ([facility]) 05/25/2024 12:15 PM EST VITAMIN B12 Lab Routine Encounter for long-term (current) use of medications 05/25/2024 12:15 PM EST LIPID PANEL WITH DIRECT LDL IF TG IS HIGH Lab Routine Dyslipidemia, goal LDL below 70 05/25/2024 12:15 PM EST ALT Lab Routine Dyslipidemia, goal LDL below 70 05/25/2024 12:15 PM EST Health Maintenance Due Date Last Done Comments Adult Wellness Visit 02/27/2020 02/26/2019 Depression Screening 04/25/2023 04/25/2022, 09/30/2017, 09/13/2014 (Discussed) B-12 08/12/2023 08/12/2022, 01/05, 08/11/2018, Additional history exists CKD PHOS USE SMARTSET 65274 11/19/202311/04, 03/13/2021, 01/30/2021, Additional history exists Diabetic Eye Exam 01/10/2024 01/09/2023, , 12/31/2019, Additional history exists COVID-19 Vaccine ( season) 2024 06/04/2022, 10/17/2020, 09/19/2020 GFR 03/07/2024 09/05/2023, 04/07, 11/18/2022, Additional history exists HbA1c 03/07/2024 09/05/2023, 04/07, 11/18/2022, Additional history exists CKD HGB USE SMARTSET 01706 04/25/202404/25, 06/18/2022, 06/11/2022, Additional history exists Diabetic Foot Exam 08/08/2024 08/08/2023, 1 07/16/2019, 04/08/2018, Additional history exists Albumin/Creatinine Ratio 09/04/2024 024, 08/12/2022, 04/25/2022, Additional history exists Mammogram 05/19/2025 05/19/2024, 03/07, 08/24/2021, Additional history exists DXA Scan 07/23/2025 07/23/2022, [...] A1c goal of less than 8.0% (HCC) Encounter for long-term (current) use of medications Encounter for long-term (current) use of other medications Dyslipidemia, goal LDL below 70 Other and unspecified hyperlipidemia Type 2 diabetes mellitus with polyneuropathy (HCC) Type II or unspecified type diabetes mellitus with neurological manifestations, not stated as uncontrolled HTN, goal below 150/90 documented in this encounter Advance Directives * [...] and were consensually agreed upon. Care Teams Nnp Relationship Specialty Start Date End Date Csae House MD [address] [facility] [address] PCP - General Family Medicine 03/22/21 documented as of this encounter
--- OUTSIDE RECORDS SUMMARY | 2024-08-31 18:22 | External Medical Summary ---
Author Name Unknown Address Unknown Organization K01:LABORATORY [facility] [place] - [address] [address] Laboratory Report Ordering Provider Test Date Status JANIA YOUNG 05/25/2024 12:15:44 Final Observation Date Value Abnormality Reference (Units ) Status Vitamin B12 05/25/2024 12:15:44 >2000 Above high normal 232-1245 (pg/mL) Final Performing Location LABORATORY [facility] - [address] [address]
--- OUTSIDE RECORDS SUMMARY | 2024-08-31 18:22 | External Medical Summary ---
Author Name Unknown Address Unknown Organization K01:LABORATORY [facility] [place] [address] [facility] [address] [place] [address] Laboratory Report Ordering Provider Test Date Status JANIA YOUNG 05/25/2024 12:15:44 Final Observation Date Value Abnormality Reference (Units ) Status HbA1C 05/25/2024 12:15:44 7.4 Above high normal 4. 0-5.6 (%) Final The use of HbA1c to monitor glycemic status is based on normal hemoglobin and HbA composition. This test should not be used in patients with abnormal hemoglobin that affects the half life of the red blood cell or the in vivo glycation rates. Glucose, estimated average 05/25/2024 12:15:44 166 Above high normal <126 (mg/dL) Tj chi Performing Location LABORATORY [facility] [place] [address] [facility] [place] [address]
--- OUTSIDE RECORDS SUMMARY | 2024-08-31 18:23 | External Medical Summary | Summary of Care ---
Author Name Unknown Organization [facility] Address [address] [place] [address] Phone [phone] Care Team Providers Care Closing Specialist Name Role Phone Case House MD Primary Care Provider [phone] Reason for Visit * Auth/Cert Specialty Diagnoses / Procedures Referred By Martin t Referred To Contact Diagnoses Lumbar radiculopathy Lumbar radiculopathy [M54.16] Procedures INJECT DX/THER SUBSTANCE INTERLAMINAR LUMBAR/SACRAL W IMAGE GUIDE INJECTION SPINE LUMBAR OR SACRAL Phi Beckwith DO [address] [place] [address] Or [facility] [address] [place] [address] Referral ID Status Reason Start Date Expiration Date Visits Re quested Visits Authorized [id number] Encounter Details Date Type Department Care Team (Latest Contact Info) Description 03/19/2024 9:19 AM EDT - 03/19/2024 11:43 AM EDT Hospital Encounter OR [facility], Operating Room [facility] [address] [place] [address] Phi Beckwith DO [address] [place] [address] Discharge Disposition: Home - Self Care Allergies Active Allergy Reactions Criticality Noted Date Comments Ciprofloxacin 05/27/2022 tendonitis Oxycodone Other (Please comment) 01/29/2016 Mental problems, confusion Other reaction(s): SEDATION Tramadol 10/28/2023 Difficult to arouse after taking medication documented as of this encounter (statuses as of 03/19/2024) Medications Medication Sig Dispensed Refills Start Date [...] Excedrin Extra Strength 250-250-65 MG Oral Tablet (Aspirin-Acetaminoph en-Caffeine) Take 1 Tablet by mouth every 6 hours as needed. Active FreeStyle Zabrina 2 Sensor Use as directed. Freestyle Zabrina 2 supplied by [employer] ph. [phone] Active Lidocaine 4 % External Patch (Aspercreme) Place 1 Patch over 12 hours topically on the skin daily. 30 Patch 11 04/22/2023 Active Triamcinolone Acetonide 0.1 % External Cream (Aristocort) Apply topically to affected area 2 times a day. To affected area. 80 g 5 04/24/2023 Active BD Pen Needle Kaci 2nd Gen 32G X 4 MM (Insulin Pen Needle)Indications:T ype 2 diabetes mellitus with hemoglobin A1c goal of less than 8.0% ([facility]) Use to inject insulin once daily. 100 Each 3 06/26/2023 Active Insulin Glargine Solostar 100 UNIT/ML Subcutaneous Solution Pen-injector (Basaglar KwikPen)Indications: Type 2 diabetes mellitus with hemoglobin A1c goal of less than 8.0% (HCC) Inject 36 Units under the skin daily. Inject up to 36 units daily as directed by MTM pharmacist 30 Each 3 06/26/2023 Active Insulin Aspart 100 UNIT/ML Injection Solution (NovoLOG) Active DuoDERM CGF Dressing External Apply 1 Each topically to affected area in the morning. 20 Each 3 08/08/2023 Active Dicyclomine HCl 10 MG Oral Capsule (Bentyl)Indications: Diverticulosis of large intestine without hemorrhage TAKE 1 CAPSULE BY MOUTH 4 TIMES DAILY NEEDED FOR ABDOMINAL PAIN 120 Capsule 5 09/09/2023 Active metFORMIN HCl ER 750 MG Oral Tablet Extended Release 24 Hour (Glucophage XR)Indications:Type 2 diabetes mellitus with stage 3a chronic kidney disease, without long-term current use of insulin (HCC) TAKE 1 TABLET BY MOUTH IN THE MORNING AND 1 TAB AT BEDTIME 180 Tablet 3 09/16/2023 Active Omeprazole 20 MG Oral Capsule Delayed Release (PriLOSEC)Indication s:Gastroesophageal reflux disease without esophagitis TAKE 1 CAPSULE BY MOUTH BEFORE BREAKFAST 90 Capsule 3 09/26/2023 Active Shingrix 50 MCG/0.5ML Intramuscular Suspension Reconstituted (Zoster Vac Recomb Adjuvanted)Indicatio ns:Type 2 diabetes mellitus with hemoglobin A1c goal of less than 8.0% (HCC),Need for vaccination for zoster Inject 0.5 mL into a large muscle now and repeat dose in 60 to 180 days 1 Each 1 09/26/2023 Active Jardiance 10 MG Oral Tablet (Empagliflozin) TAKE 1 TABLET BY MOUTH ONCE DAILY IN THE MORNING 90 Tablet 1 10/28/2023 Active Atorvastatin Calcium 40 MG Oral Tablet (Lipitor)Indications :Dyslipidemia, goal LDL below 100 TAKE 1 TABLET BY MOUTH ONCE DAILY AT BEDTIME 90 Tablet 1 10/28/2023 Active hydroCHLOROthiazide 25 MG Oral Tablet (Hydrodiuril) Take 1 tablet by mouth once daily 30 Tablet 5 12/15/2023 Active Ozempic (2 MG/DOSE) 8 MG/3ML Subcutaneous Solution Pen-injector (Semaglutide (2 MG/DOSE))Indications :Type 2 diabetes mellitus with hemoglobin A1c goal of less than 8.0% (HCC) Inject 2 mg once weekly- this replaces trulicity 9 mL 4 12/30/2023 Active Insulin Glargine-yfgn 100 UNIT/ML Subcutaneous Solution Pen-injector (Semglee (yfgn))Indications:T ype 2 diabetes mellitus with hemoglobin A1c goal of less than 8.0% (HCC) Inject 36 units under the skin once daily 45 mL 01/15/2024 Active Pregabalin 150 MG Oral Capsule (Lyrica) TAKE 1 CAPSULE BY MOUTH THREE TIMES DAILY 90 Capsule 1 02/18/2024 Active LORazepam 0.5 MG Oral Tablet (Ativan)Indications: Anxiety state TAKE 1 TABLET BY MOUTH THREE TIMES DAILY NEEDED FOR ANXIETY 90 Tablet 03/10/2024 Active documented as of this encounter (statuses as of 03/19/2024) Active Problems Problem Noted Date Diagnosed Date [...] reflux disease without esophagi tis 07/12/2019 Old MD (myocardial infarction) 07/12/2019 Type 2 diabetes mellitus [...] as of this encounter (statuses as of 03/19/2024) Resolved Problems Problem Noted Date Diagnosed Date [...] krystyna back-- uses chiropracter Calculus of ureter 10/08/201 4 Postmenopausal atrophic vaginitis 04/13/2014 Obesity, BMI not known 09/28 Overview: Per Obesity Taxonomy Type 1 diabetes mellitus wit h hemoglobin A1c goal of 7.0%-8.0% 04/16/2013 Overview: ICD-10 update of inactive term documented as of this encounter (statuses as of 03/19/2024) Immunizations Name Administration Dates Next Due COVID-19 mRNA, LNP-s, No Pre serve, 2-Dose Series (Etopus) 10/17/2020,09/19/2020 Covid-19, Mrna, Lnp-s, Pf, B ivalent, 30 Mcg, IM, 12 yrs and above (Pfizer) 06/04/2022 Pneumococcal Conjugate Vacc, 13 Valent (Prevnar) 03/28/2015 Pneumococcal Polysaccharide PPV23 (Pneumovax) 07/30/2007 RSV Vac., Bivalent, Perfusio n F, Pf,0.5 Ml (Abrysvo) 10/15/2023 Seasonal Influenza, PF, 6 M & above, IM , (FluLaval or Fluzone) 03/30/2020,03/17/2019,04/08/2018,03/31 Seasonal Influenza, Quadriva lent Hd (Fluzone Hd) 03/18/2023,04/19/2022,04/03/2021 Seasonal Influenza, Quadriva lent, No Preserve, IM 03/29/2016,05/12/2015 Seasonal Influenza, Trivalen t, (IIV3), with Preserv, (Fluzone) 04/13/2014,04/16/2013,04/01/2011,04/03,03/29/2009,07/26/2008,07/30/2007 TD, Preservative Free 03/15/2008 TDAP (age 10 [...] Sign Reading Time Taken Comments Blood Pressure 146/46 03/19/2024 10:43 AM EDT Pulse 91 03/19/2024 10:43 AM EDT Temperature 36.6 C (97.8 F) 03/19/2024 10:15 AM E DT Respiratory Rate 17 03/19/2024 10:43 AM EDT Oxygen Saturation 93% 03/19/2024 10:43 AM EDT Inhaled Oxygen Concentration - - Weight - - Height - - Body Mass Index - - documented in this encounter Discharge Instructions * Discharge Instr - AVS* Phi Beckwith, DO - 03/19/2024 10:38 AM EDT [facility] [address] [place], [place] [address] [address] Discharge Date: 03/19/2024 You may call [facility] at [phone] during business hours. For after-hours emergencies call 911. Your attending physician at the time of your discharge was: Phi Beckwith, DO [address] [place] [address] The information below provides you with the instructions and the list of medications you need to betaking following discharge from the hospital. If you have any questions, please ask before leaving.Please carry this letter with you when you see your doctor in the clinic. Diet: Resume your normal diet If you are diabetic, follow your blood sugars closely for next 2-3 days as they are likely to be elevated. If you are having difficulty controlling your blood sugars call your family doctor or the physician that treats your diabetes. Activity: Do not engage in strenuous activity today Resume your normal activities tomorrow Do not soak in water for 24 hours. No swimming, hot tub or bath but showering is allowed. Do not use heat on the injection site for 24 hours. If uncomfortable ice may be helpful. Some injections may make your arms or legs weak for a few hours. Be extremely careful when walking or changing positions that you do not fall. Have someone assist you for the next 6 hours. If weakness or numbness becomes progressive CALL IMMEDIATELY or GO TO THE NEAREST EMERGENCY ROOM Do not restart physical therapy or chiropractic manipulation until 48 hours after your injection Call : If weakness or numbness suddenly becomes worse or become progressive If the injection site becomes red, swollen, warm to the touch, begins to bleed or drain fluid, or is excessively painful. If you have any questions Medications: Resume all the medications you were taking prior to your injection. Resume your anticoagulants tomorrow unless otherwise instructed by your family physician, cotton seed culler or the anticoagulation clinic. Additional Instructions: Please monitor for symptoms of high blood sugar such as frequent urination, flu-like symptoms and changes in your vision as well as blood sugar values >250mg/dL. If these occur, please report to your PCP and/or UrgentCare or the Emergency Department immediately. Driving: You may resume driving in 12-24 hours if no weakness is noted . Date you may return to work or school: N/A Follow Up: Please make a follow-up telephone appointment with our nursing staff in 4-6 weeks. documented in this encounter Progress Notes * Phi Beckwith DO - 03/19/2024 10:38 AM EDT [facility] [place] [address] [facility] [id number] OUTPATIENT SURGERY DISCHARGE SUMMARY NOTE Name: Thuy Vargas Location: OR [facility]/OR Date: 03/19/2024 Time: 10:38 AM Surgery Date: 03/19/2024 Procedure: INJECTION SPINE LUMBAR OR SACRAL No laterality found for procedure #1 Surgeon: Phi Beckwith DO Discharge Diagnosis: lumbar radicular pain After examination of this patient, I have determined she is ready for discharge to home when the patient meets criteria. Discharge instructions were given to the patient. Phi Beckwith DO OR [facility], Operating Room [facility] [address] [facility] [place] [id number] documented in this encounter H&P Notes * Phi Beckwith DO - 03/19/2024 10:09 AM EDT Interventional Pain H&P Subjective: History of Present Illness: Thuy Vargas is a 83 year old year-old female with a past medical history significant for lumbar radicular pain and history of lumbar surgery who is presenting for caudal JASE to improve her pain and function. her pain is essentially unchanged since our last office visit with her. ASA 3 AW nml Review of Systems: A focused 12-pt ROS were of reviewed with the patient including difficulty with sleep, snoring, aspiration history, dysphagia, stomach pain, nausea and vomiting, severe headaches, confusion, open skin lesions or wounds, chest pain, shortness of breath, excessive thirst, somnolence, dysuria, incomplete bladder emptying, easy bruising, recent clotting problems or bleeding, depression or rushed thoughts unless noted previously. Review of patient's allergies indicates: Allergen Reactions Ciprofloxacin tendonitis Oxycodone Other (Please comment) Mental problems, confusion Other reaction(s): SEDATION Tramadol Difficult to arouse after taking medication Medications, Past Medical History, Past Surgical History reviewed and documented in Epic. See detailed report if needed. Pertinent Labs/Test Results: No results found for: "INR" No results found for: "CREATININE" Hemoglobin A1C (%) Date Value 09/05/2023 7.3 (H) 03/30/2020 7.1 (H) No results found for: "AMPHETAMINE", "BARBITURATES", "BENZODIAZEPINES", "BUPRENORPHINE", "METHADONE", "OPIATES", "OXYCODONE", "PHENCYCLIDINE", "CANNABINOIDS", "TOX SCREEN", "URINE", "TOX SCREEN-SERUM", "TOX SCREEN, URINE" Imaging: I personally reviewed the imaging and my findings were . FLUORO INTERVENTIONAL PAIN PROCEDURE NONBILLABLE This procedure will not be read by a Radiologist. Please see operative note. Objective Physical Exam: Vital Signs: There were no vitals taken for this visit. There is no height or weight on file to calculate BMI. General: No apparent distress. Eyes: pupils equal and round, sclera white, pupils midsize. ENT: mucous membranes moist Resp: Non-labored breathing CV: Extremities warm and well-perfused. Psych: Oriented; affect warm, insight good. Skin: No rashes or lesions appreciated on exposed skin Neuromuscular Exam: Facet loading neg, SLR pos, TTT over lumbar spine Assessment: Thuy is a 83 year old year-old female with: Lumbar radicular pain Plan: The patient is undergoing caudal JASE today to alleviate her pain and improve her function. The risks, benefits and alternatives to the procedure were reviewed at length and the patient was provided the opportunity to ask questions which were answered to their voiced understanding. Following this comprehensive discussion, the patient opted to proceed. The patient was consented to the procedure following this comprehensive conversation. Phi Beckwith DO OR [facility], Operating Room [facility] [address] [place] [address] [place] [phone] documented in this encounter Nursing Notes * Elizabeth Valentin RN - 03/19/2024 10:46 AM EDT Pt tolerated procedure well. Pt has been visited by Dr. Beckwith. Discharge instructions reviewed with pt and pt has verbalized understanding of these teachings. Pt ready for discharge. * Sarah Tran RN - 03/19/2024 10:39 AM EDT Tolerated injection without complication documented in this encounter OR Notes * OR Surgeon - Phi Beckwith DO - 03/19/2024 10:37 AM EDT CAUDAL EPIDURAL STEROID INJECTION DATE: 03/19/2024 ATTENDING: Phi Beckwith DO PREOPERATIVE DIAGNOSIS: Lumbosacral spondylosis and radiculopathy POSTOPERATIVE DIAGNOSIS: Lumbosacral spondylosis and radiculopathy PROCEDURE PERFORMED: Caudal epidural steroid injection. Fluoroscopic guidance for precise needle guidance. ANESTHESIA: Local anesthesia with 1% lidocaine. 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 I am providing her a caudal epidural steroid injection today to alleviate her pain and improve her function. There was no oncology physician assistant, EBL or drains placed during this procedure. MEDICATIONS: No current facility-administered medications for this encounter. ALLERGY: Review of patient's allergies indicates: Allergen Reactions Ciprofloxacin tendonitis Oxycodone Other (Please comment) Mental problems, confusion Other reaction(s): SEDATION Tramadol Difficult to arouse after taking medication REVIEW OF SYSTEMS: Negative for fever, chills, chest pain, SOB, bleeding abnormalities, nausea, vomiting, diarrhea, edema, or new rashes. FOCUSED PHYSICAL EXAMINATION: The patient is awake, alert, oriented, and is in no acute distress. Vital signs are stable. The patient is afebrile. The rest of the physical examination is essentially unchanged from the patients recent visit to our office. We explained the procedure to the patient, including the risks, benefits and alternatives to the procedure. The patient verbalized understanding and was willing to proceed. PROCEDURE IN DETAIL: An informed consent was obtained. The patient was taken to the procedure room and was positively identified by the staff and the attending physician. The patient was positioned prone on the procedure bed. Vital signs were monitored as above and remained stable throughout the procedure. The skin over the sacral hiatus was prepped and draped in a standard sterile fashion. A surgical pause (time-out) was performed and was agreed upon by the members of the team. Fluoroscopy wasused to identify the sacral hiatus. The skin and subcutaneous tissues were anesthetized using 1% lidocaine and 25-gauge 1-1/2 inch needle. An 25-gauge 3.5-in needle was inserted and advanced into thesacral hiatus under fluoroscopic guidance. After the needle passed through the sacrococcygeal ligament the hub of the needle was lowered and the needle was advanced into the sacral epidural space. After negative aspiration for blood and CSF, 1.5 mL of iohexol radiopaque dye was slowly injected. This demonstrated posterior epidural spread of radiopaque dye. After additional negative aspiration, 40mg of Kenalog diluted in 2 mL of normal saline and 2 mL of 1% lidocaine were injected into the epidural space. All needles were withdrawn. The patient tolerated the procedure well. COMPLICATIONS: None. DISPOSITION: 1. Return to clinic in 1-2 months for follow-up evaluation, sooner as needed. 2. Resume activity as tolerated. 3. Patient can drive after 12-24 hours if no weakness noted. 4. Diabetes advisement per discharge instructions Phi Beckwith DO OR [facility], Operating Room [address] [place] [address] documented in this encounter Plan of Treatment Upcoming Encounters Date Type Department Care Team (Late st Contact Info) Description 04/02/2024 2:30 PM EDT Office [place] [facility], [place] [address] [address] [place] [facility] [address] [address] 04/06/2024 1:20 PM EDT Office Visit Podiatry [facility] [address] [facility] [place] [address] Danielle Burns, DPM [address] [place] [address] 04/21/2024 2:00 PM EDT Scheduled Telephone Interventional Pain Center, [facility] [address] [place] [address] Vin, Nurse Phone Call Interventional Pain [facility] [address] [place] [address] 05/25/2024 1:20 PM EST Office Visit [facility] [address] [place] [id number] Case House MD [address] [place] [address] 09/09/2024 1:20 PM EST Office Visit Dermatology [facility] [address] [place] [address] Ran Millan PA-C [address] [place] [phone] Scheduled Procedures Name Priority Associated Diagnoses Date/Ti me INJECTION SPINE LUMBAR OR SACRAL Lumbar radiculopathy 03/19/2024 10:29 AM EDT Health Maintenance Due Date Last Done Comments Adult Wellness Visit 02/27/2020 02/26/2019 Depression Screening 04/25/2023 04/25/2022, 09/30/2017, 09/13/2014 (Discussed) B-12 08/12/2023 08/12/2022, 01/05, 08/11/2018, Additional history exists CKD PHOS USE SMARTSET 38469 11/19/202311/04, 03/13/2021, 01/30/2021, Additional history exists Diabetic Eye Exam 01/10/2024 01/09/2023, , 12/31/2019, Additional history exists COVID-19 Vaccine ( season) 2024 06/04/2022, 10/17/2020, 09/19/2020 GFR 03/07/2024 09/05/2023, 04/07, 11/18/2022, Additional history exists HbA1c 03/07/2024 09/05/2023, 04/07, 11/18/2022, Additional history exists Influenza Vaccine (FLU shot) (#1) 2024 03/18/2023, 04/19/2022, 04/03/2021, Additional history exists Mammogram 03/25/2024 03/25/2023, 08/07, 08/24/2021, Additional history exists CKD HGB USE SMARTSET 79855 04/25/202404/25, 06/18/2022, 06/11/2022, Additional history exists Diabetic Foot Exam 08/08/2024 08/08/2023, 1 07/16/2019, 04/08/2018, Additional history exists Albumin/Creatinine Ratio 09/04/2024 024, 08/12/2022, 04/25/2022, Additional history exists DXA Scan 07/23/2025 07/23/2022, 07/07, 03/17/2019, Additional history exists DTap/Tdap Vaccines (2 - Td or Tdap) 03/25/2033 03/25/2023, 03/15/2008 Pneumococcal Vaccine: 65+ Years Completed 03/28/2015, 07/30/2007 Zoster Vaccines Completed 12/20/2023, 10/15/2023 HPV (Gardasil) Vaccine Aged Out No lo nger eligible based on patient's age to complete this topic Hepatitis B Vaccine Aged Out No longe r eligible based on patient's age to complete this topic MENINGOCOCCAL (MENACTRA/MENVEO) Aged Out No longer eligible based on patient's age to complete this topic documented as of this encounter Medical Devices Not on filedocumented as of this encounter Procedures Procedure Name Priority Date/Time Associated Diagnosis Comments FLUORO INTERVENTIONAL PAIN PROCEDURE NONBILLABLE Routine 03/19/2024 10:41 AM EDT documented in this encounter Results * FLUORO INTERVENTIONAL PAIN PROCEDURE NONBILLABLE (03/19/2024 10:41 AM EDT) Narrative Scheduling, Silent - 03/19/2024 10:41 AM EDT This procedure will not be read by a Radiologist. Please see operative note. Phi Prasad Tang [facility] FLUOROSCOPY documented in this encounter Administered Medications Inactive Administered Medications - up to 3 most recent administrations Medication Order MAR Action Action Date Dose Rate Site Iohexol (Omnipaque 240) inj 0.5 mL 0.5 mL, Epidural, ONCE, On Fri03/19/24 at 1045, For 1 dose, For caudal epidural Given 03/19/2024 10:33 AM EDT 1.5 mL lidocaine 1 % inj 20 mg 20 mg (2 mL), Subcutaneous, ONCE, On Fri03/19/24 at 1045, For 1 dose Given 03/19/2024 10:33 AM EDT 5 mL Other-Specify Triamcinolone Acetonide (Kenalog) 40 MG/ML inj 40 mg 40 mg, Injection, ONCE, On Fri03/19/24 at 1045, For 1 dose Given 03/19/2024 10:35 AM EDT 40 mg documented in this encounter Active and Recently Administered Medications Times are shown in EDT. Scheduled Medication Order 03/17/2024 03/18/2024 03/19/2024 Iohexol (Omnipaque 240) inj 0.5 mL (COMPLETED) 0.5 mL, Epidural, ONCE, On Fri03/19/24 at 1045, For 1 dose, For caudal epidural 1033 (Given - Provid er: Sarah Tran RN) lidocaine 1 % inj 20 mg (COMPLETED) 20 mg (2 mL), Subcutaneous, ONCE, On Fri03/19/24 at 1045, For 1 dose 1033 (Given - Provid er: Sarah Tran RN) Triamcinolone Acetonide (Kenalog) 40 MG/ML inj 40 mg (COMPLETED) 40 mg, Injection, ONCE, On Fri03/19/24 at 1045, For 1 dose 1035 (Given - Provid er: Sarah Tran RN) documented in this encounter Advance Directives * [...] and were consensually agreed upon. Care Teams Closing Specialist Relationship Specialty Start Date End Date Case House MD [address] [place] [facility] [place] [id number] PCP - General Family Medicine 03/22/21 documented as of this encounter
--- OUTSIDE RECORDS SUMMARY | 2024-08-31 18:23 | External Medical Summary | Summary of Care ---
Author Name Unknown Organization [facility] Address [address] [place] [address] Phone [phone] Care Team Providers Care Edge Glue Machine Tender Name Role Phone Case House MD Primary Care Provider [phone]- [phone] Reason for Visit * Reason Onset Date Comments Dosage Adjustment In Person ([facility]ticoag Clinic) Diabetes Follow-Up Medication Administration 04/02/2024 Flu an d/or Pneumo Inj Encounter Details Date Type Department Care Team (Late st Contact Info) Description 04/02/2024 2:30 PM EDT Office Visit Pharmacy, [place] [address] [place] [address] [facility] [address] [place] [address] Type 2 diabetes mellitus with hemoglobin A1c goal of less than 8.0% ([facility])*; Need for prophylactic vaccination and inoculation against influenza Allergies Active Allergy Reactions Criticality Noted Date Comments Ciprofloxacin 05/27/2022 tendonitis Oxycodone Other (Please comment) 01/29/2016 Mental problems, confusion Other reaction(s): SEDATION Tramadol 10/28/2023 Difficult to arouse after taking medication documented as of this encounter (statuses as of 04/02/2024) Medications Medication Sig Dispensed Refills Start Date [...] as directed. Freestyle Zabrina 2 supplied by [employer] Active Lidocaine 4 % External Patch (Aspercreme) [...] hemoglobin A1c goal of less than 8.0% ([facility]) Use to inject insulin once daily. 100 Each 3 3 Active DuoDERM CGF Dressing External Apply 1 Each topically to affected area in the morning. 20 Each 3 4 Active Dicyclomine HCl 10 MG Oral Capsule (Bentyl)Indication s:Diverticulosis of large intestine without hemorrhage TAKE 1 CAPSULE BY MOUTH 4 TIMES DAILY NEEDED FOR ABDOMINAL PAIN 120 Capsule 5 4 Active metFORMIN HCl ER 750 MG Oral Tablet Extended Release 24 Hour (Glucophage XR)Indications:Typ e 2 diabetes mellitus with stage 3a chronic kidney disease, without long-term current use of insulin ([facility]) TAKE 1 TABLET BY MOUTH [...] 180 days 1 Each 1 4 Active Jardiance 10 MG Oral Tablet (Empagliflozin) TAKE 1 TABLET BY MOUTH ONCE DAILY IN THE MORNING 90 Tablet 1 4 Active Atorvastatin Calcium 40 MG Oral Tablet (Lipitor)Indicatio ns:Dyslipidemia, goal LDL below 100 TAKE 1 TABLET BY MOUTH ONCE DAILY AT BEDTIME 90 Tablet 1 4 Active hydroCHLOROthiazid e 25 MG Oral Tablet (Hydrodiuril) Take 1 tablet by mouth once daily 30 Tablet 5 4 Active Ozempic (2 MG/DOSE) 8 MG/3ML Subcutaneous Solution Pen-injector (Semaglutide (2 MG/DOSE))Indicatio ns:Type 2 diabetes mellitus with hemoglobin A1c goal of less than 8.0% (HCC) Inject 2 mg once weekly- this replaces trulicity 9 mL 4 4 Active Insulin Glargine-yfgn 100 UNIT/ML Subcutaneous Solution Pen-injector (Semglee (yfgn))Indications :Type 2 diabetes mellitus with hemoglobin A1c goal of less than 8.0% (HCC) Inject 36 units under the skin once daily 45 mL 4 Active Pregabalin 150 MG Oral Capsule (Lyrica) TAKE 1 CAPSULE BY MOUTH THREE TIMES DAILY 90 Capsule 1 4 Active LORazepam 0.5 MG Oral Tablet (Ativan)Indication s:Anxiety state TAKE 1 TABLET BY MOUTH THREE TIMES DAILY NEEDED FOR ANXIETY 90 Tablet 4 Active Insulin Glargine Solostar 100 UNIT/ML Subcutaneous Solution Pen-injector (Basaglar KwikPen)Indication s:Type 2 diabetes mellitus with hemoglobin A1c goal of less than 8.0% (HCC) Inject 36 Units under the skin daily. Inject up to 36 units daily as directed by MTM pharmacist 30 Each 3 3 04/02/20 24 Discontinued Insulin Aspart 100 UNIT/ML Injection Solution (NovoLOG) 04/02/20 24 Discontinued documented as of this encounter (statuses as of 04/02/2024) Active Problems Problem Noted Date Diagnosed Date [...] reflux disease without esophagi tis 07/12/2019 Old [place] (myocardial infarction) 07/12/2019 Type 2 diabetes mellitus [...] as of this encounter (statuses as of 04/02/2024) Resolved Problems Problem Noted Date Diagnosed Date [...] as of this encounter (statuses as of 04/02/2024) Immunizations Name Administration Dates Next Due COVID-19 mRNA, LNP-s, No Pre serve, 2-Dose Series (Pfizer) 10/17/2020,09/19/2020 Covid-19, Mrna, Lnp-s, Pf, B ivalent, 30 Mcg, IM, 12 yrs and above (Pfizer) 06/04/2022 Pneumococcal Conjugate Vacc, 13 Valent (Prevnar) 03/28/2015 Pneumococcal Polysaccharide PPV23 (Pneumovax) 07/30/2007 RSV Vac., Bivalent, Perfusio n F, Pf,0.5 Ml (Abrysvo) 10/15/2023 Seasonal Influenza, High Dos e, Trivalent, PF, [...] as of this encounter Progress Notes * Barbie Torrez, [facility] - 04/02/2024 2:40 PM EDT Medication Therapy Disease Management Clinic - Diabetes Management Progress Note Thuy Vargas, identified by name and date of , is a 83 year old female being seen for diabetes management/education. Patient presents for return diabetic visit. DIABETES: Current diabetic medications: Metformin ER 750mg twice daily Jardiance 10mg daily Ozempic 2 mg once weekly - [replaces trulicity 4.5 mg] Glargine 36 units daily eGFR 52 mL/min 09/05/23 Medication Injection Site: Abdomen Lifestyle: Diet: unchanged Glucose Review/SMBG: Forgot zabrina 2 reader Some nights in 120s 193 this AM after breakfast Hypoglycemia: Does your blood sugar go below 70 mg/dL? No Hyperglycemia symptoms present: none Recent Labs Units 09/05/23 1000 04/25/23 1421 11/18/22 1623 HEMOGLOBIN A1C - [facility] % 7.3* 7.5* 7.5* Recent Labs Units 09/05/23 1000 04/25/23 1421 11/18/22 1623 ESTIMATED GLOMERULAR FILTRATION RATE - [facility] mL/min 52* 40* 54* CREATININE - [facility] mg/dL 1.1* 1.3* 1.0 HYPERTENSION: Patient on ACEi/ARB: no, not taking BP Readings from Last 3 Encounters: 03/19/24 146/46 02/14/24 128/60 10/28/23 140/78 HYPERLIPIDEMIA: Recent Labs Units 09/05/23 1000 08/12/22 0946 LDL CHOLESTEROL (DIRECT MEASURE) - [facility] mg/dL 61 58 Does patient have clinical ASCVD? Yes, is patient LDL less than 55 mg/dL? No: recommend repeating lipid panel before determining if medication changes/escalation is needed to target a lower LDL HEALTH MAINTENANCE REVIEW: Health Maintenance Due Topic Date Due Adult Wellness Visit 02/27/2020 Depression Screening 04/25/2023 B-12 08/12/2023 CKD PHOS USE SMARTSET 04928 11/19/2023 Diabetic Eye Exam 01/10/2024 HbA1c 03/07/2024 Influenza Vaccine (FLU shot) (1) 03/07/2024 GFR 03/07/2024 COVID-19 Vaccine ( season) 2024 Mammogram 03/25/2024 CKD HGB USE SMARTSET 78939 04/25/2024 ASSESSMENT & PLAN: ICD-10-CM 1. Type 2 diabetes mellitus with hemoglobin A1c goal of less than 8.0% (HCC) E11.9 2. Need for prophylactic vaccination and inoculation against influenza Z23 Considerations: - pt has PACENET - Renal function - Freestyle Zabrina 2 supplied by [employer] BG Readings - Blood sugars not available. Patient forgot her zabrina reader. Denies any issues with low or high blood sugars. Medications - Reviewed current regimen, patient is adherent to regimen. Tolerating ozempic well. Voices no concerns at this time. Diet, Exercise, Lifestyle - No significant lifestyle changes since last visit. Discussed with patient . Patient is agreeable to SMBG with freestyle zabrina 2 daily. Patient aware to contact clinic if any hypoglycemia before next visit. MEDICATION CHANGES: no change Diabetic Medications: Metformin ER 750mg twice daily Jardiance 10mg daily Ozempic 2 mg once weekly - [replaces trulicity 4.5 mg] Semglee 36 units daily eGFR 52 mL/min 09/05/23 HEALTH MAINTENANCE INTERVENTIONS: Labs: Ordered & Scheduled: HgA1c, BMP/CMP, and Vitamin B12 Immunizations: Facilitated Administration Of: Influenza Foot Exam: Up to Date Eye Exam: Complete with next PCP visit on May Annual Wellness Visit: due FOLLOW UP: Return to clinic in 6 months 09/30/2024 I spent a total of 20-29 minutes (exact time 23 mins) on the date of service in preparation, delivery, and documentation of the care provided to Thuy Vargas excluding any time spent in the performance of separately billed services. Barbie Torrez [facility] Clinical Pharmacist - Double Needle Stitcher Medication Therapy Management Clinic 04/02/2024, 2:40 PM PRE - ADMINISTRATION DOCUMENTATION Are you experiencing any cold symptoms or fever? No Have you had Guillain-[place] Syndrome (an illness that causes paralysis) within the last 6 weeks? No Have you had the flu shot in the past? YES Have you ever had a reaction to the flu shot? No Barbie Torrez RPh, 04/02/2024 2:49 PM Immunization Administration Documentation Time Out Procedure Performed: Yes Patient Identified (Ask Name/Date of ): Yes Does the patient have a fever greater than 101 degrees today? No Patient allergic to latex? No VFC Stock: No Immunization(s) verified: Yes, Immunization Name: Flu, VIS Sheet(s) given: Yes Verified Side and Site: Yes Verified Shot(s) with Parent(s)/Patient: Yes documented in this encounter Plan of Treatment Upcoming Encounters Date Type Department Care Team (Late st Contact Info) Description 04/21/2024 2:00 PM EDT Scheduled [facility] [address] [place] [address] Vin Nurse Phone Call Interventional Pain [place] [address] [address] 05/25/2024 1:20 PM EST [address] [phone] Case House MD [address] [place] [address] 05/31/2024 9:30 AM EST Imaging Vascular Lab, [facility] 2nd [facility] [place] [address] [facility] [place] [address] 09/09/2024 1:20 PM EST Office Visit [facility]ermat[facility] [address] [facility] [phone] Ran Millan PA-C [address] [place], [place] [address] [address] 09/30/2024 1:00 PM EDT Office Visit Pharmacy, [place] [address] [facility] [place] [address] [facility] [address] [place] [facility] [place] [address] Health Maintenance Due Date Last Done Comments Adult Wellness Visit 02/27/2020 02/26/2019 Depression Screening 04/25/2023 04/25/2022, 09/30/2017, 09/13/2014 (Discussed) B-12 08/12/2023 08/12/2022, 01/05, 08/11/2018, Additional history exists CKD PHOS USE SMARTSET 02703 11/19/202311/04, 03/13/2021, 01/30/2021, Additional history exists Diabetic Eye Exam 01/10/2024 01/09/2023, , 12/31/2019, Additional history exists COVID-19 Vaccine ( season) 2024 06/04/2022, 10/17/2020, 09/19/2020 GFR 03/07/2024 09/05/2023, 04/07, 11/18/2022, Additional history exists HbA1c 03/07/2024 09/05/2023, 04/07, 11/18/2022, Additional history exists Mammogram 03/25/2024 03/25/2023, 08/07, 08/24/2021, Additional history exists CKD HGB USE SMARTSET 81350 04/25/202404/25, 06/18/2022, 06/11/2022, Additional history exists Diabetic [...] hemoglobin A1c goal of less than 8.0% (HCC)- Primary Need for prophylactic vaccination and inoculation against influenza documented in this encounter Advance Directives * [...] and were consensually agreed upon. Care Teams Edge Glue Machine Tender Relationship Specialty Start Date End Date Case House MD [address] [facility] [place] [phone] PCP - General Family Medicine 03/22/21 documented as of this encounter
--- OUTSIDE RECORDS SUMMARY | 2024-08-31 18:23 | External Medical Summary | Summary of Care ---
Author Name Unknown Organization [facility] Address [address] [address] Phone [phone] Care Team Providers Care Melt House Supervisor Name Role Phone Lloyd Villa MD Primary Care Provider +1- [phone] Reason for Visit * Reason Comments eRx-Medication Refill Encounter Details Date Type Department Care Team (Late st Contact Info) Description 04/19/2024 Refill [facility] [address] [place] [address] Lloyd Villa MD [address] [place] [address] Allergies Active Allergy Reactions Criticality Noted Date Comments Ciprofloxacin 05/27/2022 tendonitis Oxycodone Other (Please comment) 01/29/2016 Mental problems, confusion Other reaction(s): SEDATION Tramadol 10/28/2023 Difficult to arouse after taking medication documented as of this encounter (statuses as of 04/20/2024) Medications Medication Sig Dispensed Refills Start Date [...] as directed. Freestyle Zabrina 2 supplied by [employer] Active Lidocaine 4 % External Patch (Aspercreme) [...] AT BEDTIME 90 Tablet 1 10/28/2023 Active hydroCHLOROthiazid e 25 MG Oral Tablet [...] FOR ANXIETY 90 Tablet 03/10/2024 Active Nystatin 361366 UNIT/GM External Powder (Nystop) Apply topically to [...] TIMES DAILY 90 Capsule 1 04/20/2024 Active Pregabalin 150 MG Oral Capsule (Lyrica) TAKE 1 CAPSULE BY MOUTH THREE TIMES DAILY 90 Capsule 1 02/18/2024 04/20/20 24 Discontinued documented as of this encounter (statuses as of 04/20/2024) Active Problems Problem Noted Date Diagnosed Date [...] reflux disease without esophagi tis 07/12/2019 Old [place] (myocardial infarction) 07/12/2019 Type 2 diabetes mellitus [...] as of this encounter (statuses as of 04/20/2024) Resolved Problems Problem Noted Date Diagnosed Date [...] as of this encounter (statuses as of 04/20/2024) Immunizations Name Administration Dates Next Due COVID-19 mRNA, LNP-s, No Pre serve, 2-Dose Series ([employer]) 10/17/2020,09/19/2020 Covid-19, Mrna, Lnp-s, Pf, B ivalent, 30 Mcg, IM, 12 yrs and above ([employer]) 06/04/2022 Pneumococcal Conjugate Vacc, 13 Valent (Prevnar) [...] Telephone Encounter - Lloyd Villa MD - 04/20/2024 4:51 PM EDTSigned Prescriptions: Disp Refills Pregabalin 150 MG Oral Capsule (Lyrica) 90 Cap*1 Sig: TAKE 1 CAPSULE BY MOUTH THREE TIMES DAILYAuthorizing Provider: LLOYD VILLA * Telephone Encounter - Maggie Ross RPh - 04/20/2024 3:23 PM EDTPending Prescriptions: Disp Refills Pregabalin 150 MG Oral Capsule (Lyrica) 90 Cap*1 Sig: TAKE 1 CAPSULE BY MOUTH THREE TIMES DAILY * Telephone Encounter - Maggie Ross RPh - 04/20/2024 3:23 PM EDT I have reviewed the patients controlled substance dispensing history in the Prescription Drug Monitoring Program in compliance with the [facility] regulations before prescribing a controlled substance. PDMP checked on 04/20/2024. Pending Prescriptions: Disp Refills Pregabalin 150 MG Oral Capsule (Lyrica) [*90 Cap*1 Sig: TAKE 1 CAPSULE BY MOUTH THREE TIMES DAILY Last Visit: 10/28/2023 (in office), Visit date not found (telemedicine) Next Visit: 05/25/2024 Date medication was last filled: 03/23/24 Date medication is due for refill: 04/21/24 [facility] [address] [address] [address] Is this request for a controlled substance? Yes and Urine Drug Screen Not completed Toxicology results: No results found. However, due to the size of the patient record, not all encounters were searched.Please check Results Review for a complete set of results. Please approve if appropriate. Thanks, Maggie Ross Clinical Pharmacist [facility] ([facility]) [phone] 04/20/2024, 3:23 PM documented in this encounter Plan of Treatment Upcoming Encounters Date Type Department Care Team (Late st Contact Info) Description 04/21/2024 2:00 PM EDT Scheduled Telephone Interventional Pain Center, [facility] [address] [facility] [address] [address] Vin Nurse Phone Call Interventional Pain [facility] [address] [facility] [place] [address] 05/25/2024 1:20 PM EST [facility] [address] [facility] [phone] Lloyd Villa MD [address] [place] [facility] [place] [address] 05/31/2024 9:30 AM EST Imaging Vascular Lab, [facility] 2nd Floor, [place] [address] [place] [address] 07/13/2024 1:40 PM EST Office Visit Podiatry [facility], [place] [address] [place] [address] Danielle Burns, [facility] [address] [place] [address] 09/09/2024 1:20 PM EST [facility] [address] [place] [phone] Ran Millan PA-C [address] [place], [place] [phone] 09/30/2024 1:00 PM EDT Office Visit Pharmacy, [place] [address] [place] [address] [facility] [facility] [address] [place] [address] Health Maintenance Due Date Last Done Comments Adult Wellness Visit 02/27/2020 02/26/2019 Depression Screening 04/25/2023 04/25/2022, 09/30/2017, 09/13/2014 (Discussed) B-12 08/12/2023 08/12/2022, 01/05, 08/11/2018, Additional history exists CKD PHOS USE SMARTSET 06775 11/19/202311/04, 03/13/2021, 01/30/2021, Additional history exists Diabetic Eye Exam 01/10/2024 01/09/2023, , 12/31/2019, Additional history exists COVID-19 Vaccine ( season) 2024 06/04/2022, 10/17/2020, 09/19/2020 GFR 03/07/2024 09/05/2023, 04/07, 11/18/2022, Additional history exists HbA1c 03/07/2024 09/05/2023, 04/07, 11/18/2022, Additional history exists Mammogram 03/25/2024 03/25/2023, 08/07, 08/24/2021, Additional history exists CKD HGB USE SMARTSET 27592 04/25/202404/25, 06/18/2022, 06/11/2022, Additional history exists Diabetic [...] and were consensually agreed upon. Care Teams Melt House Supervisor Relationship Specialty Start Date End Date Lloyd Villa MD [address] [address] PCP - General Family Medicine 03/22/21 documented as of this encounter
--- OUTSIDE RECORDS SUMMARY | 2024-08-31 18:23 | External Medical Summary | Summary of Care ---
Author Name Unknown Organization [facility] Address [address] [facility] [place] [address] Phone [phone] Care Team Providers Care Industrial Maintenance Manager Name Role Phone Lloyd Villa MD Primary Care Provider +1- [phone] Encounter Details Date Type Department Care Team (Late st Contact Info) Description 04/02/[address] [address] [facility] [address] [facility] [place] [address] Allergies Active Allergy Reactions Criticality Noted Date Comments Ciprofloxacin 05/27/2022 tendonitis Oxycodone Other (Please comment) 01/29/2016 Mental problems, confusion Other reaction(s): SEDATION Tramadol 10/28/2023 Difficult to arouse after taking medication documented as of this encounter (statuses as of 04/02/2024) Medications Medication Sig Dispensed Refills Start Date End Date Status COENZYME Q-10 100 MG PO CAPS 1 CAPSULE DAILY 10/12/2012 Active [employer] SE[employer] GLUCOSE SYSTEM W/DEVICE KIT Use as [...] as directed. Freestyle Zabrina 2 supplied by [employer] Active Lidocaine 4 % External Patch (Aspercreme) [...] hemoglobin A1c goal of less than 8.0% ([facility]) Inject 2 mg once weekly- this replaces [...] FOR ANXIETY 90 Tablet 03/10/2024 Active Nystatin 342937 UNIT/GM External Powder (Nystop) Apply topically to affected area daily. Apply to groin area as needed. 15 g 5 04/02/2024 Active documented as of this encounter (statuses [...] reflux disease without esophagi tis 07/12/2019 Old [place] (myocardial infarction) 07/12/2019 Type 2 diabetes mellitus [...] Telephone Encounter - Lloyd Villa MD - 04/02/2024 4:44 PM EDTSigned Prescriptions: Disp Refills Nystatin 711057 UNIT/GM External Powder (N*15 g 5 Sig: Apply topically to affected area daily. Apply to groin area as needed.Authorizing Provider: LLOYD VILLA * Telephone Encounter - Barbie Torrez RPh - 04/02/2024 2:57 PM EDT Pt requesting nystatin powder for discomfort in the folds near her groin area. She uses it once daily as needed. Pended for your approval. Thanks! Barbie Torrez, PharmD, BCACP Clinical Pharmacist Medication Therapy Disease Management 04/02/2024, 2:58 PM documented in this encounter Plan of Treatment Upcoming Encounters Date Type Department Care Team (Late st Contact Info) Description 04/21/2024 2:00 PM EDT Scheduled Telephone Interventional Pain Center, [facility] [address] [place] [address] Vin, Nurse Phone Call Interventional Pain [facility] [address] [place] [address] 05/25/2024 1:20 PM EST Office Visit Family Practice, [place] [address] [facility] [place] [phone] Lloyd Villa [facility] [address] [facility] [place] [address] 05/31/2024 9:30 AM EST Imaging Vascular Lab, [facility] [address] [facility] [place] [address] [facility] [place] [address] 09/09/2024 1:20 PM EST Office Visit Dermatology [facility] [address] [place] [phone] Ran Millan PA-C [address] [place] [address] 09/30/2024 1:00 PM EDT Office Visit Pharmacy, [place] [address] [facility] [place] [address] [facility] [address] [facility] [place] [address] Health Maintenance Due Date Last Done Comments Adult Wellness Visit 02/27/2020 02/26/2019 Depression Screening 04/25/2023 04/25/2022, 09/30/2017, 09/13/2014 (Discussed) B-12 08/12/2023 08/12/2022, 01/05, 08/11/2018, Additional history exists CKD PHOS USE SMARTSET 16269 11/19/202311/04, 03/13/2021, 01/30/2021, Additional history exists Diabetic Eye Exam 01/10/2024 01/09/2023, , 12/31/2019, Additional history exists COVID-19 Vaccine ( season) 2024 06/04/2022, 10/17/2020, 09/19/2020 GFR 03/07/2024 09/05/2023, 04/07, 11/18/2022, Additional history exists HbA1c 03/07/2024 09/05/2023, 04/07, 11/18/2022, Additional history exists Mammogram 03/25/2024 03/25/2023, 08/07, 08/24/2021, Additional history exists CKD HGB USE SMARTSET 11534 04/25/202404/25, 06/18/2022, 06/11/2022, Additional history exists Diabetic [...] and were consensually agreed upon. Care Teams Industrial Maintenance Manager Relationship Specialty Start Date End Date Lloyd Villa MD [address] [address] PCP - General Family Medicine 03/22/21 documented as of this encounter
--- OUTSIDE RECORDS SUMMARY | 2024-08-31 18:23 | External Medical Summary | Summary of Care ---
Author Name Unknown Organization [facility] Address [address] [place] [address] Phone [phone] Care Team Providers Care Bellhop Name Role Phone Lloyd Villa MD Primary Care Provider [phone]- [phone] Reason for Visit * Reason Onset Date Comments Medication Refill 04/13/2024 Encounter Details Date Type Department Care Team (Late st Contact Info) Description 04/13/2024 Refill [facility] [address] [place] [address] Lloyd Villa MD [address] [place] [address] Type 2 diabetes mellitus with hemoglobin A1c goal of less than 8.0% ([facility]) Allergies Active Allergy Reactions Criticality Noted Date Comments Ciprofloxacin 05/27/2022 tendonitis Oxycodone Other (Please comment) 01/29/2016 Mental problems, confusion Other reaction(s): SEDATION Tramadol 10/28/2023 Difficult to arouse after taking medication documented as of this encounter (statuses as of 04/13/2024) Medications Medication Sig Dispensed Refills Start Date [...] Excedrin Extra Strength 250-250-65 MG Oral Tablet (Aspirin-Acetaminop hen-Caffeine) Take 1 Tablet by mouth every 6 hours as needed. Active FreeStyle Zabrina 2 Sensor Use as directed. Freestyle Zabrina 2 supplied by [employer] Active Lidocaine 4 % External Patch (Aspercreme) Place 1 Patch over 12 hours topically on the skin daily. 30 Patch 11 04/22/2023 Active Triamcinolone Acetonide 0.1 % External Cream (Aristocort) Apply topically to affected area 2 times a day. To affected area. 80 g 5 04/24/2023 Active BD Pen Needle Kaci 2nd Gen 32G X 4 MM (Insulin Pen Needle)Indications: Type 2 diabetes mellitus with hemoglobin A1c goal of less than 8.0% (HCC) Use to inject insulin once daily. 100 Each 3 06/26/2023 Active DuoDERM CGF Dressing External Apply 1 Each topically to affected area in the morning. 20 Each 3 08/08/2023 Active Dicyclomine HCl 10 MG Oral Capsule (Bentyl)Indications :Diverticulosis of large intestine without hemorrhage TAKE 1 [...] Omeprazole 20 MG Oral Capsule Delayed Release (PriLOSEC)Indicatio ns:Gastroesophageal reflux disease without esophagitis TAKE 1 CAPSULE BY MOUTH BEFORE BREAKFAST 90 Capsule 3 09/26/2023 Active Shingrix 50 MCG/0.5ML Intramuscular Suspension Reconstituted (Zoster Vac Recomb Adjuvanted)Indicati ons:Type 2 diabetes mellitus with hemoglobin A1c [...] Active Atorvastatin Calcium 40 MG Oral Tablet (Lipitor)Indication s:Dyslipidemia, goal LDL below 100 TAKE 1 TABLET BY MOUTH ONCE DAILY AT BEDTIME 90 Tablet 1 10/28/2023 Active hydroCHLOROthiazide 25 MG Oral Tablet (Hydrodiuril) Take 1 tablet by mouth once daily 30 Tablet 5 12/15/2023 Active Ozempic (2 MG/DOSE) 8 MG/3ML Subcutaneous Solution Pen-injector (Semaglutide (2 MG/DOSE))Indication s:Type 2 diabetes mellitus with hemoglobin A1c goal of less than 8.0% (HCC) Inject 2 mg once weekly- this replaces trulicity 9 mL 4 12/30/2023 Active Pregabalin 150 MG Oral Capsule (Lyrica) TAKE 1 CAPSULE BY MOUTH THREE TIMES DAILY 90 Capsule 1 02/18/2024 Active LORazepam 0.5 MG Oral Tablet (Ativan)Indications :Anxiety state TAKE 1 TABLET BY MOUTH THREE TIMES DAILY NEEDED FOR ANXIETY 90 Tablet 03/10/2024 Active Nystatin 214409 UNIT/GM External Powder (Nystop) Apply topically to affected area daily. Apply to groin area as needed. 15 g 5 04/02/2024 Active Insulin Glargine-yfgn 100 UNIT/ML Subcutaneous Solution Pen-injector (Semglee (yfgn))Indications: Type 2 diabetes mellitus with hemoglobin A1c goal of less than 8.0% (HCC) Inject 36 units under the skin once daily 45 mL 3 04/13/2024 Active Insulin Glargine-yfgn 100 UNIT/ML Subcutaneous Solution Pen-injector (Semglee (yfgn))Indications: Type 2 diabetes mellitus with hemoglobin A1c goal of less than 8.0% (HCC) Inject 36 units under the skin once daily 45 mL 01/15/2024 4 Discontinue d(Refill) documented as of this encounter (statuses as of 04/13/2024) Active Problems Problem Noted Date Diagnosed Date [...] reflux disease without esophagi tis 07/12/2019 Old [place] (myocardial infarction) 07/12/2019 Type 2 diabetes mellitus [...] as of this encounter (statuses as of 04/13/2024) Resolved Problems Problem Noted Date Diagnosed Date [...] as of this encounter (statuses as of 04/13/2024) Immunizations Name Administration Dates Next Due COVID-19 mRNA, LNP-s, No Pre serve, 2-Dose Series ([employer]) 10/17/2020,09/19/2020 Covid-19, Mrna, Lnp-s, Pf, B ivalent, [...] Telephone Encounter - Lloyd Villa MD - 04/13/2024 8:09 PM EDTSigned Prescriptions: Disp Refills Insulin Glargine-yfgn 100 UNIT/ML Subcutan*45 mL 3 Sig: Inject 36 units under the skin once dailyAuthorizing Provider: LLOYD VILLA * Telephone Encounter - Vivi Berman, community nurse - 04/13/2024 9:59 AM EDT Did you pend patient's preferred pharmacy and medication before forwarding?yes Pharmacy: [facility] [id number] [address] [address] Pending Prescriptions: Disp Refills Insulin Glargine-yfgn 100 UNIT/ML Subcuta*45 mL 0 Sig: Inject 36 units under the skin once daily Last Visit: 10/28/2023 (in office), Visit date not found (telemedicine) Next Visit: 05/25/2024 If no future appointments scheduled, and last appointment is greater than a year ago, please schedule patient for a follow-up appointment Last date the medication was ordered: Is this request for a controlled substance?No Urine Drug Screen:No results found. However, due to the size of the patient record, not all encounters were searched. Please check Results Review for a complete set of results. Patient Phone Numbers Labs: Lab Results Component Value Date/Time CREAT 1.1 (H) 09/05/2023 10:00 AM CREAT 1.0 05/16/2020 11:45 AM POTASSIUM 4.5 09/05/2023 10:00 AM POTASSIUM 5.4 (H) 05/16/2020 11:45 AM TSH 1.55 12/15/2018 02:35 PM LDL 61 09/05/2023 10:00 AM LDL 66 05/19/2019 02:22 PM LDL 71 03/31/2018 09:57 AM ALT 43 (H) 09/05/2023 10:00 AM ALT 19 05/19/2019 02:22 PM HGBA1C 7.3 (H) 09/05/2023 10:00 AM HGBA1C 7.1 (H) 03/30/2020 01:28 PM documented in this encounter Plan of Treatment Upcoming Encounters Date Type Department Care Team (Late st Contact Info) Description 04/21/2024 2:00 PM EDT Scheduled Telephone Interventional Pain Center, [facility] [address] [address] [facility], Nurse Phone Call Interventional Pain [place] [address] [address] 05/25/2024 1:20 PM EST Office Visit [facility] [place] [id number] [facility] [place] [address] Lloyd Villa MD [address] [place] [facility] [place] [address] 05/31/2024 9:30 AM EST Imaging Vascular Lab, [facility] 2nd [facility] [address] [address] 07/13/2024 1:40 PM EST Office Visit Podiatry [facility] [address] [facility] [address] [place] [address] Danielle Burns, PARMJIT [address] [place] [address] 09/09/2024 1:20 PM EST Office Visit Dermatology [facility] [address] [place] [phone] Ran Millan PA-C [address] [place] [address] 09/30/2024 1:00 PM EDT Office Visit Pharmacy, [place] [address] [place] [facility] [place] [address] [place], [facility] [address] [place] [address] Health Maintenance Due Date Last Done Comments Adult Wellness Visit 02/27/2020 02/26/2019 Depression Screening 04/25/2023 04/25/2022, 09/30/2017, 09/13/2014 (Discussed) B-12 08/12/2023 08/12/2022, 01/05, 08/11/2018, Additional history exists CKD PHOS USE SMARTSET 90463 11/19/202311/04, 03/13/2021, 01/30/2021, Additional history exists Diabetic Eye Exam 01/10/2024 01/09/2023, , 12/31/2019, Additional history exists COVID-19 Vaccine ( season) 2024 06/04/2022, 10/17/2020, 09/19/2020 GFR 03/07/2024 09/05/2023, 04/07, 11/18/2022, Additional history exists HbA1c 03/07/2024 09/05/2023, 04/07, 11/18/2022, Additional history exists Mammogram 03/25/2024 03/25/2023, 08/07, 08/24/2021, Additional history exists CKD HGB USE SMARTSET 96568 04/25/202404/25, 06/18/2022, 06/11/2022, Additional history exists Diabetic [...] A1c goal of less than 8.0% (HCC) documented in this encounter Advance Directives * [...] and were consensually agreed upon. Care Teams Bellhop Relationship Specialty Start Date End Date Lloyd Villa MD [address] [place] [address] PCP - General Family Medicine 03/22/21 documented as of this encounter
--- OUTSIDE RECORDS SUMMARY | 2024-08-31 18:23 | External Medical Summary | Summary of Care ---
Author Name Unknown Organization [facility] Address [address] [place] [address] Phone [phone] Care Team Providers Care Account Services Representative Name Role Phone Case House MD Primary Care Provider [phone]- [phone] Reason for Visit * Reason Onset Date Comments STAIR 06/14/2022 AAA Encounter Details Date Type Department Care Team (Late st Contact Info) Description 06/14/2022 Telephone Vascular Surg [facility] [address], [place] [phone] Program, [place] [address] [place] [address] STAIR (AAA) Allergies Active Allergy Reactions Criticality Noted Date Comments Ciprofloxacin 05/27/2022 tendonitis Oxycodone Other (Please comment) 01/29/2016 Mental problems, confusion Other reaction(s): SEDATION Tramadol 10/28/2023 Difficult to arouse after taking medication documented as of this encounter (statuses as of 03/31/2024) Medications Medication Sig Dispensed Refills Start Date End Date Status COENZYME Q-10 100 MG PO CAPS 1 CAPSULE DAILY 3 Active FamelyON EvogenA GLUCOSE SYSTEM W/DEVICE KIT Use as directed [...] mouth every 6 hours as needed. Active Diclofenac Sodium 1 % External Gel (Voltaren)Indicat ions:Neck pain Apply to the neck area for muscle spasm twice a day 100 g 1 1 10/08/19 23 Discontinued(Ref ill) hydroCHLOROthiazi de 25 MG Oral Tablet (Hydrodiuril) Take 1 Tablet by mouth daily. 30 Tablet 11 2 07/29/19 23 Discontinued Pen [place] 32G X 4 MMIndications:Typ e 2 diabetes mellitus with hemoglobin A1c goal of less than 8.0% ([facility]) Use to inject insulin once daily. 100 Each 3 2 11/19/19 23 Discontinued(Ref ill) Omeprazole 20 MG Oral Capsule Delayed Release (PriLOSEC)Indicat ions:Gastroesopha geal reflux disease without esophagitis TAKE 1 CAPSULE BY MOUTH BEFORE BREAKFAST 90 Capsule 1 2 07/08/19 23 Discontinued Empagliflozin 10 MG Oral Tablet (Jardiance) Take by mouth 1 Tablet in the morning. 30 Tablet 5 2 07/24/19 23 Discontinued metFORMIN HCl ER 750 MG Oral Tablet Extended Release 24 Hour (Glucophage XR)Indications:Ty pe 2 diabetes mellitus with stage 3a chronic kidney disease, without long-term current use of insulin ([facility]) Take 1 tablet by mouth twice daily 180 Tablet 1 2 09/17/19 23 Discontinued(Ref ill) Atorvastatin Calcium 40 MG Oral Tablet (Lipitor)Indicati ons:Dyslipidemia, goal LDL below 100 TAKE 1 TABLET BY MOUTH ONCE DAILY AT BEDTIME 90 Tablet 1 2 10/30/19 23 Discontinued(Ref ill) Trulicity 1.5 MG/0.5ML Subcutaneous Solution Pen-injector (Dulaglutide) Inject under the skin 1.5 mg once a week . 2 mL 3 2 07/22/19 23 Discontinued Pregabalin 150 MG Oral Capsule (Lyrica) TAKE 1 CAPSULE BY MOUTH THREE TIMES DAILY 90 Capsule 1 2 07/23/19 23 Discontinued Repaglinide 0.5 MG Oral Tablet (Prandin)Indicati ons:Type 2 diabetes mellitus with stage 3a chronic kidney disease, without long-term current use of insulin (HCC) TAKE 1 TABLET BY MOUTH THREE TIMES DAILY BEFORE MEAL(S) 270 Tablet 1 2 07/22/19 23 Discontinued LORazepam 0.5 MG Oral Tablet (Ativan)Indicatio ns:Anxiety state TAKE 1 TABLET BY MOUTH THREE TIMES DAILY NEEDED FOR ANXIETY 90 Tablet 2 07/16/19 23 Discontinued Dicyclomine HCl 10 MG Oral Capsule (Bentyl)Indicatio ns:Diverticulosis of large intestine without hemorrhage TAKE 1 CAPSULE BY MOUTH 4 TIMES DAILY NEEDED FOR ABDOMINAL PAIN 120 Capsule 2 07/24/19 23 Discontinued documented as of this encounter (statuses as of 03/31/2024) Active Problems Problem Noted Date Diagnosed Date [...] reflux disease without esophagi tis 07/12/2019 Old [place] (myocardial infarction) 07/12/2019 Type 2 diabetes mellitus [...] as of this encounter (statuses as of 03/31/2024) Resolved Problems Problem Noted Date Diagnosed Date [...] as of this encounter (statuses as of 03/31/2024) Immunizations Name Administration Dates Next Due COVID-19 [...] Cigarettes 1 22 0 [birth year]/07/1965 - 07/07/1987 Smokeless Tobacco: Never Alcohol Use Standard Drinks/Week [...] as of this encounter Miscellaneous Notes * Addendum Note - Dionte Granados LPN - 03/31/2024 2:52 PM EDTAddended by: DIONTE GRANADOS on: 03/31/2024 02:52 PM Modules accepted: Orders * Telephone Encounter - Dionte Granados LPN - 03/31/2024 2:47 PM EDT AAA - Communication to Patient Patient is due for imaging of AAA in May. Called and spoke to patient. Scheduled. Dionte Granados LPN Coordinator LUCY (System to Track Abnormalities of Importance Reliably) [phone] * Telephone Encounter - Dionte Granados LPN - 09/06/2022 10:27 AM EST Patient managed in STAIR Program for Abdominal Aortic Aneurysm - banner added * Telephone Encounter - Dionte Granados LPN - 06/14/2022 8:34 AM EST AAA - Clinical Summary Name: Thuy Vargas Age: [age] year old Patient Identified by: NLP Report Imaging Interpretation: CT Type of Result: AAA 3.0 to 3.9 cm AAA Care Plan Recommendation: Duplex ultrasound in 2 years Next steps: No action needed at this time Dionte Granados LPN Coordinator LUCY (System to Track Abnormalities of Importance Reliably) CT ABD/PELVIS W IV AND W ORAL CONTRAST 05/23/2022 Narrative PROCEDURE INFORMATION: Exam: CT Abdomen And Pelvis With Contrast Exam date and time: 05/23/2022 11:33 AM Age: 81 years old Clinical indication: Diverticulitis of large intestine without perforation or abscess without bleeding TECHNIQUE: Imaging protocol: Computed tomography of the abdomen and pelvis with contrast. Total images: 787 Radiation optimization: All CT scans at this facility use at least one of these dose optimization techniques: automated exposure control; mA and/or kV adjustment per patient size (includes targeted exams where dose is matched to clinical indication); or iterative reconstruction. 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 Heart: Coronary artery calcification. Liver: Hepatic steatosis. Gallbladder and bile ducts: Normal. No calcified stones. No ductal dilation. Pancreas: Normal. No ductal dilation. Spleen: Normal. No splenomegaly. Adrenal glands: Normal. No mass. Kidneys and ureters: Probable small cyst lateral left kidney. Stomach and bowel: Colonic diverticula. Small area inflammation/encapsulated fat along the lateral aspect of the distal left colon. Appendix: No evidence of appendicitis. Intraperitoneal space: Unremarkable. No free air. No significant fluid collection. Vasculature: Minimally aneurysmal distal abdominal aorta 3.1 cm. Lymph nodes: Unremarkable. No enlarged lymph nodes. Urinary bladder: Unremarkable as visualized. Reproductive: Unremarkable as visualized. Bones/joints: Advanced lumbar spondylosis. Progression of superior endplate compression deformity of L1. Overall loss of vertebral body height is now approximately 40%. Soft tissues: Tiny umbilical hernia containing fat. Impression IMPRESSION: 1. Small area of inflammation/ encapsulated fat distal left colon. Most likely represents an area of epiploic appendagitis and less likely a small focus of acute diverticulitis. 2. No other evidence for acute process. 3. Some progression of superior endplate compression fracture deformity of L1 as above. 4. See above for other details COMMENTS: Consistent with the [employer]'s Incidental Findings Committee white paper (J Am Godfrey Radiol 2018): Any incidental renal lesion less than 1 cm or classified as too small to characterize, or any incidental cystic renal lesion characterized as simple-appearing, is likely benign. No follow-up imaging is recommended for these lesions per consensus recommendations based on imaging criteria. THIS DOCUMENT HAS BEEN ELECTRONICALLY SIGNED BY SHANNA DUNN MD AAA - Communication to Patient Patient contacted, recommendations reviewed, patient agrees, follow-up letter sent. Spoke to . Enrolled in STAIR. PCP - JOLENE Granados LPN Coordinator STAIR (System to Track Abnormalities of Importance Reliably) [phone] documented in this encounter Plan of Treatment Upcoming Encounters Date Type Department Care Team (Late st Contact Info) Description 04/02/2024 2:30 PM EDT [facility] [place] [address] [facility] [address] [facility] [address] [facility] [address] 04/06/2024 1:20 PM EDT Office Visit Podiatry [facility] [address] [facility] [address] [address] Danielle Burns DPM [address] [facility] [address] [address] 04/21/2024 2:00 PM EDT Scheduled Telephone Interventional Pain Center, [facility] [address] [facility] [address] [address] [facility], Nurse Phone Call Interventional Pain [address] [place] [address] 05/25/2024 1:20 PM EST Office Visit Family Practice, [place] [address] [facility] [address] Case House MD [address] [place] [address] 05/31/2024 9:30 AM EST Imaging Vascular Lab, [facility] 2nd Floor, [place] [address] [facility] [place] [address] 09/09/2024 1:20 PM EST Office Visit Dermatology [facility] [address] [place] [phone] Ran Millan PA-C [address] [place] [address] Scheduled Orders Name Type Priority Associated Diagnoses Orde r Schedule VASC AORTIC DUPLEX EVAL-COMPLETE Medical Imaging Routine Abdominal aortic aneurysm (AAA) without rupture, unspecified part (HCC) Ordered: 03/31/2024 Health Maintenance Due Date Last Done Comments Adult Wellness Visit 02/27/2020 02/26/2019 Depression Screening 04/25/2023 04/25/2022, 09/30/2017, 09/13/2014 (Discussed) B-12 08/12/2023 08/12/2022, 01/05, 08/11/2018, Additional history exists CKD PHOS USE SMARTSET 32760 11/19/202311/04, 03/13/2021, 01/30/2021, Additional history exists Diabetic [...] Additional history exists CKD HGB USE SMARTSET 52982 04/25/202404/25, 06/18/2022, 06/11/2022, Additional history exists Diabetic [...] as of this encounter Visit Diagnoses Diagnosis Abdominal aortic aneurysm (AAA) without rupture, unspecified part (HCC)- Primary documented in this encounter Additional Health Concerns Infection Onset Date Last Indicated Resolved Time COVID-19 (confirmed) 08/16/2023 08/16/2023 024 12:21 AM EST documented as of this encounter Advance Directives * [...] and were consensually agreed upon. Care Teams Account Services Representative Relationship Specialty Start Date End Date Case House MD [address] [place] [address] PCP - General Family Medicine 03/22/21 documented as of this encounter
--- OUTSIDE RECORDS SUMMARY | 2024-08-31 18:23 | External Medical Summary | Summary of Care ---
Author Name Unknown Organization [facility] Address [address] [address] Phone [phone] Care Team Providers Care Retinal Surgeon Name Role Phone Case House MD Primary Care Provider [phone]- [phone] Reason for Visit * Reason Onset Date Comments Follow Up 04/21/2024 Encounter Details Date Type Department Care Team (Late st Contact Info) Description 04/21/2024 2:00 PM EDT Scheduled Telephone Interventional Pain Center, [facility] [address] [address] [facility], Nurse Phone Call Interventional Pain [facility] [address] [place] [address] Arrived Allergies Active Allergy Reactions Criticality Noted Date Comments Ciprofloxacin 05/27/2022 tendonitis Oxycodone Other (Please comment) 01/29/2016 Mental problems, confusion Other reaction(s): SEDATION Tramadol 10/28/2023 Difficult to arouse after taking medication documented as of this encounter (statuses as of 04/21/2024) Medications Medication Sig Dispensed Refills Start Date [...] as directed. Freestyle Zabrina [address] [facility] [employer] Active Lidocaine 4 % External Patch (Aspercreme) [...] 12/30/2023 Active LORazepam 0.5 MG Oral Tablet (Ativan)Indications: Anxiety state TAKE 1 TABLET BY MOUTH THREE TIMES DAILY NEEDED FOR ANXIETY 90 Tablet 03/10/2024 Active Nystatin 297763 UNIT/GM External Powder (Nystop) Apply topically to [...] TIMES DAILY 90 Capsule 1 04/20/2024 Active documented as of this encounter (statuses as of 04/21/2024) Active Problems Problem Noted Date Diagnosed Date [...] reflux disease without esophagi tis 07/12/2019 Old [place] (myocardial infarction) 07/12/2019 Type 2 diabetes mellitus [...] as of this encounter (statuses as of 04/21/2024) Resolved Problems Problem Noted Date Diagnosed Date [...] as of this encounter (statuses as of 04/21/2024) Immunizations Name Administration Dates Next Due COVID-19 mRNA, LNP-s, No Pre serve, 2-Dose Series ([employer]) 10/17/2020,09/19/2020 Covid-19, Mrna, Lnp-s, Pf, B ivalent, 30 Mcg, IM, 12 yrs and above ([employer]) 06/04/2022 Pneumococcal Conjugate Vacc, 13 Valent (Prevnar) [...] encounter Miscellaneous Notes * Telephone Encounter - Farida Treviño LPN - 04/21/2024 11:31 AM EDT Caudal epidural steroid injection on 03/19/24 Patient very confused on the phone, states she doesn't even remember having the shot in her back, thought she had one in her arm. But is currently not having any back pain. States she has tightness in right lower leg but unsure if it's related to the back and doesn't know how long it's been bothering her. Will call if back pain returns. documented in this encounter Plan of Treatment Upcoming Encounters Date Type Department Care Team (Late st Contact Info) Description 05/25/2024 1:20 PM EST Office Visit [facility] [address] [place] [facility] [place] [address] Case House MD [address] [place] [address] 05/31/2024 9:30 AM EST Imaging Vascular Lab, [facility] 2nd [facility] [place] [address] [place] [address] 07/13/2024 1:40 PM EST Office Visit Podiatry [facility] [address] [facility] [place] [address] Danielle Burns DPM [address] [place] [address] 09/09/2024 1:20 PM EST Office Visit Dermatology [facility] [address] [place] [phone] Ran Millan PA-C [address] [place] [address] 09/30/2024 1:00 PM EDT Office Visit Pharmacy, [place] [address] [place] [address] [facility] [address] [place] [address] Health Maintenance Due Date Last Done Comments Adult Wellness Visit 02/27/2020 02/26/2019 Depression Screening 04/25/2023 04/25/2022, 09/30/2017, 09/13/2014 (Discussed) B-12 08/12/2023 08/12/2022, 01/05, 08/11/2018, Additional history exists CKD PHOS USE SMARTSET 88072 11/19/202311/04, 03/13/2021, 01/30/2021, Additional history exists Diabetic Eye Exam 01/10/2024 01/09/2023, , 12/31/2019, Additional history exists COVID-19 Vaccine ( season) 2024 06/04/2022, 10/17/2020, 09/19/2020 GFR 03/07/2024 09/05/2023, 04/07, 11/18/2022, Additional history exists HbA1c 03/07/2024 09/05/2023, 04/07, 11/18/2022, Additional history exists Mammogram 03/25/2024 03/25/2023, 08/07, 08/24/2021, Additional history exists CKD HGB USE SMARTSET 49333 04/25/202404/25, 06/18/2022, 06/11/2022, Additional history exists Diabetic [...] and were consensually agreed upon. Care Teams Retinal Surgeon Relationship Specialty Start Date End Date Case House MD [address] [facility] [place] [address] PCP - General Family Medicine 03/22/21 documented as of this encounter
--- OUTSIDE RECORDS SUMMARY | 2024-08-31 18:23 | External Medical Summary | Summary of Care ---
Author Name Unknown Organization [facility] Address [address] [place] [address] Phone [phone] Care Team Providers Care Reflector Driller And Deburrer Name Role Phone Case House MD Primary Care Provider [phone]- [phone] Reason for Visit * Reason Comments Diabetic Foot Care Encounter Details Date Type Department Care Team (Late st Contact Info) Description 04/06/2024 1:20 PM EDT Office Visit Podiatry [facility] [address] [place] [address] Danielle Burns DPM [address] [place] [address] Onychomycosis*; Pain in toe of right foot; Ingrowing nail, right great toe; Type 2 diabetes mellitus with stage 3a chronic kidney disease, without long-term current use of insulin ([facility]) Allergies Active Allergy Reactions Criticality Noted Date Comments Ciprofloxacin 05/27/2022 tendonitis Oxycodone Other (Please comment) 01/29/2016 Mental problems, confusion Other reaction(s): SEDATION Tramadol 10/28/2023 Difficult to arouse after taking medication documented as of this encounter (statuses as of 04/06/2024) Medications Medication Sig Dispensed Refills Start Date End Date Status COENZYME Q-10 100 MG PO CAPS 1 CAPSULE DAILY 10/12/2012 Active Clix Software[employer] GLUCOSE SYSTEM W/DEVICE KIT Use as directed [...] as directed. Freestyle Zabrina 2 supplied by [employer] Active Lidocaine 4 % External Patch (Aspercreme) [...] hemoglobin A1c goal of less than 8.0% ([facility]) Use to inject insulin [...] disease, without long-term current use of insulin ([facility]) TAKE 1 TABLET BY MOUTH [...] FOR ANXIETY 90 Tablet 03/10/2024 Active Nystatin 645748 UNIT/GM External Powder (Nystop) Apply topically to affected area daily. Apply to groin area as needed. 15 g 5 04/02/2024 Active documented as of this encounter (statuses as of 04/06/2024) Active Problems Problem Noted Date Diagnosed Date [...] reflux disease without esophagi tis 07/12/2019 [place] (myocardial infarction) 07/12/2019 Type 2 diabetes mellitus [...] as of this encounter (statuses as of 04/06/2024) Resolved Problems Problem Noted Date Diagnosed Date [...] as of this encounter (statuses as of 04/06/2024) Immunizations Name Administration Dates Next Due COVID-19 mRNA, LNP-s, No Pre serve, 2-Dose Series (Tristar) 10/17/2020,09/19/2020 Covid-19, Mrna, Lnp-s, Pf, B ivalent, 30 Mcg, IM, 12 yrs and above (Tristar) 06/04/2022 Pneumococcal Conjugate Vacc, 13 Valent (Prevnar) [...] of this encounter Progress Notes * Danielle Burns DPM - 04/06/2024 1:34 PM EDT Podiatry Established Patient Note [facility] Name: Thuy Vargas : 1940 Date: 04/06/2024 CHIEF COMPLAINT: Diabetic Nail Care HISTORY OF PRESENT ILLNESS: This patient is a 83 year old female who presents today for diabetic nail care. Pt presents today with her . She denies any pain to her feet. She states she has great feeling in her feet. She denies any other complaints at todays visit. She denies any recent changes in her medical history. Date of last PCP Visit: 10/28/2023 Past Medical History: Diagnosis Date Allergic rhinitis [...] in 5 years COLONOSCOPY, DIAGNOSTIC (RECTUM) 02/27/2016 diverticulosis/[facility] COLONOSCOPY, REMOVE LESION 04/27/07 x2, needs repeat in 2 years CYSTO/URETERO W/LITHOTRIPSY Left 08/15/2017 CYSTOURETHROSCOPY URETEROSCOPY WITH LITHOTRIPSY AND STENT INSERTION performed by Nery Bone MD at OR [facility] CYSTO/URETERO W/LITHOTRIPSY Left 08/01/2017 CYSTOURETHROSCOPY URETEROSCOPY WITH LITHOTRIPSY AND STENT INSERTION performed by Nery Bone MD at OR [facility] CYSTOSCOPY/URETERAL CATHETER Bilateral 08/15/2017 CYSTOURETHROSCOPY WITH URETERAL CATHETER performed by Nery Bone MD at OR [facility] CYSTOSCOPY/URETERAL CATHETER Bilateral 08/01/2017 CYSTOURETHROSCOPY WITH URETERAL CATHETER performed by Nery Bone MD at OR [facility] INJECT DX/THER SUBSTANCE INTERLAMINAR LUMBAR/SACRAL W IMAGE GUIDE 11/20/2020 INJECTION SPINE LUMBAR OR SACRAL performed by Jerel Melissa DO at OR [facility] INJECT DX/THER SUBSTANCE INTERLAMINAR LUMBAR/SACRAL W IMAGE GUIDE 09/22/2023 INJECTION SPINE LUMBAR OR SACRAL performed by Phi Beckwith DO at OR [facility] INJECT DX/THER SUBSTANCE INTERLAMINAR LUMBAR/SACRAL W IMAGE GUIDE 02/16/2024 INJECTION SPINE LUMBAR OR SACRAL performed by Phi Beckwith DO at OR [facility] INJECT DX/THER SUBSTANCE INTERLAMINAR LUMBAR/SACRAL W IMAGE GUIDE 03/19/2024 INJECTION SPINE LUMBAR OR SACRAL performed by Phi Beckwith DO at OR [facility] LAP;W/HYSTERECTOMY about 1992 Hysterectomy Complete- bleeding problems LUMBAR HEMILAMINECTOMY , x 2, in [place] REMOVAL OF APPENDIX age 18 Appendectomy SINUS SURGERY PROCEDURE NEC ? 1989 [place] Family History Problem Relation Name Age of [...] file Gets together: Not on file Attends sabianism service: Not on file Active member of [...] no transfusions: no exercise: no diet: no anabaptist/oriental orthodox: muslim marital status: 1966 children: 3 gc: 5 ggc: 3 pets: no exposure to violence/threats/abuse: no things to improve: health Current Outpatient Medications Medication Sig Dispense Refill COENZYME Q-10 100 MG PO CAPS 1 CAPSULE DAILY RELION ULTIMA GLUCOSE SYSTEM W/DEVICE KIT Use [...] Excedrin Extra Strength 250-250-65 MG Oral Tablet (Yywwbzx-Hegktoxkiqsrc-Jrdovwkp) Take 1 Tablet bymouth every 6 hours as needed. FreeStyle Zabrina 2 Sensor Use as directed. Freestyle Zabrina 2 supplied by [employer] 5-2.5-18.5 LF-MCG/0.5 Suspension Prefilled Syringe (Wvpovji-Wkwqoi-Lezol Pertussis) administer 0.5 ml intramuscularly as directed (Patient not taking: Reported on 02/16/2024) 0.5 mL 0 Lidocaine 4 % External Patch (Aspercreme) Place 1 Patch over 12 hours topically on the skin daily. 30 Patch 11 Triamcinolone Acetonide 0.1 % External Cream (Aristocort) Apply topically to affected area 2 times a day. To affected area. 80 g 5 BD Pen Needle Kaci 2nd Gen 32G X 4 MM (Insulin Pen Needle) Use to inject insulin once daily. 100 Each 3 DuoDERM CGF Dressing External Apply 1 Each topically to affected area in the morning. 20 Each 3 Dicyclomine HCl 10 MG Oral Capsule (Bentyl) TAKE 1 CAPSULE BY MOUTH 4 TIMES DAILY NEEDED FOR ABDOMINAL PAIN 120 Capsule 5 metFORMIN HCl ER 750 MG Oral Tablet [...] 60 to 180 days 1 Each 1 Jardiance 10 MG Oral Tablet (Empagliflozin) TAKE 1 TABLET BY MOUTH ONCE DAILY IN THE MORNING 90 Tablet 1 Atorvastatin Calcium 40 MG Oral Tablet (Lipitor) TAKE 1 TABLET BY MOUTH ONCE DAILY AT BEDTIME 90 Tablet 1 hydroCHLOROthiazide 25 MG Oral Tablet (Hydrodiuril) Take 1 tablet by mouth once daily 30 Tablet 5 Ozempic (2 MG/DOSE) 8 MG/3ML Subcutaneous Solution Pen-injector (Semaglutide (2 MG/DOSE)) Inject 2 mg once weekly- this replaces trulicity 9 mL 4 Insulin Glargine-yfgn 100 UNIT/ML Subcutaneous Solution Pen-injector (Semglee (yfgn)) Inject 36 units under the skin once daily 45 mL 0 Pregabalin 150 MG Oral Capsule (Lyrica) TAKE 1 CAPSULE BY MOUTH THREE TIMES DAILY 90 Capsule 1 LORazepam 0.5 MG Oral Tablet (Ativan) TAKE 1 TABLET BY MOUTH THREE TIMES DAILY NEEDED FOR ANXIETY 90 Tablet 0 Nystatin 413881 UNIT/GM External Powder (Nystop) Apply topically to affected area daily. Apply to groin area as needed. 15 g 5 No current facility-administered medications for this visit. [...] Nursing Notes * Jackie Peralta LPN - 04/06/2024 1:16 PM EDT Pt presents for routine diabetic nail care, states her first toes have been painful recently, not today. BSG 143 today. documented in this encounter Plan of Treatment Upcoming Encounters Date Type Department Care Team (Late st Contact Info) Description 04/21/2024 2:00 PM EDT Scheduled Telephone [facility], [facility] [address] [facility] [place] [address] Banuelos, Nurse Phone Call Interventional Pain [facility] [address] [place] [address] 05/25/2024 1:20 PM EST Office Visit [facility] [place] [address] [facility] [address] Case [facility] [address] [facility] [place] [address] 05/31/2024 9:30 AM EST Imaging Vascular Lab, [facility] II 2nd Floor, [place] [address] [place] [address] 07/13/2024 1:40 PM EST Office Visit Podiatry [facility] [address] [facility] [place] [address] Danielle Burns DPM [address] [place] [address] 09/09/2024 1:20 PM EST Office Visit Dermatology [facility] [address] [place] [address] Ran Millan PA-C [address] [place] [address] 09/30/2024 1:00 PM EDT Office Visit [facility], [place] [address] [facility] [address] [facility] [address] [facility] [address] Health Maintenance Due Date Last Done Comments Adult Wellness Visit 02/27/2020 02/26/2019 Depression Screening 04/25/2023 04/25/2022, 09/30/2017, 09/13/2014 (Discussed) B-12 08/12/2023 08/12/2022, 01/05, 08/11/2018, Additional history exists CKD PHOS USE SMARTSET 03751 11/19/202311/04, 03/13/2021, 01/30/2021, Additional history exists Diabetic Eye Exam 01/10/2024 01/09/2023, , 12/31/2019, Additional history exists COVID-19 Vaccine ( season) 2024 06/04/2022, 10/17/2020, 09/19/2020 GFR 03/07/2024 09/05/2023, 04/07, 11/18/2022, Additional history exists HbA1c 03/07/2024 09/05/2023, 04/07, 11/18/2022, Additional history exists Mammogram 03/25/2024 03/25/2023, 08/07, 08/24/2021, Additional history exists CKD HGB USE SMARTSET 62258 04/25/202404/25, 06/18/2022, 06/11/2022, Additional history exists Diabetic [...] without long-term current use of insulin (HCC) documented in this encounter Advance Directives [...] and were consensually agreed upon. Care Teams Reflector Driller And Deburrer Relationship Specialty Start Date End Date Case House MD [address] [place] [address] PCP - General Family Medicine 03/22/21 documented as of this encounter
--- OUTSIDE RECORDS SUMMARY | 2024-08-31 18:24 | External Medical Summary | Summary of Care ---
Author Name Unknown Organization [facility] Address [address] [address] Phone [phone] Care Team Providers Care Media Producer Name Role Phone Lloyd Villa MD Primary Care Provider [phone]- [phone] Reason for Visit * Reason Comments eRx-Medication Refill Encounter Details Date Type Department Care Team (Late st Contact Info) Description 03/08/2024 Refill [facility] [address] [place] [address] Lloyd Villa MD [address] [place] [address] Anxiety state Allergies Active Allergy Reactions Criticality Noted Date Comments Ciprofloxacin 05/27/2022 tendonitis Oxycodone Other (Please comment) 01/29/2016 Mental problems, confusion Other reaction(s): SEDATION Tramadol 10/28/2023 Difficult to arouse after taking medication documented as of this encounter (statuses as of 03/10/2024) Medications Medication Sig Dispensed Refills Start Date [...] as directed. Freestyle Zabrina 2 supplied by [employer]. [phone] Active Lidocaine 4 % External Patch (Aspercreme) [...] once daily. 100 Each 3 3 Active Insulin Glargine Solostar 100 UNIT/ML Subcutaneous Solution Pen-injector (Basaglar KwikPen)Indication s:Type 2 diabetes mellitus with hemoglobin A1c goal of less than 8.0% (HCC) Inject 36 Units under the skin daily. Inject up to 36 units daily as directed by MTM pharmacist 30 Each 3 3 Active Insulin Aspart 100 UNIT/ML Injection Solution (NovoLOG) Active DuoDERM CGF Dressing External Apply 1 Each topically to affected area in the morning. 20 Each 3 4 Active Additional Information Patient not taking.Reported on 02/14/2024 Dicyclomine HCl 10 MG Oral Capsule (Bentyl)Indication s:Diverticulosis of large intestine without hemorrhage TAKE 1 CAPSULE BY MOUTH 4 TIMES DAILY NEEDED FOR ABDOMINAL PAIN 120 Capsule 5 4 Active Additional Information Patient not taking.Reported on 02/16/2024 metFORMIN HCl ER 750 MG Oral Tablet [...] NEEDED FOR ANXIETY 90 Tablet 4 Active LORazepam 0.5 MG Oral Tablet (Ativan)Indication s:Anxiety state TAKE 1 TABLET BY MOUTH THREE TIMES DAILY NEEDED FOR ANXIETY 90 Tablet 07/1603/10/20 24 Discontinued documented as of this encounter (statuses as of 03/10/2024) Active Problems Problem Noted Date Diagnosed Date [...] as of this encounter (statuses as of 03/10/2024) Resolved Problems Problem Noted Date Diagnosed Date [...] as of this encounter (statuses as of 03/10/2024) Immunizations Name Administration Dates Next Due COVID-19 mRNA, LNP-s, No Pre serve, 2-Dose Series (ClearRisk) 10/17/2020,09/19/2020 Covid-19, Mrna, Lnp-s, Pf, B ivalent, [...] Telephone Encounter - Lloyd Villa MD - 03/10/2024 4:27 PM EDTSigned Prescriptions: Disp Refills LORazepam 0.5 MG Oral Tablet (Ativan) 90 Tab*0 Sig: TAKE 1 TABLET BY MOUTH THREE TIMES DAILY NEEDED FOR ANXIETYAuthorizing Provider: LLOYD VILLA * Telephone Encounter - Suzy Mahmood [facility] - 03/10/2024 10:27 AM EDT Pending Prescriptions: Disp Refills LORazepam 0.5 MG Oral Tablet 90 Tab*0 Sig: TAKE 1 TABLET BY MOUTH THREE TIMES DAILY NEEDED FOR ANXIETY * Telephone Encounter - Suzy Mahmood RP - 03/10/2024 10:15 AM EDT I have reviewed the patients controlled substance dispensing history in the Prescription Drug Monitoring Program in compliance with the [facility] regulations before prescribing a controlled substance. PDMP checked on 03/10/2024. Pending Prescriptions: Disp Refills LORazepam 0.5 MG Oral Tablet (Ativan) [Ph*90 Tab*0 Sig: TAKE 1 TABLET BY MOUTH THREE TIMES DAILY NEEDED FOR ANXIETY Last Visit: 10/28/2023 (in office), Visit date not found (telemedicine) Next Visit: 05/25/2024 Date medication was last filled: 01/20/24 Date medication is due for refill: 02/18/24 [facility] [address] [address] [address] Is this request for a controlled substance? Yes and Urine Drug Screen Not completed Toxicology results: No results found. However, due to the size of the patient record, not all encounters were searched.Please check Results Review for a complete set of results. Please approve if appropriate. Thanks, Suzy Mahmood [facility] Clinical Pharmacist [facility] [phone] documented in this encounter Plan of Treatment Upcoming Encounters Date Type Department Care Team (Latest Contact Info) Description 03/19/2024 10:05 AM EDT Hospital Encounter [facility], Operating Room [facility] [address] [address] Phi Beckwith, [address] [phone] 03/19/2024 10:05 AM EDT - 03/19/2024 10:30 AM EDT Surgery OR [facility], Operating Room [facility] [address] [place] [phone] Phi Beckwith DO [address] [place] [address] INJECTION SPINE LUMBAR OR SACRAL 04/02/2024 2:30 PM EDT [facility] [place] [address] [facility] [address] [facility] [address] [facility] [address] 04/06/2024 1:20 PM EDT Office Visit Podiatry [facility] [address] [place] [address] Danielle Burns Ihsan [address] [facility] [place] [address] 05/25/2024 1:20 PM EST Office Visit [facility], [place] [address] [facility] [address] Lloyd Villa MD [address] [place] [facility] [address] 09/09/2024 1:20 PM EST Office Visit Dermatology [facility] [address] [place] [address] Ran Millan PA-C [address] [place] [address] Scheduled Procedures Name Priority Associated Diagnoses Date/Ti me INJECTION SPINE LUMBAR OR SACRAL Lumbar radiculopathy 03/19/2024 10:05 AM EDT Health Maintenance Due Date Last Done Comments Adult Wellness Visit 02/27/2020 02/26/2019 Depression Screening 04/25/2023 04/25/2022, 09/30/2017, 09/13/2014 (Discussed) B-12 08/12/2023 08/12/2022, 01/05, 08/11/2018, Additional history exists CKD PHOS USE SMARTSET 99248 11/19/202311/04, 03/13/2021, 01/30/2021, Additional history exists Diabetic [...] Additional history exists CKD HGB USE SMARTSET 27310 04/25/202404/25, 06/18/2022, 06/11/2022, Additional history exists Diabetic [...] Diagnoses Diagnosis Anxiety state Anxiety state, unspecified Lumbar radiculopathy Thoracic or lumbosacral neuritis or radiculitis, unspecified [...] and were consensually agreed upon. Care Teams Media Producer Relationship Specialty Start Date End Date Lloyd Villa MD [address] [place] [address] PCP - General Family Medicine 03/22/21 documented as of this encounter
[2024-08-31] MEDS: OPTIRAY 320 125ml IV ONE (19:13)
[2024-08-31] MEDS ORDERED: LORazepam 0.5 MG TAB PO PRN (20:30)
[2024-08-31] MEDS ORDERED: ARTIFICIAL TEARS OP PRN (20:47)
--- NOTE | 2024-08-31 21:04 | CT Scan Report ---
CT PULMONARY ANGIOGRAM. HISTORY: Chest pain TECHNIQUE: Enhanced CT examination of the chest was performed using pulmonary embolism protocol. IV CONTRAST: 100 mL of OMNIPAQUE 300 COMPARISON: FINDINGS: LOWER NECK: There is a large left thyroid lobe based mass measuring, 8.0 x 6.0 x 9.0 (AP x TV x CC) with substernal extension. This mass causes mass effect upon the aerodigestive tract which is deviated mildly to the right. PULMONARY ARTERIES: No filling defect identified to the segmental level. LYMPH NODES: No lymphadenopathy by size criteria. CARDIOVASCULAR: Enlarged cardiac size. No right heart strain. No pericardial effusion. No aortic aneurysm. There are coronary artery calcifications in keeping with coronary artery disease. MEDIASTINUM: No solid or cystic mediastinal masses. The esophagus is normally decompressed. LUNGS/PLEURA: The central tracheo-bronchial tree is patent. No mass or consolidation identified. Extensive chronic interstitial changes of the lungs with components of emphysema and fibrosis. No pleural effusion or pneumothorax. No suspicious pulmonary nodules. BONES: No suspicious osseous lesions. VISUALIZED LOWER NECK: Unremarkable. VISUALIZED UPPER ABDOMEN: Unremarkable IMPRESSION: No pulmonary embolism identified to the segmental level. Cardiomegaly without right heart strain. Extensive chronic interstitial changes of the lungs with components of emphysema and fibrosis. Large left thyroid lobe based mass with substernal extension with multiple nodular densities. This may represent nodular goiter however recommend correlation with ultrasound and laboratory markers. There is mild mass effect being exerted upon the aerodigestive tract as above. Electronically signed by Lux Stapleton 08-31-2024 9:03 PM
[2024-08-31] MEDS: PREGABALIN 150 MG CAP PO SCH (22:16)
[2024-08-31] MEDS: DICYCLOMINE HCL 10 MG CAP PO SCH (22:17)
[2024-08-31] MEDS: ATORVASTATIN 40 MG TAB PO SCH (22:17)
[2024-08-31] MEDS: CYANOCOBALAMIN (B-12) 500 MCG TABLET PO SCH (22:17)
[2024-08-31] MEDS: INSULIN ASPART PER UNIT CHARGE SC SCH (22:33)
[2024-09-01] MEDS: MELATONIN 3 MG TAB PO PRN (00:15)
[2024-09-01 05:19] LABS: Basophils # (auto) 0.02 K/uL (0.00-0.20); Basophils % (auto) 0.3 %; Eosinophils # (auto) 0.44 K/uL (0.00-0.50); Eosinophils % (auto) 6.5 %; Hematocrit (blood only) 33.2 % (37.0-47.0); Hemoglobin 9.5 g/dl (12.0-16.0); Immature Granulocytes # (auto) 0.02 K/uL (0.01-0.20); Immature Granulocytes % (auto) 0.3 %; Lymphocytes # (auto) 1.65 K/uL (1.20-3.40); Lymphocytes % (auto) 24.6 %; Mean Corpuscular Hemoglobin 21.8 pg (25.0-34.0); Mean Corpuscular Hgb Conc 28.6 g/dL (32.0-36.0); Mean Corpuscular Volume 76.1 fL (80.0-100.0); Monocytes # (auto) 0.78 K/uL (0.11-0.59); Monocytes % (auto) 11.6 %; Neutrophils # (auto) 3.81 K/uL (1.40-6.50); Neutrophils % (auto) 56.7 %; Platelet Count 179 K/uL (130-400); RDW Coefficient of Variation 20.7 % (11.5-14.5); RDW Standard Deviation 55.8 fL (36.4-46.3); Red Blood Count 4.36 M/uL (4.20-5.40); White Blood Count 6.72 K/ul (4.8-10.8)
[2024-09-01 05:34] LABS: BUN Creatinine Ratio 14.6 (10-20); Calcium 9.3 mg/dl (8.6-10.3); Creatinine Clr Calc Pharmacy 44.3 ml/min; Potassium 3.9 mmol/L (3.5-5.1)
[2024-09-01 06:03] LABS: Anisocytosis Present; Ovalocytes 1+; Polychromasia 1+
[2024-09-01] MEDS: PANTOprazole 40 MG TAB PO SCH (10:10)
[2024-09-01] MEDS: hydroCHLOROthiazide 25 MG TAB PO SCH (10:10)
[2024-09-01] MEDS: LANTUS PER UNIT CHARGE SQ SCH (10:11)
--- NOTE | 2024-09-01 13:40 | Urology Consultation ---
Date of Consultation September 01, 2024 Assessment & Plan (1) Gross hematuria: 83-year-old female admitted for gross hematuria, anemia and acute hypoxic respiratory failure Urology consulted for hematuria Patient afebrile, hemodynamically stable Labs reviewedcreatinine 1.03 WBC 6.72, hemoglobin 9.5 UA with 2+ LE, >50 WBC, >20 RBC, negative for bacteria Urine culture pending CT abdomen pelvis reviewed and discussedbilateral nonobstructing renal calculi, no ureteral calculi or hydronephrosis Regarding bleeding, it is unclear if it's from urinary tract or possible gynecologic Recommend continue antibiotics and follow urine culture Hernandez currently in place and draining clear yellow urine Can maintain catheter for now and monitor for any recurrent bleeding/identify source, okay to remove catheter prior to discharge Discussed cystoscopy as outpatient to finalize hematuria work-up Will arrange outpatient follow-up with our service Continue supportive care and medical management per hospital medicine will follow peripherally, please contact our service with questions/concerns History of Present Illness Reason for Consultation: Hematuria Attending Physician: [place] Hutchinson MD History of Present Illness This is an 83-year-old female who presented to the emergency department on 08/31/2024 for evaluation of gross hematuria. On arrival to ED, she was afebrile, hemodynamically stable. Lab work showed hemoglobin 9.7, WBC 7.53, creatinine 1.13. Urinalysis showed 2+ blood, 2+ LE, >50 WBC, >20 RBC, 6-10 epithelial cells, negative for bacteria. Workup included CT abdomen pelvis which showed a 3 mm nonobstructing calculus in the left kidney, a few nonobstructing calculi in the right kidney measuring up to 3 to 4 mm. No hydronephrosis. She was treated with ceftriaxone in the emergency department. She was admitted to the hospital medicine service for further evaluation. Urology is consulted for hematuria. Since admission, a three-way Hernandez catheter was inserted with return of clear urine. Hemoccult testing negative. External pelvic exam by hospitalist revealed small excoriation on the labia. Labs todaycreatinine 1.03, WBC 6.72, hemoglobin 9.5. Urine culture is pending. Patient seen and examined in the emergency department. She is awake and resting in bed. She reports first noting blood in her underwear 5 days ago. She reports using a pad because bleeding worsened. She noted some clots in the pad. Bleeding improved and then returned prompting ED evaluation. No significant flank pain associated. Reports some discomfort in left lower abdomen/pelvis. She is unsure if blood was coming from her urine stream. Denies blood in her stool. She reports she typically has constipation. No dysuria. History of nephrolithiasis with prior stone treatment. History of hysterectomy. Former smoker. No known family hx of malignancy. Allergies Allergy/AdvReac Type Severity Reaction Status Date / Time COVID-19 vacc, bv (Orig, AdvReac Intermediate Verified 06/05/22 23:32 Omicron BA.4/5) (Pfizer) [From Pfizer COVID Bival(12y up)(PF)] oxycodone AdvReac Intermediate OVER Verified 11/05/21 14:00 SEDATED Home Medications Medication Instructions Recorded Confirmed Type omega-3 fatty acids 1,000 mg 2,000 mg PO QAM ##0 10/15/13 08/31/24 History capsule omeprazole 20 mg tablet,delayed 20 mg PO QAM ##0 10/15/13 08/31/24 History release coenzyme Q10 100 mg capsule 100 mg PO QAM ##0 01/04/16 08/31/24 History atorvastatin 40 mg tablet 40 mg PO HS ##0 04/09/17 08/31/24 History dicyclomine 10 mg capsule 10 mg PO TID Abdominal Pain ##0 04/09/17 08/31/24 History peg 400-propylene glycol 0.4 %-0.3 1 drp ophthalmic (eye) QID PRN Dry 05/12/19 08/31/24 History % eye drops (Systane Ultra) Eye(S) vitamin B complex 1 tab PO QAM 09/21/20 08/31/24 History lorazepam 0.5 mg tablet 0.5 mg PO BID Anxiety 05/24/21 08/31/24 History metformin 750 mg tablet,extended 750 mg PO BIDM 05/24/21 08/31/24 History release 24 hr pregabalin 150 mg capsule 150 mg PO TID 05/24/21 08/31/24 History accavae-dpzdwvygxvtzi-ttwxglqb 250 2 tab PO Q6H PRN Pain 09/24/21 08/31/24 History mg-250 mg-65 mg tablet (Excedrin Extra Strength) hydrochlorothiazide 25 mg tablet 25 mg PO QAM 09/24/21 08/31/24 History magnesium 250 mg tablet 250 mg PO QAM 09/24/21 08/31/24 History cyanocobalamin (vitamin B-12) 500 500 mcg PO BID 06/05/22 08/31/24 History mcg tablet (Vitamin B-12) empagliflozin 10 mg tablet 10 mg PO QAM 06/05/22 08/31/24 History (Jardiance) famotidine 10 mg tablet (Acid 10 mg PO QAM 08/31/24 08/31/24 History Overhauler Helper (famotidine)) insulin glargine 100 unit/mL (3 36 unit subcut QAM 08/31/24 08/31/24 History mL) subcutaneous pen (Lantus Solostar U-100 Insulin) semaglutide 2 mg/dose (8 mg/3 mL) 2 mg subcut WK 08/31/24 08/31/24 History subcutaneous pen injector (Ozempic) valerian root 450 mg capsule 450 mg PO DAILY 08/31/24 08/31/24 History Patient History Medical History Non-ST elevation MN (NSTEMI) Fracture of distal end of fibula Kidney stones History of MN (myocardial infarction) Osteoarthritis Dry eye syndrome Anxiety Peripheral neuropathy Surgical History Hx of colonoscopy with polypectomy History of hysterectomy History of carpal tunnel release left History of discectomy LUMBAR (TOTAL 2 LUMBAR DISCECTOMY) History of appendectomy History of tooth extraction Hx of eye surgery LASER PROCEDURE History of cataract surgery RT/LEFT S/P cystoscopy with ureteral stent placement 05/13/19 MAC Family History Brother Family history of diabetes mellitus Other Cancer Heart disease Kidney disease Social History Smoking Status: Former smoker Tobacco Type: Cigarettes Second Hand Exposure: No; Do You Dip or Chew Tobacco: No; Hx Alcohol Use: No Hx Substance Use: No Preferred Language: Chinese Communication Ability: Effective Visual Impairment: No Limitations Hearing Ability: Normal Squaring Shear Operator Required: No Beliefs That Will Affect Care: None marital status: Current Living Situation: Spouse current occupational status: retired Other Information That Helps Us Care for You: No Feels Safe at Home: Yes Safety Concerns: Feels Safe At This Time Diet: diabetic caffeine: Yes during the past year weight has: remained stable Physical Activity Frequency: Does not Exercise Seatbelt Use: always Do you think of yourself as: straight/heterosexual Gender Identity: Female Assistive Devices: Cane, Walker and Wheelchair Review of Systems Review of Systems: All systems reviewed & are unremarkable except as noted in HPI & below Physical Exam Constitutional: no acute distress Respiratory: no respiratory distress and no labored breathing supplemental oxygen Gastrointestinal (Abdomen): Inspection/Auscultation: abdomen normal to inspection Percussion/Palpation: abdomen soft Musculoskeletal: Head/Neck/Chest: normocephalic Neurologic: moves all extremities and awake Psychiatric: Orientation: alert and oriented x 3 Genitourinary: Hernandez draining clear yellow urine Results & Data Vital Signs (Past 12 Hours) Vital Signs Pulse Pulse Resp BP Pulse Ox O2 Del Method O2 Flow Rate 09/01/24 10:54 92 H 17 120/56 L 97 Room Air 09/01/24 07:19 82 09/01/24 05:00 82 17 96 Nasal Cannula 2 09/01/24 04:46 83 18 94 Nasal Cannula 2 09/01/24 04:18 88 14 97 Nasal Cannula 2 09/01/24 04:00 87 17 112/64 97 Nasal Cannula 2 09/01/24 03:15 78 14 97 Nasal Cannula 2 09/01/24 02:00 80 17 97 Nasal Cannula 2 PG Care Time/CCT Total # of Minutes Spent Total Time Spent with Patient: Total time spent is greater than 50% in coordination of care (as documented) at patient's floor/unit and/or counseling patient: Coding Level of Care Code 71439 INT INP/OBS CARE 2/55MIN Diagnoses Gross hematuria R31.0
[2024-09-01 15:35] VITALS: BP 127/67; RESP 20; TEMP 97.7; O2SAT 93
[2024-09-01] MEDS ORDERED: cefTRIAXone SODIUM 2,000 MG/50 ML BAG IV SCH (16:00)
[2024-09-01 16:02] VITALS: PULSE 92
--- NOTE | 2024-09-01 16:08 | Communication Note ---
By CMS guidelines, a determination that the admission or continued stay is not medically necessary has been made by a member of the UR committee and a physician for this hospital stay, therefore a Code 44 will be completed and the Inpatient admission will be changed to outpatient. Date of Service: September 01, 2024
--- NOTE | 2024-09-01 16:22 | Discharge Summary ---
Discharge Summary Date of Service September 01, 2024 Principal Dx & Hospital Course #1 = Principal Diagnosis (1) Gross hematuria: (2) Acute hypoxic respiratory failure: (3) Diabetes mellitus, type II: (4) CKD (chronic kidney disease), stage III: (5) Dyslipidemia: (6) Hypertension: (7) GERD (gastroesophageal reflux disease): Plan This is an 83 y/o female with DM2, hx NSTEMI, chronic HFpEF, HTN, hyperlipidemia, CKD3, prior left jugular vein thrombosis, dementia, GERD, and other history as outlined below who presents to the ED today with gross hematuria. In the ED, she was found to be hypoxic with sats 86-88% on room air, improved on 2L. Does not require O2 at baseline. Of note, she has been taking large amounts of aspirin over the last several days (preceding onset of hematuria) for a AGUIAR. #Acute hypoxic respiratory failure, resolved -has chronic lung scarring, goal oxygen sat 88% -patient at around 90% on room air, does not feel SOB -does not walk at baseline per patient #Hematuria, resolved -patient will discharge on abx -f/u with urology -urology recommending cystoscopy outpatient #Insulin-requiring DM2 with neuropathy - last A1c on 07/08/24 was 7.3 - Continue basal insulin with sliding scale - Diabetic diet - BSG ACHS - Continue pregabalin' #Hypertension - BP on my evaluation in the ED was 148/89 - Continue home medications #Dyslipidemia - Chronic, stable - continue statin #CKD3 - creatinine appears to be around baseline of 1 - Trend BMP #GERD - Chronic, stable - continue PPI Notes For Next Care Provider This is an 83 y/o female with DM2, hx NSTEMI, chronic HFpEF, HTN, hyperlipidemia, CKD3, prior left jugular vein thrombosis, dementia, GERD, and other history as outlined below who presents to the ED today with gross hematuria. ADmitted to medicine for further workup. On medicine, urology consulted, recommended outpatient follow up. Hematuria resolved, patient on room air. On 09/01/2024 patient medically stable for discharge home. Medication Changes From Visit -cipro for potential UTI Admission HPI Per Admitting Provider This is an 83 y/o female with DM2, hx NSTEMI, chronic HFpEF, HTN, hyperlipidemia, CKD3, prior left jugular vein thrombosis, dementia, GERD, and other history as outlined below who presents to the ED today with gross hematuria. Pt's at the bedside assists with the history. Pt reports starting with gross hematuria four days ago, associated incontinence. Yesterday, it seems to stop for several hours but then recurrent again by evening and this morning so came to the ED for evaluation. She has associated intermittent LLQ pain, denies flank pain. Notes nausea but no vomiting. Last BM was four days ago - bowels tend towards constipation. No blood. Appetite has been good. She has seen [facility] urology (Dr. Bone) previously for nephrolithiasis. In 2019, underwent cystoscopy with lithotripsy and stent placement due to left ureteral stone. History of intermittent gross hematuria and several kidney stones in the past. She has had a headache the last several days so she has been taking Excedrin 2 tabs every four hours over the last few days. Denies NSAIDs. She denies recent illness, cough, head congestion, chest pain, palpitations, or shortness of breath at rest. She does get winded with activity but notes limited activity as she uses a wheelchair due to balance issues. Her outpatient Epic records including prior urology and cardiology notes were reviewed to augment the history. Cardiac cath 2019 - essentially normal coronary arteries, elevated intracardiac filling pressure ECHO 03/06/21 - technically limited study; EF 50-55%; mild concentric LVH Discharge Exam Gen: A&O 3 NAD HEENT: NCAT, EOMI, not icteric. External ears normal. No rhinorrhea. Moist mucous membranes. Neck: Supple, full range of motion, no observable masses, No meningeal sign. Lungs: No Respiratory distress. CV: RRR, no edema. Abdomen: Soft, nondistended, No rebound tenderness. MSK: No joint swelling, no redness. Baseline strength per patient Skin: No rashes, petechiae, lesions. Normal color per patient. Neuro: Normal Gait, Grossly intact. Psych: Appropriate for situation. Updated Medication List Medication Instructions Recorded Confirmed Type omega-3 fatty acids 1,000 mg 2,000 mg PO QAM ##0 10/15/13 08/31/24 History capsule omeprazole 20 mg tablet,delayed 20 mg PO QAM ##0 10/15/13 08/31/24 History release coenzyme Q10 100 mg capsule 100 mg PO QAM ##0 01/04/16 08/31/24 History atorvastatin 40 mg tablet 40 mg PO HS ##0 04/09/17 08/31/24 History dicyclomine 10 mg capsule 10 mg PO TID Abdominal Pain ##0 04/09/17 08/31/24 History peg 400-propylene glycol 0.4 %-0.3 1 drp ophthalmic (eye) QID PRN Dry 05/12/19 08/31/24 History % eye drops (Systane Ultra) Eye(S) vitamin B complex 1 tab PO QAM 09/21/20 08/31/24 History lorazepam 0.5 mg tablet 0.5 mg PO BID Anxiety 05/24/21 08/31/24 History metformin 750 mg tablet,extended 750 mg PO BIDM 05/24/21 08/31/24 History release 24 hr pregabalin 150 mg capsule 150 mg PO TID 05/24/21 08/31/24 History nrhboov-itaunmsutzsua-rmcoldch 250 2 tab PO Q6H PRN Pain 09/24/21 08/31/24 History mg-250 mg-65 mg tablet (Excedrin Extra Strength) hydrochlorothiazide 25 mg tablet 25 mg PO QAM 09/24/21 08/31/24 History magnesium 250 mg tablet 250 mg PO QAM 09/24/21 08/31/24 History cyanocobalamin (vitamin B-12) 500 500 mcg PO BID 06/05/22 08/31/24 History mcg tablet (Vitamin B-12) empagliflozin 10 mg tablet 10 mg PO QAM 06/05/22 08/31/24 History (Jardiance) famotidine 10 mg tablet (Acid 10 mg PO QAM 08/31/24 08/31/24 History Fast Food Crew Member (famotidine)) insulin glargine 100 unit/mL (3 36 unit subcut QAM 08/31/24 08/31/24 History mL) subcutaneous pen (Lantus Solostar U-100 Insulin) semaglutide 2 mg/dose (8 mg/3 mL) 2 mg subcut WK 08/31/24 08/31/24 History subcutaneous pen injector (Ozempic) ciprofloxacin HCl 500 mg tablet 500 mg PO BID 5 days #10 tabs 09/01/24 Rx (Cipro) Hospital Stay Data Consultations 08/31/24 16:40 ED Decision to Admit Stat 08/31/24 20:30 Consult Urology Routine Diagnostic Imagining Performed 08/31/24 14:09 CT abd pelvis IV con only Stat 08/31/24 14:23 CT head/brain wo con Stat 08/31/24 17:59 CT angio chest PE protocol Urgent Pending Results Patient Have Any Pending Studies at Discharge: No Discharge Instructions Given to Patient (Per Discharging Provider) 1. Please follow up with urology. 2. Please contact PCP, discuss with PCP if symptoms continue to reoccur for days. 3. Please finish course of abx. Total Time Total Time Spent Total Time Spent (In Minutes): I spent a total of 35 minutes in direct patient care, including [id number]-ty-mpyc time with the patient and/or family, reviewing medical records, ordering and reviewing diagnostic tests, and coordinating care with other healthcare providers. This time includes: history taking, physical examination, medical decision making, counseling, ECG interpretation, imaging interpretation, lab interpretation, orders, and education, excluding time spent in the performance of separately billed services.
== END 2024-09-01 16:54 | disposition home or self-care (01) | DRG 695 ==
LOC: ED 10:57 → SUATTDRO 17:49 → INTOOBSV 17:49 → EDINP 17:49 → 2N 20:31

== ENCOUNTER 2024-09-16 16:44 | Observation (INO) ==
--- NOTE | 2024-09-16 17:24 | Emergency Department Note ---
Impression & Plan COVID-19, Urinary tract infection, Pneumonia, Hypoxia ED Provider Note NAME: SHIRLEY TRVEIZO AGE: 83 SEX: F : 1940 ARRIVES VIA: Walk-In INFORMANT: Patient, ED PROVIDER(S): Ted Turner DO CHIEF COMPLAINT: Shortness of breath HPI: The patient is an 83-year-old female who presented to the emergency department after being seen by her primary care physician's office for an evaluation of difficulty breathing. The patient has had flulike symptoms over the course of the last week. Her had similar symptoms but he has since improved. The patient denies having any chest pain. She has a history of lower extremity swelling but not worse than usual. She denies having any hemoptysis. She was seen recently for possible hematuria but no diagnosis was made. She was seen in her family doctor's office and was noted to be hypoxic. She was sent immediately to the emergency department. ROS: See above HPI for pertinent positives & negatives. A total of 10 systems reviewed and were otherwise negative. PAST MEDICAL HISTORY: See Below PAST SURGICAL HISTORY: See Below FAMILY HISTORY: See Below SOCIAL HISTORY: See Below HOME MEDICATIONS: See Below ALLERGIES: See Below VITALS: See Below PHYSICAL EXAMINATION: GENERAL: Patient is awake alert in no acute distress patient is resting comfortably and showing no signs of anxiety EYES: The conjunctivae are clear. The pupils are round and reactive. EARS, NOSE, MOUTH AND THROAT: The nose is without any evidence of any deformity. NECK: The neck is nontender and supple. RESPIRATORY: Diminished breath sounds are noted throughout. There were rales at both bases. CARDIOVASCULAR: Regular rate and rhythm noted there no murmurs rubs or gallops normal S1 normal S2. GASTROINTESTINAL: The abdomen is soft. Abdomen is nontender. MUSCULOSKELETAL/EXTREMITIES: There is no evidence of gross deformity full range of motion is noted in the hips and shoulders. SKIN: Is warm and dry. Pedal edema was noted bilaterally. NEUROLOGIC: Patient is awake alert and oriented x3 MEDICAL DECISION MAKING: The patient is an 83-year-old female who presented to the emergency department for an evaluation of difficulty breathing. The patient was hypoxic. The patient was seen at the primary care physician's office and then sent to the emergency department for further evaluation. The patient was placed on supplemental oxygen. The patient was significantly proved. I discussed the patient's laboratory and radiographic studies with her. She was treated with IV antibiotics. She was found have signs of urinary tract infection. [facility] have agreed to evaluate the patient in the emergency department for further management and disposition. Triage Nursing notes reviewed. Prior medical records reviewed Vital Signs: reviewed and remarkable for hypoxia and elevated blood pressure. Differential diagnosis: Reactive airway disease, pneumonia, pneumothorax, COPD, CHF, infections, cardiac ischemia, pulmonary embolism, musculoskeletal, gastrointestinal, as well as other pathologies. ER treatment provided: See below Diagnostics interpreted by me: ECG: EKG was obtained in the emergency department. My interpretation is normal sinus rhythm at 95 bpm. PACs were noted. Poor R wave progression was noted. This was compared to a tracing from August 31, 2024. No changes were noted. Cardiac Monitoring: An order was placed for continuous cardiac monitoring. The monitor shows a rate of 101 bpm with sinus tachycardia. Laboratory studies: As stated above and show below. Imaging studies: See below. Radiographic imaging was reviewed by myself Consultation(s): I discussed this case with Dr. Hutchinson who is on-call for [facility]. ED COURSE: Procedures: none Critical Care: I have personally spent greater than 45 minutes of critical care time in the direct management of this patient. This includes bedside care, interpretation of diagnostic studies, and testing, discussion with consultants, patient, and family members, and other required patient management activities. This 45 minutes is in excess of all separately billable procedures. Past Med/Surg History Problem List (Updated 09/16/24 @ 22:22 by Suinl Ball) Respiratory acidosis COVID Hypoxia (Acute) Pneumonia (Acute) Urinary tract infection (Acute) COVID-19 (Acute) Symptomatic anemia (Acute) Urinary tract infection (Acute) Acute hypoxic respiratory failure Gross hematuria (Acute) LVH (left ventricular hypertrophy) CAD (coronary artery disease) (Chronic) Diastolic dysfunction (Chronic) Dementia Ambulatory dysfunction (Acute) Iron deficiency anemia (Acute) Diabetes mellitus, type II (Chronic) Dyslipidemia (Chronic) CKD (chronic kidney disease), stage III (Chronic) Hypertension (Chronic) GERD (gastroesophageal reflux disease) (Chronic) Medical History Non-ST elevation MS (NSTEMI) Fracture of distal end of fibula Kidney stones History of MS (myocardial infarction) Osteoarthritis Dry eye syndrome Anxiety Peripheral neuropathy Surgical History Hx of colonoscopy with polypectomy History of hysterectomy History of carpal tunnel release left History of discectomy LUMBAR (TOTAL 2 LUMBAR DISCECTOMY) History of appendectomy History of tooth extraction Hx of eye surgery LASER PROCEDURE History of cataract surgery RT/LEFT S/P cystoscopy with ureteral stent placement 05/13/19 [facility] Family History Brother Family history of diabetes mellitus Other Cancer Heart disease Kidney disease Social History Smoking Status: Former smoker Tobacco Type: Cigarettes Second Hand Exposure: No; Do You Dip or Chew Tobacco: No; Hx Alcohol Use: No Hx Substance Use: No Preferred Language: British Communication Ability: Effective Visual Impairment: No Limitations Hearing Ability: Normal 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 Beliefs That Will Affect Care: None marital status: Current Living Situation: Spouse current occupational status: retired Feels Safe at Home: Yes Diet: diabetic caffeine: Yes during the past year weight has: remained stable Physical Activity Frequency: Does not Exercise Seatbelt Use: always Do you think of yourself as: straight/heterosexual Gender Identity: Female Assistive Devices: Cane, Walker and Wheelchair Allergies Allergies Allergy/AdvReac Type Severity Reaction Status Date / Time COVID-19 vacc, bv (Orig, AdvReac Intermediate Verified 09/16/24 20:11 Omicron BA.4/5) (Pfizer) [From Pfizer COVID Bival(12y up)()] oxycodone AdvReac Intermediate OVER Verified 09/16/24 20:11 SEDATED Home Meds Home Medications Medication Instructions Recorded Confirmed omega-3 fatty acids 1,000 mg 2,000 mg PO QAM ##0 10/15/13 09/16/24 capsule omeprazole 20 mg tablet,delayed 20 mg PO QAM ##0 10/15/13 09/16/24 release coenzyme Q10 100 mg capsule 100 mg PO QAM ##0 01/04/16 09/16/24 atorvastatin 40 mg tablet 40 mg PO HS ##0 04/09/17 09/16/24 dicyclomine 10 mg capsule 10 mg PO TID Abdominal Pain ##0 04/09/17 09/16/24 peg 400-propylene glycol 0.4 %-0.3 1 drp ophthalmic (eye) QID PRN Dry 05/12/19 09/16/24 % eye drops (Systane Ultra) Eye(S) vitamin B complex 1 tab PO QAM 09/21/20 09/16/24 lorazepam 0.5 mg tablet 0.5 mg PO BID Anxiety 05/24/21 09/16/24 metformin 750 mg tablet,extended 750 mg PO BIDM 05/24/21 09/16/24 release 24 hr pregabalin 150 mg capsule 150 mg PO TID 05/24/21 09/16/24 oavzskd-nmpozynhbplqa-yaleymnc 250 2 tab PO Q6H PRN Pain 09/24/21 09/16/24 mg-250 mg-65 mg tablet (Excedrin Extra Strength) hydrochlorothiazide 25 mg tablet 25 mg PO QAM 09/24/21 09/16/24 magnesium 250 mg tablet 250 mg PO QAM 09/24/21 09/16/24 cyanocobalamin (vitamin B-12) 500 500 mcg PO DAILY 06/05/22 09/16/24 mcg tablet (Vitamin B-12) empagliflozin 10 mg tablet 10 mg PO QAM 06/05/22 09/16/24 (Jardiance) famotidine 10 mg tablet (Acid 10 mg PO QAM 08/31/24 09/16/24 Timekeeper (famotidine)) insulin glargine 100 unit/mL (3 36 unit subcut QAM 08/31/24 09/16/24 mL) subcutaneous pen (Lantus Solostar U-100 Insulin) semaglutide 2 mg/dose (8 mg/3 mL) 2 mg subcut WK 08/31/24 09/16/24 subcutaneous pen injector (Ozempic) Results & Data (ED) Vital Signs Vital Signs - 24 hr 09/16/24 16:48 09/16/24 16:57 09/16/24 17:14 Temperature 36.8 C Temperature Source Temporal Artery Scan Pulse Rate 99 H Pulse Rate [Right Finger] Pulse Rate from SpO2 Sensor Respiratory Rate 24 Blood Pressure 140/66 141/70 H Blood Pressure [Right Arm] Blood Pressure Mean 90 84 Blood Pressure Mean [Right Arm] Pulse Oximetry 85 L 98 Oxygen Delivery Method Room Air Nasal Cannula Oxygen Flow Rate 2 Sepsis Recent Fever Within 48 Hours No Sepsis New/Unexplained Change in Mental Status No Sepsis Action Taken by Nursing No Action Required 09/16/24 17:30 09/16/24 17:45 09/16/24 18:00 Temperature Temperature Source Pulse Rate 91 H 98 H Pulse Rate [Right Finger] Pulse Rate from SpO2 Sensor 85 93 H Respiratory Rate 15 20 Blood Pressure 116/65 142/78 H 134/92 Blood Pressure [Right Arm] Blood Pressure Mean 92 89 106 Blood Pressure Mean [Right Arm] Pulse Oximetry 98 100 Oxygen Delivery Method Oxygen Flow Rate Sepsis Recent Fever Within 48 Hours Sepsis New/Unexplained Change in Mental Status Sepsis Action Taken by Nursing 09/16/24 18:00 09/16/24 18:00 09/16/24 18:00 Temperature Temperature Source Pulse Rate Pulse Rate [Right Finger] Pulse Rate from SpO2 Sensor Respiratory Rate Blood Pressure 134/92 134/92 134/92 Blood Pressure [Right Arm] Blood Pressure Mean 106 106 106 Blood Pressure Mean [Right Arm] Pulse Oximetry Oxygen Delivery Method Oxygen Flow Rate Sepsis Recent Fever Within 48 Hours Sepsis New/Unexplained Change in Mental Status Sepsis Action Taken by Nursing 09/16/24 18:00 09/16/24 18:15 09/16/24 18:15 Temperature Temperature Source Pulse Rate 88 Pulse Rate [Right Finger] Pulse Rate from SpO2 Sensor 84 Respiratory Rate 23 Blood Pressure 134/92 111/73 111/73 Blood Pressure [Right Arm] Blood Pressure Mean 106 84 84 Blood Pressure Mean [Right Arm] Pulse Oximetry 100 Oxygen Delivery Method Oxygen Flow Rate Sepsis Recent Fever Within 48 Hours Sepsis New/Unexplained Change in Mental Status Sepsis Action Taken by Nursing 09/16/24 18:15 09/16/24 18:15 09/16/24 18:30 Temperature Temperature Source Pulse Rate 89 90 86 Pulse Rate [Right Finger] Pulse Rate from SpO2 Sensor 92 H 90 88 Respiratory Rate 15 20 18 Blood Pressure 111/73 136/81 Blood Pressure [Right Arm] Blood Pressure Mean 84 108 Blood Pressure Mean [Right Arm] Pulse Oximetry 99 100 100 Oxygen Delivery Method Oxygen Flow Rate Sepsis Recent Fever Within 48 Hours Sepsis New/Unexplained Change in Mental Status Sepsis Action Taken by Nursing 09/16/24 18:45 09/16/24 19:00 Temperature Temperature Source Pulse Rate 86 Pulse Rate [Right Finger] 86 Pulse Rate from SpO2 Sensor 87 Respiratory Rate 16 16 Blood Pressure 151/81 H Blood Pressure [Right Arm] 171/121 H Blood Pressure Mean 103 Blood Pressure Mean [Right Arm] 137 Pulse Oximetry 100 100 Oxygen Delivery Method Nasal Cannula Oxygen Flow Rate 2 Sepsis Recent Fever Within 48 Hours Sepsis New/Unexplained Change in Mental Status Sepsis Action Taken by Custodial Medications Current Medication List: was personally reviewed by me Laboratory Data Attestation: I reviewed the patient's lab results. 09/16/24 17:30 09/16/24 17:30 Lab Results 09/16/24 09/16/24 09/16/24 Range/Units 17:20 17:30 17:55 WBC 6.69 (4.8-10.8) K/ul RBC 4.24 (4.20-5.40) M/uL Hgb 9.4 L (12.0-16.0) g/dl Hct 32.2 L (37.0-47.0) % MCV 75.9 L (80.0-100.0) fL MCH 22.2 L (25.0-34.0) pg MCHC 29.2 L (32.0-36.0) g/dL RDW Std Deviation 55.4 H (36.4-46.3) fL RDW Coeff of Pia 20.4 H (11.5-14.5) % Plt Count 147 (130-400) K/uL MPV 10.1 (9.4-12.4) fL Immature Gran % (Auto) 0.4 % Neut % (Auto) 53.7 % Lymph % (Auto) 22.0 % Towns % (Auto) 18.1 % Eos % (Auto) 5.2 % Baso % (Auto) 0.6 % Neut # (Auto) 3.59 (1.40-6.50) K/uL Lymph # (Auto) 1.47 (1.20-3.40) K/uL Towns # (Auto) 1.21 H (0.11-0.59) K/uL Eos # (Auto) 0.35 (0.00-0.50) K/uL Baso # (Auto) 0.04 (0.00-0.20) K/uL Immature Gran # (Auto) 0.03 (0.01-0.20) K/uL Polychromasia 1+ Anisocytosis Present PT 10.5 (9.0-12.0) Seconds INR 1.0 (0.9-1.1) APTT 25 (21-31) Seconds PTT Ratio 0.9 VBG pH (7.36-7.41) VBG pCO2 (38-50) mmHg VBG pO2 mmHg VBG HCO3 mmol/L VBG O2 Saturation % VBG Base Excess mEq/L Sodium 142 (136-145) mmol/L Potassium 3.6 (3.5-5.1) mmol/L Chloride 102 (98-107) mmol/L Carbon Dioxide 31 (21-32) mmol/L Anion Gap 9 (3-11) BUN 22 (6-23) mg/dl Creatinine 1.14 (0.6-1.2) mg/dl Est Cr Clr Drug Dosing 39.2 ml/min eGFR 48.06 BUN/Creatinine Ratio 19.3 (10-20) Glucose 143 H (70-99(Fasting)) mg/dl Lactate 1.1 (0.4-2.0) mmol/L Calcium 9.2 (8.6-10.3) mg/dl Magnesium 2.5 H (1.7-2.4) mg/dl Total Bilirubin 0.5 (0.2-1.0) mg/dl Direct Bilirubin 0.1 (0-0.2) mg/dl AST 43 H (13-39) U/L ALT 33 (7-52) U/L Alkaline Phosphatase 79 (34-104) U/L Troponin I High Sens 13.1 (0-14) pg/ml B-Natriuretic Peptide 82 (0-100) pg/ml Total Protein 7.3 (6.0-8.3) gm/dl Albumin 3.9 (3.4-5.0) gm/dl Procalcitonin 0.30 (0-0.5) ng/ml Urine Color Dark Yellow Urine Appearance Clear (Clear) Urine pH 5.0 (4.5-7.5) Ur Specific Rogers 1.031 H (1.000-1.030) Urine Protein 1+ H (Negative) Urine Glucose (UA) 3+ H (Negative) Urine Ketones Negative (Negative) Urine Blood Negative (Negative) Urine Nitrite Negative (Negative) Urine Bilirubin Negative (Negative) Urine Urobilinogen Negative (Negative) Ur Leukocyte Esterase 1+ H (Negative) Urine WBC (Auto) >50 H (0-5) /hpf Urine RBC (Auto) 0-2 (0-2) /hpf U Hyaline Cast (Auto) 0-2 (0-2) /lpf U Epithel Cells (Auto) 3-5 H (0-2) /hpf Urine Bacteria (Auto) None Seen (None Seen) Urine Yeast Present A (None Prsent) Adenovirus (PCR) Not Detected (NotDetected) B. pertussis DNA (PCR) Not Detected (NotDetected) B.parapertussis DNA PCR Not Detected (NotDetected) C. pneumoniae DNA (PCR) Not Detected (NotDetected) Coronavirus OC43 (PCR) Not Detected (NotDetected) Coronavirus HKU1 (PCR) Not Detected (NotDetected) Coronavirus 229E (PCR) Not Detected (NotDetected) SARS-CoV-2 (PCR) DETECTED A (NotDetected) Coronavirus NL63 (PCR) Not Detected (NotDetected) Human Metapneumovir PCR Not Detected (NotDetected) Influenza Type A (PCR) Not Detected (NotDetected) Influenza Type B (PCR) Not Detected (NotDetected) M. pneumoniae (PCR) Not Detected (NotDetected) Parainfluenza 1 (PCR) Not Detected (NotDetected) Parainfluenza 2 (PCR) Not Detected (NotDetected) Parainfluenza 3 (PCR) Not Detected (NotDetected) Parainfluenza 4 (PCR) Not Detected (NotDetected) RSV (PCR) Not Detected (NotDetected) Entero/Rhino (PCR) Not Detected (NotDetected) 09/16/24 Range/Units 18:28 WBC (4.8-10.8) K/ul RBC (4.20-5.40) M/uL Hgb (12.0-16.0) g/dl Hct (37.0-47.0) % MCV (80.0-100.0) fL MCH (25.0-34.0) pg MCHC (32.0-36.0) g/dL RDW Std Deviation (36.4-46.3) fL RDW Coeff of Pia (11.5-14.5) % Plt Count (130-400) K/uL MPV (9.4-12.4) fL Immature Gran % (Auto) % Neut % (Auto) % Lymph % (Auto) % Towns % (Auto) % Eos % (Auto) % Baso % (Auto) % Neut # (Auto) (1.40-6.50) K/uL Lymph # (Auto) (1.20-3.40) K/uL Towns # (Auto) (0.11-0.59) K/uL Eos # (Auto) (0.00-0.50) K/uL Baso # (Auto) (0.00-0.20) K/uL Immature Gran # (Auto) (0.01-0.20) K/uL Polychromasia Anisocytosis PT (9.0-12.0) Seconds INR (0.9-1.1) APTT (21-31) Seconds PTT Ratio VBG pH 7.32 L (7.36-7.41) VBG pCO2 61 H (38-50) mmHg VBG pO2 46 mmHg VBG HCO3 31 mmol/L VBG O2 Saturation 72.1 % VBG Base Excess 3.6 mEq/L Sodium (136-145) mmol/L Potassium (3.5-5.1) mmol/L Chloride (98-107) mmol/L Carbon Dioxide (21-32) mmol/L Anion Gap (3-11) BUN (6-23) mg/dl Creatinine (0.6-1.2) mg/dl Est Cr Clr Drug Dosing ml/min eGFR BUN/Creatinine Ratio (10-20) Glucose (70-99(Fasting)) mg/dl Lactate (0.4-2.0) mmol/L Calcium (8.6-10.3) mg/dl Magnesium (1.7-2.4) mg/dl Total Bilirubin (0.2-1.0) mg/dl Direct Bilirubin (0-0.2) mg/dl AST (13-39) U/L ALT (7-52) U/L Alkaline Phosphatase (34-104) U/L Troponin I High Sens (0-14) pg/ml B-Natriuretic Peptide (0-100) pg/ml Total Protein (6.0-8.3) gm/dl Albumin (3.4-5.0) gm/dl Procalcitonin (0-0.5) ng/ml Urine Color Urine Appearance (Clear) Urine pH (4.5-7.5) Ur Specific Rogers (1.000-1.030) Urine Protein (Negative) Urine Glucose (UA) (Negative) Urine Ketones (Negative) Urine Blood (Negative) Urine Nitrite (Negative) Urine Bilirubin (Negative) Urine Urobilinogen (Negative) Ur Leukocyte Esterase (Negative) Urine WBC (Auto) (0-5) /hpf Urine RBC (Auto) (0-2) /hpf U Hyaline Cast (Auto) (0-2) /lpf U Epithel Cells (Auto) (0-2) /hpf Urine Bacteria (Auto) (None Seen) Urine Yeast (None Prsent) Adenovirus (PCR) (NotDetected) B. pertussis DNA (PCR) (NotDetected) B.parapertussis DNA PCR (NotDetected) C. pneumoniae DNA (PCR) (NotDetected) Coronavirus OC43 (PCR) (NotDetected) Coronavirus HKU1 (PCR) (NotDetected) Coronavirus 229E (PCR) (NotDetected) SARS-CoV-2 (PCR) (NotDetected) Coronavirus NL63 (PCR) (NotDetected) Human Metapneumovir PCR (NotDetected) Influenza Type A (PCR) (NotDetected) Influenza Type B (PCR) (NotDetected) M. pneumoniae (PCR) (NotDetected) Parainfluenza 1 (PCR) (NotDetected) Parainfluenza 2 (PCR) (NotDetected) Parainfluenza 3 (PCR) (NotDetected) Parainfluenza 4 (PCR) (NotDetected) RSV (PCR) (NotDetected) Entero/Rhino (PCR) (NotDetected) Administered Medications Remdesivir 200 mg/ Sodium (Chloride) 250 mls @ 125 mls/hr IV ONE ONE Stop: 09/17/24 00:29 Last Admin: 09/16/24 23:03 Dose: 125 mls/hr Documented By: CTK Discontinued Medications Ceftriaxone Sodium (Rocephin) 2,000 mg in 50 mls @ 100 mls/hr IV NOW STA Stop: 09/16/24 18:17 Last Infusion: 09/16/24 22:49 Dose: Infused Documented By: Admin: 09/16/24 19:23 Dose: 100 mls/hr Documented By: KATHERINE Vancomycin HCl 2,500 mg/ (Sodium Chloride) 550 mls @ 200 mls/hr IV NOW ONE Stop: 09/16/24 20:32 Last Infusion: 09/16/24 23:06 Dose: Infused Documented By: Admin: 09/16/24 19:39 Dose: 200 mls/hr Documented By: KATHERINE Ioversol (Optiray 320 125ml) 115 ml IV ONCE ONE Stop: 09/16/24 22:02 Last Admin: 09/16/24 22:01 Dose: 115 ml Documented By: EDUARDO Imaging Data Attestation: I personally reviewed and interpreted this imaging study as follows: My Impression: 1 view chest x-ray was obtained in the emergency department. My interpretation is left-sided infiltrate, final report below. Radiologist's Impression: Chest X-Ray 09/16/24 16:57 Clinical History: Sepsis Technique: A frontal view of the chest was obtained Comparison is made to the prior examination dated 08/31/2024 Findings: There are no confluent pulmonary infiltrates. The heart size is at the upper limit of normal. No definite pleural effusion or pneumothorax is seen. There is suspected mild pulmonary edema No fracture is noted. No foreign body is seen Impression: Borderline cardiomegaly and mild pulmonary edema Electronically signed by Pranav Nieto 09-16-2024 5:56 PM Discharge Plan Visit Data Chief Complaint: Respiratory Problems Stated Complaint: LOW OXYGEN ED Provider: Ted Turner Discharge Problem: COVID-19, Urinary tract infection, Pneumonia, Hypoxia Patient Disposition: Being Evaluated by Hospitalist Discharge Instructions Interventions: ED Discharge Assessment Last Done: 09/16/24 22:25
[2024-09-16] MEDS ORDERED: VANCOMYCIN CONSULT ACTIVE PRN (17:48)
[2024-09-16 17:54] LABS: Appearance Urine Clear (Clear); Bacteria Urine Automated None Seen (None Seen); Bilirubin Urine Negative (Negative); Blood Urine Negative (Negative); Cast Urine Automated 0-2 /lpf (0-2); Color Urine Dark Yellow; Glucose Urine UA 3+ (Negative); Ketones Urine Negative (Negative); Leukocyte Esterase Urine 1+ (Negative); Nitrite Urine Negative (Negative); Protein Urine 1+ (Negative); RBC Urine Automated 0-2 /hpf (0-2); Specific Gravity Urine 1.031 (1.000-1.030); Urobilinogen Urine Negative (Negative); WBC Urine Automated >50 /hpf (0-5)
[2024-09-16 17:54] LABS: Basophils # (auto) 0.04 K/uL (0.00-0.20); Basophils % (auto) 0.6 %; Eosinophils # (auto) 0.35 K/uL (0.00-0.50); Eosinophils % (auto) 5.2 %; Hematocrit (blood only) 32.2 % (37.0-47.0); Hemoglobin 9.4 g/dl (12.0-16.0); Immature Granulocytes # (auto) 0.03 K/uL (0.01-0.20); Immature Granulocytes % (auto) 0.4 %; Lymphocytes # (auto) 1.47 K/uL (1.20-3.40); Mean Corpuscular Hemoglobin 22.2 pg (25.0-34.0); Mean Corpuscular Hgb Conc 29.2 g/dL (32.0-36.0); Mean Corpuscular Volume 75.9 fL (80.0-100.0); Mean Platelet Volume 10.1 fL (9.4-12.4); Monocytes # (auto) 1.21 K/uL (0.11-0.59); Monocytes % (auto) 18.1 %; Neutrophils # (auto) 3.59 K/uL (1.40-6.50); Neutrophils % (auto) 53.7 %; Platelet Count 147 K/uL (130-400); RDW Coefficient of Variation 20.4 % (11.5-14.5); RDW Standard Deviation 55.4 fL (36.4-46.3); Red Blood Count 4.24 M/uL (4.20-5.40); White Blood Count 6.69 K/ul (4.8-10.8)
--- NOTE | 2024-09-16 17:57 | XRay Report ---
Clinical History: Sepsis Technique: A frontal view of the chest was obtained Comparison is made to the prior examination dated 08/31/2024 Findings: There are no confluent pulmonary infiltrates. The heart size is at the upper limit of normal. No definite pleural effusion or pneumothorax is seen. There is suspected mild pulmonary edema No fracture is noted. No foreign body is seen Impression: Borderline cardiomegaly and mild pulmonary edema Electronically signed by Pranav Nieto 09-16-2024 5:56 PM
[2024-09-16 18:08] LABS: Albumin Level 3.9 gm/dl (3.4-5.0); BUN Creatinine Ratio 19.3 (10-20); Bilirubin Direct 0.1 mg/dl (0-0.2); Bilirubin,Total 0.5 mg/dl (0.2-1.0); Calcium 9.2 mg/dl (8.6-10.3); Creatinine Clr Calc Pharmacy 39.2 ml/min; Magnesium 2.5 mg/dl (1.7-2.4); Potassium 3.6 mmol/L (3.5-5.1); Total Protein 7.3 gm/dl (6.0-8.3)
[2024-09-16 18:14] LABS: Troponin I High Sensitivity 13.1 pg/ml (0-14)
[2024-09-16 18:15] LABS: Partial Thromboplastin Ratio 0.9; Partial Thromboplastin Time 25 Seconds (21-31); Prothrombin Time 10.5 Seconds (9.0-12.0)
[2024-09-16 18:21] LABS: Anisocytosis Present; Polychromasia 1+
[2024-09-16 18:36] LABS: Base Excess VBG 3.6 mEq/L; HCO3 VBG 31 mmol/L; Oxygen Saturation VBG 72.1 %; PCO2 VBG 61 mmHg (38-50); PO2 VBG 46 mmHg; pH VBG 7.32 (7.36-7.41)
[2024-09-16 18:50] LABS: Adenovirus PCR Not Detected (NotDetected); Bordetella parapertussis PCR Not Detected (NotDetected); Bordetella pertussis PCR Not Detected (NotDetected); Chlamydia pneumoniae PCR Not Detected (NotDetected); Coronavirus 229E PCR Not Detected (NotDetected); Coronavirus CoV-2 (COVID19)PCR DETECTED (NotDetected); Coronavirus HKU1 PCR Not Detected (NotDetected); Coronavirus NL63 PCR Not Detected (NotDetected); Coronavirus OC43PCR Not Detected (NotDetected); Human Metapneumovirus PCR Not Detected (NotDetected); Influenza A PCR Not Detected (NotDetected); Influenza B PCR Not Detected (NotDetected); Mycoplasma pneumoniae PCR Not Detected (NotDetected); Parainfluenza Virus 1 PCR Not Detected (NotDetected); Parainfluenza Virus 2 PCR Not Detected (NotDetected); Parainfluenza Virus 3 PCR Not Detected (NotDetected); Parainfluenza Virus 4 PCR Not Detected (NotDetected); Respiratory Syncytial VirusPCR Not Detected (NotDetected); Rhinovirus/Enterovirus PCR Not Detected (NotDetected)
[2024-09-16] MEDS: cefTRIAXone SODIUM 2,000 MG/50 ML BAG IV STA (19:23)
[2024-09-16] MEDS: VANCOMYCIN HCL 2,500 MG in SODIUM CHLORIDE 0.9% 500 ML IV ONE (19:39)
--- NOTE | 2024-09-16 21:38 | History & Physical Report ---
Date of Service September 16, 2024 Assessment & Plan (1) Acute hypoxic respiratory failure: Plan: -2/2 COVID and perhaps underlying lung disease -patient familiar to this provider, saturates around 90% at baseline, does not ambulate at baseline (very minimally) Plan: -start remdesevir -incentive spirometry, duoneb prn ordered -CTA chest given low oxygen sats at baseline, moderate risk for PE -given no leukocytosis, low procal will hold abx for now (2) Respiratory acidosis: Plan: -slight elevation of CO2 on exam with pH of 7.32 Plan: -if oxygen needs go up or mentation changes, check ABG (3) Diastolic dysfunction: Plan: -patient appears dry on exam -hold diuresis for now despite concern for pulmonary edema (4) Ambulatory dysfunction: Plan: -only pivots at baseline -patient would be interested in home PT/OT but not SNF Plan: -PT/OT ordered (5) COVID: Plan: -see above (6) Diabetes mellitus, type II: Plan: -continue home lantus -protocol SSI ordere -pharmacy consult, appreciate recs Plan Feeding/fluids: regular Analgesia: tylenol Sedation: na Thromboprophylaxis: lovenox Head up position: na Ulcer prophylaxis: omeprazole Glycemic control: insulin protocol Spontaneous breathing trial: na Bowel care: miralax prn Indwelling catheter removal: na Deescalation of antibiotics: na I spent a total of 80 minutes in direct patient care, including [id number] time with the patient and/or family, reviewing medical records, ordering and reviewing diagnostic tests, and coordinating care with other healthcare providers. This time includes: history taking, physical examination, medical decision making, counseling, ECG interpretation, imaging interpretation, lab interpretation, orders, and education, excluding time spent in the performance of separately billed services. History of Present Illness Chief Complaint: -low oxygen saturation Primary Care Provider: Case House MD 83 y/o female with DM2, hx NSTEMI, chronic HFpEF, HTN, hyperlipidemia, CKD3, prior left jugular vein thrombosis, dementia, GERD who presents from outpatient clinic for noted hypoxia into 80s. Patient states she has been feeling a little lower energy than normal with some weakness but otherwise fine. She has not felt SOB whatsoever over the past few days or weeks. Per , patient usually sits in low 90s at baseline, and perhaps lower than this. Denies chest pain or other symptoms. No tobacco use, no alcohol use, no drug use, discussed resuscitation with patient, risks and benefits explained, patient states that she would not want aggressive measures taken at end of life, does not want chest compressions or intubation. Patient DNRDNI. Allergies Allergy/AdvReac Type Severity Reaction Status Date / Time COVID-19 vacc, bv (Orig, AdvReac Intermediate Verified 09/16/24 20:11 Omicron BA.4/5) (Pfizer) [From Pfizer COVID Bival(12y up)(PF)] oxycodone AdvReac Intermediate OVER Verified 09/16/24 20:11 SEDATED Home Medications Medication Instructions Recorded Confirmed Type omega-3 fatty acids 1,000 mg 2,000 mg PO QAM ##0 10/15/13 09/16/24 History capsule omeprazole 20 mg tablet,delayed 20 mg PO QAM ##0 10/15/13 09/16/24 History release coenzyme Q10 100 mg capsule 100 mg PO QAM ##0 01/04/16 09/16/24 History atorvastatin 40 mg tablet 40 mg PO HS ##0 04/09/17 09/16/24 History dicyclomine 10 mg capsule 10 mg PO TID Abdominal Pain ##0 04/09/17 09/16/24 History peg 400-propylene glycol 0.4 %-0.3 1 drp ophthalmic (eye) QID PRN Dry 05/12/19 09/16/24 History % eye drops (Systane Ultra) Eye(S) vitamin B complex 1 tab PO QAM 09/21/20 09/16/24 History lorazepam 0.5 mg tablet 0.5 mg PO BID Anxiety 05/24/21 09/16/24 History metformin 750 mg tablet,extended 750 mg PO BIDM 05/24/21 09/16/24 History release 24 hr pregabalin 150 mg capsule 150 mg PO TID 05/24/21 09/16/24 History iatcras-fvvtobbevahbz-velfuyav 250 2 tab PO Q6H PRN Pain 09/24/21 09/16/24 History mg-250 mg-65 mg tablet (Excedrin Extra Strength) hydrochlorothiazide 25 mg tablet 25 mg PO QAM 09/24/21 09/16/24 History magnesium 250 mg tablet 250 mg PO QAM 09/24/21 09/16/24 History cyanocobalamin (vitamin B-12) 500 500 mcg PO DAILY 06/05/22 09/16/24 History mcg tablet (Vitamin B-12) empagliflozin 10 mg tablet 10 mg PO QAM 06/05/22 09/16/24 History (Jardiance) famotidine 10 mg tablet (Acid 10 mg PO QAM 08/31/24 09/16/24 History Clay Maker (famotidine)) insulin glargine 100 unit/mL (3 36 unit subcut QAM 08/31/24 09/16/24 History mL) subcutaneous pen (Lantus Solostar U-100 Insulin) semaglutide 2 mg/dose (8 mg/3 mL) 2 mg subcut WK 08/31/24 09/16/24 History subcutaneous pen injector (Ozempic) Past Med/Surg History Problem List (Updated 09/16/24 @ 21:50 by [place] MD) Respiratory acidosis COVID Hypoxia (Acute) Pneumonia (Acute) Urinary tract infection (Acute) COVID-19 (Acute) Symptomatic anemia (Acute) Urinary tract infection (Acute) Acute hypoxic respiratory failure Gross hematuria (Acute) LVH (left ventricular hypertrophy) CAD (coronary artery disease) (Chronic) Diastolic dysfunction (Chronic) Dementia Ambulatory dysfunction (Acute) Iron deficiency anemia (Acute) Diabetes mellitus, type II (Chronic) Dyslipidemia (Chronic) CKD (chronic kidney disease), stage III (Chronic) Hypertension (Chronic) GERD (gastroesophageal reflux disease) (Chronic) Medical History Non-ST elevation CT (NSTEMI) Fracture of distal end of fibula Kidney stones History of CT (myocardial infarction) Osteoarthritis Dry eye syndrome Anxiety Peripheral neuropathy Surgical History Hx of colonoscopy with polypectomy History of hysterectomy History of carpal tunnel release left History of discectomy LUMBAR (TOTAL 2 LUMBAR DISCECTOMY) History of appendectomy History of tooth extraction Hx of eye surgery LASER PROCEDURE History of cataract surgery RT/LEFT S/P cystoscopy with ureteral stent placement 05/13/19 MAC Family History Brother Family history of diabetes mellitus Other Cancer Heart disease Kidney disease Social History Smoking Status: Former smoker Tobacco Type: Cigarettes Second Hand Exposure: No; Do You Dip or Chew Tobacco: No; Hx Alcohol Use: No Hx Substance Use: No Preferred Language: Belarusian Communication Ability: Effective Visual Impairment: No Limitations Hearing Ability: Normal 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 EYES: Patient denies any visual symptoms. EARS, NOSE, AND THROAT: No difficulties with hearing. No symptoms of rhinitis or sore throat. CARDIOVASCULAR: Patient denies chest pains, palpitations, orthopnea and paroxysmal nocturnal dyspnea. RESPIRATORY: No dyspnea on exertion, no wheezing or cough. GI: No nausea, vomiting, diarrhea, constipation, abdominal pain, hematochezia or melena. : No urinary hesitancy or dribbling. No nocturia or urinary frequency. No abnormal urethral discharge. MUSCULOSKELETAL: No myalgias or arthralgias. NEUROLOGIC: No chronic headaches, no seizures. Patient denies numbness, tingling or weakness. PSYCHIATRIC: Patient denies problems with mood disturbance. No problems with anxiety. ENDOCRINE: No excessive urination or excessive thirst. DERMATOLOGIC: Patient denies any rashes or skin changes. Physical Exam Physical Exam: Gen: A&O 3 NAD HEENT: NCAT, EOMI, not icteric. External ears normal. No rhinorrhea. Moist mucou s membranes. Neck: Supple, full range of motion, no observable masses, No meningeal sign. Lungs: No Respiratory distress. CV: RRR, no edema. Abdomen: Soft, nondistended, No rebound tenderness. MSK: No joint swelling, no redness. Skin: No rashes, petechiae, lesions. Normal color per patient. Neuro: Normal Gait, Grossly intact. Psych: Appropriate for situation. Results & Data Results & Data Vital Signs (Past 12 Hours) Vital Signs Temp Pulse Pulse Resp BP BP Pulse Ox 09/16/24 21:03 93 H 24 185/85 H 98 09/16/24 19:00 86 16 171/121 H 100 09/16/24 18:45 86 16 151/81 H 100 09/16/24 18:30 86 18 136/81 100 09/16/24 18:15 90 20 111/73 100 09/16/24 18:15 89 15 99 09/16/24 18:15 111/73 09/16/24 18:15 111/73 09/16/24 18:00 88 23 134/92 100 09/16/24 18:00 134/92 09/16/24 18:00 134/92 09/16/24 18:00 134/92 09/16/24 18:00 134/92 09/16/24 17:45 98 H 20 142/78 H 100 09/16/24 17:30 91 H 15 116/65 98 09/16/24 17:14 141/70 H 09/16/24 16:57 98 09/16/24 16:48 36.8 C 99 H 24 140/66 85 L O2 Del Method O2 Flow Rate 09/16/24 21:03 Nasal Cannula 2 09/16/24 19:00 Nasal Cannula 2 09/16/24 18:45 09/16/24 18:30 09/16/24 18:15 09/16/24 18:15 09/16/24 18:15 09/16/24 18:15 09/16/24 18:00 09/16/24 18:00 09/16/24 18:00 09/16/24 18:00 09/16/24 18:00 09/16/24 17:45 09/16/24 17:30 09/16/24 17:14 09/16/24 16:57 Nasal Cannula 2 09/16/24 16:48 Room Air Laboratory Results -personally reviewed, patient positive for COVID and likely source of symptoms, VBG with mild respiratory acidosis, UA consistent with UTI Diagnostic Findings Chest X-Ray 09/16/24 16:57 Clinical History: Sepsis Technique: A frontal view of the chest was obtained Comparison is made to the prior examination dated 08/31/2024 Findings: There are no confluent pulmonary infiltrates. The heart size is at the upper limit of normal. No definite pleural effusion or pneumothorax is seen. There is suspected mild pulmonary edema No fracture is noted. No foreign body is seen Impression: Borderline cardiomegaly and mild pulmonary edema Electronically signed by Pranav Nieto 09-16-2024 5:56 PM -personally reviewed, concern for pulmonary edema Code Status & VTE Plan VTE Prophylaxis Plan VTE Prophylaxis will be ordered: Yes (6) Diabetes mellitus, type II Diabetes mellitus fdc insulin use: with fdc use Diabetes mellitus complication status: with neurologic complications Diabetes mellitus complication detail: with unspecified neuropathy Qualified Code(s): E11.40 - Type 2 diabetes mellitus with diabetic neuropathy, unspecified; Z79.4 - penitentiary (current) use of insulin
[2024-09-16] MEDS: OPTIRAY 320 125ml IV ONE (22:01)
[2024-09-16] MEDS ORDERED: MELATONIN 3 MG TAB PO PRN (22:24)
[2024-09-16] MEDS ORDERED: PHARMACY GLYCEMIC MGMT CONSULT PRN (22:24)
[2024-09-16] MEDS ORDERED: POLYETHYLENE (MIRALAX) 17 GM PACK PO PRN (22:24)
[2024-09-16] MEDS ORDERED: GLUCAGON FOR INJ 1 MG VIAL SQ PRN (22:24)
[2024-09-16] MEDS ORDERED: ALBUT/IPRATROP 3MG/0.5MG NEB 3 ML VIAL NEB PRN (22:24)
[2024-09-16] MEDS ORDERED: GLUCOSE 40% GEL 15 GM TUBE PO PRN (22:24)
[2024-09-16] MEDS ORDERED: CARBOHYDRATES FOR HYPOGLYCEMIA PO PRN (22:24)
[2024-09-16] MEDS ORDERED: GLUCOSE 10 TAB/TUBE PO PRN (22:24)
[2024-09-16] MEDS ORDERED: DEXTROSE 50% 50 ML SYRINGE IV PRN (22:24)
[2024-09-16] MEDS: REMDESIVIR 200 MG in SODIUM CHLORIDE 0.9% 210 ML IV ONE (23:03)
--- NOTE | 2024-09-16 23:03 | CT Scan Report ---
Exam(s): CTA CHEST IV Amt: 115 ml opti 320 EXAM: CT Angiography Chest With Intravenous Contrast CLINICAL HISTORY: Reason for exam: PE. TECHNIQUE: Axial computed tomographic angiography images of the chest with intravenous contrast. CTDI is 26.43 mGy and DLP is 741.28 mGy-cm. Automated exposure control was utilized for the study. A dose lowering technique was utilized adhering to the principles of ALARA. MIP reconstructed images were created and reviewed. COMPARISON: 08/31/24 FINDINGS: Pulmonary arteries: Adequate pulmonary artery opacification. Assessment for pulmonary emboli limited by motion artifact. No evidence of acute pulmonary embolism as visualized. Aorta: Thoracic aortic atherosclerosis without aneurysm or dissection. Lungs: Peripheral fibrotic changes, greatest at the lung bases with stacked cystic changes at the left lung base, stable from prior. No consolidation or mass. Calcified granuloma left lung base. Pleural space: Unremarkable. No significant effusion. No pneumothorax. Heart: Cardiomegaly and coronary artery atherosclerosis. No pericardial effusion. Stable RV/LV ratio when compared to prior. Thyroid: Enlarged, multinodular left thyroid goiter with retrosternal extension, stable from prior. Bones/joints: No acute fracture. No dislocation. Soft tissues: Unremarkable. Lymph nodes: Unremarkable. No enlarged lymph nodes. IMPRESSION: 1. Assessment for pulmonary emboli limited by motion artifact. No evidence of acute pulmonary embolism as visualized. 2. Enlarged, multinodular left thyroid goiter with retrosternal extension, stable from prior. Consider follow-up evaluation with thyroid ultrasound if not previously performed. Electronically signed by: Kylee Desir M.D. 09/16/24 23:02 PM
[2024-09-17] MEDS: PREGABALIN 150 MG CAP PO SCH (00:09)
[2024-09-17] MEDS: LORazepam 0.5 MG TAB PO SCH (00:10)
[2024-09-17] MEDS: ATORVASTATIN 40 MG TAB PO SCH (00:10)
[2024-09-17] MEDS: INSULIN ASPART PER UNIT CHARGE SC SCH (00:24)
--- OUTSIDE RECORDS SUMMARY | 2024-09-17 06:29 | External Medical Summary | Summary of Care ---
Author Name Unknown Organization [facility] Address [address] [place] [address] Phone [phone] Care Team Providers Care Almond Blancher Name Role Phone Lloyd Villa MD Primary Care Provider [phone]- [phone] Reason for Visit * Reason Comments eRx-Medication Refill Encounter Details Date Type Department Care Team (Late st Contact Info) Description 09/13/2024 Refill [facility] [address] [facility] [place] [phone] Lloyd Villa MD [address] [place] [address] Anxiety state Allergies Active Allergy Reactions Criticality Noted Date Comments Ciprofloxacin 05/27/2022 tendonitis Oxycodone Other (Please comment) 01/29/2016 Mental problems, confusion Other reaction(s): SEDATION Tramadol 10/28/2023 Difficult to arouse after taking medication documented as of this encounter (statuses as of 09/15/2024) Medications COENZYME Q-10 100 MG PO CAPS [...] as directed. Freestyle Zabrina 2 supplied by [employer] Active Lidocaine 4 % External Patch (Aspercreme) [...] 9 mL 4 12/30/19 24 Active Nystatin 454753 UNIT/GM External Powder (Nystop) Apply topically to [...] TIMES DAILY 90 Capsule 08/17/19 25 Active LORazepam 0.5 MG Oral Tablet (Ativan)Indicati ons:Anxiety state TAKE 1 TABLET BY MOUTH THREE TIMES DAILY NEEDED FOR ANXIETY 90 Tablet 09/15/19 25 Active LORazepam 0.5 MG Oral Tablet (Ativan)Indicati ons:Anxiety state TAKE 1 TABLET BY MOUTH THREE TIMES DAILY NEEDED FOR ANXIETY 90 Tablet 07/26/19 25 2024 Discontinued documented as of this encounter (statuses as of 09/15/2024) Active Problems Problem Noted Date Diagnosed Date [...] reflux disease without esophagi tis 07/12/2019 Old [place] (myocardial infarction) 07/12/2019 Type 2 diabetes mellitus [...] as of this encounter (statuses as of 09/15/2024) Resolved Problems Problem Noted Date Diagnosed Date [...] as of this encounter (statuses as of 09/15/2024) Immunizations Name Administration Dates Next Due COVID-19 mRNA, LNP-s, No Pre serve, 2-Dose Series ([employer]) 10/17/2020,09/19/2020 Covid-19, Mrna, Lnp-s, Pf, B ivalent, [...] Telephone Encounter - Lloyd Villa MD - 09/14/2024 9:27 PM EDTSigned Prescriptions: Disp Refills LORazepam 0.5 MG Oral Tablet (Ativan) 90 Tab*0 Sig: TAKE 1 TABLET BY MOUTH THREE TIMES DAILY NEEDED FOR ANXIETYAuthorizing Provider: LLOYD VILLA * Telephone Encounter - Indira Hu [facility] - 09/14/2024 2:45 PM EDT Pending Prescriptions: Disp Refills LORazepam 0.5 MG Oral Tablet 90 Tab*0 Sig: TAKE 1 TABLET BY MOUTH THREE TIMES DAILY NEEDED FOR ANXIETY * Telephone Encounter - Indira Hu [facility] - 09/14/2024 2:44 PM EDT I have reviewed the patients controlled substance dispensing history in the Prescription Drug Monitoring Program in compliance with the [facility] regulations before prescribing a controlled substance. PDMP checked on 09/14/2024. Pending Prescriptions: Disp Refills LORazepam 0.5 MG Oral Tablet (Ativan) [Ph*90 Tab*0 Sig: TAKE 1 TABLET BY MOUTH THREE TIMES DAILY NEEDED FOR ANXIETY Last Visit: Visit date not found (in office), Visit date not found (telemedicine) Next Visit: 11/25/2024 Date medication was last filled: 07/26/24 Date medication is due for refill: 08/24/24 Pharmacy: [facility] [address] [address] Is this request for a controlled substance? Yes and Urine Drug Screen Not completed Toxicology results: No results found. However, due to the size of the patient record, not all encounters were searched.Please check Results Review for a complete set of results. Please approve if appropriate. Thank You Indira Hu, PharmD Clinical Pharmacist [facility] ([facility]) [phone] / [phone] 09/14/2024, 2:44 PM documented in this encounter Plan of Treatment Upcoming Encounters Date Type Department Care Team (Latest Contact Info) Description 09/30/2024 1:00 PM EDT Office Visit Pharmacy, Glenna Crisostomo [address] [phone] Terri [address] [place] [address] 10/12/2024 1:40 PM EDT Office Visit Podiatry [facility] [address] [place] [phone] Danielle Burns DPM [address] [place] [address] 10/13/2024 10:23 AM EDT Hospital Encounter OR [facility], Operating Room [facility] [address] [place] [phone] Phi Beckwith, DO [address] [place] [phone] 10/13/2024 10:23 AM EDT - 10/13/2024 10:42 AM EDT Surgery OR [facility], Operating Room [facility] [address] [place] [phone] Phi Beckwith, DO [address] [place] [phone] INJECTION SPINE LUMBAR OR SACRAL 11/25/2024 2:20 PM EDT Office Visit Family Practice, Glenna Mckeon [address] [place] [phone] Lloyd Villa MD [address] [address] 12/02/2024 9:30 AM EDT Office Visit Urology Donald Sahu [address] [place] [address] Minerva Underwood PA-C [address] [place] [address] 09/13/2025 1:20 PM EDT Office Visit Dermatology [facility] [address] [facility] [place] [phone] Ran Millan PA-C [address] [facility] [place] [address] Scheduled Procedures Name Priority Associated Diagnoses Date/Ti me INJECTION SPINE LUMBAR OR SACRAL Lumbar radiculopathy 10/13/2024 10:23 AM EDT Health Maintenance Due Date Last Done Comments Adult Wellness Visit 02/27/2020 02/26/2019 Depression Screening 04/25/2023 04/25/2022, 09/30/2017, 09/13/2014 (Discussed) CKD PHOS USE SMARTSET 22470 11/19/202311/04, 03/13/2021, 01/30/2021, Additional history exists Diabetic Eye Exam 01/10/2024 01/09/2023, , 12/31/2019, Additional history exists COVID-19 Vaccine ( season) 2024 06/04/2022, 05/22/2021, 10/17/2020, Additional history exists CKD HGB USE SMARTSET 89123 04/25/202404/25, 06/18/2022, 06/11/2022, Additional history exists Diabetic Foot Exam 08/08/2024 08/08/2023, 1 07/16/2019, 04/08/2018, Additional history exists Albumin/Creatinine Ratio 09/04/202409/04/2 024, 08/12/2022, 04/25/2022, Additional history exists GFR 01/05/2025 07/08/2024, 05/07, 09/05/2023, Additional history exists HbA1c 01/05/2025 07/08/2024, 05/07, 09/05/2023, Additional history exists Mammogram 05/19/2025 05/19/2024, 05/07, 03/25/2023, Additional history exists B-12 05/25/2025 05/25/2024, 02/12/2022, [...] on patient's age to complete this topic Meningitis B Vaccine (Bexsero/Trumemba) Aged Out No longer eligible based on [...] and were consensually agreed upon. Care Teams Almond Blancher Relationship Specialty Start Date End Date Lloyd Villa MD [address] [address] PCP - General Family Medicine 07/08/24 documented as of this encounter
--- OUTSIDE RECORDS SUMMARY | 2024-09-17 06:29 | External Medical Summary | Summary of Care ---
Author Name Unknown Organization [facility] Address [address] [facility] [place] [address] Phone [phone] Care Team Providers Care Director Of User Experience Name Role Phone Case House MD Primary Care Provider [phone]- [phone] Encounter Details Date Type Department Care Team (Latest Contact Info) Description 09/09/2024 2:03 PM EST - 09/09/2024 11:59 PM EST Hospital Encounter Radiology Film File [address] [place] [address] Arrived Discharge Disposition: Home - Self Care Allergies Active Allergy Reactions Criticality Noted Date Comments Ciprofloxacin 05/27/2022 tendonitis Oxycodone Other (Please comment) 01/29/2016 Mental problems, confusion Other reaction(s): SEDATION Tramadol 10/28/2023 Difficult to arouse after taking medication documented as of this encounter (statuses as of 09/10/2024) Medications COENZYME Q-10 100 MG PO CAPS 1 CAPSULE DAILY 3 Active [employer] GLUCOSE SYSTEM W/DEVICE KIT Use as directed [...] as directed. Freestyle Zabrina 2 supplied by [employer] Active Lidocaine 4 % External Patch (Aspercreme) [...] trulicity 9 mL 4 4 Active Nystatin 927077 UNIT/GM External Powder (Nystop) Apply topically to [...] once daily 30 Tablet 5 5 Active LORazepam 0.5 MG Oral Tablet (Ativan)Indicatio ns:Anxiety state TAKE 1 TABLET BY MOUTH THREE TIMES DAILY NEEDED FOR ANXIETY 90 Tablet 5 Active Pregabalin 150 MG Oral Capsule (Lyrica) TAKE 1 CAPSULE BY MOUTH THREE TIMES DAILY 90 Capsule 5 Active documented as of this encounter (statuses as of 09/10/2024) Active Problems Problem Noted Date Diagnosed Date [...] reflux disease without esophagi tis 07/12/2019 Old [place] (myocardial infarction) 07/12/2019 Type 2 diabetes mellitus [...] as of this encounter (statuses as of 09/10/2024) Resolved Problems Problem Noted Date Diagnosed Date [...] BMI) 03/28/2015 11/18/2022 Overview (03/28/2015): bmi= 36.27 9/22/15 Need for pneumococcal vaccination 03/28/2015 09/26/2016 HTN, [...] as of this encounter (statuses as of 09/10/2024) Immunizations Name Administration Dates Next Due COVID-19 mRNA, LNP-s, No Pre serve, 2-Dose Series ([employer]) 10/17/2020,09/19/2020 Covid-19, Mrna, Lnp-s, Pf, B ivalent, [...] PM EDT Office Visit Pharmacy, Glenna Bond [address] [place] [phone] Glenna [facility] [address] [place], [place] [address] [address] 10/12/2024 1:40 PM EDT Office Visit Podiatry [facility] [address] [place] [phone] Danielle Burns DPM [address] [place] [address] 10/13/2024 10:23 AM EDT Hospital Encounter OR OSHP, Operating Room O[facility]P [address] [place], [place] [address] [phone] Phi Beckwith, DO [address] [place] [phone] 10/13/2024 10:23 AM EDT - 10/13/2024 10:42 AM EDT Surgery OR OSHP, Operating Room OSHP [address] [place] [address] [place] [phone] Phi Beckwith, DO [address] [place] [phone] INJECTION SPINE LUMBAR OR SACRAL 11/25/2024 2:20 PM EDT Office Visit [facility] Ronda Mckeon [address] [phone] Case House MD [address] [address] 12/02/2024 9:30 AM EDT Office Visit Urology Donald Sahu [address] [place] [address] Minerva Underwood PA-C [address] [place] [address] 09/13/2025 1:20 PM EDT Office Visit Dermatology [facility] [address] [place] [phone] Ran Millan PA-C [address] [facility] [place] [address] Scheduled Procedures Name Priority Associated Diagnoses Date/Ti me INJECTION SPINE LUMBAR OR SACRAL Lumbar radiculopathy 10/13/2024 10:23 AM EDT Health Maintenance Due Date Last Done Comments Adult Wellness Visit 02/27/2020 02/26/2019 Depression Screening 04/25/2023 04/25/2022, 09/30/2017, 09/13/2014 (Discussed) CKD PHOS USE SMARTSET 18078 11/19/202311/04, 03/13/2021, 01/30/2021, Additional history exists Diabetic Eye Exam 01/10/2024 01/09/2023, , 12/31/2019, Additional history exists COVID-19 Vaccine ( season) 2024 06/04/2022, 05/22/2021, 10/17/2020, Additional history exists CKD HGB USE SMARTSET 69288 04/25/202404/25, 06/18/2022, 06/11/2022, Additional history exists Diabetic [...] Procedure Name Priority Date/Time Associated Diagnosis Comments DERM EXAM - DERM (IMAGES ONLY, NO REPORT) Routine 09/09/2024 2:03 PM EST History of SCC (squamous cell carcinoma) of skin Scar Seborrheic keratosis Screening for malignant neoplasm of skin AK (actinic keratosis) documented in this encounter Results * DERM EXAM - DERM (IMAGES ONLY, NO REPORT) (09/09/2024 2:03 PM EST) Narrative Scheduling, Silent - 09/09/2024 2:03 PM EST This is an imaging study not interpreted or resulted by a [facility] or [employer] contracted radiologist. Ran Millan PA-C RADIOLOGY (RAD GENERAL) Fin al Result documented in this encounter Advance Directives * [...] and were consensually agreed upon. Care Teams Director Of User Experience Relationship Specialty Start Date End Date Case House MD [address] [address] PCP - General Family Medicine 07/08/24 documented as of this encounter
--- OUTSIDE RECORDS SUMMARY | 2024-09-17 06:29 | External Medical Summary ---
Author Name Unknown Address Unknown Organization K09:[facility] [place] [address] Laboratory Report Ordering Provider Test Date Status 09/16/2024 15:03:35 Final Observation Date Value Abnormality Reference (Units ) Status WBC, Total 09/16/2024 15:03:35 6.46 4.00-10.8 0 (K/uL) Final RBC 09/16/2024 15:03:35 4.25 3.85-5.15 (M/uL) Final Hemoglobin 09/16/2024 15:03:35 9.6 Below low normal 12 .0-15.3 (g/dL) Final HCT 09/16/2024 15:03:35 33.1 Below low normal 36. 0-45.2 (%) Final MCV 09/16/2024 15:03:35 77.9 81.5-97.5 (fL) Final MCH 09/16/2024 15:03:35 22.6 27.0-34.0 (pg) Final MCHC 09/16/2024 15:03:35 29.0 32.0-36.0 (g/dL) Final RDW 09/16/2024 15:03:35 21.3 11.5-15.5 (%) Final Platelets 09/16/2024 15:03:35 137 Below low normal 140 -400 (K/uL) Final MPV 09/16/2024 15:03:35 10.3 6.6-11.1 ( fL) Final Performing Location [facility] [place] [address]
--- OUTSIDE RECORDS SUMMARY | 2024-09-17 06:29 | External Medical Summary | Summary of Care ---
Author Name Unknown Organization [facility] Address [address] [place] [address] Phone [phone] Care Team Providers Care Soil Technologist Name Role Phone Lloyd Villa MD Primary Care Provider [phone]- [phone] Reason for Visit * Reason Comments Skin Check Patient presents tod for annual skin check. No concerns. Encounter Details Date Type Department Care Team ([facility] Contact Info) Description 09/09/2024 1:20 PM EST Office Visit Dermatology [address] [phone] Ran Millan PA-C [address] [place] [phone] History of SCC (squamous cell carcinoma) of skin*; Scar; Seborrheic keratosis; Screening for malignant neoplasm of skin; AK (actinic keratosis) Allergies Active Allergy Reactions Criticality Noted Date Comments Ciprofloxacin 05/27/2022 tendonitis Oxycodone Other (Please comment) 01/29/2016 Mental problems, confusion Other reaction(s): SEDATION Tramadol 10/28/2023 Difficult to arouse after taking medication documented as of this encounter (statuses as of 09/09/2024) Medications COENZYME Q-10 100 MG PO CAPS 1 CAPSULE DAILY 3 Active Common Sense MediaA GLUCOSE SYSTEM W/DEVICE KIT Use as directed [...] as directed. Freestyle Zabrina 2 supplied by [employer] Active Lidocaine 4 % External Patch (Aspercreme) [...] hemoglobin A1c goal of less than 8.0% ([facility]) Use to inject insulin once daily. 100 [...] trulicity 9 mL 4 4 Active Nystatin 515863 UNIT/GM External Powder (Nystop) Apply topically to [...] as of this encounter (statuses as of 09/09/2024) Active Problems Problem Noted Date Diagnosed Date [...] reflux disease without esophagi tis 07/12/2019 [place] (myocardial infarction) 07/12/2019 Type 2 diabetes mellitus [...] as of this encounter (statuses as of 09/09/2024) Resolved Problems Problem Noted Date Diagnosed Date [...] as of this encounter (statuses as of 09/09/2024) Immunizations Name Administration Dates Next Due COVID-19 mRNA, LNP-s, No Pre serve, 2-Dose Series ([employer]) 10/17/2020,09/19/2020 Covid-19, Mrna, Lnp-s, Pf, B ivalent, [...] as of this encounter Progress Notes * Kemar Roland MD - 09/09/2024 3:58 PM EST I have seen and examined via teledermatology review of chart note and photos the patient with Ran Millan PA-C. I have reviewed and agree with the assessment and plan. Kemar Roland MD * Ran Millan PA-C - 09/09/2024 1:11 PM EST SUBJECTIVE: History of Present Illness: Thuy Vargas is a 83 year old female seen today for follow up skin check. They would like dark/rough spots on the back checked. 09/09/2023 (in office) jaja Smallwood: benign verruca plana, inflamed REVIEW OF SYSTEMS: SKIN: No other new or changing moles. HEME/LYMPH: No new or enlarging lumps or bumps. SKIN CANCER HX: Right anterior lower leg: keratoacanthoma MEDICA TIONS: Current Outpatient Medications Medication Sig Dispense Refill COENZYME Q-10 100 MG PO CAPS 1 CAPSULE DAILY [employer] ULTIMA GLUCOSE SYSTEM W/DEVICE KIT Use as [...] Excedrin Extra Strength 250-250-65 MG Oral Tablet (Djsxxba-Ktvjwssmgtioe-Wqctfdli) Take 1 Tablet bymouth every 6 hours as needed. FreeStyle Zabrina 2 Sensor Use as directed. Freestyle Zabrina 2 supplied by [employer] 5-2.5-18.5 LF-MCG/0.5 Suspension Prefilled Syringe (Dsgmnfc-Hzotay-Mgnwb Pertussis) administer 0.5 ml intramuscularly as directed [...] taking: Reported on 07/08/2024) 1 Each 1 Ozempic (2 MG/DOSE) 8 MG/3ML Subcutaneous Solution Pen-injector (Semaglutide (2 MG/DOSE)) Inject 2 mg once weekly- this replaces trulicity 9 mL 4 Nystatin 198234 UNIT/GM External Powder (Nystop) Apply topically to [...] NEEDED FOR ABDOMINAL PAIN 120 Capsule 5 Insulin Glargine Solostar 100 UNIT/ML Subcutaneous Solution [...] tab for 2 days 30 Tablet 0 hydroCHLOROthiazide 25 MG Oral Tablet (Hydrodiuril) Take 1 tablet by mouth once daily 30 Tablet 5 LORazepam 0.5 MG Oral Tablet (Ativan) TAKE 1 TABLET BY MOUTH THREE TIMES DAILY NEEDED FOR ANXIETY 90 Tablet 0 Pregabalin 150 MG Oral Capsule (Lyrica) TAKE 1 CAPSULE BY MOUTH THREE TIMES DAILY 90 Capsule 0 No current facility-administered medications for this visit. ALLERG IES: Ciprofloxacin, Oxycodone, and Tramadol OBJECT KIRAN: GEN: Healthy, alert, no distress, appears oriented, pleasant, and cooperative. SKIN: Detailed exam of hair, face including lids and lips, neck, chest, abdomen, back, bilateral upper ext. (arm, hand, fingers), and bilateral lower ext. (leg) completed and are normal except: A. R anterior lower leg with pink scar B. Arms/legs/back/abdomen with brown waxy papules and thin plaques C. R nasal sidewall/L upper cutaneous lip with pink gritty papules ASSESS MENT/PLAN: A. 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 Reassurance. B. Seborrheic keratosis(es) -reassurance provided and no treatment recommended for benign, stable, and asymptomatic growths. Encouraged to call if changing/becoming symptomatic C. AK -Educated on premalignant potential and small risk of developing into a SCC. -Discussed treatment options. Plan to monitor and patient will call with new or changing lesions -recommended periodic skin exams for new or changing lesions with instructions to contact us in such circumstances for re-evaluation. These changes include rapid enlargement, changes in color or shape or symptoms, bleeding, or other concerns. Use of sun protection discussed. Follow-up: 1 year or sooner PRN Patient with her today. Photo(s) taken, pt verbally consented to having photo(s) taken. Contact patient via cell phone Ok to leave results on message: Yes Patient Phone Numbers Applicable photos (if any) and chart reviewed by Dr. Kemar Roland Presumed diagnoses, expected natural histories, and management options discussed with the patient at length. Questions were addressed and anticipatory guidance provided. They were instructed to contact me if additional questions, concerns, or problems develop in the interim. -There were no barriers to learning and no other pain was related to today's visit. The patient and/or person accompanying patient demonstrates understanding of the visit and treatment. Homa Millan PA-C 09/09/2024 1:11 PM REF: SELF [address] ADDRESS AVAILABLE [place] [address] [phone] documented in this encounter Nursing Notes * Loretta Chinchilla LPN - 09/09/2024 1:15 PM EST Patient identified by name and date. Chief Complaint Patient presents with Skin Check Patient presents today for annual skin check. No concerns. documented in this encounter Plan of Treatment Upcoming Encounters Date Type Department Care Team (Latest Contact Info) Description 09/30/2024 1:00 PM EDT [facility] [phone] [address] [address] 10/12/2024 1:40 PM EDT Office Visit Podiatry [facility] [address] [place] [phone] Danielle Burns DPM [address] [place] [address] 10/13/2024 10:23 AM EDT Hospital Encounter OR [facility], Operating Room [facility] [address] [place] [phone] Phi Beckwith, [address] [place] [phone] 10/13/2024 10:23 AM EDT - 10/13/2024 10:42 AM EDT Surgery OR [facility], Operating Room [address] [phone] Phi Beckwith, DO [address] [place] [address] INJECTION SPINE LUMBAR OR SACRAL 11/25/2024 2:20 PM EDT Office [facility] [address] [place] [phone] Lloyd Villa MD [address] [place] [address] 12/02/2024 9:30 AM EDT Office Visit Urology [facility] [address] [place] [address] Minerva Underwood PA-C [address] [place] [address] 09/13/2025 1:20 PM EDT Office Visit Dermatology [facility] [address] [place] [phone] Ran Millan PA-C [address] [place] [address] Scheduled Procedures Name Priority Associated Diagnoses Date/Ti me INJECTION SPINE LUMBAR OR SACRAL Lumbar radiculopathy 10/13/2024 10:23 AM EDT Health Maintenance Due Date Last Done Comments Adult Wellness Visit 02/27/2020 02/26/2019 Depression Screening 04/25/2023 04/25/2022, 09/30/2017, 09/13/2014 (Discussed) CKD PHOS USE SMARTSET 09095 11/19/202311/04, 03/13/2021, 01/30/2021, Additional history exists Diabetic Eye Exam 01/10/2024 01/09/2023, , 12/31/2019, Additional history exists COVID-19 Vaccine ( season) 2024 06/04/2022, 05/22/2021, 10/17/2020, Additional history exists CKD HGB USE SMARTSET 57583 04/25/202404/25, 06/18/2022, 06/11/2022, Additional history exists Diabetic [...] interpreted or resulted by a [facility] or [facility] contracted [facility]ologist. Ran Millan PA-C RADIOLOGY ([facility]) Fin al Result documented in this encounter Visit Diagnoses Diagnosis History of SCC (squamous cell carcinoma) of skin- Primary Personal history of other malignant neoplasm of skin Scar Scar condition and fibrosis of skin Seborrheic keratosis Other seborrheic keratosis Screening for malignant neoplasm of skin Screening for malignant neoplasm of the skin AK (actinic keratosis) Actinic keratosis Lumbar radiculopathy Thoracic or lumbosacral neuritis or [...] and were consensually agreed upon. Care Teams Soil Technologist Relationship Specialty Start Date End Date Lloyd Villa MD [address] [address] PCP - General Family Medicine 07/08/24 documented as of this encounter
--- OUTSIDE RECORDS SUMMARY | 2024-09-17 06:29 | External Medical Summary | Summary of Care ---
Author Name Unknown Organization [facility] Address [address] [address] Phone [phone] Care Team Providers Care Drawing Frame Tender Name Role Phone Lloyd Villa MD Primary Care Provider +1- [phone] Reason for Visit * Reason Comments Skin Check Patient presents tod for annual skin check. No concerns. Encounter Details Date Type Department Care Team ([facility] Contact Info) Description 09/09/2024 1:20 PM EST Office Visit Dermatology [address] [phone] Ran Millan PA-C [address] [place] [phone] History of SCC (squamous cell carcinoma) of [...] PO CAPS 1 CAPSULE DAILY 3 Active PurpleA GLUCOSE SYSTEM W/DEVICE KIT Use as directed [...] as directed. Freestyle Zabrina 2 supplied by [employer] ([employer]) Active Lidocaine 4 % External Patch (Aspercreme) [...] goal of less than 8.0% ([facility]) Use to inject insulin once [...] trulicity 9 mL 4 4 Active Nystatin 574771 UNIT/GM External Powder (Nystop) Apply topically to [...] reflux disease without esophagi tis 07/12/2019 Old [place] (myocardial infarction) 07/12/2019 Type 2 diabetes mellitus [...] mRNA, LNP-s, No Pre serve, 2-Dose Series (Novat[employer]) 10/17/2020,09/19/2020 Covid-19, Mrna, Lnp-s, Pf, B ivalent, [...] 100 MG PO CAPS 1 CAPSULE DAILY Iris MobileON ULTIMA GLUCOSE SYSTEM W/DEVICE KIT Use as [...] Excedrin Extra Strength 250-250-65 MG Oral Tablet (Yqszlxe-Bcdonvfocaocm-Afoxnmiq) Take 1 Tablet bymouth every 6 hours as needed. FreeStyle Zabrina 2 Sensor Use as directed. Freestyle Zabrina 2 supplied by [employer] 5-2.5-18.5 LF-MCG/0.5 Suspension Prefilled Syringe (Rbsziyf-Qfyjag-Dryqw Pertussis) administer 0.5 ml intramuscularly as directed [...] this replaces trulicity 9 mL 4 Nystatin 052218 UNIT/GM External Powder (Nystop) Apply topically to [...] STREET [place]: [place] [address] [phone] documented in this encounter Nursing Notes * Loretta Chinchilla LPN - 09/09/2024 1:15 PM EST Patient identified by name and date. Chief Complaint Patient presents with Skin Check Patient presents today for annual skin check. No concerns. documented in this encounter Plan of Treatment Upcoming Encounters Date Type Department Care Team (Latest Contact Info) Description 09/30/2024 1:00 PM EDT [facility] [address] [place] [phone] Greg [address] [address] 10/12/2024 1:40 PM EDT Office Visit Podiatry [facility] [address] [place] [address] Danielle Burns DPM [address] [place] [address] 10/13/2024 10:23 AM EDT Hospital Encounter OR [facility], Operating Room [facility] [address] [place] [phone] Phi Beckwith, [address] [place] [phone] 10/13/2024 10:23 AM EDT - 10/13/2024 10:42 AM EDT Surgery OR [facility], Operating Room [address] [phone] Phi Beckwith, DO [address] [place] [address] INJECTION SPINE LUMBAR OR SACRAL 11/25/2024 2:20 PM EDT Office [facility] [address] [place] [phone] Lloyd Villa MD [address] [place] [address] 12/02/2024 9:30 AM EDT Office Visit Urology [facility] [address] [address] Minerva Underwood PA-C [address] [place] [address] 09/13/2025 1:20 PM EDT Office Visit Dermatology [facility] [address] [place] [phone] Ran Millan PA-C [address] [place] [address] Scheduled Procedures Name Priority Associated Diagnoses Date/Ti me INJECTION SPINE LUMBAR OR SACRAL Lumbar radiculopathy 10/13/2024 10:23 AM EDT Health Maintenance Due Date Last Done Comments Adult Wellness Visit 02/27/2020 02/26/2019 Depression Screening 04/25/2023 04/25/2022, 09/30/2017, 09/13/2014 (Discussed) CKD PHOS USE SMARTSET 29075 11/19/202311/04, 03/13/2021, 01/30/2021, Additional history exists Diabetic Eye Exam 01/10/2024 01/09/2023, , 12/31/2019, Additional history exists COVID-19 Vaccine ( season) 2024 06/04/2022, 05/22/2021, 10/17/2020, Additional history exists CKD HGB USE SMARTSET 15648 04/25/202404/25, 06/18/2022, 06/11/2022, Additional history exists Diabetic [...] [facility]. Ran Millan PA-C RADIOLOGY ([facility]) Fin al Result documented in this [...] and were consensually agreed upon. Care Teams Drawing Frame Tender Relationship Specialty Start Date End Date Lloyd Villa MD [address] [address] PCP - General Family Medicine 07/08/24 documented as of this encounter
--- OUTSIDE RECORDS SUMMARY | 2024-09-17 06:29 | External Medical Summary ---
Author Name Unknown Address Unknown Organization K09:[facility] [place] [address] Laboratory Report Ordering Provider Test Date Status 09/16/2024 15:03:35 Final Observation Date Value Abnormality Reference (Units ) Status BUN 09/16/2024 15:03:35 22 Above high normal 6-20 (mg/dL) Final Creatinine 09/16/2024 15:03:35 1.2 Above high normal 0.5-1.0 (mg/dL) Final Glomerular filtration rate/1.73 sq M.predicted [Volume Rate/Area] in Serum, Plasma or Blood by Creatinine-based formula (CKD-EPI) 09/16/2024 15:03:35 48 Below low normal >=60 (mL/min) Final eGFR is calculated based on the CKD-EPI 2020 equation. Sodium 09/16/2024 15:03:35 141 135-146 (m mol/L) Final Potassium 09/16/2024 15:03:35 3.7 3.5-5.1 (m mol/L) Final Cl 09/16/2024 15:03:35 102 98-107 (mm ol/L) Final CO2 09/16/2024 15:03:35 29 22-32 (mmo l/L) Final Anion gap 09/16/2024 15:03:35 10 7-15 (mmol /L) Final Glucose 09/16/2024 15:03:35 151 Above high normal 70 -120 (mg/dL) Final Calcium 09/16/2024 15:03:35 9.4 8.4-10.2 ( mg/dL) Final Performing Location [facility] [place] [address]
[2024-09-17 06:35] LABS: Hematocrit (blood only) 31.5 % (37.0-47.0); Hemoglobin 9.1 g/dl (12.0-16.0); Mean Corpuscular Hemoglobin 22.4 pg (25.0-34.0); Mean Corpuscular Hgb Conc 28.9 g/dL (32.0-36.0); Mean Corpuscular Volume 77.4 fL (80.0-100.0); Mean Platelet Volume 10.6 fL (9.4-12.4); Platelet Count 147 K/uL (130-400); RDW Coefficient of Variation 20.5 % (11.5-14.5); RDW Standard Deviation 56.8 fL (36.4-46.3); Red Blood Count 4.07 M/uL (4.20-5.40); White Blood Count 5.98 K/ul (4.8-10.8)
[2024-09-17 06:51] LABS: Calcium 9.1 mg/dl (8.6-10.3); Phosphorus 3.7 mg/dl (2.5-4.9); Potassium 3.9 mmol/L (3.5-5.1)
[2024-09-17 07:03] LABS: Ovalocytes 1+
[2024-09-17 08:33] LABS: Estimated Average Glucose 163 mg/dl; Hemoglobin A1C 7.3 % (4.5-5.6)
[2024-09-17] MEDS: ACETAMINOPHEN 325 MG TAB PO PRN (08:46)
[2024-09-17] MEDS: LANTUS PER UNIT CHARGE SC SCH ×2 (08:46→21:04)
[2024-09-17] MEDS: PANTOprazole 40 MG TAB PO SCH (08:47)
[2024-09-17] MEDS: FAMOTIDINE 10 MG TABLET PO SCH (08:47)
[2024-09-17] MEDS: ENOXAPARIN INJ 40 MG/0.4 ML SYR SQ SCH (08:47)
[2024-09-17] MEDS: hydroCHLOROthiazide 25 MG TAB PO SCH (08:47)
[2024-09-17] MEDS ORDERED: NON-FORMULARY MEDICATION (Insulin Glargine [Lantus Solostar U-100 Insulin] 100 unit/mL (3 SQ SCH (09:00)
--- OUTSIDE RECORDS SUMMARY | 2024-09-17 10:08 | External Medical Summary | Summary of Care ---
Author Name Unknown Organization [facility] Address [address] [place] [address] Phone [phone] Care Team Providers Care Rn Women Services Name Role Phone Case House MD Primary Care Provider [phone] Reason for Visit * Reason Comments Outpatient Testing Encounter Details Date Type Department Care Team (Late st Contact Info) Description 09/16/2024 3:00 PM EDT Laboratory Laboratory [facility] [place] [address] [place] [phone] [place], Lab Scenery [address] [place] [address] Acute cough; SOB (shortness of breath) Allergies Active Allergy Reactions Criticality Noted Date Comments Ciprofloxacin 05/27/2022 tendonitis Oxycodone Other (Please comment) 01/29/2016 Mental problems, confusion Other reaction(s): SEDATION Tramadol 10/28/2023 Difficult to arouse after taking medication documented as of this encounter (statuses as of 09/16/2024) Medications COENZYME Q-10 100 MG PO CAPS 1 CAPSULE DAILY 3 Active RELION ULTIMA GLUCOSE SYSTEM W/DEVICE KIT Use as directed. Active Valerian Root 100 MG CAPS Take [...] as directed. Freestyle Zabrina 2 supplied by [employer] Active Lidocaine 4 % External Patch (Aspercreme) [...] BEFORE BREAKFAST 90 Capsule 3 4 Active Ozempic (2 MG/DOSE) 8 MG/3ML Subcutaneous Solution Pen-injector (Semaglutide (2 MG/DOSE))Indicat ions:Type 2 diabetes mellitus with hemoglobin A1c goal of less than 8.0% (HCC) Inject 2 mg once weekly- this replaces trulicity 9 mL 4 4 Active Nystatin 996858 UNIT/GM External Powder (Nystop) Apply topically to [...] goal of less than 8.0% ([facility]) Inject 36 Units under the skin at bedtime. Formulary change- replacing Semglee Do not start before July 07, 2024. 45 mL 4 5 Active predniSONE 10 MG Oral Tablet (Deltasone)Indic ations:Right foot pain Take 5 tabs for 2 days, 4 tabs for 2 days, 3 tabs for 2 days, 2 tabs for 2 days 1 tab for 2 days 30 Tablet 5 Active hydroCHLOROthiaz river 25 MG Oral Tablet (Hydrodiuril) Take 1 tablet by mouth once daily 30 Tablet 5 5 Active Pregabalin 150 MG Oral Capsule (Lyrica) TAKE 1 CAPSULE BY MOUTH THREE TIMES DAILY 90 Capsule 5 Active LORazepam 0.5 MG Oral Tablet (Ativan)Indicati ons:Anxiety state TAKE 1 TABLET BY MOUTH THREE TIMES DAILY NEEDED FOR ANXIETY 90 Tablet 5 Active documented as of this encounter (statuses as of 09/16/2024) Active Problems Problem Noted Date Diagnosed Date Type 2 diabetes mellitus wit h stage 3a chronic kidney disease, without long-term current use of insulin 09/16/2024 Abdominal aortic aneurysm (AAA) without rupture 11/18/2022 Controlled substance agreement signed 11/07/2021 Hypertensive kidney disease with stage 3b chronic kidney disease 06/18/2021 Overview: Per CKD protocol Assessment & Plan (09/16/2024 2:37 PM EDT): Type 2 diabetes mellitus wit h stage 3b chronic kidney disease 06/18/2021 Overview: Per CKD protocol Assessment & Plan (09/16/2024 2:37 PM EDT): Thrombosis of left jugular vein 04/12/2021 Chronic diastolic heart failure 12/13/2020 Gastroesophageal reflux disease without esophagi tis 07/12/2019 Old ID (myocardial infarction) 07/12/2019 Type 2 diabetes mellitus with polyneuropathy 08/2018 Prolapse of vaginal vault after hysterectomy Rectocele 03/20/2018 Nephrolithiasis 05/23/2017 Primary osteoarthritis involving multiple joints 09/26/2016 HTN, goal below 150/90 11/23/2015 Assessment & Plan (09/16/2024 2:37 PM EDT): LVH (left ventricular hypertrophy) 10/05/2015 Diastolic dysfunction 10/05/2015 Anxiety state 08/02/2014 Vitamin D deficiency 09/30/2011 Rosacea 09/28/2007 Type 2 diabetes mellitus wit h hemoglobin A1c goal of less than 8.0% Overview (11/02/2015): ICD-10 update of inactive term Dyslipidemia, goal LDL below 70 documented as of this encounter (statuses as of 09/16/2024) Resolved Problems Problem Noted Date Diagnosed Date [...] as of this encounter (statuses as of 09/16/2024) Immunizations Name Administration Dates Next Due COVID-19 [...] EDT [facility], [facility] [address] [facility] [place] [phone] [facility] [address] [facility] [place] [address] 10/12/2024 1:40 PM EDT Office Visit Podiatry [facility] [address] [place] [phone] Danielle Burns DPM [address] [place] [address] 10/13/2024 10:23 AM EDT Hospital Encounter [facility], Operating Room [facility] [address] [place] [address] [place] [phone] Phi Beckwith, DO [address] [place] [phone] 10/13/2024 10:23 AM EDT - 10/13/2024 10:42 AM EDT Surgery OR [facility], Operating Room OS [address] [place] [address] [place] [phone] Phi Beckwith, DO [address] [place] [phone] INJECTION SPINE LUMBAR OR SACRAL 11/25/2024 2:20 PM EDT Office Visit [facility] [address] [facility] [phone] Case [facility] MD [address] [facility] [place] [place] [address] 12/02/2024 9:30 AM EDT Office Visit Urology Donald Sahu [address] [address] Minerva Underwood PA-C [address] [address] 09/13/2025 1:20 PM EDT Office Visit Dermatology [facility] [address] [place] [phone] Ran Millan [facility]-C [address] [facility] [phone] Pending Results Name Type Priority Associated Diagnoses Date /Time BNP, NT-PRO Lab Routine SOB (shortness of breath) 09/16/2024 3:03 PM EDT Scheduled Procedures Name Priority Associated Diagnoses Date/Ti me INJECTION SPINE LUMBAR OR SACRAL Lumbar radiculopathy 10/13/2024 10:23 AM EDT Health Maintenance Due Date Last Done Comments Adult Wellness Visit 02/27/2020 02/26/2019 Depression Screening 04/25/2023 04/25/2022, 09/30/2017, 09/13/2014 (Discussed) CKD PHOS USE SMARTSET 56290 11/19/202311/04, 03/13/2021, 01/30/2021, Additional history exists Diabetic Eye Exam 01/10/2024 01/09/2023, , 12/31/2019, Additional history exists COVID-19 Vaccine ( season) 2024 06/04/2022, 05/22/2021, 10/17/2020, Additional history exists Diabetic Foot Exam 08/08/2024 08/08/2023, 1 07/16/2019, 04/08/2018, Additional history exists Albumin/Creatinine Ratio 09/04/202409/04/ 024, 08/12/2022, 04/25/2022, Additional history exists HbA1c 01/05/2025 07/08/2024, 05/07, 09/05/2023, Additional history exists GFR 03/19/2025 09/16/2024, 08/2024, 05/25/2024, Additional history exists Mammogram 05/19/2025 05/19/2024, 05/07, 03/25/2023, Additional history exists B-12 05/25/2025 05/25/2024, 0212/2022, 01/30/2021, Additional history exists DXA Scan 07/23/2025 07/23/2022, 07/07, 03/17/2019, Additional history exists CKD HGB USE SMARTSET 12779 09/16/202509/16, 04/25/2023, 06/18/2022, Additional history exists DTap/Tdap Vaccines (2 - [...] Procedure Name Priority Date/Time Associated Diagnosis Comments BASIC METABOLIC PANEL STAT 09/16/2024 3:03 PM EDT Acute cough CBC STAT 09/16/2024 3:03 PM EDT Acute cough documented in this encounter Results * (ABNORMAL) BASIC METABOLIC PANEL (09/16/2024 3:03 PM EDT) BUN 22(H) 6 - 20 mg/dL 09/16/2024 3:33 PM EDT [facility] 56- CREATININE 1.2(H) 0.5 - 1.0 mg/dL 09/16/2024 3:33 PM EDT [facility] 56- EGFR 48(L) >=60 mL/min 09/16/2024 3:33 PM EDT [facility] 56- Comment:eGFR is calculated b ased on the CKD-EPI 2020 equation. SODIUM 141 135 - 146 mmol/L 09/16/2024 3:33 PM EDT [facility] [place] 56- POTASSIUM 3.7 3.5 - 5.1 mmol/L 09/16/2024 3:33 PM EDT [facility] 56- CHLORIDE 102 98 - 107 mmol/L 09/16/2024 3:33 PM EDT [facility] 56- CO2 29 22 - 32 mmol/L 09/16/2024 3:33 PM EDT [facility] 56- ANION GAP 10 7 - 15 mmol/L 09/16/2024 3:33 PM EDT [facility] 56 GLUCOSE 151(H) 70 - 120 mg/dL 09/16/2024 3:33 PM EDT [facility] 56 CALCIUM 9.4 8.4 - 10.2 mg/dL 09/16/2024 3:33 PM EDT [facility] 56 Blood Venous blood specimen / Unknown Venipuncture / Unknown 09/16/2024 3:03 PM EDT 09/16/2024 3:03 PM EDT us October Duy [facility] LAB BLOOD ORDERABLES Final Res ult [facility] [address] [place], [place] [phone] * (ABNORMAL) CBC (09/16/2024 3:03 PM EDT) WBC 6.46 4.00 - 10.80 K/uL 09/16/2024 3:16 PM EDT [facility] 56 RBC 4.25 3.85 - 5.15 M/uL 09/16/2024 3:16 PM EDT [facility] 56 HGB 9.6(L) 12.0 - 15.3 g/dL 09/16/2024 3:16 PM EDT [facility] 56 HCT 33.1(L) 36.0 - 45.2 % 09/16/2024 3:16 PM EDT [facility] 56 MCV 77.9 81.5 - 97.5 fL 09/16/2024 3:16 PM EDT [facility] 56 MCH 22.6 27.0 - 34.0 pg 09/16/2024 3:16 PM EDT [facility] 56 MCHC 29.0 32.0 - 36.0 g/dL 09/16/2024 3:16 PM EDT [facility] 56 RDW 21.3 11.5 - 15.5 % 09/16/2024 3:16 PM EDT [facility] 56 PLT 137(L) 140 - 400 K/uL 09/16/2024 3:16 PM EDT [facility] 56-02 MPV 10.3 6.6 - 11.1 fL 09/16/2024 3:16 PM EDT [facility] 56-02 Blood Venous blood specimen / Unknown Venipuncture / Unknown 09/16/2024 3:03 PM EDT 09/16/2024 3:03 PM EDT us October A Duy [facility]EEK LAB BLOOD ORDERABLES Final Res ult [facility] 56-[address] [place] [address] documented in this encounter Visit Diagnoses Diagnosis Acute cough- Primary SOB (shortness of breath) Shortness of breath Type 2 diabetes mellitus with stage 3b chronic kidney disease, unspecified whether tank terminal gauger insulin use (HCC) HTN, goal below 150/90 Hypertensive kidney disease with stage 3b chronic kidney disease (HCC) Type 2 diabetes mellitus with stage 3a chronic kidney disease, without long-term current use of insulin (HCC) Chronic diastolic heart failure (HCC) Chronic diastolic heart failure Acute cough SOB (shortness of breath) Shortness of breath Lumbar radiculopathy Thoracic or lumbosacral neuritis or [...] and were consensually agreed upon. Care Teams Rn Women Services Relationship Specialty Start Date End Date Case House MD [address] [address] PCP - General Family Medicine 07/08/24 documented as of this encounter
--- NOTE | 2024-09-17 11:16 | Pharmacy Report ---
Pharmacy Glycemic Short Note 2 - Date of Service September 17, 2024 - Glycemic Short BSG Results (Last 24 hours): 09/16/24 09/17/24 09/17/24 17:30 00:13 06:11 Glucose 143 H 141 H POC Glucose 170 H 09/17/24 08:06 Glucose POC Glucose 183 H OUTPATIENT ANTIDIABETIC REGIMEN: * Lantus 36 units SC qAM * Metformin 750 mg PO BIDM * Empagliflozin 10 mg PO daily * Ozempic 2 mg SC weekly (Mondays) HbA1c: 7.3% (09/17/24) ASSESSMENT: * PH is an 83 year old female admitted with acute hypoxic respiratory failure likely secondary to COVID * Currently receiving ceftriaxone for presumed UTI * Will utilize ~weight-based/stress of 2 Novolog parameters initially * Conservative initial goal range initially (prioritizing hypoglycemia minimization based on age) * Patient with history of HFpEF, will continue empagliflozin 10 mg PO daily * Diet ordered PLAN FOR INPATIENT GLYCEMIC CONTROL: * Hold outpatient metformin and Ozempic * Continue outpatient empagliflozin 10 mg PO daily for HFpEF/diabetes * Basal insulin * Lantus 15 units SC daily (~0.2 unit/kg) * Lantus 0-5-10 units SC HS (see EHR for details) * Bolus insulin * NovoLog per scale ACHS or Q6hrs while NPO * Goal Range: Low 120 mg/dL - High 160 mg/dL * Correction Factor: 30 mg/dL/unit * Nutritional / Prandial insulin per carb ratio of 1 unit per 10 grams CHO consumed
--- NOTE | 2024-09-17 12:57 | Hospitalist Progress Note ---
Date of Service September 17, 2024 Assessment & Plan (1) Acute hypoxic respiratory failure: (2) Respiratory acidosis: (3) Diastolic dysfunction: (4) Ambulatory dysfunction: (5) COVID: (6) Diabetes mellitus, type II: Plan Ms. Vargas is an 83 y/o female with DM2, prior NSTEMI, chronic HFpEF, HTN, hyperlipidemia, CKD3, prior left jugular vein thrombosis, dementia, GERD who presents from outpatient clinic for noted hypoxia into 80s and admitted for acute hypoxic respiratory failure iso COVID infection. #Acute hypoxic respiratory failure: #COVID Infection -2/2 COVID and perhaps underlying lung disease CTA negative for pulm emboli -patient familiar to this provider, saturates around 90% at baseline, does not ambulate at baseline (very minimally) Recent admission end of 08/31 with hypoxia noted, goal to maintain >88% -Discontinue with remdesevir given mild disease and no radiographic evidence of COVID infection However, pulm edema noted, though bnp 83, will trial low dose lasix #acute cystitis continue ctx #Acute heart failure with preserved EF -patient appears dry on exam x 1 Lasix 10mg IV #Ambulatory dysfunction: -only pivots at baseline -patient would be interested in home PT/OT but not SNF Plan: -PT/OT: op therapy script to be provided #Thyroid goiter CTA noted Enlarged, multinodular left thyroid goiter with retrosternal extension, stable from prior. OP follow up #Diabetes mellitus, type II: -continue home lantus -protocol SSI ordered -pharmacy consult, appreciate recs DVT ppx lovenox dispo 1-2 days home with op pt/ot Admission and Anticipated Discharge Date Admission Date: September 16, 2024 Subjective NAEO reports feeling ok this morning She denies any acute concerns, or worsening cough, sob, dyspnea Physical Exam Constitutional: WD/WN, vitals as above elderly woman, pleasant Respiratory: diminished in bases 2/2 effort and habitus Cardiovascular: RRR, no murmur, no edema Results & Data Results & Data Vital Signs (Past 12 Hours) Vital Signs Temp Pulse Pulse Resp BP Pulse Ox O2 Del Method 09/17/24 08:22 37.5 C 108 H 20 135/76 94 Room Air 09/17/24 07:30 105 H 09/17/24 01:18 Nasal Cannula 09/17/24 00:58 96 H 03/14/25 00:55 36.9 C 102 H 22 134/64 95 Nasal Cannula O2 Flow Rate 09/17/24 08:22 09/17/24 07:30 09/17/24 01:18 2 09/17/24 00:58 09/17/24 00:55 2 Laboratory Results Short CBC 09/16/24 09/17/24 Range/Units 17:30 06:11 WBC 6.69 5.98 (4.8-10.8) K/ul Hgb 9.4 L 9.1 L (12.0-16.0) g/dl Hct 32.2 L 31.5 L (37.0-47.0) % Plt Count 147 147 (130-400) K/uL BMP 09/16/24 09/17/24 17:30 06:11 Sodium 142 138 Potassium 3.6 3.9 Chloride 102 100 Carbon Dioxide 31 34 H BUN 22 17 Creatinine 1.14 1.00 Glucose 143 H 141 H Calcium 9.2 9.1 Liver Function 09/16/24 Range/Units 17:30 Total Bilirubin 0.5 (0.2-1.0) mg/dl Direct Bilirubin 0.1 (0-0.2) mg/dl AST 43 H (13-39) U/L ALT 33 (7-52) U/L Alkaline Phosphatase 79 (34-104) U/L Albumin 3.9 (3.4-5.0) gm/dl Urine 09/16/24 Range/Units 17:20 Urine Color Dark Yellow Urine Appearance Clear (Clear) Urine pH 5.0 (4.5-7.5) Ur Specific [place] 1.031 H (1.000-1.030) Urine Protein 1+ H (Negative) Urine Glucose (UA) 3+ H (Negative) Medications Administered Home Medications Medication Instructions Recorded Confirmed Last Taken omega-3 fatty acids 1,000 mg 2,000 mg PO QAM ##0 10/15/13 09/16/24 09/16/24 0 9:00 capsule omeprazole 20 mg tablet,delayed 20 mg PO QAM ##0 10/15/13 09/16/24 09/16/24 09:00 release coenzyme Q10 100 mg capsule 100 mg PO QAM ##0 01/04/16 09/16/24 09/16/24 09:00 atorvastatin 40 mg tablet 40 mg PO HS ##0 04/09/17 09/16/24 09/15/24 23:00 dicyclomine 10 mg capsule 10 mg PO TID Abdominal Pain ##0 04/09/17 09/16/24 09/16/24 12:00 peg 400-propylene glycol 0.4 %-0.3 1 drp ophthalmic (eye) QID PRN Dry 05/12/19 09/16/24 09/22/21 % eye drops (Systane Ultra) Eye(S) vitamin B complex 1 tab PO QAM 09/21/20 09/16/24 09/16/24 09:00 lorazepam 0.5 mg tablet 0.5 mg PO BID Anxiety 05/24/21 09/16/24 09/16/24 12:00 metformin 750 mg tablet,extended 750 mg PO BIDM 05/24/21 09/16/24 09/16/24 18:00 release 24 hr pregabalin 150 mg capsule 150 mg PO TID 05/24/21 09/16/24 09/16/24 09:00 klloqem-xkntjdfrtoesg-zvcbfuwe 250 2 tab PO Q6H PRN Pain 09/24/21 09/16/24 09/23/21 mg-250 mg-65 mg tablet (Excedrin Extra Strength) hydrochlorothiazide 25 mg tablet 25 mg PO QAM 09/24/21 09/16/24 09/16/24 09:00 magnesium 250 mg tablet 250 mg PO QAM 09/24/21 09/16/24 09/16/24 09:00 cyanocobalamin (vitamin B-12) 500 500 mcg PO DAILY 06/05/22 09/16/24 09/16/24 09:00 mcg tablet (Vitamin B-12) empagliflozin 10 mg tablet 10 mg PO QAM 06/05/22 09/16/24 09/16/24 09:00 (Jardiance) famotidine 10 mg tablet (Acid 10 mg PO QAM 08/31/24 09/16/24 09/16/24 09:00 Pipe Finisher (famotidine)) insulin glargine 100 unit/mL (3 36 unit subcut QA 08/31/24 09/16/24 09/16/24 10:00 mL) subcutaneous pen (Lantus Solostar U-100 Insulin) semaglutide 2 mg/dose (8 mg/3 mL) 2 mg subcut WK 08/31/24 09/16/24 09/13/24 09:00 subcutaneous pen injector (Ozempic) Active Medications Generic Name Dose Route Start Last Admin Trade Name Freq PRN Reason Stop Dose Admin Acetaminophen 650 mg 09/16/24 22:24 09/17/24 08:46 Acetaminophen 325 Mg Tab PO 10/16/24 22:23 650 mg Q4H PRN Administration pain/fever Atorvastatin Calcium 40 mg 09/16/24 22:24 09/17/24 00:10 Atorvastatin 40 Mg Tab PO 10/16/24 22:23 40 mg HS URI Administration Enoxaparin Sodium 40 mg 09/17/24 09:00 09/17/24 08:47 Enoxaparin Inj 40 Mg/0.4 Ml Syr SQ 10/17/24 08:59 40 mg QAM URI Administration Famotidine 10 mg 09/17/24 09:00 09/17/24 08:47 Famotidine 10 Mg Tablet PO 10/17/24 08:59 10 mg QAM URI Administration Hydrochlorothiazide 25 mg 09/17/24 09:00 09/17/24 08:47 Hydrochlorothiazide 25 Mg Tab PO 10/17/24 08:59 25 mg QAM URI Administration Insulin Aspart 0 units 09/16/24 23:30 09/17/24 08:46 Insulin Aspart Per Unit Charge SC 10/16/24 23:29 4 units ACHS URI Administration Insulin Glargine 15 units 09/17/24 09:00 09/17/24 08:46 Lantus Per Unit Charge SC 10/17/24 08:59 15 units DAILY URI Administration Lorazepam 0.5 mg 09/16/24 22:24 09/17/24 08:54 Lorazepam 0.5 Mg Tab PO 10/16/24 22:23 0.5 mg BID URI Administration Pantoprazole Sodium 40 mg 09/17/24 09:00 09/17/24 08:47 Pantoprazole 40 Mg Tab PO 10/17/24 08:59 40 mg QAM URI Administration Pregabalin 150 mg 09/16/24 22:24 09/17/24 08:47 Pregabalin 150 Mg Cap PO 10/16/24 22:23 150 mg TID URI Administration (6) Diabetes mellitus, type II Diabetes mellitus complication detail: with unspecified neuropathy Diabetes mellitus complication status: with neurologic complications Diabetes mellitus long term care social worker insulin use: with long term care social worker use Qualified Code(s): E11.40 - Type 2 diabetes mellitus with diabetic neuropathy, unspecified; Z79.4 - halfway (current) use of insulin
[2024-09-17] MEDS: FUROSEMIDE INJ 20 MG/2 ML VIAL IV STA (13:23)
[2024-09-17] MEDS: EMPAGLIFLOZIN 10 MG TAB PO SCH (13:24)
[2024-09-17] MEDS: POTASSIUM CHLORIDE PWD 20 MEQ PACK PO SCH (14:00)
[2024-09-17] MEDS: cefTRIAXone SODIUM 2,000 MG/50 ML BAG IV SCH (18:40)
[2024-09-17] MEDS ORDERED: REMDESIVIR 100 MG in SODIUM CHLORIDE 0.9% 230 ML IV SCH (20:00)
--- NOTE | 2024-09-17 21:51 | Electrocardiogram Report ---
Test Reason : Blood Pressure : */* mmHG Vent. Rate : 95 BPM Atrial Rate : 95 BPM P-R Int : 160 ms QRS Dur : 78 ms QT Int : 334 ms P-R-T Axes : 49 -34 47 degrees QTcB Int : 419 ms Sinus rhythm with Premature atrial complexes Left axis deviation Low voltage QRS Inferior infarct , age undetermined Possible Anterolateral infarct (cited on or before 05-Jun-2022) Abnormal ECG When compared with ECG of 31-Aug-2024 11:57, Premature atrial complexes are now Present Confirmed by Krzysztof Overton ([id number]) on 09/17/2024 9:50:58 PM Referred By: Confirmed By: Krzysztof Overton
[2024-09-18 06:36] LABS: Hemoglobin 9.6 g/dl (12.0-16.0); Mean Corpuscular Hemoglobin 22.3 pg (25.0-34.0); Mean Corpuscular Hgb Conc 29.1 g/dL (32.0-36.0); Mean Corpuscular Volume 76.7 fL (80.0-100.0); Mean Platelet Volume 10.3 fL (9.4-12.4); Platelet Count 161 K/uL (130-400); RDW Coefficient of Variation 20.5 % (11.5-14.5); RDW Standard Deviation 55.5 fL (36.4-46.3); White Blood Count 5.04 K/ul (4.8-10.8)
[2024-09-18 07:13] LABS: BUN Creatinine Ratio 19.6 (10-20); Calcium 9.4 mg/dl (8.6-10.3); Creatinine Clr Calc Pharmacy 40.2 ml/min; Magnesium 2.1 mg/dl (1.7-2.4); Phosphorus 3.7 mg/dl (2.5-4.9); Potassium 3.7 mmol/L (3.5-5.1)
[2024-09-18] MEDS: FUROSEMIDE 20 MG TAB PO SCH (10:03)
[2024-09-18] MEDS: TROLAMINE SALICYLATE 10% CRM 255 APPLN/85 GM TUBE EXT SCH (10:59)
--- NOTE | 2024-09-18 11:26 | XRay Report ---
HISTORY: Stool burden and abdominal pain. TECHNIQUE: Supine AP abdominal radiographs, 3 views. COMPARISON: CT of the abdomen and pelvis dated 08/31/2024. FINDINGS: Large volume of stool throughout the colon. No gas-filled dilated loops of small bowel. No obvious free air or pneumatosis. Calcified pelvic phleboliths. Atherosclerotic vascular disease. Degenerative changes of the spine.The lung bases are unremarkable. IMPRESSION: * No acute findings. * Large volume of stool compatible with constipation. Electronically signed by Dominic Pandey 09-18-2024 11:26 AM
[2024-09-18] MEDS: LACTULOSE SYRUP 20 GM/30 ML UDC PO ONE (13:30)
--- NOTE | 2024-09-18 14:49 | Hospitalist Progress Note ---
Date of Service September 18, 2024 Assessment & Plan (1) Acute hypoxic respiratory failure: (2) Respiratory acidosis: (3) Diastolic dysfunction: (4) Ambulatory dysfunction: (5) COVID: (6) Diabetes mellitus, type II: Plan Ms. Vargas is an 83 y/o female with DM2, prior NSTEMI, chronic HFpEF, HTN, hyperlipidemia, CKD3, prior left jugular vein thrombosis, dementia, GERD who presents from outpatient clinic for noted hypoxia into 80s and admitted for acute hypoxic respiratory failure iso COVID infection. #Constipation KUB with large stool burden lactulose x 1 #Acute hypoxic respiratory failure: #COVID Infection -2/2 COVID and perhaps underlying lung disease CTA negative for pulm emboli -patient familiar to this provider, saturates around 90% at baseline, does not ambulate at baseline (very minimally) Recent admission end of 08/31 with hypoxia noted, goal to maintain >88% -Discontinue with remdesevir given mild disease and no radiographic evidence of COVID infection However, pulm edema noted, though bnp 83, will trial low dose lasix Noctural oximetry noted hypoxia, witll need night time o2 2 step ordered for home o2 #Nephrolithiasis Patient with history of calcium oxalate stones. She had lithotripsy in 2019. Hx of elevated calcium-She knows to avoidvitamin-D andcalcium supplement and Vitamin-C as well. She knows to keep well hydrated.She is unable to do urorisk profile. Cont with HTCZ 25 mg, followed by nephrology #Sinus tachycardia previously on coreg will start low dose metoprolol as bp control less necessary and mroe for HR stabilization given pacs/pvc #acute cystitis continue ctx #Acute heart failure with preserved EF -patient appears dry on exam x 1 Lasix 10mg IV #Ambulatory dysfunction: -only pivots at baseline -patient would be interested in home PT/OT but not SNF Plan: -PT/OT: op therapy script to be provided #Thyroid goiter CTA noted Enlarged, multinodular left thyroid goiter with retrosternal extension, stable from prior. OP follow up #Diabetes mellitus, type II: -continue home lantus -protocol SSI ordered -pharmacy consult, appreciate recs plan for dispo tomorrow Admission and Anticipated Discharge Date Admission Date: September 16, 2024 Subjective NAEO--reports some abdominal discomfort--noting she hasnt had a bowel movement in many days She states otherwise she is fine Discussed the likelihood she will need oxygen at night and potentially at rest as well Physical Exam Constitutional: WD/WN, vitals as above Respiratory: normal respiratory effort, lungs clear to auscultation Cardiovascular: tachycardic Gastrointestinal (Abdomen): distended abdomen, soft mild tenderness Results & Data Results & Data Vital Signs (Past 12 Hours) Vital Signs Temp Pulse Pulse Pulse Pulse Pulse Resp 09/18/24 14:43 105 H 09/18/24 11:41 37.2 C 90 17 09/18/24 08:33 09/18/24 07:55 37.4 C 103 H 17 09/18/24 07:47 122 H 107 H 101 H 09/18/24 07:17 103 H 09/18/24 03:55 37 C 92 H 16 09/18/24 03:47 89 Resp Resp Resp BP BP Pulse Ox Pulse Ox 09/18/24 14:43 09/18/24 11:41 112/67 95 09/18/24 08:33 09/18/24 07:55 118/71 97 09/18/24 07:47 20 20 20 91 09/18/24 07:17 09/18/24 03:55 115/62 94 09/18/24 03:47 Pulse Ox Pulse Ox O2 Del Method O2 Del Method O2 Flow Rate O2 Flow Rate O2 Flow Rate 09/18/24 14:43 09/18/24 11:41 Nasal Cannula 2 09/18/24 08:33 Nasal Cannula 2 09/18/24 07:55 Nasal Cannula 2 09/18/24 07:47 92 86 L 2 2 09/18/24 07:17 09/18/24 03:55 Nasal Cannula 2 09/18/24 03:47 99 Nasal Cannula O2 Flow Rate 09/18/24 14:43 09/18/24 11:41 09/18/24 08:33 09/18/24 07:55 09/18/24 07:47 09/18/24 07:17 09/18/24 03:55 09/18/24 03:47 2 Laboratory Results Short CBC 09/18/24 Range/Units 06:13 WBC 5.04 (4.8-10.8) K/ul Hgb 9.6 L (12.0-16.0) g/dl Hct 33.0 L (37.0-47.0) % Plt Count 161 (130-400) K/uL BMP 09/18/24 06:13 Sodium 140 Potassium 3.7 Chloride 98 Carbon Dioxide 35 H BUN 22 Creatinine 1.12 Glucose 132 H Calcium 9.4 Medications Administered Home Medications Medication Instructions Recorded Confirmed Last Taken omega-3 fatty acids 1,000 mg 2,000 mg PO QAM ##0 10/15/13 09/16/24 09/16/24 09:00 capsule omeprazole 20 mg tablet,delayed 20 mg PO QAM ##0 10/15/13 09/16/24 09/16/24 09:00 release coenzyme Q10 100 mg capsule 100 mg PO QAM ##0 01/04/16 09/16/24 09/16/24 09:00 atorvastatin 40 mg tablet 40 mg PO HS ##0 04/09/17 09/16/24 09/15/24 23:00 dicyclomine 10 mg capsule 10 mg PO TID Abdominal Pain ##0 04/09/17 09/16/24 09/16/24 12:00 peg 400-propylene glycol 0.4 %-0.3 1 drp ophthalmic (eye) QID PRN Dry 05/12/19 09/16/24 09/22/21 % eye drops (Systane Ultra) Eye(S) vitamin B complex 1 tab PO QAM 09/21/20 09/16/24 09/16/24 09:00 lorazepam 0.5 mg tablet 0.5 mg PO BID Anxiety 05/24/21 09/16/24 09/16/24 12:00 metformin 750 mg tablet,extended 750 mg PO BIDM 05/24/21 09/16/24 09/16/24 18:00 release 24 hr pregabalin 150 mg capsule 150 mg PO TID 05/24/21 09/16/24 09/16/24 09:00 yfdzxio-nofnjgrsgyior-jutnamul 250 2 tab PO Q6H PRN Pain 09/24/21 09/16/24 09/23/21 mg-250 mg-65 mg tablet (Excedrin Extra Strength) hydrochlorothiazide 25 mg tablet 25 mg PO QAM 09/24/21 09/16/24 09/16/24 09:00 magnesium 250 mg tablet 250 mg PO QAM 09/24/21 09/16/2425 09:00 cyanocobalamin (vitamin B-12) 500 500 mcg PO DAILY 06/05/22 09/16/24 09/16/24 09:00 mcg tablet (Vitamin B-12) empagliflozin 10 mg tablet 10 mg PO QAM 06/05/22 09/16/24 09/16/24 09:00 (Jardiance) famotidine 10 mg tablet (Acid 10 mg PO QAM 08/31/24 09/16/24 09/16/24 09:00 Pharmacy Technician (famotidine)) insulin glargine 100 unit/mL (3 36 unit subcut QAM 08/31/24 09/16/24 09/16/24 10:00 mL) subcutaneous pen (Lantus Solostar U-100 Insulin) semaglutide 2 mg/dose (8 mg/3 mL) 2 mg subcut WK 08/31/24 09/16/24 09/13/24 09:00 subcutaneous pen injector (Ozempic) Active Medications Generic Name Dose Route Start Last Admin Trade Name Freq PRN Reason Stop Dose Admin Acetaminophen 650 mg 09/16/24 22:24 09/17/24 08:46 Acetaminophen 325 Mg Tab PO 10/16/24 22:23 650 mg Q4H PRN Administration pain/fever Atorvastatin Calcium 40 mg 09/16/24 22:24 09/17/24 20:49 Atorvastatin 40 Mg Tab PO 10/16/24 22:23 40 mg HS URI Administration Empagliflozin 10 mg 09/17/24 11:30 09/18/24 10:01 Empagliflozin 10 Mg Tab PO 10/17/24 11:29 10 mg DAILY URI Administration Enoxaparin Sodium 40 mg 09/17/24 09:00 09/18/24 10:01 Enoxaparin Inj 40 Mg/0.4 Ml Syr SQ 10/17/24 08:59 40 mg QAM URI Administration Famotidine 10 mg 09/17/24 09:00 09/18/24 10:01 Famotidine 10 Mg Tablet PO 10/17/24 08:59 10 mg QAM URI Administration Ceftriaxone Sodium 2,000 mg in 50 mls @ 100 mls/hr 09/17/24 18:00 09/17/24 20:30 Rocephin IV 09/22/24 17:59 Infused Q24H URI Infusion Insulin Aspart 0 units 09/16/24 23:30 09/18/24 12:57 Insulin Aspart Per Unit Charge SC 10/16/24 23:29 4 units ACHS URI Administration Insulin Glargine 15 units 09/17/24 09:00 09/18/24 10:02 Lantus Per Unit Charge SC 10/17/24 08:59 15 units DAILY URI Administration Insulin Glargine 0 units 09/17/24 21:00 09/17/24 21:04 Lantus Per Unit Charge SC 09/18/24 23:59 Not Given HS URI Protocol Lorazepam 0.5 mg 09/16/24 22:24 09/18/24 10:02 Lorazepam 0.5 Mg Tab PO 10/16/24 22:23 0.5 mg BID URI Administration Pantoprazole Sodium 40 mg 09/17/24 09:00 09/18/24 10:02 Pantoprazole 40 Mg Tab PO 10/17/24 08:59 40 mg QAM URI Administration Potassium Chloride 20 meq 09/17/24 13:15 09/18/24 10:02 Potassium Chloride Pwd 20 Meq Pack PO 10/17/24 13:14 20 meq QAM URI Administration Pregabalin 150 mg 09/16/24 22:24 09/18/24 13:30 Pregabalin 150 Mg Cap PO 10/16/24 22:23 150 mg TID URI Administration Trolamine Salicylate 1 appln 09/18/24 10:30 09/18/24 10:59 Trolamine Salicylate 10% Crm 255 Appln/85 Gm Tube EXT 10/18/24 10:29 1 appln Q8H URI Administration (6) Diabetes mellitus, type II Diabetes mellitus shelter insulin use: with shelter use Diabetes mellitus complication status: with neurologic complications Diabetes mellitus complication detail: with unspecified neuropathy Qualified Code(s): E11.40 - Type 2 diabetes mellitus with diabetic neuropathy, unspecified; Z79.4 - buttermaker continuous churn (current) use of insulin
[2024-09-18] MEDS: METOPROLOL SUCC 25MG EXT REL TAB PO SCH (16:16)
[2024-09-18] MEDS: DOCUSATE SODIUM 100 MG CAP PO SCH (20:44)
[2024-09-19 08:01] LABS: BUN Creatinine Ratio 26.5 (10-20); Calcium 9.6 mg/dl (8.6-10.3); Creatinine Clr Calc Pharmacy 44.2 ml/min; Magnesium 2.1 mg/dl (1.7-2.4); Phosphorus 3.2 mg/dl (2.5-4.9); Potassium 3.8 mmol/L (3.5-5.1)
[2024-09-19 08:06] LABS: Hematocrit (blood only) 34.7 % (37.0-47.0); Hemoglobin 10.1 g/dl (12.0-16.0); Mean Corpuscular Hemoglobin 22.4 pg (25.0-34.0); Mean Corpuscular Hgb Conc 29.1 g/dL (32.0-36.0); Mean Corpuscular Volume 77.1 fL (80.0-100.0); Mean Platelet Volume 11.1 fL (9.4-12.4); Platelet Count 189 K/uL (130-400); RDW Coefficient of Variation 20.6 % (11.5-14.5); RDW Standard Deviation 55.5 fL (36.4-46.3); White Blood Count 5.13 K/ul (4.8-10.8)
--- OUTSIDE RECORDS SUMMARY | 2024-09-19 08:39 | External Medical Summary | Summary of Care ---
Author Name Unknown Organization [facility] Address [address] [place] [address] Phone [phone] Care Team Providers Care Director Housekeeping Name Role Phone Case House MD Primary Care Provider [phone] Reason for Visit * Reason Comments Cough Congestion Pt is here with vinicio estions and cough since Friday. Pt states she is constipated. Encounter Details Date Type Department Care Team (Late st Contact Info) Description 09/16/2024 1:40 PM EDT Office Visit Family Practice [facility] [address] [facility] [place] [address] Corrine Gordillo PA-C [address] [facility] [place] [address] Acute cough*; SOB (shortness of breath); Type 2 diabetes mellitus with stage 3b chronic kidney disease, without long-term current use of insulin ([facility]); HTN, goal below 150/90; Hypertensive kidney disease with stage 3b chronic kidney disease (HCC); Type 2 diabetes mellitus with stage 3a chronic kidney disease, without long-term current use of insulin ([facility]); Chronic diastolic heart failure ([facility]); Type 2 diabetes mellitus with stage 3b chronic kidney disease, unspecified whether prison insulin use ([facility]) Allergies Active Allergy Reactions Criticality Noted Date Comments Ciprofloxacin 05/27/2022 tendonitis Oxycodone Other (Please comment) 01/29/2016 Mental problems, confusion Other reaction(s): SEDATION Tramadol 10/28/2023 Difficult to arouse after taking medication documented as of this encounter (statuses as of 09/17/2024) Medications COENZYME Q-10 100 MG PO CAPS [...] as directed. Freestyle Zabrina 2 supplied by [employer] Active Lidocaine 4 % External Patch (Aspercreme) Place 1 Patch over 12 hours topically on the skin daily. 30 Patch 11 04/22/20 23 Active Triamcinolone Acetonide 0.1 % External Cream (Aristocort) Apply topically to affected area 2 times a day. To affected area. 80 g 5 04/24/20 23 Active BD Pen Needle Kaci 2nd Gen [...] BREAKFAST 90 Capsule 3 09/26/19 24 Active Ozempic (2 MG/DOSE) 8 MG/3ML Subcutaneous Solution Pen-injector (Semaglutide (2 MG/DOSE))Indicati ons:Type 2 diabetes mellitus with hemoglobin A1c goal of less than 8.0% (HCC) Inject 2 mg once weekly- this replaces trulicity 9 mL 4 12/30/19 24 Active Nystatin 500092 UNIT/GM External Powder (Nystop) Apply topically to [...] 25 Active predniSONE 10 MG Oral Tablet (Deltasone)Indica tions:Right foot pain Take 5 tabs for 2 days, 4 tabs for 2 days, 3 tabs for 2 days, 2 tabs for 2 days 1 tab for 2 days 30 Tablet 07/08/19 25 Active hydroCHLOROthiazi de 25 MG Oral Tablet (Hydrodiuril) Take 1 tablet by mouth once daily 30 Tablet 5 07/19/19 25 Active Pregabalin 150 MG Oral Capsule (Lyrica) TAKE 1 CAPSULE BY MOUTH THREE TIMES DAILY 90 Capsule 08/17/19 25 Active LORazepam 0.5 MG Oral Tablet (Ativan)Indicatio ns:Anxiety state TAKE 1 TABLET BY MOUTH THREE TIMES DAILY NEEDED FOR ANXIETY 90 Tablet 09/15/19 25 Active Shingrix 50 MCG/0.5ML Intramuscular Suspension Reconstituted (Zoster Vac Recomb Adjuvanted)Indica tions:Type 2 diabetes mellitus with hemoglobin A1c goal of less than 8.0% (HCC),Need for vaccination for zoster Inject 0.5 mL into a large muscle now and repeat dose in 60 to 180 days 1 Each 1 09/26/19 24 025 Discontin ued(Medic ation List Clean Up) documented as of this encounter (statuses as of 09/17/2024) Active Problems Problem Noted Date Diagnosed Date [...] reflux disease without esophagi tis 07/12/2019 Old MA (myocardial infarction) 07/12/2019 Type 2 diabetes mellitus [...] as of this encounter (statuses as of 09/17/2024) Resolved Problems Problem Noted Date Diagnosed Date [...] as of this encounter (statuses as of 09/17/2024) Immunizations Name Administration Dates Next Due COVID-19 mRNA, LNP-s, No Pre serve, 2-Dose Series ([employer]) 10/17/2020,09/19/2020 Covid-19, Mrna, Lnp-s, Pf, B ivalent, 30 Mcg, IM, 12 yrs and above ([employer]) 06/04/2022 Pneumococcal Conjugate Vacc, 13 Valent (Prevnar) [...] Sign Reading Time Taken Comments Blood Pressure 122/54 09/16/2024 2:09 PM EDT Pulse 90 09/16/2024 3:46 PM EDT Temperature 36.9 C (98.4 F) 09/16/2024 2:09 PM ED T Respiratory Rate - - Oxygen Saturation 88% 09/16/2024 3:46 PM EDT RA Inhaled Oxygen Concentration - - Weight - - Height 160 cm (5' 3") 09/16/2024 2:09 PM EDT Body Mass Index - - documented in this encounter Progress Notes * Corrine Gordillo PA-C - 09/16/2024 2:20 PM EDT Images from the original note were not included. Subjective Thuyyudy Vargas is a 83 year old female that presents for Cough and Congestion (Pt is here with congestions and cough since Friday. Pt states she is constipated. ) Patient is an 83 year old female who presents with an illness which started on Friday. Started witha cough/productive, sob, possible wheezing, headache, Appetite diminished Sleep hard to get to sleep Took coricidin, dayquil , mucinex. Objective BP 122/54 (BP Site: Right Arm, BP Position: Sitting, BP Cuff Size: Regular) | Pulse 85 | Temp 98.4 F (36.9 C) (Tympanic) | Ht 5' 3" (1.6 m) | SpO2 100% | BMI 32.13 kg/m | BSA 1.91 m BP Readings from Last 3 Encounters: 09/16/24 122/54 07/08/24 118/60 05/25/24 136/56 Wt Readings from Last 3 Encounters: 07/08/24 181 lb 6.4 oz (82.3 kg) 05/25/24 193 lb (87.5 kg) 02/14/24 173 lb 12.8 oz (78.8 kg) General: alert, well nourished, well developed, cooperative, and mild distress Head: Normocephalic, No masses, lesions, tenderness or abnormalities Eye Exam: PERRLA, extraocular movements intact, conjunctiva are pink and non- injected, sclera clear Ears: External ears normal, Canals clear, TM's Normal Nose: no mucosal erythema, no mucosal edema, no purulent discharge Oropharynx: no exudate, no erythema, lips, buccal mucosa, and tongue normal, and mucous membranes are moist Neck: supple, no adenopathy, no bruits, thyroid normal size, non-tender, without nodularity Heart: regular rate & rhythm, no murmur, and no gallops Lungs: chest symmetric with normal AP diameter, no chest deformities noted, normal respiratory rateand rhythm, no chest wall tenderness, diaphragmatic excursion normal, lungs clear to auscultation Extremities: less than 2 second capillary refill, no joint deformities, effusion, or inflammation, no edema, no skin discoloration, no clubbing, no cyanosis Results reviewed: BMP results Recent Labs Units 09/16/24 1503 07/08/24 1248 05/25/24 1215 SODIUM - [facility] mmol/L 141 140 144 POTASSIUM - [facility] mmol/L 3.7 4.4 4.7 CHLORIDE - [facility] mmol/L 102 100 103 CO2 - [facility] mmol/L 29 24 30 CREATININE - [facility] mg/dL 1.2* 1.0 1.1* BUN - [facility] mg/dL 22* 18 22* CBC results Recent Labs Units 09/16/24 1503 04/25/23 1421 WBC K/uL 6.46 -- HGB g/dL 9.6* 11.1* HCT % 33.1* -- PLT K/uL 137* -- Assessment and Plan Acute cough (Primary) - CBC; Future; Expected date: 09/16/2024 - BASIC METABOLIC PANEL; Future; Expected date: 09/16/2024 - XR CHEST 2 VIEWS; Future; Expected date: 09/16/2024 - INFLUENZA A/B RSV SARS-COV2,PCR SOB (shortness of breath) - XR CHEST 2 VIEWS; Future; Expected date: 09/16/2024 - INFLUENZA A/B RSV SARS-COV2,PCR - BNP, NT-PRO; Future; Expected date: 09/16/2024 Type 2 diabetes mellitus with stage 3b chronic kidney disease, without long-term current use of insulin (HCC) HTN, goal below 150/90 Hypertensive kidney disease with stage 3b chronic kidney disease (HCC) Type 2 diabetes mellitus with stage 3a chronic kidney disease, without long-term current use of insulin (HCC) Chronic diastolic heart failure (HCC) Type 2 diabetes mellitus with stage 3b chronic kidney disease, unspecified whether terminal superintendent insulin use (HCC) Type 2 diabetes mellitus with stage 3b chronic kidney disease, without long-term current use of insulin (HCC) HTN, goal below 150/90 Hypertensive kidney disease with stage 3b chronic kidney disease (HCC) Wrap-Up I spent a total of 30-39 minutes (exact time 39 mins) on the date of service in preparation, delivery, and documentation of the care provided to Thuy Vargas excluding any time spent in the performance of separately billed services. documented in this encounter Nursing Notes * Tee Williamson CMA - 09/16/2024 2:07 PM EDT The patient has been properly identified by confirmation of name and date of . Chief Complaint Patient presents with Cough Congestion Pt is here with congestions and cough since Friday. Pt states she is constipated. documented in this encounter Miscellaneous Notes * Assessment & Plan Note - Corrine Gordillo PA-C - 09/16/2024 2:37 PM EDT Associated Problem(s): Type 2 diabetes mellitus with stage 3b chronic kidney disease (HCC) * Assessment & Plan Note - Corrine Gordillo PA-C - 09/16/2024 2:37 PM EDT Associated Problem(s): HTN, goal below 150/90 * Assessment & Plan Note - Corrine Gordillo PA-C - 09/16/2024 2:37 PM EDT Associated Problem(s): Hypertensive kidney disease with stage 3b chronic kidney disease (HCC) documented in this encounter Plan of Treatment Upcoming Encounters Date Type Department Care Team (Latest Contact Info) Description 09/30/2024 1:00 PM EDT Office Visit Pharmacy, Glenna Crisostomo [address] [phone] Glenna [address] [place] [address] 10/12/2024 1:40 PM EDT Office Visit Podiatry [facility] [address] [place] [phone] Danielle Burns DPM [address] [place] [address] 10/13/2024 10:23 AM EDT Hospital Encounter [facility], Operating Room [facility] [address] [place] [phone] Phi Beckwith, DO [address] [place] [phone] 10/13/2024 10:23 AM EDT - 10/13/2024 10:42 AM EDT Surgery OR [facility], Operating Room [facility] [address] [place] [phone] Phi Beckwith, DO [address] [place] [phone] INJECTION SPINE LUMBAR OR SACRAL 11/25/2024 2:20 PM EDT Office Visit Family Practice, Glenna Mckeon [address] [place] [phone] Case House MD [address] [place] [address] 12/02/2024 9:30 AM EDT Office Visit Urology Ariella Donald Mckeon [address] [place] [address] Minerva Underwood PA-C [address] [place] [phone] 09/13/2025 1:20 PM EDT Office Visit Dermatology [facility] [address] [place] [phone] Ran Millan PA-C [address] [place] [address] Pending Results Name Type Priority Associated Diagnoses Date /Time INFLUENZA A/B RSV SARS-COV2,PCR Lab Routine SOB (shortness of breath) Acute cough 09/16/2024 2:58 PM EDT Scheduled Procedures Name Priority Associated Diagnoses Date/Ti me INJECTION SPINE LUMBAR OR SACRAL Lumbar radiculopathy 10/13/2024 10:23 AM EDT Health Maintenance Due Date Last Done Comments Adult Wellness Visit 02/27/2020 02/26/2019 Depression Screening 04/25/2023 04/25/2022, 09/30/2017, 09/13/2014 (Discussed) CKD PHOS USE SMARTSET 54247 11/19/202311/04, 03/13/2021, 01/30/2021, Additional history exists Diabetic Eye Exam 01/10/2024 01/09/2023, , 12/31/2019, Additional history exists COVID-19 Vaccine ( season) 2024 06/04/2022, 05/22/2021, 10/17/2020, Additional history exists Diabetic Foot Exam 08/08/2024 08/08/2023, 1 07/16/2019, 04/08/2018, Additional history exists Albumin/Creatinine Ratio 09/04/20242 024, 08/12/2022, 04/25/2022, Additional history exists HbA1c 01/05/2025 07/08/2024, 05/07, 09/05/2023, Additional history exists GFR 03/19/2025 09/16/2024, 08/2024, 05/25/2024, Additional history exists Mammogram 05/19/2025 05/19/2024, 05/07, 03/25/2023, Additional history exists B-12 05/25/2025 05/25/2024, 12/2022, 01/30/2021, Additional history exists DXA Scan 07/23/2025 07/23/2022, 07/07, 03/17/2019, Additional history exists CKD HGB USE SMARTSET 19377 09/16/202509/16, 04/25/2023, 06/18/2022, Additional history exists DTap/Tdap [...] Not on filedocumented as of this encounter Results * XR CHEST 2 VIEWS (09/16/2024 3:39 PM EDT) Anatomical Region Laterality Modality Chest Computed Radiogr aphy 09/16/2024 3:56 PM EDT Impressions 09/16/2024 3:54 PM EDT IMPRESSION: 1. Mild subpleural reticulation consistent with chronic interstitial changes, similar to the prior CT. No focal consolidation. 2. Cardiomegaly. 3. Rightward tracheal deviation, similar to the prior CT, which was shown on the prior CT to be due to enlargement of the left thyroid lobe with substernal extension. Narrative 09/16/2024 3:54 PM EDT EXAM: EXAM: XR CHEST 2 VIEWS DATE TIME: 09/16/2024 - 09/16/2024 3:39 pm HISTORY: 83 y/o F sob, hypoxia COMPARISON: CT chest 12/27/2021. FINDINGS: Rightward tracheal deviation, similar to the prior CT, which was shown on the prior CT to be due to enlargement of the left thyroid lobe with substernal extension. Mild subpleural reticulation consistent with chronic interstitial changes, similar to the prior CT. No focal consolidation. No pleural effusion or pneumothorax. Cardiac silhouette is enlarged. Atherosclerotic changes of the aorta. Degenerative changes of the spine. Mild compression deformity of an upper lumbar vertebral body, similar to the prior CT. Procedure Note Ambika Pena MD - 09/16/2024 EXAM: EXAM: XR CHEST 2 VIEWS DATE TIME: 09/16/2024 - 09/16/2024 3:39 pm HISTORY: 83 y/o F sob, hypoxia COMPARISON: CT chest 12/27/2021. FINDINGS: Rightward tracheal deviation, similar to the prior CT, which was shown onthe prior CT to be due to enlargement of the left thyroid lobe withsubsternal extension. Mild subpleural reticulation consistent with chronic interstitial changes,similar to the prior CT. No focal consolidation. No pleural effusion or pneumothorax. Cardiac silhouette is enlarged. Atherosclerotic changes of the aorta. Degenerative changes of the spine. Mild compression deformity of an upperlumbar vertebral body, similar to the prior CT. IMPRESSION IMPRESSION: 1. Mild subpleural reticulation consistent with chronic interstitialchanges, similar to the prior CT. No focal consolidation. 2. Cardiomegaly. 3. Rightward tracheal deviation, similar to the prior CT, which was shownon the prior CT to be due to enlargement of the left thyroid lobe withsubsternal extension. us Corrine Gordillo PA-C RADIOLOGY (RAD GENERAL) Final Result * (ABNORMAL) BNP, NT-PRO (09/16/2024 3:03 PM EDT) BNP, NT-Pro 826(H) <300 pg/mL 09/16/2024 11:56 PM EDT LAB[facility]ORY [facility] Blood Venous blood specimen / Unknown Venipuncture / Unknown 09/16/2024 3:03 PM EDT 09/16/2024 3:03 PM EDT [facility] LAB[facility]ATORY [facility] - 09/16/2024 11:56 PM EDT Exclude Heart Failure: <300 pg/mL Diagnose Heart Failure: Age <50 yr: >450 pg/mL 50-75 yr: >900 pg/mL >75 yr: >1800 pg/mL GFR is 30-59 mL/min: >1200 pg/mL or Age-adjusted values GFR <30 mL/min: do not use, not reliable Prognostic threshold: 1000 pg/mL us October Duy [facility] LAB BLOOD ORDERABLES Final Res ult LABORATORY [facility] [address] [place] [address] * (ABNORMAL) BASIC METABOLIC PANEL (09/16/2024 3:03 PM EDT) Pathologist [facility] BUN 22(H) 6 - 20 mg/dL 09/16/2024 3:33 PM EDT [address] CREATININE 1.2(H) 0.5 - 1.0 mg/dL 09/16/2024 3:33 PM EDT [address] EGFR 48(L) >=60 mL/min 09/16/2024 3:33 PM EDT [facility] 56 Comment:eGFR is calculated b ased on the CKD-EPI 2020 equation. SODIUM 141 135 - 146 mmol/L 09/16/2024 3:33 PM EDT [facility] 56- POTASSIUM 3.7 3.5 - 5.1 mmol/L 09/16/2024 3:33 PM EDT [facility] 56- CHLORIDE 102 98 - 107 mmol/L 09/16/2024 3:33 PM EDT [facility] 56- CO2 29 22 - 32 mmol/L 09/16/2024 3:33 PM EDT [facility] 56- ANION GAP 10 7 - 15 mmol/L 09/16/2024 3:33 PM EDT [facility] 56 GLUCOSE 151(H) 70 - 120 mg/dL 09/16/2024 3:33 PM EDT [facility] 56 CALCIUM 9.4 8.4 - 10.2 mg/dL 09/16/2024 3:33 PM EDT [facility] 56 Blood Venous blood specimen / Unknown Venipuncture / Unknown 09/16/2024 3:03 PM EDT 09/16/2024 3:03 PM EDT us October Duy [facility] LAB BLOOD ORDERABLES Final Res ult [address] [place] [address] * (ABNORMAL) CBC (09/16/2024 3:03 PM EDT) WBC 6.46 4.00 - 10.80 K/uL 09/16/2024 3:16 PM EDT [facility] 56 RBC 4.25 3.85 - 5.15 M/uL 09/16/2024 3:16 PM EDT [address] HGB 9.6(L) 12.0 - 15.3 g/dL 09/16/2024 3:16 PM EDT [facility] 56 HCT 33.1(L) 36.0 - 45.2 % 09/16/2024 3:16 PM EDT [facility] 56 MCV 77.9 81.5 - 97.5 fL 09/16/2024 3:16 PM EDT [facility] 56 MCH 22.6 27.0 - 34.0 pg 09/16/2024 3:16 PM EDT [facility] 56 MCHC 29.0 32.0 - 36.0 g/dL 09/16/2024 3:16 PM EDT [facility] 56 RDW 21.3 11.5 - 15.5 % 09/16/2024 3:16 PM EDT [facility] 56 PLT 137(L) 140 - 400 K/uL 09/16/2024 3:16 PM EDT [facility] 56 MPV 10.3 6.6 - 11.1 fL 09/16/2024 3:16 PM EDT [facility] 56- Blood Venous blood specimen / Unknown Venipuncture / Unknown 09/16/2024 3:03 PM EDT 09/16/2024 3:03 PM EDT us October A Duy [facility] LAB BLOOD ORDERABLES Final Res ult [facility] [address]- [address] [place] [address] documented in this encounter Visit Diagnoses Diagnosis Acute cough- Primary SOB (shortness of breath) Shortness of breath Type 2 diabetes mellitus with stage 3b chronic kidney disease, unspecified whether prison insulin use (HCC) HTN, goal below 150/90 Hypertensive kidney disease with stage 3b chronic kidney disease (HCC) Type 2 diabetes mellitus with stage 3a chronic kidney disease, without long-term current use of insulin (HCC) Chronic diastolic heart failure (HCC) Chronic diastolic heart failure SOB (shortness of breath) Shortness of breath Acute cough Lumbar radiculopathy Thoracic or lumbosacral neuritis or [...] were consensually agreed upon. Care Teams Director Housekeeping Relationship Specialty Start Date End Date Case House MD [address] [place] [id number] PCP - General Family Medicine 07/08/24 documented as of this encounter
--- OUTSIDE RECORDS SUMMARY | 2024-09-19 08:39 | External Medical Summary ---
Author Name Unknown Address Unknown Organization [id number]:LAB[facility]ATORY [facility] [place] [address] [facility] [address] Laboratory Report Ordering Provider Test Date Status 09/16/2024 14:58:23 Final Observation Date Value Abnormality Reference (Units ) Status SARS Coronavirus 2 09/16/2024 14:58:23 Positive Abnormal N egative Final SARS-CoV2 Coronavirus RNA de tected by PCR (amplified probe). Test results reported to [facility].
This automated test was developed and its performance characteristics determined by [facility]. It has not been cleared or approved by the U.S. Food and Drug Administration (FDA). FDA does not require this test to go thru premarket FDA review. This test is used for clinical purposes. It should not be regarded as investigational or for research. This laboratory is certified under the Clinical Laboratory Improvement Amendments (CLIA) as qualified to perform high complexity clinical laboratory testing.

This test is a nucleic acid amplification test (NAAT), a reverse transcriptase polymerase chain reaction (RT-PCR) test, or a Centers for Disease Control- acceptable equivalent. The test is performed in a high complexity Clinical Laboratory Improvement Amendments-(CLIA) certified laboratory. The test is acceptable for SARS-CoV-2 diagnosis, surveillance, and travel within the [place] and to most countries. Please check with local testing authorities about requirements before travel.

The validation of bronchial specimens, tracheal aspirates, and sputum for this assay was developed and performance characteristics determined by [facility]. The validation of alternate specimen types has not been cleared or approved by the U.S. Food and Drug Administration (FDA). It has been determined that such clearance or approval is not necessary. Influenza virus A RNA [Prese nce] in Specimen by CHRISTINA with probe detection 09/16/2024 14:58:23 Negative Negative Final No Influenza A RNA detected by PCR (amplified probe) Influenza virus B RNA [Prese nce] in Specimen by CHRISTINA with probe detection 09/16/2024 14:58:23 Negative Negative Final No Influenza B RNA detected by PCR (amplified probe) Respiratory syncytial virus RNA [Identifier] in Specimen by CHRISTINA with probe detection 09/16/2024 14:58:23 Negative Negative Final No Respiratory Syncytial Vir us RNA detected by PCR (amplified probe) Performing Location LABORATORY [place] [address] [facility] [address]
--- OUTSIDE RECORDS SUMMARY | 2024-09-19 08:39 | External Medical Summary ---
Author Name Unknown Address Unknown Organization [id number]:[facility] [place] [facility] [address] [place] [id number] Laboratory Report Ordering Provider Test Date Status 09/16/2024 15:03:35 Final Exclude Heart Failure: <300 pg/mL
Diagnose Heart Failure:
Age <50 yr: >450 pg/mL
50-75 yr: >900 pg/mL
>75 yr: >1800 pg/mL
GFR is 30-59 mL/min: >1200 pg/mL or Age- adjusted values
GFR <30 mL/min: do not use, not reliable

Prognostic threshold: 1000 pg/mL Observation Date Value Abnormality Reference (Units ) Status BNP, Pro-hormone 09/16/2024 15:03:35 826 Above high no rmal <300 (pg/mL) Final Performing Location [facility] [place] [facility] [address] [place] [id number]
[2024-09-19] MEDS: hydroCHLOROthiazide 25 MG TAB PO SCH (09:32)
[2024-09-19] MEDS: LANTUS PER UNIT CHARGE SC SCH (09:33)
[2024-09-19 11:16] VITALS: PULSE 93; RESP 20; TEMP 97.9; O2SAT 98
[2024-09-19 14:31] VITALS: BP 115/62
--- NOTE | 2024-09-19 16:54 | Discharge Summary ---
Discharge Summary Date of Service September 19, 2024 Principal Dx & Hospital Course #1 = Principal Diagnosis (1) Acute hypoxic respiratory failure: (2) Respiratory acidosis: (3) Diastolic dysfunction: (4) Ambulatory dysfunction: (5) COVID: (6) Diabetes mellitus, type II: Plan Ms. Vargas is an 83 y/o female with DM2, prior NSTEMI, chronic HFpEF, HTN, hyperlipidemia, CKD3, prior left jugular vein thrombosis, dementia, GERD who presents from outpatient clinic for noted hypoxia into 80s and admitted for acute hypoxic respiratory failure iso COVID infection. Patient ultimately noted to not necessarily be symptomatic from COVID and imaging review notes fibrosis/scarring of lungs suggesting hypoxia more chronic. Steroids were avoided given risk of delirium and lack of symptoms, same reason for discontinuation of remdesivir. Patient reports feeling at baseline overall and noted to require 2L continuous. Patient had large bowel movement on day of discharge and reports feeling at baseline. confirmed. #Constipation KUB with large stool burden lactulose x 1 #Acute hypoxic respiratory failure: #COVID Infection -2/2 COVID and perhaps underlying lung disease CTA negative for pulm emboli -patient familiar to this provider, saturates around 90% at baseline, does not ambulate at baseline (very minimally) Recent admission end of 08/31 with hypoxia noted, goal to maintain >88% -Discontinue with remdesevir given mild disease and no radiographic evidence of COVID infection However, pulm edema noted, though bnp 83, will trial low dose lasix Noctural oximetry noted hypoxia, witll need night time o2 2 step ordered for home o2: 2L continuous prescrived #Nephrolithiasis Patient with history of calcium oxalate stones. She had lithotripsy in 2019. Hx of elevated calcium-She knows to avoidvitamin-D andcalcium supplement and Vitamin-C as well. She knows to keep well hydrated.She is unable to do urorisk profile. Cont with HTCZ 25 mg, followed by nephrology #Sinus tachycardia previously on coreg will start low dose metoprolol as bp control less necessary and mroe for HR stabilization given pacs/pvc #acute cystitis continue ctx #Acute heart failure with preserved EF -patient appears dry on exam x 1 Lasix 10mg IV #Ambulatory dysfunction: -only pivots at baseline -patient would be interested in home PT/OT but not SNF Plan: -PT/OT: op therapy script to be provided #Thyroid goiter CTA noted Enlarged, multinodular left thyroid goiter with retrosternal extension, stable from prior. OP follow up #Diabetes mellitus, type II: -continue home lantus Notes For Next Care Provider Medication Changes From Visit Metoprolol XL 12.5mg started iuso PACs/PVCs and sinus tach Admission HPI Per Admitting Provider 83 y/o female with DM2, hx NSTEMI, chronic HFpEF, HTN, hyperlipidemia, CKD3, prior left jugular vein thrombosis, dementia, GERD who presents from outpatient clinic for noted hypoxia into 80s. Patient states she has been feeling a little lower energy than normal with some weakness but otherwise fine. She has not felt SOB whatsoever over the past few days or weeks. Per , patient usually sits in low 90s at baseline, and perhaps lower than this. Denies chest pain or other symptoms. No tobacco use, no alcohol use, no drug use, discussed resuscitation with patient, risks and benefits explained, patient states that she would not want aggressive measures taken at end of life, does not want chest compressions or intubation. Patient DNRDNI. Admission Exam Per Admitting Provider CONSTITUTIONAL: Patient denies fevers, chills, sweats and weight changes. EYES: Patient denies any visual symptoms. EARS, NOSE, AND THROAT: No difficulties with hearing. No symptoms of rhinitis or sore throat. CARDIOVASCULAR: Patient denies chest pains, palpitations, orthopnea and paroxysmal nocturnal dyspnea. RESPIRATORY: No dyspnea on exertion, no wheezing or cough. GI: No nausea, vomiting, diarrhea, constipation, abdominal pain, hematochezia or melena. : No urinary hesitancy or dribbling. No nocturia or urinary frequency. No abnormal urethral discharge. MUSCULOSKELETAL: No myalgias or arthralgias. NEUROLOGIC: No chronic headaches, no seizures. Patient denies numbness, tingling or weakness. PSYCHIATRIC: Patient denies problems with mood disturbance. No problems with anx iety. ENDOCRINE: No excessive urination or excessive thirst. DERMATOLOGIC: Patient denies any rashes or skin changes. Discharge Exam Constitutional WD/WN, vitals as above Respiratory normal respiratory effort, lungs clear to auscultation Cardiovascular RRR, no murmur, no edema Gastrointestinal (Abdomen) normal bowel sounds, soft, nontender, no hepatosplenomegaly Updated Medication List Medication Instructions Recorded Confirmed Type omega-3 fatty acids 1,000 mg 2,000 mg PO QAM ##0 10/15/13 09/16/24 History capsule omeprazole 20 mg tablet,delayed 20 mg PO QAM ##0 10/15/13 09/16/24 History release coenzyme Q10 100 mg capsule 100 mg PO QAM ##0 01/04/16 09/16/24 History atorvastatin 40 mg tablet 40 mg PO HS ##0 04/09/17 09/16/24 History dicyclomine 10 mg capsule 10 mg PO TID Abdominal Pain ##0 04/09/17 09/16/24 History peg 400-propylene glycol 0.4 %-0.3 1 drp ophthalmic (eye) QID PRN Dry 05/12/19 09/16/24 History % eye drops (Systane Ultra) Eye(S) vitamin B complex 1 tab PO QAM 09/21/20 09/16/24 History lorazepam 0.5 mg tablet 0.5 mg PO BID Anxiety 05/24/21 09/16/24 History metformin 750 mg tablet,extended 750 mg PO BIDM 05/24/21 09/16/24 History release 24 hr pregabalin 150 mg capsule 150 mg PO TID 05/24/21 09/16/24 History kjjuney-sfwmqapeaohlq-srwidhxa 250 2 tab PO Q6H PRN Pain 09/24/21 09/16/24 History mg-250 mg-65 mg tablet (Excedrin Extra Strength) hydrochlorothiazide 25 mg tablet 25 mg PO QAM 09/24/21 09/16/24 History magnesium 250 mg tablet 250 mg PO QAM 09/24/21 09/16/24 History cyanocobalamin (vitamin B-12) 500 500 mcg PO DAILY 06/05/22 09/16/24 History mcg tablet (Vitamin B-12) empagliflozin 10 mg tablet 10 mg PO QAM 06/05/22 09/16/24 History (Jardiance) famotidine 10 mg tablet (Acid 10 mg PO QAM 08/31/24 09/16/24 History Printing Machine Mechanic (famotidine)) insulin glargine 100 unit/mL (3 36 unit subcut QAM 08/31/24 09/16/24 History mL) subcutaneous pen (Lantus Solostar U-100 Insulin) semaglutide 2 mg/dose (8 mg/3 mL) 2 mg subcut WK 08/31/24 09/16/24 History subcutaneous pen injector (Ozempic) metoprolol succinate 25 mg 12.5 mg (1/2 x 25 mg) PO QAM 30 09/19/24 Rx tablet,extended release 24 hr days #15 tabs Hospital Stay Data Consultations 09/16/24 18:31 ED Decision to Admit Stat Diagnostic Imagining Performed 09/16/24 21:58 CT angio chest PE protocol Stat Pending Results Patient Have Any Pending Studies at Discharge: No Discharge Instructions Given to Patient (Per Discharging Provider) You were admitted for low blood oxygen, or hypoxia. You were also noted to have COVID infection, however, relatively asymptomatic. Your chest imaging revealed scarring of the lungs, which likely explains your low oxygen levels. You were noted to need oxygen continuously, including bedtime. You were also noted to have fast heart rates and were started on a low dose medicine call Metoprolol XL 12.5mg daily Continue your current water pill and discuss with nephrology any changes that may be necessary Total Time Total Time Spent Total Time Spent (In Minutes): 35
== END 2024-09-19 15:33 | disposition home health service (06) ==
LOC: ED 16:44 → EDINP 16:44 → SUATTDRO 20:14 → EDINP 22:25 → 2N 09-17 01:09

== ENCOUNTER 2025-01-03 08:33 | Inpatient (IN) ==
--- NOTE | 2025-01-03 08:54 | Emergency Department Note ---
Impression & Plan Weakness, Fall, Hypomagnesemia, Diarrhea ED Provider Note NAME: SHIRLEY TREVIZO AGE: 84 SEX: F : 1940 ARRIVES VIA: Ambulance INFORMANT: [Patient][EMS] ED PROVIDER(S): [Jerry Nuno MD] CHIEF COMPLAINT: Fall HISTORY OF PRESENT ILLNESS: Patient is an 84-year-old female who presents to the ER after a fall on her buttock this morning. She was trying to get to the bedside toilet and she states that both legs got weak and gave out. The patient states that she started a prep for her colonoscopy last evening. She has not had much to eat or drink. As per the nursing staff, when the patient arrived, she had diarrhea that required clean up. The patient denies any pain or injury from the fall. She has not had cough or cold or congestion. She has been in baseline health. No urinary complaints. No vomiting. The patient states that both legs felt weak, this was not a 1 sided weakness. Of note, she is not on blood thinning agents. PMHx/PSHx/Social Hx: See Below PHYSICAL EXAM: GENERAL: Patient is in no acute distress. HEENT: No acute trauma, normocephalic atraumatic, mucous membranes dry, no nasal congestion. NECK: No stridor, no adenopathy, no meningismus, trachea is midline. LUNGS: Diminished breath sounds with some crackles bilaterally, no wheezing or respiratory distress. HEART: Very mildly tachycardic, regular rhythm, no murmurs. ABDOMEN: Soft, nontender, no peritonitis. EXTREMITIES: No cyanosis, full range of motion of all the joints without pain or difficulty. Mild bilateral pedal edema. NEUROLOGIC: Awake and alert, moves all extremities well. Excellent historian. SKIN: No jaundice, no diaphoresis. DIFFERENTIAL DIAGNOSIS: Dehydration, electrolyte imbalance, anemia, CA, UTI, stroke, among others. EMERGENCY DEPARTMENT PROCEDURES: MEDICAL DECISION MAKING: There is no leukocytosis or concerning anemia. There is a normal platelet count. No bandemia. Magnesium was low at 1.5, no renal failure. There were some liver enzyme elevations however, the bilirubin was not elevated. The patient appeared to be in a euthyroid state. ECG showed a sinus rhythm, no ST elevation, no dysrhythmia. Cardiac enzyme testing x 1 is not consistent with acute cardiac injury. Urinalysis showed potential infection however, in the past, despite positive UA findings, the patient's urine culture has not really grown any bacteria. As the patient has no urinary symptoms, I am not going to administer antibiotics. Brain CT showed no acute bleed or mass effect. On exam, the patient had no focal neurologic findings. She was not febrile or toxic. The patient did receive IV saline, 500 cc. She was given IV magnesium. The patient has become weak from her colonoscopy prep. She took a fall this morning. I do not think she is safe for discharge to continue the prep. I spoke with GI, the patient is to be hospitalized and will have her prep done inpatient. She can then have her studies tomorrow through GI. I spoke with case management, I spoke with the patient and , the on-call hospitalist was consulted. Prior/Outside records/notes reviewed: Today's EMS notes describing her presentation and transport to this hospital. ECG per my interpretation: Indication was weakness. ECG shows a sinus rhythm with some PACs. The rate is 97. There is some artifact present. There is an old inferior infarct. There is poor R wave progression. No PVCs. No ST elevation. QTc is 515. Continuous Cardiac Monitoring per my interpretation: An order was placed for continuous cardiac monitoring. The monitor shows a rate of 95 with normal sinus rhythm. Imaging/x-ray results per my interpretation: Chest x-ray shows some chronic lung changes, no obvious focal infiltrate, no CHF. The x-ray looks similar to previous films. Chronic Medical/Social conditions affecting care: Advanced age. Care/Management discussed with: On-call GI here at [facility]. Case management and the on-call hospitalist. Level of care consideration(s): After review of the information above and other included data: --I believe the patient requires escalation of care to admission DISPOSITION: Admission Past Med/Surg History Problem List (Updated 01/03/25 @ 17:02 by Jerry Nuno MD) Diarrhea (Acute) Hypomagnesemia (Acute) Fall (Acute) Weakness (Acute) Respiratory acidosis COVID Hypoxia (Acute) Pneumonia (Acute) COVID-19 (Acute) Symptomatic anemia (Acute) Urinary tract infection (Acute) Acute hypoxic respiratory failure Gross hematuria (Acute) LVH (left ventricular hypertrophy) CAD (coronary artery disease) (Chronic) Diastolic dysfunction (Chronic) Dementia Ambulatory dysfunction (Acute) Iron deficiency anemia (Acute) Diabetes mellitus, type II (Chronic) Dyslipidemia (Chronic) CKD (chronic kidney disease), stage III (Chronic) Hypertension (Chronic) GERD (gastroesophageal reflux disease) (Chronic) Medical History History of melena Non-ST elevation CA (NSTEMI) Fracture of distal end of fibula Kidney stones History of CA (myocardial infarction) Osteoarthritis Dry eye syndrome Anxiety Peripheral neuropathy Surgical History Hx of colonoscopy with polypectomy History of hysterectomy History of carpal tunnel release left History of discectomy LUMBAR (TOTAL 2 LUMBAR DISCECTOMY) History of appendectomy History of tooth extraction Hx of eye surgery LASER PROCEDURE History of cataract surgery RT/LEFT S/P cystoscopy with ureteral stent placement 05/13/19 [facility] Family History Brother Family history of diabetes mellitus Other Cancer Heart disease Kidney disease Social History Smoking Status: Former smoker Tobacco Type: Cigarettes Second Hand Exposure: No; Do You Dip or Chew Tobacco: No; Hx Alcohol Use: No Hx Substance Use: No Preferred Language: Malagasy Communication Ability: Effective Visual Impairment: No Limitations Hearing Ability: Normal 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 Required: No Beliefs That Will Affect Care: None marital status: Current Living Situation: Spouse current occupational status: retired Other Information That Helps Us Care for You: No Feels Safe at Home: Yes Safety Concerns: Feels Safe At This Time Diet: diabetic caffeine: Yes during the past year weight has: remained stable Physical Activity Frequency: Does not Exercise Seatbelt Use: always Do you think of yourself as: straight/heterosexual Gender Identity: Female Assistive Devices: Denture - Upper, Denture - Lower, Walker and Wheelchair Allergies Allergies Allergy/AdvReac Type Severity Reaction Status Date / Time COVID-19 vacc, bv (Orig, AdvReac Intermediate Verified 01/03/25 11:11 Omicron BA.4/5) (Pfizer) [From Pfizer COVID Bival(12y up)(PF)] oxycodone AdvReac Intermediate OVER Verified 01/03/25 11:11 SEDATED Home Meds Home Medications Medication Instructions Recorded Confirmed omega-3 fatty acids 1,000 mg 2,000 mg PO QAM ##0 10/15/13 01/03/25 capsule omeprazole 20 mg tablet,delayed 20 mg PO DAILYBB ##0 10/15/13 01/03/25 release coenzyme Q10 100 mg capsule 100 mg PO QAM ##0 01/04/16 01/03/25 atorvastatin 40 mg tablet 40 mg PO HS ##0 04/09/17 01/03/25 dicyclomine 10 mg capsule 10 mg PO TID Abdominal Pain ##0 04/09/17 01/03/25 vitamin B complex 1 tab PO QAM 09/21/20 01/03/25 lorazepam 0.5 mg tablet 0.5 mg PO TID PRN Anxiety 05/24/21 01/03/25 metformin 750 mg tablet,extended 750 mg PO AMHS 05/24/21 01/03/25 release 24 hr pregabalin 150 mg capsule 150 mg PO TID 05/24/21 01/03/25 lqxrgky-ifcpfnyyxukmr-kzmzijfw 250 1 tab PO Q6H PRN Pain 09/24/21 01/03/25 mg-250 mg-65 mg tablet (Excedrin Extra Strength) hydrochlorothiazide 25 mg tablet 25 mg PO QAM 09/24/21 01/03/25 magnesium 250 mg tablet 250 mg PO QAM 09/24/21 01/03/25 cyanocobalamin (vitamin B-12) 500 500 mcg PO DAILY 06/05/22 01/03/25 mcg tablet (Vitamin B-12) empagliflozin 10 mg tablet 10 mg PO QAM 06/05/22 01/03/25 (Jardiance) insulin glargine 100 unit/mL (3 36 unit subcut QAM 08/31/24 01/03/25 mL) subcutaneous pen (Lantus Solostar U-100 Insulin) semaglutide 2 mg/dose (8 mg/3 mL) 2 mg subcut WK 08/31/24 01/03/25 subcutaneous pen injector (Ozempic) methimazole 10 mg tablet 10 mg PO QAM 12/01/24 01/03/25 mirabegron 25 mg tablet,extended 25 mg PO QAM 12/01/24 01/03/25 release 24 hr (Myrbetriq) valerian root 500 mg capsule 500 mg PO HS 01/03/25 01/03/25 Results & Data (ED) Vital Signs Vital Signs - 24 hr 01/03/25 08:43 01/03/25 08:43 01/03/25 09:18 Temperature 37.4 C 37.4 C Temperature Source Oral Oral Pulse Rate 100 H 94 H Pulse Rate [Apical] 100 H Pulse Rhythm [Apical] Regular Pulse Strength [Apical] Normal Respiratory Rate 17 17 Respiratory Effort / Characteristics Non-Labored Spontaneous Non-Labored Spontaneous Respiratory Depth Normal Normal Respiratory Pattern Regular Blood Pressure 119/59 L Blood Pressure [Left Arm] 119/59 L Blood Pressure Mean 79 Blood Pressure Mean [Left Arm] 79 Blood Pressure Position Sitting Blood Pressure Position [Left Arm] Sitting Pulse Oximetry 92 92 Oxygen Delivery Method Room Air Room Air Oxygen Flow Rate Sepsis Recent Fever Within 48 Hours No Sepsis New/Unexplained Change in Mental Status N/A Sepsis Action Taken by Nursing No Action Required 01/03/25 09:21 01/03/25 09:39 01/03/25 10:00 Temperature Temperature Source Pulse Rate 95 H Pulse Rate [Apical] 86 82 Pulse Rhythm [Apical] Regular Regular Pulse Strength [Apical] Normal Respiratory Rate 19 19 20 Respiratory Effort / Characteristics Non-Labored Spontaneous Non-Labored Spontaneous Respiratory Depth Normal Normal Respiratory Pattern Blood Pressure Blood Pressure [Left Arm] 105/69 Blood Pressure Mean Blood Pressure Mean [Left Arm] 81 Blood Pressure Position Blood Pressure Position [Left Arm] Semi-fowlers Pulse Oximetry 90 89 L 99 Oxygen Delivery Method Room Air Room Air Nasal Cannula Oxygen Flow Rate 2 Sepsis Recent Fever Within 48 Hours Sepsis New/Unexplained Change in Mental Status Sepsis Action Taken by Nursing 01/03/25 12:00 Temperature Temperature Source Pulse Rate Pulse Rate [Apical] 83 Pulse Rhythm [Apical] Pulse Strength [Apical] Respiratory Rate 19 Respiratory Effort / Characteristics Non-Labored Spontaneous Respiratory Depth Normal Respiratory Pattern Blood Pressure Blood Pressure [Left Arm] 110/72 Blood Pressure Mean Blood Pressure Mean [Left Arm] 84 Blood Pressure Position Blood Pressure Position [Left Arm] Semi-fowlers Pulse Oximetry 98 Oxygen Delivery Method Room Air Oxygen Flow Rate Sepsis Recent Fever Within 48 Hours Sepsis New/Unexplained Change in Mental Status Sepsis Action Taken by [facility] Medications Current Medication List: was personally reviewed by me Laboratory Data Attestation: I reviewed the patient's lab results. 01/03/25 09:00 01/03/25 09:00 Lab Results 01/03/25 01/03/25 Range/Units 08:59 09:00 WBC 7.19 (4.8-10.8) K/ul RBC 4.77 (4.20-5.40) M/uL Hgb 12.1 (12.0-16.0) g/dl Hct 38.6 (37.0-47.0) % MCV 80.9 (80.0-100.0) fL MCH 25.4 (25.0-34.0) pg MCHC 31.3 L (32.0-36.0) g/dL RDW Std Deviation 53.8 H (36.4-46.3) fL RDW Coeff of Pia 18.4 H (11.5-14.5) % Plt Count 170 (130-400) K/uL MPV 10.2 (9.4-12.4) fL Immature Gran % (Auto) 0.3 % Neut % (Auto) 74.7 % Lymph % (Auto) 12.8 % [place] % (Auto) 10.0 % Eos % (Auto) 1.8 % Baso % (Auto) 0.4 % Neut # (Auto) 5.37 (1.40-6.50) K/uL Lymph # (Auto) 0.92 L (1.20-3.40) K/uL [place] # (Auto) 0.72 H (0.11-0.59) K/uL Eos # (Auto) 0.13 (0.00-0.50) K/uL Baso # (Auto) 0.03 (0.00-0.20) K/uL Immature Gran # (Auto) 0.02 (0.01-0.20) K/uL Sodium 135 L (136-145) mmol/L Potassium 4.0 (3.5-5.1) mmol/L Chloride 94 L (98-107) mmol/L Carbon Dioxide 34 H (21-32) mmol/L Anion Gap 7 (3-11) BUN 11 (6-23) mg/dl Creatinine 0.83 (0.6-1.2) mg/dl Est Cr Clr Drug Dosing 53.7 ml/min eGFR 69.90 BUN/Creatinine Ratio 13.3 (10-20) Glucose 207 H (70-99(Fasting)) mg/dl Calcium 9.5 (8.6-10.3) mg/dl Magnesium 1.5 L (1.7-2.4) mg/dl Total Bilirubin 1.0 (0.2-1.0) mg/dl AST 81 H (13-39) U/L ALT 69 H (7-52) U/L Alkaline Phosphatase 108 H (34-104) U/L Troponin I High Sens 12.9 (0-14) pg/ml Total Protein 7.3 (6.0-8.3) gm/dl Albumin 3.6 (3.4-5.0) gm/dl Globulin 3.7 (2.5-4.0) gm/dl Albumin/Globulin Ratio 1.0 (0.9-2) TSH 1.183 (0.300-4.500) uIu/ml Urine Color Yellow Urine Appearance Clear (Clear) Urine pH 7.0 (4.5-7.5) Ur Specific [place] 1.008 (1.000-1.030) Urine Protein 1+ H (Negative) Urine Glucose (UA) Negative (Negative) Urine Ketones Negative (Negative) Urine Blood Negative (Negative) Urine Nitrite Negative (Negative) Urine Bilirubin Negative (Negative) Urine Urobilinogen Negative (Negative) Ur Leukocyte Esterase 3+ H (Negative) Urine WBC (Auto) 21-50 H (0-5) /hpf Urine RBC (Auto) 0-2 (0-2) /hpf U Hyaline Cast (Auto) 0-2 (0-2) /lpf U Epithel Cells (Auto) 0-2 (0-2) /hpf Urine Bacteria (Auto) None Seen (None Seen) Urine Comment Administered Medications Dicyclomine HCl (Dicyclomine Hcl 10 Mg Cap) 10 mg PO TID [facility] Stop: 02/02/25 14:12 Last Admin: 01/03/25 15:42 Dose: Not Given Documented By: BRET Pregabalin (Pregabalin 150 Mg Cap) 150 mg PO TID [facility] Stop: 02/02/25 14:12 Last Admin: 01/03/25 15:37 Dose: 150 mg Documented By: BRET Discontinued Medications Sodium Chloride (Nss) 500 mls @ 999 mls/hr IV .Q31M [facility] Stop: 01/03/25 09:30 Last Infusion: 01/03/25 10:11 Dose: Infused Documented By: Admin: 01/03/25 09:19 Dose: 999 mls/hr Documented By: VIK Magnesium Sulfate/Dextrose (Magnesium Sulfate / D5w) 1 gm in 100 mls @ 100 mls/hr IV NOW STA Stop: 01/03/25 10:59 Last Infusion: 01/03/25 11:40 Dose: Infused Documented By: Admin: 01/03/25 10:11 Dose: 100 mls/hr Documented By: VIK Magnesium Sulfate/Dextrose (Magnesium Sulfate / D5w) 1 gm in 100 mls @ 50 mls/hr IV ONE ONE Stop: 01/03/25 14:33 Last Infusion: 01/03/25 16:30 Dose: Infused Documented By: Admin: 01/03/25 14:23 Dose: 50 mls/hr Documented By: BRET Imaging Data Radiologist's Impression: Chest X-Ray 01/03/25 08:50 XR chest 1V portable CLINICAL HISTORY: weakness COMPARISON STUDY: 09/16/2024 FINDINGS: Stable cardiomegaly with mild pulmonary vascular congestion. Stable mild stranding in the lung bases. No pleural effusion or pneumothorax seen. IMPRESSION: 1. Stable mild CHF. 2. Stable mild stranding in the lung bases, likely atelectasis. ACT 112: Negative or not required by law. Electronically signed by: Lawrence Robbins M.D. 01/03/2025 9:[address] 01/03/25 08:50 CT SCAN OF THE BRAIN WITHOUT IV CONTRAST CLINICAL HISTORY: Fall. COMPARISON STUDY: MRI of the brain May 24, 2021. Head CT December 01, 2024. TECHNIQUE: Unenhanced axial CT scan of the brain was performed from the vertex to the skull base. A dose lowering technique was utilized adhering to the principles of ALARA. CT DOSE: 703.85 mGy.cm FINDINGS: Brain parenchyma: No acute intracranial hemorrhage, midline shift or mass effect is present. Aldrich-white matter differentiation is preserved. There are no extra- axial fluid collections. There are no findings to suggest acute dural sinus thrombosis or acute territorial infarct. Bilateral basal ganglia and cerebellar calcifications are unchanged. White matter hypodensities are unchanged and favor small vessel disease. Ventricles, sulci, cisterns: There is no hydrocephalus. The basal cisterns are patent. Calvarium: Unremarkable. Sinuses and mastoids: The visualized paranasal sinuses are clear. The mastoid air cells are well pneumatized. Orbits: The bony orbits are grossly intact. IMPRESSION: 1. No acute intracranial findings. No change in appearance of the brain. 2. No calvarial fractures. ACT 112: Negative or not required by law. Electronically signed by: Luis Alberto Blankenship M.D. 01/03/2025 9:21 AM Discharge Plan Visit Data Chief Complaint: Fall Stated Complaint: LEG WEAKNESS, FALL, TINGLING TOES ED Provider: Jerry Nuno Discharge Problem: Weakness, Fall, Hypomagnesemia, Diarrhea Patient Disposition: Admitted As Inpatient Condition: Fair Discharge Instructions Interventions: ED Discharge Assessment Last Done: 01/03/25 13:10 Discharge Problem: Fall Qualifiers: Encounter type: initial encounter Qualified Code(s): W19.XXXA - Unspecified fall, initial encounter Diarrhea Qualifiers: Diarrhea type: unspecified type Qualified Code(s): R19.7 - Diarrhea, unspecified
[2025-01-03] MEDS: SODIUM CHLORIDE 0.9% 500 ML IV SCH (09:19)
--- NOTE | 2025-01-03 09:23 | CT Scan Report ---
CT SCAN OF THE BRAIN WITHOUT IV CONTRAST CLINICAL HISTORY: Fall. COMPARISON STUDY: MRI of the brain May 24, 2021. Head CT December 01, 2024. TECHNIQUE: Unenhanced axial CT scan of the brain was performed from the vertex to the skull base. A dose lowering technique was utilized adhering to the principles of ALARA. CT DOSE: 703.85 mGy.cm FINDINGS: Brain parenchyma: No acute intracranial hemorrhage, midline shift or mass effect is present. Aldrich-whi te matter differentiation is preserved. There are no extra-axial fluid collections. There are no find ings to suggest acute dural sinus thrombosis or acute territorial infarct. Bilateral basal ganglia an d cerebellar calcifications are unchanged. White matter hypodensities are unchanged and favor small v essel disease. Ventricles, sulci, cisterns: There is no hydrocephalus. The basal cisterns are patent. Calvarium: Unremarkable. Sinuses and mastoids: The visualized paranasal sinuses are clear. The mastoid air cells are well pneu matized. Orbits: The bony orbits are grossly intact. IMPRESSION: 1. No acute intracranial findings. No change in appearance of the brain. 2. No calvarial fractures. ACT 112: Negative or not required by law. Electronically signed by: Luis Alberto Blankenship M.D. 01/03/2025 9:21 AM
--- NOTE | 2025-01-03 09:24 | XRay Report ---
XR chest 1V portable CLINICAL HISTORY: weakness COMPARISON STUDY: 09/16/2024 FINDINGS: Stable cardiomegaly with mild pulmonary vascular congestion. Stable mild stranding in the l ami bases. No pleural effusion or pneumothorax seen. IMPRESSION: 1. Stable mild CHF. 2. Stable mild stranding in the lung bases, likely atelectasis. ACT 112: Negative or not required by law. Electronically signed by: Lawrence Robbins M.D. 01/03/2025 9:23 AM
[2025-01-03 09:25] LABS: Appearance Urine Clear (Clear); Bacteria Urine Automated None Seen (None Seen); Cast Urine Automated 0-2 /lpf (0-2); Epithelial Cell Urine Auto 0-2 /hpf (0-2); Glucose Urine UA Negative (Negative); RBC Urine Automated 0-2 /hpf (0-2); WBC Urine Automated 21-50 /hpf (0-5)
[2025-01-03 09:28] LABS: Hematocrit (blood only) 38.6 % (37.0-47.0); Hemoglobin 12.1 g/dl (12.0-16.0); Immature Granulocytes # (auto) 0.02 K/uL (0.01-0.20); Immature Granulocytes % (auto) 0.3 %; Mean Corpuscular Hemoglobin 25.4 pg (25.0-34.0); Mean Corpuscular Volume 80.9 fL (80.0-100.0); Platelet Count 170 K/uL (130-400); RDW Standard Deviation 53.8 fL (36.4-46.3); Red Blood Count 4.77 M/uL (4.20-5.40); White Blood Count 7.19 K/ul (4.8-10.8)
[2025-01-03 09:46] LABS: Alanine Aminotransferase 69.0 U/L (7-52); Albumin Globulin Ratio 1.0 (0.9-2); Alkaline Phosphatase 108.0 U/L (34-104); Anion Gap 7.0 (3-11); Bilirubin,Total 1.0 mg/dl (0.2-1.0); Blood Urea Nitrogen 11.0 mg/dl (6-23); Calcium 9.5 mg/dl (8.6-10.3); Carbon Dioxide 34.0 mmol/L (21-32); Chloride 94.0 mmol/L (98-107); Creatinine Clr Calc Pharmacy 53.7 ml/min; Globulin 3.7 gm/dl (2.5-4.0); Glucose 207.0 mg/dl (70-99(Fasting)); Magnesium 1.5 mg/dl (1.7-2.4); Potassium 4.0 mmol/L (3.5-5.1); Sodium 135.0 mmol/L (136-145); Total Protein 7.3 gm/dl (6.0-8.3)
[2025-01-03 10:01] LABS: Thyroid Stimulating Hormone 1.183 uIu/ml (0.300-4.500)
[2025-01-03] MEDS: MAGNESIUM SULFATE / D5W 1 GM/100 ML BAG IV STA (10:11)
--- NOTE | 2025-01-03 13:44 | History & Physical Report ---
Date of Service January 03, 2025 Assessment & Plan (1) Fall: (2) Iron deficiency anemia: (3) Diabetes mellitus, type II: Plan This is a 84-year-old female who has significant past medical history of insulin-dependent T2DM, diabetic polyneuropathy, CKD stage IIIb, HTN, HLD, chr onic diastolic CHF, CAD, history of AAA and GERD who presents to ED secondary to fall and generalized weakness prior to arrival. #Fall #Generalized weakness due to poor oral intake and prepping for colonoscopy ( 2 day prep) admit to med tele No true syncope, pt generally felt weak when trying to stand at bedside and went down on her right side started on clear liquid diet for 2 days, yesterday had 66oz miralax and 2 dulcolax with freq BM consult gastroenterology pt was scheduled for EGD/Colonoscopy as outpt tomorrow 01/04 due to low hgb, October 2024 hgb 9.2 will defer further prep to them, continue clears for now #Anemia, iron def, possible chronic blood loss hgb in October was 9.2, outpt records showing iron deficiency hgb 12 today suspect hemoconcentrated in setting of poor intake monitor hgb, previously on iron, but on hold due to c scope #Hypomagnesemia mag 1.5, will replace #Transaminitis AST 81, ALT 69, ALP 108, no abd pain repeat in a.m., consider further imaging if worsening #Hypoxia pt requiring 2L to maintain O2 > 92% CXR stable CHF/atelectasis, no acute abn states not on oxygen at home as he sent it back in the past; however last hospitalization pt required 2L cont at discharge likely will need another 2 step prior to discharge #IDDM, T2 Lantus/novolog sliding scale hold metformin, jardiance, ozempic a1c 5.8 in october #Chronic Diastolic CHF #HTN #HLD #CAD on HCTZ and statin as outpt hold HCTZ for now #DVT ppx: SCDS for now due to pending procedure DNR/DNI PCP: [facility] Dispo: admit to [facility], will need PT/OT ordered post procedure, at baseline pt is mostly wheel chair bound, house is mostly handicap access, very helpful to her Pt was seen and examined in collaboration with Dr. Ann, please see addendum I spent a total of 76 minutes coordinating, documenting and providing care for this patient excluding time spent in the performance of separately billed services or time spent by another provider/QHP. History of Present Illness Chief Complaint: Fell and generalized weakness prior to arrival. Primary Care Provider: [facility] MD This is a 84-year-old female who has significant past medical history of insulin-dependent T2DM, diabetic polyneuropathy, CKD stage IIIb, HTN, HLD, chronic diastolic CHF, CAD, history of AAA and GERD who presents to ED secondary to fall and generalized weakness prior to arrival. History is obtained from patient and at bedside. She is currently undergoing colonoscopy prep. She started a clear liquid diet 2 days ago. Yesterday she had 2 Dulcolax and 66 ounces of MiraLAX in the evening. She has had multiple stools since this event. She states this morning when she was trying to get out of bed she generally felt weak. She had a potty chair at her bedside and when she went to stand up her legs gave out and she fell on her right side. She did not hit her head. She is adamant she did not lose consciousness. She does have chronic dizziness due to feeling off balance in the setting of her diabetic polyneuropathy. At baseline she is mostly in a wheelchair. She ambulates very minimally. She feels that the prep has been hard on her especially only on clear liquids since Friday. She denies any fever, chills, sweats, lightheadedness, dizziness, chest pain, shortness of breath, nausea, vomiting or abdominal pain. In ED patient remained hemodynamically stable. She was desaturating requiring 2 L of oxygen. ED provider spoke with microsoft office instructor on-call who agreed to bring patient in for colonoscopy under close monitoring. She was scheduled for colonoscopy and EGD tomorrow at [facility] by Dr. Mcleod. This was due to an unexplained anemia and possible GI bleeding. Her external [facility] chart was reviewed which showed a hemoglobin of 9.2 from October. Allergies Allergy/AdvReac Type Severity Reaction Status Date / Time COVID-19 vacc, bv (Orig, AdvReac Intermediate Verified 01/03/25 11:11 Omicron BA.4/5) (Pfizer) [From Pfizer COVID Bival(12y up)(PF)] oxycodone AdvReac Intermediate OVER Verified 01/03/25 11:11 SEDATED Home Medications Medication Instructions Recorded Confirmed Type omega-3 fatty acids 1,000 mg 2,000 mg PO QAM ##0 10/15/13 01/03/25 History capsule omeprazole 20 mg tablet,delayed 20 mg PO DAILYBB ##0 10/15/13 01/03/25 History release coenzyme Q10 100 mg capsule 100 mg PO QAM ##0 01/04/16 01/03/25 History atorvastatin 40 mg tablet 40 mg PO HS ##0 04/09/17 01/03/25 History dicyclomine 10 mg capsule 10 mg PO TID Abdominal Pain ##0 04/09/17 01/03/25 History vitamin B complex 1 tab PO QAM 09/21/20 01/03/25 History lorazepam 0.5 mg tablet 0.5 mg PO TID PRN Anxiety 05/24/21 01/03/25 History metformin 750 mg tablet,extended 750 mg PO AMHS 05/24/21 01/03/25 History release 24 hr pregabalin 150 mg capsule 150 mg PO TID 05/24/21 01/03/25 History gxiwrvr-vibgwubbfvbsj-deexcakz 250 1 tab PO Q6H PRN Pain 09/24/21 01/03/25 History mg-250 mg-65 mg tablet (Excedrin Extra Strength) hydrochlorothiazide 25 mg tablet 25 mg PO QAM 09/24/21 01/03/25 History magnesium 250 mg tablet 250 mg PO QAM 09/24/21 01/03/25 History cyanocobalamin (vitamin B-12) 500 500 mcg PO DAILY 06/05/22 01/03/25 History mcg tablet (Vitamin B-12) empagliflozin 10 mg tablet 10 mg PO QAM 06/05/22 01/03/25 History (Jardiance) insulin glargine 100 unit/mL (3 36 unit subcut QAM 08/31/24 01/03/25 History mL) subcutaneous pen (Lantus Solostar U-100 Insulin) semaglutide 2 mg/dose (8 mg/3 mL) 2 mg subcut WK 08/31/24 01/03/25 History subcutaneous pen injector (Ozempic) methimazole 10 mg tablet 10 mg PO QAM 12/01/24 01/03/25 History mirabegron 25 mg tablet,extended 25 mg PO QAM 12/01/24 01/03/25 History release 24 hr (Myrbetriq) valerian root 500 mg capsule 500 mg PO HS 01/03/25 01/03/25 History Past Med/Surg History Problem List (Updated 01/03/25 @ 17:02 by Jerry Nuno MD) Diarrhea (Acute) Hypomagnesemia (Acute) Fall (Acute) Weakness (Acute) Respiratory acidosis COVID Hypoxia (Acute) Pneumonia (Acute) COVID-19 (Acute) Symptomatic anemia (Acute) Urinary tract infection (Acute) Acute hypoxic respiratory failure Gross hematuria (Acute) LVH (left ventricular hypertrophy) CAD (coronary artery disease) (Chronic) Diastolic dysfunction (Chronic) Dementia Ambulatory dysfunction (Acute) Iron deficiency anemia (Acute) Diabetes mellitus, type II (Chronic) Dyslipidemia (Chronic) CKD (chronic kidney disease), stage III (Chronic) Hypertension (Chronic) GERD (gastroesophageal reflux disease) (Chronic) Medical History History of melena Non-ST elevation MA (NSTEMI) Fracture of distal end of fibula Kidney stones History of MA (myocardial infarction) Osteoarthritis Dry eye syndrome Anxiety Peripheral neuropathy Surgical History Hx of colonoscopy with polypectomy History of hysterectomy History of carpal tunnel release left History of discectomy LUMBAR (TOTAL 2 LUMBAR DISCECTOMY) History of appendectomy History of tooth extraction Hx of eye surgery LASER PROCEDURE History of cataract surgery RT/LEFT S/P cystoscopy with ureteral stent placement 05/13/19 [facility] Family History Brother Family history of diabetes mellitus Other Cancer Heart disease Kidney disease Social History Smoking Status: Former smoker Tobacco Type: Cigarettes Second Hand Exposure: No; Do You Dip or Chew Tobacco: No; Hx Alcohol Use: No Hx Substance Use: No Preferred Language: Polish Communication Ability: Effective Visual Impairment: No Limitations Hearing Ability: Normal Burial Needs Salesperson Required: No Beliefs That Will Affect Care: None marital status: Current Living Situation: Spouse current occupational status: retired Other Information That Helps Us Care for You: No Feels Safe at Home: Yes Safety Concerns: Feels Safe At This Time Diet: diabetic caffeine: Yes during the past year weight has: remained stable Physical Activity Frequency: Does not Exercise Seatbelt Use: always Do you think of yourself as: straight/heterosexual Gender Identity: Female Assistive Devices: Denture - Upper, Denture - Lower, Walker and Wheelchair Review of Systems Review of Systems: All systems reviewed & are unremarkable except as noted in HPI & below Physical Exam Physical Exam: Gen: Elderly, F, WD/WN, [place], NAD, A&O x3 HEENT: Normocephalic, atraumatic, conjunctivae moist, sclerae anicteric, mucous membranes moist dry, edentulous Lung: Clear to Auscultation bilaterally, no wheezes/rales/rhonchi on 2 L via NC Heart: Regular rate, regular rhythm, no murmurs, rubs, or gallops Abdomen: Soft, NT, ND +BS x 4 Extremities: No edema Skin: Warm, no rash, negative turgor. Results & Data Results & Data Vital Signs (Past 12 Hours) Vital Signs Temp Pulse Pulse Resp BP BP Pulse Ox 01/03/25 10:00 82 20 105/69 99 01/03/25 09:39 86 19 89 L 01/03/25 09:21 95 H 19 90 01/03/25 09:18 94 H 01/03/25 08:43 37.4 C 100 H 17 119/59 L 92 01/03/25 08:43 37.4 C 100 H 17 119/59 L 92 O2 Del Method O2 Flow Rate 01/03/25 10:00 Nasal Cannula 2 01/03/25 09:39 Room Air 01/03/25 09:21 Room Air 01/03/25 09:18 01/03/25 08:43 Room Air 01/03/25 08:43 Room Air Laboratory Results I have independently reviewed and interpreted patient's admitting labs including CBC, CMP , TSH mag and troponin. Diagnostic Findings Chest X-Ray 01/03/25 08:50 XR chest 1V portable CLINICAL HISTORY: weakness COMPARISON STUDY: 09/16/2024 FINDINGS: Stable cardiomegaly with mild pulmonary vascular congestion. Stable mild stranding in the lung bases. No pleural effusion or pneumothorax seen. IMPRESSION: 1. Stable mild CHF. 2. Stable mild stranding in the lung bases, likely atelectasis. ACT 112: Negative or not required by law. Electronically signed by: Lawrence Robbins M.D. 01/03/2025 9:[address] 01/03/25 08:50 CT SCAN OF THE BRAIN WITHOUT IV CONTRAST CLINICAL HISTORY: Fall. COMPARISON STUDY: MRI of the brain May 24, 2021. Head CT December 01, 2024. TECHNIQUE: Unenhanced axial CT scan of the brain was performed from the vertex to the skull base. A dose lowering technique was utilized adhering to the principles of ALARA. CT DOSE: 703.85 mGy.cm FINDINGS: Brain parenchyma: No acute intracranial hemorrhage, midline shift or mass effect is present. Aldrich-white matter differentiation is preserved. There are no extra- axial fluid collections. There are no findings to suggest acute dural sinus thrombosis or acute territorial infarct. Bilateral basal ganglia and cerebellar calcifications are unchanged. White matter hypodensities are unchanged and favor small vessel disease. Ventricles, sulci, cisterns: There is no hydrocephalus. The basal cisterns are patent. Calvarium: Unremarkable. Sinuses and mastoids: The visualized paranasal sinuses are clear. The mastoid air cells are well pneumatized. Orbits: The bony orbits are grossly intact. IMPRESSION: 1. No acute intracranial findings. No change in appearance of the brain. 2. No calvarial fractures. ACT 112: Negative or not required by law. Electronically signed by: Luis Alberto Blankenship M.D. 01/03/2025 9:21 AM Medications Administered Medication List Discontinued Medications Sodium Chloride (Nss) 500 mls @ 999 mls/hr IV .Q31M URI Stop: 01/03/25 09:30 Last Infusion: 01/03/25 10:11 Dose: Infused Documented By: Admin: 01/03/25 09:19 Dose: 999 mls/hr Documented By: VIK Magnesium Sulfate/Dextrose (Magnesium Sulfate / D5w) 1 gm in 100 mls @ 100 mls/hr IV NOW STA Stop: 01/03/25 10:59 Last Infusion: 01/03/25 11:40 Dose: Infused Documented By: Admin: 01/03/25 10:11 Dose: 100 mls/hr Documented By: VIK Code Status & VTE Plan VTE Prophylaxis Plan VTE Prophylaxis will be ordered: Yes Supervising Physician Co-Signing Physician Notes 84-year-old lady with PMH of diabetic polyneuropathy, insulin-dependent T2DM, CKD stage IIIb, HTN, HLD, diastolic CHF presents to the ED after fall. Patient reports she has been on clear liquid diet since Friday and has been going through colonoscopy prep since yesterday morning. Today morning when she woke up and stood up to get out of bed, her legs gave out and she fell on her buttocks. Denies hitting head or loss of consciousness, denies palpitation or nausea or warmth/nausea prior to fall. Patient denies any febrile illness in the recent week. Labs and imagings reviewed. Labs fairly WNL. LFT mildly elevated, trend LFT in AM. TSH WNL. UA negative for UTI. CXR with stable CHF changes, no new acute finding. CT head with no new acute finding. Fall secondary to weakness in the setting of bowel prep and clear liquid diet. Likely could have orthostatic hypotension as well. Will monitor orthostatic hypotension, consult GI for possible scope while inpatient. Clear liquid diet for now. Replace magnesium total of 2 g today. Will get x-ray pelvis as she fell on her buttocks. Grade 1 decubitus ulcer: Patient's reports patient is in wheelchair most of the time and is getting red bottom. There is no skin breakdown noted, no signs of infection, grade 1 decubitus ulcer +. Wound care nurse consult, change position every 1-2 hours. On exam: Patient on 1 L nasal cannula oxygen, trace BLE edema, elderly/weak appearing. Rest of the examination as above. Total time spent independently: 25 minutes. I have seen and examined the patient and have discussed the case with the provider above. I agree with the assessment and plan as stated. (1) Fall Encounter type: initial encounter Qualified Code(s): W19.XXXA - Unspecified fall, initial encounter (3) Diabetes mellitus, type II Diabetes mellitus complication detail: with unspecified neuropathy Diabetes mellitus complication status: with neurologic complications Diabetes mellitus intermediate card tender insulin use: with assisted use Qualified Code(s): E11.40 - Type 2 diabetes mellitus with diabetic neuropathy, unspecified; Z79.4 - half-way (current) use of insulin
[2025-01-03] MEDS ORDERED: GLUCOSE 10 TAB/TUBE PO PRN ×2 (14:13)
[2025-01-03] MEDS ORDERED: GLUCOSE 40% GEL 15 GM TUBE PO PRN ×2 (14:13)
[2025-01-03] MEDS ORDERED: CARBOHYDRATES FOR HYPOGLYCEMIA PO PRN ×2 (14:13)
[2025-01-03] MEDS ORDERED: GLUCAGON FOR INJ 1 MG VIAL SQ PRN ×2 (14:13)
[2025-01-03] MEDS ORDERED: DEXTROSE 50% 50 ML SYRINGE IV PRN ×2 (14:13)
[2025-01-03] MEDS ORDERED: MELATONIN 3 MG TAB PO PRN (14:13)
[2025-01-03] MEDS: MAGNESIUM SULFATE / D5W 1 GM/100 ML BAG IV ONE (14:23)
--- NOTE | 2025-01-03 15:19 | Gastrointestinal Consultation ---
Date of Consultation January 03, 2025 Assessment & Plan (1) History of melena: Plan 84yowf with h/o GERD, Hyperthyroidism, HTN, CKD 3, DL, T2DM, BRUNA, Dementia, CAD is seen today for consideration of inpatient EGD and colonoscopy for reported melena about 2-3 weeks ago. She became lightheaded and felt weak this morning after taking 1/2 of her colonoscopy prep. Clinically she reports she feels well otherwise. ER work up was consistent with dehydration. (1) H/O Melena and poor tolerance of prep. - Plan to continue on clear liquids. - Plan to EGD and Colonoscopy 01/04/25. Reviewed benefits and risks with patient. Agrees to proceed. - Golytely split prep ordered. - NPO afternight. - F/U with results. Supervising Physician Co-Signing Physician Notes I saw and examined this patient with our nurse practitioner and agree with her assessment and plan. Patient presented with possible melena several weeks ago was scheduled for an outpatient endoscopy and colonoscopy and was unable to tolerate prep at home. Will proceed with in-hospital prep and colonoscopy and endoscopy in a.m. History of Present Illness Reason for Consultation: Weakness during Colonoscopy prep. Needs EGD/Colonoscopy for melena (2-3 weeks ago). Attending Physician: Niko Ann MD History of Present Illness 84yowf with h/o GERD, Hyperthyroidism, HTN, CKD 3, DL, T2DM, BRUNA, Dementia, CAD is seen today on hospital rounds. Patient reports that she completed half of her colonoscopy prep for planned EGD/Colonoscopy tomorrow. This morning she went to get out of bed and felt a little weak. She went to get up and her legs gave out. She was unable to get up off the floor for about 1 1/2 hours and eventually was brought [facility] ER. ER work up reviewed. Hgb 12.1 g/dl, Hct 38.6%, WBC 7.19k/ul, Plt 170k/ul. Na 135, K 4.0, Cl 94, CO2 34, BUN 11, Cr 0.83, GFR 69, Mg 1.5. T-bili 1.0 AST 81, ALT 69, Alk Phos 108. Troponin 1 12.9, TSH 1.183. 01/03/25 - CXR 1. Stable mild CHF. 2. Stable mild stranding in the lung bases, likely atelectasis. 01/03/25 - Head CT negative. She denies any fevers, chills SOB, CP, abdominal pain, N/V/D, changes in urination or edema. She denies any family history of colorectal CA. Surgical History - Appendectomy in child price. Social history - No tobacco, alcohol or drug use. No NSAID use. Allergies Allergy/AdvReac Type Severity Reaction Status Date / Time COVID-19 vacc, bv (Orig, AdvReac Intermediate Verified 01/03/25 11:11 Omicron BA.4/5) (Pfizer) [From Pfizer COVID Bival(12y up)(PF)] oxycodone AdvReac Intermediate OVER Verified 01/03/25 11:11 SEDATED Home Medications Medication Instructions Recorded Confirmed Type omega-3 fatty acids 1,000 mg 2,000 mg PO QAM ##0 10/15/13 01/03/25 History capsule omeprazole 20 mg tablet,delayed 20 mg PO DAILYBB ##0 10/15/13 01/03/25 History release coenzyme Q10 100 mg capsule 100 mg PO QAM ##0 01/04/16 01/03/25 History atorvastatin 40 mg tablet 40 mg PO HS ##0 04/09/17 01/03/25 History dicyclomine 10 mg capsule 10 mg PO TID Abdominal Pain ##0 04/09/17 01/03/25 History vitamin B complex 1 tab PO QAM 09/21/20 01/03/25 History lorazepam 0.5 mg tablet 0.5 mg PO TID PRN Anxiety 05/24/21 01/03/25 History metformin 750 mg tablet,extended 750 mg PO AMHS 05/24/21 01/03/25 History release 24 hr pregabalin 150 mg capsule 150 mg PO TID 05/24/21 01/03/25 History tabzmys-rzcncyabqtlfd-olhmeyhx 250 1 tab PO Q6H PRN Pain 09/24/21 01/03/25 History mg-250 mg-65 mg tablet (Excedrin Extra Strength) hydrochlorothiazide 25 mg tablet 25 mg PO QAM 09/24/21 01/03/25 History magnesium 250 mg tablet 250 mg PO QAM 09/24/21 01/03/25 History cyanocobalamin (vitamin B-12) 500 500 mcg PO DAILY 06/05/22 01/03/25 History mcg tablet (Vitamin B-12) empagliflozin 10 mg tablet 10 mg PO QAM 06/05/22 01/03/25 History (Jardiance) insulin glargine 100 unit/mL (3 36 unit subcut QAM 08/31/24 01/03/25 History mL) subcutaneous pen (Lantus Solostar U-100 Insulin) semaglutide 2 mg/dose (8 mg/3 mL) 2 mg subcut WK 08/31/24 01/03/25 History subcutaneous pen injector (Ozempic) methimazole 10 mg tablet 10 mg PO QAM 12/01/24 01/03/25 History mirabegron 25 mg tablet,extended 25 mg PO QAM 12/01/24 01/03/25 History release 24 hr (Myrbetriq) valerian root 500 mg capsule 500 mg PO HS 01/03/25 01/03/25 History Patient History Medical History (Updated 01/03/25 @ 14:26 by Kurtis Ayon PA-C) History of melena Non-ST elevation IN (NSTEMI) Fracture of distal end of fibula Kidney stones History of IN (myocardial infarction) Osteoarthritis Dry eye syndrome Anxiety Peripheral neuropathy Surgical History Hx of colonoscopy with polypectomy History of hysterectomy History of carpal tunnel release left History of discectomy LUMBAR (TOTAL 2 LUMBAR DISCECTOMY) History of appendectomy History of tooth extraction Hx of eye surgery LASER PROCEDURE History of cataract surgery RT/LEFT S/P cystoscopy with ureteral stent placement 05/13/19 [facility] Family History Brother Family history of diabetes mellitus Other Cancer Heart disease Kidney disease Social History Smoking Status: Former smoker Tobacco Type: Cigarettes Second Hand Exposure: No; Do You Dip or Chew Tobacco: No; Hx Alcohol Use: No Hx Substance Use: No Preferred Language: Kyrgyz Communication Ability: Effective Visual Impairment: No Limitations Hearing Ability: Normal Manager Sap Required: No Beliefs That Will Affect Care: None marital status: Current Living Situation: Spouse current occupational status: retired Other Information That Helps Us Care for You: No Feels Safe at Home: Yes Safety Concerns: Feels Safe At This Time Diet: diabetic caffeine: Yes during the past year weight has: remained stable Physical Activity Frequency: Does not Exercise Seatbelt Use: always Do you think of yourself as: straight/heterosexual Gender Identity: Female Assistive Devices: Denture - Upper, Denture - Lower, Walker and Wheelchair Review of Systems Review of Systems: See HPI Physical Exam Physical Exam: Constitutional: NAD. Alert. Answering questions appropriately. Respiratory: Breathing is even, non-labored. Lungs sanchez are clear to auscultation anteriorly. Cardiovascular: Regular Rate and Rhythm, no murmurs, rubs or gallops appreciated. Gastrointestinal (Abdomen): Normoactive bowel sounds x4, soft, non-distended, non-tender. Musculoskeletal: Lying in bed comfortably. No peripheral edema. Results & Data Vital Signs (Past 12 Hours) Vital Signs Temp Pulse Pulse Resp BP BP BP 01/03/25 13:52 97.0 F L 89 18 144/71 H 01/03/25 13:10 97.9 F 89 17 126/75 01/03/25 12:00 83 19 110/72 01/03/25 10:00 82 20 105/69 01/03/25 09:39 86 19 01/03/25 09:21 95 H 19 01/03/25 09:18 94 H 01/03/25 08:43 99.3 F 100 H 17 119/59 L 01/03/25 08:43 99.3 F 100 H 17 119/59 L Pulse Ox O2 Del Method O2 Flow Rate 01/03/25 13:52 94 Nasal Cannula 2 01/03/25 13:10 96 Nasal Cannula 2 01/03/25 12:00 98 Room Air 01/03/25 10:00 99 Nasal Cannula 2 01/03/25 09:39 89 L Room Air 01/03/25 09:21 90 Room Air 01/03/25 09:18 01/03/25 08:43 92 Room Air 01/03/25 08:43 92 Room Air PG Care Time/CCT Total # of Minutes Spent Total Time Spent with Patient: Total time spent is greater than 50% in coordination of care (as documented) at patient's floor/unit and/or counseling patient: Coding Level of Care Code 63601 IN/OBS CONSULT LVL 3,45M Diagnoses History of melena Z87.19
[2025-01-03] MEDS: PREGABALIN 150 MG CAP PO SCH (15:37)
[2025-01-03] MEDS: DICYCLOMINE HCL 10 MG CAP PO SCH (15:42)
[2025-01-03] MEDS: INSULIN ASPART PER UNIT CHARGE SC SCH (18:24)
[2025-01-03] MEDS: LAVAGE SOLUTION 4000ML PO SCH (18:28)
--- NOTE | 2025-01-03 19:51 | XRay Report ---
INDICATION: Pain TECHNIQUE: Frontal pelvic radiograph was obtained. COMPARISON: None FINDINGS: Evaluation somewhat limited due to underpenetration. No displaced acute osseous process is identified. Mild osteoarthritis of both hip joints. IMPRESSION: No displaced acute osseous process is identified. Evaluation somewhat limited due to underpenetration. Electronically signed by Lux Stapleton 01-03-2025 7:49 PM
[2025-01-03] MEDS: LORazepam 0.5 MG TAB PO PRN (20:48)
[2025-01-03] MEDS: ATORVASTATIN 40 MG TAB PO SCH (20:48)
[2025-01-03] MEDS: ONDANSETRON INJ 2 MG/ML 2 ML VIAL IV PRN (21:22)
[2025-01-04] MEDS: LACTATED RINGER'S 1,000 ML IV SCH (01:05)
[2025-01-04] MEDS ORDERED: Nursing to Pharmacy Communication SCH (01:45)
[2025-01-04] MEDS: INSULIN ASPART PER UNIT CHARGE SC SCH ×2 (06:17→21:01)
--- NOTE | 2025-01-04 07:55 | Hospitalist Progress Note ---
Date of Service January 04, 2025 Assessment & Plan (1) Fall: (2) Iron deficiency anemia: (3) Diabetes mellitus, type II: Plan This is a 84-year-old female who has significant past medical history of insulin-dependent T2DM, diabetic polyneuropathy, CKD stage IIIb, HTN, HLD, chronic diastolic CHF, CAD, history of AAA and GERD who presents to ED secondary to fall and generalized weakness prior to arrival. #Fall #Generalized weakness due to poor oral intake and prepping for colonoscopy (2 day prep) Not true syncope, pt generally felt weak when trying to stand at bedside and went down on her right side No acute traumatic findings noted on CT head, pelvis XR Fall precautions PT/OT evaluations #Anemia, BRUNA, possible GI bleed Consulted gastroenterology - plan for EGD/Colonoscopy this afternoon Keep NPO for now Hgb 10.4 (from 12 yesterday, but suspect hemoconcentrated in setting of poor intake) Hold iron for scope #NSVT Alerted by RN of 11 beat vtach around 10:52AM, asymptomatic Reviewed strip on telemetry Giving Mag and K to keep >2, >4 respectively Resting echo ordered Continue to monitor, consider cards consult if recurs or becomes symptomatic #Hypomagnesemia Mag 1.5 on admission, repleted to 1.8 Keep Mg >2 in setting of NSVT as above #Transaminitis AST 81, ALT 69, ALP 108, no abd pain repeat in a.m., slightly worsened Appreciate GI recs #Hypoxia pt requiring 2L to maintain O2 > 92% CXR stable CHF/atelectasis, no acute abn ? Oxygen requirement in the past - review of documentation mentions patient required 2L continued on discharge last admission, states she is not on at home Encourage incentive spirometry Likely will need another 2 step prior to discharge #IDDM, T2 Lantus/novolog sliding scale hold metformin, jardiance, ozempic A1c 5.8 in october #Chronic Diastolic CHF #HTN #HLD #CAD On HCTZ and statin as outpt Hold HCTZ for now #DVT ppx: SCDS for now due to pending procedure DNR/DNI PCP: [facility] Dispo: admit to med tele, will need PT/OT ordered post procedure, at baseline pt is mostly wheel chair bound, house is mostly handicap access, very helpful to her Patient seen in collaboration with Dr. Kaufman. I spent a total of 50 minutes coordinating, documenting, and providing care for this patient excluding time spent in the performance of separately billed services or time spent by another provider/QHP. Admission and Anticipated Discharge Date Admission Date: January 03, 2025 Supervising Physician Co-Signing Physician Notes delayed entry date of service noted above Attending Addendum: Case reviewed with the advanced practitioner. I have personally performed a history and physical examination on the patient. I have reviewed the advanced practitioner's documentation on the date of service referenced in note, and I agree with, and take responsibility for the plan of care. please refer to her notes for full details patient seen and examined, records reviewed by myself as well diagnoses and plan of care as per advanced practitioner's notes I spent a total of 35 minutes coordinating, documenting, and providing care for this patient, excluding time spent in the performance of separately billed services or time spent by another provider/QHP. Ash Kaufman MD Subjective Seen and examined in -2. Comfortable resting other than headache. Feels hungry awaiting scope this afternoon. Denies F/C, lightheadedness, CP, SOB, N/V, abd pain, dysuria, diarrhea or constipation. Review of Systems Review of Systems: At least ten systems reviewed and negative except as noted in the HPI. Physical Exam Physical Exam: Gen: WD/WN, NAD, resting in bed, appears pale, A&Ox3 HEENT: Normocephalic, atraumatic, dry mucous membranes or oropharynx Lung: Bibasilar rales, no wheezes/rhonchi Heart: Regular rate, regular rhythm Abdomen: Soft, NT, ND +BS x 4 Extremities: trace edema Skin: Warm, no rash Results & Data Results & Data Vital Signs (Past 12 Hours) Vital Signs Temp Pulse Pulse Resp BP Pulse Ox O2 Del Method 01/04/25 07:23 80 01/04/25 03:56 36.3 C L 82 18 133/65 97 Nasal Cannula 01/04/25 01:39 83 01/03/25 23:23 36.3 C L 81 18 121/74 92 Nasal Cannula O2 Flow Rate 01/04/25 07:23 01/04/25 03:56 2 01/04/25 01:39 01/03/25 23:23 2 Laboratory Results Short CBC 01/04/25 01/04/25 Range/Units 07:26 13:15 WBC 4.46 L (4.8-10.8) K/ul Hgb 10.3 L 10.4 L (12.0-16.0) g/dl Hct 34.1 L 34.1 L (37.0-47.0) % Plt Count 150 (130-400) K/uL BMP 01/04/25 07:26 Sodium 139 Potassium 3.7 Chloride 100 Carbon Dioxide 34 H BUN 8 Creatinine 0.78 Glucose 158 H Calcium 8.5 L Liver Function 01/04/25 Range/Units 07:26 Total Bilirubin 0.6 (0.2-1.0) mg/dl AST 119 H (13-39) U/L ALT 78 H (7-52) U/L Alkaline Phosphatase 100 (34-104) U/L Albumin 3.0 L (3.4-5.0) gm/dl Diagnostic Findings Chest X-Ray 01/03/25 08:50 XR chest 1V portable CLINICAL HISTORY: weakness COMPARISON STUDY: 09/16/2024 FINDINGS: Stable cardiomegaly with mild pulmonary vascular congestion. Stable mild stranding in the lung bases. No pleural effusion or pneumothorax seen. IMPRESSION: 1. Stable mild CHF. 2. Stable mild stranding in the lung bases, likely atelectasis. ACT 112: Negative or not required by law. Electronically signed by: Lawrence Robbins M.D. 01/03/2025 9:[address] 01/03/25 08:50 CT SCAN OF THE BRAIN WITHOUT IV CONTRAST CLINICAL HISTORY: Fall. COMPARISON STUDY: MRI of the brain May 24, 2021. Head CT December 01, 2024. TECHNIQUE: Unenhanced axial CT scan of the brain was performed from the vertex to the skull base. A dose lowering technique was utilized adhering to the principles of ALARA. CT DOSE: 703.85 mGy.cm FINDINGS: Brain parenchyma: No acute intracranial hemorrhage, midline shift or mass effect is present. Aldrich-white matter differentiation is preserved. There are no extra- axial fluid collections. There are no findings to suggest acute dural sinus thrombosis or acute territorial infarct. Bilateral basal ganglia and cerebellar calcifications are unchanged. White matter hypodensities are unchanged and favor small vessel disease. Ventricles, sulci, cisterns: There is no hydrocephalus. The basal cisterns are patent. Calvarium: Unremarkable. Sinuses and mastoids: The visualized paranasal sinuses are clear. The mastoid air cells are well pneumatized. Orbits: The bony orbits are grossly intact. IMPRESSION: 1. No acute intracranial findings. No change in appearance of the brain. 2. No calvarial fractures. ACT 112: Negative or not required by law. Electronically signed by: Luis Alberto Blankenship M.D. 01/03/2025 9:21 AM Pelvis X-Ray 01/03/25 17:53 INDICATION: Pain TECHNIQUE: Frontal pelvic radiograph was obtained. COMPARISON: None FINDINGS: Evaluation somewhat limited due to underpenetration. No displaced acute osseous process is identified. Mild osteoarthritis of both hip joints. IMPRESSION: No displaced acute osseous process is identified. Evaluation somewhat limited due to underpenetration. 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
[2025-01-04 08:17] LABS: Alanine Aminotransferase 78.0 U/L (7-52); Albumin Globulin Ratio 1.0 (0.9-2); Alkaline Phosphatase 100.0 U/L (34-104); Anion Gap 5.0 (3-11); Bilirubin,Total 0.6 mg/dl (0.2-1.0); Blood Urea Nitrogen 8.0 mg/dl (6-23); Calcium 8.5 mg/dl (8.6-10.3); Carbon Dioxide 34.0 mmol/L (21-32); Chloride 100.0 mmol/L (98-107); Creatinine Clr Calc Pharmacy 55.9 ml/min; Globulin 3.1 gm/dl (2.5-4.0); Glucose 158.0 mg/dl (70-99(Fasting)); Magnesium 1.8 mg/dl (1.7-2.4); Potassium 3.7 mmol/L (3.5-5.1); Sodium 139.0 mmol/L (136-145); Total Protein 6.1 gm/dl (6.0-8.3)
[2025-01-04 08:19] LABS: Hematocrit (blood only) 34.1 % (37.0-47.0); Hemoglobin 10.3 g/dl (12.0-16.0); Immature Granulocytes # (auto) 0.02 K/uL (0.01-0.20); Immature Granulocytes % (auto) 0.4 %; Mean Corpuscular Hemoglobin 25.1 pg (25.0-34.0); Mean Corpuscular Volume 83.0 fL (80.0-100.0); Platelet Count 150 K/uL (130-400); RDW Standard Deviation 55.6 fL (36.4-46.3); Red Blood Count 4.11 M/uL (4.20-5.40); White Blood Count 4.46 K/ul (4.8-10.8)
[2025-01-04 08:45] LABS: Hemoglobin A1C 7.4 % (4.5-5.6)
--- NOTE | 2025-01-04 08:59 | History & Physical Bridge Note ---
Date of Service January 04, 2025 History & Physical Bridge Note I have examined the patient, reviewed the History & Physical and in the interval since the performance of the History & Physical I have noted the following changes of clinical significance: no changes noted Spoke with patient today. No concerns. Passing clear stools. NPO. Plan to proceed with EGD and Colonoscopy for evaluation of melena. Supervising Physician Co-Signing Physician Notes I saw and examined this patient with our nurse practitioner and agree with her assessment and plan. Patient presented with possible melena several weeks ago was scheduled for an outpatient endoscopy and colonoscopy and was unable to tolerate prep at home. Will proceed with in-hospital prep and colonoscopy and endoscopy in a.m.
[2025-01-04] MEDS ORDERED: NON-FORMULARY MEDICATION (Coenzyme Q10 100 mg Capsule) PO SCH (09:00)
[2025-01-04] MEDS: LANTUS PER UNIT CHARGE SQ SCH (09:25)
--- NOTE | 2025-01-04 10:41 | Electrocardiogram Report ---
Test Reason : Blood Pressure : */* mmHG Vent. Rate : 97 BPM Atrial Rate : 97 BPM P-R Int : 178 ms QRS Dur : 74 ms QT Int : 406 ms P-R-T Axes : 37 -49 30 degrees QTcB Int : 515 ms Sinus rhythm with Premature supraventricular complexes Left axis deviation Low voltage QRS Inferior infarct (cited on or before 28-Sep-2021) Poor R wave progression, consider anterior ID vs. lead placement vs. LVH Abnormal ECG When compared with ECG of 01-Dec-2024 01:16, Premature supraventricular complexes are now Present Non-specific change in ST segment in Anterior leads Nonspecific T wave abnormality, worse in Anterior leads QT has lengthened Confirmed by Ted Davidson ([id number]) on 01/04/2025 10:40:44 AM Referred By: REFERRED SELF Confirmed By: Ted Davidson
[2025-01-04] MEDS: ACETAMINOPHEN 1,000 MG/100 ML VIAL IV STA (12:14)
[2025-01-04] MEDS: POTASSIUM CHLORIDE / WTR 10 MEQ/100 ML PLCT IV SCH (12:35)
[2025-01-04 14:01] LABS: Hematocrit (blood only) 34.1 % (37.0-47.0); Hemoglobin 10.4 g/dl (12.0-16.0)
[2025-01-04] MEDS: MAGNESIUM SULFATE / D5W 1 GM/100 ML BAG IV ONE (15:37)
--- NOTE | 2025-01-04 16:01 | Anesthesiology Consultation ---
Date of Service January 04, 2025 Assessment & Plan Chart Review Chart Review: Acceptable Risk for Surgery ASA ASA3 Proposed Anesthesia Anesthesia Type: MAC Risk / Benefits Reviewed With: PT / POA / Parent / Guardian, Accepts Plan and Informed Consent Obtained History Surgery Operation Date: 01/04/25 18:20 Proposed Procedures p Colonoscopy EGD Dr. Deangelo Bright MD Height/Weight Height: 5 ft 3 in Weight: 83.37 kg Allergies Allergy/AdvReac Type Severity Reaction Status Date / Time COVID-19 vacc, bv (Orig, AdvReac Intermediate Verified 01/03/25 11:11 Omicron BA.4/5) (Pfizer) [From Pfizer COVID Bival(12y up)()] oxycodone AdvReac Intermediate OVER Verified 01/03/25 11:11 SEDATED Medications Home Medications Medication Instructions Recorded Confirmed Last Taken omega-3 fatty acids 1,000 mg 2,000 mg PO QAM ##0 10/15/13 01/03/25 01/02/25 capsule omeprazole 20 mg tablet,delayed 20 mg PO DAILYBB ##0 10/15/13 01/03/25 01/02/25 release coenzyme Q10 100 mg capsule 100 mg PO QAM ##0 01/04/16 01/03/25 01/02/25 atorvastatin 40 mg tablet 40 mg PO HS ##0 04/09/17 01/03/25 01/02/25 dicyclomine 10 mg capsule 10 mg PO TID Abdominal Pain ##0 04/09/17 01/03/25 01/02/25 vitamin B complex 1 tab PO QAM 09/21/20 01/03/25 01/02/25 lorazepam 0.5 mg tablet 0.5 mg PO TID PRN Anxiety 05/24/21 01/03/25 09/16/24 12:00 metformin 750 mg tablet,extended 750 mg PO AMHS 05/24/21 01/03/25 01/02/25 release 24 hr pregabalin 150 mg capsule 150 mg PO TID 05/24/21 01/03/25 01/02/25 rclycou-wmityccpbcire-prhwycpv 250 1 tab PO Q6H PRN Pain 09/24/21 01/03/25 09/23/21 mg-250 mg-65 mg tablet (Excedrin Extra Strength) hydrochlorothiazide 25 mg tablet 25 mg PO QAM 09/24/21 01/03/25 01/02/25 magnesium 250 mg tablet 250 mg PO QAM 09/24/21 01/03/25 01/02/25 cyanocobalamin (vitamin B-12) 500 500 mcg PO DAILY 06/05/22 01/03/25 01/02/25 mcg tablet (Vitamin B-12) empagliflozin 10 mg tablet 10 mg PO QAM 06/05/22 01/03/25 01/02/25 (Jardiance) insulin glargine 100 unit/mL (3 36 unit subcut QAM 08/31/24 01/03/25 01/02/25 mL) subcutaneous pen (Lantus Solostar U-100 Insulin) semaglutide 2 mg/dose (8 mg/3 mL) 2 mg subcut WK 08/31/24 01/03/25 12/27/24 subcutaneous pen injector (Ozempic) methimazole 10 mg tablet 10 mg PO QAM 12/01/24 01/03/25 01/02/25 mirabegron 25 mg tablet,extended 25 mg PO QAM 12/01/24 01/03/25 01/02/25 release 24 hr (Myrbetriq) valerian root 500 mg capsule 500 mg PO HS 01/03/25 01/03/25 01/02/25 Active Medications Generic Name Dose Route Start Last Admin Trade Name Freq PRN Reason Stop Dose Admin Atorvastatin Calcium 40 mg 01/03/25 21:00 01/03/25 20:48 Atorvastatin 40 Mg Tab PO 02/02/25 20:59 40 mg HS URI Administration Dicyclomine HCl 10 mg 01/03/25 14:13 01/03/25 15:42 Dicyclomine Hcl 10 Mg Cap PO 02/02/25 14:12 Not Given TID URI Lactated Ringer's 1,000 mls @ 50 mls/hr 01/04/25 00:00 01/04/25 01:05 Lr IV 01/04/25 19:59 50 mls/hr .Q20H URI Administration Insulin Aspart 0 units 01/04/25 06:00 01/04/25 13:18 Insulin Aspart Per Unit Charge SC 02/03/25 05:59 Not Given Q6 URI Insulin Glargine 0 - 20 units 01/04/25 09:00 07/01/25 09:25 Lantus Per Unit Charge SQ 02/03/25 08:59 Not Given DAILY URI Lorazepam 0.5 mg 01/03/25 14:13 01/03/25 20:48 Lorazepam 0.5 Mg Tab PO 02/02/25 14:12 0.5 mg TID PRN Administration Anxiety Ondansetron HCl 4 mg 01/03/25 14:13 01/04/25 04:02 Ondansetron Inj 2 Mg/Ml 2 Ml Vial IV 02/02/25 14:12 4 mg Q6H PRN Administration Nausea Pantoprazole Sodium 40 mg 01/04/25 06:30 01/04/25 06:17 Pantoprazole 40 Mg Tab PO 02/03/25 06:29 40 mg DAILYBB URI Administration Pregabalin 150 mg 01/03/25 14:13 01/04/25 12:03 Pregabalin 150 Mg Cap PO 02/02/25 14:12 Not Given TID URI NPO Date Last Intake of Fluids: 01/03/25 Time Last Intake of Fluids: 23:59 Date Last Intake of Solids: 01/02/25 Time Last Intake of Solids: 18:00 Past Medical History Medical History History of melena Non-ST elevation PR (NSTEMI) Fracture of distal end of fibula Kidney stones History of PR (myocardial infarction) Osteoarthritis Dry eye syndrome Anxiety Peripheral neuropathy Past Family History Family History Brother Family history of diabetes mellitus Other Cancer Heart disease Kidney disease Past Surgical History Surgical History Hx of colonoscopy with polypectomy History of hysterectomy History of carpal tunnel release left History of discectomy LUMBAR (TOTAL 2 LUMBAR DISCECTOMY) History of appendectomy History of tooth extraction Hx of eye surgery LASER PROCEDURE History of cataract surgery RT/LEFT S/P cystoscopy with ureteral stent placement 05/13/19 MAC Social History Smoking Status: Former smoker tobacco type: cigarettes Do You Dip or Chew Tobacco: No Hx Alcohol Use: No Hx Substance Use: No substance use type: does not use Physical Exam Vital Signs Last Vital Signs Temp 36.6 C 01/04/25 15:57 Pulse 75 01/04/25 15:57 Resp 16 01/04/25 15:57 BP 101/43 L 01/04/25 15:57 Pulse Ox 96 01/04/25 15:57 O2 Del Method Nasal Cannula 01/04/25 15:57 O2 Flow Rate 2 01/04/25 15:57 ENMT Thyromental Distance: > or= 3.5 Finger Breadths Mallampati Class: II Respiratory normal respiratory effort Auscultation: lungs clear to auscultation bilaterally Cardiovascular Rate/Rhythm: regular rate and regular rhythm Psychiatric Orientation: alert and oriented x 3 Testing Laboratory Results 01/04/25 13:15 01/04/25 07:26 Hemoglobin A1c 7.4 % (4.5-5.6) H 01/04/25 07:26 Urine Color Yellow 01/03/25 08:59 Urine Appearance Clear (Clear) 01/03/25 08:59 Urine pH 7.0 (4.5-7.5) 01/03/25 08:59 Ur Specific [place] 1.008 (1.000-1.030) 01/03/25 08:59 Urine Protein 1+ (Negative) H 01/03/25 08:59 Urine Glucose (UA) Negative (Negative) 01/03/25 08:59 Urine Ketones Negative (Negative) 01/03/25 08:59 Urine Nitrite Negative (Negative) 01/03/25 08:59 Ur Leukocyte Esterase 3+ (Negative) H 01/03/25 08:59 Urine WBC (Auto) 21-50 /hpf (0-5) H 01/03/25 08:59 Urine RBC (Auto) 0-2 /hpf (0-2) 01/03/25 08:59 U Hyaline Cast (Auto) 0-2 /lpf (0-2) 01/03/25 08:59 U Epithel Cells (Auto) 0-2 /hpf (0-2) 01/03/25 08:59 Urine Bacteria (Auto) None Seen (None Seen) 01/03/25 08:59 01/03/25 08:59 Urine Culture - Preliminary Urine,Straight Cath Pin-point growth present, reincubating. 01/04/25 01/04/25 12:00 06:11 POC Glucose 159 H 171 H
[2025-01-04] MEDS: VIBEGRON 75 MG TAB PO SCH (16:05)
--- NOTE | 2025-01-04 16:59 | GI REPORT ---
[facility] Patient: JOSELINE WATSON : 1940 Sex at : Female Age: 84 Years Procedure: Upper GI endoscopy Date: 01/04/2025 Attending Physician: Gilberto Bright MD Referring MD: Ash Kaufman Indications: - Anemia GI bleed Medications: - Monitored Anesthesia Care Complications: - No immediate complications. Procedure: - Prior to the procedure, a History and Physical was performed, and patient medications and allergies were reviewed. The patient's tolerance of previous anesthesia was also reviewed. The risks and benefits of the procedure and the sedation options and risks were discussed with the patient. All questions were answered, and informed consent was obtained. [Anticoagulant Agents] [Days Prior to Procedure]. [ASA Grade]. After reviewing the risks and benefits, the patient was deemed in satisfactory condition to undergo the procedure. - The egd scope was introduced through the mouth and advanced to the second part of the duodenum. - The upper GI endoscopy was accomplished without difficulty. - The patient tolerated the procedure well. Findings: - The examined esophagus was normal. - The entire examined stomach was normal. - The examined duodenum was normal. Impression: - Normal esophagus. - Normal stomach. - Normal examined duodenum. - No specimens collected. Recommendation: - Resume previous diet. - Patient has a contact number available for emergencies. The signs and symptoms of potential delayed complications were discussed with the patient. Return to normal activities tomorrow. Written discharge instructions were provided to the patient. Procedure Code(s): - 36092, Esophagogastroduodenoscopy, flexible, transoral; diagnostic, including collection of specimen(s) by brushing or washing, when performed (separate procedure) CPT(R) - 2023 copyright [employer]. All Rights Reserved. The CPT codes, CCI edits and ICD codes generated are intended as suggestions and were generated based on input data. These codes are preliminary and upon aircraft avionics technician review may be revised to meet current compliance and payer requirements. The provider is responsible for the final determination of appropriate codes, and modifiers. Gilberto Bright MD This document has been electronically signed. Note Initiated:01/04/2025 Note Completed:01/04/2025 4:59 PM \\[email or web address]\InterfaceData\Data\Provation\Results\LIVE\[id number].pdf
--- NOTE | 2025-01-04 17:05 | GI REPORT ---
[facility] Patient: JOSELINE WATSON : 1940 Sex at : Female Age: 84 Years Procedure: Colonoscopy Date: 01/04/2025 Attending Physician: Gilberto Bright MD Referring MD: Ash Kaufman Indications: - GI bleed Medications: - Monitored Anesthesia Care Complications: - No immediate complications. Procedure: - Prior to the procedure, a History and Physical was performed, and patient medications and allergies were reviewed. The patient's tolerance of previous anesthesia was also reviewed. The risks and benefits of the procedure and the sedation options and risks were discussed with the patient. All questions were answered, and informed consent was obtained. [Anticoagulant Agents] [Days Prior to Procedure]. [ASA Grade]. After reviewing the risks and benefits, the patient was deemed in satisfactory condition to undergo the procedure. - The adult colonoscope was introduced through the anus and advanced to the cecum, identified by appendiceal orifice and ileocecal valve. - The colonoscopy was performed without difficulty. - The patient tolerated the procedure well. - The quality of the bowel preparation was [Prep Quality]. - [Anatomical Structures] photographed. Findings: - The perianal and digital rectal examinations were normal. - A diminutive (1-3 mm) polyp was found in the ascending colon. The polyp was sessile. The polyp was removed with a cold biopsy forceps. Resection and retrieval were complete. - Two sessile polyps were found in the ascending colon. The polyps were 10 mm in size. These polyps were removed with a hot snare. Resection and retrieval were complete. - A small (4-6 mm) polyp was found in the transverse colon. The polyp was sessile. The polyp was removed with a cold snare. Polyp resection was incomplete, and the resected tissue was not retrieved. - A small (4-6 mm) polyp was found in the descending colon. The polyp was sessile. The polyp was removed with a cold snare. Resection was complete, and retrieval was complete. - Multiple diverticula were found in the entire colon. - No other significant abnormalities were identified in a careful examination of the remainder of the colon. Impression: - One diminutive (1-3 mm) polyp in the ascending colon, removed with a cold biopsy forceps. Resected and retrieved. - Two 10 mm polyps in the ascending colon, removed with a hot snare. Resected and retrieved. - One small (4-6 mm) polyp in the transverse colon, removed with a cold snare. Complete resection. Resected tissue not retrieved. - One small (4-6 mm) polyp in the descending colon, removed with a cold snare. Resected and retrieved. - Diverticulosis in the entire examined colon. Recommendation: - Await pathology results. - Resume previous diet. - Patient has a contact number available for emergencies. The signs and symptoms of potential delayed complications were discussed with the patient. Return to normal activities tomorrow. Written discharge instructions were provided to the patient. Procedure Code(s): - 16911, Colonoscopy, flexible; with removal of tumor(s), polyp(s), or other lesion(s) by snare technique - 71789-76, Colonoscopy, flexible; with biopsy, single or multiple Diagnosis Code(s): - D12.2, Benign neoplasm of ascending colon - D12.3, Benign neoplasm of transverse colon (hepatic flexure or splenic flexure) - D12.4, Benign neoplasm of descending colon - K57.30, Diverticulosis of large intestine without perforation or abscess without bleeding CPT(R) - 2023 copyright [employer]. All Rights Reserved. The CPT codes, CCI edits and ICD codes generated are intended as suggestions and were generated based on input data. These codes are preliminary and upon glacing machine tender review may be revised to meet current compliance and payer requirements. The provider is responsible for the final determination of appropriate codes, and modifiers. Gilberto Bright MD This document has been electronically signed. Note Initiated:01/04/2025 Note Completed:01/04/2025 5:03 PM \\[email or web address]\[email or web address]\Data\Provation\Results\LIVE\[id number].pdf
--- NOTE | 2025-01-04 17:31 | Anesthesiology Progress Note ---
Date of Service January 04, 2025 Anesthesia Post Procedure Vital Signs Vital Signs: Temp Pulse Pulse Resp BP BP Pulse Ox 01/04/25 17:10 78 16 105/42 L 97 01/04/25 15:57 36.6 C 75 16 101/43 L 96 01/04/25 15:34 36.4 C L 87 20 138/75 93 01/04/25 13:00 80 01/04/25 11:07 36.6 C 79 20 133/73 95 01/04/25 09:00 01/04/25 08:22 36.4 C L 84 20 90/60 L 99 01/04/25 07:23 80 01/04/25 03:56 36.3 C L 82 18 133/65 97 01/04/25 01:39 83 01/03/25 23:23 36.3 C L 81 18 121/74 92 01/03/25 19:43 35.8 C L 83 18 124/73 95 O2 Del Method O2 Flow Rate 01/04/25 17:10 Room Air 01/04/25 15:57 Nasal Cannula 2 01/04/25 15:34 Nasal Cannula 2 01/04/25 13:00 01/04/25 11:07 Nasal Cannula 2 01/04/25 09:00 Nasal Cannula 2 01/04/25 08:22 Nasal Cannula 2 01/04/25 07:23 01/04/25 03:56 Nasal Cannula 2 01/04/25 01:39 01/03/25 23:23 Nasal Cannula 2 01/03/25 19:43 Nasal Cannula 2 Transfer of Care Handoff Completed per policy Notes Mental Status: alert / awake / arousable Patient Amnestic to Procedure: Yes Nausea / Vomiting: adequately controlled Pain: adequately controlled Airway Patency, RR, SpO2: stable & adequate BP & HR: stable & adequate Hydration State: stable & adequate Anesthetic Complications: no major complications apparent
[2025-01-04] MEDS: LIDOCAINE 2% 2 ML VIAL/AMP(20MG/ML) INFIL ONE (19:07)
[2025-01-04] MEDS: PROPOFOL IV EMULSION 10 MG/ML 20 ML VIAL IV ONE (19:07)
[2025-01-04] MEDS: ACETAMINOPHEN 325 MG TAB PO PRN (21:01)
[2025-01-05 06:58] LABS: Hematocrit (blood only) 36.0 % (37.0-47.0); Hemoglobin 10.7 g/dl (12.0-16.0); Mean Corpuscular Hemoglobin 24.9 pg (25.0-34.0); Mean Corpuscular Volume 83.9 fL (80.0-100.0); Platelet Count 167 K/uL (130-400); RDW Standard Deviation 55.6 fL (36.4-46.3); Red Blood Count 4.29 M/uL (4.20-5.40); White Blood Count 4.61 K/ul (4.8-10.8)
[2025-01-05 07:24] LABS: Alanine Aminotransferase 55.0 U/L (7-52); Albumin Globulin Ratio 1.0 (0.9-2); Alkaline Phosphatase 92.0 U/L (34-104); Anion Gap 4.0 (3-11); Bilirubin,Total 0.5 mg/dl (0.2-1.0); Blood Urea Nitrogen 6.0 mg/dl (6-23); Calcium 8.8 mg/dl (8.6-10.3); Carbon Dioxide 34.0 mmol/L (21-32); Chloride 100.0 mmol/L (98-107); Creatinine Clr Calc Pharmacy 52.8 ml/min; Globulin 3.0 gm/dl (2.5-4.0); Glucose 151.0 mg/dl (70-99(Fasting)); Iron 40.0 mcg/dl (35-150); Potassium 4.1 mmol/L (3.5-5.1); Sodium 138.0 mmol/L (136-145); Total Protein 6.0 gm/dl (6.0-8.3); Transferrin 222.0 mg/dl (200-360)
[2025-01-05 07:42] LABS: Ferritin 38.5 ng/ml (8-388); Folate (Folic Acid),Ser orPlas > 22.30 ng/ml (>5.38)
[2025-01-05 07:43] LABS: Vitamin B12 > 1500 pg/ml (180-914)
[2025-01-05 09:01] LABS: Magnesium 1.7 mg/dl (1.7-2.4)
--- NOTE | 2025-01-05 10:23 | XRay Report ---
XR chest 1V portable CLINICAL HISTORY: hypoxia COMPARISON STUDY: 01/03/2025 FINDINGS: There is stable cardiomegaly with mild pulmonary vascular congestion. Stable stranding opac ity at the left lung base. No new consolidation or pleural effusion. No pneumothorax. IMPRESSION: Stable exam. ACT 112: Negative or not required by law. Electronically signed by: Lawrence Robbins M.D. 01/05/2025 10:21 AM
[2025-01-05] MEDS: MAGNESIUM OXIDE 400 MG TAB PO SCH (10:48)
--- NOTE | 2025-01-05 11:25 | Gastroenterology Progress Note ---
Date of Service January 05, 2025 Assessment & Plan (1) History of melena: Plan: 84yowf with h/o GERD, Hyperthyroidism, HTN, CKD 3, DL, T2DM, BRUNA, Dementia, CAD is seen today on hospital rounds for f/u EGD and colonoscopy. (1) Reported episode of melena, unable to tolerate Colonoscopy prep as outpatient. - No obvious source of bleeding on EGD or colonoscopy. - H/H has been stable throughout hospitalization without s/s of over GI bleeding. - Would resume home medications with Omeprazole 20mg/day. - Monitor for s/s of bleeding and anemia with PCP. If patient develops anemia or s/s of bleeding may consider referral for VCE. - Otherwise we'll plan to f/u with the results of her biopsies. We'll plan to call with her results. - Further recommendations to come with Supervising GI provider on medical rounds. Please see co-signature comments. Admission and Anticipated Discharge Date Admission Date: January 03, 2025 Supervising Physician Co-Signing Physician Notes I saw and examined this patient with our nurse practitioner and agree with her assessment and plan. Colonoscopy revealed extensive diverticulosis and benign- appearing colon polyps. No further bleeding hemoglobin stable. Possible resolved diverticular bleed. No further intervention at this point unless bleeding recurs. Call if any further issues. Subjective 84yowf with h/o GERD, Hyperthyroidism, HTN, CKD 3, DL, T2DM, BRUNA, Dementia, CAD is seen today on hospital rounds for f/u EGD and colonoscopy. Patient was undergoing an outpatient colonoscopy prep for reported episode of melena. She went to get up and her legs gave out. She was unable to get up off the floor for about 1 1/2 hours and eventually was brought [facility] ER. ER work up reviewed. Hgb 12.1 g/dl, Hct 38.6%, WBC 7.19k/ul, Plt 170k/ul. Na 135, K 4.0, Cl 94, CO2 34, BUN 11, Cr 0.83, GFR 69, Mg 1.5. T-bili 1.0 AST 81, ALT 69, Alk Phos 108. Troponin 1 12.9, TSH 1.183. 01/03/25 - CXR 1. Stable mild CHF. 2. Stable mild stranding in the lung bases, likely atelectasis. 01/03/25 - Head CT negative. Hgb stable at 10.7 g/dl EGD and Colonoscopy completed 01/04/25 - revealing multiple polyps, pathology pending. Extensive diverticulitis. No signs of active bleeding. EGD revealed unremarkable esophagus, stomach and duodenum. No specimens collected. She denies any fevers, chills SOB, CP, abdominal pain, N/V/D, changes in urination or edema. She denies any family history of colorectal CA. Surgical History - Appendectomy in child price. Social history - No tobacco, alcohol or drug use. No NSAID use. Review of Systems Review of Systems: See HPI Physical Exam Physical Exam: Constitutional: NAD. Alert. Answering questions appropriately. Respiratory: Breathing is even, non-labored. Lungs sanchez are clear to auscultation anteriorly. Cardiovascular: Regular Rate and Rhythm, no murmurs, rubs or gallops appreciated. Gastrointestinal (Abdomen): Normoactive bowel sounds x4, soft, non-distended, non-tender. Musculoskeletal: Sitting comfortably in [place]. No peripheral edema. Results & Data Results & Data Vital Signs (Past 12 Hours) Vital Signs Temp Pulse Pulse Resp BP Pulse Ox O2 Del Method 01/05/25 07:43 98.1 F 97 H 20 144/77 H 95 Nasal Cannula 01/05/25 07:22 89 01/05/25 02:59 98.4 F 99 H 21 150/80 H 93 High Flow Nasal Cannula O2 Flow Rate 01/05/25 07:43 2 01/05/25 07:22 01/05/25 02:59 2 Laboratory Results 01/03/25 08:59 Urine Culture - Final Urine,Straight Cath Gardnerella vaginalis 01/05/25 01/05/25 01/04/25 07:55 06:17 20:10 WBC 4.61 L RBC 4.29 Hgb 10.7 L Hct 36.0 L MCV 83.9 MCH 24.9 L MCHC 29.7 L RDW Std Deviation 55.6 H RDW Coeff of Pia 18.3 H Plt Count 167 MPV 10.3 Sodium 138 Potassium 4.1 Chloride 100 Carbon Dioxide 34 H Anion Gap 4 BUN 6 Creatinine 0.83 Est Cr Clr Drug Dosing 52.8 eGFR 69.90 BUN/Creatinine Ratio 7.2 L Glucose 151 H POC Glucose 173 H 175 H Calcium 8.8 Magnesium 1.7 Iron 40 Transferrin 222 Ferritin 38.5 Total Bilirubin 0.5 AST 63 H ALT 55 H Alkaline Phosphatase 92 Total Protein 6.0 Albumin 3.0 L Globulin 3.0 Albumin/Globulin Ratio 1.0 Vitamin B12 > 1500 H Folate > 22.30 01/04/25 01/04/25 01/04/25 17:54 13:15 12:00 WBC RBC Hgb 10.4 L Hct 34.1 L MCV MCH MCHC RDW Std Deviation RDW Coeff of Pia Plt Count MPV Sodium Potassium Chloride Carbon Dioxide Anion Gap BUN Creatinine Est Cr Clr Drug Dosing eGFR BUN/Creatinine Ratio Glucose POC Glucose 152 H 159 H Calcium Magnesium Iron Transferrin Ferritin Total Bilirubin AST ALT Alkaline Phosphatase Total Protein Albumin Globulin Albumin/Globulin Ratio Vitamin B12 Folate PG Care Time/CCT Total # of Minutes Spent Total Time Spent with Patient: Total time spent is greater than 50% in coordination of care (as documented) at patient's floor/unit and/or counseling patient: Coding Level of Care Code 50751 SUB INP/OBS CARE 2/35MIN Diagnoses History of melena Z87.19
[2025-01-05] MEDS: FUROSEMIDE INJ 20 MG/2 ML VIAL IV ONE (12:10)
--- NOTE | 2025-01-05 13:54 | Hospitalist Progress Note ---
Date of Service January 05, 2025 Assessment & Plan (1) Fall: (2) Iron deficiency anemia: (3) Diabetes mellitus, type II: Plan 84-year-old female who has significant past medical history of insulin-dependent T2DM, diabetic polyneuropathy, CKD stage IIIb, HTN, HLD, chronic diastolic CHF, CAD, history of AAA and GERD who presents to ED secondary to fall and generalized weakness prior to arrival. Fall Generalized weakness due to poor oral intake and prepping for colonoscopy (2 day prep) Not true syncope, pt generally felt weak when trying to stand at bedside and went down on her right side No acute traumatic findings noted on CT head, pelvis XR Fall precautions PT/OT evaluations Anemia, possible GI bleed GI consulted s/p EGD and colonoscopy on 01/04 EGD unremarkable Colonoscopy - several polyps removed, diverticulosis. Pathology - tubular adenomas. Advance diet Daily PO PPI Hgb 12.1 -> 10.3 (suspect hemoconcentrated in setting of poor intake) -> 10.7 today Iron level 40 Acute on Chronic Diastolic CHF Noted to have crackles on exam today and continued O2 requirement Lasix 20mg IV x 1 - noted to be Lasix naive, typically only on HCTZ o/p Echo: EF 55-60%, grade I diastolic dysfunction, trace MR, trace TR NSVT 01/04: Alerted by RN of 11 beat vtach around 10:52AM, asymptomatic Reviewed strip on telemetry Giving Mag and K to keep >2, >4 respectively Echo: EF 55-60%, grade I diastolic dysfunction, trace MR, trace TR No further recurrences Hypomagnesemia Mag 1.5 on admission, repleted to 1.8 Keep Mg >2 in setting of NSVT as above Mg+ 1.7 today - starting oral replacement Transaminitis Improved today - AST 63, ALT 55, alk phos 92, T. Bili 0.5 Continue to monitor Hypoxia pt requiring 2L to maintain O2 > 92% On admission CXR stable CHF/atelectasis, no acute abn Oxygen requirement in the past - review of documentation mentions patient required 2L continued on discharge last admission, states she is no longer using at home Encourage incentive spirometry Likely will need another 2 step prior to discharge IDDM, T2 Lantus/novolog sliding scale hold metformin, jardiance, ozempic Hgb a1c 7.4 HTN HLD CAD On HCTZ and statin as outpt Hold HCTZ as diuresing above DVT ppx: SCDS DNR/DNI PCP: Lacy Dispo: admit to med tele, will need PT/OT ordered post procedure, at baseline pt is mostly wheel chair bound, house is mostly handicap access, very helpful to her Patient seen in collaboration with Dr. Locke. I spent a total of 35 minutes coordinating, documenting, and providing care for this patient excluding time spent in the performance of separately billed services or time spent by another provider/QHP. Admission and Anticipated Discharge Date Admission Date: January 03, 2025 Supervising Physician Co-Signing Physician Notes Pt seen and examined by me, care coordinated w/ L. CAROLYN Brunner, pls refer to her note for further detail. Pt seen sitting on bedside commode, OT in the room, at the bedside. I returned to the room bit later, pt was still in the same position, OT present. Pt reported some lower abd. discomfort as she had to wait for RN to help her to commode. Now resolved. No chest pain, or shortness of breath but pt is using suppl. O2. Pt's reports that she usually saturates at home 91-93% on RA. Previously was using O2 at home. Pt s/p EGD/ colonoscopy - pathology w/ tubular adenoma. Per GI likely resolved diverticular bleed. Hgb stable. Cont. to closely monitor and will discuss further DC planning. Per PT - recommend home w/ HH. MD Chucky I spent a total of 25 minutes coordinating, documenting, and providing care for this patient excluding time spend in the performance of separately billed services or time spent by another provider / QHP. Subjective Follow up for fall, generalized weakness, possible GI bleeding. Review of Systems Review of Systems: ROS per HPI, all other systems reviewed and negative Physical Exam Constitutional: no acute distress chronically ill appearing Respiratory: normal respiratory effort; no respiratory distress Auscultation: + diminished lung sounds (BL) and + crackles (BL) Cardiovascular: Rate/Rhythm: regular rate and regular rhythm Vessels: normal peripheral pulses Extremities: no edema Gastrointestinal (Abdomen): Percussion/Palpation: abdomen soft; abdomen nontender Skin: no rashes, warm and dry Neurologic: no focal motor deficits Psychiatric: A+Ox3, euthymic affect Results & Data Results & Data Vital Signs (Past 12 Hours) Vital Signs Temp Pulse Pulse Resp BP Pulse Ox O2 Del Method 01/05/25 11:38 Nasal Cannula 01/05/25 11:27 36.8 C 87 18 127/69 95 Room Air 01/05/25 07:43 36.7 C 97 H 20 144/77 H 95 Nasal Cannula 01/05/25 07:22 89 01/05/25 02:59 36.9 C 99 H 21 150/80 H 93 High Flow Nasal Cannula O2 Flow Rate 01/05/25 11:38 2 01/05/25 11:27 01/05/25 07:43 2 01/05/25 07:22 01/05/25 02:59 2 Laboratory Results Short CBC 01/04/25 01/05/25 Range/Units 13:15 06:17 WBC 4.61 L (4.8-10.8) K/ul Hgb 10.4 L 10.7 L (12.0-16.0) g/dl Hct 34.1 L 36.0 L (37.0-47.0) % Plt Count 167 (130-400) K/uL BMP 01/05/25 06:17 Sodium 138 Potassium 4.1 Chloride 100 Carbon Dioxide 34 H BUN 6 Creatinine 0.83 Glucose 151 H Calcium 8.8 Liver Function 01/05/25 Range/Units 06:17 Total Bilirubin 0.5 (0.2-1.0) mg/dl AST 63 H (13-39) U/L ALT 55 H (7-52) U/L Alkaline Phosphatase 92 (34-104) U/L Albumin 3.0 L (3.4-5.0) gm/dl Medications Administered Current Inpatient Medications Acetaminophen (Acetaminophen 325 Mg Tab) 650 mg PO Q4H PRN PRN Reason: Pain or Fever Stop: 02/02/25 14:12 Last Admin: 01/04/25 21:01 Dose: 650 mg Atorvastatin Calcium (Atorvastatin 40 Mg Tab) 40 mg PO HS URI Stop: 02/02/25 20:59 Last Admin: 01/04/25 21:14 Dose: 40 mg Dextrose (Dextrose 50% 50 Ml Syringe) 25 - 50 ml IV UD PRN; Protocol PRN Reason: Hypoglycemia Protocol Stop: 02/02/25 14:12 Dicyclomine HCl (Dicyclomine Hcl 10 Mg Cap) 10 mg PO TID URI Stop: 02/02/25 14:12 Last Admin: 01/03/25 15:42 Dose: Not Given Famotidine (Famotidine 20 Mg Tab) 20 mg PO DAILY PRN PRN Reason: Heartburn Stop: 02/02/25 14:12 Glucagon (Glucagon For Inj 1 Mg Vial) 1 mg SQ UD PRN; Protocol PRN Reason: Hypoglycemia Protocol Stop: 02/02/25 14:12 Glucose (Glucose 40% Gel 15 Gm Tube) 15 - 30 gm PO UD PRN; Protocol PRN Reason: Hypoglycemia Protocol Stop: 02/02/25 14:12 Glucose (Glucose 10 Tab/Tube) 4 - 8 tab PO UD PRN; Protocol PRN Reason: Hypoglycemia Protocol Stop: 02/02/25 14:12 Insulin Aspart (Insulin Aspart Per Unit Charge) 0 units SC ACHS [facility] Stop: 02/03/25 20:59 Last Admin: 01/05/25 17:27 Dose: 3 units Insulin Glargine (Lantus Per Unit Charge) 0 - 20 units SQ DAILY URI Stop: 02/03/25 08:59 Last Admin: 01/05/25 08:29 Dose: 10 units Lorazepam (Lorazepam 0.5 Mg Tab) 0.5 mg PO TID PRN PRN Reason: Anxiety Stop: 02/02/25 14:12 Last Admin: 01/03/25 20:48 Dose: 0.5 mg Magnesium Oxide (Magnesium Oxide 400 Mg Tab) 400 mg PO QAM [facility] Stop: 02/04/25 09:44 Last Admin: 01/05/25 10:48 Dose: 400 mg Melatonin (Melatonin 3 Mg Tab) 3 mg PO HS PRN PRN Reason: Sleep Stop: 02/02/25 14:12 Methimazole (Methimazole 5 Mg Tablet) 10 mg PO QAM [facility] Stop: 02/03/25 08:59 Last Admin: 01/05/25 08:30 Dose: 10 mg Miscellaneous (Carbohydrates For Hypoglycemia ) 15 - 30 gm PO UD PRN PRN Reason: Hypoglycemia Protocol Stop: 02/02/25 14:12 Ondansetron HCl (Ondansetron Inj 2 Mg/Ml 2 Ml Vial) 4 mg IV Q6H PRN PRN Reason: Nausea Stop: 02/02/25 14:12 Last Admin: 01/04/25 04:02 Dose: 4 mg Pantoprazole Sodium (Pantoprazole 40 Mg Tab) 40 mg PO DAILYBB [facility] Stop: 02/03/25 06:29 Last Admin: 01/05/25 05:25 Dose: 40 mg Pregabalin (Pregabalin 150 Mg Cap) 150 mg PO TID [facility] Stop: 02/02/25 14:12 Last Admin: 01/05/25 14:22 Dose: 150 mg Vibegron (Vibegron 75 Mg Tab) 75 mg PO QAM [facility] Stop: 02/03/25 08:59 Last Admin: 01/05/25 08:31 Dose: 75 mg (1) Fall Encounter type: initial encounter Qualified Code(s): W19.XXXA - Unspecified fall, initial encounter (3) Diabetes mellitus, type II Diabetes mellitus complication detail: with unspecified neuropathy Diabetes mellitus complication status: with neurologic complications Diabetes mellitus prison insulin use: with terminal operations supervisor use Qualified Code(s): E11.40 - Type 2 diabetes mellitus with diabetic neuropathy, unspecified; Z79.4 - shelter (current) use of insulin
[2025-01-06 06:30] LABS: Hematocrit (blood only) 36.6 % (37.0-47.0); Hemoglobin 10.8 g/dl (12.0-16.0); Mean Corpuscular Hemoglobin 24.7 pg (25.0-34.0); Mean Corpuscular Volume 83.8 fL (80.0-100.0); Platelet Count 167 K/uL (130-400); RDW Standard Deviation 54.9 fL (36.4-46.3); Red Blood Count 4.37 M/uL (4.20-5.40); White Blood Count 4.64 K/ul (4.8-10.8)
[2025-01-06 06:48] LABS: Anion Gap 3.0 (3-11); Blood Urea Nitrogen 18.0 mg/dl (6-23); Calcium 9.0 mg/dl (8.6-10.3); Carbon Dioxide 37.0 mmol/L (21-32); Chloride 99.0 mmol/L (98-107); Creatinine Clr Calc Pharmacy 49.0 ml/min; Glucose 181.0 mg/dl (70-99(Fasting)); Magnesium 1.6 mg/dl (1.7-2.4); Potassium 3.8 mmol/L (3.5-5.1); Sodium 139.0 mmol/L (136-145)
[2025-01-06] MEDS ORDERED: MAGNESIUM SULFATE / D5W 1 GM/100 ML BAG IV ONE (07:41)
[2025-01-06] MEDS: MAGNESIUM OXIDE 400 MG TAB PO SCH ×2 (08:10→20:35)
[2025-01-06] MEDS: MAGNESIUM SULFATE / D5W 1 GM/100 ML BAG IV ONE (08:15)
[2025-01-06] MEDS ORDERED: MAGNESIUM OXIDE 400 MG TAB PO SCH (09:00)
[2025-01-06] MEDS: FUROSEMIDE INJ 20 MG/2 ML VIAL IV ONE ×2 (09:14→15:29)
[2025-01-06] MEDS: POTASSIUM CHLORIDE CRTAB 20 MEQ TABCR PO STA (09:14)
[2025-01-06] MEDS: METOPROLOL TARTRATE 25 MG TAB PO SCH (12:11)
--- NOTE | 2025-01-06 14:13 | Hospitalist Progress Note ---
Date of Service January 06, 2025 Assessment & Plan (1) Fall: (2) Iron deficiency anemia: (3) Diabetes mellitus, type II: Plan 84-year-old female who has significant past medical history of insulin-dependent T2DM, diabetic polyneuropathy, CKD stage IIIb, HTN, HLD, chronic diastolic CHF, CAD, history of AAA and GERD who presents to ED secondary to fall and generalized weakness prior to arrival. Fall Generalized weakness due to poor oral intake and prepping for colonoscopy (2 day prep) Not true syncope, pt generally felt weak when trying to stand at bedside and went down on her right side No acute traumatic findings noted on CT head, pelvis XR Fall precautions PT/OT evaluations - recommending home with home health Anemia, possible GI bleed GI consulted s/p EGD and colonoscopy on 01/04 EGD unremarkable Colonoscopy - several polyps removed, diverticulosis. Pathology - tubular adenomas. Tolerating regular diet Daily PO PPI Hgb 12.1 -> 10.3 (suspect hemoconcentrated in setting of poor intake) -> 10.7 -> 10.8 today Iron level 40 Acute on Chronic Diastolic CHF 01/05: Noted to have crackles on exam and continued O2 requirement Lasix 20mg IV x 1 - noted to be Lasix naive, typically only on HCTZ o/p Echo: EF 55-60%, grade I diastolic dysfunction, trace MR, trace TR Continues to have crackles on exam today - will give an additional Lasix 10mg IV. Outpatient chart reviewed - patient previously on Lasix 20mg daily however discontinued in favor of HCTZ in 2021 by nephrology due to history of calcium oxalate kidney stones. Also previously on lisinopril however discontinued in the setting of VALERIY and hyperkalemia. NSVT 01/04: Alerted by RN of 11 beat vtach around 10:52AM, asymptomatic Giving Mag and K to keep >2, >4 respectively Echo: EF 55-60%, grade I diastolic dysfunction, trace MR, trace TR Had another 6 beat run of V-tach this AM, asymptomatic Mg+ mildly low 1.6 - giving 1gm IV and increased PO to BID, K+ 3.8 - giving 20meq PO Patient previously on carvedilol, unclear discontinuation reason. Discussed with cardiology, will resume beta frederick - metoprolol tartrate 12.5mg BID, likely can change to succinate at discharge. Hypomagnesemia Mag 1.5 on admission, repleted to 1.8 Keep Mg >2 in setting of NSVT as above Started oral replacement on 01/05 Mg+ 1.6 today - giving 1gm IV and increasing PO to BID Transaminitis Improved, labs on 01/05: AST 63, ALT 55, alk phos 92, T. Bili 0.5 Continue to monitor Hypoxia pt requiring 2L to maintain O2 > 92% On admission CXR stable CHF/atelectasis, no acute abn Oxygen requirement in the past - review of documentation mentions patient required 2L continued on discharge last admission, states she is no longer using at home Encourage incentive spirometry 2 step completed - patient requires 2L continuous IDDM, T2 Lantus/novolog sliding scale hold metformin, jardiance, ozempic Hgb a1c 7.4 HTN HLD On HCTZ and statin as outpt Hold HCTZ, diuresing as above DVT ppx: SCDS DNR/DNI PCP: [place] Dispo: PT/OT recommending home w/ HH, anticipate d/c home tomorrow after monitoring for 24h for NSVT Patient seen in collaboration with Dr. Locke. I spent a total of 35 minutes coordinating, documenting, and providing care for this patient excluding time spent in the performance of separately billed services or time spent by another provider/QHP. Admission and Anticipated Discharge Date Admission Date: January 03, 2025 Supervising Physician Co-Signing Physician Notes Pt seen and examined by me, care coordinated w/ L. CAROLYN Brunner, pls refer to her note for further detail. Pt sitting up in chair in NAD. Feeling well. Denies any chest pain, shortness of breath or abd. pain. Had 2 step done and requires 2L of suppl. O2. Previously was on O2, per now on RA at home, and saturating usually 91-93%. Pt s/p EGD/ colonoscopy - pathology w/ tubular adenoma. Per GI likely resolved diverticular bleed. Hgb stable. Pt then again had NSVT this AM , asymptomatic. Mag being repleted. Cardiology contacted given hx of CHF (not on GDMT), recommend starting metoprolol. MD Chucky I spent a total of 25 minutes coordinating, documenting, and providing care for this patient excluding time spend in the performance of separately billed services or time spent by another provider / QHP. Subjective Follow up for fall, generalized weakness, possible GI bleeding. Patient seen and examined. Sitting up in the chair having breakfast. Nursing reported 6 beat run of V-tach around 0845, patient asymptomatic. Patient reports she is feeling well, eager for discharge, offers no complaints. 2 step O2 eval completed - patient will require 2L continuous. Review of Systems Review of Systems: ROS per HPI, all other systems reviewed and negative Physical Exam Constitutional: no acute distress chronically ill appearing Respiratory: Auscultation: + diminished lung sounds (BL) and + crackles (BL bases) Cardiovascular: Rate/Rhythm: regular rate and regular rhythm Vessels: normal peripheral pulses Extremities: no edema Skin: no rashes, warm and dry Neurologic: no focal motor deficits Psychiatric: A+Ox3, euthymic affect Results & Data Results & Data Vital Signs (Past 12 Hours) Vital Signs Temp Pulse Pulse Pulse Pulse Pulse Pulse 01/06/25 11:19 36.4 C L 86 01/06/25 08:02 36.9 C 88 01/06/25 07:49 102 H 84 92 H 87 01/06/25 07:45 80 01/06/25 07:45 01/06/25 04:00 36.6 C 79 Resp Resp Resp Resp Resp BP Pulse Ox 01/06/25 11:19 20 120/74 93 01/06/25 08:02 20 103/60 97 01/06/25 07:49 20 16 16 16 01/06/25 07:45 01/06/25 07:45 01/06/25 04:00 18 132/69 95 Pulse Ox Pulse Ox Pulse Ox Pulse Ox O2 Del Method O2 Flow Rate O2 Flow Rate 01/06/25 11:19 Nasal Cannula 2 01/06/25 08:02 Nasal Cannula 2 01/06/25 07:49 93 94 93 87 L 2 01/06/25 07:45 01/06/25 07:45 Nasal Cannula 2 01/06/25 04:00 Nasal Cannula 2 O2 Flow Rate O2 Flow Rate 01/06/25 11:19 01/06/25 08:02 01/06/25 07:49 2 2 01/06/25 07:45 01/06/25 07:45 01/06/25 04:00 Laboratory Results Short CBC 01/06/25 Range/Units 05:54 WBC 4.64 L (4.8-10.8) K/ul Hgb 10.8 L (12.0-16.0) g/dl Hct 36.6 L (37.0-47.0) % Plt Count 167 (130-400) K/uL [facility] 01/06/25 05:54 Sodium 139 Potassium 3.8 Chloride 99 Carbon Dioxide 37 H BUN 18 Creatinine 0.90 Glucose 181 H Calcium 9.0 Medications Administered Current Inpatient Medications Acetaminophen (Acetaminophen 325 Mg Tab) 650 mg PO Q4H PRN PRN Reason: Pain or Fever Stop: 02/02/25 14:12 Last Admin: 01/04/25 21:01 Dose: 650 mg Atorvastatin Calcium (Atorvastatin 40 Mg Tab) 40 mg PO HS URI Stop: 02/02/25 20:59 Last Admin: 01/05/25 20:20 Dose: 40 mg Dextrose (Dextrose 50% 50 Ml Syringe) 25 - 50 ml IV UD PRN; Protocol PRN Reason: Hypoglycemia Protocol Stop: 02/02/25 14:12 Dicyclomine HCl (Dicyclomine Hcl 10 Mg Cap) 10 mg PO TID URI Stop: 02/02/25 14:12 Last Admin: 01/03/25 15:42 Dose: Not Given Famotidine (Famotidine 20 Mg Tab) 20 mg PO DAILY PRN PRN Reason: Heartburn Stop: 02/02/25 14:12 Glucagon (Glucagon For Inj 1 Mg Vial) 1 mg SQ UD PRN; Protocol PRN Reason: Hypoglycemia Protocol Stop: 02/02/25 14:12 Glucose (Glucose 40% Gel 15 Gm Tube) 15 - 30 gm PO UD PRN; Protocol PRN Reason: Hypoglycemia Protocol Stop: 02/02/25 14:12 Glucose (Glucose 10 Tab/Tube) 4 - 8 tab PO UD PRN; Protocol PRN Reason: Hypoglycemia Protocol Stop: 02/02/25 14:12 Insulin Aspart (Insulin Aspart Per Unit Charge) 0 units SC ACHS [facility] Stop: 02/03/25 20:59 Last Admin: 01/06/25 12:50 Dose: 5 units Insulin Glargine (Lantus Per Unit Charge) 0 - 20 units SQ DAILY [facility] Stop: 02/03/25 08:59 Last Admin: 01/06/25 08:14 Dose: 20 units Lorazepam (Lorazepam 0.5 Mg Tab) 0.5 mg PO TID PRN PRN Reason: Anxiety Stop: 02/02/25 14:12 Last Admin: 01/03/25 20:48 Dose: 0.5 mg Magnesium Oxide (Magnesium Oxide 400 Mg Tab) 400 mg PO BID [facility] Stop: 02/05/25 20:59 Melatonin (Melatonin 3 Mg Tab) 3 mg PO HS PRN PRN Reason: Sleep Stop: 02/02/25 14:12 Methimazole (Methimazole 5 Mg Tablet) 10 mg PO QAM [facility] Stop: 02/03/25 08:59 Last Admin: 01/06/25 08:11 Dose: 10 mg Metoprolol Tartrate (Metoprolol Tartrate 25 Mg Tab) 12.5 mg PO BID URI Stop: 02/05/25 11:14 Last Admin: 01/06/25 12:11 Dose: 12.5 mg Miscellaneous (Carbohydrates For Hypoglycemia ) 15 - 30 gm PO UD PRN PRN Reason: Hypoglycemia Protocol Stop: 02/02/25 14:12 Ondansetron HCl (Ondansetron Inj 2 Mg/Ml 2 Ml Vial) 4 mg IV Q6H PRN PRN Reason: Nausea Stop: 02/02/25 14:12 Last Admin: 01/04/25 04:02 Dose: 4 mg Pantoprazole Sodium (Pantoprazole 40 Mg Tab) 40 mg PO DAILYBB [facility] Stop: 02/03/25 06:29 Last Admin: 01/06/25 05:29 Dose: 40 mg Pregabalin (Pregabalin 150 Mg Cap) 150 mg PO TID [facility] Stop: 02/02/25 14:12 Last Admin: 01/06/25 14:04 Dose: 150 mg Vibegron (Vibegron 75 Mg Tab) 75 mg PO QAM [facility] Stop: 02/03/25 08:59 Last Admin: 01/06/25 08:11 Dose: 75 mg (1) Fall Encounter type: initial encounter Qualified Code(s): W19.XXXA - Unspecified fall, initial encounter (3) Diabetes mellitus, type II Diabetes mellitus complication detail: with unspecified neuropathy Diabetes mellitus complication status: with neurologic complications Diabetes mellitus intermediate insulin use: with moth exterminator use Qualified Code(s): E11.40 - Type 2 diabetes mellitus with diabetic neuropathy, unspecified; Z79.4 - shelter (curr ent) use of insulin
[2025-01-07 06:17] LABS: Hematocrit (blood only) 34.7 % (37.0-47.0); Hemoglobin 10.7 g/dl (12.0-16.0); Mean Corpuscular Hemoglobin 25.3 pg (25.0-34.0); Mean Corpuscular Volume 82.0 fL (80.0-100.0); Platelet Count 178 K/uL (130-400); RDW Standard Deviation 53.8 fL (36.4-46.3); Red Blood Count 4.23 M/uL (4.20-5.40); White Blood Count 4.89 K/ul (4.8-10.8)
[2025-01-07 06:46] LABS: Anion Gap 6.0 (3-11); Blood Urea Nitrogen 23.0 mg/dl (6-23); Calcium 9.1 mg/dl (8.6-10.3); Carbon Dioxide 34.0 mmol/L (21-32); Chloride 97.0 mmol/L (98-107); Creatinine Clr Calc Pharmacy 45.4 ml/min; Glucose 185.0 mg/dl (70-99(Fasting)); Magnesium 1.5 mg/dl (1.7-2.4); Potassium 3.6 mmol/L (3.5-5.1); Sodium 137.0 mmol/L (136-145)
[2025-01-07] MEDS: MAGNESIUM SULFATE / D5W 1 GM/100 ML BAG IV ONE ×2 (07:37→10:59)
[2025-01-07] MEDS: FAMOTIDINE 20 MG TAB PO PRN (08:24)
[2025-01-07] MEDS: POTASSIUM CHLORIDE CRTAB 20 MEQ TABCR PO STA (08:24)
[2025-01-07 10:10] VITALS: RESP 20
[2025-01-07] MEDS: FUROSEMIDE INJ 20 MG/2 ML VIAL IV ONE (10:59)
[2025-01-07 11:15] VITALS: O2SAT 96
[2025-01-07 12:28] VITALS: TEMP 98.1
--- NOTE | 2025-01-07 13:41 | Discharge Summary ---
Date of Service January 07, 2025 Admission HPI Per Admitting Provider This is a 84-year-old female who has significant past medical history of insulin-dependent T2DM, diabetic polyneuropathy, CKD stage IIIb, HTN, HLD, chronic diastolic CHF, CAD, history of AAA and GERD who presents to ED secondary to fall and generalized weakness prior to arrival. History is obtained from patient and at bedside. She is currently undergoing colonoscopy prep. She started a clear liquid diet 2 days ago. Yesterday she had 2 Dulcolax and 66 ounces of MiraLAX in the evening. She has had multiple stools since this event. She states this morning when she was trying to get out of bed she generally felt weak. She had a potty chair at her bedside and when she went to stand up her legs gave out and she fell on her right side. She did not hit her head. She is adamant she did not lose consciousness. She does have chronic dizziness due to feeling off balance in the setting of her diabetic polyneuropathy. At baseline she is mostly in a wheelchair. She ambulates very minimally. She fe els that the prep has been hard on her especially only on clear liquids since Friday. She denies any fever, chills, sweats, lightheadedness, dizziness, chest pain, shortness of breath, nausea, vomiting or abdominal pain. In ED patient remained hemodynamically stable. She was desaturating requiring 2 L of oxygen. ED provider spoke with mail caller on-call who agreed to bring patient in for colonoscopy under close monitoring. She was scheduled for colonoscopy and EGD tomorrow at [facility] by Dr. Mcleod. This was due to an unexplained anemia and possible GI bleeding. H er external [facility] chart was reviewed which showed a hemoglobin of 9.2 from October. Admission Exam Per Admitting Provider Gen: Elderly, F, WD/WN, [place], NAD, A&O x3 HEENT: Normocephalic, atraumatic, conjunctivae moist, sclerae anicteric, mucous membranes moist dry Lung: Clear to Auscultation bilaterally, no wheezes/rales/rhonchi on 2 L via NC Heart: Regular rate, regular rhythm, no murmurs, rubs, or gallops Abdomen: Soft, NT, ND +BS x 4 Extremities: No edema Skin: Warm, no rash, negative turgor. Principal Diagnosis weakness, anemia, poss. GI bleed mild acute on chronic diastolic HF Discharge Exam Constitutional: no acute distress obese, elderly F in NAD, on suppl. O2, chronically ill appearing Respiratory: Auscultation: + diminished lung sounds (BL) and + minimal crackles (BL bases) Cardiovascular: Abdomen: Rate/Rhythm: regular rate and regular rhythm Vessels: normal peripheral pulses Extremities: no edema soft, nontender Skin: no rashes, warm and dry Neurologic: awake, alert, speech fluent, moves extremities Psychiatric: A+Ox3, euthymic affect Discharge Data Allergies Allergy/AdvReac Type Severity Reaction Status Date / Time COVID-19 vacc, bv (Orig, AdvReac Intermediate Verified 01/03/25 11:11 Omicron BA.4/5) (Pfizer) [From Pfizer COVID Bival(12y up)(PF)] oxycodone AdvReac Intermediate OVER Verified 01/03/25 11:11 SEDATED Consultations 01/03/25 12:02 ED Decision to Admit Stat 01/03/25 13:34 Consult Gastroenterology Routine Procedures Performed Operation Date: 01/04/25 18:20 Actual Procedures p Esophagogastroduodenoscopy - Gilberto Bright MD s Colonoscopy Polypectomy - Gilberto Bright MD Ordered Studies 01/03/25 08:50 CT head/brain wo con Stat IMPRESSION: 1. No acute intracranial findings. No change in appearance of the brain. 2. No calvarial fractures. Hospital Course (1) Fall: (2) Iron deficiency anemia: (3) Diabetes mellitus, type II: Plan 84-year-old female who has significant past medical history of insulin-dependent T2DM, diabetic polyneuropathy, CKD stage IIIb, HTN, HLD, chronic diastolic CHF, CAD, history of AAA and GERD who presents to ED secondary to fall and generalized weakness prior to arrival. Fall Generalized weakness due to poor oral intake and prepping for colonoscopy (2 day prep) Not true syncope, pt generally felt weak when trying to stand at bedside and went down on her right side No acute traumatic findings noted on CT head, pelvis XR Fall precautions PT/OT evaluations - recommending home with home health Anemia, possible GI bleed GI consulted s/p EGD and colonoscopy on 01/04 EGD unremarkable Colonoscopy - several polyps removed, diverticulosis. Pathology - tubular adenomas. Per GI likely resolved diverticular bleed. Hgb stable. Tolerating regular diet Daily PO PPI Hgb 12.1 -> 10.3 (suspect hemoconcentrated in setting of poor intake) -> 10.7 (stable) Iron level 40 Acute on Chronic Diastolic CHF 01/05: Noted to have crackles on exam and continued O2 requirement small dose Lasix IV given Echo: EF 55-60%, grade I diastolic dysfunction, trace MR, trace TR Pt not on GDMT, only on HCTZ as outpt Per previous record review - in the past was on coreg, lisinopril also previously on Lasix 20mg daily however discontinued in favor of HCTZ in 2021 by nephrology due to history of calcium oxalate kidney stones. Also previously on lisinopril however discontinued in the setting of VALERIY and hyperkalemia. Unclear why not on coreg however noted pt was on small dose metoprolol succinate after DC in September Resumed metoprolol - follow up w/ outpt providers - PCP/ cardiology NSVT 01/04: Alerted by RN of 11 beat vtach around 10:52AM, asymptomatic Giving Mag and K to keep >2, >4 respectively Echo: EF 55-60%, grade I diastolic dysfunction, trace MR, trace TR Had another 6 beat run of V-tach on 01/06, asymptomatic Mg+ mildly low 1.6 - giving 1gm IV and increased PO to BID, K+ 3.8 Patient previously on carvedilol, unclear discontinuation reason. Discussed with cardiology, will resume beta frederick - metoprolol Hypomagnesemia Mag 1.5 on admission replete and monitor Transaminitis Improved, labs on 01/05: AST 63, ALT 55, alk phos 92, T. Bili 0.5 Continue to monitor Hypoxia pt requiring 2L to maintain O2 > 92% On admission CXR stable CHF/atelectasis, no acute abn Oxygen requirement in the past - review of documentation mentions patient required 2L continued on discharge last admission, states she is no longer using at home Encourage incentive spirometry 2 step completed - patient requires 2L continuous currently 96% on 2L of suppl. O2 IDDM, T2 Lantus/novolog sliding scale hold metformin, jardiance, ozempic Hgb a1c 7.4 HTN HLD On HCTZ and statin as outpt Resume HCTZ on DC DVT ppx: SCDS DNR/DNI PCP: Dr. House Total Time Total Time Spent Total Time Spent (In Minutes): 40 Discharge Plan Discharge Items Patient Disposition: Home - Home Health Services Reason For Visit: SYNCOPE Discharge Diagnosis: weakness, anemia, poss. GI bleed mild acute on chronic diastolic HF Condition on Discharge: Fair Activity: Per Instructions section Non-emergency contact: Primary Care Provider, Specialist and Grant Officer Call non-emergency contact if: you have any medication questions and your symptoms worsen Follow-up/Referrals: Case House MD [Primary Care Provider] - (Date & Time 01/11/2025 1:40 PM Provider: Marcos Garza MD [facility], [facility] ) Diet: Carb Consistent or DM2, Heart Healthy and Low Sodium (2gm) Addtl Attending Provider Instructions: Follow up with your primary care physician within 1 week. The appointment was scheduled for you for January 11, 2025. Take metoprolol 12.5 mg daily - discuss this with your primary care physician. Use suppl. oxygen as prescribed. Addtl [employer] Provider Instructions: Call your Primary Care doctor if any of the following symptoms or problems start or get worse: * Shortness of breath or difficulty breathing * Wake up at night short of breath * Chest pain * Cough * Swelling of your hands, feet, or legs * More fatigued or tired with your normal activity * Palpitations - sudden fast heart beats WEIGHT * Weigh yourself every morning after using the bathroom. * Use the same scale. * Wear the same amount of clothing. * Write your weight down on a chart. * Call your Primary Care doctor if you gain more than 2-3 pounds in 1-2 days. MEDICATIONS * Use this discharge instruction sheet for medication instructions. * Take your medications at the time your doctor ordered. * Do not skip a dose of your medicines. * If you miss a dose of medicine, take it as soon as possible, but DO NOT DOUBLE A DOSE. * Read your medicine information when you get home. * Know all of the side effects of your medicine. If in doubt, ask your pharmacist * Call your Primary Care doctor's office if you have any side effects. * Be sure all of your doctors know what medicine and herbs you take (including cold, flu, and herbal medicine). Take the following with you to your follow-up doctor appointments: * Weight Chart * Medication List * List of questions Do not drink excessive alcohol, beer or wine. Pending Studies at Discharge: No Stand-Alone Forms: My [facility], Smoking Cessation Medications and DC Order Prescriptions: New metoprolol succinate 25 mg tablet extended release 24 hr 12.5 mg PO DAILY Qty: 30 0RF Continued omega-3 fatty acids 1,000 mg Capsule 2,000 mg PO QAM Qty: 0 omeprazole 20 mg Tablet,Delayed Release (Dr/Ec) 20 mg PO DAILYBB Qty: 0 coenzyme Q10 100 mg Capsule 100 mg PO QAM Qty: 0 atorvastatin 40 mg Tablet 40 mg PO HS Qty: 0 dicyclomine 10 mg Capsule 10 mg PO TID Qty: 0 lorazepam 0.5 mg tablet 0.5 mg PO TID PRN (Reason: Anxiety) pregabalin 150 mg capsule 150 mg PO TID metformin 750 mg tablet extended release 24 hr 750 mg PO [facility] Rx Instructions: Currently on hold as pt has procedure scheduled for 01/04/25. Original Directions: 750mg by mouth twice daily magnesium 250 mg Tablet 250 mg PO QAM hydrochlorothiazide 25 mg tablet 25 mg PO QAM Excedrin Extra Strength 250-250-65 mg Tablet 1 tab PO Q6H PRN (Reason: Pain) Jardiance 10 mg tablet 10 mg PO QAM Rx Instructions: Currently on hold as pt has procedure scheduled for 01/04/25. Original Directions: 10mg by mouth daily cyanocobalamin (vitamin B-12) [Vitamin B-12] 500 mcg Tablet 500 mcg PO DAILY vitamin B complex Tablet 1 tab PO QAM insulin glargine [Lantus Solostar U-100 Insulin] 100 unit/mL (3 mL) insulin pen 36 unit subcut QAM Ozempic 2 mg/dose (8 mg/3 mL) pen injector 2 mg subcut WK Rx Instructions: Currently on hold as pt has procedure scheduled for 01/04/25. Original Directions: 2mg IM every Friday mirabegron [Myrbetriq] 25 mg tablet extended release 24 hr 25 mg PO QAM methimazole 10 mg tablet 10 mg PO QAM Rx Instructions: take with food valerian root 500 mg Capsule 500 mg PO HS Discharge Orders: Discharge Order (Routine); Ordered 01/07/25 Ordered By: Mono Gonsales/Other Patient Handouts: Metoprolol Extended Release Oral Tablet, Heart Failure Flare Up Signs, Managing Type 2 Diabetes, Diverticulosis and Diverticulitis Admission Data Admit Date/Time: 01/03/25 12:07 Attending Provider: Mono Locke Admit Provider: Niko Ann Primary Care Provider: Case House Other Providers: Niko Ann; Gilberto Bright I; [facility]; [facility] Other Interventions: Discharge Summary Assessment (RN) Last Done: 01/04/25 17:39
[2025-01-07 14:40] VITALS: BP 111/66; PULSE 89
== END 2025-01-07 14:40 | disposition home health service (06) | DRG 377 ==
LOC: ED 08:33 → 2N 12:07 → SUATTDRO 12:07 → 2N 13:10